=== PATIENT | female | born 1935 | race Caucasian/White ===

== ENCOUNTER 2017-08-14 22:20 | Inpatient (IN) | payer OTHER, MEDICARE ==
[~2017-08-14] VITALS: Ht 157.5 cm; Wt 55.0 kg
[~2017-08-14 22:20] MED LIST: ASPI81 PO; CHLO25CA PO; FERR324T4 PO; PRIN20TA2
[2017-08-14 22:24] VITALS: TEMP 98.6
[2017-08-14] MEDS ORDERED: ETOMIDATE 40 MG/20 ML VIAL ONE ×2 (22:38→22:39)
[2017-08-14] MEDS ORDERED: SUCCINYLCHOLINE CHLORIDE 200 MG/10 ML VIAL ONE (22:38)
[2017-08-14 22:40] VITALS: BP 101/55; PULSE 106; RESP 18; TEMP 100.2
--- NOTE | 2017-08-14 22:47 | PD ---
HPI Chief Complaint: Altered Mental Status Time Seen by Provider: 22:32 Travel History International Travel<30 days: No Contact w/Intl Traveler<30days: No Traveled to known affect area: No History of Present Illness HPI Apparently daughter went out of town for a few days and when she returned from mother laying on the bed with a urine and feces all around her. Patient is too obtunded to answer any questions currently. Per review of chart patient has a history of hypertension EtOH abuse and has had a hysterectomy and appendectomy. PFSH Past Medical History Arthritis: Yes Anxiety: Yes Diminished Hearing: No Hypertension: Yes Immunizations Current: No Past Surgical History Abdominal Surgery: Yes (COLON SX) Appendectomy: Yes Eye Surgery: Yes (CATARACT SX) Genitourinary Surgery: Yes (colon resection post diverticulitis ) Gynecologic Surgery: Yes (HYSTERECTOMY) Hysterectomy: Yes (75) Joint Replacement: No Pacemaker: No Other Surgery: Yes (breast augmentation 73 , 04) Social History Alcohol Use: Yes Tobacco Use: No Substance Use: No Allergies-Medications (Allergen,Severity, Reaction): Coded Allergies: No Known Allergies (Verified Adverse Reaction, Unknown, 08/14/17) Reported Meds & Prescriptions Reported Meds & Active Scripts Active Reported Ferrous Sulfate 325 Mg Tab 325 Mg PO BIDPC Librium (Chlordiazepoxide) 25 Mg Cap 25 Mg PO TID Aspirin 81 Mg Tab 81 Mg PO DAILY Prinivil (Lisinopril) 20 Mg Tab 20 DAILY Review of Systems ROS Limitations: Clinical Condition, Altered Mental Status Physical Exam Exam Limitations: Clinical Condition, Altered Mental Status Narrative GENERAL: SKIN: Warm and dry. HEAD: Atraumatic. Normocephalic. EYES: Pupils equal and round. No scleral icterus. No injection or drainage. ENT: No nasal bleeding or discharge. Mucous membranes pink and moist. NECK: Trachea midline. No JVD. CARDIOVASCULAR: Regular rate and rhythm. RESPIRATORY: No accessory muscle use. Clear to auscultation. Breath sounds equal bilaterally. GASTROINTESTINAL: Abdomen soft, non-tender, nondistended. Hepatic and splenic margins not palpable. MUSCULOSKELETAL: Extremities without clubbing, cyanosis, or edema. No obvious deformities. NEUROLOGICAL: Patient opens eyes to verbal, localizes pain, and verbalize her name was Renetta GCS =12. Although the patient has decreased level of awareness and is somewhat obtunded the patient is able to answer questions if properly awakened with pain. Normal speech. Data Data Last Documented VS Vital Signs Date Time Temp Pulse Resp B/P (MAP) Pulse Ox O2 Delivery O2 Flow Rate FiO2 08/15/17 00:26 104 18 125/55 (78) 95 Room Air 08/14/17 22:40 100.2 Orders Orders Sepsis Workup Initiated (08/14/17 ) Electrocardiogram (08/14/17 22:32) Complete Blood Count With Diff (08/14/17 22:32) Comprehensive Metabolic Panel (08/14/17 22:32) Prothrombin Time / Inr (Pt) (08/14/17 22:32) Act Partial Throm Time (Ptt) (08/14/17 22:32) Lactic Acid Sepsis Protocol (08/14/17 22:32) Lipase (08/14/17 22:32) Ckmb (Isoenzyme) Profile (08/14/17 22:32) Troponin I (08/14/17 22:32) Urinalysis - C+S If Indicated (08/14/17 22:32) Blood Culture (08/14/17 22:32) Chest, Single Ap (08/14/17 22:32) Blood Glucose (08/14/17 22:32) Ecg Monitoring (08/14/17 22:32) Iv Access Insert/Monitor (08/14/17 22:32) Oximetry (08/14/17 22:32) Oxygen Administration (08/14/17 22:32) Ct Brain W/O Iv Contrast(Rout) (08/14/17 22:32) Etomidate Inj (Amidate Inj) (08/14/17 22:38) Succinylcholine Inj (Quelicin Inj) (08/14/17 22:38) Etomidate Inj (Amidate Inj) (08/14/17 22:39) Ammonia (08/14/17 22:51) Osmolality,Serum (08/14/17 22:51) Urine Culture (08/14/17 22:45) CKMB (08/14/17 22:45) CKMB% (08/14/17 22:45) Sodium Chlor 0.9% 1000 Ml Inj (Ns 1000 M (08/15/17 00:15) Ceftriaxone Inj (Rocephin Inj) (08/15/17 00:15) Metronidazole 500 Mg Inj (Flagyl 500 Mg (08/15/17 00:15) Drug Screen, Random Urine (08/15/17 01:07) Alcohol (Ethanol) (08/15/17 01:07) Salicylates (Aspirin) (08/15/17 01:07) Tylenol (Acetaminophen) (08/15/17 01:07) Labs Laboratory Tests Test 08/14/17 22:45 08/14/17 23:16 White Blood Count 10.2 TH/MM3 Red Blood Count 4.37 MIL/MM3 Hemoglobin 13.8 GM/DL Hematocrit 41.6 % Mean Corpuscular Volume 95.1 FL Mean Corpuscular Hemoglobin 31.7 PG Mean Corpuscular Hemoglobin Concent 33.3 % Red Cell Distribution Width 14.2 % Platelet Count 304 TH/MM3 Mean Platelet Volume 7.7 FL Neutrophils (%) (Auto) 91.3 % Lymphocytes (%) (Auto) 3.3 % Monocytes (%) (Auto) 5.3 % Eosinophils (%) (Auto) 0.0 % Basophils (%) (Auto) 0.1 % Neutrophils # (Auto) 9.3 TH/MM3 Lymphocytes # (Auto) 0.3 TH/MM3 Monocytes # (Auto) 0.5 TH/MM3 Eosinophils # (Auto) 0.0 TH/MM3 Basophils # (Auto) 0.0 TH/MM3 CBC Comment DIFF FINAL Differential Comment Prothrombin Time 11.8 SEC Prothromb Time International Ratio 1.2 RATIO Activated Partial Thromboplast Time 28.7 SEC Urine Color YELLOW Urine Turbidity HAZY Urine pH 5.0 Urine Specific [place] 1.007 Urine Protein TRACE mg/dL Urine Glucose (UA) NEG mg/dL Urine Ketones TRACE mg/dL Urine Occult Blood MOD Urine Nitrite NEG Urine Bilirubin NEG Urine Urobilinogen LESS THAN 2.0 MG/DL Urine Leukocyte Esterase NEG Urine RBC 2 /hpf Urine WBC 1 /hpf Urine Squamous Epithelial Cells <1 /hpf Urine Amorphous Sediment RARE Urine Bacteria RARE /hpf Urine Hyaline Casts 7 /lpf Urine Mucus FEW /lpf Microscopic Urinalysis Comment CATH-CULTURE IND Blood Urea Nitrogen 52 MG/DL Creatinine 3.39 MG/DL Random Glucose 177 MG/DL Total Protein 6.3 GM/DL Albumin 2.7 GM/DL Calcium Level 8.7 MG/DL Alkaline Phosphatase 84 U/L Aspartate Amino Transf (AST/SGOT) 118 U/L Alanine Aminotransferase (ALT/SGPT) 43 U/L Total Bilirubin 0.5 MG/DL Sodium Level 141 MEQ/L Potassium Level 5.1 MEQ/L Chloride Level 103 MEQ/L Carbon Dioxide Level 17.7 MEQ/L Anion Gap 20 MEQ/L Estimat Glomerular Filtration Rate 13 ML/MIN Lactic Acid Level 6.3 mmol/L Total Creatine Kinase 3855 U/L Creatine Kinase MB 113.6 NG/ML Creatine Kinase MB % 2.9 % Troponin I 0.21 NG/ML Lipase 34 U/L Serum Osmolality 317 MOSM/KG Ammonia 15 MCMOL/L [facility] Medical Decision Making Medical Screen Exam Complete: Yes Emergency Medical Condition: Yes Medical Record Reviewed: Yes Interpretation(s) EKG shows sinus tachycardia, 115 bpm, normal intervals, with some ST depressions versus the child some type of pattern on the lateral leads Differential Diagnosis Hepatic encephalopathy versus intracranial hemorrhage versus sepsis versus electrolyte abnormalities versus anemia versus atypical non-STEMI versus atypical STEMI Narrative Course CBC does not show any evidence of leukocytosis no anemia or platelet count however the neutrophils are elevated at 91% coagulation profile is within normal limits. Urinalysis shows mild evidence of a UTI. Additional information shown on the UA shows occult blood on the urine strip on the urine RBC of 2 which is consistent with rhabdo. Patient has evidence of renal insufficiency with a BUN of 52 and a creatinine of 3.39 GFR 13 random glucose of 177 serum osmolality is 317 lactic acid is 6.3 LFTs AST is 118 ALT is 43 patient's total CPK is 3855 ammonia is negative CK-MB percent is 2.9 troponin percent is 0.21 with normal lipase. Critical Care Narrative CRITICAL CARE NOTE: With evaluation of the patient, labs, EKG, receipt of radiologic studies, administration of medications, reevaluation the patient and discussion of the patient with the admitting physicians, the total critical care time was [30] minutes. Time to perform other separately billable procedures was not included in the critical care time. Diagnosis Primary Impression: AMS Additional Impressions: Acute renal failure Early rhabdoMYOLYSIS Non-STEMI Lactic acidosis Admitting Information Admitting Physician Requests: Admit Toñito Huerta MD Aug 14, 2017 22:47
--- NOTE | 2017-08-14 22:54 | RADRPT ---
EXAM DATE/TIME: 08/14/2017 22:52 [facility] COMPARISON: No previous studies available for comparison. INDICATIONS : Short of breath MEDICAL HISTORY : None. SURGICAL HISTORY : None. ENCOUNTER: Initial ACUITY: 1 day PAIN SCORE: Non-responsive. LOCATION: chest FINDINGS: A single view of the chest demonstrates mild basilar density, probably atelectasis. No effusion. No p neumothorax. CONCLUSION: 1. Minimal basilar atelectasis. No effusion or pneumothorax. Esau Martell MD on August 14, 2017 at 22:52 Board Certified Radiologist. This report was verified electronically.
--- NOTE | 2017-08-14 23:13 | RADRPT ---
EXAM DATE/TIME: 08/14/2017 22:54 [facility] COMPARISON: CT BRAIN W/O CONTRAST, August 19, 2009, 21:22. INDICATIONS : Altered mental status. RADIATION DOSE: 56.35 CTDIvol (mGy) MEDICAL HISTORY : Non-responsive. SURGICAL HISTORY : Non-responsive. ENCOUNTER: Initial ACUITY: 1 day PAIN SCALE: Non-responsive LOCATION: cranial TECHNIQUE: Multiple contiguous axial images were obtained of the head. Using automated exposure control and adj ustment of the mA and/or kV according to patient size, radiation dose was kept as low as reasonably a chievable to obtain optimal diagnostic quality images. DICOM format image data is available electro nically for review and comparison. FINDINGS: There is no evidence for intracranial hemorrhage, mass effect, mass lesions, edema, or extra-axial fl uid collections. The visualized bony structures appear intact. The ventricles are normal size for t he patient's age. There are no signs of acute infarction for technique. Slight degree of brain atrop hy is seen. Slight periventricular white matter changes are seen nonspecific mostly consistent with c hronic small vessel ischemic changes. CONCLUSION: Unremarkable study. Josseline Villagomez MD on August 14, 2017 at 23:11 Board Certified Radiologist. This report was verified electronically.
[2017-08-14 23:19] LABS: INTERNATIONAL NORMALIZED RATIO 1.2 RATIO; PROTHROMBIN TIME - PATIENT 11.8 SEC (9.8-11.6)
[2017-08-14 23:22] LABS: AMORPHOUS SEDIMENT, URINE RARE; AUTOMATED NEUTROPHIL # 9.3 TH/MM3 (1.8-7.7); BACTERIA, URINE RARE /hpf; BASOPHIL % 0.1 % (0.0-2.0); BILIRUBIN, URINE NEG (NEG); BLOOD, URINE MOD (NEG); GLUCOSE,URINE NEG (NEG); HEMATOCRIT 41.6 % (35.0-46.0); HEMOGLOBIN 13.8 GM/DL (11.6-15.3); HYALINE CAST, URINE 7 /lpf (RARE); KETONE, URINE TRACE mg/dL (NEG); LYMPH % 3.3 % (9.0-44.0); LYMPHOCYTE # 0.3 TH/MM3 (1.0-4.8); MEAN CELL VOLUME 95.1 FL (80.0-100.0); MEAN CORPUSCULAR HEMOGLOBIN 31.7 PG (27.0-34.0); MEAN CORPUSCULAR HGB CONC 33.3 % (32.0-36.0); MEAN PLATELET VOLUME 7.7 FL (7.0-11.0); MONO % 5.3 % (0.0-8.0); MONOCYTE # 0.5 TH/MM3 (0-0.9); MUCUS URINE FEW /lpf (OCC); NEUT % 91.3 % (16.0-70.0); NITRITE,URINE NEG (NEG); PLATELET COUNT 304 TH/MM3 (150-450); RED BLOOD COUNT 4.37 MIL/MM3 (4.00-5.30); RED CELL DISTRIBUTION WIDTH 14.2 % (11.6-17.2); SQUAMOUS EPITHELIAL CELL URINE <1 /hpf (0-5); URINE COLOR YELLOW (YELLW/STRAW); URINE LEUKOCYTE ESTERASE NEG (NEG); WHITE BLOOD COUNT 10.2 TH/MM3 (4.0-11.0)
[2017-08-14 23:30] LABS: ALBUMIN 2.7 GM/DL (3.4-5.0); AST (GOT) 118 U/L (15-37); BICARBONATE 17.7 MEQ/L (21.0-32.0); BLOOD UREA NITROGEN 52 MG/DL (7-18); CALCIUM 8.7 MG/DL (8.5-10.1); CHLORIDE 103 MEQ/L (98-107); CREATININE 3.39 MG/DL (0.50-1.00); GLOMERULAR FILTRATION RATE 13 ML/MIN (>89); GLUCOSE,RANDOM 177 MG/DL (74-106); SODIUM (NA) 141 MEQ/L (136-145)
[2017-08-14 23:31] LABS: ALT (GPT) 43 U/L (10-53)
[2017-08-14 23:35] LABS: LACTIC ACID SEPSIS PROTOCOL 6.3 mmol/L (0.4-2.0)
[2017-08-14 23:45] LABS: ALKALINE PHOSPHATASE 84 U/L (45-117); TOTAL BILIRUBIN ADULT 0.5 MG/DL (0.2-1.0); TOTAL PROTEIN 6.3 GM/DL (6.4-8.2); TROPONIN I 0.21 NG/ML (0.02-0.05)
[2017-08-15] VITALS (19 sets, daily range): BP systolic 72–141; BP diastolic 49–66; PULSE 99–117; RESP 16–38; TEMP 97.7–98.7; O2SAT 85–100
[2017-08-15] MEDS ORDERED: cefTRIAXone INJ 1,000 MG in SODIUM CHLORIDE 0.9% INJ 100 ML IV ONE ×2 (00:15→04:00)
[2017-08-15] MEDS ORDERED: metroNIDAZOLE 500 MG INJ 100 ML IV ONE (00:15)
[2017-08-15] MEDS ORDERED: SODIUM CHLOR 0.9% 1000 ML INJ 1,000 ML IV ONE ×4 (00:15→06:00)
[2017-08-15 01:57] LABS: ACETAMINOPHEN LESS THAN 2.0 MCG/ML (10.0-30.0)
[2017-08-15] MEDS ORDERED: SODIUM CHLOR 0.9% 1000 ML INJ 1,000 ML IV SCH (01:58)
[2017-08-15] MEDS ORDERED: THIAMINE HCL 200 MG/2 ML VIAL IM ONE (02:00)
[2017-08-15] MEDS ORDERED: NALOXONE HCL 0.4 MG/ML AMP IV PUSH PRN (02:00)
[2017-08-15] MEDS ORDERED: Vancomycin Consult Pharmacy 1 EA OTHER SCH (02:15)
--- NOTE | 2017-08-15 02:23 | HHI.HP ---
[facility] Unknown Admission Diagnosis AMS,RENAL FAILURE, EARLY RHABDO, NONSTEMI Diagnoses: Travel History International Travel<30 Days: No Contact w/Intl Traveler <30 Da: No Traveled to Known Affected Are: No History of Present Illness History from patient's daughter at the bedside, ER physician, interfere medical records. Patient's daughter went away for work out of town about 4 days ago. Usually patient lives with his daughter. She stated that patient was at her baseline on that day. Today when she came back from her trip, she found her mother in her bed, soaked in her feces. To the daughter, it looked as though the patient has been there for at least 1-2 days. Therefore she called ambulance. Daughter reported that the patient patient spoke to her although daughter on Friday and also on Friday to her son. Both times, patient was found in drank. Her 2 daughters at the bedside stated that this is patient's normal status. Whenever her daughter is out of town, she would binge drink. She was not complaining of any particular symptoms when she was on the phone with her son yesterday. Daughter also reported that patient usually gets copious diarrhea whenever she binge drinks. She does have history of irritable bowel syndrome per prior records on EMR. Patient's daughter stated that patient was prescribed Ambien about 3 weeks back. She however does not take it on a regular basis. She fears that the mother may have taken Ambien together with alcohol as well while she was away. Patient is also on Flexeril occasionally at home. She does have history of chronic neck pain and chronic sciatica. Possible sleep apnea per daughter as well. Patient is In the emergency room, patient is noted to be quite lethargic, not able to give any history at all. She is also snoring. However she is able to look into with great afterwards. She is moving her lower extremities spontaneously. Review of Systems ROS Limitations: Altered Mental Status (review of system is unreliable, only available from family), Poor Historian Except as stated in HPI: all other systems reviewed are Neg Past Family Social History Past Medical History htn sleep apnea suspected severe cramping in legs- chronic years ago was told maybe thyroid problem chronic bowel incontinence Past Surgical History rectal prolpase sx cholecystectomy hysterectomy tummy tuck breast implants - one did rupture face lift Allergies: Coded Allergies: No Known Allergies (Verified Allergy, Unknown, 08/15/17) Family History daugther- sleep apnea, thyroid nodules half sister- aneurysm brain another half another sister- mental health Social History quit smoking >34yrs ago etoh abuse - binge drinking no drugs live with daughter Physical Exam Vital Signs Vital Signs Date Time Temp Pulse Resp B/P (MAP) Pulse Ox O2 Delivery O2 Flow Rate FiO2 08/15/17 00:26 104 18 125/55 (78) 95 Room Air 08/14/17 22:40 100.2 106 18 101/55 (70) 08/14/17 22:24 98.6 Physical Exam GENERAL: This is an elderly lady, awake but unresponsive. Loud snoring. Grimaces to painful stimuli. Spontaneously moving her lower extremities. Hard of hearing. SKIN: No rashes, ecchymoses or lesions. Cool and dry. HEAD: Atraumatic. Normocephalic. No temporal or scalp tenderness. EYES: . No scleral icterus. No injection or drainage. ENT: Nose without bleeding, purulent drainage or septal hematoma.Airway patent. NECK: Trachea midline. No JVD. Stiff neck. But does have history of cervical stenosis and chronic pain. CARDIOVASCULAR: Regular rate and rhythm without murmurs, gallops, or rubs. RESPIRATORY: Clear to auscultation. Breath sounds equal bilaterally. No wheezes , rales, or rhonchi. GASTROINTESTINAL: Abdomen soft, non-tender, nondistended. No guarding. : Doe catheter in place. Drain a only about 20 cc of concentrated urine. MUSCULOSKELETAL: Extremities without clubbing, cyanosis, or edema. No calf asymmetry. NEUROLOGICAL: Lethargic, nonverbal. However looks at the interviewer when asked with great effort once in a while. Also once in a while with say short words such as "diarrhea" Laboratory Laboratory Tests Test 08/14/17 22:45 08/14/17 23:16 08/15/17 01:26 White Blood Count 10.2 Red Blood Count 4.37 Hemoglobin 13.8 Hematocrit 41.6 Mean Corpuscular Volume 95.1 Mean Corpuscular Hemoglobin 31.7 Mean Corpuscular Hemoglobin Concent 33.3 Red Cell Distribution Width 14.2 Platelet Count 304 Mean Platelet Volume 7.7 Neutrophils (%) (Auto) 91.3 Lymphocytes (%) (Auto) 3.3 Monocytes (%) (Auto) 5.3 Eosinophils (%) (Auto) 0.0 Basophils (%) (Auto) 0.1 Neutrophils # (Auto) 9.3 Lymphocytes # (Auto) 0.3 Monocytes # (Auto) 0.5 Eosinophils # (Auto) 0.0 Basophils # (Auto) 0.0 CBC Comment DIFF FINAL Differential Comment Prothrombin Time 11.8 Prothromb Time International Ratio 1.2 Activated Partial Thromboplast Time 28.7 Urine Color YELLOW Urine Turbidity HAZY Urine pH 5.0 Urine Specific [place] 1.007 Urine Protein TRACE Urine Glucose (UA) NEG Urine Ketones TRACE Urine Occult Blood MOD Urine Nitrite NEG Urine Bilirubin NEG Urine Urobilinogen LESS THAN 2.0 Urine Leukocyte Esterase NEG Urine RBC 2 Urine WBC 1 Urine Squamous Epithelial Cells <1 Urine Amorphous Sediment RARE Urine Bacteria RARE Urine Hyaline Casts 7 Urine Mucus FEW Microscopic Urinalysis Comment CATH-CULTURE IND Blood Urea Nitrogen 52 Creatinine 3.39 Random Glucose 177 Total Protein 6.3 Albumin 2.7 Calcium Level 8.7 Alkaline Phosphatase 84 Aspartate Amino Transf (AST/SGOT) 118 Alanine Aminotransferase (ALT/SGPT) 43 Total Bilirubin 0.5 Sodium Level 141 Potassium Level 5.1 Chloride Level 103 Carbon Dioxide Level 17.7 Anion Gap 20 Estimat Glomerular Filtration Rate 13 Lactic Acid Level 6.3 4.6 Total Creatine Kinase 3855 Creatine Kinase MB 113.6 Creatine Kinase MB % 2.9 Troponin I 0.21 Lipase 34 Salicylates Level 2.7 Urine Opiates Screen NEG Acetaminophen Level LESS THAN 2.0 Urine Barbiturates Screen NEG Urine Amphetamines Screen NEG Urine Benzodiazepines Screen NEG Urine Cocaine Screen NEG Urine Cannabinoids Screen NEG Ethyl Alcohol Level LESS THAN 3 Serum Osmolality 317 Ammonia 15 Date/Time Source Procedure Growth Status 08/14/17 22:45 Blood Peripheral Aerobic Blood Culture Pending Received 08/14/17 22:45 Blood Peripheral Anaerobic Blood Culture Pending Received 08/14/17 22:45 Urine Catheterized Urine Urine Culture Pending Received Result Diagram: 08/14/17224408/14/17 2245 Imaging Last 48 hours Impressions Chest X-Ray 08/15/17 0000 Signed Impressions: Service Date/Time: Tuesday, August 15, 2017 06:42 - CONCLUSION: There is prominence of the perivascular markings with crowding of the bronchovascular markings may be due to expiratory state of this radiograph, however slight interstitial process is not excluded. Josseline Villagomez MD Head CT 08/14/[id number] Signed Impressions: Service Date/Time: July 22:54 - CONCLUSION: Unremarkable study. Josseline Villagomez MD Chest X-Ray 08/14/[id number] Signed Impressions: Service Date/Time: July 22:52 - CONCLUSION: 1. Minimal basilar atelectasis. No effusion or pneumothorax. Esau Martell MD Caprini VTE Risk Assessment Caprini VTE Risk Assessment: Mod/High Risk (score >= 2) Caprini Risk Assessment Model Point Value = 1 Point Value = 2 Point Value = 3 Point Value = 5 Age 41-60 Minor surgery BMI > 25 kg/m2 Swollen legs Varicose veins or History of unexplained or recurrent spontaneous Oral contraceptives or hormone replacement Sepsis (< 1 month) Serious lung disease, including pneumonia (< 1 month) Abnormal pulmonary function Acute myocardial infarction Congestive heart failure (< 1 month) History of inflammatory bowel disease Medical patient at bed rest Age 61-74 Arthroscopic surgery Major open surgery (> 45 min) Laparoscopic surgery (> 45 min) Malignancy Confined to bed (> 72 hours) Immobilizing plaster cast Central venous access Age >= 75 History of VTE Family history of VTE Factor V Leiden Prothrombin [id number] Lupus anticoagulant Anticardiolipin antibodies Elevated serum homocysteine Heparin-induced thrombocytopenia Other congenital or acquired thrombophilia Stroke (< 1 month) Elective arthroplasty Hip, pelvis, or leg fracture Acute spinal cord injury (< 1 month) Prophylaxis Regimen Total Risk Factor Score Risk Level Prophylaxis Regimen 0-1 Low Early ambulation 2 Moderate Order ONE of the following: *Sequential Compression Device (SCD) *Heparin 5000 units SQ BID 3-4 Higher Order ONE of the following medications: *Heparin 5000 units SQ TID *Enoxaparin/Lovenox 40 mg SQ daily (WT < 150 kg, CrCl > 30 mL/min) *Enoxaparin/Lovenox 30 mg SQ daily (WT < 150 kg, CrCl > 10-29 mL/min) *Enoxaparin/Lovenox 30 mg SQ BID (WT < 150 kg, CrCl > 30 mL/min) AND/OR *Sequential Compression Device (SCD) 5 or more Highest Order ONE of the following medications: *Heparin 5000 units SQ TID (Preferred with Epidurals) *Enoxaparin/Lovenox 40 mg SQ daily (WT < 150 kg, CrCl > 30 mL/min) *Enoxaparin/Lovenox 30 mg SQ daily (WT < 150 kg, CrCl > 10-29 mL/min) *Enoxaparin/Lovenox 30 mg SQ BID (WT < 150 kg, CrCl > 30 mL/min) AND *Sequential Compression Device (SCD) Assessment and Plan Assessment and Plan 82 years old female who came in with altered mental status. Binge drinking at home for past few days. Found by family members on her bed unresponsive. Found to have acute renal failure, rhabdomyolysis, dehydration. Diarrhea in ER. However it was maintaining blood pressure in ER. She received 2.5 L fluids total in ER. Was saturating 98% on room air at the time of my exam in ER. Hospital course complicated by patient becoming hypotensive while on medical floor in view of constant diarrhea since arrival, with hypoxia of 88% on 4 L nasal cannula on medical floor. Impression: Severe dehydration Acute renal failure secondary to rhabdo and dehydration Rhabdomyolysis possible underlying sepsis possible meningitis- though clinical suspicion is low diarrhea- r/o infection lactic acid acidosis due to dehydration/rhabdo questionable unwitnessed seizure in alcoholic leading to lactic acid acidosis sudden hypoxia while on medical floor- possible PE given pt is staying home binge drinking. lying in bed past 2 days or so hypotension from fluid loss- from constant diarrhea Plan: fluid resuscitation . Patient received 2.5 L normal saline while in ER. vanco/ampi/ceftriaxone meningitic doses. Patient has neck rigidity, altered mental status. However she does have history of cervical spine degenerative disease with chronic neck pain as well. We'll follow urine culture results. Likely this would be the source. Bicarbonate drip started at 42 cc per hour while receiving bolus normal saline fluids. ABG done. Respiratory alkalosis with metabolic acidosis. Thiamine before dextrose administration. I was later called by patient's nurse around 520AM as patient's blood pressure dropped while she was on medical floor CIC. Her O2 saturation also had dropped all of a sudden. Therefore transferred to inpatient status to ICU. Give additional 2 L normal saline bolus in ICU. Hydrocortisone 100 mg IV every 8 hours. ABG stat. Reviewed. Remains to be metabolic acidosis with respiratory alkalosis. PO2 220s. This was done on nonrebreather. Taper off oxygen. chest x-ray stat. Personally reviewed. No evidence of significant pulmonary congestion although some gentle intravenous crowding is noted. Hydrocortisone 100 mg IV every 8 hours. Start pressor with neosynepinephrine Check Doe to make sure there is no blockage. Patient's abdomen is also noted to be distended now which was not really present in ER. Start heparin drip per PE protocol. Question whether patient sudden hypoxia and hypotension with tachycardia could be secondary to PE as patient is likely bedbound for past 1 or 2 days. Seizure precautions. Withdrawal precautions. DVT prophylaxis on heparin drip. GI prophylaxis on pantoprazole. Critical care time 1 hour. Discussed Condition With ER physician,, hot die picker Dr. Arellano and Dr Youngblood, patient's 2 daughters at the bedside Physician Certification 2 Midnight Certification Type: Admission for Inpatient Services Order for Inpatient Services The services are ordered in accordance with Medicare regulations or non- Medicare payer requirements, as applicable. In the case of services not specified as inpatient-only, they are appropriately provided as inpatient services in accordance with the 2-midnight benchmark. Estimated LOS (days): 5 days is the estimated time the patient will need to remain in the hospital, assuming treatment plan goals are met and no additional complications. Post-Hospital Plan: Not yet determined Nenita Santillan MD Aug 15, 2017 02:23
[2017-08-15] MEDS ORDERED: VANCOMYCIN 1,000 MG/NS 250 ML IV ONE ×2 (03:00)
[2017-08-15] MEDS ORDERED: PIPERACIL-TAZO 2.25 GM PREMIX 50 ML IV SCH (03:00)
[2017-08-15] MEDS ORDERED: AMPICILLIN INJ 2,000 MG in SODIUM CHLORIDE 0.9% INJ 100 ML IV SCH (03:00)
[2017-08-15] MEDS: SODIUM BICARBONATE 8.4% INJ 100 MEQ in DEXTROSE 5% IN WATE 1000ML INJ 1,000 ML IV SCH ×4 (04:49→18:16)
[2017-08-15] MEDS ORDERED: ATROPINE SULFATE 1 MG/10 ML SYRINGE ONE (05:34)
[2017-08-15] MEDS ORDERED: EPINEPHrine HCL (1:10,000) 1 MG/10 ML SYRINGE ONE (05:35)
[2017-08-15] MEDS ORDERED: HEPARIN-D5W 25,000 U/250 ML 250 ML IV PRN (06:00)
[2017-08-15] MEDS ORDERED: SODIUM BICARBONATE 8.4% INJ 50 MEQ/50 ML SYR IV PUSH ONE (06:00)
[2017-08-15] MEDS ORDERED: HEPARIN SODIUM - IV 10,000 UNITS/10 ML VIAL IV PUSH ONE (06:00)
[2017-08-15] MEDS ORDERED: HYDROCORTISONE SOD SUCCINATE 100 MG VIAL IV PUSH SCH (06:00)
[2017-08-15] MEDS ORDERED: NOREPINEPHRINE-DEXTROSE DRIP 250 ML IV PRN (06:00)
[2017-08-15] MEDS ORDERED: TERBUTALINE INJ 1 MG/ML AMP SQ PRN ×3 (06:00→09:00)
[2017-08-15] MEDS ORDERED: CHLORHEXIDINE GLUCONATE 2 % 1 PACK (2 CLOTHS)(extra cloths) TOPICAL PRN (06:15)
[2017-08-15] MEDS ORDERED: LORazepam 1 MG TAB PO PRN (06:30)
[2017-08-15] MEDS ORDERED: LORazepam 2 MG TAB PO PRN (06:30)
[2017-08-15] MEDS ORDERED: FLUMAZENIL 0.5 MG/5 ML VIAL IV PUSH PRN (06:30)
[2017-08-15] MEDS ORDERED: LORazepam 2 MG/ML VIAL IV PUSH PRN ×4 (06:30)
--- NOTE | 2017-08-15 06:58 | RADRPT ---
EXAM DATE/TIME: 08/15/2017 06:42 [facility] COMPARISON: CHEST SINGLE AP, August 14, 2017, 22:52. INDICATIONS : Shortness of breath. MEDICAL HISTORY : None. SURGICAL HISTORY : None. ENCOUNTER: Subsequent ACUITY: 2 days PAIN SCORE: Non-responsive. LOCATION: chest FINDINGS: Heart and mediastinum are unremarkable for technique. There is prominence of the perivascular marking s with crowding of the bronchovascular markings may be due to expiratory state of this radiograph, ho wever slight interstitial process is not excluded. CONCLUSION: There is prominence of the perivascular markings with crowding of the bronchovascular markings may be due to expiratory state of this radiograph, however slight interstitial process is not excluded. Josseline Villagomez MD on August 15, 2017 at 6:56 Board Certified Radiologist. This report was verified electronically.
[2017-08-15] MEDS ORDERED: ETOMIDATE 40 MG/20 ML VIAL ONE (07:28)
[2017-08-15] MEDS ORDERED: ETOMIDATE 20 MG/10 ML VIAL IV PUSH ONE (07:30)
[2017-08-15] MEDS: NOREPINEPHRINE-DEXTROSE DRIP 250 ML IV PRN ×2 (07:30→13:46)
[2017-08-15 08:38] LABS: BASOPHIL % 0.1 % (0.0-2.0); HEMATOCRIT 39.6 % (35.0-46.0); HEMOGLOBIN 13.5 GM/DL (11.6-15.3); LYMPH % 5.2 % (9.0-44.0); LYMPHOCYTE # 0.4 TH/MM3 (1.0-4.8); MEAN CORPUSCULAR HEMOGLOBIN 32.3 PG (27.0-34.0); MEAN PLATELET VOLUME 7.5 FL (7.0-11.0); MONO % 3.4 % (0.0-8.0); MONOCYTE # 0.3 TH/MM3 (0-0.9); NEUT % 91.3 % (16.0-70.0); PLATELET COUNT 250 TH/MM3 (150-450); RED BLOOD COUNT 4.16 MIL/MM3 (4.00-5.30); RED CELL DISTRIBUTION WIDTH 13.9 % (11.6-17.2); WHITE BLOOD COUNT 7.7 TH/MM3 (4.0-11.0)
--- NOTE | 2017-08-15 08:46 | RADRPT ---
EXAM DATE/TIME: 08/15/2017 08:15 [place] COMPARISON: CHEST SINGLE AP, August 15, 2017, 6:42. INDICATIONS : ETT tube and central line placement. MEDICAL HISTORY : None. SURGICAL HISTORY : None. ENCOUNTER: Subsequent ACUITY: 1 day PAIN SCORE: Non-responsive. LOCATION: Bilateral chest FINDINGS: ETT approximately 4 cm above the carlos. Right IJ central line with tip in the atriocaval junction. M ild persistent left basilar airspace disease. Cardiomediastinal contours are stable. Remainder of the exam is unchanged. CONCLUSION: 1. ETT and right IJ central line in good position. No pneumothorax. 2. Stable mild left lower lung zone airspace disease, presumably atelectasis. Douglas Jean MD on August 15, 2017 at 8:44 Board Certified Radiologist. This report was verified electronically.
[2017-08-15 08:52] LABS: LACTIC ACID SEPSIS PROTOCOL 3.4 mmol/L (0.4-2.0)
[2017-08-15] MEDS ORDERED: THIAMINE INJ 100 MG in SODIUM CHLORIDE 0.9% INJ 100 ML IV SCH (09:00)
[2017-08-15 09:11] LABS: ALBUMIN 2.2 GM/DL (3.4-5.0); BANDS 48 % (0-6); BICARBONATE 19.2 MEQ/L (21.0-32.0); CREATININE 2.29 MG/DL (0.50-1.00); LYMPHOCYTES 3 % (9-44); MAGNESIUM 1.9 MG/DL (1.5-2.5); MONOCYTES 3 % (0-8); NEUTROPHIL # MANUAL DIFF 7.2 TH/MM3 (1.8-7.7); PHOSPHORUS 3.8 MG/DL (2.5-4.9); POLYS (SEG NEUTROPHILS) 46 % (16-70); TOTAL BILIRUBIN ADULT 0.4 MG/DL (0.2-1.0); TOTAL PROTEIN 5.2 GM/DL (6.4-8.2)
[2017-08-15] MEDS: metroNIDAZOLE 500 MG INJ 100 ML IV SCH ×3 (09:12→20:04)
[2017-08-15] MEDS: SODIUM CHLORIDE 0.9% FLUSH 10 ML FLUSH IV FLUSH SCH ×2 (09:13→20:04)
[2017-08-15] MEDS ORDERED: PHENYLEPHRINE INJ 40 MG in DEXTROSE 5% IN WATE 500 ML INJ 496 ML IV PRN ×2 (10:00)
--- NOTE | 2017-08-15 10:14 | PD.CONS ---
Consult Service Palliative Care . Consult Requested By Dr. Santillan . Primary Care Physician Unknown . Reason for Consultation a. To assist with evaluation and management of symptoms including: altered mental status, dyspnea, anxiety. b. To assist medical decision maker(s) with: better understanding of current medical conditions; weighing benefits/burdens of medical treatment options; making medical treatment decisions. . HPI History of Present Illness Ms. Olson is an 82 year old female with past medical history of hypertension, possible sleep apnea, chronic neck pain, sciatica, alcohol abuse, arthritis, chronic rectal prolapse with bowel incontinence and anxiety. Patient presented to [facility] ER on 08/14/17 when daughter arrived home to find patient laying on the bed covered in urine and feces. She was obtunded and 911 was called. Upon arrival to the ER: * VS - 100.2, HR 104, RR 18, BP 125/55, O2 sat 95% on room air. * WBC 10.2, hgb 13.8, hct 41.6, platelets 304, neutrophils 91.3% * PT 11.8, INR 1.2, PTT 28.7 * Urinalysis: + bacteria, mucus, culture pending. * BUN 52, creatinine 3.39, glucose 177, sodium 141, potassium 5.1, chloride 103 , GFR 13 * total protein 6.3, albumin 2.7 * Alk phos 84, AST 118, ALT 43, total bilirubin 0.5 * Lactic acid 6.3 * TCK 3855, CK-MB 113.6, CK-MB 2.9% * troponin 0.21 * lipase 34 * serum osmolality 317 * ammonia 15 * CT head - unremarkable * CXR - minimal basilar atelectasis, no effusion or pneumothorax Patient was admitted for severe dehydration. acute renal failure, rhabdomyolysis , lactic acidosis, possible UTI, sepsis. Overnight she developed tachycardia, hypotension and hypoxemia. She was transferred to ICU placed on pressor support. She was started on heparin drip per PE protocol. Machine Clothing Man was consulted for hypotension, septic shock. On non-rebreather with with oxygen saturation 90% and BP 79/50. Since admission she was intubated and placed on mech vent. Palliative care was consulted to assist with further clarification of treatment goals in this critically ill patient. Function/Cognitive Trajectory Patient was living at home with daughter prior o admission. 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 She drives and cares for herself. She was intentionally eating less to try to lose weight. . Review of Systems ROS Limitations: Intubated, Hearing Impaired (wears hearing aides) Constitutional: COMPLAINS OF: Pain (chronic neck pain. ), Generalized weakness Respiratory: COMPLAINS OF: Apneas (possible sleep apnea- pt refused work up), Shortness of breath Gastrointestinal: COMPLAINS OF: Abdominal pain, Diarrhea (chronic) Musculoskeletal: COMPLAINS OF: Stiffness, Neck pain (C5-C6 fusion) Hematologic/Lymphatics: COMPLAINS OF: Bruising Psychiatric: COMPLAINS OF: Anxiety, Confusion (when daughter found her she was obtunded. ) Past Family Social History Coded Allergies: No Known Allergies (Verified Allergy, Unknown, 08/15/17) Past Medical History hypertension sleep apnea suspected - pt refused work up severe cramping in legs- chronic questionable thyroid problem chronic bowel incontinence chronic neck pain sciatica binge drinking . Past Surgical History rectal prolapse surgery cholecystectomy hysterectomy tummy tuck breast implants - one did rupture face lift EGD and colonoscopy C5-C6 fusion . Reported Medications Reported Meds & Active Scripts Active Reported Ferrous Sulfate 325 Mg Tab 325 Mg PO BIDPC - family states pt was not on ferrous sulfate Librium (Chlordiazepoxide) 25 Mg Cap 25 Mg PO TID Aspirin 81 Mg Tab 81 Mg PO DAILY Prinivil (Lisinopril) 20 Mg Tab 20 DAILY Ambien PRN HS Flexeril PRN neck/back pain . Current Medications Medications (Trade) Dose Ordered Sig/Al Route Start Time Stop Time Status Last Admin (NS Flush) 2 ml UNSCH PRN IV FLUSH 08/15/17 02:00 (NS Flush) 2 ml BID IV FLUSH 08/15/17 09:00 08/15/17 09:13 (Narcan Inj) 0.4 mg UNSCH PRN IV PUSH 08/15/17 02:00 Metronidazole 100 ml @ 100 mls/hr Q6H IV 08/15/17 08:00 08/15/17 09:12 Thiamine HCl 100 mg/Sodium Chloride 101 ml @ 101 mls/hr DAILY IV 08/15/17 09:00 Pharmacy Profile Note 0 ml @ 0 mls/hr UNSCH OTHER 08/15/17 02:15 Sodium Bicarbonate 100 meq/Dextrose 1,100 ml @ 42 mls/hr Q24H IV 08/15/17 03:00 08/15/17 04:49 (SoluCORTEF INJ) 100 mg Q8HR IV PUSH 08/15/17 06:00 08/15/17 06:05 Heparin Sodium/ Dextrose 250 ml @ 9 mls/hr TITRATE PRN IV 08/15/17 06:00 Miscellaneous Information Patient in critical care unit? Ass... [id number] 08/15/17 06:15 (Chlorhexidine 2% Cloth) 3 pack DAILY@04 TOPICAL 08/16/17 04:00 08/20/17 04:01 (Chlorhexidine 2% Cloth) 3 pack UNSCH PRN TOPICAL 08/15/17 06:15 08/20/17 06:14 (Romazicon Inj) 0.2 mg Q1M PRN IV PUSH 08/15/17 06:30 (Ativan) 1 mg Q4H PRN PO 08/15/17 06:30 (Ativan Inj) 1 mg Q4H PRN IV PUSH 08/15/17 06:30 (Ativan) 2 mg Q2H PRN PO 08/15/17 06:30 (Ativan Inj) 2 mg Q2H PRN IV PUSH 08/15/17 06:30 (Ativan Inj) 2 mg Q1H PRN IV PUSH 08/15/17 06:30 (Ativan Inj) 2 mg Q15M PRN IV PUSH 08/15/17 06:30 (Atrovent Neb) 0.5 mg Q2HR NEB PRN NEB 08/15/17 06:30 Ceftriaxone Sodium 1000 mg/ Sodium Chloride 100 ml @ 200 mls/hr Q24H IV 08/16/17 00:00 Norepinephrine Bitartrate 250 ml @ 7.5 mls/hr TITRATE PRN IV 08/15/17 07:30 Fentanyl Citrate 250 ml @ 5 mls/hr TITRATE PRN IV 08/15/17 07:30 Phenylephrine HCl 40 mg/Dextrose 500 ml @ 30 mls/hr TITRATE PRN IV 08/15/17 10:00 (Brethine Inj) 1 mg UNSCH PRN SQ 08/15/17 09:00 Family History daughter- sleep apnea, thyroid nodules. half sister- aneurysm brain another half another sister- mental health 3 children with alcohol abuse. . Substance Use Tobacco:quit smoking >34yrs ago Alcohol:etoh abuse - binge drinking Prescription med abuse: no drugs Illicits:no drugs . Psychosocial History From [place], [place]. Moved to [place] in 1968. . Lives with her daughter, Nicole in [place]. Has 3 daughters (Nicole, Chelsea, Jessica) and 1 son (Jl). 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 . Spiritual/Cultural Factors Hoahaoism david. . Living Will: Never completed Health Care Surrogate: Never completed Durable Power of Watch Commander: Never completed Health Care Surrogate(s): Patient is not currently capacitated to make her own healthcare decisions, uncertain if she will regain capacity. No written advanced directives. According to [facility] healthcare proxy decision making falls to the majority of adult children, patient has 3 daughters and 1 son. Children are in agreement that Silviaanna Luis will serve as the family spokesperson /first contact. . Documented care wishes: No written advanced directives. . Today's verbally stated goals: Patient is not currently capacitated to make her own healthcare decisions, uncertain if she will regain capacity. . Family/friends goals: Family desires continued aggressive care including FULL CODE. . Ethical and Legal Issues Patient is not currently capacitated to make her own healthcare decisions, uncertain if she will regain capacity. No written advanced directives. According to [facility] healthcare proxy decision making falls to the majority of adult children, patient has 3 daughters and 1 son. Children are in agreement that Silviaanna Luis will serve as the family spokesperson /first contact. . Physical Exam Vital Signs Date Time Temp Pulse Resp B/P (MAP) Pulse Ox O2 Delivery O2 Flow Rate FiO2 08/15/17 06:00 97.7 109 38 79/50 (60) 90 08/15/17 05:42 95 Non-Rebreather 15.00 100 08/15/17 05:28 95 15.00 100 08/15/17 05:26 90 Venturi Mask 6.00 08/15/17 05:22 88 Nasal Cannula 4.00 08/15/17 04:50 98.5 24 93/65 (74) 08/15/17 03:45 08/15/17 03:00 108 20 132/62 (85) 98 Room Air 08/15/17 00:26 104 18 125/55 (78) 95 Room Air 08/14/17 22:40 100.2 106 18 101/55 (70) 08/14/17 22:24 18 96 Room Air 08/14/17 22:24 98.6 Exam CONSTITUTIONAL/GENERAL: This is a critically ill patient, in no apparent distress. TUBES/LINES/DRAINS: ETT, OG, Central line, PIV, wrist restraints, Doe, SCDs. SKIN: No jaundice, rashes, or lesions. Ecchymoses on upper extremities. No wounds seen anteriorly. Skin temperature appropriate. Not diaphoretic. HEAD: Atraumatic. Normocephalic. EYES: Pupils equal and round and reactive. Extraocular motions intact. No scleral icterus. No injection or drainage. Fundi not examined. ENT: Hard of Hearing. Nose without bleeding or purulent drainage. Throat difficult to visualize due to tubes. NECK: Trachea midline. CARDIOVASCULAR: tachycardic, S1, S2. No JVD. RESPIRATORY/CHEST: Symmetric, unlabored respirations on vent. Clear to auscultation. GASTROINTESTINAL: Abdomen soft, distended. Tender epigastric area. Bowel sounds present. GENITOURINARY: Without palpable bladder distension. Doe catheter in place. MUSCULOSKELETAL: Extremities with edema. No mottling or clubbing. LYMPHATICS: No palpable cervical or supraclavicular adenopathy. NEUROLOGICAL: Awakens to voice/ exam. Appears anxious. Moves all extremities. PSYCHIATRIC: appears anxious when awake. . Diagnostic Tests Laboratory Laboratory Tests Test 08/14/17 22:45 08/14/17 23:16 08/15/17 01:26 08/15/17 02:28 White Blood Count 10.2 TH/MM3 (4.0-11.0) Red Blood Count 4.37 MIL/MM3 (4.00-5.30) Hemoglobin 13.8 GM/DL (11.6-15.3) Hematocrit 41.6 % (35.0-46.0) Mean Corpuscular Volume 95.1 FL (80.0-100.0) Mean Corpuscular Hemoglobin 31.7 PG (27.0-34.0) Mean Corpuscular Hemoglobin Concent 33.3 % (32.0-36.0) Red Cell Distribution Width 14.2 % (11.6-17.2) Platelet Count 304 TH/MM3 (150-450) Mean Platelet Volume 7.7 FL (7.0-11.0) Neutrophils (%) (Auto) 91.3 % (16.0-70.0) Lymphocytes (%) (Auto) 3.3 % (9.0-44.0) Monocytes (%) (Auto) 5.3 % (0.0-8.0) Eosinophils (%) (Auto) 0.0 % (0.0-4.0) Basophils (%) (Auto) 0.1 % (0.0-2.0) Neutrophils # (Auto) 9.3 TH/MM3 (1.8-7.7) Lymphocytes # (Auto) 0.3 TH/MM3 (1.0-4.8) Monocytes # (Auto) 0.5 TH/MM3 (0-0.9) Eosinophils # (Auto) 0.0 TH/MM3 (0-0.4) Basophils # (Auto) 0.0 TH/MM3 (0-0.2) CBC Comment DIFF FINAL Differential Comment Prothrombin Time 11.8 SEC (9.8-11.6) Prothromb Time International Ratio 1.2 RATIO Activated Partial Thromboplast Time 28.7 SEC (24.3-30.1) Urine Color YELLOW (YELLW/STRAW) Urine Turbidity HAZY (CLEAR) Urine pH 5.0 (5.0-8.5) Urine Specific [place] 1.007 (1.002-1.035) Urine Protein TRACE mg/dL (NEG-TRACE) Urine Glucose (UA) NEG mg/dL (NEG) Urine Ketones TRACE mg/dL (NEG) Urine Occult Blood MOD (NEG) Urine Nitrite NEG (NEG) Urine Bilirubin NEG (NEG) Urine Urobilinogen LESS THAN 2.0 MG/DL (LESS Urine Leukocyte Esterase NEG (NEG) Urine RBC 2 /hpf (0-3) Urine WBC 1 /hpf (0-5) Urine Squamous Epithelial Cells <1 /hpf (0-5) Urine Amorphous Sediment RARE Urine Bacteria RARE /hpf (NONE) Urine Hyaline Casts 7 /lpf (RARE) Urine Mucus FEW /lpf (OCC) Microscopic Urinalysis Comment CATH-CULTURE IND Blood Urea Nitrogen 52 MG/DL (7-18) Creatinine 3.39 MG/DL (0.50-1.00) Random Glucose 177 MG/DL (74-106) Total Protein 6.3 GM/DL (6.4-8.2) Albumin 2.7 GM/DL (3.4-5.0) Calcium Level 8.7 MG/DL (8.5-10.1) Alkaline Phosphatase 84 U/L (45-117) Aspartate Amino Transf (AST/SGOT) 118 U/L (15-37) Alanine Aminotransferase (ALT/SGPT) 43 U/L (10-53) Total Bilirubin 0.5 MG/DL (0.2-1.0) Sodium Level 141 MEQ/L (136-145) Potassium Level 5.1 MEQ/L (3.5-5.1) Chloride Level 103 MEQ/L (98-107) Carbon Dioxide Level 17.7 MEQ/L (21.0-32.0) Anion Gap 20 MEQ/L (5-15) Estimat Glomerular Filtration Rate 13 ML/MIN (>89) Lactic Acid Level 6.3 mmol/L (0.4-2.0) 4.6 mmol/L (0.4-2.0) Total Creatine Kinase 3855 U/L (26-192) Creatine Kinase MB 113.6 NG/ML (0.5-3.6) Creatine Kinase MB % 2.9 % (0.0-4.0) Troponin I 0.21 NG/ML (0.02-0.05) Lipase 34 U/L (73-393) Salicylates Level 2.7 MG/DL (2.8-20.0) Urine Opiates Screen NEG (NEG) Acetaminophen Level LESS THAN 2.0 MCG/ML Urine Barbiturates Screen NEG (NEG) Urine Amphetamines Screen NEG (NEG) Urine Benzodiazepines Screen NEG (NEG) Urine Cocaine Screen NEG (NEG) Urine Cannabinoids Screen NEG (NEG) Ethyl Alcohol Level LESS THAN 3 MG/DL (0-5) Serum Osmolality 317 MOSM/KG (275-295) Ammonia 15 MCMOL/L (11-32) Stool C. difficile Toxin (PCR) NEGATIVE (NEGATIVE) Stl C. difficile Toxin Epiderm 027 PRESUMPTIVE NEGATIVE Test 08/15/17 03:00 08/15/17 06:00 08/15/17 06:18 08/15/17 08:15 Blood Gas Puncture Site RT RADIAL Blood Gas Patient Temperature 98.6 Blood Gas HCO3 13 mmol/L (22-26) 16 mmol/L (22-26) Blood Gas Base Excess -10.8 mmol/L (-2-2) -9.0 mmol/L (-2-2) Blood Gas Oxygen Saturation 92 % (90-100) 97 % (90-100) Arterial Blood pH 7.40 (7.380-7.420) 7.34 (7.380-7.420) Arterial Blood Partial Pressure CO2 21 mmHg (38-42) 30 mmHg (38-42) Arterial Blood Partial Pressure O2 69 mmHG (61-120) 224 mmHg (61-120) Arterial Blood Oxygen Content 16.2 Vol % (12.0-20.0) 16.6 Vol % (12.0-20.0) Arterial Blood Carboxyhemoglobin 1.2 % (0-4) 0.3 % (0-4) Arterial Blood Methemoglobin 0.6 % (0-2) 1.3 % (0-2) Blood Gas Hemoglobin 12.6 G/DL (12.0-16.0) 11.8 G/DL (12.0-16.0) Blood Gas Inspired Oxygen 21 % White Blood Count 7.7 TH/MM3 (4.0-11.0) Red Blood Count 4.16 MIL/MM3 (4.00-5.30) Hemoglobin 13.5 GM/DL (11.6-15.3) Hematocrit 39.6 % (35.0-46.0) Mean Corpuscular Volume 95.0 FL (80.0-100.0) Mean Corpuscular Hemoglobin 32.3 PG (27.0-34.0) Mean Corpuscular Hemoglobin Concent 34.0 % (32.0-36.0) Red Cell Distribution Width 13.9 % (11.6-17.2) Platelet Count 250 TH/MM3 (150-450) Mean Platelet Volume 7.5 FL (7.0-11.0) Neutrophils (%) (Auto) 91.3 % (16.0-70.0) Lymphocytes (%) (Auto) 5.2 % (9.0-44.0) Monocytes (%) (Auto) 3.4 % (0.0-8.0) Eosinophils (%) (Auto) 0.0 % (0.0-4.0) Basophils (%) (Auto) 0.1 % (0.0-2.0) Neutrophils # (Auto) 7.0 TH/MM3 (1.8-7.7) Lymphocytes # (Auto) 0.4 TH/MM3 (1.0-4.8) Monocytes # (Auto) 0.3 TH/MM3 (0-0.9) Eosinophils # (Auto) 0.0 TH/MM3 (0-0.4) Basophils # (Auto) 0.0 TH/MM3 (0-0.2) CBC Comment AUTO DIFF Differential Total Cells Counted 100 Neutrophils % (Manual) 46 % (16-70) Band Neutrophils % 48 % (0-6) Lymphocytes % 3 % (9-44) Monocytes % 3 % (0-8) Neutrophils # (Manual) 7.2 TH/MM3 (1.8-7.7) Differential Comment FINAL DIFF MANUAL Platelet Estimate NORMAL (NORMAL) Platelet Morphology Comment NORMAL (NORMAL) Red Cell Morphology Comment NORMAL (NORMAL) Blood Urea Nitrogen 48 MG/DL (7-18) Creatinine 2.29 MG/DL (0.50-1.00) Random Glucose 170 MG/DL (74-106) Total Protein 5.2 GM/DL (6.4-8.2) Albumin 2.2 GM/DL (3.4-5.0) Calcium Level 7.0 MG/DL (8.5-10.1) Phosphorus Level 3.8 MG/DL (2.5-4.9) Magnesium Level 1.9 MG/DL (1.5-2.5) Alkaline Phosphatase 68 U/L (45-117) Aspartate Amino Transf (AST/SGOT) 134 U/L (15-37) Alanine Aminotransferase (ALT/SGPT) 47 U/L (10-53) Total Bilirubin 0.4 MG/DL (0.2-1.0) Sodium Level 145 MEQ/L (136-145) Potassium Level 4.0 MEQ/L (3.5-5.1) Chloride Level 114 MEQ/L (98-107) Carbon Dioxide Level 19.2 MEQ/L (21.0-32.0) Anion Gap 12 MEQ/L (5-15) Estimat Glomerular Filtration Rate 20 ML/MIN (>89) Lactic Acid Level 3.4 mmol/L (0.4-2.0) Protein Corrected Calcium 8.0 MG/DL (8.5-10.1) Total Creatine Kinase 4636 U/L (26-192) Troponin I 0.17 NG/ML (0.02-0.05) Test 08/15/17 09:05 Blood Gas Puncture Site RT RADIAL Blood Gas Patient Temperature 98.6 Blood Gas HCO3 15 mmol/L (22-26) Blood Gas Base Excess -10.3 mmol/L (-2-2) Blood Gas Oxygen Saturation 96 % (90-100) Arterial Blood pH 7.31 (7.380-7.420) Arterial Blood Partial Pressure CO2 30 mmHg (38-42) Arterial Blood Partial Pressure O2 117 mmHg (61-120) Arterial Blood Oxygen Content 19.0 Vol % (12.0-20.0) Arterial Blood Carboxyhemoglobin 0.3 % (0-4) Arterial Blood Methemoglobin 1.3 % (0-2) Blood Gas Hemoglobin 14.0 G/DL (12.0-16.0) Oxygen Delivery Device VENTILATOR Blood Gas Ventilator Setting PRVC14/350/1.0/+5 Blood Gas Inspired Oxygen 100 % Result Diagram: 08/15/17 0815 08/15/17 0815 Microbiology Microbiology Date/Time Source Procedure Growth Status 08/14/17 22:45 Blood Peripheral Aerobic Blood Culture Pending Received 08/14/17 22:45 Blood Peripheral Anaerobic Blood Culture Pending Received 08/14/17 22:40 Blood Peripheral Aerobic Blood Culture Pending Received 08/14/17 22:40 Blood Peripheral Anaerobic Blood Culture Pending Received 08/15/17 02:28 Stool Stool Pending Received 08/14/17 22:45 Urine Catheterized Urine Urine Culture Pending Received Imaging Last Impressions Chest X-Ray 08/15/17 0000 Signed Impressions: Service Date/Time: Tuesday, August 15, 2017 08:15 - CONCLUSION: 1. ETT and right IJ central line in good position. No pneumothorax. 2. Stable mild left lower lung zone airspace disease, presumably atelectasis. Douglas Jean MD Head CT 08/14/17 2232 Signed Impressions: Service Date/Time: July 22:54 - CONCLUSION: Unremarkable study. KStepan Villagomez MD . Procedures * 08/15/17 - right IJ central line. Patient/Family Conference Present at Family Conference: Met with 2 (Chelsea and Nicole) of 3 daughters, granddaughter and son (briefly) . Pito present during portions of my visit nurse, RT, Dr. Essie Corea, Dr. Mcwilliams , charge nurse and Dr. Whitlock. Family Conference Time (mins): 90 Family Conference Location: Bedside Issues Discussed: * Palliative care role, purpose, approach * Additional medical, psychosocial, and spiritual history * Patients general health, functional status, and cognitive changes in the months leading up to the current hospitalization * Patient/family understanding of the current medical problems * Patient/family understanding of prognosis * Patients goals of care as best understood from advance directives and/or conversations and/or values * Current medical treatment options and benefits/burdens of those options * Likely scenarios comparing ongoing aggressive care with a transition to comfort measures only * Questions answered to the best of my ability * Palliative care contact information provided Goals are aggressive including FULL CODE for now. Family indicates patient would not want prolonged life support. At this point we will need additional information to determine overall prognosis. Will plan to meet family on Friday to provide medical update. Family in agreement that Silvia Andersen" will serve as contact acid plant operator helper/ spokesperson for the family. . Assessment and Plan Disease Oriented Problem List: (1) Acute respiratory failure (2) Acute renal failure (3) Rhabdomyolysis (4) Septic shock (5) Tachycardia (6) Hypotension (7) UTI (urinary tract infection) (8) Alcohol abuse Symptom Scale: (1) Pain 0-10 Scale: Unable to quantify (2) Dyspnea 0-10 Scale: Unable to quantify (3) Altered mental status 0-10 Scale: Unable to quantify (4) Anxiety 0-10 Scale: Unable to quantify Pertinent Non-Medical Issues Psychosocial: Spiritual: Legal: Ethical issues impacting care: Important Contacts * Silvia Andersen" Meller, daughter/ 1st contact: [phone] * Jl Olson, son: or [phone] * Jessica, daughter: [phone] * Chelsea, daughter: [phone] . Prognosis Ms. Olson is an 82 year old admitted with rhabdomyolysis, septic shock uncertain etiology, dehydration, renal failure. At this point we will need additional information to determine overall prognosis. Given her advanced age, she remain high risk for further setbacks or decline. . Code Status: Full Code Plan * Patient is not currently capacitated to make her own healthcare decisions, uncertain if she will regain capacity. No written advanced directives. According to [place] statute healthcare proxy decision making falls to the majority of adult children, patient has 3 daughters and 1 son. Children are in agreement that Silvia Luis will serve as the family spokesperson /first contact ([phone]) * FULL CODE. * Goals are aggressive including FULL CODE for now. Family indicates patient would not want prolonged life support. At this point we will need additional information to determine overall prognosis. Will plan to meet family on Friday to provide medical update. Family in agreement that Silvia Andersen" will serve as contact acid plant operator helper/ spokesperson for the family. Offered family meeting Friday08/18/17 to provide medical update as we await test results. * SYMPTOMS: Altered mental status: seems to be improving. Dyspnea: on mech vent. Pain: potential sources include intubation, chronic neck pain, infection , etc. Currently on Fentanyl drip. Anxiety: appears anxious when awake nurse attempting to give Lorazepam, will monitor effect. * Palliative care number provided. * Palliative care will continue to throughout hospital course to assist with clarification of goals. Thank you for the opportunity to participate in the care of Ms. Olson. Attestation To help prompt me to consider important information that might be impacting today's encounter and assessment, information from prior notes written by myself or my colleagues may have been "brought forward" into today's note. My signature on this note, however, is an attestation that I personally performed the exam, history, and/or decision-making noted today, and, unless otherwise indicated, the interactions with patient, family, and staff as well as the review of records all occurred today. I also attest that the listed assessment and stated plan reflect my best clinical judgment today based on the combination of historical information, prior notes, and today's exam/ interactions. When time spent is documented, it refers only to time spent today by the signer, or if indicated, combined time spent today by collaborating physician/nurse practitioner. Vashti Riley Aug 15, 2017 10:14
[2017-08-15] MEDS ORDERED: DEXTROSE 50% IN WATER 50 ML VIAL(D50) IV PUSH PRN (10:15)
[2017-08-15] MEDS ORDERED: GLUCAGON 1 MG/ML VIAL OTHER PRN (10:15)
--- NOTE | 2017-08-15 10:23 | PD.PROCEDR ---
Central Line Procedure REASON FOR PROCEDURE Central venous access PROCEDURE PERFORMED Central line placement: Right IJ CVP CONSENT Informed consent for procedure was obtained . The risks and benefits of the procedure were discussed to include but limited to bleeding, clot formation, infection, and even . ANESTHESIA Local injection of 1% Lidocaine DESCRIPTION OF THE PROCEDURE The patient was placed in supine, mild Trendelenburg position. The area was exposed and cleansed with ChloraPrep, times two. Large sterile drape was used to cover the patient, with the site exposed, under sterile conditions including cap, face mask, sterile gown, and sterile gloves. On single attempt, the introducer needle was inserted with negative pressure in syringe and venous flash was obtained. The guide wire was then advanced without any restriction and the needle was removed. The dilator was used without any complications. Using Seldinger technique the catheter was advanced over the guide wire to a depth of 20 centimeters. The guide wire was removed. All ports were aspirated with dark venous blood return and flushed easily with sterile saline. All ports were capped. Antibiotic disc was placed around central line at puncture site. The central line was secured to the skin with two interrupted 2.0 silk sutures. The area was bandaged with sterile see-through central line bandage. RADIOLOGICAL DATA Ultrasound guidance was used to locate right IJ vein. CXR post line placement showed line is in good position, no PTX. COMPLICATIONS: No apparent complications ESTIMATED BLOOD LOSS: Less than 1 cc. Don Youngblood MD Aug 15, 2017 10:23
--- NOTE | 2017-08-15 11:38 | MB ---
cc: ROXANE MCCOY M.D. DATE OF CONSULTATION: 08/15/2017. REASON FOR CONSULTATION: HISTORY OF PRESENT ILLNESS: The patient is an 82-year-old female with past medical history of irritable bowel syndrome, hypertension, arthritis, diverticulitis who presented to the [facility] Emergency Department after she was found lying on her bed with urine and feces all around her bed. In addition, the patient was altered and obtunded. Most of the history was obtained from reviewing the medical records. Her laboratory data showed acute renal failure with BUN of 52, creatinine 3.39 and lactic acidosis with a lactic acid level of 6.3. In addition, the patient was in rhabdomyolysis with elevated CK at 3855. She was admitted under the hospitalist service; however, a HaliCAT was called due to worsening mental status, hypertension and hypoxemia. She was transferred to [facility] [place] and critical care medicine was consulted for critical care management. When seen, the patient was lethargic, not following any commands, hypotensive. She was subsequently intubated by myself and a right internal jugular central line was placed for hemodynamic monitoring. ABG post intubation showed a pH of 7.31, co2 of 30, pA02 of 117, bicarbonate 15 and saturation of 96% on PRVC rate of 14, tidal volume 350 with IT1, PEEP 5 and FIO2 of 100%. The patient was given a two liter boluses of normal saline and placed on a bicarbonate drip. Her lactic acid level is trending down and is currently 3.4 from 6.3 on arrival. In addition, her renal function is improving with IV hydration. Her creatinine level is 2.29 from 3.39. Due to hypotension, Levophed was started. A CT scan of the brain in the emergency department was unremarkable. Her initial chest x-ray showed minimal basilar atelectasis, no effusions or pneumothoraces. According to the patient's family, the patient has been intermittently binge drinking. In addition, they report her having diarrhea for a few days. She had a low-grade fever with a temperature of 100.2 last night. PAST MEDICAL HISTORY: Her past medical history is significant for: 1. Arthritis. 2. Anxiety disorder. 3. Hypertension. PAST SURGICAL HISTORY: 1. Previous cataract surgery. 2. Previous colon resection post diverticulitis. 3. Previous hysterectomy. SOCIAL HISTORY: Intermittent binge drinking. No tobacco use. ALLERGIES: NO KNOWN DRUG ALLERGIES. FAMILY HISTORY: Noncontributory to the present illness. REPORTED MEDICATIONS: 1. Ferrous sulfate. 2. Aspirin. 3. Prinivil. 4. Librium. REVIEW OF SYSTEMS: The review of systems is as per the history of present illness, and the rest of the review of systems is limited due to the patient's underlying mental status. PHYSICAL EXAMINATION: GENERAL: An 82-year-old female intubated and placed on full mechanical ventilation. VITAL SIGNS: Temperature 100.2, pulse of 114, blood pressure 104/57 on Levophed. Saturation 100%. VENT SETTINGS: PRVC, rate of 14, tidal volume 350, I-time 1, PEEP 5, FIO2 100%. HEAD, EYES, EARS, NOSE, THROAT: Normocephalic and atraumatic. Pupils equal, round and reactive to light and accommodation. Extraocular muscles intact. Conjunctivae are pink. Nonicteric sclerae. Oral mucosa within normal limits. NECK: The neck is supple. No jugular venous distention, adenopathy or thyromegaly. Trachea in the midline. CARDIOVASCULAR: Tachycardic. Normal S1-S2. No murmurs, rubs or gallops noted. PULMONARY: Bilateral equal air entry. No rales or wheezing. ABDOMEN: The abdomen is soft. Mild tenderness on palpation. Positive bowel sounds. EXTREMITIES: No cyanosis, clubbing. Nonpitting edema. NEUROLOGIC: Intubated. LABORATORY DATA: Repeat labs from this morning: Sodium 145, potassium 4, chloride 114, C02 19, BUN 48, creatinine 2.29, glucose 170, lactic acid 3.4, corrected calcium 8, AST 134, ALT 47, alkaline phosphatase 68, total CK 4636. Troponin 0.17, trending down from 0.21. WBC 7.7, hemoglobin 13.5, hematocrit 39, platelet count 250,000 with 48 bands. RADIOGRAPHIC STUDIES: A CT scan of the brain is unremarkable. Chest x-ray showed ET tube right internal jugular central line in good position, stable mild left lower lung zone airspace disease, presumably atelectasis. IMPRESSION: 1. Acute hypoxemic respiratory failure. 2. Encephalopathy. 3. Hypotension. 4. Lactic acidemia. 5. Acute kidney injury. 6. Rhabdomyolysis. 7. Diarrhea. 8. Elevated AST likely secondary to EtOH use. 9. EtOH abuse. 10. Urinary tract infection. 11. History of hypertension. RECOMMENDATIONS: 1. Place on fentanyl infusion for sedation. 2. Monitor neuro status closely and daily sedation vacation when appropriate. 3. CT scan of the brain in the emergency department negative for acute intracranial process and her urine drug screen is negative as well. 4. Will place on thiamine, multivitamin and folic acid. 5. Given her encephalopathy and low-grade fever, will proceed with lumbar puncture and send CSF fluid for analysis and culture. 6. In addition, will obtain an EEG and will consult neurology service. 7. Her ammonia level measured at 15. 8. Continue with vent support and maintain saturations above 92%. 9. Bronchodilators in the form of DuoNeb q. 6 and will initiate intensive care unit vent bundle. 10. Continue with Levophed, monitor heart rate and blood pressure closely and maintain MAP greater than 65 mmHg. Serial lactic acid monitoring until clear. The patient received a two liter boluses of normal saline and will give an additional one liter and continue with a bicarbonate drip as ordered. 11. 2-D echocardiogram to evaluate left ventricular function and to rule out presumed wall motion abnormalities. Her troponin is trending down. 12. Monitor renal function, intake and output and avoid nephrotoxins. Renal function is improving with IV hydration. Will continue with IV fluids. Avoid nephrotoxins. 13. Keep NPO for now and place on Pepcid for GI prophylaxis. 14. Monitor liver function tests. 15. Continue with antibiotics in the form of Rocephin and Vancomycin, monitor for signs of infection, which include fever and WBCs. 16. Follow up on blood and urine cultures. 17. Infectious disease consulted by the pulmonary team. 18. Will check stool for ova and parasites. In addition, will check CT abdomen and pelvis without contrast to rule out acute abdominal process. 19. Place on sliding scale insulin with Accu-Chek for glycemic control and will check a baseline TSH level. 20. Monitor CBC. 21. GI prophylaxis with Pepcid and DVT prophylaxis with SCDs. 22. Will hold heparin as the patient will undergo lumbar puncture. 23. A right internal jugular central line placed. Case discussed with the patient's family and I updated them on her condition. MD MAXX Acevedo/MELIDA /10:26 AM /10:40 AM MTDD
--- NOTE | 2017-08-15 11:58 | PD.ID.CON ---
History of Present Illness Service ID Consult Requested By /Dr Cadet Reason for Consult Evaluation and Mment of Possible meningoencephalitis, septic shock. Primary Care Physician Unknown Diagnoses: History of Present Illness Ms. Olson is an 82 year old female with past medical history of hypertension, possible sleep apnea, chronic neck pain, sciatica, alcohol abuse, arthritis, chronic rectal prolapse with bowel incontinence and anxiety. Patients daughter reports she was away for last week (normally she lives with Mom). She checked on her mom each night. The night prior to admission patient and daughter spoke to each other and no reported fever or change in behavior etc noted. No recent bounced checks, change in behavior, fires, falls or doors left unopened or such security concerns. She was found by her daughter lying in bed. On questioning patient was not found vomiting and no seizures. But patient was found in urine and feces. With this background patient presented to [facility] ER on when daughter arrived home to find patient laying on the bed covered in urine and feces. She was obtunded and 911 was called. Upon arrival to the ER: * VS - 100.2, HR 104, RR 18, BP 125/55, O2 sat 95% on room air. * WBC 10.2, hgb 13.8, hct 41.6, platelets 304, neutrophils 91.3% * BUN 52, creatinine 3.39, glucose 177, sodium 141, potassium 5.1, chloride 103 , GFR 13 * Lactic acid 6.3 * TCK 3855, CK-MB 113.6, CK-MB 2.9% * CT head - unremarkable * CXR - minimal basilar atelectasis, no effusion or pneumothorax Patient was admitted to the [facility] Hospitalist service for severe dehydration. acute renal failure, rhabdomyolysis, lactic acidosis, possible UTI, sepsis. Overnight she developed tachycardia, hypotension and hypoxemia. She was transferred to ICU placed on pressor support. She was started on heparin drip per PE protocol. [employer] was consulted for hypotension, septic shock. On non -rebreather with with oxygen saturation 90% and BP 79/50. Since admission she was intubated and placed on mech vent. Infectious disease consulted for evaluation and M'ment of septic shock with meningoencephalitis. Review of Systems ROS Limitations: Intubated Past Family Social History Allergies: Coded Allergies: No Known Allergies (Verified Allergy, Unknown, 08/15/17) Past Medical History hypertension sleep apnea suspected - pt refused work up severe cramping in legs- chronic questionable thyroid problem chronic bowel incontinence chronic neck pain sciatica binge drinking Past Surgical History rectal prolapse surgery cholecystectomy hysterectomy tummy tuck breast implants - one did rupture face lift EGD and colonoscopy C5-C6 fusion No surgeries in last year. Reported Medications Reported Meds & Active Scripts Active Reported Ferrous Sulfate 325 Mg Tab 325 Mg PO BIDPC Librium (Chlordiazepoxide) 25 Mg Cap 25 Mg PO TID Aspirin 81 Mg Tab 81 Mg PO DAILY Prinivil (Lisinopril) 20 Mg Tab 20 DAILY Active Ordered Medications Current Medications Medications (Trade) Dose Ordered Sig/Al Route Start Time Stop Time Status Last Admin (NS Flush) 2 ml UNSCH PRN IV FLUSH 08/15/17 02:00 (NS Flush) 2 ml BID IV FLUSH 08/15/17 09:00 08/15/17 09:13 (Narcan Inj) 0.4 mg UNSCH PRN IV PUSH 08/15/17 02:00 Metronidazole 100 ml @ 100 mls/hr Q6H IV 08/15/17 08:00 08/15/17 13:08 Pharmacy Profile Note 0 ml @ 0 mls/hr UNSCH OTHER 08/15/17 02:15 Sodium Bicarbonate 100 meq/Dextrose 1,100 ml @ 100 mls/hr Q11H IV 08/15/17 03:00 08/15/17 04:49 Miscellaneous Information Patient in critical care unit? Ass... [id number] .XX 08/15/17 06:15 (Chlorhexidine 2% Cloth) 3 pack DAILY@04 TOPICAL 08/16/17 04:00 08/20/17 04:01 (Chlorhexidine 2% Cloth) 3 pack UNSCH PRN TOPICAL 08/15/17 06:15 08/20/17 06:14 (Romazicon Inj) 0.2 mg Q1M PRN IV PUSH 08/15/17 06:30 (Ativan) 1 mg Q4H PRN PO 08/15/17 06:30 (Ativan Inj) 1 mg Q4H PRN IV PUSH 08/15/17 06:30 08/15/17 13:10 (Ativan) 2 mg Q2H PRN PO 08/15/17 06:30 (Ativan Inj) 2 mg Q2H PRN IV PUSH 08/15/17 06:30 (Ativan Inj) 2 mg Q1H PRN IV PUSH 08/15/17 06:30 (Ativan Inj) 2 mg Q15M PRN IV PUSH 08/15/17 06:30 (Atrovent Neb) 0.5 mg Q2HR NEB PRN NEB 08/15/17 06:30 Ceftriaxone Sodium 1000 mg/ Sodium Chloride 100 ml @ 200 mls/hr Q24H IV 08/16/17 00:00 Norepinephrine Bitartrate 250 ml @ 7.5 mls/hr TITRATE PRN IV 08/15/17 07:30 08/15/17 13:46 Fentanyl Citrate 250 ml @ 5 mls/hr TITRATE PRN IV 08/15/17 07:30 Phenylephrine HCl 40 mg/Dextrose 500 ml @ 30 mls/hr TITRATE PRN IV 08/15/17 10:00 08/15/17 09:45 (Brethine Inj) 1 mg UNSCH PRN SQ 08/15/17 09:00 (D50w (Vial) Inj) 50 ml UNSCH PRN IV PUSH 08/15/17 10:15 (Glucagon Inj) 1 mg UNSCH PRN OTHER 08/15/17 10:15 (NovoLIN R SUPPLEMENTAL SCALE) 1 Q4H SQ 08/15/17 12:00 08/15/17 12:00 (Vitamin B1) 100 mg DAILY PO 08/15/17 12:00 08/15/17 13:07 (Theragran) 1 tab DAILY PO 08/15/17 12:00 08/15/17 13:06 (Folate) 1 mg DAILY PO 08/15/17 12:00 08/15/17 13:07 (SoluCORTEF INJ) 50 mg Q6HR IV PUSH 08/15/17 12:00 08/15/17 12:00 (Pepcid Inj) 10 mg Q12H IV PUSH 08/15/17 12:00 08/15/17 12:00 Family History daughter- sleep apnea, thyroid nodules. half sister- aneurysm brain another half another sister- mental health 3 children with alcohol abuse. Social History Tobacco:quit smoking >34yrs ago Alcohol:etoh abuse - binge drinking Prescription med abuse: no drugs Illicits:no drugs Physical Exam Vital Signs Vital Signs Date Time Temp Pulse Resp B/P (MAP) Pulse Ox O2 Delivery O2 Flow Rate FiO2 08/15/17 11:45 85 50 08/15/17 10:06 85 50 08/15/17 09:45 114 104/57 08/15/17 07:22 100 100 08/15/17 06:00 97.7 109 38 79/50 (60) 90 08/15/17 05:42 95 Non-Rebreather 15.00 100 08/15/17 05:28 95 15.00 100 08/15/17 05:26 90 Venturi Mask 6.00 08/15/17 05:22 88 Nasal Cannula 4.00 08/15/17 04:50 98.5 24 93/65 (74) 08/15/17 03:45 08/15/17 03:00 108 20 132/62 (85) 98 Room Air 08/15/17 00:26 104 18 125/55 (78) 95 Room Air 08/14/17 22:40 100.2 106 18 101/55 (70) 08/14/17 22:24 18 96 Room Air 08/14/17 22:24 98.6 Physical Exam GENERAL: This is a well-nourished, well-developed patient, in no apparent distress. SKIN: No rashes, ecchymoses or lesions. Cool and dry. HEAD: Atraumatic. Normocephalic. No temporal or scalp tenderness. EYES: Pupils equal round and reactive. Extraocular motions intact. No scleral icterus. No injection or drainage. ENT: Intubated. Throat without erythema, tonsillar hypertrophy or exudate. Uvula midline. Airway patent. NECK: Trachea midline. Supple, nontender, difficult to assess neck stiffness as patient anxious. But patient was moving her neck spontaneously. CARDIOVASCULAR: HS audible. RESPIRATORY: Clear to auscultation. Breath sounds equal bilaterally. No wheezes , rales, or rhonchi. GASTROINTESTINAL: Abdomen soft, non-tender, nondistended. MUSCULOSKELETAL: Extremities without clubbing, cyanosis, or edema. No joint tenderness, effusion, or edema noted. No calf tenderness. Negative Homans sign bilaterally. NEUROLOGICAL: Opens eyes spontaneously.Moves all 4 extremities. Psych anxious IV line sites with no e.o infection. Laboratory Laboratory Tests Test 08/14/17 22:45 2/15/18 23:16 08/15/17 01:26 08/15/17 02:28 White Blood Count 10.2 Red Blood Count 4.37 Hemoglobin 13.8 Hematocrit 41.6 Mean Corpuscular Volume 95.1 Mean Corpuscular Hemoglobin 31.7 Mean Corpuscular Hemoglobin Concent 33.3 Red Cell Distribution Width 14.2 Platelet Count 304 Mean Platelet Volume 7.7 Neutrophils (%) (Auto) 91.3 Lymphocytes (%) (Auto) 3.3 Monocytes (%) (Auto) 5.3 Eosinophils (%) (Auto) 0.0 Basophils (%) (Auto) 0.1 Neutrophils # (Auto) 9.3 Lymphocytes # (Auto) 0.3 Monocytes # (Auto) 0.5 Eosinophils # (Auto) 0.0 Basophils # (Auto) 0.0 CBC Comment DIFF FINAL Differential Comment Prothrombin Time 11.8 Prothromb Time International Ratio 1.2 Activated Partial Thromboplast Time 28.7 Urine Color YELLOW Urine Turbidity HAZY Urine pH 5.0 Urine Specific Snelling 1.007 Urine Protein TRACE Urine Glucose (UA) NEG Urine Ketones TRACE Urine Occult Blood MOD Urine Nitrite NEG Urine Bilirubin NEG Urine Urobilinogen LESS THAN 2.0 Urine Leukocyte Esterase NEG Urine RBC 2 Urine WBC 1 Urine Squamous Epithelial Cells <1 Urine Amorphous Sediment RARE Urine Bacteria RARE Urine Hyaline Casts 7 Urine Mucus FEW Microscopic Urinalysis Comment CATH-CULTURE IND Blood Urea Nitrogen 52 Creatinine 3.39 Random Glucose 177 Total Protein 6.3 Albumin 2.7 Calcium Level 8.7 Alkaline Phosphatase 84 Aspartate Amino Transf (AST/SGOT) 118 Alanine Aminotransferase (ALT/SGPT) 43 Total Bilirubin 0.5 Sodium Level 141 Potassium Level 5.1 Chloride Level 103 Carbon Dioxide Level 17.7 Anion Gap 20 Estimat Glomerular Filtration Rate 13 Lactic Acid Level 6.3 4.6 Total Creatine Kinase 3855 Creatine Kinase MB 113.6 Creatine Kinase MB % 2.9 Troponin I 0.21 Lipase 34 Salicylates Level 2.7 Urine Opiates Screen NEG Acetaminophen Level LESS THAN 2.0 Urine Barbiturates Screen NEG Urine Amphetamines Screen NEG Urine Benzodiazepines Screen NEG Urine Cocaine Screen NEG Urine Cannabinoids Screen NEG Ethyl Alcohol Level LESS THAN 3 Serum Osmolality 317 Ammonia 15 Stool C. difficile Toxin (PCR) NEGATIVE Stl C. difficile Toxin Epiderm 027 PRESUMPTIVE NEGATIVE Test 08/15/17 03:00 08/15/17 06:00 08/15/17 06:18 08/15/17 08:15 Blood Gas Puncture Site RT RADIAL Blood Gas Patient Temperature 98.6 98.6 Blood Gas HCO3 13 16 Blood Gas Base Excess -10.8 -9.0 Blood Gas Oxygen Saturation 92 97 Arterial Blood pH 7.40 7.34 Arterial Blood Partial Pressure CO2 21 30 Arterial Blood Partial Pressure O2 69 224 Arterial Blood Oxygen Content 16.2 16.6 Arterial Blood Carboxyhemoglobin 1.2 1.3 Arterial Blood Methemoglobin 0.6 0.3 Blood Gas Hemoglobin 12.6 11.8 Blood Gas Inspired Oxygen 21 Nasal Screen MRSA (PCR) MRSA NOT DETECTED White Blood Count 7.7 Red Blood Count 4.16 Hemoglobin 13.5 Hematocrit 39.6 Mean Corpuscular Volume 95.0 Mean Corpuscular Hemoglobin 32.3 Mean Corpuscular Hemoglobin Concent 34.0 Red Cell Distribution Width 13.9 Platelet Count 250 Mean Platelet Volume 7.5 Neutrophils (%) (Auto) 91.3 Lymphocytes (%) (Auto) 5.2 Monocytes (%) (Auto) 3.4 Eosinophils (%) (Auto) 0.0 Basophils (%) (Auto) 0.1 Neutrophils # (Auto) 7.0 Lymphocytes # (Auto) 0.4 Monocytes # (Auto) 0.3 Eosinophils # (Auto) 0.0 Basophils # (Auto) 0.0 CBC Comment AUTO DIFF Differential Total Cells Counted 100 Neutrophils % (Manual) 46 Band Neutrophils % 48 Lymphocytes % 3 Monocytes % 3 Neutrophils # (Manual) 7.2 Differential Comment FINAL DIFF MANUAL Platelet Estimate NORMAL Platelet Morphology Comment NORMAL Red Cell Morphology Comment NORMAL Blood Urea Nitrogen 48 Creatinine 2.29 Random Glucose 170 Total Protein 5.2 Albumin 2.2 Calcium Level 7.0 Phosphorus Level 3.8 Magnesium Level 1.9 Alkaline Phosphatase 68 Aspartate Amino Transf (AST/SGOT) 134 Alanine Aminotransferase (ALT/SGPT) 47 Total Bilirubin 0.4 Sodium Level 145 Potassium Level 4.0 Chloride Level 114 Carbon Dioxide Level 19.2 Anion Gap 12 Estimat Glomerular Filtration Rate 20 Lactic Acid Level 3.4 Protein Corrected Calcium 8.0 Total Creatine Kinase 4636 Creatine Kinase MB 89.6 Creatine Kinase MB % 1.9 Troponin I 0.17 Thyroid Stimulating Hormone 3rd Gen 1.150 Test 08/15/17 09:05 Blood Gas Puncture Site RT RADIAL Blood Gas Patient Temperature 98.6 Blood Gas HCO3 15 Blood Gas Base Excess -10.3 Blood Gas Oxygen Saturation 96 Arterial Blood pH 7.31 Arterial Blood Partial Pressure CO2 30 Arterial Blood Partial Pressure O2 117 Arterial Blood Oxygen Content 19.0 Arterial Blood Carboxyhemoglobin 0.3 Arterial Blood Methemoglobin 1.3 Blood Gas Hemoglobin 14.0 Oxygen Delivery Device VENTILATOR Blood Gas Ventilator Setting PRVC14/350/1.0/+5 Blood Gas Inspired Oxygen 100 Date/Time Source Procedure Growth Status 08/14/17 22:45 Blood Peripheral Aerobic Blood Culture - Preliminary NO GROWTH IN 1 DAY Resulted 08/14/17 22:45 Blood Peripheral Anaerobic Blood Culture - Preliminary NO GROWTH IN 1 DAY Resulted 08/15/17 02:28 Stool Stool Pending Received 08/14/17 22:45 Urine Catheterized Urine Urine Culture Pending Received Result Diagram: 08/15/17 0815 08/15/17 0815 Imaging Last Impressions Chest X-Ray 08/15/17 0000 Signed Impressions: Service Date/Time: Tuesday, August 15, 2017 08:15 - CONCLUSION: 1. ETT and right IJ central line in good position. No pneumothorax. 2. Stable mild left lower lung zone airspace disease, presumably atelectasis. Douglas Jean MD Abdomen Ultrasound 08/15/17 0000 Signed Impressions: Service Date/Time: Tuesday, August 15, 2017 10:40 - CONCLUSION: 1. No abnormality is identified to explain the clinical symptoms. There is no hydronephrosis. 2. The liver is normal in size and echotexture. Adan Machuca MD Head CT 08/14/17 2232 Signed Impressions: Service Date/Time: July 22:54 - CONCLUSION: Unremarkable study. 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 Alcohol abuse: at risk for withdrawal. Acute rhabdomyolysis: ? seizures. Acute renal failure: sepsis, prerenal, rhabdomyolysis. Recs: Change Ceftriaxone to q12hrs Vanco IV (target 15-20) Start Ampicillin IV (Listeria meningitis empiric) Start Acyclovir IV Check CSF HSV 1/2 Follow LP results to decide continuing need for meningitis coverage and meningitis dosing. MRI Brain Await Neurology input. EEG per Neuro. Follow cultures Follow clinically. covering for me this weekend. Piedad Corea MD Aug 15, 2017 11:58
[2017-08-15] MEDS: FAMOTIDINE 20 MG/2 ML VIAL IV PUSH SCH ×2 (12:00→23:12)
[2017-08-15] MEDS: INSULIN NovoLIN REGULAR SUPPLEMENTAL SCALE SQ SCH ×3 (12:00→20:00)
[2017-08-15] MEDS: HYDROCORTISONE SOD SUCCINATE 100 MG VIAL IV PUSH SCH ×3 (12:00→23:12)
--- NOTE | 2017-08-15 12:09 | RADRPT ---
EXAM DATE/TIME: 08/15/2017 10:40 [place] COMPARISON: No previous studies available for comparison. INDICATIONS : Acute kidney injury. Elevated liver function tests. MEDICAL HISTORY : Hypertension. Diverticulitis. Arthritis. Anxiety. SURGICAL HISTORY : Colon resection. Appendectomy. Hysterectomy. Bilateral cataracts removal with lens implants. Left kne e fracture. Right arm fracture. Breast augmentation. Cholecystectomy. ENCOUNTER: Initial ACUITY: 1 day PAIN SCORE: Nonresponsive. LOCATION: Abdomen. MEASUREMENTS: LIVER: 16.7 cm length COMMON DUCT: 3 mm RIGHT KIDNEY: 10.3 x 4.9 x 4.7 cm LEFT KIDNEY: 9.6 x 4.6 x 4.9 cm SPLEEN: 7.9 cm length AORTA: 2.1cm maximal FINDINGS: LIVER: Normal echotexture without focal lesion or ductal dilatation. COMMON DUCT: No intraluminal mass or stone visualized. GALLBLADDER: Surgically absent. PANCREAS: The visualized portions are within normal limits. RIGHT KIDNEY: No hydronephrosis, stone or mass. LEFT KIDNEY: No hydronephrosis, stone or mass. There is a simple cyst at the lower pole measuring 2.3 cm. SPLEEN: No focal lesion. AORTA: Non aneurysmal. IVC: Within normal limits. CONCLUSION: 1. No abnormality is identified to explain the clinical symptoms. There is no hydronephrosis. 2. The liver is normal in size and echotexture. Adan Machuca MD on August 15, 2017 at 12:04 Board Certified Radiologist. This report was verified electronically.
[2017-08-15] MEDS ORDERED: DIATRIZOATE MEGLUM/DIATRIZOATE SOD 9 ML CUP PO ONE (12:15)
[2017-08-15] MEDS ORDERED: cefTRIAXone INJ 2,000 MG in SODIUM CHLORIDE 0.9% INJ 100 ML IV SCH (13:00)
[2017-08-15] MEDS: MULTIVITAMIN TAB PO SCH (13:06)
[2017-08-15] MEDS: THIAMINE HCL 100 MG TAB PO SCH (13:07)
[2017-08-15] MEDS: FOLIC ACID 1 MG TAB PO SCH (13:07)
[2017-08-15 14:13] LABS: TROPONIN I 0.11 NG/ML (0.02-0.05)
--- NOTE | 2017-08-15 14:27 | PD.PROCEDR ---
Procedure Note Procedure REASON FOR PROCEDURE Invasive hemodynamic monitoring PROCEDURE PERFORMED Right radial arterial line placement ANESTHESIA Local injection of 1% Lidocaine DESCRIPTION OF THE PROCEDURE The patient was placed in supine position. The area was exposed and cleansed with ChloraPrep, times two. Large sterile drape was used to cover the right radial artery site, and under sterile conditions including cap, face mask, and sterile gloves. On single attempt, the introducer needle was inserted and arterial flash was obtained. The guide wire was then advanced without any restriction and the needle was removed. Using Seldinger technique the 20 G 16 cm catheter was advanced over the guide wire to a depth of 15 centimeters. The guide wire was removed. Good arterial wave form obtained. Antibiotic disc was placed around arterial line at puncture site. The central line was secured to the skin with one interrupted 2.0 silk sutures. The area was bandaged with sterile see-through central line bandage. COMPLICATIONS: No apparent complications ESTIMATED BLOOD LOSS: Less than 1 cc. Juliana Arellano MD Aug 15, 2017 14:27
--- NOTE | 2017-08-15 16:18 | PD.RAD ---
Post Procedure Progress Note Pre Procedure Diagnosis: (1) Altered mental status Post Procedure Diagnosis: (1) Altered mental status Procedure Date: Aug 15, 2017 Supervising Radiologist: Shashi Moreno Proceduralist/Assist: Yuly Lo RT(R), RT Paul(R)() Anesthesia: Local Plan of Activity Patient to Unit: Nursing Unit Patient Condition: Poor See PACS Report for procedural detail/treatment Spinal Procedure Lumbar Puncture L3-L4 Fluid Removal (CCs): 19 Fluid Description: Clear Puncture Time: 15:56 Shashi Moreno MD Aug 15, 2017 16:18
--- NOTE | 2017-08-15 16:55 | RADRPT ---
EXAM DATE/TIME: 08/15/2017 15:36 [facility] COMPARISON: No previous studies available for comparison. INDICATIONS : Patient with altered mental status in need of lumbar puncture. MEDICAL HISTORY : HTN, Chronic bowel incontinence, Sleep apnea SURGICAL HISTORY : Cholecystectomy, Rectal prolapse surgery ENCOUNTER: Initial ACUITY: 1 day PAIN SCORE: Nonresponsive. LUMBAR PUNCTURE TIME: 1556 hours FLUORO TIME: 1.2 minutes IMAGE SERIES: 2 ACCESS LEVEL: L3-4 FLUID: 19 cc of clear CSF was collected and sent to the laboratory for analysis. PROCEDURE : 1. Fluoroscopic guided lumbar puncture. The risks, benefits and alternatives to the procedure were explained and verbal and written consent w as obtained. The site was prepped in sterile fashion. Full sterile technique was used, including ca p, mask, sterile gloves and gown and a large sterile sheet. Hand hygiene and 2% chlorhexidine and/or betadine/alcohol prep was utilized per protocol for cutaneous antisepsis. The skin and subcutaneous tissues were infiltrated with local anesthetic solution. With fluoroscopic guidance the lumbar thecal sac was punctured at the level above. The fluid describ ed above was removed without difficulty. The patient tolerated the procedure well and there were no complications. CONCLUSION: 1. Uncomplicated fluoroscopically guided lumbar puncture. 2. Please note, requested opening pressures were not obtained due to technical difficulties. Shashi Moreno MD on August 15, 2017 at 16:52 Board Certified Radiologist. This report was verified electronically.
[2017-08-15 17:17] LABS: TOTAL PROTEIN,CSF 45.2 MG/DL (15.0-45.0)
[2017-08-15 17:51] LABS: RBC TUBE #4 14 /MM3; SUPERNATE COLOR TUBE #1 CLEAR (CLEAR); WBC TUBE #4 17 /MM3 (0-10)
[2017-08-15 17:52] LABS: CSF HISTIOCYTES 17 %; CSF LYMPHOCYTES 68 %; CSF MONOCYTES 13 %; CSF NEUTROPHILS 2 %
[2017-08-15] MEDS: AMPICILLIN INJ 2,000 MG in SODIUM CHLORIDE 0.9% INJ 100 ML IV SCH ×2 (18:28→23:12)
--- NOTE | 2017-08-15 18:28 | RADRPT ---
EXAM DATE/TIME: 08/15/2017 16:57 [facility] COMPARISON: No previous studies available for comparison. INDICATIONS : Altered mental status. MEDICAL HISTORY : Hypertension. SURGICAL HISTORY : Hysterectomy. Cholecystectomy. Breast augmentation. ENCOUNTER: Initial ACUITY: 1 day PAIN SCORE: 0/10 LOCATION: cranial TECHNIQUE: Multiplanar, multisequence MRI of the brain was performed without contrast. FINDINGS: There is a small lacunar infarct in left cerebellar hemisphere and in the right parietal lobe. Mild w titi matter ischemic changes. No mass effect or midline shift. No hydrocephalus. There are hypertrophic changes at the odontoid process possibly from a remote fracture or inflammator y arthropathy. Mild stenosis at the craniocervical junction. CONCLUSION: 1. 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 2. Mild stenosis in the upper cervical spine as above. Esau Martell MD on August 15, 2017 at 18:22 Board Certified Radiologist. This report was verified electronically.
[2017-08-15] MEDS: cefTRIAXone INJ 2,000 MG in SODIUM CHLORIDE 0.9% INJ 100 ML IV SCH (18:29)
[2017-08-15] MEDS: ACYCLOVIR INJ 500 MG in SODIUM CHLORIDE 0.9% INJ 100 ML IV SCH ×2 (18:29→23:12)
--- NOTE | 2017-08-15 18:58 | MG ---
cc: DI METZ M.D. Lab No: [id number] Date: 08/15/2017 Age: Sex: F Race: TECHNIQUE: This is a 17 channel EEG. DESCRIPTION: The background rhythm is generally slow in delta frequency at 3 to 4 Hz. The amplitude is about 10-20 microvolts. There is fairly prominent muscle artifact. No lateralizing features identified. No epileptiform features are seen. INTERPRETATION: Abnormal study consistent with a severe encephalopathy. MD ROXANA Schneider/MELIDA /6:45 PM /6:52 PM
[2017-08-15] MEDS: ASPIRIN 81 MG CHEW TAB OG-TUBE SCH (19:00)
[2017-08-15] MEDS: fentaNYL DRIP 250 ML IV PRN (20:00)
--- NOTE | 2017-08-15 20:41 | MB ---
cc: DI METZ M.D. DATE OF CONSULTATION: 08/15/2017. REASON FOR CONSULTATION: Mental status change. HISTORY OF PRESENT ILLNESS: Ms. Olson is a very pleasant 82-year-old woman who is normally very active. 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 Her daughters relate that she does at times tend to "binge drink". Her daughter found her on the bed in feces minimally responsive. No focal deficits were noted. The patient was given a prescription for a Ambien as well. Her daughter was concerned she might have combined that with alcohol. She since has been intubated. She was very lethargic in the emergency room. She was also found in the emergency room to have elevated lactic acid as well as elevated BUN and creatinine, which has been trending down since IV hydration. She is hypotensive as well. PAST MEDICAL HISTORY: 1. History of irritable bowel syndrome. 2. Hypertension. 3. Arthritis. 4. Diverticulitis. 5. Anxiety disorder. 6. Cataract surgery. 7. Hysterectomy. CURRENT MEDICATIONS: 1. Aspirin 81 milligrams daily. 2. Ceftriaxone. 3. Ampicillin. 4. Acyclovir. 5. Thiamine 100 milligrams daily. 6. Insulin as needed. 7. Folic acid. 8. Solu-Cortef 50 milligrams IV q. 6 hours. 9. Pepcid 10 milligrams q. 12 hours. 10. Glucagon. 11. Dextrose. 12. Phenylephrine for blood pressure management. 13. Terbutaline. 14. Flagyl. 15. Norepinephrine. 16. Fentanyl. 17. Lorazepam PRN. 18. . NEUROLOGICAL EXAMINATION: VITAL SIGNS: Blood pressure is 84/52, pulse 90, temperature is 97.7 degrees. HIGHER CORTICAL FUNCTIONS: Sedated at this time. CRANIAL NERVES: Intact. MOTOR: No focal deficits noted. IMAGING STUDIES: CT scan of the brain is within normal limits. MRI of the brain shows small lacunar infarcts left cerebellar hemisphere and right parietal lobe. LABORATORY DATA: The white count is 7700, hemoglobin 13.5, hematocrit 39%,plc is 250,000. PT is 11.8, INR 1.2, APTT 28.7. Sodium is 145, potassium 4.0,bun48, ammonia 15, creatinine is 2.29. TSH is 1.15. Tox screen on admission: Alcohol less than 3. Salicylates 2.7. Otherwise negative. Urinalysis: The pH is 5, specific gravity is 1.007. There is trace protein, trace ketones, moderate occult blood, 1 WBC present. CSF - 17 WBCs, 14 RBCs, glucose 128, protein 45.2. CSF culture is pending. HSV PCR of the CSF is pending. IMPRESSION: Metabolic encephalopathy probably from sepsis. The CSF does show a mild pleocytosis; therefore, meningoencephalitis would be in the differential. RECOMMENDATIONS: 1. Continue antibiotics, also acyclovir pending final culture results. 2. Also continue acyclovir pending the result of the CSF HSV. 3. The MRI is reviewed of the brain. There does appear to be small strokes in the left cerebellum as well as the right posterior occipital area which did appear to be positive on the diffusion images suggesting an acute event; therefore, would also recommended obtaining echocardiogram to evaluate for the possibility of endocarditis which could have caused septic emboli as a possibility as an other potential cause for the CSF pleocytosis. 4. Continue to follow blood culture results as well. MD ROXANA Schneider/MELIDA /7:08 PM /7:55 PM
--- NOTE | 2017-08-15 22:29 | EKG ---
Date Performed: 08/15/2017 Time Performed: 11:10:50 PTAGE: 82 years EKG: Sinus rhythm SEPTAL MYOCARDIAL INFARCTION , OF INDETERMINATE AGE ABNORMAL ECG PREVIOUS TRACING : 08/14/2017 22.35 Since the prior tracing, there has been no significant shah DOCTOR: Zohra Olivares Interpretating Date/Time 08/15/2017 22:27:13
[2017-08-16] VITALS (19 sets, daily range): BP systolic 63–186; BP diastolic 42–146; PULSE 85–128; RESP 13–20; TEMP 98–98.1; O2SAT 93–99
[2017-08-16] MEDS ORDERED: cefTRIAXone INJ 1,000 MG in SODIUM CHLORIDE 0.9% INJ 100 ML IV SCH ×2
--- NOTE | 2017-08-16 00:16 | EKG ---
Date Performed: 08/14/2017 Time Performed: 22:35:51 PTAGE: 82 years EKG: SINUS TACHYCARDIA SEPTAL Q WAVES ABNORMAL ECG PREVIOUS TRACING : 07/08/2013 13.22 Compared to prior tracing, rate faster and septal Q waves present DOCTOR: Zohra Olivares Interpretating Date/Time 08/16/2017 00:15:40
--- NOTE | 2017-08-16 00:49 | RADRPT ---
EXAM DATE/TIME: 08/16/2017 00:25 [facility] COMPARISON: No previous studies available for comparison. INDICATIONS : Diarrhea, bandemia. ORAL CONTRAST: Prescribed oral contrast ingested. RADIATION DOSE: 8.37 CTDIvol (mGy) MEDICAL HISTORY : Hypertension. Diverticulitis. Arthritis. SURGICAL HISTORY : Colon resection. Appendectomy. Hysterectomy. Bilateral cataracts removal with lens ENCOUNTER: Initial ACUITY: 1 day PAIN SCALE: Non-responsive LOCATION: abdomen TECHNIQUE: Volumetric scanning of the abdomen and pelvis was performed. Using automated exposure control and ad justment of the mA and/or kV according to patient size, radiation dose was kept as low as reasonably achievable to obtain optimal diagnostic quality images. DICOM format image data is available electro nically for review and comparison. FINDINGS: Small bilateral pleural effusion are seen. Slight bibasilar atelectasis and/or infiltrate is see n. There is evidence for prior cholecystectomy. Chronic vascular calcifications are present involving the aorta, iliac arteries without any significant stenosis or aneurysmal dilatations for technique w ith significant calcifications of the origin of the visceral arteries as well. There is a tiny 2 mm n onobstructing stone in the right kidney. Approximate 2.3 cm cyst is present in the left kidney. The s pleen, adrenals, pancreas appear intact. There is significant bowel wall thickening of descending col on diffusely and there is also slight thickening of the bowel wall of the terminal ileum. There is luis ziness involving the fat planes bilaterally in the region of the paracolic gutters and extends down i nto the pelvic fat planes with slight degree of anasarca. The region of the cecal valve is prominent measures 2.9 cm in size a possibility a lipoma is not excluded. CONCLUSION: 1. Abnormal thickening of the descending colonic wall and the possibility of colitis should be entert ained. There is also thickening of distal ileal wall which may be inflammatory as well. 2. There is mild anasarca with edema or inflammatory changes within the bilateral paracolic gutters e xtending down into the pelvis. 3. Small bilateral pleural effusions and bibasilar atelectasis and/or infiltrate. 4. Prominent ileocecal valve and possibility of lipoma at this site is not excluded. Josseline Villagomez MD on August 16, 2017 at 0:41 Board Certified Radiologist. This report was verified electronically.
[2017-08-16] MEDS: AMPICILLIN INJ 2,000 MG in SODIUM CHLORIDE 0.9% INJ 100 ML IV SCH ×6 (01:40→22:31)
[2017-08-16] MEDS: metroNIDAZOLE 500 MG INJ 100 ML IV SCH ×4 (01:41→20:04)
[2017-08-16] MEDS: CHLORHEXIDINE GLUCONATE 2 % 1 PACK (2 CLOTHS)(taper/protocol) TOPICAL SCH (04:00)
[2017-08-16] MEDS: INSULIN NovoLIN REGULAR SUPPLEMENTAL SCALE SQ SCH ×6 (04:00→20:03)
[2017-08-16] MEDS: cefTRIAXone INJ 2,000 MG in SODIUM CHLORIDE 0.9% INJ 100 ML IV SCH ×2 (04:04→16:00)
[2017-08-16 05:27] LABS: AUTOMATED NEUTROPHIL # 15.2 TH/MM3 (1.8-7.7); BASOPHIL % 0.2 % (0.0-2.0); EOSINOPHIL # 0.1 TH/MM3 (0-0.4); EOSINOPHIL % 0.7 % (0.0-4.0); HEMATOCRIT 35.3 % (35.0-46.0); HEMOGLOBIN 11.6 GM/DL (11.6-15.3); LYMPH % 2.5 % (9.0-44.0); LYMPHOCYTE # 0.4 TH/MM3 (1.0-4.8); MEAN CELL VOLUME 94.7 FL (80.0-100.0); MEAN CORPUSCULAR HEMOGLOBIN 31.2 PG (27.0-34.0); MEAN PLATELET VOLUME 8.1 FL (7.0-11.0); MONO % 1.7 % (0.0-8.0); MONOCYTE # 0.3 TH/MM3 (0-0.9); NEUT % 94.9 % (16.0-70.0); PLATELET COUNT 190 TH/MM3 (150-450); RED BLOOD COUNT 3.73 MIL/MM3 (4.00-5.30); RED CELL DISTRIBUTION WIDTH 14.4 % (11.6-17.2)
[2017-08-16] MEDS: ACYCLOVIR INJ 500 MG in SODIUM CHLORIDE 0.9% INJ 100 ML IV SCH ×3 (05:39→23:07)
[2017-08-16] MEDS: SODIUM BICARBONATE 8.4% INJ 100 MEQ in DEXTROSE 5% IN WATE 1000ML INJ 1,000 ML IV SCH ×4 (05:39→17:52)
[2017-08-16] MEDS: HYDROCORTISONE SOD SUCCINATE 100 MG VIAL IV PUSH SCH ×2 (05:39→17:48)
[2017-08-16 05:46] LABS: ALBUMIN 1.8 GM/DL (3.4-5.0); BICARBONATE 19.1 MEQ/L (21.0-32.0); CALCIUM 6.6 MG/DL (8.5-10.1); CREATININE 2.64 MG/DL (0.50-1.00)
[2017-08-16 05:47] LABS: CALCIUM-PROTEIN CORRECTED 7.6 MG/DL (8.5-10.1); CHOLESTEROL/ HDL RATIO 2.12 RATIO; HDL CHOLESTEROL 58.8 MG/DL (40.0-60.0); RANDOM VANCOMYCIN 7.2 COMMENT; TOTAL BILIRUBIN ADULT 0.2 MG/DL (0.2-1.0); TOTAL PROTEIN 5.1 GM/DL (6.4-8.2)
--- NOTE | 2017-08-16 07:41 | HHI.CCPN ---
Subjective Remarks/Hospital Course Patient is an 82-year-old female with past medical history of irritable bowel syndrome, hypertension, arthritis, diverticulitis who presented to the [facility] ED after she was found lying on her bed with urine and feces all around her bed. In addition, the patient was altered and obtunded. Most of the history was obtained from reviewing the medical records. Her laboratory data showed acute renal failure with BUN of 52, creatinine 3.39 and lactic acidosis with a lactic acid level of 6.3. In addition, the patient was in rhabdomyolysis with elevated CK at 3855. She was admitted under the hospitalist service; however, a [facility] was called due to worsening mental status, hypertension and hypoxemia. She was transferred to [facility] and critical care medicine was consulted for critical care management. When seen, the patient was lethargic, not following any commands, hypotensive. She was subsequently intubated by myself and a right internal jugular central line was placed for hemodynamic monitoring. ABG post intubation showed a pH of 7.31, co2 of 30, pA02 of 117, bicarbonate 15 and saturation of 96% on PRVC rate of 14, tidal volume 350 with IT:1, PEEP 5 and FIO2 of 100%. She was given two liter boluses of normal saline and placed on a bicarbonate drip. Her lactic acid level is trending down and is currently 3.4 from 6.3 on arrival. In addition, her renal function is improving with IV hydration. Her creatinine level is 2.29 from 3.39. Due to hypotension, Levophed was started. A CT scan of the brain in the emergency department was unremarkable. Her initial chest x-ray showed minimal basilar atelectasis, no effusions or pneumothoraces. According to the patient's family, the patient has been intermittently binge drinking. In addition, they report her having diarrhea for a few days. She had a low-grade fever with a temperature of 100.2 last night. 08/16 Patient is sedated with Fentanyl drip intubated and on Levophed 5 mics. On Bicarb drip. MRI brain yesterday showed small lacunar infarcts in left cerebellar hemisphere and right parietal lobe. Lp showed clear CSF, 17 wbc. Afebrile.Renal function worse today with Cr: 2.64 from 2.29 Objective Vital Signs Date Time Temp Pulse Resp B/P (MAP) Pulse Ox O2 Delivery O2 Flow Rate FiO2 08/16/17 06:00 94 08/16/17 05:19 114/52 08/16/17 04:00 98.1 15 93 08/16/17 04:00 40 08/15/17 05:42 Non-Rebreather 15.00 Intake and Output 08/16/17 08/16/17 08/17/17 08:00 16:00 00:00 Intake Total 400 ml Output Total 100 ml Balance 300 ml Result Diagram: 08/16/17 0405 08/16/17 0405 Other Results Laboratory Tests Test 08/15/17 08:15 08/15/17 09:05 08/15/17 12:54 08/15/17 15:56 White Blood Count 7.7 TH/MM3 Red Blood Count 4.16 MIL/MM3 Hemoglobin 13.5 GM/DL Hematocrit 39.6 % Mean Corpuscular Volume 95.0 FL Mean Corpuscular Hemoglobin 32.3 PG Mean Corpuscular Hemoglobin Concent 34.0 % Red Cell Distribution Width 13.9 % Platelet Count 250 TH/MM3 Mean Platelet Volume 7.5 FL Neutrophils (%) (Auto) 91.3 % Lymphocytes (%) (Auto) 5.2 % Monocytes (%) (Auto) 3.4 % Eosinophils (%) (Auto) 0.0 % Basophils (%) (Auto) 0.1 % Neutrophils # (Auto) 7.0 TH/MM3 Lymphocytes # (Auto) 0.4 TH/MM3 Monocytes # (Auto) 0.3 TH/MM3 Eosinophils # (Auto) 0.0 TH/MM3 Basophils # (Auto) 0.0 TH/MM3 CBC Comment AUTO DIFF Differential Total Cells Counted 100 Neutrophils % (Manual) 46 % Band Neutrophils % 48 % Lymphocytes % 3 % Monocytes % 3 % Neutrophils # (Manual) 7.2 TH/MM3 Differential Comment FINAL DIFF MANUAL Platelet Estimate NORMAL Platelet Morphology Comment NORMAL Red Cell Morphology Comment NORMAL Blood Urea Nitrogen 48 MG/DL Creatinine 2.29 MG/DL Random Glucose 170 MG/DL Total Protein 5.2 GM/DL Albumin 2.2 GM/DL Calcium Level 7.0 MG/DL Phosphorus Level 3.8 MG/DL Magnesium Level 1.9 MG/DL Alkaline Phosphatase 68 U/L Aspartate Amino Transf (AST/SGOT) 134 U/L Alanine Aminotransferase (ALT/SGPT) 47 U/L Total Bilirubin 0.4 MG/DL Sodium Level 145 MEQ/L Potassium Level 4.0 MEQ/L Chloride Level 114 MEQ/L Carbon Dioxide Level 19.2 MEQ/L Anion Gap 12 MEQ/L Estimat Glomerular Filtration Rate 20 ML/MIN Lactic Acid Level 3.4 mmol/L 3.3 mmol/L Protein Corrected Calcium 8.0 MG/DL Total Creatine Kinase 4636 U/L 3950 U/L Creatine Kinase MB 89.6 NG/ML 74.9 NG/ML Creatine Kinase MB % 1.9 % 1.9 % Troponin I 0.17 NG/ML 0.11 NG/ML Thyroid Stimulating Hormone 3rd Gen 1.150 uIU/ML Blood Gas Puncture Site RT RADIAL Blood Gas Patient Temperature 98.6 Blood Gas HCO3 15 mmol/L Blood Gas Base Excess -10.3 mmol/L Blood Gas Oxygen Saturation 96 % Arterial Blood pH 7.31 Arterial Blood Partial Pressure CO2 30 mmHg Arterial Blood Partial Pressure O2 117 mmHg Arterial Blood Oxygen Content 19.0 Vol % Arterial Blood Carboxyhemoglobin 0.3 % Arterial Blood Methemoglobin 1.3 % Blood Gas Hemoglobin 14.0 G/DL Oxygen Delivery Device VENTILATOR Blood Gas Ventilator Setting PRVC14/350/1.0/+5 Blood Gas Inspired Oxygen 100 % Activated Partial Thromboplast Time 37.3 SEC CSF Volume (Tube 1) 4.0 ML CSF Supernatant Color (tube 1) CLEAR CSF Gross Blood (Tube 1) TRACE CSF Volume (Tube 2) 4.0 ML CSF Supernatant Color (tube 2) CLEAR CSF Gross Blood (Tube 2) 0 CSF Volume (Tube 3) 4.0 ML CSF Supernatant Color (tube 3) CLEAR CSF Volume (Tube 4) 7.0 ML CSF Supernatant Color (tube 4) CLEAR CSF WBC (Tube 4) 17 /MM3 CSF RBC (Tube 4) 14 /MM3 CSF Neutrophils 2 % CSF Lymphocytes 68 % CSF Monocytes 13 % CSF Histiocytes 17 % CSF Glucose 128 MG/DL CSF Total Protein 45.2 MG/DL Test 08/15/17 18:25 08/16/17 04:05 Troponin I 0.07 NG/ML White Blood Count 16.0 TH/MM3 Red Blood Count 3.73 MIL/MM3 Hemoglobin 11.6 GM/DL Hematocrit 35.3 % Mean Corpuscular Volume 94.7 FL Mean Corpuscular Hemoglobin 31.2 PG Mean Corpuscular Hemoglobin Concent 33.0 % Red Cell Distribution Width 14.4 % Platelet Count 190 TH/MM3 Mean Platelet Volume 8.1 FL Neutrophils (%) (Auto) 94.9 % Lymphocytes (%) (Auto) 2.5 % Monocytes (%) (Auto) 1.7 % Eosinophils (%) (Auto) 0.7 % Basophils (%) (Auto) 0.2 % Neutrophils # (Auto) 15.2 TH/MM3 Lymphocytes # (Auto) 0.4 TH/MM3 Monocytes # (Auto) 0.3 TH/MM3 Eosinophils # (Auto) 0.1 TH/MM3 Basophils # (Auto) 0.0 TH/MM3 CBC Comment AUTO DIFF Blood Urea Nitrogen 50 MG/DL Creatinine 2.64 MG/DL Random Glucose 202 MG/DL Total Protein 5.1 GM/DL Albumin 1.8 GM/DL Calcium Level 6.6 MG/DL Alkaline Phosphatase 69 U/L Aspartate Amino Transf (AST/SGOT) 100 U/L Alanine Aminotransferase (ALT/SGPT) 47 U/L Total Bilirubin 0.2 MG/DL Sodium Level 140 MEQ/L Potassium Level 4.2 MEQ/L Chloride Level 109 MEQ/L Carbon Dioxide Level 19.1 MEQ/L Anion Gap 12 MEQ/L Estimat Glomerular Filtration Rate 17 ML/MIN Protein Corrected Calcium 7.6 MG/DL Triglycerides Level 77 MG/DL Cholesterol Level 125 MG/DL LDL Cholesterol 51 MG/DL HDL Cholesterol 58.8 MG/DL Cholesterol/HDL Ratio 2.12 RATIO Random Vancomycin Level 7.2 COMMENT Imaging Last Impressions Lumbar Puncture Fluoroscopy 08/15/17 0000 Signed Impressions: Service Date/Time: Tuesday, August 15, 2017 15:36 - CONCLUSION: 1. Uncomplicated fluoroscopically guided lumbar puncture. 2. Please note, requested opening pressures were not obtained due to technical difficulties. Shashi Moreno MD Chest X-Ray 08/15/17 0000 Signed Impressions: Service Date/Time: Tuesday, August 15, 2017 08:15 - CONCLUSION: 1. ETT and right IJ central line in good position. No pneumothorax. 2. Stable mild left lower lung zone airspace disease, presumably atelectasis. Douglas Jean MD Brain MRI 08/15/17 0000 Signed Impressions: Service Date/Time: Tuesday, August 15, 2017 16:57 - CONCLUSION: 1. 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 2. Mild stenosis in the upper cervical spine as above. Esau Martell MD Abdomen/Pelvis CT 08/15/17 0000 Signed Impressions: Service Date/Time: Wednesday, August 16, 2017 00:25 - CONCLUSION: 1. Abnormal thickening of the descending colonic wall and the possibility of colitis should be entertained. There is also thickening of distal ileal wall which may be inflammatory as well. 2. There is mild anasarca with edema or inflammatory changes within the bilateral paracolic gutters extending down into the pelvis. 3. Small bilateral pleural effusions and bibasilar atelectasis and/or infiltrate. 4. Prominent ileocecal valve and possibility of lipoma at this site is not excluded. Josseline Villagomez MD Abdomen Ultrasound 08/15/17 0000 Signed Impressions: Service Date/Time: Tuesday, August 15, 2017 10:40 - CONCLUSION: 1. No abnormality is identified to explain the clinical symptoms. There is no hydronephrosis. 2. The liver is normal in size and echotexture. Adan Machuca MD Head CT 08/14/172 Signed Impressions: Service Date/Time: July 22:54 - CONCLUSION: Unremarkable study. Josseline Villagomez MD Objective Remarks GENERAL: Patient is 82 yo critically ill intubated and sedated SKIN: Warm and dry. HEAD: Normocephalic. EYES: No scleral icterus. No injection or drainage. NECK: Supple, trachea midline. No JVD or lymphadenopathy. Orally intubated CARDIOVASCULAR: Regular rate and rhythm without murmurs, gallops, or rubs. RESPIRATORY: Breath sounds equal bilaterally. No accessory muscle use. GASTROINTESTINAL: Abdomen soft, non-tender, nondistended. MUSCULOSKELETAL: No cyanosis, or edema. Neuro: sedated, intubated A/P Assessment and Plan 1. VDRF 2. Encephalopathy. 3. Small lacunar infarcts 4. Lactic acidemia. 5. Acute kidney injury. 6. Rhabdomyolysis. 7. Diarrhea. 8. Elevated AST likely secondary to EtOH use. 9. EtOH abuse. 10. Urinary tract infection. 11. History of hypertension. Plan Neuro: On fentanyl infusion for sedation. Daily sedation vacation. Monitor neuro status. 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 Neuro is following- Dr. Danielle LP showed clear CSF, 17 WBC, TP:45.2 Pulm: Continue with vent support and maintain sats> 92%. Bronchodilators, ICU vent bundle. CV: Wean off Levophed, monitor HR and BP and maintain MAP>65 mmHg. Serial lactic acid monitoring until clear. For 2D echo today. Her troponin is trending down. Decrease hydrocortisone 50mg IV Q12 :Monitor renal function, intake and output and avoid nephrotoxins. Cr: 2.64 today from 2.29 on D5W+2amps bicarb @75ml/hr. Monitor CK's Renal eval. US abdomen: No hydronephrosis GI: On Pepcid for GI prophylaxis. Monitor LFT's( trending down) US liver: No abnormalities identified Start tube feeds- Nepro with goal rate 40ml/hr ID: Abx per ID ( Rocephin, Vanco, Ampicillin, Acyclovir) monitor for signs of infection(fever and WBCs). s/p LP showed clear CSF, 17 WBC, TP:45.2, follow up on cultures, HSV DNA PCR CT abdomen/pelvis: thickening of the descending colonic wall and the possibility of colitis should be entertained. There is also thickening of distal ileal wall which may be inflammatory as well. C-diff PCR is negative, stool studies negative Endo: Increase SSI medium with Accu-Chek for glycemic control. TSH: 1.15. Heme: Monitor CBC. GI prophylaxis with Pepcid and DVT prophylaxis with SCDs. Lines: Right IJ CVP, Right radial Art line placed 08/15 CCT 30 mins Don Youngblood MD Aug 16, 2017 07:41
[2017-08-16] MEDS ORDERED: DEXTROSE 50% IN WATER 50 ML VIAL(D50) IV PUSH PRN (08:00)
[2017-08-16] MEDS ORDERED: GLUCAGON 1 MG/ML VIAL OTHER PRN (08:00)
[2017-08-16 08:44] LABS: BANDS 54 % (0-6); LYMPHOCYTES 3 % (9-44); MONOCYTES 3 % (0-8); POLYS (SEG NEUTROPHILS) 40 % (16-70); TOXIC VACUOLATION PRESENT (NONE SEEN)
[2017-08-16] MEDS: ASPIRIN 81 MG CHEW TAB OG-TUBE SCH (08:58)
[2017-08-16] MEDS: MULTIVITAMIN TAB PO SCH (08:58)
[2017-08-16] MEDS: THIAMINE HCL 100 MG TAB PO SCH (08:58)
[2017-08-16] MEDS: FOLIC ACID 1 MG TAB PO SCH (08:58)
[2017-08-16] MEDS: SODIUM CHLORIDE 0.9% FLUSH 10 ML FLUSH IV FLUSH SCH ×2 (08:59→20:04)
[2017-08-16] MEDS: fentaNYL DRIP 250 ML IV PRN (09:13)
[2017-08-16] MEDS ORDERED: VANCOMYCIN 1,000 MG/NS 250 ML IV ONE ×2 (10:00)
[2017-08-16] MEDS: FAMOTIDINE 20 MG/2 ML VIAL IV PUSH SCH ×2 (12:18→22:31)
--- NOTE | 2017-08-16 13:18 | PD.CONS ---
HPI Service Nephrology Consult Requested By Dr. Youngblood Reason for Consult Acute renal failure Primary Care Physician Unknown History of Present Illness Patient is a 82-year-old the white female with history of irritable bowel syndrome, diverticulitis who was found in the bed covered with feces, currently with her daughter who stated that she does have his bouts of diarrhea on and off has rectal prolapse, she not have kidney problems to her knowledge, stays active but creatinine was high at 3.3 with hydration it declined to 2.2 and today is 2.6 CT of the abdomen showed tiny stones 2 mm and right kidney nonobstructing. Patient is intubated per daughter she is responding Review of Systems ROS Limitations: Clinical Condition Past Family Social History Allergies: Coded Allergies: No Known Allergies (Verified Allergy, Unknown, 08/15/17) Past Medical History Hypertension sleep apnea suspected severe cramping in legs- chronic thyroid problem chronic bowel incontinence irritable bowel syndrome Past Surgical History rectal prolpase sx cholecystectomy hysterectomy tummy tuck breast implants - one did rupture face lift Reported Medications Reported Meds & Active Scripts Active Reported Ferrous Sulfate 325 Mg Tab 325 Mg PO BIDPC Librium (Chlordiazepoxide) 25 Mg Cap 25 Mg PO TID Aspirin 81 Mg Tab 81 Mg PO DAILY Prinivil (Lisinopril) 20 Mg Tab 20 DAILY Active Ordered Medications Current Medications Medications (Trade) Dose Ordered Sig/Al Route Start Time Stop Time Status Last Admin (NS Flush) 2 ml UNSCH PRN IV FLUSH 08/15/17 02:00 (NS Flush) 2 ml BID IV FLUSH 08/15/17 09:00 08/16/17 08:59 (Narcan Inj) 0.4 mg UNSCH PRN IV PUSH 08/15/17 02:00 Metronidazole 100 ml @ 100 mls/hr Q6H IV 08/15/17 08:00 08/16/17 08:59 Pharmacy Profile Note 0 ml @ 0 mls/hr UNSCH OTHER 08/15/17 02:15 Sodium Bicarbonate 100 meq/Dextrose 1,100 ml @ 75 mls/hr [id number] IV 08/15/17 03:00 08/16/17 05:39 Miscellaneous Information Patient in critical care unit? Ass... [id number] .XX 08/15/17 06:15 08/15/17 06:15 (Chlorhexidine 2% Cloth) 3 pack DAILY@04 TOPICAL 08/16/17 04:00 08/20/17 04:01 08/16/17 04:00 (Chlorhexidine 2% Cloth) 3 pack UNSCH PRN TOPICAL 08/15/17 06:15 08/20/17 06:14 (Romazicon Inj) 0.2 mg Q1M PRN IV PUSH 08/15/17 06:30 (Atrovent Neb) 0.5 mg Q2HR NEB PRN NEB 08/15/17 06:30 Norepinephrine Bitartrate 250 ml @ 7.5 mls/hr TITRATE PRN IV 08/15/17 07:30 08/15/17 07:30 Fentanyl Citrate 250 ml @ 5 mls/hr TITRATE PRN IV 08/15/17 07:30 08/16/17 09:13 (Brethine Inj) 1 mg UNSCH PRN SQ 08/15/17 09:00 (Vitamin B1) 100 mg DAILY PO 08/15/17 12:00 08/16/17 08:58 (Theragran) 1 tab DAILY PO 08/15/17 12:00 08/16/17 08:58 (Folate) 1 mg DAILY PO 08/15/17 12:00 08/16/17 08:58 (Pepcid Inj) 10 mg Q12H IV PUSH 08/15/17 12:00 08/16/17 12:18 Ceftriaxone Sodium 2000 mg/ Sodium Chloride 100 ml @ 200 mls/hr Q12H IV 08/15/17 16:00 08/16/17 04:04 Ampicillin Sodium 2000 mg/Sodium Chloride 100 ml @ 400 mls/hr Q4H IV 08/15/17 15:00 08/16/17 11:00 Acyclovir Sodium 500 mg/Sodium Chloride 100 ml @ 100 mls/hr Q8H IV 08/15/17 15:00 08/16/17 05:39 (Aspirin Chew) 81 mg DAILY OG-TUBE 08/15/17 19:00 08/16/17 08:58 (SoluCORTEF INJ) 50 mg Q12H IV PUSH 08/16/17 18:00 (D50w (Vial) Inj) 50 ml UNSCH PRN IV PUSH 08/16/17 08:00 (Glucagon Inj) 1 mg UNSCH PRN OTHER 08/16/17 08:00 (NovoLIN R SUPPLEMENTAL SCALE) 1 Q4HR SQ 08/16/17 08:00 08/16/17 08:00 Family History Noncontributory Social History Denies smoking Positive history of alcohol use Physical Exam Vital Signs Vital Signs Date Time Temp Pulse Resp B/P (MAP) Pulse Ox O2 Delivery O2 Flow Rate FiO2 08/16/17 11:56 94 40 08/16/17 10:00 92 08/16/17 08:34 94 40 08/16/17 08:00 40 08/16/17 08:00 97 08/16/17 08:00 98.0 97 20 63/48 (53) 94 128/54 (78) 08/16/17 07:00 96 122/50 08/16/17 06:00 94 08/16/17 05:19 97 114/52 08/16/17 04:00 98.1 97 15 67/42 (50) 93 120/57 (78) 08/16/17 04:00 40 08/16/17 04:00 97 08/16/17 03:43 94 40 08/16/17 02:00 101 08/16/17 00:47 94 40 08/16/17 00:00 104 08/16/17 00:00 40 08/16/17 00:00 98.2 104 16 120/50 (73) 93 08/15/17 22:00 117 08/15/17 21:28 40 08/15/17 20:34 100 40 08/15/17 20:00 112 16 72/51 (58) 141/56 (84) 08/15/17 20:00 112 08/15/17 17:28 94 40 08/15/17 17:27 94 100 08/15/17 16:00 98.6 105 24 90/51 (64) 100 08/15/17 14:55 103 96/79 08/15/17 14:45 92 122/87 08/15/17 14:35 93 126/82 08/15/17 14:25 93 120/104 08/15/17 14:15 91 162/61 08/15/17 14:05 91 89/50 18 13:55 91 87/52 18 13:46 90 84/52 08/15/17 13:35 97 85/50 08/15/17 13:34 97 85/50 08/15/17 13:25 95 84/51 08/15/17 13:15 96 100/57 08/15/17 13:05 96 83/53 Physical Exam GENERAL: Well-nourished, well-developed patient. Intubated SKIN: Warm and dry. HEAD: Normocephalic. EYES: No scleral icterus. No injection or drainage. NECK: Supple, trachea midline. No JVD or lymphadenopathy. CARDIOVASCULAR: Regular rate and rhythm without murmurs, gallops, or rubs. RESPIRATORY: Breath sounds equal bilaterally. No accessory muscle use. GASTROINTESTINAL: Abdomen soft, non-tender, nondistended. EXTREMITIES: No cyanosis, or edema. NEUROLOGICAL: Under sedation on ventilator Laboratory Laboratory Tests Test 08/15/17 15:56 08/15/17 18:25 08/16/17 04:05 08/16/17 09:00 CSF Volume (Tube 1) 4.0 CSF Supernatant Color (tube 1) CLEAR CSF Gross Blood (Tube 1) TRACE CSF Volume (Tube 2) 4.0 CSF Supernatant Color (tube 2) CLEAR CSF Gross Blood (Tube 2) 0 CSF Volume (Tube 3) 4.0 CSF Supernatant Color (tube 3) CLEAR CSF Volume (Tube 4) 7.0 CSF Supernatant Color (tube 4) CLEAR CSF WBC (Tube 4) 17 CSF RBC (Tube 4) 14 CSF Neutrophils 2 CSF Lymphocytes 68 CSF Monocytes 13 CSF Histiocytes 17 CSF Glucose 128 CSF Total Protein 45.2 Troponin I 0.07 White Blood Count 16.0 Red Blood Count 3.73 Hemoglobin 11.6 Hematocrit 35.3 Mean Corpuscular Volume 94.7 Mean Corpuscular Hemoglobin 31.2 Mean Corpuscular Hemoglobin Concent 33.0 Red Cell Distribution Width 14.4 Platelet Count 190 Mean Platelet Volume 8.1 Neutrophils (%) (Auto) 94.9 Lymphocytes (%) (Auto) 2.5 Monocytes (%) (Auto) 1.7 Eosinophils (%) (Auto) 0.7 Basophils (%) (Auto) 0.2 Neutrophils # (Auto) 15.2 Lymphocytes # (Auto) 0.4 Monocytes # (Auto) 0.3 Eosinophils # (Auto) 0.1 Basophils # (Auto) 0.0 CBC Comment AUTO DIFF Differential Total Cells Counted 100 Neutrophils % (Manual) 40 Band Neutrophils % 54 Lymphocytes % 3 Monocytes % 3 Neutrophils # (Manual) 15.0 Differential Comment FINAL DIFF MANUAL Toxic Vacuolation PRESENT Platelet Estimate NORMAL Platelet Morphology Comment NORMAL Red Cell Morphology Comment NORMAL Blood Urea Nitrogen 50 Creatinine 2.64 Random Glucose 202 Total Protein 5.1 Albumin 1.8 Calcium Level 6.6 Alkaline Phosphatase 69 Aspartate Amino Transf (AST/SGOT) 100 Alanine Aminotransferase (ALT/SGPT) 47 Total Bilirubin 0.2 Sodium Level 140 Potassium Level 4.2 Chloride Level 109 Carbon Dioxide Level 19.1 Anion Gap 12 Estimat Glomerular Filtration Rate 17 Protein Corrected Calcium 7.6 Triglycerides Level 77 Cholesterol Level 125 LDL Cholesterol 51 HDL Cholesterol 58.8 Cholesterol/HDL Ratio 2.12 Random Vancomycin Level 7.2 Lactic Acid Level 2.7 Total Creatine Kinase 1828 Creatine Kinase MB 28.5 Creatine Kinase MB % 1.6 Date/Time Source Procedure Growth Status 08/14/17 22:45 Blood Peripheral Aerobic Blood Culture - Preliminary NO GROWTH IN 2 DAYS Resulted 08/14/17 22:45 Blood Peripheral Anaerobic Blood Culture - Preliminary NO GROWTH IN 2 DAYS Resulted 08/15/17 15:56 Cerebral Spinal Fluid Lumbar Puncture Gram Stain - Final Resulted 08/15/17 15:56 Cerebral Spinal Fluid Lumbar Puncture CSF Culture - Preliminary NO GROWTH IN 24 HOURS. Resulted 08/15/17 02:28 Stool Stool Cryptosporidium Exam Pending Ordered 08/15/17 02:28 Stool Stool Giardia Antigen (MARCIA) Pending Ordered 08/15/17 12:08 Sputum Endotracheal Gram Stain - Final Resulted 08/15/17 12:08 Sputum Endotracheal Sputum Culture - Preliminary HEAVY GROWTH NORMAL RESPIRATORY JARED... Resulted 08/14/17 22:45 Urine Catheterized Urine Urine Culture - Preliminary NO GROWTH IN 24 HOURS. Resulted Result Diagram: 08/16/17 0405 08/16/17 0405 Imaging Last Impressions Lumbar Puncture Fluoroscopy 08/15/17 0000 Signed Impressions: Service Date/Time: Tuesday, August 15, 2017 15:36 - CONCLUSION: 1. Uncomplicated fluoroscopically guided lumbar puncture. 2. Please note, requested opening pressures were not obtained due to technical difficulties. Shashi Moreno MD Chest X-Ray 08/15/17 0000 Signed Impressions: Service Date/Time: Tuesday, August 15, 2017 08:15 - CONCLUSION: 1. ETT and right IJ central line in good position. No pneumothorax. 2. Stable mild left lower lung zone airspace disease, presumably atelectasis. Douglas Jean MD Brain MRI 08/15/17 0000 Signed Impressions: Service Date/Time: Tuesday, August 15, 2017 16:57 - CONCLUSION: 1. 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 2. Mild stenosis in the upper cervical spine as above. Esau Martell MD Abdomen/Pelvis CT 08/15/17 0000 Signed Impressions: Service Date/Time: Wednesday, August 16, 2017 00:25 - CONCLUSION: 1. Abnormal thickening of the descending colonic wall and the possibility of colitis should be entertained. There is also thickening of distal ileal wall which may be inflammatory as well. 2. There is mild anasarca with edema or inflammatory changes within the bilateral paracolic gutters extending down into the pelvis. 3. Small bilateral pleural effusions and bibasilar atelectasis and/or infiltrate. 4. Prominent ileocecal valve and possibility of lipoma at this site is not excluded. Josseline Villagomez MD Abdomen Ultrasound 08/15/17 0000 Signed Impressions: Service Date/Time: Tuesday, August 15, 2017 10:40 - CONCLUSION: 1. No abnormality is identified to explain the clinical symptoms. There is no hydronephrosis. 2. The liver is normal in size and echotexture. Adan Machuca MD Head CT [id number] Signed Impressions: Service Date/Time: July 22:54 - CONCLUSION: Unremarkable study. Josseline Villagomez MD Assessment and Plan Problem List: (1) Acute renal failure ICD Codes: N17.9 - Acute kidney failure, unspecified Plan: Patient has underlying rhabdomyolysis and dehydration and continue to hydrate increase IV fluids 100 cc an hour monitor output Patient is getting acyclovir for possible meningitis this can cause renal failure to worsen Consider stopping it Follow BMP Follow CPK Avoid nephrotoxins Avoid dye studies Discussed with her daughter (2) Rhabdomyolysis ICD Codes: M62.82 - Rhabdomyolysis Plan: Monitor CPK (3) Acute respiratory failure ICD Codes: J96.00 - Acute respiratory failure, unspecified whether with hypoxia or hypercapnia Plan: On ventilator (4) Septic shock ICD Codes: A41.9 - Sepsis, unspecified organism; R65.21 - Severe sepsis with septic shock Plan: Stefanie Mancuso MD Aug 16, 2017 13:18
[2017-08-16] MEDS: NOREPINEPHRINE-DEXTROSE DRIP 250 ML IV PRN ×2 (14:56→22:50)
--- NOTE | 2017-08-16 16:57 | ECHRPT ---
Indication: LVEF diastolic function CONCLUSIONS The left ventricular systolic function is mildly reduced with an estimated ejection fraction in the range of 45- 50%. Wall thickness is measured at the upper limits of normal. Normal left ventricular size. technically limited study BP: 79 / 50 HR: 109 Rhythm: Sinus MEASUREMENTS (Male / Female) Normal Values Technical Quality:Fair 2D ECHO LV Diastolic Diameter PLAX 3.9 cm 4.2 - 5.9 / 3.9 - 5.3 cm LV Systolic Diameter PLAX 3.2 cm IVS Diastolic Thickness 1.1 cm 0.6 - 1.0 / 0.6 - 0.9 cm LVPW Diastolic Thickness 1.1 cm 0.6 - 1.0 / 0.6 - 0.9 cm LV Relative Wall Thickness 0.5 LVOT Diameter 1.9 cm M-MODE Aortic Root Diameter MM 2.8 cm LA Systolic Diameter MM 2.6 cm LA Ao Ratio MM 0.9 AV Cusp Separation MM 1.8 cm DOPPLER AV Peak Velocity 136.0 cm/s AV Peak Gradient 7.4 mmHg LVOT Peak Velocity 94.3 cm/s LVOT Peak Gradient 3.6 mmHg AV Area Cont Eq pk 2.0 cm Mitral E Point Velocity 75.0 cm/s Mitral A Point Velocity 110.0 cm/s Mitral E to A Ratio 0.7 LV E' Lateral Velocity 6.7 cm/s Mitral E to LV E' Lateral Ratio 11.1 LV E' Septal Velocity 6.4 cm/s Mitral E to LV E' Septal Ratio 11.7 PV Peak Velocity 105.0 cm/s PV Peak Gradient 4.4 mmHg FINDINGS LEFT VENTRICLE The left ventricular systolic function is mildly reduced with an estimated ejection fraction in the range of 45- 50%. Wall thickness is measured at the upper limits of normal. Normal left ventricular size. RIGHT VENTRICLE Normal right ventricular size and systolic function. LEFT ATRIUM The left atrial size is normal. RIGHT ATRIUM The right atrial size is normal. ATRIAL SEPTUM Normal atrial septal thickness without atrial level shunting by limited color doppler interrogation. AORTA The aortic root and proximal ascending aorta are normal in size on limited imaging. MITRAL VALVE Structurally normal mitral valve. No mitral valve stenosis or regurgitation. AORTIC VALVE Trileaflet aortic valve. No aortic valve stenosis or regurgitation. TRICUSPID VALVE Structurally normal tricuspid valve. No tricuspid valve stenosis or regurgitation. PULMONARY VALVE The pulmonary valve is not well visualized. VESSELS The inferior vena cava is normal in size. PERICARDIUM No pericardial effusion. Jacob Jayne MD, FACC, FSCAI (Electronically Signed) Final Date:16 August 2017 16:56
--- NOTE | 2017-08-16 17:38 | HHI.IDPN ---
Subjective Subjective Remarks ID X cover for Dr Corea chart reviewed 82 yo admitted with MS change LP negative for curt meningitis, however mild lymphacytic pleocytosis is present clx neg x [address] A/p showed mucosal thickening / c.diff negative + lactic acoidosis On vent BP is low Antibiotics ampicillin flagyl cftx vanco - acyclovir Allergies: Coded Allergies: No Known Allergies (Verified Allergy, Unknown, 08/15/17) Objective . Vital Signs Date Time Temp Pulse Resp B/P (MAP) Pulse Ox O2 Delivery O2 Flow Rate FiO2 08/16/17 16:39 87 101/41 08/16/17 16:34 88 101/40 08/16/17 16:27 89 87/39 08/16/17 15:45 94 109/49 08/16/17 15:34 96 40 08/16/17 14:56 99 128/87 08/16/17 14:55 99 128/87 08/16/17 14:00 90 08/16/17 12:00 40 08/16/17 12:00 97.9 90 13 66/50 (55) 98 123/59 (80) 08/16/17 12:00 90 08/16/17 11:56 94 40 08/16/17 10:00 92 08/16/17 08:34 94 40 08/16/17 08:00 40 08/16/17 08:00 97 08/16/17 08:00 98.0 97 20 63/48 (53) 94 128/54 (78) 08/16/17 07:00 96 122/50 08/16/17 06:00 94 08/16/17 05:19 97 114/52 08/16/17 04:00 98.1 97 15 67/42 (50) 93 120/57 (78) 08/16/17 04:00 40 08/16/17 04:00 97 08/16/17 03:43 94 40 08/16/17 02:00 101 08/16/17 00:47 94 40 08/16/17 00:00 104 08/16/17 00:00 40 08/16/17 00:00 98.2 104 16 120/50 (73) 93 08/15/17 22:00 117 08/15/17 21:28 40 08/15/17 20:34 100 40 08/15/17 20:00 112 16 72/51 (58) 141/56 (84) 08/15/17 20:00 112 08/15/17 17:28 94 40 08/15/17 17:27 94 100 08/16/17 08/16/17 08/17/17 15:00 23:00 07:00 Intake Total 567 ml 300 ml Balance 567 ml 300 ml Intake IV Total 567 ml 300 ml . Laboratory Tests Test 08/14/17 22:45 08/15/17 08:15 08/16/17 04:05 White Blood Count 10.2 TH/MM3 7.7 TH/MM3 16.0 TH/MM3 Red Blood Count 4.37 MIL/MM3 4.16 MIL/MM3 3.73 MIL/MM3 Hemoglobin 13.8 GM/DL 13.5 GM/DL 11.6 GM/DL Hematocrit 41.6 % 39.6 % 35.3 % Mean Corpuscular Volume 95.1 FL 95.0 FL 94.7 FL Mean Corpuscular Hemoglobin 31.7 PG 32.3 PG 31.2 PG Mean Corpuscular Hemoglobin Concent 33.3 % 34.0 % 33.0 % Red Cell Distribution Width 14.2 % 13.9 % 14.4 % Platelet Count 304 TH/MM3 250 TH/MM3 190 TH/MM3 Mean Platelet Volume 7.7 FL 7.5 FL 8.1 FL Neutrophils (%) (Auto) 91.3 % 91.3 % 94.9 % Lymphocytes (%) (Auto) 3.3 % 5.2 % 2.5 % Monocytes (%) (Auto) 5.3 % 3.4 % 1.7 % Eosinophils (%) (Auto) 0.0 % 0.0 % 0.7 % Basophils (%) (Auto) 0.1 % 0.1 % 0.2 % Neutrophils # (Auto) 9.3 TH/MM3 7.0 TH/MM3 15.2 TH/MM3 Lymphocytes # (Auto) 0.3 TH/MM3 0.4 TH/MM3 0.4 TH/MM3 Monocytes # (Auto) 0.5 TH/MM3 0.3 TH/MM3 0.3 TH/MM3 Eosinophils # (Auto) 0.0 TH/MM3 0.0 TH/MM3 0.1 TH/MM3 Basophils # (Auto) 0.0 TH/MM3 0.0 TH/MM3 0.0 TH/MM3 CBC Comment DIFF FINAL AUTO DIFF AUTO DIFF Differential Comment FINAL DIFF MANUAL FINAL DIFF MANUAL Differential Total Cells Counted 100 100 Neutrophils % (Manual) 46 % 40 % Band Neutrophils % 48 % 54 % Lymphocytes % 3 % 3 % Monocytes % 3 % 3 % Neutrophils # (Manual) 7.2 TH/MM3 15.0 TH/MM3 Platelet Estimate NORMAL NORMAL Platelet Morphology Comment NORMAL NORMAL Red Cell Morphology Comment NORMAL NORMAL Toxic Vacuolation PRESENT Laboratory Tests Test 08/14/17 22:45 08/14/17 23:16 08/15/17 01:26 08/15/17 08:15 Blood Urea Nitrogen 52 MG/DL 48 MG/DL Creatinine 3.39 MG/DL 2.29 MG/DL Random Glucose 177 MG/DL 170 MG/DL Total Protein 6.3 GM/DL 5.2 GM/DL Albumin 2.7 GM/DL 2.2 GM/DL Calcium Level 8.7 MG/DL 7.0 MG/DL Alkaline Phosphatase 84 U/L 68 U/L Aspartate Amino Transf (AST/SGOT) 118 U/L 134 U/L Alanine Aminotransferase (ALT/SGPT) 43 U/L 47 U/L Total Bilirubin 0.5 MG/DL 0.4 MG/DL Sodium Level 141 MEQ/L 145 MEQ/L Potassium Level 5.1 MEQ/L 4.0 MEQ/L Chloride Level 103 MEQ/L 114 MEQ/L Carbon Dioxide Level 17.7 MEQ/L 19.2 MEQ/L Anion Gap 20 MEQ/L 12 MEQ/L Estimat Glomerular Filtration Rate 13 ML/MIN 20 ML/MIN Lactic Acid Level 6.3 mmol/L 4.6 mmol/L 3.4 mmol/L Total Creatine Kinase 3855 U/L 4636 U/L Creatine Kinase MB 113.6 NG/ML 89.6 NG/ML Creatine Kinase MB % 2.9 % 1.9 % Troponin I 0.21 NG/ML 0.17 NG/ML Lipase 34 U/L Serum Osmolality 317 MOSM/KG Ammonia 15 MCMOL/L Phosphorus Level 3.8 MG/DL Magnesium Level 1.9 MG/DL Protein Corrected Calcium 8.0 MG/DL Thyroid Stimulating Hormone 3rd Gen 1.150 uIU/ML Test 08/15/17 12:54 08/15/17 18:25 08/16/17 04:05 08/16/17 09:00 Lactic Acid Level 3.3 mmol/L 2.7 mmol/L Total Creatine Kinase 3950 U/L 1828 U/L Creatine Kinase MB 74.9 NG/ML 28.5 NG/ML Creatine Kinase MB % 1.9 % 1.6 % Troponin I 0.11 NG/ML 0.07 NG/ML Blood Urea Nitrogen 50 MG/DL Creatinine 2.64 MG/DL Random Glucose 202 MG/DL Total Protein 5.1 GM/DL Albumin 1.8 GM/DL Calcium Level 6.6 MG/DL Alkaline Phosphatase 69 U/L Aspartate Amino Transf (AST/SGOT) 100 U/L Alanine Aminotransferase (ALT/SGPT) 47 U/L Total Bilirubin 0.2 MG/DL Sodium Level 140 MEQ/L Potassium Level 4.2 MEQ/L Chloride Level 109 MEQ/L Carbon Dioxide Level 19.1 MEQ/L Anion Gap 12 MEQ/L Estimat Glomerular Filtration Rate 17 ML/MIN Protein Corrected Calcium 7.6 MG/DL Triglycerides Level 77 MG/DL Cholesterol Level 125 MG/DL LDL Cholesterol 51 MG/DL HDL Cholesterol 58.8 MG/DL Cholesterol/HDL Ratio 2.12 RATIO Microbiology Date/Time Source Procedure Growth Status 08/14/17 22:45 Blood Peripheral Aerobic Blood Culture - Preliminary NO GROWTH IN 2 DAYS Resulted 08/14/17 22:45 Blood Peripheral Anaerobic Blood Culture - Preliminary NO GROWTH IN 2 DAYS Resulted 08/14/17 22:40 Blood Peripheral Aerobic Blood Culture - Preliminary NO GROWTH IN 2 DAYS Resulted 08/14/17 22:40 Blood Peripheral Anaerobic Blood Culture - Preliminary NO GROWTH IN 2 DAYS Resulted 08/15/17 15:56 Cerebral Spinal Fluid Lumbar Puncture Gram Stain - Final Resulted 08/15/17 15:56 Cerebral Spinal Fluid Lumbar Puncture CSF Culture - Preliminary NO GROWTH IN 24 HOURS. Resulted 08/15/17 02:28 Stool Stool Cryptosporidium Exam Pending Ordered 08/15/17 02:28 Stool Stool Giardia Antigen (MARCIA) Pending Ordered 08/15/17 02:28 Stool Stool Stool Occult Blood (MARCIA) - Final HEMOCCULT NEGATIVE Complete 08/15/17 02:28 Stool Stool - Final NO ENTERIC PATHOGENS DETECTED BY PCR... Complete 08/15/17 12:08 Sputum Endotracheal Gram Stain - Final Resulted 08/15/17 12:08 Sputum Endotracheal Sputum Culture - Preliminary HEAVY GROWTH NORMAL RESPIRATORY JARED... Resulted 08/14/17 22:45 Urine Catheterized Urine Urine Culture - Preliminary NO GROWTH IN 24 HOURS. Resulted Imaging Last Impressions Lumbar Puncture Fluoroscopy 08/15/17 0000 Signed Impressions: Service Date/Time: Tuesday, August 15, 2017 15:36 - CONCLUSION: 1. Uncomplicated fluoroscopically guided lumbar puncture. 2. Please note, requested opening pressures were not obtained due to technical difficulties. Shashi Moreno MD Chest X-Ray 08/15/17 0000 Signed Impressions: Service Date/Time: Tuesday, August 15, 2017 08:15 - CONCLUSION: 1. ETT and right IJ central line in good position. No pneumothorax. 2. Stable mild left lower lung zone airspace disease, presumably atelectasis. Douglas Jean MD Brain MRI 08/15/17 0000 Signed Impressions: Service Date/Time: Tuesday, August 15, 2017 16:57 - CONCLUSION: 1. 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 2. Mild stenosis in the upper cervical spine as above. Esau Martell MD Abdomen/Pelvis CT 08/15/17 0000 Signed Impressions: Service Date/Time: Wednesday, August 16, 2017 00:25 - CONCLUSION: 1. Abnormal thickening of the descending colonic wall and the possibility of colitis should be entertained. There is also thickening of distal ileal wall which may be inflammatory as well. 2. There is mild anasarca with edema or inflammatory changes within the bilateral paracolic gutters extending down into the pelvis. 3. Small bilateral pleural effusions and bibasilar atelectasis and/or infiltrate. 4. Prominent ileocecal valve and possibility of lipoma at this site is not excluded. Josseline Villagomez MD Abdomen Ultrasound 08/15/17 0000 Signed Impressions: Service Date/Time: Tuesday, August 15, 2017 10:40 - CONCLUSION: 1. No abnormality is identified to explain the clinical symptoms. There is no hydronephrosis. 2. The liver is normal in size and echotexture. Adan Machuca MD Head CT [id number]/14/[id number] Signed Impressions: Service Date/Time: July 22:54 - CONCLUSION: Unremarkable study. Josseline Villagomez MD Physical Exam GENERAL: This is a well-nourished, well-developed patient, in no apparent distress. SKIN: No rashes, ecchymoses or lesions. Cool and dry. HEAD: Atraumatic. Normocephalic. No temporal or scalp tenderness. EYES: Pupils equal round and reactive. Extraocular motions intact. No scleral icterus. No injection or drainage. ENT: Intubated. NECK: Trachea midline. Supple, nontender, CARDIOVASCULAR: + murmur, no gallops, rub RESPIRATORY: Clear to auscultation. Breath sounds equal bilaterally. No wheezes , rales, or rhonchi. GASTROINTESTINAL: Abdomen soft, non-tender ( no reaction to palpation), + at least moderately distended. MUSCULOSKELETAL: Extremities without clubbing, cyanosis, or edema. No joint tenderness, effusion, or edema noted. No calf tenderness. Negative Homans sign bilaterally. NEUROLOGICAL: sedated Moves all 4 extremities. Psych unable to assess IV line sites with no e.o infection. 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 Alcohol abuse: at risk for withdrawal. Acute rhabdomyolysis: ? seizures. Acute renal failure: sepsis, prerenal, rhabdomyolysis. Colitis clinically and radiologically ; c.diff negative ? ischemic Recs: Cont Ceftriaxone to q12hrs cont Vanco IV (target 15-20) cont Ampicillin IV (Listeria meningitis empiric) cont rt Acyclovir IV Check CSF HSV 1/2 Follow LP results to decide continuing need for meningitis coverage and meningitis dosing. MRI Brain GI consult Follow cultures Follow clinically. Galina Godoy MD Aug 16, 2017 17:38
[2017-08-17] VITALS (18 sets, daily range): BP systolic 137–200; BP diastolic 71–97; PULSE 97–141; RESP 12–19; TEMP 98.7–98.9; O2SAT 9–100
[2017-08-17] MEDS: INSULIN NovoLIN REGULAR SUPPLEMENTAL SCALE SQ SCH ×6 (00:08→19:57)
[2017-08-17] MEDS: metroNIDAZOLE 500 MG INJ 100 ML IV SCH ×4 (00:13→19:57)
[2017-08-17] MEDS: AMPICILLIN INJ 2,000 MG in SODIUM CHLORIDE 0.9% INJ 100 ML IV SCH ×6 (02:37→19:58)
[2017-08-17] MEDS: cefTRIAXone INJ 2,000 MG in SODIUM CHLORIDE 0.9% INJ 100 ML IV SCH ×2 (02:37→16:30)
[2017-08-17] MEDS: CHLORHEXIDINE GLUCONATE 2 % 1 PACK (2 CLOTHS)(taper/protocol) TOPICAL SCH (02:38)
[2017-08-17] MEDS: HYDROCORTISONE SOD SUCCINATE 100 MG VIAL IV PUSH SCH ×2 (04:06→17:56)
[2017-08-17] MEDS: SODIUM BICARBONATE 8.4% INJ 100 MEQ in DEXTROSE 5% IN WATE 1000ML INJ 1,000 ML IV SCH ×4 (04:07→14:54)
[2017-08-17 06:00] LABS: AUTOMATED NEUTROPHIL # 15.6 TH/MM3 (1.8-7.7); BASOPHIL % 0.1 % (0.0-2.0); HEMATOCRIT 31.2 % (35.0-46.0); HEMOGLOBIN 10.4 GM/DL (11.6-15.3); LYMPH % 2.2 % (9.0-44.0); LYMPHOCYTE # 0.4 TH/MM3 (1.0-4.8); MEAN CORPUSCULAR HEMOGLOBIN 31.4 PG (27.0-34.0); MEAN CORPUSCULAR HGB CONC 33.4 % (32.0-36.0); MONO % 2.1 % (0.0-8.0); MONOCYTE # 0.3 TH/MM3 (0-0.9); NEUT % 95.6 % (16.0-70.0); PLATELET COUNT 147 TH/MM3 (150-450); RED BLOOD COUNT 3.32 MIL/MM3 (4.00-5.30); RED CELL DISTRIBUTION WIDTH 14.3 % (11.6-17.2); WHITE BLOOD COUNT 16.3 TH/MM3 (4.0-11.0)
[2017-08-17 06:35] LABS: ALBUMIN 1.8 GM/DL (3.4-5.0); BICARBONATE 23.1 MEQ/L (21.0-32.0); CALCIUM 6.5 MG/DL (8.5-10.1); CREATININE 2.82 MG/DL (0.50-1.00); MAGNESIUM 1.7 MG/DL (1.5-2.5)
[2017-08-17] MEDS: ACYCLOVIR INJ 500 MG in SODIUM CHLORIDE 0.9% INJ 100 ML IV SCH ×3 (06:39→22:25)
[2017-08-17 06:48] LABS: PHOSPHORUS 2.5 MG/DL (2.5-4.9); TOTAL BILIRUBIN ADULT 0.2 MG/DL (0.2-1.0); TOTAL PROTEIN 5.5 GM/DL (6.4-8.2)
[2017-08-17 07:18] LABS: CALCIUM-PROTEIN CORRECTED 7.3 MG/DL (8.5-10.1)
--- NOTE | 2017-08-17 07:44 | HHI.CCPN ---
Subjective Remarks/Hospital Course Patient is an 82-year-old female with past medical history of irritable bowel syndrome, hypertension, arthritis, diverticulitis who presented to the [facility] ED after she was found lying on her bed with urine and feces all around her bed. In addition, the patient was altered and obtunded. Most of the history was obtained from reviewing the medical records. Her laboratory data showed acute renal failure with BUN of 52, creatinine 3.39 and lactic acidosis with a lactic acid level of 6.3. In addition, the patient was in rhabdomyolysis with elevated CK at 3855. She was admitted under the hospitalist service; however, a [facility]CAT was called due to worsening mental status, hypertension and hypoxemia. She was transferred [place] [facility] and critical care medicine was consulted for critical care management. When seen, the patient was lethargic, not following any commands, hypotensive. She was subsequently intubated by myself and a right internal jugular central line was placed for hemodynamic monitoring. ABG post intubation showed a pH of 7.31, co2 of 30, pA02 of 117, bicarbonate 15 and saturation of 96% on PRVC rate of 14, tidal volume 350 with IT:1, PEEP 5 and FIO2 of 100%. She was given two liter boluses of normal saline and placed on a bicarbonate drip. Her lactic acid level is trending down and is currently 3.4 from 6.3 on arrival. In addition, her renal function is improving with IV hydration. Her creatinine level is 2.29 from 3.39. Due to hypotension, Levophed was started. A CT scan of the brain in the emergency department was unremarkable. Her initial chest x-ray showed minimal basilar atelectasis, no effusions or pneumothoraces. According to the patient's family, the patient has been intermittently binge drinking. In addition, they report her having diarrhea for a few days. She had a low-grade fever with a temperature of 100.2 last night. 08/16 Patient is sedated with Fentanyl drip intubated and on Levophed 5 mics. On Bicarb drip. MRI brain yesterday showed small lacunar infarcts in left cerebellar hemisphere and right parietal lobe. Lp showed clear CSF, 17 wbc. Afebrile.Renal function worse today with Cr: 2.64 from 2.29 08/17 Patient remains sedated and intubated. On Bicarb drip. Off Levophed renal function slightly worse today with Cr: 2.82 from 2.64 and UOP: 550 ml in 24 hrs Objective Vital Signs Date Time Temp Pulse Resp B/P (MAP) Pulse Ox O2 Delivery O2 Flow Rate FiO2 08/17/17 06:00 100 08/17/17 04:00 40 08/17/17 04:00 98.8 15 193/80 (117) 99 181/85 (117) 08/15/17 05:42 Non-Rebreather 15.00 Intake and Output 08/17/17 08/17/17 08/18/17 08:00 16:00 00:00 Intake Total 980 ml Output Total 450 ml Balance 530 ml Result Diagram: 08/17/17 0428 08/17/17 0428 Other Results Laboratory Tests Test 08/16/17 09:00 08/17/17 04:28 Lactic Acid Level 2.7 mmol/L Total Creatine Kinase 1828 U/L 2448 U/L Creatine Kinase MB 28.5 NG/ML 20.4 NG/ML Creatine Kinase MB % 1.6 % 0.8 % White Blood Count 16.3 TH/MM3 Red Blood Count 3.32 MIL/MM3 Hemoglobin 10.4 GM/DL Hematocrit 31.2 % Mean Corpuscular Volume 94.0 FL Mean Corpuscular Hemoglobin 31.4 PG Mean Corpuscular Hemoglobin Concent 33.4 % Red Cell Distribution Width 14.3 % Platelet Count 147 TH/MM3 Mean Platelet Volume 8.0 FL Neutrophils (%) (Auto) 95.6 % Lymphocytes (%) (Auto) 2.2 % Monocytes (%) (Auto) 2.1 % Eosinophils (%) (Auto) 0.0 % Basophils (%) (Auto) 0.1 % Neutrophils # (Auto) 15.6 TH/MM3 Lymphocytes # (Auto) 0.4 TH/MM3 Monocytes # (Auto) 0.3 TH/MM3 Eosinophils # (Auto) 0.0 TH/MM3 Basophils # (Auto) 0.0 TH/MM3 CBC Comment AUTO DIFF Blood Urea Nitrogen 50 MG/DL Creatinine 2.82 MG/DL Random Glucose 166 MG/DL Total Protein 5.5 GM/DL Albumin 1.8 GM/DL Calcium Level 6.5 MG/DL Phosphorus Level 2.5 MG/DL Magnesium Level 1.7 MG/DL Alkaline Phosphatase 79 U/L Aspartate Amino Transf (AST/SGOT) 94 U/L Alanine Aminotransferase (ALT/SGPT) 49 U/L Total Bilirubin 0.2 MG/DL Sodium Level 140 MEQ/L Potassium Level 3.4 MEQ/L Chloride Level 104 MEQ/L Carbon Dioxide Level 23.1 MEQ/L Anion Gap 13 MEQ/L Estimat Glomerular Filtration Rate 16 ML/MIN Protein Corrected Calcium 7.3 MG/DL Random Vancomycin Level 17.0 COMMENT Imaging Last Impressions Lumbar Puncture Fluoroscopy 08/15/17 0000 Signed Impressions: Service Date/Time: Tuesday, August 15, 2017 15:36 - CONCLUSION: 1. Uncomplicated fluoroscopically guided lumbar puncture. 2. Please note, requested opening pressures were not obtained due to technical difficulties. Shashi Moreno MD Chest X-Ray 08/15/17 0000 Signed Impressions: Service Date/Time: Tuesday, August 15, 2017 08:15 - CONCLUSION: 1. ETT and right IJ central line in good position. No pneumothorax. 2. Stable mild left lower lung zone airspace disease, presumably atelectasis. Douglas Jean MD Brain MRI 08/15/17 0000 Signed Impressions: Service Date/Time: Tuesday, August 15, 2017 16:57 - CONCLUSION: 1. 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 2. Mild stenosis in the upper cervical spine as above. Esau Martell MD Abdomen/Pelvis CT 08/15/17 0000 Signed Impressions: Service Date/Time: Wednesday, August 16, 2017 00:25 - CONCLUSION: 1. Abnormal thickening of the descending colonic wall and the possibility of colitis should be entertained. There is also thickening of distal ileal wall which may be inflammatory as well. 2. There is mild anasarca with edema or inflammatory changes within the bilateral paracolic gutters extending down into the pelvis. 3. Small bilateral pleural effusions and bibasilar atelectasis and/or infiltrate. 4. Prominent ileocecal valve and possibility of lipoma at this site is not excluded. Josseline Villagomez MD Abdomen Ultrasound 08/15/17 0000 Signed Impressions: Service Date/Time: Tuesday, August 15, 2017 10:40 - CONCLUSION: 1. No abnormality is identified to explain the clinical symptoms. There is no hydronephrosis. 2. The liver is normal in size and echotexture. Adan Machuca MD Head CT 08/14/17 [id number] Signed Impressions: Service Date/Time: July 22:54 - CONCLUSION: Unremarkable study. Josseline Villagomez MD Objective Remarks GENERAL: Patient is 82 yo critically ill intubated and sedated SKIN: Warm and dry. HEAD: Normocephalic. EYES: No scleral icterus. No injection or drainage. NECK: Supple, trachea midline. No JVD or lymphadenopathy. Orally intubated CARDIOVASCULAR: Regular rate and rhythm without murmurs, gallops, or rubs. RESPIRATORY: Breath sounds equal bilaterally. No accessory muscle use. GASTROINTESTINAL: Abdomen soft, non-tender, nondistended. MUSCULOSKELETAL: No cyanosis, or edema. Neuro: sedated, intubated A/P Assessment and Plan 1. VDRF 2. Encephalopathy. 3. Small lacunar infarcts 4. Lactic acidemia. 5. Acute kidney injury. 6. Rhabdomyolysis. 7. Diarrhea. 8. Elevated AST likely secondary to EtOH use. 9. EtOH abuse. 10. Urinary tract infection. 11. History of hypertension. Plan Neuro: On fentanyl infusion for sedation. Daily sedation vacation. Monitor neuro status. 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 Neuro is following- Dr. Danielle LP showed clear CSF, 17 WBC, TP:45.2 Pulm: Continue with vent support and maintain sats> 92%. Bronchodilators, ICU vent bundle. Start SBT as ligia CV: Place on Lopressor 25mg Q12, monitor HR and BP and maintain MAP>65 mmHg. Serial lactic acid monitoring ( trending down) 2.7 Troponin is trending down. Echo showed EF 45-50% Taper steroids- hydrocortisone 50mg IV Q12 :Monitor renal function, intake and output and avoid nephrotoxins. Cr: 2.82 4 today, UOP: 550ml in 24 hrs on D5W+2amps bicarb @100ml/hr. Monitor CK's Will diurese with Lasix 40mg IV x1 for fluid overload ( approx 8 L positive ) Renal is following-Dr. Figueroa, abdomen: No hydronephrosis GI: On Pepcid for GI prophylaxis. Monitor LFT's( trending down) US liver: No abnormalities identified tube feeds- Nepro with goal rate 40ml/hr ID: Abx per ID ( Rocephin, Vanco, Ampicillin, Acyclovir) monitor for signs of infection(fever and WBCs). s/p LP showed clear CSF, 17 WBC, TP:45.2, follow up on cultures, HSV DNA PCR CT abdomen/pelvis: thickening of the descending colonic wall and the possibility of colitis should be entertained. There is also thickening of distal ileal wall which may be inflammatory as well. GI consulted ?colitis C-diff PCR is negative, stool studies negative Endo: SSI medium with Accu-Chek for glycemic control. TSH: 1.15. Heme: Monitor CBC. GI prophylaxis with Pepcid and DVT prophylaxis with SCDs.add Heparin SQ Lines: Right IJ CVP, Right radial Art line placed 08/15 Discussed with patient's daughter at bedside and updated her on patient;s condition. CCT 30 mins Don Youngblood MD Aug 17, 2017 07:44
[2017-08-17] MEDS ORDERED: METOPROLOL TARTRATE 5 MG/5 ML VIAL IV PUSH ONE (07:45)
[2017-08-17] MEDS ORDERED: POTASSIUM CHLOR 20 MEQ PREMIX 100 ML IV ONE (07:45)
[2017-08-17] MEDS: SODIUM CHLORIDE 0.9% FLUSH 10 ML FLUSH IV FLUSH SCH ×2 (07:53→19:58)
[2017-08-17] MEDS: MULTIVITAMIN TAB PO SCH (08:49)
[2017-08-17] MEDS: THIAMINE HCL 100 MG TAB PO SCH (08:49)
[2017-08-17] MEDS: FOLIC ACID 1 MG TAB PO SCH (08:49)
[2017-08-17] MEDS: ASPIRIN 81 MG CHEW TAB OG-TUBE SCH (08:50)
[2017-08-17] MEDS: METOPROLOL TARTRATE 25 MG TAB PO SCH ×2 (08:50→19:58)
[2017-08-17] MEDS: HEPARIN SODIUM - SQ 10,000 UNITS/ML VIAL SQ SCH ×2 (08:53→19:57)
[2017-08-17] MEDS ORDERED: CALCIUM GLUCONATE INJ 1 GM in SODIUM CHLORIDE 0.9% INJ 100 ML IV ONE (09:00)
[2017-08-17] MEDS ORDERED: VANCOMYCIN 1,000 MG/NS 250 ML IV ONE ×2 (10:00)
--- NOTE | 2017-08-17 10:32 | PD.CONS ---
HPI History of Present Illness This is a 82 year old female with hx intermittent binge drinking, IBS who presented after being found in bed with AMS, laying in feces. She was found to be in renal failure with rhabdomyolysis and subsequently had worsening mental status and was intubated. GI has been consulted for colitis. She has been having diarrhea for the last 4-5 days. No abd pain, n/v. She binge drinks on occasion and tends to have diarrhea when she does this. Daughter left town last week and when she came back found her mother in bed laying in her feces and confused. SHe has history of intermittent diarrhea and some fecal incontinence , also abd bloating, has been told she has IBS. Her last EGD and colonoscopy was with Dr Contreras in 2013 and finding of tortous esophagus, EGD and colonoscopy 2009 Dr Contreras, findings of tortuous esophagus, colon polyp, hemorrhoids. Hx obtained from pts daughter and EMR (Cathleen Estrella) PFSH Past Medical History hypertension sleep apnea suspected - pt refused work up severe cramping in legs- chronic questionable thyroid problem chronic bowel incontinence chronic neck pain sciatica binge drinking . Past Surgical History rectal prolapse surgery cholecystectomy hysterectomy tummy tuck breast implants - one did rupture face lift EGD and colonoscopy C5-C6 fusion . (Cathleen Estrella) Coded Allergies: No Known Allergies (Verified Allergy, Unknown, 08/15/17) Family History daughter- sleep apnea, thyroid nodules. half sister- aneurysm brain another half another sister- mental health 3 children with alcohol abuse. . Social History quit smoking >34yrs ago etoh abuse - binge drinking no drugs live with daughter (Cathleen Estrella) Review of Systems intubated on vent, noncontributory (Cathleen Estrella) GI Exam Vitals I&O Vital Signs Date Time Temp Pulse Resp B/P (MAP) Pulse Ox O2 Delivery O2 Flow Rate FiO2 08/17/17 08:42 100 40 08/17/17 06:00 100 08/17/17 04:00 40 08/17/17 04:00 132 08/17/17 04:00 98.8 132 15 193/80 (117) 99 181/85 (117) 08/17/17 03:52 99 40 08/17/17 02:00 97 2/18/18 01:07 98 40 2/18/18 00:00 98.9 141 14 198/95 (129) 98 200/97 (131) 218/18 00:00 141 2/18/18 00:00 40 217/18 22:50 105 182/81 2/17/18 22:25 98 40 2/17/18 22:00 128 2/17/18 20:00 40 217/18 20:00 115 2/17/18 20:00 98.1 115 17 186/76 (112) 99 164/146 (152) 17/18 19:55 99 40 2/17/18 18:38 115 192/95 2/17/18 18:00 40 2/17/18 18:00 85 2/17/18 16:39 87 101/41 2/17/18 16:34 88 101/40 2/17/18 16:27 89 87/39 2/17/18 16:00 86 2/17/18 16:00 97.9 86 16 94/43 (60) 96 08/16/18 15:45 94 109/49 217/18 15:34 96 40 2/17/18 14:56 99 128/87 2/17/18 14:55 99 128/87 2/17/18 14:00 90 217/18 12:00 40 217/18 12:00 97.9 90 13 66/50 (55) 98 123/59 (80) 08/16/18 12:00 90 217/18 11:56 94 40 217/18 10:00 92 I/O 08/16/18 2/17/18 2/17/18 2/18/18 2/18/18 2/18/18 07:00 15:00 23:00 07:00 15:00 23:00 Intake Total 800 ml 567 ml 1972 ml 980 ml Output Total 100 ml 350 ml 450 ml Balance 700 ml 567 ml 1622 ml 530 ml Intake IV Total 800 ml 567 ml 1756 ml 600 ml Tube Feeding 96 ml 380 ml Tube Irrigant 120 ml Output Urine Total 100 ml 100 ml 450 ml Stool Total 250 ml 0 ml # Bowel Movements 2 Imaging Last Impressions Lumbar Puncture Fluoroscopy 08/15/17 0000 Signed Impressions: Service Date/Time: Tuesday, August 15, 2017 15:36 - CONCLUSION: 1. Uncomplicated fluoroscopically guided lumbar puncture. 2. Please note, requested opening pressures were not obtained due to technical difficulties. Shashi Moreno MD Chest X-Ray 08/15/17 0000 Signed Impressions: Service Date/Time: Tuesday, August 15, 2017 08:15 - CONCLUSION: 1. ETT and right IJ central line in good position. No pneumothorax. 2. Stable mild left lower lung zone airspace disease, presumably atelectasis. Douglas Jean MD Brain MRI 08/15/17 0000 Signed Impressions: Service Date/Time: Tuesday, August 15, 2017 16:57 - CONCLUSION: 1. 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 2. Mild stenosis in the upper cervical spine as above. Esau Martell MD Abdomen/Pelvis CT 08/15/17 0000 Signed Impressions: Service Date/Time: Wednesday, August 16, 2017 00:25 - CONCLUSION: 1. Abnormal thickening of the descending colonic wall and the possibility of colitis should be entertained. There is also thickening of distal ileal wall which may be inflammatory as well. 2. There is mild anasarca with edema or inflammatory changes within the bilateral paracolic gutters extending down into the pelvis. 3. Small bilateral pleural effusions and bibasilar atelectasis and/or infiltrate. 4. Prominent ileocecal valve and possibility of lipoma at this site is not excluded. Josseline Villagomez MD Abdomen Ultrasound 08/15/17 0000 Signed Impressions: Service Date/Time: Tuesday, August 15, 2017 10:40 - CONCLUSION: 1. No abnormality is identified to explain the clinical symptoms. There is no hydronephrosis. 2. The liver is normal in size and echotexture. Adan Machuca MD Head CT [id number] Signed Impressions: Service Date/Time: July 22:54 - CONCLUSION: Unremarkable study. Josseline Villagomez MD Laboratory Test 08/17/17 04:28 White Blood Count 16.3 TH/MM3 Red Blood Count 3.32 MIL/MM3 Hemoglobin 10.4 GM/DL Hematocrit 31.2 % Mean Corpuscular Volume 94.0 FL Mean Corpuscular Hemoglobin 31.4 PG Mean Corpuscular Hemoglobin Concent 33.4 % Red Cell Distribution Width 14.3 % Platelet Count 147 TH/MM3 Mean Platelet Volume 8.0 FL Neutrophils (%) (Auto) 95.6 % Lymphocytes (%) (Auto) 2.2 % Monocytes (%) (Auto) 2.1 % Eosinophils (%) (Auto) 0.0 % Basophils (%) (Auto) 0.1 % Neutrophils # (Auto) 15.6 TH/MM3 Lymphocytes # (Auto) 0.4 TH/MM3 Monocytes # (Auto) 0.3 TH/MM3 Eosinophils # (Auto) 0.0 TH/MM3 Basophils # (Auto) 0.0 TH/MM3 CBC Comment AUTO DIFF Blood Urea Nitrogen 50 MG/DL Creatinine 2.82 MG/DL Random Glucose 166 MG/DL Total Protein 5.5 GM/DL Albumin 1.8 GM/DL Calcium Level 6.5 MG/DL Phosphorus Level 2.5 MG/DL Magnesium Level 1.7 MG/DL Alkaline Phosphatase 79 U/L Aspartate Amino Transf (AST/SGOT) 94 U/L Alanine Aminotransferase (ALT/SGPT) 49 U/L Total Bilirubin 0.2 MG/DL Sodium Level 140 MEQ/L Potassium Level 3.4 MEQ/L Chloride Level 104 MEQ/L Carbon Dioxide Level 23.1 MEQ/L Anion Gap 13 MEQ/L Estimat Glomerular Filtration Rate 16 ML/MIN Protein Corrected Calcium 7.3 MG/DL Total Creatine Kinase 2448 U/L Creatine Kinase MB 20.4 NG/ML Creatine Kinase MB % 0.8 % Random Vancomycin Level 17.0 COMMENT Date/Time Source Procedure Growth Status 08/14/17 22:45 Blood Peripheral Aerobic Blood Culture - Preliminary NO GROWTH IN 2 DAYS Resulted 08/14/17 22:45 Blood Peripheral Anaerobic Blood Culture - Preliminary NO GROWTH IN 2 DAYS Resulted 08/15/17 15:56 Cerebral Spinal Fluid Lumbar Puncture Gram Stain - Final Resulted 08/15/17 15:56 Cerebral Spinal Fluid Lumbar Puncture CSF Culture - Preliminary NO GROWTH IN 48 HOURS. Resulted 08/15/17 02:28 Stool Stool Cryptosporidium Exam Pending Ordered 08/15/17 02:28 Stool Stool Giardia Antigen (MARCIA) Pending Ordered 08/15/17 12:08 Sputum Endotracheal Gram Stain - Final Resulted 08/15/17 12:08 Sputum Endotracheal Sputum Culture - Preliminary HEAVY GROWTH NORMAL RESPIRATORY JARED... Resulted 08/14/17 22:45 Urine Catheterized Urine Urine Culture - Preliminary NO GROWTH IN 24 HOURS. Resulted Physical Examination HEENT: normocephalic; atraumatic; no jaundice. intubated CHEST: CTA CARDIAC: tachy ABDOMEN: Soft,mildly distended, no hepatosplenomegaly; bowel sounds are present in all four quadrants. EXTREMITIES: No clubbing, cyanosis, or edema. SKIN: Normal; no rash; no jaundice. 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 C diff neg. stool studies neg, giardia and cryptosporidium pending. EGD and colonoscopy 2009 Dr Contreras, findings of tortuous esophagus, colon polyp, hemorrhoids. hx intermittent diarrhea and some fecal incontinence- d/w daughter at length - anemia - likely multifactorial last EGD/colon as above - isolated AST elevation - unclear significance. hx heavy ETOH use, rhabdomyolysis - leukocytosis - wbc 16.3 today, has been trending up. ID following - acute renal failure, nephrology following PLAN - colonoscopy in am - obtain consent - Hold TF after midnight - golytely this evening - monitor labs - further recs to follow pt seen by myself and Dr Xiao and this note is written on her behalf (Cathleen Estrella) Cathleen Estrella Aug 17, 2017 10:32 Munira Xiao MD Aug 18, 2017 05:54
[2017-08-17 10:59] LABS: BANDS 10 % (0-6); CORRECTED NUCLEATED RBC 1 /100 WBC (0-0); LYMPHOCYTES 7 % (9-44); METAMYELOCYTES 1 % (0-1); MONOCYTES 7 % (0-8); NUCLEATED RED BLOOD CELL 1 (0-0); POLYS (SEG NEUTROPHILS) 75 % (16-70)
[2017-08-17 11:00] LABS: TOXIC VACUOLATION PRESENT (NONE SEEN)
[2017-08-17] MEDS: FAMOTIDINE 20 MG/2 ML VIAL IV PUSH SCH ×2 (12:03→22:24)
--- NOTE | 2017-08-17 12:16 | HHI.NPPN ---
Subjective History of Present Illness 82 year old with AMS, Diarrhea , ARF, Objective Data Data 08/17/17 08/18/17 18:59 06:59 Intake Total 437 ml Balance 437 ml Intake IV Total 437 ml Vital Signs Date Time Temp Pulse Resp B/P (MAP) Pulse Ox O2 Delivery O2 Flow Rate FiO2 08/17/17 12:00 103 08/17/17 11:28 99 40 08/17/17 11:08 40 08/17/17 11:00 40 08/17/17 10:00 109 08/17/17 10:00 125 08/17/17 08:42 100 40 08/17/17 08:00 98.7 08/17/17 08:00 40 08/17/17 08:00 125 08/17/17 08:00 98.7 125 19 146/82 (103) 98 146/83 (104) 08/17/17 06:00 100 08/17/17 04:00 40 08/17/17 04:00 132 08/17/17 04:00 98.8 132 15 193/80 (117) 99 181/85 (117) 08/17/17 03:52 99 40 08/17/17 02:00 97 08/17/17 01:07 98 40 08/17/17 00:00 98.9 141 14 198/95 (129) 98 200/97 (131) 08/17/17 00:00 141 08/17/17 00:00 40 08/16/17 22:50 105 182/81 08/16/17 22:25 98 40 08/16/17 22:00 128 08/16/17 20:00 40 08/16/17 20:00 115 08/16/17 20:00 98.1 115 17 186/76 (112) 99 164/146 (152) 08/16/17 19:55 99 40 18 18:38 115 192/95 18 18:00 40 08/16/17 18:00 85 18 16:39 87 101/41 18 16:34 88 101/40 18 16:27 89 87/39 18 16:00 86 08/16/17 16:00 97.9 86 16 94/43 (60) 96 08/16/17 15:45 94 109/49 08/16/17 15:34 96 40 08/16/17 14:56 99 128/87 08/16/17 14:55 99 128/87 08/16/17 14:00 90 -: 08/17/17 0428 [id number]/17/[id number] Physical Exam General Appearance: Well Developed Pulmonary Resp Exam: Clear Bilaterally, Breath Sounds Equal Gastrointestinal/Abdomen GI Exam: Soft, Bowel Sounds Present Extremeties Extremities Exam: Trace Edema, Moderate Edema Assessment/Plan Problem List: (1) Acute renal failure ICD Codes: N17.9 - Acute kidney failure, unspecified Plan: Patient has underlying rhabdomyolysis and dehydration and continue to hydrate increase IV fluids 100 cc an hour monitor output on bicarbonate drip Patient is getting acyclovir for possible meningitis this can cause renal failure to worsen Consider stopping it Follow BMP Follow CPK Avoid nephrotoxins Avoid dye studies Follow BMP (2) Rhabdomyolysis ICD Codes: M62.82 - Rhabdomyolysis Plan: Monitor CPK (3) Acute respiratory failure ICD Codes: J96.00 - Acute respiratory failure, unspecified whether with hypoxia or hypercapnia Plan: On ventilator (4) Septic shock ICD Codes: A41.9 - Sepsis, unspecified organism; R65.21 - Severe sepsis with septic shock Plan: Improving Stefanie Figueroa MD Aug 17, 2017 12:15
[2017-08-17] MEDS ORDERED: FUROSEMIDE 40 MG/4 ML VIAL IV PUSH ONE (13:30)
[2017-08-17] MEDS: fentaNYL DRIP 250 ML IV PRN (13:59)
[2017-08-17] MEDS: PROPOFOL 1000 MG/100 ML INJ 100 ML IV PRN (18:54)
[2017-08-17] MEDS ORDERED: POTASSIUM CHLORIDE 20 MEQ CONTROLLED RELEASE TAB PO ONE (21:15)
[2017-08-17] MEDS ORDERED: POTASSIUM CHLOR 40 MEQ PREMIX 100 ML IV ONE (21:15)
[2017-08-18] VITALS (18 sets, daily range): BP systolic 77–128; BP diastolic 50–82; PULSE 95–133; RESP 14–20; TEMP 98.9–99.5; O2SAT 90–99
[2017-08-18] MEDS: metroNIDAZOLE 500 MG INJ 100 ML IV SCH ×4 (01:32→20:03)
[2017-08-18] MEDS: AMPICILLIN INJ 2,000 MG in SODIUM CHLORIDE 0.9% INJ 100 ML IV SCH ×2 (01:33→05:19)
[2017-08-18] MEDS ORDERED: ETOMIDATE 40 MG/20 ML VIAL ONE (02:50)
--- NOTE | 2017-08-18 03:09 | PD.PROCEDR ---
Procedure Note Procedure procedure: ETT exchange Indication: loss of tidal volume due to patient biting a hole into existing ETT Sedation used: Etomidate 20mg IV, Rocuronium 50mg IV for neuromuscular blockade Description: Responded to call regarding patient not getting tidal volumes due to air leak as ET tube damaged secondary to patient biting through it. Patient maintaining O2 sats around 95% on my arrival while connected to mechanical ventilation. Decision made to proceed with tube exchange. Patient sedated with accommodate 20 mg IV and neuromuscular blockade with rocuronium 50 mg IV following which a tube exchanger was advanced via the existing endotracheal tube following which the ET tube was removed and a new endotracheal tube was advanced over tube exchanger October 22 centimeter savanah following which cuff was inflated and tube exchanger removed. With good color change on end-tidal CO2 detector, 5 point auscultation and chest rise with ventilation. ET tube was secured in place and 22 cm savanah and patient was connected to mechanical ventilation. O2 sats remained above 90% throughout the procedure. Postprocedure chest x-ray ordered and pending at the time of this dictation. It will be reviewed when available. Mikal Corea MD Aug 18, 2017 03:09
[2017-08-18] MEDS: SODIUM BICARBONATE 8.4% INJ 100 MEQ in DEXTROSE 5% IN WATE 1000ML INJ 1,000 ML IV SCH ×2 (03:38)
[2017-08-18] MEDS: cefTRIAXone INJ 2,000 MG in SODIUM CHLORIDE 0.9% INJ 100 ML IV SCH (03:38)
[2017-08-18] MEDS: RESP: IPRATROPIUM 0.5 MG/2.5 ML NEB NEB PRN ×2 (03:56→08:25)
[2017-08-18] MEDS: CHLORHEXIDINE GLUCONATE 2 % 1 PACK (2 CLOTHS)(taper/protocol) TOPICAL SCH (03:57)
[2017-08-18] MEDS: INSULIN NovoLIN REGULAR SUPPLEMENTAL SCALE SQ SCH ×5 (03:57→20:00)
--- NOTE | 2017-08-18 04:50 | RADRPT ---
EXAM DATE/TIME: 08/18/2017 03:13 [facility] COMPARISON: CHEST SINGLE AP, August 15, 2017, 8:15. INDICATIONS : Shortness of breath, ET tube exchange. MEDICAL HISTORY : Hypertension. Diverticulitis. Arthritis. SURGICAL HISTORY : Colon resection. Appendectomy. Hysterectomy. ENCOUNTER: Subsequent ACUITY: 4 - 6 days PAIN SCORE: Non-responsive. LOCATION: Bilateral chest FINDINGS: A single AP semierect view of the chest was obtained and again demonstrates the endotracheal tube in place with the tip 3 cm above the carlos. There has been placement of a nasogastric tube which is see n coursing through the esophagus into the stomach. The right internal jugular central venous line rem ains in place. There is mild hazy opacity at the lung bases with blunting of left costophrenic angle. The heart size is at the upper limits of normal. There are multiple overlying electrocardiogram lead s and oxygen tubing present. CONCLUSION: 1. Interval placement of nasogastric tube. 2. Bibasal opacity left greater than right with small left effusion. Jl Stanley MD on August 18, 2017 at 4:48 Board Certified Radiologist. This report was verified electronically.
[2017-08-18] MEDS: HYDROCORTISONE SOD SUCCINATE 100 MG VIAL IV PUSH SCH ×2 (05:18→17:06)
[2017-08-18 05:52] LABS: HEMATOCRIT 29.8 % (35.0-46.0); MEAN CELL VOLUME 95.2 FL (80.0-100.0); MEAN CORPUSCULAR HEMOGLOBIN 32.1 PG (27.0-34.0); MEAN CORPUSCULAR HGB CONC 33.7 % (32.0-36.0); MEAN PLATELET VOLUME 7.8 FL (7.0-11.0); PLATELET COUNT 97 TH/MM3 (150-450); RED BLOOD COUNT 3.13 MIL/MM3 (4.00-5.30); RED CELL DISTRIBUTION WIDTH 14.4 % (11.6-17.2); WHITE BLOOD COUNT 5.9 TH/MM3 (4.0-11.0)
[2017-08-18] MEDS ORDERED: PEG (High)/E-LYTE SOLN 4000 ML BTL PO ONE (06:00)
[2017-08-18] MEDS: ACYCLOVIR INJ 500 MG in SODIUM CHLORIDE 0.9% INJ 100 ML IV SCH (06:13)
[2017-08-18 06:26] LABS: ALBUMIN 1.5 GM/DL (3.4-5.0); BICARBONATE 33.1 MEQ/L (21.0-32.0); CALCIUM 6.8 MG/DL (8.5-10.1); CREATININE 1.97 MG/DL (0.50-1.00); RANDOM VANCOMYCIN 17.5 COMMENT; TOTAL BILIRUBIN ADULT 0.1 MG/DL (0.2-1.0); TOTAL PROTEIN 4.8 GM/DL (6.4-8.2)
--- NOTE | 2017-08-18 07:55 | HHI.CCPN ---
Subjective Remarks/Hospital Course Patient is an 82-year-old female with past medical history of irritable bowel syndrome, hypertension, arthritis, diverticulitis who presented to the [facility] ED after she was found lying on her bed with urine and feces all around her bed. In addition, the patient was altered and obtunded. Most of the history was obtained from reviewing the medical records. Her laboratory data showed acute renal failure with BUN of 52, creatinine 3.39 and lactic acidosis with a lactic acid level of 6.3. In addition, the patient was in rhabdomyolysis with elevated CK at 3855. She was admitted under the hospitalist service; however, a HaliCAT was called due to worsening mental status, hypertension and hypoxemia. She was transferred to [facility] and critical care medicine was consulted for critical care management. When seen, the patient was lethargic, not following any commands, hypotensive. She was subsequently intubated by myself and a right internal jugular central line was placed for hemodynamic monitoring. ABG post intubation showed a pH of 7.31, co2 of 30, pA02 of 117, bicarbonate 15 and saturation of 96% on PRVC rate of 14, tidal volume 350 with IT:1, PEEP 5 and FIO2 of 100%. She was given two liter boluses of normal saline and placed on a bicarbonate drip. Her lactic acid level is trending down and is currently 3.4 from 6.3 on arrival. In addition, her renal function is improving with IV hydration. Her creatinine level is 2.29 from 3.39. Due to hypotension, Levophed was started. A CT scan of the brain in the emergency department was unremarkable. Her initial chest x-ray showed minimal basilar atelectasis, no effusions or pneumothoraces. According to the patient's family, the patient has been intermittently binge drinking. In addition, they report her having diarrhea for a few days. She had a low-grade fever with a temperature of 100.2 last night. 08/16 Patient is sedated with Fentanyl drip intubated and on Levophed 5 mics. On Bicarb drip. MRI brain yesterday showed small lacunar infarcts in left cerebellar hemisphere and right parietal lobe. Lp showed clear CSF, 17 wbc. Afebrile.Renal function worse today with Cr: 2.64 from 2.29 08/17 Patient remains sedated and intubated. On Bicarb drip. Off Levophed renal function slightly worse today with Cr: 2.82 from 2.64 and UOP: 550 ml in 24 hrs 08/18 Patient bit through ETT overnight s/p new ETT placement using tube exchanger. Sedated with Diprivan and Fentanyl. Afebrile. Renal function is improving with Cr: 1.97 from 2.82. On Bicarb drip. Tube feeds held for possible colonoscopy today. Objective Vital Signs Date Time Temp Pulse Resp B/P (MAP) Pulse Ox O2 Delivery O2 Flow Rate FiO2 08/18/17 06:00 102 08/18/17 04:05 92 80 08/18/17 04:00 99.5 20 128/60 (82) 102/74 (83) 08/15/17 05:42 Non-Rebreather 15.00 Intake and Output 08/18/17 08/18/17 08/19/17 08:00 16:00 00:00 Intake Total 625 ml Output Total 1551 ml Balance -926 ml Result Diagram: 08/18/17 0540 08/18/17 0540 Other Results Laboratory Tests Test 08/17/17 13:30 08/17/17 18:44 08/18/17 05:40 Blood Gas Puncture Site ART LINE Blood Gas Patient Temperature 98.6 Blood Gas HCO3 23 mmol/L Blood Gas Base Excess -0.4 mmol/L Blood Gas Oxygen Saturation 97 % Arterial Blood pH 7.44 Arterial Blood Partial Pressure CO2 35 mmHg Arterial Blood Partial Pressure O2 127 mmHg Arterial Blood Oxygen Content 13.9 Vol % Arterial Blood Carboxyhemoglobin 0.6 % Arterial Blood Methemoglobin 1.2 % Blood Gas Hemoglobin 10.0 G/DL Oxygen Delivery Device VENTILATOR Blood Gas Ventilator Setting PRVC/AC 350/14 Blood Gas Inspired Oxygen 40 % Potassium Level 2.7 MEQ/L 3.0 MEQ/L White Blood Count 5.9 TH/MM3 Red Blood Count 3.13 MIL/MM3 Hemoglobin 10.0 GM/DL Hematocrit 29.8 % Mean Corpuscular Volume 95.2 FL Mean Corpuscular Hemoglobin 32.1 PG Mean Corpuscular Hemoglobin Concent 33.7 % Red Cell Distribution Width 14.4 % Platelet Count 97 TH/MM3 Mean Platelet Volume 7.8 FL Blood Urea Nitrogen 42 MG/DL Creatinine 1.97 MG/DL Random Glucose 122 MG/DL Total Protein 4.8 GM/DL Albumin 1.5 GM/DL Calcium Level 6.8 MG/DL Alkaline Phosphatase 63 U/L Aspartate Amino Transf (AST/SGOT) 42 U/L Alanine Aminotransferase (ALT/SGPT) 35 U/L Total Bilirubin 0.1 MG/DL Sodium Level 143 MEQ/L Chloride Level 104 MEQ/L Carbon Dioxide Level 33.1 MEQ/L Anion Gap 6 MEQ/L Estimat Glomerular Filtration Rate 24 ML/MIN Protein Corrected Calcium 8.0 MG/DL Total Creatine Kinase 804 U/L Creatine Kinase MB 4.6 NG/ML Creatine Kinase MB % 0.6 % Random Vancomycin Level 17.5 COMMENT Imaging Last Impressions Chest X-Ray 08/18/17 0600 Signed Impressions: Service Date/Time: Friday, August 18, 2017 03:13 - CONCLUSION: 1. Interval placement of nasogastric tube. 2. Bibasal opacity left greater than right with small left effusion. Jl Stanley MD Lumbar Puncture Fluoroscopy 08/15/17 0000 Signed Impressions: Service Date/Time: Tuesday, August 15, 2017 15:36 - CONCLUSION: 1. Uncomplicated fluoroscopically guided lumbar puncture. 2. Please note, requested opening pressures were not obtained due to technical difficulties. Shashi Moreno MD Brain MRI 08/15/17 0000 Signed Impressions: Service Date/Time: Tuesday, August 15, 2017 16:57 - CONCLUSION: 1. 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 2. Mild stenosis in the upper cervical spine as above. Esau Martell MD Abdomen/Pelvis CT 08/15/17 0000 Signed Impressions: Service Date/Time: Wednesday, August 16, 2017 00:25 - CONCLUSION: 1. Abnormal thickening of the descending colonic wall and the possibility of colitis should be entertained. There is also thickening of distal ileal wall which may be inflammatory as well. 2. There is mild anasarca with edema or inflammatory changes within the bilateral paracolic gutters extending down into the pelvis. 3. Small bilateral pleural effusions and bibasilar atelectasis and/or infiltrate. 4. Prominent ileocecal valve and possibility of lipoma at this site is not excluded. Josseline Villagomez MD Abdomen Ultrasound 08/15/17 0000 Signed Impressions: Service Date/Time: Tuesday, August 15, 2017 10:40 - CONCLUSION: 1. No abnormality is identified to explain the clinical symptoms. There is no hydronephrosis. 2. The liver is normal in size and echotexture. Adan Machuca MD Head CT 08/14/174 Signed Impressions: Service Date/Time: July 22:54 - CONCLUSION: Unremarkable study. KStepan Villagomez MD Objective Remarks GENERAL: Patient is 82 yo critically ill intubated and sedated SKIN: Warm and dry. HEAD: Normocephalic. EYES: No scleral icterus. No injection or drainage. NECK: Supple, trachea midline. No JVD or lymphadenopathy. Orally intubated CARDIOVASCULAR: Regular rate and rhythm without murmurs, gallops, or rubs. RESPIRATORY: Breath sounds equal bilaterally. No accessory muscle use. GASTROINTESTINAL: Abdomen soft, non-tender, nondistended. MUSCULOSKELETAL: No cyanosis, or edema. Neuro: sedated, intubated A/P Assessment and Plan 1. VDRF 2. Encephalopathy. 3. Small lacunar infarcts 4. Lactic acidemia. 5. Acute kidney injury. 6. Rhabdomyolysis. 7. Diarrhea. 8. Elevated AST likely secondary to EtOH use. 9. EtOH abuse. 10. Urinary tract infection. 11. History of hypertension. Plan Neuro: On fentanyl, Diprivan infusion for sedation. Daily sedation vacation. Monitor neuro status. 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 Neuro is following- Dr. Danielle LP showed clear CSF, 17 WBC, TP:45.2 Pulm: Continue with vent support and maintain sats> 92%. Bronchodilators, ICU vent bundle. SBT as ligia s/p new ETT placement overnight using tube exchanger ( patient bit thru ETT) Check ABG CV: on Lopressor 25mg Q12, monitor HR and BP and maintain MAP>65 mmHg. Serial lactic acid monitoring ( trending down) 2.7 Troponin is trending down. Echo showed EF 45-50% Taper steroids- Decrease hydrocortisone 25mg IV Q12 :Monitor renal function, intake and output and avoid nephrotoxins. Will need K replacement today Renal function is improving Cr: 1.97 from 2.82, UOP: 4750ml in 24 hrs s/p Lasix 40mg x1 yesterday , d/c bicarb drip, CK trending down. Renal is following-Dr. Figueroa, US abdomen: No hydronephrosis GI: On Pepcid for GI prophylaxis. Monitor LFT's( trending down) US liver: No abnormalities identified tube feeds- Nepro on hold for colonoscopy today GI is following- colonoscopy done today showed diffuse colitis in the sigmoid colon and descending colon; Necrotic, dusky appearing mucosa. Consistent with severe ischemic. discussed with Dr. Sims will consult general surgery ID: Abx per ID ( Rocephin,Flagyl) monitor for signs of infection(fever and WBCs) . s/p LP showed clear CSF, 17 WBC, TP:45.2, follow up on cultures, HSV DNA PCR CT abdomen/pelvis: thickening of the descending colonic wall and the possibility of colitis should be entertained. There is also thickening of distal ileal wall which may be inflammatory as well. C-diff PCR is negative, stool studies negative Endo: SSI medium with Accu-Chek for glycemic control. TSH: 1.15. Heme: Monitor CBC. GI prophylaxis with Pepcid and DVT prophylaxis with SCDs, Heparin SQ Lines: Right IJ CVP, Right radial Art line placed 08/15 Discussed with patient's daughter at bedside and updated her on patient;s condition. CCT 30 mins Don Youngblood MD Aug 18, 2017 07:55
[2017-08-18] MEDS: ASPIRIN 81 MG CHEW TAB OG-TUBE SCH (08:50)
[2017-08-18] MEDS: THIAMINE HCL 100 MG TAB PO SCH (08:50)
[2017-08-18] MEDS: MULTIVITAMIN TAB PO SCH (08:50)
[2017-08-18] MEDS: FOLIC ACID 1 MG TAB PO SCH (08:50)
[2017-08-18] MEDS: METOPROLOL TARTRATE 25 MG TAB PO SCH ×3 (08:50→20:05)
[2017-08-18] MEDS: HEPARIN SODIUM - SQ 10,000 UNITS/ML VIAL SQ SCH ×2 (08:51→20:03)
[2017-08-18] MEDS ORDERED: POTASSIUM CHLORIDE INJ 40 MEQ in SODIUM CHLORID 0.9% 500 ML INJ 500 ML IV-CENTRAL ONE (09:00)
[2017-08-18] MEDS: SODIUM CHLORIDE 0.9% FLUSH 10 ML FLUSH IV FLUSH SCH ×2 (10:10→20:03)
--- NOTE | 2017-08-18 11:11 | HHI.IDPN ---
Subjective Subjective Remarks Ms. Olson is an 82 year old female with past medical history of hypertension, possible sleep apnea, chronic neck pain, sciatica, alcohol abuse, arthritis, chronic rectal prolapse with bowel incontinence and anxiety. Patients daughter reports she was away for last week (normally she lives with Mom). She checked on her mom each night. The night prior to admission patient and daughter spoke to each other and no reported fever or change in behavior etc noted. No recent bounced checks, change in behavior, fires, falls or doors left unopened or such security concerns. She was found by her daughter lying in bed. On questioning patient was not found vomiting and no seizures. But patient was found in urine and feces. With this background patient presented to [facility] ER on when daughter arrived home to find patient laying on the bed covered in urine and feces. She was obtunded and 911 was called. Upon arrival to the ER: * VS - 100.2, HR 104, RR 18, BP 125/55, O2 sat 95% on room air. * WBC 10.2, hgb 13.8, hct 41.6, platelets 304, neutrophils 91.3% * BUN 52, creatinine 3.39, glucose 177, sodium 141, potassium 5.1, chloride 103 , GFR 13 * Lactic acid 6.3 * TCK 3855, CK-MB 113.6, CK-MB 2.9% * CT head - unremarkable * CXR - minimal basilar atelectasis, no effusion or pneumothorax Patient was admitted to the [facility] Hospitalist service for severe dehydration. acute renal failure, rhabdomyolysis, lactic acidosis, possible UTI, sepsis. Overnight she developed tachycardia, hypotension and hypoxemia. She was transferred to ICU placed on pressor support. She was started on heparin drip per PE protocol. Water Engineer was consulted for hypotension, septic shock. On non -rebreather with with oxygen saturation 90% and BP 79/50. Since admission she was [facility]ub[facility] Infectious disease consulted for evaluation and M'ment of septic shock with meningoencephalitis. Overnight events and chart reviewed. LP negative for meningitis. clx neg x [address] A/p showed mucosal thickening / c.diff negative + lactic acidosis On vent BP is low Antibiotics ampicillin flagyl cftx vanco - acyclovir Lines Line sites with no e.o infections. Past Medical History reviewed Allergies: Coded Allergies: No Known Allergies (Verified Allergy, Unknown, 08/15/17) Objective . Vital Signs Date Time Temp Pulse Resp B/P (MAP) Pulse Ox O2 Delivery O2 Flow Rate FiO2 08/18/17 09:05 70 08/18/17 08:26 96 70 08/18/17 06:00 102 08/18/17 04:05 92 80 08/18/17 04:00 99.5 118 20 128/60 (82) 90 102/74 (83) 08/18/17 04:00 80 08/18/17 04:00 118 08/18/17 02:00 99 08/18/17 01:04 94 40 08/18/17 00:00 98 08/18/17 00:00 99.5 98 14 94/50 (65) 94 77/68 (71) 08/18/17 00:00 40 08/17/17 22:00 112 08/17/17 20:30 95 40 08/17/17 20:00 40 08/17/17 20:00 124 08/17/17 20:00 99.1 124 14 140/76 (97) 97 137/80 (99) 08/17/17 18:00 128 08/17/17 16:00 107 08/17/17 16:00 103 12 160/77 (104) 98 167/71 (103) 08/17/17 16:00 40 08/17/17 15:45 9 40 08/17/17 14:00 113 08/17/17 12:42 40 08/17/17 12:00 40 08/17/17 12:00 103 08/17/17 12:00 98.8 103 12 160/77 (104) 98 167/71 (103) 08/17/17 11:28 99 40 . Laboratory Tests Test 08/17/17 04:28 08/18/17 05:40 White Blood Count 16.3 TH/MM3 5.9 TH/MM3 Red Blood Count 3.32 MIL/MM3 3.13 MIL/MM3 Hemoglobin 10.4 GM/DL 10.0 GM/DL Hematocrit 31.2 % 29.8 % Mean Corpuscular Volume 94.0 FL 95.2 FL Mean Corpuscular Hemoglobin 31.4 PG 32.1 PG Mean Corpuscular Hemoglobin Concent 33.4 % 33.7 % Red Cell Distribution Width 14.3 % 14.4 % Platelet Count 147 TH/MM3 97 TH/MM3 Mean Platelet Volume 8.0 FL 7.8 FL Neutrophils (%) (Auto) 95.6 % Lymphocytes (%) (Auto) 2.2 % Monocytes (%) (Auto) 2.1 % Eosinophils (%) (Auto) 0.0 % Basophils (%) (Auto) 0.1 % Neutrophils # (Auto) 15.6 TH/MM3 Lymphocytes # (Auto) 0.4 TH/MM3 Monocytes # (Auto) 0.3 TH/MM3 Eosinophils # (Auto) 0.0 TH/MM3 Basophils # (Auto) 0.0 TH/MM3 CBC Comment AUTO DIFF Differential Total Cells Counted 100 Neutrophils % (Manual) 75 % Band Neutrophils % 10 % Lymphocytes % 7 % Monocytes % 7 % Neutrophils # (Manual) 14.0 TH/MM3 Metamyelocytes 1 % Nucleated Red Blood Cells 1 /100 WBC Differential Comment FINAL DIFF MANUAL Toxic Vacuolation PRESENT Platelet Estimate NORMAL Platelet Morphology Comment NORMAL Laboratory Tests Test 08/17/17 04:28 08/17/17 18:44 08/18/17 05:40 Blood Urea Nitrogen 50 MG/DL 42 MG/DL Creatinine 2.82 MG/DL 1.97 MG/DL Random Glucose 166 MG/DL 122 MG/DL Total Protein 5.5 GM/DL 4.8 GM/DL Albumin 1.8 GM/DL 1.5 GM/DL Calcium Level 6.5 MG/DL 6.8 MG/DL Phosphorus Level 2.5 MG/DL Magnesium Level 1.7 MG/DL Alkaline Phosphatase 79 U/L 63 U/L Aspartate Amino Transf (AST/SGOT) 94 U/L 42 U/L Alanine Aminotransferase (ALT/SGPT) 49 U/L 35 U/L Total Bilirubin 0.2 MG/DL 0.1 MG/DL Sodium Level 140 MEQ/L 143 MEQ/L Potassium Level 3.4 MEQ/L 2.7 MEQ/L 3.0 MEQ/L Chloride Level 104 MEQ/L 104 MEQ/L Carbon Dioxide Level 23.1 MEQ/L 33.1 MEQ/L Anion Gap 13 MEQ/L 6 MEQ/L Estimat Glomerular Filtration Rate 16 ML/MIN 24 ML/MIN Protein Corrected Calcium 7.3 MG/DL 8.0 MG/DL Total Creatine Kinase 2448 U/L 804 U/L Creatine Kinase MB 20.4 NG/ML 4.6 NG/ML Creatine Kinase MB % 0.8 % 0.6 % Microbiology Date/Time Source Procedure Growth Status 08/15/17 15:56 Cerebral Spinal Fluid Lumbar Puncture Gram Stain - Final Complete 08/15/17 15:56 Cerebral Spinal Fluid Lumbar Puncture CSF Culture - Final NO GROWTH IN 72 HOURS Complete 08/15/17 12:08 Sputum Endotracheal Gram Stain - Final Complete 08/15/17 12:08 Sputum Endotracheal Sputum Culture - Final HEAVY GROWTH NORMAL RESPIRATORY JARED Complete Imaging Last Impressions Lumbar Puncture Fluoroscopy 08/15/17 0000 Signed Impressions: Service Date/Time: Tuesday, August 15, 2017 15:36 - CONCLUSION: 1. Uncomplicated fluoroscopically guided lumbar puncture. 2. Please note, requested opening pressures were not obtained due to technical difficulties. Shashi Moreno MD Chest X-Ray 08/15/17 0000 Signed Impressions: Service Date/Time: Tuesday, August 15, 2017 08:15 - CONCLUSION: 1. ETT and right IJ central line in good position. No pneumothorax. 2. Stable mild left lower lung zone airspace disease, presumably atelectasis. Douglas Jean MD Brain MRI 08/15/17 0000 Signed Impressions: Service Date/Time: Tuesday, August 15, 2017 16:57 - CONCLUSION: 1. 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 2. Mild stenosis in the upper cervical spine as above. Esau Martell MD Abdomen/Pelvis CT 08/15/17 0000 Signed Impressions: Service Date/Time: Wednesday, August 16, 2017 00:25 - CONCLUSION: 1. Abnormal thickening of the descending colonic wall and the possibility of colitis should be entertained. There is also thickening of distal ileal wall which may be inflammatory as well. 2. There is mild anasarca with edema or inflammatory changes within the bilateral paracolic gutters extending down into the pelvis. 3. Small bilateral pleural effusions and bibasilar atelectasis and/or infiltrate. 4. Prominent ileocecal valve and possibility of lipoma at this site is not excluded. Josseline Villagomez MD Abdomen Ultrasound 08/15/17 0000 Signed Impressions: Service Date/Time: Tuesday, August 15, 2017 10:40 - CONCLUSION: 1. No abnormality is identified to explain the clinical symptoms. There is no hydronephrosis. 2. The liver is normal in size and echotexture. Adan Machuca MD Head CT 08/14/17 [id number] Signed Impressions: Service Date/Time: July 22:54 - CONCLUSION: Unremarkable study. Josseline Villagomez MD Physical Exam GENERAL: This is a well-nourished, well-developed patient, in no apparent distress. SKIN: No rashes, ecchymoses or lesions. Cool and dry. HEAD: Atraumatic. Normocephalic. No temporal or scalp tenderness. EYES: Pupils equal round and reactive. Extraocular motions intact. No scleral icterus. No injection or drainage. ENT: Intubated. NECK: Trachea midline. Supple, nontender, CARDIOVASCULAR: + murmur, no gallops, rub RESPIRATORY: Clear to auscultation. Breath sounds equal bilaterally. No wheezes , rales, or rhonchi. GASTROINTESTINAL: Abdomen soft, non-tender ( no reaction to palpation), + at least moderately distended. MUSCULOSKELETAL: Extremities without clubbing, cyanosis, or edema. No joint tenderness, effusion, or edema noted. No calf tenderness. Negative Homans sign bilaterally. NEUROLOGICAL: sedated Moves all 4 extremities. Psych unable to assess IV line sites with no e.o infection. 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 Alcohol abuse: at risk for withdrawal. Acute rhabdomyolysis: ? seizures. Acute renal failure: sepsis, prerenal, rhabdomyolysis. Colitis clinically and radiologically ; c.diff negative ? ischemic Recs: Cont Ceftriaxone change to q24hrs. Continue Flagyl IV DC Vanco IV DC Ampicillin IV DC Acyclovir IV (Total protein 45.2 just bearly elevated) Check CSF HSV 1/2 Follow cultures. Follow clinically. Piedad Corea MD Aug 18, 2017 11:11
[2017-08-18] MEDS ORDERED: PROPOFOL 200 MG/20 ML AMP IV ONE (12:00)
[2017-08-18] MEDS ORDERED: PHENYLEPH/NS 1000 MCG/10 ML SYR IV ONE (12:00)
[2017-08-18] MEDS ORDERED: ePHEDrine/NS 25 MG/5 ML SYRINGE IV ONE (12:00)
--- NOTE | 2017-08-18 13:18 | HHI.NPPN ---
Subjective History of Present Illness 82 year old with AMS, Diarrhea , ARF, Objective Data Data Vital Signs Date Time Temp Pulse Resp B/P (MAP) Pulse Ox O2 Delivery O2 Flow Rate FiO2 08/18/17 12:00 70 08/18/17 09:05 70 08/18/17 08:26 96 70 08/18/17 06:00 102 08/18/17 04:05 92 80 08/18/17 04:00 99.5 118 20 128/60 (82) 90 102/74 (83) 08/18/17 04:00 80 08/18/17 04:00 118 08/18/17 02:00 99 08/18/17 01:04 94 40 08/18/17 00:00 98 08/18/17 00:00 99.5 98 14 94/50 (65) 94 77/68 (71) 08/18/17 00:00 40 08/17/17 22:00 112 08/17/17 20:30 95 40 08/17/17 20:00 40 08/17/17 20:00 124 08/17/17 20:00 99.1 124 14 140/76 (97) 97 137/80 (99) 08/17/17 18:00 128 08/17/17 16:00 107 08/17/17 16:00 103 12 160/77 (104) 98 167/71 (103) 08/17/17 16:00 40 08/17/17 15:45 9 40 08/17/17 14:00 113 -: 08/18/17 0540 08/18/17 0540 Physical Exam General Appearance: Well Developed Pulmonary Resp Exam: Clear Bilaterally, Breath Sounds Equal Gastrointestinal/Abdomen GI Exam: Soft, Bowel Sounds Present Extremeties Extremities Exam: Trace Edema, Moderate Edema Assessment/Plan Problem List: (1) Acute renal failure ICD Codes: N17.9 - Acute kidney failure, unspecified Plan: Patient has underlying rhabdomyolysis and dehydration and continue to hydrate stop bicarb UOP 4.7 L Cr declined 1.9 will follow PRN bases K low been replaced Follow BMP (2) Rhabdomyolysis ICD Codes: M62.82 - Rhabdomyolysis Plan: Monitor CPK (3) Acute respiratory failure ICD Codes: J96.00 - Acute respiratory failure, unspecified whether with hypoxia or hypercapnia Plan: On ventilator (4) Septic shock ICD Codes: A41.9 - Sepsis, unspecified organism; R65.21 - Severe sepsis with septic shock Plan: Stefanie Mancuso MD Aug 18, 2017 13:17
[2017-08-18] MEDS: FAMOTIDINE 20 MG/2 ML VIAL IV PUSH SCH (13:27)
--- NOTE | 2017-08-18 15:02 | GIPROC ---
[facility] [address] [facility]. [facility], [address] COLONOSCOPY PROCEDURE REPORT EXAM DATE: 08/18/2017 PATIENT NAME: Ally Olson MR #: [id number] BIRTHDATE: 1935 ENDOSCOPIST: Tanvi Contreras MD ORDER #: [id number] POWDER ROOM ATTENDANT: Zak Calderon and Monae Lopez STATUS: inpatient INDICATIONS: The patient is a 82 yr old female here for a colonoscopy due to abdominal pain, chronic diarrhea, and an abnormal CT PROCEDURE PERFORMED: Colonoscopy, diagnostic MEDICATIONS: Per Anesthesia and None. PREP QUALITY: fair PREP TYPE:GoLytely ESTIMATED BLOOD LOSS: None CONSENT: The patient understands the risks and benefits of the procedure and understands that these risks include, but are not limited to: sedation, allergic reaction, infection, perforation and/or bleeding. Alternative means of evaluation and treatment include, among others: physical exam, x-rays, and/or surgical intervention. The patient elects to proceed with this endoscopic procedure. medical equipment was checked for proper function. Hand hygiene and appropriate measures for infection prevention was taken. After the risks, benefits and alternatives of the procedure were thoroughly explained, Informed consent was verified, confirmed and timeout was successfully executed by the treatment team. A digital exam revealed external hemorrhoids The Pentax [id number] endoscope was introduced through the anus and advanced to the splenic flexure. The instrument was then slowly withdrawn as the colon was fully examined. COLON FINDINGS: A large sized circumferential diffuse patch of colitis was found in the sigmoid colon and descending colon. Necrotic, dusky appearing mucosa. Consistent with severe ischemic. This is consistent with ischemic colitis disease. Retroflexed views revealed internal hemorrhoids and Retroflexed views revealed medium internal hemorrhoids The scope was then completely withdrawn from the patient and the procedure terminated. ADVERSE EVENTS: There were no complications. IMPRESSIONS: 1. Large sized circumferential diffuse colitis was found in the sigmoid colon and descending colon; Necrotic, dusky appearing mucosa. Consistent with severe ischemic. This is consistent with ischemic colitis 2. Retroflexed views revealed internal hemorrhoids 3. Retroflexed views revealed medium internal hemorrhoids 4. Revealed external hemorrhoids RECOMMENDATIONS: Discussed with Sr. Whitlock. Unable to do CTA/MRA, surgical consult requested. RECALL: Return 5 days Colonoscopy Tanvi Contreras MD eSigned: Tanvi Contreras MD 08/18/2017 3:02 PM cc: PATIENT NAME: Ally Olson MR#: [id number]
[2017-08-18] MEDS: fentaNYL DRIP 250 ML IV PRN (16:41)
--- NOTE | 2017-08-18 17:10 | HHI.HCPN ---
Reason for visit a. To assist with evaluation and management of symptoms including: altered mental status, dyspnea, anxiety. b. To assist medical decision maker(s) with: better understanding of current medical conditions; weighing benefits/burdens of medical treatment options; making medical treatment decisions. . (Vashti Riley) Subjective/Interval History Patient seen and examined in ICU. 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 Abdominal ultrasound negative. CT abdomen pelvis with abnormal thickening of the descending colonic wall, possible colitis, thickening of distal ileal, may be inflammatory, mild anasarca with edema or inflammatory changes within the bilateral paracolic gutters extending down into the pelvis, small bilateral pleural effusions and bibasilar atelectasis and/or infiltrate, prominent ileocecal valve/ possible lipoma. LP was performed on , ID following - acyclovir discontinued as total protein slightly elevated 45.2. Patient remains on mechanical ventilation, FiO2 70%. Nurse indicates patient bit through ET tube overnight with drop in oxygen saturation into the 50s. T- max 99.5. Tachycardic, rate 110. WBC 5.9, hemoglobin 10.0, platelet 97. Creatinine improving from 2.82 to 1.97, adequate urine output. Hypokalemic, potassium 3.0 being replaced IV during my visit. Albumin 1.5. Cultures negative to date. Chest x-ray with interval NG tube, bibasilar opacity left greater than right with small left effusion. Patient unable to communicate. Appears intermittently anxious when awake, though falls off to sleep quickly. Remains on fentanyl and propofol drips. Discussed with Dr. Whitlock, patient making some clinical improvement recommend continued aggressive care at this time. . Family/friend interactions Spoke with daughter at bedside, medical update provided. Goals remain aggressive. Offered palliative care family meeting and she verbalizes that her brother is struggling with the patient's critical illness. Provided palliative care number should family desire family meeting. . (Vashti Riley) Advance Directives Living Will: Never completed Health Care Surrogate: Never completed Durable Power of Supervisor Car Installations: Never completed (Vashti Riley) Advance Directive Specifics Health Care Surrogate(s): Patient is not currently capacitated to make her own healthcare decisions, uncertain if she will regain capacity. No written advanced directives. According to [place] statute healthcare proxy decision making falls to the majority of adult children, patient has 3 daughters and 1 son. Children are in agreement that Silvia Luis will serve as the family spokesperson /first contact. . Documented care wishes: No written advanced directives. . Significant change in goals: FULL CODE. Goals remain aggressive. (Vashti Riley) Objective Vital Signs Date Time Temp Pulse Resp B/P (MAP) Pulse Ox O2 Delivery O2 Flow Rate FiO2 08/18/17 16:01 99 70 08/18/17 16:00 112 08/18/17 16:00 118 17 101/66 (78) 97 111/59 (76) 08/18/17 16:00 70 08/18/17 14:00 113 08/18/17 12:00 111 08/18/17 12:00 99.4 111 16 121/60 (80) 96 122/57 (78) 08/18/17 12:00 70 08/18/17 10:00 97 08/18/17 09:05 70 08/18/17 08:26 96 70 08/18/17 08:00 98.9 129 16 114/75 (88) 90 128/82 (97) 08/18/17 08:00 130 08/18/17 06:00 102 08/18/17 04:05 92 80 08/18/17 04:00 99.5 118 20 128/60 (82) 90 102/74 (83) 08/18/17 04:00 80 08/18/17 04:00 118 08/18/17 02:00 99 08/18/17 01:04 94 40 08/18/17 00:00 98 08/18/17 00:00 99.5 98 14 94/50 (65) 94 77/68 (71) 08/18/17 00:00 40 08/17/17 22:00 112 08/17/17 20:30 95 40 08/17/17 20:00 40 08/17/17 20:00 124 08/17/17 20:00 99.1 124 14 140/76 (97) 97 137/80 (99) 08/17/17 18:00 128 Intake & Output 08/18/17 08/18/17 07:00 19:00 Intake Total 625 ml 720 ml Output Total 1551 ml Balance -926 ml 720 ml Intake IV Total 400 ml 520 ml Tube Feeding 125 ml Other 100 ml 200 ml Output Urine Total 1550 ml Stool Total 1 ml Physical Exam CONSTITUTIONAL/GENERAL: This is a critically ill patient, in no apparent distress. TUBES/LINES/DRAINS: ETT, OG, Central line, PIV, wrist restraints, Doe, SCDs. SKIN: No jaundice, rashes, or lesions. Ecchymoses on upper extremities. No wounds seen anteriorly. Skin temperature appropriate. Not diaphoretic. EYES: Pupils equal and round and reactive. ENT: Hard of Hearing. Nose without bleeding or purulent drainage. Throat difficult to visualize due to tubes. CARDIOVASCULAR: tachycardic, S1, S2. RESPIRATORY/CHEST: Symmetric, unlabored respirations on vent. Clear to auscultation. GASTROINTESTINAL: Abdomen soft, distended. Bowel sounds present. GENITOURINARY: Without palpable bladder distension. Doe catheter in place. MUSCULOSKELETAL: Extremities with edema. No mottling or clubbing. NEUROLOGICAL: Awakens to voice/ exam. Appears anxious. Moves all extremities. PSYCHIATRIC: appears anxious when awake. . (Vashti Riley) Diagnostic Tests Laboratory Laboratory Tests Test 08/15/17 18:25 08/16/17 04:05 08/16/17 09:00 08/17/17 04:28 Troponin I 0.07 NG/ML (0.02-0.05) White Blood Count 16.0 TH/MM3 (4.0-11.0) 16.3 TH/MM3 (4.0-11.0) Red Blood Count 3.73 MIL/MM3 (4.00-5.30) 3.32 MIL/MM3 (4.00-5.30) Hemoglobin 11.6 GM/DL (11.6-15.3) 10.4 GM/DL (11.6-15.3) Hematocrit 35.3 % (35.0-46.0) 31.2 % (35.0-46.0) Mean Corpuscular Volume 94.7 FL (80.0-100.0) 94.0 FL (80.0-100.0) Mean Corpuscular Hemoglobin 31.2 PG (27.0-34.0) 31.4 PG (27.0-34.0) Mean Corpuscular Hemoglobin Concent 33.0 % (32.0-36.0) 33.4 % (32.0-36.0) Red Cell Distribution Width 14.4 % (11.6-17.2) 14.3 % (11.6-17.2) Platelet Count 190 TH/MM3 (150-450) 147 TH/MM3 (150-450) Mean Platelet Volume 8.1 FL (7.0-11.0) 8.0 FL (7.0-11.0) Neutrophils (%) (Auto) 94.9 % (16.0-70.0) 95.6 % (16.0-70.0) Lymphocytes (%) (Auto) 2.5 % (9.0-44.0) 2.2 % (9.0-44.0) Monocytes (%) (Auto) 1.7 % (0.0-8.0) 2.1 % (0.0-8.0) Eosinophils (%) (Auto) 0.7 % (0.0-4.0) 0.0 % (0.0-4.0) Basophils (%) (Auto) 0.2 % (0.0-2.0) 0.1 % (0.0-2.0) Neutrophils # (Auto) 15.2 TH/MM3 (1.8-7.7) 15.6 TH/MM3 (1.8-7.7) Lymphocytes # (Auto) 0.4 TH/MM3 (1.0-4.8) 0.4 TH/MM3 (1.0-4.8) Monocytes # (Auto) 0.3 TH/MM3 (0-0.9) 0.3 TH/MM3 (0-0.9) Eosinophils # (Auto) 0.1 TH/MM3 (0-0.4) 0.0 TH/MM3 (0-0.4) Basophils # (Auto) 0.0 TH/MM3 (0-0.2) 0.0 TH/MM3 (0-0.2) CBC Comment AUTO DIFF AUTO DIFF Differential Total Cells Counted 100 100 Neutrophils % (Manual) 40 % (16-70) 75 % (16-70) Band Neutrophils % 54 % (0-6) 10 % (0-6) Lymphocytes % 3 % (9-44) 7 % (9-44) Monocytes % 3 % (0-8) 7 % (0-8) Neutrophils # (Manual) 15.0 TH/MM3 (1.8-7.7) 14.0 TH/MM3 (1.8-7.7) Differential Comment FINAL DIFF MANUAL FINAL DIFF MANUAL Toxic Vacuolation PRESENT (NONE SEEN) PRESENT (NONE SEEN) Platelet Estimate NORMAL (NORMAL) NORMAL (NORMAL) Platelet Morphology Comment NORMAL (NORMAL) NORMAL (NORMAL) Red Cell Morphology Comment NORMAL (NORMAL) Blood Urea Nitrogen 50 MG/DL (7-18) 50 MG/DL (7-18) Creatinine 2.64 MG/DL (0.50-1.00) 2.82 MG/DL (0.50-1.00) Random Glucose 202 MG/DL (74-106) 166 MG/DL (74-106) Total Protein 5.1 GM/DL (6.4-8.2) 5.5 GM/DL (6.4-8.2) Albumin 1.8 GM/DL (3.4-5.0) 1.8 GM/DL (3.4-5.0) Calcium Level 6.6 MG/DL (8.5-10.1) 6.5 MG/DL (8.5-10.1) Alkaline Phosphatase 69 U/L (45-117) 79 U/L (45-117) Aspartate Amino Transf (AST/SGOT) 100 U/L (15-37) 94 U/L (15-37) Alanine Aminotransferase (ALT/SGPT) 47 U/L (10-53) 49 U/L (10-53) Total Bilirubin 0.2 MG/DL (0.2-1.0) 0.2 MG/DL (0.2-1.0) Sodium Level 140 MEQ/L (136-145) 140 MEQ/L (136-145) Potassium Level 4.2 MEQ/L (3.5-5.1) 3.4 MEQ/L (3.5-5.1) Chloride Level 109 MEQ/L (98-107) 104 MEQ/L (98-107) Carbon Dioxide Level 19.1 MEQ/L (21.0-32.0) 23.1 MEQ/L (21.0-32.0) Anion Gap 12 MEQ/L (5-15) 13 MEQ/L (5-15) Estimat Glomerular Filtration Rate 17 ML/MIN (>89) 16 ML/MIN (>89) Protein Corrected Calcium 7.6 MG/DL (8.5-10.1) 7.3 MG/DL (8.5-10.1) Triglycerides Level 77 MG/DL (42-150) Cholesterol Level 125 MG/DL (120-200) LDL Cholesterol 51 MG/DL (0-99) HDL Cholesterol 58.8 MG/DL (40.0-60.0) Cholesterol/HDL Ratio 2.12 RATIO Random Vancomycin Level 7.2 COMMENT 17.0 COMMENT Lactic Acid Level 2.7 mmol/L (0.4-2.0) Total Creatine Kinase 1828 U/L (26-192) 2448 U/L (26-192) Creatine Kinase MB 28.5 NG/ML (0.5-3.6) 20.4 NG/ML (0.5-3.6) Creatine Kinase MB % 1.6 % (0.0-4.0) 0.8 % (0.0-4.0) Metamyelocytes 1 % (0-1) Nucleated Red Blood Cells 1 /100 WBC (0-0) Phosphorus Level 2.5 MG/DL (2.5-4.9) Magnesium Level 1.7 MG/DL (1.5-2.5) Test 08/17/17 13:30 08/17/17 18:44 08/18/17 05:40 08/18/17 08:40 Blood Gas Puncture Site ART LINE ART LINE Blood Gas Patient Temperature 98.6 98.6 Blood Gas HCO3 23 mmol/L (22-26) 32 mmol/L (22-26) Blood Gas Base Excess -0.4 mmol/L (-2-2) 5.7 mmol/L (-2-2) Blood Gas Oxygen Saturation 97 % (90-100) 93 % (90-100) Arterial Blood pH 7.44 (7.380-7.420) 7.31 (7.380-7.420) Arterial Blood Partial Pressure CO2 35 mmHg (38-42) 65 mmHg (38-42) Arterial Blood Partial Pressure O2 127 mmHg (61-120) 79 mmHg (61-120) Arterial Blood Oxygen Content 13.9 Vol % (12.0-20.0) 15.0 Vol % (12.0-20.0) Arterial Blood Carboxyhemoglobin 0.6 % (0-4) 0.6 % (0-4) Arterial Blood Methemoglobin 1.2 % (0-2) 1.3 % (0-2) Blood Gas Hemoglobin 10.0 G/DL (12.0-16.0) 11.4 G/DL (12.0-16.0) Oxygen Delivery Device VENTILATOR VENTILATOR Blood Gas Ventilator Setting PRVC/AC 350/14 PRVCAC/VT 350/R14/P5 Blood Gas Inspired Oxygen 40 % 70 % Potassium Level 2.7 MEQ/L (3.5-5.1) 3.0 MEQ/L (3.5-5.1) White Blood Count 5.9 TH/MM3 (4.0-11.0) Red Blood Count 3.13 MIL/MM3 (4.00-5.30) Hemoglobin 10.0 GM/DL (11.6-15.3) Hematocrit 29.8 % (35.0-46.0) Mean Corpuscular Volume 95.2 FL (80.0-100.0) Mean Corpuscular Hemoglobin 32.1 PG (27.0-34.0) Mean Corpuscular Hemoglobin Concent 33.7 % (32.0-36.0) Red Cell Distribution Width 14.4 % (11.6-17.2) Platelet Count 97 TH/MM3 (150-450) Mean Platelet Volume 7.8 FL (7.0-11.0) Blood Urea Nitrogen 42 MG/DL (7-18) Creatinine 1.97 MG/DL (0.50-1.00) Random Glucose 122 MG/DL (74-106) Total Protein 4.8 GM/DL (6.4-8.2) Albumin 1.5 GM/DL (3.4-5.0) Calcium Level 6.8 MG/DL (8.5-10.1) Alkaline Phosphatase 63 U/L (45-117) Aspartate Amino Transf (AST/SGOT) 42 U/L (15-37) Alanine Aminotransferase (ALT/SGPT) 35 U/L (10-53) Total Bilirubin 0.1 MG/DL (0.2-1.0) Sodium Level 143 MEQ/L (136-145) Chloride Level 104 MEQ/L (98-107) Carbon Dioxide Level 33.1 MEQ/L (21.0-32.0) Anion Gap 6 MEQ/L (5-15) Estimat Glomerular Filtration Rate 24 ML/MIN (>89) Protein Corrected Calcium 8.0 MG/DL (8.5-10.1) Total Creatine Kinase 804 U/L (26-192) Creatine Kinase MB 4.6 NG/ML (0.5-3.6) Creatine Kinase MB % 0.6 % (0.0-4.0) Random Vancomycin Level 17.5 COMMENT (Vashti Riley) Result Diagram: 08/18/17 0540 08/18/17 0540 Microbiology Microbiology Date/Time Source Procedure Growth Status 08/14/17 22:45 Blood Peripheral Aerobic Blood Culture - Preliminary NO GROWTH IN 4 DAYS Resulted 08/14/17 22:45 Blood Peripheral Anaerobic Blood Culture - Preliminary NO GROWTH IN 4 DAYS Resulted 08/15/17 15:56 Cerebral Spinal Fluid Lumbar Puncture Gram Stain - Final Complete 08/15/17 15:56 Cerebral Spinal Fluid Lumbar Puncture CSF Culture - Final NO GROWTH IN 72 HOURS Complete 08/15/17 02:28 Stool Stool Cryptosporidium Exam Pending Ordered 08/15/17 02:28 Stool Stool Giardia Antigen (MARCIA) Pending Ordered 08/15/17 12:08 Sputum Endotracheal Gram Stain - Final Complete 08/15/17 12:08 Sputum Endotracheal Sputum Culture - Final HEAVY GROWTH NORMAL RESPIRATORY JARED Complete 08/14/17 22:45 Urine Catheterized Urine Urine Culture - Final NO GROWTH IN 48 HOURS. Complete Imaging Last Impressions Chest X-Ray 08/18/17 0600 Signed Impressions: Service Date/Time: Friday, August 18, 2017 03:13 - CONCLUSION: 1. Interval placement of nasogastric tube. 2. Bibasal opacity left greater than right with small left effusion. Jl Stanley MD Lumbar Puncture Fluoroscopy 08/15/17 0000 Signed Impressions: Service Date/Time: Tuesday, August 15, 2017 15:36 - CONCLUSION: 1. Uncomplicated fluoroscopically guided lumbar puncture. 2. Please note, requested opening pressures were not obtained due to technical difficulties. Shashi Moreno MD Brain MRI 08/15/17 0000 Signed Impressions: Service Date/Time: Tuesday, August 15, 2017 16:57 - CONCLUSION: 1. 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 2. Mild stenosis in the upper cervical spine as above. Esau Martell MD Abdomen/Pelvis CT 08/15/17 0000 Signed Impressions: Service Date/Time: Wednesday, August 16, 2017 00:25 - CONCLUSION: 1. Abnormal thickening of the descending colonic wall and the possibility of colitis should be entertained. There is also thickening of distal ileal wall which may be inflammatory as well. 2. There is mild anasarca with edema or inflammatory changes within the bilateral paracolic gutters extending down into the pelvis. 3. Small bilateral pleural effusions and bibasilar atelectasis and/or infiltrate. 4. Prominent ileocecal valve and possibility of lipoma at this site is not excluded. Josseline Villagomez MD Abdomen Ultrasound 08/15/17 0000 Signed Impressions: Service Date/Time: Tuesday, August 15, 2017 10:40 - CONCLUSION: 1. No abnormality is identified to explain the clinical symptoms. There is no hydronephrosis. 2. The liver is normal in size and echotexture. Adan Machuca MD Head CT 08/14/172 Signed Impressions: Service Date/Time: July 22:54 - CONCLUSION: Unremarkable study. Josseline Villagomez MD Procedures * 08/15/17-lumbar puncture by IR * 08/15/17 - right IJ central line, intubated. (Vashti Riley) Assessment and Plan Disease Oriented Problem List: (1) Acute respiratory failure (2) Acute renal failure (3) Rhabdomyolysis (4) Septic shock (5) Tachycardia (6) Hypotension (7) UTI (urinary tract infection) (8) Alcohol abuse Symptom Scale: (1) Pain 0-10 Scale: Unable to quantify (2) Dyspnea 0-10 Scale: Unable to quantify (3) Altered mental status 0-10 Scale: Unable to quantify (4) Anxiety 0-10 Scale: Unable to quantify Pertinent Non-Medical Issues Psychosocial: . Lives with daughter, Nicole. Has 3 daughters and 1 son. Spiritual: Je[employer] david. Legal: Patient is not currently capacitated to make her own healthcare decisions , uncertain if she will regain capacity. No written advanced directives. According to [place] statute healthcare proxy decision making falls to the majority of adult children, patient has 3 daughters and 1 son. Children are in agreement that Silvia Luis will serve as the family spokesperson /first contact. Ethical issues impacting care: No known concerns at this time. . Important Contacts * Silvia "Diane Luis, daughter/ 1st contact: [phone] * Jl Olson, son: or [phone] * Jessica, daughter: [phone] * Chelsea, daughter: [phone] . Prognosis Ms. Olson is an 82 year old admitted with rhabdomyolysis, septic shock uncertain etiology, dehydration, renal failure. At this point we will need additional information to determine overall prognosis. Given her advanced age, she remain high risk for further setbacks or decline. . Code Status: Full Code Plan * Patient is not currently capacitated to make her own healthcare decisions, uncertain if she will regain capacity. No written advanced directives. According to [facility] healthcare proxy decision making falls to the majority of adult children, patient has 3 daughters and 1 son. Children are in agreement that Silvia Luis will serve as the family spokesperson /first contact ([phone]) * FULL CODE. * Spoke with daughter at bedside, medical update provided. Goals remain aggressive. Offered palliative care family meeting and she verbalizes that her brother is struggling with the patient's critical illness. Provided palliative care number should family desire family meeting. * SYMPTOMS: Altered mental status: seems to be improving. Dyspnea: on mech vent. Pain: potential sources include intubation, chronic neck pain, infection , etc. Currently on Fentanyl drip 200 mcg. Anxiety: On propofol 5 mcg. No new medication recommendations at this time. * Palliative care number provided. * Palliative care will continue to throughout hospital course to assist with clarification of goals. . (Vashti Riley) Attestation To help prompt me to consider important information that might be impacting today's encounter and assessment, information from prior notes written by myself or my colleagues may have been "brought forward" into today's note. My signature on this note, however, is an attestation that I personally performed the exam, history, and/or decision-making noted today, and, unless otherwise indicated, the interactions with patient, family, and staff as well as the review of records all occurred today. I also attest that the listed assessment and stated plan reflect my best clinical judgment today based on the combination of historical information, prior notes, and today's exam/ interactions. When time spent is documented, it refers only to time spent today by the signer, or if indicated, combined time spent today by collaborating physician/nurse practitioner. (Vashti Riley) Collaborating MD Comments Chart reviewed. Case discussed with palliative care FIRE LOOKOUT. Above FIRE LOOKOUT note reviewed and I concur. . (Chacorta Potter MD) Vashti Riley Aug 18, 2017 17:10 Chacorta Potter MD Aug 27, 2017 16:37
[2017-08-18] MEDS ORDERED: DILTIAZEM HCL 25 MG/5 ML VIAL IV PUSH ONE (20:15)
[2017-08-18] MEDS: DILTIAZEM INJ 125 MG in SODIUM CHLORIDE 0.9% INJ 100 ML IV PRN (21:11)
[2017-08-18] MEDS: PROPOFOL 1000 MG/100 ML INJ 100 ML IV PRN (22:00)
[2017-08-19] VITALS (19 sets, daily range): BP systolic 88–115; BP diastolic 53–62; PULSE 71–107; RESP 13–17; TEMP 99.5–99.7; O2SAT 94–100
[2017-08-19] MEDS: FAMOTIDINE 20 MG/2 ML VIAL IV PUSH SCH ×2 (00:27→12:47)
[2017-08-19] MEDS: metroNIDAZOLE 500 MG INJ 100 ML IV SCH ×4 (02:59→20:12)
[2017-08-19] MEDS: fentaNYL DRIP 250 ML IV PRN ×2 (03:00→12:45)
[2017-08-19] MEDS: cefTRIAXone INJ 2,000 MG in SODIUM CHLORIDE 0.9% INJ 100 ML IV SCH (03:00)
[2017-08-19] MEDS: INSULIN NovoLIN REGULAR SUPPLEMENTAL SCALE SQ SCH ×6 (04:00→20:00)
[2017-08-19] MEDS: CHLORHEXIDINE GLUCONATE 2 % 1 PACK (2 CLOTHS)(taper/protocol) TOPICAL SCH (04:00)
[2017-08-19] MEDS: POTASSIUM CHLORIDE INJ 30 MEQ in SODIUM CHLORIDE 0.9% INJ 100 ML IV-CENTRAL SCH ×2 (04:32→07:43)
[2017-08-19 05:06] LABS: AUTOMATED NEUTROPHIL # 4.9 TH/MM3 (1.8-7.7); EOSINOPHIL % 0.4 % (0.0-4.0); HEMATOCRIT 27.6 % (35.0-46.0); HEMOGLOBIN 9.3 GM/DL (11.6-15.3); LYMPH % 6.3 % (9.0-44.0); LYMPHOCYTE # 0.4 TH/MM3 (1.0-4.8); MEAN CELL VOLUME 94.8 FL (80.0-100.0); MEAN CORPUSCULAR HEMOGLOBIN 32.1 PG (27.0-34.0); MEAN CORPUSCULAR HGB CONC 33.8 % (32.0-36.0); MEAN PLATELET VOLUME 7.9 FL (7.0-11.0); MONO % 11.9 % (0.0-8.0); MONOCYTE # 0.7 TH/MM3 (0-0.9); NEUT % 81.4 % (16.0-70.0); PLATELET COUNT 102 TH/MM3 (150-450); RED BLOOD COUNT 2.91 MIL/MM3 (4.00-5.30); RED CELL DISTRIBUTION WIDTH 14.2 % (11.6-17.2)
[2017-08-19 05:16] LABS: ALBUMIN 1.5 GM/DL (3.4-5.0); BICARBONATE 34.5 MEQ/L (21.0-32.0); CALCIUM-PROTEIN CORRECTED 8.2 MG/DL (8.5-10.1); CREATININE 1.08 MG/DL (0.50-1.00); MAGNESIUM 1.7 MG/DL (1.5-2.5); PHOSPHORUS 2.5 MG/DL (2.5-4.9); TOTAL BILIRUBIN ADULT 0.2 MG/DL (0.2-1.0); TOTAL PROTEIN 4.8 GM/DL (6.4-8.2)
[2017-08-19] MEDS: PROPOFOL 1000 MG/100 ML INJ 100 ML IV PRN ×4 (05:20→22:37)
[2017-08-19] MEDS: HYDROCORTISONE SOD SUCCINATE 100 MG VIAL IV PUSH SCH ×2 (06:00→16:48)
--- NOTE | 2017-08-19 07:08 | MB ---
cc: ROQUECARINAKIRA DATE OF CONSULTATION 08/18/2017 TIME: 06:[address] Contreras REASON FOR CONSULTATION Ischemic colitis. HISTORY OF PRESENT ILLNESS The patient is an 82-year-old female with a known history of alcohol abuse who under underwent a binge drinking episode and then approximately 24-36 hours later was found by her daughter in her bed, unresponsive, obtunded with urine and feces in her bed. The patient was brought to the emergency department, was seen by the emergency room physician, was admitted and eventually up-graded to the ICU for respiratory failure and altered mental status. The patient also of note had rhabdomyolsis, acute renal failure, concern for possible ischemic cerebral event. The patient is undergoing critical care management and underwent colonoscopy today by Dr. Contreras, was found to have severe ischemic colitis. Of note, a CT scan done on 08/16/2017 that did not reveal any free air or perforation but it showed significant thickening of the descending colon. The patient is status post previous what looks like some type of proctectomy by colorectal surgeons locally. LABORATORY VALUES CURRENTLY White cell count 5.9, hemoglobin 10.0. REVIEW OF SYSTEMS, ALL HISTORIES Obtained from the record. PAST MEDICAL HISTORY 1. Hypertension. 2. Sleep apnea. 3. 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 4. History of alcohol abuse. PAST SURGICAL HISTORY 1. Rectal prolapse surgery. 2. Cholecystectomy. 3. Hysterectomy. 4. History of breast augmentation, 5. C5-6. 6. Previous EGD and colonoscopies. ALLERGIES No known drug allergies. MEDICATIONS 1. Propofol. 2. Ceftriaxone. 3. Solu-Cortef. 4. Metoprolol. 5. Heparin. 6. Insulin. 7. Aspirin. 8. Flagyl. SOCIAL HISTORY History of binge drinking. No documented history of tobacco use or illicit drug use. FAMILY HISTORY Noncontributory. PHYSICAL EXAMINATION Vital signs: Heart rate 112, blood pressure 111/59. Oxygen saturation is 100%. General: The patient is an acutely ill elderly female in the Intensive Care Unit on the ventilator. Head: Normocephalic, atraumatic. Pupils equal, round, reactive to light and accommodation. Sclerae is anicteric. Oral cavity is orotracheally intubated. Neck: Supple. No JVD. Lungs: Breath sounds present bilaterally. Heart: Rate is tachycardic. No murmurs. Abdomen: Soft, mildly distended, tympanic. No rebound tenderness or rigidity. No clinical signs of peritonitis. A transverse incision is seen with a well-healed hernia. Rectal: Exam deferred. Hypoactive bowel sounds. No ascites, no organomegaly, no masses. Extremities: Acute edema. Neurologic Exam: The patient opens eyes spontaneously, does not follow commands. Only moving head and neck, not moving extremities. Not oriented. ASSESSMENT AND PLAN The patient is an 82-year-old female with rhabdomyolysis, hypoxic event, adequately resuscitated in the Intensive Care Unit. The patient had some sequelae of her hypoxemia, possible stroke, acute renal failure which is resolving as well as ischemic colitis. This is likely a low-flow ischemic colitis. I discussed this with Dr. Contreras and we agree with management which was to continue optimal perfusion. The patient has had oxygenation as well as appropriate antibiotics. We will follow the patient closely with abdominal examinations and clinically for any signs of worsening abdominal sepsis or perforation. This patient will likely resolve her ischemic colitis with her current high-quality critical care. However, if the patient has the unexpected event of a perforation, again worsening sepsis, we will follow along with the patient and bring the patient to the operating room immediately. I did discuss this plan with the daughter and she feels that, as the long as the patient has a chance of recovering mentally, that she would want everything done medically to support the patient. The patient's daughter does state, if her mother is found to have a severe mental disability or injury that would cause her to lose her quality of life, then that she would want comfort measures. Thank you very much for this consultation. We will follow the patient. MD SHAR Del Toro/SSB /6:08 PM /6:50 AM
[2017-08-19] MEDS: HEPARIN SODIUM - SQ 10,000 UNITS/ML VIAL SQ SCH ×2 (08:44→20:12)
[2017-08-19] MEDS: THIAMINE HCL 100 MG TAB PO SCH (08:44)
[2017-08-19] MEDS: ASPIRIN 81 MG CHEW TAB OG-TUBE SCH (08:45)
[2017-08-19] MEDS: MULTIVITAMIN TAB PO SCH (08:45)
[2017-08-19] MEDS: FOLIC ACID 1 MG TAB PO SCH (08:46)
[2017-08-19] MEDS: METOPROLOL TARTRATE 25 MG TAB PO SCH (08:46)
[2017-08-19] MEDS: SODIUM CHLORIDE 0.9% FLUSH 10 ML FLUSH IV FLUSH SCH ×2 (08:47→20:12)
[2017-08-19 09:33] LABS: HSV 1,PCR Negative (Negative)
[2017-08-19] MEDS ORDERED: VASOPRESSIN 40 U/D5W 100 ML Titrate, Post Cardiac Surgery IV PRN ×2 (10:30)
[2017-08-19] MEDS ORDERED: TERBUTALINE INJ 1 MG/ML AMP SQ PRN (10:30)
[2017-08-19] MEDS: DILTIAZEM INJ 125 MG in SODIUM CHLORIDE 0.9% INJ 100 ML IV PRN (10:57)
--- NOTE | 2017-08-19 11:12 | HHI.IDPN ---
Subjective Subjective Remarks Ms. Olson is an 82 year old female with past medical history of hypertension, possible sleep apnea, chronic neck pain, sciatica, alcohol abuse, arthritis, chronic rectal prolapse with bowel incontinence and anxiety. Patients daughter reports she was away for last week (normally she lives with Mom). She checked on her mom each night. The night prior to admission patient and daughter spoke to each other and no reported fever or change in behavior etc noted. No recent bounced checks, change in behavior, fires, falls or doors left unopened or such security concerns. She was found by her daughter lying in bed. On questioning patient was not found vomiting and no seizures. But patient was found in urine and feces. With this background patient presented to [facility] ER on when daughter arrived home to find patient laying on the bed covered in urine and feces. She was obtunded and 911 was called. Upon arrival to the ER: * VS - 100.2, HR 104, RR 18, BP 125/55, O2 sat 95% on room air. * WBC 10.2, hgb 13.8, hct 41.6, platelets 304, neutrophils 91.3% * BUN 52, creatinine 3.39, glucose 177, sodium 141, potassium 5.1, chloride 103 , GFR 13 * Lactic acid 6.3 * TCK 3855, CK-MB 113.6, CK-MB 2.9% * CT head - unremarkable * CXR - minimal basilar atelectasis, no effusion or pneumothorax [facility] for severe dehydration. acute renal failure, rhabdomyolysis, lactic acidosis, possible UTI, sepsis. Overnight she developed tachycardia, hypotension and hypoxemia. She was transferred to ICU placed on pressor support. She was started on heparin drip per PE protocol. Assistant Operator was consulted for hypotension, septic shock. On non -rebreather with with oxygen saturation 90% and BP 79/50. Since admission she was intubated and placed on [facility] vent. Infectious disease consulted for evaluation and M'ment of septic shock with meningoencephalitis. Overnight events and chart reviewed. On vent, opens eyes spontaneously. No fevers no rash no diarrhea s/p colonoscopy: cw ischemic colitis. s/b surgery plan on medical management. Antibiotics flagyl cftx Lines Line sites with no e.o infections. Past Medical History reviewed Allergies: Coded Allergies: No Known Allergies (Verified Allergy, Unknown, 08/15/17) Objective . Vital Signs Date Time Temp Pulse Resp B/P (MAP) Pulse Ox O2 Delivery O2 Flow Rate FiO2 08/19/17 10:57 87 117/53 08/19/17 10:38 97 40 08/19/17 08:08 94 40 08/19/17 06:38 93 08/19/17 06:18 97 50 08/19/17 06:00 106 08/19/17 05:04 96 60 08/19/17 04:32 102 08/19/17 04:00 99.5 102 17 115/62 (79) 97 08/19/17 04:00 102 08/19/17 04:00 60 08/19/17 02:00 107 08/19/17 01:12 105 08/19/17 00:00 70 08/19/17 00:00 95 08/19/17 00:00 99.0 95 13 99/57 (71) 99 Arterial Line 08/18/17 23:52 98 70 08/18/17 23:09 104 105/59 08/18/17 22:00 99.1 95 16 99/55 (70) 99 08/18/17 22:00 95 08/18/17 21:11 101 95/61 08/18/17 20:26 98 70 08/18/17 20:00 70 08/18/17 20:00 133 08/18/17 20:00 100.2 133 18 101/60 (74) 99 08/18/17 18:00 118 08/18/17 16:01 99 70 08/18/17 16:00 112 08/18/17 16:00 118 17 101/66 (78) 97 111/59 (76) 08/18/17 16:00 70 08/18/17 14:00 113 08/18/17 12:00 111 08/18/17 12:00 99.4 111 16 121/60 (80) 96 122/57 (78) 08/18/17 12:00 70 . Laboratory Tests Test 08/18/17 05:40 08/19/17 04:15 White Blood Count 5.9 TH/MM3 6.0 TH/MM3 Red Blood Count 3.13 MIL/MM3 2.91 MIL/MM3 Hemoglobin 10.0 GM/DL 9.3 GM/DL Hematocrit 29.8 % 27.6 % Mean Corpuscular Volume 95.2 FL 94.8 FL Mean Corpuscular Hemoglobin 32.1 PG 32.1 PG Mean Corpuscular Hemoglobin Concent 33.7 % 33.8 % Red Cell Distribution Width 14.4 % 14.2 % Platelet Count 97 TH/MM3 102 TH/MM3 Mean Platelet Volume 7.8 FL 7.9 FL Neutrophils (%) (Auto) 81.4 % Lymphocytes (%) (Auto) 6.3 % Monocytes (%) (Auto) 11.9 % Eosinophils (%) (Auto) 0.4 % Basophils (%) (Auto) 0.0 % Neutrophils # (Auto) 4.9 TH/MM3 Lymphocytes # (Auto) 0.4 TH/MM3 Monocytes # (Auto) 0.7 TH/MM3 Eosinophils # (Auto) 0.0 TH/MM3 Basophils # (Auto) 0.0 TH/MM3 CBC Comment DIFF FINAL Differential Comment Laboratory Tests Test 08/17/17 18:44 08/18/17 05:40 08/18/17 20:55 08/19/17 04:15 Potassium Level 2.7 MEQ/L 3.0 MEQ/L 3.0 MEQ/L 3.0 MEQ/L Blood Urea Nitrogen 42 MG/DL 31 MG/DL Creatinine 1.97 MG/DL 1.08 MG/DL Random Glucose 122 MG/DL 116 MG/DL Total Protein 4.8 GM/DL 4.8 GM/DL Albumin 1.5 GM/DL 1.5 GM/DL Calcium Level 6.8 MG/DL 7.0 MG/DL Alkaline Phosphatase 63 U/L 58 U/L Aspartate Amino Transf (AST/SGOT) 42 U/L 34 U/L Alanine Aminotransferase (ALT/SGPT) 35 U/L 29 U/L Total Bilirubin 0.1 MG/DL 0.2 MG/DL Sodium Level 143 MEQ/L 148 MEQ/L Chloride Level 104 MEQ/L 106 MEQ/L Carbon Dioxide Level 33.1 MEQ/L 34.5 MEQ/L Anion Gap 6 MEQ/L 8 MEQ/L Estimat Glomerular Filtration Rate 24 ML/MIN 49 ML/MIN Protein Corrected Calcium 8.0 MG/DL 8.2 MG/DL Total Creatine Kinase 804 U/L Creatine Kinase MB 4.6 NG/ML Creatine Kinase MB % 0.6 % Phosphorus Level 2.5 MG/DL Magnesium Level 1.7 MG/DL Imaging Last Impressions Lumbar Puncture Fluoroscopy 08/15/17 0000 Signed Impressions: Service Date/Time: Tuesday, August 15, 2017 15:36 - CONCLUSION: 1. Uncomplicated fluoroscopically guided lumbar puncture. 2. Please note, requested opening pressures were not obtained due to technical difficulties. Shashi Moreno MD Chest X-Ray 08/15/17 Signed Impressions: Service Date/Time: Tuesday, August 15, 2017 08:15 - CONCLUSION: 1. ETT and right IJ central line in good position. No pneumothorax. 2. Stable mild left lower lung zone airspace disease, presumably atelectasis. Douglas Jean MD Brain MRI 08/15/17 Signed Impressions: Service Date/Time: Tuesday, August 15, 2017 16:57 - CONCLUSION: 1. 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 2. Mild stenosis in the upper cervical spine as above. Esau Martell MD Abdomen/Pelvis CT 08/15/17 Signed Impressions: Service Date/Time: Wednesday, August 16, 2017 00:25 - CONCLUSION: 1. Abnormal thickening of the descending colonic wall and the possibility of colitis should be entertained. There is also thickening of distal ileal wall which may be inflammatory as well. 2. There is mild anasarca with edema or inflammatory changes within the bilateral paracolic gutters extending down into the pelvis. 3. Small bilateral pleural effusions and bibasilar atelectasis and/or infiltrate. 4. Prominent ileocecal valve and possibility of lipoma at this site is not excluded. Josseline Villagomez MD Abdomen Ultrasound 08/15/17 Signed Impressions: Service Date/Time: Tuesday, August 15, 2017 10:40 - CONCLUSION: 1. No abnormality is identified to explain the clinical symptoms. There is no hydronephrosis. 2. The liver is normal in size and echotexture. Adan Machuca MD Head CT 08/14/[id number] Signed Impressions: Service Date/Time: July 22:54 - CONCLUSION: Unremarkable study. Josseline Villagomez MD Physical Exam GENERAL: This is a well-nourished, well-developed patient, in no apparent distress. SKIN: No rashes, ecchymoses or lesions. Cool and dry. HEAD: Atraumatic. Normocephalic. No temporal or scalp tenderness. EYES: Pupils equal round and reactive. Extraocular motions intact. No scleral icterus. No injection or drainage. ENT: Intubated. NECK: Trachea midline. Supple, nontender, CARDIOVASCULAR: + murmur, no gallops, rub RESPIRATORY: Clear to auscultation. Breath sounds equal bilaterally. No wheezes , rales, or rhonchi. GASTROINTESTINAL: Abdomen soft, non-tender ( no reaction to palpation), + at least moderately distended. MUSCULOSKELETAL: Extremities without clubbing, cyanosis, or edema. No joint tenderness, effusion, or edema noted. No calf tenderness. Negative Homans sign bilaterally. NEUROLOGICAL: Opens eyes spontaneously, moves all 4 extremities. Psych unable to assess IV line sites with no e.o infection. 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 Alcohol abuse: at risk for withdrawal. Acute rhabdomyolysis: ? seizures. Acute renal failure: sepsis, prerenal, rhabdomyolysis. Colitis clinically and radiologically ; c.diff negative ? ischemic Recs: Cont Ceftriaxone IV q24hrs. Continue Flagyl IV. Plan on few more days unless concern for bowel leak or peritonitis. For now covering for aspiration pneumonia. CSF HSV 1/2 negative. Follow cultures. Follow clinically. juana RN juana Patients daughters in the room. Piedad Corea MD Aug 19, 2017 11:12
[2017-08-19] MEDS: PHENYLEPHRINE 40 MG in D5W 500 ML IV PRN (11:24)
--- NOTE | 2017-08-19 11:55 | RADRPT ---
EXAM DATE/TIME: 08/19/2017 10:58 [place] COMPARISON: No previous studies available for comparison. INDICATIONS : Ischemic Colitis. MEDICAL HISTORY : Hypertension. Diverticulitis. Arthritis. Anxiety. SURGICAL HISTORY : Colon resection. Left knee fracture. Right arm fracture. Breast augmentation. Cholecystectomy. Append ectomy. Hysterectomy. Bilateral cataracts removal with lens implants. ENCOUNTER: Subsequent ACUITY: 1 week PAIN SCORE: Non-responsive. LOCATION: Bilateral abdomen. FINDINGS: The bowel gas pattern appears normal. No free air is identified. No organomegaly is evident. A nasoga stric tube is in place with its tip in the stomach. There are surgical clips in the right upper quadr ant compatible with prior cholecystectomy. CONCLUSION: 1. No evidence of obstruction. Mario Rosales MD on August 19, 2017 at 11:52 Board Certified Radiologist. This report was verified electronically.
[2017-08-19] MEDS ORDERED: SODIUM CHLOR 0.9% 1000 ML INJ 1,000 ML IV ONE (12:00)
--- NOTE | 2017-08-19 14:02 | HHI.PR ---
cc: Rolo Guadalupe MD Subjective Subjective Notes Intubated/Sedated Objective Vitals/I&O Vital Signs Date Time Temp Pulse Resp B/P (MAP) Pulse Ox O2 Delivery O2 Flow Rate FiO2 08/19/17 12:00 72 08/19/17 12:00 99.5 16 88/53 (65) 98 08/19/17 12:00 40 Labs Laboratory Tests Test 08/18/17 20:55 08/19/17 04:15 Potassium Level 3.0 3.0 White Blood Count 6.0 Red Blood Count 2.91 Hemoglobin 9.3 Hematocrit 27.6 Mean Corpuscular Volume 94.8 Mean Corpuscular Hemoglobin 32.1 Mean Corpuscular Hemoglobin Concent 33.8 Red Cell Distribution Width 14.2 Platelet Count 102 Mean Platelet Volume 7.9 Neutrophils (%) (Auto) 81.4 Lymphocytes (%) (Auto) 6.3 Monocytes (%) (Auto) 11.9 Eosinophils (%) (Auto) 0.4 Basophils (%) (Auto) 0.0 Neutrophils # (Auto) 4.9 Lymphocytes # (Auto) 0.4 Monocytes # (Auto) 0.7 Eosinophils # (Auto) 0.0 Basophils # (Auto) 0.0 CBC Comment DIFF FINAL Differential Comment Blood Urea Nitrogen 31 Creatinine 1.08 Random Glucose 116 Total Protein 4.8 Albumin 1.5 Calcium Level 7.0 Phosphorus Level 2.5 Magnesium Level 1.7 Alkaline Phosphatase 58 Aspartate Amino Transf (AST/SGOT) 34 Alanine Aminotransferase (ALT/SGPT) 29 Total Bilirubin 0.2 Sodium Level 148 Chloride Level 106 Carbon Dioxide Level 34.5 Anion Gap 8 Estimat Glomerular Filtration Rate 49 Protein Corrected Calcium 8.2 Date/Time Source Procedure Growth Status 08/14/17 22:45 Blood Peripheral Aerobic Blood Culture - Final NO GROWTH IN 5 DAYS Complete 08/14/17 22:45 Blood Peripheral Anaerobic Blood Culture - Final NO GROWTH IN 5 DAYS Complete 08/15/17 15:56 Cerebral Spinal Fluid Lumbar Puncture Gram Stain - Final Complete 08/15/17 15:56 Cerebral Spinal Fluid Lumbar Puncture CSF Culture - Final NO GROWTH IN 72 HOURS Complete 08/15/17 02:28 Stool Stool Cryptosporidium Exam Pending Ordered 08/15/17 02:28 Stool Stool Giardia Antigen (MARCIA) Pending Ordered 08/15/17 12:08 Sputum Endotracheal Gram Stain - Final Complete 08/15/17 12:08 Sputum Endotracheal Sputum Culture - Final HEAVY GROWTH NORMAL RESPIRATORY JARED Complete 08/14/17 22:45 Urine Catheterized Urine Urine Culture - Final NO GROWTH IN 48 HOURS. Complete Cardiovascular: Regular Lungs: Clear Abdomen: Other (midly distended; non tender ) Extremities: Other (BLE edema ) A/P Assessment and Plan 82 year old female with ischemic colitis -1L bolus stat; KUB stat -Vent per CCM -Continue medical management at this time -Discussed with patient's daughter at bedside Attending Statement The exam, history, and the medical decision-making described in the above note were completed with the assistance of the mid-level provider. I reviewed and agree with the findings presented. I attest that I had a [id number] encounter with the patient on the same day, and personally performed and documented my assessment and findings in the medical record. abdomen soft, non-distended, no peritonitis critically ill, poor prognosis will only operate if patient develops perforation continue medical care, will follow Yumiko Flores/Aboriginal Education Teacher TRACY Aug 19, 2017 14:02 Rolo Guadalupe MD Aug 29, 2017 12:14
--- NOTE | 2017-08-19 15:09 | HHI.GIFU ---
Subjective Remarks Pt remains intubated and mechanically ventilated Daughters at bedside No stool documented (Linda Meyers) Objective Vitals I&O Vital Signs Date Time Temp Pulse Resp B/P (MAP) Pulse Ox O2 Delivery O2 Flow Rate FiO2 08/19/17 14:00 74 08/19/17 13:58 100 40 08/19/17 12:00 72 08/19/17 12:00 99.5 71 16 88/53 (65) 98 08/19/17 12:00 40 08/19/17 11:24 83 85/49 08/19/17 10:57 87 117/53 08/19/17 10:38 97 40 08/19/17 10:00 90 08/19/17 08:08 94 40 08/19/17 08:00 99 08/19/17 08:00 99.7 99 16 101/58 (72) 96 08/19/17 08:00 60 08/19/17 06:38 93 08/19/17 06:18 97 50 08/19/17 06:00 106 08/19/17 05:04 96 60 08/19/17 04:32 102 08/19/17 04:00 99.5 102 17 115/62 (79) 97 08/19/17 04:00 102 08/19/17 04:00 60 08/19/17 02:00 107 08/19/17 01:12 105 08/19/17 00:00 70 08/19/17 00:00 95 08/19/17 00:00 99.0 95 13 99/57 (71) 99 Arterial Line 08/18/17 23:52 98 70 08/18/17 23:09 104 105/59 08/18/17 22:00 99.1 95 16 99/55 (70) 99 08/18/17 22:00 95 08/18/17 21:11 101 95/61 08/18/17 20:26 98 70 08/18/17 20:00 70 08/18/17 20:00 133 08/18/17 20:00 100.2 133 18 101/60 (74) 99 08/18/17 18:00 118 08/18/17 16:01 99 70 08/18/17 16:00 112 08/18/17 16:00 118 17 101/66 (78) 97 111/59 (76) 08/18/17 16:00 70 I/O 08/18/17 08/18/17 08/18/17 08/19/17 08/19/17 08/19/17 07:00 15:00 23:00 07:00 15:00 23:00 Intake Total 625 ml 200 ml 820 ml 550 ml Output Total 1551 ml 1450 ml 1000 ml Balance -926 ml 200 ml -630 ml -450 ml Intake IV Total 400 ml 820 ml 550 ml Tube Feeding 125 ml 0 ml Other 100 ml 200 ml Output Urine Total 1550 ml 1450 ml 1000 ml Stool Total 1 ml # Bowel Movements 2 Laboratory Laboratory Tests Test 08/18/17 20:55 08/19/17 04:15 Potassium Level 3.0 3.0 White Blood Count 6.0 Red Blood Count 2.91 Hemoglobin 9.3 Hematocrit 27.6 Mean Corpuscular Volume 94.8 Mean Corpuscular Hemoglobin 32.1 Mean Corpuscular Hemoglobin Concent 33.8 Red Cell Distribution Width 14.2 Platelet Count 102 Mean Platelet Volume 7.9 Neutrophils (%) (Auto) 81.4 Lymphocytes (%) (Auto) 6.3 Monocytes (%) (Auto) 11.9 Eosinophils (%) (Auto) 0.4 Basophils (%) (Auto) 0.0 Neutrophils # (Auto) 4.9 Lymphocytes # (Auto) 0.4 Monocytes # (Auto) 0.7 Eosinophils # (Auto) 0.0 Basophils # (Auto) 0.0 CBC Comment DIFF FINAL Differential Comment Blood Urea Nitrogen 31 Creatinine 1.08 Random Glucose 116 Total Protein 4.8 Albumin 1.5 Calcium Level 7.0 Phosphorus Level 2.5 Magnesium Level 1.7 Alkaline Phosphatase 58 Aspartate Amino Transf (AST/SGOT) 34 Alanine Aminotransferase (ALT/SGPT) 29 Total Bilirubin 0.2 Sodium Level 148 Chloride Level 106 Carbon Dioxide Level 34.5 Anion Gap 8 Estimat Glomerular Filtration Rate 49 Protein Corrected Calcium 8.2 Date/Time Source Procedure Growth Status 08/14/17 22:45 Blood Peripheral Aerobic Blood Culture - Final NO GROWTH IN 5 DAYS Complete 08/14/17 22:45 Blood Peripheral Anaerobic Blood Culture - Final NO GROWTH IN 5 DAYS Complete 08/15/17 15:56 Cerebral Spinal Fluid Lumbar Puncture Gram Stain - Final Complete 08/15/17 15:56 Cerebral Spinal Fluid Lumbar Puncture CSF Culture - Final NO GROWTH IN 72 HOURS Complete 08/15/17 02:28 Stool Stool Cryptosporidium Exam Pending Ordered 08/15/17 02:28 Stool Stool Giardia Antigen (MARCIA) Pending Ordered 08/15/17 12:08 Sputum Endotracheal Gram Stain - Final Complete 08/15/17 12:08 Sputum Endotracheal Sputum Culture - Final HEAVY GROWTH NORMAL RESPIRATORY JARED Complete 08/14/17 22:45 Urine Catheterized Urine Urine Culture - Final NO GROWTH IN 48 HOURS. Complete Imaging Last Impressions Abdomen X-Ray 08/19/17 0000 Signed Impressions: Service Date/Time: Saturday, August 19, 2017 10:58 - CONCLUSION: 1. No evidence of obstruction. Mario Rosales MD Chest X-Ray 08/18/17 0600 Signed Impressions: Service Date/Time: Friday, August 18, 2017 03:13 - CONCLUSION: 1. Interval placement of nasogastric tube. 2. Bibasal opacity left greater than right with small left effusion. Jl Stanley MD Lumbar Puncture Fluoroscopy 08/15/17 0000 Signed Impressions: Service Date/Time: Tuesday, August 15, 2017 15:36 - CONCLUSION: 1. Uncomplicated fluoroscopically guided lumbar puncture. 2. Please note, requested opening pressures were not obtained due to technical difficulties. Shashi Moreno MD Brain MRI 08/15/17 0000 Signed Impressions: Service Date/Time: Tuesday, August 15, 2017 16:57 - CONCLUSION: 1. 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 2. Mild stenosis in the upper cervical spine as above. Esau Martell MD Abdomen/Pelvis CT 08/15/17 0000 Signed Impressions: Service Date/Time: Wednesday, August 16, 2017 00:25 - CONCLUSION: 1. Abnormal thickening of the descending colonic wall and the possibility of colitis should be entertained. There is also thickening of distal ileal wall which may be inflammatory as well. 2. There is mild anasarca with edema or inflammatory changes within the bilateral paracolic gutters extending down into the pelvis. 3. Small bilateral pleural effusions and bibasilar atelectasis and/or infiltrate. 4. Prominent ileocecal valve and possibility of lipoma at this site is not excluded. Josseline Villagomez MD Abdomen Ultrasound 08/15/17 0000 Signed Impressions: Service Date/Time: Tuesday, August 15, 2017 10:40 - CONCLUSION: 1. No abnormality is identified to explain the clinical symptoms. There is no hydronephrosis. 2. The liver is normal in size and echotexture. Adan Machuca MD Head CT 08/14/172231 Signed Impressions: Service Date/Time: July 22:54 - CONCLUSION: Unremarkable study. Josseline Villagomez MD Physical Exam HEENT: Normocephalic; atraumatic CHEST: Synchronized with ventilator, mechanically ventilated via ETT CARDIAC: RRR ABDOMEN: Distended, soft, bowel sounds faint EXTREMITIES: (+) extremity edema SKIN: Normal; no rash; no jaundice. RECYCLING OR RUBBISH COLLECTOR: Sedated (Linda Meyers) Assessment and Plan Plan ASSESSMENT - colitis CT suggestive colitis, poss ileitis, prominent ileocecal valve. C diff neg. stool studies neg, giardia and cryptosporidium pending. EGD and colonoscopy 2009 Dr Contreras, findings of tortuous esophagus, colon polyp, hemorrhoids. hx intermittent diarrhea and some fecal incontinence- d/w daughter at length - anemia - likely multifactorial last EGD/colon as above - isolated AST elevation - unclear significance. hx heavy ETOH use, rhabdomyolysis - leukocytosis - wbc 16.3 today, has been trending up. ID following - acute renal failure, nephrology following (08/19) --> Remains sedated and mechanically ventilated via ETT. No stool documented overnight. S/P colonoscopy yesterday --> Large sized circumferential diffuse colitis was found in the sigmoid colon and descending colon; necrotic, dusky appearing mucosa. Consistent with severe ischemia. This is consistent with ischemic colitis. Internal and external hemorrhoids. Pt evaluated by GS, not a surgical candidate. Recommendations: - Supportive care - Not much to add from a GI standpoint, we will sign off, please reconsult as needed Pt has been seen and examined by myself and Dr. Contreras and this note is written on his behalf (Linda Meyers) Physician Comments Seen and examined with TRACY, no bleeding. Remains intubated and sedated. Appreciate surgery consult. Supportive care for now. TF as tolerated. Gi betty sign off. Reconsult as needed. Will need repeat colonoscopy once more stable. Thank you (Tanvi Contreras MD) Linda Meyers Aug 19, 2017 15:09 Tanvi Contreras MD Aug 19, 2017 15:38
--- NOTE | 2017-08-19 15:16 | HHI.CCPN ---
Subjective Remarks/Hospital Course Patient is an 82-year-old female with past medical history of irritable bowel syndrome, hypertension, arthritis, diverticulitis who presented to the [facility] ED after she was found lying on her bed with urine and feces all around her bed. In addition, the patient was altered and obtunded. Most of the history was obtained from reviewing the medical records. Her laboratory data showed acute renal failure with BUN of 52, creatinine 3.39 and lactic acidosis with a lactic acid level of 6.3. In addition, the patient was in rhabdomyolysis with elevated CK at 3855. She was admitted under the hospitalist service; however, a HaliCAT was called due to worsening mental status, hypertension and hypoxemia. She was transferred to [facility] and critical care medicine was consulted for critical care management. When seen, the patient was lethargic, not following any commands, hypotensive. She was subsequently intubated by myself and a right internal jugular central line was placed for hemodynamic monitoring. ABG post intubation showed a pH of 7.31, co2 of 30, pA02 of 117, bicarbonate 15 and saturation of 96% on PRVC rate of 14, tidal volume 350 with IT:1, PEEP 5 and FIO2 of 100%. She was given two liter boluses of normal saline and placed on a bicarbonate drip. Her lactic acid level is trending down and is currently 3.4 from 6.3 on arrival. In addition, her renal function is improving with IV hydration. Her creatinine level is 2.29 from 3.39. Due to hypotension, Levophed was started. A CT scan of the brain in the emergency department was unremarkable. Her initial chest x-ray showed minimal basilar atelectasis, no effusions or pneumothoraces. According to the patient's family, the patient has been intermittently binge drinking. In addition, they report her having diarrhea for a few days. She had a low-grade fever with a temperature of 100.2 last night. 08/16 Patient is sedated with Fentanyl drip intubated and on Levophed 5 mics. On Bicarb drip. MRI brain yesterday showed small lacunar infarcts in left cerebellar hemisphere and right parietal lobe. Lp showed clear CSF, 17 wbc. Afebrile.Renal function worse today with Cr: 2.64 from 2.29 08/17 Patient remains sedated and intubated. On Bicarb drip. Off Levophed renal function slightly worse today with Cr: 2.82 from 2.64 and UOP: 550 ml in 24 hrs 08/18 Patient bit through ETT overnight s/p new ETT placement using tube exchanger. Sedated with Diprivan and Fentanyl. Afebrile. Renal function is improving with Cr: 1.97 from 2.82. On Bicarb drip. Tube feeds held for possible colonoscopy today. 08/19: Remains sedated, orally intubated on mechanical ventilation. Colonoscopy done yesterday revealed ischemic colitis. Has been evaluated by general surgery. Patient went into A. fib with RVR last night and was started on a Cardizem drip. On Levophed for hypotension Objective Vital Signs Date Time Temp Pulse Resp B/P (MAP) Pulse Ox O2 Delivery O2 Flow Rate FiO2 08/19/17 14:00 74 08/19/17 13:58 100 40 08/19/17 12:00 99.5 16 88/53 (65) Intake and Output 08/19/17 08/19/17 08/20/17 08:00 16:00 00:00 Intake Total 550 ml Output Total 1000 ml Balance -450 ml Result Diagram: 08/19/17 0415 08/19/17 0415 Imaging Last Impressions Chest X-Ray 08/18/17 0600 Signed Impressions: Service Date/Time: Friday, August 18, 2017 03:13 - CONCLUSION: 1. Interval placement of nasogastric tube. 2. Bibasal opacity left greater than right with small left effusion. Jl Stanley MD Lumbar Puncture Fluoroscopy 08/15/17 0000 Signed Impressions: Service Date/Time: Tuesday, August 15, 2017 15:36 - CONCLUSION: 1. Uncomplicated fluoroscopically guided lumbar puncture. 2. Please note, requested opening pressures were not obtained due to technical difficulties. Shashi Moreno MD Brain MRI 08/15/17 0000 Signed Impressions: Service Date/Time: Tuesday, August 15, 2017 16:57 - CONCLUSION: 1. 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 2. Mild stenosis in the upper cervical spine as above. Esau Martell MD Abdomen/Pelvis CT 08/15/17 0000 Signed Impressions: Service Date/Time: Wednesday, August 16, 2017 00:25 - CONCLUSION: 1. Abnormal thickening of the descending colonic wall and the possibility of colitis should be entertained. There is also thickening of distal ileal wall which may be inflammatory as well. 2. There is mild anasarca with edema or inflammatory changes within the bilateral paracolic gutters extending down into the pelvis. 3. Small bilateral pleural effusions and bibasilar atelectasis and/or infiltrate. 4. Prominent ileocecal valve and possibility of lipoma at this site is not excluded. Josseline Villagomez MD Abdomen Ultrasound 08/15/17 0000 Signed Impressions: Service Date/Time: Tuesday, August 15, 2017 10:40 - CONCLUSION: 1. No abnormality is identified to explain the clinical symptoms. There is no hydronephrosis. 2. The liver is normal in size and echotexture. Adan Machuca MD Head CT [id number] Signed Impressions: Service Date/Time: July 22:54 - CONCLUSION: Unremarkable study. Josseline Villagomez MD Objective Remarks GENERAL: Patient is 82 yo critically ill intubated and sedated SKIN: Warm and dry. HEAD: Normocephalic. EYES: No scleral icterus. No injection or drainage. NECK: Supple, trachea midline. No JVD or lymphadenopathy. Orally intubated CARDIOVASCULAR: Regular rate and rhythm without murmurs, gallops, or rubs. RESPIRATORY: Breath sounds equal bilaterally. No accessory muscle use. GASTROINTESTINAL: Abdomen soft, non-tender, nondistended. Bowel sounds sluggish MUSCULOSKELETAL: No cyanosis, or edema. Neuro: sedated, intubated A/P Assessment and Plan 1. VDRF 2. Encephalopathy. 3. Small lacunar infarcts 4. Lactic acidemia. 5. Acute kidney injury. 6. Rhabdomyolysis. 7. Diarrhea. 8. Elevated AST likely secondary to EtOH use. 9. EtOH abuse. 10. Urinary tract infection. 11. Hypotension 12. Ischemic colitis 13. A. fib with RVR Plan Neuro: On fentanyl, Diprivan infusion for sedation. Daily sedation vacation. Monitor neuro status. 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 Neuro is following- Dr. Danielle LP showed clear CSF, 17 WBC, TP:45.2 Pulm: Continue with vent support and maintain sats> 92%. Bronchodilators, ICU vent bundle. SBT as ligia s/p new ETT placement on 08/18 using tube exchanger ( patient bit thru ETT) CV: Hold beta maite and we have hypotension. Levophed for pressor support. Given fluid bolus earlier. We will initiate maintenance IV fluids. Serial lactic acid monitoring Troponin is trending down. Echo showed EF 45-50% Taper steroids- Decrease hydrocortisone 25mg IV Q12 :Monitor renal function, intake and output and avoid nephrotoxins. Off bicarbonate drip. Renal function gradually improving. IV hydration in view of ischemic colitis Renal is following-Dr. Figueroa, US abdomen: No hydronephrosis GI: On Pepcid for GI prophylaxis. Monitor LFT's( trending down) US liver: No abnormalities identified tube feeds- Nepro on hold for colonoscopy today GI is following- colonoscopy done today showed diffuse colitis in the sigmoid colon and descending colon; Necrotic, dusky appearing mucosa. Consistent with severe ischemic. discussed with Dr. Sims, consulted general surgery-plan to treat conservatively unless patient worsens clinically. Starting TPN on 08/19 ID: Abx per ID ( Rocephin,Flagyl) monitor for signs of infection(fever and WBCs) . s/p LP showed clear CSF, 17 WBC, TP:45.2, follow up on cultures, HSV DNA PCR CT abdomen/pelvis: thickening of the descending colonic wall and the possibility of colitis should be entertained. There is also thickening of distal ileal wall which may be inflammatory as well. C-diff PCR is negative, stool studies negative Endo: SSI medium with Accu-Chek for glycemic control. TSH: 1.15. Heme: Monitor CBC. GI prophylaxis with Pepcid and DVT prophylaxis with SCDs, Heparin SQ Lines: Right IJ CVP, Right radial Art line placed 08/15 Discussed with patient's daughter at bedside and updated her on patient;s condition. Condition remains critical CCT 30 mins Mikal Corea MD Aug 19, 2017 15:16
[2017-08-19] MEDS ORDERED: DIGOXIN 0.5 MG/2 ML VIAL IV PUSH ONE (15:30)
[2017-08-19] MEDS: VASOPRESSIN INJ 40 UNITS in DEXTROSE 5% IN WATER 100ML INJ 98 ML IV SCH ×2 (15:30)
[2017-08-19] MEDS: NORMOSOL R INJ 1,000 ML IV SCH (17:40)
--- NOTE | 2017-08-19 18:48 | EKG ---
Date Performed: 08/18/2017 Time Performed: 19:38:00 PTAGE: 82 years EKG: ATRIAL FIBRILLATION WITH RAPID VENTRICULAR RESPONSE LOW QRS VOLTAGE IN PRECORDIAL LEADS MOD ERATE T-WAVE ABNORMALITY, CONSIDER ANTERIOR ISCHEMIA WHEN COMPARED TO PRIOR EKG THE PATIENT IS NOW IN ATRIAL FIBRILLATION WITH RAPID VENTRICULAR RATE.. ABNORMAL ECG PREVIOUS TRACING : 08/15/2017 11.10 DOCTOR: Luisa Corral Interpretating Date/Time 08/19/2017 18:45:13
[2017-08-19] MEDS ORDERED: SODIUM CHLORIDE 23.4% INJ 5.5 MEQ, SODIUM ACETATE INJ 29.5 MEQ, POTASSIUM CHLORIDE INJ ... IV-CENTRAL SCH ×8 (20:00)
[2017-08-19] MEDS: FAT EMULSION 20% INJ 250 ML (Daily over 8 hours) IV-CENTRAL SCH (20:12)
[2017-08-20] VITALS (19 sets, daily range): BP systolic 95–131; BP diastolic 50–58; PULSE 67–135; RESP 16–17; TEMP 97.8–99.1; O2SAT 91–100
[2017-08-20] MEDS: PROPOFOL 1000 MG/100 ML INJ 100 ML IV PRN ×4 (00:09→19:48)
[2017-08-20] MEDS: fentaNYL DRIP 250 ML IV PRN ×3 (00:09→22:17)
[2017-08-20] MEDS: FAMOTIDINE 20 MG/2 ML VIAL IV PUSH SCH ×2 (00:09→12:13)
[2017-08-20] MEDS: PHENYLEPHRINE 40 MG in D5W 500 ML IV PRN (00:09)
[2017-08-20] MEDS: metroNIDAZOLE 500 MG INJ 100 ML IV SCH ×4 (02:00→20:10)
[2017-08-20] MEDS: CHLORHEXIDINE GLUCONATE 2 % 1 PACK (2 CLOTHS)(taper/protocol) TOPICAL SCH (04:00)
[2017-08-20] MEDS: cefTRIAXone INJ 2,000 MG in SODIUM CHLORIDE 0.9% INJ 100 ML IV SCH (04:08)
[2017-08-20] MEDS: INSULIN NovoLIN REGULAR SUPPLEMENTAL SCALE SQ SCH ×6 (04:08→20:10)
[2017-08-20] MEDS: HYDROCORTISONE SOD SUCCINATE 100 MG VIAL IV PUSH SCH ×2 (04:08→17:27)
[2017-08-20 04:40] LABS: AUTOMATED NEUTROPHIL # 7.1 TH/MM3 (1.8-7.7); BASOPHIL % 0.1 % (0.0-2.0); EOSINOPHIL # 0.1 TH/MM3 (0-0.4); EOSINOPHIL % 0.8 % (0.0-4.0); HEMATOCRIT 24.1 % (35.0-46.0); HEMOGLOBIN 8.1 GM/DL (11.6-15.3); LYMPH % 8.3 % (9.0-44.0); LYMPHOCYTE # 0.7 TH/MM3 (1.0-4.8); MEAN CELL VOLUME 95.8 FL (80.0-100.0); MEAN CORPUSCULAR HEMOGLOBIN 32.1 PG (27.0-34.0); MEAN CORPUSCULAR HGB CONC 33.5 % (32.0-36.0); MEAN PLATELET VOLUME 7.9 FL (7.0-11.0); MONO % 11.1 % (0.0-8.0); NEUT % 79.7 % (16.0-70.0); PLATELET COUNT 161 TH/MM3 (150-450); RED BLOOD COUNT 2.52 MIL/MM3 (4.00-5.30); RED CELL DISTRIBUTION WIDTH 14.4 % (11.6-17.2); WHITE BLOOD COUNT 8.9 TH/MM3 (4.0-11.0)
[2017-08-20 05:18] LABS: BICARBONATE 33.7 MEQ/L (21.0-32.0); CALCIUM 6.9 MG/DL (8.5-10.1); CREATININE 0.86 MG/DL (0.50-1.00); MAGNESIUM 1.8 MG/DL (1.5-2.5); PHOSPHORUS 1.2 MG/DL (2.5-4.9)
[2017-08-20 05:43] LABS: CALCIUM-PROTEIN CORRECTED 8.2 MG/DL (8.5-10.1); TOTAL PROTEIN 4.7 GM/DL (6.4-8.2)
[2017-08-20] MEDS ORDERED: POTASSIUM PHOSPHATE INJ 30 MMOL in SODIUM CHLOR 0.9% 250 ML INJ 250 ML IV ONE (07:00)
[2017-08-20 07:22] LABS: BANDS 7 % (0-6); CORRECTED NUCLEATED RBC 1 /100 WBC (0-0); LYMPHOCYTES 3 % (9-44); MONOCYTES 6 % (0-8); MYELOCYTES 2 % (0-0); NUCLEATED RED BLOOD CELL 1 (0-0); POLYS (SEG NEUTROPHILS) 81 % (16-70)
[2017-08-20 07:25] LABS: TOXIC GRANULATION 1+ (NORMAL)
[2017-08-20] MEDS: MULTIVITAMIN TAB PO SCH (08:09)
[2017-08-20] MEDS: ASPIRIN 81 MG CHEW TAB OG-TUBE SCH (08:09)
[2017-08-20] MEDS: FOLIC ACID 1 MG TAB PO SCH (08:09)
[2017-08-20] MEDS: HEPARIN SODIUM - SQ 10,000 UNITS/ML VIAL SQ SCH ×2 (08:10→20:09)
[2017-08-20] MEDS: THIAMINE HCL 100 MG TAB PO SCH (08:10)
[2017-08-20] MEDS: VASOPRESSIN INJ 40 UNITS in DEXTROSE 5% IN WATER 100ML INJ 98 ML IV SCH ×2 (08:10)
[2017-08-20] MEDS: SODIUM CHLORIDE 0.9% FLUSH 10 ML FLUSH IV FLUSH SCH ×2 (08:11→20:10)
--- NOTE | 2017-08-20 11:05 | HHI.CCPN ---
Subjective Remarks/Hospital Course Patient is an 82-year-old female with past medical history of irritable bowel syndrome, hypertension, arthritis, diverticulitis who presented to the [facility] ED after she was found lying on her bed with urine and feces all around her bed. In addition, the patient was altered and obtunded. Most of the history was obtained from reviewing the medical records. Her laboratory data showed acute renal failure with BUN of 52, creatinine 3.39 and lactic acidosis with a lactic acid level of 6.3. In addition, the patient was in rhabdomyolysis with elevated CK at 3855. She was admitted under the hospitalist service; however, a HaliCAT was called due to worsening mental status, hypertension and hypoxemia. She was transferred to [facility] and critical care medicine was consulted for critical care management. When seen, the patient was lethargic, not following any commands, hypotensive. She was subsequently intubated by myself and a right internal jugular central line was placed for hemodynamic monitoring. ABG post intubation showed a pH of 7.31, co2 of 30, pA02 of 117, bicarbonate 15 and saturation of 96% on PRVC rate of 14, tidal volume 350 with IT:1, PEEP 5 and FIO2 of 100%. She was given two liter boluses of normal saline and placed on a bicarbonate drip. Her lactic acid level is trending down and is currently 3.4 from 6.3 on arrival. In addition, her renal function is improving with IV hydration. Her creatinine level is 2.29 from 3.39. Due to hypotension, Levophed was started. A CT scan of the brain in the emergency department was unremarkable. Her initial chest x-ray showed minimal basilar atelectasis, no effusions or pneumothoraces. According to the patient's family, the patient has been intermittently binge drinking. In addition, they report her having diarrhea for a few days. She had a low-grade fever with a temperature of 100.2 last night. 08/16 Patient is sedated with Fentanyl drip intubated and on Levophed 5 mics. On Bicarb drip. MRI brain yesterday showed small lacunar infarcts in left cerebellar hemisphere and right parietal lobe. Lp showed clear CSF, 17 wbc. Afebrile.Renal function worse today with Cr: 2.64 from 2.29 08/17 Patient remains sedated and intubated. On Bicarb drip. Off Levophed renal function slightly worse today with Cr: 2.82 from 2.64 and UOP: 550 ml in 24 hrs 08/18 Patient bit through ETT overnight s/p new ETT placement using tube exchanger. Sedated with Diprivan and Fentanyl. Afebrile. Renal function is improving with Cr: 1.97 from 2.82. On Bicarb drip. Tube feeds held for possible colonoscopy today. 08/19: Remains sedated, orally intubated on mechanical ventilation. Colonoscopy done yesterday revealed ischemic colitis. Has been evaluated by general surgery. Patient went into A. fib with RVR last night and was started on a Cardizem drip. On Levophed for hypotension 08/20: Remains sedated, orally intubated on mechanical ventilation. Started on TPN on 08/19. Cardizem drip turned off this morning. Received 1 dose of digoxin yesterday. Objective Vital Signs Date Time Temp Pulse Resp B/P (MAP) Pulse Ox O2 Delivery O2 Flow Rate FiO2 08/20/17 10:31 96 40 08/20/17 06:21 70 129/58 08/20/17 04:00 99.9 17 Intake and Output 08/20/17 08/20/17 08/21/17 08:00 16:00 00:00 Intake Total 2261 ml Output Total 750 ml Balance 1511 ml Result Diagram: 08/20/17 0400 08/20/17 0400 Imaging Last Impressions Chest X-Ray 08/18/17 0600 Signed Impressions: Service Date/Time: Friday, August 18, 2017 03:13 - CONCLUSION: 1. Interval placement of nasogastric tube. 2. Bibasal opacity left greater than right with small left effusion. Jl Stanley MD Lumbar Puncture Fluoroscopy 08/15/17 0000 Signed Impressions: Service Date/Time: Tuesday, August 15, 2017 15:36 - CONCLUSION: 1. Uncomplicated fluoroscopically guided lumbar puncture. 2. Please note, requested opening pressures were not obtained due to technical difficulties. Shashi Moreno MD Brain MRI 08/15/17 0000 Signed Impressions: Service Date/Time: Tuesday, August 15, 2017 16:57 - CONCLUSION: 1. 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 2. Mild stenosis in the upper cervical spine as above. Esau Martell MD Abdomen/Pelvis CT 08/15/17 0000 Signed Impressions: Service Date/Time: Wednesday, August 16, 2017 00:25 - CONCLUSION: 1. Abnormal thickening of the descending colonic wall and the possibility of colitis should be entertained. There is also thickening of distal ileal wall which may be inflammatory as well. 2. There is mild anasarca with edema or inflammatory changes within the bilateral paracolic gutters extending down into the pelvis. 3. Small bilateral pleural effusions and bibasilar atelectasis and/or infiltrate. 4. Prominent ileocecal valve and possibility of lipoma at this site is not excluded. Josseline Villagomez MD Abdomen Ultrasound 08/15/17 0000 Signed Impressions: Service Date/Time: Tuesday, August 15, 2017 10:40 - CONCLUSION: 1. No abnormality is identified to explain the clinical symptoms. There is no hydronephrosis. 2. The liver is normal in size and echotexture. Adan Machuca MD Head CT [id number]/14/[id number] Signed Impressions: Service Date/Time: July 22:54 - CONCLUSION: Unremarkable study. Josseline Villagomez MD Objective Remarks GENERAL: Patient is 82 yo critically ill intubated and sedated SKIN: Warm and dry. HEAD: Normocephalic. EYES: No scleral icterus. No injection or drainage. NECK: Supple, trachea midline. No JVD or lymphadenopathy. Orally intubated CARDIOVASCULAR: S1-S2 irregularly irregular, no gallop or murmur. RESPIRATORY: Orally intubated on mechanical ventilation, good air entry bilaterally, no wheezing or crackles. GASTROINTESTINAL: Abdomen soft, non-tender, minimally distended. Bowel sounds sluggish MUSCULOSKELETAL: No cyanosis, trace edema. Neuro: sedated, intubated A/P Assessment and Plan 1. VDRF 2. Encephalopathy. 3. Small lacunar infarcts 4. Lactic acidemia. 5. Acute kidney injury. 6. Rhabdomyolysis. 7. Diarrhea. 8. Elevated AST likely secondary to EtOH use. 9. EtOH abuse. 10. Urinary tract infection. 11. Hypotension 12. Ischemic colitis 13. A. fib with RVR Plan Neuro: On fentanyl, Diprivan infusion for sedation. Daily sedation vacation. Monitor neuro status. UDS is negative 2/16: CT brain negative for acute intracranial process MRI brain: Small lacunar infarcts in left cerebellar hemisphere and right parietal lobe EEG: Severe encephalopathy Continue thiamine, multivitamin and folic acid. Neuro is following- Dr. Danielle LP showed clear CSF, 17 WBC, TP:45.2 Pulm: Continue with vent support and maintain sats> 92%. Bronchodilators, ICU vent bundle. SBT as ligia s/p new ETT placement on 08/18 using tube exchanger ( patient bit thru ETT) CV: Hold beta maite and we have hypotension. Levophed for pressor support. Given fluid bolus earlier. We will initiate maintenance IV fluids. Serial lactic acid monitoring Troponin is trending down. Echo showed EF 45-50% Taper steroids- Decrease hydrocortisone 25mg IV Q12 :Monitor renal function, intake and output and avoid nephrotoxins. Off bicarbonate drip. Renal function gradually improving. IV hydration in view of ischemic colitis Renal is following-Dr. Figueroa, US abdomen: No hydronephrosis GI: On Pepcid for GI prophylaxis. Monitor LFT's( trending down) US liver: No abnormalities identified tube feeds- Nepro on hold for colonoscopy today GI is following- colonoscopy done today showed diffuse colitis in the sigmoid colon and descending colon; Necrotic, dusky appearing mucosa. Consistent with severe ischemic. discussed with Dr. Sims, consulted general surgery-plan to treat conservatively unless patient worsens clinically. Starting TPN on 08/19 ID: Abx per ID ( Rocephin,Flagyl) monitor for signs of infection(fever and WBCs) . s/p LP showed clear CSF, 17 WBC, TP:45.2, follow up on cultures, HSV DNA PCR CT abdomen/pelvis: thickening of the descending colonic wall and the possibility of colitis should be entertained. There is also thickening of distal ileal wall which may be inflammatory as well. C-diff PCR is negative, stool studies negative Endo: SSI medium with Accu-Chek for glycemic control. TSH: 1.15. Add regular insulin 20 units to TPN for better glycemic control Heme: Monitor CBC. GI prophylaxis with Pepcid and DVT prophylaxis with SCDs, Heparin SQ Lines: Right IJ Central line, Right radial Art line placed 08/15 Discussed with patient's daughter at bedside and updated her on patient;s condition on 08/19. Condition remains critical CCT 30 mins excluding procedures Mikal Corea MD Aug 20, 2017 11:05
[2017-08-20] MEDS ORDERED: METOPROLOL TARTRATE 5 MG/5 ML VIAL ONE (12:40)
[2017-08-20] MEDS ORDERED: DIGOXIN 0.5 MG/2 ML VIAL ONE (12:40)
[2017-08-20] MEDS ORDERED: METOPROLOL TARTRATE 5 MG/5 ML VIAL IV ONE (12:45)
[2017-08-20] MEDS ORDERED: DIGOXIN 0.5 MG/2 ML VIAL IV ONE (12:45)
--- NOTE | 2017-08-20 13:13 | HHI.HCPN ---
Palliative care continues to follow Ms. Olson for ongoing communication and assistance with determining goals of care. Spoke with son, Jl and daughter , Vashti. They both wish to participate in medical proxy decision making. Jl and Chelsea agree to family meeting tomorrow, 08/22 at 1pm. Jl will be available by phone. Chelsea will either come to the hospital or be available by phone. Left message with Nicole and Jessica to inform them of meeting. Palliative care will continue to follow throughout hospitalization. Brianne Mckeon [employer], [employer]GER Aug 20, 2017 13:12
--- NOTE | 2017-08-20 14:05 | HHI.HCPN ---
Reason for visit a. To assist with evaluation and management of symptoms including: altered mental status, dyspnea, anxiety. b. To assist medical decision maker(s) with: better understanding of current medical conditions; weighing benefits/burdens of medical treatment options; making medical treatment decisions. . (Vashti Riley) Subjective/Interval History Patient seen and examined in ICU. Daughter, Nicole and family friend at bedside. Patient remains on mechanical ventilation, FiO2 40%. T-max 99.1. Tachycardic, rate 135, A. Fib on monitor nurse restarted Cardizem drip during my visit. BP 95 /50 on Phenylephrine. On TPN. WBC 8.9, hemoglobin 8.1, platelet 161. Creatinine has normalized. Total protein 4.7. Cultures negative to date. No new imaging. Patient unable to communicate. Eyes open, not tracking. Slight withdraw to pain bilateral LE. Remains on fentanyl and propofol drips. Discussed with Dr. Guadalupe, Dr. Essie Corea and Dr. Dilip Corea. . Family/friend interactions Nicole at bedside, medical update provided. She verbalizes possible upcoming decisions for tracheostomy/PEG tube based on her conversation with Dr. Corea on 08/19/17. Offered palliative care family meeting. Again reviewed the statutes regarding healthcare proxy decision making (falls to majority of adult children), she asked that I would contact her siblings to invite them to a family meeting on 08/21/17. Brianne Mckeon LCSW arranged family meeting 08/21/17 at 1 PM to provide medical update, further clarification of treatment goals and to review possible upcoming medical decisions regarding tracheostomy/PEG tube. . . (Vashti Riley) Advance Directives Living Will: Never completed Health Care Surrogate: Never completed Durable Power of Nitrogen Operator: Never completed (Vashti Riley) Advance Directive Specifics Health Care Surrogate(s): Patient is not currently capacitated to make her own healthcare decisions, uncertain if she will regain capacity. No written advanced directives. According to [place] statute healthcare proxy decision making falls to the majority of adult children, patient has 3 daughters and 1 son. Children are in agreement that Silvia Luis will serve as the family spokesperson /first contact. . Documented care wishes: No written advanced directives. . Significant change in goals: FULL CODE. Goals remain aggressive at this time. Family meeting arranged at 1 PM to provide medical update and further clarify treatment goals. . (Vashti Riley) Objective Vital Signs Date Time Temp Pulse Resp B/P (MAP) Pulse Ox O2 Delivery O2 Flow Rate FiO2 08/20/17 12:00 98.4 135 17 95/50 (65) 92 08/20/17 12:00 135 08/20/17 12:00 40 08/20/17 10:31 96 40 08/20/17 10:00 86 08/20/17 08:47 100 40 08/20/17 08:00 99.1 67 16 95/50 (65) 96 08/20/17 08:00 67 08/20/17 08:00 40 08/20/17 06:21 70 129/58 08/20/17 06:00 73 08/20/17 04:00 40 08/20/17 04:00 71 08/20/17 04:00 99.9 71 17 118/56 (76) 95 08/20/17 03:37 71 120/58 08/20/17 03:37 71 08/20/17 03:28 94 40 08/20/17 02:00 72 08/20/17 00:09 116/56 08/20/17 00:05 97 40 08/20/17 00:00 99.1 72 16 116/56 (76) 97 08/20/17 00:00 72 08/20/17 00:00 40 08/19/17 22:00 76 08/19/17 20:33 100 40 08/19/17 20:00 98.4 72 16 110/55 (73) 99 08/19/17 20:00 40 08/19/17 20:00 72 08/19/17 19:30 76 08/19/17 18:00 71 08/19/17 16:40 100 40 08/19/17 16:00 99.6 74 16 96/53 (67) 97 08/19/17 16:00 74 08/19/17 16:00 40 08/19/17 15:30 70 103/57 08/19/17 14:00 74 08/19/17 13:58 100 40 Intake & Output 08/20/17 08/20/17 06:59 18:59 Intake Total 2461 ml 200 ml Output Total 750 ml Balance 1711 ml 200 ml Intake IV Total 2461 ml 200 ml Output Urine Total 750 ml Physical Exam CONSTITUTIONAL/GENERAL: This is a critically ill patient, in no apparent distress. TUBES/LINES/DRAINS: ETT, OG, Central line, PIV, wrist restraints, Doe, SCDs. SKIN: No jaundice, rashes, or lesions. Ecchymoses on upper extremities. No wounds seen anteriorly. Skin temperature appropriate. Not diaphoretic. CARDIOVASCULAR: tachycardic, S1, S2. Atrial fibrillation on monitor. RESPIRATORY/CHEST: Symmetric, unlabored respirations on vent. Clear to auscultation. GASTROINTESTINAL: Abdomen soft, distended. Hypoactive bowel sounds. GENITOURINARY: Without palpable bladder distension. Doe catheter in place. MUSCULOSKELETAL: Extremities with edema. No mottling or clubbing. NEUROLOGICAL: Eyes open. Does not appear to track. Not following commands. Slight withdrawal bilateral lower extremities to noxious stimuli. PSYCHIATRIC: No obvious anxiety noted. . (Vashti Riley) Diagnostic Tests Laboratory Laboratory Tests Test 08/17/17 18:44 08/18/17 05:40 08/18/17 08:40 08/18/17 20:55 Potassium Level 2.7 MEQ/L (3.5-5.1) 3.0 MEQ/L (3.5-5.1) 3.0 MEQ/L (3.5-5.1) White Blood Count 5.9 TH/MM3 (4.0-11.0) Red Blood Count 3.13 MIL/MM3 (4.00-5.30) Hemoglobin 10.0 GM/DL (11.6-15.3) Hematocrit 29.8 % (35.0-46.0) Mean Corpuscular Volume 95.2 FL (80.0-100.0) Mean Corpuscular Hemoglobin 32.1 PG (27.0-34.0) Mean Corpuscular Hemoglobin Concent 33.7 % (32.0-36.0) Red Cell Distribution Width 14.4 % (11.6-17.2) Platelet Count 97 TH/MM3 (150-450) Mean Platelet Volume 7.8 FL (7.0-11.0) Blood Urea Nitrogen 42 MG/DL (7-18) Creatinine 1.97 MG/DL (0.50-1.00) Random Glucose 122 MG/DL (74-106) Total Protein 4.8 GM/DL (6.4-8.2) Albumin 1.5 GM/DL (3.4-5.0) Calcium Level 6.8 MG/DL (8.5-10.1) Alkaline Phosphatase 63 U/L (45-117) Aspartate Amino Transf (AST/SGOT) 42 U/L (15-37) Alanine Aminotransferase (ALT/SGPT) 35 U/L (10-53) Total Bilirubin 0.1 MG/DL (0.2-1.0) Sodium Level 143 MEQ/L (136-145) Chloride Level 104 MEQ/L (98-107) Carbon Dioxide Level 33.1 MEQ/L (21.0-32.0) Anion Gap 6 MEQ/L (5-15) Estimat Glomerular Filtration Rate 24 ML/MIN (>89) Protein Corrected Calcium 8.0 MG/DL (8.5-10.1) Total Creatine Kinase 804 U/L (26-192) Creatine Kinase MB 4.6 NG/ML (0.5-3.6) Creatine Kinase MB % 0.6 % (0.0-4.0) Random Vancomycin Level 17.5 COMMENT Blood Gas Puncture Site ART LINE Blood Gas Patient Temperature 98.6 Blood Gas HCO3 32 mmol/L (22-26) Blood Gas Base Excess 5.7 mmol/L (-2-2) Blood Gas Oxygen Saturation 93 % (90-100) Arterial Blood pH 7.31 (7.380-7.420) Arterial Blood Partial Pressure CO2 65 mmHg (38-42) Arterial Blood Partial Pressure O2 79 mmHg (61-120) Arterial Blood Oxygen Content 15.0 Vol % (12.0-20.0) Arterial Blood Carboxyhemoglobin 0.6 % (0-4) Arterial Blood Methemoglobin 1.3 % (0-2) Blood Gas Hemoglobin 11.4 G/DL (12.0-16.0) Oxygen Delivery Device VENTILATOR Blood Gas Ventilator Setting PRVCAC/VT 350/R14/P5 Blood Gas Inspired Oxygen 70 % Test 08/19/17 04:15 08/20/17 04:00 White Blood Count 6.0 TH/MM3 (4.0-11.0) 8.9 TH/MM3 (4.0-11.0) Red Blood Count 2.91 MIL/MM3 (4.00-5.30) 2.52 MIL/MM3 (4.00-5.30) Hemoglobin 9.3 GM/DL (11.6-15.3) 8.1 GM/DL (11.6-15.3) Hematocrit 27.6 % (35.0-46.0) 24.1 % (35.0-46.0) Mean Corpuscular Volume 94.8 FL (80.0-100.0) 95.8 FL (80.0-100.0) Mean Corpuscular Hemoglobin 32.1 PG (27.0-34.0) 32.1 PG (27.0-34.0) Mean Corpuscular Hemoglobin Concent 33.8 % (32.0-36.0) 33.5 % (32.0-36.0) Red Cell Distribution Width 14.2 % (11.6-17.2) 14.4 % (11.6-17.2) Platelet Count 102 TH/MM3 (150-450) 161 TH/MM3 (150-450) Mean Platelet Volume 7.9 FL (7.0-11.0) 7.9 FL (7.0-11.0) Neutrophils (%) (Auto) 81.4 % (16.0-70.0) 79.7 % (16.0-70.0) Lymphocytes (%) (Auto) 6.3 % (9.0-44.0) 8.3 % (9.0-44.0) Monocytes (%) (Auto) 11.9 % (0.0-8.0) 11.1 % (0.0-8.0) Eosinophils (%) (Auto) 0.4 % (0.0-4.0) 0.8 % (0.0-4.0) Basophils (%) (Auto) 0.0 % (0.0-2.0) 0.1 % (0.0-2.0) Neutrophils # (Auto) 4.9 TH/MM3 (1.8-7.7) 7.1 TH/MM3 (1.8-7.7) Lymphocytes # (Auto) 0.4 TH/MM3 (1.0-4.8) 0.7 TH/MM3 (1.0-4.8) Monocytes # (Auto) 0.7 TH/MM3 (0-0.9) 1.0 TH/MM3 (0-0.9) Eosinophils # (Auto) 0.0 TH/MM3 (0-0.4) 0.1 TH/MM3 (0-0.4) Basophils # (Auto) 0.0 TH/MM3 (0-0.2) 0.0 TH/MM3 (0-0.2) CBC Comment DIFF FINAL AUTO DIFF Differential Comment FINAL DIFF MANUAL Blood Urea Nitrogen 31 MG/DL (7-18) 25 MG/DL (7-18) Creatinine 1.08 MG/DL (0.50-1.00) 0.86 MG/DL (0.50-1.00) Random Glucose 116 MG/DL (74-106) 210 MG/DL (74-106) Total Protein 4.8 GM/DL (6.4-8.2) 4.7 GM/DL (6.4-8.2) Albumin 1.5 GM/DL (3.4-5.0) Calcium Level 7.0 MG/DL (8.5-10.1) 6.9 MG/DL (8.5-10.1) Phosphorus Level 2.5 MG/DL (2.5-4.9) 1.2 MG/DL (2.5-4.9) Magnesium Level 1.7 MG/DL (1.5-2.5) 1.8 MG/DL (1.5-2.5) Alkaline Phosphatase 58 U/L (45-117) Aspartate Amino Transf (AST/SGOT) 34 U/L (15-37) Alanine Aminotransferase (ALT/SGPT) 29 U/L (10-53) Total Bilirubin 0.2 MG/DL (0.2-1.0) Sodium Level 148 MEQ/L (136-145) 149 MEQ/L (136-145) Potassium Level 3.0 MEQ/L (3.5-5.1) 3.0 MEQ/L (3.5-5.1) Chloride Level 106 MEQ/L (98-107) 110 MEQ/L (98-107) Carbon Dioxide Level 34.5 MEQ/L (21.0-32.0) 33.7 MEQ/L (21.0-32.0) Anion Gap 8 MEQ/L (5-15) 5 MEQ/L (5-15) Estimat Glomerular Filtration Rate 49 ML/MIN (>89) 63 ML/MIN (>89) Protein Corrected Calcium 8.2 MG/DL (8.5-10.1) 8.2 MG/DL (8.5-10.1) Differential Total Cells Counted 100 Neutrophils % (Manual) 81 % (16-70) Band Neutrophils % 7 % (0-6) Lymphocytes % 3 % (9-44) Monocytes % 6 % (0-8) Eosinophils % 1 % (0-4) Neutrophils # (Manual) 8.0 TH/MM3 (1.8-7.7) Myelocytes 2 % (0-0) Nucleated Red Blood Cells 1 /100 WBC (0-0) Toxic Granulation 1+ (NORMAL) Platelet Estimate NORMAL (NORMAL) Platelet Morphology Comment NORMAL (NORMAL) (Vashti Riley) Result Diagram: 08/20/17 0400 08/20/17 0400 Microbiology Microbiology Date/Time Source Procedure Growth Status 08/14/17 22:45 Blood Peripheral Aerobic Blood Culture - Final NO GROWTH IN 5 DAYS Complete 08/14/17 22:45 Blood Peripheral Anaerobic Blood Culture - Final NO GROWTH IN 5 DAYS Complete 08/15/17 15:56 Cerebral Spinal Fluid Lumbar Puncture Gram Stain - Final Complete 08/15/17 15:56 Cerebral Spinal Fluid Lumbar Puncture CSF Culture - Final NO GROWTH IN 72 HOURS Complete 08/15/17 02:28 Stool Stool Cryptosporidium Exam Pending Ordered 08/15/17 02:28 Stool Stool Giardia Antigen (MARCIA) Pending Ordered 08/15/17 12:08 Sputum Endotracheal Gram Stain - Final Complete 08/15/17 12:08 Sputum Endotracheal Sputum Culture - Final HEAVY GROWTH NORMAL RESPIRATORY JARED Complete 08/14/17 22:45 Urine Catheterized Urine Urine Culture - Final NO GROWTH IN 48 HOURS. Complete Imaging Last Impressions Abdomen X-Ray 08/19/17 0000 Signed Impressions: Service Date/Time: Saturday, August 19, 2017 10:58 - CONCLUSION: 1. No evidence of obstruction. Mario Rosales MD Chest X-Ray 08/18/17 0600 Signed Impressions: Service Date/Time: Friday, August 18, 2017 03:13 - CONCLUSION: 1. Interval placement of nasogastric tube. 2. Bibasal opacity left greater than right with small left effusion. Jl Stanley MD Lumbar Puncture Fluoroscopy 08/15/17 0000 Signed Impressions: Service Date/Time: Tuesday, August 15, 2017 15:36 - CONCLUSION: 1. Uncomplicated fluoroscopically guided lumbar puncture. 2. Please note, requested opening pressures were not obtained due to technical difficulties. Shashi Moreno MD Brain MRI 08/15/17 0000 Signed Impressions: Service Date/Time: Tuesday, August 15, 2017 16:57 - CONCLUSION: 1. 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 2. Mild stenosis in the upper cervical spine as above. Esau Martell MD Abdomen/Pelvis CT 08/15/17 0000 Signed Impressions: Service Date/Time: Wednesday, August 16, 2017 00:25 - CONCLUSION: 1. Abnormal thickening of the descending colonic wall and the possibility of colitis should be entertained. There is also thickening of distal ileal wall which may be inflammatory as well. 2. There is mild anasarca with edema or inflammatory changes within the bilateral paracolic gutters extending down into the pelvis. 3. Small bilateral pleural effusions and bibasilar atelectasis and/or infiltrate. 4. Prominent ileocecal valve and possibility of lipoma at this site is not excluded. Josseline Villagomez MD Abdomen Ultrasound 08/15/17 0000 Signed Impressions: Service Date/Time: Tuesday, August 15, 2017 10:40 - CONCLUSION: 1. No abnormality is identified to explain the clinical symptoms. There is no hydronephrosis. 2. The liver is normal in size and echotexture. Adan Machuca MD Head CT 08/14/172231 Signed Impressions: Service Date/Time: July 22:54 - CONCLUSION: Unremarkable study. Josseline Villagomez MD Procedures * 08/15/17-lumbar puncture by IR * 08/15/17 - right IJ central line, intubated. (Vashti Riley) Assessment and Plan Disease Oriented Problem List: (1) Acute respiratory failure (2) Acute renal failure (3) Rhabdomyolysis (4) Septic shock (5) Tachycardia (6) Hypotension (7) UTI (urinary tract infection) (8) Alcohol abuse Symptom Scale: (1) Pain 0-10 Scale: Unable to quantify (2) Dyspnea 0-10 Scale: Unable to quantify (3) Altered mental status 0-10 Scale: Unable to quantify (4) Anxiety 0-10 Scale: Unable to quantify Pertinent Non-Medical Issues Psychosocial: . Lives with Nicole flores. Has 3 daughters and 1 son. Spiritual: Nondenominational david. Legal: Patient is not currently capacitated to make her own healthcare decisions , uncertain if she will regain capacity. No written advanced directives. According to [place] statmize healthcare proxy decision making falls to the majority of adult children, patient has 3 daughters and 1 son. Children are in agreement that Silvia Luis will serve as the family spokesperson /first contact. Ethical issues impacting care: No known concerns at this time. . Important Contacts * Silvia Andersen" Toby, daughter/ 1st contact: [phone] * Jl Olson, son: or [phone] * Jessica, daughter: [phone] * Chelsea, daughter: [phone] . Prognosis Ms. Olson is an 82 year old admitted with rhabdomyolysis, septic shock uncertain etiology, dehydration, renal failure. At this point we will need additional information to determine overall prognosis. Given her advanced age, she remain high risk for further setbacks or decline. . Code Status: Full Code Plan * Patient is not currently capacitated to make her own healthcare decisions, uncertain if she will regain capacity. No written advanced directives. According to [facility] healthcare proxy decision making falls to the majority of adult children, patient has 3 daughters and 1 son. Children are in agreement that Silvia Luis will serve as the family spokesperson /first contact ([phone]) * FULL CODE. * Goals remain aggressive at this time. Family meeting arranged 08/21/17 at 1 PM to provide medical update and further clarify treatment goals. * SYMPTOMS: Altered mental status: seems to be improving. Dyspnea: on mech vent. Pain: potential sources include intubation, chronic neck pain, infection , etc. Currently on Fentanyl drip 100 mcg. Anxiety: On propofol 20 mcg. No new medication recommendations at this time. * Palliative care will continue to throughout hospital course to assist with clarification of goals. . (Vashti Riley) Attestation To help prompt me to consider important information that might be impacting today's encounter and assessment, information from prior notes written by myself or my colleagues may have been "brought forward" into today's note. My signature on this note, however, is an attestation that I personally performed the exam, history, and/or decision-making noted today, and, unless otherwise indicated, the interactions with patient, family, and staff as well as the review of records all occurred today. I also attest that the listed assessment and stated plan reflect my best clinical judgment today based on the combination of historical information, prior notes, and today's exam/ interactions. When time spent is documented, it refers only to time spent today by the signer, or if indicated, combined time spent today by collaborating physician/nurse practitioner. (Vashti Riley) Collaborating MD Comments Chart reviewed. Case discussed with palliative care PROMOTIONAL ADVERTISING ASSISTANT. Above PROMOTIONAL ADVERTISING ASSISTANT note reviewed and I concur. . (hCacorta Potter MD) Vashti Riley Aug 20, 2017 14:05 Chacorta Potter MD Aug 27, 2017 17:09
[2017-08-20] MEDS: NORMOSOL R INJ 1,000 ML IV SCH (14:07)
[2017-08-20] MEDS: DILTIAZEM INJ 125 MG in SODIUM CHLORIDE 0.9% INJ 100 ML IV PRN (14:08)
--- NOTE | 2017-08-20 18:48 | HHI.PR ---
Subjective Subjective Notes AVTAR intubated Objective Vitals/I&O Vital Signs Date Time Temp Pulse Resp B/P (MAP) Pulse Ox O2 Delivery O2 Flow Rate FiO2 08/20/17 16:00 97.8 79 16 106/56 (73) 91 08/20/17 16:00 40 Labs Laboratory Tests Test 08/20/17 04:00 White Blood Count 8.9 Red Blood Count 2.52 Hemoglobin 8.1 Hematocrit 24.1 Mean Corpuscular Volume 95.8 Mean Corpuscular Hemoglobin 32.1 Mean Corpuscular Hemoglobin Concent 33.5 Red Cell Distribution Width 14.4 Platelet Count 161 Mean Platelet Volume 7.9 Neutrophils (%) (Auto) 79.7 Lymphocytes (%) (Auto) 8.3 Monocytes (%) (Auto) 11.1 Eosinophils (%) (Auto) 0.8 Basophils (%) (Auto) 0.1 Neutrophils # (Auto) 7.1 Lymphocytes # (Auto) 0.7 Monocytes # (Auto) 1.0 Eosinophils # (Auto) 0.1 Basophils # (Auto) 0.0 CBC Comment AUTO DIFF Differential Total Cells Counted 100 Neutrophils % (Manual) 81 Band Neutrophils % 7 Lymphocytes % 3 Monocytes % 6 Eosinophils % 1 Neutrophils # (Manual) 8.0 Myelocytes 2 Nucleated Red Blood Cells 1 Differential Comment FINAL DIFF MANUAL Toxic Granulation 1+ Platelet Estimate NORMAL Platelet Morphology Comment NORMAL Blood Urea Nitrogen 25 Creatinine 0.86 Random Glucose 210 Total Protein 4.7 Calcium Level 6.9 Phosphorus Level 1.2 Magnesium Level 1.8 Sodium Level 149 Potassium Level 3.0 Chloride Level 110 Carbon Dioxide Level 33.7 Anion Gap 5 Estimat Glomerular Filtration Rate 63 Protein Corrected Calcium 8.2 Date/Time Source Procedure Growth Status 08/14/17 22:45 Blood Peripheral Aerobic Blood Culture - Final NO GROWTH IN 5 DAYS Complete 08/14/17 22:45 Blood Peripheral Anaerobic Blood Culture - Final NO GROWTH IN 5 DAYS Complete 08/15/17 15:56 Cerebral Spinal Fluid Lumbar Puncture Gram Stain - Final Complete 08/15/17 15:56 Cerebral Spinal Fluid Lumbar Puncture CSF Culture - Final NO GROWTH IN 72 HOURS Complete 08/15/17 02:28 Stool Stool Cryptosporidium Exam Pending Ordered 08/15/17 02:28 Stool Stool Giardia Antigen (MARCIA) Pending Ordered 08/15/17 12:08 Sputum Endotracheal Gram Stain - Final Complete 08/15/17 12:08 Sputum Endotracheal Sputum Culture - Final HEAVY GROWTH NORMAL RESPIRATORY JARED Complete 08/14/17 22:45 Urine Catheterized Urine Urine Culture - Final NO GROWTH IN 48 HOURS. Complete Abdomen: Non-tender Narrative Exam abdominal exam mild distension, tympanic, no rebound or peritonitis A/P Assessment and Plan 82yo female respiratory failure, ischemic colitis 2/2 hypotension/shock related to EtOH. clinically no evidence of worsening ischemic colitis consider rectal tube for decompression continue to follow Rolo Guadalupe MD Aug 20, 2017 18:48
--- NOTE | 2017-08-20 19:09 | HHI.PR ---
Review/Management Diagnosis several small strokes on MRI--probably embolic metabolic encephalopathy CSF cultures negative CSF HSV pcr negative Plan EEG tomorrow for prognosis Diagnosis/Plan: Subjective Subjective Comments No acute events reported Active Medications Current Medications Medications (Trade) Dose Ordered Sig/Al Route Start Time Stop Time Status Last Admin (NS Flush) 2 ml UNSCH PRN IV FLUSH 08/15/17 02:00 (NS Flush) 2 ml BID IV FLUSH 08/15/17 09:00 08/20/17 08:11 (Narcan Inj) 0.4 mg UNSCH PRN IV PUSH 08/15/17 02:00 Metronidazole 100 ml @ 100 mls/hr Q6H IV 08/15/17 08:00 08/20/17 13:35 Miscellaneous Information Patient in critical care unit? Ass... [id number] .XX 08/15/17 06:15 08/15/17 06:15 (Romazicon Inj) 0.2 mg Q1M PRN IV PUSH 08/15/17 06:30 (Atrovent Neb) 0.5 mg Q2HR NEB PRN NEB 08/15/17 06:30 08/18/17 08:25 Fentanyl Citrate 250 ml @ 5 mls/hr TITRATE PRN IV 08/15/17 07:30 08/20/17 13:35 (Brethine Inj) 1 mg UNSCH PRN SQ 08/15/17 09:00 (Vitamin B1) 100 mg DAILY PO 08/15/17 12:00 08/20/17 08:10 (Theragran) 1 tab DAILY PO 08/15/17 12:00 08/20/17 08:09 (Folate) 1 mg DAILY PO 08/15/17 12:00 08/20/17 08:09 (Pepcid Inj) 10 mg Q12H IV PUSH 08/15/17 12:00 08/20/17 12:13 (Aspirin Chew) 81 mg DAILY OG-TUBE 08/15/17 19:00 08/20/17 08:09 (D50w (Vial) Inj) 50 ml UNSCH PRN IV PUSH 08/16/17 08:00 (Glucagon Inj) 1 mg UNSCH PRN OTHER 08/16/17 08:00 (NovoLIN R SUPPLEMENTAL SCALE) 1 Q4HR SQ 08/16/17 08:00 08/20/17 16:05 (SoluCORTEF INJ) 25 mg Q12H IV PUSH 08/17/17 18:00 08/20/17 17:27 (Lopressor) 25 mg Q12HR PO 08/17/17 09:00 Future Hold 08/19/17 08:46 (Heparin Inj) 5,000 units Q12HR SQ 08/17/17 09:00 08/20/17 08:10 Propofol 100 ml @ 2.19 mls/hr TITRATE PRN IV 08/17/17 18:30 08/20/17 13:10 Ceftriaxone Sodium 2000 mg/ Sodium Chloride 100 ml @ 200 mls/hr Q24H IV 08/19/17 04:00 08/20/17 04:08 Diltiazem HCl 125 mg/Sodium Chloride 125 ml @ 5 mls/hr TITRATE PRN IV 08/18/17 20:15 08/20/17 14:08 Phenylephrine HCl 40 mg/Dextrose 500 ml @ 30 mls/hr TITRATE PRN IV 08/19/17 10:30 08/20/17 00:09 (Brethine Inj) 1 mg UNSCH PRN SQ 08/19/17 10:30 Sodium Chloride 5.5 meq/Sodium Acetate 29.5 meq/ Potassium Chloride 20 meq/ Magnesium Chloride 5 meq/ Calcium Chloride 4.5 meq/ Multivitamins 10 ml/Folic Acid 1 mg/Amino Acids/ Dextrose 1,042.1719 ml @ 42 mls/hr Q24H IV-CENTRAL 08/19/17 20:00 08/20/17 19:59 08/19/17 20:12 Fat Emulsion Intravenous 250 ml @ 31.25 mls/ hr Q24H IV-CENTRAL 08/19/17 20:00 08/19/17 20:12 Vasopressin 40 units/Dextrose 100 ml @ 6 mls/hr [id number] IV 08/19/17 15:30 Parenteral Electrolytes 1,000 ml @ 42 mls/hr [id number] IV 08/19/17 16:00 08/20/17 14:07 Sodium Chloride 5.5 meq/Sodium Acetate 29.5 meq/ Potassium Chloride 20 meq/ Magnesium Chloride 5 meq/ Calcium Chloride 4.5 meq/ Multivitamins 10 ml/Folic Acid 1 mg/Insulin Human Regular 20 units/ Amino Acids/ Dextrose 1,042.3719 ml @ 42 mls/hr Q24H IV-CENTRAL 08/20/17 20:00 Allergies Allergies Coded Allergies No Known Allergies (Verified Allergy, Unknown, 08/15/17) Exam I&O / VS 08/20/17 08/20/17 08/21/17 15:00 23:00 07:00 Intake Total 200 ml 584 ml Output Total 350 ml Balance 200 ml 234 ml Intake IV Total 200 ml TPN/PPN 464 ml Other 120 ml Output Urine Total 350 ml Vital Signs Date Time Temp Pulse Resp B/P (MAP) Pulse Ox O2 Delivery O2 Flow Rate FiO2 08/20/17 16:00 97.8 79 16 106/56 (73) 91 08/20/17 16:00 40 08/20/17 16:00 79 08/20/17 14:21 94 40 08/20/17 14:08 79 115/54 08/20/17 14:00 119 08/20/17 12:00 98.4 135 17 95/50 (65) 92 08/20/17 12:00 135 08/20/17 12:00 40 08/20/17 10:31 96 40 08/20/17 10:00 86 08/20/17 08:47 100 40 08/20/17 08:00 99.1 67 16 95/50 (65) 96 08/20/17 08:00 67 08/20/17 08:00 40 08/20/17 06:21 70 129/58 08/20/17 06:00 73 08/20/17 04:00 40 08/20/17 04:00 71 08/20/17 04:00 99.9 71 17 118/56 (76) 95 08/20/17 03:37 71 120/58 08/20/17 03:37 71 08/20/17 03:28 94 40 08/20/17 02:00 72 08/20/17 00:09 116/56 08/20/17 00:05 97 40 08/20/17 00:00 99.1 72 16 116/56 (76) 97 08/20/17 00:00 72 08/20/17 00:00 40 08/19/17 22:00 76 08/19/17 20:33 100 40 08/19/17 20:00 98.4 72 16 110/55 (73) 99 08/19/17 20:00 40 08/19/17 20:00 72 08/19/17 19:30 76 Exam Comments sedated pupils 2 mm eomI MOTOR--no spontaneous movement Objective Micro and Labs Laboratory Tests Test 08/20/17 04:00 White Blood Count 8.9 Red Blood Count 2.52 Hemoglobin 8.1 Hematocrit 24.1 Mean Corpuscular Volume 95.8 Mean Corpuscular Hemoglobin 32.1 Mean Corpuscular Hemoglobin Concent 33.5 Red Cell Distribution Width 14.4 Platelet Count 161 Mean Platelet Volume 7.9 Neutrophils (%) (Auto) 79.7 Lymphocytes (%) (Auto) 8.3 Monocytes (%) (Auto) 11.1 Eosinophils (%) (Auto) 0.8 Basophils (%) (Auto) 0.1 Neutrophils # (Auto) 7.1 Lymphocytes # (Auto) 0.7 Monocytes # (Auto) 1.0 Eosinophils # (Auto) 0.1 Basophils # (Auto) 0.0 CBC Comment AUTO DIFF Differential Total Cells Counted 100 Neutrophils % (Manual) 81 Band Neutrophils % 7 Lymphocytes % 3 Monocytes % 6 Eosinophils % 1 Neutrophils # (Manual) 8.0 Myelocytes 2 Nucleated Red Blood Cells 1 Differential Comment FINAL DIFF MANUAL Toxic Granulation 1+ Platelet Estimate NORMAL Platelet Morphology Comment NORMAL Blood Urea Nitrogen 25 Creatinine 0.86 Random Glucose 210 Total Protein 4.7 Calcium Level 6.9 Phosphorus Level 1.2 Magnesium Level 1.8 Sodium Level 149 Potassium Level 3.0 Chloride Level 110 Carbon Dioxide Level 33.7 Anion Gap 5 Estimat Glomerular Filtration Rate 63 Protein Corrected Calcium 8.2 Date/Time Source Procedure Growth Status 08/14/17 22:45 Blood Peripheral Aerobic Blood Culture - Final NO GROWTH IN 5 DAYS Complete 08/14/17 22:45 Blood Peripheral Anaerobic Blood Culture - Final NO GROWTH IN 5 DAYS Complete 08/15/17 15:56 Cerebral Spinal Fluid Lumbar Puncture Gram Stain - Final Complete 08/15/17 15:56 Cerebral Spinal Fluid Lumbar Puncture CSF Culture - Final NO GROWTH IN 72 HOURS Complete 08/15/17 02:28 Stool Stool Cryptosporidium Exam Pending Ordered 08/15/17 02:28 Stool Stool Giardia Antigen (MARCIA) Pending Ordered 08/15/17 12:08 Sputum Endotracheal Gram Stain - Final Complete 08/15/17 12:08 Sputum Endotracheal Sputum Culture - Final HEAVY GROWTH NORMAL RESPIRATORY JARED Complete 08/14/17 22:45 Urine Catheterized Urine Urine Culture - Final NO GROWTH IN 48 HOURS. Complete Kang Danielle MD PhD Aug 20, 2017 19:09
[2017-08-20] MEDS: FAT EMULSION 20% INJ 250 ML (Daily over 8 hours) IV-CENTRAL SCH (20:10)
[2017-08-20] MEDS: SODIUM CHLORIDE 23.4% INJ 5.5 MEQ, SODIUM ACETATE INJ 29.5 MEQ, POTASSIUM CHLORIDE INJ ... IV-CENTRAL SCH ×9 (20:10)
[2017-08-21] VITALS (25 sets, daily range): BP systolic 94–205; BP diastolic 50–110; PULSE 87–121; RESP 16–18; TEMP 100–101.1; O2SAT 93–99
[2017-08-21] MEDS: INSULIN NovoLIN REGULAR SUPPLEMENTAL SCALE SQ SCH ×7 (00:09→23:28)
[2017-08-21] MEDS: FAMOTIDINE 20 MG/2 ML VIAL IV PUSH SCH ×3 (00:09→23:29)
[2017-08-21] MEDS: VASOPRESSIN INJ 40 UNITS in DEXTROSE 5% IN WATER 100ML INJ 98 ML IV SCH ×4 (00:09→15:26)
[2017-08-21] MEDS: PROPOFOL 1000 MG/100 ML INJ 100 ML IV PRN ×2 (01:36→10:24)
[2017-08-21] MEDS: metroNIDAZOLE 500 MG INJ 100 ML IV SCH ×4 (01:36→20:03)
[2017-08-21] MEDS: cefTRIAXone INJ 2,000 MG in SODIUM CHLORIDE 0.9% INJ 100 ML IV SCH (04:20)
[2017-08-21 04:49] LABS: AUTOMATED NEUTROPHIL # 8.5 TH/MM3 (1.8-7.7); BASOPHIL % 0.2 % (0.0-2.0); EOSINOPHIL % 0.3 % (0.0-4.0); HEMATOCRIT 25.2 % (35.0-46.0); HEMOGLOBIN 8.4 GM/DL (11.6-15.3); LYMPH % 7.9 % (9.0-44.0); LYMPHOCYTE # 0.8 TH/MM3 (1.0-4.8); MEAN CELL VOLUME 95.9 FL (80.0-100.0); MEAN CORPUSCULAR HGB CONC 33.4 % (32.0-36.0); MEAN PLATELET VOLUME 7.7 FL (7.0-11.0); MONO % 12.5 % (0.0-8.0); MONOCYTE # 1.3 TH/MM3 (0-0.9); NEUT % 79.1 % (16.0-70.0); PLATELET COUNT 201 TH/MM3 (150-450); RED BLOOD COUNT 2.63 MIL/MM3 (4.00-5.30); RED CELL DISTRIBUTION WIDTH 14.3 % (11.6-17.2); WHITE BLOOD COUNT 10.7 TH/MM3 (4.0-11.0)
[2017-08-21 05:15] LABS: BICARBONATE 32.3 MEQ/L (21.0-32.0); CREATININE 0.75 MG/DL (0.50-1.00); MAGNESIUM 1.9 MG/DL (1.5-2.5); PHOSPHORUS 1.5 MG/DL (2.5-4.9)
[2017-08-21 05:27] LABS: CALCIUM-PROTEIN CORRECTED 8.4 MG/DL (8.5-10.1); TOTAL PROTEIN 4.6 GM/DL (6.4-8.2)
--- NOTE | 2017-08-21 05:45 | RADRPT ---
EXAM DATE/TIME: 08/21/2017 03:35 [facility] COMPARISON: CT ABDOMEN & PELVIS W/O CONTRAST, August 16, 2017, 0:25. ABDOMEN KUB ONLY, August 19, 2017, 10:5 8. INDICATIONS : Ischemic colitis. MEDICAL HISTORY : Hypertension. Diverticulitis. Arthritis. Renal failure SURGICAL HISTORY : Colon resection. Appendectomy. Hysterectomy. ENCOUNTER: Subsequent ACUITY: 1 week PAIN SCORE: Non-responsive. LOCATION: Bilateral abdomen FINDINGS: A single AP supine view of the abdomen and pelvis was obtained demonstrates gas segmentally and porti ons of the colon. The nasogastric tube remains in place with the tip in the stomach. There are surgic al clips in the right side of the abdomen consistent with prior cholecystectomy. Multiple calcified p hleboliths are present in the pelvis. There is no free air on this supine study. A rectal catheter re jasvir in place. CONCLUSION: The bowel gas pattern remains fairly unremarkable. Jl Stanley MD on August 21, 2017 at 5:42 Board Certified Radiologist. This report was verified electronically.
[2017-08-21] MEDS: HYDROCORTISONE SOD SUCCINATE 100 MG VIAL IV PUSH SCH ×2 (06:00→17:36)
[2017-08-21] MEDS ORDERED: DEXMEDETOMIDINE INJ 200 MCG in SODIUM CHLORIDE 0.9% INJ 50 ML IV PRN (07:30)
[2017-08-21] MEDS ORDERED: DEXMEDETOMIDINE HCL 200 MCG/2 ML VIAL IV PUSH ONE (07:30)
[2017-08-21] MEDS: fentaNYL DRIP 250 ML IV PRN ×2 (07:37→10:23)
[2017-08-21] MEDS ORDERED: DEXMEDETOMIDINE INJ 400 MCG in SODIUM CHLORIDE 0.9% INJ 96 ML IV PRN (08:15)
[2017-08-21 08:58] LABS: BANDS 5 % (0-6); CORRECTED NUCLEATED RBC 2 /100 WBC (0-0); LYMPHOCYTES 4 % (9-44); MONOCYTES 7 % (0-8); MYELOCYTES 1 % (0-0); NEUTROPHIL # MANUAL DIFF 9.5 TH/MM3 (1.8-7.7); NUCLEATED RED BLOOD CELL 2 (0-0); POLYS (SEG NEUTROPHILS) 83 % (16-70)
[2017-08-21] MEDS: DIGOXIN 0.5 MG/2 ML VIAL IV PUSH SCH ×2 (09:00→15:50)
[2017-08-21] MEDS ORDERED: POTASSIUM PHOSPHATE INJ 30 MMOL in SODIUM CHLOR 0.9% 250 ML INJ 250 ML IV ONE (09:00)
[2017-08-21] MEDS: SODIUM CHLORIDE 0.9% FLUSH 10 ML FLUSH IV FLUSH SCH ×2 (09:00→20:03)
[2017-08-21] MEDS: FOLIC ACID 1 MG TAB PO SCH (10:21)
[2017-08-21] MEDS: MULTIVITAMIN TAB PO SCH (10:21)
[2017-08-21] MEDS: THIAMINE HCL 100 MG TAB PO SCH (10:22)
[2017-08-21] MEDS: ASPIRIN 81 MG CHEW TAB OG-TUBE SCH (10:22)
[2017-08-21] MEDS: HEPARIN SODIUM - SQ 10,000 UNITS/ML VIAL SQ SCH ×2 (10:26→20:06)
[2017-08-21] MEDS: SODIUM CHLORIDE 0.9% FLUSH 10 ML FLUSH IV FLUSH PRN (11:15)
[2017-08-21] MEDS: NORMOSOL R INJ 1,000 ML IV SCH (11:20)
--- NOTE | 2017-08-21 13:47 | HHI.PR ---
cc: Rolo Guadalupe MD Subjective Subjective Notes Intubated/Sedated Daughter at bedside--- planning for EEG today Objective Vitals/I&O Vital Signs Date Time Temp Pulse Resp B/P (MAP) Pulse Ox O2 Delivery O2 Flow Rate FiO2 08/21/17 12:00 50 08/21/17 12:00 100.9 93 16 109/59 (76) 97 Labs Laboratory Tests Test 08/21/17 04:15 White Blood Count 10.7 Red Blood Count 2.63 Hemoglobin 8.4 Hematocrit 25.2 Mean Corpuscular Volume 95.9 Mean Corpuscular Hemoglobin 32.0 Mean Corpuscular Hemoglobin Concent 33.4 Red Cell Distribution Width 14.3 Platelet Count 201 Mean Platelet Volume 7.7 Neutrophils (%) (Auto) 79.1 Lymphocytes (%) (Auto) 7.9 Monocytes (%) (Auto) 12.5 Eosinophils (%) (Auto) 0.3 Basophils (%) (Auto) 0.2 Neutrophils # (Auto) 8.5 Lymphocytes # (Auto) 0.8 Monocytes # (Auto) 1.3 Eosinophils # (Auto) 0.0 Basophils # (Auto) 0.0 CBC Comment AUTO DIFF Differential Total Cells Counted 100 Neutrophils % (Manual) 83 Band Neutrophils % 5 Lymphocytes % 4 Monocytes % 7 Neutrophils # (Manual) 9.5 Myelocytes 1 Nucleated Red Blood Cells 2 Differential Comment FINAL DIFF MANUAL Platelet Estimate NORMAL Platelet Morphology Comment NORMAL Red Cell Morphology Comment NORMAL Blood Urea Nitrogen 26 Creatinine 0.75 Random Glucose 143 Total Protein 4.6 Calcium Level 7.0 Phosphorus Level 1.5 Magnesium Level 1.9 Sodium Level 149 Potassium Level 3.3 Chloride Level 112 Carbon Dioxide Level 32.3 Anion Gap 5 Estimat Glomerular Filtration Rate 74 Protein Corrected Calcium 8.4 Date/Time Source Procedure Growth Status 08/14/17 22:45 Blood Peripheral Aerobic Blood Culture - Final NO GROWTH IN 5 DAYS Complete 08/14/17 22:45 Blood Peripheral Anaerobic Blood Culture - Final NO GROWTH IN 5 DAYS Complete 08/15/17 15:56 Cerebral Spinal Fluid Lumbar Puncture Gram Stain - Final Complete 08/15/17 15:56 Cerebral Spinal Fluid Lumbar Puncture CSF Culture - Final NO GROWTH IN 72 HOURS Complete 08/15/17 02:28 Stool Stool Cryptosporidium Exam Pending Ordered 08/15/17 02:28 Stool Stool Giardia Antigen (MARCIA) Pending Ordered 08/15/17 12:08 Sputum Endotracheal Gram Stain - Final Complete 08/15/17 12:08 Sputum Endotracheal Sputum Culture - Final HEAVY GROWTH NORMAL RESPIRATORY JARED Complete 08/14/17 22:45 Urine Catheterized Urine Urine Culture - Final NO GROWTH IN 48 HOURS. Complete Cardiovascular: Regular Lungs: Clear Abdomen: Non-distended, Non-tender Extremities: Other (mild generalized edema ) Narrative Exam rectal tube in place A/P Assessment and Plan 82 year old female with ischemic colitis -KUB stable today -WBC normal -Continue TPN -Okay to start trickle feeds -Vent per CCM -Continue neuro workup -Continue medical management at this time -Discussed with patient's daughter at bedside Attending Statement The exam, history, and the medical decision-making described in the above note were completed with the assistance of the mid-level provider. I reviewed and agree with the findings presented. I attest that I had a [id number] encounter with the patient on the same day, and personally performed and documented my assessment and findings in the medical record. abdominal exam stable, no peritonitis or rebound continue to follow exams critically ill Yumiko Flores/First Amina MOLINA Aug 21, 2017 13:47 Rolo Guadalupe MD Aug 29, 2017 12:42
--- NOTE | 2017-08-21 14:18 | HHI.CCPN ---
Subjective Remarks/Hospital Course Patient is an 82-year-old female with past medical history of irritable bowel syndrome, hypertension, arthritis, diverticulitis who presented to the [facility] ED after she was found lying on her bed with urine and feces all around her bed. In addition, the patient was altered and obtunded. Most of the history was obtained from reviewing the medical records. Her laboratory data showed acute renal failure with BUN of 52, creatinine 3.39 and lactic acidosis with a lactic acid level of 6.3. In addition, the patient was in rhabdomyolysis with elevated CK at 3855. She was admitted under the hospitalist service; however, a HaliCAT was called due to worsening mental status, hypertension and hypoxemia. [place] [facility] care medicine was consulted for critical care management. When seen, the patient was lethargic, not following any commands, hypotensive. She was subsequently intubated by myself and a right internal jugular central line was placed for hemodynamic monitoring. ABG post intubation showed a pH of 7.31, co2 of 30, pA02 of 117, bicarbonate 15 and saturation of 96% on PRVC rate of 14, tidal volume 350 with IT:1, PEEP 5 and FIO2 of 100%. She was given two liter boluses of normal saline and placed on a bicarbonate drip. Her lactic acid level is trending down and is currently 3.4 from 6.3 on arrival. In addition, her renal function is improving with IV hydration. Her creatinine level is 2.29 from 3.39. Due to hypotension, Levophed was started. A CT scan of the brain in the emergency department was unremarkable. Her initial chest x-ray showed minimal basilar atelectasis, no effusions or pneumothoraces. According to the patient's family, the patient has been intermittently binge drinking. In addition, they report her having diarrhea for a few days. She had a low-grade fever with a temperature of 100.2 last night. 08/16 Patient is sedated with Fentanyl drip intubated and on Levophed 5 mics. On Bicarb drip. MRI brain yesterday showed small lacunar infarcts in left cerebellar hemisphere and right parietal lobe. Lp showed clear CSF, 17 wbc. Afebrile.Renal function worse today with Cr: 2.64 from 2.29 08/17 Patient remains sedated and intubated. On Bicarb drip. Off Levophed renal function slightly worse today with Cr: 2.82 from 2.64 and UOP: 550 ml in 24 hrs 08/18 Patient bit through ETT overnight s/p new ETT placement using tube exchanger. Sedated with Diprivan and Fentanyl. Afebrile. Renal function is improving with Cr: 1.97 from 2.82. On Bicarb drip. Tube feeds held for possible colonoscopy today. 08/19: Remains sedated, orally intubated on mechanical ventilation. Colonoscopy done yesterday revealed ischemic colitis. Has been evaluated by general surgery. Patient went into A. fib with RVR last night and was started on a Cardizem drip. On Levophed for hypotension 08/20: Remains sedated, orally intubated on mechanical ventilation. Started on TPN on 08/19. Cardizem drip turned off this morning. Received 1 dose of digoxin yesterday. 08/21: Remains sedated, orally intubated on mechanical ventilation. On TPN. Ordered Precedex as well as digoxin daily. Starting trophic feeds today. Objective Vital Signs Date Time Temp Pulse Resp B/P (MAP) Pulse Ox O2 Delivery O2 Flow Rate FiO2 08/21/17 14:00 95 08/21/17 12:00 50 08/21/17 12:00 100.9 16 109/59 (76) 97 Intake and Output 08/21/17 08/21/17 08/22/17 08:00 16:00 00:00 Intake Total 450 ml Output Total 650 ml Balance -200 ml Result Diagram: 08/21/17 0415 08/21/17 0415 Imaging Last Impressions Chest X-Ray 08/18/17 0600 Signed Impressions: Service Date/Time: Friday, August 18, 2017 03:13 - CONCLUSION: 1. Interval placement of nasogastric tube. 2. Bibasal opacity left greater than right with small left effusion. Jl Stanley MD Lumbar Puncture Fluoroscopy 08/15/17 0000 Signed Impressions: Service Date/Time: Tuesday, August 15, 2017 15:36 - CONCLUSION: 1. Uncomplicated fluoroscopically guided lumbar puncture. 2. Please note, requested opening pressures were not obtained due to technical difficulties. Shashi Moreno MD Brain MRI 08/15/17 0000 Signed Impressions: Service Date/Time: Tuesday, August 15, 2017 16:57 - CONCLUSION: 1. 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 2. Mild stenosis in the upper cervical spine as above. Esau Martell MD Abdomen/Pelvis CT 08/15/17 0000 Signed Impressions: Service Date/Time: Wednesday, August 16, 2017 00:25 - CONCLUSION: 1. Abnormal thickening of the descending colonic wall and the possibility of colitis should be entertained. There is also thickening of distal ileal wall which may be inflammatory as well. 2. There is mild anasarca with edema or inflammatory changes within the bilateral paracolic gutters extending down into the pelvis. 3. Small bilateral pleural effusions and bibasilar atelectasis and/or infiltrate. 4. Prominent ileocecal valve and possibility of lipoma at this site is not excluded. Josseline Villagomez MD Abdomen Ultrasound 08/15/17 0000 Signed Impressions: Service Date/Time: Tuesday, August 15, 2017 10:40 - CONCLUSION: 1. No abnormality is identified to explain the clinical symptoms. There is no hydronephrosis. 2. The liver is normal in size and echotexture. Adan Machuca MD Head CT 08/14/[id number] Signed Impressions: Service Date/Time: July 22:54 - CONCLUSION: Unremarkable study. Josseline Villagomez MD Objective Remarks GENERAL: Patient is 82 yo critically ill intubated and sedated SKIN: Warm and dry. HEAD: Normocephalic. EYES: No scleral icterus. No injection or drainage. NECK: Supple, trachea midline. No JVD or lymphadenopathy. Orally intubated CARDIOVASCULAR: S1-S2 irregularly irregular, no gallop or murmur. RESPIRATORY: Orally intubated on mechanical ventilation, good air entry bilaterally, no wheezing or crackles. GASTROINTESTINAL: Abdomen soft, non-tender, minimally distended. Bowel sounds sluggish MUSCULOSKELETAL: No cyanosis, trace edema. Neuro: sedated, intubated A/P Assessment and Plan 1. VDRF 2. Encephalopathy. 3. Small lacunar infarcts 4. Lactic acidemia. 5. Acute kidney injury. 6. Rhabdomyolysis. 7. Diarrhea. 8. Elevated AST likely secondary to EtOH use. 9. EtOH abuse. 10. Urinary tract infection. 11. Hypotension 12. Ischemic colitis 13. A. fib with RVR Plan Neuro: On fentanyl, Diprivan infusion for sedation. Daily sedation vacation. Monitor neuro status. 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 Repeat EEG ordered for 08/21. Starting Precedex on 08/21 to wean off narcotics and propofol as tolerated. Neuro is following- Dr. Danielle LP showed clear CSF, 17 WBC, TP:45.2 Pulm: Continue with vent support and maintain sats> 92%. Bronchodilators, ICU vent bundle. SBT as ligia s/p new ETT placement on 08/18 using tube exchanger ( patient bit thru ETT) CV: Hold beta maite and we have hypotension. Levophed for pressor support. Given fluid bolus earlier. We will initiate maintenance IV fluids. Serial lactic acid monitoring Troponin is trending down. Echo showed EF 45-50% Taper steroids- Decrease hydrocortisone 25mg IV Q12 :Monitor renal function, intake and output and avoid nephrotoxins. Off bicarbonate drip. Renal function gradually improving. IV hydration in view of ischemic colitis Renal is following-Dr. Figueroa, abdomen: No hydronephrosis GI: On Pepcid for GI prophylaxis. Monitor LFT's( trending down) US liver: No abnormalities identified tube feeds-starting tube feeds with Glucerna for trophic feeds at 10cc an hour and advance to 20 cc/h if tolerated today GI is following- colonoscopy done today showed diffuse colitis in the sigmoid colon and descending colon; Necrotic, dusky appearing mucosa. Consistent with severe ischemic. discussed with Dr. Sims, consulted general surgery-plan to treat conservatively unless patient worsens clinically. Started TPN on 08/19 ID: Abx per ID ( Rocephin,Flagyl) monitor for signs of infection(fever and WBCs) . s/p LP showed clear CSF, 17 WBC, TP:45.2, follow up on cultures, HSV DNA PCR CT abdomen/pelvis: thickening of the descending colonic wall and the possibility of colitis should be entertained. There is also thickening of distal ileal wall which may be inflammatory as well. C-diff PCR is negative, stool studies negative Endo: SSI medium with Accu-Chek for glycemic control. TSH: 1.15. Regular insulin 20 units to TPN for better glycemic control Heme: Monitor CBC. May need full anticoagulation for A. fib. We'll discuss with neurology GI prophylaxis with Pepcid and DVT prophylaxis with SCDs, Heparin SQ Lines: Right IJ Central line, Right radial Art line placed 08/15 Discussed with patient's daughter at bedside and updated her on patient;s condition on 08/21. Discussed possible need for tracheostomy and PEG tube if patient needs more time to recover. Daughter is agreeable with that plan. Palliative care following to assist with deciding goals of therapy Condition remains critical CCT 30 mins excluding procedures Mikal Corea MD Aug 21, 2017 14:18
[2017-08-21] MEDS: ACETAMINOPHEN 325 MG TAB PO PRN ×2 (14:30→22:54)
[2017-08-21 15:26] LABS: BACTERIA, URINE RARE /hpf; BILIRUBIN, URINE NEG (NEG); BLOOD, URINE TRACE (NEG); GLUCOSE,URINE 300 mg/dL (NEG); KETONE, URINE NEG (NEG); MUCUS URINE FEW /lpf (OCC); NITRITE,URINE NEG (NEG); SQUAMOUS EPITHELIAL CELL URINE 1 /hpf (0-5); URINE COLOR YELLOW (YELLW/STRAW); URINE LEUKOCYTE ESTERASE SMALL (NEG)
[2017-08-21] MEDS: DEXMEDETOMIDINE INJ 1,000 MCG in SODIUM CHLOR 0.9% 250 ML INJ 240 ML IV PRN ×2 (15:58→22:10)
--- NOTE | 2017-08-21 16:47 | HHI.HCPN ---
Reason for visit a. To assist with evaluation and management of symptoms including: altered mental status, dyspnea, anxiety. b. To assist medical decision maker(s) with: better understanding of current medical conditions; weighing benefits/burdens of medical treatment options; making medical treatment decisions. . (Vashti Riley) Subjective/Interval History Patient seen and examined in ICU. Daughter, Nicole at bedside. Discussed with Dr. Corea and nurse, Patricia. EEG pending. Plan to start trickle feeds, changing sedation and attempt CPAP trials. Will need trach/ PEG decision next week if unable to wean from vent. Patient remains sedated on mechanical ventilation, FiO2 50%. On Precedex. T- max 101.1. Heart rate controlled with Digoxin, rate 90s. BP 143/76. On TPN. WBC 10.5, hemoglobin 8.4, platelet 201. Creatinine remains in normal limits. Total protein 4.6. Repeat sputum , urine and blood cultures pending. Abdominal xray - bowel gas pattern unremarkable. . Family/friend interactions Met with 3 daughters (Jessica Rivera and Chelsea) in consult room and son ( Jl) via telephone. Met for 60 minutes. Also present Brianne Mckeon LCSW. Items discussed: - Palliative care role, purpose, approach Patients general health, functional status, and cognitive changes in the months leading up to the current hospitalization Patient/family understanding of the current medical problems Patient/family understanding of prognosis Code Status [FULL CODE] Advanced Directives -son indicates patient has written living will, will email. Patients goals of care as best understood from advance directives and/or conversations and/or values Current medical treatment options and benefits/burdens of those options Likely scenarios comparing ongoing aggressive care with a transition to `` comfort measures only Questions answered to the best of my ability Palliative care contact information provided In summary, palliative care provided medical update including review of hospital course, test results, upcoming decisions including tracheostomy/PEG tube. Advised based on current information patient does not have a terminal or end stage condition, if this changes family would want to be informed. It seems that unless her condition worsens significantly they will proceed with trach/ PEG. They are all in agreement to FULL CODE status. Family is very appreciative of time spent. (Vashti Riley) Advance Directives Living Will: Never completed Health Care Surrogate: Never completed Durable Power of Associate Programmer Analyst: Never completed (Vashti Riley) Advance Directive Specifics Health Care Surrogate(s): Patient is not currently capacitated to make her own healthcare decisions, uncertain if she will regain capacity. Living Will copy obtained. According to her Living Will she names daughterSilvia as primary HCS and son Jl Olson as alternate HCS. . Documented care wishes: No written advanced directives. . Significant change in goals: FULL CODE. Goals remain aggressive. Family will likely proceed with trach/PEG unless significant decline occurs. . (Vashti Riley) Objective Vital Signs Date Time Temp Pulse Resp B/P (MAP) Pulse Ox O2 Delivery O2 Flow Rate FiO2 08/21/17 16:00 50 08/21/17 16:00 90 08/21/17 16:00 100.7 90 18 163/95 (117) 98 08/21/17 15:28 99 50 08/21/17 15:26 90 158/77 08/21/17 15:00 100.8 91 17 158/77 (104) 98 08/21/17 15:00 91 08/21/17 14:00 101.1 95 16 143/76 (98) 98 08/21/17 14:00 95 08/21/17 13:00 91 08/21/17 13:00 101.1 91 16 125/62 (83) 97 08/21/17 12:00 50 08/21/17 12:00 100.9 93 16 109/59 (76) 97 08/21/17 12:00 93 08/21/17 11:38 96 50 08/21/17 11:00 100.9 87 16 94/50 (65) 95 08/21/17 11:00 87 08/21/17 10:00 100.6 98 16 98/56 (70) 95 08/21/17 10:00 98 08/21/17 09:00 100.4 100 16 107/52 (70) 93 08/21/17 09:00 100 08/21/17 08:29 93 40 08/21/17 08:00 99 08/21/17 08:00 100.0 99 16 105/55 (72) 94 08/21/17 08:00 50 08/21/17 07:00 101 08/21/17 07:00 100.0 101 16 104/54 (71) 95 08/21/17 06:00 121 08/21/17 04:00 50 08/21/17 04:00 99.9 112 16 126/58 (80) 94 08/21/17 04:00 112 08/21/17 03:20 98 50 08/21/17 02:00 96 08/21/17 00:00 99.3 107 16 131/63 (85) 95 08/21/17 00:00 50 08/21/17 00:00 107 08/20/17 22:19 60 08/20/17 22:12 93 60 08/20/17 22:00 117 08/20/17 20:30 93 40 08/20/17 20:00 99.1 90 16 131/58 (82) 92 08/20/17 20:00 90 08/20/17 20:00 40 08/20/17 18:00 84 Intake & Output 08/21/17 08/21/17 07:00 19:00 Intake Total 2000 ml 100 ml Output Total 650 ml Balance 1350 ml 100 ml Intake IV Total 2000 ml 100 ml Output Urine Total 600 ml Stool Total 50 ml Physical Exam CONSTITUTIONAL/GENERAL: This is a critically ill patient, in no apparent distress. TUBES/LINES/DRAINS: ETT, OG, Central line, PIV, wrist restraints, Doe, rectal tube, SCDs. SKIN: No jaundice, rashes, or lesions. Ecchymoses on upper extremities. No wounds seen anteriorly. Skin temperature appropriate. Not diaphoretic. CARDIOVASCULAR: heart rate 90s, S1, S2. RESPIRATORY/CHEST: Symmetric, unlabored respirations on vent. Clear to auscultation. GASTROINTESTINAL: Abdomen soft, distended. Hypoactive bowel sounds. GENITOURINARY: Without palpable bladder distension. Doe catheter in place. MUSCULOSKELETAL: Extremities with edema. No mottling or clubbing. NEUROLOGICAL: Sedated. PSYCHIATRIC: No obvious anxiety noted. . (Vashti Riley) Diagnostic Tests Laboratory Laboratory Tests Test 08/18/17 20:55 08/19/17 04:15 08/20/17 04:00 08/21/17 04:15 Potassium Level 3.0 MEQ/L (3.5-5.1) 3.0 MEQ/L (3.5-5.1) 3.0 MEQ/L (3.5-5.1) 3.3 MEQ/L (3.5-5.1) White Blood Count 6.0 TH/MM3 (4.0-11.0) 8.9 TH/MM3 (4.0-11.0) 10.7 TH/MM3 (4.0-11.0) Red Blood Count 2.91 MIL/MM3 (4.00-5.30) 2.52 MIL/MM3 (4.00-5.30) 2.63 MIL/MM3 (4.00-5.30) Hemoglobin 9.3 GM/DL (11.6-15.3) 8.1 GM/DL (11.6-15.3) 8.4 GM/DL (11.6-15.3) Hematocrit 27.6 % (35.0-46.0) 24.1 % (35.0-46.0) 25.2 % (35.0-46.0) Mean Corpuscular Volume 94.8 FL (80.0-100.0) 95.8 FL (80.0-100.0) 95.9 FL (80.0-100.0) Mean Corpuscular Hemoglobin 32.1 PG (27.0-34.0) 32.1 PG (27.0-34.0) 32.0 PG (27.0-34.0) Mean Corpuscular Hemoglobin Concent 33.8 % (32.0-36.0) 33.5 % (32.0-36.0) 33.4 % (32.0-36.0) Red Cell Distribution Width 14.2 % (11.6-17.2) 14.4 % (11.6-17.2) 14.3 % (11.6-17.2) Platelet Count 102 TH/MM3 (150-450) 161 TH/MM3 (150-450) 201 TH/MM3 (150-450) Mean Platelet Volume 7.9 FL (7.0-11.0) 7.9 FL (7.0-11.0) 7.7 FL (7.0-11.0) Neutrophils (%) (Auto) 81.4 % (16.0-70.0) 79.7 % (16.0-70.0) 79.1 % (16.0-70.0) Lymphocytes (%) (Auto) 6.3 % (9.0-44.0) 8.3 % (9.0-44.0) 7.9 % (9.0-44.0) Monocytes (%) (Auto) 11.9 % (0.0-8.0) 11.1 % (0.0-8.0) 12.5 % (0.0-8.0) Eosinophils (%) (Auto) 0.4 % (0.0-4.0) 0.8 % (0.0-4.0) 0.3 % (0.0-4.0) Basophils (%) (Auto) 0.0 % (0.0-2.0) 0.1 % (0.0-2.0) 0.2 % (0.0-2.0) Neutrophils # (Auto) 4.9 TH/MM3 (1.8-7.7) 7.1 TH/MM3 (1.8-7.7) 8.5 TH/MM3 (1.8-7.7) Lymphocytes # (Auto) 0.4 TH/MM3 (1.0-4.8) 0.7 TH/MM3 (1.0-4.8) 0.8 TH/MM3 (1.0-4.8) Monocytes # (Auto) 0.7 TH/MM3 (0-0.9) 1.0 TH/MM3 (0-0.9) 1.3 TH/MM3 (0-0.9) Eosinophils # (Auto) 0.0 TH/MM3 (0-0.4) 0.1 TH/MM3 (0-0.4) 0.0 TH/MM3 (0-0.4) Basophils # (Auto) 0.0 TH/MM3 (0-0.2) 0.0 TH/MM3 (0-0.2) 0.0 TH/MM3 (0-0.2) CBC Comment DIFF FINAL AUTO DIFF AUTO DIFF Differential Comment FINAL DIFF MANUAL FINAL DIFF MANUAL Blood Urea Nitrogen 31 MG/DL (7-18) 25 MG/DL (7-18) 26 MG/DL (7-18) Creatinine 1.08 MG/DL (0.50-1.00) 0.86 MG/DL (0.50-1.00) 0.75 MG/DL (0.50-1.00) Random Glucose 116 MG/DL (74-106) 210 MG/DL (74-106) 143 MG/DL (74-106) Total Protein 4.8 GM/DL (6.4-8.2) 4.7 GM/DL (6.4-8.2) 4.6 GM/DL (6.4-8.2) Albumin 1.5 GM/DL (3.4-5.0) Calcium Level 7.0 MG/DL (8.5-10.1) 6.9 MG/DL (8.5-10.1) 7.0 MG/DL (8.5-10.1) Phosphorus Level 2.5 MG/DL (2.5-4.9) 1.2 MG/DL (2.5-4.9) 1.5 MG/DL (2.5-4.9) Magnesium Level 1.7 MG/DL (1.5-2.5) 1.8 MG/DL (1.5-2.5) 1.9 MG/DL (1.5-2.5) Alkaline Phosphatase 58 U/L (45-117) Aspartate Amino Transf (AST/SGOT) 34 U/L (15-37) Alanine Aminotransferase (ALT/SGPT) 29 U/L (10-53) Total Bilirubin 0.2 MG/DL (0.2-1.0) Sodium Level 148 MEQ/L (136-145) 149 MEQ/L (136-145) 149 MEQ/L (136-145) Chloride Level 106 MEQ/L (98-107) 110 MEQ/L (98-107) 112 MEQ/L (98-107) Carbon Dioxide Level 34.5 MEQ/L (21.0-32.0) 33.7 MEQ/L (21.0-32.0) 32.3 MEQ/L (21.0-32.0) Anion Gap 8 MEQ/L (5-15) 5 MEQ/L (5-15) 5 MEQ/L (5-15) Estimat Glomerular Filtration Rate 49 ML/MIN (>89) 63 ML/MIN (>89) 74 ML/MIN (>89) Protein Corrected Calcium 8.2 MG/DL (8.5-10.1) 8.2 MG/DL (8.5-10.1) 8.4 MG/DL (8.5-10.1) Differential Total Cells Counted 100 100 Neutrophils % (Manual) 81 % (16-70) 83 % (16-70) Band Neutrophils % 7 % (0-6) 5 % (0-6) Lymphocytes % 3 % (9-44) 4 % (9-44) Monocytes % 6 % (0-8) 7 % (0-8) Eosinophils % 1 % (0-4) Neutrophils # (Manual) 8.0 TH/MM3 (1.8-7.7) 9.5 TH/MM3 (1.8-7.7) Myelocytes 2 % (0-0) 1 % (0-0) Nucleated Red Blood Cells 1 /100 WBC (0-0) 2 /100 WBC (0-0) Toxic Granulation 1+ (NORMAL) Platelet Estimate NORMAL (NORMAL) NORMAL (NORMAL) Platelet Morphology Comment NORMAL (NORMAL) NORMAL (NORMAL) Red Cell Morphology Comment NORMAL (NORMAL) Test 08/21/17 13:45 Urine Color YELLOW (YELLW/STRAW) Urine Turbidity CLEAR (CLEAR) Urine pH 6.0 (5.0-8.5) Urine Specific [place] 1.028 (1.002-1.035) Urine Protein 30 mg/dL (NEG-TRACE) Urine Glucose (UA) 300 mg/dL (NEG) Urine Ketones NEG mg/dL (NEG) Urine Occult Blood TRACE (NEG) Urine Nitrite NEG (NEG) Urine Bilirubin NEG (NEG) Urine Urobilinogen LESS THAN 2.0 MG/DL (LESS Urine Leukocyte Esterase SMALL (NEG) Urine RBC 3 /hpf (0-3) Urine WBC 4 /hpf (0-5) Urine Squamous Epithelial Cells 1 /hpf (0-5) Urine Bacteria RARE /hpf (NONE) Urine Mucus FEW /lpf (OCC) Microscopic Urinalysis Comment CATH-CULTURE IND (Vashti Riley) Result Diagram: 08/21/1741408/21/175 Microbiology Microbiology Date/Time Source Procedure Growth Status 08/21/17 13:45 Blood Peripheral Aerobic Blood Culture Pending Received 08/21/17 13:45 Blood Peripheral Anaerobic Blood Culture Pending Received 08/21/17 15:20 Sputum Endotracheal Gram Stain Pending Received 08/21/17 15:20 Sputum Endotracheal Sputum Culture Pending Received 08/21/17 13:45 Urine Catheterized Urine Urine Culture Pending Received Imaging Last Impressions Abdomen X-Ray 08/21/17 0600 Signed Impressions: Service Date/Time: July 03:35 - CONCLUSION: The bowel gas pattern remains fairly unremarkable. Jl Stanley MD Chest X-Ray 08/18/17 0600 Signed Impressions: Service Date/Time: Friday, August 18, 2017 03:13 - CONCLUSION: 1. Interval placement of nasogastric tube. 2. Bibasal opacity left greater than right with small left effusion. Jl Stanley MD Lumbar Puncture Fluoroscopy 08/15/17 0000 Signed Impressions: Service Date/Time: Tuesday, August 15, 2017 15:36 - CONCLUSION: 1. Uncomplicated fluoroscopically guided lumbar puncture. 2. Please note, requested opening pressures were not obtained due to technical difficulties. Shashi Moreno MD Brain MRI 08/15/17 0000 Signed Impressions: Service Date/Time: Tuesday, August 15, 2017 16:57 - CONCLUSION: 1. 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 2. Mild stenosis in the upper cervical spine as above. Esau Martlel MD Abdomen/Pelvis CT 08/15/17 0000 Signed Impressions: Service Date/Time: Wednesday, August 16, 2017 00:25 - CONCLUSION: 1. Abnormal thickening of the descending colonic wall and the possibility of colitis should be entertained. There is also thickening of distal ileal wall which may be inflammatory as well. 2. There is mild anasarca with edema or inflammatory changes within the bilateral paracolic gutters extending down into the pelvis. 3. Small bilateral pleural effusions and bibasilar atelectasis and/or infiltrate. 4. Prominent ileocecal valve and possibility of lipoma at this site is not excluded. Josseline Villagomez MD Abdomen Ultrasound 08/15/17 0000 Signed Impressions: Service Date/Time: Tuesday, August 15, 2017 10:40 - CONCLUSION: 1. No abnormality is identified to explain the clinical symptoms. There is no hydronephrosis. 2. The liver is normal in size and echotexture. Adan Machuca MD Head CT 08/14/172231 Signed Impressions: Service Date/Time: July 22:54 - CONCLUSION: Unremarkable study. Josseline Villagomez MD Procedures * 08/15/17-lumbar puncture by IR * 08/15/17 - right IJ central line, intubated. (Vashti Riley) Assessment and Plan Disease Oriented Problem List: (1) Acute respiratory failure (2) Acute renal failure (3) Rhabdomyolysis (4) Septic shock (5) Tachycardia (6) Hypotension (7) UTI (urinary tract infection) (8) Alcohol abuse Symptom Scale: (1) Pain 0-10 Scale: Unable to quantify (2) Dyspnea 0-10 Scale: Unable to quantify (3) Altered mental status 0-10 Scale: Unable to quantify (4) Anxiety 0-10 Scale: Unable to quantify Pertinent Non-Medical Issues Psychosocial: . Lives with Nicole flores. Has 3 daughters and 1 son. Spiritual: Jain david. Legal: Patient is not currently capacitated to make her own healthcare decisions , uncertain if she will regain capacity. Living Will copy obtained. According to her Living Will she names Silvia flores as primary HCS and son Jl Olson as alternate HCS. Ethical issues impacting care: No known concerns at this time. . Important Contacts * Silvia "Nicole" Toby, daughter/ 1st contact: [phone] * Jl Olson, son: or [phone] * Jessica, daughter: [phone] * Chelsea, daughter: [phone] . Prognosis Ms. Olson is an 82 year old admitted with rhabdomyolysis, septic shock uncertain etiology, dehydration, renal failure. At this point we will need additional information to determine overall prognosis. Given her advanced age, she remain high risk for further setbacks or decline. . Code Status: Full Code Plan * Patient is not currently capacitated to make her own healthcare decisions, uncertain if she will regain capacity. Living Will copy obtained. According to her Living Will she names Silvia flores as primary HCS and son Jl Olson as alternate HCS. * FULL CODE. * Goals remain aggressive at this time. In summary, palliative care provided medical update including review of hospital course, test results, upcoming decisions including tracheostomy/PEG tube. Advised based on current information patient does not have a terminal or end stage condition, if this changes family would want to be informed. It seems that unless her condition worsens significantly they will proceed with trach/PEG. They are all in agreement to FULL CODE status. * SYMPTOMS: Altered mental status: seems to be improving. Dyspnea: on mech vent. Pain: potential sources include intubation, chronic neck pain, infection , etc. Anxiety: On Precedex. No new medication recommendations at this time. * Palliative care will continue to throughout hospital course to assist with clarification of goals. . (Vashti Riley) Attestation To help prompt me to consider important information that might be impacting today's encounter and assessment, information from prior notes written by myself or my colleagues may have been "brought forward" into today's note. My signature on this note, however, is an attestation that I personally performed the exam, history, and/or decision-making noted today, and, unless otherwise indicated, the interactions with patient, family, and staff as well as the review of records all occurred today. I also attest that the listed assessment and stated plan reflect my best clinical judgment today based on the combination of historical information, prior notes, and today's exam/ interactions. When time spent is documented, it refers only to time spent today by the signer, or if indicated, combined time spent today by collaborating physician/nurse practitioner. (Vashti Riley) Collaborating MD Comments Chart reviewed. Case discussed with palliative care SOD FARMER. Above SOD FARMER note reviewed and I concur. . (Chacorta Potter MD) Vashti Riley Aug 21, 2017 16:47 Chacorta Potter MD Aug 27, 2017 17:25
[2017-08-21] MEDS: LABETALOL HCL 100 MG/20 ML VIAL IV PUSH PRN ×2 (17:36→21:51)
--- NOTE | 2017-08-21 17:55 | HHI.IDPN ---
Subjective Subjective Remarks Ms. Olson is an 82 year old female with past medical history of hypertension, possible sleep apnea, chronic neck pain, sciatica, alcohol abuse, arthritis, chronic rectal prolapse with bowel incontinence and anxiety. Patients daughter reports she was away for last week (normally she lives with Mom). She checked on her mom each night. The night prior to admission patient and daughter spoke to each other and no reported fever or change in behavior etc noted. No recent bounced checks, change in behavior, fires, falls or doors left unopened or such security concerns. She was found by her daughter lying in bed. On questioning patient was not found vomiting and no seizures. But patient was found in urine and feces. With this background patient presented to [facility] ER on when daughter arrived home to find patient laying on the bed covered in urine and feces. She was obtunded and 911 was called. Upon arrival to the ER: * VS - 100.2, HR 104, RR 18, BP 125/55, O2 sat 95% on room air. * WBC 10.2, hgb 13.8, hct 41.6, platelets 304, neutrophils 91.3% * BUN 52, creatinine 3.39, glucose 177, sodium 141, potassium 5.1, chloride 103 , GFR 13 * Lactic acid 6.3 * TCK 3855, CK-MB 113.6, CK-MB 2.9% * CT head - unremarkable * CXR - minimal basilar atelectasis, no effusion or pneumothorax [facility]. acute renal failure, rhabdomyolysis, lactic acidosis, possible UTI, sepsis. Overnight she developed tachycardia, hypotension and hypoxemia. She was transferred to ICU placed on pressor support. She was started on heparin drip per PE protocol. Leather Cutter was consulted for hypotension, septic shock. On non -rebreather with with oxygen saturation 90% and BP 79/50. Since admission she was intubated and placed on [facility] vent. Infectious disease consulted for evaluation and M'ment of septic shock with meningoencephalitis. Overnight events and chart reviewed. On vent, opens eyes spontaneously. Fevers overnight high grade. no rash no diarrhea s/p colonoscopy: cw ischemic colitis. s/b surgery plan on medical management. Antibiotics flagyl cftx Lines Line sites with no e.o infections. Past Medical History reviewed Allergies: Coded Allergies: No Known Allergies (Verified Allergy, Unknown, 08/15/17) Objective . Vital Signs Date Time Temp Pulse Resp B/P (MAP) Pulse Ox O2 Delivery O2 Flow Rate FiO2 08/21/17 16:00 50 08/21/17 16:00 90 08/21/17 16:00 100.7 90 18 163/95 (117) 98 08/21/17 15:28 99 50 08/21/17 15:26 90 158/77 08/21/17 15:00 100.8 91 17 158/77 (104) 98 08/21/17 15:00 91 08/21/17 14:00 101.1 95 16 143/76 (98) 98 08/21/17 14:00 95 08/21/17 13:00 91 08/21/17 13:00 101.1 91 16 125/62 (83) 97 08/21/17 12:00 50 08/21/17 12:00 100.9 93 16 109/59 (76) 97 08/21/17 12:00 93 08/21/17 11:38 96 50 08/21/17 11:00 100.9 87 16 94/50 (65) 95 08/21/17 11:00 87 08/21/17 10:00 100.6 98 16 98/56 (70) 95 08/21/17 10:00 98 08/21/17 09:00 100.4 100 16 107/52 (70) 93 08/21/17 09:00 100 08/21/17 08:29 93 40 08/21/17 08:00 99 08/21/17 08:00 100.0 99 16 105/55 (72) 94 08/21/17 08:00 50 08/21/17 07:00 101 08/21/17 07:00 100.0 101 16 104/54 (71) 95 08/21/17 06:00 121 08/21/17 04:00 50 08/21/17 04:00 99.9 112 16 126/58 (80) 94 08/21/17 04:00 112 08/21/17 03:20 98 50 08/21/17 02:00 96 08/21/17 00:00 99.3 107 16 131/63 (85) 95 08/21/17 00:00 50 08/21/17 00:00 107 08/20/17 22:19 60 08/20/17 22:12 93 60 08/20/17 22:00 117 08/20/17 20:30 93 40 08/20/17 20:00 99.1 90 16 131/58 (82) 92 08/20/17 20:00 90 08/20/17 20:00 40 08/20/17 18:00 84 08/21/17 08/21/17 08/22/17 15:00 23:00 07:00 Intake Total 1310 ml Output Total 750 ml Balance 560 ml Intake IV Total 350 ml TPN/PPN 960 ml Output Urine Total 450 ml Stool Total 300 ml . Laboratory Tests Test 08/20/17 04:00 08/21/17 04:15 White Blood Count 8.9 TH/MM3 10.7 TH/MM3 Red Blood Count 2.52 MIL/MM3 2.63 MIL/MM3 Hemoglobin 8.1 GM/DL 8.4 GM/DL Hematocrit 24.1 % 25.2 % Mean Corpuscular Volume 95.8 FL 95.9 FL Mean Corpuscular Hemoglobin 32.1 PG 32.0 PG Mean Corpuscular Hemoglobin Concent 33.5 % 33.4 % Red Cell Distribution Width 14.4 % 14.3 % Platelet Count 161 TH/MM3 201 TH/MM3 Mean Platelet Volume 7.9 FL 7.7 FL Neutrophils (%) (Auto) 79.7 % 79.1 % Lymphocytes (%) (Auto) 8.3 % 7.9 % Monocytes (%) (Auto) 11.1 % 12.5 % Eosinophils (%) (Auto) 0.8 % 0.3 % Basophils (%) (Auto) 0.1 % 0.2 % Neutrophils # (Auto) 7.1 TH/MM3 8.5 TH/MM3 Lymphocytes # (Auto) 0.7 TH/MM3 0.8 TH/MM3 Monocytes # (Auto) 1.0 TH/MM3 1.3 TH/MM3 Eosinophils # (Auto) 0.1 TH/MM3 0.0 TH/MM3 Basophils # (Auto) 0.0 TH/MM3 0.0 TH/MM3 CBC Comment AUTO DIFF AUTO DIFF Differential Total Cells Counted 100 100 Neutrophils % (Manual) 81 % 83 % Band Neutrophils % 7 % 5 % Lymphocytes % 3 % 4 % Monocytes % 6 % 7 % Eosinophils % 1 % Neutrophils # (Manual) 8.0 TH/MM3 9.5 TH/MM3 Myelocytes 2 % 1 % Nucleated Red Blood Cells 1 /100 WBC 2 /100 WBC Differential Comment FINAL DIFF MANUAL FINAL DIFF MANUAL Toxic Granulation 1+ Platelet Estimate NORMAL NORMAL Platelet Morphology Comment NORMAL NORMAL Red Cell Morphology Comment NORMAL Laboratory Tests Test 08/20/17 04:00 08/21/17 04:15 Blood Urea Nitrogen 25 MG/DL 26 MG/DL Creatinine 0.86 MG/DL 0.75 MG/DL Random Glucose 210 MG/DL 143 MG/DL Total Protein 4.7 GM/DL 4.6 GM/DL Calcium Level 6.9 MG/DL 7.0 MG/DL Phosphorus Level 1.2 MG/DL 1.5 MG/DL Magnesium Level 1.8 MG/DL 1.9 MG/DL Sodium Level 149 MEQ/L 149 MEQ/L Potassium Level 3.0 MEQ/L 3.3 MEQ/L Chloride Level 110 MEQ/L 112 MEQ/L Carbon Dioxide Level 33.7 MEQ/L 32.3 MEQ/L Anion Gap 5 MEQ/L 5 MEQ/L Estimat Glomerular Filtration Rate 63 ML/MIN 74 ML/MIN Protein Corrected Calcium 8.2 MG/DL 8.4 MG/DL Microbiology Date/Time Source Procedure Growth Status 08/21/17 16:33 Blood Peripheral Aerobic Blood Culture Pending Received 08/21/17 16:33 Blood Peripheral Anaerobic Blood Culture Pending Received 08/21/17 13:45 Blood Peripheral Aerobic Blood Culture Pending Received 08/21/17 13:45 Blood Peripheral Anaerobic Blood Culture Pending Received 08/21/17 15:20 Sputum Endotracheal Gram Stain Pending Received 08/21/17 15:20 Sputum Endotracheal Sputum Culture Pending Received 08/21/17 13:45 Urine Catheterized Urine Urine Culture Pending Received Imaging Last Impressions Lumbar Puncture Fluoroscopy 08/15/17 0000 Signed Impressions: Service Date/Time: Tuesday, August 15, 2017 15:36 - CONCLUSION: 1. Uncomplicated fluoroscopically guided lumbar puncture. 2. Please note, requested opening pressures were not obtained due to technical difficulties. Shashi Moreno MD Chest X-Ray 08/15/17 0000 Signed Impressions: Service Date/Time: Tuesday, August 15, 2017 08:15 - CONCLUSION: 1. ETT and right IJ central line in good position. No pneumothorax. 2. Stable mild left lower lung zone airspace disease, presumably atelectasis. Douglas Jean MD Brain MRI 08/15/17 0000 Signed Impressions: Service Date/Time: Tuesday, August 15, 2017 16:57 - CONCLUSION: 1. 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 2. Mild stenosis in the upper cervical spine as above. Esau Martell MD Abdomen/Pelvis CT 08/15/17 0000 Signed Impressions: Service Date/Time: Wednesday, August 16, 2017 00:25 - CONCLUSION: 1. Abnormal thickening of the descending colonic wall and the possibility of colitis should be entertained. There is also thickening of distal ileal wall which may be inflammatory as well. 2. There is mild anasarca with edema or inflammatory changes within the bilateral paracolic gutters extending down into the pelvis. 3. Small bilateral pleural effusions and bibasilar atelectasis and/or infiltrate. 4. Prominent ileocecal valve and possibility of lipoma at this site is not excluded. Josseline Villagomez MD Abdomen Ultrasound 08/15/17 0000 Signed Impressions: Service Date/Time: Tuesday, August 15, 2017 10:40 - CONCLUSION: 1. No abnormality is identified to explain the clinical symptoms. There is no hydronephrosis. 2. The liver is normal in size and echotexture. Adan Machuca MD Head CT 08/14/172231 Signed Impressions: Service Date/Time: July 22:54 - CONCLUSION: Unremarkable study. Josseline Villagomez MD Physical Exam GENERAL: This is a well-nourished, well-developed patient, in no apparent distress. SKIN: No rashes, ecchymoses or lesions. Cool and dry. HEAD: Atraumatic. Normocephalic. No temporal or scalp tenderness. EYES: Pupils equal round and reactive. Extraocular motions intact. No scleral icterus. No injection or drainage. ENT: Intubated. NECK: Trachea midline. Supple, nontender, CARDIOVASCULAR: + murmur, no gallops, rub RESPIRATORY: Clear to auscultation. Breath sounds equal bilaterally. No wheezes , rales, or rhonchi. GASTROINTESTINAL: Abdomen soft, non-tender ( no reaction to palpation), + at least moderately distended. MUSCULOSKELETAL: Extremities without clubbing, cyanosis, or edema. No joint tenderness, effusion, or edema noted. No calf tenderness. Negative Homans sign bilaterally. NEUROLOGICAL: Opens eyes spontaneously, moves all 4 extremities. Psych unable to assess IV line sites with no e.o infection. 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 Alcohol abuse: at risk for withdrawal. Acute rhabdomyolysis: ? seizures. Acute renal failure: sepsis, prerenal, rhabdomyolysis. Colitis clinically and radiologically ; c.diff negative ? ischemic Recs: DC Ceftriaxone IV q24hrs. Start Cefepime IV (possible HCAP) Vanco x 1 dose for now. Further dosing per Infectious Disease. Continue Flagyl IV (ischemic colitis and aspiration PNA) Blood cultures x 2 Sputum cultures Urine cultures CXR r/.o HCAP Follow cultures. Follow clinically. juana RN dw Patients daughters in the room. I will be off 08/22/2017 to 08/24/2017. Other ID MDs covering for me. Please check with [facility] call center. Pieadd Corea MD Aug 21, 2017 17:55
--- NOTE | 2017-08-21 18:41 | HHI.PR ---
Review/Management Diagnosis several small strokes on MRI--probably embolic metabolic encephalopathy--prognosis guarded. Discussed with family Diagnosis/Plan: Subjective Subjective Comments No acute events reported Active Medications Current Medications Medications (Trade) Dose Ordered Sig/Al Route Start Time Stop Time Status Last Admin (NS Flush) 2 ml UNSCH PRN IV FLUSH 08/15/17 02:00 08/21/17 11:15 (NS Flush) 2 ml BID IV FLUSH 08/15/17 09:00 08/21/17 09:00 (Narcan Inj) 0.4 mg UNSCH PRN IV PUSH 08/15/17 02:00 Metronidazole 100 ml @ 100 mls/hr Q6H IV 08/15/17 08:00 08/21/17 13:38 Miscellaneous Information Patient in critical care unit? Ass... [id number] .XX 08/15/17 06:15 08/15/17 06:15 (Romazicon Inj) 0.2 mg Q1M PRN IV PUSH 08/15/17 06:30 (Atrovent Neb) 0.5 mg Q2HR NEB PRN NEB 08/15/17 06:30 08/18/17 08:25 Fentanyl Citrate 250 ml @ 5 mls/hr TITRATE PRN IV 08/15/17 07:30 08/21/17 10:23 (Brethine Inj) 1 mg UNSCH PRN SQ 08/15/17 09:00 (Vitamin B1) 100 mg DAILY PO 08/15/17 12:00 08/21/17 10:22 (Theragran) 1 tab DAILY PO 08/15/17 12:00 08/21/17 10:21 (Folate) 1 mg DAILY PO 08/15/17 12:00 08/21/17 10:21 (Pepcid Inj) 10 mg Q12H IV PUSH 08/15/17 12:00 08/21/17 12:10 (Aspirin Chew) 81 mg DAILY OG-TUBE 08/15/17 19:00 08/21/17 10:22 (D50w (Vial) Inj) 50 ml UNSCH PRN IV PUSH 08/16/17 08:00 (Glucagon Inj) 1 mg UNSCH PRN OTHER 08/16/17 08:00 (NovoLIN R SUPPLEMENTAL SCALE) 1 Q4HR SQ 08/16/17 08:00 08/21/17 00:09 (SoluCORTEF INJ) 25 mg Q12H IV PUSH 08/17/17 18:00 08/21/17 17:36 (Lopressor) 25 mg Q12HR PO 08/17/17 09:00 Future Hold 08/19/17 08:46 (Heparin Inj) 5,000 units Q12HR SQ 08/17/17 09:00 08/21/17 10:26 Propofol 100 ml @ 2.19 mls/hr TITRATE PRN IV 08/17/17 18:30 08/21/17 10:24 Diltiazem HCl 125 mg/Sodium Chloride 125 ml @ 5 mls/hr TITRATE PRN IV 08/18/17 20:15 08/20/17 14:08 Phenylephrine HCl 40 mg/Dextrose 500 ml @ 30 mls/hr TITRATE PRN IV 08/19/17 10:30 08/20/17 00:09 (Brethine Inj) 1 mg UNSCH PRN SQ 08/19/17 10:30 Fat Emulsion Intravenous 250 ml @ 31.25 mls/ hr Q24H IV-CENTRAL 08/19/17 20:00 08/20/17 20:10 Vasopressin 40 units/Dextrose 100 ml @ 6 mls/hr [id number] IV 08/19/17 15:30 Parenteral Electrolytes 1,000 ml @ 42 mls/hr [id number] IV 08/19/17 16:00 08/21/17 11:20 Sodium Chloride 5.5 meq/Sodium Acetate 29.5 meq/ Potassium Chloride 20 meq/ Magnesium Chloride 5 meq/ Calcium Chloride 4.5 meq/ Multivitamins 10 ml/Folic Acid 1 mg/Insulin Human Regular 20 units/ Amino Acids/ Dextrose 1,042.3719 ml @ 42 mls/hr Q24H IV-CENTRAL 08/20/17 20:00 08/20/17 20:10 (Lanoxin Inj) 0.125 mg DAILY IV PUSH 08/21/17 09:00 08/21/17 15:50 (Tylenol) 650 mg Q4H PRN PO 08/21/17 14:15 08/21/17 14:30 Dexmedetomidine HCl 1000 mcg/ Sodium Chloride 250 ml @ 4.05 mls/hr TITRATE PRN IV 08/21/17 15:15 08/21/17 15:58 (Trandate Inj) 20 mg Q4H PRN IV PUSH 08/21/17 17:15 08/21/17 17:36 Cefepime HCl 2000 mg/Sodium Chloride 100 ml @ 200 mls/hr Q8H IV 08/21/17 18:00 Vancomycin HCl 1000 mg/Sodium Chloride 250 ml @ 250 mls/hr ONCE ONCE IV 08/21/17 20:00 08/21/17 20:59 Allergies Allergies Coded Allergies No Known Allergies (Verified Allergy, Unknown, 08/15/17) Exam I&O / VS 08/21/17 08/21/17 08/22/17 15:00 23:00 07:00 Intake Total 1310 ml Output Total 750 ml Balance 560 ml Intake IV Total 350 ml TPN/PPN 960 ml Output Urine Total 450 ml Stool Total 300 ml Vital Signs Date Time Temp Pulse Resp B/P (MAP) Pulse Ox O2 Delivery O2 Flow Rate FiO2 08/21/17 18:00 94 08/21/17 17:00 88 08/21/17 16:00 50 08/21/17 16:00 90 08/21/17 16:00 100.7 90 18 163/95 (117) 98 08/21/17 15:28 99 50 08/21/17 15:26 90 158/77 08/21/17 15:00 100.8 91 17 158/77 (104) 98 08/21/17 15:00 91 08/21/17 14:00 101.1 95 16 143/76 (98) 98 08/21/17 14:00 95 08/21/17 13:00 91 08/21/17 13:00 101.1 91 16 125/62 (83) 97 08/21/17 12:00 50 08/21/17 12:00 100.9 93 16 109/59 (76) 97 08/21/17 12:00 93 08/21/17 11:38 96 50 08/21/17 11:00 100.9 87 16 94/50 (65) 95 08/21/17 11:00 87 08/21/17 10:00 100.6 98 16 98/56 (70) 95 08/21/17 10:00 98 08/21/17 09:00 100.4 100 16 107/52 (70) 93 08/21/17 09:00 100 08/21/17 08:29 93 40 08/21/17 08:00 99 08/21/17 08:00 100.0 99 16 105/55 (72) 94 08/21/17 08:00 50 08/21/17 07:00 101 08/21/17 07:00 100.0 101 16 104/54 (71) 95 08/21/17 06:00 121 08/21/17 04:00 50 08/21/17 04:00 99.9 112 16 126/58 (80) 94 08/21/17 04:00 112 08/21/17 03:20 98 50 08/21/17 02:00 96 08/21/17 00:00 99.3 107 16 131/63 (85) 95 08/21/17 00:00 50 08/21/17 00:00 107 08/20/17 22:19 60 08/20/17 22:12 93 60 08/20/17 22:00 117 08/20/17 20:30 93 40 08/20/17 20:00 99.1 90 16 131/58 (82) 92 08/20/17 20:00 90 08/20/17 20:00 40 Exam Comments sedation on hold and patient orients to voice. Does not follow commands pupils 2 mm eomI MOTOR--moving BUE spontaneously Objective Micro and Labs Laboratory Tests Test 08/21/17 04:15 08/21/17 13:45 White Blood Count 10.7 Red Blood Count 2.63 Hemoglobin 8.4 Hematocrit 25.2 Mean Corpuscular Volume 95.9 Mean Corpuscular Hemoglobin 32.0 Mean Corpuscular Hemoglobin Concent 33.4 Red Cell Distribution Width 14.3 Platelet Count 201 Mean Platelet Volume 7.7 Neutrophils (%) (Auto) 79.1 Lymphocytes (%) (Auto) 7.9 Monocytes (%) (Auto) 12.5 Eosinophils (%) (Auto) 0.3 Basophils (%) (Auto) 0.2 Neutrophils # (Auto) 8.5 Lymphocytes # (Auto) 0.8 Monocytes # (Auto) 1.3 Eosinophils # (Auto) 0.0 Basophils # (Auto) 0.0 CBC Comment AUTO DIFF Differential Total Cells Counted 100 Neutrophils % (Manual) 83 Band Neutrophils % 5 Lymphocytes % 4 Monocytes % 7 Neutrophils # (Manual) 9.5 Myelocytes 1 Nucleated Red Blood Cells 2 Differential Comment FINAL DIFF MANUAL Platelet Estimate NORMAL Platelet Morphology Comment NORMAL Red Cell Morphology Comment NORMAL Blood Urea Nitrogen 26 Creatinine 0.75 Random Glucose 143 Total Protein 4.6 Calcium Level 7.0 Phosphorus Level 1.5 Magnesium Level 1.9 Sodium Level 149 Potassium Level 3.3 Chloride Level 112 Carbon Dioxide Level 32.3 Anion Gap 5 Estimat Glomerular Filtration Rate 74 Protein Corrected Calcium 8.4 Urine Color YELLOW Urine Turbidity CLEAR Urine pH 6.0 Urine Specific [place] 1.028 Urine Protein 30 Urine Glucose (UA) 300 Urine Ketones NEG Urine Occult Blood TRACE Urine Nitrite NEG Urine Bilirubin NEG Urine Urobilinogen LESS THAN 2.0 Urine Leukocyte Esterase SMALL Urine RBC 3 Urine WBC 4 Urine Squamous Epithelial Cells 1 Urine Bacteria RARE Urine Mucus FEW Microscopic Urinalysis Comment CATH-CULTURE IND Date/Time Source Procedure Growth Status 08/21/17 16:33 Blood Peripheral Aerobic Blood Culture Pending Received 08/21/17 16:33 Blood Peripheral Anaerobic Blood Culture Pending Received 08/15/17 15:56 Cerebral Spinal Fluid Lumbar Puncture Gram Stain - Final Complete 08/15/17 15:56 Cerebral Spinal Fluid Lumbar Puncture CSF Culture - Final NO GROWTH IN 72 HOURS Complete 08/15/17 02:28 Stool Stool Cryptosporidium Exam Pending Ordered 08/15/17 02:28 Stool Stool Giardia Antigen (MARCIA) Pending Ordered 08/21/17 15:20 Sputum Endotracheal Gram Stain Pending Received 08/21/17 15:20 Sputum Endotracheal Sputum Culture Pending Received 08/21/17 13:45 Urine Catheterized Urine Urine Culture Pending Received Diagnostic Tests EEG---generalized slowing in delta frequency. no epileptiform discharges Kang Danielle MD PhD Aug 21, 2017 18:41
[2017-08-21] MEDS: CEFEPIME INJ 2,000 MG in SODIUM CHLORIDE 0.9% INJ 100 ML IV SCH (18:56)
--- NOTE | 2017-08-21 19:56 | RADRPT ---
EXAM DATE/TIME: 08/21/2017 19:39 [place] COMPARISON: CHEST SINGLE AP, August 18, 2017, 3:13. INDICATIONS : Pneumonia MEDICAL HISTORY : Hypertension. Diverticulitis. Arthritis. Renal failure SURGICAL HISTORY : Colon resection. Appendectomy. Hysterectomy. ENCOUNTER: Subsequent ACUITY: 1 week PAIN SCORE: Non-responsive. LOCATION: Bilateral chest FINDINGS: Stable ETT, NGT, and right IJ central line. Worsening bilateral lower lung zone airspace disease and associated pleural effusions, likely very small on the right and [id number] in size on the lef t. Cardiomediastinal contours are stable. Remainder of exam is unchanged. CONCLUSION: 1. Stable tubes and lines, as above. 2. Worsening bilateral lower lung zone pleural parenchymal disease. Douglas Jean MD on August 21, 2017 at 19:53 Board Certified Radiologist. This report was verified electronically.
[2017-08-21] MEDS: SODIUM CHLORIDE 23.4% INJ 5.5 MEQ, SODIUM ACETATE INJ 29.5 MEQ, POTASSIUM CHLORIDE INJ ... IV-CENTRAL SCH ×9 (20:00)
[2017-08-21] MEDS: FAT EMULSION 20% INJ 250 ML (Daily over 8 hours) IV-CENTRAL SCH (20:00)
[2017-08-21] MEDS ORDERED: VANCOMYCIN INJ 1,000 MG in SODIUM CHLOR 0.9% 250 ML INJ 250 ML IV ONE (20:00)
[2017-08-21 21:58] LABS: PHOSPHORUS 2.3 MG/DL (2.5-4.9)
[2017-08-22] VITALS (34 sets, daily range): BP systolic 126–151; BP diastolic 62–84; PULSE 91–110; RESP 9–24; TEMP 99.3–102.8; O2SAT 83–98
[2017-08-22] MEDS: fentaNYL DRIP 250 ML IV PRN (00:33)
[2017-08-22] MEDS: metroNIDAZOLE 500 MG INJ 100 ML IV SCH ×4 (01:00→19:37)
[2017-08-22] MEDS: CEFEPIME INJ 2,000 MG in SODIUM CHLORIDE 0.9% INJ 100 ML IV SCH ×3 (02:06→18:13)
[2017-08-22] MEDS: INSULIN NovoLIN REGULAR SUPPLEMENTAL SCALE SQ SCH ×5 (04:00→19:53)
[2017-08-22 05:16] LABS: AUTOMATED NEUTROPHIL # 11.9 TH/MM3 (1.8-7.7); BASOPHIL % 0.1 % (0.0-2.0); EOSINOPHIL % 0.1 % (0.0-4.0); HEMOGLOBIN 9.7 GM/DL (11.6-15.3); LYMPH % 9.3 % (9.0-44.0); LYMPHOCYTE # 1.4 TH/MM3 (1.0-4.8); MEAN CELL VOLUME 94.4 FL (80.0-100.0); MEAN CORPUSCULAR HEMOGLOBIN 31.6 PG (27.0-34.0); MEAN CORPUSCULAR HGB CONC 33.5 % (32.0-36.0); MEAN PLATELET VOLUME 7.6 FL (7.0-11.0); MONO % 8.9 % (0.0-8.0); MONOCYTE # 1.3 TH/MM3 (0-0.9); NEUT % 81.6 % (16.0-70.0); PLATELET COUNT 258 TH/MM3 (150-450); RED BLOOD COUNT 3.07 MIL/MM3 (4.00-5.30); RED CELL DISTRIBUTION WIDTH 14.1 % (11.6-17.2); WHITE BLOOD COUNT 14.6 TH/MM3 (4.0-11.0)
[2017-08-22 05:53] LABS: BICARBONATE 30.5 MEQ/L (21.0-32.0); CALCIUM 7.4 MG/DL (8.5-10.1); CREATININE 0.71 MG/DL (0.50-1.00); MAGNESIUM 2.1 MG/DL (1.5-2.5); PHOSPHORUS 2.5 MG/DL (2.5-4.9)
[2017-08-22 06:08] LABS: CALCIUM-PROTEIN CORRECTED 8.5 MG/DL (8.5-10.1); TOTAL PROTEIN 5.2 GM/DL (6.4-8.2)
[2017-08-22] MEDS: HYDROCORTISONE SOD SUCCINATE 100 MG VIAL IV PUSH SCH (06:25)
[2017-08-22] MEDS: DEXMEDETOMIDINE INJ 1,000 MCG in SODIUM CHLOR 0.9% 250 ML INJ 240 ML IV PRN ×3 (06:37→22:00)
[2017-08-22] MEDS ORDERED: VANCOMYCIN HCL 1000 MG VIAL ONE (07:02)
[2017-08-22] MEDS ORDERED: GENTAMICIN SULFATE 80 MG/2 ML VIAL ONE (07:03)
[2017-08-22 07:17] LABS: LYMPHOCYTES 7 % (9-44); MONOCYTES 5 % (0-8); MYELOCYTES 1 % (0-0); NEUTROPHIL # MANUAL DIFF 12.8 TH/MM3 (1.8-7.7); POLYS (SEG NEUTROPHILS) 87 % (16-70)
[2017-08-22] MEDS: MULTIVITAMIN TAB PO SCH (09:44)
[2017-08-22] MEDS: THIAMINE HCL 100 MG TAB PO SCH (09:44)
[2017-08-22] MEDS: FOLIC ACID 1 MG TAB PO SCH (09:44)
[2017-08-22] MEDS: ASPIRIN 81 MG CHEW TAB OG-TUBE SCH (09:44)
[2017-08-22] MEDS: DIGOXIN 0.5 MG/2 ML VIAL IV PUSH SCH (09:45)
[2017-08-22] MEDS: HEPARIN SODIUM - SQ 10,000 UNITS/ML VIAL SQ SCH ×2 (09:45→19:38)
[2017-08-22] MEDS: SODIUM CHLORIDE 0.9% FLUSH 10 ML FLUSH IV FLUSH SCH ×2 (09:45→19:37)
[2017-08-22] MEDS: VASOPRESSIN INJ 40 UNITS in DEXTROSE 5% IN WATER 100ML INJ 98 ML IV SCH ×2 (09:46)
[2017-08-22] MEDS ORDERED: Vancomycin Consult Pharmacy 1 EA OTHER SCH (10:00)
--- NOTE | 2017-08-22 10:08 | HHI.IDPN ---
Subjective Subjective Remarks ID COVERAGE FOR DR Bebeto BRITO Ms. Olson is an 82 year old female with past medical history of hypertension, possible sleep apnea, chronic neck pain, sciatica, alcohol abuse, arthritis, chronic rectal prolapse with bowel incontinence and anxiety. Patients daughter reports she was away for last week (normally she lives with Mom). She checked on her mom each night. The night prior to admission patient and daughter spoke to each other and no reported fever or change in behavior etc noted. No recent bounced checks, change in behavior, fires, falls or doors left unopened or such security concerns. She was found by her daughter lying in bed. On questioning patient was not found vomiting and no seizures. But patient was found in urine and feces. With this background patient presented to [facility] ER on when daughter arrived home to find patient laying on the bed covered in urine and feces. She was obtunded and 911 was called. Upon arrival to the ER: * VS - 100.2, HR 104, RR 18, BP 125/55, O2 sat 95% on room air. * WBC 10.2, hgb 13.8, hct 41.6, platelets 304, neutrophils 91.3% * BUN 52, creatinine 3.39, glucose 177, sodium 141, potassium 5.1, chloride 103 , GFR 13 * Lactic acid 6.3 * TCK 3855, CK-MB 113.6, CK-MB 2.9% * CT head - unremarkable * CXR - minimal basilar atelectasis, no effusion or pneumothorax [facility]. acute renal failure, rhabdomyolysis, lactic acidosis, possible UTI, sepsis. Overnight she developed tachycardia, hypotension and hypoxemia. She was transferred to ICU placed on pressor support. She was started on heparin drip per PE protocol. Heel Emery Buffer was consulted for hypotension, septic shock. On non -rebreather with with oxygen saturation 90% and BP 79/50. Since admission she was intubated and placed [facility]. Infectious disease consulted for evaluation and M'ment of septic shock with meningoencephalitis. Notes reviewed D/W RN Febrile since yesterday Temps up to 103 this morning BP ok Central line placed 2/16 WBC up to 16K CXR worse infiltrates C diff negative Colonoscopy C/W severe ischemic colitis Creatinine ok On the vent - on fentanyl and precedex Antibiotics Current Medications Cefepime Flagyl Vanco x 1 dose 08/21 Medications (Trade) Dose Ordered Sig/Al Route Start Time Stop Time Status Last Admin (NS Flush) 2 ml UNSCH PRN IV FLUSH 08/15/17 02:00 08/21/17 11:15 (NS Flush) 2 ml BID IV FLUSH 08/15/17 09:00 08/22/17 09:45 (Narcan Inj) 0.4 mg UNSCH PRN IV PUSH 08/15/17 02:00 Metronidazole 100 ml @ 100 mls/hr Q6H IV 08/15/17 08:00 08/22/17 09:44 Miscellaneous Information Patient in critical care unit? Ass... [id number] .XX 08/15/17 06:15 08/15/17 06:15 (Romazicon Inj) 0.2 mg Q1M PRN IV PUSH 08/15/17 06:30 (Atrovent Neb) 0.5 mg Q2HR NEB PRN NEB 08/15/17 06:30 08/18/17 08:25 Fentanyl Citrate 250 ml @ 5 mls/hr TITRATE PRN IV 08/15/17 07:30 08/22/17 00:33 (Brethine Inj) 1 mg UNSCH PRN SQ 08/15/17 09:00 (Vitamin B1) 100 mg DAILY PO 08/15/17 12:00 08/22/17 09:44 (Theragran) 1 tab DAILY PO 08/15/17 12:00 08/22/17 09:44 (Folate) 1 mg DAILY PO 08/15/17 12:00 08/22/17 09:44 (Pepcid Inj) 10 mg Q12H IV PUSH 08/15/17 12:00 08/21/17 23:29 (Aspirin Chew) 81 mg DAILY OG-TUBE 08/15/17 19:00 08/22/17 09:44 (D50w (Vial) Inj) 50 ml UNSCH PRN IV PUSH 08/16/17 08:00 (Glucagon Inj) 1 mg UNSCH PRN OTHER 08/16/17 08:00 (NovoLIN R SUPPLEMENTAL SCALE) 1 Q4HR SQ 08/16/17 08:00 08/21/17 00:09 (SoluCORTEF INJ) 25 mg Q12H IV PUSH 08/17/17 18:00 08/22/17 06:25 (Lopressor) 25 mg Q12HR PO 08/17/17 09:00 Future Hold 08/19/17 08:46 (Heparin Inj) 5,000 units Q12HR SQ 08/17/17 09:00 08/22/17 09:45 Propofol 100 ml @ 2.19 mls/hr TITRATE PRN IV 08/17/17 18:30 08/21/17 10:24 Diltiazem HCl 125 mg/Sodium Chloride 125 ml @ 5 mls/hr TITRATE PRN IV 08/18/17 20:15 08/20/17 14:08 Phenylephrine HCl 40 mg/Dextrose 500 ml @ 30 mls/hr TITRATE PRN IV 08/19/17 10:30 08/20/17 00:09 (Brethine Inj) 1 mg UNSCH PRN SQ 08/19/17 10:30 Fat Emulsion Intravenous 250 ml @ 31.25 mls/ hr Q24H IV-CENTRAL 08/19/17 20:00 08/20/17 20:10 Vasopressin 40 units/Dextrose 100 ml @ 6 mls/hr [id number] IV 08/19/17 15:30 Parenteral Electrolytes 1,000 ml @ 42 mls/hr [id number] IV 08/19/17 16:00 08/21/17 11:20 Sodium Chloride 5.5 meq/Sodium Acetate 29.5 meq/ Potassium Chloride 20 meq/ Magnesium Chloride 5 meq/ Calcium Chloride 4.5 meq/ Multivitamins 10 ml/Folic Acid 1 mg/Insulin Human Regular 20 units/ Amino Acids/ Dextrose 1,042.3719 ml @ 42 mls/hr Q24H IV-CENTRAL 08/20/17 20:00 08/20/17 20:10 (Lanoxin Inj) 0.125 mg DAILY IV PUSH 08/21/17 09:00 08/22/17 09:45 (Tylenol) 650 mg Q4H PRN PO 08/21/17 14:15 08/21/17 22:54 Dexmedetomidine HCl 1000 mcg/ Sodium Chloride 250 ml @ 4.05 mls/hr TITRATE PRN IV 08/21/17 15:15 08/22/17 06:37 (Trandate Inj) 20 mg Q4H PRN IV PUSH 08/21/17 17:15 08/21/17 21:51 Cefepime HCl 2000 mg/Sodium Chloride 100 ml @ 200 mls/hr Q8H IV 08/21/17 18:00 08/22/17 09:42 Lines Line sites with no e.o infections. Past Medical History reviewed Allergies: Coded Allergies: No Known Allergies (Verified Allergy, Unknown, 08/15/17) Objective . Vital Signs Date Time Temp Pulse Resp B/P (MAP) Pulse Ox O2 Delivery O2 Flow Rate FiO2 08/22/17 09:46 105 145/75 08/22/17 08:01 50 08/22/17 08:00 96 50 08/22/17 08:00 50 08/22/17 06:00 96 08/22/17 04:12 95 50 08/22/17 04:00 50 08/22/17 04:00 99.3 94 16 137/69 (91) 96 08/22/17 04:00 94 08/22/17 02:00 97 08/22/17 00:00 94 08/22/17 00:00 100.4 94 18 142/77 (98) 96 08/22/17 00:00 50 08/21/17 23:54 16 08/21/17 23:25 97 50 08/21/17 22:53 101.1 08/21/17 22:00 97 08/21/17 20:39 96 50 08/21/17 20:00 50 08/21/17 20:00 100.2 98 17 205/110 (141) 94 08/21/17 20:00 98 08/21/17 18:00 94 08/21/17 17:00 88 08/21/17 16:00 50 08/21/17 16:00 90 08/21/17 16:00 100.7 90 18 163/95 (117) 98 08/21/17 15:28 99 50 08/21/17 15:26 90 158/77 08/21/17 15:00 100.8 91 17 158/77 (104) 98 08/21/17 15:00 91 08/21/17 14:00 101.1 95 16 143/76 (98) 98 08/21/17 14:00 95 08/21/17 13:00 91 08/21/17 13:00 101.1 91 16 125/62 (83) 97 08/21/17 12:00 50 08/21/17 12:00 100.9 93 16 109/59 (76) 97 08/21/17 12:00 93 08/21/17 11:38 96 50 08/21/17 11:00 100.9 87 16 94/50 (65) 95 08/21/17 11:00 87 08/21/17 10:00 100.6 98 16 98/56 (70) 95 08/21/17 10:00 98 . Laboratory Tests Test 08/21/17 04:15 08/22/17 04:20 White Blood Count 10.7 TH/MM3 14.6 TH/MM3 Red Blood Count 2.63 MIL/MM3 3.07 MIL/MM3 Hemoglobin 8.4 GM/DL 9.7 GM/DL Hematocrit 25.2 % 29.0 % Mean Corpuscular Volume 95.9 FL 94.4 FL Mean Corpuscular Hemoglobin 32.0 PG 31.6 PG Mean Corpuscular Hemoglobin Concent 33.4 % 33.5 % Red Cell Distribution Width 14.3 % 14.1 % Platelet Count 201 TH/MM3 258 TH/MM3 Mean Platelet Volume 7.7 FL 7.6 FL Neutrophils (%) (Auto) 79.1 % 81.6 % Lymphocytes (%) (Auto) 7.9 % 9.3 % Monocytes (%) (Auto) 12.5 % 8.9 % Eosinophils (%) (Auto) 0.3 % 0.1 % Basophils (%) (Auto) 0.2 % 0.1 % Neutrophils # (Auto) 8.5 TH/MM3 11.9 TH/MM3 Lymphocytes # (Auto) 0.8 TH/MM3 1.4 TH/MM3 Monocytes # (Auto) 1.3 TH/MM3 1.3 TH/MM3 Eosinophils # (Auto) 0.0 TH/MM3 0.0 TH/MM3 Basophils # (Auto) 0.0 TH/MM3 0.0 TH/MM3 CBC Comment AUTO DIFF AUTO DIFF Differential Total Cells Counted 100 100 Neutrophils % (Manual) 83 % 87 % Band Neutrophils % 5 % Lymphocytes % 4 % 7 % Monocytes % 7 % 5 % Neutrophils # (Manual) 9.5 TH/MM3 12.8 TH/MM3 Myelocytes 1 % 1 % Nucleated Red Blood Cells 2 /100 WBC Differential Comment FINAL DIFF MANUAL FINAL DIFF MANUAL Platelet Estimate NORMAL NORMAL Platelet Morphology Comment NORMAL NORMAL Red Cell Morphology Comment NORMAL Laboratory Tests Test 08/21/17 04:15 08/21/17 21:15 08/22/17 04:20 Blood Urea Nitrogen 26 MG/DL 30 MG/DL Creatinine 0.75 MG/DL 0.71 MG/DL Random Glucose 143 MG/DL 127 MG/DL Total Protein 4.6 GM/DL 5.2 GM/DL Calcium Level 7.0 MG/DL 7.4 MG/DL Phosphorus Level 1.5 MG/DL 2.3 MG/DL 2.5 MG/DL Magnesium Level 1.9 MG/DL 2.1 MG/DL Sodium Level 149 MEQ/L 150 MEQ/L Potassium Level 3.3 MEQ/L 3.9 MEQ/L 4.1 MEQ/L Chloride Level 112 MEQ/L 114 MEQ/L Carbon Dioxide Level 32.3 MEQ/L 30.5 MEQ/L Anion Gap 5 MEQ/L 6 MEQ/L Estimat Glomerular Filtration Rate 74 ML/MIN 79 ML/MIN Protein Corrected Calcium 8.4 MG/DL 8.5 MG/DL Microbiology Date/Time Source Procedure Growth Status 08/21/17 16:33 Blood Peripheral Aerobic Blood Culture Pending Received 08/21/17 16:33 Blood Peripheral Anaerobic Blood Culture Pending Received 08/21/17 13:45 Blood Peripheral Aerobic Blood Culture Pending Received 08/21/17 13:45 Blood Peripheral Anaerobic Blood Culture Pending Received 08/21/17 15:20 Sputum Endotracheal Gram Stain - Final Resulted 08/21/17 15:20 Sputum Endotracheal Sputum Culture Pending Resulted 08/21/17 13:45 Urine Catheterized Urine Urine Culture Pending Received Imaging Last Impressions Abdomen X-Ray 08/21/17 0600 Signed Impressions: Service Date/Time: July 03:35 - CONCLUSION: The bowel gas pattern remains fairly unremarkable. Jl Stanley MD Chest X-Ray 08/21/17 0000 Signed Impressions: Service Date/Time: July 19:39 - CONCLUSION: 1. Stable tubes and lines, as above. 2. Worsening bilateral lower lung zone pleural parenchymal disease. Douglas Jean MD Lumbar Puncture Fluoroscopy 08/15/17 0000 Signed Impressions: Service Date/Time: Tuesday, August 15, 2017 15:36 - CONCLUSION: 1. Uncomplicated fluoroscopically guided lumbar puncture. 2. Please note, requested opening pressures were not obtained due to technical difficulties. Shashi Moreno MD Brain MRI 08/15/17 0000 Signed Impressions: Service Date/Time: Tuesday, August 15, 2017 16:57 - CONCLUSION: 1. 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 2. Mild stenosis in the upper cervical spine as above. Esau Martell MD Abdomen/Pelvis CT 08/15/17 0000 Signed Impressions: Service Date/Time: Wednesday, August 16, 2017 00:25 - CONCLUSION: 1. Abnormal thickening of the descending colonic wall and the possibility of colitis should be entertained. There is also thickening of distal ileal wall which may be inflammatory as well. 2. There is mild anasarca with edema or inflammatory changes within the bilateral paracolic gutters extending down into the pelvis. 3. Small bilateral pleural effusions and bibasilar atelectasis and/or infiltrate. 4. Prominent ileocecal valve and possibility of lipoma at this site is not excluded. Josseline Villagomez MD Abdomen Ultrasound 08/15/17 0000 Signed Impressions: Service Date/Time: Tuesday, August 15, 2017 10:40 - CONCLUSION: 1. No abnormality is identified to explain the clinical symptoms. There is no hydronephrosis. 2. The liver is normal in size and echotexture. Adan Machuca MD Head CT [id number] Signed Impressions: Service Date/Time: July 22:54 - CONCLUSION: Unremarkable study. Josseline Villagomez MD Physical Exam GENERAL: Awake, following simple commands, in no apparent distress. SKIN: No rashes, ecchymoses or lesions. Warm and dry. HEAD: Atraumatic. Normocephalic. No temporal or scalp tenderness. EYES: Pupils equal round and reactive. Extraocular motions intact. No scleral icterus. No injection or drainage. Has mild scleral edema ENT: Intubated. Moist oral mucosa, no nasal drainage NECK: Trachea midline. Supple, nontender, CARDIOVASCULAR: + murmur, no gallops, rub RESPIRATORY: Bilateral rhonchi GASTROINTESTINAL: Abdomen distended, not tender, hypoactive bowels sounds, no guarding or rebound. MUSCULOSKELETAL: Extremities without clubbing, cyanosis. Has edema hands. No calf tenderness. Negative Homans sign bilaterally. NEUROLOGICAL: Opens eyes spontaneously, moves all 4 extremities. Psych: Cooperative IV line sites with no e.o infection. Assessment & Plan Remarks Assessment and Plan New fevers, source? 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 Alcohol abuse: at risk for withdrawal. Acute rhabdomyolysis: ? seizures. Acute renal failure: sepsis, prerenal, rhabdomyolysis. Colitis clinically and radiologically ; likely ischemic - C diff negative Recs: Continue Cefepime (possible HCAP) Continue Flagyl Continue Vanco (MRSA coverage possible HCAP) Add Micafungin, antifungal (Has been in hospital, antifungal coverage) Get BC from line Follow new C/S Follow temps Follow CBC Monitor progress Weaning per CCM D/W RN Spoke with daughter at bedside - updated on current work-up and treatment Ileana Monique MD Aug 22, 2017 10:08
[2017-08-22] MEDS: ACETAMINOPHEN 325 MG TAB PO PRN ×2 (10:16→18:07)
--- NOTE | 2017-08-22 10:18 | HHI.CCPN ---
Subjective Remarks/Hospital Course Patient is an 82-year-old female with past medical history of irritable bowel syndrome, hypertension, arthritis, diverticulitis who presented to the [facility] ED after she was found lying on her bed with urine and feces all around her bed. In addition, the patient was altered and obtunded. Most of the history was obtained from reviewing the medical records. Her laboratory data showed acute renal failure with BUN of 52, creatinine 3.39 and lactic acidosis with a lactic acid level of 6.3. In addition, the patient was in rhabdomyolysis with elevated CK at 3855. She was admitted under the hospitalist service; however, a [facility] was called due to worsening mental status, hypertension and hypoxemia. She was transferred to [facility] and critical care medicine was consulted for critical care management. When seen, the patient was lethargic, not following any commands, hypotensive. She was subsequently intubated by myself and a right internal jugular central line was placed for hemodynamic monitoring. ABG post intubation showed a pH of 7.31, co2 of 30, pA02 of 117, bicarbonate 15 and saturation of 96% on PRVC rate of 14, tidal volume 350 with IT:1, PEEP 5 and FIO2 of 100%. She was given two liter boluses of normal saline and placed on a bicarbonate drip. Her lactic acid level is trending down and is currently 3.4 from 6.3 on arrival. In addition, her renal function is improving with IV hydration. Her creatinine level is 2.29 from 3.39. Due to hypotension, Levophed was started. A CT scan of the brain in the emergency department was unremarkable. Her initial chest x-ray showed minimal basilar atelectasis, no effusions or pneumothoraces. According to the patient's family, the patient has been intermittently binge drinking. In addition, they report her having diarrhea for a few days. She had a low-grade fever with a temperature of 100.2 last night. 08/16 Patient is sedated with Fentanyl drip intubated and on Levophed 5 mics. On Bicarb drip. MRI brain yesterday showed small lacunar infarcts in left cerebellar hemisphere and right parietal lobe. Lp showed clear CSF, 17 wbc. Afebrile.Renal function worse today with Cr: 2.64 from 2.29 08/17 Patient remains sedated and intubated. On Bicarb drip. Off Levophed renal function slightly worse today with Cr: 2.82 from 2.64 and UOP: 550 ml in 24 hrs 08/18 Patient bit through ETT overnight s/p new ETT placement using tube exchanger. Sedated with Diprivan and Fentanyl. Afebrile. Renal function is improving with Cr: 1.97 from 2.82. On Bicarb drip. Tube feeds held for possible colonoscopy today. 08/19: Remains sedated, orally intubated on mechanical ventilation. Colonoscopy done yesterday revealed ischemic colitis. Has been evaluated by general surgery. Patient went into A. fib with RVR last night and was started on a Cardizem drip. On Levophed for hypotension 08/20: Remains sedated, orally intubated on mechanical ventilation. Started on TPN on 08/19. Cardizem drip turned off this morning. Received 1 dose of digoxin yesterday. 08/21: Remains sedated, orally intubated on mechanical ventilation. On TPN. Ordered Precedex as well as digoxin daily. Starting trophic feeds today. 08/22 Patient remains intubated on Precedex and Fentanyl infusion for sedation. afebrile. Objective Vital Signs Date Time Temp Pulse Resp B/P (MAP) Pulse Ox O2 Delivery O2 Flow Rate FiO2 08/22/17 09:46 105 145/75 08/22/17 08:01 50 08/22/17 08:00 96 08/22/17 04:00 99.3 16 Intake and Output 08/22/17 08/22/17 08/23/17 08:00 16:00 00:00 Intake Total 1646 ml Output Total 750 ml Balance 896 ml Result Diagram: 08/22/17 0420 08/22/17 0420 Other Results Laboratory Tests Test 08/21/17 13:45 08/21/17 21:10 08/21/17 21:15 08/22/17 04:20 Urine Color YELLOW Urine Turbidity CLEAR Urine pH 6.0 Urine Specific [place] 1.028 Urine Protein 30 mg/dL Urine Glucose (UA) 300 mg/dL Urine Ketones NEG mg/dL Urine Occult Blood TRACE Urine Nitrite NEG Urine Bilirubin NEG Urine Urobilinogen LESS THAN 2.0 MG/DL Urine Leukocyte Esterase SMALL Urine RBC 3 /hpf Urine WBC 4 /hpf Urine Squamous Epithelial Cells 1 /hpf Urine Bacteria RARE /hpf Urine Mucus FEW /lpf Microscopic Urinalysis Comment CATH-CULTURE IND Stool C. difficile Toxin (PCR) NEGATIVE Stl C. difficile Toxin Epiderm 027 PRESUMPTIVE NEGATIVE Potassium Level 3.9 MEQ/L 4.1 MEQ/L Phosphorus Level 2.3 MG/DL 2.5 MG/DL White Blood Count 14.6 TH/MM3 Red Blood Count 3.07 MIL/MM3 Hemoglobin 9.7 GM/DL Hematocrit 29.0 % Mean Corpuscular Volume 94.4 FL Mean Corpuscular Hemoglobin 31.6 PG Mean Corpuscular Hemoglobin Concent 33.5 % Red Cell Distribution Width 14.1 % Platelet Count 258 TH/MM3 Mean Platelet Volume 7.6 FL Neutrophils (%) (Auto) 81.6 % Lymphocytes (%) (Auto) 9.3 % Monocytes (%) (Auto) 8.9 % Eosinophils (%) (Auto) 0.1 % Basophils (%) (Auto) 0.1 % Neutrophils # (Auto) 11.9 TH/MM3 Lymphocytes # (Auto) 1.4 TH/MM3 Monocytes # (Auto) 1.3 TH/MM3 Eosinophils # (Auto) 0.0 TH/MM3 Basophils # (Auto) 0.0 TH/MM3 CBC Comment AUTO DIFF Differential Total Cells Counted 100 Neutrophils % (Manual) 87 % Lymphocytes % 7 % Monocytes % 5 % Neutrophils # (Manual) 12.8 TH/MM3 Myelocytes 1 % Differential Comment FINAL DIFF MANUAL Platelet Estimate NORMAL Platelet Morphology Comment NORMAL Blood Urea Nitrogen 30 MG/DL Creatinine 0.71 MG/DL Random Glucose 127 MG/DL Total Protein 5.2 GM/DL Calcium Level 7.4 MG/DL Magnesium Level 2.1 MG/DL Sodium Level 150 MEQ/L Chloride Level 114 MEQ/L Carbon Dioxide Level 30.5 MEQ/L Anion Gap 6 MEQ/L Estimat Glomerular Filtration Rate 79 ML/MIN Protein Corrected Calcium 8.5 MG/DL Imaging Last Impressions Abdomen X-Ray 08/21/17 0600 Signed Impressions: Service Date/Time: July 03:35 - CONCLUSION: The bowel gas pattern remains fairly unremarkable. Jl Stanley MD Chest X-Ray 08/21/17 0000 Signed Impressions: Service Date/Time: July 19:39 - CONCLUSION: 1. Stable tubes and lines, as above. 2. Worsening bilateral lower lung zone pleural parenchymal disease. Douglas Jean MD Lumbar Puncture Fluoroscopy 08/15/17 0000 Signed Impressions: Service Date/Time: Tuesday, August 15, 2017 15:36 - CONCLUSION: 1. Uncomplicated fluoroscopically guided lumbar puncture. 2. Please note, requested opening pressures were not obtained due to technical difficulties. Shashi Moreno MD Brain MRI 08/15/17 0000 Signed Impressions: Service Date/Time: Tuesday, August 15, 2017 16:57 - CONCLUSION: 1. 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 2. Mild stenosis in the upper cervical spine as above. Esau Martell MD Abdomen/Pelvis CT 08/15/17 0000 Signed Impressions: Service Date/Time: Wednesday, August 16, 2017 00:25 - CONCLUSION: 1. Abnormal thickening of the descending colonic wall and the possibility of colitis should be entertained. There is also thickening of distal ileal wall which may be inflammatory as well. 2. There is mild anasarca with edema or inflammatory changes within the bilateral paracolic gutters extending down into the pelvis. 3. Small bilateral pleural effusions and bibasilar atelectasis and/or infiltrate. 4. Prominent ileocecal valve and possibility of lipoma at this site is not excluded. Josseline Villagomez MD Abdomen Ultrasound 08/15/17 0000 Signed Impressions: Service Date/Time: Tuesday, August 15, 2017 10:40 - CONCLUSION: 1. No abnormality is identified to explain the clinical symptoms. There is no hydronephrosis. 2. The liver is normal in size and echotexture. Adan Machuca MD Head CT [id number] Signed Impressions: Service Date/Time: July 22:54 - CONCLUSION: Unremarkable study. Josseline Villagomez MD Objective Remarks GENERAL: Patient is 82 yo critically ill intubated and sedated SKIN: Warm and dry. HEAD: Normocephalic. EYES: No scleral icterus. No injection or drainage. NECK: Supple, trachea midline. No JVD or lymphadenopathy. Orally intubated CARDIOVASCULAR: S1-S2 irregularly irregular, no gallop or murmur. RESPIRATORY: Orally intubated on mechanical ventilation, good air entry bilaterally, no wheezing or crackles. GASTROINTESTINAL: Abdomen soft, non-tender, minimally distended. Bowel sounds sluggish MUSCULOSKELETAL: No cyanosis, trace edema. Neuro: sedated, intubated A/P Assessment and Plan 1. VDRF 2. Encephalopathy. 3. Small lacunar infarcts 4. Lactic acidemia. 5. Acute kidney injury. 6. Rhabdomyolysis. 7. Diarrhea. 8. Elevated AST likely secondary to EtOH use. 9. EtOH abuse. 10. Urinary tract infection. 11. Hypotension 12. Ischemic colitis 13. A. fib with RVR Plan Neuro: On fentanyl, Precedex infusion for sedation. Daily sedation vacation. Monitor neuro status. 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 Repeat EEG ordered for 08/21.- generalized slowing, no epileptiform features Neuro is following- Dr. Danielle LP showed clear CSF, 17 WBC, TP:45.2 Pulm: Continue with vent support and maintain sats> 92%. Bronchodilators, ICU vent bundle. SBT as ligia s/p new ETT placement on 08/18 using tube exchanger ( patient bit thru ETT) CV: Monitor HR and BP keep MAP>65mmHg. On Digoxin 0.125 mg daily, check Dig level Troponin is trending down. Echo showed EF 45-50% Taper steroids- Decrease hydrocortisone 25mg IV daily :Monitor renal function, intake and output and avoid nephrotoxins. Renal function gradually improving. d/c IVF and diurese with Lasix 40mg IV x1 for fluid overload Renal is following-Dr. Figueroa, abdomen: No hydronephrosis Add free water 250ml Q8 monitor sodium level. GI: On Pepcid for GI prophylaxis. Monitor LFT's( trending down) US liver: No abnormalities identified tube feeds-on tube feeds with Glucerna for trophic feeds at 20 cc/h GI is following- colonoscopy done today showed diffuse colitis in the sigmoid colon and descending colon; Necrotic, dusky appearing mucosa. Consistent with severe ischemic. discussed with Dr. Sims, General surgery-plan to treat conservatively unless patient worsens clinically. ID: Abx per ID (Cefepime, Flagyl, Vanco, Micafungin added today) monitor for signs of infection(fever and WBCs). Pancultured 08/21 follow up on blood, sputum and urine cxs s/p LP showed clear CSF, 17 WBC, TP:45.2, follow up on cultures, HSV DNA PCR CT abdomen/pelvis: thickening of the descending colonic wall and the possibility of colitis should be entertained. There is also thickening of distal ileal wall which may be inflammatory as well. C-diff PCR is negative, stool studies negative Endo: SSI medium with Accu-Chek for glycemic control. TSH: 1.15. Heme: Monitor CBC. GI prophylaxis with Pepcid and DVT prophylaxis with SCDs, Heparin SQ Lines: Right IJ Central line, Right radial Art line placed 08/15 Dr. Corea discussed possible need for tracheostomy and PEG tube if patient needs more time to recover. Daughter is agreeable with that plan. Palliative care following to assist with deciding goals of therapy CCT 30 mins excluding procedures Don Youngblood MD Aug 22, 2017 10:18
[2017-08-22] MEDS ORDERED: VANCOMYCIN INJ 1,000 MG in SODIUM CHLOR 0.9% 250 ML INJ 250 ML IV ONE (11:00)
[2017-08-22] MEDS ORDERED: FUROSEMIDE 40 MG/4 ML VIAL IV PUSH ONE (11:00)
[2017-08-22] MEDS: FAMOTIDINE 20 MG/2 ML VIAL IV PUSH SCH (11:40)
[2017-08-22] MEDS: MICAFUNGIN INJ 100 MG in SODIUM CHLORIDE 0.9% INJ 100 ML IV SCH (11:41)
[2017-08-22] MEDS: FREE WATER G-TUBE SCH ×2 (14:00→22:00)
--- NOTE | 2017-08-22 14:57 | HHI.PR ---
cc: Rolo Guadalupe MD Subjective Subjective Notes on CPAP trial Daughter at bedside Patient nods her had no when asked about abdominal pain Objective Vitals/I&O Vital Signs Date Time Temp Pulse Resp B/P (MAP) Pulse Ox O2 Delivery O2 Flow Rate FiO2 08/22/17 11:32 98 50 08/22/17 10:30 101 08/22/17 10:30 15 135/62 (86) 08/22/17 10:00 102.7 Labs Laboratory Tests Test 08/21/17 21:10 08/21/17 21:15 08/22/17 04:20 Stool C. difficile Toxin (PCR) NEGATIVE Stl C. difficile Toxin Epiderm 027 PRESUMPTIVE NEGATIVE Potassium Level 3.9 4.1 Phosphorus Level 2.3 2.5 White Blood Count 14.6 Red Blood Count 3.07 Hemoglobin 9.7 Hematocrit 29.0 Mean Corpuscular Volume 94.4 Mean Corpuscular Hemoglobin 31.6 Mean Corpuscular Hemoglobin Concent 33.5 Red Cell Distribution Width 14.1 Platelet Count 258 Mean Platelet Volume 7.6 Neutrophils (%) (Auto) 81.6 Lymphocytes (%) (Auto) 9.3 Monocytes (%) (Auto) 8.9 Eosinophils (%) (Auto) 0.1 Basophils (%) (Auto) 0.1 Neutrophils # (Auto) 11.9 Lymphocytes # (Auto) 1.4 Monocytes # (Auto) 1.3 Eosinophils # (Auto) 0.0 Basophils # (Auto) 0.0 CBC Comment AUTO DIFF Differential Total Cells Counted 100 Neutrophils % (Manual) 87 Lymphocytes % 7 Monocytes % 5 Neutrophils # (Manual) 12.8 Myelocytes 1 Differential Comment FINAL DIFF MANUAL Platelet Estimate NORMAL Platelet Morphology Comment NORMAL Blood Urea Nitrogen 30 Creatinine 0.71 Random Glucose 127 Total Protein 5.2 Calcium Level 7.4 Magnesium Level 2.1 Sodium Level 150 Chloride Level 114 Carbon Dioxide Level 30.5 Anion Gap 6 Estimat Glomerular Filtration Rate 79 Protein Corrected Calcium 8.5 Date/Time Source Procedure Growth Status 08/21/17 16:33 Blood Peripheral Aerobic Blood Culture - Preliminary NO GROWTH IN 1 DAY Resulted 08/21/17 16:33 Blood Peripheral Anaerobic Blood Culture - Preliminary NO GROWTH IN 1 DAY Resulted 08/15/17 15:56 Cerebral Spinal Fluid Lumbar Puncture Gram Stain - Final Complete 08/15/17 15:56 Cerebral Spinal Fluid Lumbar Puncture CSF Culture - Final NO GROWTH IN 72 HOURS Complete 08/15/17 02:28 Stool Stool Cryptosporidium Exam Pending Ordered 08/15/17 02:28 Stool Stool Giardia Antigen (MARCIA) Pending Ordered 08/21/17 15:20 Sputum Endotracheal Gram Stain - Final Resulted 08/21/17 15:20 Sputum Endotracheal Sputum Culture - Preliminary NO GROWTH IN 24 HOURS. Resulted 08/21/17 13:45 Urine Catheterized Urine Urine Culture - Preliminary NO GROWTH IN 24 HOURS. Resulted Cardiovascular: Regular Lungs: Clear Abdomen: Non-distended, Non-tender Extremities: No edema Narrative Exam rectal tube in place A/P Assessment and Plan 82 year old female with ischemic colitis -WBC increased; continue to monitor; febrile today -Continue TPN -Tolerating trickle feeds -Vent per CCM; on CPAP -Continue neuro workup -Continue medical management at this time -Discussed with patient's daughter at bedside -General Surgery will see peripherally over the weekend Attending Statement The exam, history, and the medical decision-making described in the above note were completed with the assistance of the mid-level provider. I reviewed and agree with the findings presented. I attest that I had a [id number] encounter with the patient on the same day, and personally performed and documented my assessment and findings in the medical record. abdominal exam stable, non-tender, no peritonitis, decreased BS no signs of perforation, no surgery recommended will follow Yumiko Flores/[employer] TRACY Aug 22, 2017 14:57 Rolo Guadalupe MD Aug 29, 2017 12:44
--- NOTE | 2017-08-22 18:34 | HHI.PR ---
Review/Management Diagnosis several small strokes on MRI--probably embolic metabolic encephalopathy--neurologically improving Diagnosis/Plan: Subjective Subjective Comments No acute events reported pt has been more alert Active Medications Current Medications Medications (Trade) Dose Ordered Sig/Al Route Start Time Stop Time Status Last Admin (NS Flush) 2 ml UNSCH PRN IV FLUSH 08/15/17 02:00 08/21/17 11:15 (NS Flush) 2 ml BID IV FLUSH 08/15/17 09:00 08/22/17 09:45 (Narcan Inj) 0.4 mg UNSCH PRN IV PUSH 08/15/17 02:00 Metronidazole 100 ml @ 100 mls/hr Q6H IV 08/15/17 08:00 08/22/17 14:58 Miscellaneous Information Patient in critical care unit? Ass... [id number] .XX 08/15/17 06:15 08/15/17 06:15 (Romazicon Inj) 0.2 mg Q1M PRN IV PUSH 08/15/17 06:30 (Atrovent Neb) 0.5 mg Q2HR NEB PRN NEB 08/15/17 06:30 08/18/17 08:25 Fentanyl Citrate 250 ml @ 5 mls/hr TITRATE PRN IV 08/15/17 07:30 08/22/17 00:33 (Brethine Inj) 1 mg UNSCH PRN SQ 08/15/17 09:00 (Vitamin B1) 100 mg DAILY PO 08/15/17 12:00 08/22/17 09:44 (Theragran) 1 tab DAILY PO 08/15/17 12:00 08/22/17 09:44 (Folate) 1 mg DAILY PO 08/15/17 12:00 08/22/17 09:44 (Pepcid Inj) 10 mg Q12H IV PUSH 08/15/17 12:00 08/22/17 11:40 (Aspirin Chew) 81 mg DAILY OG-TUBE 08/15/17 19:00 08/22/17 09:44 (D50w (Vial) Inj) 50 ml UNSCH PRN IV PUSH 08/16/17 08:00 (Glucagon Inj) 1 mg UNSCH PRN OTHER 08/16/17 08:00 (NovoLIN R SUPPLEMENTAL SCALE) 1 Q4HR SQ 08/16/17 08:00 08/21/17 00:09 (Lopressor) 25 mg Q12HR PO 08/17/17 09:00 Future Hold 08/19/17 08:46 (Heparin Inj) 5,000 units Q12HR SQ 08/17/17 09:00 08/22/17 09:45 Propofol 100 ml @ 2.19 mls/hr TITRATE PRN IV 08/17/17 18:30 08/21/17 10:24 Diltiazem HCl 125 mg/Sodium Chloride 125 ml @ 5 mls/hr TITRATE PRN IV 08/18/17 20:15 08/20/17 14:08 Phenylephrine HCl 40 mg/Dextrose 500 ml @ 30 mls/hr TITRATE PRN IV 08/19/17 10:30 08/20/17 00:09 (Brethine Inj) 1 mg UNSCH PRN SQ 08/19/17 10:30 Fat Emulsion Intravenous 250 ml @ 31.25 mls/ hr Q24H IV-CENTRAL 08/19/17 20:00 08/20/17 20:10 Vasopressin 40 units/Dextrose 100 ml @ 6 mls/hr [id number] IV 08/19/17 15:30 Sodium Chloride 5.5 meq/Sodium Acetate 29.5 meq/ Potassium Chloride 20 meq/ Magnesium Chloride 5 meq/ Calcium Chloride 4.5 meq/ Multivitamins 10 ml/Folic Acid 1 mg/Insulin Human Regular 20 units/ Amino Acids/ Dextrose 1,042.3719 ml @ 42 mls/hr Q24H IV-CENTRAL 08/20/17 20:00 08/20/17 20:10 (Lanoxin Inj) 0.125 mg DAILY IV PUSH 08/21/17 09:00 08/22/17 09:45 (Tylenol) 650 mg Q4H PRN PO 08/21/17 14:15 08/22/17 18:07 Dexmedetomidine HCl 1000 mcg/ Sodium Chloride 250 ml @ 4.05 mls/hr TITRATE PRN IV 08/21/17 15:15 08/22/17 14:58 (Trandate Inj) 20 mg Q4H PRN IV PUSH 08/21/17 17:15 08/21/17 21:51 Cefepime HCl 2000 mg/Sodium Chloride 100 ml @ 200 mls/hr Q8H IV 08/21/17 18:00 08/22/17 18:13 Pharmacy Profile Note 0 ml @ 0 mls/hr UNSCH OTHER 08/22/17 10:00 Micafungin Sodium 100 mg/Sodium Chloride 100 ml @ 100 mls/hr Q24H IV 08/22/17 11:00 08/22/17 11:41 (SoluCORTEF INJ) 25 mg DAILY IV PUSH 08/23/17 09:00 (Free Water) 250 ml Q8HR G-TUBE 08/22/17 14:00 08/22/17 14:00 Vancomycin HCl 1250 mg/Sodium Chloride 262.5 ml @ 250 mls/hr Q24H IV 08/23/17 09:00 Miscellaneous Information SPECIFIC LAB TO BE DARLENE... ONCE ONCE .XX 08/25/17 08:45 08/25/17 08:46 Allergies Allergies Coded Allergies No Known Allergies (Verified Allergy, Unknown, 08/15/17) Exam I&O / VS 08/22/17 08/22/17 08/23/17 15:00 23:00 07:00 Intake Total 1018 ml Balance 1018 ml Intake IV Total 1018 ml Vital Signs Date Time Temp Pulse Resp B/P (MAP) Pulse Ox O2 Delivery O2 Flow Rate FiO2 08/22/17 16:50 97 50 08/22/17 11:32 98 50 08/22/17 10:30 101 08/22/17 10:30 101 15 135/62 (86) 96 08/22/17 10:00 107 08/22/17 10:00 102.7 107 15 147/70 (95) 95 08/22/17 09:46 105 145/75 08/22/17 09:30 104 13 145/75 (98) 96 08/22/17 09:30 104 08/22/17 09:00 100 13 135/70 (91) 96 08/22/17 09:00 100 08/22/17 08:30 110 15 128/67 (87) 95 08/22/17 08:30 110 08/22/17 08:01 50 08/22/17 08:00 93 24 140/69 (92) 93 08/22/17 08:00 96 50 08/22/17 08:00 93 08/22/17 08:00 50 08/22/17 07:30 99 18 142/75 (97) 95 08/22/17 07:30 99 08/22/17 07:00 100 08/22/17 07:00 100 15 143/83 (103) 95 08/22/17 06:00 96 08/22/17 04:12 95 50 08/22/17 04:00 50 08/22/17 04:00 99.3 94 16 137/69 (91) 96 08/22/17 04:00 94 08/22/17 02:00 97 08/22/17 00:00 94 08/22/17 00:00 100.4 94 18 142/77 (98) 96 08/22/17 00:00 50 08/21/17 23:54 16 08/21/17 23:25 97 50 08/21/17 22:53 101.1 08/21/17 22:00 97 08/21/17 20:39 96 50 08/21/17 20:00 50 08/21/17 20:00 100.2 98 17 205/110 (141) 94 08/21/17 20:00 98 Exam Comments Pt is more alert and is following simple commands pupils 2 mm eomI MOTOR--moving BUE spontaneously Objective Micro and Labs Laboratory Tests Test 08/21/17 21:10 08/21/17 21:15 08/22/17 04:20 08/22/17 18:00 Stool C. difficile Toxin (PCR) NEGATIVE Stl C. difficile Toxin Epiderm 027 PRESUMPTIVE NEGATIVE Potassium Level 3.9 4.1 Phosphorus Level 2.3 2.5 White Blood Count 14.6 Red Blood Count 3.07 Hemoglobin 9.7 Hematocrit 29.0 Mean Corpuscular Volume 94.4 Mean Corpuscular Hemoglobin 31.6 Mean Corpuscular Hemoglobin Concent 33.5 Red Cell Distribution Width 14.1 Platelet Count 258 Mean Platelet Volume 7.6 Neutrophils (%) (Auto) 81.6 Lymphocytes (%) (Auto) 9.3 Monocytes (%) (Auto) 8.9 Eosinophils (%) (Auto) 0.1 Basophils (%) (Auto) 0.1 Neutrophils # (Auto) 11.9 Lymphocytes # (Auto) 1.4 Monocytes # (Auto) 1.3 Eosinophils # (Auto) 0.0 Basophils # (Auto) 0.0 CBC Comment AUTO DIFF Differential Total Cells Counted 100 Neutrophils % (Manual) 87 Lymphocytes % 7 Monocytes % 5 Neutrophils # (Manual) 12.8 Myelocytes 1 Differential Comment FINAL DIFF MANUAL Platelet Estimate NORMAL Platelet Morphology Comment NORMAL Blood Urea Nitrogen 30 Creatinine 0.71 Random Glucose 127 Total Protein 5.2 Calcium Level 7.4 Magnesium Level 2.1 Sodium Level 150 Chloride Level 114 Carbon Dioxide Level 30.5 Anion Gap 6 Estimat Glomerular Filtration Rate 79 Protein Corrected Calcium 8.5 Date/Time Source Procedure Growth Status 08/21/17 16:33 Blood Peripheral Aerobic Blood Culture - Preliminary NO GROWTH IN 1 DAY Resulted 08/21/17 16:33 Blood Peripheral Anaerobic Blood Culture - Preliminary NO GROWTH IN 1 DAY Resulted 08/15/17 15:56 Cerebral Spinal Fluid Lumbar Puncture Gram Stain - Final Complete 08/15/17 15:56 Cerebral Spinal Fluid Lumbar Puncture CSF Culture - Final NO GROWTH IN 72 HOURS Complete 08/15/17 02:28 Stool Stool Cryptosporidium Exam Pending Ordered 08/15/17 02:28 Stool Stool Giardia Antigen (MARCIA) Pending Ordered 08/21/17 15:20 Sputum Endotracheal Gram Stain - Final Resulted 08/21/17 15:20 Sputum Endotracheal Sputum Culture - Preliminary NO GROWTH IN 24 HOURS. Resulted 08/21/17 13:45 Urine Catheterized Urine Urine Culture - Preliminary NO GROWTH IN 24 HOURS. Resulted Kang Danielle MD PhD Aug 22, 2017 18:34
[2017-08-22] MEDS: SODIUM CHLORIDE 23.4% INJ 5.5 MEQ, SODIUM ACETATE INJ 29.5 MEQ, POTASSIUM CHLORIDE INJ ... IV-CENTRAL SCH ×9 (19:37)
[2017-08-22] MEDS: FAT EMULSION 20% INJ 250 ML (Daily over 8 hours) IV-CENTRAL SCH (19:37)
--- NOTE | 2017-08-22 21:39 | MG ---
cc: SHUN DAY MD Lab No: Date: 08/21/17 Age: 82 Sex: F Race: REQUESTING PHYSICIAN Dr. Danielle An EEG was obtained on this 82-year-old patient being evaluated for encephalopathy. The patient is intubated on Precedex. Diprivan and fentanyl turned off for the EEG. The study shows prominent attenuation and there are some delta and some theta rhythms. There is beta activity. Intermittently, there are some theta rhythms as well. Overall, the background appears to be symmetrical. Photic stimulation was unremarkable. INTERPRETATION Abnormal EEG because of severe generalized slowing suggesting a severe diffuse disturbance of cerebral function. No epileptiform features present. Shun Day MD [facility] /8:46 PM /9:33 PM
[2017-08-23] VITALS (25 sets, daily range): BP systolic 123–131; BP diastolic 61–81; PULSE 83–96; RESP 16–24; TEMP 99.4–102.7; O2SAT 90–97
[2017-08-23] MEDS: metroNIDAZOLE 500 MG INJ 100 ML IV SCH ×4 (00:37→19:52)
[2017-08-23] MEDS: FAMOTIDINE 20 MG/2 ML VIAL IV PUSH SCH ×2 (00:41→16:23)
[2017-08-23] MEDS: CEFEPIME INJ 2,000 MG in SODIUM CHLORIDE 0.9% INJ 100 ML IV SCH ×2 (02:24→10:21)
[2017-08-23] MEDS: ACETAMINOPHEN 325 MG TAB PO PRN ×3 (02:24→19:52)
[2017-08-23] MEDS: DEXMEDETOMIDINE INJ 1,000 MCG in SODIUM CHLOR 0.9% 250 ML INJ 240 ML IV PRN ×2 (04:32→12:57)
[2017-08-23] MEDS: FREE WATER G-TUBE SCH ×3 (05:53→22:00)
--- NOTE | 2017-08-23 06:11 | RADRPT ---
EXAM DATE/TIME: 08/23/2017 04:21 [place] COMPARISON: No previous studies available for comparison. INDICATIONS : Shortness of breath, possible pulmonary disease. MEDICAL HISTORY : Hypertension. Diverticulitis. Arthritis. Renal failure SURGICAL HISTORY : Colon resection. Appendectomy. Hysterectomy. ENCOUNTER: Subsequent ACUITY: 1 week PAIN SCORE: Non-responsive. LOCATION: Bilateral chest FINDINGS: Basilar consolidation and small effusions again seen on both sides, not significantly changed. No pne umothorax. Heart size stable, within normal limits. Endotracheal tube tip is 2.7 cm above the carlos. There is a nasogastric tube coursing into the stoma ch. CONCLUSION: No significant change. Adan Nunes MD on August 23, 2017 at 6:09 Board Certified Radiologist. This report was verified electronically.
[2017-08-23] MEDS: INSULIN NovoLIN REGULAR SUPPLEMENTAL SCALE SQ SCH ×5 (08:00→20:00)
[2017-08-23] MEDS: HYDROCORTISONE SOD SUCCINATE 100 MG VIAL IV PUSH SCH (10:22)
[2017-08-23] MEDS: DIGOXIN 0.5 MG/2 ML VIAL IV PUSH SCH (10:23)
[2017-08-23] MEDS: HEPARIN SODIUM - SQ 10,000 UNITS/ML VIAL SQ SCH ×2 (10:24→19:53)
[2017-08-23] MEDS: VANCOMYCIN INJ 1,250 MG in SODIUM CHLOR 0.9% 250 ML INJ 250 ML IV SCH (10:25)
[2017-08-23] MEDS: FOLIC ACID 1 MG TAB PO SCH (10:25)
[2017-08-23] MEDS: SODIUM CHLORIDE 0.9% FLUSH 10 ML FLUSH IV FLUSH SCH ×2 (10:25→20:04)
[2017-08-23] MEDS: THIAMINE HCL 100 MG TAB PO SCH (10:26)
[2017-08-23] MEDS: ASPIRIN 81 MG CHEW TAB OG-TUBE SCH (10:26)
[2017-08-23] MEDS: MULTIVITAMIN TAB PO SCH (10:26)
[2017-08-23 11:35] LABS: AUTOMATED NEUTROPHIL # 15.2 TH/MM3 (1.8-7.7); BASOPHIL # 0.3 TH/MM3 (0-0.2); BASOPHIL % 1.9 % (0.0-2.0); EOSINOPHIL % 0.1 % (0.0-4.0); HEMOGLOBIN 10.9 GM/DL (11.6-15.3); LYMPH % 5.3 % (9.0-44.0); LYMPHOCYTE # 0.9 TH/MM3 (1.0-4.8); MEAN CELL VOLUME 92.9 FL (80.0-100.0); MEAN CORPUSCULAR HEMOGLOBIN 31.6 PG (27.0-34.0); MEAN PLATELET VOLUME 8.6 FL (7.0-11.0); MONO % 6.8 % (0.0-8.0); MONOCYTE # 1.2 TH/MM3 (0-0.9); NEUT % 85.9 % (16.0-70.0); PLATELET COUNT 317 TH/MM3 (150-450); RED BLOOD COUNT 3.45 MIL/MM3 (4.00-5.30); RED CELL DISTRIBUTION WIDTH 13.9 % (11.6-17.2); WHITE BLOOD COUNT 17.7 TH/MM3 (4.0-11.0)
[2017-08-23 11:48] LABS: CALCIUM 7.5 MG/DL (8.5-10.1); CREATININE 0.67 MG/DL (0.50-1.00); PHOSPHORUS 2.4 MG/DL (2.5-4.9)
--- NOTE | 2017-08-23 12:14 | HHI.IDPN ---
Note Infectious Disease Note ID COVERAGE FOR DR Bebeto BRITO Ms. Olson is an 82 year old female with past medical history of hypertension, possible sleep apnea, chronic neck pain, sciatica, alcohol abuse, arthritis, chronic rectal prolapse with bowel incontinence and anxiety. Patients daughter reports she was away for last week (normally she lives with Mom). She checked on her mom each night. The night prior to admission patient and daughter spoke to each other and no reported fever or change in behavior etc noted. No recent bounced checks, change in behavior, fires, falls or doors left unopened or such security concerns. She was found by her daughter lying in bed. On questioning patient was not found vomiting and no seizures. But patient was found in urine and feces. With this background patient presented to [facility] ER on when daughter arrived home to find patient laying on the bed covered in urine and feces. She was obtunded and 911 was called. Upon arrival to the ER: * VS - 100.2, HR 104, RR 18, BP 125/55, O2 sat 95% on room air. * WBC 10.2, hgb 13.8, hct 41.6, platelets 304, neutrophils 91.3% * BUN 52, creatinine 3.39, glucose 177, sodium 141, potassium 5.1, chloride 103 , GFR 13 * Lactic acid 6.3 * TCK 3855, CK-MB 113.6, CK-MB 2.9% * CT head - unremarkable * CXR - minimal basilar atelectasis, no effusion or pneumothorax [facility]. acute renal failure, rhabdomyolysis, lactic acidosis, possible UTI, sepsis. Overnight she developed tachycardia, hypotension and hypoxemia. She was transferred to ICU placed on pressor support. She was started on heparin drip per PE protocol. Leather Splitter was consulted for hypotension, septic shock. On non -rebreather with with oxygen saturation 90% and BP 79/50. Since admission she was intubated and placed [facility]. Infectious disease consulted for evaluation and M'ment of septic shock with meningoencephalitis. Notes reviewed D/W RN Continue to have fever . Awake and alert on the vent. On CPAP. WBC remain elevated. Central line placed 08/15 C diff negative Colonoscopy C/W severe ischemic colitis Antibiotics Current Medications Cefepime Flagyl Vanco x 1 dose 08/21 Lines Line sites with no e.o infections. Allergies: Coded Allergies: No Known Allergies (Verified Allergy, Unknown, 08/15/17) Objective Vital Signs Date Time Temp Pulse Resp B/P (MAP) Pulse Ox O2 Delivery O2 Flow Rate FiO2 08/23/17 09:10 92 50 08/23/17 06:00 92 08/23/17 04:40 96 50 08/23/17 04:00 50 08/23/17 04:00 90 08/23/17 04:00 100.2 90 21 130/69 (89) 92 08/23/17 02:00 92 08/23/17 00:06 94 50 08/23/17 00:00 50 08/23/17 00:00 99.4 91 24 131/78 (95) 95 08/23/17 00:00 91 08/22/17 22:00 96 08/22/17 20:19 96 50 08/22/17 20:00 96 08/22/17 20:00 100.4 96 17 126/64 (84) 97 08/22/17 20:00 50 08/22/17 19:07 20 08/22/17 18:30 50 08/22/17 18:30 98 08/22/17 18:30 101.7 98 18 140/78 (98) 93 08/22/17 18:00 91 08/22/17 18:00 101.7 91 15 140/84 (102) 83 08/22/17 17:30 101.7 98 14 132/79 (96) 91 08/22/17 17:30 98 08/22/17 17:00 101.7 98 12 142/71 (94) 96 08/22/17 17:00 98 08/22/17 16:50 97 50 08/22/17 16:30 101 08/22/17 16:30 101.7 101 14 136/76 (96) 97 08/22/17 16:00 94 08/22/17 16:00 40 08/22/17 16:00 101.6 94 13 135/67 (89) 90 08/22/17 15:30 95 08/22/17 15:30 102.2 95 15 136/70 (92) 95 08/22/17 15:00 99 08/22/17 15:00 99 11 146/65 (92) 97 2/23/18 14:30 91 13 130/71 (90) 96 08/22/17 14:30 91 08/22/17 14:00 95 9 141/71 (94) 97 08/22/17 14:00 95 08/22/17 13:30 99 16 136/63 (87) 93 08/22/17 13:30 99 08/22/17 13:00 95 13 127/70 (89) 96 08/22/17 13:00 95 08/22/17 12:30 98 13 129/68 (88) 96 08/22/17 12:30 98 Laboratory Tests Test 08/22/17 18:00 08/23/17 10:59 Digoxin Level 1.4 NG/ML White Blood Count 17.7 TH/MM3 Red Blood Count 3.45 MIL/MM3 Hemoglobin 10.9 GM/DL Hematocrit 32.0 % Mean Corpuscular Volume 92.9 FL Mean Corpuscular Hemoglobin 31.6 PG Mean Corpuscular Hemoglobin Concent 34.0 % Red Cell Distribution Width 13.9 % Platelet Count 317 TH/MM3 Mean Platelet Volume 8.6 FL Neutrophils (%) (Auto) 85.9 % Lymphocytes (%) (Auto) 5.3 % Monocytes (%) (Auto) 6.8 % Eosinophils (%) (Auto) 0.1 % Basophils (%) (Auto) 1.9 % Neutrophils # (Auto) 15.2 TH/MM3 Lymphocytes # (Auto) 0.9 TH/MM3 Monocytes # (Auto) 1.2 TH/MM3 Eosinophils # (Auto) 0.0 TH/MM3 Basophils # (Auto) 0.3 TH/MM3 CBC Comment AUTO DIFF Blood Urea Nitrogen 28 MG/DL Creatinine 0.67 MG/DL Random Glucose 123 MG/DL Calcium Level 7.5 MG/DL Phosphorus Level 2.4 MG/DL Magnesium Level 2.0 MG/DL Sodium Level 148 MEQ/L Potassium Level 3.8 MEQ/L Chloride Level 112 MEQ/L Carbon Dioxide Level 29.0 MEQ/L Anion Gap 7 MEQ/L Estimat Glomerular Filtration Rate 84 ML/MIN Imaging Abdomen X-Ray 08/21/17 0600 Signed Impressions: Service Date/Time: July 03:35 - CONCLUSION: The bowel gas pattern remains fairly unremarkable. Jl Stanley MD Chest X-Ray 08/21/17 0000 Signed Impressions: Service Date/Time: July 19:39 - CONCLUSION: 1. Stable tubes and lines, as above. 2. Worsening bilateral lower lung zone pleural parenchymal disease. Douglas Jean MD Lumbar Puncture Fluoroscopy 08/15/17 0000 Signed Impressions: Service Date/Time: Tuesday, August 15, 2017 15:36 - CONCLUSION: 1. Uncomplicated fluoroscopically guided lumbar puncture. 2. Please note, requested opening pressures were not obtained due to technical difficulties. Shashi Moreno MD Brain MRI 08/15/17 0000 Signed Impressions: Service Date/Time: Tuesday, August 15, 2017 16:57 - CONCLUSION: 1. 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 2. Mild stenosis in the upper cervical spine as above. Esau Martell MD Abdomen/Pelvis CT 08/15/17 0000 Signed Impressions: Service Date/Time: Wednesday, August 16, 2017 00:25 - CONCLUSION: 1. Abnormal thickening of the descending colonic wall and the possibility of colitis should be entertained. There is also thickening of distal ileal wall which may be inflammatory as well. 2. There is mild anasarca with edema or inflammatory changes within the bilateral paracolic gutters extending down into the pelvis. 3. Small bilateral pleural effusions and bibasilar atelectasis and/or infiltrate. 4. Prominent ileocecal valve and possibility of lipoma at this site is not excluded. Josseline Villagomez MD Abdomen Ultrasound 08/15/17 0000 Signed Impressions: Service Date/Time: Tuesday, August 15, 2017 10:40 - CONCLUSION: 1. No abnormality is identified to explain the clinical symptoms. There is no hydronephrosis. 2. The liver is normal in size and echotexture. Adan Machuca MD Head CT 08/14/[id number] Signed Impressions: Service Date/Time: July 22:54 - CONCLUSION: Unremarkable study. Josseline Villagomez MD Physical Exam GENERAL: Patient is in no acute distress. HEENT: EOMI. MALICK. No icterus. NECK: Supple. No swelling. LUNGS: Clear breath sounds. CARDIAC: Regular rate and rhythm. ABDOMEN: Soft, non tender. (+) BS. EXTREMITIES: Diffuse edema. SKIN: No rash. NEURO: non focal. PSYCH: calm, Cooperative. GENERAL: Awake, following simple commands, in no apparent distress. SKIN: No rashes, ecchymoses or lesions. Warm and dry. HEAD: Atraumatic. Normocephalic. No temporal or scalp tenderness. EYES: Pupils equal round and reactive. Extraocular motions intact. No scleral icterus. No injection or drainage. Has mild scleral edema ENT: Intubated. Moist oral mucosa, no nasal drainage NECK: Trachea midline. Supple, nontender, CARDIOVASCULAR: + murmur, no gallops, rub RESPIRATORY: Bilateral rhonchi GASTROINTESTINAL: Abdomen distended, not tender, hypoactive bowels sounds, no guarding or rebound. MUSCULOSKELETAL: Extremities without clubbing, cyanosis. Has edema hands. No calf tenderness. Negative Homans sign bilaterally. NEUROLOGICAL: Opens eyes spontaneously, moves all 4 extremities. Psych: Cooperative IV line sites with no e.o infection. Assessment and Plan Fevers, source? Septic Shock. 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 Alcohol abuse: at risk for withdrawal. Acute rhabdomyolysis: ? seizures. Acute renal failure: sepsis, prerenal, rhabdomyolysis. Colitis clinically and radiologically ; likely ischemic - C diff negative Recs: Continue Cefepime (possible HCAP) Continue Flagyl Continue Vanco (MRSA coverage possible HCAP) Continue Micafungin, antifungal (Has been in hospital, antifungal coverage) Follow blood cultures Follow new C/S Follow temps Follow CBC Monitor progress Weaning per [facility] Trey Davis MD Aug 23, 2017 12:14
--- NOTE | 2017-08-23 12:49 | HHI.CCPN ---
Subjective Remarks/Hospital Course Patient is an 82-year-old female with past medical history of irritable bowel syndrome, hypertension, arthritis, diverticulitis who presented to the [facility] ED after she was found lying on her bed with urine and feces all around her bed. In addition, the patient was altered and obtunded. Most of the history was obtained from reviewing the medical records. Her laboratory data showed acute renal failure with BUN of 52, creatinine 3.39 and lactic acidosis with a lactic acid level of 6.3. In addition, the patient was in rhabdomyolysis with elevated CK at 3855. She was admitted under the hospitalist service; however, a [facility] was called due to worsening mental status, hypertension and hypoxemia. She was transferred to [facility] and critical care medicine was consulted for critical care management. When seen, the patient was lethargic, not following any commands, hypotensive. She was subsequently intubated by myself and a right internal jugular central line was placed for hemodynamic monitoring. ABG post intubation showed a pH of 7.31, co2 of 30, pA02 of 117, bicarbonate 15 and saturation of 96% on PRVC rate of 14, tidal volume 350 with IT:1, PEEP 5 and FIO2 of 100%. She was given two liter boluses of normal saline and placed on a bicarbonate drip. Her lactic acid level is trending down and is currently 3.4 from 6.3 on arrival. In addition, her renal function is improving with IV hydration. Her creatinine level is 2.29 from 3.39. Due to hypotension, Levophed was started. A CT scan of the brain in the emergency department was unremarkable. Her initial chest x-ray showed minimal basilar atelectasis, no effusions or pneumothoraces. According to the patient's family, the patient has been intermittently binge drinking. In addition, they report her having diarrhea for a few days. She had a low-grade fever with a temperature of 100.2 last night. 08/16 Patient is sedated with Fentanyl drip intubated and on Levophed 5 mics. On Bicarb drip. MRI brain yesterday showed small lacunar infarcts in left cerebellar hemisphere and right parietal lobe. Lp showed clear CSF, 17 wbc. Afebrile.Renal function worse today with Cr: 2.64 from 2.29 08/17 Patient remains sedated and intubated. On Bicarb drip. Off Levophed renal function slightly worse today with Cr: 2.82 from 2.64 and UOP: 550 ml in 24 hrs 08/18 Patient bit through ETT overnight s/p new ETT placement using tube exchanger. Sedated with Diprivan and Fentanyl. Afebrile. Renal function is improving with Cr: 1.97 from 2.82. On Bicarb drip. Tube feeds held for possible colonoscopy today. 08/19: Remains sedated, orally intubated on mechanical ventilation. Colonoscopy done yesterday revealed ischemic colitis. Has been evaluated by general surgery. Patient went into A. fib with RVR last night and was started on a Cardizem drip. On Levophed for hypotension 08/20: Remains sedated, orally intubated on mechanical ventilation. Started on TPN on 08/19. Cardizem drip turned off this morning. Received 1 dose of digoxin yesterday. 08/21: Remains sedated, orally intubated on mechanical ventilation. On TPN. Ordered Precedex as well as digoxin daily. Starting trophic feeds today. 08/22 Patient remains intubated on Precedex and Fentanyl infusion for sedation. afebrile. Subjective: 08/23 WBC up to 17.7. Temp max 102.2. Blood culture sent today peripherally ( labelled as line draw initially but was not drawn from a line, lab notified to re-label). Tolerating trophic feeds. Awake and on CPAP 10/5 with RSBI 50s, became labored and desat with 5/5. Denies abdominal pain. Objective Vital Signs Date Time Temp Pulse Resp B/P (MAP) Pulse Ox O2 Delivery O2 Flow Rate FiO2 08/23/17 09:10 92 50 08/23/17 06:00 92 08/23/17 04:00 100.2 21 130/69 (89) Intake and Output 08/23/17 08/23/17 08/24/17 08:00 16:00 00:00 Intake Total 1507 ml Output Total 850 ml Balance 657 ml Result Diagram: 08/23/17 1059 08/23/17 1059 Other Results Microbiology Date/Time Source Procedure Growth Status 08/21/17 13:45 Urine Catheterized Urine Urine Culture - Final NO GROWTH IN 48 HOURS. Complete Imaging Last Impressions Abdomen X-Ray 08/21/17 0600 Signed Impressions: Service Date/Time: July 03:35 - CONCLUSION: The bowel gas pattern remains fairly unremarkable. Jl Stanley MD Chest X-Ray 08/21/17 0000 Signed Impressions: Service Date/Time: July 19:39 - CONCLUSION: 1. Stable tubes and lines, as above. 2. Worsening bilateral lower lung zone pleural parenchymal disease. Douglas Jean MD Lumbar Puncture Fluoroscopy 08/15/17 0000 Signed Impressions: Service Date/Time: Tuesday, August 15, 2017 15:36 - CONCLUSION: 1. Uncomplicated fluoroscopically guided lumbar puncture. 2. Please note, requested opening pressures were not obtained due to technical difficulties. Shashi Moreno MD Brain MRI 08/15/17 0000 Signed Impressions: Service Date/Time: Tuesday, August 15, 2017 16:57 - CONCLUSION: 1. 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 2. Mild stenosis in the upper cervical spine as above. Esau Martell MD Abdomen/Pelvis CT 08/15/17 0000 Signed Impressions: Service Date/Time: Wednesday, August 16, 2017 00:25 - CONCLUSION: 1. Abnormal thickening of the descending colonic wall and the possibility of colitis should be entertained. There is also thickening of distal ileal wall which may be inflammatory as well. 2. There is mild anasarca with edema or inflammatory changes within the bilateral paracolic gutters extending down into the pelvis. 3. Small bilateral pleural effusions and bibasilar atelectasis and/or infiltrate. 4. Prominent ileocecal valve and possibility of lipoma at this site is not excluded. Josseline Villagomez MD Abdomen Ultrasound 08/15/17 0000 Signed Impressions: Service Date/Time: Tuesday, August 15, 2017 10:40 - CONCLUSION: 1. No abnormality is identified to explain the clinical symptoms. There is no hydronephrosis. 2. The liver is normal in size and echotexture. Adan Machuca MD Head CT 08/14/17 251 Signed Impressions: Service Date/Time: July 22:54 - CONCLUSION: Unremarkable study. Josseline Villagomez MD Objective Remarks Drips: Fentanyl 50 mcg/min Precedex 1.5 mcg/kg/min Glucerna 1.5 @ 20/hr. GENERAL: Patient is 82 yo critically ill appearing but is sitting upright in bed , nodding and shaking her head to questions and following commands. SKIN: Warm and dry. Anasarca HEAD: Normocephalic. EYES: Pupils equal and reactive bilaterally. No scleral icterus. No injection or drainage. NECK: Supple, trachea midline. No JVD or lymphadenopathy. Orally intubated CARDIOVASCULAR: S1-S2 irregularly irregular, no gallop or murmur. RESPIRATORY: Orally intubated on mechanical ventilation, good air entry bilaterally, no wheezing or crackles. Dignishield in place -ordering removal : Doe in place with yellow urine output GASTROINTESTINAL: Abdomen soft, non-tender, minimally distended. Bowel sounds hypoactive : Doe in place with yellow urine output. MUSCULOSKELETAL: No cyanosis, weeping serous fluid from R art line site. Fingers mottled bilaterally, radial pulses palpable bilaterally. Pitting edema 2 + BUE and thighs of BUE. SCD in place . NEURO: Is on continuous sedation but is awake and nods to answer to questions, tries to mouth words with ETT in place. Squeezes hands bilaterally and moves feet to command. 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 Daily sedation vacation. Monitor neuro status. Oxycodone scheduled added for pain. 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 Repeat EEG 08/21.- generalized slowing, no epileptiform features Neuro is following- Dr. Danielle LP showed clear CSF, 17 WBC, TP:45.2 Pulm: Acute respiratory failure Bilateral pleural effusions Continue with vent support and maintain sats> 92%. ICU vent bundle. Daily SBT trial. Tolerate CPAP 10/5 but did not tolerate 5/5 well. Will address volume status. s/p new ETT placement on 08/18 using tube exchanger ( patient bit thru ETT) Diuresis with Lasix 40 mg IV every 8 hours. Increase dose and/or add albumin if unable to achieve negative balance. We will be obtaining CT abdomen and pelvis which will allow to assess size of pleural effusions and then will consider thoracentesis if needed to achieve liberation from mechanical ventilation. CV: Atrial fibrillation, previously RVR now rate controlled. Systolic heart failure Monitor HR and BP keep MAP>65mmHg. On Digoxin 0.125 mg daily. Digoxin level 1.4 on 08/22. Off Cardizem drip. Troponin is trended down. Echo showed EF 45-50% Taper steroids- Decrease hydrocortisone 25mg IV daily : Acute kidney injury, resolved Lactic acidemia, resolved Rhabdomyolysis Hypernatremia Monitor renal function, intake and output and avoid nephrotoxins. Renal function gradually improving. d/c IVF and diurese with Lasix as per above. Renal is following-Dr. Figueroa, US abdomen: No hydronephrosis On free water 250ml Q8 GI: Ischemic colitis Severe acute on Chronic protein energy malnutrition AST elevation secondary to alcohol use On Pepcid for GI prophylaxis. Monitor LFT's( trending down) US liver: No abnormalities identified tube feeds-on tube feeds with Glucerna for trophic feeds at 20 cc/h GI is following- colonoscopy showed diffuse colitis in the sigmoid colon and descending colon; Necrotic, dusky appearing mucosa. Consistent with severe ischemic colitis. General surgery, Dr. Guadalupe -plan to treat conservatively unless patient worsens clinically. Repeat CT abdomen and pelvis 08/23 as per discussion under ID TPN off as she has no CVL/PICC and working up for DVT. On trophic feeds per general surgery. Will assess nutritional plan after results of imaging. ID: Septic shock resolved UTI Ischemic colitis Abx per ID (Cefepime, Flagyl, Vanco, Micafungin ) Dr. Davis. Pancultured 08/21 and blood, sputum and urine cxs have no growth to date. Additional blood cultures sent 08/23 (labeled as a line culture but this was a peripheral stick) Central line was removed 08/22. CT abdomen/pelvis: thickening of the descending colonic wall and the possibility of colitis should be entertained. There is also thickening of distal ileal wall which may be inflammatory as well. Now with worsening fever curve over the last 24 hours with T-max 102.9. White blood cell count uptrending as well. Abdomen exam seems relatively benign but steroids may obscure exam findings. Will obtain followup CT abd/pelvis. Alternatively, WBC and fever could be related to DVT so obtained extremity ultrasounds. Has RIJ thrombus, ?L common femoral nonocclusive DVT and in other superficial veins. Will need anticoagulation. If CT does not show surgical emergency, will proceed with heparin drip without bolus. Risk of GI bleeding in setting of ischemic colitis, will monitor closely. Discussed risk benefit in detail with daughter. Updated neurology, Dr. Mejias and general surgery. C-diff PCR is negative, stool studies negative s/p LP showed clear CSF, 17 WBC, TP:45.2, HSV DNA PCR neg Endo: SSI medium with Accu-Chek for glycemic control. TSH: 1.15. Heme: Monitor CBC. Send type and cross before starting heparin. GI prophylaxis with Pepcid and DVT prophylaxis with SCDs, Heparin SQ, may transition to drip per above plan. Lines: Peripheral IV. Right IJ Central line removed 08/22. , Right radial Art line placed 08/15, has been removed. Dr. Jessica Corea had discussed possible need for tracheostomy and PEG tube if patient needs more time to recover. Daughter was agreeable with that plan but currently is focused on extubation as her mother is more awake and not pleased to be on vent unable to communicate. Discussed CPAP trial on minimal setttings not well tolerated and need results of CT and workup for ?recurrent sepsis and address volume status before any potential for extubation. . Palliative care following to assist with deciding goals of therapy. Discussed with Dr. Mejias and Dr. Guadalupe. Patient remains criticallly ill with multiorgan dysfunction at high risk for further compromise, may be developing recurrent sepsis. New venothromboembolic disease requiring initiation of anticoagulation and close monitoring due to risk of hemorrhage. CCT 40 mins excluding procedures Breanne Robison MD Aug 23, 2017 12:49
[2017-08-23 13:03] LABS: BANDS 9 % (0-6); LYMPHOCYTES 8 % (9-44); MONOCYTES 7 % (0-8); POLYS (SEG NEUTROPHILS) 76 % (16-70); TOXIC GRANULATION 1+ (NORMAL)
[2017-08-23 14:18] LABS: TOTAL BILIRUBIN ADULT 0.5 MG/DL (0.2-1.0); TOTAL PROTEIN 5.5 GM/DL (6.4-8.2)
[2017-08-23 14:23] LABS: ALBUMIN 1.6 GM/DL (3.4-5.0); DIRECT BILIRUBIN ADULT 0.1 MG/DL (0.0-0.2); INDIRECT BILIRUBIN 0.4 MG/DL (0.0-0.8)
[2017-08-23] MEDS: MICAFUNGIN INJ 100 MG in SODIUM CHLORIDE 0.9% INJ 100 ML IV SCH (16:22)
--- NOTE | 2017-08-23 16:36 | RADRPT ---
EXAM DATE/TIME: 08/23/2017 15:50 [facility] COMPARISON: No previous studies available for comparison. INDICATIONS : Bilateral leg swelling. MEDICAL HISTORY : Hypertension. Diverticulitis. Arthritis. Anxiety. SURGICAL HISTORY : Colon resection. Appendectomy. Hysterectomy. Bilateral cataracts removal with lens implants. Left kne e fracture. Right arm fracture. Breast augmentation. Cholecystectomy. ENCOUNTER: Initial ACUITY: 1 day PAIN SCORE: Non-responsive LOCATION: Bilateral legs. TECHNIQUE: Venous ultrasound of the left and right leg was performed from the inguinal ligament to the proximal calf. Real-time, color Doppler and spectral tracing, compression and augmentation techniques were us ed. FINDINGS: RIGHT LEG: There is normal compressibility of the deep venous system from the inguinal region to the proximal ca lf. No echogenic clot is seen in the lumen of the common femoral, femoral, popliteal, and posterior tibial veins. There is a normal response of the venous system to proximal and distal augmentation an d respiration. LEFT LEG: And there is incomplete compression of the left common femoral vein. A power, no definite intralumina l thrombus is identified and there is normal Doppler signal with respiratory variability. The remaini ng veins of the left lower extremity demonstrates a normal compression. No echogenic clot is seen in the lumen of the common femoral, femoral, popliteal, and posterior tibial veins. There is a normal response of the venous system to proximal and distal augmentation and respiration. CONCLUSION: 1. There is incomplete compression of the left common femoral vein raising suspicion for nonocclusive thrombus. This vessel, however, still demonstrates normal Doppler blood flow and respiratory variabi lity. 2. The remaining veins of the left lower extremity are patent and the entire right lower extremity is patent without thrombus. Adan Machuca MD on August 23, 2017 at 16:32 Board Certified Radiologist. This report was verified electronically.
--- NOTE | 2017-08-23 18:14 | RADRPT ---
EXAM DATE/TIME: 08/23/2017 16:25 [facility] COMPARISON: No previous studies available for comparison. INDICATIONS : Bilateral arm swelling. MEDICAL HISTORY : Hypertension. Diverticulitis. Arthritis. Anxiety. SURGICAL HISTORY : Colon resection. Appendectomy. Hysterectomy. Bilateral cataracts removal with lens implants. Left kne e fracture. Right arm fracture. Breast augmentation. Cholecystectomy. ENCOUNTER: Initial ACUITY: 1 day PAIN SCORE: Non-responsive LOCATION: Bilateral arms. FINDINGS: RIGHT UPPER EXTREMITY: There is a combination of occlusive and nonocclusive thrombus noted in the right internal jugular vei n and right cephalic vein. Flow is demonstrated in the axillary vein, subclavian vein, brachial and b asilic veins. LEFT UPPER EXTREMITY: There is occlusive thrombus noted within the basilic vein and cephalic vein of the left upper chimney . Flow is demonstrated in the left internal jugular vein, subclavian vein, axillary and brachial vein s. CONCLUSION: Bilateral upper extremity DVT as described above. Samuel Peralta MD on August 23, 2017 at 18:09 Board Certified Radiologist. This report was verified electronically.
[2017-08-23] MEDS ORDERED: DIATRIZOATE MEGLUM/DIATRIZOATE SOD 9 ML CUP PO ONE (19:00)
[2017-08-23] MEDS: FUROSEMIDE 40 MG/4 ML VIAL IV PUSH SCH (19:51)
[2017-08-23] MEDS: POTASSIUM CHLORIDE 25 MEQ EFFERVESCENT TAB NG SCH (19:52)
--- NOTE | 2017-08-23 23:09 | RADRPT ---
EXAM DATE/TIME: 08/23/2017 22:50 [facility] COMPARISON: CT ABDOMEN & PELVIS W/O CONTRAST, August 16, 2017, 0:25. INDICATIONS : Abdominal pain. ORAL CONTRAST: Prescribed oral contrast ingested. RADIATION DOSE: 11.66 CTDIvol (mGy) MEDICAL HISTORY : Hypertension. Renal failure, acute. SURGICAL HISTORY : Appendectomy. Cholecystectomy.Colon resection. ENCOUNTER: Initial ACUITY: 1 day PAIN SCALE: Non-responsive LOCATION: abdomen TECHNIQUE: Volumetric scanning of the abdomen and pelvis was performed. Using automated exposure control and ad justment of the mA and/or kV according to patient size, radiation dose was kept as low as reasonably achievable to obtain optimal diagnostic quality images. DICOM format image data is available electro nically for review and comparison. FINDINGS: Trace ascites again noted. There is mild wall thickening diffusely of the colon. Nonobstructive patte rn. Benign-appearing lipoma of the ascending colon again seen. No abscess or free air seen. A rectal tube is present. There is a nasogastric tube with tip in the stomach. 3 mm nonobstructing stone right renal mid zone. 23 mm cyst left renal lower pole. Noncontrast appeara nce of the liver, spleen, pancreas and adrenal glands within normal limits. Diffuse anasarca, worse. Bibasilar consolidation and small to moderate effusions, worse. Atherosclerotic abdominal aorta. No aneurysm. CONCLUSION: 1. Suspected mild diffuse colitis, nonspecific but presumably infectious or inflammatory. No obstruct ion or abscess. 2. Trace ascites about the same there is worsening anasarca and worsening pleural effusions and conso lidation of both lung bases. 3. Tiny nonobstructing stone of the right kidney and a generally benign appearing cyst lower pole the left kidney. No evidence of obstructive uropathy or other etiology for acute renal failure. 4. Atherosclerotic aorta. No aneurysm. Adan Nunes MD on August 23, 2017 at 23:02 Board Certified Radiologist. This report was verified electronically.
[2017-08-24] VITALS (23 sets, daily range): BP systolic 96–126; BP diastolic 54–69; PULSE 79–103; RESP 16–25; TEMP 100.2–101.2; O2SAT 75–100
[2017-08-24] MEDS: FAMOTIDINE 20 MG/2 ML VIAL IV PUSH SCH (00:08)
[2017-08-24] MEDS: CEFEPIME INJ 2,000 MG in SODIUM CHLORIDE 0.9% INJ 100 ML IV SCH ×3 (00:16→18:00)
[2017-08-24] MEDS: metroNIDAZOLE 500 MG INJ 100 ML IV SCH ×4 (01:55→21:43)
[2017-08-24] MEDS: fentaNYL DRIP 250 ML IV PRN ×2 (03:00→18:15)
[2017-08-24] MEDS: DEXMEDETOMIDINE INJ 1,000 MCG in SODIUM CHLOR 0.9% 250 ML INJ 240 ML IV PRN ×2 (03:01→20:18)
[2017-08-24] MEDS: RESP: IPRATROPIUM 0.5 MG/2.5 ML NEB NEB PRN (03:57)
[2017-08-24] MEDS: INSULIN NovoLIN REGULAR SUPPLEMENTAL SCALE SQ SCH ×6 (04:00→20:00)
[2017-08-24 04:12] LABS: INTERNATIONAL NORMALIZED RATIO 1.4 RATIO; PROTHROMBIN TIME - PATIENT 13.8 SEC (9.8-11.6)
[2017-08-24 04:12] LABS: AUTOMATED NEUTROPHIL # 17.1 TH/MM3 (1.8-7.7); BASOPHIL # 0.1 TH/MM3 (0-0.2); BASOPHIL % 0.3 % (0.0-2.0); EOSINOPHIL % 0.1 % (0.0-4.0); HEMATOCRIT 24.3 % (35.0-46.0); HEMOGLOBIN 8.2 GM/DL (11.6-15.3); LYMPH % 8.3 % (9.0-44.0); LYMPHOCYTE # 1.7 TH/MM3 (1.0-4.8); MEAN CELL VOLUME 94.7 FL (80.0-100.0); MEAN CORPUSCULAR HEMOGLOBIN 32.1 PG (27.0-34.0); MEAN CORPUSCULAR HGB CONC 33.9 % (32.0-36.0); MEAN PLATELET VOLUME 8.6 FL (7.0-11.0); MONO % 6.7 % (0.0-8.0); MONOCYTE # 1.3 TH/MM3 (0-0.9); NEUT % 84.6 % (16.0-70.0); PLATELET COUNT 260 TH/MM3 (150-450); RED BLOOD COUNT 2.56 MIL/MM3 (4.00-5.30); RED CELL DISTRIBUTION WIDTH 13.8 % (11.6-17.2); WHITE BLOOD COUNT 20.2 TH/MM3 (4.0-11.0)
[2017-08-24] MEDS: POTASSIUM CHLORIDE 25 MEQ EFFERVESCENT TAB NG SCH ×3 (04:18→21:44)
[2017-08-24] MEDS: FUROSEMIDE 40 MG/4 ML VIAL IV PUSH SCH ×2 (04:18→11:04)
[2017-08-24] MEDS: HEPARIN-D5W 25,000 U/250 ML 250 ML IV PRN (04:23)
[2017-08-24 04:34] LABS: BICARBONATE 30.7 MEQ/L (21.0-32.0); CALCIUM 7.2 MG/DL (8.5-10.1); CREATININE 0.64 MG/DL (0.50-1.00); MAGNESIUM 1.9 MG/DL (1.5-2.5); PHOSPHORUS 2.4 MG/DL (2.5-4.9)
[2017-08-24 05:10] LABS: CALCIUM-PROTEIN CORRECTED 8.4 MG/DL (8.5-10.1); TOTAL PROTEIN 4.9 GM/DL (6.4-8.2)
[2017-08-24 05:40] LABS: TOXIC GRANULATION 1+ (NORMAL)
[2017-08-24] MEDS: FREE WATER G-TUBE SCH ×3 (06:00→21:47)
[2017-08-24] MEDS: THIAMINE HCL 100 MG TAB PO SCH (09:26)
[2017-08-24] MEDS: MULTIVITAMIN TAB PO SCH (09:26)
[2017-08-24] MEDS: FOLIC ACID 1 MG TAB PO SCH (09:26)
[2017-08-24] MEDS: ASPIRIN 81 MG CHEW TAB OG-TUBE SCH (09:26)
[2017-08-24] MEDS: HYDROCORTISONE SOD SUCCINATE 100 MG VIAL IV PUSH SCH (09:30)
[2017-08-24] MEDS: SODIUM CHLORIDE 0.9% FLUSH 10 ML FLUSH IV FLUSH SCH ×3 (09:31→21:43)
[2017-08-24] MEDS: DIGOXIN 0.5 MG/2 ML VIAL IV PUSH SCH (09:31)
[2017-08-24] MEDS: HEPARIN SODIUM - SQ 10,000 UNITS/ML VIAL SQ SCH ×2 (09:32→21:46)
[2017-08-24] MEDS: MICAFUNGIN INJ 100 MG in SODIUM CHLORIDE 0.9% INJ 100 ML IV SCH (11:00)
[2017-08-24] MEDS: VANCOMYCIN INJ 1,250 MG in SODIUM CHLOR 0.9% 250 ML INJ 250 ML IV SCH (11:05)
--- NOTE | 2017-08-24 13:38 | HHI.CCPN ---
Subjective Remarks/Hospital Course Patient is an 82-year-old female with past medical history of irritable bowel syndrome, hypertension, arthritis, diverticulitis who presented to the [facility] ED after she was found lying on her bed with urine and feces all around her bed. In addition, the patient was altered and obtunded. Most of the history was obtained from reviewing the medical records. Her laboratory data showed acute renal failure with BUN of 52, creatinine 3.39 and lactic acidosis with a lactic acid level of 6.3. In addition, the patient was in rhabdomyolysis with elevated CK at 3855. She was admitted under the hospitalist service; however, a [facility] was called due to worsening mental status, hypertension and hypoxemia. She was transferred to [facility] and critical care medicine was consulted for critical care management. When seen, the patient was lethargic, not following any commands, hypotensive. She was subsequently intubated by myself and a right internal jugular central line was placed for hemodynamic monitoring. ABG post intubation showed a pH of 7.31, co2 of 30, pA02 of 117, bicarbonate 15 and saturation of 96% on PRVC rate of 14, tidal volume 350 with IT:1, PEEP 5 and FIO2 of 100%. She was given two liter boluses of normal saline and placed on a bicarbonate drip. Her lactic acid level is trending down and is currently 3.4 from 6.3 on arrival. In addition, her renal function is improving with IV hydration. Her creatinine level is 2.29 from 3.39. Due to hypotension, Levophed was started. A CT scan of the brain in the emergency department was unremarkable. Her initial chest x-ray showed minimal basilar atelectasis, no effusions or pneumothoraces. According to the patient's family, the patient has been intermittently binge drinking. In addition, they report her having diarrhea for a few days. She had a low-grade fever with a temperature of 100.2 last night. 08/16 Patient is sedated with Fentanyl drip intubated and on Levophed 5 mics. On Bicarb drip. MRI brain yesterday showed small lacunar infarcts in left cerebellar hemisphere and right parietal lobe. Lp showed clear CSF, 17 wbc. Afebrile.Renal function worse today with Cr: 2.64 from 2.29 08/17 Patient remains sedated and intubated. On Bicarb drip. Off Levophed renal function slightly worse today with Cr: 2.82 from 2.64 and UOP: 550 ml in 24 hrs 08/18 Patient bit through ETT overnight s/p new ETT placement using tube exchanger. Sedated with Diprivan and Fentanyl. Afebrile. Renal function is improving with Cr: 1.97 from 2.82. On Bicarb drip. Tube feeds held for possible colonoscopy today. 08/19: Remains sedated, orally intubated on mechanical ventilation. Colonoscopy done yesterday revealed ischemic colitis. Has been evaluated by general surgery. Patient went into A. fib with RVR last night and was started on a Cardizem drip. On Levophed for hypotension 08/20: Remains sedated, orally intubated on mechanical ventilation. Started on TPN on 08/19. Cardizem drip turned off this morning. Received 1 dose of digoxin yesterday. 08/21: Remains sedated, orally intubated on mechanical ventilation. On TPN. Ordered Precedex as well as digoxin daily. Starting trophic feeds today. 08/22 Patient remains intubated on Precedex and Fentanyl infusion for sedation. afebrile. 08/23 WBC up to 17.7. Temp max 102.2. Blood culture sent today peripherally ( labelled as line draw initially but was not drawn from a line, lab notified to re-label). Tolerating trophic feeds. Awake and on CPAP 10/5 with RSBI 50s, became labored and desat with 5/5. Denies abdominal pain. Subjective: 08/24: Tmax 102.7 overnight. Currently 100.6. Noted yeast growing from blood culture 08/21. Remains in atrial fibrillation. Potassium currently been replaced. Currently only has once peripheral IV access. Will need central line placed later this afternoon. Objective Vital Signs Date Time Temp Pulse Resp B/P (MAP) Pulse Ox O2 Delivery O2 Flow Rate FiO2 08/24/17 12:00 101.2 93 22 100/58 (72) 91 08/24/17 11:13 40 Intake and Output 08/24/17 08/24/17 08/25/17 08:00 16:00 00:00 Intake Total 1368 ml Output Total 2300 ml Balance -932 ml Result Diagram: 08/24/17 0351 08/24/17 0351 Other Results Microbiology Date/Time Source Procedure Growth Status 08/23/17 10:57 Blood Line Aerobic Blood Culture - Preliminary NO GROWTH IN 1 DAY Resulted 08/23/17 10:57 Blood Line Anaerobic Blood Culture - Preliminary NO GROWTH IN 1 DAY Resulted 08/15/17 15:56 Cerebral Spinal Fluid Lumbar Puncture Gram Stain - Final Complete 08/15/17 15:56 Cerebral Spinal Fluid Lumbar Puncture CSF Culture - Final NO GROWTH IN 72 HOURS Complete 08/15/17 02:28 Stool Stool Cryptosporidium Exam Pending Ordered 08/15/17 02:28 Stool Stool Giardia Antigen (MARCIA) Pending Ordered 08/21/17 15:20 Sputum Endotracheal Gram Stain - Final Complete 08/21/17 15:20 Sputum Endotracheal Sputum Culture - Final NO GROWTH IN 48 HOURS. Complete 08/21/17 13:45 Urine Catheterized Urine Urine Culture - Final NO GROWTH IN 48 HOURS. Complete Imaging Last Impressions Abdomen/Pelvis CT 08/23/17 1426 Signed Impressions: Service Date/Time: Wednesday, August 23, 2017 22:50 - CONCLUSION: 1. Suspected mild diffuse colitis, nonspecific but presumably infectious or inflammatory. No obstruction or abscess. 2. Trace ascites about the same there is worsening anasarca and worsening pleural effusions and consolidation of both lung bases. 3. Tiny nonobstructing stone of the right kidney and a generally benign appearing cyst lower pole the left kidney. No evidence of obstructive uropathy or other etiology for acute renal failure. 4. Atherosclerotic aorta. No aneurysm. Adan Nunes MD Upper Extremity Ultrasound 08/23/17 0000 Signed Impressions: Service Date/Time: Wednesday, August 23, 2017 16:25 - CONCLUSION: Bilateral upper extremity DVT as described above. Samuel Peralta MD Lower Extremity Ultrasound 08/23/17 0000 Signed Impressions: Service Date/Time: Wednesday, August 23, 2017 15:50 - CONCLUSION: 1. There is incomplete compression of the left common femoral vein raising suspicion for nonocclusive thrombus. This vessel, however, still demonstrates normal Doppler blood flow and respiratory variability. 2. The remaining veins of the left lower extremity are patent and the entire right lower extremity is patent without thrombus. Adan Machuca MD Chest X-Ray 08/23/17 0000 Signed Impressions: Service Date/Time: Wednesday, August 23, 2017 04:21 - CONCLUSION: No significant change. Adan Nunes MD Abdomen X-Ray 08/21/17 0600 Signed Impressions: Service Date/Time: July 03:35 - CONCLUSION: The bowel gas pattern remains fairly unremarkable. Jl Stanley MD Lumbar Puncture Fluoroscopy 08/15/17 0000 Signed Impressions: Service Date/Time: Tuesday, August 15, 2017 15:36 - CONCLUSION: 1. Uncomplicated fluoroscopically guided lumbar puncture. 2. Please note, requested opening pressures were not obtained due to technical difficulties. Shashi Moreno MD Brain MRI 08/15/17 0000 Signed Impressions: Service Date/Time: Tuesday, August 15, 2017 16:57 - CONCLUSION: 1. 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 2. Mild stenosis in the upper cervical spine as above. Esau Martell MD Abdomen Ultrasound 08/15/17 0000 Signed Impressions: Service Date/Time: Tuesday, August 15, 2017 10:40 - CONCLUSION: 1. No abnormality is identified to explain the clinical symptoms. There is no hydronephrosis. 2. The liver is normal in size and echotexture. Adan Machuca MD Head CT 08/14/172231 Signed Impressions: Service Date/Time: July 22:54 - CONCLUSION: Unremarkable study. Josseline Villagomez MD Objective Remarks GENERAL: 82-year-old female currently resting in bed, nodding and shaking her head to questions appropriately and following commands. SKIN: Warm and dry. Generalized Anasarca HEAD: Normocephalic. EYES: Pupils equal and reactive bilaterally about 3 mm. No scleral icterus. No injection or drainage. NECK: Supple, trachea midline. No JVD or lymphadenopathy. Orally intubated. Right IJ site without erythema CARDIOVASCULAR: IRR. S1, S2 no S4. No murmurs appreciated RESPIRATORY: Diminished breath sounds bilateral posterior bases. No wheezing appreciated. Airleak apparent : Doe catheter in place with yellow urine output GASTROINTESTINAL: Abdomen soft, non-tender, minimally distended. Bowel sounds hypoactive but present. No guarding or rigidity MUSCULOSKELETAL: No significant peripheral edema. Resolving mottling bilateral fingers. Pitting edema 1-2+ BUE and bilateral lower extremities NEURO: Is on continuous sedation but is awake and nods to answer to questions, tries to mouth words with ETT in place. Squeezes hands bilaterally and moves feet to command. 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 Oxycodone 5 mg every 6 hours scheduled in attempt to wean off ventilator UDS is negative 08/15: CT brain negative for acute intracranial process MRI brain: Small lacunar infarcts in left cerebellar hemisphere and right parietal lobe EEG: Severe encephalopathy Continue thiamine, multivitamin and folic acid daily. Repeat EEG 08/21.- generalized slowing, no epileptiform features Neuro is following- Dr. Danielle LP showed clear CSF, 17 WBC, TP:45.2 Previously on chlordiazepoxide 25 mg 3 times a day Pulm: Acute respiratory failure Bilateral pleural effusions PRVC 16/450/// Ventilator bundle Albuterol/ipratropium aerosols every 6 hours with albuterol aerosols every 2 hours. Dyspnea Continue with vent support and maintain sats> 92%. s/p new ETT placement on 08/18 using tube exchanger ( patient bit through ETT) Diuresis with erosive my 40 mg IV every 8 hours. We'll start on bumetanide drip at 0.25 mg an hour with albumin boluses 25%50 cc every 6 hours 4 08/23 - CT abdomen/pelvis revealed anasarca, bilateral pleural effusions with diffuse colitis. 3 mm right renal stone and multiple left-sided renal cysts Will attempt to diurese prior to attempted thoracentesis/bilateral pigtail chest tube placement CV: Atrial fibrillation, previously RVR now rate controlled. Systolic heart failure unknown if acute or chronic Monitor HR and BP keep MAP>65mmHg. On Digoxin 0.125 mg daily. Digoxin level 1.4 on 08/22. Recheck 08/25 Troponin is trended down. Echo showed EF 45-50% Elevated troponin Taper steroids- Decrease hydrocortisone 25mg IV daily Holding home medication Prinivil 20 mg by mouth daily Continue aspirin 81 mg by mouth daily/home medication Renal/FEN/: Acute kidney injury, resolved Lactic acidemia, resolved Rhabdomyolysis resolved Hypernatremia Hypokalemia Hypophosphatemia Right-sided nephrolithiasis/nonobstructing Left renal cyst Monitor renal function, intake and output and avoid nephrotoxins. Renal function gradually improving. d/c IVF and diurese with Lasix as per above. Renal has followed-Dr. Figueroa, US abdomen: No hydronephrosis On free water 250ml Q8 CT Endo/pelvis revealed nonobstructing right-sided nephrolithiasis and left renal cyst. GI: Ischemic colitis Severe acute on Chronic protein energy malnutrition AST elevation secondary to alcohol use Internal and external hemorrhoids On famotidine 20 mg twice a day for GI prophylaxis. Monitor LFT's( trending down ) US liver: No abnormalities identified tube feeds-on tube feeds with Glucerna for trophic feeds at 20 cc/h GI is following- colonoscopy showed diffuse colitis in the sigmoid colon and descending colon; Necrotic, dusky appearing mucosa. Consistent with severe ischemic colitis. General surgery, Dr. Guadalupe -plan to treat conservatively unless patient worsens clinically. Repeat CT abdomen and pelvis 08/23 as per discussion under ID TPN off as she has no CVL/PICC and working up for DVT. On trophic feeds per general surgery. Will assess nutritional plan after results of imaging. When central line replaced can start TPN 08/25 ID: Septic shock resolved UTI Ischemic colitis Fungemia Abx per ID (Cefepime, metronidazole, vancomycin, micafungin) Dr. Davis. Central line was removed 08/22. CT abdomen/pelvis: thickening of the descending colonic wall and the possibility of colitis should be entertained. There is also thickening of distal ileal wall which may be inflammatory as well. Has RIJ thrombus, ?L common femoral nonocclusive DVT and in other superficial veins. Will need anticoagulation. If CT does not show surgical emergency, will proceed with heparin drip without bolus. Risk of GI bleeding in setting of ischemic colitis, will monitor closely. Discussed risk benefit in detail with daughter. Updated neurology, Dr. Mejias and general surgery. \ Pertinent cultures 08/23 - blood culture by line (actually peripheral) - pending 08/21 - blood culture - no growth 08/21 - sputum - no growth 08/21 - - no growth 08/21 - blood culture - Yeast 08/15 - CSF - negative 08/15 - sputum - no growth 08/14 - blood cultures 2 and UA - no growth C-diff PCR is negative, stool studies negative s/p LP showed clear CSF, 17 WBC, TP:45.2, HSV DNA PCR neg Endo: Hyperglycemia of critical illness/steroid SSI with Novulin R medium with Accu-Chek every 4 hours for glycemic control. TSH: 1.15. Heme: Leukocytosis Normocytic anemia Right IJ DVT Possible left common femoral vein DVT Left cephalic/basilic to professional and right superficial cephalic thrombus Monitor CBC. Sent type and cross before starting heparin. Restart iron sulfate 300 mg by tube twice a day Monitor CBC daily. Follow trends GI prophylaxis with famotidine and DVT prophylaxis with SCDs, Heparin drip Lines: Peripheral IV. Right IJ Central line removed 08/22. , Right radial Art line placed 08/15, has been removed 08/18 Discuss with daughter at bedside and all questions answered Level II follow-up Madhu Carrion MD Aug 24, 2017 13:38
[2017-08-24] MEDS ORDERED: BUMETANIDE INJ 100 ML IV SCH (14:00)
[2017-08-24] MEDS: ARTIFICIAL TEARS OPTH SOLN 15 ML BTL EACH EYE SCH ×2 (14:00→21:47)
[2017-08-24] MEDS ORDERED: MIDAZOLAM HCL 5 MG/ML VIAL (1 ML) IV ONE (17:00)
[2017-08-24] MEDS ORDERED: NOREPINEPHRINE INJ 4 MG in SODIUM CHLOR 0.9% 250 ML INJ 246 ML IV PRN (17:15)
[2017-08-24] MEDS ORDERED: RESP: ALBUTEROL 2.5 MG/3 ML NEB (PRN) NEB (17:15)
[2017-08-24] MEDS ORDERED: TERBUTALINE INJ 1 MG/ML AMP SQ PRN (17:15)
--- NOTE | 2017-08-24 17:39 | PD.PROCEDR ---
Central Line Procedure REASON FOR PROCEDURE Central venous access PROCEDURE PERFORMED Central line placement: Left IJ CVL CONSENT Informed consent for procedure was obtained . The risks and benefits of the procedure were discussed to include but limited to bleeding, clot formation, infection, and even . ANESTHESIA Local injection of 1% Lidocaine DESCRIPTION OF THE PROCEDURE The patient was placed in supine, mild Trendelenburg position. The area was exposed and cleansed with ChloraPrep, times two. Large sterile drape was used to cover the patient, with the site exposed, under sterile conditions including cap, face mask, sterile gown, and sterile gloves. On single attempt, the introducer needle was inserted with negative pressure in syringe and venous flash was obtained. The guide wire was then advanced without any restriction and the needle was removed. The dilator was used without any complications. Using Seldinger technique the triple-lumen antibiotic coated catheter was advanced over the guide wire to a depth of 20 centimeters. The guide wire was removed. All ports were aspirated with dark venous blood return and flushed easily with sterile saline. All ports were capped. Antibiotic disc was placed around central line at puncture site. The central line was secured to the skin with two interrupted 2.0 silk sutures. The area was bandaged with sterile see- through central line bandage. RADIOLOGICAL DATA Ultrasound guidance was used to locate left IJ CVL. Doppler/color flow was used to confirm venous flow. COMPLICATIONS: No apparent complications Patient was diaphoretic therefore StatLock was not placed due to unable to adequately secure the difficulty Place central line. Instead central line was sutured with two 2.0 silk sutures. Per [place] policy vascular access team will remove sutures one week if central line remains and place StatLock. ESTIMATED BLOOD LOSS: Less than 1 cc. Madhu Carrion MD Aug 24, 2017 17:39
--- NOTE | 2017-08-24 18:09 | RADRPT ---
EXAM DATE/TIME: 08/24/2017 17:53 [facility] COMPARISON: CHEST SINGLE AP, August 23, 2017, 4:21. INDICATIONS : Cental line placement. MEDICAL HISTORY : Hypertension. Diverticulitis. Arthritis. Renal failure SURGICAL HISTORY : Colon resection. Appendectomy. Hysterectomy. ENCOUNTER: Subsequent ACUITY: 1 week PAIN SCORE: 0/10 LOCATION: Bilateral chest FINDINGS: A left central line has been placed. The central line appears to be in good position. There is no pne umothorax. The support devices remain in place. There continue to be stable patchy infiltrates in bot h lung bases. No evidence of pneumothorax. The heart size is stable. CONCLUSION: Left central line in place. No pneumothorax. Samuel Peralta MD on August 24, 2017 at 18:07 Board Certified Radiologist. This report was verified electronically.
--- NOTE | 2017-08-24 18:24 | HHI.IDPN ---
Note Infectious Disease Note ID COVERAGE FOR DR Bebeto BRITO Notes reviewed D/W RN Continue to have fever . Awake and alert on the vent. On 40% FIO2. WBC remain elevated. New central line placed today 08/24. RN reports loose stools. Blood culture has yeast in one of four bottles 08/21. Repeat blood culture pending. . Ms. Olson is an 82 year old female with past medical history of hypertension, possible sleep apnea, chronic neck pain, sciatica, alcohol abuse, arthritis, chronic rectal prolapse with bowel incontinence and anxiety. Patients daughter reports she was away for last week (normally she lives with Mom). She checked on her mom each night. The night prior to admission patient and daughter spoke to each other and no reported fever or change in behavior etc noted. No recent bounced checks, change in behavior, fires, falls or doors left unopened or such security concerns. She was found by her daughter lying in bed. On questioning patient was not found vomiting and no seizures. But patient was found in urine and feces. With this background patient presented to [facility] ER on when daughter arrived home to find patient laying on the bed covered in urine and feces. She was obtunded and 911 was called. Upon arrival to the ER: * VS - 100.2, HR 104, RR 18, BP 125/55, O2 sat 95% on room air. * WBC 10.2, hgb 13.8, hct 41.6, platelets 304, neutrophils 91.3% * BUN 52, creatinine 3.39, glucose 177, sodium 141, potassium 5.1, chloride 103 , GFR 13 * Lactic acid 6.3 * TCK 3855, CK-MB 113.6, CK-MB 2.9% * CT head - unremarkable * CXR - minimal basilar atelectasis, no effusion or pneumothorax Patient was admitted to the [facility] Hospitalist service for severe dehydration. acute renal failure, rhabdomyolysis, lactic acidosis, possible UTI, sepsis. Overnight she developed tachycardia, hypotension and hypoxemia. She was transferred to ICU placed on pressor support. She was started on heparin drip per PE protocol. Finishing Room Operator was consulted for hypotension, septic shock. On non -rebreather with with oxygen saturation 90% and BP 79/50. Since admission she was intubated and placed on [facility] vent. Infectious disease consulted for evaluation and M'ment of septic shock with meningoencephalitis. C diff negative Colonoscopy C/W severe ischemic colitis Antibiotics Current Medications Cefepime Flagyl Vanco. Allergies: Coded Allergies: No Known Allergies (Verified Allergy, Unknown, 08/15/17) Objective Vital Signs Date Time Temp Pulse Resp B/P (MAP) Pulse Ox O2 Delivery O2 Flow Rate FiO2 08/24/17 16:22 100 75 08/24/17 14:00 91 08/24/17 13:00 82 08/24/17 12:00 101.2 93 22 100/58 (72) 91 08/24/17 12:00 93 08/24/17 12:00 50 08/24/17 11:13 94 40 08/24/17 11:00 92 08/24/17 10:00 88 08/24/17 09:00 90 08/24/17 08:03 90 40 08/24/17 08:00 100.6 91 19 98/55 (69) 75 08/24/17 08:00 91 08/24/17 08:00 50 08/24/17 07:00 103 08/24/17 06:00 98 08/24/17 04:00 50 08/24/17 04:00 100.2 93 21 99/58 (72) 96 08/24/17 04:00 93 08/24/17 03:35 93 40 08/24/17 02:10 16 08/24/17 02:00 86 08/24/17 00:00 95.9 92 25 126/69 (88) 95 08/24/17 00:00 50 08/24/17 00:00 92 08/23/17 23:36 92 40 08/23/17 22:30 95 70 08/23/17 22:00 90 08/23/17 20:08 97 40 08/23/17 20:00 88 08/23/17 20:00 102.7 88 19 127/61 (83) 93 08/23/17 20:00 50 08/23/17 18:55 90 40 Laboratory Tests Test 08/23/17 10:59 08/24/17 03:51 White Blood Count 17.7 TH/MM3 20.2 TH/MM3 Red Blood Count 3.45 MIL/MM3 2.56 MIL/MM3 Hemoglobin 10.9 GM/DL 8.2 GM/DL Hematocrit 32.0 % 24.3 % Mean Corpuscular Volume 92.9 FL 94.7 FL Mean Corpuscular Hemoglobin 31.6 PG 32.1 PG Mean Corpuscular Hemoglobin Concent 34.0 % 33.9 % Red Cell Distribution Width 13.9 % 13.8 % Platelet Count 317 TH/MM3 260 TH/MM3 Mean Platelet Volume 8.6 FL 8.6 FL Neutrophils (%) (Auto) 85.9 % 84.6 % Lymphocytes (%) (Auto) 5.3 % 8.3 % Monocytes (%) (Auto) 6.8 % 6.7 % Eosinophils (%) (Auto) 0.1 % 0.1 % Basophils (%) (Auto) 1.9 % 0.3 % Neutrophils # (Auto) 15.2 TH/MM3 17.1 TH/MM3 Lymphocytes # (Auto) 0.9 TH/MM3 1.7 TH/MM3 Monocytes # (Auto) 1.2 TH/MM3 1.3 TH/MM3 Eosinophils # (Auto) 0.0 TH/MM3 0.0 TH/MM3 Basophils # (Auto) 0.3 TH/MM3 0.1 TH/MM3 CBC Comment AUTO DIFF AUTO DIFF Differential Total Cells Counted 100 Neutrophils % (Manual) 76 % Band Neutrophils % 9 % Lymphocytes % 8 % Monocytes % 7 % Neutrophils # (Manual) 15.0 TH/MM3 Differential Comment FINAL DIFF MANUAL AUTO DIFF CONFIRMED Toxic Granulation 1+ 1+ Platelet Estimate NORMAL NORMAL Platelet Morphology Comment NORMAL NORMAL Laboratory Tests Test 08/23/17 10:59 08/24/17 03:51 Blood Urea Nitrogen 28 MG/DL 28 MG/DL Creatinine 0.67 MG/DL 0.64 MG/DL Random Glucose 123 MG/DL 116 MG/DL Calcium Level 7.5 MG/DL 7.2 MG/DL Phosphorus Level 2.4 MG/DL 2.4 MG/DL Magnesium Level 2.0 MG/DL 1.9 MG/DL Sodium Level 148 MEQ/L 150 MEQ/L Potassium Level 3.8 MEQ/L 3.4 MEQ/L Chloride Level 112 MEQ/L 114 MEQ/L Carbon Dioxide Level 29.0 MEQ/L 30.7 MEQ/L Anion Gap 7 MEQ/L 5 MEQ/L Estimat Glomerular Filtration Rate 84 ML/MIN 89 ML/MIN Total Bilirubin 0.5 MG/DL Direct Bilirubin 0.1 MG/DL Indirect Bilirubin 0.4 MG/DL Aspartate Amino Transf (AST/SGOT) 23 U/L Alanine Aminotransferase (ALT/SGPT) 18 U/L Alkaline Phosphatase 57 U/L Total Protein 5.5 GM/DL 4.9 GM/DL Albumin 1.6 GM/DL Lipase 350 U/L Protein Corrected Calcium 8.4 MG/DL Microbiology Date/Time Source Procedure Growth Status 08/23/17 10:57 Blood Line Aerobic Blood Culture - Preliminary NO GROWTH IN 1 DAY Resulted 08/23/17 10:57 Blood Line Anaerobic Blood Culture - Preliminary NO GROWTH IN 1 DAY Resulted Imaging Abdomen/Pelvis CT 08/23/17 1426 Signed Impressions: Service Date/Time: Wednesday, August 23, 2017 22:50 - CONCLUSION: 1. Suspected mild diffuse colitis, nonspecific but presumably infectious or inflammatory. No obstruction or abscess. 2. Trace ascites about the same there is worsening anasarca and worsening pleural effusions and consolidation of both lung bases. 3. Tiny nonobstructing stone of the right kidney and a generally benign appearing cyst lower pole the left kidney. No evidence of obstructive uropathy or other etiology for acute renal failure. 4. Atherosclerotic aorta. No aneurysm. Adan Nunes MD Upper Extremity Ultrasound 08/23/17 0000 Signed Impressions: Service Date/Time: Wednesday, August 23, 2017 16:25 - CONCLUSION: Bilateral upper extremity DVT as described above. Samuel Peralta MD Lower Extremity Ultrasound 08/23/17 0000 Signed Impressions: Service Date/Time: Wednesday, August 23, 2017 15:50 - CONCLUSION: 1. There is incomplete compression of the left common femoral vein raising suspicion for nonocclusive thrombus. This vessel, however, still demonstrates normal Doppler blood flow and respiratory variability. 2. The remaining veins of the left lower extremity are patent and the entire right lower extremity is patent without thrombus. Adan Machuca MD Chest X-Ray 08/23/17 0000 Signed Impressions: Service Date/Time: Wednesday, August 23, 2017 04:21 - CONCLUSION: No significant change. Adan Nunes MD Abdomen X-Ray 08/21/17 0600 Signed Impressions: Service Date/Time: July 03:35 - CONCLUSION: The bowel gas pattern remains fairly unremarkable. Jl Stanley MD Chest X-Ray 08/21/17 0000 Signed Impressions: Service Date/Time: July 19:39 - CONCLUSION: 1. Stable tubes and lines, as above. 2. Worsening bilateral lower lung zone pleural parenchymal disease. Douglas Jean MD Lumbar Puncture Fluoroscopy 08/15/17 0000 Signed Impressions: Service Date/Time: Tuesday, August 15, 2017 15:36 - CONCLUSION: 1. Uncomplicated fluoroscopically guided lumbar puncture. 2. Please note, requested opening pressures were not obtained due to technical difficulties. Shashi Moreno MD Brain MRI 08/15/17 0000 Signed Impressions: Service Date/Time: Tuesday, August 15, 2017 16:57 - CONCLUSION: 1. 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 2. Mild stenosis in the upper cervical spine as above. Esau Martell MD Abdomen/Pelvis CT 08/15/17 0000 Signed Impressions: Service Date/Time: Wednesday, August 16, 2017 00:25 - CONCLUSION: 1. Abnormal thickening of the descending colonic wall and the possibility of colitis should be entertained. There is also thickening of distal ileal wall which may be inflammatory as well. 2. There is mild anasarca with edema or inflammatory changes within the bilateral paracolic gutters extending down into the pelvis. 3. Small bilateral pleural effusions and bibasilar atelectasis and/or infiltrate. 4. Prominent ileocecal valve and possibility of lipoma at this site is not excluded. Josseline Villagomez MD Abdomen Ultrasound 08/15/17 0000 Signed Impressions: Service Date/Time: Tuesday, August 15, 2017 10:40 - CONCLUSION: 1. No abnormality is identified to explain the clinical symptoms. There is no hydronephrosis. 2. The liver is normal in size and echotexture. Adan Machuca MD Head CT 08/14/172231 Signed Impressions: Service Date/Time: July 22:54 - CONCLUSION: Unremarkable study. Josseline Villagomez MD Physical Exam GENERAL: Patient is in no acute distress. HEENT: EOMI. MALICK. No icterus. NECK: Supple. No swelling. LUNGS: Clear breath sounds. CARDIAC: Regular rate and rhythm. ABDOMEN: Soft, non tender. (+) BS. EXTREMITIES: Diffuse edema. SKIN: No rash. NEURO: non focal. PSYCH: calm, Cooperative. GENERAL: Awake, following simple commands, no apparent distress. SKIN: No rashes, ecchymoses or lesions. Warm and dry. HEAD: Atraumatic. Normocephalic. EYES: Pupils equal round and reactive. Extraocular motions intact. No scleral icterus. No injection or drainage. Has mild scleral edema ENT: Intubated. Moist oral mucosa, no nasal drainage NECK: Trachea midline. Supple, nontender, CARDIOVASCULAR: BERNABE, no gallops or rubs. RESPIRATORY: Basilar rhonchi, good air movement. GASTROINTESTINAL: Abdomen distended, not tender, hypoactive bowels sounds, no guarding or rebound. MUSCULOSKELETAL: Extremities without clubbing, cyanosis. Has edema hands. No calf tenderness. Negative Homans sign bilaterally. NEUROLOGICAL: Opens eyes spontaneously, moves all 4 extremities. PSYCH: Cooperative Assessment and Plan Fevers, source? Candidemia. Probable GI source. Septic Shock. 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 Alcohol abuse: at risk for withdrawal. Acute rhabdomyolysis: ? seizures. Acute renal failure: sepsis, prerenal, rhabdomyolysis. Colitis clinically and radiologically ; likely ischemic - C diff negative Recs: Continue Cefepime (possible HCAP) Continue Flagyl Continue Vanco (MRSA coverage possible HCAP) Continue Micafungin. (Has been in hospital, antifungal coverage) Follow blood cultures Follow new C/S Follow temps Follow CBC Monitor progress Weaning per [facility] Trey Davis MD Aug 24, 2017 18:24
[2017-08-24] MEDS: RESP: ALBUTEROL 2.5 MG/IPRATROPIUM 0.5 MG NEB (SCH) NEB (19:41)
[2017-08-24] MEDS: ALBUMIN 25% INJ 50 ML IV SCH (19:44)
[2017-08-24] MEDS: FAMOTIDINE 40 MG/5 ML LIQ 50 ML BTL NG SCH (21:00)
[2017-08-24] MEDS: FERROUS SULFATE 300 MG /5ML UDC PO SCH (21:43)
[2017-08-24] MEDS: MELATONIN 5 MG TAB PO PRN (21:44)
[2017-08-25] VITALS (17 sets, daily range): BP systolic 93–127; BP diastolic 55–66; PULSE 90–122; RESP 12–22; TEMP 97.5–97.8; O2SAT 76–100
[2017-08-25] MEDS: metroNIDAZOLE 500 MG INJ 100 ML IV SCH ×4 (01:39→20:32)
[2017-08-25] MEDS: ALBUMIN 25% INJ 50 ML IV SCH ×2 (01:40→14:23)
[2017-08-25] MEDS: CEFEPIME INJ 2,000 MG in SODIUM CHLORIDE 0.9% INJ 100 ML IV SCH ×2 (01:40→14:23)
[2017-08-25] MEDS: RESP: ALBUTEROL 2.5 MG/IPRATROPIUM 0.5 MG NEB (SCH) NEB ×5 (03:56→21:21)
[2017-08-25] MEDS: INSULIN NovoLIN REGULAR SUPPLEMENTAL SCALE SQ SCH ×6 (04:00→20:00)
[2017-08-25] MEDS: DEXMEDETOMIDINE INJ 1,000 MCG in SODIUM CHLOR 0.9% 250 ML INJ 240 ML IV PRN (04:04)
[2017-08-25] MEDS: POTASSIUM CHLORIDE 25 MEQ EFFERVESCENT TAB NG SCH ×3 (04:05→20:33)
[2017-08-25] MEDS: FREE WATER G-TUBE SCH ×3 (04:05→20:14)
[2017-08-25] MEDS: ARTIFICIAL TEARS OPTH SOLN 15 ML BTL EACH EYE SCH ×3 (04:05→20:33)
[2017-08-25] MEDS: fentaNYL DRIP 250 ML IV PRN (04:05)
--- NOTE | 2017-08-25 05:31 | RADRPT ---
EXAM DATE/TIME: 08/25/2017 03:26 [place] COMPARISON: CHEST SINGLE AP, August 24, 2017, 17:53. INDICATIONS : Shortness of breath, possible pulmonary disease. MEDICAL HISTORY : Hypertension. Diverticulitis. Arthritis. Renal failure SURGICAL HISTORY : Colon resection. Appendectomy. Hysterectomy. ENCOUNTER: Subsequent ACUITY: 1 week PAIN SCORE: Non-responsive. LOCATION: Bilateral chest FINDINGS: Stable ETT, left IJ central line and NGT coursing beyond the GE junction. Stable small bilateral pleu ral effusions and associated lower lobe airspace disease. Cardiomediastinal contours are within hemant l limits. Remainder of the exam is unchanged. CONCLUSION: 1. Stable tubes and lines, as above. 2. Stable small bilateral pleural effusions and associated bibasilar airspace disease. Douglas Jean MD on August 25, 2017 at 5:28 Board Certified Radiologist. This report was verified electronically.
[2017-08-25 07:37] LABS: AUTOMATED NEUTROPHIL # 12.6 TH/MM3 (1.8-7.7); BASOPHIL # 0.1 TH/MM3 (0-0.2); BASOPHIL % 0.8 % (0.0-2.0); EOSINOPHIL # 0.1 TH/MM3 (0-0.4); EOSINOPHIL % 0.9 % (0.0-4.0); HEMATOCRIT 23.4 % (35.0-46.0); LYMPH % 12.7 % (9.0-44.0); MEAN CELL VOLUME 93.1 FL (80.0-100.0); MEAN CORPUSCULAR HEMOGLOBIN 31.6 PG (27.0-34.0); MEAN CORPUSCULAR HGB CONC 33.9 % (32.0-36.0); MEAN PLATELET VOLUME 9.4 FL (7.0-11.0); MONO % 5.7 % (0.0-8.0); MONOCYTE # 0.9 TH/MM3 (0-0.9); NEUT % 79.9 % (16.0-70.0); PLATELET COUNT 300 TH/MM3 (150-450); RED BLOOD COUNT 2.52 MIL/MM3 (4.00-5.30); RED CELL DISTRIBUTION WIDTH 13.6 % (11.6-17.2); WHITE BLOOD COUNT 15.8 TH/MM3 (4.0-11.0)
[2017-08-25] MEDS: SODIUM CHLORIDE 0.9% FLUSH 10 ML FLUSH IV FLUSH SCH ×2 (08:06→20:34)
[2017-08-25] MEDS: MULTIVITAMIN TAB PO SCH (08:07)
[2017-08-25] MEDS: HYDROCORTISONE SOD SUCCINATE 100 MG VIAL IV PUSH SCH (08:07)
[2017-08-25] MEDS: FERROUS SULFATE 300 MG /5ML UDC PO SCH ×2 (08:08→20:32)
[2017-08-25] MEDS: THIAMINE HCL 100 MG TAB PO SCH (08:08)
[2017-08-25] MEDS: DIGOXIN SOLUTION 0.125 MG/2.5 ML CUP PO SCH (08:08)
[2017-08-25] MEDS: FOLIC ACID 1 MG TAB PO SCH (08:08)
[2017-08-25] MEDS: ASPIRIN 81 MG CHEW TAB OG-TUBE SCH (08:08)
[2017-08-25] MEDS: FAMOTIDINE 40 MG/5 ML LIQ 50 ML BTL NG SCH ×2 (08:17→20:33)
[2017-08-25] MEDS: VANCOMYCIN INJ 1,250 MG in SODIUM CHLOR 0.9% 250 ML INJ 250 ML IV SCH (08:17)
[2017-08-25 08:41] LABS: ALBUMIN 2.1 GM/DL (3.4-5.0); ALKALINE PHOSPHATASE 47 U/L (45-117); ALT (GPT) 12 U/L (10-53); AST (GOT) 14 U/L (15-37); BICARBONATE 32.9 MEQ/L (21.0-32.0); BLOOD UREA NITROGEN 28 MG/DL (7-18); CALCIUM 7.9 MG/DL (8.5-10.1); CHLORIDE 105 MEQ/L (98-107); DIGOXIN 0.8 NG/ML (0.8-2.0); GLOMERULAR FILTRATION RATE 80 ML/MIN (>89); GLUCOSE,RANDOM 121 MG/DL (74-106); MAGNESIUM 1.7 MG/DL (1.5-2.5); PHOSPHORUS 2.1 MG/DL (2.5-4.9); SODIUM (NA) 146 MEQ/L (136-145); TOTAL BILIRUBIN ADULT 0.7 MG/DL (0.2-1.0); TOTAL PROTEIN 5.8 GM/DL (6.4-8.2)
[2017-08-25] MEDS ORDERED: PHARMACY ORDERED LAB ONE (08:45)
--- NOTE | 2017-08-25 09:03 | HHI.IDPN ---
Subjective Subjective Remarks Ms. Olson is an 82 year old female with past medical history of hypertension, possible sleep apnea, chronic neck pain, sciatica, alcohol abuse, arthritis, chronic rectal prolapse with bowel incontinence and anxiety. Patients daughter reports she was away for last week (normally she lives with Mom). She checked on her mom each night. The night prior to admission patient and daughter spoke to each other and no reported fever or change in behavior etc noted. No recent bounced checks, change in behavior, fires, falls or doors left unopened or such security concerns. She was found by her daughter lying in bed. On questioning patient was not found vomiting and no seizures. But patient was found in urine and feces. With this background patient presented to [facility] ER on when daughter arrived home to find patient laying on the bed covered in urine and feces. She was obtunded and 911 was called. Upon arrival to the ER: * VS - 100.2, HR 104, RR 18, BP 125/55, O2 sat 95% on room air. * WBC 10.2, hgb 13.8, hct 41.6, platelets 304, neutrophils 91.3% * BUN 52, creatinine 3.39, glucose 177, sodium 141, potassium 5.1, chloride 103 , GFR 13 * Lactic acid 6.3 * TCK 3855, CK-MB 113.6, CK-MB 2.9% * CT head - unremarkable * CXR - minimal basilar atelectasis, no effusion or pneumothorax [facility] for severe dehydration. acute renal failure, rhabdomyolysis, lactic acidosis, possible UTI, sepsis. Overnight she developed tachycardia, hypotension and hypoxemia. She was transferred to ICU placed on pressor support. She was started on heparin drip per PE protocol. Fluoroscope Operator was consulted for hypotension, septic shock. On non -rebreather with with oxygen saturation 90% and BP 79/50. Since admission she was intubated and placed on [facility] vent. Infectious disease consulted for evaluation and M'ment of Pneumonia and Colitis. Overnight events reviewed. D/W RN High grade fevers,last 2 temps normal. Old CL were out already. Has a new Left IJ CL in place. WBC down to 15.8 CXR worse infiltrates C diff negative Colonoscopy C/W severe ischemic colitis Creatinine ok On the vent - on fentanyl and precedex Antibiotics Current Medications Cefepime Flagyl Vanco x 1 dose 08/21 Medications (Trade) Dose Ordered Sig/Al Route Start Time Stop Time Status Last Admin (NS Flush) 2 ml UNSCH PRN IV FLUSH 08/15/17 02:00 08/21/17 11:15 (NS Flush) 2 ml BID IV FLUSH 08/15/17 09:00 08/22/17 09:45 (Narcan Inj) 0.4 mg UNSCH PRN IV PUSH 08/15/17 02:00 Metronidazole 100 ml @ 100 mls/hr Q6H IV 08/15/17 08:00 08/22/17 09:44 Miscellaneous Information Patient in critical care unit? Ass... [id number] .XX 08/15/17 06:15 08/15/17 06:15 (Romazicon Inj) 0.2 mg Q1M PRN IV PUSH 08/15/17 06:30 (Atrovent Neb) 0.5 mg Q2HR NEB PRN NEB 08/15/17 06:30 08/18/17 08:25 Fentanyl Citrate 250 ml @ 5 mls/hr TITRATE PRN IV 08/15/17 07:30 08/22/17 00:33 (Brethine Inj) 1 mg UNSCH PRN SQ 08/15/17 09:00 (Vitamin B1) 100 mg DAILY PO 08/15/17 12:00 08/22/17 09:44 (Theragran) 1 tab DAILY PO 08/15/17 12:00 08/22/17 09:44 (Folate) 1 mg DAILY PO 08/15/17 12:00 08/22/17 09:44 (Pepcid Inj) 10 mg Q12H IV PUSH 08/15/17 12:00 08/21/17 23:29 (Aspirin Chew) 81 mg DAILY OG-TUBE 08/15/17 19:00 08/22/17 09:44 (D50w (Vial) Inj) 50 ml UNSCH PRN IV PUSH 08/16/17 08:00 (Glucagon Inj) 1 mg UNSCH PRN OTHER 08/16/17 08:00 (NovoLIN R SUPPLEMENTAL SCALE) 1 Q4HR SQ 08/16/17 08:00 08/21/17 00:09 (SoluCORTEF INJ) 25 mg Q12H IV PUSH 08/17/17 18:00 08/22/17 06:25 (Lopressor) 25 mg Q12HR PO 08/17/17 09:00 Future Hold 08/19/17 08:46 (Heparin Inj) 5,000 units Q12HR SQ 08/17/17 09:00 08/22/17 09:45 Propofol 100 ml @ 2.19 mls/hr TITRATE PRN IV 08/17/17 18:30 08/21/17 10:24 Diltiazem HCl 125 mg/Sodium Chloride 125 ml @ 5 mls/hr TITRATE PRN IV 08/18/17 20:15 08/20/17 14:08 Phenylephrine HCl 40 mg/Dextrose 500 ml @ 30 mls/hr TITRATE PRN IV 08/19/17 10:30 08/20/17 00:09 (Brethine Inj) 1 mg UNSCH PRN SQ 08/19/17 10:30 Fat Emulsion Intravenous 250 ml @ 31.25 mls/ hr Q24H IV-CENTRAL 08/19/17 20:00 08/20/17 20:10 Vasopressin 40 units/Dextrose 100 ml @ 6 mls/hr [id number] IV 08/19/17 15:30 Parenteral Electrolytes 1,000 ml @ 42 mls/hr [id number] IV 08/19/17 16:00 08/21/17 11:20 Sodium Chloride 5.5 meq/Sodium Acetate 29.5 meq/ Potassium Chloride 20 meq/ Magnesium Chloride 5 meq/ Calcium Chloride 4.5 meq/ Multivitamins 10 ml/Folic Acid 1 mg/Insulin Human Regular 20 units/ Amino Acids/ Dextrose 1,042.3719 ml @ 42 mls/hr Q24H IV-CENTRAL 08/20/17 20:00 08/20/17 20:10 (Lanoxin Inj) 0.125 mg DAILY IV PUSH 08/21/17 09:00 08/22/17 09:45 (Tylenol) 650 mg Q4H PRN PO 08/21/17 14:15 08/21/17 22:54 Dexmedetomidine HCl 1000 mcg/ Sodium Chloride 250 ml @ 4.05 mls/hr TITRATE PRN IV 08/21/17 15:15 08/22/17 06:37 (Trandate Inj) 20 mg Q4H PRN IV PUSH 2/22/18 17:15 08/21/17 21:51 Cefepime HCl 2000 mg/Sodium Chloride 100 ml @ 200 mls/hr Q8H IV 08/21/17 18:00 08/22/17 09:42 Lines Line sites with no e.o infections. Past Medical History reviewed Allergies: Coded Allergies: No Known Allergies (Verified Allergy, Unknown, 08/15/17) Objective . Vital Signs Date Time Temp Pulse Resp B/P (MAP) Pulse Ox O2 Delivery O2 Flow Rate FiO2 08/25/17 06:45 95 35 08/25/17 06:45 35 08/25/17 06:00 93 08/25/17 04:00 40 08/25/17 04:00 96 08/25/17 04:00 99.1 96 16 113/56 (75) 100 08/25/17 03:56 100 40 08/25/17 02:00 90 08/25/17 00:15 100 40 08/25/17 00:15 85 77/40 08/25/17 00:00 95 08/25/17 00:00 40 08/25/17 00:00 99.7 95 22 76 08/24/17 22:00 85 08/24/17 22:00 101.1 85 18 96/54 (68) 93 08/24/17 20:00 86 08/24/17 20:00 40 08/24/17 20:00 100.9 86 16 105/60 (75) 96 08/24/17 19:43 95 40 08/24/17 18:00 83 08/24/17 17:00 79 08/24/17 16:22 100 75 08/24/17 16:00 86 08/24/17 16:00 50 08/24/17 16:00 101.1 86 16 115/59 (77) 100 08/24/17 15:00 81 08/24/17 14:00 91 08/24/17 13:00 82 08/24/17 12:00 101.2 93 22 100/58 (72) 91 08/24/17 12:00 93 08/24/17 12:00 50 08/24/17 11:13 94 40 08/24/17 11:00 92 08/24/17 10:00 88 08/24/17 09:00 90 . Laboratory Tests Test 08/23/17 10:59 08/24/17 03:51 08/25/17 05:50 White Blood Count 17.7 TH/MM3 20.2 TH/MM3 15.8 TH/MM3 Red Blood Count 3.45 MIL/MM3 2.56 MIL/MM3 2.52 MIL/MM3 Hemoglobin 10.9 GM/DL 8.2 GM/DL 8.0 GM/DL Hematocrit 32.0 % 24.3 % 23.4 % Mean Corpuscular Volume 92.9 FL 94.7 FL 93.1 FL Mean Corpuscular Hemoglobin 31.6 PG 32.1 PG 31.6 PG Mean Corpuscular Hemoglobin Concent 34.0 % 33.9 % 33.9 % Red Cell Distribution Width 13.9 % 13.8 % 13.6 % Platelet Count 317 TH/MM3 260 TH/MM3 300 TH/MM3 Mean Platelet Volume 8.6 FL 8.6 FL 9.4 FL Neutrophils (%) (Auto) 85.9 % 84.6 % 79.9 % Lymphocytes (%) (Auto) 5.3 % 8.3 % 12.7 % Monocytes (%) (Auto) 6.8 % 6.7 % 5.7 % Eosinophils (%) (Auto) 0.1 % 0.1 % 0.9 % Basophils (%) (Auto) 1.9 % 0.3 % 0.8 % Neutrophils # (Auto) 15.2 TH/MM3 17.1 TH/MM3 12.6 TH/MM3 Lymphocytes # (Auto) 0.9 TH/MM3 1.7 TH/MM3 2.0 TH/MM3 Monocytes # (Auto) 1.2 TH/MM3 1.3 TH/MM3 0.9 TH/MM3 Eosinophils # (Auto) 0.0 TH/MM3 0.0 TH/MM3 0.1 TH/MM3 Basophils # (Auto) 0.3 TH/MM3 0.1 TH/MM3 0.1 TH/MM3 CBC Comment AUTO DIFF AUTO DIFF DIFF FINAL Differential Total Cells Counted 100 Neutrophils % (Manual) 76 % Band Neutrophils % 9 % Lymphocytes % 8 % Monocytes % 7 % Neutrophils # (Manual) 15.0 TH/MM3 Differential Comment FINAL DIFF MANUAL AUTO DIFF CONFIRMED Toxic Granulation 1+ 1+ Platelet Estimate NORMAL NORMAL Platelet Morphology Comment NORMAL NORMAL Laboratory Tests Test 08/23/17 10:59 08/24/17 03:51 08/24/17 22:30 08/25/17 05:55 Blood Urea Nitrogen 28 MG/DL 28 MG/DL 28 MG/DL Creatinine 0.67 MG/DL 0.64 MG/DL 0.70 MG/DL Random Glucose 123 MG/DL 116 MG/DL 121 MG/DL Calcium Level 7.5 MG/DL 7.2 MG/DL 7.9 MG/DL Phosphorus Level 2.4 MG/DL 2.4 MG/DL 2.1 MG/DL Magnesium Level 2.0 MG/DL 1.9 MG/DL 1.7 MG/DL Sodium Level 148 MEQ/L 150 MEQ/L 146 MEQ/L Potassium Level 3.8 MEQ/L 3.4 MEQ/L 3.4 MEQ/L 2.7 MEQ/L Chloride Level 112 MEQ/L 114 MEQ/L 105 MEQ/L Carbon Dioxide Level 29.0 MEQ/L 30.7 MEQ/L 32.9 MEQ/L Anion Gap 7 MEQ/L 5 MEQ/L 8 MEQ/L Estimat Glomerular Filtration Rate 84 ML/MIN 89 ML/MIN 80 ML/MIN Total Bilirubin 0.5 MG/DL 0.7 MG/DL Direct Bilirubin 0.1 MG/DL Indirect Bilirubin 0.4 MG/DL Aspartate Amino Transf (AST/SGOT) 23 U/L 14 U/L Alanine Aminotransferase (ALT/SGPT) 18 U/L 12 U/L Alkaline Phosphatase 57 U/L 47 U/L Total Protein 5.5 GM/DL 4.9 GM/DL 5.8 GM/DL Albumin 1.6 GM/DL 2.1 GM/DL Lipase 350 U/L Protein Corrected Calcium 8.4 MG/DL Total Creatine Kinase 69 U/L Microbiology Date/Time Source Procedure Growth Status 08/23/17 10:57 Blood Line Aerobic Blood Culture - Preliminary NO GROWTH IN 1 DAY Resulted 08/23/17 10:57 Blood Line Anaerobic Blood Culture - Preliminary NO GROWTH IN 1 DAY Resulted Imaging Last Impressions Abdomen X-Ray 08/21/17 0600 Signed Impressions: Service Date/Time: July 03:35 - CONCLUSION: The bowel gas pattern remains fairly unremarkable. Jl Stanley MD Chest X-Ray 08/21/17 0000 Signed Impressions: Service Date/Time: July 19:39 - CONCLUSION: 1. Stable tubes and lines, as above. 2. Worsening bilateral lower lung zone pleural parenchymal disease. Douglas Jean MD Lumbar Puncture Fluoroscopy 08/15/17 0000 Signed Impressions: Service Date/Time: Tuesday, August 15, 2017 15:36 - CONCLUSION: 1. Uncomplicated fluoroscopically guided lumbar puncture. 2. Please note, requested opening pressures were not obtained due to technical difficulties. Shashi Moreno MD Brain MRI 08/15/17 0000 Signed Impressions: Service Date/Time: Tuesday, August 15, 2017 16:57 - CONCLUSION: 1. 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 2. Mild stenosis in the upper cervical spine as above. Esau Martell MD Abdomen/Pelvis CT 08/15/17 0000 Signed Impressions: Service Date/Time: Wednesday, August 16, 2017 00:25 - CONCLUSION: 1. Abnormal thickening of the descending colonic wall and the possibility of colitis should be entertained. There is also thickening of distal ileal wall which may be inflammatory as well. 2. There is mild anasarca with edema or inflammatory changes within the bilateral paracolic gutters extending down into the pelvis. 3. Small bilateral pleural effusions and bibasilar atelectasis and/or infiltrate. 4. Prominent ileocecal valve and possibility of lipoma at this site is not excluded. Josseline Villagomez MD Abdomen Ultrasound 08/15/17 0000 Signed Impressions: Service Date/Time: Tuesday, August 15, 2017 10:40 - CONCLUSION: 1. No abnormality is identified to explain the clinical symptoms. There is no hydronephrosis. 2. The liver is normal in size and echotexture. Adan Machuca MD Head CT 08/14/172231 Signed Impressions: Service Date/Time: July 22:54 - CONCLUSION: Unremarkable study. Josseline Villagomez MD Physical Exam GENERAL: Awake, following simple commands, in no apparent distress. SKIN: No rashes, ecchymoses or lesions. Warm and dry. HEAD: Atraumatic. Normocephalic. No temporal or scalp tenderness. EYES: Pupils equal round and reactive. Extraocular motions intact. No scleral icterus. No injection or drainage. Has mild scleral edema ENT: Intubated. Moist oral mucosa, no nasal drainage NECK: Trachea midline. Supple, nontender, CARDIOVASCULAR: + murmur, no gallops, rub RESPIRATORY: Bilateral rhonchi GASTROINTESTINAL: Abdomen distended, not tender, hypoactive bowels sounds, no guarding or rebound. MUSCULOSKELETAL: Extremities without clubbing, cyanosis. Has edema hands. No calf tenderness. Negative Homans sign bilaterally. NEUROLOGICAL: Opens eyes spontaneously, moves all 4 extremities. Psych: Cooperative IV line sites with no e.o infection. Assessment & Plan Remarks Assessment and Plan Fungemia in setting of bilateral UE DVT will treat as Septic thrombophlebitis. Sepsis. Pneumonia. sputum normal resp juancarlos. Acute resp failure on vent Acute metabolic encephalopathy: appears resolving. Alcohol abuse: at risk for withdrawal. Acute rhabdomyolysis: ? seizures. Acute renal failure: sepsis, prerenal, rhabdomyolysis. Colitis clinically and radiologically ; likely ischemic - C diff negative Recs: Continue Cefepime IV reduce dose to q12hrs as no PSAE. Continue Flagyl for aspiration PNA and Colitis. DC IV Vanco Continue Micafungin IV (pending ID of yeast). Dw on Heparin gtt to treat bilateral UE DVT. If persistent fungemia will get repeat limited 2D ECHO. Will get Opthalm consult to r/o fungal endopthalmitis. Follow new C/S Follow dariusz D/W RN Spoke with daughter at bedside - updated on current work-up and treatment Piedad Corea MD Aug 25, 2017 09:03
--- NOTE | 2017-08-25 09:17 | HHI.CCPN ---
Subjective Remarks/Hospital Course Patient is an 82-year-old female with past medical history of irritable bowel syndrome, hypertension, arthritis, diverticulitis who presented to the [facility] ED after she was found lying on her bed with urine and feces all around her bed. In addition, the patient was altered and obtunded. Most of the history was obtained from reviewing the medical records. Her laboratory data showed acute renal failure with BUN of 52, creatinine 3.39 and lactic acidosis with a lactic acid level of 6.3. In addition, the patient was in rhabdomyolysis with elevated CK at 3855. She was admitted under the hospitalist service; however, a [facility] was called due to worsening mental status, hypertension and hypoxemia. She was transferred to [facility] [place] and critical care medicine was consulted for critical care management. When seen, the patient was lethargic, not following any commands, hypotensive. She was subsequently intubated by myself and a right internal jugular central line was placed for hemodynamic monitoring. ABG post intubation showed a pH of 7.31, co2 of 30, pA02 of 117, bicarbonate 15 and saturation of 96% on PRVC rate of 14, tidal volume 350 with IT:1, PEEP 5 and FIO2 of 100%. She was given two liter boluses of normal saline and placed on a bicarbonate drip. Her lactic acid level is trending down and is currently 3.4 from 6.3 on arrival. In addition, her renal function is improving with IV hydration. Her creatinine level is 2.29 from 3.39. Due to hypotension, Levophed was started. A CT scan of the brain in the emergency department was unremarkable. Her initial chest x-ray showed minimal basilar atelectasis, no effusions or pneumothoraces. According to the patient's family, the patient has been intermittently binge drinking. In addition, they report her having diarrhea for a few days. She had a low-grade fever with a temperature of 100.2 last night. 08/16 Patient is sedated with Fentanyl drip intubated and on Levophed 5 mics. On Bicarb drip. MRI brain yesterday showed small lacunar infarcts in left cerebellar hemisphere and right parietal lobe. Lp showed clear CSF, 17 wbc. Afebrile.Renal function worse today with Cr: 2.64 from 2.29 08/17 Patient remains sedated and intubated. On Bicarb drip. Off Levophed renal function slightly worse today with Cr: 2.82 from 2.64 and UOP: 550 ml in 24 hrs 08/18 Patient bit through ETT overnight s/p new ETT placement using tube exchanger. Sedated with Diprivan and Fentanyl. Afebrile. Renal function is improving with Cr: 1.97 from 2.82. On Bicarb drip. Tube feeds held for possible colonoscopy today. 08/19: Remains sedated, orally intubated on mechanical ventilation. Colonoscopy done yesterday revealed ischemic colitis. Has been evaluated by general surgery. Patient went into A. fib with RVR last night and was started on a Cardizem drip. On Levophed for hypotension 08/20: Remains sedated, orally intubated on mechanical ventilation. Started on TPN on 08/19. Cardizem drip turned off this morning. Received 1 dose of digoxin yesterday. 08/21: Remains sedated, orally intubated on mechanical ventilation. On TPN. Ordered Precedex as well as digoxin daily. Starting trophic feeds today. 08/22 Patient remains intubated on Precedex and Fentanyl infusion for sedation. afebrile. 08/23 WBC up to 17.7. Temp max 102.2. Blood culture sent today peripherally ( labelled as line draw initially but was not drawn from a line, lab notified to re-label). Tolerating trophic feeds. Awake and on CPAP 10/5 with RSBI 50s, became labored and desat with 5/5. Denies abdominal pain. Subjective: 08/24: Tmax 102.7 overnight. Currently 100.6. Noted yeast growing from blood culture 08/21. Remains in atrial fibrillation. Potassium currently been replaced. Currently only has once peripheral IV access. Will need central line placed later this afternoon. 08/25 Patient is awake and alert on CPAP trials. T: 101.1 last night. On Heparin and Bumex drips Objective Vital Signs Date Time Temp Pulse Resp B/P (MAP) Pulse Ox O2 Delivery O2 Flow Rate FiO2 08/25/17 06:45 95 35 08/25/17 06:00 93 08/25/17 04:00 99.1 16 113/56 (75) Intake and Output 2/26/18 2/26/18 2/27/18 08:00 16:00 00:00 Intake Total 1220 ml Output Total 3500 ml Balance -2280 ml Result Diagram: 08/25/17 0550 08/25/17 0555 Other Results Laboratory Tests Test 08/24/17 22:30 08/25/17 05:50 08/25/17 05:55 08/25/17 08:00 Potassium Level 3.4 MEQ/L 2.7 MEQ/L White Blood Count 15.8 TH/MM3 Red Blood Count 2.52 MIL/MM3 Hemoglobin 8.0 GM/DL Hematocrit 23.4 % Mean Corpuscular Volume 93.1 FL Mean Corpuscular Hemoglobin 31.6 PG Mean Corpuscular Hemoglobin Concent 33.9 % Red Cell Distribution Width 13.6 % Platelet Count 300 TH/MM3 Mean Platelet Volume 9.4 FL Neutrophils (%) (Auto) 79.9 % Lymphocytes (%) (Auto) 12.7 % Monocytes (%) (Auto) 5.7 % Eosinophils (%) (Auto) 0.9 % Basophils (%) (Auto) 0.8 % Neutrophils # (Auto) 12.6 TH/MM3 Lymphocytes # (Auto) 2.0 TH/MM3 Monocytes # (Auto) 0.9 TH/MM3 Eosinophils # (Auto) 0.1 TH/MM3 Basophils # (Auto) 0.1 TH/MM3 CBC Comment DIFF FINAL Differential Comment Blood Urea Nitrogen 28 MG/DL Creatinine 0.70 MG/DL Random Glucose 121 MG/DL Total Protein 5.8 GM/DL Albumin 2.1 GM/DL Calcium Level 7.9 MG/DL Phosphorus Level 2.1 MG/DL Magnesium Level 1.7 MG/DL Alkaline Phosphatase 47 U/L Aspartate Amino Transf (AST/SGOT) 14 U/L Alanine Aminotransferase (ALT/SGPT) 12 U/L Total Bilirubin 0.7 MG/DL Sodium Level 146 MEQ/L Chloride Level 105 MEQ/L Carbon Dioxide Level 32.9 MEQ/L Anion Gap 8 MEQ/L Estimat Glomerular Filtration Rate 80 ML/MIN Total Creatine Kinase 69 U/L Digoxin Level 0.8 NG/ML Blood Gas Puncture Site LT RADIAL Blood Gas Patient Temperature 98.6 Blood Gas HCO3 31 mmol/L Blood Gas Base Excess 8.0 mmol/L Blood Gas Oxygen Saturation 96 % Arterial Blood pH 7.56 Arterial Blood Partial Pressure CO2 35 mmHg Arterial Blood Partial Pressure O2 102 mmHg Arterial Blood Oxygen Content 10.8 Vol % Arterial Blood Carboxyhemoglobin 1.0 % Arterial Blood Methemoglobin 1.1 % Blood Gas Hemoglobin 7.9 G/DL Oxygen Delivery Device VENTILATOR Blood Gas Ventilator Setting CPAP 5/10PS Blood Gas Inspired Oxygen 35 % Test 08/25/17 08:49 Imaging Last Impressions Chest X-Ray 08/24/17 1741 Signed Impressions: Service Date/Time: Thursday, August 24, 2017 17:53 - CONCLUSION: Left central line in place. No pneumothorax. Samuel Peralta MD Abdomen/Pelvis CT 08/23/17 1426 Signed Impressions: Service Date/Time: Wednesday, August 23, 2017 22:50 - CONCLUSION: 1. Suspected mild diffuse colitis, nonspecific but presumably infectious or inflammatory. No obstruction or abscess. 2. Trace ascites about the same there is worsening anasarca and worsening pleural effusions and consolidation of both lung bases. 3. Tiny nonobstructing stone of the right kidney and a generally benign appearing cyst lower pole the left kidney. No evidence of obstructive uropathy or other etiology for acute renal failure. 4. Atherosclerotic aorta. No aneurysm. Adan Nunes MD Upper Extremity Ultrasound 08/23/17 0000 Signed Impressions: Service Date/Time: Wednesday, August 23, 2017 16:25 - CONCLUSION: Bilateral upper extremity DVT as described above. Samuel Peralta MD Lower Extremity Ultrasound 08/23/17 0000 Signed Impressions: Service Date/Time: Wednesday, August 23, 2017 15:50 - CONCLUSION: 1. There is incomplete compression of the left common femoral vein raising suspicion for nonocclusive thrombus. This vessel, however, still demonstrates normal Doppler blood flow and respiratory variability. 2. The remaining veins of the left lower extremity are patent and the entire right lower extremity is patent without thrombus. Adan Machuca MD Abdomen X-Ray 08/21/17 0600 Signed Impressions: Service Date/Time: July 03:35 - CONCLUSION: The bowel gas pattern remains fairly unremarkable. Jl Stanley MD Lumbar Puncture Fluoroscopy 08/15/17 0000 Signed Impressions: Service Date/Time: Tuesday, August 15, 2017 15:36 - CONCLUSION: 1. Uncomplicated fluoroscopically guided lumbar puncture. 2. Please note, requested opening pressures were not obtained due to technical difficulties. Shashi Moreno MD Brain MRI 08/15/17 0000 Signed Impressions: Service Date/Time: Tuesday, August 15, 2017 16:57 - CONCLUSION: 1. 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 2. Mild stenosis in the upper cervical spine as above. Esau Martell MD Abdomen Ultrasound 08/15/17 0000 Signed Impressions: Service Date/Time: Tuesday, August 15, 2017 10:40 - CONCLUSION: 1. No abnormality is identified to explain the clinical symptoms. There is no hydronephrosis. 2. The liver is normal in size and echotexture. Adan Machuca MD Head CT 08/14/172 Signed Impressions: Service Date/Time: July 22:54 - CONCLUSION: Unremarkable study. Josseline Villagomez MD Objective Remarks GENERAL: 82-year-old female currently resting in bed, nodding and shaking her head to questions appropriately and following commands. SKIN: Warm and dry. Generalized Anasarca HEAD: Normocephalic. EYES: Pupils equal and reactive bilaterally about 3 mm. No scleral icterus. No injection or drainage. NECK: Supple, trachea midline. No JVD or lymphadenopathy. Orally intubated. Right IJ site without erythema CARDIOVASCULAR: IRR. S1, S2 no S4. No murmurs appreciated RESPIRATORY: Diminished breath sounds bilateral posterior bases. No wheezing appreciated. : Doe catheter in place with yellow urine output GASTROINTESTINAL: Abdomen soft, non-tender, minimally distended. Bowel sounds hypoactive but present. No guarding or rigidity MUSCULOSKELETAL: No significant peripheral edema. Resolving mottling bilateral fingers. 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 Awake and alert Monitor neuro status. Oxycodone 5 mg every 6 hours scheduled in attempt to wean off ventilator UDS is negative 08/15: CT brain negative for acute intracranial process MRI brain: Small lacunar infarcts in left cerebellar hemisphere and right parietal lobe EEG: Severe encephalopathy Continue thiamine, multivitamin and folic acid daily. Repeat EEG 08/21.- generalized slowing, no epileptiform features Neuro is following- Dr. Danielle LP showed clear CSF, 17 WBC, TP:45.2 Previously on chlordiazepoxide 25 mg 3 times a day Pulm: Acute respiratory failure Bilateral pleural effusions PRVC 16/450/07/04/69 Ventilator bundle Albuterol/ipratropium aerosols every 6 hours with albuterol aerosols every 2 hours. Dyspnea Continue with vent support and maintain sats> 92%. Continue with SBT possible extubation today s/p new ETT placement on 08/18 using tube exchanger ( patient bit through ETT) We'll start on bumetanide drip at 0.25 mg an hour with albumin boluses 25%50 cc every 6 hours 4 08/23 - CT abdomen/pelvis revealed anasarca, small bilateral pleural effusions with diffuse colitis. 3 mm right renal stone and multiple left-sided renal cysts CV: Atrial fibrillation, previously RVR now rate controlled. Systolic heart failure unknown if acute or chronic Monitor HR and BP keep MAP>65mmHg. On Digoxin 0.125 mg daily. Digoxin level 0.8 today Troponin is trended down. Echo showed EF 45-50% Taper steroids-d/c hydrocortisone 25mg IV daily after today's dose Holding home medication Prinivil 20 mg by mouth daily Continue aspirin 81 mg by mouth daily/home medication Renal/FEN/: Acute kidney injury, resolved Lactic acidemia, resolved Rhabdomyolysis resolved Hypernatremia Hypokalemia Hypophosphatemia Right-sided nephrolithiasis/nonobstructing Left renal cyst Monitor renal function, intake and output and avoid nephrotoxins. Renal function gradually improving. On Bumex drip 0..25mg/hr with UOP: 6.3 L in 24 hrs d/c bumex drip today, need K, Phos replacement K:2.7 Renal has followed-Dr. Figueroa, US abdomen: No hydronephrosis On free water 250ml Q8 CT Endo/pelvis revealed nonobstructing right-sided nephrolithiasis and left renal cyst. GI: Ischemic colitis Severe acute on Chronic protein energy malnutrition AST elevation secondary to alcohol use Internal and external hemorrhoids On famotidine 20 mg twice a day for GI prophylaxis. Monitor LFT's( trending down ) US liver: No abnormalities identified tube feeds-on tube feeds with Glucerna for trophic feeds at 20 cc/h GI is following- colonoscopy showed diffuse colitis in the sigmoid colon and descending colon; Necrotic, dusky appearing mucosa. Consistent with severe ischemic colitis. General surgery, Dr. Guadalupe -plan to treat conservatively unless patient worsens clinically. Repeat CT abdomen and pelvis 08/23 as per discussion under ID On trophic feeds per general surgery. Will assess nutritional plan after results of imaging. ID: Septic shock resolved UTI Ischemic colitis Fungemia Abx per ID (Cefepime, metronidazole, micafungin) Dr. Davis. Opth consult r/o endophthalmitis in setting of fungemia Central line was removed 08/22. CT abdomen/pelvis: thickening of the descending colonic wall and the possibility of colitis should be entertained. There is also thickening of distal ileal wall which may be inflammatory as well. Pertinent cultures 08/23 - blood culture by line (actually peripheral) - pending 08/21 - blood culture - no growth 08/21 - sputum - no growth 08/21 - - no growth 08/21 - blood culture - Yeast 08/15 - CSF - negative 08/15 - sputum - no growth 08/14 - blood cultures 2 and UA - no growth C-diff PCR is negative, stool studies negative s/p LP showed clear CSF, 17 WBC, TP:45.2, HSV DNA PCR neg Endo: Hyperglycemia of critical illness/steroid SSI with Novulin R medium with Accu-Chek every 4 hours for glycemic control. TSH: 1.15. Heme: Leukocytosis Normocytic anemia B/L UE DVT Possible left common femoral vein DVT Left cephalic/basilic to professional and right superficial cephalic thrombus Monitor CBC, coags- on Heparin drip Restart iron sulfate 300 mg by tube twice a day GI prophylaxis with famotidine and DVT prophylaxis with SCDs, Heparin drip Lines: Peripheral IV. Right IJ Central line removed 08/22. , Right radial Art line placed 08/15, has been removed 08/18 Discuss with daughter at bedside and all questions answered Level II follow-up Don Youngblood MD Aug 25, 2017 09:17
[2017-08-25] MEDS ORDERED: RESP: ALBUTEROL 2.5 MG/IPRATROPIUM 0.5 MG NEB (PRN) NEB (10:00)
--- NOTE | 2017-08-25 10:49 | HHI.PR ---
cc: Rolo Guadalupe MD Subjective Subjective Notes Sitting up in bed--intubated but able to answer yes and no questions Daughter at bedside ---eager to for her Mother to get extubated Objective Vitals/I&O Vital Signs Date Time Temp Pulse Resp B/P (MAP) Pulse Ox O2 Delivery O2 Flow Rate FiO2 08/25/17 09:36 98 Nasal Cannula 3.00 08/25/17 06:45 35 08/25/17 06:00 93 08/25/17 04:00 99.1 16 113/56 (75) Labs Laboratory Tests Test 08/24/17 22:30 08/25/17 05:50 08/25/17 05:55 08/25/17 08:00 Potassium Level 3.4 2.7 White Blood Count 15.8 Red Blood Count 2.52 Hemoglobin 8.0 Hematocrit 23.4 Mean Corpuscular Volume 93.1 Mean Corpuscular Hemoglobin 31.6 Mean Corpuscular Hemoglobin Concent 33.9 Red Cell Distribution Width 13.6 Platelet Count 300 Mean Platelet Volume 9.4 Neutrophils (%) (Auto) 79.9 Lymphocytes (%) (Auto) 12.7 Monocytes (%) (Auto) 5.7 Eosinophils (%) (Auto) 0.9 Basophils (%) (Auto) 0.8 Neutrophils # (Auto) 12.6 Lymphocytes # (Auto) 2.0 Monocytes # (Auto) 0.9 Eosinophils # (Auto) 0.1 Basophils # (Auto) 0.1 CBC Comment DIFF FINAL Differential Comment Blood Urea Nitrogen 28 Creatinine 0.70 Random Glucose 121 Total Protein 5.8 Albumin 2.1 Calcium Level 7.9 Phosphorus Level 2.1 Magnesium Level 1.7 Alkaline Phosphatase 47 Aspartate Amino Transf (AST/SGOT) 14 Alanine Aminotransferase (ALT/SGPT) 12 Total Bilirubin 0.7 Sodium Level 146 Chloride Level 105 Carbon Dioxide Level 32.9 Anion Gap 8 Estimat Glomerular Filtration Rate 80 Total Creatine Kinase 69 Digoxin Level 0.8 Blood Gas Puncture Site LT RADIAL Blood Gas Patient Temperature 98.6 Blood Gas HCO3 31 Blood Gas Base Excess 8.0 Blood Gas Oxygen Saturation 96 Arterial Blood pH 7.56 Arterial Blood Partial Pressure CO2 35 Arterial Blood Partial Pressure O2 102 Arterial Blood Oxygen Content 10.8 Arterial Blood Carboxyhemoglobin 1.0 Arterial Blood Methemoglobin 1.1 Blood Gas Hemoglobin 7.9 Oxygen Delivery Device VENTILATOR Blood Gas Ventilator Setting CPAP 5/10PS Blood Gas Inspired Oxygen 35 Test 08/25/17 08:48 08/25/17 08:49 Activated Partial Thromboplast Time 67.8 Vancomycin Level Trough 13.3 Date/Time Source Procedure Growth Status 08/23/17 10:57 Blood Line Aerobic Blood Culture - Preliminary NO GROWTH IN 1 DAY Resulted 08/23/17 10:57 Blood Line Anaerobic Blood Culture - Preliminary NO GROWTH IN 1 DAY Resulted 08/15/17 15:56 Cerebral Spinal Fluid Lumbar Puncture Gram Stain - Final Complete 08/15/17 15:56 Cerebral Spinal Fluid Lumbar Puncture CSF Culture - Final NO GROWTH IN 72 HOURS Complete 08/15/17 02:28 Stool Stool Cryptosporidium Exam Pending Ordered 08/15/17 02:28 Stool Stool Giardia Antigen (MARCIA) Pending Ordered 08/21/17 15:20 Sputum Endotracheal Gram Stain - Final Complete 08/21/17 15:20 Sputum Endotracheal Sputum Culture - Final NO GROWTH IN 48 HOURS. Complete 08/21/17 13:45 Urine Catheterized Urine Urine Culture - Final NO GROWTH IN 48 HOURS. Complete Cardiovascular: Regular Lungs: Clear Abdomen: Non-distended, Non-tender Extremities: Other (mild peripheral edema ) A/P Assessment and Plan 82 year old female with ischemic colitis -WBC increased over the weekend; no trending back down -Heparin drip for DVT -Central line replaced -Repeat CT abd/pelvis---shows mild colitis -Vent per CCM; on CPAP ---possible extubation today -Continue medical management at this time -Discussed with patient's daughter at bedside Attending Statement The exam, history, and the medical decision-making described in the above note were completed with the assistance of the mid-level provider. I reviewed and agree with the findings presented. I attest that I had a [id number] encounter with the patient on the same day, and personally performed and documented my assessment and findings in the medical record. abdominal exam stable, no peritonitis, mildly distended but soft ischemic colitis improving Yumiko Flores/First Amina MOLINA Aug 25, 2017 10:49 Rolo Guadalupe MD Aug 29, 2017 12:46
[2017-08-25] MEDS: HEPARIN-D5W 25,000 U/250 ML 250 ML IV PRN (10:54)
[2017-08-25] MEDS: MICAFUNGIN INJ 100 MG in SODIUM CHLORIDE 0.9% INJ 100 ML IV SCH (10:56)
--- NOTE | 2017-08-25 13:51 | HHI.HCPN ---
Reason for visit a. To assist with evaluation and management of symptoms including: dyspnea, weakness. b. To assist medical decision maker(s) with: better understanding of current medical conditions; weighing benefits/burdens of medical treatment options; making medical treatment decisions. . Subjective/Interval History Patient seen and examined in ICU. DaughterNicole at bedside. Discussed with Dr. Whitlock. Repeat CT abd/pelvis 08/23/17 revealed mild colitis, trace ascites , worsening anasarca, nonobstructing kidney stone, atherosclerotic aorta. Patient was medically extubated this morning. Tolerating oxygen via NC 3 LPM. Her voice is soft and difficult to understand. Off all sedation. Afebrile. Vital signs stable. WBC 15.8, hemoglobin 8.0, platelet 300. Albumin remains low at 2.1. 08/21/17 peripheral blood culture + yeast on micafungin. 08/23 blood culture no growth 2 days. ID following. Chest xray stable small bilateral pleural effusions and associated bibasilar airspace disease. Speech eval recommended puree diet with nectar thickened liquids. Introduced myself and role to patient, will attempt to review hospital course and clarify goals with patient in the coming days. . Advance Directives Living Will: Never completed Health Care Surrogate: Never completed Durable Power of Plastic Cnc Machine Operator: Never completed Advance Directive Specifics Health Care Surrogate(s): Living Will copy obtained. According to her Living Will she names daughterSilvia as primary HCS and son Jl Olson as alternate HCS. . Documented care wishes: Standard Living Will on chart. . Significant change in goals: FULL CODE. Goals remain aggressive at this time. Will attempt to clarify goals with patient directly in the coming day when she is better able to communicate. . Objective Vital Signs Date Time Temp Pulse Resp B/P (MAP) Pulse Ox O2 Delivery O2 Flow Rate FiO2 08/25/17 09:36 98 Nasal Cannula 3.00 08/25/17 09:36 98 Nasal Cannula 3 08/25/17 06:45 95 35 08/25/17 06:45 35 08/25/17 06:00 93 08/25/17 04:00 40 08/25/17 04:00 96 08/25/17 04:00 99.1 96 16 113/56 (75) 100 08/25/17 03:56 100 40 08/25/17 02:00 90 08/25/17 00:15 100 40 08/25/17 00:15 85 77/40 08/25/17 00:00 95 08/25/17 00:00 40 08/25/17 00:00 99.7 95 22 76 08/24/17 22:00 85 08/24/17 22:00 101.1 85 18 96/54 (68) 93 08/24/17 20:00 86 08/24/17 20:00 40 08/24/17 20:00 100.9 86 16 105/60 (75) 96 08/24/17 19:43 95 40 08/24/17 18:00 83 08/24/17 17:00 79 08/24/17 16:22 100 75 08/24/17 16:00 86 08/24/17 16:00 50 08/24/17 16:00 101.1 86 16 115/59 (77) 100 08/24/17 15:00 81 08/24/17 14:00 91 Intake & Output 08/25/17 08/25/17 07:00 19:00 Intake Total 1520 ml Output Total 3500 ml Balance -1980 ml Intake IV Total 800 ml Tube Feeding 220 ml Other 500 ml Output Urine Total 3500 ml # Bowel Movements 1 Physical Exam CONSTITUTIONAL/GENERAL: This is a well nourished patient, in no apparent distress. TUBES/LINES/DRAINS: NC, Central line, PIV, Doe, SCDs. SKIN: No jaundice, rashes, or lesions. Ecchymoses on upper extremities. No wounds seen anteriorly. Skin temperature appropriate. Not diaphoretic. CARDIOVASCULAR: heart rate 90s, S1, S2. RESPIRATORY/CHEST: Symmetric, unlabored respirations on NC. Clear to auscultation. GASTROINTESTINAL: Abdomen soft, distended. Hypoactive bowel sounds. GENITOURINARY: Without palpable bladder distension. Doe catheter in place. MUSCULOSKELETAL: Extremities with edema. No mottling or clubbing. NEUROLOGICAL: Awake and alert, generalized weakness. Follows commands, answers questions with weak voice. PSYCHIATRIC: denies anxiety. . Diagnostic Tests Laboratory Laboratory Tests Test 08/22/17 18:00 08/23/17 10:59 08/24/17 03:51 08/24/17 03:52 Digoxin Level 1.4 NG/ML (0.8-2.0) White Blood Count 17.7 TH/MM3 (4.0-11.0) 20.2 TH/MM3 (4.0-11.0) Red Blood Count 3.45 MIL/MM3 (4.00-5.30) 2.56 MIL/MM3 (4.00-5.30) Hemoglobin 10.9 GM/DL (11.6-15.3) 8.2 GM/DL (11.6-15.3) Hematocrit 32.0 % (35.0-46.0) 24.3 % (35.0-46.0) Mean Corpuscular Volume 92.9 FL (80.0-100.0) 94.7 FL (80.0-100.0) Mean Corpuscular Hemoglobin 31.6 PG (27.0-34.0) 32.1 PG (27.0-34.0) Mean Corpuscular Hemoglobin Concent 34.0 % (32.0-36.0) 33.9 % (32.0-36.0) Red Cell Distribution Width 13.9 % (11.6-17.2) 13.8 % (11.6-17.2) Platelet Count 317 TH/MM3 (150-450) 260 TH/MM3 (150-450) Mean Platelet Volume 8.6 FL (7.0-11.0) 8.6 FL (7.0-11.0) Neutrophils (%) (Auto) 85.9 % (16.0-70.0) 84.6 % (16.0-70.0) Lymphocytes (%) (Auto) 5.3 % (9.0-44.0) 8.3 % (9.0-44.0) Monocytes (%) (Auto) 6.8 % (0.0-8.0) 6.7 % (0.0-8.0) Eosinophils (%) (Auto) 0.1 % (0.0-4.0) 0.1 % (0.0-4.0) Basophils (%) (Auto) 1.9 % (0.0-2.0) 0.3 % (0.0-2.0) Neutrophils # (Auto) 15.2 TH/MM3 (1.8-7.7) 17.1 TH/MM3 (1.8-7.7) Lymphocytes # (Auto) 0.9 TH/MM3 (1.0-4.8) 1.7 TH/MM3 (1.0-4.8) Monocytes # (Auto) 1.2 TH/MM3 (0-0.9) 1.3 TH/MM3 (0-0.9) Eosinophils # (Auto) 0.0 TH/MM3 (0-0.4) 0.0 TH/MM3 (0-0.4) Basophils # (Auto) 0.3 TH/MM3 (0-0.2) 0.1 TH/MM3 (0-0.2) CBC Comment AUTO DIFF AUTO DIFF Differential Total Cells Counted 100 Neutrophils % (Manual) 76 % (16-70) Band Neutrophils % 9 % (0-6) Lymphocytes % 8 % (9-44) Monocytes % 7 % (0-8) Neutrophils # (Manual) 15.0 TH/MM3 (1.8-7.7) Differential Comment FINAL DIFF MANUAL AUTO DIFF CONFIRMED Toxic Granulation 1+ (NORMAL) 1+ (NORMAL) Platelet Estimate NORMAL (NORMAL) NORMAL (NORMAL) Platelet Morphology Comment NORMAL (NORMAL) NORMAL (NORMAL) Blood Urea Nitrogen 28 MG/DL (7-18) 28 MG/DL (7-18) Creatinine 0.67 MG/DL (0.50-1.00) 0.64 MG/DL (0.50-1.00) Random Glucose 123 MG/DL (74-106) 116 MG/DL (74-106) Calcium Level 7.5 MG/DL (8.5-10.1) 7.2 MG/DL (8.5-10.1) Phosphorus Level 2.4 MG/DL (2.5-4.9) 2.4 MG/DL (2.5-4.9) Magnesium Level 2.0 MG/DL (1.5-2.5) 1.9 MG/DL (1.5-2.5) Sodium Level 148 MEQ/L (136-145) 150 MEQ/L (136-145) Potassium Level 3.8 MEQ/L (3.5-5.1) 3.4 MEQ/L (3.5-5.1) Chloride Level 112 MEQ/L (98-107) 114 MEQ/L (98-107) Carbon Dioxide Level 29.0 MEQ/L (21.0-32.0) 30.7 MEQ/L (21.0-32.0) Anion Gap 7 MEQ/L (5-15) 5 MEQ/L (5-15) Estimat Glomerular Filtration Rate 84 ML/MIN (>89) 89 ML/MIN (>89) Total Bilirubin 0.5 MG/DL (0.2-1.0) Direct Bilirubin 0.1 MG/DL (0.0-0.2) Indirect Bilirubin 0.4 MG/DL (0.0-0.8) Aspartate Amino Transf (AST/SGOT) 23 U/L (15-37) Alanine Aminotransferase (ALT/SGPT) 18 U/L (10-53) Alkaline Phosphatase 57 U/L (45-117) Total Protein 5.5 GM/DL (6.4-8.2) 4.9 GM/DL (6.4-8.2) Albumin 1.6 GM/DL (3.4-5.0) Lipase 350 U/L (73-393) Protein Corrected Calcium 8.4 MG/DL (8.5-10.1) Prothrombin Time 13.8 SEC (9.8-11.6) Prothromb Time International Ratio 1.4 RATIO Activated Partial Thromboplast Time 25.7 SEC (24.3-30.1) Test 08/24/17 22:30 08/25/17 05:50 08/25/17 05:55 08/25/17 08:00 Potassium Level 3.4 MEQ/L (3.5-5.1) 2.7 MEQ/L (3.5-5.1) White Blood Count 15.8 TH/MM3 (4.0-11.0) Red Blood Count 2.52 MIL/MM3 (4.00-5.30) Hemoglobin 8.0 GM/DL (11.6-15.3) Hematocrit 23.4 % (35.0-46.0) Mean Corpuscular Volume 93.1 FL (80.0-100.0) Mean Corpuscular Hemoglobin 31.6 PG (27.0-34.0) Mean Corpuscular Hemoglobin Concent 33.9 % (32.0-36.0) Red Cell Distribution Width 13.6 % (11.6-17.2) Platelet Count 300 TH/MM3 (150-450) Mean Platelet Volume 9.4 FL (7.0-11.0) Neutrophils (%) (Auto) 79.9 % (16.0-70.0) Lymphocytes (%) (Auto) 12.7 % (9.0-44.0) Monocytes (%) (Auto) 5.7 % (0.0-8.0) Eosinophils (%) (Auto) 0.9 % (0.0-4.0) Basophils (%) (Auto) 0.8 % (0.0-2.0) Neutrophils # (Auto) 12.6 TH/MM3 (1.8-7.7) Lymphocytes # (Auto) 2.0 TH/MM3 (1.0-4.8) Monocytes # (Auto) 0.9 TH/MM3 (0-0.9) Eosinophils # (Auto) 0.1 TH/MM3 (0-0.4) Basophils # (Auto) 0.1 TH/MM3 (0-0.2) CBC Comment DIFF FINAL Differential Comment Blood Urea Nitrogen 28 MG/DL (7-18) Creatinine 0.70 MG/DL (0.50-1.00) Random Glucose 121 MG/DL (74-106) Total Protein 5.8 GM/DL (6.4-8.2) Albumin 2.1 GM/DL (3.4-5.0) Calcium Level 7.9 MG/DL (8.5-10.1) Phosphorus Level 2.1 MG/DL (2.5-4.9) Magnesium Level 1.7 MG/DL (1.5-2.5) Alkaline Phosphatase 47 U/L (45-117) Aspartate Amino Transf (AST/SGOT) 14 U/L (15-37) Alanine Aminotransferase (ALT/SGPT) 12 U/L (10-53) Total Bilirubin 0.7 MG/DL (0.2-1.0) Sodium Level 146 MEQ/L (136-145) Chloride Level 105 MEQ/L (98-107) Carbon Dioxide Level 32.9 MEQ/L (21.0-32.0) Anion Gap 8 MEQ/L (5-15) Estimat Glomerular Filtration Rate 80 ML/MIN (>89) Total Creatine Kinase 69 U/L (26-192) Digoxin Level 0.8 NG/ML (0.8-2.0) Blood Gas Puncture Site LT RADIAL Blood Gas Patient Temperature 98.6 Blood Gas HCO3 31 mmol/L (22-26) Blood Gas Base Excess 8.0 mmol/L (-2-2) Blood Gas Oxygen Saturation 96 % (90-100) Arterial Blood pH 7.56 (7.380-7.420) Arterial Blood Partial Pressure CO2 35 mmHg (38-42) Arterial Blood Partial Pressure O2 102 mmHg (61-120) Arterial Blood Oxygen Content 10.8 Vol % (12.0-20.0) Arterial Blood Carboxyhemoglobin 1.0 % (0-4) Arterial Blood Methemoglobin 1.1 % (0-2) Blood Gas Hemoglobin 7.9 G/DL (12.0-16.0) Oxygen Delivery Device VENTILATOR Blood Gas Ventilator Setting CPAP 5/10PS Blood Gas Inspired Oxygen 35 % Test 08/25/17 08:48 08/25/17 08:49 Activated Partial Thromboplast Time 67.8 SEC (24.3-30.1) Vancomycin Level Trough 13.3 MCG/ML (5.0-10.0) Result Diagram: 08/25/17 0550 08/25/17 0555 Microbiology Microbiology Date/Time Source Procedure Growth Status 08/23/17 10:57 Blood Line Aerobic Blood Culture - Preliminary NO GROWTH IN 2 DAYS Resulted 08/23/17 10:57 Blood Line Anaerobic Blood Culture - Preliminary NO GROWTH IN 2 DAYS Resulted Imaging Last Impressions Chest X-Ray 08/24/17 1741 Signed Impressions: Service Date/Time: Thursday, August 24, 2017 17:53 - CONCLUSION: Left central line in place. No pneumothorax. Samuel Peralta MD Abdomen/Pelvis CT 08/23/17 1426 Signed Impressions: Service Date/Time: Wednesday, August 23, 2017 22:50 - CONCLUSION: 1. Suspected mild diffuse colitis, nonspecific but presumably infectious or inflammatory. No obstruction or abscess. 2. Trace ascites about the same there is worsening anasarca and worsening pleural effusions and consolidation of both lung bases. 3. Tiny nonobstructing stone of the right kidney and a generally benign appearing cyst lower pole the left kidney. No evidence of obstructive uropathy or other etiology for acute renal failure. 4. Atherosclerotic aorta. No aneurysm. Adan Nunes MD Upper Extremity Ultrasound 08/23/17 0000 Signed Impressions: Service Date/Time: Wednesday, August 23, 2017 16:25 - CONCLUSION: Bilateral upper extremity DVT as described above. Samuel Peralta MD Lower Extremity Ultrasound 08/23/17 0000 Signed Impressions: Service Date/Time: Wednesday, August 23, 2017 15:50 - CONCLUSION: 1. There is incomplete compression of the left common femoral vein raising suspicion for nonocclusive thrombus. This vessel, however, still demonstrates normal Doppler blood flow and respiratory variability. 2. The remaining veins of the left lower extremity are patent and the entire right lower extremity is patent without thrombus. Adan Machuca MD Abdomen X-Ray 08/21/17 0600 Signed Impressions: Service Date/Time: July 03:35 - CONCLUSION: The bowel gas pattern remains fairly unremarkable. Jl Stanley MD Lumbar Puncture Fluoroscopy 08/15/17 0000 Signed Impressions: Service Date/Time: Tuesday, August 15, 2017 15:36 - CONCLUSION: 1. Uncomplicated fluoroscopically guided lumbar puncture. 2. Please note, requested opening pressures were not obtained due to technical difficulties. Shashi Moreno MD Brain MRI 08/15/17 0000 Signed Impressions: Service Date/Time: Tuesday, August 15, 2017 16:57 - CONCLUSION: 1. 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 2. Mild stenosis in the upper cervical spine as above. Esau Martell MD Abdomen Ultrasound 08/15/17 0000 Signed Impressions: Service Date/Time: Tuesday, August 15, 2017 10:40 - CONCLUSION: 1. No abnormality is identified to explain the clinical symptoms. There is no hydronephrosis. 2. The liver is normal in size and echotexture. Adan Machuca MD Head CT 08/14/172231 Signed Impressions: Service Date/Time: July 22:54 - CONCLUSION: Unremarkable study. Josseline Villagomez MD Procedures * 08/25/17 - extubated. * 08/15/17-lumbar puncture by IR * 08/15/17 - right IJ central line, intubated. . Assessment and Plan Disease Oriented Problem List: (1) Acute respiratory failure (2) Acute renal failure (3) Rhabdomyolysis (4) Septic shock (5) Tachycardia (6) Hypotension (7) UTI (urinary tract infection) (8) Alcohol abuse Symptom Scale: (1) Pain 0-10 Scale: 0 (2) Dyspnea 0-10 Scale: 0 (3) Weakness 0-10 Scale: 0 Comment: continue PT/ OT Pertinent Non-Medical Issues Psychosocial: . Lives with Nicole flores. Has 3 daughters and 1 son. Spiritual: [employer] david. Legal: According to her Living Will she names Silvia flores as primary HCS and son Jl Olson as alternate HCS. Ethical issues impacting care: No known concerns at this time. . Important Contacts * Silvia "Diane Luis, daughter/ HCS: [phone] * Jl Olson, son/ alternate HCS: [phone] or [phone] * Jessica, daughter: [phone] * Chelsea, daughter: [phone] . Prognosis Ms. Olson is an 82 year old admitted with rhabdomyolysis, septic shock uncertain etiology, dehydration, renal failure. At this point we will need additional information to determine overall prognosis. Given her advanced age, she remain high risk for further setbacks or decline. . Code Status: Full Code Plan * Difficult to assess patient capacity today due to difficulty understanding her weak voice post extubation this morning 08/25/17 AM. Will attempt to clarify in the coming days. According to her Living Will she names Silvia flores as primary HCS and son Jl Olson as alternate HCS. * FULL CODE. * Goals remain aggressive at this time. Will attempt to clarify goals with patient in the coming days. * SYMPTOMS: Altered mental status: seems to be improving. Dyspnea: Medically extubated 08/25/17 am. Denies SOB on NC oxygen. Pain: potential sources include intubation, chronic neck pain, infection, etc. Denies pain. Anxiety: Denies. Weakness: Continue PT/OT. No new medication recommendations at this time. * Palliative care will continue to throughout hospital course to assist with clarification of goals. . Attestation To help prompt me to consider important information that might be impacting today's encounter and assessment, information from prior notes written by myself or my colleagues may have been "brought forward" into today's note. My signature on this note, however, is an attestation that I personally performed the exam, history, and/or decision-making noted today, and, unless otherwise indicated, the interactions with patient, family, and staff as well as the review of records all occurred today. I also attest that the listed assessment and stated plan reflect my best clinical judgment today based on the combination of historical information, prior notes, and today's exam/ interactions. When time spent is documented, it refers only to time spent today by the signer, or if indicated, combined time spent today by collaborating physician/nurse practitioner. Vashti Riley Aug 25, 2017 13:51
[2017-08-25] MEDS: ICU - POTASSIUM PHOSPHATE 30 MMOL/NS 250 ML IV PRN ×2 (14:58)
[2017-08-25] MEDS ORDERED: ICU - MAGNESIUM SULFATE 2 GM/NS 100 ML IV PRN ×2 (15:00)
[2017-08-25] MEDS ORDERED: ICU - SODIUM PHOSPHATE 30 MMOL/NS 250 ML IV PRN ×2 (15:00)
[2017-08-25] MEDS ORDERED: ICU - MAGNESIUM OXIDE 400 MG TAB PO PRN (15:00)
[2017-08-25] MEDS ORDERED: ICU - D/C ICU ELECTROLYTE ORDERS PRN (15:00)
[2017-08-25] MEDS ORDERED: POTASSIUM CHLORIDE 25 MEQ EFFERVESCENT TAB PO PRN (15:00)
[2017-08-25] MEDS ORDERED: ICU - POTASSIUM CHLORIDE/AQUEOUS SOLN 20 MEQ/100 ML IVPB IV PRN (15:00)
[2017-08-25] MEDS ORDERED: ICU - CALL ORDERING PHYSICIAN PRN (15:00)
[2017-08-25] MEDS ORDERED: ICU - MAGNESIUM SULFATE 4 GM/NS 100 ML IV PRN ×2 (15:00)
--- NOTE | 2017-08-25 18:13 | PD.CONS ---
History of Present Illness Service Ophthalmology Consult Requested By Reason for Consult rule out fungal endophthalmitis Primary Care Physician Unknown Diagnoses: History of Present Illness 82 year old female with past medical history of hypertension, possible sleep apnea, chronic neck pain, sciatica, alcohol abuse, arthritis, chronic rectal prolapse with bowel incontinence and anxiety presented to ED after being found obtunded and covered in feces. Patient was admitted for severe dehydration, acute renal failure, rhabdomyolysis, lactic acidosis, possible UTI, sepsis. Recently extubated. Now diagnosed with fungemia. Pt states she does not have any change in her vision or floaters. Ocular history significant for cataract surgery OU. Past Family Social History Allergies: Coded Allergies: No Known Allergies (Verified Allergy, Unknown, 08/15/17) Physical Exam Vital Signs Vital Signs Date Time Temp Pulse Resp B/P (MAP) Pulse Ox O2 Delivery O2 Flow Rate FiO2 08/25/17 16:00 107 08/25/17 16:00 98.2 107 12 105/65 (78) 95 08/25/17 14:00 122 08/25/17 12:00 109 08/25/17 12:00 97.8 109 17 103/66 (78) 98 08/25/17 10:00 108 08/25/17 09:36 98 Nasal Cannula 3.00 08/25/17 09:36 98 Nasal Cannula 3 08/25/17 08:00 40 08/25/17 08:00 100 08/25/17 08:00 97.5 100 12 93/56 (68) 100 08/25/17 06:45 95 35 08/25/17 06:45 35 08/25/17 06:00 93 08/25/17 04:00 40 08/25/17 04:00 96 08/25/17 04:00 99.1 96 16 113/56 (75) 100 08/25/17 03:56 100 40 08/25/17 02:00 90 08/25/17 00:15 100 40 08/25/17 00:15 85 77/40 08/25/17 00:00 95 08/25/17 00:00 40 08/25/17 00:00 99.7 95 22 76 08/24/17 22:00 85 08/24/17 22:00 101.1 85 18 96/54 (68) 93 08/24/17 20:00 86 08/24/17 20:00 40 08/24/17 20:00 100.9 86 16 105/60 (75) 96 08/24/17 19:43 95 40 Physical Exam Va cc at near OD 20/40, OS 20/40 EOM full OU, no diplopia CVF full OU Pupils 2-1 no APD OU IOP normal to palpation OU Anterior exam OD - normal eyelid, C/S W&Q, K clear, AC deep, pupil round, PCIOL OS - normal eyelid, C/S W&Q, K clear, AC deep, pupil round, PCIOL Dilated exam OD - ON s/p/f, ves normal, vit clear, retina flat OS - ON s/p/f, ves normal, vit clear, retina flat Laboratory Laboratory Tests Test 08/24/17 22:30 08/25/17 05:50 08/25/17 05:55 08/25/17 08:00 Potassium Level 3.4 2.7 White Blood Count 15.8 Red Blood Count 2.52 Hemoglobin 8.0 Hematocrit 23.4 Mean Corpuscular Volume 93.1 Mean Corpuscular Hemoglobin 31.6 Mean Corpuscular Hemoglobin Concent 33.9 Red Cell Distribution Width 13.6 Platelet Count 300 Mean Platelet Volume 9.4 Neutrophils (%) (Auto) 79.9 Lymphocytes (%) (Auto) 12.7 Monocytes (%) (Auto) 5.7 Eosinophils (%) (Auto) 0.9 Basophils (%) (Auto) 0.8 Neutrophils # (Auto) 12.6 Lymphocytes # (Auto) 2.0 Monocytes # (Auto) 0.9 Eosinophils # (Auto) 0.1 Basophils # (Auto) 0.1 CBC Comment DIFF FINAL Differential Comment Blood Urea Nitrogen 28 Creatinine 0.70 Random Glucose 121 Total Protein 5.8 Albumin 2.1 Calcium Level 7.9 Phosphorus Level 2.1 Magnesium Level 1.7 Alkaline Phosphatase 47 Aspartate Amino Transf (AST/SGOT) 14 Alanine Aminotransferase (ALT/SGPT) 12 Total Bilirubin 0.7 Sodium Level 146 Chloride Level 105 Carbon Dioxide Level 32.9 Anion Gap 8 Estimat Glomerular Filtration Rate 80 Total Creatine Kinase 69 Digoxin Level 0.8 Blood Gas Puncture Site LT RADIAL Blood Gas Patient Temperature 98.6 Blood Gas HCO3 31 Blood Gas Base Excess 8.0 Blood Gas Oxygen Saturation 96 Arterial Blood pH 7.56 Arterial Blood Partial Pressure CO2 35 Arterial Blood Partial Pressure O2 102 Arterial Blood Oxygen Content 10.8 Arterial Blood Carboxyhemoglobin 1.0 Arterial Blood Methemoglobin 1.1 Blood Gas Hemoglobin 7.9 Oxygen Delivery Device VENTILATOR Blood Gas Ventilator Setting CPAP 5/10PS Blood Gas Inspired Oxygen 35 Test 08/25/17 08:48 08/25/17 08:49 Activated Partial Thromboplast Time 67.8 Vancomycin Level Trough 13.3 Date/Time Source Procedure Growth Status 08/23/17 10:57 Blood Line Aerobic Blood Culture - Preliminary Gram Positive Cocci Resulted 08/23/17 10:57 Blood Line Anaerobic Blood Culture - Preliminary NO GROWTH IN 2 DAYS Resulted 08/15/17 15:56 Cerebral Spinal Fluid Lumbar Puncture Gram Stain - Final Complete 08/15/17 15:56 Cerebral Spinal Fluid Lumbar Puncture CSF Culture - Final NO GROWTH IN 72 HOURS Complete 08/15/17 02:28 Stool Stool Cryptosporidium Exam Pending Ordered 08/15/17 02:28 Stool Stool Giardia Antigen (MARCIA) Pending Ordered 08/21/17 15:20 Sputum Endotracheal Gram Stain - Final Complete 08/21/17 15:20 Sputum Endotracheal Sputum Culture - Final NO GROWTH IN 48 HOURS. Complete 08/21/17 13:45 Urine Catheterized Urine Urine Culture - Final NO GROWTH IN 48 HOURS. 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 Yumiko Lowe MD Aug 25, 2017 18:13
[2017-08-25] MEDS: MELATONIN 5 MG TAB PO PRN (22:44)
[2017-08-26] VITALS (18 sets, daily range): BP systolic 101–125; BP diastolic 57–71; PULSE 93–136; RESP 16–29; TEMP 98–98.7; O2SAT 93–100
[2017-08-26] MEDS: RESP: ALBUTEROL 2.5 MG/IPRATROPIUM 0.5 MG NEB (SCH) NEB ×6 (00:30→20:00)
[2017-08-26] MEDS: ALBUMIN 25% INJ 50 ML IV SCH (01:30)
[2017-08-26] MEDS: metroNIDAZOLE 500 MG INJ 100 ML IV SCH ×4 (01:30→19:18)
[2017-08-26] MEDS: CEFEPIME INJ 2,000 MG in SODIUM CHLORIDE 0.9% INJ 100 ML IV SCH ×2 (01:31→13:54)
[2017-08-26] MEDS: ICU - POTASSIUM CHLORIDE/AQUEOUS SOLN 40 MEQ/100 ML IVPB IV PRN ×2 (03:02→12:35)
[2017-08-26] MEDS: POTASSIUM CHLORIDE 25 MEQ EFFERVESCENT TAB NG SCH ×3 (03:53→19:18)
[2017-08-26] MEDS: INSULIN NovoLIN REGULAR SUPPLEMENTAL SCALE SQ SCH ×6 (03:53→19:18)
[2017-08-26] MEDS ORDERED: METOPROLOL TARTRATE 5 MG/5 ML VIAL IV PUSH SCH (04:00)
[2017-08-26 04:52] LABS: AUTOMATED NEUTROPHIL # 11.9 TH/MM3 (1.8-7.7); BASOPHIL # 0.1 TH/MM3 (0-0.2); BASOPHIL % 0.6 % (0.0-2.0); EOSINOPHIL % 0.3 % (0.0-4.0); HEMATOCRIT 23.2 % (35.0-46.0); HEMOGLOBIN 7.7 GM/DL (11.6-15.3); LYMPH % 7.8 % (9.0-44.0); LYMPHOCYTE # 1.1 TH/MM3 (1.0-4.8); MEAN CELL VOLUME 93.5 FL (80.0-100.0); MEAN CORPUSCULAR HEMOGLOBIN 30.9 PG (27.0-34.0); MEAN CORPUSCULAR HGB CONC 33.1 % (32.0-36.0); MEAN PLATELET VOLUME 9.1 FL (7.0-11.0); MONO % 6.5 % (0.0-8.0); MONOCYTE # 0.9 TH/MM3 (0-0.9); NEUT % 84.8 % (16.0-70.0); PLATELET COUNT 360 TH/MM3 (150-450); RED BLOOD COUNT 2.49 MIL/MM3 (4.00-5.30); RED CELL DISTRIBUTION WIDTH 13.8 % (11.6-17.2)
[2017-08-26 05:17] LABS: BICARBONATE 31.3 MEQ/L (21.0-32.0); CALCIUM 7.9 MG/DL (8.5-10.1); CREATININE 0.62 MG/DL (0.50-1.00); MAGNESIUM 1.9 MG/DL (1.5-2.5); PHOSPHORUS 2.9 MG/DL (2.5-4.9)
[2017-08-26] MEDS: FREE WATER G-TUBE SCH (06:00)
[2017-08-26] MEDS: ARTIFICIAL TEARS OPTH SOLN 15 ML BTL EACH EYE SCH ×3 (06:00→19:18)
[2017-08-26] MEDS ORDERED: RESP: IPRATROPIUM 0.5 MG/2.5 ML NEB NEB PRN (08:00)
[2017-08-26] MEDS ORDERED: ALPRAZolam 0.25 MG TAB PO ONE (08:00)
[2017-08-26] MEDS: RESP: IPRATROPIUM 0.5 MG/2.5 ML NEB NEB SCH ×5 (08:00→23:25)
--- NOTE | 2017-08-26 08:14 | HHI.CCPN ---
Subjective Remarks/Hospital Course Patient is an 82-year-old female with past medical history of irritable bowel syndrome, hypertension, arthritis, diverticulitis who presented to the [facility] ED after she was found lying on her bed with urine and feces all around her bed. In addition, the patient was altered and obtunded. Most of the history was obtained from reviewing the medical records. Her laboratory data showed acute renal failure with BUN of 52, creatinine 3.39 and lactic acidosis with a lactic acid level of 6.3. In addition, the patient was in rhabdomyolysis with elevated CK at 3855. She was admitted under the hospitalist service; however, a [facility] was called due to worsening mental status, hypertension and hypoxemia. She was transferred to [facility] and critical care medicine was consulted for critical care management. When seen, the patient was lethargic, not following any commands, hypotensive. She was subsequently intubated by myself and a right internal jugular central line was placed for hemodynamic monitoring. ABG post intubation showed a pH of 7.31, co2 of 30, pA02 of 117, bicarbonate 15 and saturation of 96% on PRVC rate of 14, tidal volume 350 with IT:1, PEEP 5 and FIO2 of 100%. She was given two liter boluses of normal saline and placed on a bicarbonate drip. Her lactic acid level is trending down and is currently 3.4 from 6.3 on arrival. In addition, her renal function is improving with IV hydration. Her creatinine level is 2.29 from 3.39. Due to hypotension, Levophed was started. A CT scan of the brain in the emergency department was unremarkable. Her initial chest x-ray showed minimal basilar atelectasis, no effusions or pneumothoraces. According to the patient's family, the patient has been intermittently binge drinking. In addition, they report her having diarrhea for a few days. She had a low-grade fever with a temperature of 100.2 last night. 08/16 Patient is sedated with Fentanyl drip intubated and on Levophed 5 mics. On Bicarb drip. MRI brain yesterday showed small lacunar infarcts in left cerebellar hemisphere and right parietal lobe. Lp showed clear CSF, 17 wbc. Afebrile.Renal function worse today with Cr: 2.64 from 2.29 08/17 Patient remains sedated and intubated. On Bicarb drip. Off Levophed renal function slightly worse today with Cr: 2.82 from 2.64 and UOP: 550 ml in 24 hrs 08/18 Patient bit through ETT overnight s/p new ETT placement using tube exchanger. Sedated with Diprivan and Fentanyl. Afebrile. Renal function is improving with Cr: 1.97 from 2.82. On Bicarb drip. Tube feeds held for possible colonoscopy today. 08/19: Remains sedated, orally intubated on mechanical ventilation. Colonoscopy done yesterday revealed ischemic colitis. Has been evaluated by general surgery. Patient went into A. fib with RVR last night and was started on a Cardizem drip. On Levophed for hypotension 08/20: Remains sedated, orally intubated on mechanical ventilation. Started on TPN on 08/19. Cardizem drip turned off this morning. Received 1 dose of digoxin yesterday. 08/21: Remains sedated, orally intubated on mechanical ventilation. On TPN. Ordered Precedex as well as digoxin daily. Starting trophic feeds today. 08/22 Patient remains intubated on Precedex and Fentanyl infusion for sedation. afebrile. 08/23 WBC up to 17.7. Temp max 102.2. Blood culture sent today peripherally ( labelled as line draw initially but was not drawn from a line, lab notified to re-label). Tolerating trophic feeds. Awake and on CPAP 10/5 with RSBI 50s, became labored and desat with 5/5. Denies abdominal pain. Subjective: 08/24: Tmax 102.7 overnight. Currently 100.6. Noted yeast growing from blood culture 08/21. Remains in atrial fibrillation. Potassium currently been replaced. Currently only has once peripheral IV access. Will need central line placed later this afternoon. 08/25 Patient is awake and alert on CPAP trials. T: 101.1 last night. On Heparin and Bumex drips 08/26 Patient was extubated yesterday on 3L oxygen. She went into Afib with RVR last night given Labetalol. Afebrile. Objective Vital Signs Date Time Temp Pulse Resp B/P (MAP) Pulse Ox O2 Delivery O2 Flow Rate FiO2 08/26/17 06:00 129 08/26/17 04:00 98.1 17 114/63 (80) 100 2/26/18 21:27 Nasal Cannula 3.00 08/25/17 08:00 40 Intake and Output 08/26/17 08/26/17 08/27/17 08:00 16:00 00:00 Intake Total 370 ml Output Total 500 ml Balance -130 ml Result Diagram: 08/26/17 0420 08/26/17 0420 Other Results Laboratory Tests Test 08/25/17 08:48 08/25/17 08:49 08/25/17 18:19 08/26/17 01:35 Activated Partial Thromboplast Time 67.8 SEC 54.8 SEC 51.1 SEC Vancomycin Level Trough 13.3 MCG/ML Potassium Level 2.9 MEQ/L Phosphorus Level 3.0 MG/DL Test 08/26/17 04:20 White Blood Count 14.0 TH/MM3 Red Blood Count 2.49 MIL/MM3 Hemoglobin 7.7 GM/DL Hematocrit 23.2 % Mean Corpuscular Volume 93.5 FL Mean Corpuscular Hemoglobin 30.9 PG Mean Corpuscular Hemoglobin Concent 33.1 % Red Cell Distribution Width 13.8 % Platelet Count 360 TH/MM3 Mean Platelet Volume 9.1 FL Neutrophils (%) (Auto) 84.8 % Lymphocytes (%) (Auto) 7.8 % Monocytes (%) (Auto) 6.5 % Eosinophils (%) (Auto) 0.3 % Basophils (%) (Auto) 0.6 % Neutrophils # (Auto) 11.9 TH/MM3 Lymphocytes # (Auto) 1.1 TH/MM3 Monocytes # (Auto) 0.9 TH/MM3 Eosinophils # (Auto) 0.0 TH/MM3 Basophils # (Auto) 0.1 TH/MM3 CBC Comment DIFF FINAL Differential Comment Blood Urea Nitrogen 23 MG/DL Creatinine 0.62 MG/DL Random Glucose 127 MG/DL Calcium Level 7.9 MG/DL Phosphorus Level 2.9 MG/DL Magnesium Level 1.9 MG/DL Sodium Level 149 MEQ/L Potassium Level 3.5 MEQ/L Chloride Level 110 MEQ/L Carbon Dioxide Level 31.3 MEQ/L Anion Gap 8 MEQ/L Estimat Glomerular Filtration Rate 92 ML/MIN Imaging Last Impressions Chest X-Ray 08/25/17 0600 Signed Impressions: Service Date/Time: Friday, August 25, 2017 03:26 - CONCLUSION: 1. Stable tubes and lines, as above. 2. Stable small bilateral pleural effusions and associated bibasilar airspace disease. Douglas Jean MD Abdomen/Pelvis CT 08/23/17 1426 Signed Impressions: Service Date/Time: Wednesday, August 23, 2017 22:50 - CONCLUSION: 1. Suspected mild diffuse colitis, nonspecific but presumably infectious or inflammatory. No obstruction or abscess. 2. Trace ascites about the same there is worsening anasarca and worsening pleural effusions and consolidation of both lung bases. 3. Tiny nonobstructing stone of the right kidney and a generally benign appearing cyst lower pole the left kidney. No evidence of obstructive uropathy or other etiology for acute renal failure. 4. Atherosclerotic aorta. No aneurysm. Adan Nnues MD Upper Extremity Ultrasound 08/23/17 0000 Signed Impressions: Service Date/Time: Wednesday, August 23, 2017 16:25 - CONCLUSION: Bilateral upper extremity DVT as described above. Samuel Peralta MD Lower Extremity Ultrasound 08/23/17 0000 Signed Impressions: Service Date/Time: Wednesday, August 23, 2017 15:50 - CONCLUSION: 1. There is incomplete compression of the left common femoral vein raising suspicion for nonocclusive thrombus. This vessel, however, still demonstrates normal Doppler blood flow and respiratory variability. 2. The remaining veins of the left lower extremity are patent and the entire right lower extremity is patent without thrombus. Adan Machuca MD Abdomen X-Ray 08/21/17 0600 Signed Impressions: Service Date/Time: July 03:35 - CONCLUSION: The bowel gas pattern remains fairly unremarkable. Jl Stanley MD Lumbar Puncture Fluoroscopy 08/15/17 0000 Signed Impressions: Service Date/Time: Tuesday, August 15, 2017 15:36 - CONCLUSION: 1. Uncomplicated fluoroscopically guided lumbar puncture. 2. Please note, requested opening pressures were not obtained due to technical difficulties. Shashi Moreno MD Brain MRI 08/15/17 0000 Signed Impressions: Service Date/Time: Tuesday, August 15, 2017 16:57 - CONCLUSION: 1. 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 2. Mild stenosis in the upper cervical spine as above. Esau Martell MD Abdomen Ultrasound 08/15/17 0000 Signed Impressions: Service Date/Time: Tuesday, August 15, 2017 10:40 - CONCLUSION: 1. No abnormality is identified to explain the clinical symptoms. There is no hydronephrosis. 2. The liver is normal in size and echotexture. Adan Machuca MD Head CT 08/14/172 Signed Impressions: Service Date/Time: July 22:54 - CONCLUSION: Unremarkable study. K. Yovani Villagomez MD Objective Remarks GENERAL: 82-year-old female currently resting in bed in [facility] SKIN: Warm and dry. Generalized Anasarca HEAD: Normocephalic. EYES: Pupils equal and reactive bilaterally about 3 mm. No scleral icterus. No injection or drainage. NECK: Supple, trachea midline. No JVD or lymphadenopathy. Orally intubated. Right IJ site without erythema CARDIOVASCULAR: Tachycardic, IRR. S1, S2 no S4. No murmurs appreciated RESPIRATORY: Diminished breath sounds bilateral posterior bases. No wheezing appreciated. GASTROINTESTINAL: Abdomen soft, non-tender, minimally distended. Bowel sounds hypoactive but present. No guarding or rigidity MUSCULOSKELETAL: No significant peripheral edema. 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 Monitor neuro status and avoid sedatives. Oxycodone 5 mg every 6 hours scheduled in attempt to wean off ventilator UDS is negative 08/15: CT brain negative for acute intracranial process MRI brain: Small lacunar infarcts in left cerebellar hemisphere and right parietal lobe EEG: Severe encephalopathy Continue thiamine, multivitamin and folic acid daily. Repeat EEG 08/21.- generalized slowing, no epileptiform features Neuro is following- Dr. Danielle LP showed clear CSF, 17 WBC, TP:45.2 Previously on chlordiazepoxide 25 mg 3 times a day Pulm: Acute respiratory failure Bilateral pleural effusions Continue with oxygen keep sat >92% Bronchodilators( d/c Albuterol due to tachycardia and place on Atrovent nebs) Incentive spirometry Q1 he while awake. CV: Atrial fibrillation, previously RVR now rate controlled. Systolic heart failure unknown if acute or chronic Monitor HR and BP keep MAP>65mmHg. Place on Lopressor 50mg Q12, On Digoxin 0.125 mg daily. Digoxin level 0.8 08/25 Troponin is trended down. Echo showed EF 45-50% Continue aspirin 81 mg by mouth daily/home medication Renal/FEN/: Acute kidney injury, resolved Lactic acidemia, resolved Rhabdomyolysis resolved Hypernatremia Hypokalemia Hypophosphatemia Right-sided nephrolithiasis/nonobstructing Left renal cyst Monitor renal function, intake and output and avoid nephrotoxins. Renal has followed-Dr. Figueroa, US abdomen: No hydronephrosis CT Abd/pelvis revealed nonobstructing right-sided nephrolithiasis and left renal cyst. GI: Ischemic colitis Severe acute on Chronic protein energy malnutrition AST elevation secondary to alcohol use Internal and external hemorrhoids On PO diet per speech advance as ligia. Discussed with surgery On famotidine 20 mg twice a day for GI prophylaxis. Monitor LFT's( resolved) US liver: No abnormalities identified tube feeds-on tube feeds with Glucerna for trophic feeds at 20 cc/h GI is following- colonoscopy showed diffuse colitis in the sigmoid colon and descending colon; Necrotic, dusky appearing mucosa. Consistent with severe ischemic colitis. General surgery, Dr. Guadalupe -plan to treat conservatively unless patient worsens clinically. Repeat CT abdomen and pelvis 08/23 mild diffuse colitis ID: Septic shock resolved UTI Ischemic colitis Fungemia Abx per ID (Cefepime, metronidazole, micafungin) Dr. Davis. Seen by Opth no evidence of endophthalmitis Pertinent cultures 08/23 - blood culture by line (actually peripheral) - pending 08/21 - blood culture - no growth 08/21 - sputum - no growth 08/21 - - no growth 08/21 - blood culture - Yeast 08/15 - CSF - negative 08/15 - sputum - no growth 08/14 - blood cultures 2 and UA - no growth C-diff PCR is negative, stool studies negative s/p LP showed clear CSF, 17 WBC, TP:45.2, HSV DNA PCR neg Endo: Hyperglycemia of critical illness/steroid SSI with Novulin R medium with Accu-Chek every 4 hours for glycemic control. TSH: 1.15. Heme: Leukocytosis Normocytic anemia B/L UE DVT Possible left common femoral vein DVT Left cephalic/basilic to professional and right superficial cephalic thrombus Monitor CBC, coags- on Heparin drip Restart iron sulfate 300 mg by tube twice a day GI prophylaxis with famotidine and DVT prophylaxis with SCDs, Heparin drip Lines: Peripheral IV. Right IJ Central line removed 08/22. , Right radial Art line placed 08/15, has been removed 08/18 Discuss with daughter at bedside and all questions answered Level II follow-up Don Youngblood MD Aug 26, 2017 08:14
[2017-08-26] MEDS ORDERED: PILL SPLITTER OTHER PRN (08:30)
[2017-08-26] MEDS: FLUCONAZOLE 400 MG PREMIX BAG 400 ML IV SCH (08:38)
[2017-08-26] MEDS: SODIUM CHLORIDE 0.9% FLUSH 10 ML FLUSH IV FLUSH SCH ×3 (08:40→19:17)
[2017-08-26] MEDS: FOLIC ACID 1 MG TAB PO SCH (08:41)
[2017-08-26] MEDS: MULTIVITAMIN TAB PO SCH (08:41)
[2017-08-26] MEDS: FERROUS SULFATE 300 MG /5ML UDC PO SCH ×2 (08:41→19:17)
[2017-08-26] MEDS: THIAMINE HCL 100 MG TAB PO SCH (08:41)
[2017-08-26] MEDS: FAMOTIDINE 40 MG/5 ML LIQ 50 ML BTL NG SCH ×2 (08:42→19:17)
[2017-08-26] MEDS: ASPIRIN 81 MG CHEW TAB OG-TUBE SCH (08:42)
[2017-08-26] MEDS: DIGOXIN SOLUTION 0.125 MG/2.5 ML CUP PO SCH (08:42)
[2017-08-26] MEDS: METOPROLOL TARTRATE 25 MG TAB PO SCH ×2 (09:02→19:18)
[2017-08-26] MEDS ORDERED: FLUCONAZOLE 400 MG PREMIX BAG 400 ML IV SCH (10:00)
[2017-08-26] MEDS: MICAFUNGIN INJ 100 MG in SODIUM CHLORIDE 0.9% INJ 100 ML IV SCH (11:24)
--- NOTE | 2017-08-26 12:26 | HHI.IDPN ---
Subjective Subjective Remarks Ms. Olson is an 82 year old female with past medical history of hypertension, possible sleep apnea, chronic neck pain, sciatica, alcohol abuse, arthritis, chronic rectal prolapse with bowel incontinence and anxiety. Patients daughter reports she was away for last week (normally she lives with Mom). She checked on her mom each night. The night prior to admission patient and daughter spoke to each other and no reported fever or change in behavior etc noted. No recent bounced checks, change in behavior, fires, falls or doors left unopened or such security concerns. She was found by her daughter lying in bed. On questioning patient was not found vomiting and no seizures. But patient was found in urine and feces. With this background patient presented to [facility] ER on when daughter arrived home to find patient laying on the bed covered in urine and feces. She was obtunded and 911 was called. Upon arrival to the ER: * VS - 100.2, HR 104, RR 18, BP 125/55, O2 sat 95% on room air. * WBC 10.2, hgb 13.8, hct 41.6, platelets 304, neutrophils 91.3% * BUN 52, creatinine 3.39, glucose 177, sodium 141, potassium 5.1, chloride 103 , GFR 13 * Lactic acid 6.3 * TCK 3855, CK-MB 113.6, CK-MB 2.9% * CT head - unremarkable * CXR - minimal basilar atelectasis, no effusion or pneumothorax [facility] acute renal failure, rhabdomyolysis, lactic acidosis, possible UTI, sepsis. Overnight she developed tachycardia, hypotension and hypoxemia. She was transferred to ICU placed on pressor support. She was started on heparin drip per PE protocol. [employer] was consulted for hypotension, septic shock. On non -rebreather with with oxygen saturation 90% and BP 79/50. Since admission she was intubated and placed on mech vent. Infectious disease consulted for evaluation and M'ment of Pneumonia and Colitis. Overnight events reviewed. No fevers No rash No diarrhea Extubated overnight. C diff negative Colonoscopy C/W severe ischemic colitis Antibiotics Current Medications Cefepime Flagyl Vanco x 1 dose 08/21 Medications (Trade) Dose Ordered Sig/Al Route Start Time Stop Time Status Last Admin (NS Flush) 2 ml UNSCH PRN IV FLUSH 08/15/17 02:00 08/21/17 11:15 (NS Flush) 2 ml BID IV FLUSH 08/15/17 09:00 08/22/17 09:45 (Narcan Inj) 0.4 mg UNSCH PRN IV PUSH 08/15/17 02:00 Metronidazole 100 ml @ 100 mls/hr Q6H IV 08/15/17 08:00 08/22/17 09:44 Miscellaneous Information Patient in critical care unit? Ass... [id number] .XX 08/15/17 06:15 08/15/17 06:15 (Romazicon Inj) 0.2 mg Q1M PRN IV PUSH 08/15/17 06:30 (Atrovent Neb) 0.5 mg Q2HR NEB PRN NEB 08/15/17 06:30 08/18/17 08:25 Fentanyl Citrate 250 ml @ 5 mls/hr TITRATE PRN IV 08/15/17 07:30 08/22/17 00:33 (Brethine Inj) 1 mg UNSCH PRN SQ 08/15/17 09:00 (Vitamin B1) 100 mg DAILY PO 08/15/17 12:00 08/22/17 09:44 (Theragran) 1 tab DAILY PO 08/15/17 12:00 08/22/17 09:44 (Folate) 1 mg DAILY PO 08/15/17 12:00 08/22/17 09:44 (Pepcid Inj) 10 mg Q12H IV PUSH 08/15/17 12:00 08/21/17 23:29 (Aspirin Chew) 81 mg DAILY OG-TUBE 08/15/17 19:00 08/22/17 09:44 (D50w (Vial) Inj) 50 ml UNSCH PRN IV PUSH 08/16/17 08:00 (Glucagon Inj) 1 mg UNSCH PRN OTHER 08/16/17 08:00 (NovoLIN R SUPPLEMENTAL SCALE) 1 Q4HR SQ 08/16/17 08:00 08/21/17 00:09 (SoluCORTEF INJ) 25 mg Q12H IV PUSH 08/17/17 18:00 08/22/17 06:25 (Lopressor) 25 mg Q12HR PO 08/17/17 09:00 Future Hold 08/19/17 08:46 (Heparin Inj) 5,000 units Q12HR SQ 08/17/17 09:00 08/22/17 09:45 Propofol 100 ml @ 2.19 mls/hr TITRATE PRN IV 08/17/17 18:30 08/21/17 10:24 Diltiazem HCl 125 mg/Sodium Chloride 125 ml @ 5 mls/hr TITRATE PRN IV 08/18/17 20:15 08/20/17 14:08 Phenylephrine HCl 40 mg/Dextrose 500 ml @ 30 mls/hr TITRATE PRN IV 08/19/17 10:30 08/20/17 00:09 (Brethine Inj) 1 mg UNSCH PRN SQ 08/19/17 10:30 Fat Emulsion Intravenous 250 ml @ 31.25 mls/ hr Q24H IV-CENTRAL 08/19/17 20:00 08/20/17 20:10 Vasopressin 40 units/Dextrose 100 ml @ 6 mls/hr [id number] IV 08/19/17 15:30 Parenteral Electrolytes 1,000 ml @ 42 mls/hr [id number] IV 08/19/17 16:00 08/21/17 11:20 Sodium Chloride 5.5 meq/Sodium Acetate 29.5 meq/ Potassium Chloride 20 meq/ Magnesium Chloride 5 meq/ Calcium Chloride 4.5 meq/ Multivitamins 10 ml/Folic Acid 1 mg/Insulin Human Regular 20 units/ Amino Acids/ Dextrose 1,042.3719 ml @ 42 mls/hr Q24H IV-CENTRAL 08/20/17 20:00 08/20/17 20:10 (Lanoxin Inj) 0.125 mg DAILY IV PUSH 08/21/17 09:00 08/22/17 09:45 (Tylenol) 650 mg Q4H PRN PO 08/21/17 14:15 08/21/17 22:54 Dexmedetomidine HCl 1000 mcg/ Sodium Chloride 250 ml @ 4.05 mls/hr TITRATE PRN IV 08/21/17 15:15 08/22/17 06:37 (Trandate Inj) 20 mg Q4H PRN IV PUSH 08/21/17 17:15 08/21/17 21:51 Cefepime HCl 2000 mg/Sodium Chloride 100 ml @ 200 mls/hr Q8H IV 08/21/17 18:00 08/22/17 09:42 Lines Line sites with no e.o infections. Past Medical History reviewed Allergies: Coded Allergies: No Known Allergies (Verified Allergy, Unknown, 08/15/17) Objective . Vital Signs Date Time Temp Pulse Resp B/P (MAP) Pulse Ox O2 Delivery O2 Flow Rate FiO2 08/26/17 11:33 98 Nasal Cannula 3.00 08/26/17 10:00 120 08/26/17 08:00 126 08/26/17 08:00 98.7 126 17 108/61 (77) 99 08/26/17 06:00 129 08/26/17 04:00 98.1 132 17 114/63 (80) 100 08/26/17 04:00 132 08/26/17 02:00 120 08/26/17 00:00 132 08/26/17 00:00 98.1 132 16 116/70 (85) 99 08/25/17 22:00 114 08/25/17 21:27 93 Nasal Cannula 3.00 08/25/17 20:00 120 08/25/17 20:00 120 15 127/55 (79) 99 08/25/17 18:00 107 08/25/17 16:00 107 08/25/17 16:00 98.2 107 12 105/65 (78) 95 08/25/17 14:00 122 08/26/17 08/26/17 08/27/17 15:00 23:00 07:00 Intake Total 200 ml Balance 200 ml IV Total 200 ml . Laboratory Tests Test 08/25/17 05:50 08/26/17 04:20 White Blood Count 15.8 TH/MM3 14.0 TH/MM3 Red Blood Count 2.52 MIL/MM3 2.49 MIL/MM3 Hemoglobin 8.0 GM/DL 7.7 GM/DL Hematocrit 23.4 % 23.2 % Mean Corpuscular Volume 93.1 FL 93.5 FL Mean Corpuscular Hemoglobin 31.6 PG 30.9 PG Mean Corpuscular Hemoglobin Concent 33.9 % 33.1 % Red Cell Distribution Width 13.6 % 13.8 % Platelet Count 300 TH/MM3 360 TH/MM3 Mean Platelet Volume 9.4 FL 9.1 FL Neutrophils (%) (Auto) 79.9 % 84.8 % Lymphocytes (%) (Auto) 12.7 % 7.8 % Monocytes (%) (Auto) 5.7 % 6.5 % Eosinophils (%) (Auto) 0.9 % 0.3 % Basophils (%) (Auto) 0.8 % 0.6 % Neutrophils # (Auto) 12.6 TH/MM3 11.9 TH/MM3 Lymphocytes # (Auto) 2.0 TH/MM3 1.1 TH/MM3 Monocytes # (Auto) 0.9 TH/MM3 0.9 TH/MM3 Eosinophils # (Auto) 0.1 TH/MM3 0.0 TH/MM3 Basophils # (Auto) 0.1 TH/MM3 0.1 TH/MM3 CBC Comment DIFF FINAL DIFF FINAL Differential Comment Laboratory Tests Test 08/24/17 22:30 08/25/17 05:55 08/26/17 01:35 08/26/17 04:20 Potassium Level 3.4 MEQ/L 2.7 MEQ/L 2.9 MEQ/L 3.5 MEQ/L Blood Urea Nitrogen 28 MG/DL 23 MG/DL Creatinine 0.70 MG/DL 0.62 MG/DL Random Glucose 121 MG/DL 127 MG/DL Total Protein 5.8 GM/DL Albumin 2.1 GM/DL Calcium Level 7.9 MG/DL 7.9 MG/DL Phosphorus Level 2.1 MG/DL 3.0 MG/DL 2.9 MG/DL Magnesium Level 1.7 MG/DL 1.9 MG/DL Alkaline Phosphatase 47 U/L Aspartate Amino Transf (AST/SGOT) 14 U/L Alanine Aminotransferase (ALT/SGPT) 12 U/L Total Bilirubin 0.7 MG/DL Sodium Level 146 MEQ/L 149 MEQ/L Chloride Level 105 MEQ/L 110 MEQ/L Carbon Dioxide Level 32.9 MEQ/L 31.3 MEQ/L Anion Gap 8 MEQ/L 8 MEQ/L Estimat Glomerular Filtration Rate 80 ML/MIN 92 ML/MIN Total Creatine Kinase 69 U/L Microbiology Date/Time Source Procedure Growth Status 08/26/17 08:35 Blood Peripheral Aerobic Blood Culture Pending Received 08/26/17 08:35 Blood Peripheral Anaerobic Blood Culture Pending Received 08/26/17 08:28 Blood Peripheral Aerobic Blood Culture Pending Received 08/26/17 08:28 Blood Peripheral Anaerobic Blood Culture Pending Received Imaging Last Impressions Abdomen X-Ray 08/21/17 0600 Signed Impressions: Service Date/Time: July 03:35 - CONCLUSION: The bowel gas pattern remains fairly unremarkable. Jl Stanley MD Chest X-Ray 08/21/17 0000 Signed Impressions: Service Date/Time: July 19:39 - CONCLUSION: 1. Stable tubes and lines, as above. 2. Worsening bilateral lower lung zone pleural parenchymal disease. Douglas Jean MD Lumbar Puncture Fluoroscopy 08/15/17 0000 Signed Impressions: Service Date/Time: Tuesday, August 15, 2017 15:36 - CONCLUSION: 1. Uncomplicated fluoroscopically guided lumbar puncture. 2. Please note, requested opening pressures were not obtained due to technical difficulties. Shashi Moreno MD Brain MRI 08/15/17 0000 Signed Impressions: Service Date/Time: Tuesday, August 15, 2017 16:57 - CONCLUSION: 1. 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 2. Mild stenosis in the upper cervical spine as above. Esau Martell MD Abdomen/Pelvis CT 08/15/17 0000 Signed Impressions: Service Date/Time: Wednesday, August 16, 2017 00:25 - CONCLUSION: 1. Abnormal thickening of the descending colonic wall and the possibility of colitis should be entertained. There is also thickening of distal ileal wall which may be inflammatory as well. 2. There is mild anasarca with edema or inflammatory changes within the bilateral paracolic gutters extending down into the pelvis. 3. Small bilateral pleural effusions and bibasilar atelectasis and/or infiltrate. 4. Prominent ileocecal valve and possibility of lipoma at this site is not excluded. Josseline Villagomez MD Abdomen Ultrasound 08/15/17 0000 Signed Impressions: Service Date/Time: Tuesday, August 15, 2017 10:40 - CONCLUSION: 1. No abnormality is identified to explain the clinical symptoms. There is no hydronephrosis. 2. The liver is normal in size and echotexture. Adan Machuca MD Head CT 08/14/172231 Signed Impressions: Service Date/Time: July 22:54 - CONCLUSION: Unremarkable study. Josseline Villagomez MD Physical Exam GENERAL: Awake, following simple commands, in no apparent distress. SKIN: No rashes, ecchymoses or lesions. Warm and dry. HEAD: Atraumatic. Normocephalic. No temporal or scalp tenderness. EYES: Pupils equal round and reactive. Extraocular motions intact. No scleral icterus. No injection or drainage. Has mild scleral edema ENT: Moist oral mucosa, no nasal drainage NECK: Trachea midline. Supple, nontender, CARDIOVASCULAR: + murmur, no gallops, rub RESPIRATORY: Bilateral rhonchi GASTROINTESTINAL: Abdomen distended, not tender, hypoactive bowels sounds, no guarding or rebound. MUSCULOSKELETAL: Extremities without clubbing, cyanosis. Has edema hands. No calf tenderness. Negative Homans sign bilaterally. NEUROLOGICAL: Opens eyes spontaneously, moves all 4 extremities. Psych: Cooperative IV line sites with no e.o infection. Assessment & Plan Remarks Assessment and Plan Fungemia in setting of bilateral UE DVT will treat as Septic thrombophlebitis. Sepsis. Pneumonia. sputum normal resp juancarlos. Staph epidermidis: likely pseudobacteremia/contaminant. Specimen from old line, already removed. Acute resp failure on vent Acute metabolic encephalopathy: appears resolving. Alcohol abuse: at risk for withdrawal. Acute rhabdomyolysis: ? seizures. Acute renal failure: sepsis, prerenal, rhabdomyolysis. Colitis clinically and radiologically ; likely ischemic - C diff negative Recs: Continue Cefepime IV reduce dose to q12hrs as no PSAE. Continue Flagyl for aspiration PNA and Colitis. Continue Micafungin IV (pending ID of yeast). On heparin for bilateral UE DVT for septic thrombophlebitis. If persistent fungemia will get repeat limited 2D ECHO. Appreciate Opthalm consult to r/o fungal endopthalmitis. Follow new C/S Follow dariusz D/W RN Spoke with daughter at bedside - updated on current work-up and treatment Piedad Corea MD Aug 26, 2017 12:26
[2017-08-26] MEDS ORDERED: DILTIAZEM HCL 25 MG/5 ML VIAL IV ONE ×2 (13:45→14:15)
[2017-08-26] MEDS ORDERED: DILTIAZEM INJ 125 MG in SODIUM CHLORIDE 0.9% INJ 100 ML IV PRN (14:15)
[2017-08-26] MEDS: DILTIAZEM 125 MG/NS 100 ML IV PRN ×4 (14:47→21:43)
[2017-08-26] MEDS: HEPARIN-D5W 25,000 U/250 ML 250 ML IV PRN (15:04)
[2017-08-26] MEDS ORDERED: METOPROLOL TARTRATE 5 MG/5 ML VIAL IV PUSH ONE ×2 (16:15→18:15)
[2017-08-27] VITALS (34 sets, daily range): BP systolic 92–126; BP diastolic 51–89; PULSE 69–122; RESP 27–45; TEMP 97.1–98.3; O2SAT 90–96
[2017-08-27] MEDS: RESP: ALBUTEROL 2.5 MG/IPRATROPIUM 0.5 MG NEB (SCH) NEB
[2017-08-27] MEDS: metroNIDAZOLE 500 MG INJ 100 ML IV SCH ×4 (01:52→20:07)
[2017-08-27] MEDS: CEFEPIME INJ 2,000 MG in SODIUM CHLORIDE 0.9% INJ 100 ML IV SCH ×2 (01:52→14:47)
[2017-08-27] MEDS: MELATONIN 5 MG TAB PO PRN (01:53)
[2017-08-27] MEDS: RESP: IPRATROPIUM 0.5 MG/2.5 ML NEB NEB SCH ×6 (03:48→23:11)
[2017-08-27] MEDS: INSULIN NovoLIN REGULAR SUPPLEMENTAL SCALE SQ SCH ×6 (04:00→20:00)
[2017-08-27] MEDS: POTASSIUM CHLORIDE 25 MEQ EFFERVESCENT TAB NG SCH ×3 (04:00→20:00)
[2017-08-27] MEDS: ARTIFICIAL TEARS OPTH SOLN 15 ML BTL EACH EYE SCH ×3 (04:06→20:08)
[2017-08-27 04:27] LABS: HEMATOCRIT 22.6 % (35.0-46.0); HEMOGLOBIN 7.6 GM/DL (11.6-15.3); MEAN CELL VOLUME 93.1 FL (80.0-100.0); MEAN CORPUSCULAR HEMOGLOBIN 31.2 PG (27.0-34.0); MEAN CORPUSCULAR HGB CONC 33.5 % (32.0-36.0); MEAN PLATELET VOLUME 9.1 FL (7.0-11.0); PLATELET COUNT 426 TH/MM3 (150-450); RED BLOOD COUNT 2.43 MIL/MM3 (4.00-5.30); RED CELL DISTRIBUTION WIDTH 13.7 % (11.6-17.2); WHITE BLOOD COUNT 17.2 TH/MM3 (4.0-11.0)
[2017-08-27 04:48] LABS: BICARBONATE 29.8 MEQ/L (21.0-32.0); CALCIUM 7.7 MG/DL (8.5-10.1); CREATININE 0.64 MG/DL (0.50-1.00); MAGNESIUM 1.7 MG/DL (1.5-2.5)
[2017-08-27 05:07] LABS: BANDS 15 % (0-6); CORRECTED NUCLEATED RBC 4 /100 WBC (0-0); LYMPHOCYTES 3 % (9-44); METAMYELOCYTES 1 % (0-1); MONOCYTES 3 % (0-8); NEUTROPHIL # MANUAL DIFF 16.2 TH/MM3 (1.8-7.7); NUCLEATED RED BLOOD CELL 4 (0-0); POLYS (SEG NEUTROPHILS) 78 % (16-70)
--- NOTE | 2017-08-27 05:51 | RADRPT ---
EXAM DATE/TIME: 08/27/2017 03:57 [facility] COMPARISON: CHEST SINGLE AP, August 25, 2017, 3:26. INDICATIONS : Short of breath. MEDICAL HISTORY : Hypertension. Diverticulitis. Arthritis. Renal failure SURGICAL HISTORY : Colon resection. Appendectomy. Hysterectomy. ENCOUNTER: Subsequent ACUITY: 2 weeks PAIN SCORE: 0/10 LOCATION: Bilateral chest FINDINGS: Patient has been extubated with NGT removed. There is a stable left IJ central line. Redemonstration of moderate bilateral pleural effusions with associated lower lobe airspace disease. Cardiomediastina l contours are stable. Remainder the exam is unchanged. CONCLUSION: 1. Status post extubation with NG tube removal. 2. Persistent moderate bilateral pleural effusions with associated lower lobe airspace disease. Douglas Jean MD on August 27, 2017 at 5:50 Board Certified Radiologist. This report was verified electronically.
[2017-08-27] MEDS: FERROUS SULFATE 300 MG /5ML UDC PO SCH ×2 (08:18→20:07)
[2017-08-27] MEDS: THIAMINE HCL 100 MG TAB PO SCH (08:19)
[2017-08-27] MEDS: DIGOXIN SOLUTION 0.125 MG/2.5 ML CUP PO SCH (08:19)
[2017-08-27] MEDS: ASPIRIN 81 MG CHEW TAB OG-TUBE SCH (08:19)
[2017-08-27] MEDS: METOPROLOL TARTRATE 25 MG TAB PO SCH ×2 (08:19→20:07)
[2017-08-27] MEDS: FOLIC ACID 1 MG TAB PO SCH (08:19)
[2017-08-27] MEDS: MULTIVITAMIN TAB PO SCH (08:19)
--- NOTE | 2017-08-27 08:37 | HHI.CCPN ---
Subjective Remarks/Hospital Course Patient is an 82-year-old female with past medical history of irritable bowel syndrome, hypertension, arthritis, diverticulitis who presented to the [facility] ED after she was found lying on her bed with urine and feces all around her bed. In addition, the patient was altered and obtunded. Most of the history was obtained from reviewing the medical records. Her laboratory data showed acute renal failure with BUN of 52, creatinine 3.39 and lactic acidosis with a lactic acid level of 6.3. In addition, the patient was in rhabdomyolysis with elevated CK at 3855. She was admitted under the hospitalist service; however, a [facility] was called due to worsening mental status, hypertension and hypoxemia. She was transferred to [facility] and critical care medicine was consulted for critical care management. When seen, the patient was lethargic, not following any commands, hypotensive. She was subsequently intubated by myself and a right internal jugular central line was placed for hemodynamic monitoring. ABG post intubation showed a pH of 7.31, co2 of 30, pA02 of 117, bicarbonate 15 and saturation of 96% on PRVC rate of 14, tidal volume 350 with IT:1, PEEP 5 and FIO2 of 100%. She was given two liter boluses of normal saline and placed on a bicarbonate drip. Her lactic acid level is trending down and is currently 3.4 from 6.3 on arrival. In addition, her renal function is improving with IV hydration. Her creatinine level is 2.29 from 3.39. Due to hypotension, Levophed was started. A CT scan of the brain in the emergency department was unremarkable. Her initial chest x-ray showed minimal basilar atelectasis, no effusions or pneumothoraces. According to the patient's family, the patient has been intermittently binge drinking. In addition, they report her having diarrhea for a few days. She had a low-grade fever with a temperature of 100.2 last night. 08/16 Patient is sedated with Fentanyl drip intubated and on Levophed 5 mics. On Bicarb drip. MRI brain yesterday showed small lacunar infarcts in left cerebellar hemisphere and right parietal lobe. Lp showed clear CSF, 17 wbc. Afebrile.Renal function worse today with Cr: 2.64 from 2.29 08/17 Patient remains sedated and intubated. On Bicarb drip. Off Levophed renal function slightly worse today with Cr: 2.82 from 2.64 and UOP: 550 ml in 24 hrs 08/18 Patient bit through ETT overnight s/p new ETT placement using tube exchanger. Sedated with Diprivan and Fentanyl. Afebrile. Renal function is improving with Cr: 1.97 from 2.82. On Bicarb drip. Tube feeds held for possible colonoscopy today. 08/19: Remains sedated, orally intubated on mechanical ventilation. Colonoscopy done yesterday revealed ischemic colitis. Has been evaluated by general surgery. Patient went into A. fib with RVR last night and was started on a Cardizem drip. On Levophed for hypotension 08/20: Remains sedated, orally intubated on mechanical ventilation. Started on TPN on 08/19. Cardizem drip turned off this morning. Received 1 dose of digoxin yesterday. 08/21: Remains sedated, orally intubated on mechanical ventilation. On TPN. Ordered Precedex as well as digoxin daily. Starting trophic feeds today. 08/22 Patient remains intubated on Precedex and Fentanyl infusion for sedation. afebrile. 08/23 WBC up to 17.7. Temp max 102.2. Blood culture sent today peripherally ( labelled as line draw initially but was not drawn from a line, lab notified to re-label). Tolerating trophic feeds. Awake and on CPAP 10/5 with RSBI 50s, became labored and desat with 5/5. Denies abdominal pain. Subjective: 08/24: Tmax 102.7 overnight. Currently 100.6. Noted yeast growing from blood culture 08/21. Remains in atrial fibrillation. Potassium currently been replaced. Currently only has once peripheral IV access. Will need central line placed later this afternoon. 08/25 Patient is awake and alert on CPAP trials. T: 101.1 last night. On Heparin and Bumex drips 08/26 Patient was extubated yesterday on 3L oxygen. She went into Afib with RVR last night given Labetalol. Afebrile. 08/27: Patient is slightly tachypneic, but maintaining O2 sat. chest x-ray shows at least moderate sized pleural effusions. Start Lasix 40 mg IV every 12 [address] Doe catheter for accurate intake output and also appears that patient has urinary retention. Remains in atrial fibrillation with RVR, on Cardizem at 15 mg per hour Objective Vital Signs Date Time Temp Pulse Resp B/P (MAP) Pulse Ox O2 Delivery O2 Flow Rate FiO2 08/27/17 06:00 112 08/27/17 04:00 98.1 31 111/76 (88) 90 08/26/17 20:13 Nasal Cannula 3.00 08/25/17 08:00 40 Intake and Output 08/27/17 08/27/17 08/27/17 07:59 15:59 23:59 Intake Total 250 ml Output Total 100 ml Balance 150 ml Result Diagram: 08/27/17 0400 08/27/17 0400 Imaging Last Impressions Chest X-Ray 08/25/17 0600 Signed Impressions: Service Date/Time: Friday, August 25, 2017 03:26 - CONCLUSION: 1. Stable tubes and lines, as above. 2. Stable small bilateral pleural effusions and associated bibasilar airspace disease. Douglas Jaen MD Abdomen/Pelvis CT 08/23/17 1426 Signed Impressions: Service Date/Time: Wednesday, August 23, 2017 22:50 - CONCLUSION: 1. Suspected mild diffuse colitis, nonspecific but presumably infectious or inflammatory. No obstruction or abscess. 2. Trace ascites about the same there is worsening anasarca and worsening pleural effusions and consolidation of both lung bases. 3. Tiny nonobstructing stone of the right kidney and a generally benign appearing cyst lower pole the left kidney. No evidence of obstructive uropathy or other etiology for acute renal failure. 4. Atherosclerotic aorta. No aneurysm. Adan Nunes MD Upper Extremity Ultrasound 08/23/17 0000 Signed Impressions: Service Date/Time: Wednesday, August 23, 2017 16:25 - CONCLUSION: Bilateral upper extremity DVT as described above. Samuel Peralta MD Lower Extremity Ultrasound 08/23/17 0000 Signed Impressions: Service Date/Time: Wednesday, August 23, 2017 15:50 - CONCLUSION: 1. There is incomplete compression of the left common femoral vein raising suspicion for nonocclusive thrombus. This vessel, however, still demonstrates normal Doppler blood flow and respiratory variability. 2. The remaining veins of the left lower extremity are patent and the entire right lower extremity is patent without thrombus. Adan Machuca MD Abdomen X-Ray 08/21/17 0600 Signed Impressions: Service Date/Time: July 03:35 - CONCLUSION: The bowel gas pattern remains fairly unremarkable. Jl Stanley MD Lumbar Puncture Fluoroscopy 08/15/17 0000 Signed Impressions: Service Date/Time: Tuesday, August 15, 2017 15:36 - CONCLUSION: 1. Uncomplicated fluoroscopically guided lumbar puncture. 2. Please note, requested opening pressures were not obtained due to technical difficulties. Shashi Moreno MD Brain MRI 08/15/17 0000 Signed Impressions: Service Date/Time: Tuesday, August 15, 2017 16:57 - CONCLUSION: 1. 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 2. Mild stenosis in the upper cervical spine as above. Esau Martell MD Abdomen Ultrasound 08/15/17 0000 Signed Impressions: Service Date/Time: Tuesday, August 15, 2017 10:40 - CONCLUSION: 1. No abnormality is identified to explain the clinical symptoms. There is no hydronephrosis. 2. The liver is normal in size and echotexture. Adan Machuca MD Head CT 08/14/172 Signed Impressions: Service Date/Time: July 22:54 - CONCLUSION: Unremarkable study. Josseline Villagomez MD Objective Remarks GENERAL: 82-year-old female currently lying in bed in bed, mildly tachypneic SKIN: Warm and dry. Generalized Anasarca HEAD: Normocephalic. EYES: Pupils equal and reactive bilaterally about 3 mm. No scleral icterus. No injection or drainage. NECK: Supple, trachea midline. No JVD or lymphadenopathy. Orally intubated. Right IJ site without erythema CARDIOVASCULAR: Tachycardic, IRR. S1, S2 no S4. No murmurs appreciated RESPIRATORY: Diminished breath sounds bilateral bases. No wheezing appreciated. GASTROINTESTINAL: Abdomen soft, non-tender, minimally distended. Bowel sounds hypoactive but present. No guarding or rigidity MUSCULOSKELETAL: No significant peripheral edema. NEURO: Awake and alert. 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 Monitor neuro status and avoid sedatives. Oxycodone 5 mg every 6 hours scheduled, change to PRN UDS is negative 08/15: CT brain negative for acute intracranial process MRI brain: Small lacunar infarcts in left cerebellar hemisphere and right parietal lobe EEG: Severe encephalopathy Continue thiamine, multivitamin and folic acid daily. Repeat EEG 08/21.- generalized slowing, no epileptiform features Neuro is following- Dr. Danielle LP showed clear CSF, 17 WBC, TP:45.2 Previously on chlordiazepoxide 25 mg 3 times a day Pulm: Acute respiratory failure Bilateral pleural effusions Continue with oxygen keep sat >92% Bronchodilators( d/c Albuterol due to tachycardia and place on Atrovent nebs) Incentive spirometry Q1 he while awake. Starting IV Lasix as below CV: Atrial fibrillation, with RVR Systolic heart failure unknown if acute or chronic Fluid overload Monitor HR and BP keep MAP>65mmHg. Lopressor 50mg Q12, On Digoxin 0.125 mg daily. Digoxin level 0.8 08/25 Continue Cardizem infusion Troponin is trended down. Echo showed EF 45-50% Continue aspirin 81 mg by mouth daily/home medication Start IV Lasix 40 mg every 12, continue potassium replacement Renal/FEN/: Acute kidney injury, resolved Lactic acidemia, resolved Rhabdomyolysis resolved Hypernatremia Hypokalemia Hypophosphatemia Right-sided nephrolithiasis/nonobstructing Left renal cyst Monitor renal function, intake and output and avoid nephrotoxins. Renal has followed-Dr. Figueroa, US abdomen: No hydronephrosis CT Abd/pelvis revealed nonobstructing right-sided nephrolithiasis and left renal cyst. GI: Ischemic colitis Severe acute on Chronic protein energy malnutrition AST elevation secondary to alcohol use Internal and external hemorrhoids On PO diet per speech advance as ligia. Discussed with surgery On famotidine 20 mg twice a day for GI prophylaxis. Monitor LFT's( resolved) US liver: No abnormalities identified GI is following- colonoscopy showed diffuse colitis in the sigmoid colon and descending colon; Necrotic, dusky appearing mucosa. Consistent with severe ischemic colitis. General surgery, Dr. Guadalupe -plan to treat conservatively unless patient worsens clinically. Repeat CT abdomen and pelvis 08/23 mild diffuse colitis ID: Septic shock resolved UTI Ischemic colitis Fungemia Abx per ID (Cefepime, metronidazole, micafungin) Dr. Davis. Seen by Opth no evidence of endophthalmitis Pertinent cultures 08/23 - blood culture by line (actually peripheral) - coag neg staph 08/21 - blood culture - no growth 08/21 - sputum - no growth 08/21 - - no growth 08/21 - blood culture - Yeast Felipa parapsilosis 08/15 - CSF - negative 08/15 - sputum - no growth 08/14 - blood cultures 2 and UA - no growth C-diff PCR is negative, stool studies negative s/p LP showed clear CSF, 17 WBC, TP:45.2, HSV DNA PCR neg Endo: Hyperglycemia of critical illness/steroid SSI with Novolin R medium with Accu-Chek every 4 hours for glycemic control. TSH: 1.15. Heme: Leukocytosis Normocytic anemia B/L UE DVT Possible left common femoral vein DVT Left cephalic/basilic to professional and right superficial cephalic thrombus Monitor CBC, coags- on Heparin drip Iron sulfate 300 mg by tube twice a day GI prophylaxis with famotidine and DVT prophylaxis with SCDs, Heparin drip Lines: Peripheral IV. Right IJ Central line removed 08/22. , Right radial Art line placed 08/15, has been removed 08/18 Discuss with daughter at bedside and all questions answered Level III follow-up Juliana Arellano MD Aug 27, 2017 08:37
[2017-08-27] MEDS ORDERED: MAGNESIUM SULFATE 1 GM PREMIX 100 ML IV ONE (09:00)
[2017-08-27] MEDS: SODIUM CHLORIDE 0.9% FLUSH 10 ML FLUSH IV FLUSH SCH ×3 (09:11→20:08)
[2017-08-27] MEDS: FUROSEMIDE 40 MG/4 ML VIAL IV PUSH SCH ×2 (10:34→17:26)
[2017-08-27] MEDS: FAMOTIDINE 40 MG/5 ML LIQ 50 ML BTL NG SCH ×2 (10:35→20:07)
--- NOTE | 2017-08-27 11:29 | HHI.IDPN ---
Subjective Subjective Remarks Ms. Olson is an 82 year old female with past medical history of hypertension, possible sleep apnea, chronic neck pain, sciatica, alcohol abuse, arthritis, chronic rectal prolapse with bowel incontinence and anxiety. Patients daughter reports she was away for last week (normally she lives with Mom). She checked on her mom each night. The night prior to admission patient and daughter spoke to each other and no reported fever or change in behavior etc noted. No recent bounced checks, change in behavior, fires, falls or doors left unopened or such security concerns. She was found by her daughter lying in bed. On questioning patient was not found vomiting and no seizures. But patient was found in urine and feces. With this background patient presented to [facility] ER on when daughter arrived home to find patient laying on the bed covered in urine and feces. She was obtunded and 911 was called. Upon arrival to the ER: * VS - 100.2, HR 104, RR 18, BP 125/55, O2 sat 95% on room air. * WBC 10.2, hgb 13.8, hct 41.6, platelets 304, neutrophils 91.3% * BUN 52, creatinine 3.39, glucose 177, sodium 141, potassium 5.1, chloride 103 , GFR 13 * Lactic acid 6.3 * TCK 3855, CK-MB 113.6, CK-MB 2.9% * CT head - unremarkable * CXR - minimal basilar atelectasis, no effusion or pneumothorax Patient was admitted to the [facility] Hospitalist service for severe dehydration. acute renal failure, rhabdomyolysis, lactic acidosis, possible UTI, sepsis. Overnight she developed tachycardia, hypotension and hypoxemia. She was transferred to ICU placed on pressor support. She was started on heparin drip per PE protocol. Cytogenetics Laboratory Manager was consulted for hypotension, septic shock. On non -rebreather with with oxygen saturation 90% and BP 79/50. Since admission she was intubated and placed on mech vent. Infectious disease consulted for evaluation and M'ment of Pneumonia and Colitis. Overnight events reviewed. No fevers No rash Diarrhea cdiff negative on 08/21/17. Resp distress, on BiPAP and recd lasix. CCM considering reintubation. Colonoscopy C/W severe ischemic colitis Antibiotics Current Medications Medications (Trade) Dose Ordered Sig/Al Route Start Time Stop Time Status Last Admin (NS Flush) 2 ml UNSCH PRN IV FLUSH 08/15/17 02:00 08/21/17 11:15 (NS Flush) 2 ml BID IV FLUSH 08/15/17 09:00 08/27/17 09:11 (Narcan Inj) 0.4 mg UNSCH PRN IV PUSH 08/15/17 02:00 Metronidazole 100 ml @ 100 mls/hr Q6H IV 08/15/17 08:00 08/27/17 08:18 Miscellaneous Information Patient in critical care unit? Ass... Q361D .XX 08/15/17 06:15 08/15/17 06:15 (Romazicon Inj) 0.2 mg Q1M PRN IV PUSH 08/15/17 06:30 (Vitamin B1) 100 mg DAILY PO 08/15/17 12:00 08/27/17 08:19 (Theragran) 1 tab DAILY PO 08/15/17 12:00 08/27/17 08:19 (Folate) 1 mg DAILY PO 08/15/17 12:00 08/27/17 08:19 (Aspirin Chew) 81 mg DAILY OG-TUBE 08/15/17 19:00 08/27/17 08:19 (D50w (Vial) Inj) 50 ml UNSCH PRN IV PUSH 08/16/17 08:00 (Glucagon Inj) 1 mg UNSCH PRN OTHER 08/16/17 08:00 (NovoLIN R SUPPLEMENTAL SCALE) 1 Q4HR SQ 08/16/17 08:00 08/26/17 16:00 (Trandate Inj) 20 mg Q4H PRN IV PUSH 08/21/17 17:15 08/21/17 21:51 Micafungin Sodium 100 mg/Sodium Chloride 100 ml @ 100 mls/hr Q24H IV 08/22/17 11:00 08/26/17 11:24 (Melatonin) 5 mg HS PRN PO 08/23/17 19:00 08/27/17 01:53 (K-Lyte Cl Eff) 25 meq Q8H NG 08/23/17 20:00 08/27/17 04:00 Heparin Sodium/ Dextrose 250 ml @ 10 mls/hr TITRATE PRN IV 08/24/17 03:00 08/26/17 15:04 (Tears Naturale Opth Soln) 1 drop Q8HR EACH EYE 08/24/17 14:00 08/27/17 04:06 (Tylenol 650 Mg/ 20 ml Liq) 650 mg Q6H PRN NG 08/24/17 13:00 (Pepcid Liq) 20 mg BID NG 08/24/17 21:00 08/27/17 10:35 (Lanoxin Liq) 0.125 mg DAILY PO 08/25/17 09:00 08/27/17 08:19 (Ferrous Sulfate Liq) 300 mg BID PO 08/24/17 21:00 08/27/17 08:18 (Brethine Inj) 1 mg UNSCH PRN SQ 08/24/17 17:15 (NS Flush) DAILY IV FLUSH 08/25/17 09:00 08/27/17 09:11 (NS Flush) UNSCH PRN IV FLUSH 08/24/17 17:45 Cefepime HCl 2000 mg/Sodium Chloride 100 ml @ 200 mls/hr Q12H IV 08/25/17 14:00 08/27/17 01:52 (Duoneb Neb) 1 ampule Q4HR NEB NEB 08/25/17 12:00 08/25/17 21:21 (Duoneb Neb) 1 ampule Q2HR NEB PRN NEB 08/25/17 10:00 Miscellaneous Information D/C ICU ELECTROLYTE ORDERS... UNSCH PRN .XX 08/25/17 15:00 Miscellaneous Information ICU - CALL ORDERING PHYSIC... UNSCH PRN .XX 08/25/17 15:00 Potassium Chloride 100 ml @ 25 mls/hr UNSCH PRN IV 08/25/17 15:00 08/26/17 12:35 (K-Lyte Cl Eff) 50 meq UNSCH PRN PO 08/25/17 15:00 Potassium Chloride 100 ml @ 50 mls/hr UNSCH PRN IV 08/25/17 15:00 Magnesium Sulfate 4 gm/Sodium Chloride 108 ml @ 54 mls/hr UNSCH PRN IV 08/25/17 15:00 Magnesium Sulfate 2 gm/Sodium Chloride 104 ml @ 52 mls/hr UNSCH PRN IV 08/25/17 15:00 (Mag-Ox) 800 mg UNSCH PRN PO 08/25/17 15:00 Sodium Phosphate 30 mmol/Sodium Chloride 260 ml @ 43.333 mls/ hr UNSCH PRN IV 08/25/17 15:00 (K-Phos) 2,000 mg UNSCH PRN PO 08/25/17 15:00 Potassium Phosphate 30 mmol/ Sodium Chloride 260 ml @ 43.333 mls/ hr UNSCH PRN IV 08/25/17 15:00 08/25/17 14:58 Fluconazole/ Sodium Chloride 400 ml @ 100 mls/hr Q24H IV 08/26/17 08:00 08/26/17 08:38 (Lopressor) 50 mg Q12HR PO 08/26/17 09:00 08/27/17 08:19 (Atrovent Neb) 0.5 mg Q2HR NEB PRN NEB 08/26/17 08:00 (Atrovent Neb) 0.5 mg Q4HR NEB NEB 08/26/17 08:00 08/27/17 11:04 (Pill Splitter) 1 ea UNSCH PRN OTHER 08/26/17 08:30 Diltiazem HCl 125 mg/Sodium Chloride 125 ml @ 5 mls/hr TITRATE PRN IV 08/26/17 14:30 08/26/17 21:43 (Roxicodone) 5 mg Q6H PRN PO 08/27/17 13:00 (Lasix Inj) 40 mg BID@,18 IV PUSH 08/27/17 09:00 08/27/17 10:34 (Morphine Inj) 1 mg Q4H PRN IV 08/27/17 11:00 Lines Line sites with no e.o infections. Past Medical History reviewed Allergies: Coded Allergies: No Known Allergies (Verified Allergy, Unknown, 08/15/17) Objective . Vital Signs Date Time Temp Pulse Resp B/P (MAP) Pulse Ox O2 Delivery O2 Flow Rate FiO2 08/27/17 11:01 95 40 08/27/17 08:32 96 Nasal Cannula 3.00 08/27/17 06:00 112 08/27/17 04:00 113 08/27/17 04:00 98.1 113 31 111/76 (88) 90 08/27/17 02:00 111 08/27/17 00:00 122 08/27/17 00:00 98.3 122 27 115/79 (91) 91 2/27/18 22:00 93 08/26/17 21:43 107 122/90 08/26/17 20:13 99 Nasal Cannula 3.00 08/26/17 20:00 98.0 104 24 124/67 (86) 95 08/26/17 20:00 133 08/26/17 19:00 118 25 105/58 (74) 97 08/26/17 18:00 109 08/26/17 18:00 109 08/26/17 16:00 98.5 130 24 110/57 (74) 97 08/26/17 16:00 130 08/26/17 15:15 124 108/63 08/26/17 15:00 126 08/26/17 15:00 126 08/26/17 15:00 126 23 109/57 (74) 93 08/26/17 14:47 120 125/71 08/26/17 14:44 110 21 101/58 (72) 93 08/26/17 14:00 124 08/26/17 12:00 98.6 133 17 125/71 (89) 100 08/26/17 12:00 133 08/26/17 11:33 98 Nasal Cannula 3.00 08/27/17 08/27/17 08/28/17 15:00 23:00 07:00 Output Total 800 ml Balance -800 ml Output Urine Total 800 ml . Laboratory Tests Test 08/26/17 04:20 08/27/17 04:00 White Blood Count 14.0 TH/MM3 17.2 TH/MM3 Red Blood Count 2.49 MIL/MM3 2.43 MIL/MM3 Hemoglobin 7.7 GM/DL 7.6 GM/DL Hematocrit 23.2 % 22.6 % Mean Corpuscular Volume 93.5 FL 93.1 FL Mean Corpuscular Hemoglobin 30.9 PG 31.2 PG Mean Corpuscular Hemoglobin Concent 33.1 % 33.5 % Red Cell Distribution Width 13.8 % 13.7 % Platelet Count 360 TH/MM3 426 TH/MM3 Mean Platelet Volume 9.1 FL 9.1 FL Neutrophils (%) (Auto) 84.8 % Lymphocytes (%) (Auto) 7.8 % Monocytes (%) (Auto) 6.5 % Eosinophils (%) (Auto) 0.3 % Basophils (%) (Auto) 0.6 % Neutrophils # (Auto) 11.9 TH/MM3 Lymphocytes # (Auto) 1.1 TH/MM3 Monocytes # (Auto) 0.9 TH/MM3 Eosinophils # (Auto) 0.0 TH/MM3 Basophils # (Auto) 0.1 TH/MM3 CBC Comment DIFF FINAL AUTO DIFF Differential Comment FINAL DIFF MANUAL Differential Total Cells Counted 100 Neutrophils % (Manual) 78 % Band Neutrophils % 15 % Lymphocytes % 3 % Monocytes % 3 % Neutrophils # (Manual) 16.2 TH/MM3 Metamyelocytes 1 % Nucleated Red Blood Cells 4 /100 WBC Platelet Estimate NORMAL Platelet Morphology Comment ENLARGED Laboratory Tests Test 08/26/17 01:35 08/26/17 04:20 08/26/17 20:00 08/27/17 04:00 Potassium Level 2.9 MEQ/L 3.5 MEQ/L 4.0 MEQ/L 3.7 MEQ/L Phosphorus Level 3.0 MG/DL 2.9 MG/DL 2.0 MG/DL Blood Urea Nitrogen 23 MG/DL 24 MG/DL Creatinine 0.62 MG/DL 0.64 MG/DL Random Glucose 127 MG/DL 143 MG/DL Calcium Level 7.9 MG/DL 7.7 MG/DL Magnesium Level 1.9 MG/DL 1.7 MG/DL Sodium Level 149 MEQ/L 149 MEQ/L Chloride Level 110 MEQ/L 112 MEQ/L Carbon Dioxide Level 31.3 MEQ/L 29.8 MEQ/L Anion Gap 8 MEQ/L 7 MEQ/L Estimat Glomerular Filtration Rate 92 ML/MIN 89 ML/MIN Microbiology Date/Time Source Procedure Growth Status 08/26/17 08:35 Blood Peripheral Aerobic Blood Culture - Preliminary NO GROWTH IN 1 DAY Resulted 08/26/17 08:35 Blood Peripheral Anaerobic Blood Culture - Preliminary NO GROWTH IN 1 DAY Resulted 08/26/17 08:28 Blood Peripheral Aerobic Blood Culture - Preliminary NO GROWTH IN 1 DAY Resulted 08/26/17 08:28 Blood Peripheral Anaerobic Blood Culture - Preliminary NO GROWTH IN 1 DAY Resulted Imaging Last Impressions Abdomen X-Ray 08/21/17 0600 Signed Impressions: Service Date/Time: July 03:35 - CONCLUSION: The bowel gas pattern remains fairly unremarkable. Jl Stanley MD Chest X-Ray 08/21/17 0000 Signed Impressions: Service Date/Time: July 19:39 - CONCLUSION: 1. Stable tubes and lines, as above. 2. Worsening bilateral lower lung zone pleural parenchymal disease. Douglas Jean MD Lumbar Puncture Fluoroscopy 08/15/17 0000 Signed Impressions: Service Date/Time: Tuesday, August 15, 2017 15:36 - CONCLUSION: 1. Uncomplicated fluoroscopically guided lumbar puncture. 2. Please note, requested opening pressures were not obtained due to technical difficulties. Shashi Moreno MD Brain MRI 08/15/17 0000 Signed Impressions: Service Date/Time: Tuesday, August 15, 2017 16:57 - CONCLUSION: 1. 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 2. Mild stenosis in the upper cervical spine as above. Esau Martell MD Abdomen/Pelvis CT 08/15/17 0000 Signed Impressions: Service Date/Time: Wednesday, August 16, 2017 00:25 - CONCLUSION: 1. Abnormal thickening of the descending colonic wall and the possibility of colitis should be entertained. There is also thickening of distal ileal wall which may be inflammatory as well. 2. There is mild anasarca with edema or inflammatory changes within the bilateral paracolic gutters extending down into the pelvis. 3. Small bilateral pleural effusions and bibasilar atelectasis and/or infiltrate. 4. Prominent ileocecal valve and possibility of lipoma at this site is not excluded. Josseline Villagomez MD Abdomen Ultrasound 08/15/17 0000 Signed Impressions: Service Date/Time: Tuesday, August 15, 2017 10:40 - CONCLUSION: 1. No abnormality is identified to explain the clinical symptoms. There is no hydronephrosis. 2. The liver is normal in size and echotexture. Adan Machuca MD Head CT 08/14/172231 Signed Impressions: Service Date/Time: July 22:54 - CONCLUSION: Unremarkable study. Josseline Villagomez MD Physical Exam GENERAL: Awake, following simple commands, in no apparent distress. SKIN: No rashes, ecchymoses or lesions. Warm and dry. HEAD: Atraumatic. Normocephalic. No temporal or scalp tenderness. EYES: Pupils equal round and reactive. Extraocular motions intact. No scleral icterus. No injection or drainage. Has mild scleral edema ENT: Moist oral mucosa, no nasal drainage NECK: Trachea midline. Supple, nontender, CARDIOVASCULAR: + murmur, no gallops, rub RESPIRATORY: Bilateral rhonchi GASTROINTESTINAL: Abdomen distended, not tender, hypoactive bowels sounds, no guarding or rebound. MUSCULOSKELETAL: Extremities without clubbing, cyanosis. Has edema hands. No calf tenderness. Negative Homans sign bilaterally. NEUROLOGICAL: Opens eyes spontaneously, moves all 4 extremities. Psych: Cooperative IV line sites with no e.o infection. Assessment & Plan Remarks Assessment and Plan Fungemia in setting of bilateral UE DVT will treat as Septic thrombophlebitis. Sepsis. Pneumonia. sputum normal resp juancarlos. Staph epidermidis: likely pseudobacteremia/contaminant. Specimen from old line, already removed. Acute resp failure on vent Acute metabolic encephalopathy: appears resolving. Alcohol abuse: at risk for withdrawal. Acute rhabdomyolysis: ? seizures. Acute renal failure: sepsis, prerenal, rhabdomyolysis. Colitis clinically and radiologically ; likely ischemic - C diff negative Recs: Continue Cefepime IV reduce dose to q12hrs as no PSAE. Continue Flagyl for aspiration PNA and Colitis. Continue Micafungin IV and Diflucan for C.Parapsilosis fungal septic thrombophlebitis. On heparin for bilateral UE DVT for septic thrombophlebitis per [facility]. If persistent fungemia will get repeat limited 2D ECHO. Appreciate Opthalm consult ruled out fungal endopthalmitis. Follow dariusz D/W RN Spoke with daughter at bedside - updated on current work-up and treatment Piedad Corea MD Aug 27, 2017 11:29
[2017-08-27] MEDS: FLUCONAZOLE 400 MG PREMIX BAG 400 ML IV SCH (11:40)
[2017-08-27] MEDS ORDERED: FUROSEMIDE 20 MG/2 ML VIAL IV PUSH STA (11:41)
[2017-08-27] MEDS: ICU - POTASSIUM PHOSPHATE 30 MMOL/NS 250 ML IV PRN ×2 (12:01)
--- NOTE | 2017-08-27 12:19 | HHI.HCPN ---
Reason for visit a. To assist with evaluation and management of symptoms including: dyspnea, weakness. b. To assist medical decision maker(s) with: better understanding of current medical conditions; weighing benefits/burdens of medical treatment options; making medical treatment decisions. . Subjective/Interval History Patient seen and examined in ICU. No family at bedside. Discussed with Dr. Arellano and nursing staff. Will attempt to address GOC with patient later today per Dr. Arellano request, he wants her to rest this morning as she was just placed on BiPAP. Patient is tachypneic, now on BiPAP. Tachycardic rate 110-122. Afebrile. Vital signs stable. WBC 17.2, hemoglobin 7.6, platelet 426. 08/26/17 blood culture no growth 1 days. ID following. Chest xray persistent small bilateral pleural effusions and associated bibasilar airspace disease. . Family/friend interactions No family at bedside. . Advance Directives Living Will: Never completed Health Care Surrogate: Never completed Durable Power of Residential Real Estate Agent: Never completed Advance Directive Specifics Health Care Surrogate(s): Living Will copy obtained. According to her Living Will she names daughterSilvia as primary HCS and son Jl Olson as alternate HCS. . Documented care wishes: Standard Living Will on chart. . Significant change in goals: FULL CODE. Family goals remain aggressive. . Objective Vital Signs Date Time Temp Pulse Resp B/P (MAP) Pulse Ox O2 Delivery O2 Flow Rate FiO2 08/27/17 11:01 95 40 08/27/17 08:32 96 Nasal Cannula 3.00 08/27/17 06:00 112 08/27/17 04:00 113 08/27/17 04:00 98.1 113 31 111/76 (88) 90 08/27/17 02:00 111 08/27/17 00:00 122 08/27/17 00:00 98.3 122 27 115/79 (91) 91 08/26/17 22:00 93 08/26/17 21:43 107 122/90 08/26/17 20:13 99 Nasal Cannula 3.00 08/26/17 20:00 98.0 104 24 124/67 (86) 95 08/26/17 20:00 133 08/26/17 19:00 118 25 105/58 (74) 97 08/26/17 18:00 109 08/26/17 18:00 109 08/26/17 16:00 98.5 130 24 110/57 (74) 97 08/26/17 16:00 130 08/26/17 15:15 124 108/63 08/26/17 15:00 126 08/26/17 15:00 126 08/26/17 15:00 126 23 109/57 (74) 93 08/26/17 14:47 120 125/71 08/26/17 14:44 110 21 101/58 (72) 93 08/26/17 14:00 124 Intake & Output 08/27/17 08/27/17 07:00 19:00 Intake Total 450 ml Output Total 100 ml 800 ml Balance 350 ml -800 ml Intake Oral 50 ml IV Total 400 ml Output Urine Total 100 ml 800 ml Physical Exam CONSTITUTIONAL/GENERAL: This is a well nourished patient, in no apparent distress. TUBES/LINES/DRAINS: BiPAP, Central line, PIV, Doe, SCDs. SKIN: No jaundice, rashes, or lesions. Ecchymoses on upper extremities. Skin temperature appropriate. Not diaphoretic. CARDIOVASCULAR: tachycardic, + murmur. RESPIRATORY/CHEST: Tachypneic on BiPAP. Labored respirations. GASTROINTESTINAL: Abdomen soft, distended. Hypoactive bowel sounds. GENITOURINARY: Without palpable bladder distension. Doe catheter in place. MUSCULOSKELETAL: Extremities with pitting edema. No mottling or clubbing. NEUROLOGICAL: Awakens. lethargic. PSYCHIATRIC: denies anxiety. . Diagnostic Tests Laboratory Laboratory Tests Test 08/24/17 22:30 08/25/17 05:50 08/25/17 05:55 08/25/17 08:00 Potassium Level 3.4 MEQ/L (3.5-5.1) 2.7 MEQ/L (3.5-5.1) White Blood Count 15.8 TH/MM3 (4.0-11.0) Red Blood Count 2.52 MIL/MM3 (4.00-5.30) Hemoglobin 8.0 GM/DL (11.6-15.3) Hematocrit 23.4 % (35.0-46.0) Mean Corpuscular Volume 93.1 FL (80.0-100.0) Mean Corpuscular Hemoglobin 31.6 PG (27.0-34.0) Mean Corpuscular Hemoglobin Concent 33.9 % (32.0-36.0) Red Cell Distribution Width 13.6 % (11.6-17.2) Platelet Count 300 TH/MM3 (150-450) Mean Platelet Volume 9.4 FL (7.0-11.0) Neutrophils (%) (Auto) 79.9 % (16.0-70.0) Lymphocytes (%) (Auto) 12.7 % (9.0-44.0) Monocytes (%) (Auto) 5.7 % (0.0-8.0) Eosinophils (%) (Auto) 0.9 % (0.0-4.0) Basophils (%) (Auto) 0.8 % (0.0-2.0) Neutrophils # (Auto) 12.6 TH/MM3 (1.8-7.7) Lymphocytes # (Auto) 2.0 TH/MM3 (1.0-4.8) Monocytes # (Auto) 0.9 TH/MM3 (0-0.9) Eosinophils # (Auto) 0.1 TH/MM3 (0-0.4) Basophils # (Auto) 0.1 TH/MM3 (0-0.2) CBC Comment DIFF FINAL Differential Comment Blood Urea Nitrogen 28 MG/DL (7-18) Creatinine 0.70 MG/DL (0.50-1.00) Random Glucose 121 MG/DL (74-106) Total Protein 5.8 GM/DL (6.4-8.2) Albumin 2.1 GM/DL (3.4-5.0) Calcium Level 7.9 MG/DL (8.5-10.1) Phosphorus Level 2.1 MG/DL (2.5-4.9) Magnesium Level 1.7 MG/DL (1.5-2.5) Alkaline Phosphatase 47 U/L (45-117) Aspartate Amino Transf (AST/SGOT) 14 U/L (15-37) Alanine Aminotransferase (ALT/SGPT) 12 U/L (10-53) Total Bilirubin 0.7 MG/DL (0.2-1.0) Sodium Level 146 MEQ/L (136-145) Chloride Level 105 MEQ/L (98-107) Carbon Dioxide Level 32.9 MEQ/L (21.0-32.0) Anion Gap 8 MEQ/L (5-15) Estimat Glomerular Filtration Rate 80 ML/MIN (>89) Total Creatine Kinase 69 U/L (26-192) Digoxin Level 0.8 NG/ML (0.8-2.0) Blood Gas Puncture Site LT RADIAL Blood Gas Patient Temperature 98.6 Blood Gas HCO3 31 mmol/L (22-26) Blood Gas Base Excess 8.0 mmol/L (-2-2) Blood Gas Oxygen Saturation 96 % (90-100) Arterial Blood pH 7.56 (7.380-7.420) Arterial Blood Partial Pressure CO2 35 mmHg (38-42) Arterial Blood Partial Pressure O2 102 mmHg (61-120) Arterial Blood Oxygen Content 10.8 Vol % (12.0-20.0) Arterial Blood Carboxyhemoglobin 1.0 % (0-4) Arterial Blood Methemoglobin 1.1 % (0-2) Blood Gas Hemoglobin 7.9 G/DL (12.0-16.0) Oxygen Delivery Device VENTILATOR Blood Gas Ventilator Setting CPAP 5/10PS Blood Gas Inspired Oxygen 35 % Test 08/25/17 08:48 08/25/17 08:49 08/25/17 18:19 08/26/17 01:35 Activated Partial Thromboplast Time 67.8 SEC (24.3-30.1) 54.8 SEC (24.3-30.1) 51.1 SEC (24.3-30.1) Vancomycin Level Trough 13.3 MCG/ML (5.0-10.0) Potassium Level 2.9 MEQ/L (3.5-5.1) Phosphorus Level 3.0 MG/DL (2.5-4.9) Test 08/26/17 04:20 08/26/17 20:00 08/27/17 04:00 White Blood Count 14.0 TH/MM3 (4.0-11.0) 17.2 TH/MM3 (4.0-11.0) Red Blood Count 2.49 MIL/MM3 (4.00-5.30) 2.43 MIL/MM3 (4.00-5.30) Hemoglobin 7.7 GM/DL (11.6-15.3) 7.6 GM/DL (11.6-15.3) Hematocrit 23.2 % (35.0-46.0) 22.6 % (35.0-46.0) Mean Corpuscular Volume 93.5 FL (80.0-100.0) 93.1 FL (80.0-100.0) Mean Corpuscular Hemoglobin 30.9 PG (27.0-34.0) 31.2 PG (27.0-34.0) Mean Corpuscular Hemoglobin Concent 33.1 % (32.0-36.0) 33.5 % (32.0-36.0) Red Cell Distribution Width 13.8 % (11.6-17.2) 13.7 % (11.6-17.2) Platelet Count 360 TH/MM3 (150-450) 426 TH/MM3 (150-450) Mean Platelet Volume 9.1 FL (7.0-11.0) 9.1 FL (7.0-11.0) Neutrophils (%) (Auto) 84.8 % (16.0-70.0) Lymphocytes (%) (Auto) 7.8 % (9.0-44.0) Monocytes (%) (Auto) 6.5 % (0.0-8.0) Eosinophils (%) (Auto) 0.3 % (0.0-4.0) Basophils (%) (Auto) 0.6 % (0.0-2.0) Neutrophils # (Auto) 11.9 TH/MM3 (1.8-7.7) Lymphocytes # (Auto) 1.1 TH/MM3 (1.0-4.8) Monocytes # (Auto) 0.9 TH/MM3 (0-0.9) Eosinophils # (Auto) 0.0 TH/MM3 (0-0.4) Basophils # (Auto) 0.1 TH/MM3 (0-0.2) CBC Comment DIFF FINAL AUTO DIFF Differential Comment FINAL DIFF MANUAL Blood Urea Nitrogen 23 MG/DL (7-18) 24 MG/DL (7-18) Creatinine 0.62 MG/DL (0.50-1.00) 0.64 MG/DL (0.50-1.00) Random Glucose 127 MG/DL (74-106) 143 MG/DL (74-106) Calcium Level 7.9 MG/DL (8.5-10.1) 7.7 MG/DL (8.5-10.1) Phosphorus Level 2.9 MG/DL (2.5-4.9) 2.0 MG/DL (2.5-4.9) Magnesium Level 1.9 MG/DL (1.5-2.5) 1.7 MG/DL (1.5-2.5) Sodium Level 149 MEQ/L (136-145) 149 MEQ/L (136-145) Potassium Level 3.5 MEQ/L (3.5-5.1) 4.0 MEQ/L (3.5-5.1) 3.7 MEQ/L (3.5-5.1) Chloride Level 110 MEQ/L (98-107) 112 MEQ/L (98-107) Carbon Dioxide Level 31.3 MEQ/L (21.0-32.0) 29.8 MEQ/L (21.0-32.0) Anion Gap 8 MEQ/L (5-15) 7 MEQ/L (5-15) Estimat Glomerular Filtration Rate 92 ML/MIN (>89) 89 ML/MIN (>89) Differential Total Cells Counted 100 Neutrophils % (Manual) 78 % (16-70) Band Neutrophils % 15 % (0-6) Lymphocytes % 3 % (9-44) Monocytes % 3 % (0-8) Neutrophils # (Manual) 16.2 TH/MM3 (1.8-7.7) Metamyelocytes 1 % (0-1) Nucleated Red Blood Cells 4 /100 WBC (0-0) Platelet Estimate NORMAL (NORMAL) Platelet Morphology Comment ENLARGED (NORMAL) Activated Partial Thromboplast Time 49.5 SEC (24.3-30.1) Result Diagram: 08/27/17 0400 08/27/17 0400 Microbiology Microbiology Date/Time Source Procedure Growth Status 08/26/17 08:35 Blood Peripheral Aerobic Blood Culture - Preliminary NO GROWTH IN 1 DAY Resulted 08/26/17 08:35 Blood Peripheral Anaerobic Blood Culture - Preliminary NO GROWTH IN 1 DAY Resulted 08/26/17 08:28 Blood Peripheral Aerobic Blood Culture - Preliminary NO GROWTH IN 1 DAY Resulted 08/26/17 08:28 Blood Peripheral Anaerobic Blood Culture - Preliminary NO GROWTH IN 1 DAY Resulted Imaging Last Impressions Chest X-Ray 08/27/17 0000 Signed Impressions: Service Date/Time: Sunday, August 27, 2017 03:57 - CONCLUSION: 1. Status post extubation with NG tube removal. 2. Persistent moderate bilateral pleural effusions with associated lower lobe airspace disease. Douglas Jean MD Abdomen/Pelvis CT 08/23/17 1426 Signed Impressions: Service Date/Time: Wednesday, August 23, 2017 22:50 - CONCLUSION: 1. Suspected mild diffuse colitis, nonspecific but presumably infectious or inflammatory. No obstruction or abscess. 2. Trace ascites about the same there is worsening anasarca and worsening pleural effusions and consolidation of both lung bases. 3. Tiny nonobstructing stone of the right kidney and a generally benign appearing cyst lower pole the left kidney. No evidence of obstructive uropathy or other etiology for acute renal failure. 4. Atherosclerotic aorta. No aneurysm. Adan Nunes MD Upper Extremity Ultrasound 08/23/17 0000 Signed Impressions: Service Date/Time: Wednesday, August 23, 2017 16:25 - CONCLUSION: Bilateral upper extremity DVT as described above. Samuel Peralta MD Lower Extremity Ultrasound 08/23/17 0000 Signed Impressions: Service Date/Time: Wednesday, August 23, 2017 15:50 - CONCLUSION: 1. There is incomplete compression of the left common femoral vein raising suspicion for nonocclusive thrombus. This vessel, however, still demonstrates normal Doppler blood flow and respiratory variability. 2. The remaining veins of the left lower extremity are patent and the entire right lower extremity is patent without thrombus. Adan Machuca MD Abdomen X-Ray 08/21/17 0600 Signed Impressions: Service Date/Time: July 03:35 - CONCLUSION: The bowel gas pattern remains fairly unremarkable. Jl Stanley MD Lumbar Puncture Fluoroscopy 08/15/17 0000 Signed Impressions: Service Date/Time: Tuesday, August 15, 2017 15:36 - CONCLUSION: 1. Uncomplicated fluoroscopically guided lumbar puncture. 2. Please note, requested opening pressures were not obtained due to technical difficulties. Shashi Moreno MD Brain MRI 08/15/17 0000 Signed Impressions: Service Date/Time: Tuesday, August 15, 2017 16:57 - CONCLUSION: 1. 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 2. Mild stenosis in the upper cervical spine as above. Esau Martell MD Abdomen Ultrasound 08/15/17 0000 Signed Impressions: Service Date/Time: Tuesday, August 15, 2017 10:40 - CONCLUSION: 1. No abnormality is identified to explain the clinical symptoms. There is no hydronephrosis. 2. The liver is normal in size and echotexture. Adan Machuca MD Head CT 08/14/172231 Signed Impressions: Service Date/Time: July 22:54 - CONCLUSION: Unremarkable study. K. Yovani Villagomez MD Procedures * 08/25/17 - extubated. * 08/15/17-lumbar puncture by IR * 08/15/17 - right IJ central line, intubated. . Assessment and Plan Disease Oriented Problem List: (1) Acute respiratory failure (2) Septic shock (3) Tachycardia (4) UTI (urinary tract infection) (5) Alcohol abuse (6) Atrial fibrillation Comment: On Cardizem drip Symptom Scale: (1) Pain 0-10 Scale: 0 (2) Dyspnea 0-10 Scale: 0 (3) Weakness 0-10 Scale: 0 Comment: continue PT/ OT Pertinent Non-Medical Issues Psychosocial: . Lives with Nicole flores. Has 3 daughters and 1 son. Spiritual: Druze david. Legal: According to her Living Will she names daughterSilvia as primary HCS and son Jl Olson as alternate HCS. Ethical issues impacting care: No known concerns at this time. . Important Contacts * Silvia "Nicole" Toby, daughter/ HCS: [phone] * Jl Olson, son/ alternate HCS: or [phone] * Jessica, daughter: [phone] * Chelsea, daughter: [phone] . Prognosis Ms. Olson is an 82 year old admitted with rhabdomyolysis, septic shock uncertain etiology, dehydration, renal failure. At this point we will need additional information to determine overall prognosis. Given her advanced age, she remain high risk for further setbacks or decline. . Code Status: Full Code Plan * Difficult to assess patient capacity today due to difficulty understanding her weak voice post extubation. Will attempt to clarify in the coming days. According to her Living Will she names Silvia flores as primary HCS and son Jl Olson as alternate HCS. * FULL CODE. * Goals remain aggressive at this time. * SYMPTOMS: Altered mental status: seems to be improving. Dyspnea: Medically extubated 08/25/17 am. Denies SOB on [place] oxygen. Pain: potential sources include intubation, chronic neck pain, infection, etc. Denies pain. Anxiety: Denies. Weakness: Continue PT/OT. No new medication recommendations at this time. * Palliative care will continue to throughout hospital course to assist with clarification of goals. . Attestation To help prompt me to consider important information that might be impacting today's encounter and assessment, information from prior notes written by myself or my colleagues may have been "brought forward" into today's note. My signature on this note, however, is an attestation that I personally performed the exam, history, and/or decision-making noted today, and, unless otherwise indicated, the interactions with patient, family, and staff as well as the review of records all occurred today. I also attest that the listed assessment and stated plan reflect my best clinical judgment today based on the combination of historical information, prior notes, and today's exam/ interactions. When time spent is documented, it refers only to time spent today by the signer, or if indicated, combined time spent today by collaborating physician/nurse practitioner. Vashti Riley Aug 27, 2017 12:19
[2017-08-27] MEDS: MICAFUNGIN INJ 100 MG in SODIUM CHLORIDE 0.9% INJ 100 ML IV SCH (12:46)
--- NOTE | 2017-08-27 13:13 | HHI.PR ---
cc: Rolo Guadalupe MD Subjective Subjective Notes on BiPAP now Still able to answer yes and no questions Objective Vitals/I&O Vital Signs Date Time Temp Pulse Resp B/P (MAP) Pulse Ox O2 Delivery O2 Flow Rate FiO2 08/27/17 12:00 97.4 69 45 92/51 (65) 08/27/17 11:01 95 40 08/27/17 08:32 Nasal Cannula 3.00 Labs Laboratory Tests Test 08/26/17 20:00 08/27/17 04:00 Potassium Level 4.0 3.7 White Blood Count 17.2 Red Blood Count 2.43 Hemoglobin 7.6 Hematocrit 22.6 Mean Corpuscular Volume 93.1 Mean Corpuscular Hemoglobin 31.2 Mean Corpuscular Hemoglobin Concent 33.5 Red Cell Distribution Width 13.7 Platelet Count 426 Mean Platelet Volume 9.1 CBC Comment AUTO DIFF Differential Total Cells Counted 100 Neutrophils % (Manual) 78 Band Neutrophils % 15 Lymphocytes % 3 Monocytes % 3 Neutrophils # (Manual) 16.2 Metamyelocytes 1 Nucleated Red Blood Cells 4 Differential Comment FINAL DIFF MANUAL Platelet Estimate NORMAL Platelet Morphology Comment ENLARGED Activated Partial Thromboplast Time 49.5 Blood Urea Nitrogen 24 Creatinine 0.64 Random Glucose 143 Calcium Level 7.7 Phosphorus Level 2.0 Magnesium Level 1.7 Sodium Level 149 Chloride Level 112 Carbon Dioxide Level 29.8 Anion Gap 7 Estimat Glomerular Filtration Rate 89 Date/Time Source Procedure Growth Status 08/26/17 08:35 Blood Peripheral Aerobic Blood Culture - Preliminary NO GROWTH IN 1 DAY Resulted 08/26/17 08:35 Blood Peripheral Anaerobic Blood Culture - Preliminary NO GROWTH IN 1 DAY Resulted 08/15/17 15:56 Cerebral Spinal Fluid Lumbar Puncture Gram Stain - Final Complete 08/15/17 15:56 Cerebral Spinal Fluid Lumbar Puncture CSF Culture - Final NO GROWTH IN 72 HOURS Complete 08/15/17 02:28 Stool Stool Stool Occult Blood (MARCIA) - Final HEMOCCULT NEGATIVE Complete 08/21/17 15:20 Sputum Endotracheal Gram Stain - Final Complete 08/21/17 15:20 Sputum Endotracheal Sputum Culture - Final NO GROWTH IN 48 HOURS. Complete 08/21/17 13:45 Urine Catheterized Urine Urine Culture - Final NO GROWTH IN 48 HOURS. Complete Cardiovascular: Regular Lungs: Rhonchi Abdomen: Non-distended, Non-tender Extremities: No edema A/P Assessment and Plan 82 year old female with ischemic colitis -Resp issues this AM--- on BIPAP -NPO due to respiratory issues -If re-intubated may need to talk with family about trach placement -Discussed with Yumiko Ramirez/First Amina MOLINA Aug 27, 2017 13:13
[2017-08-27] MEDS: DILTIAZEM 125 MG/NS 100 ML IV PRN ×2 (14:47)
[2017-08-27 16:01] LABS: ALT (GPT) 16 U/L (10-53); AST (GOT) 13 U/L (15-37); BICARBONATE 27.9 MEQ/L (21.0-32.0); BLOOD UREA NITROGEN 24 MG/DL (7-18); CALCIUM 7.6 MG/DL (8.5-10.1); CHLORIDE 111 MEQ/L (98-107); CREATININE 0.73 MG/DL (0.50-1.00); GLOMERULAR FILTRATION RATE 76 ML/MIN (>89); GLUCOSE,RANDOM 143 MG/DL (74-106); MAGNESIUM 2.1 MG/DL (1.5-2.5); SODIUM (NA) 147 MEQ/L (136-145)
[2017-08-27 16:03] LABS: ALKALINE PHOSPHATASE 47 U/L (45-117); TOTAL BILIRUBIN ADULT 0.6 MG/DL (0.2-1.0); TOTAL PROTEIN 5.9 GM/DL (6.4-8.2)
--- NOTE | 2017-08-27 17:24 | HHI.HCPN ---
Patient was seen in room 509 for discussion of goals. She had previously been on a BiPAP mask and unable to communicate well. She is currently on nasal cannula and able to converse. Her voice is very soft and hoarse. She was able to tell me that she was in the hospital and that she normally stayed with her daughter. She denies any pain and felt she was breathing okay. She says it is a relief to have the mask off. She says it hurts her face and makes it hard to breathe. I inquired if she remembered being on the ventilator and she rolled her eyes and said "yes, it was horrible". I asked her what was the hardest part for her and she answered "being tied to the bed , pain in her throat from the tube and not being able to move." I gently explored the possibility that she might need a ventilator again some day and asked her if she would be willing to accept that and she shook her head and answered "no, I would not want that. It was such a relief to have it come out". I did advise her that if her breathing was that bad that not putting the ventilator tube back in meant that she might and she answered "that is okay". I then explored goals for cardiac resuscitation and she stated that she would accept CPR and shock. I encouraged her to talk to her children about her wishes in case they had to make any decisions for her in the future so that they would know what she wanted. She nodded and said she would talk to her children. Leonor Kendrick Aug 27, 2017 5:24 pm
[2017-08-27] MEDS: HEPARIN-D5W 25,000 U/250 ML 250 ML IV PRN (18:11)
[2017-08-28] VITALS (19 sets, daily range): BP systolic 90–111; BP diastolic 55–85; PULSE 61–83; RESP 32–36; TEMP 97.2–98.5; O2SAT 81–96
[2017-08-28] MEDS: metroNIDAZOLE 500 MG INJ 100 ML IV SCH ×4 (02:18→20:31)
[2017-08-28] MEDS: CEFEPIME INJ 2,000 MG in SODIUM CHLORIDE 0.9% INJ 100 ML IV SCH ×2 (02:19→13:51)
[2017-08-28] MEDS: RESP: IPRATROPIUM 0.5 MG/2.5 ML NEB NEB SCH ×6 (03:54→23:00)
[2017-08-28] MEDS: POTASSIUM CHLORIDE 25 MEQ EFFERVESCENT TAB NG SCH ×3 (04:00→20:30)
[2017-08-28] MEDS: INSULIN NovoLIN REGULAR SUPPLEMENTAL SCALE SQ SCH ×6 (04:00→20:00)
[2017-08-28 04:24] LABS: AUTOMATED NEUTROPHIL # 13.3 TH/MM3 (1.8-7.7); BASOPHIL # 0.1 TH/MM3 (0-0.2); BASOPHIL % 0.4 % (0.0-2.0); EOSINOPHIL % 0.2 % (0.0-4.0); HEMATOCRIT 22.3 % (35.0-46.0); HEMOGLOBIN 7.4 GM/DL (11.6-15.3); LYMPHOCYTE # 2.4 TH/MM3 (1.0-4.8); MEAN CELL VOLUME 94.1 FL (80.0-100.0); MEAN CORPUSCULAR HEMOGLOBIN 31.2 PG (27.0-34.0); MEAN CORPUSCULAR HGB CONC 33.1 % (32.0-36.0); MEAN PLATELET VOLUME 9.3 FL (7.0-11.0); MONO % 6.5 % (0.0-8.0); MONOCYTE # 1.1 TH/MM3 (0-0.9); NEUT % 78.9 % (16.0-70.0); PLATELET COUNT 467 TH/MM3 (150-450); RED BLOOD COUNT 2.37 MIL/MM3 (4.00-5.30); WHITE BLOOD COUNT 16.8 TH/MM3 (4.0-11.0)
[2017-08-28 04:36] LABS: ALT (GPT) 13 U/L (10-53); AST (GOT) 14 U/L (15-37); BICARBONATE 27.4 MEQ/L (21.0-32.0); CALCIUM 7.6 MG/DL (8.5-10.1); CHLORIDE 113 MEQ/L (98-107); CREATININE 0.78 MG/DL (0.50-1.00); GLOMERULAR FILTRATION RATE 71 ML/MIN (>89); GLUCOSE,RANDOM 117 MG/DL (74-106); PHOSPHORUS 2.9 MG/DL (2.5-4.9); SODIUM (NA) 150 MEQ/L (136-145)
--- NOTE | 2017-08-28 04:36 | RADRPT ---
EXAM DATE/TIME: 08/28/2017 03:00 [facility] COMPARISON: CHEST SINGLE AP, August 27, 2017, 3:57. INDICATIONS : Shortness of breath, possible pulmonary disease. MEDICAL HISTORY : Hypertension. Diverticulitis. Arthritis. Renal failure SURGICAL HISTORY : Colon resection. Appendectomy. Hysterectomy. ENCOUNTER: Subsequent ACUITY: 2 weeks PAIN SCORE: 0/10 LOCATION: Bilateral chest FINDINGS: Stable left IJ central line. Persistent moderate bilateral pleural effusions and associated airspace disease in the lower lobes. Cardiomediastinal contours are stable. Main exam is unchanged. CONCLUSION: 1. Stable moderate bilateral pleural effusions and associated lower lobe airspace disease. Douglas Jean MD on August 28, 2017 at 4:35 Board Certified Radiologist. This report was verified electronically.
[2017-08-28 04:43] LABS: ALKALINE PHOSPHATASE 45 U/L (45-117); BLOOD UREA NITROGEN 28 MG/DL (7-18); TOTAL BILIRUBIN ADULT 0.6 MG/DL (0.2-1.0); TOTAL PROTEIN 5.6 GM/DL (6.4-8.2)
[2017-08-28] MEDS: ARTIFICIAL TEARS OPTH SOLN 15 ML BTL EACH EYE SCH ×3 (05:32→20:48)
[2017-08-28 07:15] LABS: CORRECTED NUCLEATED RBC 9 /100 WBC (0-0); LYMPHOCYTES 4 % (9-44); MONOCYTES 3 % (0-8); MYELOCYTES 2 % (0-0); NEUTROPHIL # MANUAL DIFF 15.6 TH/MM3 (1.8-7.7); NUCLEATED RED BLOOD CELL 9 (0-0); POLYS (SEG NEUTROPHILS) 91 % (16-70)
[2017-08-28] MEDS: SODIUM CHLORIDE 0.9% FLUSH 10 ML FLUSH IV FLUSH SCH ×3 (08:40→20:31)
[2017-08-28] MEDS: FUROSEMIDE 40 MG/4 ML VIAL IV PUSH SCH ×2 (08:40→17:06)
[2017-08-28] MEDS: FERROUS SULFATE 300 MG /5ML UDC PO SCH ×2 (08:40→20:30)
[2017-08-28] MEDS: DIGOXIN SOLUTION 0.125 MG/2.5 ML CUP PO SCH (08:40)
[2017-08-28] MEDS: ASPIRIN 81 MG CHEW TAB OG-TUBE SCH (08:41)
[2017-08-28] MEDS: MULTIVITAMIN TAB PO SCH (08:41)
[2017-08-28] MEDS: FOLIC ACID 1 MG TAB PO SCH (08:41)
[2017-08-28] MEDS: METOPROLOL TARTRATE 25 MG TAB PO SCH ×2 (08:41→20:31)
[2017-08-28] MEDS: THIAMINE HCL 100 MG TAB PO SCH (08:41)
[2017-08-28] MEDS: FAMOTIDINE 40 MG/5 ML LIQ 50 ML BTL NG SCH ×2 (08:41→20:33)
--- NOTE | 2017-08-28 10:00 | HHI.CCPN ---
Subjective Remarks/Hospital Course Patient is an 82-year-old female with past medical history of irritable bowel syndrome, hypertension, arthritis, diverticulitis who presented to the [facility] ED after she was found lying on her bed with urine and feces all around her bed. In addition, the patient was altered and obtunded. Most of the history was obtained from reviewing the medical records. Her laboratory data showed acute renal failure with BUN of 52, creatinine 3.39 and lactic acidosis with a lactic acid level of 6.3. In addition, the patient was in rhabdomyolysis with elevated CK at 3855. She was admitted under the hospitalist service; however, a [facility] was called due to worsening mental status, hypertension and hypoxemia. She was [place] [facility] [place] critical care medicine was consulted for critical care management. When seen, the patient was lethargic, not following any commands, hypotensive. She was subsequently intubated by myself and a right internal jugular central line was placed for hemodynamic monitoring. ABG post intubation showed a pH of 7.31, co2 of 30, pA02 of 117, bicarbonate 15 and saturation of 96% on PRVC rate of 14, tidal volume 350 with IT:1, PEEP 5 and FIO2 of 100%. She was given two liter boluses of normal saline and placed on a bicarbonate drip. Her lactic acid level is trending down and is currently 3.4 from 6.3 on arrival. In addition, her renal function is improving with IV hydration. Her creatinine level is 2.29 from 3.39. Due to hypotension, Levophed was started. A CT scan of the brain in the emergency department was unremarkable. Her initial chest x-ray showed minimal basilar atelectasis, no effusions or pneumothoraces. According to the patient's family, the patient has been intermittently binge drinking. In addition, they report her having diarrhea for a few days. She had a low-grade fever with a temperature of 100.2 last night. 08/16 Patient is sedated with Fentanyl drip intubated and on Levophed 5 mics. On Bicarb drip. MRI brain yesterday showed small lacunar infarcts in left cerebellar hemisphere and right parietal lobe. Lp showed clear CSF, 17 wbc. Afebrile.Renal function worse today with Cr: 2.64 from 2.29 08/17 Patient remains sedated and intubated. On Bicarb drip. Off Levophed renal function slightly worse today with Cr: 2.82 from 2.64 and UOP: 550 ml in 24 hrs 08/18 Patient bit through ETT overnight s/p new ETT placement using tube exchanger. Sedated with Diprivan and Fentanyl. Afebrile. Renal function is improving with Cr: 1.97 from 2.82. On Bicarb drip. Tube feeds held for possible colonoscopy today. 08/19: Remains sedated, orally intubated on mechanical ventilation. Colonoscopy done yesterday revealed ischemic colitis. Has been evaluated by general surgery. Patient went into A. fib with RVR last night and was started on a Cardizem drip. On Levophed for hypotension 08/20: Remains sedated, orally intubated on mechanical ventilation. Started on TPN on 08/19. Cardizem drip turned off this morning. Received 1 dose of digoxin yesterday. 08/21: Remains sedated, orally intubated on mechanical ventilation. On TPN. Ordered Precedex as well as digoxin daily. Starting trophic feeds today. 08/22 Patient remains intubated on Precedex and Fentanyl infusion for sedation. afebrile. 08/23 WBC up to 17.7. Temp max 102.2. Blood culture sent today peripherally ( labelled as line draw initially but was not drawn from a line, lab notified to re-label). Tolerating trophic feeds. Awake and on CPAP 10/5 with RSBI 50s, became labored and desat with 5/5. Denies abdominal pain. Subjective: 08/24: Tmax 102.7 overnight. Currently 100.6. Noted yeast growing from blood culture 08/21. Remains in atrial fibrillation. Potassium currently been replaced. Currently only has once peripheral IV access. Will need central line placed later this afternoon. 08/25 Patient is awake and alert on CPAP trials. T: 101.1 last night. On Heparin and Bumex drips 08/26 Patient was extubated yesterday on 3L oxygen. She went into Afib with RVR last night given Labetalol. Afebrile. 08/27: Patient is slightly tachypneic, but maintaining O2 sat. chest x-ray shows at least moderate sized pleural effusions. Start Lasix 40 mg IV every 12 [address] Doe catheter for accurate intake output and also appears that patient has urinary retention. Remains in atrial fibrillation with RVR, on Cardizem at 15 mg per hour. 08/28: On BiPAP overnight. Currently on 4 L nasal cannula. Fluctuating neurologic status consistent with delirium. Remains on Cardizem drip at 5 mg per hour for A. fib with RVR. Diuresing well with Lasix. Objective Vital Signs Date Time Temp Pulse Resp B/P (MAP) Pulse Ox O2 Delivery O2 Flow Rate FiO2 08/28/17 07:54 96 40 08/28/17 06:00 77 08/28/17 04:00 97.9 36 105/60 (75) 08/27/17 19:25 Nasal Cannula 4.00 Intake and Output 08/28/17 08/28/17 08/29/17 08:00 16:00 00:00 Intake Total 270 ml Output Total 450 ml Balance -180 ml Result Diagram: 08/28/17 0400 08/28/17 0400 Imaging Last Impressions Chest X-Ray 08/25/17 0600 Signed Impressions: Service Date/Time: Friday, August 25, 2017 03:26 - CONCLUSION: 1. Stable tubes and lines, as above. 2. Stable small bilateral pleural effusions and associated bibasilar airspace disease. Douglas Jaen MD Abdomen/Pelvis CT 08/23/17 1426 Signed Impressions: Service Date/Time: Wednesday, August 23, 2017 22:50 - CONCLUSION: 1. Suspected mild diffuse colitis, nonspecific but presumably infectious or inflammatory. No obstruction or abscess. 2. Trace ascites about the same there is worsening anasarca and worsening pleural effusions and consolidation of both lung bases. 3. Tiny nonobstructing stone of the right kidney and a generally benign appearing cyst lower pole the left kidney. No evidence of obstructive uropathy or other etiology for acute renal failure. 4. Atherosclerotic aorta. No aneurysm. Adan Nunes MD Upper Extremity Ultrasound 08/23/17 0000 Signed Impressions: Service Date/Time: Wednesday, August 23, 2017 16:25 - CONCLUSION: Bilateral upper extremity DVT as described above. Samuel Peralta MD Lower Extremity Ultrasound 08/23/17 0000 Signed Impressions: Service Date/Time: Wednesday, August 23, 2017 15:50 - CONCLUSION: 1. There is incomplete compression of the left common femoral vein raising suspicion for nonocclusive thrombus. This vessel, however, still demonstrates normal Doppler blood flow and respiratory variability. 2. The remaining veins of the left lower extremity are patent and the entire right lower extremity is patent without thrombus. Adan Machuca MD Abdomen X-Ray 08/21/17 0600 Signed Impressions: Service Date/Time: July 03:35 - CONCLUSION: The bowel gas pattern remains fairly unremarkable. Jl Stanley MD Lumbar Puncture Fluoroscopy 08/15/17 0000 Signed Impressions: Service Date/Time: Tuesday, August 15, 2017 15:36 - CONCLUSION: 1. Uncomplicated fluoroscopically guided lumbar puncture. 2. Please note, requested opening pressures were not obtained due to technical difficulties. Shashi Moreno MD Brain MRI 08/15/17 0000 Signed Impressions: Service Date/Time: Tuesday, August 15, 2017 16:57 - CONCLUSION: 1. 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 2. Mild stenosis in the upper cervical spine as above. Esau Martell MD Abdomen Ultrasound 08/15/17 0000 Signed Impressions: Service Date/Time: Tuesday, August 15, 2017 10:40 - CONCLUSION: 1. No abnormality is identified to explain the clinical symptoms. There is no hydronephrosis. 2. The liver is normal in size and echotexture. Adan Machuca MD Head CT 08/14/172231 Signed Impressions: Service Date/Time: July 22:54 - CONCLUSION: Unremarkable study. KStepan Villagomez MD Objective Remarks GENERAL: 82-year-old female currently lying in bed in bed, mildly tachypneic SKIN: Warm and dry. Generalized Anasarca HEAD: Normocephalic. EYES: Pupils equal and reactive bilaterally about 3 mm. No scleral icterus. No injection or drainage. NECK: Supple, trachea midline. No JVD or lymphadenopathy. Orally intubated. Right IJ site without erythema CARDIOVASCULAR: Tachycardic, IRR. S1, S2 no S4. No murmurs appreciated RESPIRATORY: Diminished breath sounds bilateral bases. No wheezing appreciated. GASTROINTESTINAL: Abdomen soft, non-tender, minimally distended. Bowel sounds hypoactive but present. No guarding or rigidity MUSCULOSKELETAL: No significant peripheral edema. NEURO: Awake and alert. 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 Monitor neuro status and avoid sedatives. Oxycodone 5 mg every 6 hours PRN UDS is negative 08/15: CT brain negative for acute intracranial process MRI brain: Small lacunar infarcts in left cerebellar hemisphere and right parietal lobe EEG: Severe encephalopathy Continue thiamine, multivitamin and folic acid daily. Repeat EEG 08/21.- generalized slowing, no epileptiform features Neuro is following- Dr. Danielle LP showed clear CSF, 17 WBC, TP:45.2 Previously on chlordiazepoxide 25 mg 3 times a day Pulm: Acute respiratory failure Bilateral pleural effusions Continue with oxygen keep sat >92% Bronchodilators( d/c Albuterol due to tachycardia and place on Atrovent nebs) Incentive spirometry Q1 he while awake. Starting IV Lasix as below CV: Atrial fibrillation, with RVR Systolic heart failure unknown if acute or chronic Fluid overload Monitor HR and BP keep MAP>65mmHg. Lopressor 50mg Q12, On Digoxin 0.125 mg daily. Digoxin level 0.8 08/25 Continue Cardizem infusion Troponin is trended down. Echo showed EF 45-50% Continue aspirin 81 mg by mouth daily/home medication Start IV Lasix 40 mg every 12, continue potassium replacement Renal/FEN/: Acute kidney injury, resolved Lactic acidemia, resolved Rhabdomyolysis resolved Hypernatremia Hypokalemia Hypophosphatemia Right-sided nephrolithiasis/nonobstructing Left renal cyst Monitor renal function, intake and output and avoid nephrotoxins. Renal has followed-Dr. Figueroa, US abdomen: No hydronephrosis CT Abd/pelvis revealed nonobstructing right-sided nephrolithiasis and left renal cyst. Being diuresed with Lasix to mobilize fluid GI: Ischemic colitis Severe acute on Chronic protein energy malnutrition AST elevation secondary to alcohol use Internal and external hemorrhoids On PO diet per speech advance as ligia. Discussed with surgery On famotidine 20 mg twice a day for GI prophylaxis. Monitor LFT's( resolved) US liver: No abnormalities identified GI is following- colonoscopy showed diffuse colitis in the sigmoid colon and descending colon; Necrotic, dusky appearing mucosa. Consistent with severe ischemic colitis. General surgery, Dr. Guadalupe -plan to treat conservatively unless patient worsens clinically. Repeat CT abdomen and pelvis 08/23 mild diffuse colitis ID: Septic shock resolved UTI Ischemic colitis Fungemia Abx per ID (Cefepime, metronidazole, micafungin) Dr. Davis. Seen by Opth no evidence of endophthalmitis Pertinent cultures 08/23 - blood culture by line (actually peripheral) - coag neg staph 08/21 - blood culture - no growth 08/21 - sputum - no growth 08/21 - - no growth 08/21 - blood culture - Yeast Felipa parapsilosis 08/15 - CSF - negative 08/15 - sputum - no growth 08/14 - blood cultures 2 and UA - no growth C-diff PCR is negative, stool studies negative s/p LP showed clear CSF, 17 WBC, TP:45.2, HSV DNA PCR neg Endo: Hyperglycemia of critical illness/steroid SSI with Novolin R medium with Accu-Chek every 4 hours for glycemic control. TSH: 1.15. Heme: Leukocytosis Normocytic anemia B/L UE DVT Possible left common femoral vein DVT Left cephalic/basilic to professional and right superficial cephalic thrombus Monitor CBC, coags- on Heparin drip Iron sulfate 300 mg by tube twice a day GI prophylaxis with famotidine and DVT prophylaxis with SCDs, Heparin drip Lines: LIJ central line placed 08/24 Right IJ Central line removed 08/22. , Right radial Art line placed 08/15, has been removed 08/18 Discuss with daughter at bedside and all questions answered Level III follow-up Mikal Corea MD Aug 28, 2017 09:59
[2017-08-28] MEDS: FLUCONAZOLE 400 MG PREMIX BAG 200 ML IV SCH ×2 (10:03→11:54)
[2017-08-28] MEDS: MICAFUNGIN INJ 100 MG in SODIUM CHLORIDE 0.9% INJ 100 ML IV SCH (11:55)
[2017-08-28] MEDS ORDERED: FUROSEMIDE 40 MG/4 ML VIAL IV PUSH ONE (14:00)
[2017-08-28] MEDS: DILTIAZEM 125 MG/NS 100 ML IV PRN ×4 (15:34→20:36)
--- NOTE | 2017-08-28 16:25 | HHI.PR ---
cc: Rolo Guadalupe MD Subjective Subjective Notes Examined about 1100 Very labored breathing Daughter at bedside Objective Vitals/I&O Vital Signs Date Time Temp Pulse Resp B/P (MAP) Pulse Ox O2 Delivery O2 Flow Rate FiO2 08/28/17 15:34 72 104/64 08/28/17 11:31 93 70 08/28/17 04:00 97.9 36 08/27/17 19:25 Nasal Cannula 4.00 Labs Laboratory Tests Test 08/28/17 04:00 White Blood Count 16.8 Red Blood Count 2.37 Hemoglobin 7.4 Hematocrit 22.3 Mean Corpuscular Volume 94.1 Mean Corpuscular Hemoglobin 31.2 Mean Corpuscular Hemoglobin Concent 33.1 Red Cell Distribution Width 14.0 Platelet Count 467 Mean Platelet Volume 9.3 Neutrophils (%) (Auto) 78.9 Lymphocytes (%) (Auto) 14.0 Monocytes (%) (Auto) 6.5 Eosinophils (%) (Auto) 0.2 Basophils (%) (Auto) 0.4 Neutrophils # (Auto) 13.3 Lymphocytes # (Auto) 2.4 Monocytes # (Auto) 1.1 Eosinophils # (Auto) 0.0 Basophils # (Auto) 0.1 CBC Comment AUTO DIFF Differential Total Cells Counted 100 Neutrophils % (Manual) 91 Lymphocytes % 4 Monocytes % 3 Neutrophils # (Manual) 15.6 Myelocytes 2 Nucleated Red Blood Cells 9 Differential Comment FINAL DIFF MANUAL Platelet Estimate HIGH Platelet Morphology Comment NORMAL Activated Partial Thromboplast Time 55.1 Blood Urea Nitrogen 28 Creatinine 0.78 Random Glucose 117 Total Protein 5.6 Albumin 2.0 Calcium Level 7.6 Phosphorus Level 2.9 Alkaline Phosphatase 45 Aspartate Amino Transf (AST/SGOT) 14 Alanine Aminotransferase (ALT/SGPT) 13 Total Bilirubin 0.6 Sodium Level 150 Potassium Level 3.7 Chloride Level 113 Carbon Dioxide Level 27.4 Anion Gap 10 Estimat Glomerular Filtration Rate 71 Date/Time Source Procedure Growth Status 08/26/17 08:35 Blood Peripheral Aerobic Blood Culture - Preliminary NO GROWTH IN 2 DAYS Resulted 08/26/17 08:35 Blood Peripheral Anaerobic Blood Culture - Preliminary NO GROWTH IN 2 DAYS Resulted 08/15/17 15:56 Cerebral Spinal Fluid Lumbar Puncture Gram Stain - Final Complete 08/15/17 15:56 Cerebral Spinal Fluid Lumbar Puncture CSF Culture - Final NO GROWTH IN 72 HOURS Complete 08/15/17 02:28 Stool Stool Stool Occult Blood (MARCIA) - Final HEMOCCULT NEGATIVE Complete 08/21/17 15:20 Sputum Endotracheal Gram Stain - Final Complete 08/21/17 15:20 Sputum Endotracheal Sputum Culture - Final NO GROWTH IN 48 HOURS. Complete 08/21/17 13:45 Urine Catheterized Urine Urine Culture - Final NO GROWTH IN 48 HOURS. Complete Cardiovascular: Regular Lungs: Other (tight breath sounds ) Abdomen: Non-distended, Non-tender Extremities: Other (pitting edema ) Narrative Exam very edematous fingers; cyanotic lips slightly cyanotic A/P Assessment and Plan 82 year old female with ischemic colitis -Resp issues this AM--- on NC---- notified Dr. Corea and respiratory distress-- --going back on BiPAP -NPO due to respiratory issues -If re-intubated may need to talk with family about trach placement -Discussed with Yumiko Ely/[employer]ane [employer]iler NURSE AIDE Aug 28, 2017 16:25
--- NOTE | 2017-08-28 17:58 | HHI.HCPN ---
Reason for visit a. To assist with evaluation and management of symptoms including: dyspnea, weakness. b. To assist medical decision maker(s) with: better understanding of current medical conditions; weighing benefits/burdens of medical treatment options; making medical treatment decisions. . Subjective/Interval History Patient seen and examined in ICU. No family at bedside. Discussed with nursing staff. Afebrile. Patient is tachypneic (RR 30), on BiPAP. Heart rate 70's. Oxygen saturations 90-96. WBC 16.8, hemoglobin 7.4, platelet 467. Albumin 2.0. 08/26/17 blood culture no growth 2 days. Chest xray stable moderate bilateral pleural effusions and associated lower lobe airspace disease. . Family/friend interactions Lengthy conversation with patient's daughterNicole outside the room to provide medical update. Additionally spent time with patient and her daughter Nicole at bedside to review current medical conditions, prognosis (anticipate at this time patient will be able to survive this hospitalization, unless she has additional setbacks or problems that develop), patient and family request that should her condition change significantly that family be notified, lengthy conversation regarding patient goals of care. After reviewing the above information patient has decided that should she need reintubation that she would want to be reintubated, desires FULL CODE at this time. She does indicates that she would not want life prolonging measures if she had a terminal condition, end-stage condition or was in a persistent vegetative state. The patient's daughterNicole is her designated healthcare surrogate she understands her mother's wishes and indicates that should her condition worsen significantly should she have a persistent vegetative state, end-stage or terminal condition that she understands patient would want comfort focused care at that time. . Advance Directives Living Will: Never completed Health Care Surrogate: Never completed Durable Power of Scheduling Specialist: Never completed Advance Directive Specifics Health Care Surrogate(s): Living Will copy obtained. According to her Living Will she names daughterSilvia as primary HCS and son Jl Olson as alternate HCS. . Documented care wishes: Standard Living Will on chart. . Significant change in goals: FULL CODE - per patient wishes, supported by her family. Desires continued aggressive care. . Objective Vital Signs Date Time Temp Pulse Resp B/P (MAP) Pulse Ox O2 Delivery O2 Flow Rate FiO2 08/28/17 15:34 72 104/64 08/28/17 11:31 93 70 08/28/17 07:54 96 40 08/28/17 06:00 77 08/28/17 04:53 92 40 08/28/17 04:00 97.9 71 36 105/60 (75) 94 08/28/17 04:00 71 08/28/17 04:00 71 105/60 08/28/17 04:00 97.9 08/28/17 04:00 65 08/28/17 02:18 65 102/67 08/28/17 02:00 65 08/28/17 01:45 92 40 08/28/17 00:00 98.5 61 35 100/62 (75) 89 08/28/17 00:00 61 08/27/17 23:12 95 40 08/27/17 22:00 84 08/27/17 20:18 95 40 08/27/17 20:00 96 08/27/17 20:00 97.6 96 41 121/58 (79) 08/27/17 19:25 95 Nasal Cannula 4.00 08/27/17 18:00 82 Intake & Output 08/28/17 08/28/17 06:59 18:59 Intake Total 370 ml Output Total 450 ml Balance -80 ml Intake Oral 70 ml IV Total 300 ml Output Urine Total 450 ml # Bowel Movements 1 Physical Exam CONSTITUTIONAL/GENERAL: This is a well nourished patient, in no apparent distress. TUBES/LINES/DRAINS: BiPAP, Central line, PIV, Doe, SCDs. SKIN: No jaundice, rashes, or lesions. Ecchymoses on upper extremities. Skin temperature appropriate. Not diaphoretic. CARDIOVASCULAR: Regular rate and rhythm, + murmur. RESPIRATORY/CHEST: Tachypneic on BiPAP. Labored respirations. GASTROINTESTINAL: Abdomen soft, non distended. + bowel sounds. GENITOURINARY: Without palpable bladder distension. Doe catheter in place. MUSCULOSKELETAL: Extremities with edema. Extremities cool to touch. no mottling or clubbing. NEUROLOGICAL: Awake and alert, soft voice, follows commands, answers questions appropriately. PSYCHIATRIC: denies anxiety. . Diagnostic Tests Laboratory Laboratory Tests Test 08/25/17 18:19 08/26/17 01:35 08/26/17 04:20 08/26/17 20:00 Activated Partial Thromboplast Time 54.8 SEC (24.3-30.1) 51.1 SEC (24.3-30.1) Potassium Level 2.9 MEQ/L (3.5-5.1) 3.5 MEQ/L (3.5-5.1) 4.0 MEQ/L (3.5-5.1) Phosphorus Level 3.0 MG/DL (2.5-4.9) 2.9 MG/DL (2.5-4.9) White Blood Count 14.0 TH/MM3 (4.0-11.0) Red Blood Count 2.49 MIL/MM3 (4.00-5.30) Hemoglobin 7.7 GM/DL (11.6-15.3) Hematocrit 23.2 % (35.0-46.0) Mean Corpuscular Volume 93.5 FL (80.0-100.0) Mean Corpuscular Hemoglobin 30.9 PG (27.0-34.0) Mean Corpuscular Hemoglobin Concent 33.1 % (32.0-36.0) Red Cell Distribution Width 13.8 % (11.6-17.2) Platelet Count 360 TH/MM3 (150-450) Mean Platelet Volume 9.1 FL (7.0-11.0) Neutrophils (%) (Auto) 84.8 % (16.0-70.0) Lymphocytes (%) (Auto) 7.8 % (9.0-44.0) Monocytes (%) (Auto) 6.5 % (0.0-8.0) Eosinophils (%) (Auto) 0.3 % (0.0-4.0) Basophils (%) (Auto) 0.6 % (0.0-2.0) Neutrophils # (Auto) 11.9 TH/MM3 (1.8-7.7) Lymphocytes # (Auto) 1.1 TH/MM3 (1.0-4.8) Monocytes # (Auto) 0.9 TH/MM3 (0-0.9) Eosinophils # (Auto) 0.0 TH/MM3 (0-0.4) Basophils # (Auto) 0.1 TH/MM3 (0-0.2) CBC Comment DIFF FINAL Differential Comment Blood Urea Nitrogen 23 MG/DL (7-18) Creatinine 0.62 MG/DL (0.50-1.00) Random Glucose 127 MG/DL (74-106) Calcium Level 7.9 MG/DL (8.5-10.1) Magnesium Level 1.9 MG/DL (1.5-2.5) Sodium Level 149 MEQ/L (136-145) Chloride Level 110 MEQ/L (98-107) Carbon Dioxide Level 31.3 MEQ/L (21.0-32.0) Anion Gap 8 MEQ/L (5-15) Estimat Glomerular Filtration Rate 92 ML/MIN (>89) Test 08/27/17 04:00 08/27/17 15:19 08/28/17 04:00 White Blood Count 17.2 TH/MM3 (4.0-11.0) 16.8 TH/MM3 (4.0-11.0) Red Blood Count 2.43 MIL/MM3 (4.00-5.30) 2.37 MIL/MM3 (4.00-5.30) Hemoglobin 7.6 GM/DL (11.6-15.3) 7.4 GM/DL (11.6-15.3) Hematocrit 22.6 % (35.0-46.0) 22.3 % (35.0-46.0) Mean Corpuscular Volume 93.1 FL (80.0-100.0) 94.1 FL (80.0-100.0) Mean Corpuscular Hemoglobin 31.2 PG (27.0-34.0) 31.2 PG (27.0-34.0) Mean Corpuscular Hemoglobin Concent 33.5 % (32.0-36.0) 33.1 % (32.0-36.0) Red Cell Distribution Width 13.7 % (11.6-17.2) 14.0 % (11.6-17.2) Platelet Count 426 TH/MM3 (150-450) 467 TH/MM3 (150-450) Mean Platelet Volume 9.1 FL (7.0-11.0) 9.3 FL (7.0-11.0) CBC Comment AUTO DIFF AUTO DIFF Differential Total Cells Counted 100 100 Neutrophils % (Manual) 78 % (16-70) 91 % (16-70) Band Neutrophils % 15 % (0-6) Lymphocytes % 3 % (9-44) 4 % (9-44) Monocytes % 3 % (0-8) 3 % (0-8) Neutrophils # (Manual) 16.2 TH/MM3 (1.8-7.7) 15.6 TH/MM3 (1.8-7.7) Metamyelocytes 1 % (0-1) Nucleated Red Blood Cells 4 /100 WBC (0-0) 9 /100 WBC (0-0) Differential Comment FINAL DIFF MANUAL FINAL DIFF MANUAL Platelet Estimate NORMAL (NORMAL) HIGH (NORMAL) Platelet Morphology Comment ENLARGED (NORMAL) NORMAL (NORMAL) Activated Partial Thromboplast Time 49.5 SEC (24.3-30.1) 55.1 SEC (24.3-30.1) Blood Urea Nitrogen 24 MG/DL (7-18) 24 MG/DL (7-18) 28 MG/DL (7-18) Creatinine 0.64 MG/DL (0.50-1.00) 0.73 MG/DL (0.50-1.00) 0.78 MG/DL (0.50-1.00) Random Glucose 143 MG/DL (74-106) 143 MG/DL (74-106) 117 MG/DL (74-106) Calcium Level 7.7 MG/DL (8.5-10.1) 7.6 MG/DL (8.5-10.1) 7.6 MG/DL (8.5-10.1) Phosphorus Level 2.0 MG/DL (2.5-4.9) 2.9 MG/DL (2.5-4.9) Magnesium Level 1.7 MG/DL (1.5-2.5) 2.1 MG/DL (1.5-2.5) Sodium Level 149 MEQ/L (136-145) 147 MEQ/L (136-145) 150 MEQ/L (136-145) Potassium Level 3.7 MEQ/L (3.5-5.1) 3.8 MEQ/L (3.5-5.1) 3.7 MEQ/L (3.5-5.1) Chloride Level 112 MEQ/L (98-107) 111 MEQ/L (98-107) 113 MEQ/L (98-107) Carbon Dioxide Level 29.8 MEQ/L (21.0-32.0) 27.9 MEQ/L (21.0-32.0) 27.4 MEQ/L (21.0-32.0) Anion Gap 7 MEQ/L (5-15) 8 MEQ/L (5-15) 10 MEQ/L (5-15) Estimat Glomerular Filtration Rate 89 ML/MIN (>89) 76 ML/MIN (>89) 71 ML/MIN (>89) Total Protein 5.9 GM/DL (6.4-8.2) 5.6 GM/DL (6.4-8.2) Albumin 2.0 GM/DL (3.4-5.0) 2.0 GM/DL (3.4-5.0) Alkaline Phosphatase 47 U/L (45-117) 45 U/L (45-117) Aspartate Amino Transf (AST/SGOT) 13 U/L (15-37) 14 U/L (15-37) Alanine Aminotransferase (ALT/SGPT) 16 U/L (10-53) 13 U/L (10-53) Total Bilirubin 0.6 MG/DL (0.2-1.0) 0.6 MG/DL (0.2-1.0) Neutrophils (%) (Auto) 78.9 % (16.0-70.0) Lymphocytes (%) (Auto) 14.0 % (9.0-44.0) Monocytes (%) (Auto) 6.5 % (0.0-8.0) Eosinophils (%) (Auto) 0.2 % (0.0-4.0) Basophils (%) (Auto) 0.4 % (0.0-2.0) Neutrophils # (Auto) 13.3 TH/MM3 (1.8-7.7) Lymphocytes # (Auto) 2.4 TH/MM3 (1.0-4.8) Monocytes # (Auto) 1.1 TH/MM3 (0-0.9) Eosinophils # (Auto) 0.0 TH/MM3 (0-0.4) Basophils # (Auto) 0.1 TH/MM3 (0-0.2) Myelocytes 2 % (0-0) Result Diagram: 08/28/17 0400 08/28/17 0400 Microbiology Microbiology Date/Time Source Procedure Growth Status 08/26/17 08:35 Blood Peripheral Aerobic Blood Culture - Preliminary NO GROWTH IN 2 DAYS Resulted 08/26/17 08:35 Blood Peripheral Anaerobic Blood Culture - Preliminary NO GROWTH IN 2 DAYS Resulted 08/26/17 08:28 Blood Peripheral Aerobic Blood Culture - Preliminary NO GROWTH IN 2 DAYS Resulted 08/26/17 08:28 Blood Peripheral Anaerobic Blood Culture - Preliminary NO GROWTH IN 2 DAYS Resulted Imaging Last Impressions Chest X-Ray 08/28/17 0600 Signed Impressions: Service Date/Time: August 03:00 - CONCLUSION: 1. Stable moderate bilateral pleural effusions and associated lower lobe airspace disease. Douglas Jean MD Abdomen/Pelvis CT 08/23/17 1426 Signed Impressions: Service Date/Time: Wednesday, August 23, 2017 22:50 - CONCLUSION: 1. Suspected mild diffuse colitis, nonspecific but presumably infectious or inflammatory. No obstruction or abscess. 2. Trace ascites about the same there is worsening anasarca and worsening pleural effusions and consolidation of both lung bases. 3. Tiny nonobstructing stone of the right kidney and a generally benign appearing cyst lower pole the left kidney. No evidence of obstructive uropathy or other etiology for acute renal failure. 4. Atherosclerotic aorta. No aneurysm. Adan Nunes MD Upper Extremity Ultrasound 08/23/17 0000 Signed Impressions: Service Date/Time: Wednesday, August 23, 2017 16:25 - CONCLUSION: Bilateral upper extremity DVT as described above. Samuel Peralta MD Lower Extremity Ultrasound 08/23/17 0000 Signed Impressions: Service Date/Time: Wednesday, August 23, 2017 15:50 - CONCLUSION: 1. There is incomplete compression of the left common femoral vein raising suspicion for nonocclusive thrombus. This vessel, however, still demonstrates normal Doppler blood flow and respiratory variability. 2. The remaining veins of the left lower extremity are patent and the entire right lower extremity is patent without thrombus. Adan Machuca MD Abdomen X-Ray 08/21/17 0600 Signed Impressions: Service Date/Time: July 03:35 - CONCLUSION: The bowel gas pattern remains fairly unremarkable. Jl Stanley MD Lumbar Puncture Fluoroscopy 08/15/17 0000 Signed Impressions: Service Date/Time: Tuesday, August 15, 2017 15:36 - CONCLUSION: 1. Uncomplicated fluoroscopically guided lumbar puncture. 2. Please note, requested opening pressures were not obtained due to technical difficulties. Shashi Moreno MD Brain MRI 08/15/17 0000 Signed Impressions: Service Date/Time: Tuesday, August 15, 2017 16:57 - CONCLUSION: 1. 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 2. Mild stenosis in the upper cervical spine as above. Esau Martell MD Abdomen Ultrasound 08/15/17 0000 Signed Impressions: Service Date/Time: Tuesday, August 15, 2017 10:40 - CONCLUSION: 1. No abnormality is identified to explain the clinical symptoms. There is no hydronephrosis. 2. The liver is normal in size and echotexture. Adan Machuca MD Head CT 08/14/172 Signed Impressions: Service Date/Time: July 22:54 - CONCLUSION: Unremarkable study. KStepan Villagomez MD Procedures * 08/25/17 - extubated. * 08/15/17-lumbar puncture by IR * 08/15/17 - right IJ central line, intubated. . Assessment and Plan Disease Oriented Problem List: (1) Acute respiratory failure (2) Septic shock (3) Tachycardia (4) UTI (urinary tract infection) (5) Alcohol abuse (6) Atrial fibrillation Comment: On Cardizem drip Symptom Scale: (1) Pain 0-10 Scale: 0 (2) Dyspnea 0-10 Scale: 0 (3) Weakness 0-10 Scale: 0 Comment: continue PT/ OT Pertinent Non-Medical Issues Psychosocial: . Lives with Nicole flores. Has 3 daughters and 1 son. Spiritual: [employer] david. Legal: According to her Living Will she names daughter, Silvia Carvajal as primary HCS and son Jl Olson as alternate HCS. Ethical issues impacting care: No known concerns at this time. . Important Contacts * Silvia "Nicole" Toby, daughter/ HCS: [phone] * Jl Olson, son/ alternate HCS: [phone] or [phone] * Jessica, daughter: [phone] * Chelsea, daughter: [phone] . Prognosis Ms. Olson is an 82 year old admitted with rhabdomyolysis, septic shock uncertain etiology, dehydration, renal failure. At this point we will need additional information to determine overall prognosis. Given her advanced age, she remain high risk for further setbacks or decline. . Code Status: Full Code Plan * Patient appears to have some insight and judgment regarding her current health condition, recommend shared medical decision making as her mentation seems to wax and wane. According to her Living Will she names daughterSilvia as primary HCS and son Jl Olson as alternate HCS. * FULL CODE. * Lengthy conversation with patient and her daughterNicole to review current medical conditions, prognosis (anticipate at this time patient will be able to survive this hospitalization, unless she has additional setbacks or problems that develop), patient and family request that should her condition change significantly that family be notified, lengthy conversation regarding patient goals of care. After reviewing the above information patient has decided that should she need reintubation that she would want to be reintubated, desires FULL CODE at this time. She does indicates that she would not want life prolonging measures if she had a terminal condition, end-stage condition or was in a persistent vegetative state. The patient's daughter, Nicole is her designated healthcare surrogate she understands her mother's wishes. * SYMPTOMS: Dyspnea: Medically extubated 08/25/17 am. Denies SOB on BiPAP. Pain: potential sources include intubation, chronic neck pain, infection, etc. Denies pain. Anxiety: Denies. Weakness: Continue PT/OT. No new medication recommendations at this time. * Palliative care will continue to throughout hospital course to assist with clarification of goals. . Attestation To help prompt me to consider important information that might be impacting today's encounter and assessment, information from prior notes written by myself or my colleagues may have been "brought forward" into today's note. My signature on this note, however, is an attestation that I personally performed the exam, history, and/or decision-making noted today, and, unless otherwise indicated, the interactions with patient, family, and staff as well as the review of records all occurred today. I also attest that the listed assessment and stated plan reflect my best clinical judgment today based on the combination of historical information, prior notes, and today's exam/ interactions. When time spent is documented, it refers only to time spent today by the signer, or if indicated, combined time spent today by collaborating physician/nurse practitioner. Vashti Riley Aug 28, 2017 17:58
[2017-08-29] VITALS (24 sets, daily range): BP systolic 84–136; BP diastolic 50–67; PULSE 48–82; RESP 20–28; TEMP 97.4–98.4; O2SAT 0–99
[2017-08-29] MEDS: metroNIDAZOLE 500 MG INJ 100 ML IV SCH ×2 (02:10→08:52)
[2017-08-29] MEDS: MORPHINE SULFATE 2 MG/ML INJ IV PRN (02:11)
[2017-08-29] MEDS: CEFEPIME INJ 2,000 MG in SODIUM CHLORIDE 0.9% INJ 100 ML IV SCH (02:15)
[2017-08-29] MEDS: RESP: IPRATROPIUM 0.5 MG/2.5 ML NEB NEB SCH ×6 (03:24→23:51)
[2017-08-29] MEDS: INSULIN NovoLIN REGULAR SUPPLEMENTAL SCALE SQ SCH ×6 (04:00→20:00)
[2017-08-29] MEDS: POTASSIUM CHLORIDE 25 MEQ EFFERVESCENT TAB NG SCH ×3 (04:00→20:00)
[2017-08-29 05:05] LABS: AUTOMATED NEUTROPHIL # 10.9 TH/MM3 (1.8-7.7); BASOPHIL # 0.1 TH/MM3 (0-0.2); BASOPHIL % 0.4 % (0.0-2.0); EOSINOPHIL % 0.3 % (0.0-4.0); HEMATOCRIT 22.6 % (35.0-46.0); HEMOGLOBIN 7.5 GM/DL (11.6-15.3); LYMPH % 13.3 % (9.0-44.0); LYMPHOCYTE # 1.8 TH/MM3 (1.0-4.8); MEAN CELL VOLUME 95.4 FL (80.0-100.0); MEAN CORPUSCULAR HEMOGLOBIN 31.4 PG (27.0-34.0); MEAN CORPUSCULAR HGB CONC 32.9 % (32.0-36.0); MEAN PLATELET VOLUME 9.2 FL (7.0-11.0); MONO % 7.3 % (0.0-8.0); NEUT % 78.7 % (16.0-70.0); PLATELET COUNT 480 TH/MM3 (150-450); RED BLOOD COUNT 2.37 MIL/MM3 (4.00-5.30); RED CELL DISTRIBUTION WIDTH 13.8 % (11.6-17.2); WHITE BLOOD COUNT 13.9 TH/MM3 (4.0-11.0)
[2017-08-29 05:19] LABS: BLOOD UREA NITROGEN 32 MG/DL (7-18); CREATININE 0.82 MG/DL (0.50-1.00); GLOMERULAR FILTRATION RATE 67 ML/MIN (>89); GLUCOSE,RANDOM 114 MG/DL (74-106); TOTAL PROTEIN 5.4 GM/DL (6.4-8.2)
[2017-08-29 05:20] LABS: ALBUMIN 1.9 GM/DL (3.4-5.0); ALKALINE PHOSPHATASE 57 U/L (45-117); ALT (GPT) 21 U/L (10-53); AST (GOT) 34 U/L (15-37); CALCIUM 7.6 MG/DL (8.5-10.1); CHLORIDE 111 MEQ/L (98-107); MAGNESIUM 1.9 MG/DL (1.5-2.5); PHOSPHORUS 2.7 MG/DL (2.5-4.9); SODIUM (NA) 146 MEQ/L (136-145); TOTAL BILIRUBIN ADULT 0.6 MG/DL (0.2-1.0)
[2017-08-29] MEDS: ARTIFICIAL TEARS OPTH SOLN 15 ML BTL EACH EYE SCH ×3 (06:00→20:01)
--- NOTE | 2017-08-29 06:57 | HHI.IDPN ---
Subjective Subjective Remarks Delayed entry for patient seen 08/28/2017 Ms. Olson is an 82 year old female with past medical history of hypertension, possible sleep apnea, chronic neck pain, sciatica, alcohol abuse, arthritis, chronic rectal prolapse with bowel incontinence and anxiety. Patients daughter reports she was away for last week (normally she lives with Mom). She checked on her mom each night. The night prior to admission patient and daughter spoke to each other and no reported fever or change in behavior etc noted. No recent bounced checks, change in behavior, fires, falls or doors left unopened or such security concerns. She was found by her daughter lying in bed. On questioning patient was not found vomiting and no seizures. But patient was found in urine and feces. With this background patient presented to [facility] ER on when daughter arrived home to find patient laying on the bed covered in urine and feces. She was obtunded and 911 was called. Upon arrival to the ER: * VS - 100.2, HR 104, RR 18, BP 125/55, O2 sat 95% on room air. * WBC 10.2, hgb 13.8, hct 41.6, platelets 304, neutrophils 91.3% * BUN 52, creatinine 3.39, glucose 177, sodium 141, potassium 5.1, chloride 103 , GFR 13 * Lactic acid 6.3 * TCK 3855, CK-MB 113.6, CK-MB 2.9% * CT head - unremarkable * CXR - minimal basilar atelectasis, no effusion or pneumothorax [facility] severe dehydration. acute renal failure, rhabdomyolysis, lactic acidosis, possible UTI, sepsis. Overnight she developed tachycardia, hypotension and hypoxemia. She was transferred to ICU placed on pressor support. She was started on heparin drip per PE protocol. Truck Spotter was consulted for hypotension, septic shock. On non -rebreather with with oxygen saturation 90% and BP 79/50. Since admission she was intubated and placed on mech vent. Infectious disease consulted for evaluation and M'ment of Pneumonia and Colitis. Overnight events reviewed. No fevers No rash Diarrhea cdiff negative on 08/21/17. Resp distress, on BiPAP and recd lasix. Colonoscopy C/W severe ischemic colitis Antibiotics Current Medications Medications (Trade) Dose Ordered Sig/Al Route Start Time Stop Time Status Last Admin (NS Flush) 2 ml UNSCH PRN IV FLUSH 08/15/17 02:00 08/21/17 11:15 (NS Flush) 2 ml BID IV FLUSH 08/15/17 09:00 08/27/17 09:11 (Narcan Inj) 0.4 mg UNSCH PRN IV PUSH 08/15/17 02:00 Metronidazole 100 ml @ 100 mls/hr Q6H IV 08/15/17 08:00 08/27/17 08:18 Miscellaneous Information Patient in critical care unit? Ass... Q361D .XX 08/15/17 06:15 08/15/17 06:15 (Romazicon Inj) 0.2 mg Q1M PRN IV PUSH 08/15/17 06:30 (Vitamin B1) 100 mg DAILY PO 08/15/17 12:00 08/27/17 08:19 (Theragran) 1 tab DAILY PO 08/15/17 12:00 08/27/17 08:19 (Folate) 1 mg DAILY PO 08/15/17 12:00 08/27/17 08:19 (Aspirin Chew) 81 mg DAILY OG-TUBE 08/15/17 19:00 08/27/17 08:19 (D50w (Vial) Inj) 50 ml UNSCH PRN IV PUSH 08/16/17 08:00 (Glucagon Inj) 1 mg UNSCH PRN OTHER 08/16/17 08:00 (NovoLIN R SUPPLEMENTAL SCALE) 1 Q4HR SQ 08/16/17 08:00 08/26/17 16:00 (Trandate Inj) 20 mg Q4H PRN IV PUSH 08/21/17 17:15 08/21/17 21:51 Micafungin Sodium 100 mg/Sodium Chloride 100 ml @ 100 mls/hr Q24H IV 08/22/17 11:00 08/26/17 11:24 (Melatonin) 5 mg HS PRN PO 08/23/17 19:00 08/27/17 01:53 (K-Lyte Cl Eff) 25 meq Q8H NG 08/23/17 20:00 08/27/17 04:00 Heparin Sodium/ Dextrose 250 ml @ 10 mls/hr TITRATE PRN IV 08/24/17 03:00 08/26/17 15:04 (Tears Naturale Opth Soln) 1 drop Q8HR EACH EYE 08/24/17 14:00 08/27/17 04:06 (Tylenol 650 Mg/ 20 ml Liq) 650 mg Q6H PRN NG 08/24/17 13:00 (Pepcid Liq) 20 mg BID NG 08/24/17 21:00 08/27/17 10:35 (Lanoxin Liq) 0.125 mg DAILY PO 08/25/17 09:00 08/27/17 08:19 (Ferrous Sulfate Liq) 300 mg BID PO 08/24/17 21:00 08/27/17 08:18 (Brethine Inj) 1 mg UNSCH PRN SQ 08/24/17 17:15 (NS Flush) DAILY IV FLUSH 08/25/17 09:00 08/27/17 09:11 (NS Flush) UNSCH PRN IV FLUSH 08/24/17 17:45 Cefepime HCl 2000 mg/Sodium Chloride 100 ml @ 200 mls/hr Q12H IV 08/25/17 14:00 08/27/17 01:52 (Duoneb Neb) 1 ampule Q4HR NEB NEB 08/25/17 12:00 08/25/17 21:21 (Duoneb Neb) 1 ampule Q2HR NEB PRN NEB 08/25/17 10:00 Miscellaneous Information D/C ICU ELECTROLYTE ORDERS... UNSCH PRN .XX 08/25/17 15:00 Miscellaneous Information ICU - CALL ORDERING PHYSIC... UNSCH PRN .XX 08/25/17 15:00 Potassium Chloride 100 ml @ 25 mls/hr UNSCH PRN IV 08/25/17 15:00 08/26/17 12:35 (K-Lyte Cl Eff) 50 meq UNSCH PRN PO 08/25/17 15:00 Potassium Chloride 100 ml @ 50 mls/hr UNSCH PRN IV 08/25/17 15:00 Magnesium Sulfate 4 gm/Sodium Chloride 108 ml @ 54 mls/hr UNSCH PRN IV 08/25/17 15:00 Magnesium Sulfate 2 gm/Sodium Chloride 104 ml @ 52 mls/hr UNSCH PRN IV 08/25/17 15:00 (Mag-Ox) 800 mg UNSCH PRN PO 08/25/17 15:00 Sodium Phosphate 30 mmol/Sodium Chloride 260 ml @ 43.333 mls/ hr UNSCH PRN IV 08/25/17 15:00 (K-Phos) 2,000 mg UNSCH PRN PO 08/25/17 15:00 Potassium Phosphate 30 mmol/ Sodium Chloride 260 ml @ 43.333 mls/ hr UNSCH PRN IV 08/25/17 15:00 08/25/17 14:58 Fluconazole/ Sodium Chloride 400 ml @ 100 mls/hr Q24H IV 08/26/17 08:00 08/26/17 08:38 (Lopressor) 50 mg Q12HR PO 08/26/17 09:00 08/27/17 08:19 (Atrovent Neb) 0.5 mg Q2HR NEB PRN NEB 08/26/17 08:00 (Atrovent Neb) 0.5 mg Q4HR NEB NEB 08/26/17 08:00 08/27/17 11:04 (Pill Splitter) 1 ea UNSCH PRN OTHER 08/26/17 08:30 Diltiazem HCl 125 mg/Sodium Chloride 125 ml @ 5 mls/hr TITRATE PRN IV 08/26/17 14:30 08/26/17 21:43 (Roxicodone) 5 mg Q6H PRN PO 08/27/17 13:00 (Lasix Inj) 40 mg BID@,18 IV PUSH 08/27/17 09:00 08/27/17 10:34 (Morphine Inj) 1 mg Q4H PRN IV 08/27/17 11:00 Lines Line sites with no e.o infections. Past Medical History reviewed Allergies: Coded Allergies: No Known Allergies (Verified Allergy, Unknown, 08/15/17) Objective . Vital Signs Date Time Temp Pulse Resp B/P (MAP) Pulse Ox O2 Delivery O2 Flow Rate FiO2 08/29/17 02:00 62 08/29/17 01:50 93 70 08/29/17 00:00 82 08/28/17 22:09 94 70 08/28/17 22:00 82 08/28/17 20:36 70 106/65 08/28/17 20:35 94 70 08/28/17 20:28 92 Nasal Cannula 5.00 08/28/17 20:00 83 08/28/17 18:00 75 08/28/17 16:00 71 08/28/17 16:00 97.2 71 35 90/60 (70) 08/28/17 15:34 72 104/64 08/28/17 14:00 62 08/28/17 12:00 97.4 71 34 98/85 (89) 81 08/28/17 12:00 71 08/28/17 11:31 93 70 08/28/17 10:00 77 08/28/17 08:00 97.7 79 32 111/55 (73) 93 08/28/17 08:00 79 08/28/17 07:54 96 40 . Laboratory Tests Test 08/28/17 04:00 08/29/17 04:00 White Blood Count 16.8 TH/MM3 13.9 TH/MM3 Red Blood Count 2.37 MIL/MM3 2.37 MIL/MM3 Hemoglobin 7.4 GM/DL 7.5 GM/DL Hematocrit 22.3 % 22.6 % Mean Corpuscular Volume 94.1 FL 95.4 FL Mean Corpuscular Hemoglobin 31.2 PG 31.4 PG Mean Corpuscular Hemoglobin Concent 33.1 % 32.9 % Red Cell Distribution Width 14.0 % 13.8 % Platelet Count 467 TH/MM3 480 TH/MM3 Mean Platelet Volume 9.3 FL 9.2 FL Neutrophils (%) (Auto) 78.9 % 78.7 % Lymphocytes (%) (Auto) 14.0 % 13.3 % Monocytes (%) (Auto) 6.5 % 7.3 % Eosinophils (%) (Auto) 0.2 % 0.3 % Basophils (%) (Auto) 0.4 % 0.4 % Neutrophils # (Auto) 13.3 TH/MM3 10.9 TH/MM3 Lymphocytes # (Auto) 2.4 TH/MM3 1.8 TH/MM3 Monocytes # (Auto) 1.1 TH/MM3 1.0 TH/MM3 Eosinophils # (Auto) 0.0 TH/MM3 0.0 TH/MM3 Basophils # (Auto) 0.1 TH/MM3 0.1 TH/MM3 CBC Comment AUTO DIFF AUTO DIFF Differential Total Cells Counted 100 Neutrophils % (Manual) 91 % Lymphocytes % 4 % Monocytes % 3 % Neutrophils # (Manual) 15.6 TH/MM3 Myelocytes 2 % Nucleated Red Blood Cells 9 /100 WBC Differential Comment FINAL DIFF MANUAL Platelet Estimate HIGH Platelet Morphology Comment NORMAL Laboratory Tests Test 08/27/17 15:19 08/28/17 04:00 08/29/17 04:00 Blood Urea Nitrogen 24 MG/DL 28 MG/DL 32 MG/DL Creatinine 0.73 MG/DL 0.78 MG/DL 0.82 MG/DL Random Glucose 143 MG/DL 117 MG/DL 114 MG/DL Total Protein 5.9 GM/DL 5.6 GM/DL 5.4 GM/DL Albumin 2.0 GM/DL 2.0 GM/DL 1.9 GM/DL Calcium Level 7.6 MG/DL 7.6 MG/DL 7.6 MG/DL Magnesium Level 2.1 MG/DL 1.9 MG/DL Alkaline Phosphatase 47 U/L 45 U/L 57 U/L Aspartate Amino Transf (AST/SGOT) 13 U/L 14 U/L 34 U/L Alanine Aminotransferase (ALT/SGPT) 16 U/L 13 U/L 21 U/L Total Bilirubin 0.6 MG/DL 0.6 MG/DL 0.6 MG/DL Sodium Level 147 MEQ/L 150 MEQ/L 146 MEQ/L Potassium Level 3.8 MEQ/L 3.7 MEQ/L 3.2 MEQ/L Chloride Level 111 MEQ/L 113 MEQ/L 111 MEQ/L Carbon Dioxide Level 27.9 MEQ/L 27.4 MEQ/L 28.0 MEQ/L Anion Gap 8 MEQ/L 10 MEQ/L 7 MEQ/L Estimat Glomerular Filtration Rate 76 ML/MIN 71 ML/MIN 67 ML/MIN Phosphorus Level 2.9 MG/DL 2.7 MG/DL Microbiology Date/Time Source Procedure Growth Status 08/26/17 08:35 Blood Peripheral Aerobic Blood Culture - Preliminary NO GROWTH IN 2 DAYS Resulted 08/26/17 08:35 Blood Peripheral Anaerobic Blood Culture - Preliminary NO GROWTH IN 2 DAYS Resulted 08/26/17 08:28 Blood Peripheral Aerobic Blood Culture - Preliminary NO GROWTH IN 2 DAYS Resulted 08/26/17 08:28 Blood Peripheral Anaerobic Blood Culture - Preliminary NO GROWTH IN 2 DAYS Resulted Imaging Last Impressions Abdomen X-Ray 08/21/17 0600 Signed Impressions: Service Date/Time: July 03:35 - CONCLUSION: The bowel gas pattern remains fairly unremarkable. Jl Stanley MD Chest X-Ray 08/21/17 0000 Signed Impressions: Service Date/Time: July 19:39 - CONCLUSION: 1. Stable tubes and lines, as above. 2. Worsening bilateral lower lung zone pleural parenchymal disease. Douglas Jean MD Lumbar Puncture Fluoroscopy 08/15/17 0000 Signed Impressions: Service Date/Time: Tuesday, August 15, 2017 15:36 - CONCLUSION: 1. Uncomplicated fluoroscopically guided lumbar puncture. 2. Please note, requested opening pressures were not obtained due to technical difficulties. Shahsi Moreno MD Brain MRI 08/15/17 0000 Signed Impressions: Service Date/Time: Tuesday, August 15, 2017 16:57 - CONCLUSION: 1. 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 2. Mild stenosis in the upper cervical spine as above. Esau Martell MD Abdomen/Pelvis CT 08/15/17 0000 Signed Impressions: Service Date/Time: Wednesday, August 16, 2017 00:25 - CONCLUSION: 1. Abnormal thickening of the descending colonic wall and the possibility of colitis should be entertained. There is also thickening of distal ileal wall which may be inflammatory as well. 2. There is mild anasarca with edema or inflammatory changes within the bilateral paracolic gutters extending down into the pelvis. 3. Small bilateral pleural effusions and bibasilar atelectasis and/or infiltrate. 4. Prominent ileocecal valve and possibility of lipoma at this site is not excluded. Josseline Villagomez MD Abdomen Ultrasound 08/15/17 0000 Signed Impressions: Service Date/Time: Tuesday, August 15, 2017 10:40 - CONCLUSION: 1. No abnormality is identified to explain the clinical symptoms. There is no hydronephrosis. 2. The liver is normal in size and echotexture. Adan Machuca MD Head CT 08/14/[id number] Signed Impressions: Service Date/Time: July 22:54 - CONCLUSION: Unremarkable study. Josseline Villagomez MD Physical Exam GENERAL: Awake, following simple commands, in mild resp distress on BiPAP. SKIN: No rashes, ecchymoses or lesions. Warm and dry. HEAD: Atraumatic. Normocephalic. No temporal or scalp tenderness. EYES: Pupils equal round and reactive. Extraocular motions intact. No scleral icterus. No injection or drainage. Has mild scleral edema ENT: Moist oral mucosa, no nasal drainage NECK: Trachea midline. Supple, nontender, CARDIOVASCULAR: + murmur, no gallops, rub RESPIRATORY: Bilateral rhonchi GASTROINTESTINAL: Abdomen distended, not tender, hypoactive bowels sounds, no guarding or rebound. MUSCULOSKELETAL: Extremities without clubbing, cyanosis. Has edema hands. No calf tenderness. Negative Homans sign bilaterally. NEUROLOGICAL: Opens eyes spontaneously, moves all 4 extremities. Psych: Cooperative IV line sites with no e.o infection. Assessment & Plan Remarks Assessment and Plan Fungemia in setting of bilateral UE DVT will treat as Septic thrombophlebitis. Sepsis. Pneumonia. sputum normal resp juancarlos. Staph epidermidis: likely pseudobacteremia/contaminant. Specimen from old line, already removed. Acute resp failure on vent Acute metabolic encephalopathy: appears resolving. Alcohol abuse: at risk for withdrawal. Acute rhabdomyolysis: ? seizures. Acute renal failure: sepsis, prerenal, rhabdomyolysis. Colitis clinically and radiologically ; likely ischemic - C diff negative Recs: Continue Cefepime IV reduce dose to q12hrs as no PSAE. Continue Flagyl for aspiration PNA and Colitis. Continue Micafungin IV and Diflucan for C.Parapsilosis fungal septic thrombophlebitis. On heparin for bilateral UE DVT for septic thrombophlebitis per [facility]. If persistent fungemia will get repeat limited 2D ECHO. Follow dariusz D/W RN Spoke with daughter at bedside - updated on current work-up and treatment Piedad Corea MD Aug 29, 2017 06:57
[2017-08-29] MEDS: FLUCONAZOLE 400 MG PREMIX BAG 200 ML IV SCH ×2 (08:51→11:05)
[2017-08-29] MEDS: FUROSEMIDE 40 MG/4 ML VIAL IV PUSH SCH ×2 (08:52→18:07)
[2017-08-29] MEDS: SODIUM CHLORIDE 0.9% FLUSH 10 ML FLUSH IV FLUSH SCH ×3 (08:52→20:05)
[2017-08-29] MEDS: METOPROLOL TARTRATE 25 MG TAB PO SCH (08:53)
[2017-08-29] MEDS: FOLIC ACID 1 MG TAB PO SCH (08:53)
[2017-08-29] MEDS: FERROUS SULFATE 300 MG /5ML UDC PO SCH ×2 (08:53→20:01)
[2017-08-29] MEDS: ASPIRIN 81 MG CHEW TAB OG-TUBE SCH (08:53)
[2017-08-29] MEDS: FAMOTIDINE 40 MG/5 ML LIQ 50 ML BTL NG SCH (08:53)
[2017-08-29] MEDS: MULTIVITAMIN TAB PO SCH (08:53)
[2017-08-29] MEDS: THIAMINE HCL 100 MG TAB PO SCH (08:54)
[2017-08-29] MEDS ORDERED: DEXMEDETOMIDINE HCL 200 MCG/2 ML VIAL IV PUSH ONE (09:00)
[2017-08-29] MEDS: DIGOXIN SOLUTION 0.125 MG/2.5 ML CUP PO SCH (09:00)
[2017-08-29] MEDS: DEXMEDETOMIDINE INJ 200 MCG in SODIUM CHLORIDE 0.9% INJ 50 ML IV PRN ×2 (09:23→15:59)
[2017-08-29 09:32] LABS: BANDS 1 % (0-6); CORRECTED NUCLEATED RBC 7 /100 WBC (0-0); LYMPHOCYTES 10 % (9-44); MONOCYTES 4 % (0-8); MYELOCYTES 1 % (0-0); NUCLEATED RED BLOOD CELL 7 (0-0); POLYS (SEG NEUTROPHILS) 84 % (16-70)
[2017-08-29 09:33] LABS: POLYCHROMASIA 2.5 % (0.0-1.9)
[2017-08-29] MEDS: MICAFUNGIN INJ 100 MG in SODIUM CHLORIDE 0.9% INJ 100 ML IV SCH (11:06)
[2017-08-29] MEDS: ICU - POTASSIUM CHLORIDE/AQUEOUS SOLN 40 MEQ/100 ML IVPB IV PRN ×2 (11:07→16:51)
[2017-08-29] MEDS: RESP: ALBUTEROL 2.5 MG/IPRATROPIUM 0.5 MG NEB (SCH) NEB (11:09)
[2017-08-29] MEDS ORDERED: SODIUM CHLOR 0.9% 250 ML INJ 250 ML IV ONE (11:30)
[2017-08-29] MEDS ORDERED: FUROSEMIDE 20 MG/2 ML VIAL IV PUSH ONE (11:30)
[2017-08-29] MEDS ORDERED: PHENYLEPHRINE HCL 10 MG/ML VIAL ONE (11:42)
[2017-08-29] MEDS ORDERED: ASP: Other exception documentation: ( ) PRN (12:00)
[2017-08-29] MEDS ORDERED: MISCELLANEOUS PHARMACY INFORMATION XX PRN (12:00)
[2017-08-29] MEDS ORDERED: methylPREDNISolone SOD SUCC 125 MG/2 ML VIAL ONE (12:24)
--- NOTE | 2017-08-29 12:24 | HHI.PR ---
Subjective Subjective Notes critically ill, still in resp failure, hypotensive Objective Vitals/I&O Vital Signs Date Time Temp Pulse Resp B/P (MAP) Pulse Ox O2 Delivery O2 Flow Rate FiO2 08/29/17 11:11 0 75 08/29/17 06:00 62 08/29/17 04:00 97.5 26 101/53 (69) 08/28/17 20:28 Nasal Cannula 5.00 Labs Laboratory Tests Test 08/29/17 04:00 08/29/17 06:35 08/29/17 11:45 White Blood Count 13.9 Red Blood Count 2.37 Hemoglobin 7.5 Hematocrit 22.6 Mean Corpuscular Volume 95.4 Mean Corpuscular Hemoglobin 31.4 Mean Corpuscular Hemoglobin Concent 32.9 Red Cell Distribution Width 13.8 Platelet Count 480 Mean Platelet Volume 9.2 Neutrophils (%) (Auto) 78.7 Lymphocytes (%) (Auto) 13.3 Monocytes (%) (Auto) 7.3 Eosinophils (%) (Auto) 0.3 Basophils (%) (Auto) 0.4 Neutrophils # (Auto) 10.9 Lymphocytes # (Auto) 1.8 Monocytes # (Auto) 1.0 Eosinophils # (Auto) 0.0 Basophils # (Auto) 0.1 CBC Comment AUTO DIFF Differential Total Cells Counted 100 Neutrophils % (Manual) 84 Band Neutrophils % 1 Lymphocytes % 10 Monocytes % 4 Neutrophils # (Manual) 12.0 Myelocytes 1 Nucleated Red Blood Cells 7 Differential Comment FINAL DIFF MANUAL Platelet Estimate HIGH Platelet Morphology Comment ENLARGED Polychromasia 2.5 Activated Partial Thromboplast Time 70.0 Blood Urea Nitrogen 32 Creatinine 0.82 Random Glucose 114 Total Protein 5.4 Albumin 1.9 Calcium Level 7.6 Phosphorus Level 2.7 Magnesium Level 1.9 Alkaline Phosphatase 57 Aspartate Amino Transf (AST/SGOT) 34 Alanine Aminotransferase (ALT/SGPT) 21 Total Bilirubin 0.6 Sodium Level 146 Potassium Level 3.2 Chloride Level 111 Carbon Dioxide Level 28.0 Anion Gap 7 Estimat Glomerular Filtration Rate 67 Blood Gas Puncture Site RT BRACHIAL RT BRACHIAL Blood Gas Patient Temperature 98.6 98.6 Blood Gas HCO3 23 23 Blood Gas Base Excess 0.7 0.3 Blood Gas Oxygen Saturation 97 93 Arterial Blood pH 7.52 7.55 Arterial Blood Partial Pressure CO2 29 26 Arterial Blood Partial Pressure O2 152 80 Arterial Blood Oxygen Content 10.8 9.7 Arterial Blood Carboxyhemoglobin 0.8 0.9 Arterial Blood Methemoglobin 1.1 1.3 Blood Gas Hemoglobin 7.7 7.3 Oxygen Delivery Device BIPAP BIPAP Blood Gas Ventilator Setting IPAP 12/EPAP 5 IPAP14/EPAP5 Blood Gas Inspired Oxygen 100 75 Date/Time Source Procedure Growth Status 08/26/17 08:35 Blood Peripheral Aerobic Blood Culture - Preliminary NO GROWTH IN 3 DAYS Resulted 08/26/17 08:35 Blood Peripheral Anaerobic Blood Culture - Preliminary NO GROWTH IN 3 DAYS Resulted 08/15/17 15:56 Cerebral Spinal Fluid Lumbar Puncture Gram Stain - Final Complete 08/15/17 15:56 Cerebral Spinal Fluid Lumbar Puncture CSF Culture - Final NO GROWTH IN 72 HOURS Complete 08/15/17 02:28 Stool Stool Stool Occult Blood (MARCIA) - Final HEMOCCULT NEGATIVE Complete 08/21/17 15:20 Sputum Endotracheal Gram Stain - Final Complete 08/21/17 15:20 Sputum Endotracheal Sputum Culture - Final NO GROWTH IN 48 HOURS. Complete 08/21/17 13:45 Urine Catheterized Urine Urine Culture - Final NO GROWTH IN 48 HOURS. Complete Abdomen: Non-distended, Non-tender Narrative Exam abdominal exam mild distension, tympanic, no rebound or peritonitis A/P Assessment and Plan 82yo female respiratory failure, ischemic colitis 2/2 hypotension/shock related to EtOH. ischemic colitis seems stable KUB today stable, no acute process will sign off, please call if surgery can be of any further assistance Rolo Guadalupe MD Aug 29, 2017 12:24
--- NOTE | 2017-08-29 12:33 | HHI.IDPN ---
Subjective Subjective Remarks Ms. Olson is an 82 year old female with past medical history of hypertension, possible sleep apnea, chronic neck pain, sciatica, alcohol abuse, arthritis, chronic rectal prolapse with bowel incontinence and anxiety. Patients daughter reports she was away for last week (normally she lives with Mom). She checked on her mom each night. The night prior to admission patient and daughter spoke to each other and no reported fever or change in behavior etc noted. No recent bounced checks, change in behavior, fires, falls or doors left unopened or such security concerns. She was found by her daughter lying in bed. On questioning patient was not found vomiting and no seizures. But patient was found in urine and feces. With this background patient presented to [facility] ER on when daughter arrived home to find patient laying on the bed covered in urine and feces. She was obtunded and 911 was called. Upon arrival to the ER: * VS - 100.2, HR 104, RR 18, BP 125/55, O2 sat 95% on room air. * WBC 10.2, hgb 13.8, hct 41.6, platelets 304, neutrophils 91.3% * BUN 52, creatinine 3.39, glucose 177, sodium 141, potassium 5.1, chloride 103 , GFR 13 * Lactic acid 6.3 * TCK 3855, CK-MB 113.6, CK-MB 2.9% * CT head - unremarkable * CXR - minimal basilar atelectasis, no effusion or pneumothorax [facility]. acute renal failure, rhabdomyolysis, lactic acidosis, possible UTI, sepsis. Overnight she developed tachycardia, hypotension and hypoxemia. She was transferred to ICU placed on pressor support. She was started on heparin drip per PE protocol. Welding Estimator was consulted for hypotension, septic shock. On non -rebreather with with oxygen saturation 90% and BP 79/50. Since admission [facility] Infectious disease following for M'ment of Pneumonia and Colitis. Overnight events reviewed. No fevers No rash Resp distress, on BiPAP and recd lasix. Colonoscopy C/W severe ischemic colitis Antibiotics Current Medications Medications (Trade) Dose Ordered Sig/Al Route Start Time Stop Time Status Last Admin (NS Flush) 2 ml UNSCH PRN IV FLUSH 08/15/17 02:00 08/21/17 11:15 (NS Flush) 2 ml BID IV FLUSH 08/15/17 09:00 08/27/17 09:11 (Narcan Inj) 0.4 mg UNSCH PRN IV PUSH 08/15/17 02:00 Metronidazole 100 ml @ 100 mls/hr Q6H IV 08/15/17 08:00 08/27/17 08:18 Miscellaneous Information Patient in critical care unit? Ass... Q361D .XX 08/15/17 06:15 08/15/17 06:15 (Romazicon Inj) 0.2 mg Q1M PRN IV PUSH 08/15/17 06:30 (Vitamin B1) 100 mg DAILY PO 08/15/17 12:00 08/27/17 08:19 (Theragran) 1 tab DAILY PO 08/15/17 12:00 08/27/17 08:19 (Folate) 1 mg DAILY PO 08/15/17 12:00 08/27/17 08:19 (Aspirin Chew) 81 mg DAILY OG-TUBE 08/15/17 19:00 08/27/17 08:19 (D50w (Vial) Inj) 50 ml UNSCH PRN IV PUSH 08/16/17 08:00 (Glucagon Inj) 1 mg UNSCH PRN OTHER 08/16/17 08:00 (NovoLIN R SUPPLEMENTAL SCALE) 1 Q4HR SQ 08/16/17 08:00 08/26/17 16:00 (Trandate Inj) 20 mg Q4H PRN IV PUSH 08/21/17 17:15 08/21/17 21:51 Micafungin Sodium 100 mg/Sodium Chloride 100 ml @ 100 mls/hr Q24H IV 08/22/17 11:00 08/26/17 11:24 (Melatonin) 5 mg HS PRN PO 08/23/17 19:00 08/27/17 01:53 (K-Lyte Cl Eff) 25 meq Q8H NG 08/23/17 20:00 08/27/17 04:00 Heparin Sodium/ Dextrose 250 ml @ 10 mls/hr TITRATE PRN IV 08/24/17 03:00 08/26/17 15:04 (Tears Naturale Opth Soln) 1 drop Q8HR EACH EYE 08/24/17 14:00 08/27/17 04:06 (Tylenol 650 Mg/ 20 ml Liq) 650 mg Q6H PRN NG 08/24/17 13:00 (Pepcid Liq) 20 mg BID NG 08/24/17 21:00 08/27/17 10:35 (Lanoxin Liq) 0.125 mg DAILY PO 08/25/17 09:00 08/27/17 08:19 (Ferrous Sulfate Liq) 300 mg BID PO 08/24/17 21:00 08/27/17 08:18 (Brethine Inj) 1 mg UNSCH PRN SQ 08/24/17 17:15 (NS Flush) DAILY IV FLUSH 08/25/17 09:00 08/27/17 09:11 (NS Flush) UNSCH PRN IV FLUSH 08/24/17 17:45 Cefepime HCl 2000 mg/Sodium Chloride 100 ml @ 200 mls/hr Q12H IV 08/25/17 14:00 08/27/17 01:52 (Duoneb Neb) 1 ampule Q4HR NEB NEB 08/25/17 12:00 08/25/17 21:21 (Duoneb Neb) 1 ampule Q2HR NEB PRN NEB 08/25/17 10:00 Miscellaneous Information D/C ICU ELECTROLYTE ORDERS... UNSCH PRN .XX 08/25/17 15:00 Miscellaneous Information ICU - CALL ORDERING PHYSIC... UNSCH PRN .XX 08/25/17 15:00 Potassium Chloride 100 ml @ 25 mls/hr UNSCH PRN IV 08/25/17 15:00 08/26/17 12:35 (K-Lyte Cl Eff) 50 meq UNSCH PRN PO 08/25/17 15:00 Potassium Chloride 100 ml @ 50 mls/hr UNSCH PRN IV 08/25/17 15:00 Magnesium Sulfate 4 gm/Sodium Chloride 108 ml @ 54 mls/hr UNSCH PRN IV 08/25/17 15:00 Magnesium Sulfate 2 gm/Sodium Chloride 104 ml @ 52 mls/hr UNSCH PRN IV 08/25/17 15:00 (Mag-Ox) 800 mg UNSCH PRN PO 08/25/17 15:00 Sodium Phosphate 30 mmol/Sodium Chloride 260 ml @ 43.333 mls/ hr UNSCH PRN IV 08/25/17 15:00 (K-Phos) 2,000 mg UNSCH PRN PO 08/25/17 15:00 Potassium Phosphate 30 mmol/ Sodium Chloride 260 ml @ 43.333 mls/ hr UNSCH PRN IV 08/25/17 15:00 08/25/17 14:58 Fluconazole/ Sodium Chloride 400 ml @ 100 mls/hr Q24H IV 08/26/17 08:00 08/26/17 08:38 (Lopressor) 50 mg Q12HR PO 08/26/17 09:00 08/27/17 08:19 (Atrovent Neb) 0.5 mg Q2HR NEB PRN NEB 08/26/17 08:00 (Atrovent Neb) 0.5 mg Q4HR NEB NEB 08/26/17 08:00 08/27/17 11:04 (Pill Splitter) 1 ea UNSCH PRN OTHER 08/26/17 08:30 Diltiazem HCl 125 mg/Sodium Chloride 125 ml @ 5 mls/hr TITRATE PRN IV 08/26/17 14:30 08/26/17 21:43 (Roxicodone) 5 mg Q6H PRN PO 08/27/17 13:00 (Lasix Inj) 40 mg BID@,18 IV PUSH 08/27/17 09:00 08/27/17 10:34 (Morphine Inj) 1 mg Q4H PRN IV 08/27/17 11:00 Lines Line sites with no e.o infections. Past Medical History reviewed Allergies: Coded Allergies: No Known Allergies (Verified Allergy, Unknown, 08/15/17) Objective . Vital Signs Date Time Temp Pulse Resp B/P (MAP) Pulse Ox O2 Delivery O2 Flow Rate FiO2 08/29/17 11:11 0 75 08/29/17 07:50 0 75 08/29/17 06:00 62 08/29/17 04:00 97.5 76 26 101/53 (69) 92 08/29/17 04:00 65 08/29/17 02:00 62 08/29/17 01:50 93 70 08/29/17 00:00 82 08/29/17 00:00 72 28 118/66 (83) 91 08/28/17 22:09 94 70 08/28/17 22:00 82 08/28/17 20:36 70 106/65 08/28/17 20:35 94 70 08/28/17 20:28 92 Nasal Cannula 5.00 08/28/17 20:00 97.4 76 36 94 08/28/17 20:00 83 08/28/17 18:00 75 08/28/17 16:00 71 08/28/17 16:00 97.2 71 35 90/60 (70) 08/28/17 15:34 72 104/64 08/28/17 14:00 62 . Laboratory Tests Test 08/28/17 04:00 08/29/17 04:00 White Blood Count 16.8 TH/MM3 13.9 TH/MM3 Red Blood Count 2.37 MIL/MM3 2.37 MIL/MM3 Hemoglobin 7.4 GM/DL 7.5 GM/DL Hematocrit 22.3 % 22.6 % Mean Corpuscular Volume 94.1 FL 95.4 FL Mean Corpuscular Hemoglobin 31.2 PG 31.4 PG Mean Corpuscular Hemoglobin Concent 33.1 % 32.9 % Red Cell Distribution Width 14.0 % 13.8 % Platelet Count 467 TH/MM3 480 TH/MM3 Mean Platelet Volume 9.3 FL 9.2 FL Neutrophils (%) (Auto) 78.9 % 78.7 % Lymphocytes (%) (Auto) 14.0 % 13.3 % Monocytes (%) (Auto) 6.5 % 7.3 % Eosinophils (%) (Auto) 0.2 % 0.3 % Basophils (%) (Auto) 0.4 % 0.4 % Neutrophils # (Auto) 13.3 TH/MM3 10.9 TH/MM3 Lymphocytes # (Auto) 2.4 TH/MM3 1.8 TH/MM3 Monocytes # (Auto) 1.1 TH/MM3 1.0 TH/MM3 Eosinophils # (Auto) 0.0 TH/MM3 0.0 TH/MM3 Basophils # (Auto) 0.1 TH/MM3 0.1 TH/MM3 CBC Comment AUTO DIFF AUTO DIFF Differential Total Cells Counted 100 100 Neutrophils % (Manual) 91 % 84 % Lymphocytes % 4 % 10 % Monocytes % 3 % 4 % Neutrophils # (Manual) 15.6 TH/MM3 12.0 TH/MM3 Myelocytes 2 % 1 % Nucleated Red Blood Cells 9 /100 WBC 7 /100 WBC Differential Comment FINAL DIFF MANUAL FINAL DIFF MANUAL Platelet Estimate HIGH HIGH Platelet Morphology Comment NORMAL ENLARGED Band Neutrophils % 1 % Polychromasia 2.5 % Laboratory Tests Test 08/27/17 15:19 08/28/17 04:00 08/29/17 04:00 Blood Urea Nitrogen 24 MG/DL 28 MG/DL 32 MG/DL Creatinine 0.73 MG/DL 0.78 MG/DL 0.82 MG/DL Random Glucose 143 MG/DL 117 MG/DL 114 MG/DL Total Protein 5.9 GM/DL 5.6 GM/DL 5.4 GM/DL Albumin 2.0 GM/DL 2.0 GM/DL 1.9 GM/DL Calcium Level 7.6 MG/DL 7.6 MG/DL 7.6 MG/DL Magnesium Level 2.1 MG/DL 1.9 MG/DL Alkaline Phosphatase 47 U/L 45 U/L 57 U/L Aspartate Amino Transf (AST/SGOT) 13 U/L 14 U/L 34 U/L Alanine Aminotransferase (ALT/SGPT) 16 U/L 13 U/L 21 U/L Total Bilirubin 0.6 MG/DL 0.6 MG/DL 0.6 MG/DL Sodium Level 147 MEQ/L 150 MEQ/L 146 MEQ/L Potassium Level 3.8 MEQ/L 3.7 MEQ/L 3.2 MEQ/L Chloride Level 111 MEQ/L 113 MEQ/L 111 MEQ/L Carbon Dioxide Level 27.9 MEQ/L 27.4 MEQ/L 28.0 MEQ/L Anion Gap 8 MEQ/L 10 MEQ/L 7 MEQ/L Estimat Glomerular Filtration Rate 76 ML/MIN 71 ML/MIN 67 ML/MIN Phosphorus Level 2.9 MG/DL 2.7 MG/DL Imaging Last Impressions Abdomen X-Ray 08/21/17 0600 Signed Impressions: Service Date/Time: July 03:35 - CONCLUSION: The bowel gas pattern remains fairly unremarkable. Jl Stanley MD Chest X-Ray 08/21/17 0000 Signed Impressions: Service Date/Time: July 19:39 - CONCLUSION: 1. Stable tubes and lines, as above. 2. Worsening bilateral lower lung zone pleural parenchymal disease. Douglas Jean MD Lumbar Puncture Fluoroscopy 08/15/17 0000 Signed Impressions: Service Date/Time: Tuesday, August 15, 2017 15:36 - CONCLUSION: 1. Uncomplicated fluoroscopically guided lumbar puncture. 2. Please note, requested opening pressures were not obtained due to technical difficulties. Shashi Moreno MD Brain MRI 08/15/17 0000 Signed Impressions: Service Date/Time: Tuesday, August 15, 2017 16:57 - CONCLUSION: 1. 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 2. Mild stenosis in the upper cervical spine as above. Esau Martell MD Abdomen/Pelvis CT 08/15/17 0000 Signed Impressions: Service Date/Time: Wednesday, August 16, 2017 00:25 - CONCLUSION: 1. Abnormal thickening of the descending colonic wall and the possibility of colitis should be entertained. There is also thickening of distal ileal wall which may be inflammatory as well. 2. There is mild anasarca with edema or inflammatory changes within the bilateral paracolic gutters extending down into the pelvis. 3. Small bilateral pleural effusions and bibasilar atelectasis and/or infiltrate. 4. Prominent ileocecal valve and possibility of lipoma at this site is not excluded. Josseline Villagomez MD Abdomen Ultrasound 08/15/17 0000 Signed Impressions: Service Date/Time: Tuesday, August 15, 2017 10:40 - CONCLUSION: 1. No abnormality is identified to explain the clinical symptoms. There is no hydronephrosis. 2. The liver is normal in size and echotexture. Adan Machuca MD Head CT 08/14/17 223 Signed Impressions: Service Date/Time: July 22:54 - CONCLUSION: Unremarkable study. Josseline Villagomez MD Physical Exam GENERAL: Awake, following simple commands, in mild resp distress on BiPAP. SKIN: No rashes, ecchymoses or lesions. Warm and dry. HEAD: Atraumatic. Normocephalic. No temporal or scalp tenderness. EYES: Pupils equal round and reactive. Extraocular motions intact. No scleral icterus. No injection or drainage. Has mild scleral edema ENT: Moist oral mucosa, no nasal drainage NECK: Trachea midline. Supple, nontender, CARDIOVASCULAR: + murmur, no gallops, rub RESPIRATORY: Bilateral rhonchi GASTROINTESTINAL: Abdomen distended, not tender, hypoactive bowels sounds, no guarding or rebound. MUSCULOSKELETAL: Extremities without clubbing, cyanosis. Has edema hands. No calf tenderness. Negative Homans sign bilaterally. NEUROLOGICAL: Opens eyes spontaneously, moves all 4 extremities. Psych: Cooperative IV line sites with no e.o infection. Assessment & Plan Remarks Assessment and Plan Fungemia in setting of bilateral UE DVT will treat as Septic thrombophlebitis. C.Parapsilosis fungal septic thrombophlebitis. Sepsis. Possible HCAP with effusions. Staph epidermidis: likely pseudobacteremia/contaminant. Specimen from old line, already removed. Acute resp failure on vent Acute metabolic encephalopathy: appears resolving. Alcohol abuse: at risk for withdrawal. Acute rhabdomyolysis: ? seizures. Acute renal failure: sepsis, prerenal, rhabdomyolysis. Colitis clinically and radiologically ; likely ischemic - C diff negative Recs: DC Cefepime IV DC Flagyl IV Start Meropenem IV Start Zyvox IV Continue Micafungin IV and Diflucan for C.Parapsilosis fungal septic thrombophlebitis. Continue Diflucan IV Stat CXR (bilateral effusions and pneumonia) Stat KUB abdomen (reviewed with : no free air, abdomen clinically soft as well) On heparin for bilateral UE DVT for septic thrombophlebitis per [facility]. Spoke with daughters and son at bedside - updated on current work-up and treatment Prognosis guarded. may need intubation and thoracentesis if family wants to be aggressive. Critical thinking and decision making. Piedad Corea MD Aug 29, 2017 12:33
--- NOTE | 2017-08-29 12:49 | RADRPT ---
EXAM DATE/TIME: 08/29/2017 12:12 [facility] COMPARISON: CHEST SINGLE AP, August 28, 2017, 3:00. INDICATIONS : Pneumonia. MEDICAL HISTORY : Hypertension. Diverticulitis. arthritis, renal failure SURGICAL HISTORY : Appendectomy. Hysterectomy. colon resection ENCOUNTER: Initial ACUITY: 2 weeks PAIN SCORE: Non-responsive. LOCATION: Bilateral chest FINDINGS: A single view of the chest demonstrates left central line tip in superior vena cava. Bilateral mostly basilar airspace disease and pleural effusions. Cardiomegaly. No pneumothorax. CONCLUSION: 1. Left central line in superior vena cava. Bilateral effusions and basilar airspace disease similar to August 28. No pneumothorax. Esau Martell MD on August 29, 2017 at 12:46 Board Certified Radiologist. This report was verified electronically.
--- NOTE | 2017-08-29 12:50 | RADRPT ---
EXAM DATE/TIME: 08/29/2017 12:15 [facility] COMPARISON: ABDOMEN KUB ONLY, August 21, 2017, 3:35. INDICATIONS : Perforation or ileus MEDICAL HISTORY : Hypertension. Diverticulitis. arthritis, renal failure SURGICAL HISTORY : Appendectomy. Hysterectomy. colon resection ENCOUNTER: Initial ACUITY: 2 weeks PAIN SCORE: Non-responsive. LOCATION: Bilateral abdomen FINDINGS: Supine view of the abdomen was performed. The abdominal bowel gas pattern is normal. No abnormal ma sses, calcifications, or organomegaly is seen. The osseous structures are unremarkable. Minimal bib asilar parenchymal changes worse on the right CONCLUSION: Negative for free air or sniffing gases distention. Minimal bibasilar parenchymal changes, worse on the right Juan J Joel MD FACR on August 29, 2017 at 12:48 Board Certified Radiologist. This report was verified electronically.
[2017-08-29] MEDS ORDERED: methylPREDNISolone SOD SUCC 125 MG/2 ML VIAL IV ONE (13:45)
[2017-08-29] MEDS ORDERED: TERBUTALINE INJ 1 MG/ML AMP SQ PRN (14:00)
[2017-08-29] MEDS ORDERED: PHENYLEPHRINE 40 MG in D5W 500 ML IV PRN (14:00)
--- NOTE | 2017-08-29 14:38 | HHI.HCPN ---
Reason for visit a. To assist with evaluation and management of symptoms including: dyspnea, weakness. b. To assist medical decision maker(s) with: better understanding of current medical conditions; weighing benefits/burdens of medical treatment options; making medical treatment decisions. . Subjective/Interval History Patient seen and examined in ICU. DaughterNicole and son, Jl at bedside. Discussed with nursing staff, Dr. Essie Corea, Dr. Dilip Corea and Dr. Guadalupe. Afebrile. Patient is tachypneic (RR 60), on BiPAP. Heart rate 48, systolic BP 78. WBC 13.9, hemoglobin 7.5, platelet 480. Albumin 2.0. Blood transfusion ordered. Repeat blood culture pending. Chest xray bilateral effusions and bilateral airspace disease, no pneumothorax. Abdominal xray - negative free air or gaseous distention, minimal bibasilar parenchymal changes, worse on the right. Dr. Corea and I spoke with patient's son and daughter at bedside, medical update provided. Reviewed likely need for intubation, thoracentesis.Family desires continued aggressive care including FULL CODE, intubation included even if this means she will require trach and PEG. . Family/friend interactions See interval note. . Advance Directives Living Will: Never completed Health Care Surrogate: Never completed Durable Power of Security Rep: Never completed Advance Directive Specifics Health Care Surrogate(s): Living Will copy obtained. According to her Living Will she names daughterSilvia as primary HCS and son Jl Olson as alternate HCS. . Documented care wishes: Standard Living Will on chart. . Objective Vital Signs Date Time Temp Pulse Resp B/P (MAP) Pulse Ox O2 Delivery O2 Flow Rate FiO2 08/29/17 11:11 0 75 08/29/17 07:50 0 75 08/29/17 06:00 62 08/29/17 04:00 97.5 76 26 101/53 (69) 92 08/29/17 04:00 65 08/29/17 02:00 62 08/29/17 01:50 93 70 08/29/17 00:00 82 08/29/17 00:00 72 28 118/66 (83) 91 08/28/17 22:09 94 70 08/28/17 22:00 82 08/28/17 20:36 70 106/65 08/28/17 20:35 94 70 08/28/17 20:28 92 Nasal Cannula 5.00 08/28/17 20:00 97.4 76 36 94 08/28/17 20:00 83 08/28/17 18:00 75 08/28/17 16:00 71 08/28/17 16:00 97.2 71 35 90/60 (70) 08/28/17 15:34 72 104/64 Intake & Output 08/29/17 08/29/17 07:00 19:00 Intake Total 400 ml 25 ml Output Total 1000 ml Balance -600 ml 25 ml Intake Oral 400 ml Blood Product IV Normal Saline Flush 25 ml Output Urine Total 1000 ml # Bowel Movements 1 Physical Exam CONSTITUTIONAL/GENERAL: This is a well nourished patient, in no apparent distress. TUBES/LINES/DRAINS: BiPAP, Central line, PIV, Doe, SCDs. SKIN: No jaundice, rashes, or lesions. Ecchymoses on upper extremities. Skin temperature appropriate. Not diaphoretic. CARDIOVASCULAR: Regular rate and rhythm, + murmur. RESPIRATORY/CHEST: Tachypneic on BiPAP. Labored respirations. GASTROINTESTINAL: Abdomen soft, non distended. + bowel sounds. GENITOURINARY: Without palpable bladder distension. Doe catheter in place. MUSCULOSKELETAL: Extremities with edema. Extremities cool to touch. no mottling or clubbing. NEUROLOGICAL: Awake and alert, soft voice, follows commands, answers questions appropriately. PSYCHIATRIC: denies anxiety. . Diagnostic Tests Laboratory Laboratory Tests Test 08/26/17 20:00 08/27/17 04:00 08/27/17 15:19 08/28/17 04:00 Potassium Level 4.0 MEQ/L (3.5-5.1) 3.7 MEQ/L (3.5-5.1) 3.8 MEQ/L (3.5-5.1) 3.7 MEQ/L (3.5-5.1) White Blood Count 17.2 TH/MM3 (4.0-11.0) 16.8 TH/MM3 (4.0-11.0) Red Blood Count 2.43 MIL/MM3 (4.00-5.30) 2.37 MIL/MM3 (4.00-5.30) Hemoglobin 7.6 GM/DL (11.6-15.3) 7.4 GM/DL (11.6-15.3) Hematocrit 22.6 % (35.0-46.0) 22.3 % (35.0-46.0) Mean Corpuscular Volume 93.1 FL (80.0-100.0) 94.1 FL (80.0-100.0) Mean Corpuscular Hemoglobin 31.2 PG (27.0-34.0) 31.2 PG (27.0-34.0) Mean Corpuscular Hemoglobin Concent 33.5 % (32.0-36.0) 33.1 % (32.0-36.0) Red Cell Distribution Width 13.7 % (11.6-17.2) 14.0 % (11.6-17.2) Platelet Count 426 TH/MM3 (150-450) 467 TH/MM3 (150-450) Mean Platelet Volume 9.1 FL (7.0-11.0) 9.3 FL (7.0-11.0) CBC Comment AUTO DIFF AUTO DIFF Differential Total Cells Counted 100 100 Neutrophils % (Manual) 78 % (16-70) 91 % (16-70) Band Neutrophils % 15 % (0-6) Lymphocytes % 3 % (9-44) 4 % (9-44) Monocytes % 3 % (0-8) 3 % (0-8) Neutrophils # (Manual) 16.2 TH/MM3 (1.8-7.7) 15.6 TH/MM3 (1.8-7.7) Metamyelocytes 1 % (0-1) Nucleated Red Blood Cells 4 /100 WBC (0-0) 9 /100 WBC (0-0) Differential Comment FINAL DIFF MANUAL FINAL DIFF MANUAL Platelet Estimate NORMAL (NORMAL) HIGH (NORMAL) Platelet Morphology Comment ENLARGED (NORMAL) NORMAL (NORMAL) Activated Partial Thromboplast Time 49.5 SEC (24.3-30.1) 55.1 SEC (24.3-30.1) Blood Urea Nitrogen 24 MG/DL (7-18) 24 MG/DL (7-18) 28 MG/DL (7-18) Creatinine 0.64 MG/DL (0.50-1.00) 0.73 MG/DL (0.50-1.00) 0.78 MG/DL (0.50-1.00) Random Glucose 143 MG/DL (74-106) 143 MG/DL (74-106) 117 MG/DL (74-106) Calcium Level 7.7 MG/DL (8.5-10.1) 7.6 MG/DL (8.5-10.1) 7.6 MG/DL (8.5-10.1) Phosphorus Level 2.0 MG/DL (2.5-4.9) 2.9 MG/DL (2.5-4.9) Magnesium Level 1.7 MG/DL (1.5-2.5) 2.1 MG/DL (1.5-2.5) Sodium Level 149 MEQ/L (136-145) 147 MEQ/L (136-145) 150 MEQ/L (136-145) Chloride Level 112 MEQ/L (98-107) 111 MEQ/L (98-107) 113 MEQ/L (98-107) Carbon Dioxide Level 29.8 MEQ/L (21.0-32.0) 27.9 MEQ/L (21.0-32.0) 27.4 MEQ/L (21.0-32.0) Anion Gap 7 MEQ/L (5-15) 8 MEQ/L (5-15) 10 MEQ/L (5-15) Estimat Glomerular Filtration Rate 89 ML/MIN (>89) 76 ML/MIN (>89) 71 ML/MIN (>89) Total Protein 5.9 GM/DL (6.4-8.2) 5.6 GM/DL (6.4-8.2) Albumin 2.0 GM/DL (3.4-5.0) 2.0 GM/DL (3.4-5.0) Alkaline Phosphatase 47 U/L (45-117) 45 U/L (45-117) Aspartate Amino Transf (AST/SGOT) 13 U/L (15-37) 14 U/L (15-37) Alanine Aminotransferase (ALT/SGPT) 16 U/L (10-53) 13 U/L (10-53) Total Bilirubin 0.6 MG/DL (0.2-1.0) 0.6 MG/DL (0.2-1.0) Neutrophils (%) (Auto) 78.9 % (16.0-70.0) Lymphocytes (%) (Auto) 14.0 % (9.0-44.0) Monocytes (%) (Auto) 6.5 % (0.0-8.0) Eosinophils (%) (Auto) 0.2 % (0.0-4.0) Basophils (%) (Auto) 0.4 % (0.0-2.0) Neutrophils # (Auto) 13.3 TH/MM3 (1.8-7.7) Lymphocytes # (Auto) 2.4 TH/MM3 (1.0-4.8) Monocytes # (Auto) 1.1 TH/MM3 (0-0.9) Eosinophils # (Auto) 0.0 TH/MM3 (0-0.4) Basophils # (Auto) 0.1 TH/MM3 (0-0.2) Myelocytes 2 % (0-0) Test 08/29/17 04:00 08/29/17 06:35 08/29/17 11:45 08/29/17 13:15 White Blood Count 13.9 TH/MM3 (4.0-11.0) Red Blood Count 2.37 MIL/MM3 (4.00-5.30) Hemoglobin 7.5 GM/DL (11.6-15.3) Hematocrit 22.6 % (35.0-46.0) Mean Corpuscular Volume 95.4 FL (80.0-100.0) Mean Corpuscular Hemoglobin 31.4 PG (27.0-34.0) Mean Corpuscular Hemoglobin Concent 32.9 % (32.0-36.0) Red Cell Distribution Width 13.8 % (11.6-17.2) Platelet Count 480 TH/MM3 (150-450) Mean Platelet Volume 9.2 FL (7.0-11.0) Neutrophils (%) (Auto) 78.7 % (16.0-70.0) Lymphocytes (%) (Auto) 13.3 % (9.0-44.0) Monocytes (%) (Auto) 7.3 % (0.0-8.0) Eosinophils (%) (Auto) 0.3 % (0.0-4.0) Basophils (%) (Auto) 0.4 % (0.0-2.0) Neutrophils # (Auto) 10.9 TH/MM3 (1.8-7.7) Lymphocytes # (Auto) 1.8 TH/MM3 (1.0-4.8) Monocytes # (Auto) 1.0 TH/MM3 (0-0.9) Eosinophils # (Auto) 0.0 TH/MM3 (0-0.4) Basophils # (Auto) 0.1 TH/MM3 (0-0.2) CBC Comment AUTO DIFF Differential Total Cells Counted 100 Neutrophils % (Manual) 84 % (16-70) Band Neutrophils % 1 % (0-6) Lymphocytes % 10 % (9-44) Monocytes % 4 % (0-8) Neutrophils # (Manual) 12.0 TH/MM3 (1.8-7.7) Myelocytes 1 % (0-0) Nucleated Red Blood Cells 7 /100 WBC (0-0) Differential Comment FINAL DIFF MANUAL Platelet Estimate HIGH (NORMAL) Platelet Morphology Comment ENLARGED (NORMAL) Polychromasia 2.5 % (0.0-1.9) Activated Partial Thromboplast Time 70.0 SEC (24.3-30.1) Blood Urea Nitrogen 32 MG/DL (7-18) Creatinine 0.82 MG/DL (0.50-1.00) Random Glucose 114 MG/DL (74-106) Total Protein 5.4 GM/DL (6.4-8.2) Albumin 1.9 GM/DL (3.4-5.0) Calcium Level 7.6 MG/DL (8.5-10.1) Phosphorus Level 2.7 MG/DL (2.5-4.9) Magnesium Level 1.9 MG/DL (1.5-2.5) Alkaline Phosphatase 57 U/L (45-117) Aspartate Amino Transf (AST/SGOT) 34 U/L (15-37) Alanine Aminotransferase (ALT/SGPT) 21 U/L (10-53) Total Bilirubin 0.6 MG/DL (0.2-1.0) Sodium Level 146 MEQ/L (136-145) Potassium Level 3.2 MEQ/L (3.5-5.1) Chloride Level 111 MEQ/L (98-107) Carbon Dioxide Level 28.0 MEQ/L (21.0-32.0) Anion Gap 7 MEQ/L (5-15) Estimat Glomerular Filtration Rate 67 ML/MIN (>89) Blood Gas Puncture Site RT BRACHIAL RT BRACHIAL Blood Gas Patient Temperature 98.6 98.6 Blood Gas HCO3 23 mmol/L (22-26) 23 mmol/L (22-26) Blood Gas Base Excess 0.7 mmol/L (-2-2) 0.3 mmol/L (-2-2) Blood Gas Oxygen Saturation 97 % (90-100) 93 % (90-100) Arterial Blood pH 7.52 (7.380-7.420) 7.55 (7.380-7.420) Arterial Blood Partial Pressure CO2 29 mmHg (38-42) 26 mmHg (38-42) Arterial Blood Partial Pressure O2 152 mmHg (61-120) 80 mmHg (61-120) Arterial Blood Oxygen Content 10.8 Vol % (12.0-20.0) 9.7 Vol % (12.0-20.0) Arterial Blood Carboxyhemoglobin 0.8 % (0-4) 0.9 % (0-4) Arterial Blood Methemoglobin 1.1 % (0-2) 1.3 % (0-2) Blood Gas Hemoglobin 7.7 G/DL (12.0-16.0) 7.3 G/DL (12.0-16.0) Oxygen Delivery Device BIPAP BIPAP Blood Gas Ventilator Setting IPAP 12/EPAP 5 IPAP14/EPAP5 Blood Gas Inspired Oxygen 100 % 75 % Lactic Acid Level 2.7 mmol/L (0.4-2.0) Result Diagram: 08/29/17 0400 08/29/17 0400 Microbiology Microbiology Date/Time Source Procedure Growth Status 08/29/17 13:15 Blood Peripheral Aerobic Blood Culture Pending Received 08/29/17 13:15 Blood Peripheral Anaerobic Blood Culture Pending Received Imaging Last Impressions Chest X-Ray 08/29/17 0000 Signed Impressions: Service Date/Time: Tuesday, August 29, 2017 12:12 - CONCLUSION: 1. Left central line in superior vena cava. Bilateral effusions and basilar airspace disease similar to August 28. No pneumothorax. Esau Martell MD Abdomen/Pelvis CT 08/23/17 1426 Signed Impressions: Service Date/Time: Wednesday, August 23, 2017 22:50 - CONCLUSION: 1. Suspected mild diffuse colitis, nonspecific but presumably infectious or inflammatory. No obstruction or abscess. 2. Trace ascites about the same there is worsening anasarca and worsening pleural effusions and consolidation of both lung bases. 3. Tiny nonobstructing stone of the right kidney and a generally benign appearing cyst lower pole the left kidney. No evidence of obstructive uropathy or other etiology for acute renal failure. 4. Atherosclerotic aorta. No aneurysm. Adan Nunes MD Upper Extremity Ultrasound 08/23/17 0000 Signed Impressions: Service Date/Time: Wednesday, August 23, 2017 16:25 - CONCLUSION: Bilateral upper extremity DVT as described above. Samuel Peralta MD Lower Extremity Ultrasound 08/23/17 0000 Signed Impressions: Service Date/Time: Wednesday, August 23, 2017 15:50 - CONCLUSION: 1. There is incomplete compression of the left common femoral vein raising suspicion for nonocclusive thrombus. This vessel, however, still demonstrates normal Doppler blood flow and respiratory variability. 2. The remaining veins of the left lower extremity are patent and the entire right lower extremity is patent without thrombus. Adan Machuca MD Abdomen X-Ray 08/21/17 0600 Signed Impressions: Service Date/Time: July 03:35 - CONCLUSION: The bowel gas pattern remains fairly unremarkable. Jl Stanley MD Lumbar Puncture Fluoroscopy 08/15/17 0000 Signed Impressions: Service Date/Time: Tuesday, August 15, 2017 15:36 - CONCLUSION: 1. Uncomplicated fluoroscopically guided lumbar puncture. 2. Please note, requested opening pressures were not obtained due to technical difficulties. Shashi Moreno MD Brain MRI 08/15/17 0000 Signed Impressions: Service Date/Time: Tuesday, August 15, 2017 16:57 - CONCLUSION: 1. 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 2. Mild stenosis in the upper cervical spine as above. Esau Martell MD Abdomen Ultrasound 08/15/17 0000 Signed Impressions: Service Date/Time: Tuesday, August 15, 2017 10:40 - CONCLUSION: 1. No abnormality is identified to explain the clinical symptoms. There is no hydronephrosis. 2. The liver is normal in size and echotexture. Adan Machuca MD Head CT 08/14/17 0112 Signed Impressions: Service Date/Time: July 22:54 - CONCLUSION: Unremarkable study. K. Yovani Villagomez MD Procedures * 08/25/17 - extubated. * 08/15/17-lumbar puncture by IR * 08/15/17 - right IJ central line, intubated. . Assessment and Plan Disease Oriented Problem List: (1) Acute respiratory failure (2) Septic shock (3) Tachycardia (4) UTI (urinary tract infection) (5) Alcohol abuse (6) Atrial fibrillation Comment: On Cardizem drip Symptom Scale: (1) Pain 0-10 Scale: 0 (2) Dyspnea 0-10 Scale: 0 (3) Weakness 0-10 Scale: 0 Comment: continue PT/ OT Pertinent Non-Medical Issues Psychosocial: . Lives with Nicole flores. Has 3 daughters and 1 son. Spiritual: Holiness david. Legal: According to her Living Will she names daughterSilvia as primary HCS and son Jl Olson as alternate HCS. Ethical issues impacting care: No known concerns at this time. . Important Contacts * Silvia "Diane Luis, daughter/ HCS: [phone] * Jl Olson, son/ alternate HCS: or [phone] * Jessica, daughter: [phone] * Chelsea, daughter: [phone] . Prognosis Ms. Olson is an 82 year old admitted with rhabdomyolysis, septic shock uncertain etiology, dehydration, renal failure. At this point we will need additional information to determine overall prognosis. Given her advanced age, she remain high risk for further setbacks or decline. . Code Status: Full Code Plan * Patient appears to have some insight and judgment regarding her current health condition, recommend shared medical decision making as her mentation seems to wax and wane. According to her Living Will she names Silvia flores as primary HCS and son Jl Olson as alternate HCS. * FULL CODE. * Dr. Corea and I spoke with patient's son and daughter at bedside, medical update provided. Reviewed likely need for intubation, thoracentesis.Family desires continued aggressive care including FULL CODE, intubation included even if this means she will require trach and PEG. * SYMPTOMS: Dyspnea: Medically extubated 08/25/17 am. Denies SOB on BiPAP. Pain: potential sources include intubation, chronic neck pain, infection, etc. Denies pain. Anxiety: Denies. On Precedex. Weakness: Continue PT/OT. No new medication recommendations at this time. * Palliative care will continue to throughout hospital course to assist with clarification of goals. . Attestation To help prompt me to consider important information that might be impacting today's encounter and assessment, information from prior notes written by myself or my colleagues may have been "brought forward" into today's note. My signature on this note, however, is an attestation that I personally performed the exam, history, and/or decision-making noted today, and, unless otherwise indicated, the interactions with patient, family, and staff as well as the review of records all occurred today. I also attest that the listed assessment and stated plan reflect my best clinical judgment today based on the combination of historical information, prior notes, and today's exam/ interactions. When time spent is documented, it refers only to time spent today by the signer, or if indicated, combined time spent today by collaborating physician/nurse practitioner. Vashti Riley Aug 29, 2017 14:38
--- NOTE | 2017-08-29 14:53 | HHI.CCPN ---
Subjective Remarks/Hospital Course Patient is an 82-year-old female with past medical history of irritable bowel syndrome, hypertension, arthritis, diverticulitis who presented to the [facility] ED after she was found lying on her bed with urine and feces all around her bed. In addition, the patient was altered and obtunded. Most of the history was obtained from reviewing the medical records. Her laboratory data showed acute renal failure with BUN of 52, creatinine 3.39 and lactic acidosis with a lactic acid level of 6.3. In addition, the patient was in rhabdomyolysis with elevated CK at 3855. She was admitted under the hospitalist service; however, a [facility] was called due to worsening mental status, hypertension and hypoxemia. She [place] [facility] critical care medicine was consulted for critical care management. When seen, the patient was lethargic, not following any commands, hypotensive. She was subsequently intubated by myself and a right internal jugular central line was placed for hemodynamic monitoring. ABG post intubation showed a pH of 7.31, co2 of 30, pA02 of 117, bicarbonate 15 and saturation of 96% on PRVC rate of 14, tidal volume 350 with IT:1, PEEP 5 and FIO2 of 100%. She was given two liter boluses of normal saline and placed on a bicarbonate drip. Her lactic acid level is trending down and is currently 3.4 from 6.3 on arrival. In addition, her renal function is improving with IV hydration. Her creatinine level is 2.29 from 3.39. Due to hypotension, Levophed was started. A CT scan of the brain in the emergency department was unremarkable. Her initial chest x-ray showed minimal basilar atelectasis, no effusions or pneumothoraces. According to the patient's family, the patient has been intermittently binge drinking. In addition, they report her having diarrhea for a few days. She had a low-grade fever with a temperature of 100.2 last night. 08/16 Patient is sedated with Fentanyl drip intubated and on Levophed 5 mics. On Bicarb drip. MRI brain yesterday showed small lacunar infarcts in left cerebellar hemisphere and right parietal lobe. Lp showed clear CSF, 17 wbc. Afebrile.Renal function worse today with Cr: 2.64 from 2.29 08/17 Patient remains sedated and intubated. On Bicarb drip. Off Levophed renal function slightly worse today with Cr: 2.82 from 2.64 and UOP: 550 ml in 24 hrs 08/18 Patient bit through ETT overnight s/p new ETT placement using tube exchanger. Sedated with Diprivan and Fentanyl. Afebrile. Renal function is improving with Cr: 1.97 from 2.82. On Bicarb drip. Tube feeds held for possible colonoscopy today. 08/19: Remains sedated, orally intubated on mechanical ventilation. Colonoscopy done yesterday revealed ischemic colitis. Has been evaluated by general surgery. Patient went into A. fib with RVR last night and was started on a Cardizem drip. On Levophed for hypotension 08/20: Remains sedated, orally intubated on mechanical ventilation. Started on TPN on 08/19. Cardizem drip turned off this morning. Received 1 dose of digoxin yesterday. 08/21: Remains sedated, orally intubated on mechanical ventilation. On TPN. Ordered Precedex as well as digoxin daily. Starting trophic feeds today. 08/22 Patient remains intubated on Precedex and Fentanyl infusion for sedation. afebrile. 08/23 WBC up to 17.7. Temp max 102.2. Blood culture sent today peripherally ( labelled as line draw initially but was not drawn from a line, lab notified to re-label). Tolerating trophic feeds. Awake and on CPAP 10/5 with RSBI 50s, became labored and desat with 5/5. Denies abdominal pain. Subjective: 08/24: Tmax 102.7 overnight. Currently 100.6. Noted yeast growing from blood culture 08/21. Remains in atrial fibrillation. Potassium currently been replaced. Currently only has once peripheral IV access. Will need central line placed later this afternoon. 08/25 Patient is awake and alert on CPAP trials. T: 101.1 last night. On Heparin and Bumex drips 08/26 Patient was extubated yesterday on 3L oxygen. She went into Afib with RVR last night given Labetalol. Afebrile. 08/27: Patient is slightly tachypneic, but maintaining O2 sat. chest x-ray shows at least moderate sized pleural effusions. Start Lasix 40 mg IV every 12 [address] Doe catheter for accurate intake output and also appears that patient has urinary retention. Remains in atrial fibrillation with RVR, on Cardizem at 15 mg per hour. 08/28: On BiPAP overnight. Currently on 4 L nasal cannula. Fluctuating neurologic status consistent with delirium. Remains on Cardizem drip at 5 mg per hour for A. fib with RVR. Diuresing well with Lasix. 08/29: Respiratory status borderline with tachypnea. Requiring intermittent BiPAP. Started on Precedex for anxiety. Dropped blood pressure. 1 unit PRBCs ordered. Solu-Medrol 125 mg IV 1 dose ordered as well. Scheduled for CT- guided thoracentesis for right side today. Heparin GTT held for thoracentesis. Chest x-ray with bilateral pleural effusions despite diuresis. Objective Vital Signs Date Time Temp Pulse Resp B/P (MAP) Pulse Ox O2 Delivery O2 Flow Rate FiO2 08/29/17 11:11 0 75 08/29/17 06:00 62 08/29/17 04:00 97.5 26 101/53 (69) 08/28/17 20:28 Nasal Cannula 5.00 Intake and Output 08/29/17 08/29/17 08/30/17 08:00 16:00 00:00 Intake Total 400 ml 25 ml Output Total 1000 ml Balance -600 ml 25 ml Result Diagram: 08/29/17 0400 08/29/17 0400 Other Results Laboratory Tests Test 08/29/17 06:35 08/29/17 11:45 Blood Gas Puncture Site RT BRACHIAL RT BRACHIAL Blood Gas Patient Temperature 98.6 98.6 Blood Gas HCO3 23 mmol/L (22-26) 23 mmol/L (22-26) Blood Gas Base Excess 0.7 mmol/L (-2-2) 0.3 mmol/L (-2-2) Blood Gas Oxygen Saturation 97 % (90-100) 93 % (90-100) Arterial Blood pH 7.52 (7.380-7.420) 7.55 (7.380-7.420) Arterial Blood Partial Pressure CO2 29 mmHg (38-42) 26 mmHg (38-42) Arterial Blood Partial Pressure O2 152 mmHg (61-120) 80 mmHg (61-120) Arterial Blood Oxygen Content 10.8 Vol % (12.0-20.0) 9.7 Vol % (12.0-20.0) Arterial Blood Carboxyhemoglobin 0.8 % (0-4) 0.9 % (0-4) Arterial Blood Methemoglobin 1.1 % (0-2) 1.3 % (0-2) Blood Gas Hemoglobin 7.7 G/DL (12.0-16.0) 7.3 G/DL (12.0-16.0) Oxygen Delivery Device BIPAP BIPAP Blood Gas Ventilator Setting IPAP 12/EPAP 5 IPAP14/EPAP5 Blood Gas Inspired Oxygen 100 % 75 % Imaging Last Impressions Chest X-Ray 08/25/17 0600 Signed Impressions: Service Date/Time: Friday, August 25, 2017 03:26 - CONCLUSION: 1. Stable tubes and lines, as above. 2. Stable small bilateral pleural effusions and associated bibasilar airspace disease. Douglas Jean MD Abdomen/Pelvis CT 08/23/17 1426 Signed Impressions: Service Date/Time: Wednesday, August 23, 2017 22:50 - CONCLUSION: 1. Suspected mild diffuse colitis, nonspecific but presumably infectious or inflammatory. No obstruction or abscess. 2. Trace ascites about the same there is worsening anasarca and worsening pleural effusions and consolidation of both lung bases. 3. Tiny nonobstructing stone of the right kidney and a generally benign appearing cyst lower pole the left kidney. No evidence of obstructive uropathy or other etiology for acute renal failure. 4. Atherosclerotic aorta. No aneurysm. Adan Nunes MD Upper Extremity Ultrasound 08/23/17 0000 Signed Impressions: Service Date/Time: Wednesday, August 23, 2017 16:25 - CONCLUSION: Bilateral upper extremity DVT as described above. Samuel Peralta MD Lower Extremity Ultrasound 08/23/17 0000 Signed Impressions: Service Date/Time: Wednesday, August 23, 2017 15:50 - CONCLUSION: 1. There is incomplete compression of the left common femoral vein raising suspicion for nonocclusive thrombus. This vessel, however, still demonstrates normal Doppler blood flow and respiratory variability. 2. The remaining veins of the left lower extremity are patent and the entire right lower extremity is patent without thrombus. Adan Machuca MD Abdomen X-Ray 08/21/17 0600 Signed Impressions: Service Date/Time: July 03:35 - CONCLUSION: The bowel gas pattern remains fairly unremarkable. Jl Stanley MD Lumbar Puncture Fluoroscopy 08/15/17 0000 Signed Impressions: Service Date/Time: Tuesday, August 15, 2017 15:36 - CONCLUSION: 1. Uncomplicated fluoroscopically guided lumbar puncture. 2. Please note, requested opening pressures were not obtained due to technical difficulties. Shashi Moreno MD Brain MRI 08/15/17 0000 Signed Impressions: Service Date/Time: Tuesday, August 15, 2017 16:57 - CONCLUSION: 1. 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 2. Mild stenosis in the upper cervical spine as above. Esau Martell MD Abdomen Ultrasound 08/15/17 0000 Signed Impressions: Service Date/Time: Tuesday, August 15, 2017 10:40 - CONCLUSION: 1. No abnormality is identified to explain the clinical symptoms. There is no hydronephrosis. 2. The liver is normal in size and echotexture. Adan Machuca MD Head CT 08/14/172231 Signed Impressions: Service Date/Time: July 22:54 - CONCLUSION: Unremarkable study. KStepan Villagomez MD Objective Remarks GENERAL: 82-year-old female currently lying in bed in bed, mildly tachypneic SKIN: Warm and dry. Generalized Anasarca HEAD: Normocephalic. EYES: Pupils equal and reactive bilaterally about 3 mm. Pallor present, No scleral icterus. No injection or drainage. NECK: Supple, trachea midline. No JVD or lymphadenopathy. Orally intubated. Right IJ site without erythema CARDIOVASCULAR: S1-S2 irregularly irregular. No murmurs appreciated RESPIRATORY: On BiPAP with full facemask, diminished breath sounds bilateral bases. No wheezing appreciated. GASTROINTESTINAL: Abdomen soft, non-tender, minimally distended. Bowel sounds hypoactive but present. No guarding or rigidity MUSCULOSKELETAL: bilateral lower extremity pitting edema. 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 Precedex gtt ordered for agitation/ anxiety while on BIPAP Oxycodone 5 mg every 6 hours PRN UDS is negative 08/15: CT brain negative for acute intracranial process MRI brain: Small lacunar infarcts in left cerebellar hemisphere and right parietal lobe EEG: Severe encephalopathy Continue thiamine, multivitamin and folic acid daily. Repeat EEG 08/21.- generalized slowing, no epileptiform features Neuro is following- Dr. Danielle LP showed clear CSF, 17 WBC, TP:45.2 Previously on chlordiazepoxide 25 mg 3 times a day Pulm: Acute respiratory failure Bilateral pleural effusions Continue with intermittent BIPAP/ oxygen keep sat >92% Bronchodilators( d/c Albuterol due to tachycardia and place on Atrovent nebs) Incentive spirometry Q1 he while awake. Starting IV Lasix as below Scheduled for right-sided thoracentesis with IR for 08/[address] guidance Solu-Medrol 125 mg IV 1 dose now in the office for respiratory status with possible underlying COPD. CV: Atrial fibrillation, with RVR Systolic heart failure unknown if acute or chronic Fluid overload Hypotension Monitor HR and BP keep MAP>65mmHg. Lopressor 50mg Q12 -hold for hypotension, On Digoxin 0.125 mg daily. Digoxin level 0.8 08/25 Cardizem infusion off. Lázaro-Synephrine for pressor support started on 08/29 for hypotension. Troponin is trended down. Echo showed EF 45-50% Continue aspirin 81 mg by mouth daily/home medication IV Lasix 40 mg every 12, continue potassium replacement Renal/FEN/: Acute kidney injury, resolved Lactic acidemia, resolved Rhabdomyolysis resolved Hypernatremia Hypokalemia Hypophosphatemia Right-sided nephrolithiasis/nonobstructing Left renal cyst Monitor renal function, intake and output and avoid nephrotoxins. Renal has followed-Dr. Figueroa, US abdomen: No hydronephrosis CT Abd/pelvis revealed nonobstructing right-sided nephrolithiasis and left renal cyst. Being diuresed with Lasix to mobilize fluid GI: Ischemic colitis Severe acute on Chronic protein energy malnutrition AST elevation secondary to alcohol use Internal and external hemorrhoids PO diet per speech advance as ligia. Discussed with surgery On famotidine 20 mg twice a day for GI prophylaxis. Monitor LFT's( resolved) US liver: No abnormalities identified GI is following- colonoscopy showed diffuse colitis in the sigmoid colon and descending colon; Necrotic, dusky appearing mucosa. Consistent with severe ischemic colitis. General surgery, Dr. Guadalupe -plan to treat conservatively unless patient worsens clinically. Repeat CT abdomen and pelvis 08/23 mild diffuse colitis ID: Septic shock resolved UTI Ischemic colitis Fungemia Abx per ID - Dr. Davis/ Anmol. Cefepime/ flagyl switched to Zyvox/ meropenem on 08/29. Continue IV Micafungin/ diflucan for septic thrombophlebitis Seen by Opth no evidence of endophthalmitis Pertinent cultures 08/23 - blood culture by line (actually peripheral) - coag neg staph 08/21 - blood culture - no growth 08/21 - sputum - no growth 08/21 - - no growth 08/21 - blood culture - Yeast Felipa parapsilosis 08/15 - CSF - negative 08/15 - sputum - no growth 08/14 - blood cultures and UA - no growth C-diff PCR is negative, stool studies negative s/p LP showed clear CSF, 17 WBC, TP:45.2, HSV DNA PCR neg Endo: Hyperglycemia of critical illness/steroid SSI with Novolin R medium with Accu-Chek every 4 hours for glycemic control. TSH: 1.15. Heme: Leukocytosis Normocytic anemia B/L UE DVT Possible left common femoral vein DVT Left cephalic/basilic to professional and right superficial cephalic thrombus Monitor CBC, coags- on Heparin drip (held for thoracentesis, will resume following procedure. Iron sulfate 300 mg twice a day. 1 unit PRBCs ordered to be transfused on 08/29 for Hgb 7.5 with symptomatic anemia , hypotension. GI prophylaxis with famotidine and DVT prophylaxis with SCDs, Heparin drip Lines: LIJ central line placed 08/24 Right IJ Central line removed 08/22. , Right radial Art line placed 08/15, has been removed 08/18 Discuss with daughter at bedside and all questions answered. Explained that patient may possibly need endotracheal intubation if respiratory status declines despite BiPAP. Condition critical Time spent on critical care excluding procedures 40 minutes Mikal Corea MD Aug 29, 2017 14:53
[2017-08-29] MEDS: LINEZOLID 600 MG PREMIX 300 ML IV SCH (15:41)
[2017-08-29 16:09] LABS: TOTAL PROTEIN,PLEURAL FLUID 1.1 GM/DL
--- NOTE | 2017-08-29 16:25 | RADRPT ---
EXAM DATE/TIME: 08/29/2017 14:48 INDICATIONS : Left pleural effusions. DEVICE(S): 1.) 6 Fr [id number] FLUID: Total volume of 500 cc of clear, yellow fluid was removed. Fluid was sent for laboratory ordered studies. MEDICAL HISTORY : Hypertension. SURGICAL HISTORY : Appendectomy. Hysterectomy. Breast augmentation. ENCOUNTER: Initial ACUITY: 1 day PAIN SCORE: 0/10 LOCATION: Left PROCEDURE: 1. Eergent CT guided guided left thoracentesis. 2. Conscious sedation with continuous EKG and oximetry monitoring. 3. EKG and oximetry remained stable throughout the procedure. The site was prepped in sterile fashion. Full sterile technique was used, including cap, mask, steri le gloves and gown and a large sterile sheet. Hand hygiene and 2% chlorhexidine and/or betadine/alco hol prep was utilized per protocol for cutaneous antisepsis. The skin and subcutaneous tissues were infiltrated with local anesthetic solution. Using automated exposure control and adjustment of the mA and/or kV according to patient size, radiation dose was kept as low as reasonably achievable to obta in optimal diagnostic quality images. DICOM format image data is available electronically for review and comparison. With the patient supine on the CT table, creative writing teacher images were obtained through the chest demonstrating t he left sided pleural effusion. Dermatotomy was made and the prescribed catheter was advanced into t he pleural fluid. The pleural fluid as above was removed from the hemithorax. Post procedural scan show reduction in the amount of fluid with no evidence of pneumothorax. Significant consolidative pr ocess in the left base. The patient tolerated the procedure well and there were no complications. EKG and oximetry remained s table throughout the procedure. The patient was sent to recovery in stable condition. CONCLUSION: Uncomplicated CT-guided thoracentesis. Fluid was sent for studies. Juan J Joel MD FACR on August 29, 2017 at 16:23 Board Certified Radiologist. This report was verified electronically.
--- NOTE | 2017-08-29 16:27 | RADRPT ---
EXAM DATE/TIME: 08/29/2017 14:48 [facility] COMPARISON: No previous studies available for comparison. INDICATIONS : Bilateral pleural effusions. RADIATION DOSE: 9.50 CTDIvol (mGy) MEDICAL HISTORY : Hypertension. SURGICAL HISTORY : Appendectomy. Hysterectomy. Breast augmentation ENCOUNTER: Initial ACUITY: 1 day PAIN SCALE: 0/10 LOCATION: Bilateral chest TECHNIQUE: Volumetric scanning of the chest was performed. Using automated exposure control and adjustment of t he mA and/or kV according to patient size, radiation dose was kept as low as reasonably achievable to obtain optimal diagnostic quality images. DICOM format image data is available electronically for r eview and comparison. Follow-up recommendations for detected pulmonary nodules are based at a minimum on nodule size and pa tient risk factors according to Fleischner Society Guidelines. FINDINGS: LUNGS: Following thoracentesis there is no pneumothorax. Extensive consolidative changes persist in both devon ng basces. Small pleural effusions persist. Upper abdominal contents are unremarkable. PLEURAE: Small bilateral pleural effusions persist. Significant consolidation remains. MEDIASTINUM: The heart and great vessels demonstrate no acute abnormality. There is no mediastinal or hilar lymph adenopathy. AXILLAE: Within normal limits. No lymphadenopathy. MUSCULOSKELETAL: Within normal limits for patient age. MISCELLANEOUS: The visualized upper abdominal organs demonstrate no acute abnormality. CONCLUSION: Following thoracentesis there is decreasing amount of effusion. Significant consolidation persists. There is no pneumothorax. Juan J Joel MD FACR on August 29, 2017 at 16:25 Board Certified Radiologist. This report was verified electronically.
--- NOTE | 2017-08-29 16:28 | RADRPT ---
EXAM DATE/TIME: 08/29/2017 14:48 INDICATIONS : Right pleural effusions. DEVICE(S): 1.) 6 Fr [id number] FLUID: Total volume of 500 cc of clear, yellow fluid was removed. Fluid was sent for laboratory ordered studies. MEDICAL HISTORY : Hypertension. SURGICAL HISTORY : Appendectomy. Hysterectomy. Breast augmentation ENCOUNTER: Initial ACUITY: 1 day PAIN SCORE: 0/10 LOCATION: Right PROCEDURE: 1. Emergent CT guided right thoracentesis. 2. Conscious sedation with continuous EKG and oximetry monitoring. 3. EKG and oximetry remained stable throughout the procedure. Emergent thoracentesis was performed for respiratory decompensation. The site was prepped in sterile fashion. Full sterile technique was used, including cap, mask, sterile gloves and gown and a large sterile sheet. Hand hygiene and 2% chlorhexidine and/or betadine/alcohol prep was utilized per cinthia col for cutaneous antisepsis. The skin and subcutaneous tissues were infiltrated with local anesthet ic solution. Using automated exposure control and adjustment of the mA and/or kV according to patient size, radiation dose was kept as low as reasonably achievable to obtain optimal diagnostic quality i mages. DICOM format image data is available electronically for review and comparison. With the patient supine on the CT table, spudder images were obtained through the chest demonstrating t he right sided pleural effusion. Dermatotomy was made and the prescribed catheter was advanced into the pleural fluid. The pleural fluid as above was removed from the hemithorax. Post procedural scan show reduction in the amount of fluid with no evidence of pneumothorax. The patient tolerated the procedure well and there were no complications. EKG and oximetry remained s table throughout the procedure. The patient was sent to recovery in stable condition. CONCLUSION: Uncomplicated CT-guided thoracentesis. Fluid was sent for ordered studies. Persistent consolidative changes and fluid remain on the right. Juan J Jeol MD FACR on August 29, 2017 at 16:26 Board Certified Radiologist. This report was verified electronically.
[2017-08-29] MEDS: MEROPENEM INJ 1,000 MG in SODIUM CHLORIDE 0.9% INJ 100 ML IV SCH (16:50)
--- NOTE | 2017-08-29 16:50 | RADRPT ---
EXAM DATE/TIME: 08/29/2017 15:46 [facility] COMPARISON: CHEST SINGLE AP, August 29, 2017, 12:12. INDICATIONS : Post thorocentesis. MEDICAL HISTORY : Hypertension. SURGICAL HISTORY : Appendectomy. Hysterectomy. Breast augmentation ENCOUNTER: Subsequent ACUITY: 4 - 6 days PAIN SCORE: 0/10 LOCATION: Bilateral chest FINDINGS: Stable left IJ central line. No significant pneumothorax following bilateral thoracentesis. Improved bilateral lower lung zone pleural-parenchymal opacities. Cardiomediastinal contours are within normal limits. Bony thorax is intact. CONCLUSION: 1. No significant pneumothorax status post bilateral thoracenteses. Douglas Jean MD on August 29, 2017 at 16:46 Board Certified Radiologist. This report was verified electronically.
[2017-08-29 16:57] LABS: PLEURAL FLUID HISTIOCYTES 21 %; PLEURAL FLUID LYMPHS 27 %; PLEURAL FLUID MESOTHELIAL 3 %; PLEURAL FLUID MONOS 11 %; PLEURAL FLUID POLYS (SEGS) 38 %; PLEURAL FLUID RBC 20 /MM3 (0-0); PLEURAL FLUID WBC 41 /MM3 (0-10)
[2017-08-29 17:48] LABS: BILIRUBIN, URINE NEG (NEG); BLOOD, URINE MOD (NEG); GLUCOSE,URINE NEG (NEG); HYALINE CAST, URINE 19 /lpf (RARE); KETONE, URINE NEG (NEG); NITRITE,URINE NEG (NEG); PH, URINE 6.5 (5.0-8.5); URINE COLOR YELLOW (YELLW/STRAW); URINE LEUKOCYTE ESTERASE NEG (NEG)
[2017-08-29] MEDS: FAMOTIDINE 20 MG TAB NG SCH (20:01)
[2017-08-29 20:21] LABS: ALBUMIN 2.1 GM/DL (3.4-5.0); ALT (GPT) 32 U/L (10-53); AST (GOT) 69 U/L (15-37); BICARBONATE 25.9 MEQ/L (21.0-32.0); BLOOD UREA NITROGEN 33 MG/DL (7-18); CALCIUM 7.5 MG/DL (8.5-10.1); CHLORIDE 107 MEQ/L (98-107); CREATININE 1.03 MG/DL (0.50-1.00); GLOMERULAR FILTRATION RATE 51 ML/MIN (>89); GLUCOSE,RANDOM 165 MG/DL (74-106); SODIUM (NA) 143 MEQ/L (136-145)
[2017-08-29 20:32] LABS: ALKALINE PHOSPHATASE 51 U/L (45-117); TOTAL BILIRUBIN ADULT 0.6 MG/DL (0.2-1.0); TROPONIN I LESS THAN 0.02 NG/ML (0.02-0.05)
[2017-08-29 23:18] LABS: HEMATOCRIT 27.2 % (35.0-46.0); MEAN CELL VOLUME 94.6 FL (80.0-100.0); MEAN CORPUSCULAR HEMOGLOBIN 31.4 PG (27.0-34.0); MEAN CORPUSCULAR HGB CONC 33.2 % (32.0-36.0); MEAN PLATELET VOLUME 9.4 FL (7.0-11.0); PLATELET COUNT 468 TH/MM3 (150-450); RED BLOOD COUNT 2.88 MIL/MM3 (4.00-5.30); RED CELL DISTRIBUTION WIDTH 14.1 % (11.6-17.2); WHITE BLOOD COUNT 11.2 TH/MM3 (4.0-11.0)
[2017-08-30] VITALS (49 sets, daily range): BP systolic 120–173; BP diastolic 57–86; PULSE 54–63; RESP 16–20; TEMP 98–98.3; O2SAT 85–100
[2017-08-30] MEDS: MEROPENEM INJ 1,000 MG in SODIUM CHLORIDE 0.9% INJ 100 ML IV SCH ×3 (00:40→16:38)
[2017-08-30] MEDS: DEXMEDETOMIDINE INJ 200 MCG in SODIUM CHLORIDE 0.9% INJ 50 ML IV PRN ×3 (00:41→13:44)
[2017-08-30 03:08] LABS: MAGNESIUM 1.7 MG/DL (1.5-2.5); PHOSPHORUS 3.4 MG/DL (2.5-4.9)
[2017-08-30] MEDS: LINEZOLID 600 MG PREMIX 300 ML IV SCH ×2 (03:33→13:11)
[2017-08-30] MEDS: RESP: IPRATROPIUM 0.5 MG/2.5 ML NEB NEB SCH ×6 (03:43→23:55)
[2017-08-30] MEDS: POTASSIUM CHLORIDE 25 MEQ EFFERVESCENT TAB NG SCH ×3 (04:00→22:16)
[2017-08-30] MEDS: INSULIN NovoLIN REGULAR SUPPLEMENTAL SCALE SQ SCH ×6 (04:00→20:00)
[2017-08-30] MEDS: ARTIFICIAL TEARS OPTH SOLN 15 ML BTL EACH EYE SCH ×3 (05:25→18:43)
[2017-08-30 06:23] LABS: HEMATOCRIT 27.9 % (35.0-46.0); HEMOGLOBIN 9.3 GM/DL (11.6-15.3); MEAN CELL VOLUME 94.2 FL (80.0-100.0); MEAN CORPUSCULAR HEMOGLOBIN 31.5 PG (27.0-34.0); MEAN CORPUSCULAR HGB CONC 33.5 % (32.0-36.0); MEAN PLATELET VOLUME 9.3 FL (7.0-11.0); PLATELET COUNT 497 TH/MM3 (150-450); RED BLOOD COUNT 2.96 MIL/MM3 (4.00-5.30); RED CELL DISTRIBUTION WIDTH 14.5 % (11.6-17.2); WHITE BLOOD COUNT 11.8 TH/MM3 (4.0-11.0)
--- NOTE | 2017-08-30 08:22 | RADRPT ---
EXAM DATE/TIME: 08/30/2017 07:59 [facility] COMPARISON: CHEST SINGLE AP, August 29, 2017, 15:46. INDICATIONS : Shortness of breath. MEDICAL HISTORY : Hypertension. SURGICAL HISTORY : Appendectomy. Hysterectomy. Breast augmentation ENCOUNTER: Subsequent ACUITY: 1 day PAIN SCORE: 0/10 LOCATION: Bilateral chest FINDINGS: A single view of the chest demonstrates bilateral perihilar vascular congestion with bibasilar consol idations and pleural effusions. The cardiac/workers silhouette remains slightly widened. Left IJ cent ral line in good position. No visible pneumothorax. Osseous structures are intact. CONCLUSION: Pulmonary hilar vascular congestion with bibasilar consolidations including pleural effusions [facility]. Jackson Samuel MD on August 30, 2017 at 8:20 Board Certified Radiologist. This report was verified electronically.
[2017-08-30 08:38] LABS: ALBUMIN 2.2 GM/DL (3.4-5.0); ALT (GPT) 33 U/L (10-53); AST (GOT) 74 U/L (15-37); BICARBONATE 24.2 MEQ/L (21.0-32.0); BLOOD UREA NITROGEN 36 MG/DL (7-18); CALCIUM 7.8 MG/DL (8.5-10.1); CHLORIDE 109 MEQ/L (98-107); CREATININE 1.07 MG/DL (0.50-1.00); GLOMERULAR FILTRATION RATE 49 ML/MIN (>89); GLUCOSE,RANDOM 151 MG/DL (74-106); SODIUM (NA) 145 MEQ/L (136-145)
[2017-08-30 08:41] LABS: ALKALINE PHOSPHATASE 52 U/L (45-117); TOTAL BILIRUBIN ADULT 0.5 MG/DL (0.2-1.0); TOTAL PROTEIN 5.7 GM/DL (6.4-8.2)
[2017-08-30] MEDS: FLUCONAZOLE 400 MG PREMIX BAG 200 ML IV SCH ×2 (08:48→09:00)
[2017-08-30] MEDS: FAMOTIDINE 20 MG TAB NG SCH ×2 (08:49→22:16)
[2017-08-30] MEDS: THIAMINE HCL 100 MG TAB PO SCH (08:49)
[2017-08-30] MEDS: ASPIRIN 81 MG CHEW TAB OG-TUBE SCH (08:49)
[2017-08-30] MEDS: MULTIVITAMIN TAB PO SCH (08:49)
[2017-08-30] MEDS: SODIUM CHLORIDE 0.9% FLUSH 10 ML FLUSH IV FLUSH SCH ×3 (08:50→22:33)
[2017-08-30] MEDS: FUROSEMIDE 40 MG/4 ML VIAL IV PUSH SCH ×2 (08:50→18:31)
[2017-08-30] MEDS: DIGOXIN SOLUTION 0.125 MG/2.5 ML CUP PO SCH (09:00)
[2017-08-30] MEDS: FERROUS SULFATE 300 MG /5ML UDC PO SCH ×2 (09:00→22:17)
[2017-08-30] MEDS: FOLIC ACID 1 MG TAB PO SCH (09:00)
[2017-08-30] MEDS: MICAFUNGIN INJ 100 MG in SODIUM CHLORIDE 0.9% INJ 100 ML IV SCH (11:19)
--- NOTE | 2017-08-30 12:20 | HHI.CCPN ---
Subjective Remarks/Hospital Course Patient is an 82-year-old female with past medical history of irritable bowel syndrome, hypertension, arthritis, diverticulitis who presented to the [facility] ED after she was found lying on her bed with urine and feces all around her bed. In addition, the patient was altered and obtunded. Most of the history was obtained from reviewing the medical records. Her laboratory data showed acute renal failure with BUN of 52, creatinine 3.39 and lactic acidosis with a lactic acid level of 6.3. In addition, the patient was in rhabdomyolysis with elevated CK at 3855. She was admitted under the hospitalist service; however, a [facility] was called due to worsening mental status, hypertension and hypoxemia. [place] [facility] critical care medicine was consulted for critical care management. When seen, the patient was lethargic, not following any commands, hypotensive. She was subsequently intubated by myself and a right internal jugular central line was placed for hemodynamic monitoring. ABG post intubation showed a pH of 7.31, co2 of 30, pA02 of 117, bicarbonate 15 and saturation of 96% on PRVC rate of 14, tidal volume 350 with IT:1, PEEP 5 and FIO2 of 100%. She was given two liter boluses of normal saline and placed on a bicarbonate drip. Her lactic acid level is trending down and is currently 3.4 from 6.3 on arrival. In addition, her renal function is improving with IV hydration. Her creatinine level is 2.29 from 3.39. Due to hypotension, Levophed was started. A CT scan of the brain in the emergency department was unremarkable. Her initial chest x-ray showed minimal basilar atelectasis, no effusions or pneumothoraces. According to the patient's family, the patient has been intermittently binge drinking. In addition, they report her having diarrhea for a few days. She had a low-grade fever with a temperature of 100.2 last night. 08/16 Patient is sedated with Fentanyl drip intubated and on Levophed 5 mics. On Bicarb drip. MRI brain yesterday showed small lacunar infarcts in left cerebellar hemisphere and right parietal lobe. Lp showed clear CSF, 17 wbc. Afebrile.Renal function worse today with Cr: 2.64 from 2.29 08/17 Patient remains sedated and intubated. On Bicarb drip. Off Levophed renal function slightly worse today with Cr: 2.82 from 2.64 and UOP: 550 ml in 24 hrs 08/18 Patient bit through ETT overnight s/p new ETT placement using tube exchanger. Sedated with Diprivan and Fentanyl. Afebrile. Renal function is improving with Cr: 1.97 from 2.82. On Bicarb drip. Tube feeds held for possible colonoscopy today. 08/19: Remains sedated, orally intubated on mechanical ventilation. Colonoscopy done yesterday revealed ischemic colitis. Has been evaluated by general surgery. Patient went into A. fib with RVR last night and was started on a Cardizem drip. On Levophed for hypotension 08/20: Remains sedated, orally intubated on mechanical ventilation. Started on TPN on 08/19. Cardizem drip turned off this morning. Received 1 dose of digoxin yesterday. 08/21: Remains sedated, orally intubated on mechanical ventilation. On TPN. Ordered Precedex as well as digoxin daily. Starting trophic feeds today. 08/22 Patient remains intubated on Precedex and Fentanyl infusion for sedation. afebrile. 08/23 WBC up to 17.7. Temp max 102.2. Blood culture sent today peripherally ( labelled as line draw initially but was not drawn from a line, lab notified to re-label). Tolerating trophic feeds. Awake and on CPAP 10/5 with RSBI 50s, became labored and desat with 5/5. Denies abdominal pain. Subjective: 08/24: Tmax 102.7 overnight. Currently 100.6. Noted yeast growing from blood culture 08/21. Remains in atrial fibrillation. Potassium currently been replaced. Currently only has once peripheral IV access. Will need central line placed later this afternoon. 08/25 Patient is awake and alert on CPAP trials. T: 101.1 last night. On Heparin and Bumex drips 08/26 Patient was extubated yesterday on 3L oxygen. She went into Afib with RVR last night given Labetalol. Afebrile. 08/27: Patient is slightly tachypneic, but maintaining O2 sat. chest x-ray shows at least moderate sized pleural effusions. Start Lasix 40 mg IV every 12 [address] Doe catheter for accurate intake output and also appears that patient has urinary retention. Remains in atrial fibrillation with RVR, on Cardizem at 15 mg per hour. 3: On BiPAP overnight. Currently on 4 L nasal cannula. Fluctuating neurologic status consistent with delirium. Remains on Cardizem drip at 5 mg per hour for A. fib with RVR. Diuresing well with Lasix. 08/29: Respiratory status borderline with tachypnea. Requiring intermittent BiPAP. Started on Precedex for anxiety. Dropped blood pressure. 1 unit PRBCs ordered. Solu-Medrol 125 mg IV 1 dose ordered as well. Scheduled for CT- guided thoracentesis for right side today. Heparin GTT held for thoracentesis. Chest x-ray with bilateral pleural effusions despite diuresis. 08/30: Seems to be breathing a little better. Was on BiPAP overnight. Currently on nasal cannula. Knows she is at the hospital and follows commands appropriately. Underwent bilateral thoracentesis yesterday with drainage of 500 cc from right side and 300 cc from left. On Precedex which appears to be working well for anxiety. Objective Vital Signs Date Time Temp Pulse Resp B/P (MAP) Pulse Ox O2 Delivery O2 Flow Rate FiO2 08/30/17 10:00 55 08/30/17 08:08 96 Nasal Cannula 4.00 08/30/17 08:00 98.0 20 168/81 (110) 08/30/17 04:00 60 Intake and Output 08/30/17 08/30/17 08/31/17 08:00 16:00 00:00 Intake Total 620 ml Output Total 950 ml Balance -330 ml Result Diagram: 08/30/17 0519 08/30/17 0137 Imaging Last Impressions Chest X-Ray 08/25/17 0600 Signed Impressions: Service Date/Time: Friday, August 25, 2017 03:26 - CONCLUSION: 1. Stable tubes and lines, as above. 2. Stable small bilateral pleural effusions and associated bibasilar airspace disease. Douglas Jean MD Abdomen/Pelvis CT 08/23/17 2074 Signed Impressions: Service Date/Time: Wednesday, August 23, 2017 22:50 - CONCLUSION: 1. Suspected mild diffuse colitis, nonspecific but presumably infectious or inflammatory. No obstruction or abscess. 2. Trace ascites about the same there is worsening anasarca and worsening pleural effusions and consolidation of both lung bases. 3. Tiny nonobstructing stone of the right kidney and a generally benign appearing cyst lower pole the left kidney. No evidence of obstructive uropathy or other etiology for acute renal failure. 4. Atherosclerotic aorta. No aneurysm. Adan Nunes MD Upper Extremity Ultrasound 08/23/17 0000 Signed Impressions: Service Date/Time: Wednesday, August 23, 2017 16:25 - CONCLUSION: Bilateral upper extremity DVT as described above. Samuel Peralta MD Lower Extremity Ultrasound 08/23/17 0000 Signed Impressions: Service Date/Time: Wednesday, August 23, 2017 15:50 - CONCLUSION: 1. There is incomplete compression of the left common femoral vein raising suspicion for nonocclusive thrombus. This vessel, however, still demonstrates normal Doppler blood flow and respiratory variability. 2. The remaining veins of the left lower extremity are patent and the entire right lower extremity is patent without thrombus. Adan Machuca MD Abdomen X-Ray 08/21/17 0600 Signed Impressions: Service Date/Time: July 03:35 - CONCLUSION: The bowel gas pattern remains fairly unremarkable. Jl Stanley MD Lumbar Puncture Fluoroscopy 08/15/17 0000 Signed Impressions: Service Date/Time: Tuesday, August 15, 2017 15:36 - CONCLUSION: 1. Uncomplicated fluoroscopically guided lumbar puncture. 2. Please note, requested opening pressures were not obtained due to technical difficulties. Shashi Moreno MD Brain MRI 08/15/17 0000 Signed Impressions: Service Date/Time: Tuesday, August 15, 2017 16:57 - CONCLUSION: 1. 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 2. Mild stenosis in the upper cervical spine as above. Esau Martell MD Abdomen Ultrasound 08/15/17 0000 Signed Impressions: Service Date/Time: Tuesday, August 15, 2017 10:40 - CONCLUSION: 1. No abnormality is identified to explain the clinical symptoms. There is no hydronephrosis. 2. The liver is normal in size and echotexture. Adan Machuca MD Head CT 08/14/17 9302 Signed Impressions: Service Date/Time: July 22:54 - CONCLUSION: Unremarkable study. Josseline Villagomez MD Objective Remarks GENERAL: 82-year-old female currently lying in bed in bed, mildly tachypneic SKIN: Warm and dry. Generalized Anasarca HEAD: Normocephalic. EYES: Pupils equal and reactive bilaterally about 3 mm. Pallor present, No scleral icterus. No injection or drainage. NECK: Supple, trachea midline. No JVD or lymphadenopathy. Orally intubated. Right IJ site without erythema CARDIOVASCULAR: S1-S2 irregularly irregular. No murmurs appreciated RESPIRATORY: On nasal cannula, diminished breath sounds bilateral bases. Scattered rhonchi. No wheezing appreciated. GASTROINTESTINAL: Abdomen soft, non-tender, minimally distended. Bowel sounds hypoactive but present. No guarding or rigidity MUSCULOSKELETAL: bilateral lower extremity pitting edema. 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 Precedex gtt ordered for agitation/ anxiety while on BIPAP Oxycodone 5 mg every 6 hours PRN 08/15: CT brain negative for acute intracranial process MRI brain: Small lacunar infarcts in left cerebellar hemisphere and right parietal lobe EEG: Severe encephalopathy Continue thiamine, multivitamin and folic acid daily. Repeat EEG 08/21.- generalized slowing, no epileptiform features Neuro is following- Dr. Danielle LP showed clear CSF, 17 WBC, TP:45.2 Previously on chlordiazepoxide 25 mg 3 times a day Pulm: Acute respiratory failure Bilateral pleural effusions Continue with intermittent BIPAP/ oxygen keep sat >92% Bronchodilators( d/c Albuterol due to tachycardia and place on Atrovent nebs) Incentive spirometry Q1 hr while awake. Acapella with nebs. IV Lasix as below Status post bilateral CT-guided thoracentesis by IR on 08/29 with drainage of 500 cc of pleural fluid on right and 300 cc from left. Solu-Medrol 125 mg IV 1 dose on 08/29 for worsening respiratory status with possible underlying COPD. Solu-Medrol 40 mg IV every 12 hourly started 08/30 CV: Atrial fibrillation, with RVR Systolic heart failure unknown if acute or chronic Fluid overload Hypotension Monitor HR and BP keep MAP>65mmHg. Restart Lopressor with lower dose 12.5 mg by mouth every 8 hourly on 08/30, On Digoxin 0.125 mg daily. Digoxin level 0.8 08/25 Cardizem infusion off. Lázaro-Synephrine for pressor support started on 08/29 for hypotension. Troponin is trended down. Echo showed EF 45-50% Continue aspirin 81 mg by mouth daily/home medication IV Lasix 40 mg every 12, continue potassium replacement. Elevated BNP noted. Renal/FEN/: Acute kidney injury, resolved Lactic acidemia, resolved Rhabdomyolysis resolved Right-sided nephrolithiasis/nonobstructing Left renal cyst Monitor renal function, intake and output and avoid nephrotoxins. Renal has followed-Dr. Figueroa, US abdomen: No hydronephrosis CT Abd/pelvis revealed nonobstructing right-sided nephrolithiasis and left renal cyst. Being diuresed with Lasix to mobilize fluid GI: Ischemic colitis Severe acute on Chronic protein energy malnutrition AST elevation secondary to alcohol use Internal and external hemorrhoids PO diet per speech advance as ligia. Discussed with surgery On famotidine 20 mg twice a day for GI prophylaxis. Monitor LFT's( resolved) US liver: No abnormalities identified GI is following- colonoscopy showed diffuse colitis in the sigmoid colon and descending colon; Necrotic, dusky appearing mucosa. Consistent with severe ischemic colitis. General surgery, Dr. Guadalupe -plan to treat conservatively unless patient worsens clinically. Repeat CT abdomen and pelvis 08/23 mild diffuse colitis ID: Septic shock resolved UTI Ischemic colitis Fungemia Abx per ID - Dr. Davis/ Anmol. Cefepime/ flagyl switched to Zyvox/ meropenem on 08/29. Continue IV Micafungin/ diflucan for septic thrombophlebitis Seen by Opth no evidence of endophthalmitis Pertinent cultures 08/23 - blood culture by line (actually peripheral) - coag neg staph 08/21 - blood culture - no growth 08/21 - sputum - no growth 08/21 - - no growth 08/21 - blood culture - Yeast Felipa parapsilosis 08/15 - CSF - negative 08/15 - sputum - no growth 08/14 - blood cultures 2 and UA - no growth C-diff PCR is negative, stool studies negative s/p LP showed clear CSF, 17 WBC, TP:45.2, HSV DNA PCR neg Endo: Hyperglycemia of critical illness/steroid SSI with Novolin R medium with Accu-Chek every 4 hours for glycemic control. TSH: 1.15. Heme: Leukocytosis Normocytic anemia B/L UE DVT Possible left common femoral vein DVT Left cephalic/basilic to professional and right superficial cephalic thrombus Monitor CBC, coags- heparin drip stopped on 08/30 and being started on Lovenox 100 mg subcutaneously daily for full anticoagulation. Iron sulfate 300 mg twice a day. 1 unit PRBCs ordered to be transfused on 08/29 for Hgb 7.5 with symptomatic anemia , hypotension. GI prophylaxis with famotidine and DVT prophylaxis with SCDs, Heparin drip being switched to Lovenox Lines: LIJ central line placed 08/24 Right IJ Central line removed 08/22. , Right radial Art line placed 08/15, has been removed 08/18 Discuss with daughter at bedside and all questions answered. She is aware that patient may possibly need endotracheal intubation if respiratory status declines despite BiPAP. Mikal Corea MD Aug 30, 2017 12:20
[2017-08-30] MEDS ORDERED: PILL SPLITTER OTHER PRN (13:00)
[2017-08-30] MEDS: METOPROLOL TARTRATE 25 MG TAB PO SCH ×2 (13:10→22:16)
[2017-08-30] MEDS: methylPREDNISolone SOD SUCC 40 MG/1 ML VIAL IV PUSH SCH (13:10)
[2017-08-30 15:33] LABS: AMYLASE BODY FLUID 10 U/L; AMYLASE BODY FLUID TYPE PLEURAL
[2017-08-30] MEDS: ENOXAPARIN SODIUM 100 MG/ML SYRINGE SQ SCH (16:38)
[2017-08-31] VITALS (14 sets, daily range): BP systolic 137–167; BP diastolic 70–79; PULSE 57–94; RESP 16–20; TEMP 97.4–99.2; O2SAT 18–98
[2017-08-31] MEDS: RESP: IPRATROPIUM 0.5 MG/2.5 ML NEB NEB SCH ×6 (04:00→23:59)
[2017-08-31] MEDS: methylPREDNISolone SOD SUCC 40 MG/1 ML VIAL IV PUSH SCH ×2 (04:37→14:38)
[2017-08-31] MEDS: DEXMEDETOMIDINE INJ 200 MCG in SODIUM CHLORIDE 0.9% INJ 50 ML IV PRN ×3 (04:38→17:11)
[2017-08-31] MEDS: LINEZOLID 600 MG PREMIX 300 ML IV SCH ×2 (04:38→15:01)
[2017-08-31] MEDS: MEROPENEM INJ 1,000 MG in SODIUM CHLORIDE 0.9% INJ 100 ML IV SCH ×2 (05:00→16:20)
--- NOTE | 2017-08-31 05:50 | RADRPT ---
EXAM DATE/TIME: 08/31/2017 03:19 [place] COMPARISON: CHEST SINGLE AP, August 30, 2017, 7:59. INDICATIONS : Shortness of breath, possible pulmonary disease. MEDICAL HISTORY : Hypertension. SURGICAL HISTORY : Appendectomy. Hysterectomy. ENCOUNTER: Subsequent ACUITY: 2 weeks PAIN SCORE: 0/10 LOCATION: Bilateral chest FINDINGS: Left internal jugular catheter tip remains projected at the cavoatrial junction. There is persistent consolidation in the left lower lung and persistent bilateral mid and lower lung hazy opacities with loss of delineation of both hemidiaphragms characteristic of a combination of parenchymal consolidat ion or pleural effusions. CONCLUSION: Persistent bilateral lower lung consolidation and pleural effusions. Matt Jesus MD on August 31, 2017 at 5:46 Board Certified Radiologist. This report was verified electronically.
[2017-08-31 06:05] LABS: MAGNESIUM 1.7 MG/DL (1.5-2.5); PHOSPHORUS 3.3 MG/DL (2.5-4.9)
[2017-08-31] MEDS: INSULIN NovoLIN REGULAR SUPPLEMENTAL SCALE SQ SCH ×5 (08:00→20:00)
[2017-08-31] MEDS: FLUCONAZOLE 400 MG PREMIX BAG 200 ML IV SCH ×2 (08:14→10:00)
[2017-08-31] MEDS: SODIUM CHLORIDE 0.9% FLUSH 10 ML FLUSH IV FLUSH SCH ×3 (09:00→23:00)
[2017-08-31] MEDS: FOLIC ACID 1 MG TAB PO SCH (09:21)
[2017-08-31] MEDS: FAMOTIDINE 20 MG TAB NG SCH ×2 (09:21→23:00)
[2017-08-31] MEDS: MULTIVITAMIN TAB PO SCH (09:22)
[2017-08-31] MEDS: ASPIRIN 81 MG CHEW TAB OG-TUBE SCH (09:22)
[2017-08-31] MEDS: THIAMINE HCL 100 MG TAB PO SCH (09:22)
[2017-08-31] MEDS: FERROUS SULFATE 300 MG /5ML UDC PO SCH ×2 (09:23→21:00)
[2017-08-31] MEDS: DIGOXIN SOLUTION 0.125 MG/2.5 ML CUP PO SCH (09:23)
[2017-08-31] MEDS: FUROSEMIDE 40 MG/4 ML VIAL IV PUSH SCH ×2 (09:23→16:20)
--- NOTE | 2017-08-31 11:01 | HHI.IDPN ---
Subjective Subjective Remarks Ms. Olson is an 82 year old female with past medical history of hypertension, possible sleep apnea, chronic neck pain, sciatica, alcohol abuse, arthritis, chronic rectal prolapse with bowel incontinence and anxiety. Patients daughter reports she was away for last week (normally she lives with Mom). She checked on her mom each night. The night prior to admission patient and daughter spoke to each other and no reported fever or change in behavior etc noted. No recent bounced checks, change in behavior, fires, falls or doors left unopened or such security concerns. She was found by her daughter lying in bed. On questioning patient was not found vomiting and no seizures. But patient was found in urine and feces. With this background patient presented to [facility] ER on when daughter arrived home to find patient laying on the bed covered in urine and feces. She was obtunded and 911 was called. Upon arrival to the ER: * VS - 100.2, HR 104, RR 18, BP 125/55, O2 sat 95% on room air. * WBC 10.2, hgb 13.8, hct 41.6, platelets 304, neutrophils 91.3% * BUN 52, creatinine 3.39, glucose 177, sodium 141, potassium 5.1, chloride 103 , GFR 13 * Lactic acid 6.3 * TCK 3855, CK-MB 113.6, CK-MB 2.9% * CT head - unremarkable * CXR - minimal basilar atelectasis, no effusion or pneumothorax [facility]. acute renal failure, rhabdomyolysis, lactic acidosis, possible UTI, sepsis. Overnight she developed tachycardia, hypotension and hypoxemia. She was transferred to ICU placed on pressor support. She was started on heparin drip per PE protocol. Corn Sheller was consulted for hypotension, septic shock. On non -rebreather with with oxygen saturation 90% and BP 79/50. Since admission [facility] Infectious disease following for M'ment of Pneumonia and Colitis. Overnight events reviewed. No fevers No rash Off BiPAP all night. On Acapela and doing better. Antibiotics Current Medications Medications (Trade) Dose Ordered Sig/Al Route Start Time Stop Time Status Last Admin (NS Flush) 2 ml UNSCH PRN IV FLUSH 08/15/17 02:00 08/21/17 11:15 (NS Flush) 2 ml BID IV FLUSH 08/15/17 09:00 08/30/17 22:33 (Narcan Inj) 0.4 mg UNSCH PRN IV PUSH 08/15/17 02:00 Miscellaneous Information Patient in critical care unit? Ass... Q361D .XX 08/15/17 06:15 08/15/17 06:15 (Romazicon Inj) 0.2 mg Q1M PRN IV PUSH 08/15/17 06:30 (Vitamin B1) 100 mg DAILY PO 08/15/17 12:00 08/31/17 09:22 (Theragran) 1 tab DAILY PO 08/15/17 12:00 08/31/17 09:22 (Folate) 1 mg DAILY PO 08/15/17 12:00 08/31/17 09:21 (Aspirin Chew) 81 mg DAILY OG-TUBE 08/15/17 19:00 08/31/17 09:22 (D50w (Vial) Inj) 50 ml UNSCH PRN IV PUSH 08/16/17 08:00 (Glucagon Inj) 1 mg UNSCH PRN OTHER 08/16/17 08:00 (NovoLIN R SUPPLEMENTAL SCALE) 1 Q4HR SQ 08/16/17 08:00 08/26/17 16:00 (Trandate Inj) 20 mg Q4H PRN IV PUSH 08/21/17 17:15 08/21/17 21:51 (K-Lyte Cl Eff) 25 meq Q8H NG 08/23/17 20:00 08/30/17 22:16 (Tears Naturale Opth Soln) 1 drop Q8HR EACH EYE 08/24/17 14:00 08/30/17 18:43 (Tylenol 650 Mg/ 20 ml Liq) 650 mg Q6H PRN NG 08/24/17 13:00 (Lanoxin Liq) 0.125 mg DAILY PO 08/25/17 09:00 08/31/17 09:23 (Ferrous Sulfate Liq) 300 mg BID PO 08/24/17 21:00 08/31/17 09:23 (NS Flush) DAILY IV FLUSH 08/25/17 09:00 08/29/17 08:52 (NS Flush) UNSCH PRN IV FLUSH 08/24/17 17:45 (Duoneb Neb) 1 ampule Q2HR NEB PRN NEB 08/25/17 10:00 Miscellaneous Information D/C ICU ELECTROLYTE ORDERS... UNSCH PRN .XX 08/25/17 15:00 Miscellaneous Information ICU - CALL ORDERING PHYSIC... UNSCH PRN .XX 08/25/17 15:00 Potassium Chloride 100 ml @ 25 mls/hr UNSCH PRN IV 08/25/17 15:00 08/29/17 16:51 (K-Lyte Cl Eff) 50 meq UNSCH PRN PO 08/25/17 15:00 Potassium Chloride 100 ml @ 50 mls/hr UNSCH PRN IV 08/25/17 15:00 Magnesium Sulfate 4 gm/Sodium Chloride 108 ml @ 54 mls/hr UNSCH PRN IV 08/25/17 15:00 Magnesium Sulfate 2 gm/Sodium Chloride 104 ml @ 52 mls/hr UNSCH PRN IV 08/25/17 15:00 (Mag-Ox) 800 mg UNSCH PRN PO 08/25/17 15:00 Sodium Phosphate 30 mmol/Sodium Chloride 260 ml @ 43.333 mls/ hr UNSCH PRN IV 08/25/17 15:00 (K-Phos) 2,000 mg UNSCH PRN PO 08/25/17 15:00 Potassium Phosphate 30 mmol/ Sodium Chloride 260 ml @ 43.333 mls/ hr UNSCH PRN IV 08/25/17 15:00 08/27/17 12:01 (Lopressor) 50 mg Q12HR PO 08/26/17 09:00 Future Hold 08/29/17 08:53 (Atrovent Neb) 0.5 mg Q2HR NEB PRN NEB 08/26/17 08:00 (Atrovent Neb) 0.5 mg Q4HR NEB NEB 08/26/17 08:00 08/31/17 08:00 (Pill Splitter) 1 ea UNSCH PRN OTHER 08/26/17 08:30 Diltiazem HCl 125 mg/Sodium Chloride 125 ml @ 5 mls/hr TITRATE PRN IV 08/26/17 14:30 08/28/17 20:36 (Roxicodone) 5 mg Q6H PRN PO 08/27/17 13:00 (Lasix Inj) 40 mg BID@09,18 IV PUSH 08/27/17 09:00 08/31/17 09:23 (Morphine Inj) 1 mg Q4H PRN IV 08/27/17 11:00 08/29/17 02:11 Fluconazole/ Sodium Chloride 200 ml @ 100 mls/hr Q24H IV 08/28/17 08:00 08/31/17 08:14 Fluconazole/ Sodium Chloride 200 ml @ 100 mls/hr Q24H IV 08/28/17 10:00 08/31/17 10:00 Dexmedetomidine HCl 200 mcg/ Sodium Chloride 52 ml @ 3.71 mls/hr TITRATE PRN IV 08/29/17 10:00 08/31/17 09:56 (Benadryl) 25 mg Q4H PRN PO 08/29/17 11:30 Linezolid 300 ml @ 300 mls/hr Q12H IV 08/29/17 14:00 08/31/17 04:38 Phenylephrine HCl 40 mg/Dextrose 500 ml @ 30 mls/hr TITRATE PRN IV 08/29/17 14:00 08/29/17 11:30 (Brethine Inj) 1 mg UNSCH PRN SQ 08/29/17 14:00 (Pepcid) 10 mg BID NG 08/29/17 21:00 08/31/17 09:21 (Lovenox Inj) 100 mg Q24H SQ 08/30/17 15:00 08/30/17 16:38 (SoluMEDROL INJ) 40 mg Q12H IV PUSH 08/30/17 13:00 08/31/17 04:37 (Pill Splitter) 1 ea UNSCH PRN OTHER 08/30/17 13:00 Meropenem 1000 mg/ Sodium Chloride 100 ml @ 200 mls/hr Q12H IV 08/30/17 16:00 08/31/17 05:00 (Magic Mouthwash Adult Liq) 5 ml QID PRN SWISH-SPIT 08/30/17 19:15 (Lopressor) 25 mg Q8HR PO 08/31/17 14:00 UNV Lines Line sites with no e.o infections. Past Medical History reviewed Allergies: Coded Allergies: No Known Allergies (Verified Allergy, Unknown, 08/15/17) Objective . Vital Signs Date Time Temp Pulse Resp B/P (MAP) Pulse Ox O2 Delivery O2 Flow Rate FiO2 08/31/17 10:00 60 08/31/17 08:26 93 Nasal Cannula 4.00 08/31/17 08:00 98.0 60 20 143/70 (94) 98 08/31/17 08:00 Nasal Cannula 4.00 08/31/17 08:00 60 08/31/17 06:00 57 08/31/17 04:00 97 Nasal Cannula 4.00 60 08/31/17 04:00 97.4 57 18 137/72 (93) 96 08/31/17 04:00 57 08/31/17 02:00 93 08/31/17 00:00 Nasal Cannula 4.00 60 08/31/17 00:00 93 08/31/17 00:00 99.2 57 20 137/72 (93) 18 08/31/17 00:00 98.5 59 16 140/75 (96) 97 08/30/17 22:00 56 08/30/17 20:40 98 Nasal Cannula 4.00 08/30/17 20:00 98.3 60 16 130/67 (88) 98 08/30/17 20:00 60 08/30/17 20:00 Nasal Cannula 4.00 08/30/17 18:00 56 08/30/17 16:00 Nasal Cannula 4.00 08/30/17 16:00 56 08/30/17 16:00 98.2 59 120/57 (78) 99 08/30/17 14:00 56 08/30/17 12:00 Nasal Cannula 4.00 08/30/17 12:00 56 08/30/17 12:00 98.0 59 140/67 (91) 97 . Laboratory Tests Test 08/29/17 21:17 08/30/17 05:19 White Blood Count 11.2 TH/MM3 11.8 TH/MM3 Red Blood Count 2.88 MIL/MM3 2.96 MIL/MM3 Hemoglobin 9.0 GM/DL 9.3 GM/DL Hematocrit 27.2 % 27.9 % Mean Corpuscular Volume 94.6 FL 94.2 FL Mean Corpuscular Hemoglobin 31.4 PG 31.5 PG Mean Corpuscular Hemoglobin Concent 33.2 % 33.5 % Red Cell Distribution Width 14.1 % 14.5 % Platelet Count 468 TH/MM3 497 TH/MM3 Mean Platelet Volume 9.4 FL 9.3 FL Laboratory Tests Test 08/29/17 13:15 08/29/17 19:30 08/30/17 01:37 08/30/17 05:19 Lactic Acid Level 2.7 mmol/L 2.9 mmol/L Blood Urea Nitrogen 33 MG/DL 36 MG/DL Creatinine 1.03 MG/DL 1.07 MG/DL Random Glucose 165 MG/DL 151 MG/DL Total Protein 6.0 GM/DL 5.7 GM/DL Albumin 2.1 GM/DL 2.2 GM/DL Calcium Level 7.5 MG/DL 7.8 MG/DL Alkaline Phosphatase 51 U/L 52 U/L Aspartate Amino Transf (AST/SGOT) 69 U/L 74 U/L Alanine Aminotransferase (ALT/SGPT) 32 U/L 33 U/L Total Bilirubin 0.6 MG/DL 0.5 MG/DL Sodium Level 143 MEQ/L 145 MEQ/L Potassium Level 4.6 MEQ/L 4.0 MEQ/L Chloride Level 107 MEQ/L 109 MEQ/L Carbon Dioxide Level 25.9 MEQ/L 24.2 MEQ/L Anion Gap 10 MEQ/L 12 MEQ/L Estimat Glomerular Filtration Rate 51 ML/MIN 49 ML/MIN Troponin I LESS THAN 0.02 NG/ML Phosphorus Level 3.4 MG/DL Magnesium Level 1.7 MG/DL B-Type Natriuretic Peptide 1070 PG/ML Test 08/31/17 04:57 Phosphorus Level 3.3 MG/DL Magnesium Level 1.7 MG/DL Microbiology Date/Time Source Procedure Growth Status 08/29/17 17:23 Blood Peripheral Aerobic Blood Culture - Preliminary NO GROWTH IN 1 DAY Resulted 08/29/17 17:23 Blood Peripheral Anaerobic Blood Culture - Preliminary NO GROWTH IN 1 DAY Resulted 08/29/17 13:15 Blood Peripheral Aerobic Blood Culture - Preliminary NO GROWTH IN 1 DAY Resulted 08/29/17 13:15 Blood Peripheral Anaerobic Blood Culture - Preliminary NO GROWTH IN 1 DAY Resulted 08/29/17 15:00 Fluid Pleural Fluid Fungal Smear - Final NO FUNGAL ELEMENTS SEEN. Resulted 08/29/17 15:00 Fluid Pleural Fluid Fungal Culture Pending Resulted 08/29/17 15:00 Fluid Pleural Fluid Gram Stain - Final Resulted 08/29/17 15:00 Fluid Pleural Fluid Body Fluid Culture - Preliminary NO GROWTH IN 48 HOURS. Resulted Imaging Last Impressions Abdomen X-Ray 08/21/17 0600 Signed Impressions: Service Date/Time: July 03:35 - CONCLUSION: The bowel gas pattern remains fairly unremarkable. Jl Stanley MD Chest X-Ray 08/21/17 0000 Signed Impressions: Service Date/Time: July 19:39 - CONCLUSION: 1. Stable tubes and lines, as above. 2. Worsening bilateral lower lung zone pleural parenchymal disease. Douglas Jean MD Lumbar Puncture Fluoroscopy 08/15/17 0000 Signed Impressions: Service Date/Time: Tuesday, August 15, 2017 15:36 - CONCLUSION: 1. Uncomplicated fluoroscopically guided lumbar puncture. 2. Please note, requested opening pressures were not obtained due to technical difficulties. Shashi Moreno MD Brain MRI 08/15/17 0000 Signed Impressions: Service Date/Time: Tuesday, August 15, 2017 16:57 - CONCLUSION: 1. 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 2. Mild stenosis in the upper cervical spine as above. Esau Martell MD Abdomen/Pelvis CT 08/15/17 0000 Signed Impressions: Service Date/Time: Wednesday, August 16, 2017 00:25 - CONCLUSION: 1. Abnormal thickening of the descending colonic wall and the possibility of colitis should be entertained. There is also thickening of distal ileal wall which may be inflammatory as well. 2. There is mild anasarca with edema or inflammatory changes within the bilateral paracolic gutters extending down into the pelvis. 3. Small bilateral pleural effusions and bibasilar atelectasis and/or infiltrate. 4. Prominent ileocecal valve and possibility of lipoma at this site is not excluded. Josseline Villagomez MD Abdomen Ultrasound 08/15/17 0000 Signed Impressions: Service Date/Time: Tuesday, August 15, 2017 10:40 - CONCLUSION: 1. No abnormality is identified to explain the clinical symptoms. There is no hydronephrosis. 2. The liver is normal in size and echotexture. Adan Machuca MD Head CT 08/14/17 [id number] Signed Impressions: Service Date/Time: July 22:54 - CONCLUSION: Unremarkable study. Josseline Villagomez MD Physical Exam GENERAL: Awake, following simple commands SKIN: No rashes, ecchymoses or lesions. Warm and dry. HEAD: Atraumatic. Normocephalic. No temporal or scalp tenderness. EYES: Pupils equal round and reactive. Extraocular motions intact. No scleral icterus. No injection or drainage. Has mild scleral edema ENT: Moist oral mucosa, no nasal drainage NECK: Trachea midline. Supple, nontender, CARDIOVASCULAR: + murmur, no gallops, rub RESPIRATORY: Bilateral rhonchi GASTROINTESTINAL: Abdomen distended, not tender, hypoactive bowels sounds, no guarding or rebound. MUSCULOSKELETAL: Extremities without clubbing, cyanosis. Has edema hands. No calf tenderness. Negative Homans sign bilaterally. NEUROLOGICAL: Opens eyes spontaneously, moves all 4 extremities. Psych: Cooperative IV line sites with no e.o infection. Assessment & Plan Remarks Assessment and Plan Fungemia in setting of bilateral UE DVT will treat as Septic thrombophlebitis. C.Parapsilosis fungal septic thrombophlebitis. Sepsis. HCAP with effusions. Staph epidermidis: likely pseudobacteremia/contaminant. Specimen from old line, already removed. Acute resp failure on vent Acute metabolic encephalopathy: appears resolving. Alcohol abuse: at risk for withdrawal. Acute rhabdomyolysis: ? seizures. Acute renal failure: sepsis, prerenal, rhabdomyolysis. Colitis clinically and radiologically ; likely ischemic - C diff negative Recs: Continue Meropenem IV (HCAP, fevers while on Zosyn IV) Continue Zyvox IV (HCAP) DC Micafungin IV Continue Diflucan for C.Parapsilosis fungal septic thrombophlebitis. Follow 2D echo Reviewed C.parapsilosis susceptibilities and Diflucan S. Spoke with daughter and son at bedside - updated on current work-up and treatment Discussed with CCM possible vegetation on 1 of the valves. Patient not a candidate for FERNANDO at the present time given her respiratory status. We will discuss with family that this may need to be done at a later date especially if patient gets intubated or has recurrence of fungemia. Critical thinking and decision making. Piedad Corea MD Aug 31, 2017 11:01
--- NOTE | 2017-08-31 11:21 | HHI.CCPN ---
Subjective Remarks/Hospital Course Patient is an 82-year-old female with past medical history of irritable bowel syndrome, hypertension, arthritis, diverticulitis who presented to the [facility] ED after she was found lying on her bed with urine and feces all around her bed. In addition, the patient was altered and obtunded. Most of the history was obtained from reviewing the medical records. Her laboratory data showed acute renal failure with BUN of 52, creatinine 3.39 and lactic acidosis with a lactic acid level of 6.3. In addition, the patient was in rhabdomyolysis with elevated CK at 3855. She was admitted under the hospitalist service; however, a [facility]CAT was called due to worsening mental status, hypertension and hypoxemia. She was transferred to [facility] – [place] and critical care medicine was consulted for critical care management. When seen, the patient was lethargic, not following any commands, hypotensive. She was subsequently intubated by myself and a right internal jugular central line was placed for hemodynamic monitoring. ABG post intubation showed a pH of 7.31, co2 of 30, pA02 of 117, bicarbonate 15 and saturation of 96% on PRVC rate of 14, tidal volume 350 with IT:1, PEEP 5 and FIO2 of 100%. She was given two liter boluses of normal saline and placed on a bicarbonate drip. Her lactic acid level is trending down and is currently 3.4 from 6.3 on arrival. In addition, her renal function is improving with IV hydration. Her creatinine level is 2.29 from 3.39. Due to hypotension, Levophed was started. A CT scan of the brain in the emergency department was unremarkable. Her initial chest x-ray showed minimal basilar atelectasis, no effusions or pneumothoraces. According to the patient's family, the patient has been intermittently binge drinking. In addition, they report her having diarrhea for a few days. She had a low-grade fever with a temperature of 100.2 last night. 08/16 Patient is sedated with Fentanyl drip intubated and on Levophed 5 mics. On Bicarb drip. MRI brain yesterday showed small lacunar infarcts in left cerebellar hemisphere and right parietal lobe. Lp showed clear CSF, 17 wbc. Afebrile.Renal function worse today with Cr: 2.64 from 2.29 08/17 Patient remains sedated and intubated. On Bicarb drip. Off Levophed renal function slightly worse today with Cr: 2.82 from 2.64 and UOP: 550 ml in 24 hrs 08/18 Patient bit through ETT overnight s/p new ETT placement using tube exchanger. Sedated with Diprivan and Fentanyl. Afebrile. Renal function is improving with Cr: 1.97 from 2.82. On Bicarb drip. Tube feeds held for possible colonoscopy today. 08/19: Remains sedated, orally intubated on mechanical ventilation. Colonoscopy done yesterday revealed ischemic colitis. Has been evaluated by general surgery. Patient went into A. fib with RVR last night and was started on a Cardizem drip. On Levophed for hypotension 08/20: Remains sedated, orally intubated on mechanical ventilation. Started on TPN on 08/19. Cardizem drip turned off this morning. Received 1 dose of digoxin yesterday. 08/21: Remains sedated, orally intubated on mechanical ventilation. On TPN. Ordered Precedex as well as digoxin daily. Starting trophic feeds today. 08/22 Patient remains intubated on Precedex and Fentanyl infusion for sedation. afebrile. 08/23 WBC up to 17.7. Temp max 102.2. Blood culture sent today peripherally ( labelled as line draw initially but was not drawn from a line, lab notified to re-label). Tolerating trophic feeds. Awake and on CPAP 10/5 with RSBI 50s, became labored and desat with 5/5. Denies abdominal pain. Subjective: 08/24: Tmax 102.7 overnight. Currently 100.6. Noted yeast growing from blood culture 08/21. Remains in atrial fibrillation. Potassium currently been replaced. Currently only has once peripheral IV access. Will need central line placed later this afternoon. 08/25 Patient is awake and alert on CPAP trials. T: 101.1 last night. On Heparin and Bumex drips 08/26 Patient was extubated yesterday on 3L oxygen. She went into Afib with RVR last night given Labetalol. Afebrile. 08/27: Patient is slightly tachypneic, but maintaining O2 sat. chest x-ray shows at least moderate sized pleural effusions. Start Lasix 40 mg IV every 12 [address] Doe catheter for accurate intake output and also appears that patient has urinary retention. Remains in atrial fibrillation with RVR, on Cardizem at 15 mg per hour. 3: On BiPAP overnight. Currently on 4 L nasal cannula. Fluctuating neurologic status consistent with delirium. Remains on Cardizem drip at 5 mg per hour for A. fib with RVR. Diuresing well with Lasix. 3: Respiratory status borderline with tachypnea. Requiring intermittent BiPAP. Started on Precedex for anxiety. Dropped blood pressure. 1 unit PRBCs ordered. Solu-Medrol 125 mg IV 1 dose ordered as well. Scheduled for CT- guided thoracentesis for right side today. Heparin GTT held for thoracentesis. Chest x-ray with bilateral pleural effusions despite diuresis. 3: Seems to be breathing a little better. Was on BiPAP overnight. Currently on nasal cannula. Knows she is at the hospital and follows commands appropriately. Underwent bilateral thoracentesis yesterday with drainage of 500 cc from right side and 300 cc from left. On Precedex which appears to be working well for anxiety. 08/31: Remains on nasal cannula. Did not use BiPAP at night. Awake and alert. Following commands appropriately. By mouth intake remains borderline. On Precedex 0.2 mics per KG per hour. Objective Vital Signs Date Time Temp Pulse Resp B/P (MAP) Pulse Ox O2 Delivery O2 Flow Rate FiO2 08/31/17 10:00 60 08/31/17 08:26 93 Nasal Cannula 4.00 08/31/17 08:00 98.0 20 143/70 (94) 08/31/17 04:00 60 Intake and Output 08/31/17 08/31/17 09/01/17 08:00 16:00 00:00 Intake Total 500 ml Output Total 1150 ml Balance -650 ml Result Diagram: 08/30/17 0519 08/30/17 0137 Imaging Last Impressions Chest X-Ray 08/25/17 0600 Signed Impressions: Service Date/Time: Friday, August 25, 2017 03:26 - CONCLUSION: 1. Stable tubes and lines, as above. 2. Stable small bilateral pleural effusions and associated bibasilar airspace disease. Douglas Jean MD Abdomen/Pelvis CT 08/23/17 1426 Signed Impressions: Service Date/Time: Wednesday, August 23, 2017 22:50 - CONCLUSION: 1. Suspected mild diffuse colitis, nonspecific but presumably infectious or inflammatory. No obstruction or abscess. 2. Trace ascites about the same there is worsening anasarca and worsening pleural effusions and consolidation of both lung bases. 3. Tiny nonobstructing stone of the right kidney and a generally benign appearing cyst lower pole the left kidney. No evidence of obstructive uropathy or other etiology for acute renal failure. 4. Atherosclerotic aorta. No aneurysm. Adan Nunes MD Upper Extremity Ultrasound 08/23/17 0000 Signed Impressions: Service Date/Time: Wednesday, August 23, 2017 16:25 - CONCLUSION: Bilateral upper extremity DVT as described above. Samuel Peralta MD Lower Extremity Ultrasound 08/23/17 Signed Impressions: Service Date/Time: Wednesday, August 23, 2017 15:50 - CONCLUSION: 1. There is incomplete compression of the left common femoral vein raising suspicion for nonocclusive thrombus. This vessel, however, still demonstrates normal Doppler blood flow and respiratory variability. 2. The remaining veins of the left lower extremity are patent and the entire right lower extremity is patent without thrombus. Adan Machuca MD Abdomen X-Ray 08/21/17 0600 Signed Impressions: Service Date/Time: July 03:35 - CONCLUSION: The bowel gas pattern remains fairly unremarkable. Jl Stanley MD Lumbar Puncture Fluoroscopy 08/15/17 0000 Signed Impressions: Service Date/Time: Tuesday, August 15, 2017 15:36 - CONCLUSION: 1. Uncomplicated fluoroscopically guided lumbar puncture. 2. Please note, requested opening pressures were not obtained due to technical difficulties. Shashi Moreno MD Brain MRI 08/15/17 Signed Impressions: Service Date/Time: Tuesday, August 15, 2017 16:57 - CONCLUSION: 1. 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 2. Mild stenosis in the upper cervical spine as above. Esau Martell MD Abdomen Ultrasound 08/15/17 0000 Signed Impressions: Service Date/Time: Tuesday, August 15, 2017 10:40 - CONCLUSION: 1. No abnormality is identified to explain the clinical symptoms. There is no hydronephrosis. 2. The liver is normal in size and echotexture. Adan Machuca MD Head CT 08/14/17 5051 Signed Impressions: Service Date/Time: July 22:54 - CONCLUSION: Unremarkable study. Josseline Villagomez MD Objective Remarks GENERAL: 82-year-old female currently lying in bed in bed, on nasal cannula SKIN: Warm and dry. HEAD: Normocephalic. EYES: Pupils equal and reactive bilaterally about 3 mm. Pallor present, No scleral icterus. No injection or drainage. NECK: Supple, trachea midline. No JVD or lymphadenopathy. Orally intubated. Right IJ site without erythema CARDIOVASCULAR: S1-S2 irregularly irregular. No murmurs appreciated RESPIRATORY: On nasal cannula, diminished breath sounds bilateral bases. Scattered rhonchi. No wheezing appreciated. GASTROINTESTINAL: Abdomen soft, non-tender, minimally distended. Bowel sounds hypoactive but present. No guarding or rigidity MUSCULOSKELETAL: Trace edema. 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 Precedex gtt ordered for agitation/ anxiety Oxycodone 5 mg every 6 hours PRN 08/15: CT brain negative for acute intracranial process MRI brain: Small lacunar infarcts in left cerebellar hemisphere and right parietal lobe EEG: Severe encephalopathy Continue thiamine, multivitamin and folic acid daily. Repeat EEG 08/21.- generalized slowing, no epileptiform features Neuro is following- Dr. Danielle LP showed clear CSF, 17 WBC, TP:45.2 Previously on chlordiazepoxide 25 mg 3 times a day Pulm: Acute respiratory failure Bilateral pleural effusions Continue with intermittent BIPAP/ oxygen keep sat >92% Bronchodilators( d/c Albuterol due to tachycardia and place on Atrovent nebs) Incentive spirometry Q1 hr while awake. Acapella with nebs. IV Lasix as below Status post bilateral CT-guided thoracentesis by IR on 08/29 with drainage of 500 cc of pleural fluid on right and 300 cc from left. Solu-Medrol 125 mg IV 1 dose on 08/29 for worsening respiratory status with possible underlying COPD. Solu-Medrol 40 mg IV every 12 hourly started 08/30 CV: Atrial fibrillation, with RVR Systolic heart failure unknown if acute or chronic Elevated troponin Fluid overload Hypotension Monitor HR and BP keep MAP>65mmHg. Increase Lopressor to 25mg by mouth every 8 hourly on 08/31, On Digoxin 0.125 mg daily. Digoxin level 0.8 08/25 Cardizem infusion off. Off pressors. Echo showed EF 45-50%, limited echo ordered as CXR continues to show congestion / bilat effusions. Continue aspirin 81 mg by mouth daily/home medication IV Lasix 40 mg every 12, continue potassium replacement. Elevated BNP noted. Renal/FEN/: Acute kidney injury, resolved Lactic acidemia, resolved Rhabdomyolysis resolved Right-sided nephrolithiasis/nonobstructing Left renal cyst Monitor renal function, intake and output and avoid nephrotoxins. Renal has followed-Dr. Figueroa, US abdomen: No hydronephrosis CT Abd/pelvis revealed nonobstructing right-sided nephrolithiasis and left renal cyst. Being diuresed with Lasix to mobilize fluid GI: Ischemic colitis Severe acute on Chronic protein energy malnutrition AST elevation secondary to alcohol use Internal and external hemorrhoids PO diet per speech advance as ligia. Discussed with surgery On famotidine 20 mg twice a day for GI prophylaxis. Monitor LFT's( resolved) US liver: No abnormalities identified GI is following- colonoscopy showed diffuse colitis in the sigmoid colon and descending colon; Necrotic, dusky appearing mucosa. Consistent with severe ischemic colitis. General surgery, Dr. Guadalupe -plan to treat conservatively unless patient worsens clinically. Repeat CT abdomen and pelvis 08/23 mild diffuse colitis ID: Septic shock resolved UTI Ischemic colitis Fungemia Abx per ID - Dr. Davis/ Anmol. Cefepime/ flagyl switched to Zyvox/ meropenem on 08/29. Continue IV Micafungin/ diflucan for septic thrombophlebitis Seen by Opth no evidence of endophthalmitis Pertinent cultures 08/23 - blood culture by line (actually peripheral) - coag neg staph 08/21 - blood culture - no growth 08/21 - sputum - no growth 08/21 - - no growth 08/21 - blood culture - Yeast Eflipa parapsilosis 08/15 - CSF - negative 08/15 - sputum - no growth 08/14 - blood cultures 2 and UA - no growth C-diff PCR is negative, stool studies negative s/p LP showed clear CSF, 17 WBC, TP:45.2, HSV DNA PCR neg Endo: Hyperglycemia of critical illness/steroid SSI with Novolin R medium with Accu-Chek every 4 hours for glycemic control. TSH: 1.15. Heme: Leukocytosis Normocytic anemia B/L UE DVT Possible left common femoral vein DVT Left cephalic/basilic to professional and right superficial cephalic thrombus Monitor CBC, coags- heparin drip stopped on 08/30 and started on Lovenox 100 mg subcutaneously daily for full anticoagulation. Iron sulfate 300 mg twice a day. 1 unit PRBCs ordered to be transfused on 08/29 for Hgb 7.5 with symptomatic anemia , hypotension. GI prophylaxis with famotidine and DVT prophylaxis with SCDs, Heparin drip switched to Lovenox Lines: LIJ central line placed 08/24 Right IJ Central line removed 08/22. , Right radial Art line placed 08/15, has been removed 08/18 Discuss with daughter at bedside and all questions answered. Mikal Corea MD Aug 31, 2017 11:21
[2017-08-31] MEDS: POTASSIUM CHLORIDE 25 MEQ EFFERVESCENT TAB NG SCH ×2 (12:00→23:00)
--- NOTE | 2017-08-31 12:11 | ECHRPT ---
Indication: veg CONCLUSIONS Normal left ventricular size. The left ventricular systolic function is mildly reduced with an estimated ejection fraction in the range of 45- 50%. .[id number] mitral valve regurgitation. Lateral leaflet with a 2 mm mobile denisty, consistent with endocarditis in the appropriate clinica l setting Mild aortic valve regurgitation. There is mild tricuspid valve regurgitation. The pulmonary valve is not well visualized. BP: / HR: Rhythm: MEASUREMENTS (Male / Female) Normal Values Technical Quality:Technically difficult study 2D ECHO LV Diastolic Diameter PLAX 4.4 cm 4.2 - 5.9 / 3.9 - 5.3 cm LV Systolic Diameter PLAX 3.5 cm IVS Diastolic Thickness 1.3 cm 0.6 - 1.0 / 0.6 - 0.9 cm LVPW Diastolic Thickness 1.3 cm 0.6 - 1.0 / 0.6 - 0.9 cm LV Relative Wall Thickness 0.6 RV Internal Dim ED PLAX 2.6 cm FINDINGS LEFT VENTRICLE Normal left ventricular size. The left ventricular systolic function is mildly reduced with an estimated ejection fraction in the range of 45- 50%. RIGHT VENTRICLE Normal right ventricular size and systolic function. LEFT ATRIUM The left atrial size is normal. RIGHT ATRIUM The right atrial size is normal. ATRIAL SEPTUM Normal atrial septal thickness without atrial level shunting by limited color doppler interrogation. AORTA The aortic root and proximal ascending aorta are normal in size on limited imaging. MITRAL VALVE Lateral leaflet with a 2 mm mobile denisty, consistent with endocarditis in the appropriate clinica l setting. Mild thickening of the mitral valve leaflets. .[id number] mitral valve regurgitation. AORTIC VALVE Trileaflet aortic valve. Mild aortic valve regurgitation. TRICUSPID VALVE Structurally normal tricuspid valve. There is mild tricuspid valve regurgitation. PULMONARY VALVE The pulmonary valve is not well visualized. VESSELS The inferior vena cava is normal in size. PERICARDIUM No pericardial effusion. Luisa Corral MD, FACC (Electronically Signed) Final Date:31 August 2017 12:10
[2017-08-31 12:22] LABS: ALBUMIN 1.9 GM/DL (3.4-5.0); ALT (GPT) 30 U/L (10-53); AST (GOT) 41 U/L (15-37); BICARBONATE 23.7 MEQ/L (21.0-32.0); BLOOD UREA NITROGEN 44 MG/DL (7-18); CALCIUM 7.6 MG/DL (8.5-10.1); CHLORIDE 106 MEQ/L (98-107); CREATININE 1.04 MG/DL (0.50-1.00); GLOMERULAR FILTRATION RATE 51 ML/MIN (>89); GLUCOSE,RANDOM 148 MG/DL (74-106); SODIUM (NA) 141 MEQ/L (136-145)
[2017-08-31 12:24] LABS: ALKALINE PHOSPHATASE 57 U/L (45-117); TOTAL BILIRUBIN ADULT 0.4 MG/DL (0.2-1.0); TOTAL PROTEIN 5.2 GM/DL (6.4-8.2)
[2017-08-31] MEDS: ARTIFICIAL TEARS OPTH SOLN 15 ML BTL EACH EYE SCH (14:00)
[2017-08-31] MEDS: MORPHINE SULFATE 2 MG/ML INJ IV PRN (14:38)
[2017-08-31] MEDS: METOPROLOL TARTRATE 25 MG TAB PO SCH ×2 (14:39→23:00)
[2017-08-31] MEDS: ENOXAPARIN SODIUM 100 MG/ML SYRINGE SQ SCH (15:01)
[2017-09-01] VITALS (14 sets, daily range): BP systolic 140–197; BP diastolic 79–93; PULSE 61–118; RESP 16–22; TEMP 98.7–99.8; O2SAT 92–97
[2017-09-01] MEDS: RESP: IPRATROPIUM 0.5 MG/2.5 ML NEB NEB SCH ×6 (03:38→23:15)
[2017-09-01] MEDS: methylPREDNISolone SOD SUCC 40 MG/1 ML VIAL IV PUSH SCH ×3 (04:11→23:18)
[2017-09-01] MEDS: DEXMEDETOMIDINE INJ 200 MCG in SODIUM CHLORIDE 0.9% INJ 50 ML IV PRN (04:11)
[2017-09-01] MEDS: LINEZOLID 600 MG PREMIX 300 ML IV SCH ×2 (04:11→13:19)
[2017-09-01 05:40] LABS: AUTOMATED NEUTROPHIL # 8.7 TH/MM3 (1.8-7.7); BASOPHIL % 0.2 % (0.0-2.0); HEMATOCRIT 27.7 % (35.0-46.0); HEMOGLOBIN 9.7 GM/DL (11.6-15.3); LYMPH % 7.3 % (9.0-44.0); LYMPHOCYTE # 0.7 TH/MM3 (1.0-4.8); MEAN CORPUSCULAR HEMOGLOBIN 32.7 PG (27.0-34.0); MEAN CORPUSCULAR HGB CONC 34.8 % (32.0-36.0); MEAN PLATELET VOLUME 8.9 FL (7.0-11.0); MONO % 6.5 % (0.0-8.0); MONOCYTE # 0.7 TH/MM3 (0-0.9); PLATELET COUNT 436 TH/MM3 (150-450); RED BLOOD COUNT 2.95 MIL/MM3 (4.00-5.30); RED CELL DISTRIBUTION WIDTH 14.5 % (11.6-17.2); WHITE BLOOD COUNT 10.1 TH/MM3 (4.0-11.0)
[2017-09-01] MEDS: MEROPENEM INJ 1,000 MG in SODIUM CHLORIDE 0.9% INJ 100 ML IV SCH ×2 (06:00→16:37)
[2017-09-01] MEDS: METOPROLOL TARTRATE 25 MG TAB PO SCH ×3 (06:01→20:36)
[2017-09-01 06:22] LABS: ALBUMIN 2.1 GM/DL (3.4-5.0); BICARBONATE 26.6 MEQ/L (21.0-32.0); CALCIUM 7.3 MG/DL (8.5-10.1); CALCIUM-PROTEIN CORRECTED 8.3 MG/DL (8.5-10.1); CREATININE 0.94 MG/DL (0.50-1.00); MAGNESIUM 1.6 MG/DL (1.5-2.5); PHOSPHORUS 3.4 MG/DL (2.5-4.9); TOTAL BILIRUBIN ADULT 0.4 MG/DL (0.2-1.0); TOTAL PROTEIN 5.3 GM/DL (6.4-8.2)
[2017-09-01] MEDS: INSULIN NovoLIN REGULAR SUPPLEMENTAL SCALE SQ SCH ×5 (08:00→20:44)
[2017-09-01 08:27] LABS: BANDS 1 % (0-6); LYMPHOCYTES 4 % (9-44); MONOCYTES 3 % (0-8); MYELOCYTES 1 % (0-0); NEUTROPHIL # MANUAL DIFF 9.4 TH/MM3 (1.8-7.7); POLYS (SEG NEUTROPHILS) 91 % (16-70)
[2017-09-01 08:28] LABS: OVALOCYTES 1+ (NORMAL); POLYCHROMASIA 2.8 % (0.0-1.9)
[2017-09-01] MEDS: FLUCONAZOLE 400 MG PREMIX BAG 200 ML IV SCH ×2 (08:57→10:00)
[2017-09-01] MEDS: FUROSEMIDE 40 MG/4 ML VIAL IV PUSH SCH ×2 (08:57→17:06)
[2017-09-01] MEDS: SODIUM CHLORIDE 0.9% FLUSH 10 ML FLUSH IV FLUSH SCH ×3 (08:59→20:35)
[2017-09-01] MEDS: DIGOXIN SOLUTION 0.125 MG/2.5 ML CUP PO SCH (09:11)
[2017-09-01] MEDS: ASPIRIN 81 MG CHEW TAB OG-TUBE SCH (09:12)
[2017-09-01] MEDS: FOLIC ACID 1 MG TAB PO SCH (09:12)
[2017-09-01] MEDS: MULTIVITAMIN TAB PO SCH (09:12)
[2017-09-01] MEDS: FAMOTIDINE 20 MG TAB NG SCH ×2 (09:12→20:36)
[2017-09-01] MEDS: THIAMINE HCL 100 MG TAB PO SCH (09:12)
[2017-09-01] MEDS: FERROUS SULFATE 300 MG /5ML UDC PO SCH ×2 (09:12→20:36)
--- NOTE | 2017-09-01 09:28 | HHI.CCPN ---
Subjective Remarks/Hospital Course Patient is an 82-year-old female with past medical history of irritable bowel syndrome, hypertension, arthritis, diverticulitis who presented to the [facility] ED after she was found lying on her bed with urine and feces all around her bed. In addition, the patient was altered and obtunded. Most of the history was obtained from reviewing the medical records. Her laboratory data showed acute renal failure with BUN of 52, creatinine 3.39 and lactic acidosis with a lactic acid level of 6.3. In addition, the patient was in rhabdomyolysis with elevated CK at 3855. She was admitted under the hospitalist service; however, a [facility] was called due to worsening mental status, hypertension and hypoxemia. She was transferred to [facility] and critical care medicine was consulted for critical care management. When seen, the patient was lethargic, not following any commands, hypotensive. She was subsequently intubated by myself and a right internal jugular central line was placed for hemodynamic monitoring. ABG post intubation showed a pH of 7.31, co2 of 30, pA02 of 117, bicarbonate 15 and saturation of 96% on PRVC rate of 14, tidal volume 350 with IT:1, PEEP 5 and FIO2 of 100%. She was given two liter boluses of normal saline and placed on a bicarbonate drip. Her lactic acid level is trending down and is currently 3.4 from 6.3 on arrival. In addition, her renal function is improving with IV hydration. Her creatinine level is 2.29 from 3.39. Due to hypotension, Levophed was started. A CT scan of the brain in the emergency department was unremarkable. Her initial chest x-ray showed minimal basilar atelectasis, no effusions or pneumothoraces. According to the patient's family, the patient has been intermittently binge drinking. In addition, they report her having diarrhea for a few days. She had a low-grade fever with a temperature of 100.2 last night. 08/16 Patient is sedated with Fentanyl drip intubated and on Levophed 5 mics. On Bicarb drip. MRI brain yesterday showed small lacunar infarcts in left cerebellar hemisphere and right parietal lobe. Lp showed clear CSF, 17 wbc. Afebrile.Renal function worse today with Cr: 2.64 from 2.29 08/17 Patient remains sedated and intubated. On Bicarb drip. Off Levophed renal function slightly worse today with Cr: 2.82 from 2.64 and UOP: 550 ml in 24 hrs 08/18 Patient bit through ETT overnight s/p new ETT placement using tube exchanger. Sedated with Diprivan and Fentanyl. Afebrile. Renal function is improving with Cr: 1.97 from 2.82. On Bicarb drip. Tube feeds held for possible colonoscopy today. 08/19: Remains sedated, orally intubated on mechanical ventilation. Colonoscopy done yesterday revealed ischemic colitis. Has been evaluated by general surgery. Patient went into A. fib with RVR last night and was started on a Cardizem drip. On Levophed for hypotension 08/20: Remains sedated, orally intubated on mechanical ventilation. Started on TPN on 08/19. Cardizem drip turned off this morning. Received 1 dose of digoxin yesterday. 08/21: Remains sedated, orally intubated on mechanical ventilation. On TPN. Ordered Precedex as well as digoxin daily. Starting trophic feeds today. 08/22 Patient remains intubated on Precedex and Fentanyl infusion for sedation. afebrile. 08/23 WBC up to 17.7. Temp max 102.2. Blood culture sent today peripherally ( labelled as line draw initially but was not drawn from a line, lab notified to re-label). Tolerating trophic feeds. Awake and on CPAP 10/5 with RSBI 50s, became labored and desat with 5/5. Denies abdominal pain. Subjective: 08/24: Tmax 102.7 overnight. Currently 100.6. Noted yeast growing from blood culture 08/21. Remains in atrial fibrillation. Potassium currently been replaced. Currently only has once peripheral IV access. Will need central line placed later this afternoon. 08/25 Patient is awake and alert on CPAP trials. T: 101.1 last night. On Heparin and Bumex drips 08/26 Patient was extubated yesterday on 3L oxygen. She went into Afib with RVR last night given Labetalol. Afebrile. 08/27: Patient is slightly tachypneic, but maintaining O2 sat. chest x-ray shows at least moderate sized pleural effusions. Start Lasix 40 mg IV every 12 [address] Doe catheter for accurate intake output and also appears that patient has urinary retention. Remains in atrial fibrillation with RVR, on Cardizem at 15 mg per hour. 08/28: On BiPAP overnight. Currently on 4 L nasal cannula. Fluctuating neurologic status consistent with delirium. Remains on Cardizem drip at 5 mg per hour for A. fib with RVR. Diuresing well with Lasix. 08/29: Respiratory status borderline with tachypnea. Requiring intermittent BiPAP. Started on Precedex for anxiety. Dropped blood pressure. 1 unit PRBCs ordered. Solu-Medrol 125 mg IV 1 dose ordered as well. Scheduled for CT- guided thoracentesis for right side today. Heparin GTT held for thoracentesis. Chest x-ray with bilateral pleural effusions despite diuresis. 08/30: Seems to be breathing a little better. Was on BiPAP overnight. Currently on nasal cannula. Knows she is at the hospital and follows commands appropriately. Underwent bilateral thoracentesis yesterday with drainage of 500 cc from right side and 300 cc from left. On Precedex which appears to be working well for anxiety. 08/31: Remains on nasal cannula. Did not use BiPAP at night. Awake and alert. Following commands appropriately. By mouth intake remains borderline. On Precedex 0.2 mics per KG per hour. 09/01 Patient is on 3L oxygen with good sats, hypertensive Remains on Precedex 0.2 mics per KG per hour Objective Vital Signs Date Time Temp Pulse Resp B/P (MAP) Pulse Ox O2 Delivery O2 Flow Rate FiO2 09/01/17 08:53 95 Nasal Cannula 3.00 09/01/17 06:00 108 09/01/17 04:00 60 09/01/17 04:00 98.8 22 160/79 (106) Intake and Output 09/01/17 09/01/17 09/02/17 08:00 16:00 00:00 Intake Total 1812 ml Output Total 700 ml Balance 1112 ml Result Diagram: 09/01/1720 09/01/17 0520 Other Results Laboratory Tests Test 09/01/17 05:20 White Blood Count 10.1 TH/MM3 Red Blood Count 2.95 MIL/MM3 Hemoglobin 9.7 GM/DL Hematocrit 27.7 % Mean Corpuscular Volume 94.0 FL Mean Corpuscular Hemoglobin 32.7 PG Mean Corpuscular Hemoglobin Concent 34.8 % Red Cell Distribution Width 14.5 % Platelet Count 436 TH/MM3 Mean Platelet Volume 8.9 FL Neutrophils (%) (Auto) 86.0 % Lymphocytes (%) (Auto) 7.3 % Monocytes (%) (Auto) 6.5 % Eosinophils (%) (Auto) 0.0 % Basophils (%) (Auto) 0.2 % Neutrophils # (Auto) 8.7 TH/MM3 Lymphocytes # (Auto) 0.7 TH/MM3 Monocytes # (Auto) 0.7 TH/MM3 Eosinophils # (Auto) 0.0 TH/MM3 Basophils # (Auto) 0.0 TH/MM3 CBC Comment AUTO DIFF Differential Total Cells Counted 100 Neutrophils % (Manual) 91 % Band Neutrophils % 1 % Lymphocytes % 4 % Monocytes % 3 % Neutrophils # (Manual) 9.4 TH/MM3 Myelocytes 1 % Differential Comment FINAL DIFF MANUAL Platelet Estimate NORMAL Platelet Morphology Comment ENLARGED Polychromasia 2.8 % Basophilic Stippling MOD Ovalocytes 1+ Blood Urea Nitrogen 42 MG/DL Creatinine 0.94 MG/DL Random Glucose 106 MG/DL Total Protein 5.3 GM/DL Albumin 2.1 GM/DL Calcium Level 7.3 MG/DL Phosphorus Level 3.4 MG/DL Magnesium Level 1.6 MG/DL Alkaline Phosphatase 85 U/L Aspartate Amino Transf (AST/SGOT) 29 U/L Alanine Aminotransferase (ALT/SGPT) 28 U/L Total Bilirubin 0.4 MG/DL Sodium Level 140 MEQ/L Potassium Level 3.4 MEQ/L Chloride Level 101 MEQ/L Carbon Dioxide Level 26.6 MEQ/L Anion Gap 12 MEQ/L Estimat Glomerular Filtration Rate 57 ML/MIN Protein Corrected Calcium 8.3 MG/DL Imaging Last Impressions Chest X-Ray 08/31/17 0600 Signed Impressions: Service Date/Time: Thursday, August 31, 2017 03:19 - CONCLUSION: Persistent bilateral lower lung consolidation and pleural effusions. Matt Jesus MD Thoracentesis 08/29/17 Signed Impressions: Service Date/Time: Tuesday, August 29, 2017 14:48 - CONCLUSION: Uncomplicated CT-guided thoracentesis. Fluid was sent for studies. Juan J Joel MD FACR Chest CT 08/29/17 Signed Impressions: Service Date/Time: Tuesday, August 29, 2017 14:48 - CONCLUSION: Following thoracentesis there is decreasing amount of effusion. Significant consolidation persists. There is no pneumothorax. Juan J Joel MD FACR Abdomen/Pelvis CT 08/23/17 1426 Signed Impressions: Service Date/Time: Wednesday, August 23, 2017 22:50 - CONCLUSION: 1. Suspected mild diffuse colitis, nonspecific but presumably infectious or inflammatory. No obstruction or abscess. 2. Trace ascites about the same there is worsening anasarca and worsening pleural effusions and consolidation of both lung bases. 3. Tiny nonobstructing stone of the right kidney and a generally benign appearing cyst lower pole the left kidney. No evidence of obstructive uropathy or other etiology for acute renal failure. 4. Atherosclerotic aorta. No aneurysm. Adan Nunes MD Upper Extremity Ultrasound 08/23/17 0000 Signed Impressions: Service Date/Time: Wednesday, August 23, 2017 16:25 - CONCLUSION: Bilateral upper extremity DVT as described above. Samuel Peralta MD Lower Extremity Ultrasound 08/23/17 0000 Signed Impressions: Service Date/Time: Wednesday, August 23, 2017 15:50 - CONCLUSION: 1. There is incomplete compression of the left common femoral vein raising suspicion for nonocclusive thrombus. This vessel, however, still demonstrates normal Doppler blood flow and respiratory variability. 2. The remaining veins of the left lower extremity are patent and the entire right lower extremity is patent without thrombus. Adan Machuca MD Abdomen X-Ray 08/21/17 0600 Signed Impressions: Service Date/Time: July 03:35 - CONCLUSION: The bowel gas pattern remains fairly unremarkable. Jl Stanley MD Lumbar Puncture Fluoroscopy 08/15/17 0000 Signed Impressions: Service Date/Time: Tuesday, August 15, 2017 15:36 - CONCLUSION: 1. Uncomplicated fluoroscopically guided lumbar puncture. 2. Please note, requested opening pressures were not obtained due to technical difficulties. Shashi Moreno MD Brain MRI 08/15/17 0000 Signed Impressions: Service Date/Time: Tuesday, August 15, 2017 16:57 - CONCLUSION: 1. 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 2. Mild stenosis in the upper cervical spine as above. Esau Martell MD Abdomen Ultrasound 08/15/17 0000 Signed Impressions: Service Date/Time: Tuesday, August 15, 2017 10:40 - CONCLUSION: 1. No abnormality is identified to explain the clinical symptoms. There is no hydronephrosis. 2. The liver is normal in size and echotexture. Adan Machuca MD Head CT 08/14/172231 Signed Impressions: Service Date/Time: July 22:54 - CONCLUSION: Unremarkable study. KStepan Villagomez MD Objective Remarks GENERAL: 82-year-old female currently lying in bed on nasal cannula SKIN: Warm and dry. HEAD: Normocephalic. EYES: Pupils equal and reactive bilaterally about 3 mm. Pallor present, No scleral icterus. No injection or drainage. NECK: Supple, trachea midline. No JVD or lymphadenopathy. Orally intubated. Right IJ site without erythema CARDIOVASCULAR: S1-S2 irregularly irregular. No murmurs appreciated RESPIRATORY: On nasal cannula, diminished breath sounds bilateral bases. Scattered rhonchi. No wheezing appreciated. GASTROINTESTINAL: Abdomen soft, non-tender, minimally distended. Bowel sounds hypoactive but present. No guarding or rigidity MUSCULOSKELETAL: Trace edema. 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 D/c Precedex gtt Oxycodone 5 mg every 6 hours PRN 08/15: CT brain negative for acute intracranial process MRI brain: Small lacunar infarcts in left cerebellar hemisphere and right parietal lobe EEG: Severe encephalopathy Continue thiamine, multivitamin and folic acid daily. Repeat EEG 08/21.- generalized slowing, no epileptiform features Neuro is following- Dr. Danielle LP showed clear CSF, 17 WBC, TP:45.2 Pulm: Acute respiratory failure Bilateral pleural effusions Continue with oxygen keep sat >92% Bronchodilators Incentive spirometry Q1 hr while awake. Acapella with nebs. IV Lasix as below Status post bilateral CT-guided thoracentesis by IR on 08/29 with drainage of 500 cc of pleural fluid on right and 300 cc from left(transudative fluid) Solu-Medrol 125 mg IV 1 dose on 08/29 for worsening respiratory status with possible underlying COPD. Solu-Medrol 40 mg IV every 12 hourly started 08/30 CV: Atrial fibrillation, with RVR Systolic heart failure unknown if acute or chronic Elevated troponin Fluid overload Hypotension Monitor HR and BP keep MAP>65mmHg. On Lopressor 25mg Q8, Digoxin 0.125 mg daily. Digoxin level 0.8 08/25, check Dig level today. Add Cardizem 60mg Q6 Repeat Echo showed EF 45-50%, Lateral leaflet with a 2 mm mobile density, consistent with ? endocarditis Continue aspirin 81 mg by mouth daily/home medication IV Lasix 40 mg every 12 Renal/FEN/: Acute kidney injury, resolved Lactic acidemia, resolved Rhabdomyolysis resolved Right-sided nephrolithiasis/nonobstructing Left renal cyst Monitor renal function, intake and output and avoid nephrotoxins. Renal has followed-Dr. Figueroa, US abdomen: No hydronephrosis CT Abd/pelvis revealed nonobstructing right-sided nephrolithiasis and left renal cyst. On Lasix 40mg IV BID GI: Ischemic colitis Severe acute on Chronic protein energy malnutrition AST elevation secondary to alcohol use Internal and external hemorrhoids PO diet per speech a On famotidine 20 mg twice a day for GI prophylaxis. Monitor LFT's( resolved) US liver: No abnormalities identified GI is following- colonoscopy showed diffuse colitis in the sigmoid colon and descending colon; Necrotic, dusky appearing mucosa. Consistent with severe ischemic colitis. General surgery, Dr. Guadalupe -plan to treat conservatively unless patient worsens clinically. Repeat CT abdomen and pelvis 08/23 mild diffuse colitis ID: Septic shock resolved UTI Ischemic colitis Fungemia Abx per ID - Dr. Davis/ Anmol. Cefepime/ flagyl switched to Zyvox/ meropenem on 08/29. Continue Diflucan for septic thrombophlebitis Seen by Opth no evidence of endophthalmitis Pertinent cultures 08/23 - blood culture by line (actually peripheral) - coag neg staph 08/21 - blood culture - no growth 08/21 - sputum - no growth 08/21 - - no growth 08/21 - blood culture - Yeast Felipa parapsilosis 08/15 - CSF - negative 08/15 - sputum - no growth 08/14 - blood cultures 2 and UA - no growth C-diff PCR is negative, stool studies negative s/p LP showed clear CSF, 17 WBC, TP:45.2, HSV DNA PCR neg Endo: Hyperglycemia of critical illness/steroid SSI with Novolin R medium with Accu-Chek every 4 hours for glycemic control. TSH: 1.15. Heme: Leukocytosis Normocytic anemia B/L UE DVT Possible left common femoral vein DVT Left cephalic/basilic to professional and right superficial cephalic thrombus Monitor CBC, coags- heparin drip stopped on 08/30 and started on Lovenox 100 mg subcutaneously daily for full anticoagulation. Iron sulfate 300 mg twice a day. 1 unit PRBCs ordered to be transfused on 08/29 GI prophylaxis with famotidine and DVT prophylaxis with SCDs, Lovenox 100mg daily Lines: LIJ central line placed 08/24 Right IJ Central line removed 08/22. , Right radial Art line placed 08/15, has been removed 08/18 level 3 Don Youngblood MD Sep 01, 2017 09:28
[2017-09-01] MEDS: POTASSIUM CHLORIDE 25 MEQ EFFERVESCENT TAB NG SCH ×3 (12:00→20:00)
[2017-09-01] MEDS: DILTIAZEM HCL 60 MG TAB PO SCH ×3 (13:17→23:18)
[2017-09-01] MEDS: ARTIFICIAL TEARS OPTH SOLN 15 ML BTL EACH EYE SCH ×2 (14:00→20:36)
[2017-09-01] MEDS: ENOXAPARIN SODIUM 100 MG/ML SYRINGE SQ SCH (14:44)
--- NOTE | 2017-09-01 14:55 | HHI.HCPN ---
Reason for visit a. To assist with evaluation and management of symptoms including: dyspnea, weakness. b. To assist medical decision maker(s) with: better understanding of current medical conditions; weighing benefits/burdens of medical treatment options; making medical treatment decisions. . Subjective/Interval History Patient seen and examined in ICU. No family at bedside. T-max 99.8. Tolerating oxygen via nasal cannula oxygen saturation 97%. Tachycardic rate 106 -113. WBC 10.1, hemoglobin 9.7, platelet 436. Albumin 2.1. Digoxin level 0.6. 08/31/17 - chest xray persistent bilateral lower lung consolidation and pleural effusions. Speech therapy dietary recommendations mechanical soft and thin liquids. Patient reports decreased appetite, eating small amounts. States "I have never been a big eater." Physical therapy notes indicate patient requiring max assist to sit on edge of bed, continued work on trunk control. Patient is awake and alert, answering questions appropriately. She seems to have some understanding of what has happened since she was admitted to the hospital. Following commands. Off all sedation. Patient is being followed by [facility], uncertain if she has been accepted yet. . Family/friend interactions No family at bedside. Palliative care number previously provided. . Advance Directives Living Will: Never completed Health Care Surrogate: Never completed Durable Power of Home Planning Consultant Salesperson: Never completed Advance Directive Specifics Health Care Surrogate(s): Living Will copy obtained. According to her Living Will she names daughterSilvia as primary HCS and son Jl Olson as alternate HCS. . Documented care wishes: Standard Living Will on chart. . Significant change in goals: FULL CODE. Goals remain aggressive. Patient hopes for continued rehab ([facility] following) and then DC home. . Objective Vital Signs Date Time Temp Pulse Resp B/P (MAP) Pulse Ox O2 Delivery O2 Flow Rate FiO2 09/01/17 12:00 99.8 113 154/87 (109) 97 09/01/17 12:00 113 09/01/17 10:00 118 09/01/17 08:53 95 Nasal Cannula 3.00 09/01/17 08:00 99.7 106 155/91 (112) 92 09/01/17 08:00 106 09/01/17 06:00 108 09/01/17 04:00 Nasal Cannula 4.00 60 09/01/17 04:00 98.8 63 22 160/79 (106) 94 09/01/17 04:00 110 09/01/17 02:00 63 09/01/17 00:00 98.7 72 20 197/93 (127) 94 09/01/17 00:00 Nasal Cannula 4.00 60 09/01/17 00:00 61 08/31/17 22:00 94 08/31/17 20:26 96 Nasal Cannula 3.00 08/31/17 20:00 Nasal Cannula 4.00 60 08/31/17 20:00 94 08/31/17 20:00 98.7 67 18 167/79 (108) 97 08/31/17 18:00 60 08/31/17 16:00 Nasal Cannula 4.00 08/31/17 16:00 98.0 70 144/72 (96) 96 08/31/17 16:00 60 08/31/17 14:43 16 Intake & Output 09/01/17 09/01/17 07:00 19:00 Intake Total 1812 ml Output Total 700 ml Balance 1112 ml IV Total 1812 ml Output Urine Total 700 ml Physical Exam CONSTITUTIONAL/GENERAL: This is a well nourished patient, in no apparent distress. TUBES/LINES/DRAINS: NC, left IJ Central line, catheter, SCDs. SKIN: No jaundice, rashes, or lesions. Ecchymoses on upper extremities. Skin temperature appropriate. Not diaphoretic. CARDIOVASCULAR: Irregularly irregular. RESPIRATORY/CHEST: Non labored respirations in NC. Diminished bilateral bases. scattered rhonchi. GASTROINTESTINAL: Abdomen soft, non distended. + bowel sounds. GENITOURINARY: Without palpable bladder distension. Catheter in place. MUSCULOSKELETAL: Extremities with edema. Generalized weakness. moves all extremities. NEUROLOGICAL: Awake and alert, soft voice, follows commands, answers questions appropriately. PSYCHIATRIC: denies anxiety. . Diagnostic Tests Laboratory Laboratory Tests Test 08/29/17 15:00 08/29/17 15:30 08/29/17 19:30 08/29/17 21:17 Body Fluid Amylase Source PLEURAL Body Fluid Amylase 10 U/L Pleural Fluid pH 8.5 Pleural Fluid WBC 41 /MM3 (0-10) Pleural Fluid RBC 20 /MM3 (0-0) Pleural Fluid Neutrophils 38 % Pleural Fluid Lymphocytes 27 % Pleural Fluid Monocytes 11 % Pleural Fluid Histiocytes 21 % Pleural Fluid Mesothelial Cells 3 % Pleural Fluid Total Protein 1.1 GM/DL Pleural Fluid LDH 133 U/L Pleural Fluid Glucose 129 MG/DL Urine Color YELLOW (YELLW/STRAW) Urine Turbidity CLEAR (CLEAR) Urine pH 6.5 (5.0-8.5) Urine Specific [place] 1.014 (1.002-1.035) Urine Protein 30 mg/dL (NEG-TRACE) Urine Glucose (UA) NEG mg/dL (NEG) Urine Ketones NEG mg/dL (NEG) Urine Occult Blood MOD (NEG) Urine Nitrite NEG (NEG) Urine Bilirubin NEG (NEG) Urine Urobilinogen LESS THAN 2.0 MG/DL (LESS Urine Leukocyte Esterase NEG (NEG) Urine RBC 1 /hpf (0-3) Urine Hyaline Casts 19 /lpf (RARE) Activated Partial Thromboplast Time 27.8 SEC (24.3-30.1) Blood Urea Nitrogen 33 MG/DL (7-18) Creatinine 1.03 MG/DL (0.50-1.00) Random Glucose 165 MG/DL (74-106) Total Protein 6.0 GM/DL (6.4-8.2) Albumin 2.1 GM/DL (3.4-5.0) Calcium Level 7.5 MG/DL (8.5-10.1) Alkaline Phosphatase 51 U/L (45-117) Aspartate Amino Transf (AST/SGOT) 69 U/L (15-37) Alanine Aminotransferase (ALT/SGPT) 32 U/L (10-53) Total Bilirubin 0.6 MG/DL (0.2-1.0) Sodium Level 143 MEQ/L (136-145) Potassium Level 4.6 MEQ/L (3.5-5.1) Chloride Level 107 MEQ/L (98-107) Carbon Dioxide Level 25.9 MEQ/L (21.0-32.0) Anion Gap 10 MEQ/L (5-15) Estimat Glomerular Filtration Rate 51 ML/MIN (>89) Lactic Acid Level 2.9 mmol/L (0.4-2.0) Troponin I LESS THAN 0.02 NG/ML White Blood Count 11.2 TH/MM3 (4.0-11.0) Red Blood Count 2.88 MIL/MM3 (4.00-5.30) Hemoglobin 9.0 GM/DL (11.6-15.3) Hematocrit 27.2 % (35.0-46.0) Mean Corpuscular Volume 94.6 FL (80.0-100.0) Mean Corpuscular Hemoglobin 31.4 PG (27.0-34.0) Mean Corpuscular Hemoglobin Concent 33.2 % (32.0-36.0) Red Cell Distribution Width 14.1 % (11.6-17.2) Platelet Count 468 TH/MM3 (150-450) Mean Platelet Volume 9.4 FL (7.0-11.0) Test 08/30/17 01:37 08/30/17 05:19 08/30/17 09:45 08/31/17 04:57 Activated Partial Thromboplast Time 30.3 SEC (24.3-30.1) 35.2 SEC (24.3-30.1) 55.1 SEC (24.3-30.1) Blood Urea Nitrogen 36 MG/DL (7-18) 44 MG/DL (7-18) Creatinine 1.07 MG/DL (0.50-1.00) 1.04 MG/DL (0.50-1.00) Random Glucose 151 MG/DL (74-106) 148 MG/DL (74-106) Total Protein 5.7 GM/DL (6.4-8.2) 5.2 GM/DL (6.4-8.2) Albumin 2.2 GM/DL (3.4-5.0) 1.9 GM/DL (3.4-5.0) Calcium Level 7.8 MG/DL (8.5-10.1) 7.6 MG/DL (8.5-10.1) Alkaline Phosphatase 52 U/L (45-117) 57 U/L (45-117) Aspartate Amino Transf (AST/SGOT) 74 U/L (15-37) 41 U/L (15-37) Alanine Aminotransferase (ALT/SGPT) 33 U/L (10-53) 30 U/L (10-53) Total Bilirubin 0.5 MG/DL (0.2-1.0) 0.4 MG/DL (0.2-1.0) Sodium Level 145 MEQ/L (136-145) 141 MEQ/L (136-145) Potassium Level 4.0 MEQ/L (3.5-5.1) 3.6 MEQ/L (3.5-5.1) Chloride Level 109 MEQ/L (98-107) 106 MEQ/L (98-107) Carbon Dioxide Level 24.2 MEQ/L (21.0-32.0) 23.7 MEQ/L (21.0-32.0) Anion Gap 12 MEQ/L (5-15) 11 MEQ/L (5-15) Estimat Glomerular Filtration Rate 49 ML/MIN (>89) 51 ML/MIN (>89) Phosphorus Level 3.4 MG/DL (2.5-4.9) 3.3 MG/DL (2.5-4.9) Magnesium Level 1.7 MG/DL (1.5-2.5) 1.7 MG/DL (1.5-2.5) White Blood Count 11.8 TH/MM3 (4.0-11.0) Red Blood Count 2.96 MIL/MM3 (4.00-5.30) Hemoglobin 9.3 GM/DL (11.6-15.3) Hematocrit 27.9 % (35.0-46.0) Mean Corpuscular Volume 94.2 FL (80.0-100.0) Mean Corpuscular Hemoglobin 31.5 PG (27.0-34.0) Mean Corpuscular Hemoglobin Concent 33.5 % (32.0-36.0) Red Cell Distribution Width 14.5 % (11.6-17.2) Platelet Count 497 TH/MM3 (150-450) Mean Platelet Volume 9.3 FL (7.0-11.0) B-Type Natriuretic Peptide 1070 PG/ML (0-100) Test 09/01/17 05:20 09/01/17 05:30 White Blood Count 10.1 TH/MM3 (4.0-11.0) Red Blood Count 2.95 MIL/MM3 (4.00-5.30) Hemoglobin 9.7 GM/DL (11.6-15.3) Hematocrit 27.7 % (35.0-46.0) Mean Corpuscular Volume 94.0 FL (80.0-100.0) Mean Corpuscular Hemoglobin 32.7 PG (27.0-34.0) Mean Corpuscular Hemoglobin Concent 34.8 % (32.0-36.0) Red Cell Distribution Width 14.5 % (11.6-17.2) Platelet Count 436 TH/MM3 (150-450) Mean Platelet Volume 8.9 FL (7.0-11.0) Neutrophils (%) (Auto) 86.0 % (16.0-70.0) Lymphocytes (%) (Auto) 7.3 % (9.0-44.0) Monocytes (%) (Auto) 6.5 % (0.0-8.0) Eosinophils (%) (Auto) 0.0 % (0.0-4.0) Basophils (%) (Auto) 0.2 % (0.0-2.0) Neutrophils # (Auto) 8.7 TH/MM3 (1.8-7.7) Lymphocytes # (Auto) 0.7 TH/MM3 (1.0-4.8) Monocytes # (Auto) 0.7 TH/MM3 (0-0.9) Eosinophils # (Auto) 0.0 TH/MM3 (0-0.4) Basophils # (Auto) 0.0 TH/MM3 (0-0.2) CBC Comment AUTO DIFF Differential Total Cells Counted 100 Neutrophils % (Manual) 91 % (16-70) Band Neutrophils % 1 % (0-6) Lymphocytes % 4 % (9-44) Monocytes % 3 % (0-8) Neutrophils # (Manual) 9.4 TH/MM3 (1.8-7.7) Myelocytes 1 % (0-0) Differential Comment FINAL DIFF MANUAL Platelet Estimate NORMAL (NORMAL) Platelet Morphology Comment ENLARGED (NORMAL) Polychromasia 2.8 % (0.0-1.9) Basophilic Stippling MOD (NORMAL) Ovalocytes 1+ (NORMAL) Blood Urea Nitrogen 42 MG/DL (7-18) Creatinine 0.94 MG/DL (0.50-1.00) Random Glucose 106 MG/DL (74-106) Total Protein 5.3 GM/DL (6.4-8.2) Albumin 2.1 GM/DL (3.4-5.0) Calcium Level 7.3 MG/DL (8.5-10.1) Phosphorus Level 3.4 MG/DL (2.5-4.9) Magnesium Level 1.6 MG/DL (1.5-2.5) Alkaline Phosphatase 85 U/L (45-117) Aspartate Amino Transf (AST/SGOT) 29 U/L (15-37) Alanine Aminotransferase (ALT/SGPT) 28 U/L (10-53) Total Bilirubin 0.4 MG/DL (0.2-1.0) Sodium Level 140 MEQ/L (136-145) Potassium Level 3.4 MEQ/L (3.5-5.1) Chloride Level 101 MEQ/L (98-107) Carbon Dioxide Level 26.6 MEQ/L (21.0-32.0) Anion Gap 12 MEQ/L (5-15) Estimat Glomerular Filtration Rate 57 ML/MIN (>89) Protein Corrected Calcium 8.3 MG/DL (8.5-10.1) Digoxin Level 0.6 NG/ML (0.8-2.0) Result Diagram: 09/01/17 0520 09/01/17 0520 Microbiology Microbiology Date/Time Source Procedure Growth Status 08/29/17 17:23 Blood Peripheral Aerobic Blood Culture - Preliminary NO GROWTH IN 3 DAYS Resulted 08/29/17 17:23 Blood Peripheral Anaerobic Blood Culture - Preliminary NO GROWTH IN 3 DAYS Resulted 08/29/17 15:00 Fluid Pleural Fluid Fungal Smear - Final NO FUNGAL ELEMENTS SEEN. Resulted 08/29/17 15:00 Fluid Pleural Fluid Fungal Culture Pending Resulted 08/29/17 15:00 Fluid Pleural Fluid Gram Stain - Final Complete 08/29/17 15:00 Fluid Pleural Fluid Body Fluid Culture - Final NO GROWTH IN 72 HRS.--AEROBICALLY OR ... Complete Imaging Last Impressions Chest X-Ray 08/31/17 0600 Signed Impressions: Service Date/Time: Thursday, August 31, 2017 03:19 - CONCLUSION: Persistent bilateral lower lung consolidation and pleural effusions. Matt Jesus MD Thoracentesis 08/29/17 0000 Signed Impressions: Service Date/Time: Tuesday, August 29, 2017 14:48 - CONCLUSION: Uncomplicated CT-guided thoracentesis. Fluid was sent for studies. Juan J Joel MD FACR Chest CT 08/29/17 0000 Signed Impressions: Service Date/Time: Tuesday, August 29, 2017 14:48 - CONCLUSION: Following thoracentesis there is decreasing amount of effusion. Significant consolidation persists. There is no pneumothorax. Juan J Joel MD FACR Abdomen/Pelvis CT 08/23/17 1426 Signed Impressions: Service Date/Time: Wednesday, August 23, 2017 22:50 - CONCLUSION: 1. Suspected mild diffuse colitis, nonspecific but presumably infectious or inflammatory. No obstruction or abscess. 2. Trace ascites about the same there is worsening anasarca and worsening pleural effusions and consolidation of both lung bases. 3. Tiny nonobstructing stone of the right kidney and a generally benign appearing cyst lower pole the left kidney. No evidence of obstructive uropathy or other etiology for acute renal failure. 4. Atherosclerotic aorta. No aneurysm. Adan Nunes MD Upper Extremity Ultrasound 08/23/17 0000 Signed Impressions: Service Date/Time: Wednesday, August 23, 2017 16:25 - CONCLUSION: Bilateral upper extremity DVT as described above. Samuel Peralta MD Lower Extremity Ultrasound 08/23/17 0000 Signed Impressions: Service Date/Time: Wednesday, August 23, 2017 15:50 - CONCLUSION: 1. There is incomplete compression of the left common femoral vein raising suspicion for nonocclusive thrombus. This vessel, however, still demonstrates normal Doppler blood flow and respiratory variability. 2. The remaining veins of the left lower extremity are patent and the entire right lower extremity is patent without thrombus. Adan Machuca MD Abdomen X-Ray 08/21/17 0600 Signed Impressions: Service Date/Time: July 03:35 - CONCLUSION: The bowel gas pattern remains fairly unremarkable. Jl Stanley MD Lumbar Puncture Fluoroscopy 08/15/17 0000 Signed Impressions: Service Date/Time: Tuesday, August 15, 2017 15:36 - CONCLUSION: 1. Uncomplicated fluoroscopically guided lumbar puncture. 2. Please note, requested opening pressures were not obtained due to technical difficulties. Shashi Moreno MD Brain MRI 08/15/17 0000 Signed Impressions: Service Date/Time: Tuesday, August 15, 2017 16:57 - CONCLUSION: 1. 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 2. Mild stenosis in the upper cervical spine as above. Esau Martell MD Abdomen Ultrasound 08/15/17 0000 Signed Impressions: Service Date/Time: Tuesday, August 15, 2017 10:40 - CONCLUSION: 1. No abnormality is identified to explain the clinical symptoms. There is no hydronephrosis. 2. The liver is normal in size and echotexture. Adan Machuca MD Head CT 08/14/172231 Signed Impressions: Service Date/Time: July 22:54 - CONCLUSION: Unremarkable study. Josseline Villagomez MD . Procedures * 08/25/17 - extubated. * 08/15/17-lumbar puncture by IR * 08/15/17 - right IJ central line, intubated. . Assessment and Plan Disease Oriented Problem List: (1) Acute respiratory failure Comment: now on NC (2) Tachycardia (3) Alcohol abuse (4) Atrial fibrillation Symptom Scale: (1) Pain 0-10 Scale: 0 (2) Dyspnea 0-10 Scale: 0 (3) Weakness 0-10 Scale: 0 Comment: continue PT/ OT Pertinent Non-Medical Issues Psychosocial: . Lives with Nicole flores. Has 3 daughters and 1 son. Spiritual: Muslim david. Legal: According to her Living Will she names daughterSilvia as primary HCS and son Jl Olson as alternate HCS. Ethical issues impacting care: No known concerns at this time. . Important Contacts * Silvia "Nicole" Toby, daughter/ HCS: [phone] * Jl Olson, son/ alternate HCS: or [phone] * Jessica, daughter: [phone] * Chelsea, daughter: [phone] . Prognosis Ms. Olson is an 82 year old admitted with rhabdomyolysis, septic shock uncertain etiology, dehydration, renal failure. At this point we will need additional information to determine overall prognosis. Given her advanced age, she remain high risk for further setbacks or decline. . Code Status: Full Code Plan * Patient appears to have some insight and judgment regarding her current health condition, recommend shared medical decision making as her mentation seems to wax and wane. According to her Living Will she names Silvia flores as primary HCS and son Jl Olson as alternate HCS. * FULL CODE. * Goals remain aggressive. Patient hopes for continued rehab ([facility]) and then DC home. * SYMPTOMS: Dyspnea: Medically extubated 08/25/17 am. Denies SOB on NC. Pain: potential sources include intubation, chronic neck pain, infection, etc. Denies pain today. Has PRN Oxycodone, none given. PRN Morphine 1mg IV available, last dose 08/31/17 7448. Anxiety: Off all sedation. Denies. Weakness: Continue PT/OT. No new medication recommendations at this time. * Palliative care will continue to throughout hospital course to assist with clarification of goals. . Attestation To help prompt me to consider important information that might be impacting today's encounter and assessment, information from prior notes written by myself or my colleagues may have been "brought forward" into today's note. My signature on this note, however, is an attestation that I personally performed the exam, history, and/or decision-making noted today, and, unless otherwise indicated, the interactions with patient, family, and staff as well as the review of records all occurred today. I also attest that the listed assessment and stated plan reflect my best clinical judgment today based on the combination of historical information, prior notes, and today's exam/ interactions. When time spent is documented, it refers only to time spent today by the signer, or if indicated, combined time spent today by collaborating physician/nurse practitioner. Vashti Riley Sep 01, 2017 14:55
[2017-09-01] MEDS ORDERED: TEMAZEPAM 7.5 MG CAP PO ONE (21:30)
[2017-09-02] VITALS (19 sets, daily range): BP systolic 129–159; BP diastolic 67–123; PULSE 70–125; RESP 18–19; TEMP 97.9–98.7; O2SAT 77–97
[2017-09-02] MEDS: LINEZOLID 600 MG PREMIX 300 ML IV SCH (02:00)
[2017-09-02] MEDS: RESP: IPRATROPIUM 0.5 MG/2.5 ML NEB NEB SCH ×6 (03:41→23:16)
[2017-09-02] MEDS: POTASSIUM CHLORIDE 25 MEQ EFFERVESCENT TAB NG SCH ×3 (03:57→20:52)
[2017-09-02] MEDS: MEROPENEM INJ 1,000 MG in SODIUM CHLORIDE 0.9% INJ 100 ML IV SCH (03:57)
[2017-09-02 05:35] LABS: AUTOMATED NEUTROPHIL # 8.4 TH/MM3 (1.8-7.7); BASOPHIL % 0.1 % (0.0-2.0); HEMATOCRIT 30.4 % (35.0-46.0); HEMOGLOBIN 10.1 GM/DL (11.6-15.3); LYMPH % 5.2 % (9.0-44.0); LYMPHOCYTE # 0.5 TH/MM3 (1.0-4.8); MEAN CELL VOLUME 95.2 FL (80.0-100.0); MEAN CORPUSCULAR HEMOGLOBIN 31.7 PG (27.0-34.0); MEAN CORPUSCULAR HGB CONC 33.3 % (32.0-36.0); MEAN PLATELET VOLUME 8.7 FL (7.0-11.0); MONOCYTE # 0.4 TH/MM3 (0-0.9); NEUT % 90.7 % (16.0-70.0); PLATELET COUNT 515 TH/MM3 (150-450); RED BLOOD COUNT 3.19 MIL/MM3 (4.00-5.30); RED CELL DISTRIBUTION WIDTH 14.5 % (11.6-17.2); WHITE BLOOD COUNT 9.3 TH/MM3 (4.0-11.0)
[2017-09-02] MEDS: ARTIFICIAL TEARS OPTH SOLN 15 ML BTL EACH EYE SCH ×3 (06:00→20:52)
[2017-09-02 06:03] LABS: BICARBONATE 29.4 MEQ/L (21.0-32.0); CALCIUM 7.6 MG/DL (8.5-10.1); CREATININE 0.77 MG/DL (0.50-1.00); MAGNESIUM 1.8 MG/DL (1.5-2.5); PHOSPHORUS 2.3 MG/DL (2.5-4.9)
--- NOTE | 2017-09-02 07:35 | HHI.CCPN ---
Subjective Remarks/Hospital Course Patient is an 82-year-old female with past medical history of irritable bowel syndrome, hypertension, arthritis, diverticulitis who presented to the [facility] ED after she was found lying on her bed with urine and feces all around her bed. In addition, the patient was altered and obtunded. Most of the history was obtained from reviewing the medical records. Her laboratory data showed acute renal failure with BUN of 52, creatinine 3.39 and lactic acidosis with a lactic acid level of 6.3. In addition, the patient was in rhabdomyolysis with elevated CK at 3855. She was admitted under the hospitalist service; however, a [facility] was called due to worsening mental status, hypertension and hypoxemia. She was [place] [facility] and critical care medicine was consulted for critical care management. When seen, the patient was lethargic, not following any commands, hypotensive. She was subsequently intubated by myself and a right internal jugular central line was placed for hemodynamic monitoring. ABG post intubation showed a pH of 7.31, co2 of 30, pA02 of 117, bicarbonate 15 and saturation of 96% on PRVC rate of 14, tidal volume 350 with IT:1, PEEP 5 and FIO2 of 100%. She was given two liter boluses of normal saline and placed on a bicarbonate drip. Her lactic acid level is trending down and is currently 3.4 from 6.3 on arrival. In addition, her renal function is improving with IV hydration. Her creatinine level is 2.29 from 3.39. Due to hypotension, Levophed was started. A CT scan of the brain in the emergency department was unremarkable. Her initial chest x-ray showed minimal basilar atelectasis, no effusions or pneumothoraces. According to the patient's family, the patient has been intermittently binge drinking. In addition, they report her having diarrhea for a few days. She had a low-grade fever with a temperature of 100.2 last night. 08/16 Patient is sedated with Fentanyl drip intubated and on Levophed 5 mics. On Bicarb drip. MRI brain yesterday showed small lacunar infarcts in left cerebellar hemisphere and right parietal lobe. Lp showed clear CSF, 17 wbc. Afebrile.Renal function worse today with Cr: 2.64 from 2.29 08/17 Patient remains sedated and intubated. On Bicarb drip. Off Levophed renal function slightly worse today with Cr: 2.82 from 2.64 and UOP: 550 ml in 24 hrs 08/18 Patient bit through ETT overnight s/p new ETT placement using tube exchanger. Sedated with Diprivan and Fentanyl. Afebrile. Renal function is improving with Cr: 1.97 from 2.82. On Bicarb drip. Tube feeds held for possible colonoscopy today. 08/19: Remains sedated, orally intubated on mechanical ventilation. Colonoscopy done yesterday revealed ischemic colitis. Has been evaluated by general surgery. Patient went into A. fib with RVR last night and was started on a Cardizem drip. On Levophed for hypotension 08/20: Remains sedated, orally intubated on mechanical ventilation. Started on TPN on 08/19. Cardizem drip turned off this morning. Received 1 dose of digoxin yesterday. 08/21: Remains sedated, orally intubated on mechanical ventilation. On TPN. Ordered Precedex as well as digoxin daily. Starting trophic feeds today. 08/22 Patient remains intubated on Precedex and Fentanyl infusion for sedation. afebrile. 08/23 WBC up to 17.7. Temp max 102.2. Blood culture sent today peripherally ( labelled as line draw initially but was not drawn from a line, lab notified to re-label). Tolerating trophic feeds. Awake and on CPAP 10/5 with RSBI 50s, became labored and desat with 5/5. Denies abdominal pain. Subjective: 08/24: Tmax 102.7 overnight. Currently 100.6. Noted yeast growing from blood culture 08/21. Remains in atrial fibrillation. Potassium currently been replaced. Currently only has once peripheral IV access. Will need central line placed later this afternoon. 08/25 Patient is awake and alert on CPAP trials. T: 101.1 last night. On Heparin and Bumex drips 08/26 Patient was extubated yesterday on 3L oxygen. She went into Afib with RVR last night given Labetalol. Afebrile. 08/27: Patient is slightly tachypneic, but maintaining O2 sat. chest x-ray shows at least moderate sized pleural effusions. Start Lasix 40 mg IV every 12 [address] Doe catheter for accurate intake output and also appears that patient has urinary retention. Remains in atrial fibrillation with RVR, on Cardizem at 15 mg per hour. 3: On BiPAP overnight. Currently on 4 L nasal cannula. Fluctuating neurologic status consistent with delirium. Remains on Cardizem drip at 5 mg per hour for A. fib with RVR. Diuresing well with Lasix. 3: Respiratory status borderline with tachypnea. Requiring intermittent BiPAP. Started on Precedex for anxiety. Dropped blood pressure. 1 unit PRBCs ordered. Solu-Medrol 125 mg IV 1 dose ordered as well. Scheduled for CT- guided thoracentesis for right side today. Heparin GTT held for thoracentesis. Chest x-ray with bilateral pleural effusions despite diuresis. 08/30: Seems to be breathing a little better. Was on BiPAP overnight. Currently on nasal cannula. Knows she is at the hospital and follows commands appropriately. Underwent bilateral thoracentesis yesterday with drainage of 500 cc from right side and 300 cc from left. On Precedex which appears to be working well for anxiety. 08/31: Remains on nasal cannula. Did not use BiPAP at night. Awake and alert. Following commands appropriately. By mouth intake remains borderline. On Precedex 0.2 mics per KG per hour. 09/01 Patient is on 3L oxygen with good sats, hypertensive Remains on Precedex 0.2 mics per KG per hour 09/02 No events overnight. Off Precedex drip. Afebrile. On 3L oxygen. Objective Vital Signs Date Time Temp Pulse Resp B/P (MAP) Pulse Ox O2 Delivery O2 Flow Rate FiO2 09/02/17 06:00 84 09/02/17 04:00 91 Nasal Cannula 3.00 09/02/17 04:00 98.0 19 142/81 (101) 09/01/17 04:00 60 Intake and Output 09/02/17 09/02/17 09/03/17 08:00 16:00 00:00 Intake Total 500 ml Output Total 2250 ml Balance -1750 ml Result Diagram: 09/02/17 0400 09/02/17 0400 Other Results Laboratory Tests Test 09/02/17 04:00 White Blood Count 9.3 TH/MM3 Red Blood Count 3.19 MIL/MM3 Hemoglobin 10.1 GM/DL Hematocrit 30.4 % Mean Corpuscular Volume 95.2 FL Mean Corpuscular Hemoglobin 31.7 PG Mean Corpuscular Hemoglobin Concent 33.3 % Red Cell Distribution Width 14.5 % Platelet Count 515 TH/MM3 Mean Platelet Volume 8.7 FL Neutrophils (%) (Auto) 90.7 % Lymphocytes (%) (Auto) 5.2 % Monocytes (%) (Auto) 4.0 % Eosinophils (%) (Auto) 0.0 % Basophils (%) (Auto) 0.1 % Neutrophils # (Auto) 8.4 TH/MM3 Lymphocytes # (Auto) 0.5 TH/MM3 Monocytes # (Auto) 0.4 TH/MM3 Eosinophils # (Auto) 0.0 TH/MM3 Basophils # (Auto) 0.0 TH/MM3 CBC Comment DIFF FINAL Differential Comment Blood Urea Nitrogen 31 MG/DL Creatinine 0.77 MG/DL Random Glucose 168 MG/DL Calcium Level 7.6 MG/DL Phosphorus Level 2.3 MG/DL Magnesium Level 1.8 MG/DL Sodium Level 137 MEQ/L Potassium Level 3.4 MEQ/L Chloride Level 99 MEQ/L Carbon Dioxide Level 29.4 MEQ/L Anion Gap 9 MEQ/L Estimat Glomerular Filtration Rate 72 ML/MIN Imaging Last Impressions Chest X-Ray 08/31/17 0600 Signed Impressions: Service Date/Time: Thursday, August 31, 2017 03:19 - CONCLUSION: Persistent bilateral lower lung consolidation and pleural effusions. Matt Jesus MD Thoracentesis 08/29/17 0000 Signed Impressions: Service Date/Time: Tuesday, August 29, 2017 14:48 - CONCLUSION: Uncomplicated CT-guided thoracentesis. Fluid was sent for studies. Juan J Joel MD FACR Chest CT 08/29/17 0000 Signed Impressions: Service Date/Time: Tuesday, August 29, 2017 14:48 - CONCLUSION: Following thoracentesis there is decreasing amount of effusion. Significant consolidation persists. There is no pneumothorax. Juan J Joel MD FACR Abdomen/Pelvis CT 08/23/17 1426 Signed Impressions: Service Date/Time: Wednesday, August 23, 2017 22:50 - CONCLUSION: 1. Suspected mild diffuse colitis, nonspecific but presumably infectious or inflammatory. No obstruction or abscess. 2. Trace ascites about the same there is worsening anasarca and worsening pleural effusions and consolidation of both lung bases. 3. Tiny nonobstructing stone of the right kidney and a generally benign appearing cyst lower pole the left kidney. No evidence of obstructive uropathy or other etiology for acute renal failure. 4. Atherosclerotic aorta. No aneurysm. Adan Nunes MD Upper Extremity Ultrasound 08/23/17 0000 Signed Impressions: Service Date/Time: Wednesday, August 23, 2017 16:25 - CONCLUSION: Bilateral upper extremity DVT as described above. Samuel Peralta MD Lower Extremity Ultrasound 08/23/17 0000 Signed Impressions: Service Date/Time: Wednesday, August 23, 2017 15:50 - CONCLUSION: 1. There is incomplete compression of the left common femoral vein raising suspicion for nonocclusive thrombus. This vessel, however, still demonstrates normal Doppler blood flow and respiratory variability. 2. The remaining veins of the left lower extremity are patent and the entire right lower extremity is patent without thrombus. Adan Machuca MD Abdomen X-Ray 08/21/17 0600 Signed Impressions: Service Date/Time: July 03:35 - CONCLUSION: The bowel gas pattern remains fairly unremarkable. Jl Stanley MD Lumbar Puncture Fluoroscopy 08/15/17 0000 Signed Impressions: Service Date/Time: Tuesday, August 15, 2017 15:36 - CONCLUSION: 1. Uncomplicated fluoroscopically guided lumbar puncture. 2. Please note, requested opening pressures were not obtained due to technical difficulties. Shashi Moreno MD Brain MRI 08/15/17 0000 Signed Impressions: Service Date/Time: Tuesday, August 15, 2017 16:57 - CONCLUSION: 1. 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 2. Mild stenosis in the upper cervical spine as above. Esau Martell MD Abdomen Ultrasound 08/15/17 0000 Signed Impressions: Service Date/Time: Tuesday, August 15, 2017 10:40 - CONCLUSION: 1. No abnormality is identified to explain the clinical symptoms. There is no hydronephrosis. 2. The liver is normal in size and echotexture. Adan Machuca MD Head CT 08/14/17 [id number] Signed Impressions: Service Date/Time: July 22:54 - CONCLUSION: Unremarkable study. KStepan Villagomez MD Objective Remarks GENERAL: 82-year-old female currently lying in bed on nasal cannula SKIN: Warm and dry. HEAD: Normocephalic. EYES: Pupils equal and reactive bilaterally about 3 mm. Pallor present, No scleral icterus. No injection or drainage. NECK: Supple, trachea midline. No JVD or lymphadenopathy. Orally intubated. Right IJ site without erythema CARDIOVASCULAR: S1-S2 irregularly irregular. No murmurs appreciated RESPIRATORY: On nasal cannula, diminished breath sounds bilateral bases. Scattered rhonchi. No wheezing appreciated. GASTROINTESTINAL: Abdomen soft, non-tender, minimally distended. Bowel sounds hypoactive but present. No guarding or rigidity MUSCULOSKELETAL: Trace edema. 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 Oxycodone 5 mg every 6 hours PRN 08/15: CT brain negative for acute intracranial process MRI brain: Small lacunar infarcts in left cerebellar hemisphere and right parietal lobe EEG: Severe encephalopathy Continue thiamine, multivitamin and folic acid daily. Repeat EEG 08/21.- generalized slowing, no epileptiform features Neuro is following- Dr. Danielle LP showed clear CSF, 17 WBC, TP:45.2 Pulm: Acute respiratory failure Bilateral pleural effusions Continue with oxygen keep sat >92% Bronchodilators Incentive spirometry Q1 hr while awake. Acapella with nebs. Check CXR Status post bilateral CT-guided thoracentesis by IR on 08/29 with drainage of 500 cc of pleural fluid on right and 300 cc from left(transudative fluid) Solu-Medrol 125 mg IV 1 dose on 08/29 for worsening respiratory status with possible underlying COPD. Solu-Medrol 40 mg IV every 12 hourly started 08/30 CV: Atrial fibrillation, with RVR Systolic heart failure unknown if acute or chronic Elevated troponin Fluid overload Hypotension Monitor HR and BP keep MAP>65mmHg. On Lopressor 25mg Q8, Digoxin 0.125 mg daily. Digoxin level 0.6 on 09/01. Cardizem 60mg Q6 Repeat Echo showed EF 45-50%, Lateral leaflet with a 2 mm mobile density, consistent with ? endocarditis Continue aspirin 81 mg by mouth daily/home medication IV Lasix 40 mg every 12 Renal/FEN/: Acute kidney injury, resolved Lactic acidemia, resolved Rhabdomyolysis resolved Right-sided nephrolithiasis/nonobstructing Left renal cyst Monitor renal function, intake and output and avoid nephrotoxins. Renal has followed-Dr. Figueroa, US abdomen: No hydronephrosis CT Abd/pelvis revealed nonobstructing right-sided nephrolithiasis and left renal cyst. On Lasix 40mg IV BID. Will need K, phos replacement today GI: Ischemic colitis Severe acute on Chronic protein energy malnutrition AST elevation secondary to alcohol use Internal and external hemorrhoids PO diet per speech On famotidine 20 mg twice a day for GI prophylaxis. Monitor LFT's( resolved) US liver: No abnormalities identified GI is following- colonoscopy showed diffuse colitis in the sigmoid colon and descending colon; Necrotic, dusky appearing mucosa. Consistent with severe ischemic colitis. General surgery, Dr. Guadalupe -plan to treat conservatively unless patient worsens clinically. Repeat CT abdomen and pelvis 08/23 mild diffuse colitis ID: Septic shock resolved UTI Ischemic colitis Fungemia Abx per ID - Dr. Davis/ Anmol. Cefepime/ flagyl switched to Zyvox/ meropenem on 08/29. Continue Diflucan for septic thrombophlebitis Seen by Opth no evidence of endophthalmitis Pertinent cultures 08/23 - blood culture by line (actually peripheral) - coag neg staph 08/21 - blood culture - no growth 08/21 - sputum - no growth 08/21 - - no growth 08/21 - blood culture - Yeast Felipa parapsilosis 08/15 - CSF - negative 08/15 - sputum - no growth 08/14 - blood cultures 2 and UA - no growth C-diff PCR is negative, stool studies negative s/p LP showed clear CSF, 17 WBC, TP:45.2, HSV DNA PCR neg Endo: Hyperglycemia of critical illness/steroid SSI with Novolin R medium with Accu-Chek every 4 hours for glycemic control. TSH: 1.15. Heme: Leukocytosis Normocytic anemia B/L UE DVT Possible left common femoral vein DVT Left cephalic/basilic to professional and right superficial cephalic thrombus Monitor CBC, coags- heparin drip stopped on 08/30 and started on Lovenox 100 mg subcutaneously daily for full anticoagulation. Iron sulfate 300 mg twice a day. 1 unit PRBCs ordered to be transfused on 08/29 GI prophylaxis with famotidine and DVT prophylaxis with SCDs, Lovenox 100mg daily Lines: LIJ central line placed 08/24, d/c central line level 3 Don Youngblood MD Sep 02, 2017 07:35
[2017-09-02] MEDS: DILTIAZEM HCL 60 MG TAB PO SCH ×4 (07:48→23:14)
[2017-09-02] MEDS: METOPROLOL TARTRATE 25 MG TAB PO SCH ×3 (07:48→20:52)
[2017-09-02] MEDS: SODIUM CHLORIDE 0.9% FLUSH 10 ML FLUSH IV FLUSH SCH ×3 (07:48→20:52)
[2017-09-02] MEDS: FOLIC ACID 1 MG TAB PO SCH (07:49)
[2017-09-02] MEDS: ASPIRIN 81 MG CHEW TAB OG-TUBE SCH (07:49)
[2017-09-02] MEDS: FUROSEMIDE 40 MG/4 ML VIAL IV PUSH SCH ×2 (07:49→18:00)
[2017-09-02] MEDS: FERROUS SULFATE 300 MG /5ML UDC PO SCH ×2 (07:49→20:52)
[2017-09-02] MEDS: FAMOTIDINE 20 MG TAB NG SCH ×2 (07:49→20:52)
[2017-09-02] MEDS: MULTIVITAMIN TAB PO SCH (07:50)
[2017-09-02] MEDS: THIAMINE HCL 100 MG TAB PO SCH (07:50)
[2017-09-02] MEDS: DIGOXIN SOLUTION 0.125 MG/2.5 ML CUP PO SCH (07:50)
[2017-09-02] MEDS: INSULIN NovoLIN REGULAR SUPPLEMENTAL SCALE SQ SCH ×4 (08:00→20:56)
[2017-09-02] MEDS: FLUCONAZOLE 400 MG PREMIX BAG 200 ML IV SCH ×2 (08:03→10:00)
[2017-09-02] MEDS: ICU - POTASSIUM PHOSPHATE 30 MMOL/NS 250 ML IV PRN ×2 (08:07)
[2017-09-02] MEDS: NYSTAT/DIPHENHY/LIDO MOUTHWASH (Adult) 120ML SWISH-SPIT PRN ×3 (08:16→19:36)
[2017-09-02] MEDS: CEFEPIME INJ 2,000 MG in SODIUM CHLORIDE 0.9% INJ 100 ML IV SCH ×2 (09:00→17:00)
--- NOTE | 2017-09-02 10:24 | RADRPT ---
EXAM DATE/TIME: 09/02/2017 09:41 [place] COMPARISON: CHEST SINGLE AP, August 31, 2017, 3:19. INDICATIONS : Shortness of breath. MEDICAL HISTORY : Hypertension. SURGICAL HISTORY : Appendectomy. Hysterectomy. ENCOUNTER: Subsequent ACUITY: 2 weeks PAIN SCORE: 0/10 LOCATION: Bilateral chest FINDINGS: There continues to be bibasilar infiltrates and bilateral effusions. However there appears to be some moderate improvement with improved aeration compared to the prior examination. Otherwise, the rest o f examination is stable. The left-sided central line remains in place. There is no pneumothorax. The heart size is stable. CONCLUSION: There has been some improvement with the bibasilar infiltrates and effusions [facility] to [facility]. Samuel Peralta MD on September 02, 2017 at 10:22 Board Certified Radiologist. This report was verified electronically.
[2017-09-02] MEDS: LINEZOLID 600 MG TAB PO SCH (13:38)
[2017-09-02] MEDS: methylPREDNISolone SOD SUCC 40 MG/1 ML VIAL IV PUSH SCH (13:38)
[2017-09-02] MEDS: ENOXAPARIN SODIUM 100 MG/ML SYRINGE SQ SCH (14:09)
--- NOTE | 2017-09-02 16:17 | HHI.IDPN ---
Subjective Subjective Remarks Ms. Olson is an 82 year old female with past medical history of hypertension, possible sleep apnea, chronic neck pain, sciatica, alcohol abuse, arthritis, chronic rectal prolapse with bowel incontinence and anxiety. Patients daughter reports she was away for last week (normally she lives with Mom). She checked on her mom each night. The night prior to admission patient and daughter spoke to each other and no reported fever or change in behavior etc noted. No recent bounced checks, change in behavior, fires, falls or doors left unopened or such security concerns. She was found by her daughter lying in bed. On questioning patient was not found vomiting and no seizures. But patient was found in urine and feces. With this background patient presented to [facility] ER on when daughter arrived home to find patient laying on the bed covered in urine and feces. She was obtunded and 911 was called. Upon arrival to the ER: * VS - 100.2, HR 104, RR 18, BP 125/55, O2 sat 95% on room air. * WBC 10.2, hgb 13.8, hct 41.6, platelets 304, neutrophils 91.3% * BUN 52, creatinine 3.39, glucose 177, sodium 141, potassium 5.1, chloride 103 , GFR 13 * Lactic acid 6.3 * TCK 3855, CK-MB 113.6, CK-MB 2.9% * CT head - unremarkable * CXR - minimal basilar atelectasis, no effusion or pneumothorax [facility] for severe dehydration. acute renal failure, rhabdomyolysis, lactic acidosis, possible UTI, sepsis. Overnight she developed tachycardia, hypotension and hypoxemia. She was transferred to ICU placed on pressor support. She was started on heparin drip per PE protocol. Gang Pusher was consulted for hypotension, septic shock. On non -rebreather with with oxygen saturation 90% and BP 79/50. Since admission [facility] Infectious disease following for M'ment of Pneumonia and Colitis. Overnight events reviewed. No fevers No rash No diarrhea No abd pain Antibiotics Current Medications Medications (Trade) Dose Ordered Sig/Al Route Start Time Stop Time Status Last Admin (NS Flush) 2 ml UNSCH PRN IV FLUSH 08/15/17 02:00 08/21/17 11:15 (NS Flush) 2 ml BID IV FLUSH 08/15/17 09:00 09/02/17 07:48 (Narcan Inj) 0.4 mg UNSCH PRN IV PUSH 08/15/17 02:00 Miscellaneous Information Patient in critical care unit? Ass... Q361D .XX 08/15/17 06:15 08/15/17 06:15 (Romazicon Inj) 0.2 mg Q1M PRN IV PUSH 08/15/17 06:30 (Vitamin B1) 100 mg DAILY PO 08/15/17 12:00 09/02/17 07:50 (Theragran) 1 tab DAILY PO 08/15/17 12:00 09/02/17 07:50 (Folate) 1 mg DAILY PO 08/15/17 12:00 09/02/17 07:49 (Aspirin Chew) 81 mg DAILY OG-TUBE 08/15/17 19:00 09/02/17 07:49 (D50w (Vial) Inj) 50 ml UNSCH PRN IV PUSH 08/16/17 08:00 (Glucagon Inj) 1 mg UNSCH PRN OTHER 08/16/17 08:00 (Trandate Inj) 20 mg Q4H PRN IV PUSH 08/21/17 17:15 08/21/17 21:51 (K-Lyte Cl Eff) 25 meq Q8H NG 08/23/17 20:00 09/02/17 13:38 (Tears Naturale Opth Soln) 1 drop Q8HR EACH EYE 08/24/17 14:00 08/31/17 14:00 (Tylenol 650 Mg/ 20 ml Liq) 650 mg Q6H PRN NG 08/24/17 13:00 (Lanoxin Liq) 0.125 mg DAILY PO 08/25/17 09:00 09/02/17 07:50 (Ferrous Sulfate Liq) 300 mg BID PO 08/24/17 21:00 09/02/17 07:49 (NS Flush) DAILY IV FLUSH 08/25/17 09:00 09/01/17 09:00 (NS Flush) UNSCH PRN IV FLUSH 08/24/17 17:45 (Duoneb Neb) 1 ampule Q2HR NEB PRN NEB 08/25/17 10:00 Miscellaneous Information D/C ICU ELECTROLYTE ORDERS... UNSCH PRN .XX 08/25/17 15:00 Miscellaneous Information ICU - CALL ORDERING PHYSIC... UNSCH PRN .XX 08/25/17 15:00 Potassium Chloride 100 ml @ 25 mls/hr UNSCH PRN IV 08/25/17 15:00 08/29/17 16:51 (K-Lyte Cl Eff) 50 meq UNSCH PRN PO 08/25/17 15:00 Potassium Chloride 100 ml @ 50 mls/hr UNSCH PRN IV 08/25/17 15:00 09/01/17 20:35 Magnesium Sulfate 4 gm/Sodium Chloride 108 ml @ 54 mls/hr UNSCH PRN IV 08/25/17 15:00 Magnesium Sulfate 2 gm/Sodium Chloride 104 ml @ 52 mls/hr UNSCH PRN IV 08/25/17 15:00 (Mag-Ox) 800 mg UNSCH PRN PO 08/25/17 15:00 Sodium Phosphate 30 mmol/Sodium Chloride 260 ml @ 43.333 mls/ hr UNSCH PRN IV 08/25/17 15:00 (K-Phos) 2,000 mg UNSCH PRN PO 08/25/17 15:00 Potassium Phosphate 30 mmol/ Sodium Chloride 260 ml @ 43.333 mls/ hr UNSCH PRN IV 08/25/17 15:00 09/02/17 08:07 (Atrovent Neb) 0.5 mg Q2HR NEB PRN NEB 08/26/17 08:00 (Atrovent Neb) 0.5 mg Q4HR NEB NEB 08/26/17 08:00 09/02/17 11:13 (Pill Splitter) 1 ea UNSCH PRN OTHER 08/26/17 08:30 (Roxicodone) 5 mg Q6H PRN PO 08/27/17 13:00 (Lasix Inj) 40 mg BID@,18 IV PUSH 08/27/17 09:00 09/02/17 07:49 (Morphine Inj) 1 mg Q4H PRN IV 08/27/17 11:00 08/31/17 14:38 Fluconazole/ Sodium Chloride 200 ml @ 100 mls/hr Q24H IV 08/28/17 08:00 09/02/17 08:03 Fluconazole/ Sodium Chloride 200 ml @ 100 mls/hr Q24H IV 08/28/17 10:00 09/01/17 10:00 (Benadryl) 25 mg Q4H PRN PO 08/29/17 11:30 (Brethine Inj) 1 mg UNSCH PRN SQ 08/29/17 14:00 (Pepcid) 10 mg BID NG 08/29/17 21:00 09/02/17 07:49 (Lovenox Inj) 100 mg Q24H SQ 08/30/17 15:00 09/02/17 14:09 (SoluMEDROL INJ) 40 mg Q12H IV PUSH 08/30/17 13:00 09/02/17 13:38 (Pill Splitter) 1 ea UNSCH PRN OTHER 08/30/17 13:00 09/01/17 09:12 (Magic Mouthwash Adult Liq) 5 ml QID PRN SWISH-SPIT 08/30/17 19:15 09/02/17 14:09 (Lopressor) 25 mg Q8HR PO 08/31/17 14:00 09/02/17 13:38 (Cardizem) 60 mg Q6HR PO 09/01/17 12:00 09/02/17 13:38 (NovoLIN R SUPPLEMENTAL SCALE) 1 ACHS SLIDING SCALE SQ 09/01/17 17:00 09/01/17 20:44 (Zyvox) 600 mg Q12H PO 09/02/17 14:00 09/02/17 13:38 Cefepime HCl 2000 mg/Sodium Chloride 100 ml @ 200 mls/hr Q8H IV 09/02/17 09:00 Lines Line sites with no e.o infections. Past Medical History reviewed Allergies: Coded Allergies: No Known Allergies (Verified Allergy, Unknown, 08/15/17) Objective . Vital Signs Date Time Temp Pulse Resp B/P (MAP) Pulse Ox O2 Delivery O2 Flow Rate FiO2 09/02/17 16:00 75 09/02/17 16:00 98.5 75 150/78 (102) 09/02/17 15:00 84 09/02/17 14:00 102 157/98 (117) 09/02/17 14:00 102 09/02/17 13:00 83 09/02/17 13:00 83 151/72 (98) 09/02/17 12:00 74 09/02/17 12:00 98.0 74 141/73 (95) 09/02/17 11:00 70 09/02/17 11:00 70 130/74 (92) 95 09/02/17 10:00 76 09/02/17 10:00 76 129/72 (91) 94 09/02/17 09:00 86 09/02/17 09:00 86 153/72 (99) 09/02/17 08:26 97 Nasal Cannula 4.00 09/02/17 08:00 125 09/02/17 08:00 98.7 125 144/80 (101) 77 09/02/17 06:00 84 09/02/17 04:00 91 Nasal Cannula 3.00 09/02/17 04:00 98.0 86 19 142/81 (101) 92 09/02/17 04:00 86 09/02/17 02:00 81 09/02/17 00:00 70 09/02/17 00:00 97.9 70 18 139/67 (91) 96 09/02/17 00:00 95 Nasal Cannula 3.00 09/01/17 22:00 82 09/01/17 20:15 96 Nasal Cannula 3.00 09/01/17 20:00 116 09/01/17 20:00 98.7 116 16 152/82 (105) 95 09/01/17 20:00 92 Nasal Cannula 3.00 09/01/17 18:00 114 . Laboratory Tests Test 09/01/17 05:20 09/02/17 04:00 White Blood Count 10.1 TH/MM3 9.3 TH/MM3 Red Blood Count 2.95 MIL/MM3 3.19 MIL/MM3 Hemoglobin 9.7 GM/DL 10.1 GM/DL Hematocrit 27.7 % 30.4 % Mean Corpuscular Volume 94.0 FL 95.2 FL Mean Corpuscular Hemoglobin 32.7 PG 31.7 PG Mean Corpuscular Hemoglobin Concent 34.8 % 33.3 % Red Cell Distribution Width 14.5 % 14.5 % Platelet Count 436 TH/MM3 515 TH/MM3 Mean Platelet Volume 8.9 FL 8.7 FL Neutrophils (%) (Auto) 86.0 % 90.7 % Lymphocytes (%) (Auto) 7.3 % 5.2 % Monocytes (%) (Auto) 6.5 % 4.0 % Eosinophils (%) (Auto) 0.0 % 0.0 % Basophils (%) (Auto) 0.2 % 0.1 % Neutrophils # (Auto) 8.7 TH/MM3 8.4 TH/MM3 Lymphocytes # (Auto) 0.7 TH/MM3 0.5 TH/MM3 Monocytes # (Auto) 0.7 TH/MM3 0.4 TH/MM3 Eosinophils # (Auto) 0.0 TH/MM3 0.0 TH/MM3 Basophils # (Auto) 0.0 TH/MM3 0.0 TH/MM3 CBC Comment AUTO DIFF DIFF FINAL Differential Total Cells Counted 100 Neutrophils % (Manual) 91 % Band Neutrophils % 1 % Lymphocytes % 4 % Monocytes % 3 % Neutrophils # (Manual) 9.4 TH/MM3 Myelocytes 1 % Differential Comment FINAL DIFF MANUAL Platelet Estimate NORMAL Platelet Morphology Comment ENLARGED Polychromasia 2.8 % Basophilic Stippling MOD Ovalocytes 1+ Laboratory Tests Test 09/01/17 05:20 09/02/17 04:00 Blood Urea Nitrogen 42 MG/DL 31 MG/DL Creatinine 0.94 MG/DL 0.77 MG/DL Random Glucose 106 MG/DL 168 MG/DL Total Protein 5.3 GM/DL Albumin 2.1 GM/DL Calcium Level 7.3 MG/DL 7.6 MG/DL Phosphorus Level 3.4 MG/DL 2.3 MG/DL Magnesium Level 1.6 MG/DL 1.8 MG/DL Alkaline Phosphatase 85 U/L Aspartate Amino Transf (AST/SGOT) 29 U/L Alanine Aminotransferase (ALT/SGPT) 28 U/L Total Bilirubin 0.4 MG/DL Sodium Level 140 MEQ/L 137 MEQ/L Potassium Level 3.4 MEQ/L 3.4 MEQ/L Chloride Level 101 MEQ/L 99 MEQ/L Carbon Dioxide Level 26.6 MEQ/L 29.4 MEQ/L Anion Gap 12 MEQ/L 9 MEQ/L Estimat Glomerular Filtration Rate 57 ML/MIN 72 ML/MIN Protein Corrected Calcium 8.3 MG/DL B-Type Natriuretic Peptide 1090 PG/ML Imaging Last Impressions Abdomen X-Ray 08/21/17 0600 Signed Impressions: Service Date/Time: July 03:35 - CONCLUSION: The bowel gas pattern remains fairly unremarkable. Jl Stanley MD Chest X-Ray 08/21/17 0000 Signed Impressions: Service Date/Time: July 19:39 - CONCLUSION: 1. Stable tubes and lines, as above. 2. Worsening bilateral lower lung zone pleural parenchymal disease. Douglas Jean MD Lumbar Puncture Fluoroscopy 08/15/17 0000 Signed Impressions: Service Date/Time: Tuesday, August 15, 2017 15:36 - CONCLUSION: 1. Uncomplicated fluoroscopically guided lumbar puncture. 2. Please note, requested opening pressures were not obtained due to technical difficulties. Shashi Moreno MD Brain MRI 08/15/17 0000 Signed Impressions: Service Date/Time: Tuesday, August 15, 2017 16:57 - CONCLUSION: 1. 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 2. Mild stenosis in the upper cervical spine as above. Esau Martell MD Abdomen/Pelvis CT 08/15/17 0000 Signed Impressions: Service Date/Time: Wednesday, August 16, 2017 00:25 - CONCLUSION: 1. Abnormal thickening of the descending colonic wall and the possibility of colitis should be entertained. There is also thickening of distal ileal wall which may be inflammatory as well. 2. There is mild anasarca with edema or inflammatory changes within the bilateral paracolic gutters extending down into the pelvis. 3. Small bilateral pleural effusions and bibasilar atelectasis and/or infiltrate. 4. Prominent ileocecal valve and possibility of lipoma at this site is not excluded. Josseline Villagomez MD Abdomen Ultrasound 08/15/17 0000 Signed Impressions: Service Date/Time: Tuesday, August 15, 2017 10:40 - CONCLUSION: 1. No abnormality is identified to explain the clinical symptoms. There is no hydronephrosis. 2. The liver is normal in size and echotexture. Adan Machuca MD Head CT 08/14/17 223 Signed Impressions: Service Date/Time: July 22:54 - CONCLUSION: Unremarkable study. Josseline Villagomez MD Physical Exam GENERAL: Awake, following commands SKIN: No rashes, ecchymoses or lesions. Warm and dry. HEAD: Atraumatic. Normocephalic. No temporal or scalp tenderness. EYES: Pupils equal round and reactive. Extraocular motions intact. No scleral icterus. No injection or drainage. Has mild scleral edema ENT: Moist oral mucosa, no nasal drainage NECK: Trachea midline. Supple, nontender, CARDIOVASCULAR: + murmur, no gallops, rub RESPIRATORY: Bilateral rhonchi GASTROINTESTINAL: Abdomen distended, not tender, hypoactive bowels sounds, no guarding or rebound. MUSCULOSKELETAL: Extremities without clubbing. No calf tenderness. Negative Homans sign bilaterally. NEUROLOGICAL: Opens eyes spontaneously, moves all 4 extremities. Psych: Cooperative IV line sites with no e.o infection. Assessment & Plan Remarks Assessment and Plan Fungemia in setting of bilateral UE DVT will treat as Septic thrombophlebitis. C.Parapsilosis fungal septic thrombophlebitis. Sepsis. HCAP with effusions. Staph epidermidis: likely pseudobacteremia/contaminant. Specimen from old line, already removed. Acute resp failure on vent Acute metabolic encephalopathy: appears resolving. Alcohol abuse: at risk for withdrawal. Acute rhabdomyolysis: ? seizures. Acute renal failure: sepsis, prerenal, rhabdomyolysis. Colitis clinically and radiologically ; likely ischemic - C diff negative Recs: DC Meropenem IV Start Cefepime. If continues to do well may consider coverage for aspiration PNA only with augmentin oral. Continue Zyvox change to oral (HCAP) Continue Diflucan for C.Parapsilosis fungal septic thrombophlebitis. C.parapsilosis susceptibilities and Diflucan S. Spoke with daughter and son at bedside - updated on current work-up and treatment. Discussed with the family possible vegetation on 1 of the valves. Patient not a candidate for FERNANDO at the present time given her respiratory status. We will discuss with family that this may need to be done at a later date especially if patient gets intubated or has recurrence of fungemia. Possible acceptance at [facility] per family. Piedad Corea MD Sep 02, 2017 16:17
--- NOTE | 2017-09-02 17:32 | HHI.HCPN ---
Reason for visit a. To assist with evaluation and management of symptoms including: dyspnea, weakness. b. To assist medical decision maker(s) with: better understanding of current medical conditions; weighing benefits/burdens of medical treatment options; making medical treatment decisions. . Subjective/Interval History Patient seen and examined in ICU. Daughter arrived at bedside during visit. T-max 98.5. Tolerating oxygen via nasal cannula oxygen 3LPM. Vital signs stable. 08/29/17 blood cultures no growth 4 days. ID, Dr. Essie Corea following. Plan for 2D Echo to evaluate for possible vegetation on heart valves. Patient is not a candidate for FERNANDO due to respiratory status. May consider in future if she requires reintubation or has recurrence of fungemia. Remains on Fluconazole. WBC 9.3, hemoglobin 10.1, platelet 515. Albumin 2.1. Patient only eating 10-25% of some meals and drinking some Ensure daily. PT notes indicate she was able to sit on side of bed today with 2 max assist. She tells me she was unable to stand. Reviewed she will need to increase nutritional intake in order to build strength. She is frustrated stating "I have never had a big appetite." Chest x-ray some improvement with the bibasilar infiltrates and effusions compared to prior study. Patient denies shortness of breath. Patient is awake and alert, answering questions appropriately. 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 She seems to have a good understanding of the current plan for echocardiogram and why she is not currently a candidate for FERNANDO. Patient remains hopeful for continued recovery, though is frustrated that everyone is telling her what to do. She wants to continue aggressive care for now. Also advised if she decides she does not want to pursue aggressive care she needs to speak with her family and medical team. . Family/friend interactions Brianne Mckeon LCSW and I spoke with daughterJessica outside room and at bedside. Medical update provided. Reviewed conversation with patient. Encouraged family that it is okay to leave the hospital periodically, that they do not need to stay overnight. She can communicate her needs and is being monitored. Offered support. Mika LUNA following for possible rehab, no definitive answer yet. Daughter is very appreciative of time spent. . Advance Directives Living Will: Never completed Health Care Surrogate: Never completed Durable Power of Tire Buffer: Never completed Advance Directive Specifics Health Care Surrogate(s): Living Will copy obtained. According to her Living Will she names daughter, Silvia Carvajal as primary HCS and son Jl Olson as alternate HCS. . Documented care wishes: Standard Living Will on chart. . Significant change in goals: FULL CODE. Goals remain aggressive, hopeful for transfer to [facility] for rehab if accepted. . Objective Vital Signs Date Time Temp Pulse Resp B/P (MAP) Pulse Ox O2 Delivery O2 Flow Rate FiO2 09/02/17 16:00 75 09/02/17 16:00 98.5 75 150/78 (102) 09/02/17 15:00 84 09/02/17 14:00 102 157/98 (117) 09/02/17 14:00 102 09/02/17 13:00 83 09/02/17 13:00 83 151/72 (98) 09/02/17 12:00 74 09/02/17 12:00 98.0 74 141/73 (95) 09/02/17 11:00 70 09/02/17 11:00 70 130/74 (92) 95 09/02/17 10:00 76 09/02/17 10:00 76 129/72 (91) 94 09/02/17 09:00 86 09/02/17 09:00 86 153/72 (99) 09/02/17 08:26 97 Nasal Cannula 4.00 09/02/17 08:00 125 09/02/17 08:00 98.7 125 144/80 (101) 77 09/02/17 06:00 84 09/02/17 04:00 91 Nasal Cannula 3.00 09/02/17 04:00 98.0 86 19 142/81 (101) 92 09/02/17 04:00 86 09/02/17 02:00 81 09/02/17 00:00 70 09/02/17 00:00 97.9 70 18 139/67 (91) 96 09/02/17 00:00 95 Nasal Cannula 3.00 09/01/17 22:00 82 09/01/17 20:15 96 Nasal Cannula 3.00 09/01/17 20:00 116 09/01/17 20:00 98.7 116 16 152/82 (105) 95 09/01/17 20:00 92 Nasal Cannula 3.00 3/5/18 18:00 114 Intake & Output 09/02/17 09/02/17 07:00 19:00 Intake Total 600 ml Output Total 2250 ml Balance -1650 ml Intake Oral 500 ml IV Total 100 ml Output Urine Total 2250 ml # Bowel Movements 1 Physical Exam CONSTITUTIONAL/GENERAL: This is a well nourished patient, in no apparent distress. TUBES/LINES/DRAINS: NC, PIV, catheter, SCDs. SKIN: No jaundice, rashes, or lesions. Ecchymoses on upper extremities. Skin temperature appropriate. Not diaphoretic. CARDIOVASCULAR: Irregularly irregular. A. Fib on monitor. RESPIRATORY/CHEST: Non labored respirations in NC. Diminished bilateral bases. scattered rhonchi. GASTROINTESTINAL: Abdomen soft, non distended. + bowel sounds. GENITOURINARY: Without palpable bladder distension. Catheter in place. MUSCULOSKELETAL: Extremities with edema. Generalized weakness. moves all extremities. NEUROLOGICAL: Awake and alert, soft voice improving, follows commands, answers questions appropriately. PSYCHIATRIC: denies anxiety. . Diagnostic Tests Laboratory Laboratory Tests Test 08/31/17 04:57 09/01/17 05:20 09/01/17 05:30 09/02/17 04:00 Blood Urea Nitrogen 44 MG/DL (7-18) 42 MG/DL (7-18) 31 MG/DL (7-18) Creatinine 1.04 MG/DL (0.50-1.00) 0.94 MG/DL (0.50-1.00) 0.77 MG/DL (0.50-1.00) Random Glucose 148 MG/DL (74-106) 106 MG/DL (74-106) 168 MG/DL (74-106) Total Protein 5.2 GM/DL (6.4-8.2) 5.3 GM/DL (6.4-8.2) Albumin 1.9 GM/DL (3.4-5.0) 2.1 GM/DL (3.4-5.0) Calcium Level 7.6 MG/DL (8.5-10.1) 7.3 MG/DL (8.5-10.1) 7.6 MG/DL (8.5-10.1) Alkaline Phosphatase 57 U/L (45-117) 85 U/L (45-117) Aspartate Amino Transf (AST/SGOT) 41 U/L (15-37) 29 U/L (15-37) Alanine Aminotransferase (ALT/SGPT) 30 U/L (10-53) 28 U/L (10-53) Total Bilirubin 0.4 MG/DL (0.2-1.0) 0.4 MG/DL (0.2-1.0) Sodium Level 141 MEQ/L (136-145) 140 MEQ/L (136-145) 137 MEQ/L (136-145) Potassium Level 3.6 MEQ/L (3.5-5.1) 3.4 MEQ/L (3.5-5.1) 3.4 MEQ/L (3.5-5.1) Chloride Level 106 MEQ/L (98-107) 101 MEQ/L (98-107) 99 MEQ/L (98-107) Carbon Dioxide Level 23.7 MEQ/L (21.0-32.0) 26.6 MEQ/L (21.0-32.0) 29.4 MEQ/L (21.0-32.0) Anion Gap 11 MEQ/L (5-15) 12 MEQ/L (5-15) 9 MEQ/L (5-15) Estimat Glomerular Filtration Rate 51 ML/MIN (>89) 57 ML/MIN (>89) 72 ML/MIN (>89) Phosphorus Level 3.3 MG/DL (2.5-4.9) 3.4 MG/DL (2.5-4.9) 2.3 MG/DL (2.5-4.9) Magnesium Level 1.7 MG/DL (1.5-2.5) 1.6 MG/DL (1.5-2.5) 1.8 MG/DL (1.5-2.5) White Blood Count 10.1 TH/MM3 (4.0-11.0) 9.3 TH/MM3 (4.0-11.0) Red Blood Count 2.95 MIL/MM3 (4.00-5.30) 3.19 MIL/MM3 (4.00-5.30) Hemoglobin 9.7 GM/DL (11.6-15.3) 10.1 GM/DL (11.6-15.3) Hematocrit 27.7 % (35.0-46.0) 30.4 % (35.0-46.0) Mean Corpuscular Volume 94.0 FL (80.0-100.0) 95.2 FL (80.0-100.0) Mean Corpuscular Hemoglobin 32.7 PG (27.0-34.0) 31.7 PG (27.0-34.0) Mean Corpuscular Hemoglobin Concent 34.8 % (32.0-36.0) 33.3 % (32.0-36.0) Red Cell Distribution Width 14.5 % (11.6-17.2) 14.5 % (11.6-17.2) Platelet Count 436 TH/MM3 (150-450) 515 TH/MM3 (150-450) Mean Platelet Volume 8.9 FL (7.0-11.0) 8.7 FL (7.0-11.0) Neutrophils (%) (Auto) 86.0 % (16.0-70.0) 90.7 % (16.0-70.0) Lymphocytes (%) (Auto) 7.3 % (9.0-44.0) 5.2 % (9.0-44.0) Monocytes (%) (Auto) 6.5 % (0.0-8.0) 4.0 % (0.0-8.0) Eosinophils (%) (Auto) 0.0 % (0.0-4.0) 0.0 % (0.0-4.0) Basophils (%) (Auto) 0.2 % (0.0-2.0) 0.1 % (0.0-2.0) Neutrophils # (Auto) 8.7 TH/MM3 (1.8-7.7) 8.4 TH/MM3 (1.8-7.7) Lymphocytes # (Auto) 0.7 TH/MM3 (1.0-4.8) 0.5 TH/MM3 (1.0-4.8) Monocytes # (Auto) 0.7 TH/MM3 (0-0.9) 0.4 TH/MM3 (0-0.9) Eosinophils # (Auto) 0.0 TH/MM3 (0-0.4) 0.0 TH/MM3 (0-0.4) Basophils # (Auto) 0.0 TH/MM3 (0-0.2) 0.0 TH/MM3 (0-0.2) CBC Comment AUTO DIFF DIFF FINAL Differential Total Cells Counted 100 Neutrophils % (Manual) 91 % (16-70) Band Neutrophils % 1 % (0-6) Lymphocytes % 4 % (9-44) Monocytes % 3 % (0-8) Neutrophils # (Manual) 9.4 TH/MM3 (1.8-7.7) Myelocytes 1 % (0-0) Differential Comment FINAL DIFF MANUAL Platelet Estimate NORMAL (NORMAL) Platelet Morphology Comment ENLARGED (NORMAL) Polychromasia 2.8 % (0.0-1.9) Basophilic Stippling MOD (NORMAL) Ovalocytes 1+ (NORMAL) Protein Corrected Calcium 8.3 MG/DL (8.5-10.1) Digoxin Level 0.6 NG/ML (0.8-2.0) B-Type Natriuretic Peptide 1090 PG/ML (0-100) Result Diagram: 09/02/17 0400 09/02/17 0400 Microbiology Microbiology Date/Time Source Procedure Growth Status 08/29/17 17:23 Blood Peripheral Aerobic Blood Culture - Preliminary NO GROWTH IN 4 DAYS Resulted 08/29/17 17:23 Blood Peripheral Anaerobic Blood Culture - Preliminary NO GROWTH IN 4 DAYS Resulted 08/29/17 15:00 Fluid Pleural Fluid Fungal Smear - Final NO FUNGAL ELEMENTS SEEN. Resulted 08/29/17 15:00 Fluid Pleural Fluid Fungal Culture Pending Resulted 08/15/17 02:28 Stool Stool Stool Occult Blood (MARCIA) - Final HEMOCCULT NEGATIVE Complete 08/21/17 15:20 Sputum Endotracheal Gram Stain - Final Complete 08/21/17 15:20 Sputum Endotracheal Sputum Culture - Final NO GROWTH IN 48 HOURS. Complete 08/21/17 13:45 Urine Catheterized Urine Urine Culture - Final NO GROWTH IN 48 HOURS. Complete Imaging Last Impressions Chest X-Ray 09/02/17 0000 Signed Impressions: Service Date/Time: Saturday, September 02, 2017 09:41 - CONCLUSION: There has been some improvement with the bibasilar infiltrates and effusions compared to the prior study. Samuel Peralta MD Thoracentesis 08/29/17 0000 Signed Impressions: Service Date/Time: Tuesday, August 29, 2017 14:48 - CONCLUSION: Uncomplicated CT-guided thoracentesis. Fluid was sent for studies. Juan J Joel MD FACR Chest CT 08/29/17 0000 Signed Impressions: Service Date/Time: Tuesday, August 29, 2017 14:48 - CONCLUSION: Following thoracentesis there is decreasing amount of effusion. Significant consolidation persists. There is no pneumothorax. Juan J Joel MD FACR Abdomen/Pelvis CT 08/23/17 1426 Signed Impressions: Service Date/Time: Wednesday, August 23, 2017 22:50 - CONCLUSION: 1. Suspected mild diffuse colitis, nonspecific but presumably infectious or inflammatory. No obstruction or abscess. 2. Trace ascites about the same there is worsening anasarca and worsening pleural effusions and consolidation of both lung bases. 3. Tiny nonobstructing stone of the right kidney and a generally benign appearing cyst lower pole the left kidney. No evidence of obstructive uropathy or other etiology for acute renal failure. 4. Atherosclerotic aorta. No aneurysm. Adan Nunes MD Upper Extremity Ultrasound 08/23/17 0000 Signed Impressions: Service Date/Time: Wednesday, August 23, 2017 16:25 - CONCLUSION: Bilateral upper extremity DVT as described above. Samuel Peralta MD Lower Extremity Ultrasound 08/23/17 0000 Signed Impressions: Service Date/Time: Wednesday, August 23, 2017 15:50 - CONCLUSION: 1. There is incomplete compression of the left common femoral vein raising suspicion for nonocclusive thrombus. This vessel, however, still demonstrates normal Doppler blood flow and respiratory variability. 2. The remaining veins of the left lower extremity are patent and the entire right lower extremity is patent without thrombus. Adan Machuca MD Abdomen X-Ray 08/21/17 0600 Signed Impressions: Service Date/Time: July 03:35 - CONCLUSION: The bowel gas pattern remains fairly unremarkable. Jl Stanley MD Lumbar Puncture Fluoroscopy 08/15/17 0000 Signed Impressions: Service Date/Time: Tuesday, August 15, 2017 15:36 - CONCLUSION: 1. Uncomplicated fluoroscopically guided lumbar puncture. 2. Please note, requested opening pressures were not obtained due to technical difficulties. Shashi Moreno MD Brain MRI 08/15/17 0000 Signed Impressions: Service Date/Time: Tuesday, August 15, 2017 16:57 - CONCLUSION: 1. 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 2. Mild stenosis in the upper cervical spine as above. Esau Martell MD Abdomen Ultrasound 08/15/17 0000 Signed Impressions: Service Date/Time: Tuesday, August 15, 2017 10:40 - CONCLUSION: 1. No abnormality is identified to explain the clinical symptoms. There is no hydronephrosis. 2. The liver is normal in size and echotexture. Adan Machuca MD Head CT 08/14/17 2232 Signed Impressions: Service Date/Time: July 22:54 - CONCLUSION: Unremarkable study. K. Yovani Villagomez MD . Procedures * 08/25/17 - extubated. * 08/15/17-lumbar puncture by IR * 08/15/17 - right IJ central line, intubated. . Assessment and Plan Disease Oriented Problem List: (1) Acute respiratory failure Comment: now on NC (2) Tachycardia (3) Alcohol abuse (4) Atrial fibrillation Symptom Scale: (1) Pain 0-10 Scale: 0 (2) Dyspnea 0-10 Scale: 0 (3) Weakness 0-10 Scale: 0 Comment: continue PT/ OT Pertinent Non-Medical Issues Psychosocial: . Lives with Nicole flores. Has 3 daughters and 1 son. Spiritual: Buddhism david. Legal: According to her Living Will she names Silvia flores as primary HCS and son Jl Olson as alternate HCS. Ethical issues impacting care: No known concerns at this time. . Important Contacts * Silvia "Nicole" Toby, daughter/ HCS: [phone] * Jl Olson, son/ alternate HCS: or [phone] * Jessica, daughter: [phone] * Chelsea, daughter: [phone] . Prognosis Ms. Olson is an 82 year old admitted with rhabdomyolysis, septic shock uncertain etiology, dehydration, renal failure. At this point we will need additional information to determine overall prognosis. Given her advanced age, she remain high risk for further setbacks or decline. . Code Status: Full Code Plan * Patient appears to have some insight and judgment regarding her current health condition, recommend shared medical decision making as her mentation seems to wax and wane. According to her Living Will she names Silvia flores as primary HCS and son Jl Olson as alternate HCS. * FULL CODE. * Goals remain aggressive. Patient hopes for continued rehab ([facility]) and then DC home. * SYMPTOMS: Dyspnea: Medically extubated 08/25/17 am. Denies SOB on NC. Pain: potential sources include intubation, chronic neck pain, infection, etc. Denies pain today. Has PRN Oxycodone, none given. PRN Morphine 1mg IV available, last dose 08/31/17 8278. Anxiety: Off all sedation. Denies. Weakness: Continue PT/OT. Decreased appetite: poor oral intake, eating 10-25% of some meals and Ensure, encouraged increased oral intake. No new medication recommendations at this time. * Palliative care will continue to throughout hospital course to assist with clarification of goals. . Attestation To help prompt me to consider important information that might be impacting today's encounter and assessment, information from prior notes written by myself or my colleagues may have been "brought forward" into today's note. My signature on this note, however, is an attestation that I personally performed the exam, history, and/or decision-making noted today, and, unless otherwise indicated, the interactions with patient, family, and staff as well as the review of records all occurred today. I also attest that the listed assessment and stated plan reflect my best clinical judgment today based on the combination of historical information, prior notes, and today's exam/ interactions. When time spent is documented, it refers only to time spent today by the signer, or if indicated, combined time spent today by collaborating physician/nurse practitioner. Vashti Riley Sep 02, 2017 17:31
[2017-09-03] VITALS (14 sets, daily range): BP systolic 116–156; BP diastolic 66–86; PULSE 56–96; RESP 20–22; TEMP 89–98.9; O2SAT 80–95
[2017-09-03] MEDS: methylPREDNISolone SOD SUCC 40 MG/1 ML VIAL IV PUSH SCH ×2 (01:00→12:04)
[2017-09-03] MEDS: CEFEPIME INJ 2,000 MG in SODIUM CHLORIDE 0.9% INJ 100 ML IV SCH ×2 (01:00→12:05)
[2017-09-03] MEDS: LINEZOLID 600 MG TAB PO SCH ×2 (01:55→14:50)
[2017-09-03] MEDS: POTASSIUM CHLORIDE 25 MEQ EFFERVESCENT TAB NG SCH ×3 (04:00→20:22)
[2017-09-03] MEDS: RESP: IPRATROPIUM 0.5 MG/2.5 ML NEB NEB SCH ×5 (04:00→19:44)
[2017-09-03 05:38] LABS: AUTOMATED NEUTROPHIL # 5.9 TH/MM3 (1.8-7.7); BASOPHIL % 0.3 % (0.0-2.0); EOSINOPHIL % 0.1 % (0.0-4.0); HEMATOCRIT 30.8 % (35.0-46.0); HEMOGLOBIN 10.4 GM/DL (11.6-15.3); LYMPH % 11.2 % (9.0-44.0); LYMPHOCYTE # 0.8 TH/MM3 (1.0-4.8); MEAN CELL VOLUME 94.8 FL (80.0-100.0); MEAN CORPUSCULAR HEMOGLOBIN 32.1 PG (27.0-34.0); MEAN CORPUSCULAR HGB CONC 33.8 % (32.0-36.0); MEAN PLATELET VOLUME 8.6 FL (7.0-11.0); MONOCYTE # 0.7 TH/MM3 (0-0.9); NEUT % 78.4 % (16.0-70.0); PLATELET COUNT 466 TH/MM3 (150-450); RED BLOOD COUNT 3.25 MIL/MM3 (4.00-5.30); RED CELL DISTRIBUTION WIDTH 14.8 % (11.6-17.2); WHITE BLOOD COUNT 7.5 TH/MM3 (4.0-11.0)
[2017-09-03] MEDS: DILTIAZEM HCL 60 MG TAB PO SCH ×4 (06:02→23:06)
[2017-09-03] MEDS: ARTIFICIAL TEARS OPTH SOLN 15 ML BTL EACH EYE SCH ×3 (06:02→20:23)
[2017-09-03] MEDS: METOPROLOL TARTRATE 25 MG TAB PO SCH (06:02)
[2017-09-03 06:08] LABS: BICARBONATE 30.2 MEQ/L (21.0-32.0); CALCIUM 7.6 MG/DL (8.5-10.1); CREATININE 0.73 MG/DL (0.50-1.00); PHOSPHORUS 2.2 MG/DL (2.5-4.9)
--- NOTE | 2017-09-03 07:38 | HHI.CCPN ---
Subjective Remarks/Hospital Course Patient is an 82-year-old female with past medical history of irritable bowel syndrome, hypertension, arthritis, diverticulitis who presented to the [facility] ED after she was found lying on her bed with urine and feces all around her bed. In addition, the patient was altered and obtunded. Most of the history was obtained from reviewing the medical records. Her laboratory data showed acute renal failure with BUN of 52, creatinine 3.39 and lactic acidosis with a lactic acid level of 6.3. In addition, the patient was in rhabdomyolysis with elevated CK at 3855. She was admitted under the hospitalist service; however, a [facility] was called due to worsening mental status, hypertension and hypoxemia. She was transferred to [facility] and critical care medicine was consulted for critical care management. When seen, the patient was lethargic, not following any commands, hypotensive. She was subsequently intubated by myself and a right internal jugular central line was placed for hemodynamic monitoring. ABG post intubation showed a pH of 7.31, co2 of 30, pA02 of 117, bicarbonate 15 and saturation of 96% on PRVC rate of 14, tidal volume 350 with IT:1, PEEP 5 and FIO2 of 100%. She was given two liter boluses of normal saline and placed on a bicarbonate drip. Her lactic acid level is trending down and is currently 3.4 from 6.3 on arrival. In addition, her renal function is improving with IV hydration. Her creatinine level is 2.29 from 3.39. Due to hypotension, Levophed was started. A CT scan of the brain in the emergency department was unremarkable. Her initial chest x-ray showed minimal basilar atelectasis, no effusions or pneumothoraces. According to the patient's family, the patient has been intermittently binge drinking. In addition, they report her having diarrhea for a few days. She had a low-grade fever with a temperature of 100.2 last night. 08/16 Patient is sedated with Fentanyl drip intubated and on Levophed 5 mics. On Bicarb drip. MRI brain yesterday showed small lacunar infarcts in left cerebellar hemisphere and right parietal lobe. Lp showed clear CSF, 17 wbc. Afebrile.Renal function worse today with Cr: 2.64 from 2.29 08/17 Patient remains sedated and intubated. On Bicarb drip. Off Levophed renal function slightly worse today with Cr: 2.82 from 2.64 and UOP: 550 ml in 24 hrs 08/18 Patient bit through ETT overnight s/p new ETT placement using tube exchanger. Sedated with Diprivan and Fentanyl. Afebrile. Renal function is improving with Cr: 1.97 from 2.82. On Bicarb drip. Tube feeds held for possible colonoscopy today. 08/19: Remains sedated, orally intubated on mechanical ventilation. Colonoscopy done yesterday revealed ischemic colitis. Has been evaluated by general surgery. Patient went into A. fib with RVR last night and was started on a Cardizem drip. On Levophed for hypotension 08/20: Remains sedated, orally intubated on mechanical ventilation. Started on TPN on 08/19. Cardizem drip turned off this morning. Received 1 dose of digoxin yesterday. 08/21: Remains sedated, orally intubated on mechanical ventilation. On TPN. Ordered Precedex as well as digoxin daily. Starting trophic feeds today. 08/22 Patient remains intubated on Precedex and Fentanyl infusion for sedation. afebrile. 08/23 WBC up to 17.7. Temp max 102.2. Blood culture sent today peripherally ( labelled as line draw initially but was not drawn from a line, lab notified to re-label). Tolerating trophic feeds. Awake and on CPAP 10/5 with RSBI 50s, became labored and desat with 5/5. Denies abdominal pain. Subjective: 08/24: Tmax 102.7 overnight. Currently 100.6. Noted yeast growing from blood culture 08/21. Remains in atrial fibrillation. Potassium currently been replaced. Currently only has once peripheral IV access. Will need central line placed later this afternoon. 08/25 Patient is awake and alert on CPAP trials. T: 101.1 last night. On Heparin and Bumex drips 08/26 Patient was extubated yesterday on 3L oxygen. She went into Afib with RVR last night given Labetalol. Afebrile. 08/27: Patient is slightly tachypneic, but maintaining O2 sat. chest x-ray shows at least moderate sized pleural effusions. Start Lasix 40 mg IV every 12 [address] Doe catheter for accurate intake output and also appears that patient has urinary retention. Remains in atrial fibrillation with RVR, on Cardizem at 15 mg per hour. 3: On BiPAP overnight. Currently on 4 L nasal cannula. Fluctuating neurologic status consistent with delirium. Remains on Cardizem drip at 5 mg per hour for A. fib with RVR. Diuresing well with Lasix. 3: Respiratory status borderline with tachypnea. Requiring intermittent BiPAP. Started on Precedex for anxiety. Dropped blood pressure. 1 unit PRBCs ordered. Solu-Medrol 125 mg IV 1 dose ordered as well. Scheduled for CT- guided thoracentesis for right side today. Heparin GTT held for thoracentesis. Chest x-ray with bilateral pleural effusions despite diuresis. 08/30: Seems to be breathing a little better. Was on BiPAP overnight. Currently on nasal cannula. Knows she is at the hospital and follows commands appropriately. Underwent bilateral thoracentesis yesterday with drainage of 500 cc from right side and 300 cc from left. On Precedex which appears to be working well for anxiety. 08/31: Remains on nasal cannula. Did not use BiPAP at night. Awake and alert. Following commands appropriately. By mouth intake remains borderline. On Precedex 0.2 mics per KG per hour. 09/01 Patient is on 3L oxygen with good sats, hypertensive Remains on Precedex 0.2 mics per KG per hour 09/02 No events overnight. Off Precedex drip. Afebrile. On 3L oxygen. 09/03 Patient is awake, alert remains on 3L oxygen, Afebrile. Requesting something to help her sleep. Objective Vital Signs Date Time Temp Pulse Resp B/P (MAP) Pulse Ox O2 Delivery O2 Flow Rate FiO2 09/03/17 06:00 85 09/03/17 04:00 98.7 20 156/79 (104) 94 09/03/17 04:00 Nasal Cannula 3.00 09/01/17 04:00 60 Intake and Output 09/03/17 09/03/17 09/04/17 08:00 16:00 00:00 Intake Total 500 ml Output Total 2125 ml Balance -1625 ml Result Diagram: 09/03/17 0423 09/03/17 0423 Other Results Laboratory Tests Test 09/03/17 04:23 White Blood Count 7.5 TH/MM3 Red Blood Count 3.25 MIL/MM3 Hemoglobin 10.4 GM/DL Hematocrit 30.8 % Mean Corpuscular Volume 94.8 FL Mean Corpuscular Hemoglobin 32.1 PG Mean Corpuscular Hemoglobin Concent 33.8 % Red Cell Distribution Width 14.8 % Platelet Count 466 TH/MM3 Mean Platelet Volume 8.6 FL Neutrophils (%) (Auto) 78.4 % Lymphocytes (%) (Auto) 11.2 % Monocytes (%) (Auto) 10.0 % Eosinophils (%) (Auto) 0.1 % Basophils (%) (Auto) 0.3 % Neutrophils # (Auto) 5.9 TH/MM3 Lymphocytes # (Auto) 0.8 TH/MM3 Monocytes # (Auto) 0.7 TH/MM3 Eosinophils # (Auto) 0.0 TH/MM3 Basophils # (Auto) 0.0 TH/MM3 CBC Comment DIFF FINAL Differential Comment Blood Urea Nitrogen 28 MG/DL Creatinine 0.73 MG/DL Random Glucose 110 MG/DL Calcium Level 7.6 MG/DL Phosphorus Level 2.2 MG/DL Magnesium Level 2.0 MG/DL Sodium Level 138 MEQ/L Potassium Level 4.1 MEQ/L Chloride Level 99 MEQ/L Carbon Dioxide Level 30.2 MEQ/L Anion Gap 9 MEQ/L Estimat Glomerular Filtration Rate 76 ML/MIN Imaging Last Impressions Chest X-Ray 08/31/17 0600 Signed Impressions: Service Date/Time: Thursday, August 31, 2017 03:19 - CONCLUSION: Persistent bilateral lower lung consolidation and pleural effusions. Matt Jesus MD Thoracentesis 08/29/17 0000 Signed Impressions: Service Date/Time: Tuesday, August 29, 2017 14:48 - CONCLUSION: Uncomplicated CT-guided thoracentesis. Fluid was sent for studies. Juan J Joel MD FACR Chest CT 08/29/17 0000 Signed Impressions: Service Date/Time: Tuesday, August 29, 2017 14:48 - CONCLUSION: Following thoracentesis there is decreasing amount of effusion. Significant consolidation persists. There is no pneumothorax. Juan J Joel MD FACR Abdomen/Pelvis CT 08/23/17 1426 Signed Impressions: Service Date/Time: Wednesday, August 23, 2017 22:50 - CONCLUSION: 1. Suspected mild diffuse colitis, nonspecific but presumably infectious or inflammatory. No obstruction or abscess. 2. Trace ascites about the same there is worsening anasarca and worsening pleural effusions and consolidation of both lung bases. 3. Tiny nonobstructing stone of the right kidney and a generally benign appearing cyst lower pole the left kidney. No evidence of obstructive uropathy or other etiology for acute renal failure. 4. Atherosclerotic aorta. No aneurysm. Adan Nunes MD Upper Extremity Ultrasound 08/23/17 0000 Signed Impressions: Service Date/Time: Wednesday, August 23, 2017 16:25 - CONCLUSION: Bilateral upper extremity DVT as described above. Samuel Peralta MD Lower Extremity Ultrasound 08/23/17 0000 Signed Impressions: Service Date/Time: Wednesday, August 23, 2017 15:50 - CONCLUSION: 1. There is incomplete compression of the left common femoral vein raising suspicion for nonocclusive thrombus. This vessel, however, still demonstrates normal Doppler blood flow and respiratory variability. 2. The remaining veins of the left lower extremity are patent and the entire right lower extremity is patent without thrombus. Adan Machuca MD Abdomen X-Ray 08/21/17 0600 Signed Impressions: Service Date/Time: July 03:35 - CONCLUSION: The bowel gas pattern remains fairly unremarkable. Jl Stanley MD Lumbar Puncture Fluoroscopy 08/15/17 0000 Signed Impressions: Service Date/Time: Tuesday, August 15, 2017 15:36 - CONCLUSION: 1. Uncomplicated fluoroscopically guided lumbar puncture. 2. Please note, requested opening pressures were not obtained due to technical difficulties. Shashi Moreno MD Brain MRI 08/15/17 0000 Signed Impressions: Service Date/Time: Tuesday, August 15, 2017 16:57 - CONCLUSION: 1. 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 2. Mild stenosis in the upper cervical spine as above. Esau Martell MD Abdomen Ultrasound 08/15/17 0000 Signed Impressions: Service Date/Time: Tuesday, August 15, 2017 10:40 - CONCLUSION: 1. No abnormality is identified to explain the clinical symptoms. There is no hydronephrosis. 2. The liver is normal in size and echotexture. Adan Machuca MD Head CT 08/14/172 Signed Impressions: Service Date/Time: July 22:54 - CONCLUSION: Unremarkable study. Josseline Villagomez MD Objective Remarks GENERAL: 82-year-old female currently lying in bed on nasal cannula SKIN: Warm and dry. HEAD: Normocephalic. EYES: Pupils equal and reactive bilaterally about 3 mm. Pallor present, No scleral icterus. No injection or drainage. NECK: Supple, trachea midline. No JVD or lymphadenopathy. Orally intubated. Right IJ site without erythema CARDIOVASCULAR: S1-S2 irregularly irregular. No murmurs appreciated RESPIRATORY: On nasal cannula, diminished breath sounds bilateral bases. Scattered rhonchi. No wheezing appreciated. GASTROINTESTINAL: Abdomen soft, non-tender, minimally distended. Bowel sounds hypoactive but present. No guarding or rigidity MUSCULOSKELETAL: Trace edema. 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 Oxycodone 5 mg every 6 hours PRN 08/15: CT brain negative for acute intracranial process MRI brain: Small lacunar infarcts in left cerebellar hemisphere and right parietal lobe EEG: Severe encephalopathy Continue thiamine, multivitamin and folic acid daily. Repeat EEG 08/21.- generalized slowing, no epileptiform features Neuro is following- Dr. Danielle LP showed clear CSF, 17 WBC, TP:45.2 Pulm: Acute respiratory failure Bilateral pleural effusions Continue with oxygen keep sat >92% Bronchodilators Incentive spirometry Q1 hr while awake. Acapella with nebs. CXR yesterday showed overall improvements Status post bilateral CT-guided thoracentesis by IR on 08/29 with drainage of 500 cc of pleural fluid on right and 300 cc from left(transudative fluid) Solu-Medrol 125 mg IV 1 dose on 08/29 for worsening respiratory status with possible underlying COPD. Solu-Medrol 40 mg IV every 12 hourly started 08/30 CV: Atrial fibrillation, with RVR Systolic heart failure unknown if acute or chronic Elevated troponin Fluid overload Hypotension Monitor HR and BP keep MAP>65mmHg. Increase Lopressor 50mg Q12, Digoxin 0.125 mg daily. Digoxin level 0.6 on 09/01. Cardizem 60mg Q6, add Clonidine0.1mg Q8 Repeat Echo showed EF 45-50%, Lateral leaflet with a 2 mm mobile density, consistent with ? endocarditis Continue aspirin 81 mg by mouth daily/home medication Renal/FEN/: Acute kidney injury, resolved Lactic acidemia, resolved Rhabdomyolysis resolved Right-sided nephrolithiasis/nonobstructing Left renal cyst Monitor renal function, intake and output and avoid nephrotoxins. Renal has followed-Dr. Figueroa, US abdomen: No hydronephrosis CT Abd/pelvis revealed nonobstructing right-sided nephrolithiasis and left renal cyst. Decrease Lasix 40mg daily. Will need Phos replacement today GI: Ischemic colitis Severe acute on Chronic protein energy malnutrition AST elevation secondary to alcohol use Internal and external hemorrhoids PO diet per speech On famotidine 20 mg twice a day for GI prophylaxis. Monitor LFT's( resolved) US liver: No abnormalities identified GI is following- colonoscopy showed diffuse colitis in the sigmoid colon and descending colon; Necrotic, dusky appearing mucosa. Consistent with severe ischemic colitis. General surgery, Dr. Guadlaupe -plan to treat conservatively unless patient worsens clinically. Repeat CT abdomen and pelvis 08/23 mild diffuse colitis ID: Septic shock resolved UTI Ischemic colitis Fungemia Abx per ID - Dr. Davis/ Anmol. On Cefepime, Diflucan, Zyvox. Monitor for signs of infections ( Fever, WBC). Seen by Opth no evidence of endophthalmitis Pertinent cultures 08/23 - blood culture by line (actually peripheral) - coag neg staph 08/21 - blood culture - no growth 08/21 - sputum - no growth 08/21 - - no growth 08/21 - blood culture - Yeast Felipa parapsilosis 08/15 - CSF - negative 08/15 - sputum - no growth 08/14 - blood cultures 2 and UA - no growth C-diff PCR is negative, stool studies negative s/p LP showed clear CSF, 17 WBC, TP:45.2, HSV DNA PCR neg Endo: Hyperglycemia of critical illness/steroid SSI with Novolin R medium with Accu-Chek every 4 hours for glycemic control. TSH: 1.15. Heme: Leukocytosis Normocytic anemia B/L UE DVT Possible left common femoral vein DVT Left cephalic/basilic to professional and right superficial cephalic thrombus Monitor CBC, coags- heparin drip stopped on 08/30 and started on Lovenox 100 mg subcutaneously daily for full anticoagulation. Iron sulfate 300 mg twice a day. 1 unit PRBCs ordered to be transfused on 3/2 GI prophylaxis with famotidine and DVT prophylaxis with SCDs, Lovenox 100mg daily Lines: Peripheral IV's level 3 Don Youngblood MD Sep 03, 2017 07:38
[2017-09-03] MEDS: INSULIN NovoLIN REGULAR SUPPLEMENTAL SCALE SQ SCH ×4 (08:00→20:28)
[2017-09-03] MEDS: FERROUS SULFATE 300 MG /5ML UDC PO SCH ×2 (08:09→20:23)
[2017-09-03] MEDS: FAMOTIDINE 20 MG TAB NG SCH ×2 (08:10→20:23)
[2017-09-03] MEDS: THIAMINE HCL 100 MG TAB PO SCH (08:10)
[2017-09-03] MEDS: FOLIC ACID 1 MG TAB PO SCH (08:10)
[2017-09-03] MEDS: ASPIRIN 81 MG CHEW TAB OG-TUBE SCH (08:10)
[2017-09-03] MEDS: MULTIVITAMIN TAB PO SCH (08:10)
[2017-09-03] MEDS: DIGOXIN SOLUTION 0.125 MG/2.5 ML CUP PO SCH (08:10)
[2017-09-03] MEDS: cloNIDine HCL 0.2 MG TAB PO SCH ×3 (08:11→23:06)
[2017-09-03] MEDS: SODIUM CHLORIDE 0.9% FLUSH 10 ML FLUSH IV FLUSH SCH ×3 (08:12→20:23)
[2017-09-03] MEDS: METOPROLOL TARTRATE 50 MG TAB PO SCH ×2 (08:20→20:23)
[2017-09-03] MEDS: FLUCONAZOLE 400 MG PREMIX BAG 200 ML IV SCH ×2 (08:21→10:08)
[2017-09-03] MEDS ORDERED: FUROSEMIDE 40 MG/4 ML VIAL IV PUSH SCH (09:00)
[2017-09-03] MEDS ORDERED: ALPRAZolam 0.25 MG TAB PO ONE (09:00)
[2017-09-03] MEDS: ENOXAPARIN SODIUM 100 MG/ML SYRINGE SQ SCH (14:50)
[2017-09-03] MEDS: NYSTAT/DIPHENHY/LIDO MOUTHWASH (Adult) 120ML SWISH-SPIT PRN (21:49)
[2017-09-04] VITALS (22 sets, daily range): BP systolic 115–151; BP diastolic 64–98; PULSE 70–102; RESP 12–20; TEMP 98–98.3; O2SAT 90–98
[2017-09-04] MEDS: methylPREDNISolone SOD SUCC 40 MG/1 ML VIAL IV PUSH SCH ×3 (00:32→23:57)
[2017-09-04] MEDS: RESP: IPRATROPIUM 0.5 MG/2.5 ML NEB NEB SCH ×7 (00:33→23:55)
[2017-09-04] MEDS: CEFEPIME INJ 2,000 MG in SODIUM CHLORIDE 0.9% INJ 100 ML IV SCH (00:33)
[2017-09-04] MEDS: LINEZOLID 600 MG TAB PO SCH (00:33)
[2017-09-04] MEDS: POTASSIUM CHLORIDE 25 MEQ EFFERVESCENT TAB NG SCH (02:59)
[2017-09-04] MEDS: ARTIFICIAL TEARS OPTH SOLN 15 ML BTL EACH EYE SCH ×3 (05:04→21:06)
[2017-09-04] MEDS: DILTIAZEM HCL 60 MG TAB PO SCH ×4 (05:22→23:57)
--- NOTE | 2017-09-04 07:19 | HHI.CCPN ---
Subjective Remarks/Hospital Course Patient is an 82-year-old female with past medical history of irritable bowel syndrome, hypertension, arthritis, diverticulitis who presented to the [facility] ED after she was found lying on her bed with urine and feces all around her bed. In addition, the patient was altered and obtunded. Most of the history was obtained from reviewing the medical records. Her laboratory data showed acute renal failure with BUN of 52, creatinine 3.39 and lactic acidosis with a lactic acid level of 6.3. In addition, the patient was in rhabdomyolysis with elevated CK at 3855. She was admitted under the hospitalist service; however, a [facility] was called due to worsening mental status, hypertension and hypoxemia. She was transferred to [facility] and critical care medicine was consulted for critical care management. When seen, the patient was lethargic, not following any commands, hypotensive. She was subsequently intubated by myself and a right internal jugular central line was placed for hemodynamic monitoring. ABG post intubation showed a pH of 7.31, co2 of 30, pA02 of 117, bicarbonate 15 and saturation of 96% on PRVC rate of 14, tidal volume 350 with IT:1, PEEP 5 and FIO2 of 100%. She was given two liter boluses of normal saline and placed on a bicarbonate drip. Her lactic acid level is trending down and is currently 3.4 from 6.3 on arrival. In addition, her renal function is improving with IV hydration. Her creatinine level is 2.29 from 3.39. Due to hypotension, Levophed was started. A CT scan of the brain in the emergency department was unremarkable. Her initial chest x-ray showed minimal basilar atelectasis, no effusions or pneumothoraces. According to the patient's family, the patient has been intermittently binge drinking. In addition, they report her having diarrhea for a few days. She had a low-grade fever with a temperature of 100.2 last night. 08/16 Patient is sedated with Fentanyl drip intubated and on Levophed 5 mics. On Bicarb drip. MRI brain yesterday showed small lacunar infarcts in left cerebellar hemisphere and right parietal lobe. Lp showed clear CSF, 17 wbc. Afebrile.Renal function worse today with Cr: 2.64 from 2.29 08/17 Patient remains sedated and intubated. On Bicarb drip. Off Levophed renal function slightly worse today with Cr: 2.82 from 2.64 and UOP: 550 ml in 24 hrs 08/18 Patient bit through ETT overnight s/p new ETT placement using tube exchanger. Sedated with Diprivan and Fentanyl. Afebrile. Renal function is improving with Cr: 1.97 from 2.82. On Bicarb drip. Tube feeds held for possible colonoscopy today. 08/19: Remains sedated, orally intubated on mechanical ventilation. Colonoscopy done yesterday revealed ischemic colitis. Has been evaluated by general surgery. Patient went into A. fib with RVR last night and was started on a Cardizem drip. On Levophed for hypotension 08/20: Remains sedated, orally intubated on mechanical ventilation. Started on TPN on 08/19. Cardizem drip turned off this morning. Received 1 dose of digoxin yesterday. 08/21: Remains sedated, orally intubated on mechanical ventilation. On TPN. Ordered Precedex as well as digoxin daily. Starting trophic feeds today. 08/22 Patient remains intubated on Precedex and Fentanyl infusion for sedation. afebrile. 08/23 WBC up to 17.7. Temp max 102.2. Blood culture sent today peripherally ( labelled as line draw initially but was not drawn from a line, lab notified to re-label). Tolerating trophic feeds. Awake and on CPAP 10/5 with RSBI 50s, became labored and desat with 5/5. Denies abdominal pain. Subjective: 08/24: Tmax 102.7 overnight. Currently 100.6. Noted yeast growing from blood culture 08/21. Remains in atrial fibrillation. Potassium currently been replaced. Currently only has once peripheral IV access. Will need central line placed later this afternoon. 08/25 Patient is awake and alert on CPAP trials. T: 101.1 last night. On Heparin and Bumex drips 08/26 Patient was extubated yesterday on 3L oxygen. She went into Afib with RVR last night given Labetalol. Afebrile. 08/27: Patient is slightly tachypneic, but maintaining O2 sat. chest x-ray shows at least moderate sized pleural effusions. Start Lasix 40 mg IV every 12 [address] Doe catheter for accurate intake output and also appears that patient has urinary retention. Remains in atrial fibrillation with RVR, on Cardizem at 15 mg per hour. 3: On BiPAP overnight. Currently on 4 L nasal cannula. Fluctuating neurologic status consistent with delirium. Remains on Cardizem drip at 5 mg per hour for A. fib with RVR. Diuresing well with Lasix. 3: Respiratory status borderline with tachypnea. Requiring intermittent BiPAP. Started on Precedex for anxiety. Dropped blood pressure. 1 unit PRBCs ordered. Solu-Medrol 125 mg IV 1 dose ordered as well. Scheduled for CT- guided thoracentesis for right side today. Heparin GTT held for thoracentesis. Chest x-ray with bilateral pleural effusions despite diuresis. 08/30: Seems to be breathing a little better. Was on BiPAP overnight. Currently on nasal cannula. Knows she is at the hospital and follows commands appropriately. Underwent bilateral thoracentesis yesterday with drainage of 500 cc from right side and 300 cc from left. On Precedex which appears to be working well for anxiety. 08/31: Remains on nasal cannula. Did not use BiPAP at night. Awake and alert. Following commands appropriately. By mouth intake remains borderline. On Precedex 0.2 mics per KG per hour. 09/01 Patient is on 3L oxygen with good sats, hypertensive Remains on Precedex 0.2 mics per KG per hour 09/02 No events overnight. Off Precedex drip. Afebrile. On 3L oxygen. 09/03 Patient is awake, alert remains on 3L oxygen, Afebrile. Requesting something to help her sleep. 09/04 Patient is on 3L oxygen. Afebrile. Objective Vital Signs Date Time Temp Pulse Resp B/P (MAP) Pulse Ox O2 Delivery O2 Flow Rate FiO2 09/04/17 06:00 88 09/04/17 04:00 98.0 16 151/85 (107) 93 09/04/17 04:00 Nasal Cannula 3.00 09/01/17 04:00 60 Intake and Output 09/04/17 09/04/17 09/05/17 08:00 16:00 00:00 Intake Total 580 ml Output Total 650 ml Balance -70 ml Result Diagram: 09/03/17 0423 09/03/17 0423 Imaging L Last Impressions Chest X-Ray 09/02/17 0000 Signed Impressions: Service Date/Time: Saturday, September 02, 2017 09:41 - CONCLUSION: There has been some improvement with the bibasilar infiltrates and effusions compared to the prior study. Samuel Peralta MD Thoracentesis 08/29/17 0000 Signed Impressions: Service Date/Time: Tuesday, August 29, 2017 14:48 - CONCLUSION: Uncomplicated CT-guided thoracentesis. Fluid was sent for studies. Juan J Joel MD FACR Chest CT 08/29/17 0000 Signed Impressions: Service Date/Time: Tuesday, August 29, 2017 14:48 - CONCLUSION: Following thoracentesis there is decreasing amount of effusion. Significant consolidation persists. There is no pneumothorax. Juan J Joel MD FACR Abdomen/Pelvis CT 08/23/17 1426 Signed Impressions: Service Date/Time: Wednesday, August 23, 2017 22:50 - CONCLUSION: 1. Suspected mild diffuse colitis, nonspecific but presumably infectious or inflammatory. No obstruction or abscess. 2. Trace ascites about the same there is worsening anasarca and worsening pleural effusions and consolidation of both lung bases. 3. Tiny nonobstructing stone of the right kidney and a generally benign appearing cyst lower pole the left kidney. No evidence of obstructive uropathy or other etiology for acute renal failure. 4. Atherosclerotic aorta. No aneurysm. Adan Nunes MD Upper Extremity Ultrasound 08/23/17 0000 Signed Impressions: Service Date/Time: Wednesday, August 23, 2017 16:25 - CONCLUSION: Bilateral upper extremity DVT as described above. Samuel Peralta MD Lower Extremity Ultrasound 08/23/17 0000 Signed Impressions: Service Date/Time: Wednesday, August 23, 2017 15:50 - CONCLUSION: 1. There is incomplete compression of the left common femoral vein raising suspicion for nonocclusive thrombus. This vessel, however, still demonstrates normal Doppler blood flow and respiratory variability. 2. The remaining veins of the left lower extremity are patent and the entire right lower extremity is patent without thrombus. Adan Machuca MD Abdomen X-Ray 08/21/17 0600 Signed Impressions: Service Date/Time: July 03:35 - CONCLUSION: The bowel gas pattern remains fairly unremarkable. Jl Stanley MD Lumbar Puncture Fluoroscopy 08/15/17 0000 Signed Impressions: Service Date/Time: Tuesday, August 15, 2017 15:36 - CONCLUSION: 1. Uncomplicated fluoroscopically guided lumbar puncture. 2. Please note, requested opening pressures were not obtained due to technical difficulties. Shashi Moreno MD Brain MRI 08/15/17 0000 Signed Impressions: Service Date/Time: Tuesday, August 15, 2017 16:57 - CONCLUSION: 1. 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 2. Mild stenosis in the upper cervical spine as above. Esau Martell MD Abdomen Ultrasound 08/15/17 0000 Signed Impressions: Service Date/Time: Tuesday, August 15, 2017 10:40 - CONCLUSION: 1. No abnormality is identified to explain the clinical symptoms. There is no hydronephrosis. 2. The liver is normal in size and echotexture. Adan Machuca MD Head CT 08/14/172231 Signed Impressions: Service Date/Time: July 22:54 - CONCLUSION: Unremarkable study. Josseline Villagomez MD Objective Remarks GENERAL: 82-year-old female currently lying in bed on nasal cannula SKIN: Warm and dry. HEAD: Normocephalic. EYES: Pupils equal and reactive bilaterally about 3 mm. Pallor present, No scleral icterus. No injection or drainage. NECK: Supple, trachea midline. No JVD or lymphadenopathy. Orally intubated. Right IJ site without erythema CARDIOVASCULAR: S1-S2 irregularly irregular. No murmurs appreciated RESPIRATORY: On nasal cannula, diminished breath sounds bilateral bases. Scattered rhonchi. No wheezing appreciated. GASTROINTESTINAL: Abdomen soft, non-tender, minimally distended. Bowel sounds hypoactive but present. No guarding or rigidity MUSCULOSKELETAL: Trace edema. 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 Oxycodone 5 mg every 6 hours PRN 08/15: CT brain negative for acute intracranial process MRI brain: Small lacunar infarcts in left cerebellar hemisphere and right parietal lobe EEG: Severe encephalopathy Continue thiamine, multivitamin and folic acid daily. Repeat EEG 08/21.- generalized slowing, no epileptiform features Neuro is following- Dr. Danielle LP showed clear CSF, 17 WBC, TP:45.2 Pulm: Acute respiratory failure Bilateral pleural effusions Continue with oxygen keep sat >92% Bronchodilators, CXR showed bibasilar effusions with atelectatic changes US chest showed right effusion and small left pleural effusion. Will proceed with US guided right thoracentesis Incentive spirometry Q1 hr while awake. Acapella with nebs. CXR 09/02: some improvement with the bibasilar infiltrates and effusions Status post bilateral CT-guided thoracentesis by IR on 08/29 with drainage of 500 cc of pleural fluid on right and 300 cc from left(transudative fluid) Solu-Medrol 125 mg IV 1 dose on 08/29 for worsening respiratory status with possible underlying COPD. Solu-Medrol 40 mg IV every 12 hourly started 08/30 CV: Atrial fibrillation, with RVR Systolic heart failure unknown if acute or chronic Elevated troponin Fluid overload Hypotension Monitor HR and BP keep MAP>65mmHg. On Lopressor 50mg Q12, Digoxin 0.125 mg daily. Digoxin level 0.6 on 09/01. Cardizem 60mg Q6, increase Clonidine0.2mg Q8 Repeat Echo showed EF 45-50%, Lateral leaflet with a 2 mm mobile density, consistent with ? endocarditis Continue aspirin 81 mg by mouth daily/home medication Renal/FEN/: Acute kidney injury, resolved Lactic acidemia, resolved Rhabdomyolysis resolved Right-sided nephrolithiasis/nonobstructing Left renal cyst Monitor renal function, intake and output and avoid nephrotoxins. Renal has followed-Dr. Figueroa, US abdomen: No hydronephrosis CT Abd/pelvis revealed nonobstructing right-sided nephrolithiasis and left renal cyst. Will need Phos replacement today. D/c Lasix GI: Ischemic colitis Severe acute on Chronic protein energy malnutrition AST elevation secondary to alcohol use Internal and external hemorrhoids PO diet per speech On famotidine 20 mg twice a day for GI prophylaxis. US liver: No abnormalities identified GI is following- colonoscopy showed diffuse colitis in the sigmoid colon and descending colon; Necrotic, dusky appearing mucosa. Consistent with severe ischemic colitis. General surgery, Dr. Guadalupe -plan to treat conservatively unless patient worsens clinically. Repeat CT abdomen and pelvis 08/23 mild diffuse colitis ID: Septic shock resolved UTI Ischemic colitis Fungemia Abx per ID - Dr. Davis/ Anmol. On Cefepime, Diflucan, Zyvox. Monitor for signs of infections ( Fever, WBC). Seen by Opth no evidence of endophthalmitis Pertinent cultures 08/23 - blood culture by line (actually peripheral) - coag neg staph 08/21 - blood culture - no growth 08/21 - sputum - no growth 08/21 - - no growth 08/21 - blood culture - Yeast Felipa parapsilosis 08/15 - CSF - negative 08/15 - sputum - no growth 08/14 - blood cultures 2 and UA - no growth C-diff PCR is negative, stool studies negative s/p LP showed clear CSF, 17 WBC, TP:45.2, HSV DNA PCR neg Endo: Hyperglycemia of critical illness/steroid SSI with Novolin R medium with Accu-Chek every 4 hours for glycemic control. TSH: 1.15. Heme: Leukocytosis Normocytic anemia B/L UE DVT Possible left common femoral vein DVT Left cephalic/basilic to professional and right superficial cephalic thrombus Monitor CBC, coags- heparin drip stopped on 08/30 and started on Lovenox 100 mg subcutaneously daily for full anticoagulation. Iron sulfate 300 mg twice a day. 1 unit PRBCs ordered to be transfused on 08/29 GI prophylaxis with famotidine and DVT prophylaxis with SCDs, Lovenox 100mg daily Lines: Peripheral IV's level 2 Don Youngblood MD Sep 04, 2017 07:19
[2017-09-04] MEDS: FERROUS SULFATE 300 MG /5ML UDC PO SCH ×2 (07:40→21:06)
[2017-09-04] MEDS: ASPIRIN 81 MG CHEW TAB OG-TUBE SCH (07:41)
[2017-09-04] MEDS: FAMOTIDINE 20 MG TAB NG SCH ×2 (07:41→21:06)
[2017-09-04] MEDS: METOPROLOL TARTRATE 50 MG TAB PO SCH ×2 (07:41→21:06)
[2017-09-04] MEDS: THIAMINE HCL 100 MG TAB PO SCH (07:41)
[2017-09-04] MEDS: FOLIC ACID 1 MG TAB PO SCH (07:41)
[2017-09-04] MEDS: MULTIVITAMIN TAB PO SCH (07:41)
[2017-09-04] MEDS: cloNIDine HCL 0.2 MG TAB PO SCH ×3 (07:42→23:57)
[2017-09-04] MEDS: INSULIN NovoLIN REGULAR SUPPLEMENTAL SCALE SQ SCH (07:44)
[2017-09-04] MEDS: FLUCONAZOLE 400 MG PREMIX BAG 200 ML IV SCH ×2 (07:47)
[2017-09-04] MEDS: DIGOXIN SOLUTION 0.125 MG/2.5 ML CUP PO SCH (07:47)
[2017-09-04] MEDS: SODIUM CHLORIDE 0.9% FLUSH 10 ML FLUSH IV FLUSH SCH ×3 (07:49→21:06)
[2017-09-04] MEDS: SODIUM CHLORIDE 0.9% FLUSH 10 ML FLUSH IV FLUSH PRN ×2 (07:49)
--- NOTE | 2017-09-04 08:20 | RADRPT ---
EXAM DATE/TIME: 09/04/2017 07:29 [facility] COMPARISON: CHEST SINGLE AP, September 02, 2017, 9:41. INDICATIONS : Short of breath. MEDICAL HISTORY : Hypertension. SURGICAL HISTORY : Appendectomy. Hysterectomy. Breast augmentation ENCOUNTER: Subsequent ACUITY: 2 weeks PAIN SCORE: 0/10 LOCATION: Bilateral chest FINDINGS: A single view of the chest demonstrates persistent bilateral pleural effusions with common atelectati c changes. Left IJ central venous catheter has been removed. Otherwise, no significant interval arzola e. Heart size remains normal. Osseous structures are intact. CONCLUSION: 1. Persistent bibasilar effusions with common atelectatic changes, basically unchanged. 2. Left IJ central venous catheter has been removed. Shashi Moreno MD on September 04, 2017 at 8:17 Board Certified Radiologist. This report was verified electronically.
[2017-09-04] MEDS: RESP: ALBUTEROL 2.5 MG/IPRATROPIUM 0.5 MG NEB (SCH) NEB ×3 (08:24→15:31)
[2017-09-04] MEDS: NYSTAT/DIPHENHY/LIDO MOUTHWASH (Adult) 120ML SWISH-SPIT PRN ×2 (09:46→21:07)
--- NOTE | 2017-09-04 10:59 | RADRPT ---
EXAM DATE/TIME: 09/04/2017 09:23 [facility] COMPARISON: No previous studies available for comparison. INDICATIONS : Right pleural effusion. MEDICAL HISTORY : Hypertension. SURGICAL HISTORY : Appendectomy. Hysterectomy. Breast augmentation. ENCOUNTER: Initial ACUITY: 1 day PAIN SCORE: 0/10 LOCATION: Right chest MEASUREMENTS: SKIN TO PARIETAL PLEURA: 1.1 cm SKIN TO MAX SAFE DEPTH: 2.6 cm ESTIMATED FLUID VOLUME: 717.22 cc FLUID COMPOSITION: simple FINDINGS: Pleural effusion as above. CONCLUSION: Right pleural effusion as above. Shashi Moreno MD on September 04, 2017 at 10:57 Board Certified Radiologist. This report was verified electronically.
--- NOTE | 2017-09-04 11:00 | RADRPT ---
EXAM DATE/TIME: 09/04/2017 09:26 [facility] COMPARISON: CHEST SINGLE AP, September 04, 2017, 7:29. INDICATIONS : Left chest pleural effusion. MEDICAL HISTORY : Hypertension. SURGICAL HISTORY : Appendectomy. Hysterectomy. Breast augmentation. ENCOUNTER: Initial ACUITY: 1 day PAIN SCORE: 0/10 LOCATION: Left chest MEASUREMENTS: SKIN TO PARIETAL PLEURA: 2.1 Inadequate fluid SKIN TO MAX SAFE DEPTH: 3.2 Inadequate fluid ESTIMATED FLUID VOLUME: 116 cc FLUID COMPOSITION: simple FINDINGS: Pleural effusion as above. CONCLUSION: Left pleural effusion as above. Shashi Moreno MD on September 04, 2017 at 10:57 Board Certified Radiologist. This report was verified electronically.
--- NOTE | 2017-09-04 11:11 | HHI.IDPN ---
Subjective Subjective Remarks Ms. Olson is an 82 year old female with past medical history of hypertension, possible sleep apnea, chronic neck pain, sciatica, alcohol abuse, arthritis, chronic rectal prolapse with bowel incontinence and anxiety. Patients daughter reports she was away for last week (normally she lives with Mom). She checked on her mom each night. The night prior to admission patient and daughter spoke to each other and no reported fever or change in behavior etc noted. No recent bounced checks, change in behavior, fires, falls or doors left unopened or such security concerns. She was found by her daughter lying in bed. On questioning patient was not found vomiting and no seizures. But patient was found in urine and feces. With this background patient presented to [facility] ER on when daughter arrived home to find patient laying on the bed covered in urine and feces. She was obtunded and 911 was called. Upon arrival to the ER: * VS - 100.2, HR 104, RR 18, BP 125/55, O2 sat 95% on room air. * WBC 10.2, hgb 13.8, hct 41.6, platelets 304, neutrophils 91.3% * BUN 52, creatinine 3.39, glucose 177, sodium 141, potassium 5.1, chloride 103 , GFR 13 * Lactic acid 6.3 * TCK 3855, CK-MB 113.6, CK-MB 2.9% * CT head - unremarkable * CXR - minimal basilar atelectasis, no effusion or pneumothorax Patient was admitted to the [facility] Hospitalist service for severe dehydration. acute renal failure, rhabdomyolysis, lactic acidosis, possible UTI, sepsis. Overnight she developed tachycardia, hypotension and hypoxemia. She was transferred to ICU placed on pressor support. She was started on heparin drip per PE protocol. Foreign Agent was consulted for hypotension, septic shock. On non -rebreather with with oxygen saturation 90% and BP 79/50. Since admission [facility] was [facility] Infectious disease following for M'ment of Pneumonia and Colitis. Overnight events reviewed. No fevers No rash No diarrhea No abd pain O2 at 4L NC. CXR with fluid, not much infiltrate. Antibiotics Current Medications Medications (Trade) Dose Ordered Sig/Al Route Start Time Stop Time Status Last Admin (NS Flush) 2 ml UNSCH PRN IV FLUSH 08/15/17 02:00 09/04/17 07:49 (NS Flush) 2 ml BID IV FLUSH 08/15/17 09:00 09/04/17 07:49 (Narcan Inj) 0.4 mg UNSCH PRN IV PUSH 08/15/17 02:00 Miscellaneous Information Patient in critical care unit? Ass... Q361D .XX 08/15/17 06:15 08/15/17 06:15 (Romazicon Inj) 0.2 mg Q1M PRN IV PUSH 08/15/17 06:30 (Vitamin B1) 100 mg DAILY PO 08/15/17 12:00 09/04/17 07:41 (Theragran) 1 tab DAILY PO 08/15/17 12:00 09/04/17 07:41 (Folate) 1 mg DAILY PO 08/15/17 12:00 09/04/17 07:41 (Aspirin Chew) 81 mg DAILY OG-TUBE 08/15/17 19:00 09/04/17 07:41 (D50w (Vial) Inj) 50 ml UNSCH PRN IV PUSH 08/16/17 08:00 (Glucagon Inj) 1 mg UNSCH PRN OTHER 08/16/17 08:00 (Trandate Inj) 20 mg Q4H PRN IV PUSH 08/21/17 17:15 08/21/17 21:51 (K-Lyte Cl Eff) 25 meq Q8H NG 08/23/17 20:00 09/03/17 20:22 (Tears Naturale Opth Soln) 1 drop Q8HR EACH EYE 08/24/17 14:00 09/04/17 05:04 (Tylenol 650 Mg/ 20 ml Liq) 650 mg Q6H PRN NG 08/24/17 13:00 (Lanoxin Liq) 0.125 mg DAILY PO 08/25/17 09:00 09/04/17 07:47 (Ferrous Sulfate Liq) 300 mg BID PO 08/24/17 21:00 09/04/17 07:40 (NS Flush) DAILY IV FLUSH 08/25/17 09:00 09/04/17 07:49 (NS Flush) UNSCH PRN IV FLUSH 08/24/17 17:45 09/04/17 07:49 (Duoneb Neb) 1 ampule Q2HR NEB PRN NEB 08/25/17 10:00 Miscellaneous Information D/C ICU ELECTROLYTE ORDERS... UNSCH PRN .XX 08/25/17 15:00 Miscellaneous Information ICU - CALL ORDERING PHYSIC... UNSCH PRN .XX 08/25/17 15:00 Potassium Chloride 100 ml @ 25 mls/hr UNSCH PRN IV 08/25/17 15:00 08/29/17 16:51 (K-Lyte Cl Eff) 50 meq UNSCH PRN PO 08/25/17 15:00 Potassium Chloride 100 ml @ 50 mls/hr UNSCH PRN IV 08/25/17 15:00 09/01/17 20:35 Magnesium Sulfate 4 gm/Sodium Chloride 108 ml @ 54 mls/hr UNSCH PRN IV 08/25/17 15:00 Magnesium Sulfate 2 gm/Sodium Chloride 104 ml @ 52 mls/hr UNSCH PRN IV 08/25/17 15:00 (Mag-Ox) 800 mg UNSCH PRN PO 08/25/17 15:00 Sodium Phosphate 30 mmol/Sodium Chloride 260 ml @ 43.333 mls/ hr UNSCH PRN IV 08/25/17 15:00 (K-Phos) 2,000 mg UNSCH PRN PO 08/25/17 15:00 Potassium Phosphate 30 mmol/ Sodium Chloride 260 ml @ 43.333 mls/ hr UNSCH PRN IV 08/25/17 15:00 09/02/17 08:07 (Atrovent Neb) 0.5 mg Q2HR NEB PRN NEB 08/26/17 08:00 (Atrovent Neb) 0.5 mg Q4HR NEB NEB 08/26/17 08:00 09/04/17 00:33 (Pill Splitter) 1 ea UNSCH PRN OTHER 08/26/17 08:30 (Roxicodone) 5 mg Q6H PRN PO 08/27/17 13:00 (Morphine Inj) 1 mg Q4H PRN IV 08/27/17 11:00 08/31/17 14:38 Fluconazole/ Sodium Chloride 200 ml @ 100 mls/hr Q24H IV 08/28/17 08:00 09/04/17 07:47 Fluconazole/ Sodium Chloride 200 ml @ 100 mls/hr Q24H IV 08/28/17 10:00 09/04/17 07:47 (Benadryl) 25 mg Q4H PRN PO 08/29/17 11:30 (Brethine Inj) 1 mg UNSCH PRN SQ 08/29/17 14:00 (Pepcid) 10 mg BID NG 08/29/17 21:00 09/04/17 07:41 (Lovenox Inj) 100 mg Q24H SQ 08/30/17 15:00 09/03/17 14:50 (SoluMEDROL INJ) 40 mg Q12H IV PUSH 08/30/17 13:00 09/04/17 00:32 (Pill Splitter) 1 ea UNSCH PRN OTHER 08/30/17 13:00 09/01/17 09:12 (Magic Mouthwash Adult Liq) 5 ml QID PRN SWISH-SPIT 08/30/17 19:15 09/04/17 09:46 (Cardizem) 60 mg Q6HR PO 09/01/17 12:00 09/04/17 05:22 (Lopressor) 50 mg Q12HR PO 09/03/17 09:00 09/04/17 07:41 (Catapres) 0.2 mg Q8H PO 09/04/17 08:00 09/04/17 07:42 (Duoneb Neb) 1 ampule Q4HR NEB NEB 09/04/17 08:00 09/04/17 08:24 (Restoril) 7.5 mg ONCE ONCE PO 09/04/17 21:00 09/04/17 21:01 Lines Line sites with no e.o infections. Past Medical History reviewed Allergies: Coded Allergies: No Known Allergies (Verified Allergy, Unknown, 08/15/17) Objective . Vital Signs Date Time Temp Pulse Resp B/P (MAP) Pulse Ox O2 Delivery O2 Flow Rate FiO2 09/04/17 10:00 70 09/04/17 09:00 75 20 117/71 (86) 95 09/04/17 09:00 75 09/04/17 08:27 95 Nasal Cannula 4.00 09/04/17 08:00 96 Nasal Cannula 3.00 09/04/17 08:00 102 09/04/17 08:00 98.3 102 18 140/80 (100) 97 09/04/17 07:00 98 09/04/17 07:00 98 133/83 (100) 09/04/17 06:00 88 09/04/17 04:00 98.0 99 16 151/85 (107) 93 09/04/17 04:00 98 Nasal Cannula 3.00 09/04/17 04:00 99 09/04/17 02:00 102 09/04/17 00:33 98 Nasal Cannula 4.00 09/04/17 00:00 101 09/04/17 00:00 98 Nasal Cannula 3.00 09/04/17 00:00 98.0 76 20 117/64 (81) 98 09/03/17 22:00 79 09/03/17 20:00 98 Nasal Cannula 3.00 09/03/17 20:00 75 09/03/17 20:00 98.1 75 20 124/67 (86) 93 09/03/17 19:47 93 Nasal Cannula 4.00 09/03/17 18:00 73 09/03/17 16:00 89.0 89 116/75 (89) 92 09/03/17 16:00 88 09/03/17 16:00 98 Nasal Cannula 3.00 09/03/17 14:00 69 09/03/17 13:46 95 Nasal Cannula 3.00 09/03/17 12:00 94 Nasal Cannula 3.00 09/03/17 12:00 97.9 96 129/66 (87) 80 09/03/17 12:00 56 . Laboratory Tests Test 09/03/17 04:23 White Blood Count 7.5 TH/MM3 Red Blood Count 3.25 MIL/MM3 Hemoglobin 10.4 GM/DL Hematocrit 30.8 % Mean Corpuscular Volume 94.8 FL Mean Corpuscular Hemoglobin 32.1 PG Mean Corpuscular Hemoglobin Concent 33.8 % Red Cell Distribution Width 14.8 % Platelet Count 466 TH/MM3 Mean Platelet Volume 8.6 FL Neutrophils (%) (Auto) 78.4 % Lymphocytes (%) (Auto) 11.2 % Monocytes (%) (Auto) 10.0 % Eosinophils (%) (Auto) 0.1 % Basophils (%) (Auto) 0.3 % Neutrophils # (Auto) 5.9 TH/MM3 Lymphocytes # (Auto) 0.8 TH/MM3 Monocytes # (Auto) 0.7 TH/MM3 Eosinophils # (Auto) 0.0 TH/MM3 Basophils # (Auto) 0.0 TH/MM3 CBC Comment DIFF FINAL Differential Comment Laboratory Tests Test 09/03/17 04:23 Blood Urea Nitrogen 28 MG/DL Creatinine 0.73 MG/DL Random Glucose 110 MG/DL Calcium Level 7.6 MG/DL Phosphorus Level 2.2 MG/DL Magnesium Level 2.0 MG/DL Sodium Level 138 MEQ/L Potassium Level 4.1 MEQ/L Chloride Level 99 MEQ/L Carbon Dioxide Level 30.2 MEQ/L Anion Gap 9 MEQ/L Estimat Glomerular Filtration Rate 76 ML/MIN Imaging Last Impressions Abdomen X-Ray 08/21/17 0600 Signed Impressions: Service Date/Time: July 03:35 - CONCLUSION: The bowel gas pattern remains fairly unremarkable. Jl Stanley MD Chest X-Ray 08/21/17 0000 Signed Impressions: Service Date/Time: July 19:39 - CONCLUSION: 1. Stable tubes and lines, as above. 2. Worsening bilateral lower lung zone pleural parenchymal disease. Douglas Jean MD Lumbar Puncture Fluoroscopy 08/15/17 0000 Signed Impressions: Service Date/Time: Tuesday, August 15, 2017 15:36 - CONCLUSION: 1. Uncomplicated fluoroscopically guided lumbar puncture. 2. Please note, requested opening pressures were not obtained due to technical difficulties. Shashi Moreno MD Brain MRI 08/15/17 0000 Signed Impressions: Service Date/Time: Tuesday, August 15, 2017 16:57 - CONCLUSION: 1. 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 2. Mild stenosis in the upper cervical spine as above. Esau Martell MD Abdomen/Pelvis CT 08/15/17 0000 Signed Impressions: Service Date/Time: Wednesday, August 16, 2017 00:25 - CONCLUSION: 1. Abnormal thickening of the descending colonic wall and the possibility of colitis should be entertained. There is also thickening of distal ileal wall which may be inflammatory as well. 2. There is mild anasarca with edema or inflammatory changes within the bilateral paracolic gutters extending down into the pelvis. 3. Small bilateral pleural effusions and bibasilar atelectasis and/or infiltrate. 4. Prominent ileocecal valve and possibility of lipoma at this site is not excluded. Josseline Villagomez MD Abdomen Ultrasound 08/15/17 0000 Signed Impressions: Service Date/Time: Tuesday, August 15, 2017 10:40 - CONCLUSION: 1. No abnormality is identified to explain the clinical symptoms. There is no hydronephrosis. 2. The liver is normal in size and echotexture. Adan Machuca MD Head CT 08/14/17 2232 Signed Impressions: Service Date/Time: July 22:54 - CONCLUSION: Unremarkable study. Josseline Villagomez MD Physical Exam GENERAL: Awake, following commands SKIN: No rashes, ecchymoses or lesions. Warm and dry. HEAD: Atraumatic. Normocephalic. No temporal or scalp tenderness. EYES: Pupils equal round and reactive. Extraocular motions intact. No scleral icterus. No injection or drainage. Has mild scleral edema ENT: Moist oral mucosa, no nasal drainage NECK: Trachea midline. Supple, nontender, CARDIOVASCULAR: + murmur, no gallops, rub RESPIRATORY: Bilateral rhonchi GASTROINTESTINAL: Abdomen distended, not tender, hypoactive bowels sounds, no guarding or rebound. MUSCULOSKELETAL: Extremities without clubbing. No calf tenderness. Negative Homans sign bilaterally. NEUROLOGICAL: Opens eyes spontaneously, moves all 4 extremities. Psych: Cooperative IV line sites with no e.o infection. Assessment & Plan Remarks Assessment and Plan Fungemia in setting of bilateral UE DVT will treat as Septic thrombophlebitis. C.Parapsilosis fungal septic thrombophlebitis. Sepsis. HCAP with effusions. Staph epidermidis: likely pseudobacteremia/contaminant. Specimen from old line, already removed. Acute resp failure on vent Acute metabolic encephalopathy: appears resolving. Alcohol abuse: at risk for withdrawal. Acute rhabdomyolysis: ? seizures. Acute renal failure: sepsis, prerenal, rhabdomyolysis. Colitis clinically and radiologically ; likely ischemic - C diff negative Recs: DC Cefepime. DC Zyvox oral Continue Diflucan for C.Parapsilosis fungal septic thrombophlebitis and possible endocarditis. CXr reviewed and dw agree to stop antibiotics and get US chest. C.parapsilosis susceptibilities and Diflucan S. Spoke with daughter and son at bedside - updated on current work-up and treatment. Discussed with the family possible vegetation on 1 of the valves. Patient not a candidate for FERNANDO at the present time given her respiratory status. Discussed with family that this may need to be done at a later date especially if patient gets intubated or has recurrence of fungemia. juana Avery. juana HILLMAN and RN. to cover for me 09/05/2017 to 09/07/2017. Piedad Corea MD Sep 04, 2017 11:11
[2017-09-04 13:03] LABS: BASOPHIL % 0.7 % (0.0-2.0); EOSINOPHIL % 0.1 % (0.0-4.0); HEMATOCRIT 30.1 % (35.0-46.0); HEMOGLOBIN 10.3 GM/DL (11.6-15.3); LYMPH % 9.7 % (9.0-44.0); LYMPHOCYTE # 0.7 TH/MM3 (1.0-4.8); MEAN CELL VOLUME 96.8 FL (80.0-100.0); MEAN CORPUSCULAR HEMOGLOBIN 33.2 PG (27.0-34.0); MEAN CORPUSCULAR HGB CONC 34.3 % (32.0-36.0); MEAN PLATELET VOLUME 8.7 FL (7.0-11.0); MONO % 6.6 % (0.0-8.0); MONOCYTE # 0.5 TH/MM3 (0-0.9); NEUT % 82.9 % (16.0-70.0); PLATELET COUNT 324 TH/MM3 (150-450); RED BLOOD COUNT 3.11 MIL/MM3 (4.00-5.30); RED CELL DISTRIBUTION WIDTH 15.4 % (11.6-17.2); WHITE BLOOD COUNT 7.3 TH/MM3 (4.0-11.0)
[2017-09-04 13:37] LABS: INTERNATIONAL NORMALIZED RATIO 1.1 RATIO; PROTHROMBIN TIME - PATIENT 11.4 SEC (9.8-11.6)
[2017-09-04 13:48] LABS: BICARBONATE 27.6 MEQ/L (21.0-32.0); CALCIUM 7.9 MG/DL (8.5-10.1); CREATININE 0.68 MG/DL (0.50-1.00); MAGNESIUM 2.2 MG/DL (1.5-2.5); PHOSPHORUS 2.5 MG/DL (2.5-4.9)
[2017-09-04] MEDS: ENOXAPARIN SODIUM 100 MG/ML SYRINGE SQ SCH (16:11)
--- NOTE | 2017-09-04 16:15 | RADRPT ---
EXAM DATE/TIME: 09/04/2017 15:12 [place] COMPARISON: CT THORAX W/O CONTRAST, August 29, 2017, 14:48. INDICATIONS : Right pleural effusion. RADIATION DOSE: 13.83 CTDIvol (mGy) MEDICAL HISTORY : None SURGICAL HISTORY : Hysterectomy. ENCOUNTER: Initial ACUITY: 1 day PAIN SCALE: 0/10 LOCATION: chest TECHNIQUE: Volumetric scanning of the chest was performed. Using automated exposure control and adjustment of t he mA and/or kV according to patient size, radiation dose was kept as low as reasonably achievable to obtain optimal diagnostic quality images. DICOM format image data is available electronically for r eview and comparison. Follow-up recommendations for detected pulmonary nodules are based at a minimum on nodule size and pa tient risk factors according to Fleischner Society Guidelines. FINDINGS: LUNGS: Bibasilar atelectatic changes with patchy regional airspace disease, particularly on the right. PLEURAE: Small bilateral pleural effusions with associated atelectatic changes. MEDIASTINUM: The heart and great vessels demonstrate no acute abnormality. There is no mediastinal or hilar lymph adenopathy. Scattered atherosclerotic calcification of the coronary arteries AXILLAE: Within normal limits. No lymphadenopathy. MUSCULOSKELETAL: Within normal limits for patient age. MISCELLANEOUS: The visualized upper abdominal organs demonstrate no acute abnormality. Bilateral breast augmentation . CONCLUSION: 1. Small bilateral pleural effusions with concomitant atelectatic changes. 2. Fluid collections are too small to safely drain percutaneously with CT. Shashi Moreno MD on September 04, 2017 at 16:12 Board Certified Radiologist. This report was verified electronically.
[2017-09-04] MEDS ORDERED: TEMAZEPAM 7.5 MG CAP PO ONE (21:00)
[2017-09-05] VITALS (14 sets, daily range): BP systolic 122–157; BP diastolic 66–96; PULSE 65–104; RESP 18–19; TEMP 97.6–98.4; O2SAT 88–96
[2017-09-05] MEDS: RESP: IPRATROPIUM 0.5 MG/2.5 ML NEB NEB SCH ×5 (04:00→20:20)
[2017-09-05] MEDS: DILTIAZEM HCL 60 MG TAB PO SCH (05:38)
[2017-09-05] MEDS: ARTIFICIAL TEARS OPTH SOLN 15 ML BTL EACH EYE SCH ×3 (05:38→19:51)
--- NOTE | 2017-09-05 07:09 | HHI.CCPN ---
Subjective Remarks/Hospital Course Patient is an 82-year-old female with past medical history of irritable bowel syndrome, hypertension, arthritis, diverticulitis who presented to the [facility] ED after she was found lying on her bed with urine and feces all around her bed. In addition, the patient was altered and obtunded. Most of the history was obtained from reviewing the medical records. Her laboratory data showed acute renal failure with BUN of 52, creatinine 3.39 and lactic acidosis with a lactic acid level of 6.3. In addition, the patient was in rhabdomyolysis with elevated CK at 3855. She was admitted under the hospitalist service; however, a [facility] was called due to worsening mental status, hypertension and hypoxemia. She [place] [facility] care medicine was consulted for critical care management. When seen, the patient was lethargic, not following any commands, hypotensive. She was subsequently intubated by myself and a right internal jugular central line was placed for hemodynamic monitoring. ABG post intubation showed a pH of 7.31, co2 of 30, pA02 of 117, bicarbonate 15 and saturation of 96% on PRVC rate of 14, tidal volume 350 with IT:1, PEEP 5 and FIO2 of 100%. She was given two liter boluses of normal saline and placed on a bicarbonate drip. Her lactic acid level is trending down and is currently 3.4 from 6.3 on arrival. In addition, her renal function is improving with IV hydration. Her creatinine level is 2.29 from 3.39. Due to hypotension, Levophed was started. A CT scan of the brain in the emergency department was unremarkable. Her initial chest x-ray showed minimal basilar atelectasis, no effusions or pneumothoraces. According to the patient's family, the patient has been intermittently binge drinking. In addition, they report her having diarrhea for a few days. She had a low-grade fever with a temperature of 100.2 last night. 08/16 Patient is sedated with Fentanyl drip intubated and on Levophed 5 mics. On Bicarb drip. MRI brain yesterday showed small lacunar infarcts in left cerebellar hemisphere and right parietal lobe. Lp showed clear CSF, 17 wbc. Afebrile.Renal function worse today with Cr: 2.64 from 2.29 08/17 Patient remains sedated and intubated. On Bicarb drip. Off Levophed renal function slightly worse today with Cr: 2.82 from 2.64 and UOP: 550 ml in 24 hrs 08/18 Patient bit through ETT overnight s/p new ETT placement using tube exchanger. Sedated with Diprivan and Fentanyl. Afebrile. Renal function is improving with Cr: 1.97 from 2.82. On Bicarb drip. Tube feeds held for possible colonoscopy today. 08/19: Remains sedated, orally intubated on mechanical ventilation. Colonoscopy done yesterday revealed ischemic colitis. Has been evaluated by general surgery. Patient went into A. fib with RVR last night and was started on a Cardizem drip. On Levophed for hypotension 08/20: Remains sedated, orally intubated on mechanical ventilation. Started on TPN on 08/19. Cardizem drip turned off this morning. Received 1 dose of digoxin yesterday. 08/21: Remains sedated, orally intubated on mechanical ventilation. On TPN. Ordered Precedex as well as digoxin daily. Starting trophic feeds today. 08/22 Patient remains intubated on Precedex and Fentanyl infusion for sedation. afebrile. 08/23 WBC up to 17.7. Temp max 102.2. Blood culture sent today peripherally ( labelled as line draw initially but was not drawn from a line, lab notified to re-label). Tolerating trophic feeds. Awake and on CPAP 10/5 with RSBI 50s, became labored and desat with 5/5. Denies abdominal pain. Subjective: 08/24: Tmax 102.7 overnight. Currently 100.6. Noted yeast growing from blood culture 08/21. Remains in atrial fibrillation. Potassium currently been replaced. Currently only has once peripheral IV access. Will need central line placed later this afternoon. 08/25 Patient is awake and alert on CPAP trials. T: 101.1 last night. On Heparin and Bumex drips 08/26 Patient was extubated yesterday on 3L oxygen. She went into Afib with RVR last night given Labetalol. Afebrile. 08/27: Patient is slightly tachypneic, but maintaining O2 sat. chest x-ray shows at least moderate sized pleural effusions. Start Lasix 40 mg IV every 12 [address] Doe catheter for accurate intake output and also appears that patient has urinary retention. Remains in atrial fibrillation with RVR, on Cardizem at 15 mg per hour. 3: On BiPAP overnight. Currently on 4 L nasal cannula. Fluctuating neurologic status consistent with delirium. Remains on Cardizem drip at 5 mg per hour for A. fib with RVR. Diuresing well with Lasix. 3: Respiratory status borderline with tachypnea. Requiring intermittent BiPAP. Started on Precedex for anxiety. Dropped blood pressure. 1 unit PRBCs ordered. Solu-Medrol 125 mg IV 1 dose ordered as well. Scheduled for CT- guided thoracentesis for right side today. Heparin GTT held for thoracentesis. Chest x-ray with bilateral pleural effusions despite diuresis. 08/30: Seems to be breathing a little better. Was on BiPAP overnight. Currently on nasal cannula. Knows she is at the hospital and follows commands appropriately. Underwent bilateral thoracentesis yesterday with drainage of 500 cc from right side and 300 cc from left. On Precedex which appears to be working well for anxiety. 08/31: Remains on nasal cannula. Did not use BiPAP at night. Awake and alert. Following commands appropriately. By mouth intake remains borderline. On Precedex 0.2 mics per KG per hour. 09/01 Patient is on 3L oxygen with good sats, hypertensive Remains on Precedex 0.2 mics per KG per hour 09/02 No events overnight. Off Precedex drip. Afebrile. On 3L oxygen. 09/03 Patient is awake, alert remains on 3L oxygen, Afebrile. Requesting something to help her sleep. 09/04 Patient is on 3L oxygen. Afebrile. 09/05 Patient is lying in bed in NAD. Thoracentesis couldn't be done by IR as pleural effusion is too small per CT images. Afebrile. Objective Vital Signs Date Time Temp Pulse Resp B/P (MAP) Pulse Ox O2 Delivery O2 Flow Rate FiO2 09/05/17 06:00 104 09/05/17 04:00 97.9 19 146/83 (104) 93 09/05/17 04:00 Nasal Cannula 3.00 Intake and Output 09/05/17 09/05/17 09/06/17 08:00 16:00 00:00 Intake Total 600 ml Output Total 750 ml Balance -150 ml Result Diagram: 09/04/17 1236 09/04/17 1256 Other Results Laboratory Tests Test 09/04/17 12:36 09/04/17 12:56 White Blood Count 7.3 TH/MM3 Red Blood Count 3.11 MIL/MM3 Hemoglobin 10.3 GM/DL Hematocrit 30.1 % Mean Corpuscular Volume 96.8 FL Mean Corpuscular Hemoglobin 33.2 PG Mean Corpuscular Hemoglobin Concent 34.3 % Red Cell Distribution Width 15.4 % Platelet Count 324 TH/MM3 Mean Platelet Volume 8.7 FL Neutrophils (%) (Auto) 82.9 % Lymphocytes (%) (Auto) 9.7 % Monocytes (%) (Auto) 6.6 % Eosinophils (%) (Auto) 0.1 % Basophils (%) (Auto) 0.7 % Neutrophils # (Auto) 6.0 TH/MM3 Lymphocytes # (Auto) 0.7 TH/MM3 Monocytes # (Auto) 0.5 TH/MM3 Eosinophils # (Auto) 0.0 TH/MM3 Basophils # (Auto) 0.0 TH/MM3 CBC Comment AUTO DIFF Differential Comment AUTO DIFF CONFIRMED Hematology Comments Prothrombin Time 11.4 SEC Prothromb Time International Ratio 1.1 RATIO Blood Urea Nitrogen 22 MG/DL Creatinine 0.68 MG/DL Random Glucose 137 MG/DL Calcium Level 7.9 MG/DL Phosphorus Level 2.5 MG/DL Magnesium Level 2.2 MG/DL Sodium Level 137 MEQ/L Potassium Level 4.2 MEQ/L Chloride Level 101 MEQ/L Carbon Dioxide Level 27.6 MEQ/L Anion Gap 8 MEQ/L Estimat Glomerular Filtration Rate 83 ML/MIN Imaging Last Impressions Thoracentesis 09/04/17 0000 Signed Impressions: Service Date/Time: August 15:12 - CONCLUSION: 1. Small bilateral pleural effusions with concomitant atelectatic changes. 2. Fluid collections are too small to safely drain percutaneously with CT. Shashi Moreno MD Chest X-Ray 09/04/17 0000 Signed Impressions: Service Date/Time: August 07:29 - CONCLUSION: 1. Persistent bibasilar effusions with common atelectatic changes, basically unchanged. 2. Left IJ central venous catheter has been removed. Shashi Moreno MD Chest Ultrasound 09/04/17 0000 Signed Impressions: Service Date/Time: August 09:23 - CONCLUSION: Right pleural effusion as above. Shashi Moreno MD Chest CT 08/29/17 0000 Signed Impressions: Service Date/Time: Tuesday, August 29, 2017 14:48 - CONCLUSION: Following thoracentesis there is decreasing amount of effusion. Significant consolidation persists. There is no pneumothorax. Juan J Joel MD FACR Abdomen/Pelvis CT 08/23/17 1426 Signed Impressions: Service Date/Time: Wednesday, August 23, 2017 22:50 - CONCLUSION: 1. Suspected mild diffuse colitis, nonspecific but presumably infectious or inflammatory. No obstruction or abscess. 2. Trace ascites about the same there is worsening anasarca and worsening pleural effusions and consolidation of both lung bases. 3. Tiny nonobstructing stone of the right kidney and a generally benign appearing cyst lower pole the left kidney. No evidence of obstructive uropathy or other etiology for acute renal failure. 4. Atherosclerotic aorta. No aneurysm. Adan Nunes MD Upper Extremity Ultrasound 08/23/17 0000 Signed Impressions: Service Date/Time: Wednesday, August 23, 2017 16:25 - CONCLUSION: Bilateral upper extremity DVT as described above. Samuel Peralta MD Lower Extremity Ultrasound 08/23/17 0000 Signed Impressions: Service Date/Time: Wednesday, August 23, 2017 15:50 - CONCLUSION: 1. There is incomplete compression of the left common femoral vein raising suspicion for nonocclusive thrombus. This vessel, however, still demonstrates normal Doppler blood flow and respiratory variability. 2. The remaining veins of the left lower extremity are patent and the entire right lower extremity is patent without thrombus. Adan Machuca MD Abdomen X-Ray 08/21/17 0600 Signed Impressions: Service Date/Time: July 03:35 - CONCLUSION: The bowel gas pattern remains fairly unremarkable. Jl Stanley MD Lumbar Puncture Fluoroscopy 08/15/17 0000 Signed Impressions: Service Date/Time: Tuesday, August 15, 2017 15:36 - CONCLUSION: 1. Uncomplicated fluoroscopically guided lumbar puncture. 2. Please note, requested opening pressures were not obtained due to technical difficulties. Shashi Moreno MD Brain MRI 08/15/17 0000 Signed Impressions: Service Date/Time: Tuesday, August 15, 2017 16:57 - CONCLUSION: 1. 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 2. Mild stenosis in the upper cervical spine as above. Esau Martell MD Abdomen Ultrasound 08/15/17 0000 Signed Impressions: Service Date/Time: Tuesday, August 15, 2017 10:40 - CONCLUSION: 1. No abnormality is identified to explain the clinical symptoms. There is no hydronephrosis. 2. The liver is normal in size and echotexture. Adan Machuca MD Head CT 08/14/172231 Signed Impressions: Service Date/Time: July 22:54 - CONCLUSION: Unremarkable study. Josseline Villagomez MD Objective Remarks GENERAL: 82-year-old female currently lying in bed on nasal cannula SKIN: Warm and dry. HEAD: Normocephalic. EYES: Pupils equal and reactive bilaterally about 3 mm. Pallor present, No scleral icterus. No injection or drainage. NECK: Supple, trachea midline. No JVD or lymphadenopathy. Orally intubated. Right IJ site without erythema CARDIOVASCULAR: S1-S2 irregularly irregular. No murmurs appreciated RESPIRATORY: On nasal cannula, diminished breath sounds bilateral bases. Scattered rhonchi. No wheezing appreciated. GASTROINTESTINAL: Abdomen soft, non-tender, minimally distended. Bowel sounds hypoactive but present. No guarding or rigidity MUSCULOSKELETAL: Trace edema. 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 Oxycodone 5 mg every 6 hours PRN 08/15: CT brain negative for acute intracranial process MRI brain: Small lacunar infarcts in left cerebellar hemisphere and right parietal lobe EEG: Severe encephalopathy Continue thiamine, multivitamin and folic acid daily. Repeat EEG 08/21.- generalized slowing, no epileptiform features Neuro is following- Dr. Danielle LP showed clear CSF, 17 WBC, TP:45.2 Pulm: Acute respiratory failure Bilateral pleural effusions Continue with oxygen keep sat >92% Bronchodilators, CXR showed bibasilar effusions with atelectatic changes Thoracentesis wasn't done by IR as pleural effusion is too small per CT images. Incentive spirometry Q1 hr while awake. Acapella with nebs. CXR 09/04: bibasilar effusions with common atelectatic changes, Status post bilateral CT-guided thoracentesis by IR on 08/29 with drainage of 500 cc of pleural fluid on right and 300 cc from left(transudative fluid) Solu-Medrol 125 mg IV 1 dose on 08/29 for worsening respiratory status with possible underlying COPD. Solu-Medrol 40 mg IV every 12 hourly started 08/30 CV: Atrial fibrillation, with RVR Systolic heart failure unknown if acute or chronic Elevated troponin Fluid overload Hypotension Monitor HR and BP keep MAP>65mmHg. On Lopressor 50mg Q12, Digoxin 0.125 mg daily. Digoxin level 0.6 on 09/01. Cardizem 60mg Q6, Clonidine0.2mg Q8 Repeat Echo showed EF 45-50%, Lateral leaflet with a 2 mm mobile density, consistent with ? endocarditis Cardiology consult Continue aspirin 81 mg by mouth daily/home medication Renal/FEN/: Acute kidney injury, resolved Lactic acidemia, resolved Rhabdomyolysis resolved Right-sided nephrolithiasis/nonobstructing Left renal cyst Monitor renal function, intake and output and avoid nephrotoxins. Renal has followed-Dr. Figueroa, US abdomen: No hydronephrosis CT Abd/pelvis revealed nonobstructing right-sided nephrolithiasis and left renal cyst. GI: Ischemic colitis Severe acute on Chronic protein energy malnutrition AST elevation secondary to alcohol use Internal and external hemorrhoids PO diet per speech On famotidine 20 mg twice a day for GI prophylaxis. US liver: No abnormalities identified GI is following- colonoscopy showed diffuse colitis in the sigmoid colon and descending colon; Necrotic, dusky appearing mucosa. Consistent with severe ischemic colitis. General surgery, Dr. Guadalupe -plan to treat conservatively unless patient worsens clinically. Repeat CT abdomen and pelvis 08/23 mild diffuse colitis ID: Septic shock resolved UTI Ischemic colitis Fungemia Abx per ID -Continue Diflucan, Monitor for signs of infections ( Fever, WBC). Seen by Opth no evidence of endophthalmitis Pertinent cultures 08/23 - blood culture by line (actually peripheral) - coag neg staph 08/21 - blood culture - no growth 08/21 - sputum - no growth 08/21 - - no growth 08/21 - blood culture - Yeast Felipa parapsilosis 08/15 - CSF - negative 08/15 - sputum - no growth 08/14 - blood cultures 2 and UA - no growth C-diff PCR is negative, stool studies negative s/p LP showed clear CSF, 17 WBC, TP:45.2, HSV DNA PCR neg Endo: Hyperglycemia of critical illness/steroid SSI with Novolin R medium with Accu-Chek every 4 hours for glycemic control. TSH: 1.15. Heme: Leukocytosis Normocytic anemia B/L UE DVT Possible left common femoral vein DVT Left cephalic/basilic to professional and right superficial cephalic thrombus Monitor CBC, coags- heparin drip stopped on 08/30 and started on Lovenox 100 mg subcutaneously daily for full anticoagulation. Iron sulfate 300 mg twice a day. 1 unit PRBCs ordered to be transfused on 08/29 GI prophylaxis with famotidine and DVT prophylaxis with SCDs, Lovenox 100mg daily Lines: Peripheral IV's level 2 Don Youngblood MD Sep 05, 2017 07:09
[2017-09-05] MEDS ORDERED: SODIUM CHLORID 0.9% 500 ML INJ 500 ML IV ONE (07:15)
[2017-09-05] MEDS: SODIUM CHLORIDE 0.9% FLUSH 10 ML FLUSH IV FLUSH SCH ×3 (09:00→19:51)
[2017-09-05] MEDS: FOLIC ACID 1 MG TAB PO SCH (09:00)
[2017-09-05] MEDS: MULTIVITAMIN TAB PO SCH (09:00)
--- NOTE | 2017-09-05 09:35 | HHI.IDPN ---
Subjective Subjective Remarks ID [id number] Ms. Olson is an 82 year old female with past medical history of hypertension, possible sleep apnea, chronic neck pain, sciatica, alcohol abuse, arthritis, chronic rectal prolapse with bowel incontinence and anxiety. Patients daughter reports she was away for last week (normally she lives with Mom). She checked on her mom each night. The night prior to admission patient and daughter spoke to each other and no reported fever or change in behavior etc noted. No recent bounced checks, change in behavior, fires, falls or doors left unopened or such security concerns. She was found by her daughter lying in bed. On questioning patient was not found vomiting and no seizures. But patient was found in urine and feces. With this background patient presented to [facility] ER on when daughter arrived home to find patient laying on the bed covered in urine and feces. She was obtunded and 911 was called. Upon arrival to the ER: * VS - 100.2, HR 104, RR 18, BP 125/55, O2 sat 95% on room air. * WBC 10.2, hgb 13.8, hct 41.6, platelets 304, neutrophils 91.3% * BUN 52, creatinine 3.39, glucose 177, sodium 141, potassium 5.1, chloride 103 , GFR 13 * Lactic acid 6.3 * TCK 3855, CK-MB 113.6, CK-MB 2.9% * CT head - unremarkable * CXR - minimal basilar atelectasis, no effusion or pneumothorax Patient was admitted to the [facility] service for severe dehydration. acute renal failure, rhabdomyolysis, lactic acidosis, possible UTI, sepsis. Overnight she developed tachycardia, hypotension and hypoxemia. She was transferred to ICU placed on pressor support. She was started on heparin drip per PE protocol. Firer Glost Kiln was consulted for hypotension, septic shock. On non -rebreather with with oxygen saturation 90% and BP 79/50. Since admission she was intubated and placed on mech vent. Notes reviewed D/W RN Feels anxious On nasal O2 C/O sore throat States magic mouthwash not helping (ordered as swish and spit and prn) Not enough fluid in chest to tap By US has more fluid in R than L Temps ok No rash Stool liquid No abd pain Antibiotics Current Medications Medications (Trade) Dose Ordered Sig/Al Route Start Time Stop Time Status Last Admin (NS Flush) 2 ml UNSCH PRN IV FLUSH 08/15/17 02:00 09/04/17 07:49 (NS Flush) 2 ml BID IV FLUSH 08/15/17 09:00 09/04/17 21:06 (Narcan Inj) 0.4 mg UNSCH PRN IV PUSH 08/15/17 02:00 Miscellaneous Information Patient in critical care unit? Ass... Q361D .XX 08/15/17 06:15 08/15/17 06:15 (Romazicon Inj) 0.2 mg Q1M PRN IV PUSH 08/15/17 06:30 (Vitamin B1) 100 mg DAILY PO 08/15/17 12:00 09/04/17 07:41 (Theragran) 1 tab DAILY PO 08/15/17 12:00 09/04/17 07:41 (Folate) 1 mg DAILY PO 08/15/17 12:00 09/04/17 07:41 (Aspirin Chew) 81 mg DAILY OG-TUBE 08/15/17 19:00 09/04/17 07:41 (D50w (Vial) Inj) 50 ml UNSCH PRN IV PUSH 08/16/17 08:00 (Glucagon Inj) 1 mg UNSCH PRN OTHER 08/16/17 08:00 (Trandate Inj) 20 mg Q4H PRN IV PUSH 08/21/17 17:15 08/21/17 21:51 (Tears Naturale Opth Soln) 1 drop Q8HR EACH EYE 08/24/17 14:00 09/05/17 05:38 (Tylenol 650 Mg/ 20 ml Liq) 650 mg Q6H PRN NG 08/24/17 13:00 (Lanoxin Liq) 0.125 mg DAILY PO 08/25/17 09:00 09/04/17 07:47 (Ferrous Sulfate Liq) 300 mg BID PO 08/24/17 21:00 09/04/17 21:06 (NS Flush) DAILY IV FLUSH 08/25/17 09:00 09/04/17 07:49 (NS Flush) UNSCH PRN IV FLUSH 08/24/17 17:45 09/04/17 07:49 Miscellaneous Information D/C ICU ELECTROLYTE ORDERS... UNSCH PRN .XX 08/25/17 15:00 Miscellaneous Information ICU - CALL ORDERING PHYSIC... UNSCH PRN .XX 08/25/17 15:00 Potassium Chloride 100 ml @ 25 mls/hr UNSCH PRN IV 08/25/17 15:00 08/29/17 16:51 (K-Lyte Cl Eff) 50 meq UNSCH PRN PO 08/25/17 15:00 Potassium Chloride 100 ml @ 50 mls/hr UNSCH PRN IV 08/25/17 15:00 09/01/17 20:35 Magnesium Sulfate 4 gm/Sodium Chloride 108 ml @ 54 mls/hr UNSCH PRN IV 08/25/17 15:00 Magnesium Sulfate 2 gm/Sodium Chloride 104 ml @ 52 mls/hr UNSCH PRN IV 08/25/17 15:00 (Mag-Ox) 800 mg UNSCH PRN PO 08/25/17 15:00 Sodium Phosphate 30 mmol/Sodium Chloride 260 ml @ 43.333 mls/ hr UNSCH PRN IV 08/25/17 15:00 (K-Phos) 2,000 mg UNSCH PRN PO 08/25/17 15:00 Potassium Phosphate 30 mmol/ Sodium Chloride 260 ml @ 43.333 mls/ hr UNSCH PRN IV 08/25/17 15:00 09/02/17 08:07 (Atrovent Neb) 0.5 mg Q2HR NEB PRN NEB 08/26/17 08:00 (Atrovent Neb) 0.5 mg Q4HR NEB NEB 08/26/17 08:00 09/05/17 08:59 (Roxicodone) 5 mg Q6H PRN PO 08/27/17 13:00 (Morphine Inj) 1 mg Q4H PRN IV 08/27/17 11:00 08/31/17 14:38 Fluconazole/ Sodium Chloride 200 ml @ 100 mls/hr Q24H IV 08/28/17 08:00 09/04/17 07:47 Fluconazole/ Sodium Chloride 200 ml @ 100 mls/hr Q24H IV 08/28/17 10:00 09/04/17 07:47 (Benadryl) 25 mg Q4H PRN PO 08/29/17 11:30 (Brethine Inj) 1 mg UNSCH PRN SQ 08/29/17 14:00 (Pepcid) 10 mg BID NG 08/29/17 21:00 09/04/17 21:06 (Lovenox Inj) 100 mg Q24H SQ 08/30/17 15:00 09/04/17 16:11 (SoluMEDROL INJ) 40 mg Q12H IV PUSH 08/30/17 13:00 09/04/17 23:57 (Pill Splitter) 1 ea UNSCH PRN OTHER 08/30/17 13:00 09/01/17 09:12 (Magic Mouthwash Adult Liq) 5 ml QID PRN SWISH-SPIT 08/30/17 19:15 09/04/17 21:07 (Cardizem) 60 mg Q6HR PO 09/01/17 12:00 09/05/17 05:38 (Lopressor) 50 mg Q12HR PO 09/03/17 09:00 09/04/17 21:06 (Catapres) 0.2 mg Q8H PO 09/04/17 08:00 09/04/17 23:57 Lines PIV Line sites with no e.o infections. Past Medical History reviewed Allergies: Coded Allergies: No Known Allergies (Verified Allergy, Unknown, 08/15/17) Objective . Vital Signs Date Time Temp Pulse Resp B/P (MAP) Pulse Ox O2 Delivery O2 Flow Rate FiO2 09/05/17 09:00 91 Nasal Cannula 4.00 09/05/17 08:00 97.6 82 157/74 (101) 88 09/05/17 08:00 104 09/05/17 08:00 Nasal Cannula 2.00 09/05/17 06:00 104 09/05/17 04:00 97.9 101 19 146/83 (104) 93 09/05/17 04:00 95 Nasal Cannula 3.00 09/05/17 04:00 101 09/05/17 02:00 98 09/05/17 00:00 96 Nasal Cannula 3.00 09/05/17 00:00 88 09/05/17 00:00 98.4 88 19 122/96 (105) 96 09/04/17 23:54 95 Nasal Cannula 4.00 09/04/17 22:00 80 09/04/17 20:53 90 Nasal Cannula 4.00 09/04/17 20:00 80 09/04/17 20:00 96 Nasal Cannula 3.00 09/04/17 20:00 98.3 80 18 115/67 (83) 96 09/04/17 18:00 87 09/04/17 17:00 80 09/04/17 16:00 96 Nasal Cannula 3.00 09/04/17 16:00 98.1 89 12 142/98 (113) 09/04/17 16:00 89 09/04/17 15:00 80 18 122/80 (94) 09/04/17 15:00 80 09/04/17 14:00 93 126/85 (99) 09/04/17 14:00 93 09/04/17 13:00 86 135/68 (90) 09/04/17 13:00 86 09/04/17 12:00 93 Nasal Cannula 3.00 09/04/17 12:00 98.0 76 128/70 (89) 92 09/04/17 12:00 76 09/04/17 11:00 76 132/76 (94) 95 09/04/17 11:00 76 09/04/17 10:00 70 130/67 (88) 97 09/04/17 10:00 70 . Laboratory Tests Test 09/04/17 12:36 White Blood Count 7.3 TH/MM3 Red Blood Count 3.11 MIL/MM3 Hemoglobin 10.3 GM/DL Hematocrit 30.1 % Mean Corpuscular Volume 96.8 FL Mean Corpuscular Hemoglobin 33.2 PG Mean Corpuscular Hemoglobin Concent 34.3 % Red Cell Distribution Width 15.4 % Platelet Count 324 TH/MM3 Mean Platelet Volume 8.7 FL Neutrophils (%) (Auto) 82.9 % Lymphocytes (%) (Auto) 9.7 % Monocytes (%) (Auto) 6.6 % Eosinophils (%) (Auto) 0.1 % Basophils (%) (Auto) 0.7 % Neutrophils # (Auto) 6.0 TH/MM3 Lymphocytes # (Auto) 0.7 TH/MM3 Monocytes # (Auto) 0.5 TH/MM3 Eosinophils # (Auto) 0.0 TH/MM3 Basophils # (Auto) 0.0 TH/MM3 CBC Comment AUTO DIFF Differential Comment AUTO DIFF CONFIRMED Hematology Comments Laboratory Tests Test 09/04/17 12:56 Blood Urea Nitrogen 22 MG/DL Creatinine 0.68 MG/DL Random Glucose 137 MG/DL Calcium Level 7.9 MG/DL Phosphorus Level 2.5 MG/DL Magnesium Level 2.2 MG/DL Sodium Level 137 MEQ/L Potassium Level 4.2 MEQ/L Chloride Level 101 MEQ/L Carbon Dioxide Level 27.6 MEQ/L Anion Gap 8 MEQ/L Estimat Glomerular Filtration Rate 83 ML/MIN Imaging Last Impressions Abdomen X-Ray 08/21/17 0600 Signed Impressions: Service Date/Time: July 03:35 - CONCLUSION: The bowel gas pattern remains fairly unremarkable. Jl Stanley MD Chest X-Ray 08/21/17 0000 Signed Impressions: Service Date/Time: July 19:39 - CONCLUSION: 1. Stable tubes and lines, as above. 2. Worsening bilateral lower lung zone pleural parenchymal disease. Douglas Jean MD Lumbar Puncture Fluoroscopy 08/15/17 0000 Signed Impressions: Service Date/Time: Tuesday, August 15, 2017 15:36 - CONCLUSION: 1. Uncomplicated fluoroscopically guided lumbar puncture. 2. Please note, requested opening pressures were not obtained due to technical difficulties. Shashi Moreno MD Brain MRI 08/15/17 0000 Signed Impressions: Service Date/Time: Tuesday, August 15, 2017 16:57 - CONCLUSION: 1. 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 2. Mild stenosis in the upper cervical spine as above. Esau Martell MD Abdomen/Pelvis CT 08/15/17 0000 Signed Impressions: Service Date/Time: Wednesday, August 16, 2017 00:25 - CONCLUSION: 1. Abnormal thickening of the descending colonic wall and the possibility of colitis should be entertained. There is also thickening of distal ileal wall which may be inflammatory as well. 2. There is mild anasarca with edema or inflammatory changes within the bilateral paracolic gutters extending down into the pelvis. 3. Small bilateral pleural effusions and bibasilar atelectasis and/or infiltrate. 4. Prominent ileocecal valve and possibility of lipoma at this site is not excluded. Josseline Villagomez MD Abdomen Ultrasound 08/15/17 0000 Signed Impressions: Service Date/Time: Tuesday, August 15, 2017 10:40 - CONCLUSION: 1. No abnormality is identified to explain the clinical symptoms. There is no hydronephrosis. 2. The liver is normal in size and echotexture. Adan Machuca MD Head CT 08/14/172 Signed Impressions: Service Date/Time: July 22:54 - CONCLUSION: Unremarkable study. Josseline Villagomez MD Physical Exam GENERAL: Awake, following commands. NAD On nasal O2 SKIN: No rashes, ecchymoses or lesions. Warm and dry. HEAD: Atraumatic. Normocephalic. No temporal or scalp tenderness. EYES: Pupils equal round and reactive. Extraocular motions intact. No scleral icterus. No injection or drainage. Has mild scleral edema ENT: Moist oral mucosa, no nasal drainage NECK: Trachea midline. Supple, nontender, CARDIOVASCULAR: + murmur, no gallops, rub RESPIRATORY: Decreased BS at bases GASTROINTESTINAL: Abdomen soft, not distended, not tender, hypoactive bowels sounds, no guarding or rebound. MUSCULOSKELETAL: Extremities without clubbing. No calf tenderness. Negative Homans sign bilaterally. NEUROLOGICAL: Non focal Psych: Cooperative IV line sites with no e.o infection. Assessment & Plan Remarks Assessment and Plan Fungemia in setting of bilateral UE DVT will treat as Septic thrombophlebitis. C.Parapsilosis fungal septic thrombophlebitis. Sepsis. HCAP with effusions. Staph epidermidis: likely pseudobacteremia/contaminant. Specimen from old line, already removed. Acute resp failure on vent Acute metabolic encephalopathy: appears resolving. Alcohol abuse: at risk for withdrawal. Acute rhabdomyolysis: ? seizures. Acute renal failure: sepsis, prerenal, rhabdomyolysis. Colitis clinically and radiologically ; likely ischemic - C diff negative Recs: Continue Diflucan for C.Parapsilosis fungal septic thrombophlebitis and possible endocarditis. Repeat stool C diff, has increased frequency C.parapsilosis susceptibilities and Diflucan S. Will change magic mouthwash to swish and swallow and give before meals, not prn Monitor progress Spoke with daughter at bedside - updated on current work-up and treatment. D/W Ileana Alvarenga MD Sep 05, 2017 09:35
[2017-09-05] MEDS: FLUCONAZOLE 400 MG PREMIX BAG 200 ML IV SCH ×2 (09:53→12:04)
[2017-09-05] MEDS: FAMOTIDINE 20 MG TAB NG SCH ×2 (09:54→19:50)
[2017-09-05] MEDS: cloNIDine HCL 0.2 MG TAB PO SCH ×3 (09:54→23:48)
[2017-09-05] MEDS: DIGOXIN SOLUTION 0.125 MG/2.5 ML CUP PO SCH (09:54)
[2017-09-05] MEDS: THIAMINE HCL 100 MG TAB PO SCH (09:54)
[2017-09-05] MEDS: ASPIRIN 81 MG CHEW TAB OG-TUBE SCH (09:54)
[2017-09-05] MEDS: FERROUS SULFATE 300 MG /5ML UDC PO SCH ×2 (09:54→19:50)
[2017-09-05] MEDS: METOPROLOL TARTRATE 50 MG TAB PO SCH ×2 (10:12→19:50)
[2017-09-05] MEDS: NYSTAT/DIPHENHY/LIDO MOUTHWASH (Adult) 120ML SWISH-SWAL SCH ×3 (12:00→19:30)
[2017-09-05] MEDS: methylPREDNISolone SOD SUCC 40 MG/1 ML VIAL IV PUSH SCH ×2 (12:04→23:48)
--- NOTE | 2017-09-05 12:41 | MB ---
cc: Casimiro Myers DO DATE OF CONSULT: 09/05/2017 REASON FOR CONSULTATION: Atrial fibrillation. HISTORY OF PRESENT ILLNESS: Ally Olson is a pleasant 82-year-old female who originally presented to [facility] Emergency Room on 08/14/2017 due to mental status change. Apparently the patient's daughter went away for work out-of-town for 4 days and when she returned home, she found her mother in bed soaked in feces. Apparently per the daughter, she talked to her during her trip, as well as her son talked to her during the trip and she sounded drunk. Apparently the patient's baseline is that whenever her daughter is out of town she would binge drink. Since then, she has had a long drawn out course including being intubated, acute kidney injury with renal failure which has since resolved, rhabdomyolysis, among other things. She also was found to have positive blood cultures for yaw parapsilosis as well as staphylococcus hominis. She also underwent an echocardiogram on 08/31/2017 which showed a possible 2 mm mobile density consistent with endocarditis. On brain MRI, she had 2 areas of concern for acute CVAs. She was also found to have ischemic colitis which we are attempting to treat conservatively and lastly, she was found to have bilateral upper extremity DVTs, as well as a possible left common femoral DVT and has since been placed on Lovenox for anticoagulation. Throughout her hospitalization, she has had episodes of tachycardia consistent with atrial fibrillation with rapid ventricular response. In seeing her, she is currently asymptomatic from her atrial fibrillation. PAST MEDICAL HISTORY: 1. Arthritis. 2. Anxiety disorder. 3. Hypertension. PAST SURGICAL HISTORY: 1. Previous cataract surgery. 2. Colon resection post diverticulitis. 3. Hysterectomy. ALLERGIES: NO KNOWN DRUG ALLERGIES. MEDICATIONS: 1. Iron. 2. Aspirin. 3. Prinivil. 4. Librium. FAMILY HISTORY: Denies premature coronary artery disease or sudden cardiac within the family. SOCIAL HISTORY: The patient has a history of intermittent binge drinking. Denies tobacco or drug abuse. REVIEW OF SYSTEMS: Fourteen systems were reviewed as above. Pertinent positives and negatives as above, otherwise negative. PHYSICAL EXAM: VITAL SIGNS: Temperature 97.6, heart rate 104, blood pressure 157/74, respirations 18, pulse ox 91% on four liters. GENERAL: This patient is alert, awake and oriented in no acute distress. HEENT: Mucous membranes moist. Extraocular muscles intact. Pupils equal and reactive. NECK: Supple. No JVD at 45 degrees. No carotid bruits heard bilaterally. Carotid upstroke is brisk in nature. HEART: Irregularly irregular. Positive first and second heart sounds with no noted murmurs, gallops or rubs. LUNGS: Decreased breath sounds bilaterally with scattered rhonchi, but no wheezing or rales noted. ABDOMEN: Soft, nontender and nondistended. No organomegaly noted. EXTREMITIES: Show no clubbing or cyanosis. Trace edema bilaterally. NEUROLOGIC: No obvious focal deficits. SKIN: Warm, dry and intact. OSTEOPATHIC: No kyphoscoliosis, lordosis or paraspinal tender points. LAB WORK: Hemoglobin 10.3, hematocrit 30.1, platelets 324. Potassium 4.2, BUN 22, creatinine 0.68. IMPRESSIONS: 1. Atrial fibrillation with rapid ventricular response. 2. Acute metabolic encephalopathy which has since resolved. 3. Possible acute strokes of the left cerebellum, as well as right posterior occipital area. 4. 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 5. Fungemia. 6. Bilateral upper extremity DVT with possible left common femoral vein DVT. 7. Minimally elevated troponin most likely type 2 due to rhabdomyolysis. 8. Septic shot resolved. 9. Previous ischemic colitis. 10. Acute kidney injury/renal failure resolved. 11. Rhabdomyolysis resolved. 12. Acute respiratory failure status post mechanical ventilation, resolved. 13. Alcohol abuse. RECOMMENDATIONS: 1. Ms. Olson apparently has undergone an extensive hospitalization and during this she was found to have atrial fibrillation with rapid ventricular response. 2. She currently is on digoxin, metoprolol tartrate and Cardizem to try to control her heart rate. For now, I will attempt to try to increase her Cardizem for further heart rate control. Our other option is to consider increasing her digoxin as her levels of digoxin are 0.6. 3. As far as possible endocarditis, I reviewed her transthoracic echocardiogram and agree that there is a bulbous structure on the mitral valve. Overall, I agree with infectious disease that at this point her respiratory status is somewhat tedious and unsure of if she would not be intubated after the FERNANDO. For now, we will hold off, but this can be reassessed throughout her hospital course. 4. She will continue on antibiotics per infectious disease recommendation. 5. She did have minimal troponins, although this was secondary to her rhabdomyolysis. No further work up from my standpoint. 6. She is currently on full anticoagulation due to her upper extremity DVTs, as well as possible femoral DVT. 7. The case was discussed with the patient's daughter. Thank you for allowing me to see Ally Olson. If there are any questions, please do not hesitate to call. Greater than 60 minutes of critical care time was spent on review the long hospitalization, as well as discussing with the patient and her daughter, and other consultants. Casimiro Myers DO VGP/DL , 11:47 AM , 12:39 PM [id number]
[2017-09-05] MEDS: DILTIAZEM HCL 90 MG TAB PO SCH ×3 (12:52→23:48)
[2017-09-05 14:58] LABS: BICARBONATE 25.9 MEQ/L (21.0-32.0); CALCIUM 7.7 MG/DL (8.5-10.1); CREATININE 0.47 MG/DL (0.50-1.00); MAGNESIUM 2.2 MG/DL (1.5-2.5); PHOSPHORUS 2.6 MG/DL (2.5-4.9)
[2017-09-05 15:03] LABS: AUTOMATED NEUTROPHIL # 7.7 TH/MM3 (1.8-7.7); BASOPHIL % 0.2 % (0.0-2.0); HEMATOCRIT 31.4 % (35.0-46.0); LYMPH % 7.3 % (9.0-44.0); LYMPHOCYTE # 0.7 TH/MM3 (1.0-4.8); MEAN CELL VOLUME 99.4 FL (80.0-100.0); MEAN CORPUSCULAR HEMOGLOBIN 32.8 PG (27.0-34.0); MEAN PLATELET VOLUME 8.2 FL (7.0-11.0); MONO % 6.8 % (0.0-8.0); MONOCYTE # 0.6 TH/MM3 (0-0.9); NEUT % 85.7 % (16.0-70.0); PLATELET COUNT 307 TH/MM3 (150-450); RED BLOOD COUNT 3.16 MIL/MM3 (4.00-5.30); RED CELL DISTRIBUTION WIDTH 15.4 % (11.6-17.2)
[2017-09-05 15:08] LABS: HEMOGLOBIN 10.4 GM/DL (11.6-15.3)
[2017-09-05] MEDS: ENOXAPARIN SODIUM 100 MG/ML SYRINGE SQ SCH (15:40)
[2017-09-05 16:14] LABS: TARGET CELLS 1+ (NORMAL)
[2017-09-05] MEDS ORDERED: TEMAZEPAM 7.5 MG CAP PO ONE (21:00)
[2017-09-06] VITALS (13 sets, daily range): BP systolic 122–139; BP diastolic 66–85; PULSE 62–98; RESP 18–25; TEMP 96.8–98.2; O2SAT 88–99
[2017-09-06] MEDS: RESP: IPRATROPIUM 0.5 MG/2.5 ML NEB NEB SCH ×4 (01:01→11:30)
[2017-09-06 05:07] LABS: AUTOMATED NEUTROPHIL # 7.2 TH/MM3 (1.8-7.7); BASOPHIL % 0.1 % (0.0-2.0); HEMATOCRIT 31.9 % (35.0-46.0); HEMOGLOBIN 10.8 GM/DL (11.6-15.3); LYMPH % 6.4 % (9.0-44.0); LYMPHOCYTE # 0.5 TH/MM3 (1.0-4.8); MEAN CELL VOLUME 97.4 FL (80.0-100.0); MEAN CORPUSCULAR HEMOGLOBIN 32.9 PG (27.0-34.0); MEAN CORPUSCULAR HGB CONC 33.7 % (32.0-36.0); MEAN PLATELET VOLUME 8.1 FL (7.0-11.0); MONO % 5.4 % (0.0-8.0); MONOCYTE # 0.4 TH/MM3 (0-0.9); NEUT % 88.1 % (16.0-70.0); PLATELET COUNT 350 TH/MM3 (150-450); RED BLOOD COUNT 3.28 MIL/MM3 (4.00-5.30); RED CELL DISTRIBUTION WIDTH 15.9 % (11.6-17.2); WHITE BLOOD COUNT 8.2 TH/MM3 (4.0-11.0)
[2017-09-06 05:21] LABS: CALCIUM 8.4 MG/DL (8.5-10.1); CREATININE 0.5 MG/DL (0.50-1.00); MAGNESIUM 2.4 MG/DL (1.5-2.5)
[2017-09-06] MEDS: DILTIAZEM HCL 90 MG TAB PO SCH ×4 (05:36→23:12)
[2017-09-06] MEDS: ARTIFICIAL TEARS OPTH SOLN 15 ML BTL EACH EYE SCH ×3 (05:36→21:43)
[2017-09-06] MEDS: cloNIDine HCL 0.2 MG TAB PO SCH ×3 (07:45→23:12)
[2017-09-06] MEDS: FLUCONAZOLE 400 MG PREMIX BAG 200 ML IV SCH ×4 (07:47→13:20)
[2017-09-06] MEDS: NYSTAT/DIPHENHY/LIDO MOUTHWASH (Adult) 120ML SWISH-SWAL SCH ×4 (07:47→21:00)
[2017-09-06] MEDS: SODIUM CHLORIDE 0.9% FLUSH 10 ML FLUSH IV FLUSH SCH ×3 (09:00→21:42)
[2017-09-06] MEDS: FAMOTIDINE 20 MG TAB NG SCH ×2 (09:19→21:42)
[2017-09-06] MEDS: FOLIC ACID 1 MG TAB PO SCH (09:20)
[2017-09-06] MEDS: ASPIRIN 81 MG CHEW TAB OG-TUBE SCH (09:20)
[2017-09-06] MEDS: MULTIVITAMIN TAB PO SCH (09:20)
[2017-09-06] MEDS: DIGOXIN SOLUTION 0.125 MG/2.5 ML CUP PO SCH (09:20)
[2017-09-06] MEDS: FERROUS SULFATE 300 MG /5ML UDC PO SCH ×2 (09:20→21:42)
[2017-09-06] MEDS: THIAMINE HCL 100 MG TAB PO SCH (09:20)
[2017-09-06] MEDS: METOPROLOL TARTRATE 50 MG TAB PO SCH ×2 (09:25→21:41)
--- NOTE | 2017-09-06 12:20 | HHI.CCPN ---
Subjective Remarks/Hospital Course Patient is an 82-year-old female with past medical history of irritable bowel syndrome, hypertension, arthritis, diverticulitis who presented to the [facility] ED after she was found lying on her bed with urine and feces all around her bed. In addition, the patient was altered and obtunded. Most of the history was obtained from reviewing the medical records. Her laboratory data showed acute renal failure with BUN of 52, creatinine 3.39 and lactic acidosis with a lactic acid level of 6.3. In addition, the patient was in rhabdomyolysis with elevated CK at 3855. She was admitted under the hospitalist service; however, a [facility] was called due to worsening mental status, hypertension and hypoxemia. She was transferred to [facility] and critical care medicine was consulted for critical care management. When seen, the patient was lethargic, not following any commands, hypotensive. She was subsequently intubated by myself and a right internal jugular central line was placed for hemodynamic monitoring. ABG post intubation showed a pH of 7.31, co2 of 30, pA02 of 117, bicarbonate 15 and saturation of 96% on PRVC rate of 14, tidal volume 350 with IT:1, PEEP 5 and FIO2 of 100%. She was given two liter boluses of normal saline and placed on a bicarbonate drip. Her lactic acid level is trending down and is currently 3.4 from 6.3 on arrival. In addition, her renal function is improving with IV hydration. Her creatinine level is 2.29 from 3.39. Due to hypotension, Levophed was started. A CT scan of the brain in the emergency department was unremarkable. Her initial chest x-ray showed minimal basilar atelectasis, no effusions or pneumothoraces. According to the patient's family, the patient has been intermittently binge drinking. In addition, they report her having diarrhea for a few days. She had a low-grade fever with a temperature of 100.2 last night. 08/16 Patient is sedated with Fentanyl drip intubated and on Levophed 5 mics. On Bicarb drip. MRI brain yesterday showed small lacunar infarcts in left cerebellar hemisphere and right parietal lobe. Lp showed clear CSF, 17 wbc. Afebrile.Renal function worse today with Cr: 2.64 from 2.29 08/17 Patient remains sedated and intubated. On Bicarb drip. Off Levophed renal function slightly worse today with Cr: 2.82 from 2.64 and UOP: 550 ml in 24 hrs 08/18 Patient bit through ETT overnight s/p new ETT placement using tube exchanger. Sedated with Diprivan and Fentanyl. Afebrile. Renal function is improving with Cr: 1.97 from 2.82. On Bicarb drip. Tube feeds held for possible colonoscopy today. 08/19: Remains sedated, orally intubated on mechanical ventilation. Colonoscopy done yesterday revealed ischemic colitis. Has been evaluated by general surgery. Patient went into A. fib with RVR last night and was started on a Cardizem drip. On Levophed for hypotension 08/20: Remains sedated, orally intubated on mechanical ventilation. Started on TPN on 08/19. Cardizem drip turned off this morning. Received 1 dose of digoxin yesterday. 08/21: Remains sedated, orally intubated on mechanical ventilation. On TPN. Ordered Precedex as well as digoxin daily. Starting trophic feeds today. 08/22 Patient remains intubated on Precedex and Fentanyl infusion for sedation. afebrile. 08/23 WBC up to 17.7. Temp max 102.2. Blood culture sent today peripherally ( labelled as line draw initially but was not drawn from a line, lab notified to re-label). Tolerating trophic feeds. Awake and on CPAP 10/5 with RSBI 50s, became labored and desat with 5/5. Denies abdominal pain. Subjective: 08/24: Tmax 102.7 overnight. Currently 100.6. Noted yeast growing from blood culture 08/21. Remains in atrial fibrillation. Potassium currently been replaced. Currently only has once peripheral IV access. Will need central line placed later this afternoon. 08/25 Patient is awake and alert on CPAP trials. T: 101.1 last night. On Heparin and Bumex drips 08/26 Patient was extubated yesterday on 3L oxygen. She went into Afib with RVR last night given Labetalol. Afebrile. 08/27: Patient is slightly tachypneic, but maintaining O2 sat. chest x-ray shows at least moderate sized pleural effusions. Start Lasix 40 mg IV every 12 [address] Doe catheter for accurate intake output and also appears that patient has urinary retention. Remains in atrial fibrillation with RVR, on Cardizem at 15 mg per hour. 3: On BiPAP overnight. Currently on 4 L nasal cannula. Fluctuating neurologic status consistent with delirium. Remains on Cardizem drip at 5 mg per hour for A. fib with RVR. Diuresing well with Lasix. 3: Respiratory status borderline with tachypnea. Requiring intermittent BiPAP. Started on Precedex for anxiety. Dropped blood pressure. 1 unit PRBCs ordered. Solu-Medrol 125 mg IV 1 dose ordered as well. Scheduled for CT- guided thoracentesis for right side today. Heparin GTT held for thoracentesis. Chest x-ray with bilateral pleural effusions despite diuresis. 08/30: Seems to be breathing a little better. Was on BiPAP overnight. Currently on nasal cannula. Knows she is at the hospital and follows commands appropriately. Underwent bilateral thoracentesis yesterday with drainage of 500 cc from right side and 300 cc from left. On Precedex which appears to be working well for anxiety. 08/31: Remains on nasal cannula. Did not use BiPAP at night. Awake and alert. Following commands appropriately. By mouth intake remains borderline. On Precedex 0.2 mics per KG per hour. 09/01 Patient is on 3L oxygen with good sats, hypertensive Remains on Precedex 0.2 mics per KG per hour 09/02 No events overnight. Off Precedex drip. Afebrile. On 3L oxygen. 09/03 Patient is awake, alert remains on 3L oxygen, Afebrile. Requesting something to help her sleep. 09/04 Patient is on 3L oxygen. Afebrile. 09/05 Patient is lying in bed in NAD. Thoracentesis couldn't be done by IR as pleural effusion is too small per CT images. Afebrile. Subjective: 09/06 On 3 L nasal cannula. Has a lunch tray and is feeding herself with nurse encouragement. Afebrile. Afib rate controlled 70s to 80s. Patient complains of inability to sleep at night. Stool C diff ordered today per ID due to increased stool frequency. Objective Vital Signs Date Time Temp Pulse Resp B/P (MAP) Pulse Ox O2 Delivery O2 Flow Rate FiO2 09/06/17 10:00 66 09/06/17 08:00 Nasal Cannula 3.00 09/06/17 08:00 97.2 18 134/73 (93) 96 Intake and Output 09/06/17 09/06/17 09/06/17 07:59 15:59 23:59 Intake Total 240 ml Output Total 700 ml Balance -460 ml Result Diagram: 09/06/177 09/06/17 0407 Imaging Last Impressions Thoracentesis 09/04/17 0000 Signed Impressions: Service Date/Time: August 15:12 - CONCLUSION: 1. Small bilateral pleural effusions with concomitant atelectatic changes. 2. Fluid collections are too small to safely drain percutaneously with CT. Shashi Moreno MD Chest X-Ray 09/04/17 0000 Signed Impressions: Service Date/Time: August 07:29 - CONCLUSION: 1. Persistent bibasilar effusions with common atelectatic changes, basically unchanged. 2. Left IJ central venous catheter has been removed. Shashi Moreno MD Chest Ultrasound 09/04/17 0000 Signed Impressions: Service Date/Time: August 09:23 - CONCLUSION: Right pleural effusion as above. Shashi Moreno MD Chest CT 08/29/17 0000 Signed Impressions: Service Date/Time: Tuesday, August 29, 2017 14:48 - CONCLUSION: Following thoracentesis there is decreasing amount of effusion. Significant consolidation persists. There is no pneumothorax. Juan J Joel MD FACR Abdomen/Pelvis CT 08/23/17 1426 Signed Impressions: Service Date/Time: Wednesday, August 23, 2017 22:50 - CONCLUSION: 1. Suspected mild diffuse colitis, nonspecific but presumably infectious or inflammatory. No obstruction or abscess. 2. Trace ascites about the same there is worsening anasarca and worsening pleural effusions and consolidation of both lung bases. 3. Tiny nonobstructing stone of the right kidney and a generally benign appearing cyst lower pole the left kidney. No evidence of obstructive uropathy or other etiology for acute renal failure. 4. Atherosclerotic aorta. No aneurysm. Adan Nunes MD Upper Extremity Ultrasound 08/23/17 0000 Signed Impressions: Service Date/Time: Wednesday, August 23, 2017 16:25 - CONCLUSION: Bilateral upper extremity DVT as described above. Samuel Peralta MD Lower Extremity Ultrasound 08/23/17 0000 Signed Impressions: Service Date/Time: Wednesday, August 23, 2017 15:50 - CONCLUSION: 1. There is incomplete compression of the left common femoral vein raising suspicion for nonocclusive thrombus. This vessel, however, still demonstrates normal Doppler blood flow and respiratory variability. 2. The remaining veins of the left lower extremity are patent and the entire right lower extremity is patent without thrombus. Adan Machuca MD Abdomen X-Ray 08/21/17 0600 Signed Impressions: Service Date/Time: July 03:35 - CONCLUSION: The bowel gas pattern remains fairly unremarkable. Jl Stanley MD Lumbar Puncture Fluoroscopy 08/15/17 0000 Signed Impressions: Service Date/Time: Tuesday, August 15, 2017 15:36 - CONCLUSION: 1. Uncomplicated fluoroscopically guided lumbar puncture. 2. Please note, requested opening pressures were not obtained due to technical difficulties. Shashi Moreno MD Brain MRI 08/15/17 0000 Signed Impressions: Service Date/Time: Tuesday, August 15, 2017 16:57 - CONCLUSION: 1. 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 2. Mild stenosis in the upper cervical spine as above. Esau Martell MD Abdomen Ultrasound 08/15/17 0000 Signed Impressions: Service Date/Time: Tuesday, August 15, 2017 10:40 - CONCLUSION: 1. No abnormality is identified to explain the clinical symptoms. There is no hydronephrosis. 2. The liver is normal in size and echotexture. Adan Machuca MD Head CT 08/14/172231 Signed Impressions: Service Date/Time: July 22:54 - CONCLUSION: Unremarkable study. KStepan Villagomez MD Objective Remarks GENERAL: 82-year-old female currently sitting up in bed on nasal cannula SKIN: Warm and dry. HEAD: Normocephalic. EYES: R pupil 3 mm reactive, L pupil 4 mm reactive. Pallor present, No scleral icterus. No injection or drainage. NECK: Supple, trachea midline. No JVD or lymphadenopathy. Right IJ site without erythema CARDIOVASCULAR: S1-S2 irregularly irregular, Afib rate 70s on monitor. I am unable to appreciate murmur. RESPIRATORY: On nasal cannula, diminished breath sounds bilateral bases. No wheezing, rales or rhonchi appreciated. GASTROINTESTINAL: Abdomen soft, non-tender, nondistended. Bowel sounds hypoactive but present. No guarding or rigidity : Doe in place. MUSCULOSKELETAL: Trace edema, more prominent LUE. NEURO: Awake alert oriented 3, conversant. 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 Temazepam 30 mg qhs prn sleep. 08/15: CT brain negative for acute intracranial process MRI brain: Small lacunar infarcts in left cerebellar hemisphere and right parietal lobe EEG: Severe encephalopathy Repeat EEG 08/21.- generalized slowing, no epileptiform features Continue thiamine, multivitamin and folic acid daily. Neuro is following- Dr. Danielle LP showed clear CSF, 17 WBC, TP:45.2 Generally weak - PT and OT following. PT recommending acute rehab Pulm: Acute respiratory failure, resolved Bilateral pleural effusions Continue with oxygen keep sat >92% Bronchodilators, CXR showed bibasilar effusions with atelectatic changes Incentive spirometry Q1 hr while awake. Acapella q6 hours with Duoneb CXR 09/04: bibasilar effusions with common atelectatic changes, Status post bilateral CT-guided thoracentesis by IR on 08/29 with drainage of 500 cc of pleural fluid on right and 300 cc from left(transudative fluid) Thoracentesis wasn't done by IR on 09/04 as pleural effusion is too small per CT images. Solu-Medrol 125 mg IV 1 dose on 08/29 for worsening respiratory status with possible underlying COPD. Solu-Medrol 40 mg IV every 12 hourly started 08/30. Taper to prednisone 20 mg po daily and d/c solumedrol. CV: Atrial fibrillation, with RVR Systolic heart failure unknown if acute or chronic Elevated troponin Fluid overload Hypotension Mild moderate MR with ?mitral valve endocarditis Monitor HR and BP keep MAP>65mmHg. On Lopressor 50mg Q12, Digoxin 0.125 mg daily. Digoxin level 0.6 on 09/01. Cardizem 90mg Q6, Clonidine0.2mg Q8 Repeat Echo showed EF 45-50%, Lateral leaflet mitral valve with a 2 mm mobile density, consistent with ? endocarditis Cardiology following, Dr. Myers. Discussed with Dr. Myers who will defer FERNANDO for now unless recurrent blood culture positivity. Continue aspirin 81 mg by mouth daily/home medication Renal/FEN/: Acute kidney injury, resolved Lactic acidemia, resolved Rhabdomyolysis resolved Right-sided nephrolithiasis/nonobstructing Left renal cyst Monitor renal function, intake and output and avoid nephrotoxins. Renal has followed-Dr. Figueroa, US abdomen: No hydronephrosis CT Abd/pelvis revealed nonobstructing right-sided nephrolithiasis and left renal cyst. D/c Doe, use purewick catheter if needed. GI: Ischemic colitis, resolved Severe acute on Chronic protein energy malnutrition AST elevation secondary to alcohol use Internal and external hemorrhoids Regular diet, no consistency restrictions per speech. Ensure with each meal. F/u stool C diff ordered 09/06 per ID Monitor LFT periodically while on diflucan. On famotidine 10 mg twice a day for GI prophylaxis. US liver: No abnormalities identified GI is following- colonoscopy showed diffuse colitis in the sigmoid colon and descending colon; Necrotic, dusky appearing mucosa. Consistent with severe ischemic colitis. General surgery, Dr. Guadalupe -plan to treat conservatively unless patient worsens clinically. Repeat CT abdomen and pelvis 08/23 mild diffuse colitis ID: Septic shock resolved UTI Ischemic colitis Fungemia - Felipa parapsilosis Abx per ID -Continue Diflucan 800 mg IV daily (400 mg IV over 2 hours x2) , Monitor for signs of infections ( Fever, WBC). Seen by Opth no evidence of endophthalmitis Pertinent cultures 08/29 pleural fluid culture NGTD. 08/26 and 08/29 blood cultures Negative 08/23 - blood culture by line (actually peripheral) - Staph hominus 08/21 - blood culture - no growth 08/21 - sputum - no growth 08/21 - - no growth 08/21 - blood culture - Felipa parapsilosis 08/15 - CSF - negative 08/15 - sputum - no growth 08/14 - blood cultures 2 and UA - no growth C-diff PCR is negative, stool studies negative s/p LP showed clear CSF, 17 WBC, TP:45.2, HSV DNA PCR neg Endo: Hyperglycemia of critical illness/steroid Monitor glucose ac/hs and use low dose sliding scale as indicated. TSH: 1.15. Heme: Leukocytosis Normocytic anemia B/L UE DVT Possible left common femoral vein DVT Left cephalic/basilic to professional and right superficial cephalic thrombus Monitor CBC, coags- heparin drip stopped on 08/30 and started on Lovenox 100 mg subcutaneously daily for full anticoagulation. Iron sulfate 300 mg twice a day. 1 unit PRBCs ordered to be transfused on 08/29 GI prophylaxis with famotidine and DVT prophylaxis with SCDs, Lovenox 100mg subcut daily Lines: Peripheral IV's Full code Palliative care has seen. Goals of care aggressive. Out of bed with assist. PT/OT. Transition to rehab when appropriate from ID standpoint (following up C diff). No plan for FERNANDO at this time per cardiology. (Patient being followed by [facility]). Level 2 followup. Breanne Robison MD Sep 06, 2017 12:20
[2017-09-06] MEDS: methylPREDNISolone SOD SUCC 40 MG/1 ML VIAL IV PUSH SCH (12:34)
[2017-09-06] MEDS ORDERED: TEMAZEPAM 15 MG CAP PO PRN (12:45)
[2017-09-06] MEDS ORDERED: GLUCAGON 1 MG/ML VIAL OTHER PRN (12:45)
[2017-09-06] MEDS ORDERED: DEXTROSE 50% IN WATER 50 ML VIAL(D50) IV PUSH PRN (12:45)
--- NOTE | 2017-09-06 14:31 | PD.CARD.PN ---
Subjective Subjective Remarks No events overnight Heart rates better controlled Objective Medications Current Medications Medications (Trade) Dose Ordered Sig/Al Route Start Time Stop Time Status Last Admin (NS Flush) 2 ml UNSCH PRN IV FLUSH 08/15/17 02:00 09/04/17 07:49 (NS Flush) 2 ml BID IV FLUSH 08/15/17 09:00 09/06/17 09:18 (Narcan Inj) 0.4 mg UNSCH PRN IV PUSH 08/15/17 02:00 Miscellaneous Information Patient in critical care unit? Ass... Q361D .XX 08/15/17 06:15 08/15/17 06:15 (Vitamin B1) 100 mg DAILY PO 08/15/17 12:00 09/06/17 09:20 (Theragran) 1 tab DAILY PO 08/15/17 12:00 09/06/17 09:20 (Folate) 1 mg DAILY PO 08/15/17 12:00 09/06/17 09:20 (Aspirin Chew) 81 mg DAILY OG-TUBE 08/15/17 19:00 09/06/17 09:20 (D50w (Vial) Inj) 50 ml UNSCH PRN IV PUSH 08/16/17 08:00 (Glucagon Inj) 1 mg UNSCH PRN OTHER 08/16/17 08:00 (Trandate Inj) 20 mg Q4H PRN IV PUSH 08/21/17 17:15 08/21/17 21:51 (Tears Naturale Opth Soln) 1 drop Q8HR EACH EYE 08/24/17 14:00 09/06/17 13:23 (Tylenol 650 Mg/ 20 ml Liq) 650 mg Q6H PRN NG 08/24/17 13:00 (Lanoxin Liq) 0.125 mg DAILY PO 08/25/17 09:00 09/06/17 09:20 (Ferrous Sulfate Liq) 300 mg BID PO 08/24/17 21:00 09/06/17 09:20 (NS Flush) DAILY IV FLUSH 08/25/17 09:00 09/04/17 07:49 (NS Flush) UNSCH PRN IV FLUSH 08/24/17 17:45 09/04/17 07:49 Miscellaneous Information D/C ICU ELECTROLYTE ORDERS... UNSCH PRN .XX 08/25/17 15:00 Miscellaneous Information ICU - CALL ORDERING PHYSIC... UNSCH PRN .XX 08/25/17 15:00 Potassium Chloride 100 ml @ 25 mls/hr UNSCH PRN IV 08/25/17 15:00 08/29/17 16:51 (K-Lyte Cl Eff) 50 meq UNSCH PRN PO 08/25/17 15:00 Potassium Chloride 100 ml @ 50 mls/hr UNSCH PRN IV 08/25/17 15:00 09/01/17 20:35 Magnesium Sulfate 4 gm/Sodium Chloride 108 ml @ 54 mls/hr UNSCH PRN IV 08/25/17 15:00 Magnesium Sulfate 2 gm/Sodium Chloride 104 ml @ 52 mls/hr UNSCH PRN IV 08/25/17 15:00 (Mag-Ox) 800 mg UNSCH PRN PO 08/25/17 15:00 Sodium Phosphate 30 mmol/Sodium Chloride 260 ml @ 43.333 mls/ hr UNSCH PRN IV 08/25/17 15:00 (K-Phos) 2,000 mg UNSCH PRN PO 08/25/17 15:00 Potassium Phosphate 30 mmol/ Sodium Chloride 260 ml @ 43.333 mls/ hr UNSCH PRN IV 08/25/17 15:00 09/02/17 08:07 (Atrovent Neb) 0.5 mg Q2HR NEB PRN NEB 08/26/17 08:00 (Roxicodone) 5 mg Q6H PRN PO 08/27/17 13:00 (Morphine Inj) 1 mg Q4H PRN IV 08/27/17 11:00 08/31/17 14:38 Fluconazole/ Sodium Chloride 200 ml @ 100 mls/hr Q24H IV 08/28/17 08:00 09/06/17 08:00 Fluconazole/ Sodium Chloride 200 ml @ 100 mls/hr Q24H IV 08/28/17 10:00 09/06/17 13:20 (Benadryl) 25 mg Q4H PRN PO 08/29/17 11:30 (Pepcid) 10 mg BID NG 08/29/17 21:00 09/06/17 09:19 (Lovenox Inj) 100 mg Q24H SQ 08/30/17 15:00 09/05/17 15:40 (Pill Splitter) 1 ea UNSCH PRN OTHER 08/30/17 13:00 09/01/17 09:12 (Lopressor) 50 mg Q12HR PO 09/03/17 09:00 09/06/17 09:25 (Catapres) 0.2 mg Q8H PO 09/04/17 08:00 09/06/17 07:45 (Magic Mouthwash Adult Liq) 5 ml ACHS SWISH-SWAL 09/05/17 12:00 09/06/17 12:35 (Cardizem) 90 mg Q6HR PO 09/05/17 12:00 09/06/17 12:34 (Restoril) 30 mg HS PRN PO 09/06/17 12:45 (Duoneb Neb) 1 ampule Q6HR NEB NEB 09/06/17 16:00 (Deltasone) 10 mg DAILY PO 09/07/17 09:00 (NovoLOG SUPPLEMENTAL SCALE) 1 ACHS SLIDING SCALE SQ 09/06/17 17:00 Vital Signs / I&O Vital Signs Date Time Temp Pulse Resp B/P (MAP) Pulse Ox O2 Delivery O2 Flow Rate FiO2 09/06/17 10:00 66 09/06/17 08:00 Nasal Cannula 3.00 09/06/17 08:00 97.2 86 18 134/73 (93) 96 09/06/17 08:00 86 09/06/17 06:00 83 09/06/17 04:00 74 09/06/17 04:00 97.9 74 18 136/76 (96) 93 09/06/17 04:00 Nasal Cannula 3.00 09/06/17 02:00 74 09/06/17 00:00 Nasal Cannula 3.00 09/06/17 00:00 97.8 98 19 139/80 (99) 97 09/06/17 00:00 98 09/05/17 22:00 91 09/05/17 20:22 95 Nasal Cannula 4.00 09/05/17 20:00 78 09/05/17 20:00 98.2 78 18 125/82 (96) 94 09/05/17 20:00 Nasal Cannula 3.00 09/05/17 18:00 104 09/05/17 16:00 98.0 65 92 09/05/17 16:00 Nasal Cannula 3.00 09/05/17 16:00 104 I/O 09/05/17 09/05/17 09/05/17 09/06/17 09/06/17 09/06/17 07:00 15:00 23:00 07:00 15:00 23:00 Intake Total 600 ml 1060 ml 240 ml Output Total 750 ml 2300 ml 700 ml Balance -150 ml -1240 ml -460 ml Intake Oral 600 ml 560 ml 240 ml IV Total 500 ml Output Urine Total 750 ml 2300 ml 700 ml # Bowel Movements 2 4 2 Physical Exam GENERAL: NAD, AAOx3 SKIN: Warm and dry. HEAD: Atraumatic. Normocephalic. EYES: Pupils equal and round. No scleral icterus. No injection or drainage. ENT: No nasal bleeding or discharge. Mucous membranes pink and moist. NECK: Trachea midline. No JVD. CARDIOVASCULAR: Irregularly irregular RESPIRATORY: No accessory muscle use. Clear to auscultation. Breath sounds equal bilaterally. GASTROINTESTINAL: Abdomen soft, non-tender, nondistended. Hepatic and splenic margins not palpable. MUSCULOSKELETAL: Extremities without clubbing, cyanosis, or edema. No obvious deformities. NEUROLOGICAL: Awake and alert. No obvious cranial nerve deficits. Motor grossly within normal limits. Five out of 5 muscle strength in the arms and legs. Normal speech. PSYCHIATRIC: Appropriate mood and affect; insight and judgment normal. Laboratory Laboratory Tests Test 09/06/17 04:07 White Blood Count 8.2 TH/MM3 Red Blood Count 3.28 MIL/MM3 Hemoglobin 10.8 GM/DL Hematocrit 31.9 % Mean Corpuscular Volume 97.4 FL Mean Corpuscular Hemoglobin 32.9 PG Mean Corpuscular Hemoglobin Concent 33.7 % Red Cell Distribution Width 15.9 % Platelet Count 350 TH/MM3 Mean Platelet Volume 8.1 FL Neutrophils (%) (Auto) 88.1 % Lymphocytes (%) (Auto) 6.4 % Monocytes (%) (Auto) 5.4 % Eosinophils (%) (Auto) 0.0 % Basophils (%) (Auto) 0.1 % Neutrophils # (Auto) 7.2 TH/MM3 Lymphocytes # (Auto) 0.5 TH/MM3 Monocytes # (Auto) 0.4 TH/MM3 Eosinophils # (Auto) 0.0 TH/MM3 Basophils # (Auto) 0.0 TH/MM3 CBC Comment DIFF FINAL Differential Comment Blood Urea Nitrogen 18 MG/DL Creatinine 0.50 MG/DL Random Glucose 118 MG/DL Calcium Level 8.4 MG/DL Phosphorus Level 3.0 MG/DL Magnesium Level 2.4 MG/DL Sodium Level 138 MEQ/L Potassium Level 4.4 MEQ/L Chloride Level 103 MEQ/L Carbon Dioxide Level 26.0 MEQ/L Anion Gap 9 MEQ/L Estimat Glomerular Filtration Rate 118 ML/MIN Assessment and Plan Problem List: (1) Atrial fibrillation ICD Codes: I48.91 - Unspecified atrial fibrillation (2) Fungemia ICD Codes: B49 - Unspecified mycosis (3) Weakness ICD Codes: R53.1 - Weakness (4) Pain ICD Codes: R52 - Pain, unspecified (5) Hypotension ICD Codes: I95.9 - Hypotension, unspecified (6) Altered mental status ICD Codes: R41.82 - Altered mental status, unspecified (7) UTI (urinary tract infection) ICD Codes: N39.0 - Urinary tract infection, site not specified (8) Tachycardia ICD Codes: R00.0 - Tachycardia, unspecified (9) Rhabdomyolysis ICD Codes: M62.82 - Rhabdomyolysis (10) Dyspnea ICD Codes: R06.00 - Dyspnea, unspecified (11) Anxiety ICD Codes: F41.9 - Anxiety disorder, unspecified (12) Acute renal failure ICD Codes: N17.9 - Acute kidney failure, unspecified (13) Septic shock ICD Codes: A41.9 - Sepsis, unspecified organism; R65.21 - Severe sepsis with septic shock (14) Acute respiratory failure ICD Codes: J96.00 - Acute respiratory failure, unspecified whether with hypoxia or hypercapnia (15) Alcohol abuse ICD Codes: F10.10 - Alcohol abuse, uncomplicated Assessment and Plan 1) AFib with RVR Now controlled on Digoxin, metoprolol tartrate and Cardizem If further episodes, may need to increase Digoxin 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
[2017-09-06] MEDS: RESP: ALBUTEROL 2.5 MG/IPRATROPIUM 0.5 MG NEB (SCH) NEB ×2 (15:13→18:56)
[2017-09-06] MEDS: ENOXAPARIN SODIUM 100 MG/ML SYRINGE SQ SCH (15:18)
[2017-09-06] MEDS: INSULIN ASPART SUPPLEMENTAL SCALE SQ SCH ×2 (17:00→21:00)
[2017-09-07] VITALS (14 sets, daily range): BP systolic 111–143; BP diastolic 58–79; PULSE 59–95; RESP 17–20; TEMP 96.4–98.1; O2SAT 80–95
[2017-09-07] MEDS: RESP: ALBUTEROL 2.5 MG/IPRATROPIUM 0.5 MG NEB (SCH) NEB ×4 (03:18→22:46)
[2017-09-07] MEDS: DILTIAZEM HCL 90 MG TAB PO SCH ×4 (06:47→23:14)
[2017-09-07] MEDS: ARTIFICIAL TEARS OPTH SOLN 15 ML BTL EACH EYE SCH ×2 (06:48→14:30)
[2017-09-07] MEDS: FLUCONAZOLE 400 MG PREMIX BAG 200 ML IV SCH ×2 (07:43→10:00)
[2017-09-07] MEDS: cloNIDine HCL 0.2 MG TAB PO SCH ×3 (07:44→23:14)
[2017-09-07] MEDS: INSULIN ASPART SUPPLEMENTAL SCALE SQ SCH ×4 (07:44→21:00)
[2017-09-07] MEDS: NYSTAT/DIPHENHY/LIDO MOUTHWASH (Adult) 120ML SWISH-SWAL SCH ×4 (07:47→21:00)
[2017-09-07] MEDS: MULTIVITAMIN TAB PO SCH (08:39)
[2017-09-07] MEDS: SODIUM CHLORIDE 0.9% FLUSH 10 ML FLUSH IV FLUSH SCH ×3 (08:39→21:00)
[2017-09-07] MEDS: DIGOXIN SOLUTION 0.125 MG/2.5 ML CUP PO SCH (08:40)
[2017-09-07] MEDS: FOLIC ACID 1 MG TAB PO SCH (08:40)
[2017-09-07] MEDS: predniSONE 10 MG TAB PO SCH (08:40)
[2017-09-07] MEDS: THIAMINE HCL 100 MG TAB PO SCH (08:40)
[2017-09-07] MEDS: METOPROLOL TARTRATE 50 MG TAB PO SCH ×2 (08:40→21:00)
[2017-09-07] MEDS: ASPIRIN 81 MG CHEW TAB OG-TUBE SCH (08:40)
[2017-09-07] MEDS: FAMOTIDINE 20 MG TAB NG SCH ×2 (08:40→21:00)
[2017-09-07] MEDS: FERROUS SULFATE 300 MG /5ML UDC PO SCH ×2 (08:42→21:00)
--- NOTE | 2017-09-07 10:43 | HHI.IDPN ---
Subjective Subjective Remarks ID [id number] Ms. Olson is an 82 year old female with past medical history of hypertension, possible sleep apnea, chronic neck pain, sciatica, alcohol abuse, arthritis, chronic rectal prolapse with bowel incontinence and anxiety. Patients daughter reports she was away for last week (normally she lives with Mom). She checked on her mom each night. The night prior to admission patient and daughter spoke to each other and no reported fever or change in behavior etc noted. No recent bounced checks, change in behavior, fires, falls or doors left unopened or such security concerns. She was found by her daughter lying in bed. On questioning patient was not found vomiting and no seizures. But patient was found in urine and feces. With this background patient presented to [facility] ER on when daughter arrived home to find patient laying on the bed covered in urine and feces. She was obtunded and 911 was called. Upon arrival to the ER: * VS - 100.2, HR 104, RR 18, BP 125/55, O2 sat 95% on room air. * WBC 10.2, hgb 13.8, hct 41.6, platelets 304, neutrophils 91.3% * BUN 52, creatinine 3.39, glucose 177, sodium 141, potassium 5.1, chloride 103 , GFR 13 * Lactic acid 6.3 * TCK 3855, CK-MB 113.6, CK-MB 2.9% * CT head - unremarkable * CXR - minimal basilar atelectasis, no effusion or pneumothorax Patient was admitted to the [facility] Hospitalist service for severe dehydration. acute renal failure, rhabdomyolysis, lactic acidosis, possible UTI, sepsis. Overnight she developed tachycardia, hypotension and hypoxemia. She was transferred to ICU placed on pressor support. She was started on heparin drip per PE protocol. Walking Dragline Operator was consulted for hypotension, septic shock. On non -rebreather with with oxygen saturation 90% and BP 79/50. Since admission she was intubated and placed on mech vent. Notes reviewed Temps ok Feels better Swallowing better On nasal O2 No rash Stool liquid No abd pain repeat C diff negative Antibiotics Current Medications Medications (Trade) Dose Ordered Sig/Al Route Start Time Stop Time Status Last Admin (NS Flush) 2 ml UNSCH PRN IV FLUSH 08/15/17 02:00 09/04/17 07:49 (NS Flush) 2 ml BID IV FLUSH 08/15/17 09:00 09/07/17 08:39 (Narcan Inj) 0.4 mg UNSCH PRN IV PUSH 08/15/17 02:00 Miscellaneous Information Patient in critical care unit? Ass... Q361D .XX 08/15/17 06:15 08/15/17 06:15 (Vitamin B1) 100 mg DAILY PO 08/15/17 12:00 09/07/17 08:40 (Theragran) 1 tab DAILY PO 08/15/17 12:00 09/07/17 08:39 (Folate) 1 mg DAILY PO 08/15/17 12:00 09/07/17 08:40 (Aspirin Chew) 81 mg DAILY OG-TUBE 08/15/17 19:00 09/07/17 08:40 (D50w (Vial) Inj) 50 ml UNSCH PRN IV PUSH 08/16/17 08:00 (Glucagon Inj) 1 mg UNSCH PRN OTHER 08/16/17 08:00 (Trandate Inj) 20 mg Q4H PRN IV PUSH 08/21/17 17:15 08/21/17 21:51 (Tears Naturale Opth Soln) 1 drop Q8HR EACH EYE 08/24/17 14:00 09/07/17 06:48 (Tylenol 650 Mg/ 20 ml Liq) 650 mg Q6H PRN NG 08/24/17 13:00 (Lanoxin Liq) 0.125 mg DAILY PO 08/25/17 09:00 09/07/17 08:40 (Ferrous Sulfate Liq) 300 mg BID PO 08/24/17 21:00 09/07/17 08:42 (NS Flush) DAILY IV FLUSH 08/25/17 09:00 09/07/17 08:39 (NS Flush) UNSCH PRN IV FLUSH 08/24/17 17:45 09/04/17 07:49 Miscellaneous Information D/C ICU ELECTROLYTE ORDERS... UNSCH PRN .XX 08/25/17 15:00 Miscellaneous Information ICU - CALL ORDERING PHYSIC... UNSCH PRN .XX 08/25/17 15:00 Potassium Chloride 100 ml @ 25 mls/hr UNSCH PRN IV 08/25/17 15:00 08/29/17 16:51 (K-Lyte Cl Eff) 50 meq UNSCH PRN PO 08/25/17 15:00 Potassium Chloride 100 ml @ 50 mls/hr UNSCH PRN IV 08/25/17 15:00 09/01/17 20:35 Magnesium Sulfate 4 gm/Sodium Chloride 108 ml @ 54 mls/hr UNSCH PRN IV 08/25/17 15:00 Magnesium Sulfate 2 gm/Sodium Chloride 104 ml @ 52 mls/hr UNSCH PRN IV 08/25/17 15:00 (Mag-Ox) 800 mg UNSCH PRN PO 08/25/17 15:00 Sodium Phosphate 30 mmol/Sodium Chloride 260 ml @ 43.333 mls/ hr UNSCH PRN IV 08/25/17 15:00 (K-Phos) 2,000 mg UNSCH PRN PO 08/25/17 15:00 Potassium Phosphate 30 mmol/ Sodium Chloride 260 ml @ 43.333 mls/ hr UNSCH PRN IV 08/25/17 15:00 09/02/17 08:07 (Atrovent Neb) 0.5 mg Q2HR NEB PRN NEB 08/26/17 08:00 09/06/17 23:22 (Roxicodone) 5 mg Q6H PRN PO 08/27/17 13:00 (Morphine Inj) 1 mg Q4H PRN IV 08/27/17 11:00 08/31/17 14:38 Fluconazole/ Sodium Chloride 200 ml @ 100 mls/hr Q24H IV 08/28/17 08:00 09/07/17 07:43 Fluconazole/ Sodium Chloride 200 ml @ 100 mls/hr Q24H IV 08/28/17 10:00 09/06/17 13:20 (Benadryl) 25 mg Q4H PRN PO 08/29/17 11:30 (Lovenox Inj) 100 mg Q24H SQ 08/30/17 15:00 09/06/17 15:18 (Pill Splitter) 1 ea UNSCH PRN OTHER 08/30/17 13:00 09/01/17 09:12 (Lopressor) 50 mg Q12HR PO 09/03/17 09:00 09/07/17 08:40 (Catapres) 0.2 mg Q8H PO 3/8/18 08:00 09/07/17 07:44 (Magic Mouthwash Adult Liq) 5 ml ACHS SWISH-SWAL 09/05/17 12:00 09/07/17 07:47 (Cardizem) 90 mg Q6HR PO 09/05/17 12:00 09/07/17 06:47 (Restoril) 30 mg HS PRN PO 09/06/17 12:45 09/06/17 23:11 (Duoneb Neb) 1 ampule Q6HR NEB NEB 09/06/17 16:00 09/07/17 10:12 (Deltasone) 10 mg DAILY PO 09/07/17 09:00 09/07/17 08:40 (NovoLOG SUPPLEMENTAL SCALE) 1 ACHS SLIDING SCALE SQ 09/06/17 17:00 (Pepcid) 20 mg BID NG 09/06/17 21:00 09/07/17 08:40 Lines PIV Line sites with no e.o infections. Past Medical History reviewed Allergies: Coded Allergies: No Known Allergies (Verified Allergy, Unknown, 08/15/17) Objective . Vital Signs Date Time Temp Pulse Resp B/P (MAP) Pulse Ox O2 Delivery O2 Flow Rate FiO2 09/07/17 10:00 60 09/07/17 08:00 96.4 88 20 143/79 (100) 80 09/07/17 08:00 88 09/07/17 08:00 80 Nasal Cannula 3.00 09/07/17 06:00 81 09/07/17 04:00 94 Nasal Cannula 3.00 09/07/17 04:00 69 09/07/17 04:00 97.1 69 18 130/71 (90) 95 09/07/17 02:00 59 09/07/17 00:00 60 09/07/17 00:00 95 Nasal Cannula 3.00 09/07/17 00:00 98.0 64 19 111/58 (75) 94 09/06/17 23:22 95 Nasal Cannula 4.00 09/06/17 22:00 95 09/06/17 20:00 93 09/06/17 20:00 98.2 93 20 122/69 (86) 96 09/06/17 20:00 96 Nasal Cannula 3.00 09/06/17 18:00 93 09/06/17 16:00 Nasal Cannula 3.00 09/06/17 16:00 88 09/06/17 16:00 96.8 88 22 130/85 (100) 88 09/06/17 14:00 70 09/06/17 12:00 97.1 62 25 134/66 (88) 99 09/06/17 12:00 62 09/06/17 12:00 Nasal Cannula 3.00 . Laboratory Tests Test 09/05/17 13:13 09/06/17 04:07 White Blood Count 9.0 TH/MM3 8.2 TH/MM3 Red Blood Count 3.16 MIL/MM3 3.28 MIL/MM3 Hemoglobin 10.4 GM/DL 10.8 GM/DL Hematocrit 31.4 % 31.9 % Mean Corpuscular Volume 99.4 FL 97.4 FL Mean Corpuscular Hemoglobin 32.8 PG 32.9 PG Mean Corpuscular Hemoglobin Concent 33.0 % 33.7 % Red Cell Distribution Width 15.4 % 15.9 % Platelet Count 307 TH/MM3 350 TH/MM3 Mean Platelet Volume 8.2 FL 8.1 FL Neutrophils (%) (Auto) 85.7 % 88.1 % Lymphocytes (%) (Auto) 7.3 % 6.4 % Monocytes (%) (Auto) 6.8 % 5.4 % Eosinophils (%) (Auto) 0.0 % 0.0 % Basophils (%) (Auto) 0.2 % 0.1 % Neutrophils # (Auto) 7.7 TH/MM3 7.2 TH/MM3 Lymphocytes # (Auto) 0.7 TH/MM3 0.5 TH/MM3 Monocytes # (Auto) 0.6 TH/MM3 0.4 TH/MM3 Eosinophils # (Auto) 0.0 TH/MM3 0.0 TH/MM3 Basophils # (Auto) 0.0 TH/MM3 0.0 TH/MM3 CBC Comment AUTO DIFF DIFF FINAL Differential Comment AUTO DIFF CONFIRMED Platelet Estimate NORMAL Platelet Morphology Comment NORMAL Target Cells 1+ Laboratory Tests Test 09/05/17 13:13 09/06/17 04:07 Blood Urea Nitrogen 19 MG/DL 18 MG/DL Creatinine 0.47 MG/DL 0.50 MG/DL Random Glucose 100 MG/DL 118 MG/DL Calcium Level 7.7 MG/DL 8.4 MG/DL Phosphorus Level 2.6 MG/DL 3.0 MG/DL Magnesium Level 2.2 MG/DL 2.4 MG/DL Sodium Level 139 MEQ/L 138 MEQ/L Potassium Level 4.4 MEQ/L 4.4 MEQ/L Chloride Level 105 MEQ/L 103 MEQ/L Carbon Dioxide Level 25.9 MEQ/L 26.0 MEQ/L Anion Gap 8 MEQ/L 9 MEQ/L Estimat Glomerular Filtration Rate 127 ML/MIN 118 ML/MIN Imaging Last Impressions Abdomen X-Ray 08/21/17 0600 Signed Impressions: Service Date/Time: July 03:35 - CONCLUSION: The bowel gas pattern remains fairly unremarkable. Jl Stanley MD Chest X-Ray 08/21/17 0000 Signed Impressions: Service Date/Time: July 19:39 - CONCLUSION: 1. Stable tubes and lines, as above. 2. Worsening bilateral lower lung zone pleural parenchymal disease. Douglas Jean MD Lumbar Puncture Fluoroscopy 08/15/17 0000 Signed Impressions: Service Date/Time: Tuesday, August 15, 2017 15:36 - CONCLUSION: 1. Uncomplicated fluoroscopically guided lumbar puncture. 2. Please note, requested opening pressures were not obtained due to technical difficulties. Shashi Moreno MD Brain MRI 08/15/17 0000 Signed Impressions: Service Date/Time: Tuesday, August 15, 2017 16:57 - CONCLUSION: 1. 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 2. Mild stenosis in the upper cervical spine as above. Esau Martell MD Abdomen/Pelvis CT 08/15/17 0000 Signed Impressions: Service Date/Time: Wednesday, August 16, 2017 00:25 - CONCLUSION: 1. Abnormal thickening of the descending colonic wall and the possibility of colitis should be entertained. There is also thickening of distal ileal wall which may be inflammatory as well. 2. There is mild anasarca with edema or inflammatory changes within the bilateral paracolic gutters extending down into the pelvis. 3. Small bilateral pleural effusions and bibasilar atelectasis and/or infiltrate. 4. Prominent ileocecal valve and possibility of lipoma at this site is not excluded. Josseline Villagomez MD Abdomen Ultrasound 08/15/17 0000 Signed Impressions: Service Date/Time: Tuesday, August 15, 2017 10:40 - CONCLUSION: 1. No abnormality is identified to explain the clinical symptoms. There is no hydronephrosis. 2. The liver is normal in size and echotexture. Adan Machuca MD Head CT [id number]/14/[id number] Signed Impressions: Service Date/Time: July 22:54 - CONCLUSION: Unremarkable study. Josseline Villagomez MD Physical Exam GENERAL: Awake, following commands. NAD On nasal O2 SKIN: No rashes, ecchymoses or lesions. Warm and dry. HEAD: Atraumatic. Normocephalic. No temporal or scalp tenderness. EYES: Pupils equal round and reactive. Extraocular motions intact. No scleral icterus. No injection or drainage. Has mild scleral edema ENT: Moist oral mucosa, no nasal drainage NECK: Trachea midline. Supple, nontender, CARDIOVASCULAR: + murmur, no gallops, rub RESPIRATORY: Decreased BS at bases GASTROINTESTINAL: Abdomen soft, not distended, not tender, hypoactive bowels sounds, no guarding or rebound. MUSCULOSKELETAL: Extremities without clubbing. No calf tenderness. Negative Homans sign bilaterally. NEUROLOGICAL: Non focal Psych: Cooperative IV line sites with no e.o infection. Assessment & Plan Remarks Assessment and Plan Fungemia in setting of bilateral UE DVT will treat as Septic thrombophlebitis. C.Parapsilosis fungal septic thrombophlebitis. Sepsis. HCAP with effusions. Staph epidermidis: likely pseudobacteremia/contaminant. Specimen from old line, already removed. Acute resp failure on vent Acute metabolic encephalopathy: appears resolving. Alcohol abuse: at risk for withdrawal. Acute rhabdomyolysis: ? seizures. Acute renal failure: sepsis, prerenal, rhabdomyolysis. Colitis clinically and radiologically ; likely ischemic - C diff negative Recs: Continue Diflucan for C.Parapsilosis fungal septic thrombophlebitis and possible endocarditis. C.parapsilosis susceptibilities and Diflucan S. Monitor progress Ileana Monique MD Sep 07, 2017 10:43
[2017-09-07 13:51] LABS: AUTOMATED NEUTROPHIL # 9.7 TH/MM3 (1.8-7.7); BASOPHIL % 0.3 % (0.0-2.0); EOSINOPHIL % 0.1 % (0.0-4.0); HEMATOCRIT 28.1 % (35.0-46.0); HEMOGLOBIN 9.1 GM/DL (11.6-15.3); LYMPH % 6.3 % (9.0-44.0); LYMPHOCYTE # 0.7 TH/MM3 (1.0-4.8); MEAN CELL VOLUME 98.7 FL (80.0-100.0); MEAN CORPUSCULAR HGB CONC 32.4 % (32.0-36.0); MEAN PLATELET VOLUME 7.8 FL (7.0-11.0); MONO % 7.5 % (0.0-8.0); MONOCYTE # 0.8 TH/MM3 (0-0.9); NEUT % 85.8 % (16.0-70.0); PLATELET COUNT 354 TH/MM3 (150-450); RED BLOOD COUNT 2.85 MIL/MM3 (4.00-5.30); RED CELL DISTRIBUTION WIDTH 15.4 % (11.6-17.2); WHITE BLOOD COUNT 11.3 TH/MM3 (4.0-11.0)
--- NOTE | 2017-09-07 13:58 | PD.CARD.PN ---
Subjective Subjective Remarks No events overnight Heart rates controlled Objective Medications Current Medications Medications (Trade) Dose Ordered Sig/Al Route Start Time Stop Time Status Last Admin (NS Flush) 2 ml UNSCH PRN IV FLUSH 08/15/17 02:00 09/04/17 07:49 (NS Flush) 2 ml BID IV FLUSH 08/15/17 09:00 09/07/17 08:39 (Narcan Inj) 0.4 mg UNSCH PRN IV PUSH 08/15/17 02:00 Miscellaneous Information Patient in critical care unit? Ass... Q361D .XX 08/15/17 06:15 08/15/17 06:15 (Vitamin B1) 100 mg DAILY PO 08/15/17 12:00 09/07/17 08:40 (Theragran) 1 tab DAILY PO 08/15/17 12:00 09/07/17 08:39 (Folate) 1 mg DAILY PO 08/15/17 12:00 09/07/17 08:40 (Aspirin Chew) 81 mg DAILY OG-TUBE 08/15/17 19:00 09/07/17 08:40 (D50w (Vial) Inj) 50 ml UNSCH PRN IV PUSH 08/16/17 08:00 (Glucagon Inj) 1 mg UNSCH PRN OTHER 08/16/17 08:00 (Trandate Inj) 20 mg Q4H PRN IV PUSH 08/21/17 17:15 08/21/17 21:51 (Tears Naturale Opth Soln) 1 drop Q8HR EACH EYE 08/24/17 14:00 09/07/17 06:48 (Tylenol 650 Mg/ 20 ml Liq) 650 mg Q6H PRN NG 08/24/17 13:00 (Lanoxin Liq) 0.125 mg DAILY PO 08/25/17 09:00 09/07/17 08:40 (Ferrous Sulfate Liq) 300 mg BID PO 08/24/17 21:00 09/07/17 08:42 (NS Flush) DAILY IV FLUSH 08/25/17 09:00 09/07/17 08:39 (NS Flush) UNSCH PRN IV FLUSH 08/24/17 17:45 09/04/17 07:49 Miscellaneous Information D/C ICU ELECTROLYTE ORDERS... UNSCH PRN .XX 08/25/17 15:00 Miscellaneous Information ICU - CALL ORDERING PHYSIC... UNSCH PRN .XX 08/25/17 15:00 Potassium Chloride 100 ml @ 25 mls/hr UNSCH PRN IV 08/25/17 15:00 08/29/17 16:51 (K-Lyte Cl Eff) 50 meq UNSCH PRN PO 08/25/17 15:00 Potassium Chloride 100 ml @ 50 mls/hr UNSCH PRN IV 08/25/17 15:00 09/01/17 20:35 Magnesium Sulfate 4 gm/Sodium Chloride 108 ml @ 54 mls/hr UNSCH PRN IV 08/25/17 15:00 Magnesium Sulfate 2 gm/Sodium Chloride 104 ml @ 52 mls/hr UNSCH PRN IV 08/25/17 15:00 (Mag-Ox) 800 mg UNSCH PRN PO 08/25/17 15:00 Sodium Phosphate 30 mmol/Sodium Chloride 260 ml @ 43.333 mls/ hr UNSCH PRN IV 08/25/17 15:00 (K-Phos) 2,000 mg UNSCH PRN PO 08/25/17 15:00 Potassium Phosphate 30 mmol/ Sodium Chloride 260 ml @ 43.333 mls/ hr UNSCH PRN IV 08/25/17 15:00 09/02/17 08:07 (Atrovent Neb) 0.5 mg Q2HR NEB PRN NEB 08/26/17 08:00 09/06/17 23:22 (Roxicodone) 5 mg Q6H PRN PO 08/27/17 13:00 (Morphine Inj) 1 mg Q4H PRN IV 08/27/17 11:00 08/31/17 14:38 Fluconazole/ Sodium Chloride 200 ml @ 100 mls/hr Q24H IV 08/28/17 08:00 09/07/17 07:43 Fluconazole/ Sodium Chloride 200 ml @ 100 mls/hr Q24H IV 08/28/17 10:00 09/07/17 10:00 (Benadryl) 25 mg Q4H PRN PO 08/29/17 11:30 (Lovenox Inj) 100 mg Q24H SQ 08/30/17 15:00 09/06/17 15:18 (Pill Splitter) 1 ea UNSCH PRN OTHER 08/30/17 13:00 09/01/17 09:12 (Lopressor) 50 mg Q12HR PO 09/03/17 09:00 09/07/17 08:40 (Catapres) 0.2 mg Q8H PO 09/04/17 08:00 09/07/17 07:44 (Magic Mouthwash Adult Liq) 5 ml ACHS SWISH-SWAL 09/05/17 12:00 09/07/17 11:08 (Cardizem) 90 mg Q6HR PO 09/05/17 12:00 09/07/17 11:09 (Restoril) 30 mg HS PRN PO 09/06/17 12:45 09/06/17 23:11 (Duoneb Neb) 1 ampule Q6HR NEB NEB 09/06/17 16:00 09/07/17 10:12 (Deltasone) 10 mg DAILY PO 09/07/17 09:00 09/07/17 08:40 (NovoLOG SUPPLEMENTAL SCALE) 1 ACHS SLIDING SCALE SQ 09/06/17 17:00 (Pepcid) 20 mg BID NG 09/06/17 21:00 09/07/17 08:40 Vital Signs / I&O Vital Signs Date Time Temp Pulse Resp B/P (MAP) Pulse Ox O2 Delivery O2 Flow Rate FiO2 09/07/17 12:00 96.6 79 18 126/68 (87) 91 09/07/17 12:00 91 Nasal Cannula 4.00 09/07/17 12:00 79 09/07/17 11:29 95 Nasal Cannula 4.00 09/07/17 10:00 60 09/07/17 08:00 96.4 88 20 143/79 (100) 80 09/07/17 08:00 88 09/07/17 08:00 80 Nasal Cannula 3.00 09/07/17 06:00 81 09/07/17 04:00 94 Nasal Cannula 3.00 09/07/17 04:00 69 09/07/17 04:00 97.1 69 18 130/71 (90) 95 09/07/17 02:00 59 09/07/17 00:00 60 09/07/17 00:00 95 Nasal Cannula 3.00 09/07/17 00:00 98.0 64 19 111/58 (75) 94 09/06/17 23:22 95 Nasal Cannula 4.00 09/06/17 22:00 95 09/06/17 20:00 93 09/06/17 20:00 98.2 93 20 122/69 (86) 96 09/06/17 20:00 96 Nasal Cannula 3.00 09/06/17 18:00 93 09/06/17 16:00 Nasal Cannula 3.00 09/06/17 16:00 88 09/06/17 16:00 96.8 88 22 130/85 (100) 88 09/06/17 14:00 70 I/O 09/06/17 09/06/17 09/06/17 09/07/17 09/07/17 09/07/17 07:00 15:00 23:00 07:00 15:00 23:00 Intake Total 240 ml 200 ml 920 ml 180 ml Output Total 700 ml 600 ml 825 ml Balance -460 ml 200 ml 320 ml -645 ml Intake Oral 240 ml 720 ml 180 ml IV Total 200 ml 200 ml Output Urine Total 700 ml 600 ml 825 ml # Bowel Movements 2 2 1 Physical Exam GENERAL: NAD, AAOx3 SKIN: Warm and dry. HEAD: Atraumatic. Normocephalic. EYES: Pupils equal and round. No scleral icterus. No injection or drainage. ENT: No nasal bleeding or discharge. Mucous membranes pink and moist. NECK: Trachea midline. No JVD. CARDIOVASCULAR: Irregularly irregular RESPIRATORY: No accessory muscle use. Clear to auscultation. Breath sounds equal bilaterally. GASTROINTESTINAL: Abdomen soft, non-tender, nondistended. Hepatic and splenic margins not palpable. MUSCULOSKELETAL: Extremities without clubbing, cyanosis, or edema. No obvious deformities. NEUROLOGICAL: Awake and alert. No obvious cranial nerve deficits. Motor grossly within normal limits. Five out of 5 muscle strength in the arms and legs. Normal speech. PSYCHIATRIC: Appropriate mood and affect; insight and judgment normal. Laboratory Laboratory Tests Test 09/07/17 13:08 White Blood Count 11.3 TH/MM3 Red Blood Count 2.85 MIL/MM3 Hemoglobin 9.1 GM/DL Hematocrit 28.1 % Mean Corpuscular Volume 98.7 FL Mean Corpuscular Hemoglobin 32.0 PG Mean Corpuscular Hemoglobin Concent 32.4 % Red Cell Distribution Width 15.4 % Platelet Count 354 TH/MM3 Mean Platelet Volume 7.8 FL Neutrophils (%) (Auto) 85.8 % Lymphocytes (%) (Auto) 6.3 % Monocytes (%) (Auto) 7.5 % Eosinophils (%) (Auto) 0.1 % Basophils (%) (Auto) 0.3 % Neutrophils # (Auto) 9.7 TH/MM3 Lymphocytes # (Auto) 0.7 TH/MM3 Monocytes # (Auto) 0.8 TH/MM3 Eosinophils # (Auto) 0.0 TH/MM3 Basophils # (Auto) 0.0 TH/MM3 CBC Comment AUTO DIFF Assessment and Plan Problem List: (1) Atrial fibrillation ICD Codes: I48.91 - Unspecified atrial fibrillation (2) Fungemia ICD Codes: B49 - Unspecified mycosis (3) Weakness ICD Codes: R53.1 - Weakness (4) Pain ICD Codes: R52 - Pain, unspecified (5) Hypotension ICD Codes: I95.9 - Hypotension, unspecified (6) Altered mental status ICD Codes: R41.82 - Altered mental status, unspecified (7) UTI (urinary tract infection) ICD Codes: N39.0 - Urinary tract infection, site not specified (8) Tachycardia ICD Codes: R00.0 - Tachycardia, unspecified (9) Rhabdomyolysis ICD Codes: M62.82 - Rhabdomyolysis (10) Dyspnea ICD Codes: R06.00 - Dyspnea, unspecified (11) Anxiety ICD Codes: F41.9 - Anxiety disorder, unspecified (12) Acute renal failure ICD Codes: N17.9 - Acute kidney failure, unspecified (13) Septic shock ICD Codes: A41.9 - Sepsis, unspecified organism; R65.21 - Severe sepsis with septic shock (14) Acute respiratory failure ICD Codes: J96.00 - Acute respiratory failure, unspecified whether with hypoxia or hypercapnia (15) Alcohol abuse ICD Codes: F10.10 - Alcohol abuse, uncomplicated Assessment and Plan 1) AFib with RVR Now controlled on Digoxin, metoprolol tartrate and Cardizem If further episodes, may need to increase Digoxin 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
[2017-09-07 14:08] LABS: BICARBONATE 23.9 MEQ/L (21.0-32.0); CALCIUM 7.5 MG/DL (8.5-10.1); CREATININE 0.41 MG/DL (0.50-1.00)
[2017-09-07 14:20] LABS: CORRECTED NUCLEATED RBC 2 /100 WBC (0-0); LYMPHOCYTES 6 % (9-44); METAMYELOCYTES 1 % (0-1); MONOCYTES 5 % (0-8); MYELOCYTES 1 % (0-0); NEUTROPHIL # MANUAL DIFF 10.1 TH/MM3 (1.8-7.7); NUCLEATED RED BLOOD CELL 2 (0-0); POLYS (SEG NEUTROPHILS) 87 % (16-70)
[2017-09-07] MEDS: ENOXAPARIN SODIUM 100 MG/ML SYRINGE SQ SCH (15:03)
--- NOTE | 2017-09-07 17:34 | HHI.CCPN ---
Subjective Remarks/Hospital Course Patient is an 82-year-old female with past medical history of irritable bowel syndrome, hypertension, arthritis, diverticulitis who presented to the [facility] ED after she was found lying on her bed with urine and feces all around her bed. In addition, the patient was altered and obtunded. Most of the history was obtained from reviewing the medical records. Her laboratory data showed acute renal failure with BUN of 52, creatinine 3.39 and lactic acidosis with a lactic acid level of 6.3. In addition, the patient was in rhabdomyolysis with elevated CK at 3855. She was admitted under the hospitalist service; however, a [facility] was called due to worsening mental status, hypertension and hypoxemia. She was transferred to [facility] and critical care medicine was consulted for critical care management. When seen, the patient was lethargic, not following any commands, hypotensive. She was subsequently intubated by myself and a right internal jugular central line was placed for hemodynamic monitoring. ABG post intubation showed a pH of 7.31, co2 of 30, pA02 of 117, bicarbonate 15 and saturation of 96% on PRVC rate of 14, tidal volume 350 with IT:1, PEEP 5 and FIO2 of 100%. She was given two liter boluses of normal saline and placed on a bicarbonate drip. Her lactic acid level is trending down and is currently 3.4 from 6.3 on arrival. In addition, her renal function is improving with IV hydration. Her creatinine level is 2.29 from 3.39. Due to hypotension, Levophed was started. A CT scan of the brain in the emergency department was unremarkable. Her initial chest x-ray showed minimal basilar atelectasis, no effusions or pneumothoraces. According to the patient's family, the patient has been intermittently binge drinking. In addition, they report her having diarrhea for a few days. She had a low-grade fever with a temperature of 100.2 last night. 08/16 Patient is sedated with Fentanyl drip intubated and on Levophed 5 mics. On Bicarb drip. MRI brain yesterday showed small lacunar infarcts in left cerebellar hemisphere and right parietal lobe. Lp showed clear CSF, 17 wbc. Afebrile.Renal function worse today with Cr: 2.64 from 2.29 08/17 Patient remains sedated and intubated. On Bicarb drip. Off Levophed renal function slightly worse today with Cr: 2.82 from 2.64 and UOP: 550 ml in 24 hrs 08/18 Patient bit through ETT overnight s/p new ETT placement using tube exchanger. Sedated with Diprivan and Fentanyl. Afebrile. Renal function is improving with Cr: 1.97 from 2.82. On Bicarb drip. Tube feeds held for possible colonoscopy today. 08/19: Remains sedated, orally intubated on mechanical ventilation. Colonoscopy done yesterday revealed ischemic colitis. Has been evaluated by general surgery. Patient went into A. fib with RVR last night and was started on a Cardizem drip. On Levophed for hypotension 08/20: Remains sedated, orally intubated on mechanical ventilation. Started on TPN on 08/19. Cardizem drip turned off this morning. Received 1 dose of digoxin yesterday. 08/21: Remains sedated, orally intubated on mechanical ventilation. On TPN. Ordered Precedex as well as digoxin daily. Starting trophic feeds today. 08/22 Patient remains intubated on Precedex and Fentanyl infusion for sedation. afebrile. 08/23 WBC up to 17.7. Temp max 102.2. Blood culture sent today peripherally ( labelled as line draw initially but was not drawn from a line, lab notified to re-label). Tolerating trophic feeds. Awake and on CPAP 10/5 with RSBI 50s, became labored and desat with 5/5. Denies abdominal pain. 08/24: Tmax 102.7 overnight. Currently 100.6. Noted yeast growing from blood culture 08/21. Remains in atrial fibrillation. Potassium currently been replaced. Currently only has once peripheral IV access. Will need central line placed later this afternoon. 08/25 Patient is awake and alert on CPAP trials. T: 101.1 last night. On Heparin and Bumex drips 08/26 Patient was extubated yesterday on 3L oxygen. She went into Afib with RVR last night given Labetalol. Afebrile. 08/27: Patient is slightly tachypneic, but maintaining O2 sat. chest x-ray shows at least moderate sized pleural effusions. Start Lasix 40 mg IV every 12 [address] Doe catheter for accurate intake output and also appears that patient has urinary retention. Remains in atrial fibrillation with RVR, on Cardizem at 15 mg per hour. 08/28: On BiPAP overnight. Currently on 4 L nasal cannula. Fluctuating neurologic status consistent with delirium. Remains on Cardizem drip at 5 mg per hour for A. fib with RVR. Diuresing well with Lasix. 08/29: Respiratory status borderline with tachypnea. Requiring intermittent BiPAP. Started on Precedex for anxiety. Dropped blood pressure. 1 unit PRBCs ordered. Solu-Medrol 125 mg IV 1 dose ordered as well. Scheduled for CT- guided thoracentesis for right side today. Heparin GTT held for thoracentesis. Chest x-ray with bilateral pleural effusions despite diuresis. 08/30: Seems to be breathing a little better. Was on BiPAP overnight. Currently on nasal cannula. Knows she is at the hospital and follows commands appropriately. Underwent bilateral thoracentesis yesterday with drainage of 500 cc from right side and 300 cc from left. On Precedex which appears to be working well for anxiety. 08/31: Remains on nasal cannula. Did not use BiPAP at night. Awake and alert. Following commands appropriately. By mouth intake remains borderline. On Precedex 0.2 mics per KG per hour. 09/01 Patient is on 3L oxygen with good sats, hypertensive Remains on Precedex 0.2 mics per KG per hour 09/02 No events overnight. Off Precedex drip. Afebrile. On 3L oxygen. 09/03 Patient is awake, alert remains on 3L oxygen, Afebrile. Requesting something to help her sleep. 09/04 Patient is on 3L oxygen. Afebrile. 09/05 Patient is lying in bed in NAD. Thoracentesis couldn't be done by IR as pleural effusion is too small per CT images. Afebrile. 09/06 On 3 L nasal cannula. Has a lunch tray and is feeding herself with nurse encouragement. Afebrile. Afib rate controlled 70s to 80s. Patient complains of inability to sleep at night. Stool C diff ordered today per ID due to increased stool frequency. Subjective: 09/07: Resting in bed in no acute distress on 3 L nasal cannula. Objective Vital Signs Date Time Temp Pulse Resp B/P (MAP) Pulse Ox O2 Delivery O2 Flow Rate FiO2 09/07/17 16:00 89 Nasal Cannula 4.00 09/07/17 16:00 97.0 78 17 128/62 (84) Intake and Output 09/07/17 09/07/17 09/08/17 08:00 16:00 00:00 Intake Total 180 ml 400 ml Output Total 825 ml Balance -645 ml 400 ml Result Diagram: 09/07/17 1308 09/07/17 1308 Other Results Microbiology Date/Time Source Procedure Growth Status 08/29/17 17:23 Blood Peripheral Aerobic Blood Culture - Final NO GROWTH IN 5 DAYS Complete 08/29/17 17:23 Blood Peripheral Anaerobic Blood Culture - Final NO GROWTH IN 5 DAYS Complete 08/29/17 15:00 Fluid Pleural Fluid Fungal Smear - Final NO FUNGAL ELEMENTS SEEN. Resulted 08/29/17 15:00 Fluid Pleural Fluid Fungal Culture - Preliminary NO GROWTH IN 1 WEEK Resulted 08/15/17 02:28 Stool Stool Stool Occult Blood (MARCIA) - Final HEMOCCULT NEGATIVE Complete 08/21/17 15:20 Sputum Endotracheal Gram Stain - Final Complete 08/21/17 15:20 Sputum Endotracheal Sputum Culture - Final NO GROWTH IN 48 HOURS. Complete 08/21/17 13:45 Urine Catheterized Urine Urine Culture - Final NO GROWTH IN 48 HOURS. Complete Imaging Last Impressions Thoracentesis 09/04/17 0000 Signed Impressions: Service Date/Time: August 15:12 - CONCLUSION: 1. Small bilateral pleural effusions with concomitant atelectatic changes. 2. Fluid collections are too small to safely drain percutaneously with CT. Shashi Moreno MD Chest X-Ray 09/04/17 0000 Signed Impressions: Service Date/Time: August 07:29 - CONCLUSION: 1. Persistent bibasilar effusions with common atelectatic changes, basically unchanged. 2. Left IJ central venous catheter has been removed. Shashi Moreno MD Chest Ultrasound 09/04/17 0000 Signed Impressions: Service Date/Time: August 09:23 - CONCLUSION: Right pleural effusion as above. Shashi Moreno MD Chest CT 08/29/17 0000 Signed Impressions: Service Date/Time: Tuesday, August 29, 2017 14:48 - CONCLUSION: Following thoracentesis there is decreasing amount of effusion. Significant consolidation persists. There is no pneumothorax. Juan J Joel MD FACR Abdomen/Pelvis CT 08/23/17 1426 Signed Impressions: Service Date/Time: Wednesday, August 23, 2017 22:50 - CONCLUSION: 1. Suspected mild diffuse colitis, nonspecific but presumably infectious or inflammatory. No obstruction or abscess. 2. Trace ascites about the same there is worsening anasarca and worsening pleural effusions and consolidation of both lung bases. 3. Tiny nonobstructing stone of the right kidney and a generally benign appearing cyst lower pole the left kidney. No evidence of obstructive uropathy or other etiology for acute renal failure. 4. Atherosclerotic aorta. No aneurysm. Adan Nunes MD Upper Extremity Ultrasound 08/23/17 0000 Signed Impressions: Service Date/Time: Wednesday, August 23, 2017 16:25 - CONCLUSION: Bilateral upper extremity DVT as described above. Samuel Peralta MD Lower Extremity Ultrasound 08/23/17 0000 Signed Impressions: Service Date/Time: Wednesday, August 23, 2017 15:50 - CONCLUSION: 1. There is incomplete compression of the left common femoral vein raising suspicion for nonocclusive thrombus. This vessel, however, still demonstrates normal Doppler blood flow and respiratory variability. 2. The remaining veins of the left lower extremity are patent and the entire right lower extremity is patent without thrombus. Adan Machuca MD Abdomen X-Ray 08/21/17 0600 Signed Impressions: Service Date/Time: July 03:35 - CONCLUSION: The bowel gas pattern remains fairly unremarkable. Jl Stanley MD Lumbar Puncture Fluoroscopy 08/15/17 0000 Signed Impressions: Service Date/Time: Tuesday, August 15, 2017 15:36 - CONCLUSION: 1. Uncomplicated fluoroscopically guided lumbar puncture. 2. Please note, requested opening pressures were not obtained due to technical difficulties. Shashi Moreno MD Brain MRI 08/15/17 0000 Signed Impressions: Service Date/Time: Tuesday, August 15, 2017 16:57 - CONCLUSION: 1. 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 2. Mild stenosis in the upper cervical spine as above. Esau Martell MD Abdomen Ultrasound 08/15/17 0000 Signed Impressions: Service Date/Time: Tuesday, August 15, 2017 10:40 - CONCLUSION: 1. No abnormality is identified to explain the clinical symptoms. There is no hydronephrosis. 2. The liver is normal in size and echotexture. Adan Machuca MD Head CT 08/14/172231 Signed Impressions: Service Date/Time: July 22:54 - CONCLUSION: Unremarkable study. Josseline Villagomez MD Objective Remarks GENERAL: 82-year-old female currently sitting up in bed on nasal cannula SKIN: Warm and dry. HEAD: Normocephalic. EYES: R pupil 3 mm reactive, L pupil 4 mm reactive. No scleral icterus. No injection or drainage. NECK: Supple, trachea midline. No JVD or lymphadenopathy. CARDIOVASCULAR: IRR. S1, S2 no S4. Without murmur RESPIRATORY: Diminished breath sounds in the bases bilaterally. No wheezing, rales or rhonchi appreciated. GASTROINTESTINAL: Abdomen soft, non-tender, nondistended. Bowel sounds hypoactive but present. No guarding or rigidity MUSCULOSKELETAL: Trace edema, more prominent LUE. NEURO: Awake alert oriented 3, conversant. 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 every 6 hours as needed fever Oxycodone 5 mg every 4 hours as needed pain 6 or 10, morphine sulfate 1 mg IV every 4 hours as needed anxiety/prn breakthrough. 08/15: CT brain negative for acute intracranial process MRI brain: Small lacunar infarcts in left cerebellar hemisphere and right parietal lobe EEG: Severe encephalopathy Repeat EEG 08/21.- generalized slowing, no epileptiform features Continue thiamine, multivitamin and folic acid daily. Neuro is following- Dr. Danielle LP showed clear CSF, 17 WBC, TP:45.2 Generally weak - PT and OT following. PT recommending acute rehab Continue aspirin 81 mg daily with enoxaparin 100 mg IV twice daily Pulm: Acute respiratory failure, resolved Bilateral pleural effusions -resolved Continue with oxygen keep sat >92% currently on 2 L Albuterol/ipratropium aerosols every 6 hours with albuterol aerosols every 2 hours as needed dyspnea Incentive spirometry Q1 hr while awake. Acapella q6 hours with Duoneb CXR 09/04: bibasilar effusions with common atelectatic changes, Status post bilateral CT-guided thoracentesis by IR on 08/29 with drainage of 500 cc of pleural fluid on right and 300 cc from left(transudative fluid) Thoracentesis wasn't done by IR on 09/04 as pleural effusion is too small per CT images. Currently on prednisone 10 mg p.o. daily. 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 On metoprolol tartrate 50mg Q12,, diltiazem 90 mg every 6 hours and digoxin 0.125 mg daily. Digoxin level 0.6 on 09/01. Clonidine0.2mg Q8 for blood pressure Repeat Echo showed EF 45-50%, Lateral leaflet mitral valve with a 2 mm mobile density, consistent with ? endocarditis Cardiology following, Dr. Myers. Previous behavioral geneticist documented with Dr. Myers who will defer FERNANDO for now unless recurrent blood culture positivity. Continue aspirin 81 mg by mouth daily/home medication Renal/FEN/: Acute kidney injury, resolved Lactic acidemia, resolved Rhabdomyolysis resolved Right-sided nephrolithiasis/nonobstructing Left renal cyst Monitor renal function, intake and output and avoid nephrotoxins. Renal has followed-Dr. Figueroa, US abdomen: No hydronephrosis CT Abd/pelvis revealed nonobstructing right-sided nephrolithiasis and left renal cyst. Continue straight cath. 900 cc GI: Ischemic colitis, resolved Severe acute on Chronic protein energy malnutrition AST elevation secondary to alcohol use Internal and external hemorrhoids Regular diet, no consistency restrictions per speech. Ensure with each meal. F/u stool C diff ordered 09/06 per ID Monitor LFT periodically while on diflucan. On famotidine 20 mg twice a day for GI prophylaxis. US liver: No abnormalities identified GI has followed- colonoscopy showed diffuse colitis in the sigmoid colon and descending colon; Necrotic, dusky appearing mucosa. Consistent with severe ischemic colitis. General surgery, Dr. Guadalupe -plan to treat conservatively unless patient worsens clinically. Repeat CT abdomen and pelvis 08/23 mild diffuse colitis ID: Septic shock resolved UTI Ischemic colitis Fungemia - Felipa parapsilosis Abx per ID -Continue fluconazole 800 mg IV daily , Monitor for signs of infections ( Fever, WBC). Seen by Opth no evidence of endophthalmitis Pertinent cultures 08/29 pleural fluid culture NGTD. 08/26 and 08/29 blood cultures Negative 08/23 - blood culture by line (actually peripheral) - Staph hominus 08/21 - blood culture - no growth 08/21 - sputum - no growth 08/21 - - no growth 08/21 - blood culture - Felipa parapsilosis 08/15 - CSF - negative 08/15 - sputum - no growth 08/14 - blood cultures 2 and UA - no growth C-diff PCR is negative, stool studies negative s/p LP showed clear CSF, 17 WBC, TP:45.2, HSV DNA PCR neg Endo: Hyperglycemia of critical illness/steroid Monitor glucose ac/hs and use low dose sliding scale with NovoLog TSH: 1.15. Heme: Leukocytosis Normocytic anemia B/L UE DVT Possible left common femoral vein DVT Left cephalic/basilic superficial and right superficial cephalic thrombus Monitor CBC, coags- heparin drip stopped on 08/30 and started on Enoxaparin 100 mg subcutaneously daily for full anticoagulation. Iron sulfate 300 mg twice a day. 1 unit PRBCs ordered to be transfused on 08/29 GI prophylaxis with famotidine and DVT prophylaxis with SCDs, Enoxaparin 100mg subcut daily Lines: Peripheral IV's Level 2 followup. Madhu Carrion MD Sep 07, 2017 17:34
[2017-09-07] MEDS ORDERED: RESP: ALBUTEROL 2.5 MG/3 ML NEB (PRN) NEB (17:45)
[2017-09-07] MEDS: diphenhydrAMINE HCL 25 MG CAP PO PRN (23:14)
[2017-09-08] VITALS (14 sets, daily range): BP systolic 123–151; BP diastolic 63–68; PULSE 55–106; RESP 17–20; TEMP 97.5–98.8; O2SAT 62–97
[2017-09-08] MEDS: MORPHINE SULFATE 2 MG/ML INJ IV PRN (03:22)
[2017-09-08] MEDS: RESP: ALBUTEROL 2.5 MG/IPRATROPIUM 0.5 MG NEB (SCH) NEB ×4 (04:00→21:24)
--- NOTE | 2017-09-08 05:18 | RADRPT ---
EXAM DATE/TIME: 09/08/2017 03:23 [place] COMPARISON: CT THORAX W/O CONTRAST, September 04, 2017, 15:12. CHEST SINGLE AP, September 04, 2017, 7:29. INDICATIONS : Shortness of breath, possible pulmonary disease. MEDICAL HISTORY : Hypertension. SURGICAL HISTORY : Appendectomy. Hysterectomy. Breast augmentation ENCOUNTER: Subsequent ACUITY: 3 weeks PAIN SCORE: 0/10 LOCATION: Bilateral chest FINDINGS: Bilateral pleural effusions with bibasilar parenchymal consolidations are unchanged. Heart is normal in size. Bony structures are unremarkable. CONCLUSION: Unchanged bilateral pleural effusions and associate atelectasis versus infiltrates. Matt Mckeon Jr., MD on September 08, 2017 at 5:15 Board Certified Radiologist. This report was verified electronically.
[2017-09-08] MEDS: DILTIAZEM HCL 90 MG TAB PO SCH ×2 (06:59→12:00)
[2017-09-08] MEDS: INSULIN ASPART SUPPLEMENTAL SCALE SQ SCH ×4 (08:00→21:00)
[2017-09-08] MEDS: NYSTAT/DIPHENHY/LIDO MOUTHWASH (Adult) 120ML SWISH-SWAL SCH ×2 (08:00→21:00)
[2017-09-08] MEDS: FLUCONAZOLE 400 MG PREMIX BAG 200 ML IV SCH ×2 (08:35→10:49)
[2017-09-08] MEDS: cloNIDine HCL 0.2 MG TAB PO SCH ×2 (08:36→17:49)
[2017-09-08] MEDS: FOLIC ACID 1 MG TAB PO SCH (08:36)
[2017-09-08] MEDS: predniSONE 10 MG TAB PO SCH (08:36)
[2017-09-08] MEDS: METOPROLOL TARTRATE 50 MG TAB PO SCH ×2 (08:36→22:55)
[2017-09-08] MEDS: ASPIRIN 81 MG CHEW TAB OG-TUBE SCH (08:36)
[2017-09-08] MEDS: FERROUS SULFATE 300 MG /5ML UDC PO SCH ×2 (08:36→22:54)
[2017-09-08] MEDS: FAMOTIDINE 20 MG TAB NG SCH ×2 (08:36→22:56)
[2017-09-08] MEDS: MULTIVITAMIN TAB PO SCH (08:36)
[2017-09-08] MEDS: DIGOXIN SOLUTION 0.125 MG/2.5 ML CUP PO SCH (08:37)
[2017-09-08] MEDS: SODIUM CHLORIDE 0.9% FLUSH 10 ML FLUSH IV FLUSH SCH ×2 (08:38→22:56)
[2017-09-08] MEDS: THIAMINE HCL 100 MG TAB PO SCH (08:39)
[2017-09-08] MEDS ORDERED: BISMUTH SUBSALICYLATE 240 ML BTL PO ONE (11:15)
[2017-09-08] MEDS ORDERED: TEMAZEPAM 15 MG CAP PO PRN (11:15)
--- NOTE | 2017-09-08 13:06 | HHI.CCPN ---
Subjective Remarks/Hospital Course Patient is an 82-year-old female with past medical history of irritable bowel syndrome, hypertension, arthritis, diverticulitis who presented to the [facility] ED after she was found lying on her bed with urine and feces all around her bed. In addition, the patient was altered and obtunded. Most of the history was obtained from reviewing the medical records. Her laboratory data showed acute renal failure with BUN of 52, creatinine 3.39 and lactic acidosis with a lactic acid level of 6.3. In addition, the patient was in rhabdomyolysis with elevated CK at 3855. She was admitted under the hospitalist service; however, a [facility] was called due to worsening mental status, hypertension and hypoxemia. She was transferred [place] [facility] and critical care medicine was consulted for critical care management. When seen, the patient was lethargic, not following any commands, hypotensive. She was subsequently intubated by myself and a right internal jugular central line was placed for hemodynamic monitoring. ABG post intubation showed a pH of 7.31, co2 of 30, pA02 of 117, bicarbonate 15 and saturation of 96% on PRVC rate of 14, tidal volume 350 with IT:1, PEEP 5 and FIO2 of 100%. She was given two liter boluses of normal saline and placed on a bicarbonate drip. Her lactic acid level is trending down and is currently 3.4 from 6.3 on arrival. In addition, her renal function is improving with IV hydration. Her creatinine level is 2.29 from 3.39. Due to hypotension, Levophed was started. A CT scan of the brain in the emergency department was unremarkable. Her initial chest x-ray showed minimal basilar atelectasis, no effusions or pneumothoraces. According to the patient's family, the patient has been intermittently binge drinking. In addition, they report her having diarrhea for a few days. She had a low-grade fever with a temperature of 100.2 last night. 08/16 Patient is sedated with Fentanyl drip intubated and on Levophed 5 mics. On Bicarb drip. MRI brain yesterday showed small lacunar infarcts in left cerebellar hemisphere and right parietal lobe. Lp showed clear CSF, 17 wbc. Afebrile.Renal function worse today with Cr: 2.64 from 2.29 08/17 Patient remains sedated and intubated. On Bicarb drip. Off Levophed renal function slightly worse today with Cr: 2.82 from 2.64 and UOP: 550 ml in 24 hrs 08/18 Patient bit through ETT overnight s/p new ETT placement using tube exchanger. Sedated with Diprivan and Fentanyl. Afebrile. Renal function is improving with Cr: 1.97 from 2.82. On Bicarb drip. Tube feeds held for possible colonoscopy today. 08/19: Remains sedated, orally intubated on mechanical ventilation. Colonoscopy done yesterday revealed ischemic colitis. Has been evaluated by general surgery. Patient went into A. fib with RVR last night and was started on a Cardizem drip. On Levophed for hypotension 08/20: Remains sedated, orally intubated on mechanical ventilation. Started on TPN on 08/19. Cardizem drip turned off this morning. Received 1 dose of digoxin yesterday. 08/21: Remains sedated, orally intubated on mechanical ventilation. On TPN. Ordered Precedex as well as digoxin daily. Starting trophic feeds today. 08/22 Patient remains intubated on Precedex and Fentanyl infusion for sedation. afebrile. 08/23 WBC up to 17.7. Temp max 102.2. Blood culture sent today peripherally ( labelled as line draw initially but was not drawn from a line, lab notified to re-label). Tolerating trophic feeds. Awake and on CPAP 10/5 with RSBI 50s, became labored and desat with 5/5. Denies abdominal pain. 08/24: Tmax 102.7 overnight. Currently 100.6. Noted yeast growing from blood culture 08/21. Remains in atrial fibrillation. Potassium currently been replaced. Currently only has once peripheral IV access. Will need central line placed later this afternoon. 08/25 Patient is awake and alert on CPAP trials. T: 101.1 last night. On Heparin and Bumex drips 08/26 Patient was extubated yesterday on 3L oxygen. She went into Afib with RVR last night given Labetalol. Afebrile. 08/27: Patient is slightly tachypneic, but maintaining O2 sat. chest x-ray shows at least moderate sized pleural effusions. Start Lasix 40 mg IV every 12 [address] Doe catheter for accurate intake output and also appears that patient has urinary retention. Remains in atrial fibrillation with RVR, on Cardizem at 15 mg per hour. 08/28: On BiPAP overnight. Currently on 4 L nasal cannula. Fluctuating neurologic status consistent with delirium. Remains on Cardizem drip at 5 mg per hour for A. fib with RVR. Diuresing well with Lasix. 08/29: Respiratory status borderline with tachypnea. Requiring intermittent BiPAP. Started on Precedex for anxiety. Dropped blood pressure. 1 unit PRBCs ordered. Solu-Medrol 125 mg IV 1 dose ordered as well. Scheduled for CT- guided thoracentesis for right side today. Heparin GTT held for thoracentesis. Chest x-ray with bilateral pleural effusions despite diuresis. 08/30: Seems to be breathing a little better. Was on BiPAP overnight. Currently on nasal cannula. Knows she is at the hospital and follows commands appropriately. Underwent bilateral thoracentesis yesterday with drainage of 500 cc from right side and 300 cc from left. On Precedex which appears to be working well for anxiety. 08/31: Remains on nasal cannula. Did not use BiPAP at night. Awake and alert. Following commands appropriately. By mouth intake remains borderline. On Precedex 0.2 mics per KG per hour. 09/01 Patient is on 3L oxygen with good sats, hypertensive Remains on Precedex 0.2 mics per KG per hour 09/02 No events overnight. Off Precedex drip. Afebrile. On 3L oxygen. 09/03 Patient is awake, alert remains on 3L oxygen, Afebrile. Requesting something to help her sleep. 09/04 Patient is on 3L oxygen. Afebrile. 09/05 Patient is lying in bed in NAD. Thoracentesis couldn't be done by IR as pleural effusion is too small per CT images. Afebrile. 09/06 On 3 L nasal cannula. Has a lunch tray and is feeding herself with nurse encouragement. Afebrile. Afib rate controlled 70s to 80s. Patient complains of inability to sleep at night. Stool C diff ordered today per ID due to increased stool frequency. 09/07: Resting in bed in no acute distress on 3 L nasal cannula. Subjective: 09/08: Resting in bed in no acute distress. Currently on 4 L nasal cannula. Requesting antidiarrheal medication for diarrhea. Objective Vital Signs Date Time Temp Pulse Resp B/P (MAP) Pulse Ox O2 Delivery O2 Flow Rate FiO2 09/08/17 10:00 55 09/08/17 09:40 91 Nasal Cannula 4.00 09/08/17 08:00 98.8 151/63 (92) 09/08/17 04:00 17 Intake and Output 09/08/17 09/08/17 09/09/17 08:00 16:00 00:00 Intake Total 360 ml Output Total 1500 ml Balance -1140 ml Result Diagram: 09/07/17 1308 09/07/17 1308 Other Results Microbiology Date/Time Source Procedure Growth Status 08/29/17 17:23 Blood Peripheral Aerobic Blood Culture - Final NO GROWTH IN 5 DAYS Complete 08/29/17 17:23 Blood Peripheral Anaerobic Blood Culture - Final NO GROWTH IN 5 DAYS Complete 08/29/17 15:00 Fluid Pleural Fluid Fungal Smear - Final NO FUNGAL ELEMENTS SEEN. Resulted 08/29/17 15:00 Fluid Pleural Fluid Fungal Culture - Preliminary NO GROWTH IN 1 WEEK Resulted 08/15/17 02:28 Stool Stool Stool Occult Blood (MARCIA) - Final HEMOCCULT NEGATIVE Complete 08/21/17 15:20 Sputum Endotracheal Gram Stain - Final Complete 08/21/17 15:20 Sputum Endotracheal Sputum Culture - Final NO GROWTH IN 48 HOURS. Complete 08/21/17 13:45 Urine Catheterized Urine Urine Culture - Final NO GROWTH IN 48 HOURS. Complete Imaging Last Impressions Chest X-Ray 09/08/17 0600 Signed Impressions: Service Date/Time: Friday, September 08, 2017 03:23 - CONCLUSION: Unchanged bilateral pleural effusions and associate atelectasis versus infiltrates. Matt Mckeon Jr., MD Thoracentesis 09/04/17 0000 Signed Impressions: Service Date/Time: August 15:12 - CONCLUSION: 1. Small bilateral pleural effusions with concomitant atelectatic changes. 2. Fluid collections are too small to safely drain percutaneously with CT. Shashi Moreno MD Chest Ultrasound 09/04/17 0000 Signed Impressions: Service Date/Time: August 09:23 - CONCLUSION: Right pleural effusion as above. Shashi Moreno MD Chest CT 08/29/17 0000 Signed Impressions: Service Date/Time: Tuesday, August 29, 2017 14:48 - CONCLUSION: Following thoracentesis there is decreasing amount of effusion. Significant consolidation persists. There is no pneumothorax. Juan J Joel MD FACR Abdomen/Pelvis CT 08/23/17 1426 Signed Impressions: Service Date/Time: Wednesday, August 23, 2017 22:50 - CONCLUSION: 1. Suspected mild diffuse colitis, nonspecific but presumably infectious or inflammatory. No obstruction or abscess. 2. Trace ascites about the same there is worsening anasarca and worsening pleural effusions and consolidation of both lung bases. 3. Tiny nonobstructing stone of the right kidney and a generally benign appearing cyst lower pole the left kidney. No evidence of obstructive uropathy or other etiology for acute renal failure. 4. Atherosclerotic aorta. No aneurysm. Adan Nunes MD Upper Extremity Ultrasound 08/23/17 0000 Signed Impressions: Service Date/Time: Wednesday, August 23, 2017 16:25 - CONCLUSION: Bilateral upper extremity DVT as described above. Samuel Peralta MD Lower Extremity Ultrasound 08/23/17 0000 Signed Impressions: Service Date/Time: Wednesday, August 23, 2017 15:50 - CONCLUSION: 1. There is incomplete compression of the left common femoral vein raising suspicion for nonocclusive thrombus. This vessel, however, still demonstrates normal Doppler blood flow and respiratory variability. 2. The remaining veins of the left lower extremity are patent and the entire right lower extremity is patent without thrombus. Adan Machuca MD Abdomen X-Ray 08/21/17 0600 Signed Impressions: Service Date/Time: July 03:35 - CONCLUSION: The bowel gas pattern remains fairly unremarkable. Jl Stanley MD Lumbar Puncture Fluoroscopy 08/15/17 0000 Signed Impressions: Service Date/Time: Tuesday, August 15, 2017 15:36 - CONCLUSION: 1. Uncomplicated fluoroscopically guided lumbar puncture. 2. Please note, requested opening pressures were not obtained due to technical difficulties. Shashi Moreno MD Brain MRI 08/15/17 0000 Signed Impressions: Service Date/Time: Tuesday, August 15, 2017 16:57 - CONCLUSION: 1. 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 2. Mild stenosis in the upper cervical spine as above. Esau Martell MD Abdomen Ultrasound 08/15/17 0000 Signed Impressions: Service Date/Time: Tuesday, August 15, 2017 10:40 - CONCLUSION: 1. No abnormality is identified to explain the clinical symptoms. There is no hydronephrosis. 2. The liver is normal in size and echotexture. Adan Machuca MD Head CT 08/14/17 2232 Signed Impressions: Service Date/Time: July 22:54 - CONCLUSION: Unremarkable study. KStepan Villagomez MD Objective Remarks GENERAL: 82-year-old female currently sitting up in bed on nasal cannula SKIN: Warm and dry. HEAD: Normocephalic. EYES: R pupil 3 mm reactive, L pupil 4 mm reactive. No scleral icterus. No injection or drainage. NECK: Supple, trachea midline. No JVD or lymphadenopathy. CARDIOVASCULAR: IRR. S1, S2 no S4. Without murmur RESPIRATORY: Diminished breath sounds in the bases bilaterally. No wheezing, rales or rhonchi appreciated. GASTROINTESTINAL: Abdomen soft, non-tender, nondistended. Bowel sounds hypoactive but present. No guarding or rigidity MUSCULOSKELETAL: Trace edema, more prominent LUE. NEURO: Awake alert oriented 3, conversant. 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 every 6 hours as needed fever Oxycodone 5 mg every 4 hours as needed pain 6 or 10, morphine sulfate 1 mg IV every 4 hours as needed anxiety/prn breakthrough. 08/15: CT brain negative for acute intracranial process MRI brain: Small lacunar infarcts in left cerebellar hemisphere and right parietal lobe EEG: Severe encephalopathy Repeat EEG 08/21.- generalized slowing, no epileptiform features Continue thiamine, multivitamin and folic acid daily. Neuro is following- Dr. Danielle LP showed clear CSF, 17 WBC, TP:45.2 Generally weak - PT and OT following. PT recommending acute rehab Continue aspirin 81 mg daily with enoxaparin 100 mg IV twice daily Pulm: Acute respiratory failure, resolved Bilateral pleural effusions -resolved Continue with oxygen keep sat >92% currently on 2 L Albuterol/ipratropium aerosols every 6 hours with albuterol aerosols every 2 hours as needed dyspnea Incentive spirometry Q1 hr while awake. Acapella q6 hours with Duoneb CXR 09/04: bibasilar effusions with common atelectatic changes, Status post bilateral CT-guided thoracentesis by IR on 08/29 with drainage of 500 cc of pleural fluid on right and 300 cc from left(transudative fluid) Thoracentesis wasn't done by IR on 09/04 as pleural effusion is too small per CT images. Currently on prednisone 10 mg p.o. daily. 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 On metoprolol tartrate 50mg Q12,, diltiazem 90 mg every 6 hours and digoxin 0.125 mg daily. Digoxin level 0.6 on 09/01. Clonidine0.2mg Q8 for blood pressure Repeat Echo showed EF 45-50%, Lateral leaflet mitral valve with a 2 mm mobile density, consistent with ? endocarditis Cardiology following, Dr. Myers. 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 Continue aspirin 81 mg by mouth daily/home medication Renal/FEN/: Acute kidney injury, resolved Lactic acidemia, resolved Rhabdomyolysis resolved Right-sided nephrolithiasis/nonobstructing Left renal cyst Monitor renal function, intake and output and avoid nephrotoxins. Renal has followed-Dr. Figueroa, US abdomen: No hydronephrosis CT Abd/pelvis revealed nonobstructing right-sided nephrolithiasis and left renal cyst. Continue straight cath. As needed. Lion with causing trauma GI: Ischemic colitis, resolved Severe acute on Chronic protein energy malnutrition AST elevation secondary to alcohol use Internal and external hemorrhoids Regular diet, no consistency restrictions per speech. Ensure with each meal. F/u stool C diff ordered 09/05 per ID negative On famotidine 20 mg twice a day for GI prophylaxis. US liver: No abnormalities identified GI has followed- colonoscopy showed diffuse colitis in the sigmoid colon and descending colon; Necrotic, dusky appearing mucosa. Consistent with severe ischemic colitis. General surgery, Dr. Guadalupe -plan to treat conservatively unless patient worsens clinically. Repeat CT abdomen and pelvis 08/23 mild diffuse colitis ID: Septic shock resolved UTI Ischemic colitis Fungemia - Felipa parapsilosis Abx per ID -Continue fluconazole 800 mg IV daily , Monitor for signs of infections ( Fever, WBC). Seen by Opth no evidence of endophthalmitis Pertinent cultures 08/29 pleural fluid culture NGTD. 08/26 and 08/29 blood cultures Negative 08/23 - blood culture by line (actually peripheral) - Staph hominus 08/21 - blood culture - no growth 08/21 - sputum - no growth 08/21 - - no growth 08/21 - blood culture - Felipa parapsilosis 08/15 - CSF - negative 08/15 - sputum - no growth 08/14 - blood cultures 2 and UA - no growth C-diff PCR is negative, stool studies negative s/p LP showed clear CSF, 17 WBC, TP:45.2, HSV DNA PCR neg Endo: Hyperglycemia of critical illness/steroid Monitor glucose ac/hs and use low dose sliding scale with NovoLog TSH: 1.15. Heme: Leukocytosis Normocytic anemia B/L UE DVT Possible left common femoral vein DVT Left cephalic/basilic superficial and right superficial cephalic thrombus Monitor CBC, coags- heparin drip stopped on 08/30 and started on Enoxaparin 100 mg subcutaneously daily for full anticoagulation. Iron sulfate 300 mg twice a day. 1 unit PRBCs ordered to be transfused on 08/29 GI prophylaxis with famotidine and DVT prophylaxis with SCDs, Enoxaparin 100mg subcut daily Lines: Peripheral IV's Level 2 followup. Madhu Carrion MD Sep 08, 2017 13:06
[2017-09-08 13:27] LABS: AUTOMATED NEUTROPHIL # 10.3 TH/MM3 (1.8-7.7); BASOPHIL % 0.2 % (0.0-2.0); EOSINOPHIL % 0.1 % (0.0-4.0); HEMATOCRIT 26.9 % (35.0-46.0); HEMOGLOBIN 8.9 GM/DL (11.6-15.3); LYMPH % 5.1 % (9.0-44.0); LYMPHOCYTE # 0.6 TH/MM3 (1.0-4.8); MEAN CELL VOLUME 99.2 FL (80.0-100.0); MEAN CORPUSCULAR HEMOGLOBIN 32.7 PG (27.0-34.0); MEAN PLATELET VOLUME 7.9 FL (7.0-11.0); MONO % 6.5 % (0.0-8.0); MONOCYTE # 0.8 TH/MM3 (0-0.9); NEUT % 88.1 % (16.0-70.0); PLATELET COUNT 294 TH/MM3 (150-450); RED BLOOD COUNT 2.71 MIL/MM3 (4.00-5.30); RED CELL DISTRIBUTION WIDTH 16.5 % (11.6-17.2); WHITE BLOOD COUNT 11.6 TH/MM3 (4.0-11.0)
[2017-09-08 13:52] LABS: ALBUMIN 2.3 GM/DL (3.4-5.0); ALT (GPT) 24 U/L (10-53); AST (GOT) 15 U/L (15-37); BICARBONATE 23.7 MEQ/L (21.0-32.0); BLOOD UREA NITROGEN 18 MG/DL (7-18); CALCIUM 8.4 MG/DL (8.5-10.1); CHLORIDE 107 MEQ/L (98-107); CREATININE 0.43 MG/DL (0.50-1.00); GLOMERULAR FILTRATION RATE 141 ML/MIN (>89); GLUCOSE,RANDOM 87 MG/DL (74-106); MAGNESIUM 1.9 MG/DL (1.5-2.5); PHOSPHORUS 3.7 MG/DL (2.5-4.9); SODIUM (NA) 140 MEQ/L (136-145)
[2017-09-08 14:07] LABS: ALKALINE PHOSPHATASE 72 U/L (45-117); DIGOXIN 1.2 NG/ML (0.8-2.0); TOTAL BILIRUBIN ADULT 0.5 MG/DL (0.2-1.0); TOTAL PROTEIN 5.5 GM/DL (6.4-8.2)
[2017-09-08] MEDS ORDERED: PADIMATE (CHAPSTICK) 4.5 GM TUBE TOPICAL ONE (14:15)
[2017-09-08 14:48] LABS: BANDS 7 % (0-6); CORRECTED NUCLEATED RBC 3 /100 WBC (0-0); LYMPHOCYTES 7 % (9-44); METAMYELOCYTES 1 % (0-1); MONOCYTES 14 % (0-8); NEUTROPHIL # MANUAL DIFF 9.2 TH/MM3 (1.8-7.7); NUCLEATED RED BLOOD CELL 3 (0-0); POLYS (SEG NEUTROPHILS) 71 % (16-70)
--- NOTE | 2017-09-08 17:36 | PD.CARD.PN ---
Subjective Subjective Remarks No events overnight Heart rates controlled Objective Medications Current Medications Medications (Trade) Dose Ordered Sig/Al Route Start Time Stop Time Status Last Admin (NS Flush) 2 ml UNSCH PRN IV FLUSH 08/15/17 02:00 09/04/17 07:49 (NS Flush) 2 ml BID IV FLUSH 08/15/17 09:00 09/08/17 08:38 (Narcan Inj) 0.4 mg UNSCH PRN IV PUSH 08/15/17 02:00 Miscellaneous Information Patient in critical care unit? Ass... Q361D .XX 08/15/17 06:15 08/15/17 06:15 (Vitamin B1) 100 mg DAILY PO 08/15/17 12:00 09/08/17 08:39 (Theragran) 1 tab DAILY PO 08/15/17 12:00 09/08/17 08:36 (Folate) 1 mg DAILY PO 08/15/17 12:00 09/08/17 08:36 (Aspirin Chew) 81 mg DAILY OG-TUBE 08/15/17 19:00 09/08/17 08:36 (D50w (Vial) Inj) 50 ml UNSCH PRN IV PUSH 08/16/17 08:00 (Glucagon Inj) 1 mg UNSCH PRN OTHER 08/16/17 08:00 (Trandate Inj) 20 mg Q4H PRN IV PUSH 08/21/17 17:15 08/21/17 21:51 (Tylenol 650 Mg/ 20 ml Liq) 650 mg Q6H PRN NG 08/24/17 13:00 (Lanoxin Liq) 0.125 mg DAILY PO 08/25/17 09:00 09/08/17 08:37 (Ferrous Sulfate Liq) 300 mg BID PO 08/24/17 21:00 09/08/17 08:36 (NS Flush) DAILY IV FLUSH 08/25/17 09:00 09/07/17 08:39 (NS Flush) UNSCH PRN IV FLUSH 08/24/17 17:45 09/04/17 07:49 Miscellaneous Information D/C ICU ELECTROLYTE ORDERS... UNSCH PRN .XX 08/25/17 15:00 Miscellaneous Information ICU - CALL ORDERING PHYSIC... UNSCH PRN .XX 08/25/17 15:00 Potassium Chloride 100 ml @ 25 mls/hr UNSCH PRN IV 08/25/17 15:00 08/29/17 16:51 (K-Lyte Cl Eff) 50 meq UNSCH PRN PO 08/25/17 15:00 Potassium Chloride 100 ml @ 50 mls/hr UNSCH PRN IV 08/25/17 15:00 09/01/17 20:35 Magnesium Sulfate 4 gm/Sodium Chloride 108 ml @ 54 mls/hr UNSCH PRN IV 08/25/17 15:00 Magnesium Sulfate 2 gm/Sodium Chloride 104 ml @ 52 mls/hr UNSCH PRN IV 08/25/17 15:00 (Mag-Ox) 800 mg UNSCH PRN PO 08/25/17 15:00 Sodium Phosphate 30 mmol/Sodium Chloride 260 ml @ 43.333 mls/ hr UNSCH PRN IV 08/25/17 15:00 (K-Phos) 2,000 mg UNSCH PRN PO 08/25/17 15:00 Potassium Phosphate 30 mmol/ Sodium Chloride 260 ml @ 43.333 mls/ hr UNSCH PRN IV 08/25/17 15:00 09/02/17 08:07 (Roxicodone) 5 mg Q6H PRN PO 08/27/17 13:00 (Morphine Inj) 1 mg Q4H PRN IV 08/27/17 11:00 09/08/17 03:22 Fluconazole/ Sodium Chloride 200 ml @ 100 mls/hr Q24H IV 08/28/17 08:00 09/08/17 08:35 Fluconazole/ Sodium Chloride 200 ml @ 100 mls/hr Q24H IV 08/28/17 10:00 09/08/17 10:49 (Benadryl) 25 mg Q4H PRN PO 08/29/17 11:30 09/07/17 23:14 (Lovenox Inj) 100 mg Q24H SQ 08/30/17 15:00 09/07/17 15:03 (Pill Splitter) 1 ea UNSCH PRN OTHER 08/30/17 13:00 09/01/17 09:12 (Lopressor) 50 mg Q12HR PO 09/03/17 09:00 09/08/17 08:36 (Catapres) 0.2 mg Q8H PO 09/04/17 08:00 09/08/17 08:36 (Magic Mouthwash Adult Liq) 5 ml ACHS SWISH-SWAL 09/05/17 12:00 09/08/17 08:00 (Cardizem) 90 mg Q6HR PO 09/05/17 12:00 09/08/17 06:59 (Duoneb Neb) 1 ampule Q6HR NEB NEB 09/06/17 16:00 09/08/17 09:40 (Deltasone) 10 mg DAILY PO 09/07/17 09:00 09/08/17 08:36 (NovoLOG SUPPLEMENTAL SCALE) 1 ACHS SLIDING SCALE SQ 09/06/17 17:00 (Pepcid) 20 mg BID NG 09/06/17 21:00 09/08/17 08:36 (Albuterol Neb) 2.5 mg Q2HR NEB PRN NEB 09/07/17 17:45 (Restoril) 30 mg HS PRN PO 09/08/17 21:00 (Mycelex) 10 mg 5 TIMES A DAY BUCCAL 09/08/17 18:00 ([place]) 2 spray Q4H PRN EACH NARE 09/08/17 14:15 Vital Signs / I&O Vital Signs Date Time Temp Pulse Resp B/P (MAP) Pulse Ox O2 Delivery O2 Flow Rate FiO2 09/08/17 10:00 55 09/08/17 09:40 91 Nasal Cannula 4.00 09/08/17 08:00 98.8 67 151/63 (92) 97 09/08/17 08:00 97 Nasal Cannula 4.00 09/08/17 08:00 67 09/08/17 06:00 68 09/08/17 04:00 93 Nasal Cannula 4.00 09/08/17 04:00 68 09/08/17 04:00 97.5 68 17 131/66 (87) 88 09/08/17 02:00 56 09/08/17 00:00 97.6 63 18 128/63 (84) 92 09/08/17 00:00 92 Nasal Cannula 4.00 09/08/17 00:00 63 09/07/17 22:46 93 Nasal Cannula 6.00 09/07/17 22:00 89 09/07/17 20:00 98.1 85 129/76 (93) 93 09/07/17 20:00 85 09/07/17 20:00 93 Nasal Cannula 4.00 09/07/17 18:00 95 I/O 09/07/17 09/07/17 09/07/17 09/08/17 09/08/17 09/08/17 07:00 15:00 23:00 07:00 15:00 23:00 Intake Total 180 ml 400 ml 960 ml 360 ml Output Total 825 ml 1500 ml 1500 ml Balance -645 ml 400 ml -540 ml -1140 ml Intake Oral 180 ml 960 ml 360 ml IV Total 400 ml Output Urine Total 825 ml 1500 ml 1500 ml Bladder Scan Volume Amount 946 ml 746 ml # Bowel Movements 1 3 4 Physical Exam GENERAL: NAD, AAOx3 SKIN: Warm and dry. HEAD: Atraumatic. Normocephalic. EYES: Pupils equal and round. No scleral icterus. No injection or drainage. ENT: No nasal bleeding or discharge. Mucous membranes pink and moist. NECK: Trachea midline. No JVD. CARDIOVASCULAR: Irregularly irregular RESPIRATORY: No accessory muscle use. Clear to auscultation. Breath sounds equal bilaterally. GASTROINTESTINAL: Abdomen soft, non-tender, nondistended. Hepatic and splenic margins not palpable. MUSCULOSKELETAL: Extremities without clubbing, cyanosis, or edema. No obvious deformities. NEUROLOGICAL: Awake and alert. No obvious cranial nerve deficits. Motor grossly within normal limits. Five out of 5 muscle strength in the arms and legs. Normal speech. PSYCHIATRIC: Appropriate mood and affect; insight and judgment normal. Laboratory Laboratory Tests Test 09/08/17 12:13 White Blood Count 11.6 TH/MM3 Red Blood Count 2.71 MIL/MM3 Hemoglobin 8.9 GM/DL Hematocrit 26.9 % Mean Corpuscular Volume 99.2 FL Mean Corpuscular Hemoglobin 32.7 PG Mean Corpuscular Hemoglobin Concent 33.0 % Red Cell Distribution Width 16.5 % Platelet Count 294 TH/MM3 Mean Platelet Volume 7.9 FL Neutrophils (%) (Auto) 88.1 % Lymphocytes (%) (Auto) 5.1 % Monocytes (%) (Auto) 6.5 % Eosinophils (%) (Auto) 0.1 % Basophils (%) (Auto) 0.2 % Neutrophils # (Auto) 10.3 TH/MM3 Lymphocytes # (Auto) 0.6 TH/MM3 Monocytes # (Auto) 0.8 TH/MM3 Eosinophils # (Auto) 0.0 TH/MM3 Basophils # (Auto) 0.0 TH/MM3 CBC Comment AUTO DIFF Differential Total Cells Counted 100 Neutrophils % (Manual) 71 % Band Neutrophils % 7 % Lymphocytes % 7 % Monocytes % 14 % Neutrophils # (Manual) 9.2 TH/MM3 Metamyelocytes 1 % Nucleated Red Blood Cells 3 /100 WBC Differential Comment FINAL DIFF MANUAL Platelet Estimate NORMAL Platelet Morphology Comment NORMAL Polychromasia 2.0 % Basophilic Stippling FAINT Blood Urea Nitrogen 18 MG/DL Creatinine 0.43 MG/DL Random Glucose 87 MG/DL Total Protein 5.5 GM/DL Albumin 2.3 GM/DL Calcium Level 8.4 MG/DL Phosphorus Level 3.7 MG/DL Magnesium Level 1.9 MG/DL Alkaline Phosphatase 72 U/L Aspartate Amino Transf (AST/SGOT) 15 U/L Alanine Aminotransferase (ALT/SGPT) 24 U/L Total Bilirubin 0.5 MG/DL Sodium Level 140 MEQ/L Potassium Level 4.3 MEQ/L Chloride Level 107 MEQ/L Carbon Dioxide Level 23.7 MEQ/L Anion Gap 9 MEQ/L Estimat Glomerular Filtration Rate 141 ML/MIN Digoxin Level 1.2 NG/ML Imaging Last 24 hours Impressions Chest X-Ray 09/08/17 0600 Signed Impressions: Service Date/Time: Friday, September 08, 2017 03:23 - CONCLUSION: Unchanged bilateral pleural effusions and associate atelectasis versus infiltrates. 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 (3) Weakness ICD Codes: R53.1 - Weakness (4) Pain ICD Codes: R52 - Pain, unspecified (5) Hypotension ICD Codes: I95.9 - Hypotension, unspecified (6) Altered mental status ICD Codes: R41.82 - Altered mental status, unspecified (7) UTI (urinary tract infection) ICD Codes: N39.0 - Urinary tract infection, site not specified (8) Tachycardia ICD Codes: R00.0 - Tachycardia, unspecified (9) Rhabdomyolysis ICD Codes: M62.82 - Rhabdomyolysis (10) Dyspnea ICD Codes: R06.00 - Dyspnea, unspecified (11) Anxiety ICD Codes: F41.9 - Anxiety disorder, unspecified (12) Acute renal failure ICD Codes: N17.9 - Acute kidney failure, unspecified (13) Septic shock ICD Codes: A41.9 - Sepsis, unspecified organism; R65.21 - Severe sepsis with septic shock (14) Acute respiratory failure ICD Codes: J96.00 - Acute respiratory failure, unspecified whether with hypoxia or hypercapnia (15) Alcohol abuse ICD Codes: F10.10 - Alcohol abuse, uncomplicated Assessment and Plan 1) AFib with RVR Now controlled on Digoxin, metoprolol tartrate and Cardizem If further episodes, may need to increase Digoxin 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
[2017-09-08] MEDS: SODIUM CHLORIDE 0.65% NASAL SPRAY 45 ML BTL EACH NARE PRN (17:48)
[2017-09-08] MEDS: CLOTRIMAZOLE 10 MG TROCHE BUCCAL SCH ×2 (17:50→22:55)
[2017-09-08] MEDS: ENOXAPARIN SODIUM 100 MG/ML SYRINGE SQ SCH (18:03)
[2017-09-08] MEDS ORDERED: MAGNESIUM SULFATE 1 GM PREMIX 100 ML IV ONE (20:30)
[2017-09-08] MEDS: TEMAZEPAM 15 MG CAP PO PRN (22:54)
[2017-09-09] VITALS (12 sets, daily range): BP systolic 125–144; BP diastolic 65–70; PULSE 83–110; TEMP 97.7–100.1; O2SAT 75–100
[2017-09-09] MEDS: RESP: ALBUTEROL 2.5 MG/IPRATROPIUM 0.5 MG NEB (SCH) NEB ×2 (03:55→09:22)
--- NOTE | 2017-09-09 05:07 | RADRPT ---
EXAM DATE/TIME: 09/09/2017 03:37 [facility] COMPARISON: CHEST SINGLE AP, September 08, 2017, 3:23. INDICATIONS : Short of breath. MEDICAL HISTORY : Hypertension. SURGICAL HISTORY : Appendectomy. Hysterectomy. Breast augmentation ENCOUNTER: Subsequent ACUITY: 1 week PAIN SCORE: 0/10 LOCATION: Bilateral chest FINDINGS: A single portable frontal view of the chest shows bilateral pleural effusions and bibasilar infiltrat es. These are unchanged. Heart is at the upper limits of normal in terms of size. CONCLUSION: Unchanged bilateral effusions and associated atelectasis/infiltrates. Matt Mckeon Jr., MD on September 09, 2017 at 5:05 Board Certified Radiologist. This report was verified electronically.
[2017-09-09 05:48] LABS: ALBUMIN 2.4 GM/DL (3.4-5.0); ALKALINE PHOSPHATASE 76 U/L (45-117); ALT (GPT) 27 U/L (10-53); AST (GOT) 45 U/L (15-37); BICARBONATE 22.4 MEQ/L (21.0-32.0); BLOOD UREA NITROGEN 14 MG/DL (7-18); CHLORIDE 107 MEQ/L (98-107); CREATININE 0.41 MG/DL (0.50-1.00); GLOMERULAR FILTRATION RATE 149 ML/MIN (>89); GLUCOSE,RANDOM 80 MG/DL (74-106); MAGNESIUM 2.2 MG/DL (1.5-2.5); PHOSPHORUS 3.4 MG/DL (2.5-4.9); SODIUM (NA) 138 MEQ/L (136-145); TOTAL BILIRUBIN ADULT 0.6 MG/DL (0.2-1.0); TOTAL PROTEIN 6.2 GM/DL (6.4-8.2)
[2017-09-09] MEDS: DILTIAZEM HCL 90 MG TAB PO SCH ×3 (06:00→12:49)
[2017-09-09] MEDS: CLOTRIMAZOLE 10 MG TROCHE BUCCAL SCH ×4 (06:00→20:17)
[2017-09-09 06:14] LABS: WHITE BLOOD COUNT 8.1 TH/MM3 (4.0-11.0)
[2017-09-09 06:15] LABS: AUTOMATED NEUTROPHIL # 6.9 TH/MM3 (1.8-7.7); BASOPHIL % 0.2 % (0.0-2.0); EOSINOPHIL % 0.2 % (0.0-4.0); HEMATOCRIT 32.7 % (35.0-46.0); HEMOGLOBIN 10.9 GM/DL (11.6-15.3); LYMPH % 8.7 % (9.0-44.0); LYMPHOCYTE # 0.7 TH/MM3 (1.0-4.8); MEAN CELL VOLUME 101.8 FL (80.0-100.0); MEAN CORPUSCULAR HEMOGLOBIN 33.8 PG (27.0-34.0); MEAN CORPUSCULAR HGB CONC 33.2 % (32.0-36.0); MEAN PLATELET VOLUME 8.1 FL (7.0-11.0); MONO % 4.8 % (0.0-8.0); MONOCYTE # 0.4 TH/MM3 (0-0.9); NEUT % 86.1 % (16.0-70.0); PLATELET COUNT 244 TH/MM3 (150-450); RED BLOOD COUNT 3.22 MIL/MM3 (4.00-5.30); RED CELL DISTRIBUTION WIDTH 18.2 % (11.6-17.2)
[2017-09-09] MEDS: INSULIN ASPART SUPPLEMENTAL SCALE SQ SCH ×3 (08:00→20:16)
[2017-09-09] MEDS: FLUCONAZOLE 400 MG PREMIX BAG 200 ML IV SCH (08:00)
[2017-09-09] MEDS: predniSONE 10 MG TAB PO SCH (08:47)
[2017-09-09] MEDS: MULTIVITAMIN TAB PO SCH (08:47)
[2017-09-09] MEDS: METOPROLOL TARTRATE 50 MG TAB PO SCH ×2 (08:47→20:16)
[2017-09-09] MEDS: DIGOXIN SOLUTION 0.125 MG/2.5 ML CUP PO SCH (08:47)
[2017-09-09] MEDS: FERROUS SULFATE 300 MG /5ML UDC PO SCH ×2 (08:47→20:15)
[2017-09-09] MEDS: ASPIRIN 81 MG CHEW TAB OG-TUBE SCH (08:47)
[2017-09-09] MEDS: FAMOTIDINE 20 MG TAB NG SCH ×2 (08:47→20:15)
[2017-09-09] MEDS: FOLIC ACID 1 MG TAB PO SCH (08:47)
[2017-09-09] MEDS: THIAMINE HCL 100 MG TAB PO SCH (08:47)
[2017-09-09] MEDS: cloNIDine HCL 0.2 MG TAB PO SCH ×3 (08:47→15:21)
--- NOTE | 2017-09-09 08:58 | HHI.IDPN ---
Subjective Subjective Remarks Ms. Olson is an 82 year old female with past medical history of hypertension, possible sleep apnea, chronic neck pain, sciatica, alcohol abuse, arthritis, chronic rectal prolapse with bowel incontinence and anxiety. Patients daughter reports she was away for last week (normally she lives with Mom). She checked on her mom each night. The night prior to admission patient and daughter spoke to each other and no reported fever or change in behavior etc noted. No recent bounced checks, change in behavior, fires, falls or doors left unopened or such security concerns. She was found by her daughter lying in bed. On questioning patient was not found vomiting and no seizures. But patient was found in urine and feces. With this background patient presented [facility] ER on when daughter arrived home to find patient laying on the bed covered in urine and feces. She was obtunded and 911 was called. Upon arrival to the ER: * VS - 100.2, HR 104, RR 18, BP 125/55, O2 sat 95% on room air. * WBC 10.2, hgb 13.8, hct 41.6, platelets 304, neutrophils 91.3% * BUN 52, creatinine 3.39, glucose 177, sodium 141, potassium 5.1, chloride 103 , GFR 13 * Lactic acid 6.3 * TCK 3855, CK-MB 113.6, CK-MB 2.9% * CT head - unremarkable * CXR - minimal basilar atelectasis, no effusion or pneumothorax [facility] for severe dehydration. acute renal failure, rhabdomyolysis, lactic acidosis, possible UTI, sepsis. Overnight she developed tachycardia, hypotension and hypoxemia. She was transferred to ICU placed on pressor support. She was started on heparin drip per PE protocol. Market Development Analyst was consulted for hypotension, septic shock. On non -rebreather with with oxygen saturation 90% and BP 79/50. Since admission she was intubated and placed on mech vent. Notes reviewed since last seen. Has been awaiting transfer to [facility] pending PT/OT eval. Otherwise clinically doing better. Appetite low. Blood sugar 24 this am. Receiving D50 when I was visiting her. She was asymptomatic. Awake and oriented. Temps ok Feels better Swallowing better On nasal O2 No rash Stool liquid, Cdiff negative. No abd pain. Antibiotics Current Medications Medications (Trade) Dose Ordered Sig/Al Route Start Time Stop Time Status Last Admin (NS Flush) 2 ml UNSCH PRN IV FLUSH 08/15/17 02:00 09/04/17 07:49 (NS Flush) 2 ml BID IV FLUSH 08/15/17 09:00 09/08/17 22:56 (Narcan Inj) 0.4 mg UNSCH PRN IV PUSH 08/15/17 02:00 Miscellaneous Information Patient in critical care unit? Ass... Q361D .XX 08/15/17 06:15 08/15/17 06:15 (Vitamin B1) 100 mg DAILY PO 08/15/17 12:00 09/09/17 08:47 (Theragran) 1 tab DAILY PO 08/15/17 12:00 09/09/17 08:47 (Folate) 1 mg DAILY PO 08/15/17 12:00 09/09/17 08:47 (Aspirin Chew) 81 mg DAILY OG-TUBE 08/15/17 19:00 09/09/17 08:47 (D50w (Vial) Inj) 50 ml UNSCH PRN IV PUSH 08/16/17 08:00 09/09/17 08:31 (Glucagon Inj) 1 mg UNSCH PRN OTHER 08/16/17 08:00 (Trandate Inj) 20 mg Q4H PRN IV PUSH 08/21/17 17:15 08/21/17 21:51 (Tylenol 650 Mg/ 20 ml Liq) 650 mg Q6H PRN NG 08/24/17 13:00 (Lanoxin Liq) 0.125 mg DAILY PO 08/25/17 09:00 09/09/17 08:47 (Ferrous Sulfate Liq) 300 mg BID PO 08/24/17 21:00 09/09/17 08:47 (NS Flush) DAILY IV FLUSH 08/25/17 09:00 09/07/17 08:39 (NS Flush) UNSCH PRN IV FLUSH 08/24/17 17:45 09/04/17 07:49 Miscellaneous Information D/C ICU ELECTROLYTE ORDERS... UNSCH PRN .XX 08/25/17 15:00 Miscellaneous Information ICU - CALL ORDERING PHYSIC... UNSCH PRN .XX 08/25/17 15:00 Potassium Chloride 100 ml @ 25 mls/hr UNSCH PRN IV 08/25/17 15:00 08/29/17 16:51 (K-Lyte Cl Eff) 50 meq UNSCH PRN PO 08/25/17 15:00 Potassium Chloride 100 ml @ 50 mls/hr UNSCH PRN IV 08/25/17 15:00 09/01/17 20:35 Magnesium Sulfate 4 gm/Sodium Chloride 108 ml @ 54 mls/hr UNSCH PRN IV 08/25/17 15:00 Magnesium Sulfate 2 gm/Sodium Chloride 104 ml @ 52 mls/hr UNSCH PRN IV 08/25/17 15:00 (Mag-Ox) 800 mg UNSCH PRN PO 08/25/17 15:00 Sodium Phosphate 30 mmol/Sodium Chloride 260 ml @ 43.333 mls/ hr UNSCH PRN IV 08/25/17 15:00 (K-Phos) 2,000 mg UNSCH PRN PO 08/25/17 15:00 Potassium Phosphate 30 mmol/ Sodium Chloride 260 ml @ 43.333 mls/ hr UNSCH PRN IV 08/25/17 15:00 09/02/17 08:07 (Roxicodone) 5 mg Q6H PRN PO 08/27/17 13:00 (Morphine Inj) 1 mg Q4H PRN IV 08/27/17 11:00 09/08/17 03:22 Fluconazole/ Sodium Chloride 200 ml @ 100 mls/hr Q24H IV 08/28/17 08:00 09/09/17 08:00 Fluconazole/ Sodium Chloride 200 ml @ 100 mls/hr Q24H IV 08/28/17 10:00 09/08/17 10:49 (Benadryl) 25 mg Q4H PRN PO 08/29/17 11:30 09/07/17 23:14 (Lovenox Inj) 100 mg Q24H SQ 08/30/17 15:00 09/08/17 18:03 (Pill Splitter) 1 ea UNSCH PRN OTHER 08/30/17 13:00 09/01/17 09:12 (Lopressor) 50 mg Q12HR PO 09/03/17 09:00 09/09/17 08:47 (Catapres) 0.2 mg Q8H PO 09/04/17 08:00 09/09/17 08:47 (Magic Mouthwash Adult Liq) 5 ml ACHS SWISH-SWAL 09/05/17 12:00 09/08/17 21:00 (Cardizem) 90 mg Q6HR PO 09/05/17 12:00 09/09/17 00:00 (Duoneb Neb) 1 ampule Q6HR NEB NEB 09/06/17 16:00 09/08/17 21:24 (Deltasone) 10 mg DAILY PO 09/07/17 09:00 09/09/17 08:47 (NovoLOG SUPPLEMENTAL SCALE) 1 ACHS SLIDING SCALE SQ 09/06/17 17:00 (Pepcid) 20 mg BID NG 09/06/17 21:00 09/09/17 08:47 (Albuterol Neb) 2.5 mg Q2HR NEB PRN NEB 09/07/17 17:45 (Restoril) 30 mg HS PRN PO 09/08/17 21:00 09/08/17 22:54 (Mycelex) 10 mg 5 TIMES A DAY BUCCAL 09/08/17 18:00 09/09/17 06:00 ([place]) 2 spray Q4H PRN EACH NARE 09/08/17 14:15 09/08/17 17:48 Lines PIV Line sites with no e.o infections. Past Medical History reviewed Allergies: Coded Allergies: No Known Allergies (Verified Allergy, Unknown, 08/15/17) Objective . Vital Signs Date Time Temp Pulse Resp B/P (MAP) Pulse Ox O2 Delivery O2 Flow Rate FiO2 09/09/17 06:00 99 09/09/17 04:00 97 09/09/17 04:00 91 Nasal Cannula 4.00 09/09/17 04:00 97.7 97 144/70 (94) 77 09/09/17 02:00 101 09/09/17 00:00 98.0 98 137/67 (90) 75 09/09/17 00:00 98 09/09/17 00:00 90 Nasal Cannula 4.00 09/08/17 22:00 106 09/08/17 21:27 94 Nasal Cannula 4.00 09/08/17 20:00 97.7 79 20 129/68 (88) 91 09/08/17 20:00 90 Nasal Cannula 4.00 09/08/17 20:00 79 09/08/17 18:00 80 09/08/17 16:00 97.9 128/67 (87) 88 09/08/17 16:00 88 Nasal Cannula 4.00 09/08/17 16:00 88 09/08/17 14:00 68 09/08/17 12:00 88 Nasal Cannula 4.00 09/08/17 12:00 98.5 123/63 (83) 62 09/08/17 12:00 62 09/08/17 10:00 55 09/08/17 09:40 91 Nasal Cannula 4.00 . Laboratory Tests Test 09/07/17 13:08 09/08/17 12:13 09/09/17 04:20 White Blood Count 11.3 TH/MM3 11.6 TH/MM3 8.1 TH/MM3 Red Blood Count 2.85 MIL/MM3 2.71 MIL/MM3 3.22 MIL/MM3 Hemoglobin 9.1 GM/DL 8.9 GM/DL 10.9 GM/DL Hematocrit 28.1 % 26.9 % 32.7 % Mean Corpuscular Volume 98.7 FL 99.2 FL 101.8 FL Mean Corpuscular Hemoglobin 32.0 PG 32.7 PG 33.8 PG Mean Corpuscular Hemoglobin Concent 32.4 % 33.0 % 33.2 % Red Cell Distribution Width 15.4 % 16.5 % 18.2 % Platelet Count 354 TH/MM3 294 TH/MM3 244 TH/MM3 Mean Platelet Volume 7.8 FL 7.9 FL 8.1 FL Neutrophils (%) (Auto) 85.8 % 88.1 % 86.1 % Lymphocytes (%) (Auto) 6.3 % 5.1 % 8.7 % Monocytes (%) (Auto) 7.5 % 6.5 % 4.8 % Eosinophils (%) (Auto) 0.1 % 0.1 % 0.2 % Basophils (%) (Auto) 0.3 % 0.2 % 0.2 % Neutrophils # (Auto) 9.7 TH/MM3 10.3 TH/MM3 6.9 TH/MM3 Lymphocytes # (Auto) 0.7 TH/MM3 0.6 TH/MM3 0.7 TH/MM3 Monocytes # (Auto) 0.8 TH/MM3 0.8 TH/MM3 0.4 TH/MM3 Eosinophils # (Auto) 0.0 TH/MM3 0.0 TH/MM3 0.0 TH/MM3 Basophils # (Auto) 0.0 TH/MM3 0.0 TH/MM3 0.0 TH/MM3 CBC Comment AUTO DIFF AUTO DIFF DIFF FINAL Differential Total Cells Counted 100 100 Neutrophils % (Manual) 87 % 71 % Lymphocytes % 6 % 7 % Monocytes % 5 % 14 % Neutrophils # (Manual) 10.1 TH/MM3 9.2 TH/MM3 Metamyelocytes 1 % 1 % Myelocytes 1 % Nucleated Red Blood Cells 2 /100 WBC 3 /100 WBC Differential Comment FINAL DIFF MANUAL FINAL DIFF MANUAL Platelet Estimate NORMAL NORMAL Platelet Morphology Comment NORMAL NORMAL Band Neutrophils % 7 % Polychromasia 2.0 % Basophilic Stippling FAINT Laboratory Tests Test 09/07/17 13:08 09/08/17 12:13 09/09/17 04:20 Blood Urea Nitrogen 17 MG/DL 18 MG/DL 14 MG/DL Creatinine 0.41 MG/DL 0.43 MG/DL 0.41 MG/DL Random Glucose 109 MG/DL 87 MG/DL 80 MG/DL Calcium Level 7.5 MG/DL 8.4 MG/DL 8.0 MG/DL Sodium Level 140 MEQ/L 140 MEQ/L 138 MEQ/L Potassium Level 4.5 MEQ/L 4.3 MEQ/L 4.6 MEQ/L Chloride Level 108 MEQ/L 107 MEQ/L 107 MEQ/L Carbon Dioxide Level 23.9 MEQ/L 23.7 MEQ/L 22.4 MEQ/L Anion Gap 8 MEQ/L 9 MEQ/L 9 MEQ/L Estimat Glomerular Filtration Rate 149 ML/MIN 141 ML/MIN 149 ML/MIN Phosphorus Level 3.0 MG/DL 3.7 MG/DL 3.4 MG/DL Magnesium Level 2.0 MG/DL 1.9 MG/DL 2.2 MG/DL Total Protein 5.5 GM/DL 6.2 GM/DL Albumin 2.3 GM/DL 2.4 GM/DL Alkaline Phosphatase 72 U/L 76 U/L Aspartate Amino Transf (AST/SGOT) 15 U/L 45 U/L Alanine Aminotransferase (ALT/SGPT) 24 U/L 27 U/L Total Bilirubin 0.5 MG/DL 0.6 MG/DL Imaging Last Impressions Abdomen X-Ray 08/21/17 0600 Signed Impressions: Service Date/Time: July 03:35 - CONCLUSION: The bowel gas pattern remains fairly unremarkable. Jl Stanley MD Chest X-Ray 08/21/17 0000 Signed Impressions: Service Date/Time: July 19:39 - CONCLUSION: 1. Stable tubes and lines, as above. 2. Worsening bilateral lower lung zone pleural parenchymal disease. Douglas Jean MD Lumbar Puncture Fluoroscopy 08/15/17 0000 Signed Impressions: Service Date/Time: Tuesday, August 15, 2017 15:36 - CONCLUSION: 1. Uncomplicated fluoroscopically guided lumbar puncture. 2. Please note, requested opening pressures were not obtained due to technical difficulties. Shashi Moreno MD Brain MRI 08/15/17 0000 Signed Impressions: Service Date/Time: Tuesday, August 15, 2017 16:57 - CONCLUSION: 1. 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 2. Mild stenosis in the upper cervical spine as above. Esau Martell MD Abdomen/Pelvis CT 08/15/17 0000 Signed Impressions: Service Date/Time: Wednesday, August 16, 2017 00:25 - CONCLUSION: 1. Abnormal thickening of the descending colonic wall and the possibility of colitis should be entertained. There is also thickening of distal ileal wall which may be inflammatory as well. 2. There is mild anasarca with edema or inflammatory changes within the bilateral paracolic gutters extending down into the pelvis. 3. Small bilateral pleural effusions and bibasilar atelectasis and/or infiltrate. 4. Prominent ileocecal valve and possibility of lipoma at this site is not excluded. Josseline Villagomez MD Abdomen Ultrasound 08/15/17 0000 Signed Impressions: Service Date/Time: Tuesday, August 15, 2017 10:40 - CONCLUSION: 1. No abnormality is identified to explain the clinical symptoms. There is no hydronephrosis. 2. The liver is normal in size and echotexture. Adan Machuca MD Head CT [id number]/14/[id number] Signed Impressions: Service Date/Time: July 22:54 - CONCLUSION: Unremarkable study. Josseline Villagomez MD Physical Exam GENERAL: Awake, following commands. NAD On nasal O2 SKIN: No rashes, ecchymoses or lesions. Warm and dry. HEAD: Atraumatic. Normocephalic. No temporal or scalp tenderness. EYES: Pupils equal round and reactive. Extraocular motions intact. No scleral icterus. No injection or drainage. Has mild scleral edema ENT: Moist oral mucosa, no nasal drainage NECK: Trachea midline. Supple, nontender, CARDIOVASCULAR: + murmur, no gallops, rub RESPIRATORY: Decreased BS at bases GASTROINTESTINAL: Abdomen soft, not distended, not tender, hypoactive bowels sounds, no guarding or rebound. MUSCULOSKELETAL: Extremities without clubbing. No calf tenderness. Negative Homans sign bilaterally. NEUROLOGICAL: Non focal Psych: Cooperative IV line sites with no e.o infection. Assessment & Plan Remarks Assessment and Plan Fungemia in setting of bilateral UE DVT will treat as Septic thrombophlebitis. C.Parapsilosis fungal septic thrombophlebitis. Sepsis. HCAP with effusions. Staph epidermidis: likely pseudobacteremia/contaminant. Specimen from old line, already removed. Acute resp failure on vent Acute metabolic encephalopathy: appears resolving. Alcohol abuse: at risk for withdrawal. Acute rhabdomyolysis: ? seizures. Acute renal failure: sepsis, prerenal, rhabdomyolysis. Colitis clinically and radiologically ; likely ischemic - C diff negative Recs: Continue Diflucan for C.Parapsilosis fungal septic thrombophlebitis and possible endocarditis. (STOP DATE: 10/05/2017) C.parapsilosis susceptibilities and Diflucan S. Monitor LFTs and Qt interval while on Diflucan as on high dose. Monitor weekly labs: CBC with diff, CMP. Weekly EKG if QT prolonged reassess need for other agents causing QT prolongation and reconsult ID for alternative antifungal agents. WATCH FOR DRUG INTERACTIONS as pt on high dose diflucan. No need for FERNANDO chuck given fragile resp status. 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 Will sign off please call back if any change in clinical condition or questions. Piedad Corea MD Sep 09, 2017 08:58
[2017-09-09] MEDS: FLUCONAZOLE 200 MG TAB PO SCH (10:00)
[2017-09-09] MEDS ORDERED: GLYCERIN TOPICAL ONE (14:00)
[2017-09-09] MEDS ORDERED: FUROSEMIDE 20 MG/2 ML VIAL IV PUSH ONE (14:15)
--- NOTE | 2017-09-09 14:17 | HHI.CCPN ---
Subjective Remarks/Hospital Course Patient is an 82-year-old female with past medical history of irritable bowel syndrome, hypertension, arthritis, diverticulitis who presented to the [facility] ED after she was found lying on her bed with urine and feces all around her bed. In addition, the patient was altered and obtunded. Most of the history was obtained from reviewing the medical records. Her laboratory data showed acute renal failure with BUN of 52, creatinine 3.39 and lactic acidosis with a lactic acid level of 6.3. In addition, the patient was in rhabdomyolysis with elevated CK at 3855. She was admitted under the hospitalist service; however, a [facility] was called due to worsening mental status, hypertension and hypoxemia. She was transferred to [facility] and critical care medicine was consulted for critical care management. When seen, the patient was lethargic, not following any commands, hypotensive. She was subsequently intubated by myself and a right internal jugular central line was placed for hemodynamic monitoring. ABG post intubation showed a pH of 7.31, co2 of 30, pA02 of 117, bicarbonate 15 and saturation of 96% on PRVC rate of 14, tidal volume 350 with IT:1, PEEP 5 and FIO2 of 100%. She was given two liter boluses of normal saline and placed on a bicarbonate drip. Her lactic acid level is trending down and is currently 3.4 from 6.3 on arrival. In addition, her renal function is improving with IV hydration. Her creatinine level is 2.29 from 3.39. Due to hypotension, Levophed was started. A CT scan of the brain in the emergency department was unremarkable. Her initial chest x-ray showed minimal basilar atelectasis, no effusions or pneumothoraces. According to the patient's family, the patient has been intermittently binge drinking. In addition, they report her having diarrhea for a few days. She had a low-grade fever with a temperature of 100.2 last night. 08/16 Patient is sedated with Fentanyl drip intubated and on Levophed 5 mics. On Bicarb drip. MRI brain yesterday showed small lacunar infarcts in left cerebellar hemisphere and right parietal lobe. Lp showed clear CSF, 17 wbc. Afebrile.Renal function worse today with Cr: 2.64 from 2.29 08/17 Patient remains sedated and intubated. On Bicarb drip. Off Levophed renal function slightly worse today with Cr: 2.82 from 2.64 and UOP: 550 ml in 24 hrs 08/18 Patient bit through ETT overnight s/p new ETT placement using tube exchanger. Sedated with Diprivan and Fentanyl. Afebrile. Renal function is improving with Cr: 1.97 from 2.82. On Bicarb drip. Tube feeds held for possible colonoscopy today. 08/19: Remains sedated, orally intubated on mechanical ventilation. Colonoscopy done yesterday revealed ischemic colitis. Has been evaluated by general surgery. Patient went into A. fib with RVR last night and was started on a Cardizem drip. On Levophed for hypotension 08/20: Remains sedated, orally intubated on mechanical ventilation. Started on TPN on 08/19. Cardizem drip turned off this morning. Received 1 dose of digoxin yesterday. 08/21: Remains sedated, orally intubated on mechanical ventilation. On TPN. Ordered Precedex as well as digoxin daily. Starting trophic feeds today. 08/22 Patient remains intubated on Precedex and Fentanyl infusion for sedation. afebrile. 08/23 WBC up to 17.7. Temp max 102.2. Blood culture sent today peripherally ( labelled as line draw initially but was not drawn from a line, lab notified to re-label). Tolerating trophic feeds. Awake and on CPAP 10/5 with RSBI 50s, became labored and desat with 5/5. Denies abdominal pain. 08/24: Tmax 102.7 overnight. Currently 100.6. Noted yeast growing from blood culture 08/21. Remains in atrial fibrillation. Potassium currently been replaced. Currently only has once peripheral IV access. Will need central line placed later this afternoon. 08/25 Patient is awake and alert on CPAP trials. T: 101.1 last night. On Heparin and Bumex drips 08/26 Patient was extubated yesterday on 3L oxygen. She went into Afib with RVR last night given Labetalol. Afebrile. 08/27: Patient is slightly tachypneic, but maintaining O2 sat. chest x-ray shows at least moderate sized pleural effusions. Start Lasix 40 mg IV every 12 [address] Doe catheter for accurate intake output and also appears that patient has urinary retention. Remains in atrial fibrillation with RVR, on Cardizem at 15 mg per hour. 08/28: On BiPAP overnight. Currently on 4 L nasal cannula. Fluctuating neurologic status consistent with delirium. Remains on Cardizem drip at 5 mg per hour for A. fib with RVR. Diuresing well with Lasix. 08/29: Respiratory status borderline with tachypnea. Requiring intermittent BiPAP. Started on Precedex for anxiety. Dropped blood pressure. 1 unit PRBCs ordered. Solu-Medrol 125 mg IV 1 dose ordered as well. Scheduled for CT- guided thoracentesis for right side today. Heparin GTT held for thoracentesis. Chest x-ray with bilateral pleural effusions despite diuresis. 08/30: Seems to be breathing a little better. Was on BiPAP overnight. Currently on nasal cannula. Knows she is at the hospital and follows commands appropriately. Underwent bilateral thoracentesis yesterday with drainage of 500 cc from right side and 300 cc from left. On Precedex which appears to be working well for anxiety. 08/31: Remains on nasal cannula. Did not use BiPAP at night. Awake and alert. Following commands appropriately. By mouth intake remains borderline. On Precedex 0.2 mics per KG per hour. 09/01 Patient is on 3L oxygen with good sats, hypertensive Remains on Precedex 0.2 mics per KG per hour 09/02 No events overnight. Off Precedex drip. Afebrile. On 3L oxygen. 09/03 Patient is awake, alert remains on 3L oxygen, Afebrile. Requesting something to help her sleep. 09/04 Patient is on 3L oxygen. Afebrile. 09/05 Patient is lying in bed in NAD. Thoracentesis couldn't be done by IR as pleural effusion is too small per CT images. Afebrile. 09/06 On 3 L nasal cannula. Has a lunch tray and is feeding herself with nurse encouragement. Afebrile. Afib rate controlled 70s to 80s. Patient complains of inability to sleep at night. Stool C diff ordered today per ID due to increased stool frequency. 09/07: Resting in bed in no acute distress on 3 L nasal cannula. 09/08: Resting in bed in no acute distress. Currently on 4 L nasal cannula. Requesting antidiarrheal medication for diarrhea. Subjective: 09/09: Afebrile. Currently on 4 L nasal cannula. Feels weaker today. Painful with difficulty swallowing. Blood sugars 24 this a.m.. Requesting feeding tube to get stronger. Objective Vital Signs Date Time Temp Pulse Resp B/P (MAP) Pulse Ox O2 Delivery O2 Flow Rate FiO2 09/09/17 10:00 110 09/09/17 08:00 Nasal Cannula 4.00 09/09/17 08:00 97.8 09/09/17 04:00 91 09/09/17 04:00 144/70 (94) 09/08/17 20:00 20 Intake and Output 09/09/17 09/09/17 09/10/17 08:00 16:00 00:00 Output Total 1200 ml Balance -1200 ml Result Diagram: 09/09/17 0420 09/09/17 0420 Other Results Microbiology Date/Time Source Procedure Growth Status 08/29/17 17:23 Blood Peripheral Aerobic Blood Culture - Final NO GROWTH IN 5 DAYS Complete 08/29/17 17:23 Blood Peripheral Anaerobic Blood Culture - Final NO GROWTH IN 5 DAYS Complete 08/29/17 15:00 Fluid Pleural Fluid Fungal Smear - Final NO FUNGAL ELEMENTS SEEN. Resulted 08/29/17 15:00 Fluid Pleural Fluid Fungal Culture - Preliminary NO GROWTH IN 1 WEEK Resulted 08/15/17 02:28 Stool Stool Stool Occult Blood (MARCIA) - Final HEMOCCULT NEGATIVE Complete 08/21/17 15:20 Sputum Endotracheal Gram Stain - Final Complete 08/21/17 15:20 Sputum Endotracheal Sputum Culture - Final NO GROWTH IN 48 HOURS. Complete 08/21/17 13:45 Urine Catheterized Urine Urine Culture - Final NO GROWTH IN 48 HOURS. Complete Imaging Last Impressions Chest X-Ray 09/09/17 0600 Signed Impressions: Service Date/Time: Saturday, September 09, 2017 03:37 - CONCLUSION: Unchanged bilateral effusions and associated atelectasis/infiltrates. Matt Mckeon Jr., MD Thoracentesis 09/04/17 0000 Signed Impressions: Service Date/Time: August 15:12 - CONCLUSION: 1. Small bilateral pleural effusions with concomitant atelectatic changes. 2. Fluid collections are too small to safely drain percutaneously with CT. Shashi Moreno MD Chest Ultrasound 09/04/17 0000 Signed Impressions: Service Date/Time: August 09:23 - CONCLUSION: Right pleural effusion as above. Shashi Moreno MD Chest CT 08/29/17 0000 Signed Impressions: Service Date/Time: Tuesday, August 29, 2017 14:48 - CONCLUSION: Following thoracentesis there is decreasing amount of effusion. Significant consolidation persists. There is no pneumothorax. Juan J Joel MD FACR Abdomen/Pelvis CT 08/23/17 1426 Signed Impressions: Service Date/Time: Wednesday, August 23, 2017 22:50 - CONCLUSION: 1. Suspected mild diffuse colitis, nonspecific but presumably infectious or inflammatory. No obstruction or abscess. 2. Trace ascites about the same there is worsening anasarca and worsening pleural effusions and consolidation of both lung bases. 3. Tiny nonobstructing stone of the right kidney and a generally benign appearing cyst lower pole the left kidney. No evidence of obstructive uropathy or other etiology for acute renal failure. 4. Atherosclerotic aorta. No aneurysm. Adan Nunes MD Upper Extremity Ultrasound 08/23/17 0000 Signed Impressions: Service Date/Time: Wednesday, August 23, 2017 16:25 - CONCLUSION: Bilateral upper extremity DVT as described above. Samuel Peralta MD Lower Extremity Ultrasound 08/23/17 0000 Signed Impressions: Service Date/Time: Wednesday, August 23, 2017 15:50 - CONCLUSION: 1. There is incomplete compression of the left common femoral vein raising suspicion for nonocclusive thrombus. This vessel, however, still demonstrates normal Doppler blood flow and respiratory variability. 2. The remaining veins of the left lower extremity are patent and the entire right lower extremity is patent without thrombus. Adan Machuca MD Abdomen X-Ray 08/21/17 0600 Signed Impressions: Service Date/Time: July 03:35 - CONCLUSION: The bowel gas pattern remains fairly unremarkable. Jl Stanley MD Lumbar Puncture Fluoroscopy 08/15/17 0000 Signed Impressions: Service Date/Time: Tuesday, August 15, 2017 15:36 - CONCLUSION: 1. Uncomplicated fluoroscopically guided lumbar puncture. 2. Please note, requested opening pressures were not obtained due to technical difficulties. Shashi Moreno MD Brain MRI 08/15/17 0000 Signed Impressions: Service Date/Time: Tuesday, August 15, 2017 16:57 - CONCLUSION: 1. 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 2. Mild stenosis in the upper cervical spine as above. Esau Martell MD Abdomen Ultrasound 08/15/17 0000 Signed Impressions: Service Date/Time: Tuesday, August 15, 2017 10:40 - CONCLUSION: 1. No abnormality is identified to explain the clinical symptoms. There is no hydronephrosis. 2. The liver is normal in size and echotexture. Adan Machuca MD Head CT 08/14/172231 Signed Impressions: Service Date/Time: July 22:54 - CONCLUSION: Unremarkable study. KStepan Villagomez MD Objective Remarks GENERAL: 82-year-old female currently resting in chair nasal cannula with probe on forehead SKIN: Warm and dry. HEAD: Normocephalic. EYES: R pupil 3 mm reactive, L pupil 4 mm reactive. No scleral icterus. No injection or drainage. NECK: Supple, trachea midline. No JVD or lymphadenopathy. CARDIOVASCULAR: IRR. S1, S2 no S4. Without murmur RESPIRATORY: Diminished breath sounds in the bases bilaterally. No wheezing, rales or rhonchi appreciated. GASTROINTESTINAL: Abdomen soft, non-tender, nondistended. Bowel sounds hypoactive but present. No guarding or rigidity MUSCULOSKELETAL: Trace edema, more prominent LUE. NEURO: Awake alert oriented 3, conversant. 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 every 6 hours as needed fever Oxycodone 5 mg every 4 hours as needed pain 6 or 10, morphine sulfate 1 mg IV every 4 hours as needed anxiety/prn breakthrough. 08/15: CT brain negative for acute intracranial process MRI brain: Small lacunar infarcts in left cerebellar hemisphere and right parietal lobe EEG: Severe encephalopathy Repeat EEG 08/21.- generalized slowing, no epileptiform features Continue thiamine, multivitamin and folic acid daily. Neuro is following- Dr. Danielle LP showed clear CSF, 17 WBC, TP:45.2 Generally weak - PT and OT following. PT recommending acute rehab Continue aspirin 81 mg daily with enoxaparin 100 mg IV twice daily Pulm: Acute respiratory failure, resolved Bilateral pleural effusions -resolved Continue with oxygen keep sat >92% currently on 4 L Albuterol/ipratropium aerosols every 6 hours with albuterol aerosols every 2 hours as needed dyspnea Incentive spirometry Q1 hr while awake. Acapella q6 hours with Duoneb CXR 09/04: bibasilar effusions with common atelectatic changes, Status post bilateral CT-guided thoracentesis by IR on 08/29 with drainage of 500 cc of pleural fluid on right and 300 cc from left(transudative fluid) Thoracentesis wasn't done by IR on 09/04 as pleural effusion is too small per CT images. Currently on prednisone 10 mg p.o. daily. 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 On metoprolol tartrate 50mg Q12,, diltiazem 90 mg every 6 hours and digoxin 0.125 mg daily. Digoxin level 1.2 on 09/08 Clonidine0.2mg Q8 for blood pressure Repeat Echo showed EF 45-50%, Lateral leaflet mitral valve with a 2 mm mobile density, consistent with ? endocarditis Cardiology following, Dr. Myers. Previous clockmaker documented with Dr. Myers who will defer FERNANDO for now unless recurrent blood culture positivity. Continue aspirin 81 mg by mouth daily/home medication Renal/FEN/: Acute kidney injury, resolved Lactic acidemia, resolved Rhabdomyolysis resolved Right-sided nephrolithiasis/nonobstructing Left renal cyst Monitor renal function, intake and output and avoid nephrotoxins. Renal has followed-Dr. Figueroa, abdomen: No hydronephrosis CT Abd/pelvis revealed nonobstructing right-sided nephrolithiasis and left renal cyst. Continue straight cath. As needed. GI: Ischemic colitis, resolved Severe acute on Chronic protein energy malnutrition AST elevation secondary to alcohol use Internal and external hemorrhoids Regular diet, no consistency restrictions per speech. Ensure with each meal. F/u stool C diff ordered 3/9 per ID negative On famotidine 20 mg twice a day for GI prophylaxis. US liver: No abnormalities identified GI has followed- colonoscopy showed diffuse colitis in the sigmoid colon and descending colon; Necrotic, dusky appearing mucosa. Consistent with severe ischemic colitis. General surgery, Dr. Guadalupe -plan to treat conservatively unless patient worsens clinically. Repeat CT abdomen and pelvis 08/23 mild diffuse colitis Placing NG tube today with dietary for tube feed recommendations Reconsult GI for odynophagia ID: Septic shock resolved UTI Ischemic colitis Fungemia - Felipa parapsilosis Abx per ID -Continue fluconazole 800 mg IV daily , Monitor for signs of infections ( Fever, WBC). Seen by Opth no evidence of endophthalmitis Pertinent cultures 08/29 pleural fluid culture NGTD. 08/26 and 08/29 blood cultures Negative 08/23 - blood culture by line (actually peripheral) - Staph hominus 08/21 - blood culture - no growth 08/21 - sputum - no growth 08/21 - - no growth 08/21 - blood culture - Felipa parapsilosis 08/15 - CSF - negative 08/15 - sputum - no growth 08/14 - blood cultures 2 and UA - no growth C-diff PCR is negative, stool studies negative s/p LP showed clear CSF, 17 WBC, TP:45.2, HSV DNA PCR neg Endo: Hyperglycemia of critical illness/steroid Monitor glucose ac/hs and use low dose sliding scale with NovoLog TSH: 1.15. Heme: Leukocytosis Normocytic anemia B/L UE DVT Possible left common femoral vein DVT Left cephalic/basilic superficial and right superficial cephalic thrombus Monitor CBC, coags- heparin drip stopped on 08/30 and started on Enoxaparin 100 mg subcutaneously daily for full anticoagulation. Iron sulfate 300 mg twice a day. 1 unit PRBCs ordered to be transfused on 08/29 GI prophylaxis with famotidine and DVT prophylaxis with SCDs, Enoxaparin 100mg subcut daily Lines: Peripheral IV's Level 2 followup. Madhu Carrion MD Sep 09, 2017 14:17
[2017-09-09] MEDS: ENOXAPARIN SODIUM 100 MG/ML SYRINGE SQ SCH (15:22)
[2017-09-09] MEDS: SODIUM CHLORIDE 0.9% FLUSH 10 ML FLUSH IV FLUSH SCH ×3 (15:23→20:17)
--- NOTE | 2017-09-09 15:35 | HHI.GIFU ---
Subjective Remarks GI reconsulted for difficulty and painful swallowing. Pt has had painful swallowing for the last few days. Pt and her daughter do not want any endoscopic procedure. Plan was for d/c to rehab but pt is requesting NGT to get some nutrition. (Cathleen Estrella) Objective Vitals I&O Vital Signs Date Time Temp Pulse Resp B/P (MAP) Pulse Ox O2 Delivery O2 Flow Rate FiO2 09/09/17 10:00 110 09/09/17 08:00 Nasal Cannula 4.00 09/09/17 08:00 108 09/09/17 08:00 97.8 108 09/09/17 06:00 99 09/09/17 04:00 97 09/09/17 04:00 91 Nasal Cannula 4.00 09/09/17 04:00 97.7 97 144/70 (94) 77 09/09/17 02:00 101 09/09/17 00:00 98.0 98 137/67 (90) 75 09/09/17 00:00 98 09/09/17 00:00 90 Nasal Cannula 4.00 09/08/17 22:00 106 09/08/17 21:27 94 Nasal Cannula 4.00 09/08/17 20:00 97.7 79 20 129/68 (88) 91 09/08/17 20:00 90 Nasal Cannula 4.00 09/08/17 20:00 79 09/08/17 18:00 80 09/08/17 16:00 97.9 128/67 (87) 88 09/08/17 16:00 88 Nasal Cannula 4.00 09/08/17 16:00 88 I/O 09/08/17 09/08/17 09/08/17 09/09/17 09/09/17 09/09/17 07:00 15:00 23:00 07:00 15:00 23:00 Intake Total 360 ml 250 ml Output Total 1500 ml 650 ml 1200 ml Balance -1140 ml -400 ml -1200 ml Intake Oral 360 ml 250 ml Output Urine Total 1500 ml 650 ml 1200 ml # Bowel Movements 4 5 2 Laboratory Laboratory Tests Test 09/09/17 04:20 White Blood Count 8.1 Red Blood Count 3.22 Hemoglobin 10.9 Hematocrit 32.7 Mean Corpuscular Volume 101.8 Mean Corpuscular Hemoglobin 33.8 Mean Corpuscular Hemoglobin Concent 33.2 Red Cell Distribution Width 18.2 Platelet Count 244 Mean Platelet Volume 8.1 Neutrophils (%) (Auto) 86.1 Lymphocytes (%) (Auto) 8.7 Monocytes (%) (Auto) 4.8 Eosinophils (%) (Auto) 0.2 Basophils (%) (Auto) 0.2 Neutrophils # (Auto) 6.9 Lymphocytes # (Auto) 0.7 Monocytes # (Auto) 0.4 Eosinophils # (Auto) 0.0 Basophils # (Auto) 0.0 CBC Comment DIFF FINAL Differential Comment Blood Urea Nitrogen 14 Creatinine 0.41 Random Glucose 80 Total Protein 6.2 Albumin 2.4 Calcium Level 8.0 Phosphorus Level 3.4 Magnesium Level 2.2 Alkaline Phosphatase 76 Aspartate Amino Transf (AST/SGOT) 45 Alanine Aminotransferase (ALT/SGPT) 27 Total Bilirubin 0.6 Sodium Level 138 Potassium Level 4.6 Chloride Level 107 Carbon Dioxide Level 22.4 Anion Gap 9 Estimat Glomerular Filtration Rate 149 Date/Time Source Procedure Growth Status 08/29/17 17:23 Blood Peripheral Aerobic Blood Culture - Final NO GROWTH IN 5 DAYS Complete 08/29/17 17:23 Blood Peripheral Anaerobic Blood Culture - Final NO GROWTH IN 5 DAYS Complete 08/29/17 15:00 Fluid Pleural Fluid Fungal Smear - Final NO FUNGAL ELEMENTS SEEN. Resulted 08/29/17 15:00 Fluid Pleural Fluid Fungal Culture - Preliminary NO GROWTH IN 1 WEEK Resulted 08/15/17 02:28 Stool Stool Stool Occult Blood (MARCIA) - Final HEMOCCULT NEGATIVE Complete 08/21/17 15:20 Sputum Endotracheal Gram Stain - Final Complete 08/21/17 15:20 Sputum Endotracheal Sputum Culture - Final NO GROWTH IN 48 HOURS. Complete 08/21/17 13:45 Urine Catheterized Urine Urine Culture - Final NO GROWTH IN 48 HOURS. Complete Imaging Last Impressions Chest X-Ray 09/09/17 0600 Signed Impressions: Service Date/Time: Saturday, September 09, 2017 03:37 - CONCLUSION: Unchanged bilateral effusions and associated atelectasis/infiltrates. Matt Mckeon Jr., MD Thoracentesis 09/04/17 0000 Signed Impressions: Service Date/Time: August 15:12 - CONCLUSION: 1. Small bilateral pleural effusions with concomitant atelectatic changes. 2. Fluid collections are too small to safely drain percutaneously with CT. Shashi Moreno MD Chest Ultrasound 09/04/17 0000 Signed Impressions: Service Date/Time: August 09:23 - CONCLUSION: Right pleural effusion as above. Shashi Moreno MD Chest CT 08/29/17 0000 Signed Impressions: Service Date/Time: Tuesday, August 29, 2017 14:48 - CONCLUSION: Following thoracentesis there is decreasing amount of effusion. Significant consolidation persists. There is no pneumothorax. Juan J Joel MD FACR Abdomen/Pelvis CT 08/23/17 1426 Signed Impressions: Service Date/Time: Wednesday, August 23, 2017 22:50 - CONCLUSION: 1. Suspected mild diffuse colitis, nonspecific but presumably infectious or inflammatory. No obstruction or abscess. 2. Trace ascites about the same there is worsening anasarca and worsening pleural effusions and consolidation of both lung bases. 3. Tiny nonobstructing stone of the right kidney and a generally benign appearing cyst lower pole the left kidney. No evidence of obstructive uropathy or other etiology for acute renal failure. 4. Atherosclerotic aorta. No aneurysm. Adan Nunes MD Upper Extremity Ultrasound 08/23/17 0000 Signed Impressions: Service Date/Time: Wednesday, August 23, 2017 16:25 - CONCLUSION: Bilateral upper extremity DVT as described above. Samuel Peralta MD Lower Extremity Ultrasound 08/23/17 0000 Signed Impressions: Service Date/Time: Wednesday, August 23, 2017 15:50 - CONCLUSION: 1. There is incomplete compression of the left common femoral vein raising suspicion for nonocclusive thrombus. This vessel, however, still demonstrates normal Doppler blood flow and respiratory variability. 2. The remaining veins of the left lower extremity are patent and the entire right lower extremity is patent without thrombus. Adan Machuca MD Abdomen X-Ray 08/21/17 0600 Signed Impressions: Service Date/Time: July 03:35 - CONCLUSION: The bowel gas pattern remains fairly unremarkable. Jl Stanley MD Lumbar Puncture Fluoroscopy 08/15/17 0000 Signed Impressions: Service Date/Time: Tuesday, August 15, 2017 15:36 - CONCLUSION: 1. Uncomplicated fluoroscopically guided lumbar puncture. 2. Please note, requested opening pressures were not obtained due to technical difficulties. Shashi Moreno MD Brain MRI 08/15/17 0000 Signed Impressions: Service Date/Time: Tuesday, August 15, 2017 16:57 - CONCLUSION: 1. 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 2. Mild stenosis in the upper cervical spine as above. Esau Martell MD Abdomen Ultrasound 08/15/17 0000 Signed Impressions: Service Date/Time: Tuesday, August 15, 2017 10:40 - CONCLUSION: 1. No abnormality is identified to explain the clinical symptoms. There is no hydronephrosis. 2. The liver is normal in size and echotexture. Adan Machuca MD Head CT 08/14/172 Signed Impressions: Service Date/Time: July 22:54 - CONCLUSION: Unremarkable study. Josseline Villagomez MD Physical Exam HEENT: Normocephalic; atraumatic white patches seen in pharynx CHEST: CTA CARDIAC: irr HR ABDOMEN: Distended, soft, bowel sounds +, nontender EXTREMITIES: (+) extremity edema SKIN: Normal; no rash; no jaundice. NOCTURNIST: awake, weak (Cathleen Estrella) Assessment and Plan Plan ASSESSMENT - colitis CT suggestive colitis, poss ileitis, prominent ileocecal valve. C diff neg. stool studies neg, giardia and cryptosporidium pending. EGD and colonoscopy 2009 Dr Contreras, findings of tortuous esophagus, colon polyp, hemorrhoids. hx intermittent diarrhea and some fecal incontinence- d/w daughter at length - anemia - likely multifactorial last EGD/colon as above - isolated AST elevation - unclear significance. hx heavy ETOH use, rhabdomyolysis - leukocytosis - wbc 16.3 today, has been trending up. ID following - acute renal failure, nephrology following (08/19) --> Remains sedated and mechanically ventilated via ETT. No stool documented overnight. S/P colonoscopy yesterday --> Large sized circumferential diffuse colitis was found in the sigmoid colon and descending colon; necrotic, dusky appearing mucosa. Consistent with severe ischemia. This is consistent with ischemic colitis. Internal and external hemorrhoids. Pt evaluated by GS, not a surgical candidate. 09/09/17 GI reconsulted for painful swallowing. pt is being treated for oral thrush, white patches seen in pharynx. pt refusing any endoscopic procedure, wants NGT. already getting ensure. Recommendations: - pt refusing [id number] procedures - continue antifungals as ordered by attending - NGT ordered by attending - await nutrition consult forTF - Supportive care GI will sign off, please reconsult if needed Pt has been seen and examined by myself and Dr. Dodson and this note is written on his behalf (Cathleen Estrella) Physician Comments Agree with above assessment and plan, please notify us if needed again. (Marivel Dodson MD) Cathleen Estrella Sep 09, 2017 15:35 Marivel Dodson MD Sep 09, 2017 21:37
[2017-09-09] MEDS ORDERED: LIDOCAINE HCL 2% JELLY 5 ML SYRINGE TOPICAL ONE (16:15)
[2017-09-09] MEDS: ACETAMINOPHEN 650 MG/20.3 ML UDC NG PRN (20:17)
[2017-09-09] MEDS: diphenhydrAMINE HCL 25 MG CAP PO PRN (22:13)
[2017-09-09] MEDS: TEMAZEPAM 15 MG CAP PO PRN (22:13)
--- NOTE | 2017-09-09 23:09 | RADRPT ---
EXAM DATE/TIME: 09/09/2017 18:20 [facility] COMPARISON: No previous studies available for comparison. INDICATIONS : Confirm NG tube placement. MEDICAL HISTORY : None. SURGICAL HISTORY : None. ENCOUNTER: Initial ACUITY: 1 day PAIN SCORE: 0/10 LOCATION: Bilateral abdomen FINDINGS: There is a nasogastric Dobbhoff feeding tube with distal tip in the first portion of the duodenum. No distention seen. CONCLUSION: Dobbhoff feeding tube is in the proximal duodenum. Adan Nunes MD on September 09, 2017 at 23:07 Board Certified Radiologist. This report was verified electronically.
[2017-09-10] VITALS (16 sets, daily range): BP systolic 136–174; BP diastolic 68–102; PULSE 74–102; TEMP 97.5–100.4; O2SAT 76–95
--- NOTE | 2017-09-10 00:15 | PD.CARD.PN ---
Subjective Subjective Remarks Patient was seen earlier on 09/09, late entry No events overnight Heart rates controlled, but more elevated Objective Medications Current Medications Medications (Trade) Dose Ordered Sig/Al Route Start Time Stop Time Status Last Admin (NS Flush) 2 ml UNSCH PRN IV FLUSH 08/15/17 02:00 09/04/17 07:49 (NS Flush) 2 ml BID IV FLUSH 08/15/17 09:00 09/09/17 20:17 (Narcan Inj) 0.4 mg UNSCH PRN IV PUSH 08/15/17 02:00 Miscellaneous Information Patient in critical care unit? Ass... Q361D .XX 08/15/17 06:15 08/15/17 06:15 (Vitamin B1) 100 mg DAILY PO 08/15/17 12:00 09/09/17 08:47 (Theragran) 1 tab DAILY PO 08/15/17 12:00 09/09/17 08:47 (Folate) 1 mg DAILY PO 08/15/17 12:00 09/09/17 08:47 (Aspirin Chew) 81 mg DAILY OG-TUBE 08/15/17 19:00 09/09/17 08:47 (D50w (Vial) Inj) 50 ml UNSCH PRN IV PUSH 08/16/17 08:00 09/09/17 08:31 (Glucagon Inj) 1 mg UNSCH PRN OTHER 08/16/17 08:00 (Trandate Inj) 20 mg Q4H PRN IV PUSH 08/21/17 17:15 08/21/17 21:51 (Tylenol 650 Mg/ 20 ml Liq) 650 mg Q6H PRN NG 08/24/17 13:00 09/09/17 20:17 (Lanoxin Liq) 0.125 mg DAILY PO 08/25/17 09:00 09/09/17 08:47 (Ferrous Sulfate Liq) 300 mg BID PO 08/24/17 21:00 09/09/17 20:15 (NS Flush) DAILY IV FLUSH 08/25/17 09:00 09/09/17 15:23 (NS Flush) UNSCH PRN IV FLUSH 08/24/17 17:45 09/04/17 07:49 Miscellaneous Information D/C ICU ELECTROLYTE ORDERS... UNSCH PRN .XX 08/25/17 15:00 Miscellaneous Information ICU - CALL ORDERING PHYSIC... UNSCH PRN .XX 08/25/17 15:00 Potassium Chloride 100 ml @ 25 mls/hr UNSCH PRN IV 08/25/17 15:00 08/29/17 16:51 (K-Lyte Cl Eff) 50 meq UNSCH PRN PO 08/25/17 15:00 Potassium Chloride 100 ml @ 50 mls/hr UNSCH PRN IV 08/25/17 15:00 09/01/17 20:35 Magnesium Sulfate 4 gm/Sodium Chloride 108 ml @ 54 mls/hr UNSCH PRN IV 08/25/17 15:00 Magnesium Sulfate 2 gm/Sodium Chloride 104 ml @ 52 mls/hr UNSCH PRN IV 08/25/17 15:00 (Mag-Ox) 800 mg UNSCH PRN PO 08/25/17 15:00 Sodium Phosphate 30 mmol/Sodium Chloride 260 ml @ 43.333 mls/ hr UNSCH PRN IV 08/25/17 15:00 (K-Phos) 2,000 mg UNSCH PRN PO 08/25/17 15:00 Potassium Phosphate 30 mmol/ Sodium Chloride 260 ml @ 43.333 mls/ hr UNSCH PRN IV 08/25/17 15:00 09/02/17 08:07 (Roxicodone) 5 mg Q6H PRN PO 08/27/17 13:00 (Morphine Inj) 1 mg Q4H PRN IV 08/27/17 11:00 09/08/17 03:22 (Lovenox Inj) 100 mg Q24H SQ 08/30/17 15:00 09/09/17 15:22 (Pill Splitter) 1 ea UNSCH PRN OTHER 08/30/17 13:00 09/01/17 09:12 (Lopressor) 50 mg Q12HR PO 09/03/17 09:00 09/09/17 20:16 (Catapres) 0.2 mg Q8H PO 09/04/17 08:00 09/09/17 15:21 (Cardizem) 90 mg Q6HR PO 09/05/17 12:00 09/09/17 12:49 (NovoLOG SUPPLEMENTAL SCALE) 1 ACHS SLIDING SCALE SQ 09/06/17 17:00 (Pepcid) 20 mg BID NG 09/06/17 21:00 09/09/17 20:15 (Restoril) 30 mg HS PRN PO 09/08/17 21:00 09/09/17 22:13 (Mycelex) 10 mg 5 TIMES A DAY BUCCAL 09/08/17 18:00 09/09/17 20:17 ([place] [employer]) 2 spray Q4H PRN EACH NARE 09/08/17 14:15 09/08/17 17:48 (Diflucan) 800 mg DAILY PO 09/09/17 10:00 10/05/17 09:59 09/09/17 10:00 (Atrovent Neb) 0.5 mg Q4HR NEB PRN NEB 09/09/17 12:45 (Deltasone) 5 mg DAILY PO 09/10/17 09:00 09/15/17 08:59 Vital Signs / I&O Vital Signs Date Time Temp Pulse Resp B/P (MAP) Pulse Ox O2 Delivery O2 Flow Rate FiO2 09/09/17 18:00 87 09/09/17 16:00 98.8 83 125/66 (85) 100 09/09/17 16:00 Nasal Cannula 4.00 09/09/17 16:00 108 09/09/17 14:00 108 09/09/17 12:00 107 09/09/17 12:00 98.7 107 143/65 (91) 100 09/09/17 12:00 Nasal Cannula 4.00 09/09/17 10:00 110 09/09/17 08:00 Nasal Cannula 4.00 09/09/17 08:00 108 09/09/17 08:00 97.8 108 09/09/17 06:00 99 09/09/17 04:00 97 09/09/17 04:00 91 Nasal Cannula 4.00 09/09/17 04:00 97.7 97 144/70 (94) 77 09/09/17 02:00 101 I/O 09/09/17 09/09/17 09/09/17 09/10/17 09/10/17 09/10/17 07:00 15:00 23:00 07:00 15:00 23:00 Intake Total 250 ml Output Total 1200 ml 1450 ml Balance -1200 ml -1200 ml Intake Oral 250 ml Output Urine Total 1200 ml 1450 ml # Bowel Movements 2 2 Physical Exam GENERAL: NAD, AAOx3 SKIN: Warm and dry. HEAD: Atraumatic. Normocephalic. EYES: Pupils equal and round. No scleral icterus. No injection or drainage. ENT: No nasal bleeding or discharge. Mucous membranes pink and moist. NECK: Trachea midline. No JVD. CARDIOVASCULAR: Irregularly irregular RESPIRATORY: No accessory muscle use. Clear to auscultation. Breath sounds equal bilaterally. GASTROINTESTINAL: Abdomen soft, non-tender, nondistended. Hepatic and splenic margins not palpable. MUSCULOSKELETAL: Extremities without clubbing, cyanosis, or edema. No obvious deformities. NEUROLOGICAL: Awake and alert. No obvious cranial nerve deficits. Motor grossly within normal limits. Five out of 5 muscle strength in the arms and legs. Normal speech. PSYCHIATRIC: Appropriate mood and affect; insight and judgment normal. Laboratory Laboratory Tests Test 09/09/17 04:20 White Blood Count 8.1 TH/MM3 Red Blood Count 3.22 MIL/MM3 Hemoglobin 10.9 GM/DL Hematocrit 32.7 % Mean Corpuscular Volume 101.8 FL Mean Corpuscular Hemoglobin 33.8 PG Mean Corpuscular Hemoglobin Concent 33.2 % Red Cell Distribution Width 18.2 % Platelet Count 244 TH/MM3 Mean Platelet Volume 8.1 FL Neutrophils (%) (Auto) 86.1 % Lymphocytes (%) (Auto) 8.7 % Monocytes (%) (Auto) 4.8 % Eosinophils (%) (Auto) 0.2 % Basophils (%) (Auto) 0.2 % Neutrophils # (Auto) 6.9 TH/MM3 Lymphocytes # (Auto) 0.7 TH/MM3 Monocytes # (Auto) 0.4 TH/MM3 Eosinophils # (Auto) 0.0 TH/MM3 Basophils # (Auto) 0.0 TH/MM3 CBC Comment DIFF FINAL Differential Comment Blood Urea Nitrogen 14 MG/DL Creatinine 0.41 MG/DL Random Glucose 80 MG/DL Total Protein 6.2 GM/DL Albumin 2.4 GM/DL Calcium Level 8.0 MG/DL Phosphorus Level 3.4 MG/DL Magnesium Level 2.2 MG/DL Alkaline Phosphatase 76 U/L Aspartate Amino Transf (AST/SGOT) 45 U/L Alanine Aminotransferase (ALT/SGPT) 27 U/L Total Bilirubin 0.6 MG/DL Sodium Level 138 MEQ/L Potassium Level 4.6 MEQ/L Chloride Level 107 MEQ/L Carbon Dioxide Level 22.4 MEQ/L Anion Gap 9 MEQ/L Estimat Glomerular Filtration Rate 149 ML/MIN Imaging Last 24 hours Impressions Chest X-Ray 09/09/17 0600 Signed Impressions: Service Date/Time: Saturday, September 09, 2017 03:37 - CONCLUSION: Unchanged bilateral effusions and associated atelectasis/infiltrates. 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 (3) Weakness ICD Codes: R53.1 - Weakness (4) Pain ICD Codes: R52 - Pain, unspecified (5) Hypotension ICD Codes: I95.9 - Hypotension, unspecified (6) Altered mental status ICD Codes: R41.82 - Altered mental status, unspecified (7) UTI (urinary tract infection) ICD Codes: N39.0 - Urinary tract infection, site not specified (8) Tachycardia ICD Codes: R00.0 - Tachycardia, unspecified (9) Rhabdomyolysis ICD Codes: M62.82 - Rhabdomyolysis (10) Dyspnea ICD Codes: R06.00 - Dyspnea, unspecified (11) Anxiety ICD Codes: F41.9 - Anxiety disorder, unspecified (12) Acute renal failure ICD Codes: N17.9 - Acute kidney failure, unspecified (13) Septic shock ICD Codes: A41.9 - Sepsis, unspecified organism; R65.21 - Severe sepsis with septic shock (14) Acute respiratory failure ICD Codes: J96.00 - Acute respiratory failure, unspecified whether with hypoxia or hypercapnia (15) Alcohol abuse ICD Codes: F10.10 - Alcohol abuse, uncomplicated Assessment and Plan 1) AFib with RVR Now controlled on Digoxin, metoprolol tartrate and Cardizem If further episodes, may need to increase Digoxin For now stable, will continue to follow 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
--- NOTE | 2017-09-10 05:16 | RADRPT ---
EXAM DATE/TIME: 09/10/2017 03:43 [facility] COMPARISON: CHEST SINGLE AP, September 09, 2017, 3:37. INDICATIONS : Short of breath. MEDICAL HISTORY : Hypertension SURGICAL HISTORY : Appendectomy. Hysterectomy. Breast augmentation ENCOUNTER: Subsequent ACUITY: 1 month PAIN SCORE: 0/10 LOCATION: Bilateral chest FINDINGS: A single portable frontal view the chest shows a slight increase in the bibasilar pulmonary infiltrat es. Tiny effusions are stable. Heart is normal in size. Weighted feeding tube courses off the inferio r margin of the film. CONCLUSION: Slight worsening in bibasilar pulmonary infiltrates. Matt Mckeon Jr., MD on September 10, 2017 at 5:14 Board Certified Radiologist. This report was verified electronically.
[2017-09-10] MEDS: CLOTRIMAZOLE 10 MG TROCHE BUCCAL SCH ×5 (06:48→20:29)
[2017-09-10] MEDS: DILTIAZEM HCL 90 MG TAB PO SCH ×5 (06:48→23:45)
[2017-09-10] MEDS: cloNIDine HCL 0.2 MG TAB PO SCH ×4 (08:00→23:45)
[2017-09-10] MEDS: INSULIN ASPART SUPPLEMENTAL SCALE SQ SCH ×4 (08:00→20:30)
[2017-09-10] MEDS: SODIUM CHLORIDE 0.9% FLUSH 10 ML FLUSH IV FLUSH SCH ×4 (09:00→20:29)
[2017-09-10] MEDS ORDERED: GLYCERIN TOPICAL SCH (09:00)
[2017-09-10 09:04] LABS: AUTOMATED NEUTROPHIL # 5.1 TH/MM3 (1.8-7.7); BASOPHIL % 0.2 % (0.0-2.0); EOSINOPHIL % 0.4 % (0.0-4.0); HEMATOCRIT 28.5 % (35.0-46.0); HEMOGLOBIN 9.5 GM/DL (11.6-15.3); LYMPH % 9.4 % (9.0-44.0); LYMPHOCYTE # 0.6 TH/MM3 (1.0-4.8); MEAN CELL VOLUME 99.5 FL (80.0-100.0); MEAN CORPUSCULAR HEMOGLOBIN 33.2 PG (27.0-34.0); MEAN CORPUSCULAR HGB CONC 33.3 % (32.0-36.0); MEAN PLATELET VOLUME 7.8 FL (7.0-11.0); MONO % 6.7 % (0.0-8.0); MONOCYTE # 0.4 TH/MM3 (0-0.9); NEUT % 83.3 % (16.0-70.0); PLATELET COUNT 245 TH/MM3 (150-450); RED BLOOD COUNT 2.86 MIL/MM3 (4.00-5.30); RED CELL DISTRIBUTION WIDTH 18.7 % (11.6-17.2); WHITE BLOOD COUNT 6.1 TH/MM3 (4.0-11.0)
[2017-09-10 09:32] LABS: ALBUMIN 2.2 GM/DL (3.4-5.0); ALKALINE PHOSPHATASE 69 U/L (45-117); ALT (GPT) 25 U/L (10-53); AST (GOT) 21 U/L (15-37); BICARBONATE 25.9 MEQ/L (21.0-32.0); BLOOD UREA NITROGEN 12 MG/DL (7-18); CALCIUM 8.5 MG/DL (8.5-10.1); CHLORIDE 104 MEQ/L (98-107); CREATININE 0.33 MG/DL (0.50-1.00); GLOMERULAR FILTRATION RATE 191 ML/MIN (>89); GLUCOSE,RANDOM 78 MG/DL (74-106); MAGNESIUM 1.8 MG/DL (1.5-2.5); SODIUM (NA) 140 MEQ/L (136-145); TOTAL BILIRUBIN ADULT 0.5 MG/DL (0.2-1.0); TOTAL PROTEIN 5.9 GM/DL (6.4-8.2)
[2017-09-10] MEDS: ASPIRIN 81 MG CHEW TAB OG-TUBE SCH (09:47)
[2017-09-10] MEDS: predniSONE 5 MG TAB PO SCH (09:47)
[2017-09-10] MEDS: METOPROLOL TARTRATE 50 MG TAB PO SCH ×2 (09:47→20:30)
[2017-09-10] MEDS: THIAMINE HCL 100 MG TAB PO SCH (09:47)
[2017-09-10] MEDS: FAMOTIDINE 20 MG TAB NG SCH ×2 (09:47→20:29)
[2017-09-10] MEDS: FERROUS SULFATE 300 MG /5ML UDC PO SCH ×2 (09:48→20:29)
[2017-09-10] MEDS: DIGOXIN SOLUTION 0.125 MG/2.5 ML CUP PO SCH (09:48)
[2017-09-10] MEDS: FLUCONAZOLE 200 MG TAB PO SCH (09:48)
[2017-09-10] MEDS: MULTIVITAMIN TAB PO SCH (09:51)
[2017-09-10] MEDS: FOLIC ACID 1 MG TAB PO SCH (09:52)
[2017-09-10 10:16] LABS: BANDS 8 % (0-6); CORRECTED NUCLEATED RBC 2 /100 WBC (0-0); LYMPHOCYTES 11 % (9-44); MONOCYTES 8 % (0-8); NEUTROPHIL # MANUAL DIFF 4.9 TH/MM3 (1.8-7.7); NUCLEATED RED BLOOD CELL 2 (0-0); POLYS (SEG NEUTROPHILS) 73 % (16-70)
[2017-09-10 10:18] LABS: POLYCHROMASIA 2.1 % (0.0-1.9)
--- NOTE | 2017-09-10 11:59 | HHI.IDPN ---
Subjective Subjective Remarks Ms. Olson is an 82 year old female with past medical history of hypertension, possible sleep apnea, chronic neck pain, sciatica, alcohol abuse, arthritis, chronic rectal prolapse with bowel incontinence and anxiety. Patients daughter reports she was away for last week (normally she lives with Mom). She checked on her mom each night. The night prior to admission patient and daughter spoke to each other and no reported fever or change in behavior etc noted. No recent bounced checks, change in behavior, fires, falls or doors left unopened or such security concerns. She was found by her daughter lying in bed. On questioning patient was not found vomiting and no seizures. But patient was found in urine and feces. With this background patient presented to [facility] ER on when daughter arrived home to find patient laying on the bed covered in urine and feces. She was obtunded and 911 was called. Upon arrival to the ER: * VS - 100.2, HR 104, RR 18, BP 125/55, O2 sat 95% on room air. * WBC 10.2, hgb 13.8, hct 41.6, platelets 304, neutrophils 91.3% * BUN 52, creatinine 3.39, glucose 177, sodium 141, potassium 5.1, chloride 103 , GFR 13 * Lactic acid 6.3 * TCK 3855, CK-MB 113.6, CK-MB 2.9% * CT head - unremarkable * CXR - minimal basilar atelectasis, no effusion or pneumothorax [facility]. acute renal failure, rhabdomyolysis, lactic acidosis, possible UTI, sepsis. Overnight she developed tachycardia, hypotension and hypoxemia. She was transferred to ICU placed on pressor support. She was started on heparin drip per PE protocol. Wire Worker was consulted for hypotension, septic shock. On non -rebreather with with oxygen saturation 90% and BP 79/50. Since admission she was intubated and placed on mech vent. Infectious disease reconsult by Dr. Carrion Notes reviewed since last seen. Has been awaiting transfer to [place] pending PT/OT eval. Otherwise clinically doing better. Appetite low. Low grade temps 100.2 Cough with no sputum. Breathing better. Awake and oriented. Temps ok Feels better Swallowing better On nasal O2 4L. No change. No rash Stool liquid, Cdiff negative. No abd pain. Antibiotics Current Medications Medications (Trade) Dose Ordered Sig/Al Route Start Time Stop Time Status Last Admin (NS Flush) 2 ml UNSCH PRN IV FLUSH 08/15/17 02:00 09/04/17 07:49 (NS Flush) 2 ml BID IV FLUSH 08/15/17 09:00 09/08/17 22:56 (Narcan Inj) 0.4 mg UNSCH PRN IV PUSH 08/15/17 02:00 Miscellaneous Information Patient in critical care unit? Ass... Q361D .XX 08/15/17 06:15 08/15/17 06:15 (Vitamin B1) 100 mg DAILY PO 08/15/17 12:00 09/09/17 08:47 (Theragran) 1 tab DAILY PO 08/15/17 12:00 09/09/17 08:47 (Folate) 1 mg DAILY PO 08/15/17 12:00 09/09/17 08:47 (Aspirin Chew) 81 mg DAILY OG-TUBE 08/15/17 19:00 09/09/17 08:47 (D50w (Vial) Inj) 50 ml UNSCH PRN IV PUSH 08/16/17 08:00 09/09/17 08:31 (Glucagon Inj) 1 mg UNSCH PRN OTHER 08/16/17 08:00 (Trandate Inj) 20 mg Q4H PRN IV PUSH 08/21/17 17:15 08/21/17 21:51 (Tylenol 650 Mg/ 20 ml Liq) 650 mg Q6H PRN NG 08/24/17 13:00 (Lanoxin Liq) 0.125 mg DAILY PO 08/25/17 09:00 09/09/17 08:47 (Ferrous Sulfate Liq) 300 mg BID PO 08/24/17 21:00 09/09/17 08:47 (NS Flush) DAILY IV FLUSH 08/25/17 09:00 09/07/17 08:39 (NS Flush) UNSCH PRN IV FLUSH 08/24/17 17:45 09/04/17 07:49 Miscellaneous Information D/C ICU ELECTROLYTE ORDERS... UNSCH PRN .XX 08/25/17 15:00 Miscellaneous Information ICU - CALL ORDERING PHYSIC... UNSCH PRN .XX 08/25/17 15:00 Potassium Chloride 100 ml @ 25 mls/hr UNSCH PRN IV 08/25/17 15:00 08/29/17 16:51 (K-Lyte Cl Eff) 50 meq UNSCH PRN PO 08/25/17 15:00 Potassium Chloride 100 ml @ 50 mls/hr UNSCH PRN IV 08/25/17 15:00 09/01/17 20:35 Magnesium Sulfate 4 gm/Sodium Chloride 108 ml @ 54 mls/hr UNSCH PRN IV 08/25/17 15:00 Magnesium Sulfate 2 gm/Sodium Chloride 104 ml @ 52 mls/hr UNSCH PRN IV 08/25/17 15:00 (Mag-Ox) 800 mg UNSCH PRN PO 08/25/17 15:00 Sodium Phosphate 30 mmol/Sodium Chloride 260 ml @ 43.333 mls/ hr UNSCH PRN IV 08/25/17 15:00 (K-Phos) 2,000 mg UNSCH PRN PO 08/25/17 15:00 Potassium Phosphate 30 mmol/ Sodium Chloride 260 ml @ 43.333 mls/ hr UNSCH PRN IV 08/25/17 15:00 09/02/17 08:07 (Roxicodone) 5 mg Q6H PRN PO 08/27/17 13:00 (Morphine Inj) 1 mg Q4H PRN IV 08/27/17 11:00 09/08/17 03:22 Fluconazole/ Sodium Chloride 200 ml @ 100 mls/hr Q24H IV 08/28/17 08:00 09/09/17 08:00 Fluconazole/ Sodium Chloride 200 ml @ 100 mls/hr Q24H IV 08/28/17 10:00 09/08/17 10:49 (Benadryl) 25 mg Q4H PRN PO 08/29/17 11:30 09/07/17 23:14 (Lovenox Inj) 100 mg Q24H SQ 08/30/17 15:00 09/08/17 18:03 (Pill Splitter) 1 ea UNSCH PRN OTHER 08/30/17 13:00 09/01/17 09:12 (Lopressor) 50 mg Q12HR PO 09/03/17 09:00 09/09/17 08:47 (Catapres) 0.2 mg Q8H PO 09/04/17 08:00 09/09/17 08:47 (Magic Mouthwash Adult Liq) 5 ml ACHS SWISH-SWAL 09/05/17 12:00 09/08/17 21:00 (Cardizem) 90 mg Q6HR PO 09/05/17 12:00 09/09/17 00:00 (Duoneb Neb) 1 ampule Q6HR NEB NEB 09/06/17 16:00 09/08/17 21:24 (Deltasone) 10 mg DAILY PO 09/07/17 09:00 09/09/17 08:47 (NovoLOG SUPPLEMENTAL SCALE) 1 ACHS SLIDING SCALE SQ 09/06/17 17:00 (Pepcid) 20 mg BID NG 09/06/17 21:00 09/09/17 08:47 (Albuterol Neb) 2.5 mg Q2HR NEB PRN NEB 09/07/17 17:45 (Restoril) 30 mg HS PRN PO 09/08/17 21:00 09/08/17 22:54 (Mycelex) 10 mg 5 TIMES A DAY BUCCAL 09/08/17 18:00 09/09/17 06:00 ([place]) 2 spray Q4H PRN EACH NARE 09/08/17 14:15 09/08/17 17:48 Lines PIV Line sites with no e.o infections. Past Medical History reviewed Allergies: Coded Allergies: No Known Allergies (Verified Allergy, Unknown, 08/15/17) Objective . Vital Signs Date Time Temp Pulse Resp B/P (MAP) Pulse Ox O2 Delivery O2 Flow Rate FiO2 09/10/17 11:05 95 09/10/17 08:00 100.4 78 174/102 (126) 92 09/10/17 08:00 92 Nasal Cannula 4.00 09/10/17 08:00 78 09/10/17 06:00 93 09/10/17 04:00 97.7 77 145/70 (95) 77 09/10/17 04:00 94 Nasal Cannula 4.00 09/10/17 04:00 79 09/10/17 02:00 74 09/10/17 00:00 97.5 102 139/70 (93) 78 09/10/17 00:00 102 09/10/17 00:00 93 Nasal Cannula 4.00 3/13/18 22:00 88 09/09/17 20:00 94 Nasal Cannula 4.00 09/09/17 20:00 90 09/09/17 20:00 100.1 90 133/70 (91) 83 09/09/17 20:00 94 Nasal Cannula 4.00 09/09/17 18:00 87 09/09/17 16:00 98.8 83 125/66 (85) 100 09/09/17 16:00 Nasal Cannula 4.00 09/09/17 16:00 108 09/09/17 14:00 108 09/09/17 12:00 107 09/09/17 12:00 98.7 107 143/65 (91) 100 09/09/17 12:00 Nasal Cannula 4.00 . Laboratory Tests Test 09/08/17 12:13 09/09/17 04:20 09/10/17 06:30 White Blood Count 11.6 TH/MM3 8.1 TH/MM3 6.1 TH/MM3 Red Blood Count 2.71 MIL/MM3 3.22 MIL/MM3 2.86 MIL/MM3 Hemoglobin 8.9 GM/DL 10.9 GM/DL 9.5 GM/DL Hematocrit 26.9 % 32.7 % 28.5 % Mean Corpuscular Volume 99.2 FL 101.8 FL 99.5 FL Mean Corpuscular Hemoglobin 32.7 PG 33.8 PG 33.2 PG Mean Corpuscular Hemoglobin Concent 33.0 % 33.2 % 33.3 % Red Cell Distribution Width 16.5 % 18.2 % 18.7 % Platelet Count 294 TH/MM3 244 TH/MM3 245 TH/MM3 Mean Platelet Volume 7.9 FL 8.1 FL 7.8 FL Neutrophils (%) (Auto) 88.1 % 86.1 % 83.3 % Lymphocytes (%) (Auto) 5.1 % 8.7 % 9.4 % Monocytes (%) (Auto) 6.5 % 4.8 % 6.7 % Eosinophils (%) (Auto) 0.1 % 0.2 % 0.4 % Basophils (%) (Auto) 0.2 % 0.2 % 0.2 % Neutrophils # (Auto) 10.3 TH/MM3 6.9 TH/MM3 5.1 TH/MM3 Lymphocytes # (Auto) 0.6 TH/MM3 0.7 TH/MM3 0.6 TH/MM3 Monocytes # (Auto) 0.8 TH/MM3 0.4 TH/MM3 0.4 TH/MM3 Eosinophils # (Auto) 0.0 TH/MM3 0.0 TH/MM3 0.0 TH/MM3 Basophils # (Auto) 0.0 TH/MM3 0.0 TH/MM3 0.0 TH/MM3 CBC Comment AUTO DIFF DIFF FINAL AUTO DIFF Differential Total Cells Counted 100 100 Neutrophils % (Manual) 71 % 73 % Band Neutrophils % 7 % 8 % Lymphocytes % 7 % 11 % Monocytes % 14 % 8 % Neutrophils # (Manual) 9.2 TH/MM3 4.9 TH/MM3 Metamyelocytes 1 % Nucleated Red Blood Cells 3 /100 WBC 2 /100 WBC Differential Comment FINAL DIFF MANUAL FINAL DIFF MANUAL Platelet Estimate NORMAL NORMAL Platelet Morphology Comment NORMAL NORMAL Polychromasia 2.0 % 2.1 % Basophilic Stippling FAINT Laboratory Tests Test 09/08/17 12:13 09/09/17 04:20 09/10/17 06:30 Blood Urea Nitrogen 18 MG/DL 14 MG/DL 12 MG/DL Creatinine 0.43 MG/DL 0.41 MG/DL 0.33 MG/DL Random Glucose 87 MG/DL 80 MG/DL 78 MG/DL Total Protein 5.5 GM/DL 6.2 GM/DL 5.9 GM/DL Albumin 2.3 GM/DL 2.4 GM/DL 2.2 GM/DL Calcium Level 8.4 MG/DL 8.0 MG/DL 8.5 MG/DL Phosphorus Level 3.7 MG/DL 3.4 MG/DL 3.0 MG/DL Magnesium Level 1.9 MG/DL 2.2 MG/DL 1.8 MG/DL Alkaline Phosphatase 72 U/L 76 U/L 69 U/L Aspartate Amino Transf (AST/SGOT) 15 U/L 45 U/L 21 U/L Alanine Aminotransferase (ALT/SGPT) 24 U/L 27 U/L 25 U/L Total Bilirubin 0.5 MG/DL 0.6 MG/DL 0.5 MG/DL Sodium Level 140 MEQ/L 138 MEQ/L 140 MEQ/L Potassium Level 4.3 MEQ/L 4.6 MEQ/L 3.6 MEQ/L Chloride Level 107 MEQ/L 107 MEQ/L 104 MEQ/L Carbon Dioxide Level 23.7 MEQ/L 22.4 MEQ/L 25.9 MEQ/L Anion Gap 9 MEQ/L 9 MEQ/L 10 MEQ/L Estimat Glomerular Filtration Rate 141 ML/MIN 149 ML/MIN 191 ML/MIN Imaging Last Impressions Abdomen X-Ray 08/21/17 0600 Signed Impressions: Service Date/Time: July 03:35 - CONCLUSION: The bowel gas pattern remains fairly unremarkable. Jl Stanley MD Chest X-Ray 08/21/17 0000 Signed Impressions: Service Date/Time: July 19:39 - CONCLUSION: 1. Stable tubes and lines, as above. 2. Worsening bilateral lower lung zone pleural parenchymal disease. Douglas Jean MD Lumbar Puncture Fluoroscopy 08/15/17 0000 Signed Impressions: Service Date/Time: Tuesday, August 15, 2017 15:36 - CONCLUSION: 1. Uncomplicated fluoroscopically guided lumbar puncture. 2. Please note, requested opening pressures were not obtained due to technical difficulties. Shashi Moreno MD Brain MRI 08/15/17 0000 Signed Impressions: Service Date/Time: Tuesday, August 15, 2017 16:57 - CONCLUSION: 1. 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 2. Mild stenosis in the upper cervical spine as above. Esau Martell MD Abdomen/Pelvis CT 08/15/17 0000 Signed Impressions: Service Date/Time: Wednesday, August 16, 2017 00:25 - CONCLUSION: 1. Abnormal thickening of the descending colonic wall and the possibility of colitis should be entertained. There is also thickening of distal ileal wall which may be inflammatory as well. 2. There is mild anasarca with edema or inflammatory changes within the bilateral paracolic gutters extending down into the pelvis. 3. Small bilateral pleural effusions and bibasilar atelectasis and/or infiltrate. 4. Prominent ileocecal valve and possibility of lipoma at this site is not excluded. Josseline Villagomez MD Abdomen Ultrasound 08/15/17 0000 Signed Impressions: Service Date/Time: Tuesday, August 15, 2017 10:40 - CONCLUSION: 1. No abnormality is identified to explain the clinical symptoms. There is no hydronephrosis. 2. The liver is normal in size and echotexture. Adan Machuca MD Head CT 08/14/17 2232 Signed Impressions: Service Date/Time: July 22:54 - CONCLUSION: Unremarkable study. Josseline Villagomez MD Physical Exam GENERAL: Awake, following commands. NAD On nasal O2 SKIN: No rashes, ecchymoses or lesions. Warm and dry. HEAD: Atraumatic. Normocephalic. No temporal or scalp tenderness. EYES: Pupils equal round and reactive. Extraocular motions intact. No scleral icterus. No injection or drainage. Has mild scleral edema ENT: Moist oral mucosa, no nasal drainage NECK: Trachea midline. Supple, nontender, CARDIOVASCULAR: + murmur, no gallops, rub RESPIRATORY: Decreased BS at bases GASTROINTESTINAL: Abdomen soft, not distended, not tender, hypoactive bowels sounds, no guarding or rebound. MUSCULOSKELETAL: Extremities without clubbing. No calf tenderness. Negative Homans sign bilaterally. NEUROLOGICAL: Non focal Psych: Cooperative IV line sites with no e.o infection. Assessment & Plan Remarks Assessment and Plan Fungemia in setting of bilateral UE DVT will treat as Septic thrombophlebitis. C.Parapsilosis fungal septic thrombophlebitis. Sepsis. HCAP with effusions. Staph epidermidis: likely pseudobacteremia/contaminant. Specimen from old line, already removed. Acute resp failure on vent Acute metabolic encephalopathy: appears resolving. Alcohol abuse: at risk for withdrawal. Acute rhabdomyolysis: ? seizures. Acute renal failure: sepsis, prerenal, rhabdomyolysis. Colitis clinically and radiologically ; likely ischemic - C diff negative Recs: For low grade fevers monitor clinically if temps more than 100.8 F please draw set of blood cultures and send sputum if any for culture, UA. 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 (STOP DATE: 10/05/2017) C.parapsilosis susceptibilities and Diflucan S. Monitor LFTs and Qt interval while on Diflucan as on high dose. Monitor weekly labs: CBC with diff, CMP. Weekly EKG if QT prolonged reassess need for other agents causing QT prolongation and reconsult ID for alternative antifungal agents. WATCH FOR DRUG INTERACTIONS as pt on high dose diflucan. No need for FERNANDO chuck given fragile resp status. 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 juana RN and Dw Piedad Vivas MD Sep 10, 2017 11:59
--- NOTE | 2017-09-10 14:48 | HHI.CCPN ---
Subjective Remarks/Hospital Course Patient is an 82-year-old female with past medical history of irritable bowel syndrome, hypertension, arthritis, diverticulitis who presented to the [facility] ED after she was found lying on her bed with urine and feces all around her bed. In addition, the patient was altered and obtunded. Most of the history was obtained from reviewing the medical records. Her laboratory data showed acute renal failure with BUN of 52, creatinine 3.39 and lactic acidosis with a lactic acid level of 6.3. In addition, the patient was in rhabdomyolysis with elevated CK at 3855. She was admitted under the hospitalist service; however, a [facility] was called due to worsening mental status, hypertension and hypoxemia. She was transferred to [facility] and critical care medicine was consulted for critical care management. When seen, the patient was lethargic, not following any commands, hypotensive. She was subsequently intubated by myself and a right internal jugular central line was placed for hemodynamic monitoring. ABG post intubation showed a pH of 7.31, co2 of 30, pA02 of 117, bicarbonate 15 and saturation of 96% on PRVC rate of 14, tidal volume 350 with IT:1, PEEP 5 and FIO2 of 100%. She was given two liter boluses of normal saline and placed on a bicarbonate drip. Her lactic acid level is trending down and is currently 3.4 from 6.3 on arrival. In addition, her renal function is improving with IV hydration. Her creatinine level is 2.29 from 3.39. Due to hypotension, Levophed was started. A CT scan of the brain in the emergency department was unremarkable. Her initial chest x-ray showed minimal basilar atelectasis, no effusions or pneumothoraces. According to the patient's family, the patient has been intermittently binge drinking. In addition, they report her having diarrhea for a few days. She had a low-grade fever with a temperature of 100.2 last night. 08/16 Patient is sedated with Fentanyl drip intubated and on Levophed 5 mics. On Bicarb drip. MRI brain yesterday showed small lacunar infarcts in left cerebellar hemisphere and right parietal lobe. Lp showed clear CSF, 17 wbc. Afebrile.Renal function worse today with Cr: 2.64 from 2.29 08/17 Patient remains sedated and intubated. On Bicarb drip. Off Levophed renal function slightly worse today with Cr: 2.82 from 2.64 and UOP: 550 ml in 24 hrs 08/18 Patient bit through ETT overnight s/p new ETT placement using tube exchanger. Sedated with Diprivan and Fentanyl. Afebrile. Renal function is improving with Cr: 1.97 from 2.82. On Bicarb drip. Tube feeds held for possible colonoscopy today. 08/19: Remains sedated, orally intubated on mechanical ventilation. Colonoscopy done yesterday revealed ischemic colitis. Has been evaluated by general surgery. Patient went into A. fib with RVR last night and was started on a Cardizem drip. On Levophed for hypotension 08/20: Remains sedated, orally intubated on mechanical ventilation. Started on TPN on 08/19. Cardizem drip turned off this morning. Received 1 dose of digoxin yesterday. 08/21: Remains sedated, orally intubated on mechanical ventilation. On TPN. Ordered Precedex as well as digoxin daily. Starting trophic feeds today. 08/22 Patient remains intubated on Precedex and Fentanyl infusion for sedation. afebrile. 08/23 WBC up to 17.7. Temp max 102.2. Blood culture sent today peripherally ( labelled as line draw initially but was not drawn from a line, lab notified to re-label). Tolerating trophic feeds. Awake and on CPAP 10/5 with RSBI 50s, became labored and desat with 5/5. Denies abdominal pain. 08/24: Tmax 102.7 overnight. Currently 100.6. Noted yeast growing from blood culture 08/21. Remains in atrial fibrillation. Potassium currently been replaced. Currently only has once peripheral IV access. Will need central line placed later this afternoon. 08/25 Patient is awake and alert on CPAP trials. T: 101.1 last night. On Heparin and Bumex drips 08/26 Patient was extubated yesterday on 3L oxygen. She went into Afib with RVR last night given Labetalol. Afebrile. 08/27: Patient is slightly tachypneic, but maintaining O2 sat. chest x-ray shows at least moderate sized pleural effusions. Start Lasix 40 mg IV every 12 [address] Doe catheter for accurate intake output and also appears that patient has urinary retention. Remains in atrial fibrillation with RVR, on Cardizem at 15 mg per hour. 08/28: On BiPAP overnight. Currently on 4 L nasal cannula. Fluctuating neurologic status consistent with delirium. Remains on Cardizem drip at 5 mg per hour for A. fib with RVR. Diuresing well with Lasix. 08/29: Respiratory status borderline with tachypnea. Requiring intermittent BiPAP. Started on Precedex for anxiety. Dropped blood pressure. 1 unit PRBCs ordered. Solu-Medrol 125 mg IV 1 dose ordered as well. Scheduled for CT- guided thoracentesis for right side today. Heparin GTT held for thoracentesis. Chest x-ray with bilateral pleural effusions despite diuresis. 08/30: Seems to be breathing a little better. Was on BiPAP overnight. Currently on nasal cannula. Knows she is at the hospital and follows commands appropriately. Underwent bilateral thoracentesis yesterday with drainage of 500 cc from right side and 300 cc from left. On Precedex which appears to be working well for anxiety. 08/31: Remains on nasal cannula. Did not use BiPAP at night. Awake and alert. Following commands appropriately. By mouth intake remains borderline. On Precedex 0.2 mics per KG per hour. 09/01 Patient is on 3L oxygen with good sats, hypertensive Remains on Precedex 0.2 mics per KG per hour 09/02 No events overnight. Off Precedex drip. Afebrile. On 3L oxygen. 09/03 Patient is awake, alert remains on 3L oxygen, Afebrile. Requesting something to help her sleep. 09/04 Patient is on 3L oxygen. Afebrile. 09/05 Patient is lying in bed in NAD. Thoracentesis couldn't be done by IR as pleural effusion is too small per CT images. Afebrile. 09/06 On 3 L nasal cannula. Has a lunch tray and is feeding herself with nurse encouragement. Afebrile. Afib rate controlled 70s to 80s. Patient complains of inability to sleep at night. Stool C diff ordered today per ID due to increased stool frequency. 09/07: Resting in bed in no acute distress on 3 L nasal cannula. 09/08: Resting in bed in no acute distress. Currently on 4 L nasal cannula. Requesting antidiarrheal medication for diarrhea. 09/09: Afebrile. Currently on 4 L nasal cannula. Feels weaker today. Painful with difficulty swallowing. Blood sugars 24 this a.m.. Requesting feeding tube to get stronger. Subjective: 09/10: T-max 100.4. 3 problems overnight. Complaining of xerostomia and odynophagia. Refusing EGD. Biotene initiated per family. Worsening cough noted. Objective Vital Signs Date Time Temp Pulse Resp B/P (MAP) Pulse Ox O2 Delivery O2 Flow Rate FiO2 09/10/17 11:05 95 09/10/17 08:00 100.4 174/102 (126) 92 09/10/17 08:00 Nasal Cannula 4.00 09/08/17 20:00 20 Intake and Output 09/10/17 09/10/17 09/11/17 08:00 16:00 00:00 Intake Total 287 ml Output Total 1500 ml Balance -1213 ml Result Diagram: 09/10/17 0630 09/10/17 0630 Other Results Microbiology Date/Time Source Procedure Growth Status 08/29/17 17:23 Blood Peripheral Aerobic Blood Culture - Final NO GROWTH IN 5 DAYS Complete 08/29/17 17:23 Blood Peripheral Anaerobic Blood Culture - Final NO GROWTH IN 5 DAYS Complete 08/29/17 15:00 Fluid Pleural Fluid Fungal Smear - Final NO FUNGAL ELEMENTS SEEN. Resulted 08/29/17 15:00 Fluid Pleural Fluid Fungal Culture - Preliminary NO GROWTH IN 1 WEEK Resulted 08/15/17 02:28 Stool Stool Stool Occult Blood (MARCIA) - Final HEMOCCULT NEGATIVE Complete 08/21/17 15:20 Sputum Endotracheal Gram Stain - Final Complete 08/21/17 15:20 Sputum Endotracheal Sputum Culture - Final NO GROWTH IN 48 HOURS. Complete 08/21/17 13:45 Urine Catheterized Urine Urine Culture - Final NO GROWTH IN 48 HOURS. Complete Imaging Last Impressions Chest X-Ray 09/10/17 0600 Signed Impressions: Service Date/Time: Sunday, September 10, 2017 03:43 - CONCLUSION: Slight worsening in bibasilar pulmonary infiltrates. Matt Mckeon Jr., MD Abdomen X-Ray 09/09/17 0000 Signed Impressions: Service Date/Time: Saturday, September 09, 2017 18:20 - CONCLUSION: Dobbhoff feeding tube is in the proximal duodenum. Adan Nunes MD Thoracentesis 09/04/17 0000 Signed Impressions: Service Date/Time: August 15:12 - CONCLUSION: 1. Small bilateral pleural effusions with concomitant atelectatic changes. 2. Fluid collections are too small to safely drain percutaneously with CT. Shashi Moreno MD Chest Ultrasound 09/04/17 0000 Signed Impressions: Service Date/Time: August 09:23 - CONCLUSION: Right pleural effusion as above. Shashi Moreno MD Chest CT 08/29/17 0000 Signed Impressions: Service Date/Time: Tuesday, August 29, 2017 14:48 - CONCLUSION: Following thoracentesis there is decreasing amount of effusion. Significant consolidation persists. There is no pneumothorax. Juan J Joel MD FACR Abdomen/Pelvis CT 08/23/17 1426 Signed Impressions: Service Date/Time: Wednesday, August 23, 2017 22:50 - CONCLUSION: 1. Suspected mild diffuse colitis, nonspecific but presumably infectious or inflammatory. No obstruction or abscess. 2. Trace ascites about the same there is worsening anasarca and worsening pleural effusions and consolidation of both lung bases. 3. Tiny nonobstructing stone of the right kidney and a generally benign appearing cyst lower pole the left kidney. No evidence of obstructive uropathy or other etiology for acute renal failure. 4. Atherosclerotic aorta. No aneurysm. Adan Nunes MD Upper Extremity Ultrasound 08/23/17 0000 Signed Impressions: Service Date/Time: Wednesday, August 23, 2017 16:25 - CONCLUSION: Bilateral upper extremity DVT as described above. Samuel Peralta MD Lower Extremity Ultrasound 08/23/17 0000 Signed Impressions: Service Date/Time: Wednesday, August 23, 2017 15:50 - CONCLUSION: 1. There is incomplete compression of the left common femoral vein raising suspicion for nonocclusive thrombus. This vessel, however, still demonstrates normal Doppler blood flow and respiratory variability. 2. The remaining veins of the left lower extremity are patent and the entire right lower extremity is patent without thrombus. Adan Machuca MD Lumbar Puncture Fluoroscopy 08/15/17 0000 Signed Impressions: Service Date/Time: Tuesday, August 15, 2017 15:36 - CONCLUSION: 1. Uncomplicated fluoroscopically guided lumbar puncture. 2. Please note, requested opening pressures were not obtained due to technical difficulties. Shashi Moreno MD Brain MRI 08/15/17 0000 Signed Impressions: Service Date/Time: Tuesday, August 15, 2017 16:57 - CONCLUSION: 1. 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 2. Mild stenosis in the upper cervical spine as above. Esau Martell MD Abdomen Ultrasound 08/15/17 0000 Signed Impressions: Service Date/Time: Tuesday, August 15, 2017 10:40 - CONCLUSION: 1. No abnormality is identified to explain the clinical symptoms. There is no hydronephrosis. 2. The liver is normal in size and echotexture. Adan Machuca MD Head CT 08/14/172231 Signed Impressions: Service Date/Time: July 22:54 - CONCLUSION: Unremarkable study. Josseline Villagomez MD Objective Remarks GENERAL: 82-year-old female currently resting in bed on nasal cannula in no acute distress SKIN: Warm and dry. HEAD: Normocephalic. EYES: R pupil 3 mm reactive, L pupil 4 mm reactive. No scleral icterus. No injection or drainage. NECK: Supple, trachea midline. No JVD or lymphadenopathy. CARDIOVASCULAR: IRR. S1, S2 no S4. Without murmur RESPIRATORY: Diminished breath sounds in the bases bilaterally. No wheezing, rales or rhonchi appreciated. GASTROINTESTINAL: Abdomen soft, non-tender, nondistended. Bowel sounds hypoactive but present. No guarding or rigidity MUSCULOSKELETAL: Trace edema, more prominent LUE. NEURO: Awake alert oriented 3, conversant. 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 every 6 hours as needed fever Oxycodone 5 mg every 4 hours as needed pain 6 or 10, morphine sulfate 1 mg IV every 4 hours as needed anxiety/prn breakthrough. 08/15: CT brain negative for acute intracranial process MRI brain: Small lacunar infarcts in left cerebellar hemisphere and right parietal lobe EEG: Severe encephalopathy Repeat EEG 08/21.- generalized slowing, no epileptiform features Continue thiamine, multivitamin and folic acid daily. Neuro is following- Dr. Danielle LP showed clear CSF, 17 WBC, TP:45.2 Generally weak - PT and OT following. PT recommending acute rehab Continue aspirin 81 mg daily with enoxaparin 100 mg IV twice daily Temazepam 30 mg at night for insomnia Pulm: Acute respiratory failure, resolved Bilateral pleural effusions -resolved Continue with oxygen keep sat >92% currently on 4 L Albuterol/ipratropium aerosols every 6 hours with albuterol aerosols every 2 hours as needed dyspnea Incentive spirometry Q1 hr while awake. Acapella q6 hours with Duoneb CXR 09/04: bibasilar effusions with common atelectatic changes, Status post bilateral CT-guided thoracentesis by IR on 08/29 with drainage of 500 cc of pleural fluid on right and 300 cc from left(transudative fluid) Thoracentesis wasn't done by IR on 09/04 as pleural effusion is too small per CT images. Currently on prednisone 10 mg p.o. daily. 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 On metoprolol tartrate 50mg Q12,, diltiazem 90 mg every 6 hours and digoxin 0.125 mg daily. Digoxin level 1.2 on 09/08 Clonidine0.2mg Q8 for blood pressure Repeat Echo showed EF 45-50%, Lateral leaflet mitral valve with a 2 mm mobile density, consistent with ? endocarditis Cardiology following, Dr. Myers. 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 Myers who will defer FERNANDO for now unless recurrent blood culture positivity. Continue aspirin 81 mg by mouth daily/home medication Renal/FEN/: Acute kidney injury, resolved Lactic acidemia, resolved Rhabdomyolysis resolved Right-sided nephrolithiasis/nonobstructing Left renal cyst Monitor renal function, intake and output and avoid nephrotoxins. Renal has followed-Dr. Figueroa, abdomen: No hydronephrosis CT Abd/pelvis revealed nonobstructing right-sided nephrolithiasis and left renal cyst. Continue straight cath. As needed. GI: Ischemic colitis, resolved Severe acute on Chronic protein energy malnutrition AST elevation secondary to alcohol use Internal and external hemorrhoids Regular diet, no consistency restrictions per speech. Ensure with each meal. Will be continued along with tube feeding see below Placing NG tube 09/09 with dietary consultation for tube feed recommendations. Currently on Glucerna 1.5 at 20 cc an hour F/u stool C diff ordered 09/05 per ID negative On famotidine 20 mg twice a day for GI prophylaxis. US liver: No abnormalities identified GI has followed- colonoscopy showed diffuse colitis in the sigmoid colon and descending colon; Necrotic, dusky appearing mucosa. Consistent with severe ischemic colitis. General surgery, Dr. Guadalupe -plan to treat conservatively unless patient worsens clinically. Repeat CT abdomen and pelvis 08/23 mild diffuse colitis Reconsult GI for odynophagia. Patient refused EGD ID: Septic shock resolved UTI Ischemic colitis Fungemia - Felipa parapsilosis Abx per ID -Continue fluconazole 800 mg IV daily , Monitor for signs of infections ( Fever, WBC). Seen by Opth no evidence of endophthalmitis Pertinent cultures 08/29 pleural fluid culture NGTD. 08/26 and 08/29 blood cultures Negative 08/23 - blood culture by line (actually peripheral) - Staph hominus 08/21 - blood culture - no growth 08/21 - sputum - no growth 08/21 - - no growth 08/21 - blood culture - Felipa parapsilosis 08/15 - CSF - negative 08/15 - sputum - no growth 08/14 - blood cultures 2 and UA - no growth C-diff PCR is negative, stool studies negative s/p LP showed clear CSF, 17 WBC, TP:45.2, HSV DNA PCR neg Endo: Hyperglycemia of critical illness/steroid Monitor glucose ac/hs and use low dose sliding scale with NovoLog TSH: 1.15. Heme: Leukocytosis Normocytic anemia B/L UE DVT Possible left common femoral vein DVT Left cephalic/basilic superficial and right superficial cephalic thrombus Monitor CBC, coags- heparin drip stopped on 08/30 and started on Enoxaparin 100 mg subcutaneously daily for full anticoagulation. Iron sulfate 300 mg twice a day. 1 unit PRBCs ordered to be transfused on 08/29 GI prophylaxis with famotidine and DVT prophylaxis with SCDs, Enoxaparin 100mg subcut daily Lines: Peripheral IV's Level 2 followup. Madhu Carrion MD Sep 10, 2017 14:48
[2017-09-10] MEDS ORDERED: POTASSIUM CHLORIDE 10 MEQ CONTROLLED RELEASE TAB PO ONE (15:00)
[2017-09-10] MEDS: RESP: IPRATROPIUM 0.5 MG/2.5 ML NEB NEB SCH ×2 (16:00→18:45)
--- NOTE | 2017-09-10 16:11 | PD.CARD.PN ---
Subjective Subjective Remarks No events overnight Heart rates controlled, better today Objective Medications Current Medications Medications (Trade) Dose Ordered Sig/Al Route Start Time Stop Time Status Last Admin (NS Flush) 2 ml UNSCH PRN IV FLUSH 08/15/17 02:00 09/04/17 07:49 (NS Flush) 2 ml BID IV FLUSH 08/15/17 09:00 09/10/17 09:47 (Narcan Inj) 0.4 mg UNSCH PRN IV PUSH 08/15/17 02:00 Miscellaneous Information Patient in critical care unit? Ass... Q361D .XX 08/15/17 06:15 08/15/17 06:15 (Vitamin B1) 100 mg DAILY PO 08/15/17 12:00 09/10/17 09:47 (Theragran) 1 tab DAILY PO 08/15/17 12:00 09/10/17 09:51 (Folate) 1 mg DAILY PO 08/15/17 12:00 09/10/17 09:52 (Aspirin Chew) 81 mg DAILY OG-TUBE 08/15/17 19:00 09/10/17 09:47 (D50w (Vial) Inj) 50 ml UNSCH PRN IV PUSH 08/16/17 08:00 09/09/17 08:31 (Glucagon Inj) 1 mg UNSCH PRN OTHER 08/16/17 08:00 (Trandate Inj) 20 mg Q4H PRN IV PUSH 08/21/17 17:15 08/21/17 21:51 (Tylenol 650 Mg/ 20 ml Liq) 650 mg Q6H PRN NG 08/24/17 13:00 09/09/17 20:17 (Lanoxin Liq) 0.125 mg DAILY PO 08/25/17 09:00 09/10/17 09:48 (Ferrous Sulfate Liq) 300 mg BID PO 08/24/17 21:00 09/10/17 09:48 (NS Flush) DAILY IV FLUSH 08/25/17 09:00 09/10/17 09:47 (NS Flush) UNSCH PRN IV FLUSH 08/24/17 17:45 09/04/17 07:49 Miscellaneous Information D/C ICU ELECTROLYTE ORDERS... UNSCH PRN .XX 08/25/17 15:00 Miscellaneous Information ICU - CALL ORDERING PHYSIC... UNSCH PRN .XX 08/25/17 15:00 Potassium Chloride 100 ml @ 25 mls/hr UNSCH PRN IV 08/25/17 15:00 08/29/17 16:51 (K-Lyte Cl Eff) 50 meq UNSCH PRN PO 08/25/17 15:00 Potassium Chloride 100 ml @ 50 mls/hr UNSCH PRN IV 08/25/17 15:00 09/01/17 20:35 Magnesium Sulfate 4 gm/Sodium Chloride 108 ml @ 54 mls/hr UNSCH PRN IV 08/25/17 15:00 Magnesium Sulfate 2 gm/Sodium Chloride 104 ml @ 52 mls/hr UNSCH PRN IV 08/25/17 15:00 (Mag-Ox) 800 mg UNSCH PRN PO 08/25/17 15:00 Sodium Phosphate 30 mmol/Sodium Chloride 260 ml @ 43.333 mls/ hr UNSCH PRN IV 08/25/17 15:00 (K-Phos) 2,000 mg UNSCH PRN PO 08/25/17 15:00 Potassium Phosphate 30 mmol/ Sodium Chloride 260 ml @ 43.333 mls/ hr UNSCH PRN IV 08/25/17 15:00 09/02/17 08:07 (Roxicodone) 5 mg Q6H PRN PO 08/27/17 13:00 (Morphine Inj) 1 mg Q4H PRN IV 08/27/17 11:00 09/08/17 03:22 (Lovenox Inj) 100 mg Q24H SQ 08/30/17 15:00 09/09/17 15:22 (Pill Splitter) 1 ea UNSCH PRN OTHER 08/30/17 13:00 09/01/17 09:12 (Lopressor) 50 mg Q12HR PO 09/03/17 09:00 09/10/17 09:47 (Catapres) 0.2 mg Q8H PO 09/04/17 08:00 09/10/17 00:00 (Cardizem) 90 mg Q6HR PO 09/05/17 12:00 09/10/17 12:05 (NovoLOG SUPPLEMENTAL SCALE) 1 ACHS SLIDING SCALE SQ 09/06/17 17:00 (Pepcid) 20 mg BID NG 09/06/17 21:00 09/10/17 09:47 (Restoril) 30 mg HS PRN PO 09/08/17 21:00 09/09/17 22:13 (Mycelex) 10 mg 5 TIMES A DAY BUCCAL 09/08/17 18:00 09/10/17 09:51 ([place] Marquez Moro) 2 spray Q4H PRN EACH NARE 09/08/17 14:15 09/08/17 17:48 (Diflucan) 800 mg DAILY PO 09/09/17 10:00 10/05/17 09:59 09/10/17 09:48 (Atrovent Neb) 0.5 mg Q4HR NEB PRN NEB 09/09/17 12:45 (Deltasone) 5 mg DAILY PO 09/10/17 09:00 09/15/17 08:59 09/10/17 09:47 (Atrovent Neb) 0.5 mg Q6HR NEB NEB 09/10/17 16:00 (Imodium) 2 mg Q4H PRN PO 09/10/17 15:00 Vital Signs / I&O Vital Signs Date Time Temp Pulse Resp B/P (MAP) Pulse Ox O2 Delivery O2 Flow Rate FiO2 09/10/17 11:05 95 09/10/17 08:00 100.4 78 174/102 (126) 92 09/10/17 08:00 92 Nasal Cannula 4.00 09/10/17 08:00 78 09/10/17 06:00 93 09/10/17 04:00 97.7 77 145/70 (95) 77 09/10/17 04:00 94 Nasal Cannula 4.00 09/10/17 04:00 79 09/10/17 02:00 74 09/10/17 00:00 97.5 102 139/70 (93) 78 09/10/17 00:00 102 09/10/17 00:00 93 Nasal Cannula 4.00 09/09/17 22:00 88 09/09/17 20:00 94 Nasal Cannula 4.00 09/09/17 20:00 90 09/09/17 20:00 100.1 90 133/70 (91) 83 09/09/17 20:00 94 Nasal Cannula 4.00 09/09/17 18:00 87 I/O 09/09/17 09/09/17 09/09/17 09/10/1709/10/18 3/14/18 07:00 15:00 23:00 07:00 15:00 23:00 Intake Total 250 ml 287 ml Output Total 1200 ml 1450 ml 1500 ml Balance -1200 ml -1200 ml -1213 ml Intake Oral 250 ml Tube Feeding 127 ml Other 160 ml Output Urine Total 1200 ml 1450 ml 1500 ml # Bowel Movements 2 2 1 Physical Exam GENERAL: NAD, AAOx3 SKIN: Warm and dry. HEAD: Atraumatic. Normocephalic. EYES: Pupils equal and round. No scleral icterus. No injection or drainage. ENT: No nasal bleeding or discharge. Mucous membranes pink and moist. NECK: Trachea midline. No JVD. CARDIOVASCULAR: Irregularly irregular RESPIRATORY: No accessory muscle use. Clear to auscultation. Breath sounds equal bilaterally. GASTROINTESTINAL: Abdomen soft, non-tender, nondistended. Hepatic and splenic margins not palpable. MUSCULOSKELETAL: Extremities without clubbing, cyanosis, or edema. No obvious deformities. NEUROLOGICAL: Awake and alert. No obvious cranial nerve deficits. Motor grossly within normal limits. Five out of 5 muscle strength in the arms and legs. Normal speech. PSYCHIATRIC: Appropriate mood and affect; insight and judgment normal. Laboratory Laboratory Tests Test 09/10/17 06:30 White Blood Count 6.1 TH/MM3 Red Blood Count 2.86 MIL/MM3 Hemoglobin 9.5 GM/DL Hematocrit 28.5 % Mean Corpuscular Volume 99.5 FL Mean Corpuscular Hemoglobin 33.2 PG Mean Corpuscular Hemoglobin Concent 33.3 % Red Cell Distribution Width 18.7 % Platelet Count 245 TH/MM3 Mean Platelet Volume 7.8 FL Neutrophils (%) (Auto) 83.3 % Lymphocytes (%) (Auto) 9.4 % Monocytes (%) (Auto) 6.7 % Eosinophils (%) (Auto) 0.4 % Basophils (%) (Auto) 0.2 % Neutrophils # (Auto) 5.1 TH/MM3 Lymphocytes # (Auto) 0.6 TH/MM3 Monocytes # (Auto) 0.4 TH/MM3 Eosinophils # (Auto) 0.0 TH/MM3 Basophils # (Auto) 0.0 TH/MM3 CBC Comment AUTO DIFF Differential Total Cells Counted 100 Neutrophils % (Manual) 73 % Band Neutrophils % 8 % Lymphocytes % 11 % Monocytes % 8 % Neutrophils # (Manual) 4.9 TH/MM3 Nucleated Red Blood Cells 2 /100 WBC Differential Comment FINAL DIFF MANUAL Platelet Estimate NORMAL Platelet Morphology Comment NORMAL Polychromasia 2.1 % Blood Urea Nitrogen 12 MG/DL Creatinine 0.33 MG/DL Random Glucose 78 MG/DL Total Protein 5.9 GM/DL Albumin 2.2 GM/DL Calcium Level 8.5 MG/DL Phosphorus Level 3.0 MG/DL Magnesium Level 1.8 MG/DL Alkaline Phosphatase 69 U/L Aspartate Amino Transf (AST/SGOT) 21 U/L Alanine Aminotransferase (ALT/SGPT) 25 U/L Total Bilirubin 0.5 MG/DL Sodium Level 140 MEQ/L Potassium Level 3.6 MEQ/L Chloride Level 104 MEQ/L Carbon Dioxide Level 25.9 MEQ/L Anion Gap 10 MEQ/L Estimat Glomerular Filtration Rate 191 ML/MIN Imaging Last 24 hours Impressions Chest X-Ray 09/10/17 0600 Signed Impressions: Service Date/Time: Sunday, September 10, 2017 03:43 - CONCLUSION: Slight worsening in bibasilar pulmonary infiltrates. 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 (3) Weakness ICD Codes: R53.1 - Weakness (4) Pain ICD Codes: R52 - Pain, unspecified (5) Hypotension ICD Codes: I95.9 - Hypotension, unspecified (6) Altered mental status ICD Codes: R41.82 - Altered mental status, unspecified (7) UTI (urinary tract infection) ICD Codes: N39.0 - Urinary tract infection, site not specified (8) Tachycardia ICD Codes: R00.0 - Tachycardia, unspecified (9) Rhabdomyolysis ICD Codes: M62.82 - Rhabdomyolysis (10) Dyspnea ICD Codes: R06.00 - Dyspnea, unspecified (11) Anxiety ICD Codes: F41.9 - Anxiety disorder, unspecified (12) Acute renal failure ICD Codes: N17.9 - Acute kidney failure, unspecified (13) Septic shock ICD Codes: A41.9 - Sepsis, unspecified organism; R65.21 - Severe sepsis with septic shock (14) Acute respiratory failure ICD Codes: J96.00 - Acute respiratory failure, unspecified whether with hypoxia or hypercapnia (15) Alcohol abuse ICD Codes: F10.10 - Alcohol abuse, uncomplicated Assessment and Plan 1) AFib with RVR Now controlled on Digoxin, metoprolol tartrate and Cardizem If further episodes, may need to increase Digoxin For now stable, will continue to follow 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
--- NOTE | 2017-09-10 16:16 | HHI.HCPN ---
Reason for visit a. To assist with evaluation and management of symptoms including: dyspnea, weakness, pain, anxiety. b. To assist medical decision maker(s) with: better understanding of current medical conditions; weighing benefits/burdens of medical treatment options; making medical treatment decisions. . Subjective/Interval History Patient seen and examined in ICU. Daughter arrived at bedside during visit. She has undergone placement of a Dobbhoff tube recently, which has prevented her transfer to [facility]. She is unable to eat due to a painful thrush infection. She is receiving Diflucan 800 mg daily as indicated by infectious disease, started 09/09 and scheduled to continue through October 05. Daughter is declining the placement of a PEG tube at this time as she is concerned about the risks of anesthesia and procedures in her mother. A transesophageal echocardiogram was also held due to the possible risk of anesthesia and the requirement for recurrent intubation. Clinical data: * Vital signs: Blood pressure 174/102, heart rate 78, oxygen saturation 92% on 4 L nasal cannula, T-MAX 100.4. * Laboratory: WBC 6.1, hemoglobin 9.5, hematocrit 28.5, platelets 245, sodium 140, potassium 3.6, BUN 12, creatinine 0.33, total protein 5.9, albumin 2.2 This is a elderly, frail, weak appearing female lying in bed in no acute distress. She doses off and on through the conversation. The daughter states she has been awake, alert and conversant all day. Dobbhoff tube has been placed to the right nare and tube feeding is infusing at 20 mL an hour. . Family/friend interactions Spoke with the daughter at bedside. Goals remain aggressive. She does not wish to have her mother undergoing any procedures that would put her at further risk of recurrent intubation. She would like to increase her mother's nutritional intake to allow for strengthening with physical therapy. At this time due to her mother's mouth pain, she is unable to intake adequate calories and is requiring tube feeding. At baseline her mother has a poor appetite and has eaten very little since her extubation 2 weeks ago. . Advance Directives Living Will: Never completed Health Care Surrogate: Never completed Durable Power of Job Placement Specialist: Never completed Advance Directive Specifics Health Care Surrogate(s): Living Will copy obtained. According to her Living Will she names daughterSilvia as primary HCS and son Jl Olson as alternate HCS. . Documented care wishes: Standard Living Will on chart. . Objective Vital Signs Date Time Temp Pulse Resp B/P (MAP) Pulse Ox O2 Delivery O2 Flow Rate FiO2 09/10/17 11:05 95 09/10/17 08:00 100.4 78 174/102 (126) 92 09/10/17 08:00 92 Nasal Cannula 4.00 09/10/17 08:00 78 09/10/17 06:00 93 09/10/17 04:00 97.7 77 145/70 (95) 77 09/10/17 04:00 94 Nasal Cannula 4.00 09/10/17 04:00 79 09/10/17 02:00 74 09/10/17 00:00 97.5 102 139/70 (93) 78 09/10/17 00:00 102 09/10/17 00:00 93 Nasal Cannula 4.00 09/09/17 22:00 88 09/09/17 20:00 94 Nasal Cannula 4.00 09/09/17 20:00 90 09/09/17 20:00 100.1 90 133/70 (91) 83 09/09/17 20:00 94 Nasal Cannula 4.00 09/09/17 18:00 87 09/09/17 16:00 98.8 83 125/66 (85) 100 09/09/17 16:00 Nasal Cannula 4.00 09/09/17 16:00 108 Intake & Output 09/10/17 09/10/17 07:00 19:00 Intake Total 287 ml Output Total 1500 ml Balance -1213 ml Tube Feeding 127 ml Other 160 ml Output Urine Total 1500 ml # Bowel Movements 1 Physical Exam CONSTITUTIONAL/GENERAL: This is a frail, elderly, pale female, lying in bed dozing in no acute distress. TUBES/LINES/DRAINS: NC, PIV, catheter, SCDs. SKIN: No jaundice, rashes, or lesions. Ecchymoses on upper extremities. Skin temperature appropriate. Not diaphoretic. Thrush seen throughout mouth and palate. CARDIOVASCULAR: Irregularly irregular. A. Fib on monitor. RESPIRATORY/CHEST: Non labored respirations in NC. Diminished bilateral bases. scattered rhonchi. GASTROINTESTINAL: Abdomen soft, non distended. + bowel sounds. Dobbhoff tube to the right nare infusing Glucerna at 20 mL an hour. GENITOURINARY: Without palpable bladder distension. Catheter in place. MUSCULOSKELETAL: Extremities with edema. Generalized weakness. moves all extremities. NEUROLOGICAL: Lethargic and dosing, soft voice improving, follows commands, answers questions appropriately. PSYCHIATRIC: denies anxiety. . Diagnostic Tests Laboratory Laboratory Tests Test 09/08/17 12:13 09/09/17 04:20 09/10/17 06:30 White Blood Count 11.6 TH/MM3 (4.0-11.0) 8.1 TH/MM3 (4.0-11.0) 6.1 TH/MM3 (4.0-11.0) Red Blood Count 2.71 MIL/MM3 (4.00-5.30) 3.22 MIL/MM3 (4.00-5.30) 2.86 MIL/MM3 (4.00-5.30) Hemoglobin 8.9 GM/DL (11.6-15.3) 10.9 GM/DL (11.6-15.3) 9.5 GM/DL (11.6-15.3) Hematocrit 26.9 % (35.0-46.0) 32.7 % (35.0-46.0) 28.5 % (35.0-46.0) Mean Corpuscular Volume 99.2 FL (80.0-100.0) 101.8 FL (80.0-100.0) 99.5 FL (80.0-100.0) Mean Corpuscular Hemoglobin 32.7 PG (27.0-34.0) 33.8 PG (27.0-34.0) 33.2 PG (27.0-34.0) Mean Corpuscular Hemoglobin Concent 33.0 % (32.0-36.0) 33.2 % (32.0-36.0) 33.3 % (32.0-36.0) Red Cell Distribution Width 16.5 % (11.6-17.2) 18.2 % (11.6-17.2) 18.7 % (11.6-17.2) Platelet Count 294 TH/MM3 (150-450) 244 TH/MM3 (150-450) 245 TH/MM3 (150-450) Mean Platelet Volume 7.9 FL (7.0-11.0) 8.1 FL (7.0-11.0) 7.8 FL (7.0-11.0) Neutrophils (%) (Auto) 88.1 % (16.0-70.0) 86.1 % (16.0-70.0) 83.3 % (16.0-70.0) Lymphocytes (%) (Auto) 5.1 % (9.0-44.0) 8.7 % (9.0-44.0) 9.4 % (9.0-44.0) Monocytes (%) (Auto) 6.5 % (0.0-8.0) 4.8 % (0.0-8.0) 6.7 % (0.0-8.0) Eosinophils (%) (Auto) 0.1 % (0.0-4.0) 0.2 % (0.0-4.0) 0.4 % (0.0-4.0) Basophils (%) (Auto) 0.2 % (0.0-2.0) 0.2 % (0.0-2.0) 0.2 % (0.0-2.0) Neutrophils # (Auto) 10.3 TH/MM3 (1.8-7.7) 6.9 TH/MM3 (1.8-7.7) 5.1 TH/MM3 (1.8-7.7) Lymphocytes # (Auto) 0.6 TH/MM3 (1.0-4.8) 0.7 TH/MM3 (1.0-4.8) 0.6 TH/MM3 (1.0-4.8) Monocytes # (Auto) 0.8 TH/MM3 (0-0.9) 0.4 TH/MM3 (0-0.9) 0.4 TH/MM3 (0-0.9) Eosinophils # (Auto) 0.0 TH/MM3 (0-0.4) 0.0 TH/MM3 (0-0.4) 0.0 TH/MM3 (0-0.4) Basophils # (Auto) 0.0 TH/MM3 (0-0.2) 0.0 TH/MM3 (0-0.2) 0.0 TH/MM3 (0-0.2) CBC Comment AUTO DIFF DIFF FINAL AUTO DIFF Differential Total Cells Counted 100 100 Neutrophils % (Manual) 71 % (16-70) 73 % (16-70) Band Neutrophils % 7 % (0-6) 8 % (0-6) Lymphocytes % 7 % (9-44) 11 % (9-44) Monocytes % 14 % (0-8) 8 % (0-8) Neutrophils # (Manual) 9.2 TH/MM3 (1.8-7.7) 4.9 TH/MM3 (1.8-7.7) Metamyelocytes 1 % (0-1) Nucleated Red Blood Cells 3 /100 WBC (0-0) 2 /100 WBC (0-0) Differential Comment FINAL DIFF MANUAL FINAL DIFF MANUAL Platelet Estimate NORMAL (NORMAL) NORMAL (NORMAL) Platelet Morphology Comment NORMAL (NORMAL) NORMAL (NORMAL) Polychromasia 2.0 % (0.0-1.9) 2.1 % (0.0-1.9) Basophilic Stippling FAINT (NORMAL) Blood Urea Nitrogen 18 MG/DL (7-18) 14 MG/DL (7-18) 12 MG/DL (7-18) Creatinine 0.43 MG/DL (0.50-1.00) 0.41 MG/DL (0.50-1.00) 0.33 MG/DL (0.50-1.00) Random Glucose 87 MG/DL (74-106) 80 MG/DL (74-106) 78 MG/DL (74-106) Total Protein 5.5 GM/DL (6.4-8.2) 6.2 GM/DL (6.4-8.2) 5.9 GM/DL (6.4-8.2) Albumin 2.3 GM/DL (3.4-5.0) 2.4 GM/DL (3.4-5.0) 2.2 GM/DL (3.4-5.0) Calcium Level 8.4 MG/DL (8.5-10.1) 8.0 MG/DL (8.5-10.1) 8.5 MG/DL (8.5-10.1) Phosphorus Level 3.7 MG/DL (2.5-4.9) 3.4 MG/DL (2.5-4.9) 3.0 MG/DL (2.5-4.9) Magnesium Level 1.9 MG/DL (1.5-2.5) 2.2 MG/DL (1.5-2.5) 1.8 MG/DL (1.5-2.5) Alkaline Phosphatase 72 U/L (45-117) 76 U/L (45-117) 69 U/L (45-117) Aspartate Amino Transf (AST/SGOT) 15 U/L (15-37) 45 U/L (15-37) 21 U/L (15-37) Alanine Aminotransferase (ALT/SGPT) 24 U/L (10-53) 27 U/L (10-53) 25 U/L (10-53) Total Bilirubin 0.5 MG/DL (0.2-1.0) 0.6 MG/DL (0.2-1.0) 0.5 MG/DL (0.2-1.0) Sodium Level 140 MEQ/L (136-145) 138 MEQ/L (136-145) 140 MEQ/L (136-145) Potassium Level 4.3 MEQ/L (3.5-5.1) 4.6 MEQ/L (3.5-5.1) 3.6 MEQ/L (3.5-5.1) Chloride Level 107 MEQ/L (98-107) 107 MEQ/L (98-107) 104 MEQ/L (98-107) Carbon Dioxide Level 23.7 MEQ/L (21.0-32.0) 22.4 MEQ/L (21.0-32.0) 25.9 MEQ/L (21.0-32.0) Anion Gap 9 MEQ/L (5-15) 9 MEQ/L (5-15) 10 MEQ/L (5-15) Estimat Glomerular Filtration Rate 141 ML/MIN (>89) 149 ML/MIN (>89) 191 ML/MIN (>89) Digoxin Level 1.2 NG/ML (0.8-2.0) . Result Diagram: 09/10/1730 09/10/17 0630 Microbiology Microbiology Date/Time Source Procedure Growth Status 08/29/17 17:23 Blood Peripheral Aerobic Blood Culture - Final NO GROWTH IN 5 DAYS Complete 08/29/17 17:23 Blood Peripheral Anaerobic Blood Culture - Final NO GROWTH IN 5 DAYS Complete 08/29/17 15:00 Fluid Pleural Fluid Fungal Smear - Final NO FUNGAL ELEMENTS SEEN. Resulted 08/29/17 15:00 Fluid Pleural Fluid Fungal Culture - Preliminary NO GROWTH IN 1 WEEK Resulted 08/15/17 02:28 Stool Stool Stool Occult Blood (MARCIA) - Final HEMOCCULT NEGATIVE Complete 08/21/17 15:20 Sputum Endotracheal Gram Stain - Final Complete 08/21/17 15:20 Sputum Endotracheal Sputum Culture - Final NO GROWTH IN 48 HOURS. Complete 08/21/17 13:45 Urine Catheterized Urine Urine Culture - Final NO GROWTH IN 48 HOURS. Complete . Imaging Last Impressions Chest X-Ray 09/10/17 0600 Signed Impressions: Service Date/Time: Sunday, September 10, 2017 03:43 - CONCLUSION: Slight worsening in bibasilar pulmonary infiltrates. Matt Mckeon Jr., MD Abdomen X-Ray 09/09/17 0000 Signed Impressions: Service Date/Time: Saturday, September 09, 2017 18:20 - CONCLUSION: Dobbhoff feeding tube is in the proximal duodenum. Adan Nunes MD Thoracentesis 09/04/17 0000 Signed Impressions: Service Date/Time: August 15:12 - CONCLUSION: 1. Small bilateral pleural effusions with concomitant atelectatic changes. 2. Fluid collections are too small to safely drain percutaneously with CT. Shashi Moreno MD Chest Ultrasound 09/04/17 0000 Signed Impressions: Service Date/Time: August 09:23 - CONCLUSION: Right pleural effusion as above. Shashi Moreno MD Chest CT 08/29/17 0000 Signed Impressions: Service Date/Time: Tuesday, August 29, 2017 14:48 - CONCLUSION: Following thoracentesis there is decreasing amount of effusion. Significant consolidation persists. There is no pneumothorax. Juan J Joel MD FACR Abdomen/Pelvis CT 08/23/17 1426 Signed Impressions: Service Date/Time: Wednesday, August 23, 2017 22:50 - CONCLUSION: 1. Suspected mild diffuse colitis, nonspecific but presumably infectious or inflammatory. No obstruction or abscess. 2. Trace ascites about the same there is worsening anasarca and worsening pleural effusions and consolidation of both lung bases. 3. Tiny nonobstructing stone of the right kidney and a generally benign appearing cyst lower pole the left kidney. No evidence of obstructive uropathy or other etiology for acute renal failure. 4. Atherosclerotic aorta. No aneurysm. Adan Nunes MD Upper Extremity Ultrasound 08/23/17 0000 Signed Impressions: Service Date/Time: Wednesday, August 23, 2017 16:25 - CONCLUSION: Bilateral upper extremity DVT as described above. Samuel Peralta MD Lower Extremity Ultrasound 08/23/17 0000 Signed Impressions: Service Date/Time: Wednesday, August 23, 2017 15:50 - CONCLUSION: 1. There is incomplete compression of the left common femoral vein raising suspicion for nonocclusive thrombus. This vessel, however, still demonstrates normal Doppler blood flow and respiratory variability. 2. The remaining veins of the left lower extremity are patent and the entire right lower extremity is patent without thrombus. Adan Machuca MD Lumbar Puncture Fluoroscopy 08/15/17 Signed Impressions: Service Date/Time: Tuesday, August 15, 2017 15:36 - CONCLUSION: 1. Uncomplicated fluoroscopically guided lumbar puncture. 2. Please note, requested opening pressures were not obtained due to technical difficulties. Shashi Moreno MD Brain MRI 08/15/17 Signed Impressions: Service Date/Time: Tuesday, August 15, 2017 16:57 - CONCLUSION: 1. 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 2. Mild stenosis in the upper cervical spine as above. Esau Martell MD Abdomen Ultrasound 08/15/17 Signed Impressions: Service Date/Time: Tuesday, August 15, 2017 10:40 - CONCLUSION: 1. No abnormality is identified to explain the clinical symptoms. There is no hydronephrosis. 2. The liver is normal in size and echotexture. Adan Machuca MD Head CT 08/14/172231 Signed Impressions: Service Date/Time: July 22:54 - CONCLUSION: Unremarkable study. K. Yovani Villagomez MD . Procedures * 08/25/17 - extubated. * 08/15/17-lumbar puncture by IR * 08/15/17 - right IJ central line, intubated. . Assessment and Plan Disease Oriented Problem List: (1) Acute respiratory failure Comment: now on NC (2) Tachycardia (3) Alcohol abuse (4) Atrial fibrillation Symptom Scale: (1) Pain 0-10 Scale: 0 (2) Dyspnea 0-10 Scale: 0 (3) Weakness 0-10 Scale: 0 Comment: continue PT/ OT Pertinent Non-Medical Issues Psychosocial: . Lives with Nicole flores. Has 3 daughters and 1 son. Spiritual: Mandaen david. Legal: According to her Living Will she names daughterSilvia as primary HCS and son Jl Olson as alternate HCS. Ethical issues impacting care: No known concerns at this time. . Important Contacts * Silvia "Nicole" Toby, daughter/ HCS: [phone] * Jl Olson, son/ alternate HCS: or [phone] * Jessica, daughter: [phone] * Chelsea, daughter: [phone] . Prognosis Ms. Olson is an 82 year old admitted with rhabdomyolysis, septic shock uncertain etiology, dehydration, renal failure. At this point we will need additional information to determine overall prognosis. Given her advanced age, she remain high risk for further setbacks or decline. . Code Status: Full Code Plan * Patient appears to have some insight and judgment regarding her current health condition, recommend shared medical decision making as her mentation seems to wax and wane. According to her Living Will she names Silvia flores as primary HCS and son Jl Olson as alternate HCS. * FULL CODE. * Goals remain aggressive. Patient hopes for continued rehab ([facility]) and then DC home. * SYMPTOMS: Dyspnea: Medically extubated 08/25/17 am. Denies SOB on NC. Pain: potential sources include intubation, chronic neck pain, infection, etc. complaining of severe mouth pain with eating. Previously on Magic mouthwash which was discontinued, now on Diflucan and Mycelex troches. Dobbhoff tube inserted for bypass nutrition. Has PRN Oxycodone, none given. PRN Morphine 1mg IV available, last dose 09/08/2017 at 3: 22. May benefit from Ofirmev temporarily to increase PO intake. Anxiety: Off all sedation. Denies. Weakness : Continue PT/OT. Decreased appetite: poor oral intake, eating 10-25% of some meals and Ensure, encouraged increased oral intake. * Palliative care will continue to throughout hospital course to assist with clarification of goals. . Time Spent Time Periods: 3:40-4:15 Total Floor Time (mins): 35 Face to Face Time (mins): 20 >50% Counseling/Coord of Care: Yes Attestation To help prompt me to consider important information that might be impacting today's encounter and assessment, information from prior notes written by myself or my colleagues may have been "brought forward" into today's note. My signature on this note, however, is an attestation that I personally performed the exam, history, and/or decision-making noted today, and, unless otherwise indicated, the interactions with patient, family, and staff as well as the review of records all occurred today. I also attest that the listed assessment and stated plan reflect my best clinical judgment today based on the combination of historical information, prior notes, and today's exam/ interactions. When time spent is documented, it refers only to time spent today by the signer, or if indicated, combined time spent today by collaborating physician/nurse practitioner. . Leonor Kendrick Sep 10, 2017 16:16
[2017-09-10] MEDS: ENOXAPARIN SODIUM 100 MG/ML SYRINGE SQ SCH (17:41)
[2017-09-10] MEDS: TEMAZEPAM 15 MG CAP PO PRN (20:29)
[2017-09-10] MEDS: guaiFENesin E.R. 600 MG TAB PO SCH (21:17)
[2017-09-11] VITALS (19 sets, daily range): BP systolic 105–164; BP diastolic 56–82; PULSE 60–117; TEMP 98.2–99.6; O2SAT 76–100
[2017-09-11] MEDS: RESP: IPRATROPIUM 0.5 MG/2.5 ML NEB NEB SCH ×4 (02:47→20:38)
[2017-09-11] MEDS: DILTIAZEM HCL 90 MG TAB PO SCH ×3 (06:00→17:28)
[2017-09-11] MEDS: CLOTRIMAZOLE 10 MG TROCHE BUCCAL SCH ×5 (06:00→20:58)
--- NOTE | 2017-09-11 08:03 | HHI.CCPN ---
Subjective Remarks/Hospital Course Patient is an 82-year-old female with past medical history of irritable bowel syndrome, hypertension, arthritis, diverticulitis who presented to the [facility] ED after she was found lying on her bed with urine and feces all around her bed. In addition, the patient was altered and obtunded. Most of the history was obtained from reviewing the medical records. Her laboratory data showed acute renal failure with BUN of 52, creatinine 3.39 and lactic acidosis with a lactic acid level of 6.3. In addition, the patient was in rhabdomyolysis with elevated CK at 3855. She was admitted under the hospitalist service; however, a [facility] was called due to worsening mental status, hypertension and hypoxemia. She was transferred to [facility] and critical care medicine was consulted for critical care management. When seen, the patient was lethargic, not following any commands, hypotensive. She was subsequently intubated by myself and a right internal jugular central line was placed for hemodynamic monitoring. ABG post intubation showed a pH of 7.31, co2 of 30, pA02 of 117, bicarbonate 15 and saturation of 96% on PRVC rate of 14, tidal volume 350 with IT:1, PEEP 5 and FIO2 of 100%. She was given two liter boluses of normal saline and placed on a bicarbonate drip. Her lactic acid level is trending down and is currently 3.4 from 6.3 on arrival. In addition, her renal function is improving with IV hydration. Her creatinine level is 2.29 from 3.39. Due to hypotension, Levophed was started. A CT scan of the brain in the emergency department was unremarkable. Her initial chest x-ray showed minimal basilar atelectasis, no effusions or pneumothoraces. According to the patient's family, the patient has been intermittently binge drinking. In addition, they report her having diarrhea for a few days. She had a low-grade fever with a temperature of 100.2 last night. 08/16 Patient is sedated with Fentanyl drip intubated and on Levophed 5 mics. On Bicarb drip. MRI brain yesterday showed small lacunar infarcts in left cerebellar hemisphere and right parietal lobe. Lp showed clear CSF, 17 wbc. Afebrile.Renal function worse today with Cr: 2.64 from 2.29 08/17 Patient remains sedated and intubated. On Bicarb drip. Off Levophed renal function slightly worse today with Cr: 2.82 from 2.64 and UOP: 550 ml in 24 hrs 08/18 Patient bit through ETT overnight s/p new ETT placement using tube exchanger. Sedated with Diprivan and Fentanyl. Afebrile. Renal function is improving with Cr: 1.97 from 2.82. On Bicarb drip. Tube feeds held for possible colonoscopy today. 08/19: Remains sedated, orally intubated on mechanical ventilation. Colonoscopy done yesterday revealed ischemic colitis. Has been evaluated by general surgery. Patient went into A. fib with RVR last night and was started on a Cardizem drip. On Levophed for hypotension 08/20: Remains sedated, orally intubated on mechanical ventilation. Started on TPN on 08/19. Cardizem drip turned off this morning. Received 1 dose of digoxin yesterday. 08/21: Remains sedated, orally intubated on mechanical ventilation. On TPN. Ordered Precedex as well as digoxin daily. Starting trophic feeds today. 08/22 Patient remains intubated on Precedex and Fentanyl infusion for sedation. afebrile. 08/23 WBC up to 17.7. Temp max 102.2. Blood culture sent today peripherally ( labelled as line draw initially but was not drawn from a line, lab notified to re-label). Tolerating trophic feeds. Awake and on CPAP 10/5 with RSBI 50s, became labored and desat with 5/5. Denies abdominal pain. 08/24: Tmax 102.7 overnight. Currently 100.6. Noted yeast growing from blood culture 08/21. Remains in atrial fibrillation. Potassium currently been replaced. Currently only has once peripheral IV access. Will need central line placed later this afternoon. 08/25 Patient is awake and alert on CPAP trials. T: 101.1 last night. On Heparin and Bumex drips 08/26 Patient was extubated yesterday on 3L oxygen. She went into Afib with RVR last night given Labetalol. Afebrile. 08/27: Patient is slightly tachypneic, but maintaining O2 sat. chest x-ray shows at least moderate sized pleural effusions. Start Lasix 40 mg IV every 12 [address] Doe catheter for accurate intake output and also appears that patient has urinary retention. Remains in atrial fibrillation with RVR, on Cardizem at 15 mg per hour. 08/28: On BiPAP overnight. Currently on 4 L nasal cannula. Fluctuating neurologic status consistent with delirium. Remains on Cardizem drip at 5 mg per hour for A. fib with RVR. Diuresing well with Lasix. 08/29: Respiratory status borderline with tachypnea. Requiring intermittent BiPAP. Started on Precedex for anxiety. Dropped blood pressure. 1 unit PRBCs ordered. Solu-Medrol 125 mg IV 1 dose ordered as well. Scheduled for CT- guided thoracentesis for right side today. Heparin GTT held for thoracentesis. Chest x-ray with bilateral pleural effusions despite diuresis. 08/30: Seems to be breathing a little better. Was on BiPAP overnight. Currently on nasal cannula. Knows she is at the hospital and follows commands appropriately. Underwent bilateral thoracentesis yesterday with drainage of 500 cc from right side and 300 cc from left. On Precedex which appears to be working well for anxiety. 08/31: Remains on nasal cannula. Did not use BiPAP at night. Awake and alert. Following commands appropriately. By mouth intake remains borderline. On Precedex 0.2 mics per KG per hour. 09/01 Patient is on 3L oxygen with good sats, hypertensive Remains on Precedex 0.2 mics per KG per hour 09/02 No events overnight. Off Precedex drip. Afebrile. On 3L oxygen. 09/03 Patient is awake, alert remains on 3L oxygen, Afebrile. Requesting something to help her sleep. 09/04 Patient is on 3L oxygen. Afebrile. 09/05 Patient is lying in bed in NAD. Thoracentesis couldn't be done by IR as pleural effusion is too small per CT images. Afebrile. 09/06 On 3 L nasal cannula. Has a lunch tray and is feeding herself with nurse encouragement. Afebrile. Afib rate controlled 70s to 80s. Patient complains of inability to sleep at night. Stool C diff ordered today per ID due to increased stool frequency. 09/07: Resting in bed in no acute distress on 3 L nasal cannula. 09/08: Resting in bed in no acute distress. Currently on 4 L nasal cannula. Requesting antidiarrheal medication for diarrhea. 09/09: Afebrile. Currently on 4 L nasal cannula. Feels weaker today. Painful with difficulty swallowing. Blood sugars 24 this a.m.. Requesting feeding tube to get stronger. Subjective: 09/10: T-max 100.4. 3 problems overnight. Complaining of xerostomia and odynophagia. Refusing EGD. Biotene initiated per family. Worsening cough noted. 09/11 Patient is on 4L oxygen. T: 100.4 Objective Vital Signs Date Time Temp Pulse Resp B/P (MAP) Pulse Ox O2 Delivery O2 Flow Rate FiO2 09/11/17 06:00 96 09/11/17 04:00 140/75 (96) 99 09/11/17 04:00 Nasal Cannula 4.00 09/11/17 00:00 98.2 09/08/17 20:00 20 Intake and Output 09/11/17 09/11/17 09/12/17 08:00 16:00 00:00 Intake Total 840 ml Output Total 450 ml Balance 390 ml Result Diagram: 09/10/17 0630 09/10/17 0630 Imaging Last Impressions Chest X-Ray 09/10/17 0600 Signed Impressions: Service Date/Time: Sunday, September 10, 2017 03:43 - CONCLUSION: Slight worsening in bibasilar pulmonary infiltrates. Matt Mckeon Jr., MD Abdomen X-Ray 09/09/17 0000 Signed Impressions: Service Date/Time: Saturday, September 09, 2017 18:20 - CONCLUSION: Dobbhoff feeding tube is in the proximal duodenum. Adan Nunes MD Thoracentesis 09/04/17 0000 Signed Impressions: Service Date/Time: August 15:12 - CONCLUSION: 1. Small bilateral pleural effusions with concomitant atelectatic changes. 2. Fluid collections are too small to safely drain percutaneously with CT. Shashi Moreno MD Chest Ultrasound 09/04/17 0000 Signed Impressions: Service Date/Time: August 09:23 - CONCLUSION: Right pleural effusion as above. Shashi Moreno MD Chest CT 08/29/17 0000 Signed Impressions: Service Date/Time: Tuesday, August 29, 2017 14:48 - CONCLUSION: Following thoracentesis there is decreasing amount of effusion. Significant consolidation persists. There is no pneumothorax. Juan J Joel MD FACR Abdomen/Pelvis CT 08/23/17 1426 Signed Impressions: Service Date/Time: Wednesday, August 23, 2017 22:50 - CONCLUSION: 1. Suspected mild diffuse colitis, nonspecific but presumably infectious or inflammatory. No obstruction or abscess. 2. Trace ascites about the same there is worsening anasarca and worsening pleural effusions and consolidation of both lung bases. 3. Tiny nonobstructing stone of the right kidney and a generally benign appearing cyst lower pole the left kidney. No evidence of obstructive uropathy or other etiology for acute renal failure. 4. Atherosclerotic aorta. No aneurysm. Adan Nunes MD Upper Extremity Ultrasound 08/23/17 0000 Signed Impressions: Service Date/Time: Wednesday, August 23, 2017 16:25 - CONCLUSION: Bilateral upper extremity DVT as described above. Samuel Peralta MD Lower Extremity Ultrasound 08/23/17 0000 Signed Impressions: Service Date/Time: Wednesday, August 23, 2017 15:50 - CONCLUSION: 1. There is incomplete compression of the left common femoral vein raising suspicion for nonocclusive thrombus. This vessel, however, still demonstrates normal Doppler blood flow and respiratory variability. 2. The remaining veins of the left lower extremity are patent and the entire right lower extremity is patent without thrombus. Adan Machuca MD Lumbar Puncture Fluoroscopy 08/15/17 0000 Signed Impressions: Service Date/Time: Tuesday, August 15, 2017 15:36 - CONCLUSION: 1. Uncomplicated fluoroscopically guided lumbar puncture. 2. Please note, requested opening pressures were not obtained due to technical difficulties. Shashi Moreno MD Brain MRI 08/15/17 0000 Signed Impressions: Service Date/Time: Tuesday, August 15, 2017 16:57 - CONCLUSION: 1. 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 2. Mild stenosis in the upper cervical spine as above. Esau Martell MD Abdomen Ultrasound 08/15/17 0000 Signed Impressions: Service Date/Time: Tuesday, August 15, 2017 10:40 - CONCLUSION: 1. No abnormality is identified to explain the clinical symptoms. There is no hydronephrosis. 2. The liver is normal in size and echotexture. Adan Machuca MD Head CT 08/14/17 2235 Signed Impressions: Service Date/Time: July 22:54 - CONCLUSION: Unremarkable study. KStepan Villagomez MD Objective Remarks GENERAL: 82-year-old female currently resting in bed on nasal cannula in no acute distress SKIN: Warm and dry. HEAD: Normocephalic. EYES: R pupil 3 mm reactive, L pupil 4 mm reactive. No scleral icterus. No injection or drainage. NECK: Supple, trachea midline. No JVD or lymphadenopathy. CARDIOVASCULAR: IRR. S1, S2 no S4. Without murmur RESPIRATORY: Diminished breath sounds in the bases bilaterally. No wheezing, rales or rhonchi appreciated. GASTROINTESTINAL: Abdomen soft, non-tender, nondistended. Bowel sounds hypoactive but present. No guarding or rigidity MUSCULOSKELETAL: Trace edema, more prominent LUE. NEURO: Awake alert oriented 3, conversant. 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 every 6 hours as needed fever Oxycodone 5 mg every 4 hours as needed pain 6 or 10, morphine sulfate 1 mg IV every 4 hours as needed anxiety/prn breakthrough. 08/15: CT brain negative for acute intracranial process MRI brain: Small lacunar infarcts in left cerebellar hemisphere and right parietal lobe EEG: Severe encephalopathy Repeat EEG 08/21.- generalized slowing, no epileptiform features Continue thiamine, multivitamin and folic acid daily. Neuro is following- Dr. Danielle LP showed clear CSF, 17 WBC, TP:45.2 Generally weak - PT and OT following. PT recommending acute rehab Continue aspirin 81 mg daily with enoxaparin 100 mg IV twice daily Temazepam 30 mg at night for insomnia Pulm: Acute respiratory failure, resolved Bilateral pleural effusions -resolved Continue with oxygen keep sat >92% currently on 4 L Albuterol/ipratropium aerosols every 6 hours with albuterol aerosols every 2 hours as needed dyspnea Incentive spirometry Q1 hr while awake. Acapella q6 hours with Duoneb CXR: Bibasilar infiltrates Status post bilateral CT-guided thoracentesis by IR on 08/29 with drainage of 500 cc of pleural fluid on right and 300 cc from left(transudative fluid) Thoracentesis wasn't done by IR on 09/04 as pleural effusion is too small per CT images. 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 On metoprolol tartrate 50mg Q12,, diltiazem 90 mg every 6 hours and digoxin 0.125 mg daily. Digoxin level 1.2 on 09/08 Clonidine0.2mg Q8 for blood pressure Repeat Echo showed EF 45-50%, Lateral leaflet mitral valve with a 2 mm mobile density, consistent with ? endocarditis Cardiology following, Dr. Myers. FERNANDO on hold for now given resp status unless recurrent blood culture positivity. Continue aspirin 81 mg by mouth daily/home medication Renal/FEN/: Acute kidney injury, resolved Lactic acidemia, resolved Rhabdomyolysis resolved Right-sided nephrolithiasis/nonobstructing Left renal cyst Monitor renal function, intake and output and avoid nephrotoxins. Renal has followed-Dr. Figueroa, US abdomen: No hydronephrosis CT Abd/pelvis revealed nonobstructing right-sided nephrolithiasis and left renal cyst. Continue straight cath. As needed. GI: Ischemic colitis, resolved Severe acute on Chronic protein energy malnutrition AST elevation secondary to alcohol use Internal and external hemorrhoids Speech eval. Ensure with each meal. NG tube placed 09/09 with dietary consultation for tube feed recommendations. Currently on Glucerna 1.5 at 20 cc an hour advance to 45ml/hr as ligia F/u stool C diff ordered 09/05 per ID negative On famotidine 20 mg twice a day for GI prophylaxis. US liver: No abnormalities identified GI has followed- colonoscopy showed diffuse colitis in the sigmoid colon and descending colon; Necrotic, dusky appearing mucosa. Consistent with severe ischemic colitis. General surgery, Dr. Guadalupe -plan to treat conservatively unless patient worsens clinically. Repeat CT abdomen and pelvis 08/23 mild diffuse colitis Reconsult GI for odynophagia. Patient refused EGD ID: Septic shock resolved UTI Ischemic colitis Fungemia - Felipa parapsilosis Abx per ID -Continue fluconazole 800 mg IV daily , Monitor for signs of infections ( Fever, WBC). Seen by Opth no evidence of endophthalmitis Pertinent cultures 08/29 pleural fluid culture NGTD. 08/26 and 08/29 blood cultures Negative 08/23 - blood culture by line (actually peripheral) - Staph hominus 08/21 - blood culture - no growth 08/21 - sputum - no growth 08/21 - - no growth 08/21 - blood culture - Felipa parapsilosis 08/15 - CSF - negative 08/15 - sputum - no growth 08/14 - blood cultures 2 and UA - no growth C-diff PCR is negative, stool studies negative s/p LP showed clear CSF, 17 WBC, TP:45.2, HSV DNA PCR neg Endo: Hyperglycemia of critical illness/steroid SSI with accucheks Q4 TSH: 1.15. Heme: Leukocytosis Normocytic anemia B/L UE DVT Possible left common femoral vein DVT Left cephalic/basilic superficial and right superficial cephalic thrombus Monitor CBC, coags- heparin drip stopped on 08/30 and started on Enoxaparin 100 mg subcutaneously daily for full anticoagulation. Iron sulfate 300 mg twice a day. 1 unit PRBCs ordered to be transfused on 08/29 GI prophylaxis with famotidine and DVT prophylaxis with SCDs, Enoxaparin 100mg subcut daily Lines: Peripheral IV's Will sign off and transfer care to [facility] Level 2 followup. Don Youngblood MD Sep 11, 2017 08:03
[2017-09-11] MEDS: THIAMINE HCL 100 MG TAB PO SCH (08:36)
[2017-09-11] MEDS: guaiFENesin E.R. 600 MG TAB PO SCH ×2 (08:36→20:55)
[2017-09-11] MEDS: FLUCONAZOLE 200 MG TAB PO SCH (08:36)
[2017-09-11] MEDS: cloNIDine HCL 0.2 MG TAB PO SCH ×2 (08:36→16:49)
[2017-09-11] MEDS: METOPROLOL TARTRATE 50 MG TAB PO SCH ×2 (08:36→20:55)
[2017-09-11] MEDS: DIGOXIN SOLUTION 0.125 MG/2.5 ML CUP PO SCH (08:37)
[2017-09-11] MEDS: SODIUM CHLORIDE 0.9% FLUSH 10 ML FLUSH IV FLUSH SCH ×3 (08:37→20:55)
[2017-09-11] MEDS: predniSONE 5 MG TAB PO SCH (08:37)
[2017-09-11] MEDS: MULTIVITAMIN TAB PO SCH (08:37)
[2017-09-11] MEDS: FAMOTIDINE 20 MG TAB NG SCH ×2 (08:37→20:55)
[2017-09-11] MEDS: ASPIRIN 81 MG CHEW TAB OG-TUBE SCH (08:37)
[2017-09-11] MEDS: FERROUS SULFATE 300 MG /5ML UDC PO SCH ×2 (08:37→20:55)
[2017-09-11] MEDS: FOLIC ACID 1 MG TAB PO SCH (08:37)
[2017-09-11 08:54] LABS: AUTOMATED NEUTROPHIL # 4.5 TH/MM3 (1.8-7.7); BASOPHIL % 0.3 % (0.0-2.0); EOSINOPHIL % 0.4 % (0.0-4.0); HEMATOCRIT 26.8 % (35.0-46.0); HEMOGLOBIN 9.1 GM/DL (11.6-15.3); LYMPH % 11.6 % (9.0-44.0); LYMPHOCYTE # 0.6 TH/MM3 (1.0-4.8); MEAN CELL VOLUME 96.8 FL (80.0-100.0); MEAN CORPUSCULAR HEMOGLOBIN 32.8 PG (27.0-34.0); MEAN CORPUSCULAR HGB CONC 33.9 % (32.0-36.0); MONO % 6.7 % (0.0-8.0); MONOCYTE # 0.4 TH/MM3 (0-0.9); PLATELET COUNT 234 TH/MM3 (150-450); RED BLOOD COUNT 2.76 MIL/MM3 (4.00-5.30); RED CELL DISTRIBUTION WIDTH 19.4 % (11.6-17.2); WHITE BLOOD COUNT 5.6 TH/MM3 (4.0-11.0)
[2017-09-11] MEDS: SODIUM CHLORIDE 0.65% NASAL SPRAY 45 ML BTL EACH NARE PRN (08:55)
[2017-09-11 09:13] LABS: CALCIUM 8.4 MG/DL (8.5-10.1); CREATININE 0.31 MG/DL (0.50-1.00); MAGNESIUM 1.9 MG/DL (1.5-2.5)
[2017-09-11 09:14] LABS: PHOSPHORUS 2.4 MG/DL (2.5-4.9)
--- NOTE | 2017-09-11 09:59 | RADRPT ---
EXAM DATE/TIME: 09/11/2017 08:51 [place] COMPARISON: CHEST SINGLE AP, September 10, 2017, 3:43. INDICATIONS : Respiratory disease. MEDICAL HISTORY : Hypertension. SURGICAL HISTORY : None. ENCOUNTER: Subsequent ACUITY: 1 month PAIN SCORE: 10/10 LOCATION: Mouth. FINDINGS: A single view of the chest demonstrates a feeding tube entering stomach. Bilateral airspace disease s lightly improved from September 10. Bilateral effusions remain. No pneumothorax. CONCLUSION: 1. Improved bilateral airspace disease since September 10. Feeding tube enters stomach. Esau Martell MD on September 11, 2017 at 9:55 Board Certified Radiologist. This report was verified electronically.
--- NOTE | 2017-09-11 10:59 | HHI.IDPN ---
Subjective Subjective Remarks Ms. Olson is an 82 year old female with past medical history of hypertension, possible sleep apnea, chronic neck pain, sciatica, alcohol abuse, arthritis, chronic rectal prolapse with bowel incontinence and anxiety. Patients daughter reports she was away for last week (normally she lives with Mom). She checked on her mom each night. The night prior to admission patient and daughter spoke to each other and no reported fever or change in behavior etc noted. No recent bounced checks, change in behavior, fires, falls or doors left unopened or such security concerns. She was found by her daughter lying in bed. On questioning patient was not found vomiting and no seizures. But patient was found in urine and feces. With this background patient presented to [facility] ER on when daughter arrived home to find patient laying on the bed covered in urine and feces. She was obtunded and 911 was called. Upon arrival to the ER: * VS - 100.2, HR 104, RR 18, BP 125/55, O2 sat 95% on room air. * WBC 10.2, hgb 13.8, hct 41.6, platelets 304, neutrophils 91.3% * BUN 52, creatinine 3.39, glucose 177, sodium 141, potassium 5.1, chloride 103 , GFR 13 * Lactic acid 6.3 * TCK 3855, CK-MB 113.6, CK-MB 2.9% * CT head - unremarkable * CXR - minimal basilar atelectasis, no effusion or pneumothorax [facility] for severe dehydration. acute renal failure, rhabdomyolysis, lactic acidosis, possible UTI, sepsis. Overnight she developed tachycardia, hypotension and hypoxemia. She was transferred to ICU placed on pressor support. She was started on heparin drip per PE protocol. Quality Assurance Clerk was consulted for hypotension, septic shock. On non -rebreather with with oxygen saturation 90% and BP 79/50. Since admission she was intubated and placed on mech vent. Overnight events reviewed. No further fevers No rash No diarrhea Appetite low. Cough with no sputum. Breathing better. Awake and oriented. Feels better On nasal O2 4L. No change. No rash Stool liquid, Cdiff negative. No abd pain. Antibiotics Current Medications Medications (Trade) Dose Ordered Sig/Al Route Start Time Stop Time Status Last Admin (NS Flush) 2 ml UNSCH PRN IV FLUSH 08/15/17 02:00 09/04/17 07:49 (NS Flush) 2 ml BID IV FLUSH 08/15/17 09:00 09/08/17 22:56 (Narcan Inj) 0.4 mg UNSCH PRN IV PUSH 08/15/17 02:00 Miscellaneous Information Patient in critical care unit? Ass... Q361D .XX 08/15/17 06:15 08/15/17 06:15 (Vitamin B1) 100 mg DAILY PO 08/15/17 12:00 09/09/17 08:47 (Theragran) 1 tab DAILY PO 08/15/17 12:00 09/09/17 08:47 (Folate) 1 mg DAILY PO 08/15/17 12:00 09/09/17 08:47 (Aspirin Chew) 81 mg DAILY OG-TUBE 08/15/17 19:00 09/09/17 08:47 (D50w (Vial) Inj) 50 ml UNSCH PRN IV PUSH 08/16/17 08:00 09/09/17 08:31 (Glucagon Inj) 1 mg UNSCH PRN OTHER 08/16/17 08:00 (Trandate Inj) 20 mg Q4H PRN IV PUSH 08/21/17 17:15 08/21/17 21:51 (Tylenol 650 Mg/ 20 ml Liq) 650 mg Q6H PRN NG 08/24/17 13:00 (Lanoxin Liq) 0.125 mg DAILY PO 08/25/17 09:00 09/09/17 08:47 (Ferrous Sulfate Liq) 300 mg BID PO 08/24/17 21:00 09/09/17 08:47 (NS Flush) DAILY IV FLUSH 08/25/17 09:00 09/07/17 08:39 (NS Flush) UNSCH PRN IV FLUSH 08/24/17 17:45 09/04/17 07:49 Miscellaneous Information D/C ICU ELECTROLYTE ORDERS... UNSCH PRN .XX 08/25/17 15:00 Miscellaneous Information ICU - CALL ORDERING PHYSIC... UNSCH PRN .XX 08/25/17 15:00 Potassium Chloride 100 ml @ 25 mls/hr UNSCH PRN IV 08/25/17 15:00 08/29/17 16:51 (K-Lyte Cl Eff) 50 meq UNSCH PRN PO 08/25/17 15:00 Potassium Chloride 100 ml @ 50 mls/hr UNSCH PRN IV 08/25/17 15:00 09/01/17 20:35 Magnesium Sulfate 4 gm/Sodium Chloride 108 ml @ 54 mls/hr UNSCH PRN IV 08/25/17 15:00 Magnesium Sulfate 2 gm/Sodium Chloride 104 ml @ 52 mls/hr UNSCH PRN IV 08/25/17 15:00 (Mag-Ox) 800 mg UNSCH PRN PO 08/25/17 15:00 Sodium Phosphate 30 mmol/Sodium Chloride 260 ml @ 43.333 mls/ hr UNSCH PRN IV 08/25/17 15:00 (K-Phos) 2,000 mg UNSCH PRN PO 08/25/17 15:00 Potassium Phosphate 30 mmol/ Sodium Chloride 260 ml @ 43.333 mls/ hr UNSCH PRN IV 08/25/17 15:00 09/02/17 08:07 (Roxicodone) 5 mg Q6H PRN PO 08/27/17 13:00 (Morphine Inj) 1 mg Q4H PRN IV 08/27/17 11:00 09/08/17 03:22 Fluconazole/ Sodium Chloride 200 ml @ 100 mls/hr Q24H IV 08/28/17 08:00 09/09/17 08:00 Fluconazole/ Sodium Chloride 200 ml @ 100 mls/hr Q24H IV 08/28/17 10:00 09/08/17 10:49 (Benadryl) 25 mg Q4H PRN PO 08/29/17 11:30 09/07/17 23:14 (Lovenox Inj) 100 mg Q24H SQ 08/30/17 15:00 09/08/17 18:03 (Pill Splitter) 1 ea UNSCH PRN OTHER 08/30/17 13:00 09/01/17 09:12 (Lopressor) 50 mg Q12HR PO 09/03/17 09:00 09/09/17 08:47 (Catapres) 0.2 mg Q8H PO 09/04/17 08:00 09/09/17 08:47 (Magic Mouthwash Adult Liq) 5 ml ACHS SWISH-SWAL 09/05/17 12:00 09/08/17 21:00 (Cardizem) 90 mg Q6HR PO 09/05/17 12:00 09/09/17 00:00 (Duoneb Neb) 1 ampule Q6HR NEB NEB 09/06/17 16:00 09/08/17 21:24 (Deltasone) 10 mg DAILY PO 09/07/17 09:00 09/09/17 08:47 (NovoLOG SUPPLEMENTAL SCALE) 1 ACHS SLIDING SCALE SQ 09/06/17 17:00 (Pepcid) 20 mg BID NG 09/06/17 21:00 09/09/17 08:47 (Albuterol Neb) 2.5 mg Q2HR NEB PRN NEB 09/07/17 17:45 (Restoril) 30 mg HS PRN PO 09/08/17 21:00 09/08/17 22:54 (Mycelex) 10 mg 5 TIMES A DAY BUCCAL 09/08/17 18:00 09/09/17 06:00 ([place] Marquez Butler) 2 spray Q4H PRN EACH NARE 09/08/17 14:15 09/08/17 17:48 Lines PIV Line sites with no e.o infections. Past Medical History reviewed Allergies: Coded Allergies: No Known Allergies (Verified Allergy, Unknown, 08/15/17) Objective . Vital Signs Date Time Temp Pulse Resp B/P (MAP) Pulse Ox O2 Delivery O2 Flow Rate FiO2 09/11/17 10:00 60 09/11/17 10:00 60 115/61 (79) 100 09/11/17 09:00 84 141/63 (89) 84 09/11/17 08:49 96 Nasal Cannula 4.00 09/11/17 08:00 98 09/11/17 08:00 99.6 98 145/65 (91) 93 09/11/17 08:00 93 Nasal Cannula 4.00 09/11/17 07:00 117 164/82 (109) 96 09/11/17 06:00 96 09/11/17 04:00 101 140/75 (96) 99 09/11/17 04:00 92 Nasal Cannula 4.00 09/11/17 04:00 91 09/11/17 02:00 98 09/11/17 00:00 99 09/11/17 00:00 92 Nasal Cannula 4.00 09/11/17 00:00 98.2 103 123/59 (80) 76 09/10/17 22:16 93 Nasal Cannula 4.00 09/10/17 22:00 92 09/10/17 20:00 93 09/10/17 20:00 92 Nasal Cannula 4.00 09/10/17 20:00 98.4 93 159/68 (98) 76 09/10/17 18:00 97 09/10/17 17:00 100 09/10/17 16:00 98.3 80 136/80 (98) 93 09/10/17 16:00 94 Nasal Cannula 4.00 09/10/17 16:00 80 09/10/17 15:00 83 09/10/17 14:00 80 09/10/17 13:00 78 09/10/17 12:00 94 Nasal Cannula 4.00 09/10/17 12:00 76 09/10/17 12:00 98.0 76 147/82 (103) 95 09/10/17 11:05 95 . Laboratory Tests Test 09/10/17 06:30 09/11/17 08:34 White Blood Count 6.1 TH/MM3 5.6 TH/MM3 Red Blood Count 2.86 MIL/MM3 2.76 MIL/MM3 Hemoglobin 9.5 GM/DL 9.1 GM/DL Hematocrit 28.5 % 26.8 % Mean Corpuscular Volume 99.5 FL 96.8 FL Mean Corpuscular Hemoglobin 33.2 PG 32.8 PG Mean Corpuscular Hemoglobin Concent 33.3 % 33.9 % Red Cell Distribution Width 18.7 % 19.4 % Platelet Count 245 TH/MM3 234 TH/MM3 Mean Platelet Volume 7.8 FL 7.0 FL Neutrophils (%) (Auto) 83.3 % 81.0 % Lymphocytes (%) (Auto) 9.4 % 11.6 % Monocytes (%) (Auto) 6.7 % 6.7 % Eosinophils (%) (Auto) 0.4 % 0.4 % Basophils (%) (Auto) 0.2 % 0.3 % Neutrophils # (Auto) 5.1 TH/MM3 4.5 TH/MM3 Lymphocytes # (Auto) 0.6 TH/MM3 0.6 TH/MM3 Monocytes # (Auto) 0.4 TH/MM3 0.4 TH/MM3 Eosinophils # (Auto) 0.0 TH/MM3 0.0 TH/MM3 Basophils # (Auto) 0.0 TH/MM3 0.0 TH/MM3 CBC Comment AUTO DIFF DIFF FINAL Differential Total Cells Counted 100 Neutrophils % (Manual) 73 % Band Neutrophils % 8 % Lymphocytes % 11 % Monocytes % 8 % Neutrophils # (Manual) 4.9 TH/MM3 Nucleated Red Blood Cells 2 /100 WBC Differential Comment FINAL DIFF MANUAL Platelet Estimate NORMAL Platelet Morphology Comment NORMAL Polychromasia 2.1 % Laboratory Tests Test 09/10/17 06:30 09/11/17 08:34 Blood Urea Nitrogen 12 MG/DL 11 MG/DL Creatinine 0.33 MG/DL 0.31 MG/DL Random Glucose 78 MG/DL 96 MG/DL Total Protein 5.9 GM/DL Albumin 2.2 GM/DL Calcium Level 8.5 MG/DL 8.4 MG/DL Phosphorus Level 3.0 MG/DL 2.4 MG/DL Magnesium Level 1.8 MG/DL 1.9 MG/DL Alkaline Phosphatase 69 U/L Aspartate Amino Transf (AST/SGOT) 21 U/L Alanine Aminotransferase (ALT/SGPT) 25 U/L Total Bilirubin 0.5 MG/DL Sodium Level 140 MEQ/L 137 MEQ/L Potassium Level 3.6 MEQ/L 3.6 MEQ/L Chloride Level 104 MEQ/L 102 MEQ/L Carbon Dioxide Level 25.9 MEQ/L 26.0 MEQ/L Anion Gap 10 MEQ/L 9 MEQ/L Estimat Glomerular Filtration Rate 191 ML/MIN 205 ML/MIN Imaging Last Impressions Abdomen X-Ray 08/21/17 0600 Signed Impressions: Service Date/Time: July 03:35 - CONCLUSION: The bowel gas pattern remains fairly unremarkable. Jl Stanley MD Chest X-Ray 08/21/17 0000 Signed Impressions: Service Date/Time: July 19:39 - CONCLUSION: 1. Stable tubes and lines, as above. 2. Worsening bilateral lower lung zone pleural parenchymal disease. Douglas Jean MD Lumbar Puncture Fluoroscopy 08/15/17 0000 Signed Impressions: Service Date/Time: Tuesday, August 15, 2017 15:36 - CONCLUSION: 1. Uncomplicated fluoroscopically guided lumbar puncture. 2. Please note, requested opening pressures were not obtained due to technical difficulties. Shashi Moreno MD Brain MRI 08/15/17 0000 Signed Impressions: Service Date/Time: Tuesday, August 15, 2017 16:57 - CONCLUSION: 1. 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 2. Mild stenosis in the upper cervical spine as above. Esau Martell MD Abdomen/Pelvis CT 08/15/17 0000 Signed Impressions: Service Date/Time: Wednesday, August 16, 2017 00:25 - CONCLUSION: 1. Abnormal thickening of the descending colonic wall and the possibility of colitis should be entertained. There is also thickening of distal ileal wall which may be inflammatory as well. 2. There is mild anasarca with edema or inflammatory changes within the bilateral paracolic gutters extending down into the pelvis. 3. Small bilateral pleural effusions and bibasilar atelectasis and/or infiltrate. 4. Prominent ileocecal valve and possibility of lipoma at this site is not excluded. Josseline Villagomez MD Abdomen Ultrasound 08/15/17 0000 Signed Impressions: Service Date/Time: Tuesday, August 15, 2017 10:40 - CONCLUSION: 1. No abnormality is identified to explain the clinical symptoms. There is no hydronephrosis. 2. The liver is normal in size and echotexture. Adan Machuca MD Head CT [id number] Signed Impressions: Service Date/Time: July 22:54 - CONCLUSION: Unremarkable study. Josseline Villagomez MD Physical Exam GENERAL: Awake, following commands. NAD On nasal O2 SKIN: No rashes, ecchymoses or lesions. Warm and dry. HEAD: Atraumatic. Normocephalic. No temporal or scalp tenderness. EYES: Pupils equal round and reactive. Extraocular motions intact. No scleral icterus. No injection or drainage. Has mild scleral edema ENT: Moist oral mucosa, no nasal drainage NECK: Trachea midline. Supple, nontender, CARDIOVASCULAR: + murmur, no gallops, rub RESPIRATORY: Decreased BS at bases GASTROINTESTINAL: Abdomen soft, not distended, not tender, hypoactive bowels sounds, no guarding or rebound. MUSCULOSKELETAL: Extremities without clubbing. No calf tenderness. Negative Homans sign bilaterally. NEUROLOGICAL: Non focal Psych: Cooperative IV line sites with no e.o infection. Assessment & Plan Remarks Assessment and Plan Fungemia in setting of bilateral UE DVT will treat as Septic thrombophlebitis. C.Parapsilosis fungal septic thrombophlebitis. Sepsis. HCAP with effusions. Staph epidermidis: likely pseudobacteremia/contaminant. Specimen from old line, already removed. Acute resp failure on vent Acute metabolic encephalopathy: appears resolving. Alcohol abuse: at risk for withdrawal. Acute rhabdomyolysis: ? seizures. Acute renal failure: sepsis, prerenal, rhabdomyolysis. Colitis clinically and radiologically ; likely ischemic - C diff negative Recs: For low grade fevers monitor clinically if temps more than 100.8 F please draw set of blood cultures and send sputum if any for culture, UA. 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 (STOP DATE: 10/05/2017) C.parapsilosis susceptibilities and Diflucan S. Monitor LFTs and Qt interval while on Diflucan as on high dose. Monitor weekly labs: CBC with diff, CMP. Weekly EKG if QT prolonged reassess need for other agents causing QT prolongation and reconsult ID for alternative antifungal agents. WATCH FOR DRUG INTERACTIONS as pt on high dose diflucan. No need for FERNANDO chuck given fragile resp status. 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 juana RN and Juana Avery. dw patients daughter in room. Will sign off please call back if any change in clinical condition or questions. I will be OOT from 09/12/2017 to 09/21/2017 other ID MDs covering for me. Piedad Corea MD Sep 11, 2017 10:59
[2017-09-11] MEDS: INSULIN ASPART SUPPLEMENTAL SCALE SQ SCH ×3 (11:43→20:00)
[2017-09-11] MEDS: ICU - POTASSIUM PHOSPHATE MONOBASIC 500 MG TAB PO PRN ×2 (12:38→16:49)
[2017-09-11] MEDS: ENOXAPARIN SODIUM 100 MG/ML SYRINGE SQ SCH (14:26)
--- NOTE | 2017-09-11 19:46 | PD.CARD.PN ---
Subjective Subjective Remarks Patient was seen earlier today, late entry No events overnight Heart rates controlled Objective Medications Current Medications Medications (Trade) Dose Ordered Sig/Al Route Start Time Stop Time Status Last Admin (NS Flush) 2 ml UNSCH PRN IV FLUSH 08/15/17 02:00 09/04/17 07:49 (NS Flush) 2 ml BID IV FLUSH 08/15/17 09:00 09/11/17 08:37 (Narcan Inj) 0.4 mg UNSCH PRN IV PUSH 08/15/17 02:00 Miscellaneous Information Patient in critical care unit? Ass... Q361D .XX 08/15/17 06:15 08/15/17 06:15 (Vitamin B1) 100 mg DAILY PO 08/15/17 12:00 09/11/17 08:36 (Theragran) 1 tab DAILY PO 08/15/17 12:00 09/11/17 08:37 (Folate) 1 mg DAILY PO 08/15/17 12:00 09/11/17 08:37 (Aspirin Chew) 81 mg DAILY OG-TUBE 08/15/17 19:00 09/11/17 08:37 (D50w (Vial) Inj) 50 ml UNSCH PRN IV PUSH 08/16/17 08:00 09/09/17 08:31 (Glucagon Inj) 1 mg UNSCH PRN OTHER 08/16/17 08:00 (Trandate Inj) 20 mg Q4H PRN IV PUSH 08/21/17 17:15 08/21/17 21:51 (Tylenol 650 Mg/ 20 ml Liq) 650 mg Q6H PRN NG 08/24/17 13:00 09/09/17 20:17 (Lanoxin Liq) 0.125 mg DAILY PO 08/25/17 09:00 09/11/17 08:37 (Ferrous Sulfate Liq) 300 mg BID PO 08/24/17 21:00 09/11/17 08:37 (NS Flush) DAILY IV FLUSH 08/25/17 09:00 09/11/17 08:37 (NS Flush) UNSCH PRN IV FLUSH 08/24/17 17:45 09/04/17 07:49 Miscellaneous Information D/C ICU ELECTROLYTE ORDERS... UNSCH PRN .XX 08/25/17 15:00 Miscellaneous Information ICU - CALL ORDERING PHYSIC... UNSCH PRN .XX 08/25/17 15:00 Potassium Chloride 100 ml @ 25 mls/hr UNSCH PRN IV 08/25/17 15:00 08/29/17 16:51 (K-Lyte Cl Eff) 50 meq UNSCH PRN PO 08/25/17 15:00 Potassium Chloride 100 ml @ 50 mls/hr UNSCH PRN IV 08/25/17 15:00 09/01/17 20:35 Magnesium Sulfate 4 gm/Sodium Chloride 108 ml @ 54 mls/hr UNSCH PRN IV 08/25/17 15:00 Magnesium Sulfate 2 gm/Sodium Chloride 104 ml @ 52 mls/hr UNSCH PRN IV 08/25/17 15:00 (Mag-Ox) 800 mg UNSCH PRN PO 08/25/17 15:00 Sodium Phosphate 30 mmol/Sodium Chloride 260 ml @ 43.333 mls/ hr UNSCH PRN IV 08/25/17 15:00 (K-Phos) 2,000 mg UNSCH PRN PO 08/25/17 15:00 09/11/17 16:49 Potassium Phosphate 30 mmol/ Sodium Chloride 260 ml @ 43.333 mls/ hr UNSCH PRN IV 08/25/17 15:00 09/02/17 08:07 (Roxicodone) 5 mg Q6H PRN PO 08/27/17 13:00 (Morphine Inj) 1 mg Q4H PRN IV 08/27/17 11:00 09/08/17 03:22 (Lovenox Inj) 100 mg Q24H SQ 08/30/17 15:00 09/11/17 14:26 (Pill Splitter) 1 ea UNSCH PRN OTHER 08/30/17 13:00 09/01/17 09:12 (Lopressor) 50 mg Q12HR PO 09/03/17 09:00 09/11/17 08:36 (Catapres) 0.2 mg Q8H PO 09/04/17 08:00 09/11/17 16:49 (Cardizem) 90 mg Q6HR PO 09/05/17 12:00 09/11/17 17:28 (Pepcid) 20 mg BID NG 09/06/17 21:00 09/11/17 08:37 (Restoril) 30 mg HS PRN PO 09/08/17 21:00 09/10/17 20:29 (Mycelex) 10 mg 5 TIMES A DAY BUCCAL 09/08/17 18:00 09/11/17 17:28 ([place] Marquez [place]) 2 spray Q4H PRN EACH NARE 09/08/17 14:15 09/11/17 08:55 (Diflucan) 800 mg DAILY PO 09/09/17 10:00 10/05/17 09:59 09/11/17 08:36 (Atrovent Neb) 0.5 mg Q4HR NEB PRN NEB 09/09/17 12:45 (Deltasone) 5 mg DAILY PO 09/10/17 09:00 09/15/17 08:59 09/11/17 08:37 (Atrovent Neb) 0.5 mg Q6HR NEB NEB 09/10/17 16:00 09/11/17 15:25 (Imodium) 2 mg Q4H PRN PO 09/10/17 15:00 (Mucinex Er) 600 mg BID PO 09/10/17 21:00 09/11/17 08:36 (NovoLOG SUPPLEMENTAL SCALE) 1 Q4H SQ 09/11/17 12:00 Vital Signs / I&O Vital Signs Date Time Temp Pulse Resp B/P (MAP) Pulse Ox O2 Delivery O2 Flow Rate FiO2 09/11/17 18:00 63 09/11/17 18:00 63 105/56 (72) 99 09/11/17 17:00 97 144/76 (98) 87 09/11/17 16:00 98 Nasal Cannula 2.00 09/11/17 16:00 98.8 77 135/64 (87) 98 09/11/17 16:00 77 09/11/17 15:00 68 113/61 (78) 98 09/11/17 14:00 63 09/11/17 14:00 63 116/57 (76) 99 09/11/17 13:00 63 120/60 (80) 84 09/11/17 12:00 99.0 67 130/62 (84) 100 09/11/17 12:00 100 Nasal Cannula 4.00 09/11/17 12:00 67 09/11/17 11:00 61 114/58 (76) 92 09/11/17 11:00 61 09/11/17 10:00 60 09/11/17 10:00 60 115/61 (79) 100 09/11/17 09:00 84 141/63 (89) 84 09/11/17 08:49 96 Nasal Cannula 4.00 09/11/17 08:00 98 09/11/17 08:00 99.6 98 145/65 (91) 93 09/11/17 08:00 93 Nasal Cannula 4.00 09/11/17 07:00 117 164/82 (109) 96 09/11/17 06:00 96 09/11/17 04:00 101 140/75 (96) 99 09/11/17 04:00 92 Nasal Cannula 4.00 09/11/17 04:00 91 09/11/17 02:00 98 09/11/17 00:00 99 09/11/17 00:00 92 Nasal Cannula 4.00 09/11/17 00:00 98.2 103 123/59 (80) 76 09/10/17 22:16 93 Nasal Cannula 4.00 09/10/17 22:00 92 09/10/17 20:00 93 09/10/17 20:00 92 Nasal Cannula 4.00 09/10/17 20:00 98.4 93 159/68 (98) 76 I/O 09/10/17 09/10/17 09/10/17 09/11/17 09/11/17 09/11/17 07:00 15:00 23:00 07:00 15:00 23:00 Intake Total 287 ml 590 ml 840 ml 649 ml Output Total 1500 ml 900 ml 450 ml 1625 ml Balance -1213 ml -310 ml 390 ml -976 ml Intake Oral 250 ml 400 ml Tube Feeding 127 ml 240 ml 240 ml 249 ml Other 160 ml 100 ml 200 ml 400 ml Output Urine Total 1500 ml 900 ml 450 ml 1625 ml # Bowel Movements 1 2 2 3 Physical Exam GENERAL: NAD, AAOx3 SKIN: Warm and dry. HEAD: Atraumatic. Normocephalic. EYES: Pupils equal and round. No scleral icterus. No injection or drainage. ENT: No nasal bleeding or discharge. Mucous membranes pink and moist. NECK: Trachea midline. No JVD. CARDIOVASCULAR: Irregularly irregular RESPIRATORY: No accessory muscle use. Clear to auscultation. Breath sounds equal bilaterally. GASTROINTESTINAL: Abdomen soft, non-tender, nondistended. Hepatic and splenic margins not palpable. MUSCULOSKELETAL: Extremities without clubbing, cyanosis, or edema. No obvious deformities. NEUROLOGICAL: Awake and alert. No obvious cranial nerve deficits. Motor grossly within normal limits. Five out of 5 muscle strength in the arms and legs. Normal speech. PSYCHIATRIC: Appropriate mood and affect; insight and judgment normal. Laboratory Laboratory Tests Test 09/11/17 08:34 White Blood Count 5.6 TH/MM3 Red Blood Count 2.76 MIL/MM3 Hemoglobin 9.1 GM/DL Hematocrit 26.8 % Mean Corpuscular Volume 96.8 FL Mean Corpuscular Hemoglobin 32.8 PG Mean Corpuscular Hemoglobin Concent 33.9 % Red Cell Distribution Width 19.4 % Platelet Count 234 TH/MM3 Mean Platelet Volume 7.0 FL Neutrophils (%) (Auto) 81.0 % Lymphocytes (%) (Auto) 11.6 % Monocytes (%) (Auto) 6.7 % Eosinophils (%) (Auto) 0.4 % Basophils (%) (Auto) 0.3 % Neutrophils # (Auto) 4.5 TH/MM3 Lymphocytes # (Auto) 0.6 TH/MM3 Monocytes # (Auto) 0.4 TH/MM3 Eosinophils # (Auto) 0.0 TH/MM3 Basophils # (Auto) 0.0 TH/MM3 CBC Comment DIFF FINAL Differential Comment Blood Urea Nitrogen 11 MG/DL Creatinine 0.31 MG/DL Random Glucose 96 MG/DL Calcium Level 8.4 MG/DL Phosphorus Level 2.4 MG/DL Magnesium Level 1.9 MG/DL Sodium Level 137 MEQ/L Potassium Level 3.6 MEQ/L Chloride Level 102 MEQ/L Carbon Dioxide Level 26.0 MEQ/L Anion Gap 9 MEQ/L Estimat Glomerular Filtration Rate 205 ML/MIN Imaging Last 24 hours Impressions Chest X-Ray 09/11/17 0600 Signed Impressions: Service Date/Time: August 08:51 - CONCLUSION: 1. Improved bilateral airspace disease since September 10. Feeding tube enters stomach. Esau Martell MD Assessment and Plan Problem List: (1) Atrial fibrillation ICD Codes: I48.91 - Unspecified atrial fibrillation (2) Fungemia ICD Codes: B49 - Unspecified mycosis (3) Weakness ICD Codes: R53.1 - Weakness (4) Pain ICD Codes: R52 - Pain, unspecified (5) Hypotension ICD Codes: I95.9 - Hypotension, unspecified (6) Altered mental status ICD Codes: R41.82 - Altered mental status, unspecified (7) UTI (urinary tract infection) ICD Codes: N39.0 - Urinary tract infection, site not specified (8) Tachycardia ICD Codes: R00.0 - Tachycardia, unspecified (9) Rhabdomyolysis ICD Codes: M62.82 - Rhabdomyolysis (10) Dyspnea ICD Codes: R06.00 - Dyspnea, unspecified (11) Anxiety ICD Codes: F41.9 - Anxiety disorder, unspecified (12) Acute renal failure ICD Codes: N17.9 - Acute kidney failure, unspecified (13) Septic shock ICD Codes: A41.9 - Sepsis, unspecified organism; R65.21 - Severe sepsis with septic shock (14) Acute respiratory failure ICD Codes: J96.00 - Acute respiratory failure, unspecified whether with hypoxia or hypercapnia (15) Alcohol abuse ICD Codes: F10.10 - Alcohol abuse, uncomplicated Assessment and Plan 1) AFib with RVR Now controlled on Digoxin, metoprolol tartrate and Cardizem If further episodes, may need to increase Digoxin For now stable, will continue to follow 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
[2017-09-11] MEDS: TEMAZEPAM 15 MG CAP PO PRN (20:55)
[2017-09-12] VITALS (22 sets, daily range): BP systolic 113–140; BP diastolic 57–96; PULSE 61–113; TEMP 97.2–99.4; O2SAT 85–99
[2017-09-12] MEDS: DILTIAZEM HCL 90 MG TAB PO SCH ×4 (01:27→17:20)
[2017-09-12] MEDS: RESP: IPRATROPIUM 0.5 MG/2.5 ML NEB NEB SCH ×4 (03:05→20:28)
[2017-09-12] MEDS: INSULIN ASPART SUPPLEMENTAL SCALE SQ SCH ×6 (04:00→20:00)
[2017-09-12] MEDS: CLOTRIMAZOLE 10 MG TROCHE BUCCAL SCH ×5 (05:52→21:33)
[2017-09-12] MEDS: NYSTAT/DIPHENHY/LIDO MOUTHWASH (Adult) 120ML SWISH-SWAL SCH ×4 (08:09→21:00)
[2017-09-12] MEDS: SODIUM CHLORIDE 0.9% FLUSH 10 ML FLUSH IV FLUSH SCH ×3 (08:09→20:24)
[2017-09-12] MEDS: cloNIDine HCL 0.2 MG TAB PO SCH ×3 (08:09→16:24)
[2017-09-12] MEDS: SODIUM CHLORIDE 0.9% FLUSH 10 ML FLUSH IV FLUSH PRN ×2 (08:09)
[2017-09-12] MEDS: predniSONE 5 MG TAB PO SCH (08:10)
[2017-09-12] MEDS: ASPIRIN 81 MG CHEW TAB OG-TUBE SCH (08:10)
[2017-09-12] MEDS: FAMOTIDINE 20 MG TAB NG SCH ×2 (08:10→20:24)
[2017-09-12] MEDS: FLUCONAZOLE 200 MG TAB PO SCH (08:10)
[2017-09-12] MEDS: FERROUS SULFATE 300 MG /5ML UDC PO SCH ×2 (08:10→20:24)
[2017-09-12] MEDS: FOLIC ACID 1 MG TAB PO SCH (08:10)
[2017-09-12] MEDS: DIGOXIN SOLUTION 0.125 MG/2.5 ML CUP PO SCH (08:11)
[2017-09-12] MEDS: guaiFENesin E.R. 600 MG TAB PO SCH ×2 (08:11→20:24)
[2017-09-12] MEDS: THIAMINE HCL 100 MG TAB PO SCH (08:11)
[2017-09-12] MEDS: MULTIVITAMIN TAB PO SCH (08:11)
[2017-09-12] MEDS: METOPROLOL TARTRATE 50 MG TAB PO SCH ×2 (08:11→20:24)
[2017-09-12 10:15] LABS: AST (GOT) 25 U/L (15-37); BICARBONATE 21.1 MEQ/L (21.0-32.0); BLOOD UREA NITROGEN 15 MG/DL (7-18); CALCIUM 8.4 MG/DL (8.5-10.1); CHLORIDE 104 MEQ/L (98-107); GLOMERULAR FILTRATION RATE 153 ML/MIN (>89); GLUCOSE,RANDOM 121 MG/DL (74-106); SODIUM (NA) 137 MEQ/L (136-145)
[2017-09-12 10:16] LABS: ALT (GPT) 25 U/L (10-53); PHOSPHORUS 3.1 MG/DL (2.5-4.9)
[2017-09-12 10:18] LABS: ALKALINE PHOSPHATASE 65 U/L (45-117); TOTAL BILIRUBIN ADULT 0.3 MG/DL (0.2-1.0); TOTAL PROTEIN 5.9 GM/DL (6.4-8.2)
[2017-09-12 11:13] LABS: AUTOMATED NEUTROPHIL # 5.8 TH/MM3 (1.8-7.7); BASOPHIL % 0.4 % (0.0-2.0); EOSINOPHIL % 0.3 % (0.0-4.0); HEMATOCRIT 24.3 % (35.0-46.0); HEMOGLOBIN 8.1 GM/DL (11.6-15.3); LYMPH % 8.1 % (9.0-44.0); LYMPHOCYTE # 0.5 TH/MM3 (1.0-4.8); MEAN CELL VOLUME 98.4 FL (80.0-100.0); MEAN CORPUSCULAR HEMOGLOBIN 32.7 PG (27.0-34.0); MEAN CORPUSCULAR HGB CONC 33.2 % (32.0-36.0); MEAN PLATELET VOLUME 7.4 FL (7.0-11.0); MONOCYTE # 0.3 TH/MM3 (0-0.9); NEUT % 86.2 % (16.0-70.0); PLATELET COUNT 209 TH/MM3 (150-450); RED BLOOD COUNT 2.47 MIL/MM3 (4.00-5.30); RED CELL DISTRIBUTION WIDTH 18.2 % (11.6-17.2); WHITE BLOOD COUNT 6.8 TH/MM3 (4.0-11.0)
--- NOTE | 2017-09-12 13:02 | PD.CARD.PN ---
Subjective Subjective Remarks No events overnight Heart rates controlled Objective Medications Current Medications Medications (Trade) Dose Ordered Sig/Al Route Start Time Stop Time Status Last Admin (NS Flush) 2 ml UNSCH PRN IV FLUSH 08/15/17 02:00 09/12/17 08:09 (NS Flush) 2 ml BID IV FLUSH 08/15/17 09:00 09/12/17 08:09 (Narcan Inj) 0.4 mg UNSCH PRN IV PUSH 08/15/17 02:00 Miscellaneous Information Patient in critical care unit? Ass... Q361D .XX 08/15/17 06:15 08/15/17 06:15 (Vitamin B1) 100 mg DAILY PO 08/15/17 12:00 09/12/17 08:11 (Theragran) 1 tab DAILY PO 08/15/17 12:00 09/12/17 08:11 (Folate) 1 mg DAILY PO 08/15/17 12:00 09/12/17 08:10 (Aspirin Chew) 81 mg DAILY OG-TUBE 08/15/17 19:00 09/12/17 08:10 (D50w (Vial) Inj) 50 ml UNSCH PRN IV PUSH 08/16/17 08:00 09/09/17 08:31 (Glucagon Inj) 1 mg UNSCH PRN OTHER 08/16/17 08:00 (Trandate Inj) 20 mg Q4H PRN IV PUSH 08/21/17 17:15 08/21/17 21:51 (Tylenol 650 Mg/ 20 ml Liq) 650 mg Q6H PRN NG 08/24/17 13:00 09/09/17 20:17 (Lanoxin Liq) 0.125 mg DAILY PO 08/25/17 09:00 09/12/17 08:11 (Ferrous Sulfate Liq) 300 mg BID PO 08/24/17 21:00 09/12/17 08:10 (NS Flush) DAILY IV FLUSH 08/25/17 09:00 09/11/17 08:37 (NS Flush) UNSCH PRN IV FLUSH 08/24/17 17:45 09/04/17 07:49 Miscellaneous Information D/C ICU ELECTROLYTE ORDERS... UNSCH PRN .XX 08/25/17 15:00 Miscellaneous Information ICU - CALL ORDERING PHYSIC... UNSCH PRN .XX 08/25/17 15:00 Potassium Chloride 100 ml @ 25 mls/hr UNSCH PRN IV 08/25/17 15:00 08/29/17 16:51 (K-Lyte Cl Eff) 50 meq UNSCH PRN PO 08/25/17 15:00 Potassium Chloride 100 ml @ 50 mls/hr UNSCH PRN IV 08/25/17 15:00 09/01/17 20:35 Magnesium Sulfate 4 gm/Sodium Chloride 108 ml @ 54 mls/hr UNSCH PRN IV 08/25/17 15:00 Magnesium Sulfate 2 gm/Sodium Chloride 104 ml @ 52 mls/hr UNSCH PRN IV 08/25/17 15:00 (Mag-Ox) 800 mg UNSCH PRN PO 08/25/17 15:00 Sodium Phosphate 30 mmol/Sodium Chloride 260 ml @ 43.333 mls/ hr UNSCH PRN IV 08/25/17 15:00 (K-Phos) 2,000 mg UNSCH PRN PO 08/25/17 15:00 09/11/17 16:49 Potassium Phosphate 30 mmol/ Sodium Chloride 260 ml @ 43.333 mls/ hr UNSCH PRN IV 08/25/17 15:00 09/02/17 08:07 (Roxicodone) 5 mg Q6H PRN PO 08/27/17 13:00 (Morphine Inj) 1 mg Q4H PRN IV 08/27/17 11:00 09/08/17 03:22 (Lovenox Inj) 100 mg Q24H SQ 08/30/17 15:00 09/11/17 14:26 (Pill Splitter) 1 ea UNSCH PRN OTHER 08/30/17 13:00 09/01/17 09:12 (Lopressor) 50 mg Q12HR PO 09/03/17 09:00 09/12/17 08:11 (Catapres) 0.2 mg Q8H PO 09/04/17 08:00 09/12/17 08:09 (Magic Mouthwash Adult Liq) 5 ml ACHS SWISH-SWAL 09/05/17 12:00 09/12/17 11:54 (Cardizem) 90 mg Q6HR PO 09/05/17 12:00 09/12/17 11:54 (Pepcid) 20 mg BID NG 09/06/17 21:00 09/12/17 08:10 (Restoril) 30 mg HS PRN PO 09/08/17 21:00 09/11/17 20:55 (Mycelex) 10 mg 5 TIMES A DAY BUCCAL 09/08/17 18:00 09/12/17 10:46 (A[place]) 2 spray Q4H PRN EACH NARE 09/08/17 14:15 09/11/17 08:55 (Diflucan) 800 mg DAILY PO 09/09/17 10:00 10/05/17 09:59 09/12/17 08:10 (Atrovent Neb) 0.5 mg Q4HR NEB PRN NEB 09/09/17 12:45 (Deltasone) 5 mg DAILY PO 09/10/17 09:00 09/15/17 08:59 09/12/17 08:10 (Atrovent Neb) 0.5 mg Q6HR NEB NEB 09/10/17 16:00 09/12/17 08:34 (Imodium) 2 mg Q4H PRN PO 09/10/17 15:00 (Mucinex Er) 600 mg BID PO 09/10/17 21:00 09/12/17 08:11 (NovoLOG SUPPLEMENTAL SCALE) 1 Q4H SQ 09/11/17 12:00 Vital Signs / I&O Vital Signs Date Time Temp Pulse Resp B/P (MAP) Pulse Ox O2 Delivery O2 Flow Rate FiO2 09/12/17 12:00 90 09/12/17 12:00 96 Nasal Cannula 3.00 09/12/17 12:00 97.3 90 113/69 (84) 96 09/12/17 11:00 76 118/62 (80) 95 09/12/17 10:00 61 09/12/17 10:00 69 121/70 (87) 91 09/12/17 09:00 64 115/69 (84) 94 09/12/17 08:39 93 Nasal Cannula 5.00 09/12/17 08:00 96 Nasal Cannula 3.00 09/12/17 08:00 98.8 91 122/73 (89) 96 09/12/17 08:00 91 09/12/17 07:00 86 117/63 (81) 90 09/12/17 06:00 84 3/16/18 04:00 80 09/12/17 04:00 76 114/58 (76) 97 09/12/17 04:00 92 Nasal Cannula 4.00 09/12/17 02:00 85 09/12/17 00:00 84 09/12/17 00:00 97.5 91 118/69 (85) 95 09/12/17 00:00 92 Nasal Cannula 4.00 09/11/17 22:00 75 09/11/17 20:38 Nasal Cannula 3.00 09/11/17 20:00 88 09/11/17 20:00 98.5 94 132/71 (91) 86 09/11/17 20:00 92 Nasal Cannula 4.00 09/11/17 18:00 63 09/11/17 18:00 63 105/56 (72) 99 09/11/17 17:00 97 144/76 (98) 87 09/11/17 16:00 98 Nasal Cannula 2.00 09/11/17 16:00 98.8 77 135/64 (87) 98 09/11/17 16:00 77 09/11/17 15:00 68 113/61 (78) 98 09/11/17 14:00 63 09/11/17 14:00 63 116/57 (76) 99 I/O 09/11/17 09/11/17 09/11/17 09/12/17 09/12/17 09/12/17 06:59 14:59 22:59 06:59 14:59 22:59 Intake Total 840 ml 649 ml 1185 ml Output Total 450 ml 1625 ml 1100 ml Balance 390 ml -976 ml 85 ml Intake Oral 400 ml 200 ml Tube Feeding 240 ml 249 ml 535 ml Other 200 ml 400 ml 450 ml Output Urine Total 450 ml 1625 ml 1100 ml # Bowel Movements 2 3 1 Physical Exam GENERAL: NAD, AAOx3 SKIN: Warm and dry. HEAD: Atraumatic. Normocephalic. EYES: Pupils equal and round. No scleral icterus. No injection or drainage. ENT: No nasal bleeding or discharge. Mucous membranes pink and moist. NECK: Trachea midline. No JVD. CARDIOVASCULAR: Irregularly irregular RESPIRATORY: No accessory muscle use. Clear to auscultation. Breath sounds equal bilaterally. GASTROINTESTINAL: Abdomen soft, non-tender, nondistended. Hepatic and splenic margins not palpable. MUSCULOSKELETAL: Extremities without clubbing, cyanosis, or edema. No obvious deformities. NEUROLOGICAL: Awake and alert. No obvious cranial nerve deficits. Motor grossly within normal limits. Five out of 5 muscle strength in the arms and legs. Normal speech. PSYCHIATRIC: Appropriate mood and affect; insight and judgment normal. Laboratory Laboratory Tests Test 09/12/17 09:47 09/12/17 10:45 Blood Urea Nitrogen 15 MG/DL Creatinine 0.40 MG/DL Random Glucose 121 MG/DL Total Protein 5.9 GM/DL Albumin 2.0 GM/DL Calcium Level 8.4 MG/DL Phosphorus Level 3.1 MG/DL Magnesium Level 2.0 MG/DL Alkaline Phosphatase 65 U/L Aspartate Amino Transf (AST/SGOT) 25 U/L Alanine Aminotransferase (ALT/SGPT) 25 U/L Total Bilirubin 0.3 MG/DL Sodium Level 137 MEQ/L Potassium Level 4.3 MEQ/L Chloride Level 104 MEQ/L Carbon Dioxide Level 21.1 MEQ/L Anion Gap 12 MEQ/L Estimat Glomerular Filtration Rate 153 ML/MIN White Blood Count 6.8 TH/MM3 Red Blood Count 2.47 MIL/MM3 Hemoglobin 8.1 GM/DL Hematocrit 24.3 % Mean Corpuscular Volume 98.4 FL Mean Corpuscular Hemoglobin 32.7 PG Mean Corpuscular Hemoglobin Concent 33.2 % Red Cell Distribution Width 18.2 % Platelet Count 209 TH/MM3 Mean Platelet Volume 7.4 FL Neutrophils (%) (Auto) 86.2 % Lymphocytes (%) (Auto) 8.1 % Monocytes (%) (Auto) 5.0 % Eosinophils (%) (Auto) 0.3 % Basophils (%) (Auto) 0.4 % Neutrophils # (Auto) 5.8 TH/MM3 Lymphocytes # (Auto) 0.5 TH/MM3 Monocytes # (Auto) 0.3 TH/MM3 Eosinophils # (Auto) 0.0 TH/MM3 Basophils # (Auto) 0.0 TH/MM3 CBC Comment DIFF FINAL Differential Comment Assessment and Plan Problem List: (1) Atrial fibrillation ICD Codes: I48.91 - Unspecified atrial fibrillation (2) Fungemia ICD Codes: B49 - Unspecified mycosis (3) Weakness ICD Codes: R53.1 - Weakness (4) Pain ICD Codes: R52 - Pain, unspecified (5) Hypotension ICD Codes: I95.9 - Hypotension, unspecified (6) Altered mental status ICD Codes: R41.82 - Altered mental status, unspecified (7) UTI (urinary tract infection) ICD Codes: N39.0 - Urinary tract infection, site not specified (8) Tachycardia ICD Codes: R00.0 - Tachycardia, unspecified (9) Rhabdomyolysis ICD Codes: M62.82 - Rhabdomyolysis (10) Dyspnea ICD Codes: R06.00 - Dyspnea, unspecified (11) Anxiety ICD Codes: F41.9 - Anxiety disorder, unspecified (12) Acute renal failure ICD Codes: N17.9 - Acute kidney failure, unspecified (13) Septic shock ICD Codes: A41.9 - Sepsis, unspecified organism; R65.21 - Severe sepsis with septic shock (14) Acute respiratory failure ICD Codes: J96.00 - Acute respiratory failure, unspecified whether with hypoxia or hypercapnia (15) Alcohol abuse ICD Codes: F10.10 - Alcohol abuse, uncomplicated Assessment and Plan 1) AFib with RVR Now controlled on Digoxin, metoprolol tartrate and Cardizem If further episodes, may need to increase Digoxin For now stable, will continue to follow 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
[2017-09-12] MEDS: RESP: IPRATROPIUM 0.5 MG/2.5 ML NEB NEB PRN ×2 (13:38→21:01)
[2017-09-12] MEDS: ENOXAPARIN SODIUM 100 MG/ML SYRINGE SQ SCH (14:31)
--- NOTE | 2017-09-12 14:51 | HHI.PR ---
Subjective Remarks Follow-up for multiple medical conditions in assessment and plan Patient's daughter and nurse at the bedside during the interview. Patient states she feels anxious. Her daughter is asking for antianxiety medication said that her mother is very anxious but makes her short of breath. Patient complains of shortness of breath but states that is due to anxiety. She also had decreased oral intake secondary to pain or burning sensation in her mouth that is improving. She was able to tolerate soup this morning. Otherwise patient has no other complaints and denies any pain. Denies any nausea or vomiting or abdominal pain. Objective Vitals Vital Signs Date Time Temp Pulse Resp B/P (MAP) Pulse Ox O2 Delivery O2 Flow Rate FiO2 09/12/17 14:00 101 09/12/17 12:00 90 09/12/17 12:00 96 Nasal Cannula 3.00 09/12/17 12:00 97.3 90 113/69 (84) 96 09/12/17 11:00 76 118/62 (80) 95 09/12/17 10:00 61 09/12/17 10:00 69 121/70 (87) 91 09/12/17 09:00 64 115/69 (84) 94 09/12/17 08:39 93 Nasal Cannula 5.00 09/12/17 08:00 96 Nasal Cannula 3.00 09/12/17 08:00 98.8 91 122/73 (89) 96 09/12/17 08:00 91 09/12/17 07:00 86 117/63 (81) 90 09/12/17 06:00 84 09/12/17 04:00 80 09/12/17 04:00 76 114/58 (76) 97 09/12/17 04:00 92 Nasal Cannula 4.00 09/12/17 02:00 85 09/12/17 00:00 84 09/12/17 00:00 97.5 91 118/69 (85) 95 09/12/17 00:00 92 Nasal Cannula 4.00 09/11/17 22:00 75 09/11/17 20:38 Nasal Cannula 3.00 09/11/17 20:00 88 09/11/17 20:00 98.5 94 132/71 (91) 86 09/11/17 20:00 92 Nasal Cannula 4.00 09/11/17 18:00 63 09/11/17 18:00 63 105/56 (72) 99 09/11/17 17:00 97 144/76 (98) 87 09/11/17 16:00 98 Nasal Cannula 2.00 09/11/17 16:00 98.8 77 135/64 (87) 98 09/11/17 16:00 77 09/11/17 15:00 68 113/61 (78) 98 I/O 09/11/17 09/11/17 09/11/17 09/12/17 09/12/17 09/12/17 07:00 15:00 23:00 07:00 15:00 23:00 Intake Total 840 ml 649 ml 1185 ml Output Total 450 ml 1625 ml 1100 ml Balance 390 ml -976 ml 85 ml Intake Oral 400 ml 200 ml Tube Feeding 240 ml 249 ml 535 ml Other 200 ml 400 ml 450 ml Output Urine Total 450 ml 1625 ml 1100 ml # Bowel Movements 2 3 1 Result Diagram: 09/12/17 1045 09/12/17 0947 Objective Remarks GENERAL: 82-year-old female currently resting in bed on nasal cannula with increased respiration secondary to anxiety NG tube in place. CARDIOVASCULAR: IRR. S1, S2 no S4. Without murmur RESPIRATORY: Diminished breath sounds in the bases bilaterally. No wheezing, rales or rhonchi appreciated. GASTROINTESTINAL: Abdomen soft, non-tender, nondistended. Bowel sounds hypoactive but present. No guarding or rigidity MUSCULOSKELETAL: Trace edema, more prominent LUE. NEURO: Awake alert oriented 3, conversant. Following commands, no obvious focal deficits Medications and IVs Current Medications Etomidate (Amidate Inj) 40 mg STK-MED ONCE .ROUTE ; Start 08/14/17 at 22:38; Stop 08/14/17 at 22:52; Status DC Succinylcholine Chloride (Quelicin Inj) 200 mg STK-MED ONCE .ROUTE ; Start 08/14 at 22:38; Stop 08/14/17 at 22:52; Status DC Etomidate (Amidate Inj) 40 mg STK-MED ONCE .ROUTE ; Start 08/14/17 at 22:39; Stop 08/14/17 at 22:52; Status DC Sodium Chloride 1,000 ml @ 999 mls/hr BOLUS ONCE IV Last administered on 08/15at 00:27; Start 08/15/17 at 00:15; Stop 08/15/17 at 01:15; Status DC Ceftriaxone Sodium 1000 mg/ Sodium Chloride 100 ml @ 200 mls/hr ONCE ONCE IV Last administered on 08/15/17at 00:27; Start 08/15/17 at 00:15; Stop 08/15/17 at 00:44; Status DC Metronidazole 100 ml @ 100 mls/hr ONCE ONCE IV Last administered on at 01:26; Start 08/15/17 at 00:15; Stop 08/15/17 at 01:14; Status DC Sodium Chloride 1,000 ml @ 999 mls/hr BOLUS ONCE IV Last administered on 08/15at 01:42; Start 08/15/17 at 01:45; Stop 08/15/17 at 02:45; Status DC Sodium Chloride 1,000 ml @ 100 mls/hr Q10H IV Last administered on 08/15/17at 02:57; Start 08/15/17 at 01:58; Stop 08/15/17 at 02:58; Status DC Sodium Chloride (NS Flush) 2 ml UNSCH PRN IV FLUSH FLUSH AFTER USING IV ACCESS Last administered on 09/12/17at 08:09; Start 08/15/17 at 02:00 Sodium Chloride (NS Flush) 2 ml BID IV FLUSH Last administered on 09/12/17at 08: 09; Start 08/15/17 at 09:00 Naloxone HCl (Narcan Inj) 0.4 mg UNSCH PRN IV PUSH SEE LABEL COMMENTS; Start at 02:00 Sodium Chloride 1,000 ml @ 999 mls/hr BOLUS ONCE IV Last administered on 08/15at 02:32; Start 08/15/17 at 02:00; Stop 08/15/17 at 03:00; Status DC Metronidazole 100 ml @ 100 mls/hr Q6H IV Last administered on 08/29/17at 08:52; Start 08/15/17 at 08:00; Stop 08/29/17 at 12:02; Status DC Thiamine HCl (Thiamine Inj) 100 mg ONCE ONCE IM Last administered on at 02:57; Start 08/15/17 at 02:00; Stop 08/15/17 at 02:04; Status DC Thiamine HCl 100 mg/Sodium Chloride 101 ml @ 101 mls/hr DAILY IV Last administered on 08/15/17at 09:44; Start 08/15/17 at 09:00; Stop 08/15/17 at 10:23 ; Status DC Pharmacy Profile Note 0 ml @ 0 mls/hr UNSCH OTHER ; Start 08/15/17 at 02:15; Stop 08/18/17 at 08:00; Status DC Piperacillin Sod/ Tazobactam Sod 50 ml @ 200 mls/hr Q8H IV ; Start 08/15/17 at 03:00; Stop 08/15/17 at 03:00; Status DC Vancomycin HCl 1000 mg/Sodium Chloride 250 ml @ 250 mls/hr ONCE ONCE IV Last administered on 08/15/17at 03:44; Start 08/15/17 at 03:00; Stop 08/15/17 at 03:59 ; Status DC Ampicillin Sodium 2000 mg/Sodium Chloride 100 ml @ 400 mls/hr Q4H IV Last administered on 08/15/17at 03:21; Start 08/15/17 at 03:00; Stop 08/15/17 at 07:09 ; Status DC Ceftriaxone Sodium 2000 mg/ Sodium Chloride 100 ml @ 200 mls/hr Q12H IV ; Start 08/15/17 at 13:00; Stop 08/15/17 at 13:00; Status DC Ceftriaxone Sodium 1000 mg/ Sodium Chloride 100 ml @ 200 mls/hr ONCE ONCE IV Last administered on 08/30/17at 06:23; Start 08/15/17 at 04:00; Stop 08/15/17 at 04:29; Status DC Sodium Bicarbonate 100 meq/Dextrose 1,100 ml @ 100 mls/hr Q11H IV Last administered on 08/18/17at 03:38; Start 08/15/17 at 03:00; Stop 08/18/17 at 07:56 ; Status DC Atropine Sulfate (Atropine Inj) 1 mg STK-MED ONCE .ROUTE ; Start 08/15/17 at 05: 34; Stop 08/15/17 at 05:35; Status DC Epinephrine HCl (EPINEPHrine (1:10,000) INJ) 1 mg STK-MED ONCE .ROUTE ; Start at 05:35; Stop 08/15/17 at 05:36; Status DC Sodium Bicarbonate (Sodium Bicarbonate 8.4% Inj) 50 meq ONCE ONCE IV PUSH Last administered on 08/15/17at 06:05; Start 08/15/17 at 06:00; Stop 08/15/17 at 06:01; Status DC Sodium Chloride 1,000 ml @ 999 mls/hr BOLUS ONCE IV Last administered on 08/15at 06:06; Start 08/15/17 at 06:00; Stop 08/15/17 at 07:00; Status DC Hydrocortisone Sodium Succinate (SoluCORTEF INJ) 100 mg Q8HR IV PUSH Last administered on 08/15/17at 06:05; Start 08/15/17 at 06:00; Stop 08/15/17 at 10:41 ; Status DC Norepinephrine Bitartrate 250 ml @ 7.5 mls/hr TITRATE PRN IV Blood pressure management; Start 08/15/17 at 06:00; Stop 08/15/17 at 07:31; Status DC Terbutaline Sulfate (Brethine Inj) 1 mg UNSCH PRN SQ For Extravasation; Start 08/15/17 at 06:00; Stop 08/15/17 at 08:35; Status DC Heparin Sodium (Porcine) (Heparin Inj) 3,000 units ONCE ONCE IV PUSH ; Start at 06:00; Stop 08/15/17 at 06:12; Status DC Heparin Sodium/ Dextrose 250 ml @ 9 mls/hr TITRATE PRN IV Coagulation Management; Start 08/15/17 at 06:00; Stop 08/15/17 at 10:41; Status DC Miscellaneous Information Patient in critical care unit? Ass... [id number] .XX Last administered on 08/15/17at 06:15; Start 08/15/17 at 06:15 Chlorhexidine Gluconate (Chlorhexidine 2% Cloth) 3 pack DAILY@04 TOPICAL Last administered on 08/20/17at 04:00; Start 08/16/17 at 04:00; Stop 08/20/17 at 04:01 ; Status DC Chlorhexidine Gluconate (Chlorhexidine 2% Cloth) 3 pack UNSCH PRN TOPICAL HYGIENIC CARE; Start 08/15/17 at 06:15; Stop 08/20/17 at 06:14; Status DC Flumazenil (Romazicon Inj) 0.2 mg Q1M PRN IV PUSH SEE LABEL COMMENTS; Start at 06:30; Stop 09/06/17 at 13:04; Status DC Lorazepam (Ativan) 1 mg Q4H PRN PO CIWA 8 - 10; Start 08/15/17 at 06:30; Stop 08/16/17 at 07:59; Status DC Lorazepam (Ativan Inj) 1 mg Q4H PRN IV PUSH CIWA 8 - 10 Last administered on at 13:10; Start 08/15/17 at 06:30; Stop 08/16/17 at 07:59; Status DC Lorazepam (Ativan) 2 mg Q2H PRN PO CIWA 11-14; Start 08/15/17 at 06:30; Stop at 07:59; Status DC Lorazepam (Ativan Inj) 2 mg Q2H PRN IV PUSH CIWA 11-14; Start 08/15/17 at 06:30 ; Stop 08/16/17 at 07:59; Status DC Lorazepam (Ativan Inj) 2 mg Q1H PRN IV PUSH CIWA 15-20; Start 08/15/17 at 06:30 ; Stop 08/16/17 at 07:59; Status DC Lorazepam (Ativan Inj) 2 mg Q15M PRN IV PUSH CIWA > 20; Start 08/15/17 at 06:30 ; Stop 08/16/17 at 07:59; Status DC Ipratropium [place] (Atrovent Neb) 0.5 mg Q2HR NEB PRN NEB wheezing Last administered on 08/24/17at 03:57; Start 08/15/17 at 06:30; Stop 08/24/17 at 17:11 ; Status DC Ceftriaxone Sodium 1000 mg/ Sodium Chloride 100 ml @ 200 mls/hr Q24H IV ; Start 08/16/17 at 00:00; Stop 08/16/17 at 00:00; Status DC Norepinephrine Bitartrate 250 ml @ 7.5 mls/hr TITRATE PRN IV Blood pressure management Last administered on 08/16/17at 22:50; Start 08/15/17 at 07:30; Stop 08/18/17 at 07:56; Status DC Terbutaline Sulfate (Brethine Inj) 1 mg UNSCH PRN SQ For Extravasation; Start 08/15/17 at 07:30; Stop 08/15/17 at 09:15; Status DC Etomidate (Amidate Inj) 20 mg ONCE ONCE IV PUSH Last administered on at 07:30; Start 08/15/17 at 07:30; Stop 08/15/17 at 07:32; Status DC Fentanyl Citrate 250 ml @ 5 mls/hr TITRATE PRN IV SEDATION Last administered on 08/25/17at 04:05; Start 08/15/17 at 07:30; Stop 08/26/17 at 08:17; Status DC Etomidate (Amidate Inj) 40 mg STK-MED ONCE .ROUTE Last administered on at 07:28; Start 08/15/17 at 07:28; Stop 08/15/17 at 07:29; Status DC Fentanyl Citrate (fentaNYL INJ) 100 mcg STK-MED ONCE .ROUTE Last administered on 08/15/17at 07:28; Start 08/15/17 at 07:28; Stop 08/15/17 at 07:29; Status DC Fentanyl Citrate (fentaNYL INJ) 100 mcg STK-MED ONCE .ROUTE Last administered on 08/15/17at 07:37; Start 08/15/17 at 07:37; Stop 08/15/17 at 07:38; Status DC Phenylephrine HCl 40 mg/Dextrose 500 ml @ 30 mls/hr TITRATE PRN IV Blood pressure management; Start 08/15/17 at 10:00; Stop 08/16/17 at 07:59; Status DC Terbutaline Sulfate (Brethine Inj) 1 mg UNSCH PRN SQ For Extravasation; Start 08/15/17 at 09:00; Status Cancel Dextrose (D50w (Vial) Inj) 50 ml UNSCH PRN IV PUSH HYPOGLYCEMIA-SEE COMMENTS; Start 08/15/17 at 10:15; Stop 08/16/17 at 08:03; Status DC Glucagon (Glucagon Inj) 1 mg UNSCH PRN OTHER HYPOGLYCEMIA-SEE COMMENTS; Start 08/15/17 at 10:15; Stop 08/16/17 at 08:03; Status DC Insulin Human Regular (NovoLIN R SUPPLEMENTAL SCALE) 1 Q4H SQ Last administered on 08/16/17at 04:00; Start 08/15/17 at 12:00; Stop 08/16/17 at 08:01 ; Status DC Thiamine HCl (Vitamin B1) 100 mg DAILY PO Last administered on 09/12/17at 08:11 ; Start 08/15/17 at 12:00 Multivitamins (Theragran) 1 tab DAILY PO Last administered on 09/12/17at 08:11; Start 08/15/17 at 12:00 Folic Acid (Folate) 1 mg DAILY PO Last administered on 09/12/17at 08:10; Start 08/15/17 at 12:00 Hydrocortisone Sodium Succinate (SoluCORTEF INJ) 50 mg Q6HR IV PUSH Last administered on 08/16/17at 05:39; Start 08/15/17 at 12:00; Stop 08/16/17 at 07:59 ; Status DC Famotidine (Pepcid Inj) 10 mg Q12H IV PUSH Last administered on 08/24/17at 00:08 ; Start 08/15/17 at 12:00; Stop 08/24/17 at 13:06; Status DC Diatrizoate Meglum/ Diatrizoate Sod ( Gastroview Liq) 18 ml ONCE ONCE PO Last administered on 08/15/17at 12:09; Start 08/15/17 at 12:15; Stop 08/15/17 at 12:16; Status DC Ceftriaxone Sodium 2000 mg/ Sodium Chloride 100 ml @ 200 mls/hr Q12H IV Last administered on 08/18/17at 03:38; Start 08/15/17 at 16:00; Stop 08/18/17 at 11:19 ; Status DC Ampicillin Sodium 2000 mg/Sodium Chloride 100 ml @ 400 mls/hr Q4H IV Last administered on 08/18/17at 05:19; Start 08/15/17 at 15:00; Stop 08/18/17 at 08:00 ; Status DC Acyclovir Sodium 500 mg/Sodium Chloride 100 ml @ 100 mls/hr Q8H IV Last administered on 08/18/17at 06:13; Start 08/15/17 at 15:00; Stop 08/18/17 at 11:19 ; Status DC Aspirin (Aspirin Chew) 81 mg DAILY OG-TUBE Last administered on 09/12/17at 08:10 ; Start 08/15/17 at 19:00 Hydrocortisone Sodium Succinate (SoluCORTEF INJ) 50 mg Q12H IV PUSH Last administered on 08/17/17at 04:06; Start 08/16/17 at 18:00; Stop 08/17/17 at 07:44 ; Status DC Dextrose (D50w (Vial) Inj) 50 ml UNSCH PRN IV PUSH HYPOGLYCEMIA-SEE COMMENTS Last administered on 09/09/17at 08:31; Start 08/16/17 at 08:00 Glucagon (Glucagon Inj) 1 mg UNSCH PRN OTHER HYPOGLYCEMIA-SEE COMMENTS; Start 08/16/17 at 08:00 Insulin Human Regular (NovoLIN R SUPPLEMENTAL SCALE) 1 Q4HR SQ Last administered on 08/31/17at 16:21; Start 08/16/17 at 08:00; Stop 09/01/17 at 16:25; Status DC Vancomycin HCl 1000 mg/Sodium Chloride 250 ml @ 250 mls/hr ONCE ONCE IV Last administered on 08/16/17at 09:13; Start 08/16/17 at 10:00; Stop 08/16/17 at 10:59 ; Status DC Hydrocortisone Sodium Succinate (SoluCORTEF INJ) 25 mg Q12H IV PUSH Last administered on 08/22/17at 06:25; Start 08/17/17 at 18:00; Stop 08/22/17 at 10:18 ; Status DC Potassium Chloride 100 ml @ 50 mls/hr BOLUS ONCE IV Last administered on 08/17at 08:51; Start 08/17/17 at 07:45; Stop 08/17/17 at 09:44; Status DC Calcium Gluconate 1 gm/Sodium Chloride 110 ml @ 110 mls/hr ONCE ONCE IV Last administered on 08/17/17at 08:49; Start 08/17/17 at 09:00; Stop 08/17/17 at 09:59 ; Status DC Metoprolol Tartrate (Lopressor) 25 mg Q12HR PO Last administered on 08/19/17at 08:46; Start 08/17/17 at 09:00; Stop 08/26/17 at 08:17; Status DC Heparin Sodium (Porcine) (Heparin Inj) 5,000 units Q12HR SQ Last administered on 08/24/17at 21:46; Start 08/17/17 at 09:00; Stop 08/25/17 at 09:00; Status DC Metoprolol Tartrate (Lopressor Inj) 2.5 mg ONCE ONCE IV PUSH Last administered on 08/17/17at 07:53; Start 08/17/17 at 07:45; Stop 08/17/17 at 07:47 ; Status DC Vancomycin HCl 1000 mg/Sodium Chloride 250 ml @ 250 mls/hr ONCE ONCE IV Last administered on 08/17/17at 11:06; Start 08/17/17 at 10:00; Stop 08/18/17 at 08:00 ; Status DC Furosemide (Lasix Inj) 40 mg ONCE ONCE IV PUSH Last administered on 08/17/17at 13:39; Start 08/17/17 at 13:30; Stop 08/17/17 at 13:31; Status DC Propofol 100 ml @ 2.19 mls/hr TITRATE PRN IV SEDATION Last administered on at 10:24; Start 08/17/17 at 18:30; Stop 08/25/17 at 09:00; Status DC Potassium Chloride 100 ml @ 25 mls/hr ONCE ONCE IV Last administered on at 21:42; Start 08/17/17 at 21:15; Stop 08/18/17 at 01:14; Status DC Potassium Chloride (KCl) 40 meq NOW ONCE PO Last administered on 08/17/17at 21: 43; Start 08/17/17 at 21:15; Stop 08/17/17 at 21:16; Status DC Etomidate (Amidate Inj) 40 mg STK-MED ONCE .ROUTE Last administered on at 02:50; Start 08/18/17 at 02:50; Stop 08/18/17 at 02:51; Status DC Polyethylene Glycol/ Electrolytes (Colyte Liq) 4,000 ml ONCE ONCE PO Last administered on 08/18/17at 06:34; Start 08/18/17 at 06:00; Stop 08/18/17 at 06:01 ; Status DC Potassium Chloride 40 meq/ Sodium Chloride 520 ml @ 130 mls/hr ONCE ONCE IV- CENTRAL Last administered on 08/18/17at 10:10; Start 08/18/17 at 09:00; Stop at 12:59; Status DC Ceftriaxone Sodium 2000 mg/ Sodium Chloride 100 ml @ 200 mls/hr Q24H IV Last administered on 08/21/17at 04:20; Start 08/19/17 at 04:00; Stop 08/21/17 at 17:56 ; Status DC Diltiazem HCl (Cardizem Inj) 15 mg ONCE ONCE IV PUSH Last administered on 08/18at 21:05; Start 08/18/17 at 20:15; Stop 08/18/17 at 20:23; Status DC Diltiazem HCl 125 mg/Sodium Chloride 125 ml @ 5 mls/hr TITRATE PRN IV Tachycardia Last administered on 08/20/17at 14:08; Start 08/18/17 at 20:15; Stop 08/24/17 at 17:09; Status DC Potassium Chloride 30 meq/ Sodium Chloride 115 ml @ 38.333 mls/ hr Q3H IV- CENTRAL Last administered on 08/19/17at 07:43; Start 08/19/17 at 04:00; Stop at 09:59; Status DC Sodium Chloride 1,000 ml @ 999 mls/hr BOLUS ONCE IV Last administered on 08/19at 11:25; Start 08/19/17 at 12:00; Stop 08/19/17 at 13:00; Status DC Phenylephrine HCl 40 mg/Dextrose 500 ml @ 30 mls/hr TITRATE PRN IV Blood Pressure Management Last administered on 08/20/17at 00:09; Start 08/19/17 at 10: 30; Stop 08/23/17 at 14:17; Status DC Terbutaline Sulfate (Brethine Inj) 1 mg UNSCH PRN SQ FOR EXTRAVASATION PROTOCOL ; Start 08/19/17 at 10:30; Stop 08/23/17 at 08:47; Status DC Vasopressin 40 units/Dextrose 100 ml @ 1.5 mls/hr TITRATE PRN IV Blood Pressure Management; Start 08/19/17 at 10:30; Stop 08/19/17 at 15:20; Status DC Sodium Chloride 5.5 meq/Sodium Acetate 29.5 meq/ Potassium Chloride 20 meq/ Magnesium Chloride 5 meq/ Calcium Chloride 4.5 meq/ Multivitamins 10 ml/Folic Acid 1 mg/Amino Acids/ Dextrose 1,042.1719 ml @ 42 mls/hr Q24H IV-CENTRAL Last administered on 08/19/17at 20:12; Start 08/19/17 at 20:00; Stop 08/20/17 at 19:59 ; Status DC Fat Emulsion Intravenous 250 ml @ 31.25 mls/ hr Q24H IV-CENTRAL Last administered on 08/20/17at 20:10; Start 08/19/17 at 20:00; Stop 08/26/17 at 08:17 ; Status DC Vasopressin 40 units/Dextrose 100 ml @ 6 mls/hr [id number] IV ; Start 08/19/17 at 15:30; Stop 08/23/17 at 14:17; Status DC Digoxin (Lanoxin Inj) 0.5 mg ONCE ONCE IV PUSH Last administered on 08/19/17at 17:56; Start 08/19/17 at 15:30; Stop 08/19/17 at 15:31; Status DC Parenteral Electrolytes 1,000 ml @ 42 mls/hr [id number] IV Last administered on at 11:20; Start 08/19/17 at 16:00; Stop 08/22/17 at 10:22; Status DC Potassium Phosphate 30 mmol/ Sodium Chloride 260 ml @ 43.333 mls/ hr ONCE ONCE IV Last administered on 08/20/17at 08:10; Start 08/20/17 at 07:00; Stop at 12:59; Status DC Sodium Chloride 5.5 meq/Sodium Acetate 29.5 meq/ Potassium Chloride 20 meq/ Magnesium Chloride 5 meq/ Calcium Chloride 4.5 meq/ Multivitamins 10 ml/Folic Acid 1 mg/Insulin Human Regular 20 units/ Amino Acids/ Dextrose 1,042.3719 ml @ 42 mls/hr Q24H IV-CENTRAL Last administered on 08/20/17at 20:10; Start 08/20/17 at 20:00; Stop 08/25/17 at 09:00; Status DC Digoxin (Lanoxin Inj) 0.5 mg STK-MED ONCE .ROUTE ; Start 08/20/17 at 12:40; Stop 08/20/17 at 12:41; Status DC Metoprolol Tartrate (Lopressor Inj) 5 mg STK-MED ONCE .ROUTE ; Start 08/20/17 at 12:40; Stop 08/20/17 at 12:41; Status DC Metoprolol Tartrate (Lopressor Inj) 5 mg NOW ONCE IV Last administered on 08/20at 12:45; Start 08/20/17 at 12:45; Stop 08/20/17 at 12:46; Status DC Digoxin (Lanoxin Inj) 0.5 mg NOW ONCE IV Last administered on 08/20/17at 12:46 ; Start 08/20/17 at 12:45; Stop 08/20/17 at 12:46; Status DC Phenylephrine HCl (Neosynephrine/ NS 1000 Mcg/10ml Syr) 1,000 mcg STK-MED ONCE IV ; Start 08/18/17 at 12:00; Stop 08/20/17 at 12:59; Status DC Ephedrine Sulfate (ePHEDrine/NS 25 MG/5 ML SYR) 25 mg STK-MED ONCE IV ; Start at 12:00; Stop 08/20/17 at 12:59; Status DC Propofol (Diprivan 200 Mg/20 ml Inj) 200 mg STK-MED ONCE IV ; Start 08/18/17 at 12:00; Stop 08/20/17 at 12:59; Status DC Potassium Phosphate 30 mmol/ Sodium Chloride 260 ml @ 43.333 mls/ hr ONCE ONCE IV Last administered on 08/21/17at 10:24; Start 08/21/17 at 09:00; Stop at 14:59; Status DC Dexmedetomidine HCl (Precedex Inj) 41 mcg ONCE ONCE IV PUSH Last administered on 08/21/17at 10:25; Start 08/21/17 at 07:30; Stop 08/21/17 at 07:35; Status DC Dexmedetomidine HCl 200 mcg/ Sodium Chloride 52 ml @ 0 mls/hr TITRATE PRN IV SEDATION; Start 08/21/17 at 07:30; Status UNV Digoxin (Lanoxin Inj) 0.125 mg DAILY IV PUSH Last administered on 08/24/17at 09: 31; Start 08/21/17 at 09:00; Stop 08/24/17 at 13:06; Status DC Dexmedetomidine HCl 400 mcg/ Sodium Chloride 100 ml @ 4.05 mls/hr TITRATE PRN IV Desired RASS Last administered on 08/21/17at 11:20; Start 08/21/17 at 08:15; Stop 08/21/17 at 15:04; Status DC Acetaminophen (Tylenol) 650 mg Q4H PRN PO temp greater than 101 Last administered on 08/23/17at 19:52; Start 08/21/17 at 14:15; Stop 08/24/17 at 13:06 ; Status DC Dexmedetomidine HCl 1000 mcg/ Sodium Chloride 250 ml @ 4.05 mls/hr TITRATE PRN IV Desired RASS Last administered on 08/25/17at 04:04; Start 08/21/17 at 15: 15; Stop 08/25/17 at 09:00; Status DC Labetalol HCl (Trandate Inj) 20 mg Q4H PRN IV PUSH SBP greater than 160mm Hg Last administered on 08/21/17at 21:51; Start 08/21/17 at 17:15 Cefepime HCl 2000 mg/Sodium Chloride 100 ml @ 200 mls/hr Q8H IV Last administered on 08/25/17at 01:40; Start 08/21/17 at 18:00; Stop 08/25/17 at 08:59 ; Status DC Vancomycin HCl 1000 mg/Sodium Chloride 250 ml @ 250 mls/hr ONCE ONCE IV Last administered on 08/21/17at 20:29; Start 08/21/17 at 20:00; Stop 08/21/17 at 20:59 ; Status DC Vancomycin HCl (Vancomycin Inj) 1,000 mg STK-MED ONCE .ROUTE ; Start 08/22/17 at 07:02; Stop 08/22/17 at 07:03; Status DC Gentamicin Sulfate (Gentamicin Inj) 240 mg STK-MED ONCE .ROUTE ; Start 08/22/17 at 07:03; Stop 08/22/17 at 07:04; Status DC Vancomycin HCl 1000 mg/Sodium Chloride 250 ml @ 250 mls/hr ONCE ONCE IV ; Start 08/22/17 at 11:00; Stop 08/22/17 at 11:59; Status Cancel Pharmacy Profile Note 0 ml @ 0 mls/hr UNSCH OTHER ; Start 08/22/17 at 10:00; Stop 08/25/17 at 08:59; Status DC Micafungin Sodium 100 mg/Sodium Chloride 100 ml @ 100 mls/hr Q24H IV Last administered on 08/30/17at 11:19; Start 08/22/17 at 11:00; Stop 08/31/17 at 10:05; Status DC Hydrocortisone Sodium Succinate (SoluCORTEF INJ) 25 mg DAILY IV PUSH Last administered on 08/25/17at 08:07; Start 08/23/17 at 09:00; Stop 08/25/17 at 09:16 ; Status DC Water (Free Water) 250 ml Q8HR G-TUBE Last administered on 08/25/17at 04:05; Start 08/22/17 at 14:00; Stop 08/26/17 at 08:17; Status DC Furosemide (Lasix Inj) 40 mg ONCE ONCE IV PUSH Last administered on 08/22/17at 11:40; Start 08/22/17 at 11:00; Stop 08/22/17 at 11:01; Status DC Vancomycin HCl 1250 mg/Sodium Chloride 262.5 ml @ 250 mls/hr Q24H IV Last administered on 08/25/17at 08:17; Start 08/23/17 at 09:00; Stop 08/25/17 at 08:59 ; Status DC Miscellaneous Information SPECIFIC LAB TO BE DARLENE... ONCE ONCE .XX Last administered on 08/25/17at 08:17; Start 08/25/17 at 08:45; Stop 08/25/17 at 08:46 ; Status DC Diatrizoate Meglum/ Diatrizoate Sod ( Gastroview Liq) 18 ml ONCE ONCE PO Last administered on 08/23/17at 19:51; Start 08/23/17 at 19:00; Stop 08/23/17 at 19:01; Status DC Melatonin (Melatonin) 5 mg HS PRN PO SLEEP Last administered on 08/27/17at 01:53 ; Start 08/23/17 at 19:00; Stop 08/29/17 at 12:02; Status DC Oxycodone HCl (Roxicodone) 5 mg Q6H PO Last administered on 08/25/17at 01:39; Start 08/23/17 at 19:00; Stop 08/27/17 at 08:21; Status DC Fentanyl Citrate (fentaNYL INJ) 50 mcg Q1H PRN IV PUSH BREAKTHROUGH PAIN Last administered on 08/25/17at 00:05; Start 08/23/17 at 19:00; Stop 08/25/17 at 09:00 ; Status DC Furosemide (Lasix Inj) 40 mg Q8H IV PUSH Last administered on 08/24/17at 11:04; Start 08/23/17 at 20:00; Stop 08/24/17 at 13:06; Status DC Potassium Bicarb/ Potassium Chloride (K-Lyte Cl Eff) 25 meq Q8H NG Last administered on 09/03/17at 20:22; Start 08/23/17 at 20:00; Stop 09/04/17 at 12:09; Status DC Heparin Sodium/ Dextrose 250 ml @ 10 mls/hr TITRATE PRN IV Coagulation Management Last administered on 08/27/17 18:11; Start 08/24/17 at 03:00; Stop 08/30/17 at 12:02; Status DC Artificial Tears (Tears Naturale Opth Soln) 1 drop Q8HR EACH EYE Last administered on 09/07/17at 14:30; Start 08/24/17 at 14:00; Stop 09/07/17 at 17:39 ; Status DC Acetaminophen (Tylenol 650 Mg/ 20 ml Liq) 650 mg Q6H PRN NG fever Last administered on 09/09/17 20:17; Start 08/24/17 at 13:00 Famotidine (Pepcid Liq) 20 mg BID NG Last administered on 08/29/17 08:53; Start 08/24/17 at 21:00; Stop 08/29/17 at 14:20; Status DC Digoxin (Lanoxin Liq) 0.125 mg DAILY PO Last administered on 09/12/17 08:11; Start 08/25/17 at 09:00 Bumetanide 100 ml @ 1 mls/hr Q24H IV Last administered on 08/24/17 20:18; Start 08/24/17 at 14:00; Stop 08/25/17 at 09:17; Status DC Albumin Human 50 ml @ 60 mls/hr Q12H IV Last administered on 08/26/17at 01:30; Start 08/24/17 at 14:00; Stop 08/26/17 at 02:49; Status DC Ferrous Sulfate (Ferrous Sulfate Liq) 300 mg BID PO Last administered on at 08:10; Start 08/24/17 at 21:00 Fentanyl Citrate (fentaNYL INJ) 50 mcg ONCE ONCE IV PUSH Last administered on 08/24/17 17:00; Start 08/24/17 at 17:00; Stop 08/24/17 at 17:01; Status DC Midazolam HCl (Versed Inj) 5 mg ONCE ONCE IV Last administered on 08/24/17 17 :00; Start 08/24/17 at 17:00; Stop 08/24/17 at 17:01; Status DC Norepinephrine Bitartrate 4 mg/ Sodium Chloride 250 ml @ 7.5 mls/hr TITRATE PRN IV Blood pressure management Last administered on 08/25/17at 00:15; Start at 17:15; Stop 08/25/17 at 09:00; Status DC Terbutaline Sulfate (Brethine Inj) 1 mg UNSCH PRN SQ For Extravasation; Start 08/24/17 at 17:15; Stop 08/29/17 at 14:21; Status DC Albuterol/ Ipratropium (Duoneb Neb) 1 ampule Q6HR NEB NEB Last administered on 08/25/17at 08:11; Start 08/24/17 at 22:00; Stop 08/25/17 at 09:33; Status DC Albuterol Sulfate (Albuterol Neb) 2.5 mg Q2HR NEB PRN NEB dyspnea; Start at 17:15; Stop 08/25/17 at 09:33; Status DC Sodium Chloride (NS Flush) DAILY IV FLUSH Last administered on 09/11/17at 08:37 ; Start 08/25/17 at 09:00 Sodium Chloride (NS Flush) UNSCH PRN IV FLUSH SEE PROTOCOL Last administered on 09/04/17at 07:49; Start 08/24/17 at 17:45 Cefepime HCl 2000 mg/Sodium Chloride 100 ml @ 200 mls/hr Q12H IV Last administered on 08/29/17at 02:15; Start 08/25/17 at 14:00; Stop 08/29/17 at 12:02; Status DC Albuterol/ Ipratropium (Duoneb Neb) 1 ampule Q4HR NEB NEB Last administered on 08/29/17at 11:09; Start 08/25/17 at 12:00; Stop 08/29/17 at 11:59; Status DC Albuterol/ Ipratropium (Duoneb Neb) 1 ampule Q2HR NEB PRN NEB SHORTNESS OF BREATH; Start 08/25/17 at 10:00; Stop 09/04/17 at 18:55; Status DC Miscellaneous Information D/C ICU ELECTROLYTE ORDERS... UNSCH PRN .XX SEE DOSE INSTRUCTIONS; Start 08/25/17 at 15:00 Miscellaneous Information ICU - CALL ORDERING PHYSIC... UNSCH PRN .XX SEE DOSE INSTRUCTIONS; Start 08/25/17 at 15:00 Potassium Chloride 100 ml @ 25 mls/hr UNSCH PRN IV ELECTROLYTE REPLACEMENT Last administered on 08/29/17at 16:51; Start 08/25/17 at 15:00 Potassium Bicarb/ Potassium Chloride (K-Lyte Cl Eff) 50 meq UNSCH PRN PO ELECTROLYTE REPLACEMENT; Start 08/25/17 at 15:00 Potassium Chloride 100 ml @ 50 mls/hr UNSCH PRN IV ELECTROLYTE REPLACEMENT Last administered on 09/01/17at 20:35; Start 08/25/17 at 15:00 Magnesium Sulfate 4 gm/Sodium Chloride 108 ml @ 54 mls/hr UNSCH PRN IV ELECTROLYTE REPLACEMENT; Start 08/25/17 at 15:00 Magnesium Sulfate 2 gm/Sodium Chloride 104 ml @ 52 mls/hr UNSCH PRN IV ELECTROLYTE REPLACEMENT; Start 08/25/17 at 15:00 Magnesium Oxide (Mag-Ox) 800 mg UNSCH PRN PO ELECTROLYTE REPLACEMENT; Start at 15:00 Sodium Phosphate 30 mmol/Sodium Chloride 260 ml @ 43.333 mls/ hr UNSCH PRN IV ELECTROLYTE REPLACEMENT; Start 08/25/17 at 15:00 Potassium Phosphate (K-Phos) 2,000 mg UNSCH PRN PO ELECTROLYTE REPLACEMENT Last administered on 09/11/17at 16:49; Start 08/25/17 at 15:00 Potassium Phosphate 30 mmol/ Sodium Chloride 260 ml @ 43.333 mls/ hr UNSCH PRN IV ELECTROLYTE REPLACEMENT Last administered on 09/02/17at 08:07; Start at 15:00 Metoprolol Tartrate (Lopressor Inj) 2.5 mg Q6H IV PUSH Last administered on at 03:59; Start 08/26/17 at 04:00; Stop 08/26/17 at 08:17; Status DC Fluconazole/ Sodium Chloride 400 ml @ 100 mls/hr Q24H IV Last administered on 08/27/17at 11:40; Start 08/26/17 at 08:00; Stop 08/27/17 at 21:35; Status DC Fluconazole/ Sodium Chloride 400 ml @ 100 mls/hr Q24H IV ; Start 08/26/17 at 10 :00; Status Cancel Metoprolol Tartrate (Lopressor) 50 mg Q12HR PO Last administered on 08/29/17at 08 :53; Start 08/26/17 at 09:00; Stop 08/31/17 at 10:59; Status DC Ipratropium [place] (Atrovent Neb) 0.5 mg Q2HR NEB PRN NEB SHORTNESS OF BREATH Last administered on 09/06/17at 23:22; Start 08/26/17 at 08:00; Stop 09/07/17 at 17:39; Status DC Ipratropium [place] (Atrovent Neb) 0.5 mg Q4HR NEB NEB Last administered on 04/16at 07:39; Start 08/26/17 at 08:00; Stop 09/06/17 at 12:41; Status DC Alprazolam (Xanax) 0.125 mg ONCE ONCE PO Last administered on 08/26/17at 09:02 ; Start 08/26/17 at 08:00; Stop 08/26/17 at 08:28; Status DC Miscellaneous (Pill Splitter) 1 ea UNSCH PRN OTHER SEE LABEL COMMENTS; Start at 08:30; Stop 09/04/17 at 12:39; Status DC Diltiazem HCl (Cardizem Inj) 10 mg ONCE ONCE IV Last administered on at 14:05; Start 08/26/17 at 13:45; Stop 08/26/17 at 13:53; Status DC Diltiazem HCl (Cardizem Inj) 10 mg ONCE ONCE IV ; Start 08/26/17 at 14:15; Stop 08/26/17 at 14:16; Status UNV Diltiazem HCl 125 mg/Sodium Chloride 125 ml @ 5 mls/hr TITRATE PRN IV Tachycardia; Start 08/26/17 at 14:15; Status UNV Diltiazem HCl 125 mg/Sodium Chloride 125 ml @ 5 mls/hr TITRATE PRN IV Tachycardia Last administered on 08/28/17at 20:36; Start 08/26/17 at 14:30; Stop 09/01/17 at 09:30; Status DC Metoprolol Tartrate (Lopressor Inj) 2.5 mg ONCE ONCE IV PUSH Last administered on 08/26/17at 17:05; Start 08/26/17 at 16:15; Stop 08/26/17 at 16:38 ; Status DC Metoprolol Tartrate (Lopressor Inj) 2.5 mg NOW ONCE IV PUSH Last administered on 08/26/17at 18:15; Start 08/26/17 at 18:15; Stop 08/26/17 at 18:16; Status DC Oxycodone HCl (Roxicodone) 5 mg Q6H PRN PO pain 6-10; Start 08/27/17 at 13:00 Furosemide (Lasix Inj) 40 mg BID@09,18 IV PUSH Last administered on 09/02/17at 18 :00; Start 08/27/17 at 09:00; Stop 09/03/17 at 07:38; Status DC Magnesium Sulfate/ Dextrose 100 ml @ 100 mls/hr ONCE ONCE IV Last administered on 08/27/17at 10:35; Start 08/27/17 at 09:00; Stop 08/27/17 at 09:59 ; Status DC Morphine Sulfate (Morphine Inj) 1 mg Q4H PRN IV anxiety/pain 1-10 Last administered on 09/08/17at 03:22; Start 08/27/17 at 11:00 Furosemide (Lasix Inj) 20 mg ONCE STAT IV PUSH Last administered on 08/27/17at 12:00; Start 08/27/17 at 11:41; Stop 08/27/17 at 11:52; Status DC Fluconazole/ Sodium Chloride 200 ml @ 100 mls/hr Q24H IV Last administered on 09/09/17at 08:00; Start 08/28/17 at 08:00; Stop 09/09/17 at 09:03; Status DC Fluconazole/ Sodium Chloride 200 ml @ 100 mls/hr Q24H IV Last administered on 09/08/17at 10:49; Start 08/28/17 at 10:00; Stop 09/09/17 at 09:03; Status DC Furosemide (Lasix Inj) 40 mg STAT ONCE IV PUSH Last administered on 08/28/17at 14:15; Start 08/28/17 at 14:00; Stop 08/28/17 at 14:04; Status DC Dexmedetomidine HCl (Precedex Inj) 36 mcg ONCE ONCE IV PUSH Last administered on 08/29/17at 09:00; Start 08/29/17 at 09:00; Stop 08/29/17 at 09:08; Status DC Dexmedetomidine HCl 200 mcg/ Sodium Chloride 52 ml @ 3.71 mls/hr TITRATE PRN IV SEDATION Last administered on 09/01/17at 04:11; Start 08/29/17 at 10:00; Stop at 09:30; Status DC Sodium Chloride 250 ml @ 15 mls/hr ONCE ONCE IV Last administered on at 11:30; Start 08/29/17 at 11:30; Stop 08/30/17 at 04:09; Status DC Diphenhydramine HCl (Benadryl) 25 mg Q4H PRN PO SEE LABEL COMMENTS Last administered on 09/09/17at 22:13; Start 08/29/17 at 11:30; Stop 09/09/17 at 22:13 ; Status DC Furosemide (Lasix Inj) 20 mg ONCE ONCE IV PUSH Last administered on 08/29/17at 15:39; Start 08/29/17 at 11:30; Stop 08/29/17 at 11:31; Status DC Phenylephrine HCl (Neosynephrine Inj) 10 mg STK-MED ONCE .ROUTE Last administered on 08/29/17at 15:40; Start 08/29/17 at 11:42; Stop 08/29/17 at 11:43; Status DC Miscellaneous Medication (ASP Crit: Other exception documentation) 1 UNSCH X1 PRN .XX PHARMACY DOCUMENTATION; Start 08/29/17 at 12:00; Stop 08/30/17 at 11:59; Status DC Miscellaneous Medication ([facility] Pharmacy Information) 1 UNSCH X1 PRN XX PHARMACY DOCUMENTATION; Start 08/29/17 at 12:00; Stop 08/30/17 at 11:59; Status DC Meropenem 1000 mg/ Sodium Chloride 100 ml @ 200 mls/hr Q8H IV Last administered on 08/30/17at 00:40; Start 08/29/17 at 15:00; Stop 08/30/17 at 15:18; Status DC Linezolid 300 ml @ 300 mls/hr Q12H IV Last administered on 09/02/17at 02:00; Start 08/29/17 at 14:00; Stop 09/02/17 at 08:05; Status DC Methylprednisolone Sodium Succinate (SoluMEDROL INJ) 125 mg STK-MED ONCE .ROUTE ; Start 08/29/17 at 12:24; Stop 08/29/17 at 12:25; Status DC Methylprednisolone Sodium Succinate (SoluMEDROL INJ) 125 mg STAT ONCE IV ; Start 08/29/17 at 13:45; Stop 08/29/17 at 13:46; Status DC Phenylephrine HCl 40 mg/Dextrose 500 ml @ 30 mls/hr TITRATE PRN IV Blood Pressure Management Last administered on 08/29/17at 11:30; Start 08/29/17 at 14:00 ; Stop 09/01/17 at 09:30; Status DC Terbutaline Sulfate (Brethine Inj) 1 mg UNSCH PRN SQ FOR EXTRAVASATION PROTOCOL ; Start 08/29/17 at 14:00; Stop 09/06/17 at 13:04; Status DC Famotidine (Pepcid) 10 mg BID NG Last administered on 09/06/17at 09:19; Start at 21:00; Stop 09/06/17 at 16:12; Status DC Enoxaparin Sodium (Lovenox Inj) 100 mg Q24H SQ Last administered on 09/12/17at 14:31; Start 08/30/17 at 15:00 Methylprednisolone Sodium Succinate (SoluMEDROL INJ) 40 mg Q12H IV PUSH Last administered on 09/06/17at 12:34; Start 08/30/17 at 13:00; Stop 09/06/17 at 12:43 ; Status DC Metoprolol Tartrate (Lopressor) 12.5 mg Q8HR PO Last administered on 08/30/17at 22:16; Start 08/30/17 at 14:00; Stop 08/31/17 at 10:45; Status DC Miscellaneous (Pill Splitter) 1 ea UNSCH PRN OTHER SEE LABEL COMMENTS Last administered on 09/01/17at 09:12; Start 08/30/17 at 13:00 Meropenem 1000 mg/ Sodium Chloride 100 ml @ 200 mls/hr Q12H IV Last administered on 09/02/17at 03:57; Start 08/30/17 at 16:00; Stop 09/02/17 at 08:10; Status DC Multi-Ingredient Mouthwash/Gargle (Magic Mouthwash Adult Liq) 5 ml QID PRN SWISH-SPIT MOUTH SORES Last administered on 3/8/18at 21:07; Start 08/30/17 at 19: 15; Stop 09/05/17 at 09:30; Status DC Metoprolol Tartrate (Lopressor) 25 mg Q8HR PO Last administered on 09/03/17at 06: 02; Start 08/31/17 at 14:00; Stop 09/03/17 at 07:38; Status DC Diltiazem HCl (Cardizem) 60 mg Q6HR PO Last administered on 09/05/17at 05:38; Start 09/01/17 at 12:00; Stop 09/05/17 at 11:48; Status DC Insulin Human Regular (NovoLIN R SUPPLEMENTAL SCALE) 1 ACHS SLIDING SCALE SQ Last administered on 09/02/17at 20:56; Start 09/01/17 at 17:00; Stop 09/04/17 at 09: 00; Status DC Temazepam (Restoril) 7.5 mg NOW ONCE PO Last administered on 09/01/17at 21:45; Start 09/01/17 at 21:30; Stop 09/01/17 at 21:31; Status DC Linezolid (Zyvox) 600 mg Q12H PO Last administered on 09/04/17at 00:33; Start 09/02/17 at 14:00; Stop 09/04/17 at 08:54; Status DC Cefepime HCl 2000 mg/Sodium Chloride 100 ml @ 200 mls/hr Q8H IV Last administered on 09/03/17at 01:00; Start 09/02/17 at 09:00; Stop 09/03/17 at 08:16; Status DC Furosemide (Lasix Inj) 40 mg DAILY IV PUSH Last administered on 09/03/17at 08:10 ; Start 09/03/17 at 09:00; Stop 09/04/17 at 07:19; Status DC Metoprolol Tartrate (Lopressor) 50 mg Q12HR PO Last administered on 09/12/17at 08:11; Start 09/03/17 at 09:00 Clonidine (Catapres) 0.1 mg Q8H PO Last administered on 09/03/17at 16:26; Start 09/03/17 at 08:00; Stop 09/04/17 at 07:19; Status DC Cefepime HCl 2000 mg/Sodium Chloride 100 ml @ 200 mls/hr Q12H IV Last administered on 09/04/17at 00:33; Start 09/03/17 at 13:00; Stop 09/04/17 at 08:54; Status DC Alprazolam (Xanax) 0.125 mg ONCE ONCE PO Last administered on 09/03/17at 09:00; Start 09/03/17 at 09:00; Stop 09/03/17 at 09:01; Status DC Clonidine (Catapres) 0.2 mg Q8H PO Last administered on 09/12/17at 08:09; Start 09/04/17 at 08:00 Albuterol/ Ipratropium (Duoneb Neb) 1 ampule Q4HR NEB NEB Last administered on 09/04/17at 15:31; Start 09/04/17 at 08:00; Stop 09/04/17 at 18:55; Status DC Temazepam (Restoril) 7.5 mg ONCE ONCE PO Last administered on 09/04/17 21:06; Start 09/04/17 at 21:00; Stop 09/04/17 at 21:01; Status DC Sodium Chloride 500 ml @ 500 mls/hr BOLUS ONCE IV Last administered on at 07:36; Start 09/05/17 at 07:15; Stop 09/05/17 at 08:14; Status DC Multi-Ingredient Mouthwash/Gargle (Magic Mouthwash Adult Liq) 5 ml ACHS SWISH- SWAL Last administered on 09/12/17at 11:54; Start 09/05/17 at 12:00 Diltiazem HCl (Cardizem) 90 mg Q6HR PO Last administered on 09/12/17at 11:54; Start 09/05/17 at 12:00 Temazepam (Restoril) 7.5 mg ONCE ONCE PO Last administered on 09/05/17at 19:50; Start 09/05/17 at 21:00; Stop 09/05/17 at 21:01; Status DC Temazepam (Restoril) 30 mg HS PRN PO SLEEP Last administered on 09/06/17at 23:11 ; Start 09/06/17 at 12:45; Stop 09/07/17 at 17:39; Status DC Albuterol/ Ipratropium (Duoneb Neb) 1 ampule Q6HR NEB NEB Last administered on 09/08/17at 21:24; Start 09/06/17 at 16:00; Stop 09/09/17 at 12:41; Status DC Prednisone (Deltasone) 10 mg DAILY PO Last administered on 09/09/17at 08:47; Start 09/07/17 at 09:00; Stop 09/09/17 at 14:12; Status DC Dextrose (D50w (Vial) Inj) 50 ml UNSCH PRN IV PUSH HYPOGLYCEMIA-SEE COMMENTS; Start 09/06/17 at 12:45; Stop 09/06/17 at 14:15; Status DC Glucagon (Glucagon Inj) 1 mg UNSCH PRN OTHER HYPOGLYCEMIA-SEE COMMENTS; Start 09/06/17 at 12:45; Stop 09/06/17 at 14:15; Status DC Insulin Aspart (NovoLOG SUPPLEMENTAL SCALE) 1 ACHS SLIDING SCALE SQ ; Start 04/16 at 17:00; Stop 09/11/17 at 08:02; Status DC Famotidine (Pepcid) 20 mg BID NG Last administered on 09/12/17at 08:10; Start at 21:00 Albuterol Sulfate (Albuterol Neb) 2.5 mg Q2HR NEB PRN NEB dyspnea; Start at 17:45; Stop 09/09/17 at 12:41; Status DC Bismuth Subsalicylate (Pepto-Bismol Liq) 15 ml ONCE ONCE PO Last administered on 09/08/17at 12:16; Start 09/08/17 at 11:15; Stop 09/08/17 at 11:18; Status DC Temazepam (Restoril) 15 mg HS PRN PO insomnia; Start 09/08/17 at 11:15; Stop at 14:11; Status DC Temazepam (Restoril) 30 mg HS PRN PO insomnia Last administered on 09/11/17at 20 :55; Start 09/08/17 at 21:00 Clotrimazole (Mycelex) 10 mg 5 TIMES A DAY BUCCAL Last administered on at 14:31; Start 09/08/17 at 18:00 Padimate O (Chapstick) 1 applic ONCE ONCE TOPICAL Last administered on at 17:48; Start 09/08/17 at 14:15; Stop 09/08/17 at 14:17; Status DC Sodium Chloride (Milmay [place]) 2 spray Q4H PRN EACH NARE NASAL CONGESTION Last administered on 09/11/17at 08:55; Start 09/08/17 at 14:15 Magnesium Sulfate/ Dextrose 100 ml @ 100 mls/hr ONCE ONCE IV Last administered on 09/08/17at 22:54; Start 09/08/17 at 20:30; Stop 09/08/17 at 21:29 ; Status DC Fluconazole (Diflucan) 800 mg DAILY PO Last administered on 09/12/17at 08:10; Start 09/09/17 at 10:00; Stop 10/05/17 at 09:59 Ipratropium [place]ley (Atrovent Neb) 0.5 mg Q4HR NEB PRN NEB dyspnea Last administered on 09/12/17at 13:38; Start 09/09/17 at 12:45 Glycerin (Glycerin Top Soln) 10 ml DAILY TOPICAL ; Start 09/10/17 at 09:00; Stop 09/10/17 at 09:00; Status DC Glycerin (Glycerin Top Soln) 10 ml ONCE ONCE TOPICAL ; Start 09/09/17 at 14:00 ; Stop 09/09/17 at 14:15; Status DC Prednisone (Deltasone) 5 mg DAILY PO Last administered on 09/12/17at 08:10; Start 09/10/17 at 09:00; Stop 09/15/17 at 08:59 Furosemide (Lasix Inj) 20 mg ONCE ONCE IV PUSH Last administered on 09/09/17at 15:22; Start 09/09/17 at 14:15; Stop 09/09/17 at 14:16; Status DC Lidocaine HCl (Xylocaine 2% Jelly) 5 ml ONCE ONCE TOPICAL ; Start 09/09/17 at 16:15; Stop 09/09/17 at 16:16; Status DC Ipratropium Hadley (Atrovent Neb) 0.5 mg Q6HR NEB NEB Last administered on at 08:34; Start 09/10/17 at 16:00 Loperamide HCl (Imodium) 2 mg Q4H PRN PO diarrhea; Start 09/10/17 at 15:00 Potassium Chloride (KCl) 30 meq ONCE ONCE PO Last administered on 09/10/17at 17 :43; Start 09/10/17 at 15:00; Stop 09/10/17 at 15:07; Status DC Guaifenesin (Mucinex Er) 600 mg BID PO Last administered on 09/12/17at 08:11; Start 09/10/17 at 21:00 Insulin Aspart (NovoLOG SUPPLEMENTAL SCALE) 1 Q4H SQ ; Start 09/11/17 at 12:00 Lorazepam (Ativan) 0.5 mg Q12H PRN PO anxiety; Start 09/12/17 at 14:45; Status UNV A/P Assessment and Plan This is a 82-year-old female who presented respiratory failure Acute metabolic encephalopathy, improved 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 08/15: CT brain negative for acute intracranial process MRI brain: Small lacunar infarcts in left cerebellar hemisphere and right parietal lobe EEG: Severe encephalopathy Repeat EEG 08/21.- generalized slowing, no epileptiform features Continue thiamine, multivitamin and folic acid daily. Neuro is following- Dr. Danielle LP showed clear CSF, 17 WBC, TP:45.2 Generally weak - PT and OT following. PT recommending acute rehab Continue aspirin 81 mg daily with enoxaparin 100 mg IV twice daily Temazepam 30 mg at night for insomnia We will give Ativan as needed for anxiety. Acute respiratory failure, resolved Bilateral pleural effusions -resolved Continue with oxygen keep sat >92% currently on 4 L Albuterol/ipratropium aerosols every 6 hours with albuterol aerosols every 2 hours as needed dyspnea Incentive spirometry Q1 hr while awake. Acapella q6 hours with Duoneb CXR: Bibasilar infiltrates Status post bilateral CT-guided thoracentesis by IR on 08/29 with drainage of 500 cc of pleural fluid on right and 300 cc from left(transudative fluid) Thoracentesis wasn't done by IR on 09/04 as pleural effusion is too small per CT images. 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 Digoxin level 1.2 on 09/08 Clonidine0.2mg Q8 for blood pressure Repeat Echo showed EF 45-50%, Lateral leaflet mitral valve with a 2 mm mobile density, consistent with ? endocarditis Cardiology following, Dr. Myers. FERNANDO on hold for now given resp status unless recurrent blood culture positivity. Continue aspirin 81 mg by mouth daily/home medication Acute kidney injury, resolved Lactic acidemia, resolved Rhabdomyolysis resolved Right-sided nephrolithiasis/nonobstructing Left renal cyst Monitor renal function, intake and output and avoid nephrotoxins. Renal has followed-Dr. Figueroa, US abdomen: No hydronephrosis CT Abd/pelvis revealed nonobstructing right-sided nephrolithiasis and left renal cyst. Continue straight cath. As needed. Ischemic colitis, resolved Severe acute on Chronic protein energy malnutrition AST elevation secondary to alcohol use Internal and external hemorrhoids Speech eval. Ensure with each meal. NG tube placed 09/09 with dietary consultation for tube feed recommendations. Currently on Glucerna 1.5 at 20 cc an hour advance to 45ml/hr as ligia. Encourage oral intake. On Magic mouthwash secondary to burning sensation and sore throat. F/u stool C diff ordered 09/05 per ID negative On famotidine 20 mg twice a day for GI prophylaxis. US liver: No abnormalities identified GI has followed- colonoscopy showed diffuse colitis in the sigmoid colon and descending colon; Necrotic, dusky appearing mucosa. Consistent with severe ischemic colitis. General surgery, Dr. Guadalupe -plan to treat conservatively unless patient worsens clinically. Repeat CT abdomen and pelvis 08/23 mild diffuse colitis Reconsult GI for odynophagia. Patient refused EGD Septic shock resolved UTI Ischemic colitis Fungemia - Felipa parapsilosis Abx per ID -Continue fluconazole 800 mg IV daily , Monitor for signs of infections ( Fever, WBC). Seen by Opth no evidence of endophthalmitis Pertinent cultures 08/29 pleural fluid culture NGTD. 08/26 and 08/29 blood cultures Negative 08/23 - blood culture by line (actually peripheral) - Staph hominus 08/21 - blood culture - no growth 08/21 - sputum - no growth 08/21 - - no growth 08/21 - blood culture - Felipa parapsilosis 08/15 - CSF - negative 08/15 - sputum - no growth 08/14 - blood cultures 2 and UA - no growth C-diff PCR is negative, stool studies negative s/p LP showed clear CSF, 17 WBC, TP:45.2, HSV DNA PCR neg Hyperglycemia of critical illness/steroid SSI with accucheks Q4 TSH: 1.15. Leukocytosis Normocytic anemia B/L UE DVT Possible left common femoral vein DVT Left cephalic/basilic superficial and right superficial cephalic thrombus Monitor CBC, coags- heparin drip stopped on 08/30 and started on Enoxaparin 100 mg subcutaneously daily for full anticoagulation. Iron sulfate 300 mg twice a day. 1 unit PRBCs ordered to be transfused on 08/29 GI prophylaxis with famotidine and DVT prophylaxis with SCDs, Enoxaparin 100mg subcut daily Discharge Planning Due to the complexity of patient medical condition she would benefit from inpatient rehab. Susanna Martínez MD Sep 12, 2017 14:51
[2017-09-12] MEDS: LORazepam 0.5 MG TAB PO PRN (15:07)
[2017-09-12] MEDS: TEMAZEPAM 15 MG CAP PO PRN (21:33)
[2017-09-13] VITALS (17 sets, daily range): BP systolic 99–136; BP diastolic 55–74; PULSE 78–122; RESP 20; TEMP 97.6–98.9; O2SAT 92–100
[2017-09-13] MEDS: DILTIAZEM HCL 90 MG TAB PO SCH ×5 (01:18→22:16)
[2017-09-13] MEDS: cloNIDine HCL 0.2 MG TAB PO SCH ×4 (01:18→22:16)
[2017-09-13] MEDS: TEMAZEPAM 15 MG CAP PO PRN ×2 (01:18→22:18)
[2017-09-13] MEDS: LORazepam 0.5 MG TAB PO PRN ×2 (03:31→16:10)
[2017-09-13] MEDS: INSULIN ASPART SUPPLEMENTAL SCALE SQ SCH ×6 (04:00→19:39)
[2017-09-13] MEDS: RESP: IPRATROPIUM 0.5 MG/2.5 ML NEB NEB SCH ×4 (04:12→22:00)
[2017-09-13] MEDS: CLOTRIMAZOLE 10 MG TROCHE BUCCAL SCH ×5 (06:00→20:19)
[2017-09-13] MEDS: LOPERAMIDE HCL 2 MG CAP PO PRN ×2 (07:27→20:19)
[2017-09-13] MEDS: NYSTAT/DIPHENHY/LIDO MOUTHWASH (Adult) 120ML SWISH-SWAL SCH ×4 (08:00→19:43)
[2017-09-13] MEDS: guaiFENesin E.R. 600 MG TAB PO SCH ×2 (08:16→19:33)
[2017-09-13] MEDS: MULTIVITAMIN TAB PO SCH (08:16)
[2017-09-13] MEDS: METOPROLOL TARTRATE 50 MG TAB PO SCH ×2 (08:16→19:33)
[2017-09-13] MEDS: predniSONE 5 MG TAB PO SCH (08:17)
[2017-09-13] MEDS: FAMOTIDINE 20 MG TAB NG SCH ×2 (08:17→19:33)
[2017-09-13] MEDS: FOLIC ACID 1 MG TAB PO SCH (08:17)
[2017-09-13] MEDS: FERROUS SULFATE 300 MG /5ML UDC PO SCH ×2 (08:17→19:33)
[2017-09-13] MEDS: ASPIRIN 81 MG CHEW TAB OG-TUBE SCH (08:17)
[2017-09-13] MEDS: FLUCONAZOLE 200 MG TAB PO SCH (08:17)
[2017-09-13] MEDS: DIGOXIN SOLUTION 0.125 MG/2.5 ML CUP PO SCH (08:18)
[2017-09-13] MEDS: THIAMINE HCL 100 MG TAB PO SCH (08:19)
[2017-09-13] MEDS: SODIUM CHLORIDE 0.9% FLUSH 10 ML FLUSH IV FLUSH SCH ×3 (08:19→19:34)
[2017-09-13 13:40] LABS: HEMATOCRIT 26.1 % (35.0-46.0); HEMOGLOBIN 8.7 GM/DL (11.6-15.3); MEAN CELL VOLUME 98.9 FL (80.0-100.0); MEAN CORPUSCULAR HEMOGLOBIN 32.8 PG (27.0-34.0); MEAN CORPUSCULAR HGB CONC 33.2 % (32.0-36.0); MEAN PLATELET VOLUME 7.5 FL (7.0-11.0); PLATELET COUNT 194 TH/MM3 (150-450); RED BLOOD COUNT 2.64 MIL/MM3 (4.00-5.30); RED CELL DISTRIBUTION WIDTH 17.9 % (11.6-17.2)
[2017-09-13 13:55] LABS: CREATININE 0.4 MG/DL (0.50-1.00)
--- NOTE | 2017-09-13 15:54 | RADRPT ---
EXAM DATE/TIME: 09/13/2017 15:27 [facility] COMPARISON: CHEST SINGLE AP, September 11, 2017, 8:51. INDICATIONS : Dyspnea. MEDICAL HISTORY : Hypertension. SURGICAL HISTORY : None. ENCOUNTER: Subsequent ACUITY: 1 month PAIN SCORE: Non-responsive. LOCATION: Bilateral chest FINDINGS: The heart is enlarged. There are bilateral effusions. There is patchy infiltrate throughout both lung s. There is consolidation in the left lower lobe. Findings would suggest congestive failure versus pn eumonia. There is a weighted feeding tube present. The tip is not visualized and presumably within the distal stomach. The osseous structures are intact. CONCLUSION: 1. Bilateral effusions and diffuse bilateral infiltrates suggesting interstitial edema. The heart is mildly enlarged. There is consolidation of the left lower lobe. Appearance of the parenchyma similar to previous dated 09/11/17. Erik Joel MD on September 13, 2017 at 15:50 Board Certified Radiologist. This report was verified electronically.
[2017-09-13] MEDS: ENOXAPARIN SODIUM 100 MG/ML SYRINGE SQ SCH (16:10)
--- NOTE | 2017-09-13 16:26 | HHI.PR ---
Subjective Remarks Follow-up for respiratory failure multiple medical discharge conditions and assessment and plan Patient looks like she is more short of breath today even though she denies this. She was put on BiPAP and nonrebreather intermittent last night and this morning. Her daughter feels like she is doing better but she agrees that she is more short of breath. Patient denies any anxiety. She denies any cough. She has no other complaints. Objective Vitals Vital Signs Date Time Temp Pulse Resp B/P (MAP) Pulse Ox O2 Delivery O2 Flow Rate FiO2 09/13/17 14:00 122 09/13/17 12:00 98.2 82 113/59 (77) 99 09/13/17 12:00 118 09/13/17 12:00 100 Partial Non-Rebreather 15.00 09/13/17 10:00 118 09/13/17 08:00 98.7 92 103/59 (74) 96 09/13/17 08:00 98 Nasal Cannula 5.00 09/13/17 08:00 113 09/13/17 06:00 97 Nasal Cannula 5.00 09/13/17 06:00 111 09/13/17 04:00 79 09/13/17 04:00 98.9 79 20 109/55 (73) 100 09/13/17 04:00 100 Partial Non-Rebreather 15.00 09/13/17 02:00 102 09/13/17 01:30 100 50 09/13/17 01:30 95 Non-Rebreather 15.00 09/13/17 00:00 102 131/74 (93) 100 09/13/17 00:00 100 Bi-Pap 5.00 09/13/17 00:00 102 09/12/17 22:00 99 09/12/17 21:30 95 60 09/12/17 20:28 91 Nasal Cannula 5.00 09/12/17 20:00 97 Nasal Cannula 5.00 09/12/17 20:00 113 09/12/17 20:00 97.2 113 133/75 (94) 97 09/12/17 18:00 92 134/63 (86) 91 09/12/17 18:00 92 09/12/17 17:00 88 133/61 (85) 96 I/O 09/12/17 09/12/17 09/12/17 09/13/17 09/13/17 3/17/18 07:00 15:00 23:00 07:00 15:00 23:00 Intake Total 1185 ml 685 ml 882 ml Output Total 1100 ml 450 ml 650 ml Balance 85 ml 235 ml 232 ml Intake Oral 200 ml 240 ml Tube Feeding 535 ml 485 ml 242 ml Other 450 ml 200 ml 400 ml Output Urine Total 1100 ml 450 ml 650 ml # Bowel Movements 1 3 3 Result Diagram: 09/13/17 1255 09/13/17 1255 Imaging Last Impressions Chest X-Ray 09/13/17 0000 Signed Impressions: Service Date/Time: Wednesday, September 13, 2017 15:27 - CONCLUSION: 1. Bilateral effusions and diffuse bilateral infiltrates suggesting interstitial edema. The heart is mildly enlarged. There is consolidation of the left lower lobe. Appearance of the parenchyma similar to previous dated 09/11/17. Erik Joel MD Abdomen X-Ray 09/09/17 0000 Signed Impressions: Service Date/Time: Saturday, September 09, 2017 18:20 - CONCLUSION: Dobbhoff feeding tube is in the proximal duodenum. Adan Nunes MD Thoracentesis 09/04/17 0000 Signed Impressions: Service Date/Time: August 15:12 - CONCLUSION: 1. Small bilateral pleural effusions with concomitant atelectatic changes. 2. Fluid collections are too small to safely drain percutaneously with CT. Shashi Moreno MD Chest Ultrasound 09/04/17 0000 Signed Impressions: Service Date/Time: August 09:23 - CONCLUSION: Right pleural effusion as above. Shashi Moreno MD Chest CT 08/29/17 0000 Signed Impressions: Service Date/Time: Tuesday, August 29, 2017 14:48 - CONCLUSION: Following thoracentesis there is decreasing amount of effusion. Significant consolidation persists. There is no pneumothorax. Juan J Joel MD FACR Abdomen/Pelvis CT 08/23/17 1426 Signed Impressions: Service Date/Time: Wednesday, August 23, 2017 22:50 - CONCLUSION: 1. Suspected mild diffuse colitis, nonspecific but presumably infectious or inflammatory. No obstruction or abscess. 2. Trace ascites about the same there is worsening anasarca and worsening pleural effusions and consolidation of both lung bases. 3. Tiny nonobstructing stone of the right kidney and a generally benign appearing cyst lower pole the left kidney. No evidence of obstructive uropathy or other etiology for acute renal failure. 4. Atherosclerotic aorta. No aneurysm. Adan Nunes MD Upper Extremity Ultrasound 08/23/17 0000 Signed Impressions: Service Date/Time: Wednesday, August 23, 2017 16:25 - CONCLUSION: Bilateral upper extremity DVT as described above. Samuel Peralta MD Lower Extremity Ultrasound 08/23/17 0000 Signed Impressions: Service Date/Time: Wednesday, August 23, 2017 15:50 - CONCLUSION: 1. There is incomplete compression of the left common femoral vein raising suspicion for nonocclusive thrombus. This vessel, however, still demonstrates normal Doppler blood flow and respiratory variability. 2. The remaining veins of the left lower extremity are patent and the entire right lower extremity is patent without thrombus. Adna Machuca MD Lumbar Puncture Fluoroscopy 08/15/17 0000 Signed Impressions: Service Date/Time: Tuesday, August 15, 2017 15:36 - CONCLUSION: 1. Uncomplicated fluoroscopically guided lumbar puncture. 2. Please note, requested opening pressures were not obtained due to technical difficulties. Shashi Moreno MD Brain MRI 08/15/17 0000 Signed Impressions: Service Date/Time: Tuesday, August 15, 2017 16:57 - CONCLUSION: 1. 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 2. Mild stenosis in the upper cervical spine as above. Esau Martell MD Abdomen Ultrasound 08/15/17 0000 Signed Impressions: Service Date/Time: Tuesday, August 15, 2017 10:40 - CONCLUSION: 1. No abnormality is identified to explain the clinical symptoms. There is no hydronephrosis. 2. The liver is normal in size and echotexture. Adan Machuca MD Head CT [id number]/14/[id number] Signed Impressions: Service Date/Time: July 22:54 - CONCLUSION: Unremarkable study. Josseline Villagomez MD Objective Remarks GENERAL: 82-year-old female currently resting in bed on nasal cannula with increased respiration secondary to anxiety NG tube in place. CARDIOVASCULAR: IRR. S1, S2 no S4. Without murmur RESPIRATORY: Diminished breath sounds in the bases bilaterally. No wheezing, rales or rhonchi appreciated. GASTROINTESTINAL: Abdomen soft, non-tender, nondistended. Bowel sounds hypoactive but present. No guarding or rigidity MUSCULOSKELETAL: Trace edema, more prominent LUE. NEURO: Awake alert oriented 3, conversant. Following commands, no obvious focal deficits Medications and IVs Current Medications Etomidate (Amidate Inj) 40 mg STK-MED ONCE .ROUTE ; Start 08/14/17 at 22:38; Stop 08/14/17 at 22:52; Status DC Succinylcholine Chloride (Quelicin Inj) 200 mg STK-MED ONCE .ROUTE ; Start 08/14 at 22:38; Stop 08/14/17 at 22:52; Status DC Etomidate (Amidate Inj) 40 mg STK-MED ONCE .ROUTE ; Start 08/14/17 at 22:39; Stop 08/14/17 at 22:52; Status DC Sodium Chloride 1,000 ml @ 999 mls/hr BOLUS ONCE IV Last administered on 08/15at 00:27; Start 08/15/17 at 00:15; Stop 08/15/17 at 01:15; Status DC Ceftriaxone Sodium 1000 mg/ Sodium Chloride 100 ml @ 200 mls/hr ONCE ONCE IV Last administered on 08/15/17at 00:27; Start 08/15/17 at 00:15; Stop 08/15/17 at 00:44; Status DC Metronidazole 100 ml @ 100 mls/hr ONCE ONCE IV Last administered on at 01:26; Start 08/15/17 at 00:15; Stop 08/15/17 at 01:14; Status DC Sodium Chloride 1,000 ml @ 999 mls/hr BOLUS ONCE IV Last administered on 08/15at 01:42; Start 08/15/17 at 01:45; Stop 08/15/17 at 02:45; Status DC Sodium Chloride 1,000 ml @ 100 mls/hr Q10H IV Last administered on 08/15/17at 02:57; Start 08/15/17 at 01:58; Stop 08/15/17 at 02:58; Status DC Sodium Chloride (NS Flush) 2 ml UNSCH PRN IV FLUSH FLUSH AFTER USING IV ACCESS Last administered on 09/12/17at 08:09; Start 08/15/17 at 02:00 Sodium Chloride (NS Flush) 2 ml BID IV FLUSH Last administered on 09/13/17at 08: 19; Start 08/15/17 at 09:00 Naloxone HCl (Narcan Inj) 0.4 mg UNSCH PRN IV PUSH SEE LABEL COMMENTS; Start at 02:00 Sodium Chloride 1,000 ml @ 999 mls/hr BOLUS ONCE IV Last administered on 08/15at 02:32; Start 08/15/17 at 02:00; Stop 08/15/17 at 03:00; Status DC Metronidazole 100 ml @ 100 mls/hr Q6H IV Last administered on 08/29/17at 08:52; Start 08/15/17 at 08:00; Stop 08/29/17 at 12:02; Status DC Thiamine HCl (Thiamine Inj) 100 mg ONCE ONCE IM Last administered on at 02:57; Start 08/15/17 at 02:00; Stop 08/15/17 at 02:04; Status DC Thiamine HCl 100 mg/Sodium Chloride 101 ml @ 101 mls/hr DAILY IV Last administered on 08/15/17at 09:44; Start 08/15/17 at 09:00; Stop 08/15/17 at 10:23 ; Status DC Pharmacy Profile Note 0 ml @ 0 mls/hr UNSCH OTHER ; Start 08/15/17 at 02:15; Stop 08/18/17 at 08:00; Status DC Piperacillin Sod/ Tazobactam Sod 50 ml @ 200 mls/hr Q8H IV ; Start 08/15/17 at 03:00; Stop 08/15/17 at 03:00; Status DC Vancomycin HCl 1000 mg/Sodium Chloride 250 ml @ 250 mls/hr ONCE ONCE IV Last administered on 08/15/17at 03:44; Start 08/15/17 at 03:00; Stop 08/15/17 at 03:59 ; Status DC Ampicillin Sodium 2000 mg/Sodium Chloride 100 ml @ 400 mls/hr Q4H IV Last administered on 08/15/17at 03:21; Start 08/15/17 at 03:00; Stop 08/15/17 at 07:09 ; Status DC Ceftriaxone Sodium 2000 mg/ Sodium Chloride 100 ml @ 200 mls/hr Q12H IV ; Start 08/15/17 at 13:00; Stop 08/15/17 at 13:00; Status DC Ceftriaxone Sodium 1000 mg/ Sodium Chloride 100 ml @ 200 mls/hr ONCE ONCE IV Last administered on 08/30/17at 06:23; Start 08/15/17 at 04:00; Stop 08/15/17 at 04:29; Status DC Sodium Bicarbonate 100 meq/Dextrose 1,100 ml @ 100 mls/hr Q11H IV Last administered on 08/18/17at 03:38; Start 08/15/17 at 03:00; Stop 08/18/17 at 07:56 ; Status DC Atropine Sulfate (Atropine Inj) 1 mg STK-MED ONCE .ROUTE ; Start 08/15/17 at 05: 34; Stop 08/15/17 at 05:35; Status DC Epinephrine HCl (EPINEPHrine (1:10,000) INJ) 1 mg STK-MED ONCE .ROUTE ; Start at 05:35; Stop 08/15/17 at 05:36; Status DC Sodium Bicarbonate (Sodium Bicarbonate 8.4% Inj) 50 meq ONCE ONCE IV PUSH Last administered on 08/15/17at 06:05; Start 08/15/17 at 06:00; Stop 08/15/17 at 06:01; Status DC Sodium Chloride 1,000 ml @ 999 mls/hr BOLUS ONCE IV Last administered on 08/15at 06:06; Start 08/15/17 at 06:00; Stop 08/15/17 at 07:00; Status DC Hydrocortisone Sodium Succinate (SoluCORTEF INJ) 100 mg Q8HR IV PUSH Last administered on 08/15/17at 06:05; Start 08/15/17 at 06:00; Stop 08/15/17 at 10:41 ; Status DC Norepinephrine Bitartrate 250 ml @ 7.5 mls/hr TITRATE PRN IV Blood pressure management; Start 08/15/17 at 06:00; Stop 08/15/17 at 07:31; Status DC Terbutaline Sulfate (Brethine Inj) 1 mg UNSCH PRN SQ For Extravasation; Start 08/15/17 at 06:00; Stop 08/15/17 at 08:35; Status DC Heparin Sodium (Porcine) (Heparin Inj) 3,000 units ONCE ONCE IV PUSH ; Start at 06:00; Stop 08/15/17 at 06:12; Status DC Heparin Sodium/ Dextrose 250 ml @ 9 mls/hr TITRATE PRN IV Coagulation Management; Start 08/15/17 at 06:00; Stop 08/15/17 at 10:41; Status DC Miscellaneous Information Patient in critical care unit? Ass... [id number] .[id number] Last administered on 08/15/17at 06:15; Start 08/15/17 at 06:15 Chlorhexidine Gluconate (Chlorhexidine 2% Cloth) 3 pack DAILY@04 TOPICAL Last administered on 08/20/17at 04:00; Start 08/16/17 at 04:00; Stop 08/20/17 at 04:01 ; Status DC Chlorhexidine Gluconate (Chlorhexidine 2% Cloth) 3 pack UNSCH PRN TOPICAL HYGIENIC CARE; Start 08/15/17 at 06:15; Stop 08/20/17 at 06:14; Status DC Flumazenil (Romazicon Inj) 0.2 mg Q1M PRN IV PUSH SEE LABEL COMMENTS; Start at 06:30; Stop 09/06/17 at 13:04; Status DC Lorazepam (Ativan) 1 mg Q4H PRN PO CIWA 8 - 10; Start 08/15/17 at 06:30; Stop 08/16/17 at 07:59; Status DC Lorazepam (Ativan Inj) 1 mg Q4H PRN IV PUSH CIWA 8 - 10 Last administered on at 13:10; Start 08/15/17 at 06:30; Stop 08/16/17 at 07:59; Status DC Lorazepam (Ativan) 2 mg Q2H PRN PO CIWA 11-14; Start 08/15/17 at 06:30; Stop at 07:59; Status DC Lorazepam (Ativan Inj) 2 mg Q2H PRN IV PUSH CIWA 11-14; Start 08/15/17 at 06:30 ; Stop 08/16/17 at 07:59; Status DC Lorazepam (Ativan Inj) 2 mg Q1H PRN IV PUSH CIWA 15-20; Start 08/15/17 at 06:30 ; Stop 08/16/17 at 07:59; Status DC Lorazepam (Ativan Inj) 2 mg Q15M PRN IV PUSH CIWA > 20; Start 08/15/17 at 06:30 ; Stop 08/16/17 at 07:59; Status DC Ipratropium [place] (Atrovent Neb) 0.5 mg Q2HR NEB PRN NEB wheezing Last administered on 08/24/17at 03:57; Start 08/15/17 at 06:30; Stop 08/24/17 at 17:11 ; Status DC Ceftriaxone Sodium 1000 mg/ Sodium Chloride 100 ml @ 200 mls/hr Q24H IV ; Start 08/16/17 at 00:00; Stop 08/16/17 at 00:00; Status DC Norepinephrine Bitartrate 250 ml @ 7.5 mls/hr TITRATE PRN IV Blood pressure management Last administered on 08/16/17at 22:50; Start 08/15/17 at 07:30; Stop 08/18/17 at 07:56; Status DC Terbutaline Sulfate (Brethine Inj) 1 mg UNSCH PRN SQ For Extravasation; Start 08/15/17 at 07:30; Stop 08/15/17 at 09:15; Status DC Etomidate (Amidate Inj) 20 mg ONCE ONCE IV PUSH Last administered on at 07:30; Start 08/15/17 at 07:30; Stop 08/15/17 at 07:32; Status DC Fentanyl Citrate 250 ml @ 5 mls/hr TITRATE PRN IV SEDATION Last administered on 08/25/17at 04:05; Start 08/15/17 at 07:30; Stop 08/26/17 at 08:17; Status DC Etomidate (Amidate Inj) 40 mg STK-MED ONCE .ROUTE Last administered on at 07:28; Start 08/15/17 at 07:28; Stop 08/15/17 at 07:29; Status DC Fentanyl Citrate (fentaNYL INJ) 100 mcg STK-MED ONCE .ROUTE Last administered on 08/15/17at 07:28; Start 08/15/17 at 07:28; Stop 08/15/17 at 07:29; Status DC Fentanyl Citrate (fentaNYL INJ) 100 mcg STK-MED ONCE .ROUTE Last administered on 08/15/17at 07:37; Start 08/15/17 at 07:37; Stop 08/15/17 at 07:38; Status DC Phenylephrine HCl 40 mg/Dextrose 500 ml @ 30 mls/hr TITRATE PRN IV Blood pressure management; Start 08/15/17 at 10:00; Stop 08/16/17 at 07:59; Status DC Terbutaline Sulfate (Brethine Inj) 1 mg UNSCH PRN SQ For Extravasation; Start 08/15/17 at 09:00; Status Cancel Dextrose (D50w (Vial) Inj) 50 ml UNSCH PRN IV PUSH HYPOGLYCEMIA-SEE COMMENTS; Start 08/15/17 at 10:15; Stop 08/16/17 at 08:03; Status DC Glucagon (Glucagon Inj) 1 mg UNSCH PRN OTHER HYPOGLYCEMIA-SEE COMMENTS; Start 08/15/17 at 10:15; Stop 08/16/17 at 08:03; Status DC Insulin Human Regular (NovoLIN R SUPPLEMENTAL SCALE) 1 Q4H SQ Last administered on 08/16/17at 04:00; Start 08/15/17 at 12:00; Stop 08/16/17 at 08:01 ; Status DC Thiamine HCl (Vitamin B1) 100 mg DAILY PO Last administered on 09/13/17at 08:19 ; Start 08/15/17 at 12:00 Multivitamins (Theragran) 1 tab DAILY PO Last administered on 09/13/17at 08:16; Start 08/15/17 at 12:00 Folic Acid (Folate) 1 mg DAILY PO Last administered on 09/13/17at 08:17; Start 08/15/17 at 12:00 Hydrocortisone Sodium Succinate (SoluCORTEF INJ) 50 mg Q6HR IV PUSH Last administered on 08/16/17at 05:39; Start 08/15/17 at 12:00; Stop 08/16/17 at 07:59 ; Status DC Famotidine (Pepcid Inj) 10 mg Q12H IV PUSH Last administered on 08/24/17at 00:08 ; Start 08/15/17 at 12:00; Stop 08/24/17 at 13:06; Status DC Diatrizoate Meglum/ Diatrizoate Sod ( Gastroview Liq) 18 ml ONCE ONCE PO Last administered on 08/15/17at 12:09; Start 08/15/17 at 12:15; Stop 08/15/17 at 12:16; Status DC Ceftriaxone Sodium 2000 mg/ Sodium Chloride 100 ml @ 200 mls/hr Q12H IV Last administered on 08/18/17at 03:38; Start 08/15/17 at 16:00; Stop 08/18/17 at 11:19 ; Status DC Ampicillin Sodium 2000 mg/Sodium Chloride 100 ml @ 400 mls/hr Q4H IV Last administered on 08/18/17at 05:19; Start 08/15/17 at 15:00; Stop 08/18/17 at 08:00 ; Status DC Acyclovir Sodium 500 mg/Sodium Chloride 100 ml @ 100 mls/hr Q8H IV Last administered on 08/18/17at 06:13; Start 08/15/17 at 15:00; Stop 08/18/17 at 11:19 ; Status DC Aspirin (Aspirin Chew) 81 mg DAILY OG-TUBE Last administered on 09/13/17at 08:17 ; Start 08/15/17 at 19:00 Hydrocortisone Sodium Succinate (SoluCORTEF INJ) 50 mg Q12H IV PUSH Last administered on 08/17/17at 04:06; Start 08/16/17 at 18:00; Stop 08/17/17 at 07:44 ; Status DC Dextrose (D50w (Vial) Inj) 50 ml UNSCH PRN IV PUSH HYPOGLYCEMIA-SEE COMMENTS Last administered on 09/09/17at 08:31; Start 08/16/17 at 08:00 Glucagon (Glucagon Inj) 1 mg UNSCH PRN OTHER HYPOGLYCEMIA-SEE COMMENTS; Start 08/16/17 at 08:00 Insulin Human Regular (NovoLIN R SUPPLEMENTAL SCALE) 1 Q4HR SQ Last administered on 08/31/17at 16:21; Start 08/16/17 at 08:00; Stop 09/01/17 at 16:25; Status DC Vancomycin HCl 1000 mg/Sodium Chloride 250 ml @ 250 mls/hr ONCE ONCE IV Last administered on 08/16/17at 09:13; Start 08/16/17 at 10:00; Stop 08/16/17 at 10:59 ; Status DC Hydrocortisone Sodium Succinate (SoluCORTEF INJ) 25 mg Q12H IV PUSH Last administered on 08/22/17at 06:25; Start 08/17/17 at 18:00; Stop 08/22/17 at 10:18 ; Status DC Potassium Chloride 100 ml @ 50 mls/hr BOLUS ONCE IV Last administered on 08/17at 08:51; Start 08/17/17 at 07:45; Stop 08/17/17 at 09:44; Status DC Calcium Gluconate 1 gm/Sodium Chloride 110 ml @ 110 mls/hr ONCE ONCE IV Last administered on 08/17/17at 08:49; Start 08/17/17 at 09:00; Stop 08/17/17 at 09:59 ; Status DC Metoprolol Tartrate (Lopressor) 25 mg Q12HR PO Last administered on 08/19/17at 08:46; Start 08/17/17 at 09:00; Stop 08/26/17 at 08:17; Status DC Heparin Sodium (Porcine) (Heparin Inj) 5,000 units Q12HR SQ Last administered on 08/24/17at 21:46; Start 08/17/17 at 09:00; Stop 08/25/17 at 09:00; Status DC Metoprolol Tartrate (Lopressor Inj) 2.5 mg ONCE ONCE IV PUSH Last administered on 08/17/17at 07:53; Start 08/17/17 at 07:45; Stop 08/17/17 at 07:47 ; Status DC Vancomycin HCl 1000 mg/Sodium Chloride 250 ml @ 250 mls/hr ONCE ONCE IV Last administered on 08/17/17at 11:06; Start 08/17/17 at 10:00; Stop 08/18/17 at 08:00 ; Status DC Furosemide (Lasix Inj) 40 mg ONCE ONCE IV PUSH Last administered on 08/17/17at 13:39; Start 08/17/17 at 13:30; Stop 08/17/17 at 13:31; Status DC Propofol 100 ml @ 2.19 mls/hr TITRATE PRN IV SEDATION Last administered on at 10:24; Start 08/17/17 at 18:30; Stop 08/25/17 at 09:00; Status DC Potassium Chloride 100 ml @ 25 mls/hr ONCE ONCE IV Last administered on at 21:42; Start 08/17/17 at 21:15; Stop 08/18/17 at 01:14; Status DC Potassium Chloride (KCl) 40 meq NOW ONCE PO Last administered on 08/17/17at 21: 43; Start 08/17/17 at 21:15; Stop 08/17/17 at 21:16; Status DC Etomidate (Amidate Inj) 40 mg STK-MED ONCE .ROUTE Last administered on at 02:50; Start 08/18/17 at 02:50; Stop 08/18/17 at 02:51; Status DC Polyethylene Glycol/ Electrolytes (Colyte Liq) 4,000 ml ONCE ONCE PO Last administered on 08/18/17at 06:34; Start 08/18/17 at 06:00; Stop 08/18/17 at 06:01 ; Status DC Potassium Chloride 40 meq/ Sodium Chloride 520 ml @ 130 mls/hr ONCE ONCE IV- CENTRAL Last administered on 08/18/17at 10:10; Start 08/18/17 at 09:00; Stop at 12:59; Status DC Ceftriaxone Sodium 2000 mg/ Sodium Chloride 100 ml @ 200 mls/hr Q24H IV Last administered on 08/21/17at 04:20; Start 08/19/17 at 04:00; Stop 08/21/17 at 17:56 ; Status DC Diltiazem HCl (Cardizem Inj) 15 mg ONCE ONCE IV PUSH Last administered on 08/18at 21:05; Start 08/18/17 at 20:15; Stop 08/18/17 at 20:23; Status DC Diltiazem HCl 125 mg/Sodium Chloride 125 ml @ 5 mls/hr TITRATE PRN IV Tachycardia Last administered on 08/20/17at 14:08; Start 08/18/17 at 20:15; Stop 08/24/17 at 17:09; Status DC Potassium Chloride 30 meq/ Sodium Chloride 115 ml @ 38.333 mls/ hr Q3H IV- CENTRAL Last administered on 08/19/17at 07:43; Start 08/19/17 at 04:00; Stop at 09:59; Status DC Sodium Chloride 1,000 ml @ 999 mls/hr BOLUS ONCE IV Last administered on 08/19at 11:25; Start 08/19/17 at 12:00; Stop 08/19/17 at 13:00; Status DC Phenylephrine HCl 40 mg/Dextrose 500 ml @ 30 mls/hr TITRATE PRN IV Blood Pressure Management Last administered on 08/20/17at 00:09; Start 08/19/17 at 10: 30; Stop 08/23/17 at 14:17; Status DC Terbutaline Sulfate (Brethine Inj) 1 mg UNSCH PRN SQ FOR EXTRAVASATION PROTOCOL ; Start 08/19/17 at 10:30; Stop 08/23/17 at 08:47; Status DC Vasopressin 40 units/Dextrose 100 ml @ 1.5 mls/hr TITRATE PRN IV Blood Pressure Management; Start 08/19/17 at 10:30; Stop 08/19/17 at 15:20; Status DC Sodium Chloride 5.5 meq/Sodium Acetate 29.5 meq/ Potassium Chloride 20 meq/ Magnesium Chloride 5 meq/ Calcium Chloride 4.5 meq/ Multivitamins 10 ml/Folic Acid 1 mg/Amino Acids/ Dextrose 1,042.1719 ml @ 42 mls/hr Q24H IV-CENTRAL Last administered on 08/19/17at 20:12; Start 08/19/17 at 20:00; Stop 08/20/17 at 19:59 ; Status DC Fat Emulsion Intravenous 250 ml @ 31.25 mls/ hr Q24H IV-CENTRAL Last administered on 08/20/17at 20:10; Start 08/19/17 at 20:00; Stop 08/26/17 at 08:17 ; Status DC Vasopressin 40 units/Dextrose 100 ml @ 6 mls/hr [id number] IV ; Start 08/19/17 at 15:30; Stop 08/23/17 at 14:17; Status DC Digoxin (Lanoxin Inj) 0.5 mg ONCE ONCE IV PUSH Last administered on 08/19/17at 17:56; Start 08/19/17 at 15:30; Stop 08/19/17 at 15:31; Status DC Parenteral Electrolytes 1,000 ml @ 42 mls/hr [id number] IV Last administered on at 11:20; Start 08/19/17 at 16:00; Stop 08/22/17 at 10:22; Status DC Potassium Phosphate 30 mmol/ Sodium Chloride 260 ml @ 43.333 mls/ hr ONCE ONCE IV Last administered on 08/20/17at 08:10; Start 08/20/17 at 07:00; Stop at 12:59; Status DC Sodium Chloride 5.5 meq/Sodium Acetate 29.5 meq/ Potassium Chloride 20 meq/ Magnesium Chloride 5 meq/ Calcium Chloride 4.5 meq/ Multivitamins 10 ml/Folic Acid 1 mg/Insulin Human Regular 20 units/ Amino Acids/ Dextrose 1,042.3719 ml @ 42 mls/hr Q24H IV-CENTRAL Last administered on 08/20/17at 20:10; Start 08/20/17 at 20:00; Stop 08/25/17 at 09:00; Status DC Digoxin (Lanoxin Inj) 0.5 mg STK-MED ONCE .ROUTE ; Start 08/20/17 at 12:40; Stop 08/20/17 at 12:41; Status DC Metoprolol Tartrate (Lopressor Inj) 5 mg STK-MED ONCE .ROUTE ; Start 08/20/17 at 12:40; Stop 08/20/17 at 12:41; Status DC Metoprolol Tartrate (Lopressor Inj) 5 mg NOW ONCE IV Last administered on 08/20at 12:45; Start 08/20/17 at 12:45; Stop 08/20/17 at 12:46; Status DC Digoxin (Lanoxin Inj) 0.5 mg NOW ONCE IV Last administered on 08/20/17at 12:46 ; Start 08/20/17 at 12:45; Stop 08/20/17 at 12:46; Status DC Phenylephrine HCl (Neosynephrine/ NS 1000 Mcg/10ml Syr) 1,000 mcg STK-MED ONCE IV ; Start 08/18/17 at 12:00; Stop 08/20/17 at 12:59; Status DC Ephedrine Sulfate (ePHEDrine/NS 25 MG/5 ML SYR) 25 mg STK-MED ONCE IV ; Start at 12:00; Stop 08/20/17 at 12:59; Status DC Propofol (Diprivan 200 Mg/20 ml Inj) 200 mg STK-MED ONCE IV ; Start 08/18/17 at 12:00; Stop 08/20/17 at 12:59; Status DC Potassium Phosphate 30 mmol/ Sodium Chloride 260 ml @ 43.333 mls/ hr ONCE ONCE IV Last administered on 08/21/17at 10:24; Start 08/21/17 at 09:00; Stop at 14:59; Status DC Dexmedetomidine HCl (Precedex Inj) 41 mcg ONCE ONCE IV PUSH Last administered on 08/21/17at 10:25; Start 08/21/17 at 07:30; Stop 08/21/17 at 07:35; Status DC Dexmedetomidine HCl 200 mcg/ Sodium Chloride 52 ml @ 0 mls/hr TITRATE PRN IV SEDATION; Start 08/21/17 at 07:30; Status UNV Digoxin (Lanoxin Inj) 0.125 mg DAILY IV PUSH Last administered on 08/24/17at 09: 31; Start 08/21/17 at 09:00; Stop 08/24/17 at 13:06; Status DC Dexmedetomidine HCl 400 mcg/ Sodium Chloride 100 ml @ 4.05 mls/hr TITRATE PRN IV Desired RASS Last administered on 08/21/17at 11:20; Start 08/21/17 at 08:15; Stop 08/21/17 at 15:04; Status DC Acetaminophen (Tylenol) 650 mg Q4H PRN PO temp greater than 101 Last administered on 08/23/17at 19:52; Start 08/21/17 at 14:15; Stop 08/24/17 at 13:06 ; Status DC Dexmedetomidine HCl 1000 mcg/ Sodium Chloride 250 ml @ 4.05 mls/hr TITRATE PRN IV Desired RASS Last administered on 08/25/17at 04:04; Start 08/21/17 at 15: 15; Stop 08/25/17 at 09:00; Status DC Labetalol HCl (Trandate Inj) 20 mg Q4H PRN IV PUSH SBP greater than 160mm Hg Last administered on 08/21/17at 21:51; Start 08/21/17 at 17:15 Cefepime HCl 2000 mg/Sodium Chloride 100 ml @ 200 mls/hr Q8H IV Last administered on 08/25/17at 01:40; Start 08/21/17 at 18:00; Stop 08/25/17 at 08:59 ; Status DC Vancomycin HCl 1000 mg/Sodium Chloride 250 ml @ 250 mls/hr ONCE ONCE IV Last administered on 08/21/17at 20:29; Start 08/21/17 at 20:00; Stop 08/21/17 at 20:59 ; Status DC Vancomycin HCl (Vancomycin Inj) 1,000 mg STK-MED ONCE .ROUTE ; Start 08/22/17 at 07:02; Stop 08/22/17 at 07:03; Status DC Gentamicin Sulfate (Gentamicin Inj) 240 mg STK-MED ONCE .ROUTE ; Start 08/22/17 at 07:03; Stop 08/22/17 at 07:04; Status DC Vancomycin HCl 1000 mg/Sodium Chloride 250 ml @ 250 mls/hr ONCE ONCE IV ; Start 08/22/17 at 11:00; Stop 08/22/17 at 11:59; Status Cancel Pharmacy Profile Note 0 ml @ 0 mls/hr UNSCH OTHER ; Start 08/22/17 at 10:00; Stop 08/25/17 at 08:59; Status DC Micafungin Sodium 100 mg/Sodium Chloride 100 ml @ 100 mls/hr Q24H IV Last administered on 08/30/17at 11:19; Start 08/22/17 at 11:00; Stop 08/31/17 at 10:05; Status DC Hydrocortisone Sodium Succinate (SoluCORTEF INJ) 25 mg DAILY IV PUSH Last administered on 08/25/17at 08:07; Start 08/23/17 at 09:00; Stop 08/25/17 at 09:16 ; Status DC Water (Free Water) 250 ml Q8HR G-TUBE Last administered on 08/25/17at 04:05; Start 08/22/17 at 14:00; Stop 08/26/17 at 08:17; Status DC Furosemide (Lasix Inj) 40 mg ONCE ONCE IV PUSH Last administered on 08/22/17at 11:40; Start 08/22/17 at 11:00; Stop 08/22/17 at 11:01; Status DC Vancomycin HCl 1250 mg/Sodium Chloride 262.5 ml @ 250 mls/hr Q24H IV Last administered on 08/25/17at 08:17; Start 08/23/17 at 09:00; Stop 08/25/17 at 08:59 ; Status DC Miscellaneous Information SPECIFIC LAB TO BE DARLENE... ONCE ONCE .XX Last administered on 08/25/17at 08:17; Start 08/25/17 at 08:45; Stop 08/25/17 at 08:46 ; Status DC Diatrizoate Meglum/ Diatrizoate Sod ( Gastroview Liq) 18 ml ONCE ONCE PO Last administered on 08/23/17at 19:51; Start 08/23/17 at 19:00; Stop 08/23/17 at 19:01; Status DC Melatonin (Melatonin) 5 mg HS PRN PO SLEEP Last administered on 08/27/17at 01:53 ; Start 08/23/17 at 19:00; Stop 08/29/17 at 12:02; Status DC Oxycodone HCl (Roxicodone) 5 mg Q6H PO Last administered on 08/25/17at 01:39; Start 08/23/17 at 19:00; Stop 08/27/17 at 08:21; Status DC Fentanyl Citrate (fentaNYL INJ) 50 mcg Q1H PRN IV PUSH BREAKTHROUGH PAIN Last administered on 08/25/17at 00:05; Start 08/23/17 at 19:00; Stop 08/25/17 at 09:00 ; Status DC Furosemide (Lasix Inj) 40 mg Q8H IV PUSH Last administered on 08/24/17 11:04; Start 08/23/17 at 20:00; Stop 08/24/17 at 13:06; Status DC Potassium Bicarb/ Potassium Chloride (K-Lyte Cl Eff) 25 meq Q8H NG Last administered on 09/03/17 20:22; Start 08/23/17 at 20:00; Stop 09/04/17 at 12:09; Status DC Heparin Sodium/ Dextrose 250 ml @ 10 mls/hr TITRATE PRN IV Coagulation Management Last administered on 08/27/17at 18:11; Start 08/24/17 at 03:00; Stop 08/30/17 at 12:02; Status DC Artificial Tears (Tears Naturale Opth Soln) 1 drop Q8HR EACH EYE Last administered on 09/07/17 14:30; Start 08/24/17 at 14:00; Stop 09/07/17 at 17:39 ; Status DC Acetaminophen (Tylenol 650 Mg/ 20 ml Liq) 650 mg Q6H PRN NG fever Last administered on 09/09/17 20:17; Start 08/24/17 at 13:00 Famotidine (Pepcid Liq) 20 mg BID NG Last administered on 08/29/17 08:53; Start 08/24/17 at 21:00; Stop 08/29/17 at 14:20; Status DC Digoxin (Lanoxin Liq) 0.125 mg DAILY PO Last administered on 09/13/17at 08:18; Start 08/25/17 at 09:00 Bumetanide 100 ml @ 1 mls/hr Q24H IV Last administered on 08/24/17at 20:18; Start 08/24/17 at 14:00; Stop 08/25/17 at 09:17; Status DC Albumin Human 50 ml @ 60 mls/hr Q12H IV Last administered on 08/26/17at 01:30; Start 08/24/17 at 14:00; Stop 08/26/17 at 02:49; Status DC Ferrous Sulfate (Ferrous Sulfate Liq) 300 mg BID PO Last administered on at 08:17; Start 08/24/17 at 21:00 Fentanyl Citrate (fentaNYL INJ) 50 mcg ONCE ONCE IV PUSH Last administered on 08/24/17at 17:00; Start 08/24/17 at 17:00; Stop 08/24/17 at 17:01; Status DC Midazolam HCl (Versed Inj) 5 mg ONCE ONCE IV Last administered on 08/24/17at 17 :00; Start 08/24/17 at 17:00; Stop 08/24/17 at 17:01; Status DC Norepinephrine Bitartrate 4 mg/ Sodium Chloride 250 ml @ 7.5 mls/hr TITRATE PRN IV Blood pressure management Last administered on 08/25/17at 00:15; Start at 17:15; Stop 08/25/17 at 09:00; Status DC Terbutaline Sulfate (Brethine Inj) 1 mg UNSCH PRN SQ For Extravasation; Start 08/24/17 at 17:15; Stop 08/29/17 at 14:21; Status DC Albuterol/ Ipratropium (Duoneb Neb) 1 ampule Q6HR NEB NEB Last administered on 08/25/17at 08:11; Start 08/24/17 at 22:00; Stop 08/25/17 at 09:33; Status DC Albuterol Sulfate (Albuterol Neb) 2.5 mg Q2HR NEB PRN NEB dyspnea; Start at 17:15; Stop 08/25/17 at 09:33; Status DC Sodium Chloride (NS Flush) DAILY IV FLUSH Last administered on 09/13/17at 08:19 ; Start 08/25/17 at 09:00 Sodium Chloride (NS Flush) UNSCH PRN IV FLUSH SEE PROTOCOL Last administered on 09/04/17at 07:49; Start 08/24/17 at 17:45 Cefepime HCl 2000 mg/Sodium Chloride 100 ml @ 200 mls/hr Q12H IV Last administered on 08/29/17at 02:15; Start 08/25/17 at 14:00; Stop 08/29/17 at 12:02; Status DC Albuterol/ Ipratropium (Duoneb Neb) 1 ampule Q4HR NEB NEB Last administered on 08/29/17at 11:09; Start 08/25/17 at 12:00; Stop 08/29/17 at 11:59; Status DC Albuterol/ Ipratropium (Duoneb Neb) 1 ampule Q2HR NEB PRN NEB SHORTNESS OF BREATH; Start 08/25/17 at 10:00; Stop 09/04/17 at 18:55; Status DC Miscellaneous Information D/C ICU ELECTROLYTE ORDERS... UNSCH PRN .XX SEE DOSE INSTRUCTIONS; Start 08/25/17 at 15:00 Miscellaneous Information ICU - CALL ORDERING PHYSIC... UNSCH PRN .XX SEE DOSE INSTRUCTIONS; Start 08/25/17 at 15:00 Potassium Chloride 100 ml @ 25 mls/hr UNSCH PRN IV ELECTROLYTE REPLACEMENT Last administered on 08/29/17at 16:51; Start 08/25/17 at 15:00 Potassium Bicarb/ Potassium Chloride (K-Lyte Cl Eff) 50 meq UNSCH PRN PO ELECTROLYTE REPLACEMENT; Start 08/25/17 at 15:00 Potassium Chloride 100 ml @ 50 mls/hr UNSCH PRN IV ELECTROLYTE REPLACEMENT Last administered on 09/01/17at 20:35; Start 08/25/17 at 15:00 Magnesium Sulfate 4 gm/Sodium Chloride 108 ml @ 54 mls/hr UNSCH PRN IV ELECTROLYTE REPLACEMENT; Start 08/25/17 at 15:00 Magnesium Sulfate 2 gm/Sodium Chloride 104 ml @ 52 mls/hr UNSCH PRN IV ELECTROLYTE REPLACEMENT; Start 08/25/17 at 15:00 Magnesium Oxide (Mag-Ox) 800 mg UNSCH PRN PO ELECTROLYTE REPLACEMENT; Start at 15:00 Sodium Phosphate 30 mmol/Sodium Chloride 260 ml @ 43.333 mls/ hr UNSCH PRN IV ELECTROLYTE REPLACEMENT; Start 08/25/17 at 15:00 Potassium Phosphate (K-Phos) 2,000 mg UNSCH PRN PO ELECTROLYTE REPLACEMENT Last administered on 09/11/17at 16:49; Start 08/25/17 at 15:00 Potassium Phosphate 30 mmol/ Sodium Chloride 260 ml @ 43.333 mls/ hr UNSCH PRN IV ELECTROLYTE REPLACEMENT Last administered on 09/02/17at 08:07; Start at 15:00 Metoprolol Tartrate (Lopressor Inj) 2.5 mg Q6H IV PUSH Last administered on at 03:59; Start 08/26/17 at 04:00; Stop 08/26/17 at 08:17; Status DC Fluconazole/ Sodium Chloride 400 ml @ 100 mls/hr Q24H IV Last administered on 08/27/17at 11:40; Start 08/26/17 at 08:00; Stop 08/27/17 at 21:35; Status DC Fluconazole/ Sodium Chloride 400 ml @ 100 mls/hr Q24H IV ; Start 08/26/17 at 10 :00; Status Cancel Metoprolol Tartrate (Lopressor) 50 mg Q12HR PO Last administered on 08/29/17at 08 :53; Start 08/26/17 at 09:00; Stop 08/31/17 at 10:59; Status DC Ipratropium [place] (Atrovent Neb) 0.5 mg Q2HR NEB PRN NEB SHORTNESS OF BREATH Last administered on 09/06/17at 23:22; Start 08/26/17 at 08:00; Stop 09/07/17 at 17:39; Status DC Ipratropium [place] (Atrovent Neb) 0.5 mg Q4HR NEB NEB Last administered on 04/16at 07:39; Start 08/26/17 at 08:00; Stop 09/06/17 at 12:41; Status DC Alprazolam (Xanax) 0.125 mg ONCE ONCE PO Last administered on 08/26/17at 09:02 ; Start 08/26/17 at 08:00; Stop 08/26/17 at 08:28; Status DC Miscellaneous (Pill Splitter) 1 ea UNSCH PRN OTHER SEE LABEL COMMENTS; Start at 08:30; Stop 09/04/17 at 12:39; Status DC Diltiazem HCl (Cardizem Inj) 10 mg ONCE ONCE IV Last administered on at 14:05; Start 08/26/17 at 13:45; Stop 08/26/17 at 13:53; Status DC Diltiazem HCl (Cardizem Inj) 10 mg ONCE ONCE IV ; Start 08/26/17 at 14:15; Stop 08/26/17 at 14:16; Status UNV Diltiazem HCl 125 mg/Sodium Chloride 125 ml @ 5 mls/hr TITRATE PRN IV Tachycardia; Start 08/26/17 at 14:15; Status UNV Diltiazem HCl 125 mg/Sodium Chloride 125 ml @ 5 mls/hr TITRATE PRN IV Tachycardia Last administered on 08/28/17at 20:36; Start 08/26/17 at 14:30; Stop 09/01/17 at 09:30; Status DC Metoprolol Tartrate (Lopressor Inj) 2.5 mg ONCE ONCE IV PUSH Last administered on 08/26/17at 17:05; Start 08/26/17 at 16:15; Stop 08/26/17 at 16:38 ; Status DC Metoprolol Tartrate (Lopressor Inj) 2.5 mg NOW ONCE IV PUSH Last administered on 08/26/17at 18:15; Start 08/26/17 at 18:15; Stop 08/26/17 at 18:16; Status DC Oxycodone HCl (Roxicodone) 5 mg Q6H PRN PO pain 6-10; Start 08/27/17 at 13:00 Furosemide (Lasix Inj) 40 mg BID@09,18 IV PUSH Last administered on 09/02/17at 18 :00; Start 08/27/17 at 09:00; Stop 09/03/17 at 07:38; Status DC Magnesium Sulfate/ Dextrose 100 ml @ 100 mls/hr ONCE ONCE IV Last administered on 08/27/17at 10:35; Start 08/27/17 at 09:00; Stop 08/27/17 at 09:59 ; Status DC Morphine Sulfate (Morphine Inj) 1 mg Q4H PRN IV anxiety/pain 1-10 Last administered on 09/08/17at 03:22; Start 08/27/17 at 11:00 Furosemide (Lasix Inj) 20 mg ONCE STAT IV PUSH Last administered on 08/27/17at 12:00; Start 08/27/17 at 11:41; Stop 08/27/17 at 11:52; Status DC Fluconazole/ Sodium Chloride 200 ml @ 100 mls/hr Q24H IV Last administered on 09/09/17at 08:00; Start 08/28/17 at 08:00; Stop 09/09/17 at 09:03; Status DC Fluconazole/ Sodium Chloride 200 ml @ 100 mls/hr Q24H IV Last administered on 09/08/17at 10:49; Start 08/28/17 at 10:00; Stop 09/09/17 at 09:03; Status DC Furosemide (Lasix Inj) 40 mg STAT ONCE IV PUSH Last administered on 08/28/17at 14:15; Start 08/28/17 at 14:00; Stop 08/28/17 at 14:04; Status DC Dexmedetomidine HCl (Precedex Inj) 36 mcg ONCE ONCE IV PUSH Last administered on 08/29/17 09:00; Start 08/29/17 at 09:00; Stop 08/29/17 at 09:08; Status DC Dexmedetomidine HCl 200 mcg/ Sodium Chloride 52 ml @ 3.71 mls/hr TITRATE PRN IV SEDATION Last administered on 09/01/17at 04:11; Start 08/29/17 at 10:00; Stop at 09:30; Status DC Sodium Chloride 250 ml @ 15 mls/hr ONCE ONCE IV Last administered on at 11:30; Start 08/29/17 at 11:30; Stop 08/30/17 at 04:09; Status DC Diphenhydramine HCl (Benadryl) 25 mg Q4H PRN PO SEE LABEL COMMENTS Last administered on 09/09/17at 22:13; Start 08/29/17 at 11:30; Stop 09/09/17 at 22:13 ; Status DC Furosemide (Lasix Inj) 20 mg ONCE ONCE IV PUSH Last administered on 08/29/17 15:39; Start 08/29/17 at 11:30; Stop 08/29/17 at 11:31; Status DC Phenylephrine HCl (Neosynephrine Inj) 10 mg STK-MED ONCE .ROUTE Last administered on 08/29/17 15:40; Start 08/29/17 at 11:42; Stop 08/29/17 at 11:43; Status DC Miscellaneous Medication (ASP Crit: Other exception documentation) 1 UNSCH X1 PRN .XX PHARMACY DOCUMENTATION; Start 08/29/17 at 12:00; Stop 08/30/17 at 11:59; Status DC Miscellaneous Medication ([facility] Information) 1 UNSCH X1 PRN XX PHARMACY DOCUMENTATION; Start 08/29/17 at 12:00; Stop 08/30/17 at 11:59; Status DC Meropenem 1000 mg/ Sodium Chloride 100 ml @ 200 mls/hr Q8H IV Last administered on 08/30/17at 00:40; Start 08/29/17 at 15:00; Stop 08/30/17 at 15:18; Status DC Linezolid 300 ml @ 300 mls/hr Q12H IV Last administered on 09/02/17at 02:00; Start 08/29/17 at 14:00; Stop 09/02/17 at 08:05; Status DC Methylprednisolone Sodium Succinate (SoluMEDROL INJ) 125 mg STK-MED ONCE .ROUTE ; Start 08/29/17 at 12:24; Stop 08/29/17 at 12:25; Status DC Methylprednisolone Sodium Succinate (SoluMEDROL INJ) 125 mg STAT ONCE IV ; Start 08/29/17 at 13:45; Stop 08/29/17 at 13:46; Status DC Phenylephrine HCl 40 mg/Dextrose 500 ml @ 30 mls/hr TITRATE PRN IV Blood Pressure Management Last administered on 08/29/17at 11:30; Start 08/29/17 at 14:00 ; Stop 09/01/17 at 09:30; Status DC Terbutaline Sulfate (Brethine Inj) 1 mg UNSCH PRN SQ FOR EXTRAVASATION PROTOCOL ; Start 08/29/17 at 14:00; Stop 09/06/17 at 13:04; Status DC Famotidine (Pepcid) 10 mg BID NG Last administered on 09/06/17at 09:19; Start at 21:00; Stop 09/06/17 at 16:12; Status DC Enoxaparin Sodium (Lovenox Inj) 100 mg Q24H SQ Last administered on 09/13/17at 16:10; Start 08/30/17 at 15:00 Methylprednisolone Sodium Succinate (SoluMEDROL INJ) 40 mg Q12H IV PUSH Last administered on 09/06/17at 12:34; Start 08/30/17 at 13:00; Stop 09/06/17 at 12:43 ; Status DC Metoprolol Tartrate (Lopressor) 12.5 mg Q8HR PO Last administered on 08/30/17at 22:16; Start 08/30/17 at 14:00; Stop 08/31/17 at 10:45; Status DC Miscellaneous (Pill Splitter) 1 ea UNSCH PRN OTHER SEE LABEL COMMENTS Last administered on 09/01/17at 09:12; Start 08/30/17 at 13:00 Meropenem 1000 mg/ Sodium Chloride 100 ml @ 200 mls/hr Q12H IV Last administered on 09/02/17at 03:57; Start 08/30/17 at 16:00; Stop 09/02/17 at 08:10; Status DC Multi-Ingredient Mouthwash/Gargle (Magic Mouthwash Adult Liq) 5 ml QID PRN SWISH-SPIT MOUTH SORES Last administered on 09/04/17at 21:07; Start 08/30/17 at 19: 15; Stop 09/05/17 at 09:30; Status DC Metoprolol Tartrate (Lopressor) 25 mg Q8HR PO Last administered on 09/03/17 06: 02; Start 08/31/17 at 14:00; Stop 09/03/17 at 07:38; Status DC Diltiazem HCl (Cardizem) 60 mg Q6HR PO Last administered on 09/05/17at 05:38; Start 09/01/17 at 12:00; Stop 09/05/17 at 11:48; Status DC Insulin Human Regular (NovoLIN R SUPPLEMENTAL SCALE) 1 ACHS SLIDING SCALE SQ Last administered on 09/02/17at 20:56; Start 09/01/17 at 17:00; Stop 09/04/17 at 09: 00; Status DC Temazepam (Restoril) 7.5 mg NOW ONCE PO Last administered on 09/01/17 21:45; Start 09/01/17 at 21:30; Stop 09/01/17 at 21:31; Status DC Linezolid (Zyvox) 600 mg Q12H PO Last administered on 09/04/17at 00:33; Start 09/02/17 at 14:00; Stop 09/04/17 at 08:54; Status DC Cefepime HCl 2000 mg/Sodium Chloride 100 ml @ 200 mls/hr Q8H IV Last administered on 09/03/17at 01:00; Start 09/02/17 at 09:00; Stop 09/03/17 at 08:16; Status DC Furosemide (Lasix Inj) 40 mg DAILY IV PUSH Last administered on 09/03/17at 08:10 ; Start 09/03/17 at 09:00; Stop 09/04/17 at 07:19; Status DC Metoprolol Tartrate (Lopressor) 50 mg Q12HR PO Last administered on 09/13/17at 08:16; Start 09/03/17 at 09:00 Clonidine (Catapres) 0.1 mg Q8H PO Last administered on 09/03/17at 16:26; Start 09/03/17 at 08:00; Stop 09/04/17 at 07:19; Status DC Cefepime HCl 2000 mg/Sodium Chloride 100 ml @ 200 mls/hr Q12H IV Last administered on 09/04/17at 00:33; Start 09/03/17 at 13:00; Stop 09/04/17 at 08:54; Status DC Alprazolam (Xanax) 0.125 mg ONCE ONCE PO Last administered on 09/03/17at 09:00; Start 09/03/17 at 09:00; Stop 09/03/17 at 09:01; Status DC Clonidine (Catapres) 0.2 mg Q8H PO Last administered on 09/13/17at 08:16; Start 09/04/17 at 08:00 Albuterol/ Ipratropium (Duoneb Neb) 1 ampule Q4HR NEB NEB Last administered on 09/04/17 15:31; Start 09/04/17 at 08:00; Stop 09/04/17 at 18:55; Status DC Temazepam (Restoril) 7.5 mg ONCE ONCE PO Last administered on 09/04/17 21:06; Start 09/04/17 at 21:00; Stop 09/04/17 at 21:01; Status DC Sodium Chloride 500 ml @ 500 mls/hr BOLUS ONCE IV Last administered on at 07:36; Start 09/05/17 at 07:15; Stop 09/05/17 at 08:14; Status DC Multi-Ingredient Mouthwash/Gargle (Magic Mouthwash Adult Liq) 5 ml ACHS SWISH- SWAL Last administered on 09/13/17at 16:10; Start 09/05/17 at 12:00 Diltiazem HCl (Cardizem) 90 mg Q6HR PO Last administered on 09/13/17at 13:25; Start 09/05/17 at 12:00 Temazepam (Restoril) 7.5 mg ONCE ONCE PO Last administered on 09/05/17at 19:50; Start 09/05/17 at 21:00; Stop 09/05/17 at 21:01; Status DC Temazepam (Restoril) 30 mg HS PRN PO SLEEP Last administered on 09/06/17at 23:11 ; Start 09/06/17 at 12:45; Stop 09/07/17 at 17:39; Status DC Albuterol/ Ipratropium (Duoneb Neb) 1 ampule Q6HR NEB NEB Last administered on 09/08/17at 21:24; Start 09/06/17 at 16:00; Stop 09/09/17 at 12:41; Status DC Prednisone (Deltasone) 10 mg DAILY PO Last administered on 09/09/17at 08:47; Start 09/07/17 at 09:00; Stop 09/09/17 at 14:12; Status DC Dextrose (D50w (Vial) Inj) 50 ml UNSCH PRN IV PUSH HYPOGLYCEMIA-SEE COMMENTS; Start 09/06/17 at 12:45; Stop 09/06/17 at 14:15; Status DC Glucagon (Glucagon Inj) 1 mg UNSCH PRN OTHER HYPOGLYCEMIA-SEE COMMENTS; Start 09/06/17 at 12:45; Stop 09/06/17 at 14:15; Status DC Insulin Aspart (NovoLOG SUPPLEMENTAL SCALE) 1 ACHS SLIDING SCALE SQ ; Start 04/16 at 17:00; Stop 09/11/17 at 08:02; Status DC Famotidine (Pepcid) 20 mg BID NG Last administered on 09/13/17at 08:17; Start at 21:00 Albuterol Sulfate (Albuterol Neb) 2.5 mg Q2HR NEB PRN NEB dyspnea; Start at 17:45; Stop 09/09/17 at 12:41; Status DC Bismuth Subsalicylate (Pepto-Bismol Liq) 15 ml ONCE ONCE PO Last administered on 09/08/17at 12:16; Start 09/08/17 at 11:15; Stop 09/08/17 at 11:18; Status DC Temazepam (Restoril) 15 mg HS PRN PO insomnia; Start 09/08/17 at 11:15; Stop at 14:11; Status DC Temazepam (Restoril) 30 mg HS PRN PO insomnia Last administered on 09/13/17at 01 :18; Start 09/08/17 at 21:00; Stop 09/13/17 at 15:22; Status DC Clotrimazole (Mycelex) 10 mg 5 TIMES A DAY BUCCAL Last administered on at 13:26; Start 09/08/17 at 18:00 Padimate O ([place]) 1 applic ONCE ONCE TOPICAL Last administered on at 17:48; Start 09/08/17 at 14:15; Stop 09/08/17 at 14:17; Status DC Sodium Chloride ([place]) 2 spray Q4H PRN EACH NARE NASAL CONGESTION Last administered on 09/11/17at 08:55; Start 09/08/17 at 14:15 Magnesium Sulfate/ Dextrose 100 ml @ 100 mls/hr ONCE ONCE IV Last administered on 09/08/17at 22:54; Start 09/08/17 at 20:30; Stop 09/08/17 at 21:29 ; Status DC Fluconazole (Diflucan) 800 mg DAILY PO Last administered on 09/13/17at 08:17; Start 09/09/17 at 10:00; Stop 10/05/17 at 09:59 Ipratropium [place] (Atrovent Neb) 0.5 mg Q4HR NEB PRN NEB dyspnea Last administered on 09/12/17at 21:01; Start 09/09/17 at 12:45 Glycerin (Glycerin Top Soln) 10 ml DAILY TOPICAL ; Start 09/10/17 at 09:00; Stop 09/10/17 at 09:00; Status DC Glycerin (Glycerin Top Soln) 10 ml ONCE ONCE TOPICAL ; Start 09/09/17 at 14:00 ; Stop 09/09/17 at 14:15; Status DC Prednisone (Deltasone) 5 mg DAILY PO Last administered on 09/13/17at 08:17; Start 09/10/17 at 09:00; Stop 09/15/17 at 08:59 Furosemide (Lasix Inj) 20 mg ONCE ONCE IV PUSH Last administered on 09/09/17at 15:22; Start 09/09/17 at 14:15; Stop 09/09/17 at 14:16; Status DC Lidocaine HCl (Xylocaine 2% Jelly) 5 ml ONCE ONCE TOPICAL ; Start 09/09/17 at 16:15; Stop 09/09/17 at 16:16; Status DC Ipratropium [place] (Atrovent Neb) 0.5 mg Q6HR NEB NEB Last administered on at 09:29; Start 09/10/17 at 16:00 Loperamide HCl (Imodium) 2 mg Q4H PRN PO diarrhea Last administered on at 07:27; Start 09/10/17 at 15:00 Potassium Chloride (KCl) 30 meq ONCE ONCE PO Last administered on 09/10/17at 17 :43; Start 09/10/17 at 15:00; Stop 09/10/17 at 15:07; Status DC Guaifenesin (Mucinex Er) 600 mg BID PO Last administered on 09/13/17at 08:16; Start 09/10/17 at 21:00 Insulin Aspart (NovoLOG SUPPLEMENTAL SCALE) 1 Q4H SQ ; Start 09/11/17 at 12:00 Lorazepam (Ativan) 0.5 mg Q12H PRN PO anxiety Last administered on 09/13/17at 03 :31; Start 09/12/17 at 14:45; Stop 09/13/17 at 15:22; Status DC Lorazepam (Ativan) 0.5 mg Q6HR PRN PO anxiety Last administered on 09/13/17at 16 :10; Start 09/13/17 at 15:30 Temazepam (Restoril) 15 mg HS PRN PO insomnia; Start 09/13/17 at 15:30 A/P Assessment and Plan This is a 82-year-old female who presented respiratory failure Acute metabolic encephalopathy, improved 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 08/15: CT brain negative for acute intracranial process MRI brain: Small lacunar infarcts in left cerebellar hemisphere and right parietal lobe EEG: Severe encephalopathy Repeat EEG 08/21.- generalized slowing, no epileptiform features Continue thiamine, multivitamin and folic acid daily. Neuro is following- Dr. Danielle LP showed clear CSF, 17 WBC, TP:45.2 Generally weak - PT and OT following. PT recommending acute rehab Continue aspirin 81 mg daily with enoxaparin 100 mg IV twice daily Temazepam 30 mg at night for insomnia We will give Ativan as needed for anxiety. Acute respiratory failure, worsening since last night Bilateral pleural effusions -resolved Status post bilateral CT-guided thoracentesis by IR on 08/29 with drainage of 500 cc of pleural fluid on right and 300 cc from left(transudative fluid) Thoracentesis wasn't done by IR on 09/04 as pleural effusion is too small per CT images. Currently on prednisone 5 mg daily for 5 days and discontinue Stat chest x-ray repeated which shows increase pleural effusion with bilateral interstitial infiltrate Most likely secondary to CHF exacerbation. Will start Lasix 20 mg IV twice daily. Monitor clinically. Recommend BiPAP to patient although she stated that makes her very uncomfortable. Patient has Ativan as needed for anxiety. 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 Digoxin level 1.2 on 09/08 Clonidine0.2mg Q8 for blood pressure Repeat Echo showed EF 45-50%, Lateral leaflet mitral valve with a 2 mm mobile density, consistent with ? endocarditis Cardiology following, Dr. Myers. FERNANDO on hold for now given resp status unless recurrent blood culture positivity. Continue aspirin 81 mg by mouth daily/home medication Acute kidney injury, resolved Lactic acidemia, resolved Rhabdomyolysis resolved Right-sided nephrolithiasis/nonobstructing Left renal cyst Monitor renal function, intake and output and avoid nephrotoxins. Renal has followed-Dr. Figueroa, abdomen: No hydronephrosis CT Abd/pelvis revealed nonobstructing right-sided nephrolithiasis and left renal cyst. Continue straight cath. As needed. Ischemic colitis, resolved Severe acute on Chronic protein energy malnutrition AST elevation secondary to alcohol use Internal and external hemorrhoids Speech eval. Ensure with each meal. NG tube placed 09/09 with dietary consultation for tube feed recommendations. Currently on Glucerna 1.5 at 20 cc an hour advance to 45ml/hr as ligia. Encourage oral intake. On Magic mouthwash secondary to burning sensation and sore throat. F/u stool C diff ordered 09/05 per ID negative On famotidine 20 mg twice a day for GI prophylaxis. US liver: No abnormalities identified GI has followed- colonoscopy showed diffuse colitis in the sigmoid colon and descending colon; Necrotic, dusky appearing mucosa. Consistent with severe ischemic colitis. General surgery, Dr. Guadalupe -plan to treat conservatively unless patient worsens clinically. Repeat CT abdomen and pelvis 08/23 mild diffuse colitis Reconsult GI for odynophagia. Patient refused EGD Septic shock resolved UTI Ischemic colitis Fungemia - Felipa parapsilosis Possible endocarditis Abx per ID -Continue fluconazole 800 mg IV daily , Monitor for signs of infections ( Fever, WBC). Seen by Opth no evidence of endophthalmitis Pertinent cultures 08/29 pleural fluid culture NGTD. 08/26 and 08/29 blood cultures Negative 08/23 - blood culture by line (actually peripheral) - Staph hominus 08/21 - blood culture - no growth 08/21 - sputum - no growth 08/21 - - no growth 08/21 - blood culture - Felipa parapsilosis 08/15 - CSF - negative 08/15 - sputum - no growth 08/14 - blood cultures 2 and UA - no growth C-diff PCR is negative, stool studies negative s/p LP showed clear CSF, 17 WBC, TP:45.2, HSV DNA PCR neg Hyperglycemia of critical illness/steroid SSI with accucheks Q4 TSH: 1.15. Leukocytosis Normocytic anemia B/L UE DVT Possible left common femoral vein DVT Left cephalic/basilic superficial and right superficial cephalic thrombus Monitor CBC, coags- heparin drip stopped on 08/30 and started on Enoxaparin 100 mg subcutaneously daily for full anticoagulation. Iron sulfate 300 mg twice a day. 1 unit PRBCs ordered to be transfused on 08/29 GI prophylaxis with famotidine and DVT prophylaxis with SCDs, Enoxaparin 100mg subcut daily Discharge Planning Respiratory status is worsening most likely secondary to being volume overloaded. She will need to remain in the [facility] for close monitoring and BiPAP. Susanna Martínez MD Sep 13, 2017 16:26
[2017-09-13] MEDS: FUROSEMIDE 20 MG/2 ML VIAL IV PUSH SCH ×2 (16:45→18:14)
[2017-09-13] MEDS: MORPHINE SULFATE 2 MG/ML INJ IV PRN (17:23)
[2017-09-13] MEDS ORDERED: SODIUM CHLORID 0.9% 500 ML INJ 500 ML IV ONE (23:30)
[2017-09-14] VITALS (10 sets, daily range): BP systolic 93–111; BP diastolic 53–70; PULSE 69–125; RESP 18–28; TEMP 97.3–99.5; O2SAT 89–100
[2017-09-14] MEDS: LORazepam 0.5 MG TAB PO PRN ×3 (01:29→23:57)
[2017-09-14] MEDS: INSULIN ASPART SUPPLEMENTAL SCALE SQ SCH ×5 (04:00→16:00)
[2017-09-14] MEDS: LOPERAMIDE HCL 2 MG CAP PO PRN (04:34)
[2017-09-14] MEDS: CLOTRIMAZOLE 10 MG TROCHE BUCCAL SCH ×5 (04:34→22:00)
[2017-09-14] MEDS: DILTIAZEM HCL 90 MG TAB PO SCH ×3 (04:40→18:07)
[2017-09-14] MEDS: RESP: IPRATROPIUM 0.5 MG/2.5 ML NEB NEB SCH ×4 (04:59→21:35)
[2017-09-14] MEDS: cloNIDine HCL 0.2 MG TAB PO SCH ×2 (08:00→16:00)
[2017-09-14] MEDS: predniSONE 5 MG TAB PO SCH (08:29)
[2017-09-14] MEDS: FOLIC ACID 1 MG TAB PO SCH (08:29)
[2017-09-14] MEDS: FERROUS SULFATE 300 MG /5ML UDC PO SCH ×2 (08:29→21:24)
[2017-09-14] MEDS: DIGOXIN SOLUTION 0.125 MG/2.5 ML CUP PO SCH (08:30)
[2017-09-14] MEDS: THIAMINE HCL 100 MG TAB PO SCH (08:31)
[2017-09-14] MEDS: METOPROLOL TARTRATE 50 MG TAB PO SCH ×2 (08:31→21:25)
[2017-09-14] MEDS: MULTIVITAMIN TAB PO SCH (08:32)
[2017-09-14] MEDS: FAMOTIDINE 20 MG TAB NG SCH ×2 (08:32→21:25)
[2017-09-14] MEDS: guaiFENesin E.R. 600 MG TAB PO SCH ×2 (08:32→21:25)
[2017-09-14] MEDS: ASPIRIN 81 MG CHEW TAB OG-TUBE SCH (08:32)
[2017-09-14] MEDS: FLUCONAZOLE 200 MG TAB PO SCH (08:41)
[2017-09-14] MEDS: FUROSEMIDE 20 MG/2 ML VIAL IV PUSH SCH ×2 (08:44→18:07)
[2017-09-14] MEDS: NYSTAT/DIPHENHY/LIDO MOUTHWASH (Adult) 120ML SWISH-SWAL SCH ×4 (08:44→21:00)
[2017-09-14] MEDS: SODIUM CHLORIDE 0.9% FLUSH 10 ML FLUSH IV FLUSH SCH ×3 (09:00→21:25)
[2017-09-14] MEDS: ENOXAPARIN SODIUM 100 MG/ML SYRINGE SQ SCH (13:07)
--- NOTE | 2017-09-14 14:46 | HHI.PR ---
Subjective Remarks Follow-up for acute respiratory failure due to CHF exacerbation Patient stated breathing has improved. She is asking if her Ativan can be as needed. I spoke to patient stated that Ativan is written as needed. But will check again. Patient's nurse Wisam is at the bedside during the interview. Daughter asked also if okay to start probiotics. Objective Vitals Vital Signs Date Time Temp Pulse Resp B/P (MAP) Pulse Ox O2 Delivery O2 Flow Rate FiO2 09/14/17 12:00 98.1 76 21 108/57 (74) 100 09/14/17 08:00 97.3 91 18 93/56 (68) 95 09/14/17 08:00 Nasal Cannula 5.00 09/14/17 06:00 95 09/14/17 05:35 19 09/14/17 04:00 95 Nasal Cannula 5.00 09/14/17 04:00 99.5 118 107/70 (82) 89 09/14/17 04:00 118 09/14/17 02:00 79 09/14/17 01:18 98 Nasal Cannula 6.00 09/14/17 00:00 99.2 69 95/53 (67) 100 09/14/17 00:00 100 Bi-Pap 11.00 30 09/14/17 00:00 69 09/13/17 22:47 100 50 09/13/17 22:00 99 09/13/17 20:00 98 09/13/17 20:00 98.7 98 136/62 (86) 94 09/13/17 20:00 100 Bi-Pap 11.00 30 09/13/17 18:00 101 09/13/17 17:53 99 BiPAP 09/13/17 17:28 21 18 17:05 99 50 09/13/17 16:28 97 Partial Rebreather 12.00 09/13/17 16:00 97.6 104 99/60 (73) 92 09/13/17 16:00 100 Bi-Pap 11.00 30 09/13/17 16:00 78 I/O 09/13/1718 18 09/14/17 09/14/17 09/14/17 07:00 15:00 23:00 07:00 15:00 23:00 Intake Total 882 ml 1791 ml Output Total 650 ml 1350 ml 1550 ml Balance 232 ml -1350 ml 241 ml Intake Oral 240 ml 400 ml Tube Feeding 242 ml 991 ml Other 400 ml 400 ml Output Urine Total 650 ml 1350 ml 1550 ml Bladder Scan Volume Amount 746 ml # Bowel Movements 3 2 Result Diagram: 09/13/17 1255 09/13/17 1255 Imaging Last Impressions Chest X-Ray 09/13/17 0000 Signed Impressions: Service Date/Time: Wednesday, September 13, 2017 15:27 - CONCLUSION: 1. Bilateral effusions and diffuse bilateral infiltrates suggesting interstitial edema. The heart is mildly enlarged. There is consolidation of the left lower lobe. Appearance of the parenchyma similar to previous dated 09/11/17. Erik Joel MD Abdomen X-Ray 09/09/17 0000 Signed Impressions: Service Date/Time: Saturday, September 09, 2017 18:20 - CONCLUSION: Dobbhoff feeding tube is in the proximal duodenum. Adan Nunes MD Thoracentesis 09/04/17 0000 Signed Impressions: Service Date/Time: August 15:12 - CONCLUSION: 1. Small bilateral pleural effusions with concomitant atelectatic changes. 2. Fluid collections are too small to safely drain percutaneously with CT. Shashi Moreno MD Chest Ultrasound 09/04/17 0000 Signed Impressions: Service Date/Time: August 09:23 - CONCLUSION: Right pleural effusion as above. Shashi Moreno MD Chest CT 08/29/17 0000 Signed Impressions: Service Date/Time: Tuesday, August 29, 2017 14:48 - CONCLUSION: Following thoracentesis there is decreasing amount of effusion. Significant consolidation persists. There is no pneumothorax. Juan J Joel MD FACR Abdomen/Pelvis CT 08/23/17 1426 Signed Impressions: Service Date/Time: Wednesday, August 23, 2017 22:50 - CONCLUSION: 1. Suspected mild diffuse colitis, nonspecific but presumably infectious or inflammatory. No obstruction or abscess. 2. Trace ascites about the same there is worsening anasarca and worsening pleural effusions and consolidation of both lung bases. 3. Tiny nonobstructing stone of the right kidney and a generally benign appearing cyst lower pole the left kidney. No evidence of obstructive uropathy or other etiology for acute renal failure. 4. Atherosclerotic aorta. No aneurysm. Adan Nunes MD Upper Extremity Ultrasound 08/23/17 0000 Signed Impressions: Service Date/Time: Wednesday, August 23, 2017 16:25 - CONCLUSION: Bilateral upper extremity DVT as described above. Samuel Peralta MD Lower Extremity Ultrasound 08/23/17 0000 Signed Impressions: Service Date/Time: Wednesday, August 23, 2017 15:50 - CONCLUSION: 1. There is incomplete compression of the left common femoral vein raising suspicion for nonocclusive thrombus. This vessel, however, still demonstrates normal Doppler blood flow and respiratory variability. 2. The remaining veins of the left lower extremity are patent and the entire right lower extremity is patent without thrombus. Adan Machuca MD Lumbar Puncture Fluoroscopy 08/15/17 Signed Impressions: Service Date/Time: Tuesday, August 15, 2017 15:36 - CONCLUSION: 1. Uncomplicated fluoroscopically guided lumbar puncture. 2. Please note, requested opening pressures were not obtained due to technical difficulties. Shashi Moreno MD Brain MRI 08/15/17 Signed Impressions: Service Date/Time: Tuesday, August 15, 2017 16:57 - CONCLUSION: 1. 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 2. Mild stenosis in the upper cervical spine as above. Esau Martell MD Abdomen Ultrasound 08/15/17 Signed Impressions: Service Date/Time: Tuesday, August 15, 2017 10:40 - CONCLUSION: 1. No abnormality is identified to explain the clinical symptoms. There is no hydronephrosis. 2. The liver is normal in size and echotexture. Adan Machuca MD Head CT 08/14/172231 Signed Impressions: Service Date/Time: July 22:54 - CONCLUSION: Unremarkable study. KStepan Villagomez MD Objective Remarks GENERAL: 82-year-old female currently resting in bed on nasal cannula in place. CARDIOVASCULAR: IRR. S1, S2 no S4. Without murmur RESPIRATORY: Mild basilar crackles otherwise clear to auscultation. GASTROINTESTINAL: Abdomen soft, non-tender. Mildly distended. Bowel sounds hypoactive but present. No guarding or rigidity MUSCULOSKELETAL: Trace edema, more prominent LUE. NEURO: Awake alert oriented 3, conversant. Following commands, no obvious focal deficits Medications and IVs Current Medications Etomidate (Amidate Inj) 40 mg STK-MED ONCE .ROUTE ; Start 08/14/17 at 22:38; Stop 08/14/17 at 22:52; Status DC Succinylcholine Chloride (Quelicin Inj) 200 mg STK-MED ONCE .ROUTE ; Start 08/14 at 22:38; Stop 08/14/17 at 22:52; Status DC Etomidate (Amidate Inj) 40 mg STK-MED ONCE .ROUTE ; Start 08/14/17 at 22:39; Stop 08/14/17 at 22:52; Status DC Sodium Chloride 1,000 ml @ 999 mls/hr BOLUS ONCE IV Last administered on 08/15at 00:27; Start 08/15/17 at 00:15; Stop 08/15/17 at 01:15; Status DC Ceftriaxone Sodium 1000 mg/ Sodium Chloride 100 ml @ 200 mls/hr ONCE ONCE IV Last administered on 08/15/17at 00:27; Start 08/15/17 at 00:15; Stop 08/15/17 at 00:44; Status DC Metronidazole 100 ml @ 100 mls/hr ONCE ONCE IV Last administered on at 01:26; Start 08/15/17 at 00:15; Stop 08/15/17 at 01:14; Status DC Sodium Chloride 1,000 ml @ 999 mls/hr BOLUS ONCE IV Last administered on 08/15at 01:42; Start 08/15/17 at 01:45; Stop 08/15/17 at 02:45; Status DC Sodium Chloride 1,000 ml @ 100 mls/hr Q10H IV Last administered on 08/15/17at 02:57; Start 08/15/17 at 01:58; Stop 08/15/17 at 02:58; Status DC Sodium Chloride (NS Flush) 2 ml UNSCH PRN IV FLUSH FLUSH AFTER USING IV ACCESS Last administered on 09/12/17at 08:09; Start 08/15/17 at 02:00 Sodium Chloride (NS Flush) 2 ml BID IV FLUSH Last administered on 09/14/17at 09: 00; Start 08/15/17 at 09:00 Naloxone HCl (Narcan Inj) 0.4 mg UNSCH PRN IV PUSH SEE LABEL COMMENTS; Start at 02:00 Sodium Chloride 1,000 ml @ 999 mls/hr BOLUS ONCE IV Last administered on 08/15at 02:32; Start 08/15/17 at 02:00; Stop 08/15/17 at 03:00; Status DC Metronidazole 100 ml @ 100 mls/hr Q6H IV Last administered on 08/29/17at 08:52; Start 08/15/17 at 08:00; Stop 08/29/17 at 12:02; Status DC Thiamine HCl (Thiamine Inj) 100 mg ONCE ONCE IM Last administered on at 02:57; Start 08/15/17 at 02:00; Stop 08/15/17 at 02:04; Status DC Thiamine HCl 100 mg/Sodium Chloride 101 ml @ 101 mls/hr DAILY IV Last administered on 08/15/17at 09:44; Start 08/15/17 at 09:00; Stop 08/15/17 at 10:23 ; Status DC Pharmacy Profile Note 0 ml @ 0 mls/hr UNSCH OTHER ; Start 08/15/17 at 02:15; Stop 08/18/17 at 08:00; Status DC Piperacillin Sod/ Tazobactam Sod 50 ml @ 200 mls/hr Q8H IV ; Start 08/15/17 at 03:00; Stop 08/15/17 at 03:00; Status DC Vancomycin HCl 1000 mg/Sodium Chloride 250 ml @ 250 mls/hr ONCE ONCE IV Last administered on 08/15/17at 03:44; Start 08/15/17 at 03:00; Stop 08/15/17 at 03:59 ; Status DC Ampicillin Sodium 2000 mg/Sodium Chloride 100 ml @ 400 mls/hr Q4H IV Last administered on 08/15/17at 03:21; Start 08/15/17 at 03:00; Stop 08/15/17 at 07:09 ; Status DC Ceftriaxone Sodium 2000 mg/ Sodium Chloride 100 ml @ 200 mls/hr Q12H IV ; Start 08/15/17 at 13:00; Stop 08/15/17 at 13:00; Status DC Ceftriaxone Sodium 1000 mg/ Sodium Chloride 100 ml @ 200 mls/hr ONCE ONCE IV Last administered on 08/30/17at 06:23; Start 08/15/17 at 04:00; Stop 08/15/17 at 04:29; Status DC Sodium Bicarbonate 100 meq/Dextrose 1,100 ml @ 100 mls/hr Q11H IV Last administered on 08/18/17at 03:38; Start 08/15/17 at 03:00; Stop 08/18/17 at 07:56 ; Status DC Atropine Sulfate (Atropine Inj) 1 mg STK-MED ONCE .ROUTE ; Start 08/15/17 at 05: 34; Stop 08/15/17 at 05:35; Status DC Epinephrine HCl (EPINEPHrine (1:10,000) INJ) 1 mg STK-MED ONCE .ROUTE ; Start at 05:35; Stop 08/15/17 at 05:36; Status DC Sodium Bicarbonate (Sodium Bicarbonate 8.4% Inj) 50 meq ONCE ONCE IV PUSH Last administered on 08/15/17at 06:05; Start 08/15/17 at 06:00; Stop 08/15/17 at 06:01; Status DC Sodium Chloride 1,000 ml @ 999 mls/hr BOLUS ONCE IV Last administered on 08/15at 06:06; Start 08/15/17 at 06:00; Stop 08/15/17 at 07:00; Status DC Hydrocortisone Sodium Succinate (SoluCORTEF INJ) 100 mg Q8HR IV PUSH Last administered on 08/15/17at 06:05; Start 08/15/17 at 06:00; Stop 08/15/17 at 10:41 ; Status DC Norepinephrine Bitartrate 250 ml @ 7.5 mls/hr TITRATE PRN IV Blood pressure management; Start 08/15/17 at 06:00; Stop 08/15/17 at 07:31; Status DC Terbutaline Sulfate (Brethine Inj) 1 mg UNSCH PRN SQ For Extravasation; Start 08/15/17 at 06:00; Stop 08/15/17 at 08:35; Status DC Heparin Sodium (Porcine) (Heparin Inj) 3,000 units ONCE ONCE IV PUSH ; Start at 06:00; Stop 08/15/17 at 06:12; Status DC Heparin Sodium/ Dextrose 250 ml @ 9 mls/hr TITRATE PRN IV Coagulation Management; Start 08/15/17 at 06:00; Stop 08/15/17 at 10:41; Status DC Miscellaneous Information Patient in critical care unit? Ass... [id number] .XX Last administered on 08/15/17at 06:15; Start 08/15/17 at 06:15 Chlorhexidine Gluconate (Chlorhexidine 2% Cloth) 3 pack DAILY@04 TOPICAL Last administered on 08/20/17at 04:00; Start 08/16/17 at 04:00; Stop 08/20/17 at 04:01 ; Status DC Chlorhexidine Gluconate (Chlorhexidine 2% Cloth) 3 pack UNSCH PRN TOPICAL HYGIENIC CARE; Start 08/15/17 at 06:15; Stop 08/20/17 at 06:14; Status DC Flumazenil (Romazicon Inj) 0.2 mg Q1M PRN IV PUSH SEE LABEL COMMENTS; Start at 06:30; Stop 09/06/17 at 13:04; Status DC Lorazepam (Ativan) 1 mg Q4H PRN PO CIWA 8 - 10; Start 08/15/17 at 06:30; Stop 08/16/17 at 07:59; Status DC Lorazepam (Ativan Inj) 1 mg Q4H PRN IV PUSH CIWA 8 - 10 Last administered on at 13:10; Start 08/15/17 at 06:30; Stop 08/16/17 at 07:59; Status DC Lorazepam (Ativan) 2 mg Q2H PRN PO CIWA 11-14; Start 08/15/17 at 06:30; Stop at 07:59; Status DC Lorazepam (Ativan Inj) 2 mg Q2H PRN IV PUSH CIWA 11-14; Start 08/15/17 at 06:30 ; Stop 08/16/17 at 07:59; Status DC Lorazepam (Ativan Inj) 2 mg Q1H PRN IV PUSH CIWA 15-20; Start 08/15/17 at 06:30 ; Stop 08/16/17 at 07:59; Status DC Lorazepam (Ativan Inj) 2 mg Q15M PRN IV PUSH CIWA > 20; Start 08/15/17 at 06:30 ; Stop 08/16/17 at 07:59; Status DC Ipratropium Combes (Atrovent Neb) 0.5 mg Q2HR NEB PRN NEB wheezing Last administered on 08/24/17at 03:57; Start 08/15/17 at 06:30; Stop 08/24/17 at 17:11 ; Status DC Ceftriaxone Sodium 1000 mg/ Sodium Chloride 100 ml @ 200 mls/hr Q24H IV ; Start 08/16/17 at 00:00; Stop 08/16/17 at 00:00; Status DC Norepinephrine Bitartrate 250 ml @ 7.5 mls/hr TITRATE PRN IV Blood pressure management Last administered on 08/16/17at 22:50; Start 08/15/17 at 07:30; Stop 08/18/17 at 07:56; Status DC Terbutaline Sulfate (Brethine Inj) 1 mg UNSCH PRN SQ For Extravasation; Start 08/15/17 at 07:30; Stop 08/15/17 at 09:15; Status DC Etomidate (Amidate Inj) 20 mg ONCE ONCE IV PUSH Last administered on at 07:30; Start 08/15/17 at 07:30; Stop 08/15/17 at 07:32; Status DC Fentanyl Citrate 250 ml @ 5 mls/hr TITRATE PRN IV SEDATION Last administered on 08/25/17at 04:05; Start 08/15/17 at 07:30; Stop 08/26/17 at 08:17; Status DC Etomidate (Amidate Inj) 40 mg STK-MED ONCE .ROUTE Last administered on at 07:28; Start 08/15/17 at 07:28; Stop 08/15/17 at 07:29; Status DC Fentanyl Citrate (fentaNYL INJ) 100 mcg STK-MED ONCE .ROUTE Last administered on 08/15/17at 07:28; Start 08/15/17 at 07:28; Stop 08/15/17 at 07:29; Status DC Fentanyl Citrate (fentaNYL INJ) 100 mcg STK-MED ONCE .ROUTE Last administered on 08/15/17at 07:37; Start 08/15/17 at 07:37; Stop 08/15/17 at 07:38; Status DC Phenylephrine HCl 40 mg/Dextrose 500 ml @ 30 mls/hr TITRATE PRN IV Blood pressure management; Start 08/15/17 at 10:00; Stop 08/16/17 at 07:59; Status DC Terbutaline Sulfate (Brethine Inj) 1 mg UNSCH PRN SQ For Extravasation; Start 08/15/17 at 09:00; Status Cancel Dextrose (D50w (Vial) Inj) 50 ml UNSCH PRN IV PUSH HYPOGLYCEMIA-SEE COMMENTS; Start 08/15/17 at 10:15; Stop 08/16/17 at 08:03; Status DC Glucagon (Glucagon Inj) 1 mg UNSCH PRN OTHER HYPOGLYCEMIA-SEE COMMENTS; Start 08/15/17 at 10:15; Stop 08/16/17 at 08:03; Status DC Insulin Human Regular (NovoLIN R SUPPLEMENTAL SCALE) 1 Q4H SQ Last administered on 08/16/17at 04:00; Start 08/15/17 at 12:00; Stop 08/16/17 at 08:01 ; Status DC Thiamine HCl (Vitamin B1) 100 mg DAILY PO Last administered on 09/14/17at 08:31 ; Start 08/15/17 at 12:00 Multivitamins (Theragran) 1 tab DAILY PO Last administered on 09/14/17at 08:32; Start 08/15/17 at 12:00 Folic Acid (Folate) 1 mg DAILY PO Last administered on 09/14/17at 08:29; Start 08/15/17 at 12:00 Hydrocortisone Sodium Succinate (SoluCORTEF INJ) 50 mg Q6HR IV PUSH Last administered on 08/16/17at 05:39; Start 08/15/17 at 12:00; Stop 08/16/17 at 07:59 ; Status DC Famotidine (Pepcid Inj) 10 mg Q12H IV PUSH Last administered on 08/24/17at 00:08 ; Start 08/15/17 at 12:00; Stop 08/24/17 at 13:06; Status DC Diatrizoate Meglum/ Diatrizoate Sod ( Gastroview Liq) 18 ml ONCE ONCE PO Last administered on 08/15/17at 12:09; Start 08/15/17 at 12:15; Stop 08/15/17 at 12:16; Status DC Ceftriaxone Sodium 2000 mg/ Sodium Chloride 100 ml @ 200 mls/hr Q12H IV Last administered on 08/18/17at 03:38; Start 08/15/17 at 16:00; Stop 08/18/17 at 11:19 ; Status DC Ampicillin Sodium 2000 mg/Sodium Chloride 100 ml @ 400 mls/hr Q4H IV Last administered on 08/18/17at 05:19; Start 08/15/17 at 15:00; Stop 08/18/17 at 08:00 ; Status DC Acyclovir Sodium 500 mg/Sodium Chloride 100 ml @ 100 mls/hr Q8H IV Last administered on 08/18/17at 06:13; Start 08/15/17 at 15:00; Stop 08/18/17 at 11:19 ; Status DC Aspirin (Aspirin Chew) 81 mg DAILY OG-TUBE Last administered on 09/14/17at 08:32 ; Start 08/15/17 at 19:00 Hydrocortisone Sodium Succinate (SoluCORTEF INJ) 50 mg Q12H IV PUSH Last administered on 08/17/17at 04:06; Start 08/16/17 at 18:00; Stop 08/17/17 at 07:44 ; Status DC Dextrose (D50w (Vial) Inj) 50 ml UNSCH PRN IV PUSH HYPOGLYCEMIA-SEE COMMENTS Last administered on 09/09/17at 08:31; Start 08/16/17 at 08:00 Glucagon (Glucagon Inj) 1 mg UNSCH PRN OTHER HYPOGLYCEMIA-SEE COMMENTS; Start 08/16/17 at 08:00 Insulin Human Regular (NovoLIN R SUPPLEMENTAL SCALE) 1 Q4HR SQ Last administered on 08/31/17at 16:21; Start 08/16/17 at 08:00; Stop 09/01/17 at 16:25; Status DC Vancomycin HCl 1000 mg/Sodium Chloride 250 ml @ 250 mls/hr ONCE ONCE IV Last administered on 08/16/17at 09:13; Start 08/16/17 at 10:00; Stop 08/16/17 at 10:59 ; Status DC Hydrocortisone Sodium Succinate (SoluCORTEF INJ) 25 mg Q12H IV PUSH Last administered on 08/22/17at 06:25; Start 08/17/17 at 18:00; Stop 08/22/17 at 10:18 ; Status DC Potassium Chloride 100 ml @ 50 mls/hr BOLUS ONCE IV Last administered on 08/17at 08:51; Start 08/17/17 at 07:45; Stop 08/17/17 at 09:44; Status DC Calcium Gluconate 1 gm/Sodium Chloride 110 ml @ 110 mls/hr ONCE ONCE IV Last administered on 08/17/17at 08:49; Start 08/17/17 at 09:00; Stop 08/17/17 at 09:59 ; Status DC Metoprolol Tartrate (Lopressor) 25 mg Q12HR PO Last administered on 08/19/17at 08:46; Start 08/17/17 at 09:00; Stop 08/26/17 at 08:17; Status DC Heparin Sodium (Porcine) (Heparin Inj) 5,000 units Q12HR SQ Last administered on 08/24/17at 21:46; Start 08/17/17 at 09:00; Stop 08/25/17 at 09:00; Status DC Metoprolol Tartrate (Lopressor Inj) 2.5 mg ONCE ONCE IV PUSH Last administered on 08/17/17at 07:53; Start 08/17/17 at 07:45; Stop 08/17/17 at 07:47 ; Status DC Vancomycin HCl 1000 mg/Sodium Chloride 250 ml @ 250 mls/hr ONCE ONCE IV Last administered on 08/17/17at 11:06; Start 08/17/17 at 10:00; Stop 08/18/17 at 08:00 ; Status DC Furosemide (Lasix Inj) 40 mg ONCE ONCE IV PUSH Last administered on 08/17/17at 13:39; Start 08/17/17 at 13:30; Stop 08/17/17 at 13:31; Status DC Propofol 100 ml @ 2.19 mls/hr TITRATE PRN IV SEDATION Last administered on at 10:24; Start 08/17/17 at 18:30; Stop 08/25/17 at 09:00; Status DC Potassium Chloride 100 ml @ 25 mls/hr ONCE ONCE IV Last administered on at 21:42; Start 08/17/17 at 21:15; Stop 08/18/17 at 01:14; Status DC Potassium Chloride (KCl) 40 meq NOW ONCE PO Last administered on 08/17/17at 21: 43; Start 08/17/17 at 21:15; Stop 08/17/17 at 21:16; Status DC Etomidate (Amidate Inj) 40 mg STK-MED ONCE .ROUTE Last administered on at 02:50; Start 08/18/17 at 02:50; Stop 08/18/17 at 02:51; Status DC Polyethylene Glycol/ Electrolytes (Colyte Liq) 4,000 ml ONCE ONCE PO Last administered on 08/18/17at 06:34; Start 08/18/17 at 06:00; Stop 08/18/17 at 06:01 ; Status DC Potassium Chloride 40 meq/ Sodium Chloride 520 ml @ 130 mls/hr ONCE ONCE IV- CENTRAL Last administered on 08/18/17at 10:10; Start 08/18/17 at 09:00; Stop at 12:59; Status DC Ceftriaxone Sodium 2000 mg/ Sodium Chloride 100 ml @ 200 mls/hr Q24H IV Last administered on 08/21/17at 04:20; Start 08/19/17 at 04:00; Stop 08/21/17 at 17:56 ; Status DC Diltiazem HCl (Cardizem Inj) 15 mg ONCE ONCE IV PUSH Last administered on 08/18at 21:05; Start 08/18/17 at 20:15; Stop 08/18/17 at 20:23; Status DC Diltiazem HCl 125 mg/Sodium Chloride 125 ml @ 5 mls/hr TITRATE PRN IV Tachycardia Last administered on 08/20/17at 14:08; Start 08/18/17 at 20:15; Stop 08/24/17 at 17:09; Status DC Potassium Chloride 30 meq/ Sodium Chloride 115 ml @ 38.333 mls/ hr Q3H IV- CENTRAL Last administered on 08/19/17at 07:43; Start 08/19/17 at 04:00; Stop at 09:59; Status DC Sodium Chloride 1,000 ml @ 999 mls/hr BOLUS ONCE IV Last administered on 08/19at 11:25; Start 08/19/17 at 12:00; Stop 08/19/17 at 13:00; Status DC Phenylephrine HCl 40 mg/Dextrose 500 ml @ 30 mls/hr TITRATE PRN IV Blood Pressure Management Last administered on 08/20/17at 00:09; Start 08/19/17 at 10: 30; Stop 08/23/17 at 14:17; Status DC Terbutaline Sulfate (Brethine Inj) 1 mg UNSCH PRN SQ FOR EXTRAVASATION PROTOCOL ; Start 08/19/17 at 10:30; Stop 08/23/17 at 08:47; Status DC Vasopressin 40 units/Dextrose 100 ml @ 1.5 mls/hr TITRATE PRN IV Blood Pressure Management; Start 08/19/17 at 10:30; Stop 08/19/17 at 15:20; Status DC Sodium Chloride 5.5 meq/Sodium Acetate 29.5 meq/ Potassium Chloride 20 meq/ Magnesium Chloride 5 meq/ Calcium Chloride 4.5 meq/ Multivitamins 10 ml/Folic Acid 1 mg/Amino Acids/ Dextrose 1,042.1719 ml @ 42 mls/hr Q24H IV-CENTRAL Last administered on 08/19/17at 20:12; Start 08/19/17 at 20:00; Stop 08/20/17 at 19:59 ; Status DC Fat Emulsion Intravenous 250 ml @ 31.25 mls/ hr Q24H IV-CENTRAL Last administered on 08/20/17at 20:10; Start 08/19/17 at 20:00; Stop 08/26/17 at 08:17 ; Status DC Vasopressin 40 units/Dextrose 100 ml @ 6 mls/hr [id number] IV ; Start 08/19/17 at 15:30; Stop 08/23/17 at 14:17; Status DC Digoxin (Lanoxin Inj) 0.5 mg ONCE ONCE IV PUSH Last administered on 08/19/17at 17:56; Start 08/19/17 at 15:30; Stop 08/19/17 at 15:31; Status DC Parenteral Electrolytes 1,000 ml @ 42 mls/hr [id number] IV Last administered on at 11:20; Start 08/19/17 at 16:00; Stop 08/22/17 at 10:22; Status DC Potassium Phosphate 30 mmol/ Sodium Chloride 260 ml @ 43.333 mls/ hr ONCE ONCE IV Last administered on 08/20/17at 08:10; Start 08/20/17 at 07:00; Stop at 12:59; Status DC Sodium Chloride 5.5 meq/Sodium Acetate 29.5 meq/ Potassium Chloride 20 meq/ Magnesium Chloride 5 meq/ Calcium Chloride 4.5 meq/ Multivitamins 10 ml/Folic Acid 1 mg/Insulin Human Regular 20 units/ Amino Acids/ Dextrose 1,042.3719 ml @ 42 mls/hr Q24H IV-CENTRAL Last administered on 08/20/17at 20:10; Start 08/20/17 at 20:00; Stop 08/25/17 at 09:00; Status DC Digoxin (Lanoxin Inj) 0.5 mg STK-MED ONCE .ROUTE ; Start 08/20/17 at 12:40; Stop 08/20/17 at 12:41; Status DC Metoprolol Tartrate (Lopressor Inj) 5 mg STK-MED ONCE .ROUTE ; Start 08/20/17 at 12:40; Stop 08/20/17 at 12:41; Status DC Metoprolol Tartrate (Lopressor Inj) 5 mg NOW ONCE IV Last administered on 08/20at 12:45; Start 08/20/17 at 12:45; Stop 08/20/17 at 12:46; Status DC Digoxin (Lanoxin Inj) 0.5 mg NOW ONCE IV Last administered on 08/20/17at 12:46 ; Start 08/20/17 at 12:45; Stop 08/20/17 at 12:46; Status DC Phenylephrine HCl (Neosynephrine/ NS 1000 Mcg/10ml Syr) 1,000 mcg STK-MED ONCE IV ; Start 08/18/17 at 12:00; Stop 08/20/17 at 12:59; Status DC Ephedrine Sulfate (ePHEDrine/NS 25 MG/5 ML SYR) 25 mg STK-MED ONCE IV ; Start at 12:00; Stop 08/20/17 at 12:59; Status DC Propofol (Diprivan 200 Mg/20 ml Inj) 200 mg STK-MED ONCE IV ; Start 08/18/17 at 12:00; Stop 08/20/17 at 12:59; Status DC Potassium Phosphate 30 mmol/ Sodium Chloride 260 ml @ 43.333 mls/ hr ONCE ONCE IV Last administered on 08/21/17at 10:24; Start 08/21/17 at 09:00; Stop at 14:59; Status DC Dexmedetomidine HCl (Precedex Inj) 41 mcg ONCE ONCE IV PUSH Last administered on 08/21/17at 10:25; Start 08/21/17 at 07:30; Stop 08/21/17 at 07:35; Status DC Dexmedetomidine HCl 200 mcg/ Sodium Chloride 52 ml @ 0 mls/hr TITRATE PRN IV SEDATION; Start 08/21/17 at 07:30; Status UNV Digoxin (Lanoxin Inj) 0.125 mg DAILY IV PUSH Last administered on 08/24/17at 09: 31; Start 08/21/17 at 09:00; Stop 08/24/17 at 13:06; Status DC Dexmedetomidine HCl 400 mcg/ Sodium Chloride 100 ml @ 4.05 mls/hr TITRATE PRN IV Desired RASS Last administered on 08/21/17at 11:20; Start 08/21/17 at 08:15; Stop 08/21/17 at 15:04; Status DC Acetaminophen (Tylenol) 650 mg Q4H PRN PO temp greater than 101 Last administered on 08/23/17at 19:52; Start 08/21/17 at 14:15; Stop 08/24/17 at 13:06 ; Status DC Dexmedetomidine HCl 1000 mcg/ Sodium Chloride 250 ml @ 4.05 mls/hr TITRATE PRN IV Desired RASS Last administered on 08/25/17at 04:04; Start 08/21/17 at 15: 15; Stop 08/25/17 at 09:00; Status DC Labetalol HCl (Trandate Inj) 20 mg Q4H PRN IV PUSH SBP greater than 160mm Hg Last administered on 08/21/17at 21:51; Start 08/21/17 at 17:15 Cefepime HCl 2000 mg/Sodium Chloride 100 ml @ 200 mls/hr Q8H IV Last administered on 08/25/17at 01:40; Start 08/21/17 at 18:00; Stop 08/25/17 at 08:59 ; Status DC Vancomycin HCl 1000 mg/Sodium Chloride 250 ml @ 250 mls/hr ONCE ONCE IV Last administered on 08/21/17at 20:29; Start 08/21/17 at 20:00; Stop 08/21/17 at 20:59 ; Status DC Vancomycin HCl (Vancomycin Inj) 1,000 mg STK-MED ONCE .ROUTE ; Start 08/22/17 at 07:02; Stop 08/22/17 at 07:03; Status DC Gentamicin Sulfate (Gentamicin Inj) 240 mg STK-MED ONCE .ROUTE ; Start 08/22/17 at 07:03; Stop 08/22/17 at 07:04; Status DC Vancomycin HCl 1000 mg/Sodium Chloride 250 ml @ 250 mls/hr ONCE ONCE IV ; Start 08/22/17 at 11:00; Stop 08/22/17 at 11:59; Status Cancel Pharmacy Profile Note 0 ml @ 0 mls/hr UNSCH OTHER ; Start 08/22/17 at 10:00; Stop 08/25/17 at 08:59; Status DC Micafungin Sodium 100 mg/Sodium Chloride 100 ml @ 100 mls/hr Q24H IV Last administered on 08/30/17at 11:19; Start 08/22/17 at 11:00; Stop 08/31/17 at 10:05; Status DC Hydrocortisone Sodium Succinate (SoluCORTEF INJ) 25 mg DAILY IV PUSH Last administered on 08/25/17at 08:07; Start 08/23/17 at 09:00; Stop 08/25/17 at 09:16 ; Status DC Water (Free Water) 250 ml Q8HR G-TUBE Last administered on 08/25/17at 04:05; Start 08/22/17 at 14:00; Stop 08/26/17 at 08:17; Status DC Furosemide (Lasix Inj) 40 mg ONCE ONCE IV PUSH Last administered on 08/22/17at 11:40; Start 08/22/17 at 11:00; Stop 08/22/17 at 11:01; Status DC Vancomycin HCl 1250 mg/Sodium Chloride 262.5 ml @ 250 mls/hr Q24H IV Last administered on 08/25/17at 08:17; Start 08/23/17 at 09:00; Stop 08/25/17 at 08:59 ; Status DC Miscellaneous Information SPECIFIC LAB TO BE DARLENE... ONCE ONCE .XX Last administered on 08/25/17at 08:17; Start 08/25/17 at 08:45; Stop 08/25/17 at 08:46 ; Status DC Diatrizoate Meglum/ Diatrizoate Sod ( Gastroview Liq) 18 ml ONCE ONCE PO Last administered on 08/23/17at 19:51; Start 08/23/17 at 19:00; Stop 08/23/17 at 19:01; Status DC Melatonin (Melatonin) 5 mg HS PRN PO SLEEP Last administered on 08/27/17at 01:53 ; Start 08/23/17 at 19:00; Stop 08/29/17 at 12:02; Status DC Oxycodone HCl (Roxicodone) 5 mg Q6H PO Last administered on 08/25/17at 01:39; Start 08/23/17 at 19:00; Stop 08/27/17 at 08:21; Status DC Fentanyl Citrate (fentaNYL INJ) 50 mcg Q1H PRN IV PUSH BREAKTHROUGH PAIN Last administered on 08/25/17at 00:05; Start 08/23/17 at 19:00; Stop 08/25/17 at 09:00 ; Status DC Furosemide (Lasix Inj) 40 mg Q8H IV PUSH Last administered on 08/24/17at 11:04; Start 08/23/17 at 20:00; Stop 08/24/17 at 13:06; Status DC Potassium Bicarb/ Potassium Chloride (K-Lyte Cl Eff) 25 meq Q8H NG Last administered on 09/03/17 20:22; Start 08/23/17 at 20:00; Stop 09/04/17 at 12:09; Status DC Heparin Sodium/ Dextrose 250 ml @ 10 mls/hr TITRATE PRN IV Coagulation Management Last administered on 08/27/17at 18:11; Start 08/24/17 at 03:00; Stop 08/30/17 at 12:02; Status DC Artificial Tears (Tears Naturale Opth Soln) 1 drop Q8HR EACH EYE Last administered on 09/07/17 14:30; Start 08/24/17 at 14:00; Stop 09/07/17 at 17:39 ; Status DC Acetaminophen (Tylenol 650 Mg/ 20 ml Liq) 650 mg Q6H PRN NG fever Last administered on 09/09/17 20:17; Start 08/24/17 at 13:00 Famotidine (Pepcid Liq) 20 mg BID NG Last administered on 08/29/17 08:53; Start 08/24/17 at 21:00; Stop 08/29/17 at 14:20; Status DC Digoxin (Lanoxin Liq) 0.125 mg DAILY PO Last administered on 09/14/17 08:30; Start 08/25/17 at 09:00 Bumetanide 100 ml @ 1 mls/hr Q24H IV Last administered on 08/24/17 20:18; Start 08/24/17 at 14:00; Stop 08/25/17 at 09:17; Status DC Albumin Human 50 ml @ 60 mls/hr Q12H IV Last administered on 08/26/17at 01:30; Start 08/24/17 at 14:00; Stop 08/26/17 at 02:49; Status DC Ferrous Sulfate (Ferrous Sulfate Liq) 300 mg BID PO Last administered on at 08:29; Start 08/24/17 at 21:00 Fentanyl Citrate (fentaNYL INJ) 50 mcg ONCE ONCE IV PUSH Last administered on 08/24/17at 17:00; Start 08/24/17 at 17:00; Stop 08/24/17 at 17:01; Status DC Midazolam HCl (Versed Inj) 5 mg ONCE ONCE IV Last administered on 08/24/17at 17 :00; Start 08/24/17 at 17:00; Stop 08/24/17 at 17:01; Status DC Norepinephrine Bitartrate 4 mg/ Sodium Chloride 250 ml @ 7.5 mls/hr TITRATE PRN IV Blood pressure management Last administered on 08/25/17at 00:15; Start at 17:15; Stop 08/25/17 at 09:00; Status DC Terbutaline Sulfate (Brethine Inj) 1 mg UNSCH PRN SQ For Extravasation; Start 08/24/17 at 17:15; Stop 08/29/17 at 14:21; Status DC Albuterol/ Ipratropium (Duoneb Neb) 1 ampule Q6HR NEB NEB Last administered on 08/25/17at 08:11; Start 08/24/17 at 22:00; Stop 08/25/17 at 09:33; Status DC Albuterol Sulfate (Albuterol Neb) 2.5 mg Q2HR NEB PRN NEB dyspnea; Start at 17:15; Stop 08/25/17 at 09:33; Status DC Sodium Chloride (NS Flush) DAILY IV FLUSH Last administered on 09/14/17at 09:00 ; Start 08/25/17 at 09:00 Sodium Chloride (NS Flush) UNSCH PRN IV FLUSH SEE PROTOCOL Last administered on 09/04/17at 07:49; Start 08/24/17 at 17:45 Cefepime HCl 2000 mg/Sodium Chloride 100 ml @ 200 mls/hr Q12H IV Last administered on 08/29/17at 02:15; Start 08/25/17 at 14:00; Stop 08/29/17 at 12:02; Status DC Albuterol/ Ipratropium (Duoneb Neb) 1 ampule Q4HR NEB NEB Last administered on 08/29/17at 11:09; Start 08/25/17 at 12:00; Stop 08/29/17 at 11:59; Status DC Albuterol/ Ipratropium (Duoneb Neb) 1 ampule Q2HR NEB PRN NEB SHORTNESS OF BREATH; Start 08/25/17 at 10:00; Stop 09/04/17 at 18:55; Status DC Miscellaneous Information D/C ICU ELECTROLYTE ORDERS... UNSCH PRN .XX SEE DOSE INSTRUCTIONS; Start 08/25/17 at 15:00 Miscellaneous Information ICU - CALL ORDERING PHYSIC... UNSCH PRN .XX SEE DOSE INSTRUCTIONS; Start 08/25/17 at 15:00 Potassium Chloride 100 ml @ 25 mls/hr UNSCH PRN IV ELECTROLYTE REPLACEMENT Last administered on 08/29/17at 16:51; Start 08/25/17 at 15:00 Potassium Bicarb/ Potassium Chloride (K-Lyte Cl Eff) 50 meq UNSCH PRN PO ELECTROLYTE REPLACEMENT; Start 08/25/17 at 15:00 Potassium Chloride 100 ml @ 50 mls/hr UNSCH PRN IV ELECTROLYTE REPLACEMENT Last administered on 09/01/17at 20:35; Start 08/25/17 at 15:00 Magnesium Sulfate 4 gm/Sodium Chloride 108 ml @ 54 mls/hr UNSCH PRN IV ELECTROLYTE REPLACEMENT; Start 08/25/17 at 15:00 Magnesium Sulfate 2 gm/Sodium Chloride 104 ml @ 52 mls/hr UNSCH PRN IV ELECTROLYTE REPLACEMENT; Start 08/25/17 at 15:00 Magnesium Oxide (Mag-Ox) 800 mg UNSCH PRN PO ELECTROLYTE REPLACEMENT; Start at 15:00 Sodium Phosphate 30 mmol/Sodium Chloride 260 ml @ 43.333 mls/ hr UNSCH PRN IV ELECTROLYTE REPLACEMENT; Start 08/25/17 at 15:00 Potassium Phosphate (K-Phos) 2,000 mg UNSCH PRN PO ELECTROLYTE REPLACEMENT Last administered on 09/11/17at 16:49; Start 08/25/17 at 15:00 Potassium Phosphate 30 mmol/ Sodium Chloride 260 ml @ 43.333 mls/ hr UNSCH PRN IV ELECTROLYTE REPLACEMENT Last administered on 09/02/17 08:07; Start at 15:00 Metoprolol Tartrate (Lopressor Inj) 2.5 mg Q6H IV PUSH Last administered on at 03:59; Start 08/26/17 at 04:00; Stop 08/26/17 at 08:17; Status DC Fluconazole/ Sodium Chloride 400 ml @ 100 mls/hr Q24H IV Last administered on 08/27/17at 11:40; Start 08/26/17 at 08:00; Stop 08/27/17 at 21:35; Status DC Fluconazole/ Sodium Chloride 400 ml @ 100 mls/hr Q24H IV ; Start 08/26/17 at 10 :00; Status Cancel Metoprolol Tartrate (Lopressor) 50 mg Q12HR PO Last administered on 08/29/17 08 :53; Start 08/26/17 at 09:00; Stop 08/31/17 at 10:59; Status DC Ipratropium Combes (Atrovent Neb) 0.5 mg Q2HR NEB PRN NEB SHORTNESS OF BREATH Last administered on 09/06/17at 23:22; Start 08/26/17 at 08:00; Stop 09/07/17 at 17:39; Status DC Ipratropium Combes (Atrovent Neb) 0.5 mg Q4HR NEB NEB Last administered on 04/16at 07:39; Start 08/26/17 at 08:00; Stop 09/06/17 at 12:41; Status DC Alprazolam (Xanax) 0.125 mg ONCE ONCE PO Last administered on 08/26/17at 09:02 ; Start 08/26/17 at 08:00; Stop 08/26/17 at 08:28; Status DC Miscellaneous (Pill Splitter) 1 ea UNSCH PRN OTHER SEE LABEL COMMENTS; Start at 08:30; Stop 09/04/17 at 12:39; Status DC Diltiazem HCl (Cardizem Inj) 10 mg ONCE ONCE IV Last administered on at 14:05; Start 08/26/17 at 13:45; Stop 08/26/17 at 13:53; Status DC Diltiazem HCl (Cardizem Inj) 10 mg ONCE ONCE IV ; Start 08/26/17 at 14:15; Stop 08/26/17 at 14:16; Status UNV Diltiazem HCl 125 mg/Sodium Chloride 125 ml @ 5 mls/hr TITRATE PRN IV Tachycardia; Start 08/26/17 at 14:15; Status UNV Diltiazem HCl 125 mg/Sodium Chloride 125 ml @ 5 mls/hr TITRATE PRN IV Tachycardia Last administered on 08/28/17at 20:36; Start 08/26/17 at 14:30; Stop 09/01/17 at 09:30; Status DC Metoprolol Tartrate (Lopressor Inj) 2.5 mg ONCE ONCE IV PUSH Last administered on 08/26/17at 17:05; Start 08/26/17 at 16:15; Stop 08/26/17 at 16:38 ; Status DC Metoprolol Tartrate (Lopressor Inj) 2.5 mg NOW ONCE IV PUSH Last administered on 08/26/17at 18:15; Start 08/26/17 at 18:15; Stop 08/26/17 at 18:16; Status DC Oxycodone HCl (Roxicodone) 5 mg Q6H PRN PO pain 6-10 Last administered on at 04:35; Start 08/27/17 at 13:00 Furosemide (Lasix Inj) 40 mg BID@,18 IV PUSH Last administered on 09/02/17at 18 :00; Start 08/27/17 at 09:00; Stop 09/03/17 at 07:38; Status DC Magnesium Sulfate/ Dextrose 100 ml @ 100 mls/hr ONCE ONCE IV Last administered on 08/27/17at 10:35; Start 08/27/17 at 09:00; Stop 08/27/17 at 09:59 ; Status DC Morphine Sulfate (Morphine Inj) 1 mg Q4H PRN IV anxiety/pain 1-10 Last administered on 09/13/17at 17:23; Start 08/27/17 at 11:00 Furosemide (Lasix Inj) 20 mg ONCE STAT IV PUSH Last administered on 08/27/17at 12:00; Start 08/27/17 at 11:41; Stop 08/27/17 at 11:52; Status DC Fluconazole/ Sodium Chloride 200 ml @ 100 mls/hr Q24H IV Last administered on 09/09/17at 08:00; Start 08/28/17 at 08:00; Stop 09/09/17 at 09:03; Status DC Fluconazole/ Sodium Chloride 200 ml @ 100 mls/hr Q24H IV Last administered on 09/08/17at 10:49; Start 08/28/17 at 10:00; Stop 09/09/17 at 09:03; Status DC Furosemide (Lasix Inj) 40 mg STAT ONCE IV PUSH Last administered on 08/28/17at 14:15; Start 08/28/17 at 14:00; Stop 08/28/17 at 14:04; Status DC Dexmedetomidine HCl (Precedex Inj) 36 mcg ONCE ONCE IV PUSH Last administered on 08/29/17at 09:00; Start 08/29/17 at 09:00; Stop 08/29/17 at 09:08; Status DC Dexmedetomidine HCl 200 mcg/ Sodium Chloride 52 ml @ 3.71 mls/hr TITRATE PRN IV SEDATION Last administered on 09/01/17 04:11; Start 08/29/17 at 10:00; Stop at 09:30; Status DC Sodium Chloride 250 ml @ 15 mls/hr ONCE ONCE IV Last administered on 11:30; Start 08/29/17 at 11:30; Stop 08/30/17 at 04:09; Status DC Diphenhydramine HCl (Benadryl) 25 mg Q4H PRN PO SEE LABEL COMMENTS Last administered on 09/09/17 22:13; Start 08/29/17 at 11:30; Stop 09/09/17 at 22:13 ; Status DC Furosemide (Lasix Inj) 20 mg ONCE ONCE IV PUSH Last administered on 08/29/17at 15:39; Start 08/29/17 at 11:30; Stop 08/29/17 at 11:31; Status DC Phenylephrine HCl (Neosynephrine Inj) 10 mg STK-MED ONCE .ROUTE Last administered on 08/29/17 15:40; Start 08/29/17 at 11:42; Stop 08/29/17 at 11:43; Status DC Miscellaneous Medication (ASP Crit: Other exception documentation) 1 UNSCH X1 PRN .XX PHARMACY DOCUMENTATION; Start 08/29/17 at 12:00; Stop 08/30/17 at 11:59; Status DC Miscellaneous Medication ([facility] Information) 1 UNSCH X1 PRN XX PHARMACY DOCUMENTATION; Start 08/29/17 at 12:00; Stop 08/30/17 at 11:59; Status DC Meropenem 1000 mg/ Sodium Chloride 100 ml @ 200 mls/hr Q8H IV Last administered on 08/30/17at 00:40; Start 08/29/17 at 15:00; Stop 08/30/17 at 15:18; Status DC Linezolid 300 ml @ 300 mls/hr Q12H IV Last administered on 09/02/17at 02:00; Start 08/29/17 at 14:00; Stop 09/02/17 at 08:05; Status DC Methylprednisolone Sodium Succinate (SoluMEDROL INJ) 125 mg STK-MED ONCE .ROUTE ; Start 08/29/17 at 12:24; Stop 08/29/17 at 12:25; Status DC Methylprednisolone Sodium Succinate (SoluMEDROL INJ) 125 mg STAT ONCE IV ; Start 08/29/17 at 13:45; Stop 08/29/17 at 13:46; Status DC Phenylephrine HCl 40 mg/Dextrose 500 ml @ 30 mls/hr TITRATE PRN IV Blood Pressure Management Last administered on 08/29/17at 11:30; Start 08/29/17 at 14:00 ; Stop 09/01/17 at 09:30; Status DC Terbutaline Sulfate (Brethine Inj) 1 mg UNSCH PRN SQ FOR EXTRAVASATION PROTOCOL ; Start 08/29/17 at 14:00; Stop 09/06/17 at 13:04; Status DC Famotidine (Pepcid) 10 mg BID NG Last administered on 09/06/17at 09:19; Start at 21:00; Stop 09/06/17 at 16:12; Status DC Enoxaparin Sodium (Lovenox Inj) 100 mg Q24H SQ Last administered on 09/14/17at 13:07; Start 08/30/17 at 15:00 Methylprednisolone Sodium Succinate (SoluMEDROL INJ) 40 mg Q12H IV PUSH Last administered on 09/06/17at 12:34; Start 08/30/17 at 13:00; Stop 09/06/17 at 12:43 ; Status DC Metoprolol Tartrate (Lopressor) 12.5 mg Q8HR PO Last administered on 08/30/17 22:16; Start 08/30/17 at 14:00; Stop 08/31/17 at 10:45; Status DC Miscellaneous (Pill Splitter) 1 ea UNSCH PRN OTHER SEE LABEL COMMENTS Last administered on 09/01/17at 09:12; Start 08/30/17 at 13:00 Meropenem 1000 mg/ Sodium Chloride 100 ml @ 200 mls/hr Q12H IV Last administered on 09/02/17at 03:57; Start 08/30/17 at 16:00; Stop 09/02/17 at 08:10; Status DC Multi-Ingredient Mouthwash/Gargle (Magic Mouthwash Adult Liq) 5 ml QID PRN SWISH-SPIT MOUTH SORES Last administered on 09/04/17 21:07; Start 08/30/17 at 19: 15; Stop 09/05/17 at 09:30; Status DC Metoprolol Tartrate (Lopressor) 25 mg Q8HR PO Last administered on 09/03/17at 06: 02; Start 08/31/17 at 14:00; Stop 09/03/17 at 07:38; Status DC Diltiazem HCl (Cardizem) 60 mg Q6HR PO Last administered on 09/05/17at 05:38; Start 09/01/17 at 12:00; Stop 09/05/17 at 11:48; Status DC Insulin Human Regular (NovoLIN R SUPPLEMENTAL SCALE) 1 ACHS SLIDING SCALE SQ Last administered on 09/02/17at 20:56; Start 09/01/17 at 17:00; Stop 09/04/17 at 09: 00; Status DC Temazepam (Restoril) 7.5 mg NOW ONCE PO Last administered on 09/01/17 21:45; Start 09/01/17 at 21:30; Stop 09/01/17 at 21:31; Status DC Linezolid (Zyvox) 600 mg Q12H PO Last administered on 09/04/17at 00:33; Start 09/02/17 at 14:00; Stop 09/04/17 at 08:54; Status DC Cefepime HCl 2000 mg/Sodium Chloride 100 ml @ 200 mls/hr Q8H IV Last administered on 09/03/17at 01:00; Start 09/02/17 at 09:00; Stop 09/03/17 at 08:16; Status DC Furosemide (Lasix Inj) 40 mg DAILY IV PUSH Last administered on 09/03/17at 08:10 ; Start 09/03/17 at 09:00; Stop 09/04/17 at 07:19; Status DC Metoprolol Tartrate (Lopressor) 50 mg Q12HR PO Last administered on 09/14/17 08:31; Start 09/03/17 at 09:00 Clonidine (Catapres) 0.1 mg Q8H PO Last administered on 09/03/17 16:26; Start 09/03/17 at 08:00; Stop 09/04/17 at 07:19; Status DC Cefepime HCl 2000 mg/Sodium Chloride 100 ml @ 200 mls/hr Q12H IV Last administered on 09/04/17 00:33; Start 09/03/17 at 13:00; Stop 09/04/17 at 08:54; Status DC Alprazolam (Xanax) 0.125 mg ONCE ONCE PO Last administered on 09/03/17 09:00; Start 09/03/17 at 09:00; Stop 09/03/17 at 09:01; Status DC Clonidine (Catapres) 0.2 mg Q8H PO Last administered on 09/13/17 22:16; Start 09/04/17 at 08:00 Albuterol/ Ipratropium (Duoneb Neb) 1 ampule Q4HR NEB NEB Last administered on 09/04/17 15:31; Start 09/04/17 at 08:00; Stop 09/04/17 at 18:55; Status DC Temazepam (Restoril) 7.5 mg ONCE ONCE PO Last administered on 09/04/17 21:06; Start 09/04/17 at 21:00; Stop 09/04/17 at 21:01; Status DC Sodium Chloride 500 ml @ 500 mls/hr BOLUS ONCE IV Last administered on at 07:36; Start 09/05/17 at 07:15; Stop 09/05/17 at 08:14; Status DC Multi-Ingredient Mouthwash/Gargle (Magic Mouthwash Adult Liq) 5 ml ACHS SWISH- SWAL Last administered on 09/14/17at 13:07; Start 09/05/17 at 12:00 Diltiazem HCl (Cardizem) 90 mg Q6HR PO Last administered on 09/14/17at 04:40; Start 09/05/17 at 12:00 Temazepam (Restoril) 7.5 mg ONCE ONCE PO Last administered on 09/05/17at 19:50; Start 09/05/17 at 21:00; Stop 09/05/17 at 21:01; Status DC Temazepam (Restoril) 30 mg HS PRN PO SLEEP Last administered on 09/06/17at 23:11 ; Start 09/06/17 at 12:45; Stop 09/07/17 at 17:39; Status DC Albuterol/ Ipratropium (Duoneb Neb) 1 ampule Q6HR NEB NEB Last administered on 09/08/17at 21:24; Start 09/06/17 at 16:00; Stop 09/09/17 at 12:41; Status DC Prednisone (Deltasone) 10 mg DAILY PO Last administered on 09/09/17at 08:47; Start 09/07/17 at 09:00; Stop 09/09/17 at 14:12; Status DC Dextrose (D50w (Vial) Inj) 50 ml UNSCH PRN IV PUSH HYPOGLYCEMIA-SEE COMMENTS; Start 09/06/17 at 12:45; Stop 09/06/17 at 14:15; Status DC Glucagon (Glucagon Inj) 1 mg UNSCH PRN OTHER HYPOGLYCEMIA-SEE COMMENTS; Start 09/06/17 at 12:45; Stop 09/06/17 at 14:15; Status DC Insulin Aspart (NovoLOG SUPPLEMENTAL SCALE) 1 ACHS SLIDING SCALE SQ ; Start 04/16 at 17:00; Stop 09/11/17 at 08:02; Status DC Famotidine (Pepcid) 20 mg BID NG Last administered on 09/14/17at 08:32; Start at 21:00 Albuterol Sulfate (Albuterol Neb) 2.5 mg Q2HR NEB PRN NEB dyspnea; Start at 17:45; Stop 09/09/17 at 12:41; Status DC Bismuth Subsalicylate (Pepto-Bismol Liq) 15 ml ONCE ONCE PO Last administered on 09/08/17at 12:16; Start 09/08/17 at 11:15; Stop 09/08/17 at 11:18; Status DC Temazepam (Restoril) 15 mg HS PRN PO insomnia; Start 09/08/17 at 11:15; Stop at 14:11; Status DC Temazepam (Restoril) 30 mg HS PRN PO insomnia Last administered on 09/12/17at 21 :33; Start 09/08/17 at 21:00; Stop 09/13/17 at 15:22; Status DC Clotrimazole (Mycelex) 10 mg 5 TIMES A DAY BUCCAL Last administered on at 08:31; Start 09/08/17 at 18:00 Padimate O ([place]) 1 applic ONCE ONCE TOPICAL Last administered on at 17:48; Start 09/08/17 at 14:15; Stop 09/08/17 at 14:17; Status DC Sodium Chloride ([place]) 2 spray Q4H PRN EACH NARE NASAL CONGESTION Last administered on 09/11/17at 08:55; Start 09/08/17 at 14:15 Magnesium Sulfate/ Dextrose 100 ml @ 100 mls/hr ONCE ONCE IV Last administered on 09/08/17at 22:54; Start 09/08/17 at 20:30; Stop 09/08/17 at 21:29 ; Status DC Fluconazole (Diflucan) 800 mg DAILY PO Last administered on 09/14/17at 08:41; Start 09/09/17 at 10:00; Stop 10/05/17 at 09:59 Ipratropium Combes (Atrovent Neb) 0.5 mg Q4HR NEB PRN NEB dyspnea Last administered on 09/12/17at 21:01; Start 09/09/17 at 12:45 Glycerin (Glycerin Top Soln) 10 ml DAILY TOPICAL ; Start 09/10/17 at 09:00; Stop 09/10/17 at 09:00; Status DC Glycerin (Glycerin Top Soln) 10 ml ONCE ONCE TOPICAL ; Start 09/09/17 at 14:00 ; Stop 09/09/17 at 14:15; Status DC Prednisone (Deltasone) 5 mg DAILY PO Last administered on 09/14/17at 08:29; Start 09/10/17 at 09:00; Stop 09/15/17 at 08:59 Furosemide (Lasix Inj) 20 mg ONCE ONCE IV PUSH Last administered on 09/09/17at 15:22; Start 09/09/17 at 14:15; Stop 09/09/17 at 14:16; Status DC Lidocaine HCl (Xylocaine 2% Jelly) 5 ml ONCE ONCE TOPICAL ; Start 09/09/17 at 16:15; Stop 09/09/17 at 16:16; Status DC Ipratropium Combes (Atrovent Neb) 0.5 mg Q6HR NEB NEB Last administered on at 10:06; Start 09/10/17 at 16:00 Loperamide HCl (Imodium) 2 mg Q4H PRN PO diarrhea Last administered on at 04:34; Start 09/10/17 at 15:00 Potassium Chloride (KCl) 30 meq ONCE ONCE PO Last administered on 09/10/17at 17 :43; Start 09/10/17 at 15:00; Stop 09/10/17 at 15:07; Status DC Guaifenesin (Mucinex Er) 600 mg BID PO Last administered on 09/14/17at 08:32; Start 09/10/17 at 21:00 Insulin Aspart (NovoLOG SUPPLEMENTAL SCALE) 1 Q4H SQ ; Start 09/11/17 at 12:00 Lorazepam (Ativan) 0.5 mg Q12H PRN PO anxiety Last administered on 09/13/17at 03 :31; Start 09/12/17 at 14:45; Stop 09/13/17 at 15:22; Status DC Lorazepam (Ativan) 0.5 mg Q6HR PRN PO anxiety Last administered on 09/14/17at 01 :29; Start 09/13/17 at 15:30 Temazepam (Restoril) 15 mg HS PRN PO insomnia Last administered on 09/13/17at 22 :18; Start 09/13/17 at 15:30 Furosemide (Lasix Inj) 20 mg BID@09,18 IV PUSH Last administered on 09/14/17at 08:44; Start 09/13/17 at 16:30 Sodium Chloride 500 ml @ 500 mls/hr BOLUS ONCE IV ; Start 09/13/17 at 23:30; Stop 09/14/17 at 00:29; Status DC A/P Assessment and Plan This is a 82-year-old female who presented respiratory failure Acute metabolic encephalopathy, improved 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 08/15: CT brain negative for acute intracranial process MRI brain: Small lacunar infarcts in left cerebellar hemisphere and right parietal lobe EEG: Severe encephalopathy Repeat EEG 08/21.- generalized slowing, no epileptiform features Continue thiamine, multivitamin and folic acid daily. Neuro is following- Dr. Danielle LP showed clear CSF, 17 WBC, TP:45.2 Generally weak - PT and OT following. PT recommending acute rehab Continue aspirin 81 mg daily with enoxaparin 100 mg IV twice daily Temazepam 30 mg at night for insomnia We will give Ativan as needed for anxiety. Acute respiratory failure, worsening since last night Bilateral pleural effusions -resolved Status post bilateral CT-guided thoracentesis by IR on 08/29 with drainage of 500 cc of pleural fluid on right and 300 cc from left(transudative fluid) Thoracentesis wasn't done by IR on 09/04 as pleural effusion is too small per CT images. Currently on prednisone 5 mg daily for 5 days and discontinue Stat chest x-ray repeated which shows increase pleural effusion with bilateral interstitial infiltrate Symptoms are improving. Will continue at current dose of Lasix. Continue to wean off of oxygen. Recommend BiPAP as needed. Strict ins and outs. Continue to monitor creatinine. 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 Digoxin level 1.2 on 09/08 Clonidine0.2mg Q8 for blood pressure Repeat Echo showed EF 45-50%, Lateral leaflet mitral valve with a 2 mm mobile density, consistent with ? endocarditis Cardiology following, Dr. Myers. FERNANDO on hold for now given resp status unless recurrent blood culture positivity. Continue aspirin 81 mg by mouth daily/home medication Acute kidney injury, resolved Lactic acidemia, resolved Rhabdomyolysis resolved Right-sided nephrolithiasis/nonobstructing Left renal cyst Monitor renal function, intake and output and avoid nephrotoxins. Renal has followed-Dr. Figueroa, US abdomen: No hydronephrosis CT Abd/pelvis revealed nonobstructing right-sided nephrolithiasis and left renal cyst. Continue straight cath. As needed. Ischemic colitis, resolved Severe acute on Chronic protein energy malnutrition AST elevation secondary to alcohol use Internal and external hemorrhoids Speech eval. Ensure with each meal. NG tube placed 09/09 with dietary consultation for tube feed recommendations. Currently on Glucerna 1.5 at 20 cc an hour advance to 45ml/hr as ligia. Encourage oral intake. On Magic mouthwash secondary to burning sensation and sore throat. F/u stool C diff ordered 09/05 per ID negative On famotidine 20 mg twice a day for GI prophylaxis. US liver: No abnormalities identified GI has followed- colonoscopy showed diffuse colitis in the sigmoid colon and descending colon; Necrotic, dusky appearing mucosa. Consistent with severe ischemic colitis. General surgery, Dr. Guadalupe -plan to treat conservatively unless patient worsens clinically. Repeat CT abdomen and pelvis 08/23 mild diffuse colitis Reconsult GI for odynophagia. Patient refused EGD Septic shock resolved UTI Ischemic colitis Fungemia - Felipa parapsilosis Possible endocarditis Abx per ID -Continue fluconazole 800 mg IV daily , Monitor for signs of infections ( Fever, WBC). Seen by Opth no evidence of endophthalmitis Pertinent cultures 08/29 pleural fluid culture NGTD. 08/26 and 08/29 blood cultures Negative 08/23 - blood culture by line (actually peripheral) - Staph hominus 08/21 - blood culture - no growth 08/21 - sputum - no growth 08/21 - - no growth 08/21 - blood culture - Felipa parapsilosis 08/15 - CSF - negative 08/15 - sputum - no growth 08/14 - blood cultures 2 and UA - no growth C-diff PCR is negative, stool studies negative s/p LP showed clear CSF, 17 WBC, TP:45.2, HSV DNA PCR neg Hyperglycemia of critical illness/steroid SSI with accucheks Q4 TSH: 1.15. Leukocytosis Normocytic anemia B/L UE DVT Possible left common femoral vein DVT Left cephalic/basilic superficial and right superficial cephalic thrombus Monitor CBC, coags- heparin drip stopped on 08/30 and started on Enoxaparin 100 mg subcutaneously daily for full anticoagulation. Iron sulfate 300 mg twice a day. 1 unit PRBCs ordered to be transfused on 3/2 GI prophylaxis with famotidine and DVT prophylaxis with SCDs, Enoxaparin 100mg subcut daily Discharge Planning Respiratory status has improved but she requires as needed BiPAP will continue to monitor in the [facility] to assure patient is stabilized. Susanna Martínez MD Sep 14, 2017 14:46
[2017-09-14 17:14] LABS: HEMATOCRIT 25.6 % (35.0-46.0); HEMOGLOBIN 8.4 GM/DL (11.6-15.3); MEAN CELL VOLUME 97.6 FL (80.0-100.0); MEAN CORPUSCULAR HEMOGLOBIN 32.1 PG (27.0-34.0); MEAN CORPUSCULAR HGB CONC 32.9 % (32.0-36.0); MEAN PLATELET VOLUME 7.5 FL (7.0-11.0); PLATELET COUNT 203 TH/MM3 (150-450); RED BLOOD COUNT 2.62 MIL/MM3 (4.00-5.30); RED CELL DISTRIBUTION WIDTH 18.2 % (11.6-17.2); WHITE BLOOD COUNT 4.4 TH/MM3 (4.0-11.0)
[2017-09-14 17:51] LABS: CALCIUM 8.4 MG/DL (8.5-10.1); CREATININE 0.47 MG/DL (0.50-1.00); MAGNESIUM 1.9 MG/DL (1.5-2.5)
[2017-09-14] MEDS: MORPHINE SULFATE 2 MG/ML INJ IV PRN (21:25)
[2017-09-15] VITALS (25 sets, daily range): BP systolic 83–143; BP diastolic 51–76; PULSE 63–130; TEMP 98.2–98.9; O2SAT 82–100
[2017-09-15] MEDS: cloNIDine HCL 0.2 MG TAB PO SCH ×3 (01:11→15:51)
[2017-09-15] MEDS: DILTIAZEM HCL 90 MG TAB PO SCH ×5 (01:11→23:33)
[2017-09-15] MEDS: MORPHINE SULFATE 2 MG/ML INJ IV PRN ×2 (01:12→04:59)
[2017-09-15] MEDS: RESP: IPRATROPIUM 0.5 MG/2.5 ML NEB NEB SCH ×4 (02:49→21:42)
[2017-09-15] MEDS: LORazepam 0.5 MG TAB PO PRN ×2 (06:29→13:55)
[2017-09-15] MEDS: CLOTRIMAZOLE 10 MG TROCHE BUCCAL SCH ×5 (06:29→21:54)
[2017-09-15 08:28] LABS: BICARBONATE 29.7 MEQ/L (21.0-32.0); CREATININE 0.38 MG/DL (0.50-1.00); MAGNESIUM 1.9 MG/DL (1.5-2.5)
[2017-09-15] MEDS: guaiFENesin E.R. 600 MG TAB PO SCH ×2 (08:41→20:57)
[2017-09-15] MEDS: FAMOTIDINE 20 MG TAB NG SCH ×2 (08:41→20:56)
[2017-09-15] MEDS: THIAMINE HCL 100 MG TAB PO SCH (08:41)
[2017-09-15] MEDS: FERROUS SULFATE 300 MG /5ML UDC PO SCH ×2 (08:41→20:56)
[2017-09-15] MEDS: MULTIVITAMIN TAB PO SCH (08:41)
[2017-09-15] MEDS: FLUCONAZOLE 200 MG TAB PO SCH (08:41)
[2017-09-15] MEDS: METOPROLOL TARTRATE 50 MG TAB PO SCH ×2 (08:42→20:57)
[2017-09-15] MEDS: NYSTAT/DIPHENHY/LIDO MOUTHWASH (Adult) 120ML SWISH-SWAL SCH ×4 (08:42→20:57)
[2017-09-15] MEDS: FOLIC ACID 1 MG TAB PO SCH (08:42)
[2017-09-15] MEDS: ASPIRIN 81 MG CHEW TAB OG-TUBE SCH (08:42)
[2017-09-15] MEDS: FUROSEMIDE 20 MG/2 ML VIAL IV PUSH SCH ×2 (08:43→17:20)
[2017-09-15] MEDS: SODIUM CHLORIDE 0.9% FLUSH 10 ML FLUSH IV FLUSH SCH ×3 (08:43→20:56)
[2017-09-15] MEDS: DIGOXIN SOLUTION 0.125 MG/2.5 ML CUP PO SCH (09:00)
--- NOTE | 2017-09-15 13:45 | HHI.HCPN ---
Reason for visit a. To assist with evaluation and management of symptoms including: dyspnea, weakness, pain, anxiety. b. To assist medical decision maker(s) with: better understanding of current medical conditions; weighing benefits/burdens of medical treatment options; making medical treatment decisions. . Subjective/Interval History Patient seen and examined in ICU. DaughterJessica at bedside. Family has previously declined PEG tube as she was concerned about the risks of anesthesia and procedures in her mother. Patient is lethargic, awakens and speaks softly. Hypotensive, BP 93/54. On oxygen via NC. Dobbhoff remains in place right nare, tolerating TF at 40cc/hr. On Lorazepam 0.5mg every 6 hours PRN anxiety, has had 4 doses in the past 24 hours. Clinical data: * Laboratory: sodium 138, potassium 4.0, BUN 14, creatinine 0.38. * No new imaging. * Speech recommends thin liquids and full liquid diet. This is a elderly, frail, weak appearing female lying in bed in no acute distress. She doses off and on through the conversation. The daughter states patient is lethargic today. Patient verbalizes concern about going to [place]. She tells me she is afraid she will fail. Daughter continues to encourage the patient to "be positive as Ally Olson can accomplish anything she sets her mind to." Patient wants to go to [place] to try, but is concerned about how weak she is. She is falling off to sleep during my visit, will continue to follow. Encouraged palliative care consult should she move to [place], as she remains high risk for decline. . Family/friend interactions See interval note. . Advance Directives Living Will: Never completed Health Care Surrogate: Never completed Durable Power of Hydraulic Mechanic: Never completed Advance Directive Specifics Health Care Surrogate(s): Living Will copy obtained. According to her Living Will she names daughterSilvia as primary HCS and son Jl Olson as alternate HCS. . Documented care wishes: Standard Living Will on chart. . Significant change in goals: FULL CODE. Goals remain aggressive short of PEG tube (family has declined PEG). . Objective Vital Signs Date Time Temp Pulse Resp B/P (MAP) Pulse Ox O2 Delivery O2 Flow Rate FiO2 09/15/17 10:30 63 93/54 (67) 100 09/15/17 10:17 73 97/53 (68) 97 09/15/17 10:00 66 83/52 (62) 97 09/15/17 09:34 100 Nasal Cannula 4.00 09/15/17 09:30 74 95/54 (68) 100 09/15/17 09:00 116 118/74 (89) 100 09/15/17 08:30 112 109/58 (75) 100 09/15/17 08:00 119 104/56 (72) 100 09/15/17 08:00 99 Nasal Cannula 5.00 30 09/15/17 05:11 26 09/15/17 05:11 26 09/15/17 04:00 98.7 126 103/70 (81) 98 09/15/17 04:00 98 Nasal Cannula 5.00 30 09/15/17 00:00 100 Nasal Cannula 5.00 30 09/15/17 00:00 98.2 130 143/76 (98) 100 09/14/17 21:25 94 Nasal Cannula 5.00 09/14/17 20:00 98.7 125 28 111/56 (74) 100 09/14/17 20:00 Nasal Cannula 5.00 30 09/14/17 15:44 92 Nasal Cannula 5.00 Intake & Output 09/15/17 09/15/17 07:00 19:00 Output Total 1300 ml Balance -1300 ml Output Urine Total 1300 ml Physical Exam CONSTITUTIONAL/GENERAL: This is a frail, elderly, pale female, lying in bed. Falls off to sleep during visit. TUBES/LINES/DRAINS: NC, PIV, catheter, SCDs. SKIN: No jaundice, rashes, or lesions. Ecchymoses on upper extremities. Skin temperature appropriate. Not diaphoretic. Tongue with dried blood noted. CARDIOVASCULAR: Irregularly irregular. A. Fib on monitor. RESPIRATORY/CHEST: Mildly labored respirations in NC. Diminished bilateral bases. scattered rhonchi. GASTROINTESTINAL: Abdomen soft, non distended. + bowel sounds. Dobbhoff tube to the right nare infusing Glucerna at 40 mL an hour. GENITOURINARY: Without palpable bladder distension. Catheter in place. MUSCULOSKELETAL: Extremities with edema. Generalized weakness. moves all extremities. NEUROLOGICAL: Lethargic and dosing, soft voice improving, follows commands, answers questions appropriately. PSYCHIATRIC: denies anxiety during my visit, relief with Lorazepam. . Diagnostic Tests Laboratory Laboratory Tests Test 09/13/17 01:27 09/13/17 12:55 09/14/17 16:33 09/15/17 06:03 Blood Gas Puncture Site RT RADIAL Blood Gas Patient Temperature 98.6 Blood Gas HCO3 25 mmol/L (22-26) Blood Gas Base Excess 0.8 mmol/L (-2-2) Blood Gas Oxygen Saturation 82 % (90-100) Arterial Blood pH 7.38 (7.380-7.420) Arterial Blood Partial Pressure CO2 43 mmHg (38-42) Arterial Blood Partial Pressure O2 57 mmHg (61-120) Arterial Blood Oxygen Content 10.1 Vol % (12.0-20.0) Arterial Blood Carboxyhemoglobin 1.5 % (0-4) Arterial Blood Methemoglobin 1.2 % (0-2) Blood Gas Hemoglobin 8.7 G/DL (12.0-16.0) Oxygen Delivery Device Venti Mask Blood Gas Liter Flow 6 L/M Blood Gas Inspired Oxygen 50 % White Blood Count 5.0 TH/MM3 (4.0-11.0) 4.4 TH/MM3 (4.0-11.0) Red Blood Count 2.64 MIL/MM3 (4.00-5.30) 2.62 MIL/MM3 (4.00-5.30) Hemoglobin 8.7 GM/DL (11.6-15.3) 8.4 GM/DL (11.6-15.3) Hematocrit 26.1 % (35.0-46.0) 25.6 % (35.0-46.0) Mean Corpuscular Volume 98.9 FL (80.0-100.0) 97.6 FL (80.0-100.0) Mean Corpuscular Hemoglobin 32.8 PG (27.0-34.0) 32.1 PG (27.0-34.0) Mean Corpuscular Hemoglobin Concent 33.2 % (32.0-36.0) 32.9 % (32.0-36.0) Red Cell Distribution Width 17.9 % (11.6-17.2) 18.2 % (11.6-17.2) Platelet Count 194 TH/MM3 (150-450) 203 TH/MM3 (150-450) Mean Platelet Volume 7.5 FL (7.0-11.0) 7.5 FL (7.0-11.0) Blood Urea Nitrogen 19 MG/DL (7-18) 19 MG/DL (7-18) 14 MG/DL (7-18) Creatinine 0.40 MG/DL (0.50-1.00) 0.47 MG/DL (0.50-1.00) 0.38 MG/DL (0.50-1.00) Random Glucose 107 MG/DL (74-106) 101 MG/DL (74-106) 88 MG/DL (74-106) Calcium Level 8.0 MG/DL (8.5-10.1) 8.4 MG/DL (8.5-10.1) 8.0 MG/DL (8.5-10.1) Sodium Level 138 MEQ/L (136-145) 136 MEQ/L (136-145) 138 MEQ/L (136-145) Potassium Level 4.6 MEQ/L (3.5-5.1) 4.4 MEQ/L (3.5-5.1) 4.0 MEQ/L (3.5-5.1) Chloride Level 104 MEQ/L (98-107) 100 MEQ/L (98-107) 99 MEQ/L (98-107) Carbon Dioxide Level 25.0 MEQ/L (21.0-32.0) 28.0 MEQ/L (21.0-32.0) 29.7 MEQ/L (21.0-32.0) Anion Gap 9 MEQ/L (5-15) 8 MEQ/L (5-15) 9 MEQ/L (5-15) Estimat Glomerular Filtration Rate 153 ML/MIN (>89) 127 ML/MIN (>89) 162 ML/MIN (>89) B-Type Natriuretic Peptide 632 PG/ML (0-100) Magnesium Level 1.9 MG/DL (1.5-2.5) 1.9 MG/DL (1.5-2.5) Result Diagram: 09/14/17 1633 09/15/17 0603 Microbiology Microbiology Date/Time Source Procedure Growth Status 08/29/17 17:23 Blood Peripheral Aerobic Blood Culture - Final NO GROWTH IN 5 DAYS Complete 08/29/17 17:23 Blood Peripheral Anaerobic Blood Culture - Final NO GROWTH IN 5 DAYS Complete 08/29/17 15:00 Fluid Pleural Fluid Fungal Smear - Final NO FUNGAL ELEMENTS SEEN. Resulted 08/29/17 15:00 Fluid Pleural Fluid Fungal Culture - Preliminary NO GROWTH IN 2 WEEKS Resulted 08/15/17 02:28 Stool Stool Stool Occult Blood (MARCIA) - Final HEMOCCULT NEGATIVE Complete 08/21/17 15:20 Sputum Endotracheal Gram Stain - Final Complete 08/21/17 15:20 Sputum Endotracheal Sputum Culture - Final NO GROWTH IN 48 HOURS. Complete 08/21/17 13:45 Urine Catheterized Urine Urine Culture - Final NO GROWTH IN 48 HOURS. Complete . Imaging Last Impressions Chest X-Ray 09/13/17 0000 Signed Impressions: Service Date/Time: Wednesday, September 13, 2017 15:27 - CONCLUSION: 1. Bilateral effusions and diffuse bilateral infiltrates suggesting interstitial edema. The heart is mildly enlarged. There is consolidation of the left lower lobe. Appearance of the parenchyma similar to previous dated 09/11/17. Erik Joel MD Abdomen X-Ray 09/09/17 0000 Signed Impressions: Service Date/Time: Saturday, September 09, 2017 18:20 - CONCLUSION: Dobbhoff feeding tube is in the proximal duodenum. Adan Nunes MD Thoracentesis 09/04/17 0000 Signed Impressions: Service Date/Time: August 15:12 - CONCLUSION: 1. Small bilateral pleural effusions with concomitant atelectatic changes. 2. Fluid collections are too small to safely drain percutaneously with CT. Shashi Moreno MD Chest Ultrasound 09/04/17 0000 Signed Impressions: Service Date/Time: August 09:23 - CONCLUSION: Right pleural effusion as above. Shashi Moreno MD Chest CT 08/29/17 0000 Signed Impressions: Service Date/Time: Tuesday, August 29, 2017 14:48 - CONCLUSION: Following thoracentesis there is decreasing amount of effusion. Significant consolidation persists. There is no pneumothorax. Juan J Joel MD FACR Abdomen/Pelvis CT 08/23/17 1426 Signed Impressions: Service Date/Time: Wednesday, August 23, 2017 22:50 - CONCLUSION: 1. Suspected mild diffuse colitis, nonspecific but presumably infectious or inflammatory. No obstruction or abscess. 2. Trace ascites about the same there is worsening anasarca and worsening pleural effusions and consolidation of both lung bases. 3. Tiny nonobstructing stone of the right kidney and a generally benign appearing cyst lower pole the left kidney. No evidence of obstructive uropathy or other etiology for acute renal failure. 4. Atherosclerotic aorta. No aneurysm. Adan Nunes MD Upper Extremity Ultrasound 08/23/17 0000 Signed Impressions: Service Date/Time: Wednesday, August 23, 2017 16:25 - CONCLUSION: Bilateral upper extremity DVT as described above. Samuel Peralta MD Lower Extremity Ultrasound 08/23/17 0000 Signed Impressions: Service Date/Time: Wednesday, August 23, 2017 15:50 - CONCLUSION: 1. There is incomplete compression of the left common femoral vein raising suspicion for nonocclusive thrombus. This vessel, however, still demonstrates normal Doppler blood flow and respiratory variability. 2. The remaining veins of the left lower extremity are patent and the entire right lower extremity is patent without thrombus. Adan Machuca MD Lumbar Puncture Fluoroscopy 08/15/17 0000 Signed Impressions: Service Date/Time: Tuesday, August 15, 2017 15:36 - CONCLUSION: 1. Uncomplicated fluoroscopically guided lumbar puncture. 2. Please note, requested opening pressures were not obtained due to technical difficulties. Shashi Moreno MD Brain MRI 08/15/17 0000 Signed Impressions: Service Date/Time: Tuesday, August 15, 2017 16:57 - CONCLUSION: 1. 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 2. Mild stenosis in the upper cervical spine as above. Esau Martell MD Abdomen Ultrasound 08/15/17 0000 Signed Impressions: Service Date/Time: Tuesday, August 15, 2017 10:40 - CONCLUSION: 1. No abnormality is identified to explain the clinical symptoms. There is no hydronephrosis. 2. The liver is normal in size and echotexture. Adan Machuca MD Head CT 08/14/172231 Signed Impressions: Service Date/Time: July 22:54 - CONCLUSION: Unremarkable study. Josseline Villagomez MD . Procedures * 08/25/17 - extubated. * 08/15/17-lumbar puncture by IR * 08/15/17 - right IJ central line, intubated. . Assessment and Plan Disease Oriented Problem List: (1) Acute respiratory failure Comment: now on NC (2) Tachycardia (3) Alcohol abuse (4) Atrial fibrillation Symptom Scale: (1) Pain 0-10 Scale: 0 (2) Dyspnea 0-10 Scale: 0 (3) Weakness 0-10 Scale: 0 Comment: continue PT/ OT Pertinent Non-Medical Issues Psychosocial: . Lives with Nicole flores. Has 3 daughters and 1 son. Spiritual: Adventism david. Legal: According to her Living Will she names Silvia lfores as primary HCS and son Jl Olson as alternate HCS. Ethical issues impacting care: No known concerns at this time. . Important Contacts * Silvia "Nicole" Toby, daughter/ HCS: [phone] * Jl Olson, son/ alternate HCS: [phone] or [phone] * Jessica, daughter: [phone] * Chelsea, daughter: [phone] . Prognosis Ms. Olson is an 82 year old admitted with rhabdomyolysis, septic shock uncertain etiology, dehydration, renal failure. At this point we will need additional information to determine overall prognosis. Given her advanced age, she remain high risk for further setbacks or decline. . Code Status: Full Code Plan * Patient appears to have some insight and judgment regarding her current health condition, recommend shared medical decision making as her mentation seems to wax and wane. According to her Living Will she names Silvia flores as primary HCS and son Jl Olson as alternate HCS. * FULL CODE. * Goals remain aggressive. Patient hopes for continued rehab ([facility]) and then DC home. Family previously declined PEG tube. * SYMPTOMS: Dyspnea: Medically extubated 08/25/17 am. Denies SOB on NC. Pain: potential sources include intubation, chronic neck pain, infection, etc. complaining of severe mouth pain with eating. Previously on Magic mouthwash which was discontinued, now on Diflucan and Mycelex troches. Dobbhoff tube inserted for bypass nutrition. Has PRN Oxycodone, none given. PRN Morphine 1mg IV available, last dose 09/15/2017 at 4:59. Anxiety: Off all sedation. Denies. Weakness: Continue PT/OT. Decreased appetite: poor oral intake, eating 10-25% of some meals and Ensure, encouraged increased oral intake. * Palliative care will continue to throughout hospital course to assist with clarification of goals. . Attestation To help prompt me to consider important information that might be impacting today's encounter and assessment, information from prior notes written by myself or my colleagues may have been "brought forward" into today's note. My signature on this note, however, is an attestation that I personally performed the exam, history, and/or decision-making noted today, and, unless otherwise indicated, the interactions with patient, family, and staff as well as the review of records all occurred today. I also attest that the listed assessment and stated plan reflect my best clinical judgment today based on the combination of historical information, prior notes, and today's exam/ interactions. When time spent is documented, it refers only to time spent today by the signer, or if indicated, combined time spent today by collaborating physician/nurse practitioner. Vashti Riley Sep 15, 2017 13:44
[2017-09-15] MEDS: ENOXAPARIN SODIUM 100 MG/ML SYRINGE SQ SCH (13:55)
--- NOTE | 2017-09-15 14:22 | HHI.PR ---
Subjective Remarks Follow-up for multiple medical conditions and assessment plan Breathing has improved. She did not require BiPAP or nonrebreather overnight. She remains anxious. Family asked for psych consult. Dobbhoff accidentally removed and patient was changing position. Discussed case with patient's daughter and RN Chloé. No other acute events overnight. Objective Vitals Vital Signs Date Time Temp Pulse Resp B/P (MAP) Pulse Ox O2 Delivery O2 Flow Rate FiO2 09/15/17 12:00 99 Nasal Cannula 4.00 30 09/15/17 10:30 63 93/54 (67) 100 09/15/17 10:17 73 97/53 (68) 97 09/15/17 10:00 66 83/52 (62) 97 09/15/17 09:34 100 Nasal Cannula 4.00 09/15/17 09:30 74 95/54 (68) 100 09/15/17 09:00 116 118/74 (89) 100 09/15/17 08:30 112 109/58 (75) 100 09/15/17 08:00 119 104/56 (72) 100 09/15/17 08:00 99 Nasal Cannula 5.00 30 09/15/17 05:11 26 09/15/17 05:11 26 09/15/17 04:00 98.7 126 103/70 (81) 98 09/15/17 04:00 98 Nasal Cannula 5.00 30 09/15/17 00:00 100 Nasal Cannula 5.00 30 09/15/17 00:00 98.2 130 143/76 (98) 100 09/14/17 21:25 94 Nasal Cannula 5.00 09/14/17 20:00 98.7 125 28 111/56 (74) 100 09/14/17 20:00 Nasal Cannula 5.00 30 09/14/17 15:44 92 Nasal Cannula 5.00 I/O 09/14/17 09/14/17 09/14/17 09/15/17 09/15/17 09/15/17 07:00 15:00 23:00 07:00 15:00 23:00 Intake Total 1791 ml 510 ml Output Total 1550 ml 1200 ml 1300 ml Balance 241 ml -690 ml -1300 ml Intake Oral 400 ml 40 ml Tube Feeding 991 ml 470 ml Other 400 ml Output Urine Total 1550 ml 1200 ml 1300 ml Bladder Scan Volume Amount 746 ml # Bowel Movements 2 Result Diagram: 09/14/17 1633 09/15/17 0603 Objective Remarks GENERAL: 82-year-old female currently resting in bed on nasal cannula in place. CARDIOVASCULAR: IRR. S1, S2 no S4. Without murmur RESPIRATORY: Mild basilar crackles otherwise clear to auscultation. GASTROINTESTINAL: Abdomen soft, non-tender. Mildly distended. Bowel sounds hypoactive but present. No guarding or rigidity MUSCULOSKELETAL: Trace edema, more prominent LUE. NEURO: Awake alert oriented 3, conversant. Following commands, no obvious focal deficits PSYCH: anxious Medications and IVs Current Medications Etomidate (Amidate Inj) 40 mg STK-MED ONCE .ROUTE ; Start 08/14/17 at 22:38; Stop 08/14/17 at 22:52; Status DC Succinylcholine Chloride (Quelicin Inj) 200 mg STK-MED ONCE .ROUTE ; Start 08/14 at 22:38; Stop 08/14/17 at 22:52; Status DC Etomidate (Amidate Inj) 40 mg STK-MED ONCE .ROUTE ; Start 08/14/17 at 22:39; Stop 08/14/17 at 22:52; Status DC Sodium Chloride 1,000 ml @ 999 mls/hr BOLUS ONCE IV Last administered on 08/15at 00:27; Start 08/15/17 at 00:15; Stop 08/15/17 at 01:15; Status DC Ceftriaxone Sodium 1000 mg/ Sodium Chloride 100 ml @ 200 mls/hr ONCE ONCE IV Last administered on 08/15/17at 00:27; Start 08/15/17 at 00:15; Stop 08/15/17 at 00:44; Status DC Metronidazole 100 ml @ 100 mls/hr ONCE ONCE IV Last administered on at 01:26; Start 08/15/17 at 00:15; Stop 08/15/17 at 01:14; Status DC Sodium Chloride 1,000 ml @ 999 mls/hr BOLUS ONCE IV Last administered on 08/15at 01:42; Start 08/15/17 at 01:45; Stop 08/15/17 at 02:45; Status DC Sodium Chloride 1,000 ml @ 100 mls/hr Q10H IV Last administered on 08/15/17at 02:57; Start 08/15/17 at 01:58; Stop 08/15/17 at 02:58; Status DC Sodium Chloride (NS Flush) 2 ml UNSCH PRN IV FLUSH FLUSH AFTER USING IV ACCESS Last administered on 09/12/17at 08:09; Start 08/15/17 at 02:00 Sodium Chloride (NS Flush) 2 ml BID IV FLUSH Last administered on 09/15/17at 08: 43; Start 08/15/17 at 09:00 Naloxone HCl (Narcan Inj) 0.4 mg UNSCH PRN IV PUSH SEE LABEL COMMENTS; Start at 02:00 Sodium Chloride 1,000 ml @ 999 mls/hr BOLUS ONCE IV Last administered on 08/15at 02:32; Start 08/15/17 at 02:00; Stop 08/15/17 at 03:00; Status DC Metronidazole 100 ml @ 100 mls/hr Q6H IV Last administered on 08/29/17at 08:52; Start 08/15/17 at 08:00; Stop 08/29/17 at 12:02; Status DC Thiamine HCl (Thiamine Inj) 100 mg ONCE ONCE IM Last administered on at 02:57; Start 08/15/17 at 02:00; Stop 08/15/17 at 02:04; Status DC Thiamine HCl 100 mg/Sodium Chloride 101 ml @ 101 mls/hr DAILY IV Last administered on 08/15/17at 09:44; Start 08/15/17 at 09:00; Stop 08/15/17 at 10:23 ; Status DC Pharmacy Profile Note 0 ml @ 0 mls/hr UNSCH OTHER ; Start 08/15/17 at 02:15; Stop 08/18/17 at 08:00; Status DC Piperacillin Sod/ Tazobactam Sod 50 ml @ 200 mls/hr Q8H IV ; Start 08/15/17 at 03:00; Stop 08/15/17 at 03:00; Status DC Vancomycin HCl 1000 mg/Sodium Chloride 250 ml @ 250 mls/hr ONCE ONCE IV Last administered on 08/15/17at 03:44; Start 08/15/17 at 03:00; Stop 08/15/17 at 03:59 ; Status DC Ampicillin Sodium 2000 mg/Sodium Chloride 100 ml @ 400 mls/hr Q4H IV Last administered on 08/15/17at 03:21; Start 08/15/17 at 03:00; Stop 08/15/17 at 07:09 ; Status DC Ceftriaxone Sodium 2000 mg/ Sodium Chloride 100 ml @ 200 mls/hr Q12H IV ; Start 08/15/17 at 13:00; Stop 08/15/17 at 13:00; Status DC Ceftriaxone Sodium 1000 mg/ Sodium Chloride 100 ml @ 200 mls/hr ONCE ONCE IV Last administered on 08/30/17at 06:23; Start 08/15/17 at 04:00; Stop 08/15/17 at 04:29; Status DC Sodium Bicarbonate 100 meq/Dextrose 1,100 ml @ 100 mls/hr Q11H IV Last administered on 08/18/17at 03:38; Start 08/15/17 at 03:00; Stop 08/18/17 at 07:56 ; Status DC Atropine Sulfate (Atropine Inj) 1 mg STK-MED ONCE .ROUTE ; Start 08/15/17 at 05: 34; Stop 08/15/17 at 05:35; Status DC Epinephrine HCl (EPINEPHrine (1:10,000) INJ) 1 mg STK-MED ONCE .ROUTE ; Start at 05:35; Stop 08/15/17 at 05:36; Status DC Sodium Bicarbonate (Sodium Bicarbonate 8.4% Inj) 50 meq ONCE ONCE IV PUSH Last administered on 08/15/17at 06:05; Start 08/15/17 at 06:00; Stop 08/15/17 at 06:01; Status DC Sodium Chloride 1,000 ml @ 999 mls/hr BOLUS ONCE IV Last administered on 08/15at 06:06; Start 08/15/17 at 06:00; Stop 08/15/17 at 07:00; Status DC Hydrocortisone Sodium Succinate (SoluCORTEF INJ) 100 mg Q8HR IV PUSH Last administered on 08/15/17at 06:05; Start 08/15/17 at 06:00; Stop 08/15/17 at 10:41 ; Status DC Norepinephrine Bitartrate 250 ml @ 7.5 mls/hr TITRATE PRN IV Blood pressure management; Start 08/15/17 at 06:00; Stop 08/15/17 at 07:31; Status DC Terbutaline Sulfate (Brethine Inj) 1 mg UNSCH PRN SQ For Extravasation; Start 08/15/17 at 06:00; Stop 08/15/17 at 08:35; Status DC Heparin Sodium (Porcine) (Heparin Inj) 3,000 units ONCE ONCE IV PUSH ; Start at 06:00; Stop 08/15/17 at 06:12; Status DC Heparin Sodium/ Dextrose 250 ml @ 9 mls/hr TITRATE PRN IV Coagulation Management; Start 08/15/17 at 06:00; Stop 08/15/17 at 10:41; Status DC Miscellaneous Information Patient in critical care unit? Ass... [id number] .XX Last administered on 08/15/17at 06:15; Start 08/15/17 at 06:15 Chlorhexidine Gluconate (Chlorhexidine 2% Cloth) 3 pack DAILY@04 TOPICAL Last administered on 08/20/17at 04:00; Start 08/16/17 at 04:00; Stop 08/20/17 at 04:01 ; Status DC Chlorhexidine Gluconate (Chlorhexidine 2% Cloth) 3 pack UNSCH PRN TOPICAL HYGIENIC CARE; Start 08/15/17 at 06:15; Stop 08/20/17 at 06:14; Status DC Flumazenil (Romazicon Inj) 0.2 mg Q1M PRN IV PUSH SEE LABEL COMMENTS; Start at 06:30; Stop 09/06/17 at 13:04; Status DC Lorazepam (Ativan) 1 mg Q4H PRN PO CIWA 8 - 10; Start 08/15/17 at 06:30; Stop 08/16/17 at 07:59; Status DC Lorazepam (Ativan Inj) 1 mg Q4H PRN IV PUSH CIWA 8 - 10 Last administered on at 13:10; Start 08/15/17 at 06:30; Stop 08/16/17 at 07:59; Status DC Lorazepam (Ativan) 2 mg Q2H PRN PO CIWA 11-14; Start 08/15/17 at 06:30; Stop at 07:59; Status DC Lorazepam (Ativan Inj) 2 mg Q2H PRN IV PUSH CIWA 11-14; Start 08/15/17 at 06:30 ; Stop 08/16/17 at 07:59; Status DC Lorazepam (Ativan Inj) 2 mg Q1H PRN IV PUSH CIWA 15-20; Start 08/15/17 at 06:30 ; Stop 08/16/17 at 07:59; Status DC Lorazepam (Ativan Inj) 2 mg Q15M PRN IV PUSH CIWA > 20; Start 08/15/17 at 06:30 ; Stop 08/16/17 at 07:59; Status DC Ipratropium [place] (Atrovent Neb) 0.5 mg Q2HR NEB PRN NEB wheezing Last administered on 08/24/17at 03:57; Start 08/15/17 at 06:30; Stop 08/24/17 at 17:11 ; Status DC Ceftriaxone Sodium 1000 mg/ Sodium Chloride 100 ml @ 200 mls/hr Q24H IV ; Start 08/16/17 at 00:00; Stop 08/16/17 at 00:00; Status DC Norepinephrine Bitartrate 250 ml @ 7.5 mls/hr TITRATE PRN IV Blood pressure management Last administered on 08/16/17at 22:50; Start 08/15/17 at 07:30; Stop 08/18/17 at 07:56; Status DC Terbutaline Sulfate (Brethine Inj) 1 mg UNSCH PRN SQ For Extravasation; Start 08/15/17 at 07:30; Stop 08/15/17 at 09:15; Status DC Etomidate (Amidate Inj) 20 mg ONCE ONCE IV PUSH Last administered on at 07:30; Start 08/15/17 at 07:30; Stop 08/15/17 at 07:32; Status DC Fentanyl Citrate 250 ml @ 5 mls/hr TITRATE PRN IV SEDATION Last administered on 08/25/17at 04:05; Start 08/15/17 at 07:30; Stop 08/26/17 at 08:17; Status DC Etomidate (Amidate Inj) 40 mg STK-MED ONCE .ROUTE Last administered on at 07:28; Start 08/15/17 at 07:28; Stop 08/15/17 at 07:29; Status DC Fentanyl Citrate (fentaNYL INJ) 100 mcg STK-MED ONCE .ROUTE Last administered on 08/15/17at 07:28; Start 08/15/17 at 07:28; Stop 08/15/17 at 07:29; Status DC Fentanyl Citrate (fentaNYL INJ) 100 mcg STK-MED ONCE .ROUTE Last administered on 08/15/17at 07:37; Start 08/15/17 at 07:37; Stop 08/15/17 at 07:38; Status DC Phenylephrine HCl 40 mg/Dextrose 500 ml @ 30 mls/hr TITRATE PRN IV Blood pressure management; Start 08/15/17 at 10:00; Stop 08/16/17 at 07:59; Status DC Terbutaline Sulfate (Brethine Inj) 1 mg UNSCH PRN SQ For Extravasation; Start 08/15/17 at 09:00; Status Cancel Dextrose (D50w (Vial) Inj) 50 ml UNSCH PRN IV PUSH HYPOGLYCEMIA-SEE COMMENTS; Start 08/15/17 at 10:15; Stop 08/16/17 at 08:03; Status DC Glucagon (Glucagon Inj) 1 mg UNSCH PRN OTHER HYPOGLYCEMIA-SEE COMMENTS; Start 08/15/17 at 10:15; Stop 08/16/17 at 08:03; Status DC Insulin Human Regular (NovoLIN R SUPPLEMENTAL SCALE) 1 Q4H SQ Last administered on 08/16/17at 04:00; Start 08/15/17 at 12:00; Stop 08/16/17 at 08:01 ; Status DC Thiamine HCl (Vitamin B1) 100 mg DAILY PO Last administered on 09/15/17at 08:41 ; Start 08/15/17 at 12:00 Multivitamins (Theragran) 1 tab DAILY PO Last administered on 09/15/17at 08:41; Start 08/15/17 at 12:00 Folic Acid (Folate) 1 mg DAILY PO Last administered on 09/15/17at 08:42; Start 08/15/17 at 12:00 Hydrocortisone Sodium Succinate (SoluCORTEF INJ) 50 mg Q6HR IV PUSH Last administered on 08/16/17at 05:39; Start 08/15/17 at 12:00; Stop 08/16/17 at 07:59 ; Status DC Famotidine (Pepcid Inj) 10 mg Q12H IV PUSH Last administered on 08/24/17at 00:08 ; Start 08/15/17 at 12:00; Stop 08/24/17 at 13:06; Status DC Diatrizoate Meglum/ Diatrizoate Sod ( Gastroannette Liq) 18 ml ONCE ONCE PO Last administered on 08/15/17at 12:09; Start 08/15/17 at 12:15; Stop 08/15/17 at 12:16; Status DC Ceftriaxone Sodium 2000 mg/ Sodium Chloride 100 ml @ 200 mls/hr Q12H IV Last administered on 08/18/17at 03:38; Start 08/15/17 at 16:00; Stop 08/18/17 at 11:19 ; Status DC Ampicillin Sodium 2000 mg/Sodium Chloride 100 ml @ 400 mls/hr Q4H IV Last administered on 08/18/17at 05:19; Start 08/15/17 at 15:00; Stop 08/18/17 at 08:00 ; Status DC Acyclovir Sodium 500 mg/Sodium Chloride 100 ml @ 100 mls/hr Q8H IV Last administered on 08/18/17at 06:13; Start 08/15/17 at 15:00; Stop 08/18/17 at 11:19 ; Status DC Aspirin (Aspirin Chew) 81 mg DAILY OG-TUBE Last administered on 09/15/17at 08:42 ; Start 08/15/17 at 19:00 Hydrocortisone Sodium Succinate (SoluCORTEF INJ) 50 mg Q12H IV PUSH Last administered on 08/17/17at 04:06; Start 08/16/17 at 18:00; Stop 08/17/17 at 07:44 ; Status DC Dextrose (D50w (Vial) Inj) 50 ml UNSCH PRN IV PUSH HYPOGLYCEMIA-SEE COMMENTS Last administered on 09/09/17at 08:31; Start 08/16/17 at 08:00; Stop 09/14/17 at 16:54; Status DC Glucagon (Glucagon Inj) 1 mg UNSCH PRN OTHER HYPOGLYCEMIA-SEE COMMENTS; Start 08/16/17 at 08:00; Stop 09/14/17 at 16:54; Status DC Insulin Human Regular (NovoLIN R SUPPLEMENTAL SCALE) 1 Q4HR SQ Last administered on 08/31/17at 16:21; Start 08/16/17 at 08:00; Stop 09/01/17 at 16:25; Status DC Vancomycin HCl 1000 mg/Sodium Chloride 250 ml @ 250 mls/hr ONCE ONCE IV Last administered on 08/16/17at 09:13; Start 08/16/17 at 10:00; Stop 08/16/17 at 10:59 ; Status DC Hydrocortisone Sodium Succinate (SoluCORTEF INJ) 25 mg Q12H IV PUSH Last administered on 08/22/17at 06:25; Start 08/17/17 at 18:00; Stop 08/22/17 at 10:18 ; Status DC Potassium Chloride 100 ml @ 50 mls/hr BOLUS ONCE IV Last administered on 08/17at 08:51; Start 08/17/17 at 07:45; Stop 08/17/17 at 09:44; Status DC Calcium Gluconate 1 gm/Sodium Chloride 110 ml @ 110 mls/hr ONCE ONCE IV Last administered on 08/17/17at 08:49; Start 08/17/17 at 09:00; Stop 08/17/17 at 09:59 ; Status DC Metoprolol Tartrate (Lopressor) 25 mg Q12HR PO Last administered on 08/19/17at 08:46; Start 08/17/17 at 09:00; Stop 08/26/17 at 08:17; Status DC Heparin Sodium (Porcine) (Heparin Inj) 5,000 units Q12HR SQ Last administered on 08/24/17at 21:46; Start 08/17/17 at 09:00; Stop 08/25/17 at 09:00; Status DC Metoprolol Tartrate (Lopressor Inj) 2.5 mg ONCE ONCE IV PUSH Last administered on 08/17/17at 07:53; Start 08/17/17 at 07:45; Stop 08/17/17 at 07:47 ; Status DC Vancomycin HCl 1000 mg/Sodium Chloride 250 ml @ 250 mls/hr ONCE ONCE IV Last administered on 08/17/17at 11:06; Start 08/17/17 at 10:00; Stop 08/18/17 at 08:00 ; Status DC Furosemide (Lasix Inj) 40 mg ONCE ONCE IV PUSH Last administered on 08/17/17at 13:39; Start 08/17/17 at 13:30; Stop 08/17/17 at 13:31; Status DC Propofol 100 ml @ 2.19 mls/hr TITRATE PRN IV SEDATION Last administered on at 10:24; Start 08/17/17 at 18:30; Stop 08/25/17 at 09:00; Status DC Potassium Chloride 100 ml @ 25 mls/hr ONCE ONCE IV Last administered on at 21:42; Start 08/17/17 at 21:15; Stop 08/18/17 at 01:14; Status DC Potassium Chloride (KCl) 40 meq NOW ONCE PO Last administered on 08/17/17at 21: 43; Start 08/17/17 at 21:15; Stop 08/17/17 at 21:16; Status DC Etomidate (Amidate Inj) 40 mg STK-MED ONCE .ROUTE Last administered on at 02:50; Start 08/18/17 at 02:50; Stop 08/18/17 at 02:51; Status DC Polyethylene Glycol/ Electrolytes (Colyte Liq) 4,000 ml ONCE ONCE PO Last administered on 08/18/17at 06:34; Start 08/18/17 at 06:00; Stop 08/18/17 at 06:01 ; Status DC Potassium Chloride 40 meq/ Sodium Chloride 520 ml @ 130 mls/hr ONCE ONCE IV- CENTRAL Last administered on 08/18/17at 10:10; Start 08/18/17 at 09:00; Stop at 12:59; Status DC Ceftriaxone Sodium 2000 mg/ Sodium Chloride 100 ml @ 200 mls/hr Q24H IV Last administered on 08/21/17at 04:20; Start 08/19/17 at 04:00; Stop 08/21/17 at 17:56 ; Status DC Diltiazem HCl (Cardizem Inj) 15 mg ONCE ONCE IV PUSH Last administered on 08/18at 21:05; Start 08/18/17 at 20:15; Stop 08/18/17 at 20:23; Status DC Diltiazem HCl 125 mg/Sodium Chloride 125 ml @ 5 mls/hr TITRATE PRN IV Tachycardia Last administered on 08/20/17at 14:08; Start 08/18/17 at 20:15; Stop 08/24/17 at 17:09; Status DC Potassium Chloride 30 meq/ Sodium Chloride 115 ml @ 38.333 mls/ hr Q3H IV- CENTRAL Last administered on 08/19/17at 07:43; Start 08/19/17 at 04:00; Stop at 09:59; Status DC Sodium Chloride 1,000 ml @ 999 mls/hr BOLUS ONCE IV Last administered on 08/19at 11:25; Start 08/19/17 at 12:00; Stop 08/19/17 at 13:00; Status DC Phenylephrine HCl 40 mg/Dextrose 500 ml @ 30 mls/hr TITRATE PRN IV Blood Pressure Management Last administered on 08/20/17at 00:09; Start 08/19/17 at 10: 30; Stop 08/23/17 at 14:17; Status DC Terbutaline Sulfate (Brethine Inj) 1 mg UNSCH PRN SQ FOR EXTRAVASATION PROTOCOL ; Start 08/19/17 at 10:30; Stop 08/23/17 at 08:47; Status DC Vasopressin 40 units/Dextrose 100 ml @ 1.5 mls/hr TITRATE PRN IV Blood Pressure Management; Start 08/19/17 at 10:30; Stop 08/19/17 at 15:20; Status DC Sodium Chloride 5.5 meq/Sodium Acetate 29.5 meq/ Potassium Chloride 20 meq/ Magnesium Chloride 5 meq/ Calcium Chloride 4.5 meq/ Multivitamins 10 ml/Folic Acid 1 mg/Amino Acids/ Dextrose 1,042.1719 ml @ 42 mls/hr Q24H IV-CENTRAL Last administered on 08/19/17at 20:12; Start 08/19/17 at 20:00; Stop 08/20/17 at 19:59 ; Status DC Fat Emulsion Intravenous 250 ml @ 31.25 mls/ hr Q24H IV-CENTRAL Last administered on 08/20/17at 20:10; Start 08/19/17 at 20:00; Stop 08/26/17 at 08:17 ; Status DC Vasopressin 40 units/Dextrose 100 ml @ 6 mls/hr [id number] IV ; Start 08/19/17 at 15:30; Stop 08/23/17 at 14:17; Status DC Digoxin (Lanoxin Inj) 0.5 mg ONCE ONCE IV PUSH Last administered on 08/19/17at 17:56; Start 08/19/17 at 15:30; Stop 08/19/17 at 15:31; Status DC Parenteral Electrolytes 1,000 ml @ 42 mls/hr [id number] IV Last administered on at 11:20; Start 08/19/17 at 16:00; Stop 08/22/17 at 10:22; Status DC Potassium Phosphate 30 mmol/ Sodium Chloride 260 ml @ 43.333 mls/ hr ONCE ONCE IV Last administered on 08/20/17at 08:10; Start 08/20/17 at 07:00; Stop at 12:59; Status DC Sodium Chloride 5.5 meq/Sodium Acetate 29.5 meq/ Potassium Chloride 20 meq/ Magnesium Chloride 5 meq/ Calcium Chloride 4.5 meq/ Multivitamins 10 ml/Folic Acid 1 mg/Insulin Human Regular 20 units/ Amino Acids/ Dextrose 1,042.3719 ml @ 42 mls/hr Q24H IV-CENTRAL Last administered on 08/20/17at 20:10; Start 08/20/17 at 20:00; Stop 08/25/17 at 09:00; Status DC Digoxin (Lanoxin Inj) 0.5 mg STK-MED ONCE .ROUTE ; Start 08/20/17 at 12:40; Stop 08/20/17 at 12:41; Status DC Metoprolol Tartrate (Lopressor Inj) 5 mg STK-MED ONCE .ROUTE ; Start 08/20/17 at 12:40; Stop 08/20/17 at 12:41; Status DC Metoprolol Tartrate (Lopressor Inj) 5 mg NOW ONCE IV Last administered on 08/20at 12:45; Start 08/20/17 at 12:45; Stop 08/20/17 at 12:46; Status DC Digoxin (Lanoxin Inj) 0.5 mg NOW ONCE IV Last administered on 08/20/17at 12:46 ; Start 08/20/17 at 12:45; Stop 08/20/17 at 12:46; Status DC Phenylephrine HCl (Neosynephrine/ NS 1000 Mcg/10ml Syr) 1,000 mcg STK-MED ONCE IV ; Start 08/18/17 at 12:00; Stop 08/20/17 at 12:59; Status DC Ephedrine Sulfate (ePHEDrine/NS 25 MG/5 ML SYR) 25 mg STK-MED ONCE IV ; Start at 12:00; Stop 08/20/17 at 12:59; Status DC Propofol (Diprivan 200 Mg/20 ml Inj) 200 mg STK-MED ONCE IV ; Start 08/18/17 at 12:00; Stop 08/20/17 at 12:59; Status DC Potassium Phosphate 30 mmol/ Sodium Chloride 260 ml @ 43.333 mls/ hr ONCE ONCE IV Last administered on 08/21/17at 10:24; Start 08/21/17 at 09:00; Stop at 14:59; Status DC Dexmedetomidine HCl (Precedex Inj) 41 mcg ONCE ONCE IV PUSH Last administered on 08/21/17at 10:25; Start 08/21/17 at 07:30; Stop 08/21/17 at 07:35; Status DC Dexmedetomidine HCl 200 mcg/ Sodium Chloride 52 ml @ 0 mls/hr TITRATE PRN IV SEDATION; Start 08/21/17 at 07:30; Status UNV Digoxin (Lanoxin Inj) 0.125 mg DAILY IV PUSH Last administered on 08/24/17at 09: 31; Start 08/21/17 at 09:00; Stop 08/24/17 at 13:06; Status DC Dexmedetomidine HCl 400 mcg/ Sodium Chloride 100 ml @ 4.05 mls/hr TITRATE PRN IV Desired RASS Last administered on 08/21/17at 11:20; Start 08/21/17 at 08:15; Stop 08/21/17 at 15:04; Status DC Acetaminophen (Tylenol) 650 mg Q4H PRN PO temp greater than 101 Last administered on 08/23/17at 19:52; Start 08/21/17 at 14:15; Stop 08/24/17 at 13:06 ; Status DC Dexmedetomidine HCl 1000 mcg/ Sodium Chloride 250 ml @ 4.05 mls/hr TITRATE PRN IV Desired RASS Last administered on 08/25/17at 04:04; Start 08/21/17 at 15: 15; Stop 08/25/17 at 09:00; Status DC Labetalol HCl (Trandate Inj) 20 mg Q4H PRN IV PUSH SBP greater than 160mm Hg Last administered on 08/21/17at 21:51; Start 08/21/17 at 17:15 Cefepime HCl 2000 mg/Sodium Chloride 100 ml @ 200 mls/hr Q8H IV Last administered on 08/25/17at 01:40; Start 08/21/17 at 18:00; Stop 08/25/17 at 08:59 ; Status DC Vancomycin HCl 1000 mg/Sodium Chloride 250 ml @ 250 mls/hr ONCE ONCE IV Last administered on 08/21/17at 20:29; Start 08/21/17 at 20:00; Stop 08/21/17 at 20:59 ; Status DC Vancomycin HCl (Vancomycin Inj) 1,000 mg STK-MED ONCE .ROUTE ; Start 08/22/17 at 07:02; Stop 08/22/17 at 07:03; Status DC Gentamicin Sulfate (Gentamicin Inj) 240 mg STK-MED ONCE .ROUTE ; Start 08/22/17 at 07:03; Stop 08/22/17 at 07:04; Status DC Vancomycin HCl 1000 mg/Sodium Chloride 250 ml @ 250 mls/hr ONCE ONCE IV ; Start 08/22/17 at 11:00; Stop 08/22/17 at 11:59; Status Cancel Pharmacy Profile Note 0 ml @ 0 mls/hr UNSCH OTHER ; Start 08/22/17 at 10:00; Stop 08/25/17 at 08:59; Status DC Micafungin Sodium 100 mg/Sodium Chloride 100 ml @ 100 mls/hr Q24H IV Last administered on 08/30/17at 11:19; Start 08/22/17 at 11:00; Stop 08/31/17 at 10:05; Status DC Hydrocortisone Sodium Succinate (SoluCORTEF INJ) 25 mg DAILY IV PUSH Last administered on 08/25/17at 08:07; Start 08/23/17 at 09:00; Stop 08/25/17 at 09:16 ; Status DC Water (Free Water) 250 ml Q8HR G-TUBE Last administered on 08/25/17at 04:05; Start 08/22/17 at 14:00; Stop 08/26/17 at 08:17; Status DC Furosemide (Lasix Inj) 40 mg ONCE ONCE IV PUSH Last administered on 08/22/17at 11:40; Start 08/22/17 at 11:00; Stop 08/22/17 at 11:01; Status DC Vancomycin HCl 1250 mg/Sodium Chloride 262.5 ml @ 250 mls/hr Q24H IV Last administered on 08/25/17at 08:17; Start 08/23/17 at 09:00; Stop 08/25/17 at 08:59 ; Status DC Miscellaneous Information SPECIFIC LAB TO BE DARLENE... ONCE ONCE .XX Last administered on 08/25/17at 08:17; Start 08/25/17 at 08:45; Stop 08/25/17 at 08:46 ; Status DC Diatrizoate Meglum/ Diatrizoate Sod (Md Elliott Liq) 18 ml ONCE ONCE PO Last administered on 08/23/17 19:51; Start 08/23/17 at 19:00; Stop 08/23/17 at 19:01; Status DC Melatonin (Melatonin) 5 mg HS PRN PO SLEEP Last administered on 08/27/17at 01:53 ; Start 08/23/17 at 19:00; Stop 08/29/17 at 12:02; Status DC Oxycodone HCl (Roxicodone) 5 mg Q6H PO Last administered on 08/25/17 01:39; Start 08/23/17 at 19:00; Stop 08/27/17 at 08:21; Status DC Fentanyl Citrate (fentaNYL INJ) 50 mcg Q1H PRN IV PUSH BREAKTHROUGH PAIN Last administered on 08/25/17 00:05; Start 08/23/17 at 19:00; Stop 08/25/17 at 09:00 ; Status DC Furosemide (Lasix Inj) 40 mg Q8H IV PUSH Last administered on 08/24/17 11:04; Start 08/23/17 at 20:00; Stop 08/24/17 at 13:06; Status DC Potassium Bicarb/ Potassium Chloride (K-Lyte Cl Eff) 25 meq Q8H NG Last administered on 09/03/17 20:22; Start 08/23/17 at 20:00; Stop 09/04/17 at 12:09; Status DC Heparin Sodium/ Dextrose 250 ml @ 10 mls/hr TITRATE PRN IV Coagulation Management Last administered on 08/27/17at 18:11; Start 08/24/17 at 03:00; Stop 08/30/17 at 12:02; Status DC Artificial Tears (Tears Naturale Opth Soln) 1 drop Q8HR EACH EYE Last administered on 09/07/17at 14:30; Start 08/24/17 at 14:00; Stop 09/07/17 at 17:39 ; Status DC Acetaminophen (Tylenol 650 Mg/ 20 ml Liq) 650 mg Q6H PRN NG fever Last administered on 09/09/17at 20:17; Start 08/24/17 at 13:00 Famotidine (Pepcid Liq) 20 mg BID NG Last administered on 08/29/17at 08:53; Start 08/24/17 at 21:00; Stop 08/29/17 at 14:20; Status DC Digoxin (Lanoxin Liq) 0.125 mg DAILY PO Last administered on 09/15/17at 09:00; Start 08/25/17 at 09:00 Bumetanide 100 ml @ 1 mls/hr Q24H IV Last administered on 08/24/17at 20:18; Start 08/24/17 at 14:00; Stop 08/25/17 at 09:17; Status DC Albumin Human 50 ml @ 60 mls/hr Q12H IV Last administered on 08/26/17at 01:30; Start 08/24/17 at 14:00; Stop 08/26/17 at 02:49; Status DC Ferrous Sulfate (Ferrous Sulfate Liq) 300 mg BID PO Last administered on at 08:41; Start 08/24/17 at 21:00 Fentanyl Citrate (fentaNYL INJ) 50 mcg ONCE ONCE IV PUSH Last administered on 08/24/17at 17:00; Start 08/24/17 at 17:00; Stop 08/24/17 at 17:01; Status DC Midazolam HCl (Versed Inj) 5 mg ONCE ONCE IV Last administered on 08/24/17at 17 :00; Start 08/24/17 at 17:00; Stop 08/24/17 at 17:01; Status DC Norepinephrine Bitartrate 4 mg/ Sodium Chloride 250 ml @ 7.5 mls/hr TITRATE PRN IV Blood pressure management Last administered on 08/25/17at 00:15; Start at 17:15; Stop 08/25/17 at 09:00; Status DC Terbutaline Sulfate (Brethine Inj) 1 mg UNSCH PRN SQ For Extravasation; Start 08/24/17 at 17:15; Stop 08/29/17 at 14:21; Status DC Albuterol/ Ipratropium (Duoneb Neb) 1 ampule Q6HR NEB NEB Last administered on 08/25/17at 08:11; Start 08/24/17 at 22:00; Stop 08/25/17 at 09:33; Status DC Albuterol Sulfate (Albuterol Neb) 2.5 mg Q2HR NEB PRN NEB dyspnea; Start at 17:15; Stop 08/25/17 at 09:33; Status DC Sodium Chloride (NS Flush) DAILY IV FLUSH Last administered on 09/14/17at 09:00 ; Start 08/25/17 at 09:00 Sodium Chloride (NS Flush) UNSCH PRN IV FLUSH SEE PROTOCOL Last administered on 09/04/17at 07:49; Start 08/24/17 at 17:45 Cefepime HCl 2000 mg/Sodium Chloride 100 ml @ 200 mls/hr Q12H IV Last administered on 08/29/17at 02:15; Start 08/25/17 at 14:00; Stop 08/29/17 at 12:02; Status DC Albuterol/ Ipratropium (Duoneb Neb) 1 ampule Q4HR NEB NEB Last administered on 08/29/17at 11:09; Start 08/25/17 at 12:00; Stop 08/29/17 at 11:59; Status DC Albuterol/ Ipratropium (Duoneb Neb) 1 ampule Q2HR NEB PRN NEB SHORTNESS OF BREATH; Start 08/25/17 at 10:00; Stop 09/04/17 at 18:55; Status DC Miscellaneous Information D/C ICU ELECTROLYTE ORDERS... UNSCH PRN .XX SEE DOSE INSTRUCTIONS; Start 08/25/17 at 15:00 Miscellaneous Information ICU - CALL ORDERING PHYSIC... UNSCH PRN .XX SEE DOSE INSTRUCTIONS; Start 08/25/17 at 15:00 Potassium Chloride 100 ml @ 25 mls/hr UNSCH PRN IV ELECTROLYTE REPLACEMENT Last administered on 08/29/17at 16:51; Start 08/25/17 at 15:00 Potassium Bicarb/ Potassium Chloride (K-Lyte Cl Eff) 50 meq UNSCH PRN PO ELECTROLYTE REPLACEMENT; Start 08/25/17 at 15:00 Potassium Chloride 100 ml @ 50 mls/hr UNSCH PRN IV ELECTROLYTE REPLACEMENT Last administered on 09/01/17at 20:35; Start 08/25/17 at 15:00 Magnesium Sulfate 4 gm/Sodium Chloride 108 ml @ 54 mls/hr UNSCH PRN IV ELECTROLYTE REPLACEMENT; Start 08/25/17 at 15:00 Magnesium Sulfate 2 gm/Sodium Chloride 104 ml @ 52 mls/hr UNSCH PRN IV ELECTROLYTE REPLACEMENT; Start 08/25/17 at 15:00 Magnesium Oxide (Mag-Ox) 800 mg UNSCH PRN PO ELECTROLYTE REPLACEMENT; Start at 15:00 Sodium Phosphate 30 mmol/Sodium Chloride 260 ml @ 43.333 mls/ hr UNSCH PRN IV ELECTROLYTE REPLACEMENT; Start 08/25/17 at 15:00 Potassium Phosphate (K-Phos) 2,000 mg UNSCH PRN PO ELECTROLYTE REPLACEMENT Last administered on 09/11/17at 16:49; Start 08/25/17 at 15:00 Potassium Phosphate 30 mmol/ Sodium Chloride 260 ml @ 43.333 mls/ hr UNSCH PRN IV ELECTROLYTE REPLACEMENT Last administered on 09/02/17at 08:07; Start at 15:00 Metoprolol Tartrate (Lopressor Inj) 2.5 mg Q6H IV PUSH Last administered on at 03:59; Start 08/26/17 at 04:00; Stop 08/26/17 at 08:17; Status DC Fluconazole/ Sodium Chloride 400 ml @ 100 mls/hr Q24H IV Last administered on 08/27/17at 11:40; Start 08/26/17 at 08:00; Stop 08/27/17 at 21:35; Status DC Fluconazole/ Sodium Chloride 400 ml @ 100 mls/hr Q24H IV ; Start 08/26/17 at 10 :00; Status Cancel Metoprolol Tartrate (Lopressor) 50 mg Q12HR PO Last administered on 08/29/17at 08 :53; Start 08/26/17 at 09:00; Stop 08/31/17 at 10:59; Status DC Ipratropium [place] (Atrovent Neb) 0.5 mg Q2HR NEB PRN NEB SHORTNESS OF BREATH Last administered on 09/06/17at 23:22; Start 08/26/17 at 08:00; Stop 09/07/17 at 17:39; Status DC Ipratropium [place] (Atrovent Neb) 0.5 mg Q4HR NEB NEB Last administered on 04/16at 07:39; Start 08/26/17 at 08:00; Stop 09/06/17 at 12:41; Status DC Alprazolam (Xanax) 0.125 mg ONCE ONCE PO Last administered on 08/26/17at 09:02 ; Start 08/26/17 at 08:00; Stop 08/26/17 at 08:28; Status DC Miscellaneous (Pill Splitter) 1 ea UNSCH PRN OTHER SEE LABEL COMMENTS; Start at 08:30; Stop 09/04/17 at 12:39; Status DC Diltiazem HCl (Cardizem Inj) 10 mg ONCE ONCE IV Last administered on at 14:05; Start 08/26/17 at 13:45; Stop 08/26/17 at 13:53; Status DC Diltiazem HCl (Cardizem Inj) 10 mg ONCE ONCE IV ; Start 08/26/17 at 14:15; Stop 08/26/17 at 14:16; Status UNV Diltiazem HCl 125 mg/Sodium Chloride 125 ml @ 5 mls/hr TITRATE PRN IV Tachycardia; Start 08/26/17 at 14:15; Status UNV Diltiazem HCl 125 mg/Sodium Chloride 125 ml @ 5 mls/hr TITRATE PRN IV Tachycardia Last administered on 08/28/17at 20:36; Start 08/26/17 at 14:30; Stop 09/01/17 at 09:30; Status DC Metoprolol Tartrate (Lopressor Inj) 2.5 mg ONCE ONCE IV PUSH Last administered on 08/26/17at 17:05; Start 08/26/17 at 16:15; Stop 08/26/17 at 16:38 ; Status DC Metoprolol Tartrate (Lopressor Inj) 2.5 mg NOW ONCE IV PUSH Last administered on 08/26/17at 18:15; Start 08/26/17 at 18:15; Stop 08/26/17 at 18:16; Status DC Oxycodone HCl (Roxicodone) 5 mg Q6H PRN PO pain 6-10 Last administered on at 04:11; Start 08/27/17 at 13:00 Furosemide (Lasix Inj) 40 mg BID@09,18 IV PUSH Last administered on 09/02/17at 18 :00; Start 08/27/17 at 09:00; Stop 09/03/17 at 07:38; Status DC Magnesium Sulfate/ Dextrose 100 ml @ 100 mls/hr ONCE ONCE IV Last administered on 08/27/17at 10:35; Start 08/27/17 at 09:00; Stop 08/27/17 at 09:59 ; Status DC Morphine Sulfate (Morphine Inj) 1 mg Q4H PRN IV anxiety/pain 1-10 Last administered on 09/15/17at 04:59; Start 08/27/17 at 11:00 Furosemide (Lasix Inj) 20 mg ONCE STAT IV PUSH Last administered on 08/27/17at 12:00; Start 08/27/17 at 11:41; Stop 08/27/17 at 11:52; Status DC Fluconazole/ Sodium Chloride 200 ml @ 100 mls/hr Q24H IV Last administered on 09/09/17at 08:00; Start 08/28/17 at 08:00; Stop 09/09/17 at 09:03; Status DC Fluconazole/ Sodium Chloride 200 ml @ 100 mls/hr Q24H IV Last administered on 09/08/17at 10:49; Start 08/28/17 at 10:00; Stop 09/09/17 at 09:03; Status DC Furosemide (Lasix Inj) 40 mg STAT ONCE IV PUSH Last administered on 08/28/17 14:15; Start 08/28/17 at 14:00; Stop 08/28/17 at 14:04; Status DC Dexmedetomidine HCl (Precedex Inj) 36 mcg ONCE ONCE IV PUSH Last administered on 08/29/17 09:00; Start 08/29/17 at 09:00; Stop 08/29/17 at 09:08; Status DC Dexmedetomidine HCl 200 mcg/ Sodium Chloride 52 ml @ 3.71 mls/hr TITRATE PRN IV SEDATION Last administered on 09/01/17at 04:11; Start 08/29/17 at 10:00; Stop at 09:30; Status DC Sodium Chloride 250 ml @ 15 mls/hr ONCE ONCE IV Last administered on at 11:30; Start 08/29/17 at 11:30; Stop 08/30/17 at 04:09; Status DC Diphenhydramine HCl (Benadryl) 25 mg Q4H PRN PO SEE LABEL COMMENTS Last administered on 09/09/17at 22:13; Start 08/29/17 at 11:30; Stop 09/09/17 at 22:13 ; Status DC Furosemide (Lasix Inj) 20 mg ONCE ONCE IV PUSH Last administered on 08/29/17at 15:39; Start 08/29/17 at 11:30; Stop 08/29/17 at 11:31; Status DC Phenylephrine HCl (Neosynephrine Inj) 10 mg STK-MED ONCE .ROUTE Last administered on 08/29/17at 15:40; Start 08/29/17 at 11:42; Stop 08/29/17 at 11:43; Status DC Miscellaneous Medication (ASP Crit: Other exception documentation) 1 UNSCH X1 PRN .XX PHARMACY DOCUMENTATION; Start 08/29/17 at 12:00; Stop 08/30/17 at 11:59; Status DC Miscellaneous Medication ([facility] [place] [facility]) 1 UNSCH X1 PRN XX PHARMACY DOCUMENTATION; Start 08/29/17 at 12:00; Stop 08/30/17 at 11:59; Status DC Meropenem 1000 mg/ Sodium Chloride 100 ml @ 200 mls/hr Q8H IV Last administered on 08/30/17at 00:40; Start 08/29/17 at 15:00; Stop 08/30/17 at 15:18; Status DC Linezolid 300 ml @ 300 mls/hr Q12H IV Last administered on 09/02/17at 02:00; Start 08/29/17 at 14:00; Stop 09/02/17 at 08:05; Status DC Methylprednisolone Sodium Succinate (SoluMEDROL INJ) 125 mg STK-MED ONCE .ROUTE ; Start 08/29/17 at 12:24; Stop 08/29/17 at 12:25; Status DC Methylprednisolone Sodium Succinate (SoluMEDROL INJ) 125 mg STAT ONCE IV ; Start 08/29/17 at 13:45; Stop 08/29/17 at 13:46; Status DC Phenylephrine HCl 40 mg/Dextrose 500 ml @ 30 mls/hr TITRATE PRN IV Blood Pressure Management Last administered on 08/29/17at 11:30; Start 08/29/17 at 14:00 ; Stop 09/01/17 at 09:30; Status DC Terbutaline Sulfate (Brethine Inj) 1 mg UNSCH PRN SQ FOR EXTRAVASATION PROTOCOL ; Start 08/29/17 at 14:00; Stop 09/06/17 at 13:04; Status DC Famotidine (Pepcid) 10 mg BID NG Last administered on 09/06/17 09:19; Start at 21:00; Stop 09/06/17 at 16:12; Status DC Enoxaparin Sodium (Lovenox Inj) 100 mg Q24H SQ Last administered on 09/15/17at 13:55; Start 08/30/17 at 15:00 Methylprednisolone Sodium Succinate (SoluMEDROL INJ) 40 mg Q12H IV PUSH Last administered on 09/06/17at 12:34; Start 08/30/17 at 13:00; Stop 09/06/17 at 12:43 ; Status DC Metoprolol Tartrate (Lopressor) 12.5 mg Q8HR PO Last administered on 08/30/17at 22:16; Start 08/30/17 at 14:00; Stop 08/31/17 at 10:45; Status DC Miscellaneous (Pill Splitter) 1 ea UNSCH PRN OTHER SEE LABEL COMMENTS Last administered on 09/01/17at 09:12; Start 08/30/17 at 13:00 Meropenem 1000 mg/ Sodium Chloride 100 ml @ 200 mls/hr Q12H IV Last administered on 09/02/17 03:57; Start 08/30/17 at 16:00; Stop 09/02/17 at 08:10; Status DC Multi-Ingredient Mouthwash/Gargle (Magic Mouthwash Adult Liq) 5 ml QID PRN SWISH-SPIT MOUTH SORES Last administered on 09/04/17at 21:07; Start 08/30/17 at 19: 15; Stop 09/05/17 at 09:30; Status DC Metoprolol Tartrate (Lopressor) 25 mg Q8HR PO Last administered on 09/03/17at 06: 02; Start 08/31/17 at 14:00; Stop 09/03/17 at 07:38; Status DC Diltiazem HCl (Cardizem) 60 mg Q6HR PO Last administered on 09/05/17at 05:38; Start 09/01/17 at 12:00; Stop 09/05/17 at 11:48; Status DC Insulin Human Regular (NovoLIN R SUPPLEMENTAL SCALE) 1 ACHS SLIDING SCALE SQ Last administered on 09/02/17at 20:56; Start 09/01/17 at 17:00; Stop 09/04/17 at 09: 00; Status DC Temazepam (Restoril) 7.5 mg NOW ONCE PO Last administered on 09/01/17at 21:45; Start 09/01/17 at 21:30; Stop 09/01/17 at 21:31; Status DC Linezolid (Zyvox) 600 mg Q12H PO Last administered on 09/04/17at 00:33; Start 09/02/17 at 14:00; Stop 09/04/17 at 08:54; Status DC Cefepime HCl 2000 mg/Sodium Chloride 100 ml @ 200 mls/hr Q8H IV Last administered on 09/03/17at 01:00; Start 09/02/17 at 09:00; Stop 09/03/17 at 08:16; Status DC Furosemide (Lasix Inj) 40 mg DAILY IV PUSH Last administered on 09/03/17at 08:10 ; Start 09/03/17 at 09:00; Stop 09/04/17 at 07:19; Status DC Metoprolol Tartrate (Lopressor) 50 mg Q12HR PO Last administered on 09/15/17at 08:42; Start 09/03/17 at 09:00 Clonidine (Catapres) 0.1 mg Q8H PO Last administered on 09/03/17at 16:26; Start 09/03/17 at 08:00; Stop 09/04/17 at 07:19; Status DC Cefepime HCl 2000 mg/Sodium Chloride 100 ml @ 200 mls/hr Q12H IV Last administered on 09/04/17at 00:33; Start 09/03/17 at 13:00; Stop 09/04/17 at 08:54; Status DC Alprazolam (Xanax) 0.125 mg ONCE ONCE PO Last administered on 09/03/17at 09:00; Start 09/03/17 at 09:00; Stop 09/03/17 at 09:01; Status DC Clonidine (Catapres) 0.2 mg Q8H PO Last administered on 09/15/17at 08:42; Start 09/04/17 at 08:00 Albuterol/ Ipratropium (Duoneb Neb) 1 ampule Q4HR NEB NEB Last administered on 09/04/17at 15:31; Start 09/04/17 at 08:00; Stop 09/04/17 at 18:55; Status DC Temazepam (Restoril) 7.5 mg ONCE ONCE PO Last administered on 09/04/17at 21:06; Start 09/04/17 at 21:00; Stop 09/04/17 at 21:01; Status DC Sodium Chloride 500 ml @ 500 mls/hr BOLUS ONCE IV Last administered on at 07:36; Start 09/05/17 at 07:15; Stop 09/05/17 at 08:14; Status DC Multi-Ingredient Mouthwash/Gargle (Magic Mouthwash Adult Liq) 5 ml ACHS SWISH- SWAL Last administered on 09/15/17at 12:10; Start 09/05/17 at 12:00 Diltiazem HCl (Cardizem) 90 mg Q6HR PO Last administered on 09/15/17at 12:09; Start 09/05/17 at 12:00 Temazepam (Restoril) 7.5 mg ONCE ONCE PO Last administered on 09/05/17at 19:50; Start 09/05/17 at 21:00; Stop 09/05/17 at 21:01; Status DC Temazepam (Restoril) 30 mg HS PRN PO SLEEP Last administered on 09/06/17at 23:11 ; Start 09/06/17 at 12:45; Stop 09/07/17 at 17:39; Status DC Albuterol/ Ipratropium (Duoneb Neb) 1 ampule Q6HR NEB NEB Last administered on 09/08/17at 21:24; Start 09/06/17 at 16:00; Stop 09/09/17 at 12:41; Status DC Prednisone (Deltasone) 10 mg DAILY PO Last administered on 09/09/17at 08:47; Start 09/07/17 at 09:00; Stop 09/09/17 at 14:12; Status DC Dextrose (D50w (Vial) Inj) 50 ml UNSCH PRN IV PUSH HYPOGLYCEMIA-SEE COMMENTS; Start 09/06/17 at 12:45; Stop 09/06/17 at 14:15; Status DC Glucagon (Glucagon Inj) 1 mg UNSCH PRN OTHER HYPOGLYCEMIA-SEE COMMENTS; Start 09/06/17 at 12:45; Stop 09/06/17 at 14:15; Status DC Insulin Aspart (NovoLOG SUPPLEMENTAL SCALE) 1 ACHS SLIDING SCALE SQ ; Start 04/16 at 17:00; Stop 09/11/17 at 08:02; Status DC Famotidine (Pepcid) 20 mg BID NG Last administered on 09/15/17at 08:41; Start at 21:00 Albuterol Sulfate (Albuterol Neb) 2.5 mg Q2HR NEB PRN NEB dyspnea; Start at 17:45; Stop 09/09/17 at 12:41; Status DC Bismuth Subsalicylate (Pepto-Bismol Liq) 15 ml ONCE ONCE PO Last administered on 09/08/17at 12:16; Start 09/08/17 at 11:15; Stop 09/08/17 at 11:18; Status DC Temazepam (Restoril) 15 mg HS PRN PO insomnia; Start 09/08/17 at 11:15; Stop at 14:11; Status DC Temazepam (Restoril) 30 mg HS PRN PO insomnia Last administered on 09/12/17at 21 :33; Start 09/08/17 at 21:00; Stop 09/13/17 at 15:22; Status DC Clotrimazole (Mycelex) 10 mg 5 TIMES A DAY BUCCAL Last administered on at 13:55; Start 09/08/17 at 18:00 Padimate O ([place]) 1 applic ONCE ONCE TOPICAL Last administered on at 17:48; Start 09/08/17 at 14:15; Stop 09/08/17 at 14:17; Status DC Sodium Chloride ([place]) 2 spray Q4H PRN EACH NARE NASAL CONGESTION Last administered on 09/11/17at 08:55; Start 09/08/17 at 14:15 Magnesium Sulfate/ Dextrose 100 ml @ 100 mls/hr ONCE ONCE IV Last administered on 09/08/17at 22:54; Start 09/08/17 at 20:30; Stop 09/08/17 at 21:29 ; Status DC Fluconazole (Diflucan) 800 mg DAILY PO Last administered on 09/15/17at 08:41; Start 09/09/17 at 10:00; Stop 10/05/17 at 09:59 Ipratropium [place] (Atrovent Neb) 0.5 mg Q4HR NEB PRN NEB dyspnea Last administered on 09/12/17at 21:01; Start 09/09/17 at 12:45 Glycerin (Glycerin Top Soln) 10 ml DAILY TOPICAL ; Start 09/10/17 at 09:00; Stop 09/10/17 at 09:00; Status DC Glycerin (Glycerin Top Soln) 10 ml ONCE ONCE TOPICAL ; Start 09/09/17 at 14:00 ; Stop 09/09/17 at 14:15; Status DC Prednisone (Deltasone) 5 mg DAILY PO Last administered on 09/14/17at 08:29; Start 09/10/17 at 09:00; Stop 09/15/17 at 08:59; Status DC Furosemide (Lasix Inj) 20 mg ONCE ONCE IV PUSH Last administered on 09/09/17at 15:22; Start 09/09/17 at 14:15; Stop 09/09/17 at 14:16; Status DC Lidocaine HCl (Xylocaine 2% Jelly) 5 ml ONCE ONCE TOPICAL ; Start 09/09/17 at 16:15; Stop 09/09/17 at 16:16; Status DC Ipratropium [place] (Atrovent Neb) 0.5 mg Q6HR NEB NEB Last administered on at 09:31; Start 09/10/17 at 16:00 Loperamide HCl (Imodium) 2 mg Q4H PRN PO diarrhea Last administered on at 04:34; Start 09/10/17 at 15:00 Potassium Chloride (KCl) 30 meq ONCE ONCE PO Last administered on 09/10/17at 17 :43; Start 09/10/17 at 15:00; Stop 09/10/17 at 15:07; Status DC Guaifenesin (Mucinex Er) 600 mg BID PO Last administered on 09/15/17at 08:41; Start 09/10/17 at 21:00 Insulin Aspart (NovoLOG SUPPLEMENTAL SCALE) 1 Q4H SQ ; Start 09/11/17 at 12:00; Stop 09/14/17 at 16:55; Status DC Lorazepam (Ativan) 0.5 mg Q12H PRN PO anxiety Last administered on 09/13/17at 03 :31; Start 09/12/17 at 14:45; Stop 09/13/17 at 15:22; Status DC Lorazepam (Ativan) 0.5 mg Q6HR PRN PO anxiety Last administered on 09/15/17at 13 :55; Start 09/13/17 at 15:30 Temazepam (Restoril) 15 mg HS PRN PO insomnia Last administered on 09/13/17at 22 :18; Start 09/13/17 at 15:30 Furosemide (Lasix Inj) 20 mg BID@09,18 IV PUSH Last administered on 09/15/17at 08:43; Start 09/13/17 at 16:30 Sodium Chloride 500 ml @ 500 mls/hr BOLUS ONCE IV ; Start 09/13/17 at 23:30; Stop 09/14/17 at 00:29; Status DC A/P Assessment and Plan This is a 82-year-old female who presented respiratory failure Acute metabolic encephalopathy, improved 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 08/15: CT brain negative for acute intracranial process MRI brain: Small lacunar infarcts in left cerebellar hemisphere and right parietal lobe EEG: Severe encephalopathy Repeat EEG 08/21.- generalized slowing, no epileptiform features Continue thiamine, multivitamin and folic acid daily. Neuro is following- Dr. Danielle LP showed clear CSF, 17 WBC, TP:45.2 Generally weak - PT and OT following. PT recommending acute rehab Continue aspirin 81 mg daily with enoxaparin 100 mg IV twice daily Temazepam 30 mg at night for insomnia on Ativan as needed for anxiety. Consult psychiatrist due to anxiety. Acute respiratory failure, improving Bilateral pleural effusions -resolved Status post bilateral CT-guided thoracentesis by IR on 08/29 with drainage of 500 cc of pleural fluid on right and 300 cc from left(transudative fluid) Thoracentesis wasn't done by IR on 09/04 as pleural effusion is too small per CT images. Currently on prednisone 5 mg daily for 5 days and discontinue Repeated chest x-ray on 09/13 showed increase pleural effusion with bilateral interstitial infiltrate Symptoms are improving with Lasix. Continue to wean off of oxygen. Recommend BiPAP as needed. Strict ins and outs. Continue to monitor creatinine. 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 Digoxin level 1.2 on 09/08 Clonidine0.2mg Q8 for blood pressure Repeat Echo showed EF 45-50%, Lateral leaflet mitral valve with a 2 mm mobile density, consistent with ? endocarditis Cardiology following, Dr. Myers. FERNANDO on hold for now given resp status unless recurrent blood culture positivity. Continue aspirin 81 mg by mouth daily/home medication Acute kidney injury, resolved Lactic acidemia, resolved Rhabdomyolysis resolved Right-sided nephrolithiasis/nonobstructing Left renal cyst Monitor renal function, intake and output and avoid nephrotoxins. Renal has followed-Dr. Figueroa, US abdomen: No hydronephrosis CT Abd/pelvis revealed nonobstructing right-sided nephrolithiasis and left renal cyst. Continue straight cath. As needed. Ischemic colitis, resolved Severe acute on Chronic protein energy malnutrition AST elevation secondary to alcohol use Internal and external hemorrhoids Speech eval. Ensure with each meal. Dobbhoff just removed accidentally. She was on Glucerna 1.5 at 20 cc an hour advance to 45ml/hr as ligia. Will try to encourage oral intake and see how she does without TFs. On Magic mouthwash secondary to burning sensation and sore throat. F/u stool C diff ordered 09/05 per ID negative On famotidine 20 mg twice a day for GI prophylaxis. US liver: No abnormalities identified GI has followed- colonoscopy showed diffuse colitis in the sigmoid colon and descending colon; Necrotic, dusky appearing mucosa. Consistent with severe ischemic colitis. General surgery, Dr. Guadalupe -plan to treat conservatively unless patient worsens clinically. Repeat CT abdomen and pelvis 08/23 mild diffuse colitis Reconsult GI for odynophagia. Patient refused EGD Septic shock resolved UTI Ischemic colitis Fungemia - Felipa parapsilosis Possible endocarditis Abx per ID -Continue fluconazole 800 mg IV daily , Monitor for signs of infections ( Fever, WBC). Seen by Opth no evidence of endophthalmitis Pertinent cultures 08/29 pleural fluid culture NGTD. 08/26 and 08/29 blood cultures Negative 08/23 - blood culture by line (actually peripheral) - Staph hominus 08/21 - blood culture - no growth 08/21 - sputum - no growth 08/21 - - no growth 08/21 - blood culture - Felipa parapsilosis 08/15 - CSF - negative 08/15 - sputum - no growth 08/14 - blood cultures 2 and UA - no growth C-diff PCR is negative, stool studies negative s/p LP showed clear CSF, 17 WBC, TP:45.2, HSV DNA PCR neg Leukocytosis Normocytic anemia B/L UE DVT Possible left common femoral vein DVT Left cephalic/basilic superficial and right superficial cephalic thrombus Monitor CBC, coags- heparin drip stopped on 08/30 and started on Enoxaparin 100 mg subcutaneously daily for full anticoagulation. Iron sulfate 300 mg twice a day. 1 unit PRBCs ordered to be transfused on 08/29 GI prophylaxis with famotidine and DVT prophylaxis with SCDs, Enoxaparin 100mg subcut daily Discharge Planning Respiratory status has improved drastically. Due to multiple comorbidities and patient's hospital course will remain in [facility] for 1 more day and if she continues to do well she can be transferred out to [facility]. Susanna Martínez MD Sep 15, 2017 14:22
[2017-09-15] MEDS: ACETAMINOPHEN 650 MG/20.3 ML UDC NG PRN (23:42)
[2017-09-16] VITALS (14 sets, daily range): BP systolic 94–132; BP diastolic 61–76; PULSE 80–138; RESP 18–30; TEMP 98.1–99.1; O2SAT 87–97
[2017-09-16] MEDS: LORazepam 0.5 MG TAB PO PRN ×3 (00:55→15:22)
[2017-09-16] MEDS: RESP: IPRATROPIUM 0.5 MG/2.5 ML NEB NEB SCH ×4 (02:58→19:16)
[2017-09-16] MEDS: TEMAZEPAM 15 MG CAP PO PRN (03:58)
[2017-09-16] MEDS: DILTIAZEM HCL 90 MG TAB PO SCH ×3 (06:00→18:52)
[2017-09-16] MEDS: CLOTRIMAZOLE 10 MG TROCHE BUCCAL SCH ×5 (06:24→22:03)
[2017-09-16] MEDS: NYSTAT/DIPHENHY/LIDO MOUTHWASH (Adult) 120ML SWISH-SWAL SCH ×4 (08:00→21:00)
[2017-09-16] MEDS: cloNIDine HCL 0.2 MG TAB PO SCH ×4 (08:00→16:00)
[2017-09-16] MEDS: FERROUS SULFATE 300 MG /5ML UDC PO SCH ×2 (08:26→21:59)
[2017-09-16] MEDS: THIAMINE HCL 100 MG TAB PO SCH (08:26)
[2017-09-16] MEDS: DIGOXIN SOLUTION 0.125 MG/2.5 ML CUP PO SCH (08:27)
[2017-09-16] MEDS: FAMOTIDINE 20 MG TAB NG SCH ×2 (08:27→22:00)
[2017-09-16] MEDS: ASPIRIN 81 MG CHEW TAB OG-TUBE SCH (08:27)
[2017-09-16] MEDS: guaiFENesin E.R. 600 MG TAB PO SCH ×2 (08:27→22:00)
[2017-09-16] MEDS: SODIUM CHLORIDE 0.9% FLUSH 10 ML FLUSH IV FLUSH SCH ×3 (08:28→22:00)
[2017-09-16] MEDS: FOLIC ACID 1 MG TAB PO SCH (08:29)
[2017-09-16] MEDS: FLUCONAZOLE 200 MG TAB PO SCH (08:29)
[2017-09-16] MEDS: FUROSEMIDE 20 MG/2 ML VIAL IV PUSH SCH ×2 (08:29→18:51)
[2017-09-16] MEDS: MULTIVITAMIN TAB PO SCH (08:30)
[2017-09-16] MEDS: METOPROLOL TARTRATE 50 MG TAB PO SCH ×2 (08:43→22:00)
--- NOTE | 2017-09-16 12:01 | PD.PSY.CON ---
Provisional Diagnosis Admission Date Aug 15, 2017 at 01:31 Rachel I. Delirium due to multiple etiologies Rachel II. Deferred History of Present Illness Service Psychiatry Consult Requested By Critical Care Reason for Consult Agitation Primary Care Physician Unknown HPI The patient is a 82-year-old woman, domiciled in [place] with her daughter, retired, , without no previous psychiatric history, no previous psychiatric hospitalizations, no previous suicide attempts, alcohol use disorder, who presented initially with respiratory failure. 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 Consulted to psychiatry due to agitation and aggressive behavior in the unit. Chart was reviewed. Case was discussed with staff, collateral information from her daughter Katherine Olson was obtained. On psychiatric evaluation today the patient is sedated after being given Ativan, but she is able to participate in the evaluation. She reports feeling fine. She described her mood as okay. The patient is fully oriented 3, she actually tells me that she is looking forward to be moved to physical rehabilitation today. She denies suicidal or homicidal ideation, she denies visual and auditory hallucinations. No loosening of associations, no bizarre behavior, no agitation, no aggressiveness, no ideas of reference, no delusions or paranoia present at this moment. Her daughter reports that the patient is at baseline at this moment, but she has been episodically agitated last days. She describes her mother is a very independent and sharp person. When the patient is at baseline she is able to drive, to take care of herself, she does not have any memory problems, never been diagnosed with any psychiatric condition in the past. She does report that the patient abuses alcohol, but no illegal drugs. Review of Systems Constitutional: DENIES: Diaphoretic episodes, Fatigue, Fever, Weight gain, Weight loss, Chills, Dizziness, Change in appetite, Night Sweats Endocrine: DENIES: Abnorml menstrual pattern, Heat/cold intolerance, Polydipsia , Polyuria, Polyphagia Eyes: DENIES: Blurred vision, Diplopia, Eye inflammation, Eye pain, Vision loss , Photosensitivity, Double Vision Ears, nose, mouth, throat: DENIES: Tinnitus, Hearing loss, Vertigo, Nasal discharge, Oral lesions, Throat pain, Hoarseness, Ear Pain, Running Nose, Epistaxis, Sinus Pain, Toothache, Odynophagia Respiratory: COMPLAINS OF: Cough, Wheezing, DENIES: Apneas, Snoring, Hemoptysis , Sputum production, Shortness of breath Cardiovascular: DENIES: Chest pain, Palpitations, Syncope, Dyspnea on Exertion , PND, Lower Extremity Edema, Orthopnea, Claudication Gastrointestinal: DENIES: Abdominal pain, Black stools, Bloody stools, Constipation, Diarrhea, Nausea, Vomiting, Difficulty Swallowing, Anorexia Genitourinary: DENIES: Abnormal vaginal bleeding, Dysmenorrhea, Dyspareunia, Sexual dysfunction, Urinary frequency, Urinary incontinence, Urgency, Hematuria , Dysuria, Nocturia, Vaginal discharge Musculoskeletal: DENIES: Joint pain, Muscle aches, Stiffness, Joint Swelling, Back pain, Neck pain Integumentary: DENIES: Abnormal pigmentation, Pruritus, Rash, Nail changes, Breast masses, Breast skin changes, Nipple discharge Hematologic/lymphatic: DENIES: Bruising, Lymphadenopathy Immunologic/allergic: DENIES: Eczema, Urticaria Neurologic: DENIES: Abnormal gait, Headache, Localized weakness, Paresthesias, Seizures, Speech Problems, Tremor, Poor Balance Psychiatric: DENIES: Anxiety, Confusion, Mood changes, Depression, Hallucinations, Agitation, Suicidal Ideation, Homicidal Ideation, Delusions Past Family Social History Coded Allergies: No Known Allergies (Verified Allergy, Unknown, 08/15/17) Reported Medications Ferrous Sulfate (Ferrous Sulfate) 325 Mg Tab, 325 MG PO BIDPC 08/22/09 Chlordiazepoxide Hcl (Librium) 25 Mg Cap, 25 MG PO TID, #15 08/22/09 Aspirin (Aspirin) 81 Mg Tab, 81 MG PO DAILY 08/19/09 Lisinopril (Prinivil) 20 Mg Tab, 20 DAILY 08/22/09 Current Medications Medications (Trade) Dose Ordered Sig/La Route Start Time Stop Time Status Last Admin (NS Flush) 2 ml UNSCH PRN IV FLUSH 08/15/17 02:00 09/12/17 08:09 (NS Flush) 2 ml BID IV FLUSH 08/15/17 09:00 09/16/17 08:28 (Narcan Inj) 0.4 mg UNSCH PRN IV PUSH 08/15/17 02:00 Miscellaneous Information Patient in critical care unit? Ass... Q361D .XX 08/15/17 06:15 08/15/17 06:15 (Vitamin B1) 100 mg DAILY PO 08/15/17 12:00 09/16/17 08:26 (Theragran) 1 tab DAILY PO 08/15/17 12:00 09/16/17 08:30 (Folate) 1 mg DAILY PO 08/15/17 12:00 09/16/17 08:29 (Aspirin Chew) 81 mg DAILY OG-TUBE 08/15/17 19:00 09/16/17 08:27 (Trandate Inj) 20 mg Q4H PRN IV PUSH 08/21/17 17:15 08/21/17 21:51 (Tylenol 650 Mg/ 20 ml Liq) 650 mg Q6H PRN NG 08/24/17 13:00 09/15/17 23:42 (Lanoxin Liq) 0.125 mg DAILY PO 08/25/17 09:00 09/16/17 08:27 (Ferrous Sulfate Liq) 300 mg BID PO 08/24/17 21:00 09/16/17 08:26 (NS Flush) DAILY IV FLUSH 08/25/17 09:00 09/16/17 08:29 (NS Flush) UNSCH PRN IV FLUSH 08/24/17 17:45 09/04/17 07:49 Miscellaneous Information D/C ICU ELECTROLYTE ORDERS... UNSCH PRN .XX 08/25/17 15:00 Miscellaneous Information ICU - CALL ORDERING PHYSIC... UNSCH PRN .XX 08/25/17 15:00 Potassium Chloride 100 ml @ 25 mls/hr UNSCH PRN IV 08/25/17 15:00 08/29/17 16:51 (K-Lyte Cl Eff) 50 meq UNSCH PRN PO 08/25/17 15:00 Potassium Chloride 100 ml @ 50 mls/hr UNSCH PRN IV 08/25/17 15:00 09/01/17 20:35 Magnesium Sulfate 4 gm/Sodium Chloride 108 ml @ 54 mls/hr UNSCH PRN IV 08/25/17 15:00 Magnesium Sulfate 2 gm/Sodium Chloride 104 ml @ 52 mls/hr UNSCH PRN IV 08/25/17 15:00 (Mag-Ox) 800 mg UNSCH PRN PO 08/25/17 15:00 Sodium Phosphate 30 mmol/Sodium Chloride 260 ml @ 43.333 mls/ hr UNSCH PRN IV 08/25/17 15:00 (K-Phos) 2,000 mg UNSCH PRN PO 08/25/17 15:00 09/11/17 16:49 Potassium Phosphate 30 mmol/ Sodium Chloride 260 ml @ 43.333 mls/ hr UNSCH PRN IV 08/25/17 15:00 09/02/17 08:07 (Roxicodone) 5 mg Q6H PRN PO 08/27/17 13:00 09/15/17 15:51 (Morphine Inj) 1 mg Q4H PRN IV 08/27/17 11:00 09/15/17 04:59 (Lovenox Inj) 100 mg Q24H SQ 08/30/17 15:00 09/15/17 13:55 (Pill Splitter) 1 ea UNSCH PRN OTHER 08/30/17 13:00 09/01/17 09:12 (Lopressor) 50 mg Q12HR PO 09/03/17 09:00 09/16/17 08:43 (Catapres) 0.2 mg Q8H PO 09/04/17 08:00 09/15/17 15:51 (Magic Mouthwash Adult Liq) 5 ml ACHS SWISH-SWAL 09/05/17 12:00 09/15/17 17:21 (Cardizem) 90 mg Q6HR PO 09/05/17 12:00 09/16/17 10:41 (Pepcid) 20 mg BID NG 09/06/17 21:00 09/16/17 08:27 (Mycelex) 10 mg 5 TIMES A DAY BUCCAL 09/08/17 18:00 09/16/17 08:43 ([place]) 2 spray Q4H PRN EACH NARE 09/08/17 14:15 09/11/17 08:55 (Diflucan) 800 mg DAILY PO 09/09/17 10:00 10/05/17 09:59 09/16/17 08:29 (Atrovent Neb) 0.5 mg Q4HR NEB PRN NEB 09/09/17 12:45 09/12/17 21:01 (Atrovent Neb) 0.5 mg Q6HR NEB NEB 3/14/18 16:00 09/16/17 09:00 (Imodium) 2 mg Q4H PRN PO 09/10/17 15:00 09/14/17 04:34 (Mucinex Er) 600 mg BID PO 09/10/17 21:00 09/16/17 08:27 (Ativan) 0.5 mg Q6HR PRN PO 09/13/17 15:30 09/16/17 08:54 (Restoril) 15 mg HS PRN PO 09/13/17 15:30 09/16/17 03:58 (Lasix Inj) 20 mg BID@18 IV PUSH 09/13/17 16:30 09/16/17 08:29 Family Psych History The patient does not have any psychiatric family history Social History The patient was born in [place], she lives in [place] with her daughter, retired, , she has 4 kids, her highest level of education is high school, Patient's Strengths (min. 2) Family support Physical Exam Vital Signs Vital Signs Date Time Temp Pulse Resp B/P (MAP) Pulse Ox O2 Delivery O2 Flow Rate FiO2 09/16/17 10:00 123 09/16/17 09:00 94 Nasal Cannula 5.00 09/16/17 08:00 98.7 18 109/68 (82) 09/15/17 16:00 30 I/O 09/16/17 09/16/17 09/17/17 08:00 16:00 00:00 Intake Total 240 ml Output Total 975 ml Balance -735 ml Lab Results Date/Time Source Procedure Growth Status 08/29/17 17:23 Blood Peripheral Aerobic Blood Culture - Final NO GROWTH IN 5 DAYS Complete 08/29/17 17:23 Blood Peripheral Anaerobic Blood Culture - Final NO GROWTH IN 5 DAYS Complete 08/29/17 15:00 Fluid Pleural Fluid Fungal Smear - Final NO FUNGAL ELEMENTS SEEN. Resulted 08/29/17 15:00 Fluid Pleural Fluid Fungal Culture - Preliminary NO GROWTH IN 2 WEEKS Resulted 08/15/17 02:28 Stool Stool Stool Occult Blood (MARCIA) - Final HEMOCCULT NEGATIVE Complete 08/21/17 15:20 Sputum Endotracheal Gram Stain - Final Complete 08/21/17 15:20 Sputum Endotracheal Sputum Culture - Final NO GROWTH IN 48 HOURS. Complete 08/21/17 13:45 Urine Catheterized Urine Urine Culture - Final NO GROWTH IN 48 HOURS. Complete Mental Status Examination Appearance: Appropriate Consciousness: Alert Orientation: x4 Motor Activity: Normal gait Speech: Unremarkable Language: Adequate Fund of Knowledge: Adequate Attention and Concentration: Adequate Memory: Unremarkable Mood: Good Affect: Other (Restricted) Thought Process & Associations: Intact Thought Content: Appropriate Hallucination Type: None Delusion Type: None Suicidal Ideation: No Suicidal Plan: No Suicidal Intention: No Homicidal Ideation: No Homicidal Plan: No Homicidal Intention: No Insight: Adequate Judgment: Adequate Assessment & Plan Problem List: (1) Acute renal failure ICD Codes: N17.9 - Acute kidney failure, unspecified (2) Septic shock ICD Codes: A41.9 - Sepsis, unspecified organism; R65.21 - Severe sepsis with septic shock (3) Acute respiratory failure ICD Codes: J96.00 - Acute respiratory failure, unspecified whether with hypoxia or hypercapnia (4) Delirium due to another medical condition ICD Codes: F05 - Delirium due to known physiological condition Assessment & Plan: On psychiatric evaluation today the patient is kind of sedated due to her recent dose of Ativan. However, the patient is cooperative, she denies depressive symptoms, she denies anxiety, she denies manic, denies psychosis. The patient denies suicidal or homicidal ideation, she denies visual and auditory hallucinations. She is logical, coherent, relevant. Oriented 3. As per daughter, who is a bedside, patient is right now at baseline. The patient does not have any previous psychiatric history, no reported memory problems, no previous suicide attempts, no previous psychiatric hospitalizations. Recent reported agitation, aggressiveness and disorganized behavior, but probably is a result of delirium due to multiple etiologies including sepsis, UTI, respiratory failure. Patient has an increased risk present neuropsychiatric symptoms related with delirium including agitation and aggressiveness, my recommendation would be to treat the symptoms with Haldol 1- 2 mg IM as needed. Patient can also benefit of a low dose of antipsychotic, for example Seroquel 12.5 mg twice daily to prevent these episodes. Make sure there is QTc interval is less than 460 before applying these medications. Familiar faces around the bed, appropriate lights in the unit, sensory stimulation, frequent reorientation are usually measures to help to prevent delirium and also. The patient does not meet criteria for psychiatric admission at this moment. Assessment & Plan Estimated LOS: Sebastián Miller MD Sep 16, 2017 12:01
--- NOTE | 2017-09-16 14:25 | HHI.HCPN ---
Reason for visit a. To assist with evaluation and management of symptoms including: dyspnea, weakness, pain, anxiety. b. To assist medical decision maker(s) with: better understanding of current medical conditions; weighing benefits/burdens of medical treatment options; making medical treatment decisions. . Subjective/Interval History Patient seen and examined in ICU. No family at bedside. Family has previously declined PEG tube as she was concerned about the risks of anesthesia and procedures in her mother. Patient is lethargic, awakens only briefly. She nods no to pain and anxiety. She nods yes to Lorazepam being effective in controlling anxiety, has had 3 doses in the past 24 hours. She then falls off to sleep. Discussed with nurse, Zeke. He reports patient becomes tachycardic with minimal movement. Intermittent hypotension, 94/67 during visit. Remains on oxygen via NC, 6 LPM. Dobbhoff was accidentally pulled out since my visit . CM notes indicate [place] approval pending insurance authorization. Clinical data: * Laboratory: no new labs today. * No new imaging. * Speech therapy came to see patient she was sleeping, plan to reattempt. Psychiatry, Dr. Bass saw patient who feels patient is capacitated. He made recommendations to manage any agitation with Haldol 1-2mg IM PRN and possible Seroquel 12.5mg every 12 hours if QTc less than 460. This is a elderly, frail, weak appearing female lying in bed in no acute distress. She doses off and on through the conversation. She falls asleep during my visit. Advised patient that she will be moved to medical floor later today and that will continue to follow during her visit. . Family/friend interactions No family present during my visit, they have all been provided my cell number. . Advance Directives Living Will: Never completed Health Care Surrogate: Never completed Durable Power of Hat Former: Never completed Advance Directive Specifics Health Care Surrogate(s): Living Will copy obtained. According to her Living Will she names daughterSilvia as primary HCS and son Jl Olson as alternate HCS. . Documented care wishes: Standard Living Will on chart. . Significant change in goals: FULL CODE. Goals remain aggressive. Family and patient hope she will be able to go to [place] for rehab in the coming days. . Objective Vital Signs Date Time Temp Pulse Resp B/P (MAP) Pulse Ox O2 Delivery O2 Flow Rate FiO2 09/16/17 12:36 98.3 80 18 94/67 (76) 91 09/16/17 12:00 98.6 125 20 114/61 (78) 89 09/16/17 12:00 89 Nasal Cannula 6.00 09/16/17 12:00 80 09/16/17 10:00 123 09/16/17 09:00 94 Nasal Cannula 5.00 09/16/17 08:00 98.7 117 18 109/68 (82) 91 09/16/17 08:00 117 09/16/17 08:00 94 Nasal Cannula 6.00 09/16/17 06:00 106 09/16/17 04:00 110 09/16/17 04:00 91 Nasal Cannula 6.00 09/16/17 04:00 98.4 110 110/62 (78) 91 09/16/17 02:00 102 09/16/17 00:00 121 09/16/17 00:00 99.1 121 111/63 (79) 93 09/16/17 00:00 93 Nasal Cannula 6.00 09/15/17 22:00 107 09/15/17 21:46 96 Nasal Cannula 5.00 09/15/17 20:00 98.9 96 103/59 (74) 99 09/15/17 20:00 96 09/15/17 20:00 99 Nasal Cannula 6.00 09/15/17 18:00 105 09/15/17 16:33 96 Nasal Cannula 5.00 09/15/17 16:00 108 09/15/17 16:00 108 100/71 (81) 96 09/15/17 16:00 96 Nasal Cannula 6.00 30 09/15/17 15:00 103 09/15/17 15:00 103 102/59 (73) 94 09/15/17 14:30 97 108/52 (70) 83 09/15/17 14:30 97 09/15/17 14:00 91 09/15/17 14:00 91 89/51 (64) 88 Intake & Output 09/16/17 09/16/17 07:00 19:00 Intake Total 240 ml Output Total 975 ml 1000 ml Balance -735 ml -1000 ml Intake Oral 240 ml Output Urine Total 975 ml 1000 ml # Bowel Movements 0 Physical Exam CONSTITUTIONAL/GENERAL: This is a frail, elderly, pale female, lying in bed. Falls off to sleep during visit. TUBES/LINES/DRAINS: NC, PIV, catheter, SCDs. SKIN: No jaundice, rashes, or lesions. Ecchymoses on upper extremities. Skin temperature appropriate. Not diaphoretic. Tongue with dried blood noted. CARDIOVASCULAR: Irregularly irregular. A. Fib on monitor. RESPIRATORY/CHEST: Mildly labored respirations in NC. Diminished bilateral bases. scattered rhonchi. GASTROINTESTINAL: Abdomen soft, non distended. + bowel sounds. Dobbhoff tube to the right nare infusing Glucerna at 40 mL an hour. GENITOURINARY: Without palpable bladder distension. Catheter in place. MUSCULOSKELETAL: Extremities with edema. Generalized weakness. moves all extremities. NEUROLOGICAL: Lethargic and dosing, soft voice improving, follows commands, answers questions appropriately. PSYCHIATRIC: denies anxiety during my visit, relief with Lorazepam. . Diagnostic Tests Laboratory Laboratory Tests Test 09/14/17 16:33 09/15/17 06:03 White Blood Count 4.4 TH/MM3 (4.0-11.0) Red Blood Count 2.62 MIL/MM3 (4.00-5.30) Hemoglobin 8.4 GM/DL (11.6-15.3) Hematocrit 25.6 % (35.0-46.0) Mean Corpuscular Volume 97.6 FL (80.0-100.0) Mean Corpuscular Hemoglobin 32.1 PG (27.0-34.0) Mean Corpuscular Hemoglobin Concent 32.9 % (32.0-36.0) Red Cell Distribution Width 18.2 % (11.6-17.2) Platelet Count 203 TH/MM3 (150-450) Mean Platelet Volume 7.5 FL (7.0-11.0) Blood Urea Nitrogen 19 MG/DL (7-18) 14 MG/DL (7-18) Creatinine 0.47 MG/DL (0.50-1.00) 0.38 MG/DL (0.50-1.00) Random Glucose 101 MG/DL (74-106) 88 MG/DL (74-106) Calcium Level 8.4 MG/DL (8.5-10.1) 8.0 MG/DL (8.5-10.1) Magnesium Level 1.9 MG/DL (1.5-2.5) 1.9 MG/DL (1.5-2.5) Sodium Level 136 MEQ/L (136-145) 138 MEQ/L (136-145) Potassium Level 4.4 MEQ/L (3.5-5.1) 4.0 MEQ/L (3.5-5.1) Chloride Level 100 MEQ/L (98-107) 99 MEQ/L (98-107) Carbon Dioxide Level 28.0 MEQ/L (21.0-32.0) 29.7 MEQ/L (21.0-32.0) Anion Gap 8 MEQ/L (5-15) 9 MEQ/L (5-15) Estimat Glomerular Filtration Rate 127 ML/MIN (>89) 162 ML/MIN (>89) Result Diagram: 09/14/17 1633 09/15/17 0603 Microbiology Microbiology Date/Time Source Procedure Growth Status 08/29/17 17:23 Blood Peripheral Aerobic Blood Culture - Final NO GROWTH IN 5 DAYS Complete 08/29/17 17:23 Blood Peripheral Anaerobic Blood Culture - Final NO GROWTH IN 5 DAYS Complete 08/29/17 15:00 Fluid Pleural Fluid Fungal Smear - Final NO FUNGAL ELEMENTS SEEN. Resulted 08/29/17 15:00 Fluid Pleural Fluid Fungal Culture - Preliminary NO GROWTH IN 2 WEEKS Resulted 08/15/17 02:28 Stool Stool Stool Occult Blood (MARCIA) - Final HEMOCCULT NEGATIVE Complete 08/21/17 15:20 Sputum Endotracheal Gram Stain - Final Complete 08/21/17 15:20 Sputum Endotracheal Sputum Culture - Final NO GROWTH IN 48 HOURS. Complete 08/21/17 13:45 Urine Catheterized Urine Urine Culture - Final NO GROWTH IN 48 HOURS. Complete . Imaging Last Impressions Chest X-Ray 09/13/17 0000 Signed Impressions: Service Date/Time: Wednesday, September 13, 2017 15:27 - CONCLUSION: 1. Bilateral effusions and diffuse bilateral infiltrates suggesting interstitial edema. The heart is mildly enlarged. There is consolidation of the left lower lobe. Appearance of the parenchyma similar to previous dated 09/11/17. Erik Joel MD Abdomen X-Ray 09/09/17 0000 Signed Impressions: Service Date/Time: Saturday, September 09, 2017 18:20 - CONCLUSION: Dobbhoff feeding tube is in the proximal duodenum. Adan Nunes MD Thoracentesis 09/04/17 0000 Signed Impressions: Service Date/Time: August 15:12 - CONCLUSION: 1. Small bilateral pleural effusions with concomitant atelectatic changes. 2. Fluid collections are too small to safely drain percutaneously with CT. Shashi Moreno MD Chest Ultrasound 09/04/17 0000 Signed Impressions: Service Date/Time: August 09:23 - CONCLUSION: Right pleural effusion as above. Shashi Moreno MD Chest CT 08/29/17 0000 Signed Impressions: Service Date/Time: Tuesday, August 29, 2017 14:48 - CONCLUSION: Following thoracentesis there is decreasing amount of effusion. Significant consolidation persists. There is no pneumothorax. Juan J Joel MD FACR Abdomen/Pelvis CT 08/23/17 1426 Signed Impressions: Service Date/Time: Wednesday, August 23, 2017 22:50 - CONCLUSION: 1. Suspected mild diffuse colitis, nonspecific but presumably infectious or inflammatory. No obstruction or abscess. 2. Trace ascites about the same there is worsening anasarca and worsening pleural effusions and consolidation of both lung bases. 3. Tiny nonobstructing stone of the right kidney and a generally benign appearing cyst lower pole the left kidney. No evidence of obstructive uropathy or other etiology for acute renal failure. 4. Atherosclerotic aorta. No aneurysm. Adan Nunes MD Upper Extremity Ultrasound 08/23/17 0000 Signed Impressions: Service Date/Time: Wednesday, August 23, 2017 16:25 - CONCLUSION: Bilateral upper extremity DVT as described above. Samuel Peralta MD Lower Extremity Ultrasound 08/23/17 0000 Signed Impressions: Service Date/Time: Wednesday, August 23, 2017 15:50 - CONCLUSION: 1. There is incomplete compression of the left common femoral vein raising suspicion for nonocclusive thrombus. This vessel, however, still demonstrates normal Doppler blood flow and respiratory variability. 2. The remaining veins of the left lower extremity are patent and the entire right lower extremity is patent without thrombus. Adan Machuca MD Lumbar Puncture Fluoroscopy 08/15/17 0000 Signed Impressions: Service Date/Time: Tuesday, August 15, 2017 15:36 - CONCLUSION: 1. Uncomplicated fluoroscopically guided lumbar puncture. 2. Please note, requested opening pressures were not obtained due to technical difficulties. Shashi Moreno MD Brain MRI 08/15/17 0000 Signed Impressions: Service Date/Time: Tuesday, August 15, 2017 16:57 - CONCLUSION: 1. 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 2. Mild stenosis in the upper cervical spine as above. Esau Martell MD Abdomen Ultrasound 08/15/17 0000 Signed Impressions: Service Date/Time: Tuesday, August 15, 2017 10:40 - CONCLUSION: 1. No abnormality is identified to explain the clinical symptoms. There is no hydronephrosis. 2. The liver is normal in size and echotexture. Adan Machuca MD Head CT 08/14/172231 Signed Impressions: Service Date/Time: July 22:54 - CONCLUSION: Unremarkable study. Josseline Villagomez MD . Procedures * 08/25/17 - extubated. * 08/15/17-lumbar puncture by IR * 08/15/17 - right IJ central line, intubated. . Assessment and Plan Disease Oriented Problem List: (1) Acute respiratory failure Comment: now on NC (2) Tachycardia (3) Alcohol abuse (4) Atrial fibrillation Symptom Scale: (1) Pain 0-10 Scale: 0 (2) Dyspnea 0-10 Scale: 0 (3) Weakness 0-10 Scale: 0 Comment: continue PT/ OT Pertinent Non-Medical Issues Psychosocial: . Lives with Nicole flores. Has 3 daughters and 1 son. Spiritual: Catholic david. Legal: According to her Living Will she names daughter, Silvia Carvajal as primary HCS and son Jl Olson as alternate HCS. Ethical issues impacting care: No known concerns at this time. . Important Contacts * Silvia "Nicole" Toby, daughter/ HCS: [phone] * Jl Olson, son/ alternate HCS: or [phone] * Jessica, daughter: [phone] * Chelsea, daughter: [phone] . Prognosis Ms. Olson is an 82 year old admitted with rhabdomyolysis, septic shock uncertain etiology, dehydration, renal failure. At this point we will need additional information to determine overall prognosis. Given her advanced age, she remain high risk for further setbacks or decline. . Code Status: Full Code Plan * Patient appears to have some insight and judgment regarding her current health condition, recommend shared medical decision making as her mentation seems to wax and wane. According to her Living Will she names daughterSilvia as primary HCS and son Jl Olson as alternate HCS. * FULL CODE. * Goals remain aggressive. Patient/ family hopes for continued aggressive care in hopes she will be able to go to rehab ([facility]) and then DC home. Family previously declined PEG tube. * SYMPTOMS: Dyspnea: Medically extubated 08/25/17 am. Denies SOB on NC. Pain: potential sources include intubation, chronic neck pain, infection, etc. complaining of severe mouth pain with eating. Previously on Magic mouthwash which was discontinued, now on Diflucan and Mycelex troches. Dobbhoff tube inserted for bypass nutrition. Has PRN Oxycodone, none given. PRN Morphine 1mg IV available, last dose 09/15/2017 at 4:59. Anxiety: PRN Lorazepam, 3 doses in the past 24 hours. Weakness: Continue PT/OT. Decreased appetite: Dobbhoff accidentally pulled out 09/16/17. * Palliative care will continue to throughout hospital course to assist with clarification of goals. . Attestation To help prompt me to consider important information that might be impacting today's encounter and assessment, information from prior notes written by myself or my colleagues may have been "brought forward" into today's note. My signature on this note, however, is an attestation that I personally performed the exam, history, and/or decision-making noted today, and, unless otherwise indicated, the interactions with patient, family, and staff as well as the review of records all occurred today. I also attest that the listed assessment and stated plan reflect my best clinical judgment today based on the combination of historical information, prior notes, and today's exam/ interactions. When time spent is documented, it refers only to time spent today by the signer, or if indicated, combined time spent today by collaborating physician/nurse practitioner. . Vashti Riley Sep 16, 2017 14:25
[2017-09-16] MEDS: ENOXAPARIN SODIUM 100 MG/ML SYRINGE SQ SCH (15:23)
--- NOTE | 2017-09-16 16:41 | HHI.PR ---
Subjective Remarks seen with daughter at bedside- very involved with care tolerating full liquids telemetry- a fib- rate in the 90s Objective Vitals Vital Signs Date Time Temp Pulse Resp B/P (MAP) Pulse Ox O2 Delivery O2 Flow Rate FiO2 09/16/17 12:36 98.3 80 18 94/67 (76) 91 09/16/17 12:00 98.6 125 20 114/61 (78) 89 09/16/17 12:00 89 Nasal Cannula 6.00 09/16/17 12:00 80 09/16/17 10:00 123 09/16/17 09:00 94 Nasal Cannula 5.00 09/16/17 08:00 98.7 117 18 109/68 (82) 91 09/16/17 08:00 117 09/16/17 08:00 94 Nasal Cannula 6.00 09/16/17 06:00 106 09/16/17 04:00 110 09/16/17 04:00 91 Nasal Cannula 6.00 09/16/17 04:00 98.4 110 110/62 (78) 91 09/16/17 02:00 102 09/16/17 00:00 121 09/16/17 00:00 99.1 121 111/63 (79) 93 09/16/17 00:00 93 Nasal Cannula 6.00 09/15/17 22:00 107 09/15/17 21:46 96 Nasal Cannula 5.00 09/15/17 20:00 98.9 96 103/59 (74) 99 09/15/17 20:00 96 09/15/17 20:00 99 Nasal Cannula 6.00 09/15/17 18:00 105 I/O 09/15/17 09/15/17 09/15/17 09/16/17 09/16/17 09/16/17 07:00 15:00 23:00 07:00 15:00 23:00 Intake Total 450 ml 240 ml Output Total 1300 ml 650 ml 975 ml 1000 ml Balance -1300 ml -200 ml -735 ml -1000 ml Intake Oral 450 ml 240 ml Output Urine Total 1300 ml 650 ml 975 ml 1000 ml # Bowel Movements 2 0 Result Diagram: 09/14/17 1633 09/15/17 0603 Imaging Last Impressions Chest X-Ray 09/13/17 0000 Signed Impressions: Service Date/Time: Wednesday, September 13, 2017 15:27 - CONCLUSION: 1. Bilateral effusions and diffuse bilateral infiltrates suggesting interstitial edema. The heart is mildly enlarged. There is consolidation of the left lower lobe. Appearance of the parenchyma similar to previous dated 09/11/17. Erik Joel MD Abdomen X-Ray 09/09/17 0000 Signed Impressions: Service Date/Time: Saturday, September 09, 2017 18:20 - CONCLUSION: Dobbhoff feeding tube is in the proximal duodenum. Adan Nunes MD Thoracentesis 09/04/17 0000 Signed Impressions: Service Date/Time: August 15:12 - CONCLUSION: 1. Small bilateral pleural effusions with concomitant atelectatic changes. 2. Fluid collections are too small to safely drain percutaneously with CT. Shashi Moreno MD Chest Ultrasound 09/04/17 0000 Signed Impressions: Service Date/Time: August 09:23 - CONCLUSION: Right pleural effusion as above. Shashi Moreno MD Chest CT 08/29/17 0000 Signed Impressions: Service Date/Time: Tuesday, August 29, 2017 14:48 - CONCLUSION: Following thoracentesis there is decreasing amount of effusion. Significant consolidation persists. There is no pneumothorax. Juan J Joel MD FACR Abdomen/Pelvis CT 08/23/17 1426 Signed Impressions: Service Date/Time: Wednesday, August 23, 2017 22:50 - CONCLUSION: 1. Suspected mild diffuse colitis, nonspecific but presumably infectious or inflammatory. No obstruction or abscess. 2. Trace ascites about the same there is worsening anasarca and worsening pleural effusions and consolidation of both lung bases. 3. Tiny nonobstructing stone of the right kidney and a generally benign appearing cyst lower pole the left kidney. No evidence of obstructive uropathy or other etiology for acute renal failure. 4. Atherosclerotic aorta. No aneurysm. Adan Nunes MD Upper Extremity Ultrasound 08/23/17 0000 Signed Impressions: Service Date/Time: Wednesday, August 23, 2017 16:25 - CONCLUSION: Bilateral upper extremity DVT as described above. Samuel Peralta MD Lower Extremity Ultrasound 08/23/17 0000 Signed Impressions: Service Date/Time: Wednesday, August 23, 2017 15:50 - CONCLUSION: 1. There is incomplete compression of the left common femoral vein raising suspicion for nonocclusive thrombus. This vessel, however, still demonstrates normal Doppler blood flow and respiratory variability. 2. The remaining veins of the left lower extremity are patent and the entire right lower extremity is patent without thrombus. Adan Machuca MD Lumbar Puncture Fluoroscopy 08/15/17 0000 Signed Impressions: Service Date/Time: Tuesday, August 15, 2017 15:36 - CONCLUSION: 1. Uncomplicated fluoroscopically guided lumbar puncture. 2. Please note, requested opening pressures were not obtained due to technical difficulties. Shashi Moreno MD Brain MRI 08/15/17 0000 Signed Impressions: Service Date/Time: Tuesday, August 15, 2017 16:57 - CONCLUSION: 1. 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 2. Mild stenosis in the upper cervical spine as above. Esau Martell MD Abdomen Ultrasound 08/15/17 0000 Signed Impressions: Service Date/Time: Tuesday, August 15, 2017 10:40 - CONCLUSION: 1. No abnormality is identified to explain the clinical symptoms. There is no hydronephrosis. 2. The liver is normal in size and echotexture. Adan Machuca MD Head CT 08/14/172231 Signed Impressions: Service Date/Time: July 22:54 - CONCLUSION: Unremarkable study. 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 08/15: CT brain negative for acute intracranial process MRI brain: Small lacunar infarcts in left cerebellar hemisphere and right parietal lobe EEG: Severe encephalopathy Repeat EEG 08/21.- generalized slowing, no epileptiform features Continue thiamine, multivitamin and folic acid daily. Neuro is following- Dr. Danielle LP showed clear CSF, 17 WBC, TP:45.2 Generally weak - PT and OT following. PT recommending acute rehab Continue aspirin 81 mg daily with enoxaparin 100 mg IV twice daily Temazepam 30 mg at night for insomnia on Ativan as needed for anxiety. appreciate Dr. Kali cortez patient Acute respiratory failure, gradually improving Bilateral pleural effusions Status post bilateral CT-guided thoracentesis by IR on 08/29 with drainage of 500 cc of pleural fluid on right and 300 cc from left(transudative fluid) Thoracentesis wasn't done by IR on 09/04 as pleural effusion is too small per CT images. Currently on prednisone 5 mg daily for 5 days and discontinue Repeated chest x-ray on 09/13 showed increase pleural effusion with bilateral interstitial infiltrate Strict ins and outs. Continue to monitor creatinine. Continue on IV Lasix 20 mg q 12 Pulmonary ff Atrial fibrillation, with RVR currently rate controlled Systolic heart failure unknown if acute or chronic Elevated troponin Fluid overload Hypotension Mild moderate MR with ?mitral valve endocarditis On metoprolol tartrate 50mg Q12,, diltiazem 90 mg every 6 hours and digoxin 0.125 mg daily. Digoxin level 1.2 on 09/08 Clonidine0.2mg Q8 for blood pressure Monitor and adjust dosages if needed Repeat Echo showed EF 45-50%, Lateral leaflet mitral valve with a 2 mm mobile density, consistent with ? endocarditis Cardiology following, Dr. Myers. FERNANDO on hold for now given resp status unless recurrent blood culture positivity. Continue aspirin 81 mg by mouth daily/home medication Acute kidney injury, resolved Lactic acidemia, resolved Rhabdomyolysis resolved Right-sided nephrolithiasis/nonobstructing Left renal cyst Monitor renal function, intake and output and avoid nephrotoxins. Renal has followed-Dr. Figueroa, US abdomen: No hydronephrosis CT Abd/pelvis revealed nonobstructing right-sided nephrolithiasis and left renal cyst. randle in place- non oliguric Ischemic colitis, resolved Severe acute on Chronic protein energy malnutrition AST elevation secondary to alcohol use Internal and external hemorrhoids Speech eval. Ensure with each meal. Dobbhoff just removed accidentally. She was on Glucerna 1.5 at 20 cc an hour advance to 45ml/hr as ligia. Will try to encourage oral intake and see how she does without TFs. On Magic mouthwash secondary to burning sensation and sore throat. F/u stool C diff ordered 09/05 per ID negative On famotidine 20 mg twice a day for GI prophylaxis. US liver: No abnormalities identified GI has followed- colonoscopy showed diffuse colitis in the sigmoid colon and descending colon; Necrotic, dusky appearing mucosa. Consistent with severe ischemic colitis. General surgery, Dr. Guadalupe -plan to treat conservatively unless patient worsens clinically. Repeat CT abdomen and pelvis 08/23 mild diffuse colitis Reconsult GI for odynophagia. 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 08/26 and 08/29 blood cultures Negative 08/23 - blood culture by line (actually peripheral) - Staph hominus 08/21 - blood culture - no growth 08/21 - sputum - no growth 08/21 - - no growth 08/21 - blood culture - Felipa parapsilosis 08/15 - CSF - negative 08/15 - sputum - no growth 08/14 - blood cultures 2 and UA - no growth C-diff PCR is negative, stool studies negative s/p LP showed clear CSF, 17 WBC, TP:45.2, HSV DNA PCR neg For low grade fevers monitor clinically if temps more than 100.8 F please draw set of blood cultures and send sputum if any for culture, UA. 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 (STOP DATE: 10/05/2017) Leukocytosis Normocytic anemia B/L UE DVT Possible left common femoral vein DVT Left cephalic/basilic superficial and right superficial cephalic thrombus Monitor CBC, coags- heparin drip stopped on 08/30 and started on Enoxaparin 100 mg subcutaneously daily for full anticoagulation. Iron sulfate 300 mg twice a day. 1 unit PRBCs ordered to be transfused on 08/29 GI prophylaxis with famotidine and DVT prophylaxis with SCDs, Enoxaparin 100mg subcut daily Discharge Planning will need - hopefully [place]- awaiting authorization from Haylee Sommers MD Sep 16, 2017 16:41
[2017-09-16] MEDS ORDERED: FUROSEMIDE 40 MG/4 ML VIAL IV PUSH ONE (20:30)
--- NOTE | 2017-09-16 21:39 | RADRPT ---
EXAM DATE/TIME: 09/16/2017 20:06 [place] COMPARISON: CHEST SINGLE AP, September 13, 2017, 15:27. INDICATIONS : Shortness of breath. MEDICAL HISTORY : Hypertension. SURGICAL HISTORY : None. ENCOUNTER: Subsequent ACUITY: 1 month PAIN SCORE: Non-responsive. LOCATION: Bilateral chest FINDINGS: Diffuse bilateral airspace disease and effusions. No pneumothorax. Heart size upper limits normal. CONCLUSION: 1. Bilateral airspace disease and pleural effusions. No pneumothorax. Esau Martell MD on September 16, 2017 at 21:30 Board Certified Radiologist. This report was verified electronically.
[2017-09-17] VITALS (12 sets, daily range): BP systolic 91–108; BP diastolic 52–68; PULSE 68–141; RESP 16–20; TEMP 97.4–99.7; O2SAT 92–100
[2017-09-17] MEDS: TEMAZEPAM 15 MG CAP PO PRN ×2 (00:19→21:55)
[2017-09-17] MEDS: DILTIAZEM HCL 90 MG TAB PO SCH ×4 (00:19→17:53)
[2017-09-17] MEDS: cloNIDine HCL 0.2 MG TAB PO SCH ×3 (00:19→16:00)
[2017-09-17] MEDS: RESP: IPRATROPIUM 0.5 MG/2.5 ML NEB NEB SCH ×4 (03:08→20:32)
[2017-09-17] MEDS: CLOTRIMAZOLE 10 MG TROCHE BUCCAL SCH ×5 (06:05→21:57)
[2017-09-17] MEDS: NYSTAT/DIPHENHY/LIDO MOUTHWASH (Adult) 120ML SWISH-SWAL SCH ×4 (08:00→21:00)
[2017-09-17 08:17] LABS: BICARBONATE 33.4 MEQ/L (21.0-32.0); CREATININE 0.4 MG/DL (0.50-1.00)
[2017-09-17] MEDS: SODIUM CHLORIDE 0.9% FLUSH 10 ML FLUSH IV FLUSH SCH ×3 (09:00→21:56)
[2017-09-17] MEDS: METOPROLOL TARTRATE 50 MG TAB PO SCH ×2 (09:00→21:56)
[2017-09-17] MEDS: ASPIRIN 81 MG CHEW TAB OG-TUBE SCH (09:07)
[2017-09-17] MEDS: FERROUS SULFATE 300 MG /5ML UDC PO SCH ×2 (09:07→21:56)
[2017-09-17] MEDS: FLUCONAZOLE 200 MG TAB PO SCH (09:07)
[2017-09-17] MEDS: THIAMINE HCL 100 MG TAB PO SCH (09:07)
[2017-09-17] MEDS: FAMOTIDINE 20 MG TAB NG SCH ×2 (09:07→21:56)
[2017-09-17] MEDS: DIGOXIN SOLUTION 0.125 MG/2.5 ML CUP PO SCH (09:10)
[2017-09-17] MEDS: FUROSEMIDE 20 MG/2 ML VIAL IV PUSH SCH ×2 (09:16→17:53)
[2017-09-17] MEDS: FOLIC ACID 1 MG TAB PO SCH (09:17)
[2017-09-17] MEDS: MULTIVITAMIN TAB PO SCH (09:17)
[2017-09-17] MEDS: guaiFENesin E.R. 600 MG TAB PO SCH ×2 (09:17→21:55)
[2017-09-17] MEDS: ENOXAPARIN SODIUM 100 MG/ML SYRINGE SQ SCH (17:52)
--- NOTE | 2017-09-17 18:14 | HHI.PR ---
Subjective Remarks 82-year-old female with a series of events that led to her weakened state. Events included altered mental status, rhabdomyolysis, dehydration, non-STEMI, A. fib and now COPD. Her daughter is present at bedside and is a good historian. The main issue today has been periodic shortness of breath. Objective Vitals Vital Signs Date Time Temp Pulse Resp B/P (MAP) Pulse Ox O2 Delivery O2 Flow Rate FiO2 09/17/17 15:53 97.5 68 18 92/52 (65) 95 09/17/17 12:03 97.5 85 18 91/52 (65) 98 09/17/17 08:24 100 Nasal Cannula 6.00 09/17/17 07:34 98.2 107 18 108/68 (81) 92 09/17/17 06:06 93 Nasal Cannula 4.00 09/17/17 04:37 93 Nasal Cannula 4.00 09/17/17 04:00 97.8 108 20 99/58 (72) 94 09/17/17 02:44 94 Simple Mask 7.00 09/17/17 00:28 99.7 103 16 106/66 (79) 96 09/16/17 22:00 103 09/16/17 20:55 97 09/16/17 20:32 97 BiPAP 60 09/16/17 20:32 97 60 09/16/17 20:00 99 Bi-Pap 60 09/16/17 20:00 98.5 138 22 132/76 (94) 87 I/O 09/16/17 09/16/17 09/16/17 09/17/17 09/17/17 09/17/17 06:59 14:59 22:59 06:59 14:59 22:59 Intake Total 240 ml 480 ml 480 ml Output Total 975 ml 1000 ml 3750 ml 1150 ml Balance -735 ml -1000 ml 480 ml -3750 ml -670 ml Intake Oral 240 ml 480 ml 480 ml Output Urine Total 975 ml 1000 ml 3750 ml 1150 ml # Bowel Movements 0 Result Diagram: 09/14/17 1633 09/17/17 0794 Objective Remarks GENERAL: Thin appearing patient SKIN: Warm and dry. HEAD: Normocephalic. EYES: No scleral icterus. No injection or drainage. NECK: Supple, trachea midline. No JVD or lymphadenopathy. CARDIOVASCULAR: Irregularly irregular heart rate, approximately 90 bpm, no murmur RESPIRATORY: Breath sounds most likely clear with scant scattered wheezing GASTROINTESTINAL: Abdomen soft, non-tender, nondistended. EXTREMITIES: No cyanosis, or edema. NEUROLOGICAL: Awake, alert, and oriented x 3. Non-focal. 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 Alcoholism ST elevation on arrival Continue thiamine, multivitamin, folic acid daily Acute respiratory failure, COPD Bilateral pleural effusions Status post bilateral CT-guided thoracentesis by IR on 08/29 with drainage of 500 cc of pleural fluid on right and 300 cc from left(transudative fluid) Thoracentesis wasn't done by IR on 09/04 as pleural effusion is too small per CT images. Repeated chest x-ray on 09/13 showed increase pleural effusion with bilateral interstitial infiltrate Strict ins and outs. Continue to monitor creatinine. Continue prednisone 5 mg daily Continue on IV Lasix 20 mg q 12 Pulmonology consult Atrial fibrillation, NSTEMI, CHF On metoprolol tartrate 50mg Q12,, diltiazem 90 mg every 6 hours and digoxin 0.125 mg daily. Digoxin level 1.2 on 09/08 Clonidine 0.2mg Q8 for blood pressure Repeat Echo showed EF 45-50%, Lateral leaflet mitral valve with a 2 mm mobile density, consistent with ? endocarditis Cardiology following, Dr. Myers. FERNANDO on hold for now given resp status unless recurrent blood culture positivity. Continue aspirin 81 mg by mouth daily/home medication Right-sided nephrolithiasis/nonobstructing, Dehydration/ARF Monitor renal function, intake and output and avoid nephrotoxins. Renal has followed-Dr. Figueroa, abdomen: No hydronephrosis CT Abd/pelvis revealed nonobstructing right-sided nephrolithiasis and left renal cyst. randle in place- non oliguric Ischemic colitis Now resolved Colonoscopy showed diffuse colitis in sigmoid descending colon. Patient refused EGD General surgery recommends conservative management unless symptoms are worsening Lactic acidemia, resolved Rhabdomyolysis resolved UTI, fungemia, possible endocarditis, septic shock Prolonged treatment has been successful, per ID fluconazole 800 mg daily B/L UE DVT Possible left common femoral vein DVT Left cephalic/basilic superficial and right superficial cephalic thrombus Continue enoxaparin 100 mg subcutaneous daily DVT prophylaxis Enoxaparin as above Discharge Planning awaiting authorization from Ezequiel Jernigan MD Sep 17, 2017 18:14
[2017-09-18] VITALS (9 sets, daily range): BP systolic 95–120; BP diastolic 53–71; PULSE 46–120; RESP 18–20; TEMP 97.3–98.3; O2SAT 93–100
[2017-09-18] MEDS: RESP: IPRATROPIUM 0.5 MG/2.5 ML NEB NEB SCH ×4 (03:51→20:34)
[2017-09-18] MEDS: CLOTRIMAZOLE 10 MG TROCHE BUCCAL SCH ×5 (04:52→22:40)
[2017-09-18] MEDS: DILTIAZEM HCL 90 MG TAB PO SCH ×4 (04:52→17:21)
[2017-09-18] MEDS: NYSTAT/DIPHENHY/LIDO MOUTHWASH (Adult) 120ML SWISH-SWAL SCH ×4 (08:00→22:39)
[2017-09-18] MEDS: FUROSEMIDE 20 MG/2 ML VIAL IV PUSH SCH ×2 (09:00→17:22)
[2017-09-18] MEDS: guaiFENesin E.R. 600 MG TAB PO SCH ×2 (09:00→22:49)
[2017-09-18] MEDS: FAMOTIDINE 20 MG TAB NG SCH ×2 (11:14→22:37)
[2017-09-18] MEDS: METOPROLOL TARTRATE 50 MG TAB PO SCH ×2 (11:14→21:00)
[2017-09-18] MEDS: cloNIDine HCL 0.2 MG TAB PO SCH ×3 (11:14→17:21)
[2017-09-18] MEDS: FLUCONAZOLE 200 MG TAB PO SCH (11:14)
[2017-09-18] MEDS: FOLIC ACID 1 MG TAB PO SCH (11:15)
[2017-09-18] MEDS: MULTIVITAMIN TAB PO SCH (11:15)
[2017-09-18] MEDS: ASPIRIN 81 MG CHEW TAB OG-TUBE SCH (11:15)
[2017-09-18] MEDS: THIAMINE HCL 100 MG TAB PO SCH (11:15)
[2017-09-18] MEDS: SODIUM CHLORIDE 0.9% FLUSH 10 ML FLUSH IV FLUSH SCH ×3 (11:16→22:41)
[2017-09-18] MEDS: DIGOXIN SOLUTION 0.125 MG/2.5 ML CUP PO SCH (11:17)
[2017-09-18] MEDS: FERROUS SULFATE 300 MG /5ML UDC PO SCH ×2 (11:18→22:37)
--- NOTE | 2017-09-18 13:00 | PD.CONS ---
History of Present Illness Consult Requested By Primary Care Physician Unknown Diagnoses: History of Present Illness 82 year old female with past medical history of hypertension, possible sleep apnea, chronic neck pain, sciatica, alcohol abuse, arthritis, chronic rectal prolapse with bowel incontinence and anxiety presented to ED after being found obtunded and covered in feces. Patient was admitted for severe dehydration, acute renal failure, rhabdomyolysis, lactic acidosis, possible UTI, sepsis. Recently extubated. Now diagnosed with fungemia. Pt states she does not have any change in her vision or floaters. Ocular history significant for cataract surgery OU. I was consulted to see the patient because she does have pulmonary effusions. The patient is not giving any information. She denied any shortness of breath to me when I talked to her. Of note this is clinical encounter took place on 09/17/2017. the notice being done on 09/18/2017 review of systems really not possible very well because of her Past Family Social History Allergies: Coded Allergies: No Known Allergies (Verified Allergy, Unknown, 08/15/17) Physical Exam Vital Signs Vital Signs Date Time Temp Pulse Resp B/P (MAP) Pulse Ox O2 Delivery O2 Flow Rate FiO2 09/18/17 08:34 99 Nasal Cannula 6.00 09/18/17 08:00 98.1 46 18 103/67 (79) 97 09/18/17 04:00 97.3 118 18 120/71 (87) 98 09/18/17 03:51 93 Nasal Cannula 6.00 09/18/17 00:00 94 Nasal Cannula 6.00 09/18/17 00:00 98.3 120 20 114/56 (75) 97 09/17/17 23:00 99 09/17/17 20:33 97 Nasal Cannula 6.00 09/17/17 20:00 95 Nasal Cannula 6.00 09/17/17 20:00 97.4 141 18 107/66 (80) 97 09/17/17 16:00 83 09/17/17 15:53 97.5 68 18 92/52 (65) 95 Physical Exam GENERAL: looks chronically ill, in no apparent distress. SKIN: No rashes, ecchymoses or lesions. Cool and dry. HEAD: Atraumatic. Normocephalic. No temporal or scalp tenderness. EYES: Pupils equal round and reactive. Extraocular motions intact. No scleral icterus. No injection or drainage. ENT: Nose without bleeding, purulent drainage or septal hematoma. Throat without erythema, tonsillar hypertrophy or exudate. Uvula midline. Airway patent. NECK: Trachea midline. No JVD or lymphadenopathy. Supple, nontender, no meningeal signs. CARDIOVASCULAR: Regular rate and rhythm without murmurs, gallops, or rubs. RESPIRATORY: mild basilar crackles and decreased breath sounds over the bases GASTROINTESTINAL: Abdomen soft, non-tender, nondistended. No hepato-splenomegaly , or palpable masses. No guarding. MUSCULOSKELETAL: Extremities without clubbing, cyanosis, or edema. No joint tenderness, effusion, or edema noted. No calf tenderness. Negative Homans sign bilaterally. NEUROLOGICAL: Awake and alert. Laboratory Date/Time Source Procedure Growth Status 08/29/17 17:23 Blood Peripheral Aerobic Blood Culture - Final NO GROWTH IN 5 DAYS Complete 08/29/17 17:23 Blood Peripheral Anaerobic Blood Culture - Final NO GROWTH IN 5 DAYS Complete 08/29/17 15:00 Fluid Pleural Fluid Fungal Smear - Final NO FUNGAL ELEMENTS SEEN. Resulted 08/29/17 15:00 Fluid Pleural Fluid Fungal Culture - Preliminary NO GROWTH IN 2 WEEKS Resulted 08/15/17 02:28 Stool Stool Stool Occult Blood ([facility]ARCIA) - Final HEMOCCULT NEGATIVE Complete 08/21/17 15:20 Sputum Endotracheal Gram Stain - Final Complete 08/21/17 15:20 Sputum Endotracheal Sputum Culture - Final NO GROWTH IN 48 HOURS. Complete 08/21/17 13:45 Urine Catheterized Urine Urine Culture - Final NO GROWTH IN 48 HOURS. Complete Result Diagram: 09/14/17 1633 09/17/17 0735 Assessment and Plan Assessment and Plan pleural effusion transudative COPD Volume overload I do believe she is stable from a pulmonary perspective. I would recommend to continue diuresing her to achieve negative balance about 500 to a 1000 cc per day. I would like to repeat her pro BNP. I will check procalcitonin level. I would like to continue to follow up the patient with you and make further recommendations as clinically indicated. thank you for this consultation. Reagan Weber MD Sep 18, 2017 13:00
[2017-09-18] MEDS: ENOXAPARIN SODIUM 100 MG/ML SYRINGE SQ SCH (13:08)
--- NOTE | 2017-09-18 16:28 | HHI.PR ---
Subjective Remarks Patient appears to be breathing more comfortably today. She is still intermittently confused according to her daughter. Her daughter is very involved in her care and the plan currently is to discharge her to [facility] until she has decreased need for respiratory therapy and transfer her back to [facility]. Patient tolerated catheter removal today. Daughter is concerned about Restoril not working at night for her insomnia. Objective Vitals Vital Signs Date Time Temp Pulse Resp B/P (MAP) Pulse Ox O2 Delivery O2 Flow Rate FiO2 09/18/17 12:00 98.2 119 18 95/54 (68) 98 09/18/17 08:34 99 Nasal Cannula 6.00 09/18/17 08:00 98.1 46 18 103/67 (79) 97 09/18/17 04:00 97.3 118 18 120/71 (87) 98 09/18/17 03:51 93 Nasal Cannula 6.00 09/18/17 00:00 94 Nasal Cannula 6.00 09/18/17 00:00 98.3 120 20 114/56 (75) 97 09/17/17 23:00 99 09/17/17 20:33 97 Nasal Cannula 6.00 09/17/17 20:00 95 Nasal Cannula 6.00 09/17/17 20:00 97.4 141 18 107/66 (80) 97 I/O 09/17/17 09/17/17 09/17/17 09/18/17 09/18/17 09/18/17 07:00 15:00 23:00 07:00 15:00 23:00 Intake Total 480 ml Output Total 3750 ml 1150 ml Balance -3750 ml -670 ml Intake Oral 480 ml Output Urine Total 3750 ml 1150 ml # Voids 3 # Bowel Movements 1 Result Diagram: 09/14/17 1633 09/17/17 0735 Objective Remarks GENERAL: Thin appearing patient SKIN: Warm and dry. HEAD: Normocephalic. EYES: No scleral icterus. No injection or drainage. NECK: Supple, trachea midline. No JVD or lymphadenopathy. CARDIOVASCULAR: Irregularly irregular heart rate, approximately 90 bpm, no murmur RESPIRATORY: Breath sounds most likely clear with scant scattered wheezing GASTROINTESTINAL: Abdomen soft, non-tender, nondistended. EXTREMITIES: No cyanosis, or edema. NEUROLOGICAL: Awake, alert, and oriented x 3. Non-focal. 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 Repeat EEG 08/21 Showed generalized slowing, no epileptiform features LP showed normal CSF Continue with PT and OT Appreciate neurology following Insomnia Restoril has not been helping her long enough at night to get good sleep Discontinue Restoril. Start trazodone 50 mg nightly. (She has used trazodone successfully in the past) Alcoholism ST elevation on arrival Continue thiamine, multivitamin, folic acid daily Acute respiratory failure, COPD Bilateral pleural effusions Status post bilateral CT-guided thoracentesis by IR on 08/29 with drainage of 500 cc of pleural fluid on right and 300 cc from left(transudative fluid) Thoracentesis wasn't done by IR on 09/04 as pleural effusion is too small per CT images. Repeated chest x-ray on 09/13 showed increase pleural effusion with bilateral interstitial infiltrate Continue prednisone 5 mg daily Continue on IV Lasix 20 mg q 12 Appreciate pulmonology consult Atrial fibrillation, NSTEMI, CHF Continue metoprolol tartrate 50mg Q12,, diltiazem 90 mg every 6 hours and digoxin 0.125 mg daily. Clonidine 0.2mg Q8 for blood pressure Repeat Echo showed EF 45-50%, Lateral leaflet mitral valve with a 2 mm mobile density, consistent with ? endocarditis Cardiology following, Dr. Myers. FERNANDO on hold for now given resp status unless recurrent blood culture positivity. Continue aspirin 81 mg by mouth daily/home medication BNP ordered for the a.m. Right-sided nephrolithiasis/nonobstructing, Dehydration/ARF Monitor renal function, intake and output and avoid nephrotoxins. Renal has followed-Dr. Figueroa, abdomen: No hydronephrosis CT Abd/pelvis revealed nonobstructing right-sided nephrolithiasis and left renal cyst. Patient tolerated Doe removal, now has external Doe, urinated 2-3 times since yesterday Ischemic colitis Now resolved Colonoscopy showed diffuse colitis in sigmoid descending colon. Patient refused EGD General surgery recommends conservative management unless symptoms are worsening Lactic acidemia, resolved Rhabdomyolysis resolved UTI, fungemia, possible endocarditis, septic shock Prolonged treatment has been successful, per ID fluconazole 800 mg daily B/L UE DVT Possible left common femoral vein DVT Left cephalic/basilic superficial and right superficial cephalic thrombus Continue enoxaparin 100 mg subcutaneous daily DVT prophylaxis Enoxaparin as above Discharge Planning Patient [facility] needs When patient is stable from a respiratory standpoint she may transfer to [facility] Timing of discharge is likely for tomorrow morning Ezequiel Wilson MD Sep 18, 2017 16:28
[2017-09-18] MEDS ORDERED: LORazepam 0.5 MG TAB PO PRN (16:30)
[2017-09-18] MEDS ORDERED: traZODone HCL 50 MG TAB PO SCH (21:00)
[2017-09-19] VITALS: BP 108/55; PULSE 111; PULSE 73; RESP 17; TEMP 97.4; O2SAT 97
[2017-09-19 04:00] VITALS: BP 122/71; PULSE 119; RESP 18; TEMP 98.7; O2SAT 94
[2017-09-19] MEDS: RESP: IPRATROPIUM 0.5 MG/2.5 ML NEB NEB SCH ×3 (04:00→15:24)
[2017-09-19] MEDS: RESP: IPRATROPIUM 0.5 MG/2.5 ML NEB NEB PRN (04:41)
[2017-09-19] MEDS: CLOTRIMAZOLE 10 MG TROCHE BUCCAL SCH ×3 (06:21→12:19)
[2017-09-19] MEDS: DILTIAZEM HCL 90 MG TAB PO SCH ×3 (06:21→12:00)
[2017-09-19 07:35] LABS: AUTOMATED NEUTROPHIL # 4.5 TH/MM3 (1.8-7.7); BASOPHIL % 0.4 % (0.0-2.0); EOSINOPHIL % 0.4 % (0.0-4.0); HEMATOCRIT 26.6 % (35.0-46.0); HEMOGLOBIN 8.9 GM/DL (11.6-15.3); LYMPH % 14.2 % (9.0-44.0); LYMPHOCYTE # 0.8 TH/MM3 (1.0-4.8); MEAN CELL VOLUME 94.3 FL (80.0-100.0); MEAN CORPUSCULAR HEMOGLOBIN 31.5 PG (27.0-34.0); MEAN CORPUSCULAR HGB CONC 33.4 % (32.0-36.0); MEAN PLATELET VOLUME 7.7 FL (7.0-11.0); MONO % 5.9 % (0.0-8.0); MONOCYTE # 0.3 TH/MM3 (0-0.9); NEUT % 79.1 % (16.0-70.0); PLATELET COUNT 225 TH/MM3 (150-450); RED BLOOD COUNT 2.82 MIL/MM3 (4.00-5.30); RED CELL DISTRIBUTION WIDTH 18.3 % (11.6-17.2); WHITE BLOOD COUNT 5.7 TH/MM3 (4.0-11.0)
[2017-09-19 07:51] LABS: BICARBONATE 32.3 MEQ/L (21.0-32.0); CALCIUM 8.2 MG/DL (8.5-10.1); CREATININE 0.34 MG/DL (0.50-1.00)
[2017-09-19 08:00] VITALS: BP 107/58; PULSE 82; RESP 18; TEMP 98.7; O2SAT 96
[2017-09-19] MEDS: cloNIDine HCL 0.2 MG TAB PO SCH ×3 (08:00→16:00)
[2017-09-19] MEDS: NYSTAT/DIPHENHY/LIDO MOUTHWASH (Adult) 120ML SWISH-SWAL SCH ×3 (08:00→17:00)
[2017-09-19] MEDS: guaiFENesin E.R. 600 MG TAB PO SCH (09:00)
[2017-09-19] MEDS: FOLIC ACID 1 MG TAB PO SCH (09:00)
[2017-09-19] MEDS: ASPIRIN 81 MG CHEW TAB OG-TUBE SCH (09:00)
[2017-09-19] MEDS: THIAMINE HCL 100 MG TAB PO SCH (09:00)
[2017-09-19] MEDS: FAMOTIDINE 20 MG TAB NG SCH (09:00)
[2017-09-19] MEDS: FUROSEMIDE 20 MG/2 ML VIAL IV PUSH SCH (09:00)
[2017-09-19] MEDS: SODIUM CHLORIDE 0.9% FLUSH 10 ML FLUSH IV FLUSH SCH ×2 (09:00)
[2017-09-19] MEDS: MULTIVITAMIN TAB PO SCH (09:00)
[2017-09-19] MEDS: METOPROLOL TARTRATE 50 MG TAB PO SCH (09:00)
[2017-09-19] MEDS: DIGOXIN SOLUTION 0.125 MG/2.5 ML CUP PO SCH (09:00)
[2017-09-19] MEDS: FLUCONAZOLE 200 MG TAB PO SCH (09:00)
[2017-09-19] MEDS ORDERED: POTASSIUM CHLORIDE 20 MEQ CONTROLLED RELEASE TAB PO ONE (09:00)
[2017-09-19] MEDS: FERROUS SULFATE 300 MG /5ML UDC PO SCH (09:00)
[2017-09-19 12:00] VITALS: BP 106/67; PULSE 88; RESP 18; TEMP 98.2; O2SAT 96
[2017-09-19] MEDS: ENOXAPARIN SODIUM 100 MG/ML SYRINGE SQ SCH (12:13)
[2017-09-19 15:24] VITALS: O2SAT 92
--- NOTE | 2017-09-19 15:32 | HHI.HCPN ---
Reason for visit a. To assist with evaluation and management of symptoms including: dyspnea, weakness, pain, anxiety. b. To assist medical decision maker(s) with: better understanding of current medical conditions; weighing benefits/burdens of medical treatment options; making medical treatment decisions. . Subjective/Interval History Patient seen and examined in ICU. Nicole Flores at bedside. Patient is awake and alert. Afebrile. Vital signs stable. On oxygen via NC, 4LPM. Clinical data: * Laboratory: WBC 5.7, hemoglobin 8.9, hematocrit 26.6, platelets 225. Potassium 2.7, creatinine 0.34, BNP 264. * No new imaging. * Speech therapy recommends thin liquids, mechanical soft diet. Dr. Weber has seen patient and has agreed to follow as outpatient and has cleared her for DC as her pulmonary status is stable. Plan for DC to [facility] in AM. . Family/friend interactions Spoke with Nicole flores at bedside. She is glad patient is ready for DC. . Advance Directives Living Will: Never completed Health Care Surrogate: Never completed Durable Power of Fishing Rod Trimmer: Never completed Advance Directive Specifics Health Care Surrogate(s): Living Will copy obtained. According to her Living Will she names daughterSilvia as primary HCS and son Jl Olson as alternate HCS. . Documented care wishes: Standard Living Will on chart. . Significant change in goals: FULL CODE. Goals remain aggressive. . Objective Vital Signs Date Time Temp Pulse Resp B/P (MAP) Pulse Ox O2 Delivery O2 Flow Rate FiO2 09/19/17 12:20 4.00 09/19/17 12:00 98.2 88 18 106/67 (80) 96 09/19/17 08:00 98.7 82 18 107/58 (74) 96 09/19/17 04:00 98.7 119 18 122/71 (88) 94 09/19/17 00:00 73 09/19/17 00:00 97.4 111 17 108/55 (72) 97 09/18/17 20:35 98 Nasal Cannula 4.00 09/18/17 20:23 96 Nasal Cannula 4.00 09/18/17 20:00 97.5 87 18 97/53 (68) 96 09/18/17 20:00 93 09/18/17 16:00 97.6 75 18 95/53 (67) 100 Intake & Output 09/19/17 09/19/17 07:00 19:00 Intake Total 238 ml Output Total 581 ml Balance -343 ml Intake Oral 238 ml Output Urine Total 581 ml # Bowel Movements 0 Physical Exam CONSTITUTIONAL/GENERAL: This is a frail, elderly, pale female, lying in bed. Falls off to sleep during visit. TUBES/LINES/DRAINS: NC SKIN: No jaundice, rashes, or lesions. Ecchymoses on upper extremities. Skin temperature appropriate. CARDIOVASCULAR: Irregularly irregular. RESPIRATORY/CHEST: Mildly labored respirations in NC. Diminished bilateral bases. scattered rhonchi. GASTROINTESTINAL: Abdomen soft, non distended, non tender. + bowel sounds. GENITOURINARY: Without palpable bladder distension. MUSCULOSKELETAL: Extremities with edema. Generalized weakness. moves all extremities. NEUROLOGICAL: Awake and alert. Follows commands. PSYCHIATRIC: denies anxiety during my visit, relief with Lorazepam. . Diagnostic Tests Laboratory Laboratory Tests Test 09/16/17 20:59 09/17/17 07:35 09/19/17 06:55 Blood Gas Puncture Site LT RADIAL Blood Gas Patient Temperature 98.6 Blood Gas HCO3 31 mmol/L (22-26) Blood Gas Base Excess 7.5 mmol/L (-2-2) Blood Gas Oxygen Saturation 97 % (90-100) Arterial Blood pH 7.50 (7.380-7.420) Arterial Blood Partial Pressure CO2 41 mmHg (38-42) Arterial Blood Partial Pressure O2 128 mmHg (61-120) Arterial Blood Oxygen Content 17.2 Vol % (12.0-20.0) Arterial Blood Carboxyhemoglobin 1.8 % (0-4) Arterial Blood Methemoglobin 0.7 % (0-2) Blood Gas Hemoglobin 12.5 G/DL (12.0-16.0) Oxygen Delivery Device BIPAP Blood Gas Inspired Oxygen 60 % Blood Urea Nitrogen 14 MG/DL (7-18) 13 MG/DL (7-18) Creatinine 0.40 MG/DL (0.50-1.00) 0.34 MG/DL (0.50-1.00) Random Glucose 95 MG/DL (74-106) 87 MG/DL (74-106) Calcium Level 8.0 MG/DL (8.5-10.1) 8.2 MG/DL (8.5-10.1) Sodium Level 139 MEQ/L (136-145) 137 MEQ/L (136-145) Potassium Level 3.2 MEQ/L (3.5-5.1) 2.7 MEQ/L (3.5-5.1) Chloride Level 98 MEQ/L (98-107) 97 MEQ/L (98-107) Carbon Dioxide Level 33.4 MEQ/L (21.0-32.0) 32.3 MEQ/L (21.0-32.0) Anion Gap 8 MEQ/L (5-15) 8 MEQ/L (5-15) Estimat Glomerular Filtration Rate 153 ML/MIN (>89) 184 ML/MIN (>89) White Blood Count 5.7 TH/MM3 (4.0-11.0) Red Blood Count 2.82 MIL/MM3 (4.00-5.30) Hemoglobin 8.9 GM/DL (11.6-15.3) Hematocrit 26.6 % (35.0-46.0) Mean Corpuscular Volume 94.3 FL (80.0-100.0) Mean Corpuscular Hemoglobin 31.5 PG (27.0-34.0) Mean Corpuscular Hemoglobin Concent 33.4 % (32.0-36.0) Red Cell Distribution Width 18.3 % (11.6-17.2) Platelet Count 225 TH/MM3 (150-450) Mean Platelet Volume 7.7 FL (7.0-11.0) Neutrophils (%) (Auto) 79.1 % (16.0-70.0) Lymphocytes (%) (Auto) 14.2 % (9.0-44.0) Monocytes (%) (Auto) 5.9 % (0.0-8.0) Eosinophils (%) (Auto) 0.4 % (0.0-4.0) Basophils (%) (Auto) 0.4 % (0.0-2.0) Neutrophils # (Auto) 4.5 TH/MM3 (1.8-7.7) Lymphocytes # (Auto) 0.8 TH/MM3 (1.0-4.8) Monocytes # (Auto) 0.3 TH/MM3 (0-0.9) Eosinophils # (Auto) 0.0 TH/MM3 (0-0.4) Basophils # (Auto) 0.0 TH/MM3 (0-0.2) CBC Comment DIFF FINAL Differential Comment B-Type Natriuretic Peptide 264 PG/ML (0-100) Result Diagram: 09/19/17 0655 09/19/17 0655 Microbiology Microbiology Date/Time Source Procedure Growth Status 08/29/17 17:23 Blood Peripheral Aerobic Blood Culture - Final NO GROWTH IN 5 DAYS Complete 08/29/17 17:23 Blood Peripheral Anaerobic Blood Culture - Final NO GROWTH IN 5 DAYS Complete 08/29/17 15:00 Fluid Pleural Fluid Fungal Smear - Final NO FUNGAL ELEMENTS SEEN. Resulted 08/29/17 15:00 Fluid Pleural Fluid Fungal Culture - Preliminary NO GROWTH IN 2 WEEKS Resulted 08/15/17 02:28 Stool Stool Stool Occult Blood (MARCIA) - Final HEMOCCULT NEGATIVE Complete 08/21/17 15:20 Sputum Endotracheal Gram Stain - Final Complete 08/21/17 15:20 Sputum Endotracheal Sputum Culture - Final NO GROWTH IN 48 HOURS. Complete 08/21/17 13:45 Urine Catheterized Urine Urine Culture - Final NO GROWTH IN 48 HOURS. Complete Imaging Last Impressions Chest X-Ray 09/16/17 0000 Signed Impressions: Service Date/Time: Saturday, September 16, 2017 20:06 - CONCLUSION: 1. Bilateral airspace disease and pleural effusions. No pneumothorax. Esau Martell MD Abdomen X-Ray 09/09/17 0000 Signed Impressions: Service Date/Time: Saturday, September 09, 2017 18:20 - CONCLUSION: Dobbhoff feeding tube is in the proximal duodenum. Adan Nunes MD Thoracentesis 09/04/17 0000 Signed Impressions: Service Date/Time: August 15:12 - CONCLUSION: 1. Small bilateral pleural effusions with concomitant atelectatic changes. 2. Fluid collections are too small to safely drain percutaneously with CT. Shashi Moreno MD Chest Ultrasound 09/04/17 0000 Signed Impressions: Service Date/Time: August 09:23 - CONCLUSION: Right pleural effusion as above. Shashi Moreno MD Chest CT 08/29/17 0000 Signed Impressions: Service Date/Time: Tuesday, August 29, 2017 14:48 - CONCLUSION: Following thoracentesis there is decreasing amount of effusion. Significant consolidation persists. There is no pneumothorax. Juan J Joel MD FACR Abdomen/Pelvis CT 08/23/17 1426 Signed Impressions: Service Date/Time: Wednesday, August 23, 2017 22:50 - CONCLUSION: 1. Suspected mild diffuse colitis, nonspecific but presumably infectious or inflammatory. No obstruction or abscess. 2. Trace ascites about the same there is worsening anasarca and worsening pleural effusions and consolidation of both lung bases. 3. Tiny nonobstructing stone of the right kidney and a generally benign appearing cyst lower pole the left kidney. No evidence of obstructive uropathy or other etiology for acute renal failure. 4. Atherosclerotic aorta. No aneurysm. Adan Nunes MD Upper Extremity Ultrasound 08/23/17 0000 Signed Impressions: Service Date/Time: Wednesday, August 23, 2017 16:25 - CONCLUSION: Bilateral upper extremity DVT as described above. Samuel Peralta MD Lower Extremity Ultrasound 08/23/17 0000 Signed Impressions: Service Date/Time: Wednesday, August 23, 2017 15:50 - CONCLUSION: 1. There is incomplete compression of the left common femoral vein raising suspicion for nonocclusive thrombus. This vessel, however, still demonstrates normal Doppler blood flow and respiratory variability. 2. The remaining veins of the left lower extremity are patent and the entire right lower extremity is patent without thrombus. Adan Machuca MD Lumbar Puncture Fluoroscopy 08/15/17 0000 Signed Impressions: Service Date/Time: Tuesday, August 15, 2017 15:36 - CONCLUSION: 1. Uncomplicated fluoroscopically guided lumbar puncture. 2. Please note, requested opening pressures were not obtained due to technical difficulties. Shashi Moreno MD Brain MRI 08/15/17 0000 Signed Impressions: Service Date/Time: Tuesday, August 15, 2017 16:57 - CONCLUSION: 1. 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 2. Mild stenosis in the upper cervical spine as above. Esau Martell MD Abdomen Ultrasound 08/15/17 0000 Signed Impressions: Service Date/Time: Tuesday, August 15, 2017 10:40 - CONCLUSION: 1. No abnormality is identified to explain the clinical symptoms. There is no hydronephrosis. 2. The liver is normal in size and echotexture. Adan Machuca MD Head CT 08/14/17 2462 Signed Impressions: Service Date/Time: July 22:54 - CONCLUSION: Unremarkable study. Josseline Villagomez MD Procedures * 08/25/17 - extubated. * 08/15/17-lumbar puncture by IR * 08/15/17 - right IJ central line, intubated. . Assessment and Plan Disease Oriented Problem List: (1) Acute respiratory failure Comment: now on NC (2) Tachycardia (3) Alcohol abuse (4) Atrial fibrillation Symptom Scale: (1) Pain 0-10 Scale: 0 (2) Dyspnea 0-10 Scale: 0 (3) Weakness 0-10 Scale: 0 Comment: continue PT/ OT Pertinent Non-Medical Issues Psychosocial: . Lives with Nicole flores. Has 3 daughters and 1 son. Spiritual: Catholic david. Legal: According to her Living Will she names daughterSilvia as primary HCS and son Jl Olson as alternate HCS. Ethical issues impacting care: No known concerns at this time. . Important Contacts * Silvia "Nicole" Toyb, daughter/ HCS: [phone] * Jl Olson, son/ alternate HCS: [phone] or [phone] * Jessica, daughter: [phone] * Chelsea, daughter: [phone] . Prognosis Ms. Olson is an 82 year old admitted with rhabdomyolysis, septic shock uncertain etiology, dehydration, renal failure. At this point we will need additional information to determine overall prognosis. Given her advanced age, she remain high risk for further setbacks or decline. . Code Status: Full Code Plan * Patient is capacitated to make her own health care decisions. According to her Living Will she names Silvia flores as primary HCS and son Jl Olson as alternate HCS. * FULL CODE. * Goals remain aggressive. Patient/ family hopes for continued aggressive care. Looking forward to going to [facility]. DC pending. * SYMPTOMS: Dyspnea: Medically extubated 08/25/17 am. Denies SOB on NC. Stable. Pain: potential include chronic neck pain, infection, prolonged hospital course and weakness. Has PRN Oxycodone and PRN Morphine none given since 09/15/17. Anxiety: PRN Lorazepam 0.25mg, 1 dose in the past 24 hours. Weakness: Continue PT/OT. Decreased appetite: improving. * Palliative care will continue to throughout hospital course to assist with clarification of goals. . Attestation To help prompt me to consider important information that might be impacting today's encounter and assessment, information from prior notes written by myself or my colleagues may have been "brought forward" into today's note. My signature on this note, however, is an attestation that I personally performed the exam, history, and/or decision-making noted today, and, unless otherwise indicated, the interactions with patient, family, and staff as well as the review of records all occurred today. I also attest that the listed assessment and stated plan reflect my best clinical judgment today based on the combination of historical information, prior notes, and today's exam/ interactions. When time spent is documented, it refers only to time spent today by the signer, or if indicated, combined time spent today by collaborating physician/nurse practitioner. Vashti Riley Sep 19, 2017 15:32
[2017-09-19] MEDS ORDERED: ASPI81 PO (15:46)
[2017-09-19] MEDS ORDERED: ENOX100P SQ (15:46)
[2017-09-19] MEDS ORDERED: CLON.2 PO (15:46)
[2017-09-19] MEDS ORDERED: DIFL200T PO (15:46)
[2017-09-19] MEDS ORDERED: guaiFENesin ER PO (15:46)
[2017-09-19] MEDS ORDERED: DILT90TA PO (15:46)
[2017-09-19] MEDS ORDERED: AMBI5TAB PO (15:46)
[2017-09-19] MEDS ORDERED: THERTAB15 PO (15:46)
[2017-09-19] MEDS ORDERED: LORA-392 PO (15:46)
[2017-09-19] MEDS ORDERED: OXYC-392 PO (15:46)
[2017-09-19] MEDS ORDERED: Ipratropium Bromide NEB (15:46)
[2017-09-19] MEDS ORDERED: DIGO0.12 PO (15:46)
--- NOTE | 2017-09-19 16:07 | HHI.DS ---
Discharge Summary Admission Date Aug 15, 2017 at 01:31 Discharge Date: Sep 19, 2017 Admitting Diagnosis AMS,RENAL FAILURE, EARLY RHABDO, NONSTEMI (1) Altered mental status ICD Code: R41.82 - Altered mental status, unspecified (2) Atrial fibrillation ICD Code: I48.91 - Unspecified atrial fibrillation (3) Acute renal failure ICD Code: N17.9 - Acute kidney failure, unspecified (4) Rhabdomyolysis ICD Code: M62.82 - Rhabdomyolysis Procedures Bilateral CT-Guided thoracentesis on August 29, 2017 Brief History - From Admission History from patient's daughter at the bedside, ER physician, interfere medical records. Patient's daughter went away for work out of town about 4 days ago. Usually patient lives with his daughter. She stated that patient was at her baseline on that day. Today when she came back from her trip, she found her mother in her bed, soaked in her feces. To the daughter, it looked as though the patient has been there for at least 1-2 days. Therefore she called ambulance. Daughter reported that the patient patient spoke to her although daughter on Friday and also on Friday to her son. Both times, patient was found in drank. Her 2 daughters at the bedside stated that this is patient's normal status. Whenever her daughter is out of town, she would binge drink. She was not complaining of any particular symptoms when she was on the phone with her son yesterday. Daughter also reported that patient usually gets copious diarrhea whenever she binge drinks. She does have history of irritable bowel syndrome per prior records on EMR. Patient's daughter stated that patient was prescribed Ambien about 3 weeks back. She however does not take it on a regular basis. She fears that the mother may have taken Ambien together with alcohol as well while she was away. Patient is also on Flexeril occasionally at home. She does have history of chronic neck pain and chronic sciatica. Possible sleep apnea per daughter as well. Patient is In the emergency room, patient is noted to be quite lethargic, not able to give any history at all. She is also snoring. However she is able to look into with great afterwards. She is moving her lower extremities spontaneously. CBC/BMP: 09/19/17 0655 09/19/17 0655 Significant Findings Laboratory Tests Test 09/16/17 20:59 09/17/17 07:35 09/19/17 06:55 Blood Gas HCO3 31 mmol/L (22-26) Blood Gas Base Excess 7.5 mmol/L (-2-2) Arterial Blood pH 7.50 (7.380-7.420) Arterial Blood Partial Pressure O2 128 mmHg (61-120) Creatinine 0.40 MG/DL (0.50-1.00) 0.34 MG/DL (0.50-1.00) Calcium Level 8.0 MG/DL (8.5-10.1) 8.2 MG/DL (8.5-10.1) Potassium Level 3.2 MEQ/L (3.5-5.1) 2.7 MEQ/L (3.5-5.1) Carbon Dioxide Level 33.4 MEQ/L (21.0-32.0) 32.3 MEQ/L (21.0-32.0) Red Blood Count 2.82 MIL/MM3 (4.00-5.30) Hemoglobin 8.9 GM/DL (11.6-15.3) Hematocrit 26.6 % (35.0-46.0) Red Cell Distribution Width 18.3 % (11.6-17.2) Neutrophils (%) (Auto) 79.1 % (16.0-70.0) Lymphocytes # (Auto) 0.8 TH/MM3 (1.0-4.8) Chloride Level 97 MEQ/L (98-107) B-Type Natriuretic Peptide 264 PG/ML (0-100) PE at Discharge GENERAL: Thin appearing patient SKIN: Warm and dry. HEAD: Normocephalic. EYES: No scleral icterus. No injection or drainage. NECK: Supple, trachea midline. No JVD or lymphadenopathy. CARDIOVASCULAR: Irregularly irregular heart rate, approximately 90 bpm, no murmur RESPIRATORY: Breath sounds most likely clear with scant scattered wheezing GASTROINTESTINAL: Abdomen soft, non-tender, nondistended. EXTREMITIES: No cyanosis, or edema. NEUROLOGICAL: Awake, alert, and oriented x 3. Non-focal. Hospital Course This is an 82-year-old female previously in good health who presented with altered mental status and respiratory distress. Initial workup revealed an NSTEMI and new onset of atrial fibrillation, in addition to COPD exacerbation and bilateral pleural effusions. She remained in the ICU for approximately 9 days. After improving she graduated from the ICU and came onto the medical floor where she was treated aggressively to bring her oxygen is above 92% using a BiPAP machine. This interfered with her sleep and when the daughter explained that she has low saturations at home due to her COPD the efforts were relaxed and she did fine on nasal cannula. She has remained generally weak, she is needing approximately 5 liters via nasal cannula of oxygen, and she has been too weak to participate very actively with physical therapy. She is still unable to walk. Other pertinent history includes urinary tract infection which was treated, treatment resulted in oral candidiasis which was also treated. 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 She also has, per daughter, history of binge drinking with evidence of slowing on her EEG that is consistent with prolonged alcohol use. We had a bee discussion about the consequences of drinking and the presence of atrial fibrillation and she has promised to stop drinking. She is beyond the point of withdrawal and has been managing her anxiety with Ativan. She also suffers from insomnia, Restoril use was unsuccessful as well as trazodone use. I recommended Ambien on a trial basis. After her prolonged stay she has developed pressure sores on her sacrum and buttocks. I recommended an air bed but has not been delivered here yet. She should have an air bed at the facility where she goes. She should also have daily wound care. She will need follow-up with both cardiology and pulmonology. When she regains some strength or rehab potential should be good based on her prior level of functioning. She is transferring to [facility], and [facility] when she [facility]. Her daughter is very involved in her care. She is stable for discharge. Pt Condition on Discharge: Fair Discharge Disposition: Discharge to SNF Discharge Time: > 30 minutes Discharge Instructions DIET: Follow Instructions for: Heart Healthy Diet Speech Therapy-Diet Recommends: Other Activities you can perform: Weight Bearing as Ezequiel Manrique MD Sep 19, 2017 16:07
--- NOTE | 2017-09-19 16:56 | PD.WCN.NOT ---
Wound Consult Description: Received consult for wound management of buttocks/ sacrum from Doctor Ezequiel Wilson Communicated with: ERIC Salgado and call placed to Doctor Ezequiel Wilson Recommendation: 1.Please cleanse buttock and perianal areas with Remedy barrier cloths and Apply thick layer of Calazime barrier cream over buttocks and perianal area including over open wounds BID and PRN. 2.Please leave open to air. 3.Turn patient every 2 hours and PRN for comfort and offloading of pressure from lisbeth prominences. 4. Please use ultrasorb pad only, do not use thick cloth pads. Additional Information: Patient seen on for evaluation of wound management of buttocks/sacrum. Patient was turned with the assistance of O.T., sql report writer and ERIC Salgado to reveal open wounds to bilateral buttock Wounds measure ~8cm x ~8cm x~0.2cm. Wound margins are jagged. Wounds are not located over lisbeth prominences. Periwound presents with blanchable erythema. All findings indicate wound etiology is moisture and not pressure. Wounds are full thickness with ~80% pink tissue and ~20% subcutaneous tissue visible. Wounds have no drainage or odor. Wounds were cleansed with normal saline.Patient is having uncontrollable loose stools. Patient was cleansed with Remedy barrier cream cloths, and then sql report writer applied thick layer of Calazime barrier cream over bilateral buttocks, perianal area, open wounds. Left areas noted open to air. Salud Mcgill [facility] Sep 19, 2017 16:56
[2017-09-19] MEDS ORDERED: ZOLPIDEM TARTRATE 5 MG TAB PO PRN (21:00)
== END 2017-09-19 19:30 | DRG 870 ==
LOC: NEPE 22:20 → NEDA 08-15 01:31 → HCIS 08-15 04:12 → HIME 08-15 05:40 → HIMN 08-18 13:00 → HIME 08-18 13:07 → N05B 09-16 12:02
PROVIDERS: ADMIT Family Medicine; ATTEND Family Medicine
PROC: 05HM33Z Insertion of Infusion Device into Right Internal Jugular Vein, Percutaneous Approach (ICD-10-PCS; principal; 2017-08-15)
PROC: 5A1955Z Respiratory Ventilation, Greater than 96 Consecutive Hours (ICD-10-PCS; 2017-08-15)
PROC: 03HY32Z Insertion of Monitoring Device into Upper Artery, Percutaneous Approach (ICD-10-PCS; 2017-08-15)
PROC: 4A133B1 Monitoring of Arterial Pressure, Peripheral, Percutaneous Approach (ICD-10-PCS; 2017-08-15)
PROC: 4A133J1 Monitoring of Arterial Pulse, Peripheral, Percutaneous Approach (ICD-10-PCS; 2017-08-15)
PROC: 0BH17EZ Insertion of Endotracheal Airway into Trachea, Via Natural or Artificial Opening (ICD-10-PCS; 2017-08-15)
PROC: 009U3ZX Drainage of Spinal Canal, Percutaneous Approach, Diagnostic (ICD-10-PCS; 2017-08-15)
PROC: 0BP1XDZ Removal of Intraluminal Device from Trachea, External Approach (ICD-10-PCS; 2017-08-18)
PROC: 0BH17EZ Insertion of Endotracheal Airway into Trachea, Via Natural or Artificial Opening (ICD-10-PCS; 2017-08-18)
PROC: 0DJD8ZZ Inspection of Lower Intestinal Tract, Via Natural or Artificial Opening Endoscopic (ICD-10-PCS; 2017-08-18)
PROC: 05HN33Z Insertion of Infusion Device into Left Internal Jugular Vein, Percutaneous Approach (ICD-10-PCS; 2017-08-24)
PROC: 0T9B70Z Drainage of Bladder with Drainage Device, Via Natural or Artificial Opening (ICD-10-PCS; 2017-08-27)
PROC: 30233N1 Transfusion of Nonautologous Red Blood Cells into Peripheral Vein, Percutaneous Approach (ICD-10-PCS; 2017-08-29)
PROC: 0W9B3ZZ Drainage of Left Pleural Cavity, Percutaneous Approach (ICD-10-PCS; 2017-08-29)
PROC: 0W993ZX Drainage of Right Pleural Cavity, Percutaneous Approach, Diagnostic (ICD-10-PCS; 2017-08-29)
PROC: 0W993ZZ Drainage of Right Pleural Cavity, Percutaneous Approach (ICD-10-PCS; 2017-09-04)
PROC: 0D9670Z Drainage of Stomach with Drainage Device, Via Natural or Artificial Opening (ICD-10-PCS; 2017-09-09)
PROC: 0T9B70Z Drainage of Bladder with Drainage Device, Via Natural or Artificial Opening (ICD-10-PCS; 2017-09-11)
DX: A41.9 Sepsis, unspecified organism (principal); I21.4 Non-ST elevation (NSTEMI) myocardial infarction; R65.21 Severe sepsis with septic shock; J96.01 Acute respiratory failure with hypoxia; I63.40 Cerebral infarction due to embolism of unspecified cerebral artery; G93.41 Metabolic encephalopathy; J69.0 Pneumonitis due to inhalation of food and vomit; E43 Unspecified severe protein-calorie malnutrition; K55.9 Vascular disorder of intestine, unspecified; N17.9 Acute kidney failure, unspecified; B49 Unspecified mycosis; B37.0 Candidal stomatitis; M62.82 Rhabdomyolysis; I50.20 Unspecified systolic (congestive) heart failure; E87.4 Mixed disorder of acid-base balance; N39.0 Urinary tract infection, site not specified; I82.C11 Acute embolism and thrombosis of right internal jugular vein; I82.623 Acute embolism and thrombosis of deep veins of upper extremity, bilateral; I82.412 Acute embolism and thrombosis of left femoral vein; J44.1 Chronic obstructive pulmonary disease with (acute) exacerbation; E87.0 Hyperosmolality and hypernatremia; F05 Delirium due to known physiological condition; J98.11 Atelectasis; I48.91 Unspecified atrial fibrillation; B37.7 Candidal sepsis; E86.0 Dehydration; I11.0 Hypertensive heart disease with heart failure; R06.83 Snoring; F41.9 Anxiety disorder, unspecified; M19.90 Unspecified osteoarthritis, unspecified site; K58.9 Irritable bowel syndrome, unspecified; M54.30 Sciatica, unspecified side; G89.29 Other chronic pain; G47.30 Sleep apnea, unspecified; Z87.891 Personal history of nicotine dependence; H91.90 Unspecified hearing loss, unspecified ear; Z51.5 Encounter for palliative care; Z74.01 Bed confinement status; R00.0 Tachycardia, unspecified; Z90.49 Acquired absence of other specified parts of digestive tract; Z90.710 Acquired absence of both cervix and uterus; Z87.19 Personal history of other diseases of the digestive system; Z86.010 Personal history of colon polyps; K62.3 Rectal prolapse; Z98.82 Breast implant status; N20.0 Calculus of kidney; R25.2 Cramp and spasm; R15.9 Full incontinence of feces; I05.9 Rheumatic mitral valve disease, unspecified; F10.20 Alcohol dependence, uncomplicated; E83.39 Other disorders of phosphorus metabolism; E87.6 Hypokalemia; L89.159 Pressure ulcer of sacral region, unspecified stage; I80.8 Phlebitis and thrombophlebitis of other sites; K64.4 Residual hemorrhoidal skin tags; K64.8 Other hemorrhoids; D64.9 Anemia, unspecified; N28.1 Cyst of kidney, acquired; R13.10 Dysphagia, unspecified; G47.00 Insomnia, unspecified; L89.329 Pressure ulcer of left buttock, unspecified stage; L89.319 Pressure ulcer of right buttock, unspecified stage
CPT/HCPCS: 31500; 32555; 36430; 36556; 36600; 51702; 62270; 70450; 70551; 71045; 71250; 74018; 74176; 76604; 76700; 76937; 77003; 80048; 80053; 80061; 80076; 80162; 80202; 80307; 81001; 82140; 82150; 82272; 82550; 82552; 82805; 82945; 82948; 83605; 83615; 83690; 83735; 83880; 83930; 83986; 84100; 84132; 84155; 84157; 84443; 84484; 85007; 85025; 85027; 85610; 85730; 86077; 86403; 86850; 86870; 86900; 86901; 86902; 86920; 86922; 87040; 87070; 87077; 87086; 87102; 87106; 87186; 87205; 87206; 87493; 87506; 87529; 87641; 88112; 89051; 93005; 93306; 93308; 93970; 94002; 94003; 94150; 94640; 94664; 94667; 94668; 95819; 96365; 96375; J0133; J0171; J0290; J0330; J0461; J0610; J0692; J0696; J1160; J1450; J1580; J1644; J1650; J1720; J1815; J1940; J2020; J2060; J2185; J2248; J2250; J2270; J2370; J2920; J2930; J3010; J3370; J3411; J3475; J3480; J7030; J7040; J7050; J7060; J7070; J7512; J7644; P9016; P9047; Q9963